=== PATIENT | female | born 1965 | race Caucasian/White ===

== ENCOUNTER 2024-08-16 13:36 | Emergency (ER) | payer OTHER, MEDICARE, SELFPAY ==
[2024-08-16 13:37] VITALS: BP 106/74; PULSE 87; RESP 20; TEMP 36.6; O2SAT 98
--- NOTE | 2024-08-16 13:55 | ED_ITS ---
HPI - Female Genitourinary General Chief complaint: Urogenital-Female Stated complaint: UTI Time Seen by Provider: 08/16/24 13:41 History of Present Illness HPI Narrative: 4 years old white female came from home by ambulance because of increased frequency of urination and not feeling well. She denies any fever, chills, nausea, vomiting, abdominal pain, chest pain or back pain. History of recurrent urinary tract infection, last 1 was 3 weeks ago. Related Data Home Medications Medication Instructions Recorded Confirmed Dexcom G7 Sensor 12/04/23 08/16/24 acetaminophen 500 mg tablet 500 mg PO Q4H PRN Mild Pain (Scale 12/04/23 08/16/24 Score 1-4) amlodipine 5 mg tablet 5 mg PO DAILY 12/04/23 12/04/23 apixaban 5 mg tablet 5 mg PO BID 12/04/23 08/16/24 aspirin 81 mg tablet,delayed 81 mg PO DAILY 12/04/23 08/16/24 release atorvastatin 20 mg tablet 20 mg PO DAILY 12/04/23 08/16/24 bisacodyl 10 mg rectal suppository 10 mg RECTAL DAILY PRN Constipation 12/04/23 08/16/24 calcium 500 mg (as 2 tablet PO BID 12/04/23 08/16/24 carbonate)-vitamin D3 5 mcg (200 unit) tablet (Calcium 500 + D) cyanocobalamin (vitamin B-12) 1,000 mcg IM MONTHLY 12/04/23 08/16/24 cyclobenzaprine 5 mg tablet 10 mg PO BID PRN Muscle Spasms 12/04/23 08/16/24 duloxetine 60 mg capsule,delayed 60 mg PO DAILY 12/04/23 08/16/24 release ergocalciferol (vitamin D2) 25,000 2 unit PO WEEKLY 12/04/23 08/16/24 unit capsule furosemide 20 mg tablet 20 mg PO DAILY 12/04/23 12/04/23 insulin glargine 100 unit/mL 30 unit subcut HS 12/04/23 08/16/24 subcutaneous solution insulin lispro 100 unit/mL 7 unit subcut TIDWMEAL 12/04/23 08/16/24 subcutaneous solution levothyroxine 125 mcg tablet 125 mcg PO DAILY 12/04/23 08/16/24 naloxone 4 mg/actuation nasal spray 1 spray intranasal Q3M PRN Opioid 12/04/23 08/16/24 Reversal omeprazole 20 mg capsule,delayed 20 mg PO DAILY 12/04/23 12/04/23 release potassium chloride 20 mEq 20 meq PO DAILY 12/04/23 08/16/24 tablet,extended release pregabalin 75 mg capsule 75 mg PO BID 12/04/23 08/16/24 rizatriptan 10 mg tablet 10 mg PO ONCE PRN Migraine Headache 12/04/23 08/16/24 ropinirole 0.25 mg tablet 0.25 mg PO DAILY 12/04/23 08/16/24 sacubitril 24 mg-valsartan 26 mg 1 tablet PO BID 12/04/23 08/16/24 tablet (Entresto) white petrolatum-mineral oil eye 1 applic EACH EYE HS 12/04/23 08/16/24 ointment Allergies Allergy/AdvReac Type Severity Reaction Status Date / Time acetaminophen Allergy Vomiting Verified 08/16/24 13:43 baclofen Allergy Nausea Verified 08/16/24 13:43 nitrofurantoin Allergy Nausea and Verified 08/16/24 13:43 Vomiting prochlorperazine Allergy Unknown Verified 08/16/24 13:43 propoxyphene Allergy Vomiting Verified 08/16/24 13:43 Sulfa (Sulfonamide Allergy Other Verified 08/16/24 13:43 Antibiotics) sulfanilamide Allergy Unknown Verified 08/16/24 13:43 sumatriptan Allergy Diarrhea Verified 08/16/24 13:43 tizanidine Allergy Hallucinati Verified 08/16/24 13:43 ng tramadol Allergy Unknown Verified 08/16/24 13:43 trazodone Allergy Other Verified 08/16/24 13:43 amitriptyline AdvReac Nightmare Verified 08/16/24 13:43 REPLACED BY [facility] Social History Social History Smoking status: Former smoker Tobacco type: cigarettes Second hand tobacco smoke exposure: No Alcohol intake: former Substance use type: prescription drug Do You Feel Safe in your Home?: Yes Lack of Transportation: No Lack of Food: Never True Current Housing: I Have Housing Concerned About Future Housing: No Difficulty Paying Gas/Electric Bills: No Difficulty Paying for Meds: No Currently Unemployed: No Education: High School Diploma/GED Difficulty w/ Childcare or Family Care: No Spiritual care concerns: No Course Vital Signs Vital signs: Vital Signs Temperature 36.6 C 08/16/24 13:37 Pulse Rate 87 08/16/24 13:37 Respiratory Rate 20 08/16/24 13:37 Blood Pressure 106/74 08/16/24 13:37 Pulse Oximetry 98 08/16/24 13:37 Oxygen Delivery Nasal Cannula 08/16/24 13:37 Oxygen Flow Rate 2 08/16/24 13:37 Temperature 36.6 C 08/16/24 13:37 Pulse Rate 87 08/16/24 13:37 Respiratory Rate 20 08/16/24 13:37 Blood Pressure 106/74 08/16/24 13:37 Pulse Oximetry 98 08/16/24 13:37 Oxygen Delivery Nasal Cannula 08/16/24 13:37 Oxygen Flow Rate 2 08/16/24 13:37 MDM - Female Genitourinary MDM Narrative Medical decision making narrative: patient presents with frequent urination, no nausea or vomiting or fever Vital signs on arrival are stable Physical examination is insignificant Differential diagnosis urinary tract infection Urinalysis came back positive for urinary tract infection, patient received Cipro 500 mg p.o. prior to discharge, discharged on Cipro 500 b.i.d. for 5 days. The pt was discharged to home.the pt,s condition upon discharge was fair,education was provided to the pt in reference to the final impression,discharge study results,treatment,prognosis and need for follow up . Differential Diagnosis Differential diagnosis: Likely other (As above) Medical Records Attestation: I reviewed the patient's medical records. Lab Data Attestation: I reviewed the patient's lab results. Labs: Lab Results 08/16/24 Range/Units 14:14 Urine Color Light yellow (Yellow) Urine Appearance Clear (Clear) Urine pH 6.0 (5.0-8.0) Ur Specific [place] <= 1.005 L (1.010-1.020) Urine Protein Negative (Negative) Urine Glucose (UA) 3+ H (Negative) Urine Ketones Negative (Negative) Ur Blood (Man) Negative (Negative) Urine Nitrate Positive H (Negative) Urine Bilirubin Negative (Negative) Urine Urobilinogen 0.2 (0.2-1.0) mg/dL Leukocyte Esterase Rfl Negative (Negative) ADELA/UL Urine RBC None seen (0-2) /hpf Urine WBC 4-6 H (0-3) /hpf Ur Squamous Epith Cells Few (Few) /hpf Urine Bacteria 3+ H (None) /hpf Critical Care Time Critical Care Time Critical Care Time: No Discharge Plan Discharge Clinical Impression: Urinary tract infection Patient Disposition: Home, Self-Care Condition: Stable Instructions: Antibiotic Form, Acute Urinary Retention in Women (ED) Additional Instructions: Return if symptoms are worsening , call your family physician for appointment, take Tylenol as as needed for aches and pain, continue home medications. Do not to remove your oxygen supplement during walking to the bathroom Prescriptions: New ciprofloxacin HCl [Cipro] 500 mg tablet 500 mg PO Q12H Qty: 10 0RF No Action atorvastatin 20 mg Tablet 20 mg PO DAILY insulin glargine 100 unit/mL Solution 30 unit SUBCUT HS white petrolatum-mineral oil Ointment 1 applic EACH EYE HS rizatriptan 10 mg Tablet 10 mg PO ONCE MDD 30mg PRN (Reason: Migraine Headache) Rx Instructions: as a single dose. May repeat in 2 hours if unresolved. amlodipine 5 mg Tablet 5 mg PO DAILY aspirin 81 mg Tablet,Delayed Release (Dr/Ec) 81 mg PO DAILY acetaminophen 500 mg Tablet 500 mg PO Q4H PRN (Reason: Mild Pain (Scale Score 1-4)) ropinirole 0.25 mg Tablet 0.25 mg PO DAILY bisacodyl 10 mg Suppository 10 mg RECTAL DAILY PRN (Reason: Constipation) levothyroxine 125 mcg Tablet 125 mcg PO DAILY omeprazole 20 mg Capsule,Delayed Release(Dr/Ec) 20 mg PO DAILY furosemide 20 mg Tablet 20 mg PO DAILY insulin lispro 100 unit/mL Solution 7 unit SUBCUT TIDWMEAL Rx Instructions: sliding scale ergocalciferol (vitamin D2) 25,000 unit Capsule 2 unit PO WEEKLY cyclobenzaprine 5 mg Tablet 10 mg PO BID PRN (Reason: Muscle Spasms) duloxetine 60 mg Capsule,Delayed Release(Dr/Ec) 60 mg PO DAILY calcium carbonate-vitamin D3 [Calcium 500 + D] 500 mg-5 mcg (200 unit) Tablet 2 tablet PO BID pregabalin 75 mg Capsule 75 mg PO BID apixaban 5 mg Tablet 5 mg PO BID potassium chloride 20 mEq Tablet Extended Release 20 meq PO DAILY Entresto 24-26 mg Tablet 1 tablet PO BID naloxone 4 mg/actuation [place],Non-Aerosol 1 spray INTRANASAL Q3M PRN (Reason: Opioid Reversal) Rx Instructions: spray 1 dose into ONE nostril; alternate nostrils w each dose until help arrives cyanocobalamin (vitamin B-12) 1,000 mcg IM MONTHLY (DME) Dexcom G7 Sensor Rx Instructions: Change every 10 days lidocaine [Lidocaine Pain Relief] 4 % Adhesive Patch,Medicated 1 patch transdermal DAILY Qty: 0 0RF docusate sodium 100 mg Capsule 100 mg PO Q12HR Qty: 0 0RF ondansetron 4 mg Tablet,Disintegrating 4 mg PO Q6H PRN (Reason: Nausea And Vomiting) Qty: 0 0RF fentanyl 75 mcg/hr Patch 72 Hour 1 patch TRANSDERMAL Q72H Qty: 5 0RF Rx Instructions: quantity: five (5) oxycodone 5 mg Tablet 15 mg PO Q6H PRN (Reason: Severe Pain (Scale Score 7-10)) Qty: 20 0RF Rx Instructions: quantity: twenty (20) Follow-up/Referrals: Lis,MD Juni [Primary Care Provider] -
[2024-08-16 14:23] LABS: Add Urine Microscopic? YES; Appearance Urine Clear (Clear); Bilirubin Urine Negative (Negative); Blood Urine Negative (Negative); Color Urine Light Yellow (Yellow); Glucose Urine UA 3+ (Negative); Ketones Urine Negative (Negative); Leukocyte Esterase Ur Negative LEU/UL (Negative); Nitrate Urine Positive (Negative); Protein Urine Negative (Negative); Specific Grav Ur <= 1.005 (1.010-1.020); Urobilinogen Urine 0.2 mg/dL (0.2-1.0)
[2024-08-16 14:27] LABS: RBC Urine None seen /hpf (0-2)
[2024-08-16 14:28] LABS: Bacteria Urine 3+ /hpf; Squamous Epithelial Cell Urine Few /hpf (Few)
[2024-08-16] MEDS: CIPROFLOXACIN 500 MG TAB PO (14:57)
[2024-08-16 14:58] VITALS: BP 105/83; PULSE 96; RESP 18; TEMP 36.7; O2SAT 98
--- NOTE | 2024-08-18 12:40 | PC.NURSE ---
preliminary urine culture result Isolate 1: Greater than 100,000 CFU/ml of Klebsiella aerogenes (Enterobacter) per Dr. Mortensen to await C&S
--- NOTE | 2024-08-19 13:08 | PC.NURSE ---
ucc reviewed. pt started on cipro , no changes needed per dr cobos
== END 2024-08-16 15:00 | disposition home or self-care (01) ==
PROVIDERS: Emergency Provider Emergency Medicine; PCP Internal Medicine
DX: N39.0 Urinary tract infection, site not specified (principal); Z87.891 Personal history of nicotine dependence
CPT/HCPCS: 81001; 87077; 87086; 87088; 87186; 99283; A9270

== ENCOUNTER 2024-08-22 12:10 | Emergency (ER) | payer OTHER, MEDICARE, SELFPAY ==
[2024-08-22] VITALS (50 sets, daily range): BP systolic 90–126; BP diastolic 65–109; PULSE 85–108; RESP 13–32; TEMP 36.4–36.6; O2SAT 97–100
--- NOTE | ~2024-08-22 | CT_ITS ---
Non-contrast Head CT History: Weakness COMPARISON: 10/31/2020 Technique: Axial non-contrast imaging of the brain was performed. Dose reduction technique was used on this scan by utilizing automated exposure control and iterative reconstruction technique. The dose -length product (DLP) was 605.33 mGy-cm. Findings: There is no evidence of intracranial hemorrhage, mass lesion, or acute infarct. Brain par enchyma appears normal. The ventricles and subarachnoid spaces are normal in size. The calvarium ap pears normal. The visualized paranasal sinuses and mastoid air cells are clear. Impression: No significant abnormality seen. Reviewed, dictated and finalized at location . [facility] Impression: No significant abnormality seen.
--- NOTE | ~2024-08-22 | XR_ITS ---
Portable chest x-ray Comparison: 10/04/2022 Clinical History: Cough, weakness Findings: Low lung volumes. No definite acute pulmonary abnormality. Cardiomediastinal silhouette i s stable, with pacemaker device. There is multilevel vertebroplasty throughout the thoracic spine. Th ere is thoracolumbar spinal fixation hardware. Impression: Clear lungs. Extensive thoracolumbar spinal fixation hardware, an apparent multilevel vertebroplasty throughout th e mid to lower thoracic spine. Reviewed, dictated and finalized at location M. OND SORTER Impression: Clear lungs. Extensive thoracolumbar spinal fixation hardware, an apparent multilevel verteb roplasty throughout the mid to lower thoracic spine.
--- NOTE | 2024-08-22 12:15 | ECG_ITS ---
Test Date: 2024-08-22 12:45:08 Measurements Intervals [place] Rate: 89 P: 21 PA: 130 QRS: -8 QRSD: 83 T: 56 QT: 347 QTc: 424 Interpretive Statements SINUS RHYTHM WITH OCCASIONAL SUPRAVENTRICULAR PREMATURE COMPLEXES VOLTAGE CRITERIA FOR LVH NONSPECIFIC T-WAVE ABNORMALITY- DIFFUSE LEADS BASELINE ARTIFACT- I, II, III, AVR, AVL, AVF BORDERLINE ECG No previous ECG available for comparison Electronically Signed On 08-22-2024 18:24:16 PATTERN CHART WRITER by Rafat Cruz D.O.
--- NOTE | 2024-08-22 12:15 | ED_ITS ---
HPI - General Adult General Chief complaint: Weakness Stated complaint: weak, sob Time Seen by Provider: 08/22/24 12:14 History of Present Illness HPI narrative: Daisy is a 58F with a PMH of DMII, osteoporosis, GERD, HypoT, HLD, HTN, Afib, CHF s/p ICD on chronic oxygen, compression fracture neuroendocrine tumor in the liver, recent right hip fracture, and a recent UTI that presented to the ED via EMS with weakness. She woke up with general fatigue, weakness and had some nausea. She just finished her antibiotics for her UTI. No CP or lightheadedness. She also started a new pain patch today as well. Related Data Home Medications Medication Instructions Recorded Confirmed Dexcom G7 Sensor 12/04/23 08/22/24 acetaminophen 500 mg tablet 500 mg PO Q4H PRN Mild Pain (Scale 12/04/23 08/22/24 Score 1-4) amlodipine 5 mg tablet 5 mg PO DAILY 12/04/23 08/22/24 apixaban 5 mg tablet 5 mg PO BID 12/04/23 08/22/24 aspirin 81 mg tablet,delayed 81 mg PO DAILY 12/04/23 08/22/24 release atorvastatin 20 mg tablet 20 mg PO DAILY 12/04/23 08/22/24 bisacodyl 10 mg rectal suppository 10 mg RECTAL DAILY PRN Constipation 12/04/23 08/22/24 calcium 500 mg (as 2 tablet PO BID 12/04/23 08/22/24 carbonate)-vitamin D3 5 mcg (200 unit) tablet (Calcium 500 + D) cyanocobalamin (vitamin B-12) 1,000 mcg IM MONTHLY 12/04/23 08/22/24 cyclobenzaprine 5 mg tablet 10 mg PO BID PRN Muscle Spasms 12/04/23 08/22/24 duloxetine 60 mg capsule,delayed 60 mg PO DAILY 12/04/23 08/22/24 release ergocalciferol (vitamin D2) 25,000 2 unit PO WEEKLY 12/04/23 08/22/24 unit capsule furosemide 20 mg tablet 20 mg PO DAILY 12/04/23 08/22/24 insulin glargine 100 unit/mL 30 unit subcut HS 12/04/23 08/22/24 subcutaneous solution insulin lispro 100 unit/mL 7 unit subcut TIDWMEAL 12/04/23 08/22/24 subcutaneous solution levothyroxine 125 mcg tablet 125 mcg PO DAILY 12/04/23 08/22/24 naloxone 4 mg/actuation nasal spray 1 spray intranasal Q3M PRN Opioid 12/04/23 08/22/24 Reversal omeprazole 20 mg capsule,delayed 20 mg PO DAILY 12/04/23 08/22/24 release potassium chloride 20 mEq 20 meq PO DAILY 12/04/23 08/22/24 tablet,extended release pregabalin 75 mg capsule 75 mg PO BID 12/04/23 08/22/24 rizatriptan 10 mg tablet 10 mg PO ONCE PRN Migraine Headache 12/04/23 08/22/24 ropinirole 0.25 mg tablet 0.25 mg PO DAILY 12/04/23 08/22/24 sacubitril 24 mg-valsartan 26 mg 1 tablet PO BID 12/04/23 08/22/24 tablet (Entresto) white petrolatum-mineral oil eye 1 applic EACH EYE HS 12/04/23 08/22/24 ointment Allergies Allergy/AdvReac Type Severity Reaction Status Date / Time acetaminophen Allergy Vomiting Verified 08/22/24 12:26 baclofen Allergy Nausea Verified 08/22/24 12:26 nitrofurantoin Allergy Nausea and Verified 08/22/24 12:26 Vomiting prochlorperazine Allergy Unknown Verified 08/22/24 12:26 propoxyphene Allergy Vomiting Verified 08/22/24 12:26 Sulfa (Sulfonamide Allergy Other Verified 08/22/24 12:26 Antibiotics) sulfanilamide Allergy Unknown Verified 08/22/24 12:26 sumatriptan Allergy Diarrhea Verified 08/22/24 12:26 tizanidine Allergy Hallucinati Verified 08/22/24 12:26 ng tramadol Allergy Unknown Verified 08/22/24 12:26 trazodone Allergy Other Verified 08/22/24 12:26 amitriptyline AdvReac Nightmare Verified 08/22/24 12:26 Review of Systems Review of Systems: All systems reviewed & are unremarkable except as noted in HPI and below [facility] Social History Social History Smoking status: Former smoker Tobacco type: cigarettes Second hand tobacco smoke exposure: No Alcohol intake: former Substance use type: prescription drug Do You Feel Safe in your Home?: Yes Lack of Transportation: No Lack of Food: Never True Current Housing: I Have Housing Concerned About Future Housing: No Difficulty Paying Gas/Electric Bills: No Difficulty Paying for Meds: No Currently Unemployed: No Education: High School Diploma/GED Difficulty w/ Childcare or Family Care: No Spiritual care concerns: No Exam Const: General: cooperative, healthy appearing, comfortable, no acute distress, well developed, alert, awake and Physically active Orientation/consciousness: oriented to person, oriented to place and oriented to time HENMT: Head: normal to inspection, normocephalic and atraumatic Ears: hearing grossly normal bilaterally and external ears normal Face/Nose/Sinus: Normal external nose present Eyes: General: appearance normal, both eyes and all related structures Periorbital: periorbital findings normal Sclera: sclerae normal Pupils: Equal, round and reactive pupils present Neck: Neck: normal visual inspection Chest: Chest palpation & inspection: normal inspection of the chest Resp: Effort & Inspection: normal respiratory effort, able to speak in complete sentences and no respiratory distress Auscultation: clear to auscultation bilaterally Cardio: Jugular venous distension: no JVD Rate: regular rate Rhythm: regular rhythm GI: Inspection: normal to inspection GI Palp: Yes Soft to palpation Auscultation: normal bowel sounds Skin: General skin exam: normal color and no rashes or lesions noted Neuro: General: oriented to person, oriented to place and oriented to time Cranial nerves: Yes Equal, round and reactive pupils present Extrem: General: normal to inspection Course Course Emergency Course: EKG showed NSR with a rate of 89, LAD, poor T wave progression and frequent PVC Portable chest x-ray Comparison: 10/04/2022 Clinical History: Cough, weakness Findings: Low lung volumes. No definite acute pulmonary abnormality. Cardiomediastinal silhouette is stable, with pacemaker device. There is mul tilevel vertebroplasty throughout the thoracic spine. There is thoracolumbar spinal fixation hardware. Impression: Clear lungs. Extensive thoracolumbar spinal fixation hardware, an apparent multilevel vertebroplasty throughout the mid to lower thoracic spine. Non-contrast Head CT History: Weakness COMPARISON: 10/31/2020 Technique: Axial non-contrast imaging of the brain was performed. Dose redu ction technique was used on this scan by utilizing automated exposure control and iterative reconstruction technique. The dose-length product (DLP) was 605.33 mGy-cm. Findings: There is no evidence of intracranial hemorrhage, mass lesion, or acute infarct. Brain parenchyma appears normal. The ventricles and subarachnoid spaces are normal in size. The calvarium appears normal. The visualized paranasal sinuses and mastoid air cells are clear. Impression: No significant abnormality seen. Discussed case with Dr. Lambert at 1520. He wants to contact cardiology for accepting as well as discuss fluids with lactic acidosis vs elevated BNP/troponin. They later called back and stated they accepted the patient. Patients glucose dropped to 80 and she started to experience signs of hypoglycemia so D5 was started. She was transferred to [facility] for Cardiology and a higher level of care. Vital Signs Vital signs: Vital Signs Temperature 97.6 F 08/22/24 12:22 Pulse Rate 88 08/22/24 12:22 Respiratory Rate 21 H 08/22/24 12:22 Blood Pressure 90/78 L 08/22/24 12:22 Pulse Oximetry 98 08/22/24 12:22 Oxygen Delivery Nasal Cannula 08/22/24 12:22 Oxygen Flow Rate 3 08/22/24 12:22 Temperature 97.8 F 08/22/24 19:15 Pulse Rate 108 H 08/22/24 22:00 Respiratory Rate 16 08/22/24 19:59 Blood Pressure 110/91 H 08/22/24 19:15 Pulse Oximetry 98 08/22/24 19:59 Oxygen Delivery Nasal Cannula 08/22/24 19:15 Oxygen Flow Rate 3 08/22/24 19:15 Medical Decision Making Vital Signs Vital Signs: Vital Signs Temperature 97.6 F 08/22/24 12:22 Pulse Rate 88 08/22/24 12:22 Respiratory Rate 21 H 08/22/24 12:22 Blood Pressure 90/78 L 08/22/24 12:22 Pulse Oximetry 98 08/22/24 12:22 Oxygen Delivery Nasal Cannula 08/22/24 12:22 Oxygen Flow Rate 3 08/22/24 12:22 Temperature 97.8 F 08/22/24 19:15 Pulse Rate 108 H 08/22/24 22:00 Respiratory Rate 16 08/22/24 19:59 Blood Pressure 110/91 H 08/22/24 19:15 Pulse Oximetry 98 08/22/24 19:59 Oxygen Delivery Nasal Cannula 08/22/24 19:15 Oxygen Flow Rate 3 08/22/24 19:15 Lab Data 08/22/24 12:51 08/22/24 12:51 Labs: Lab Results 08/22/24 08/22/24 08/22/24 Range/Units 12:51 17:03 18:16 WBC 10.6 (4.8-10.8) K/mm3 RBC 4.43 (4.20-5.40) M/mm3 Hgb 8.9 L (12.0-15.0) g/dL Hct 33.4 L (35.0-49.0) % MCV 75.4 L (78.0-102.0) fL MCH 20.1 L (27.0-31.0) pg MCHC 26.6 L (32-36) g/dL RDW 20.6 H (11.6-14.4) % Plt Count 578 H (150-420) K/mm3 MPV 9.4 (9.2-11.8) fl Immature Gran % (Auto) 2.1 H (0.0-0.0) % Neut % (Auto) 73.8 H (50.0-70.0) % Lymph % (Auto) 14.2 L (18.0-42.0) % Lewis % (Auto) 8.8 (2.0-11.0) % Eos % (Auto) 0.6 L (1.0-6.0) % Baso % (Auto) 0.5 (0.0-1.0) % Lymph # (Auto) 1.50 (1.10-4.50) K/mm3 Lewis # (Auto) 0.93 H (0.10-0.90) K/mm3 Eos # (Auto) 0.06 (0.02-0.50) K/mm3 Baso # (Auto) 0.05 (0.00-0.10) K/mm3 Abs Immat Gran (auto) 0.22 H (0.00-0.00) K/mm3 Absolute Neuts (auto) 7.84 H (1.70-7.20) K/mm3 Absolute Nucleated RBC 0.12 H (0.00-0.00) K/mm3 Nucleated RBC % 1.1 H (0-0.0) % % Immature Plt Fraction 2.8 (1.0-7.0) % Sodium 147 H (136-145) mmol/L Potassium 3.7 (3.5-5.1) mmol/L Chloride 105 (98-108) mmol/L Carbon Dioxide 33 H (21-32) mmol/L Anion Gap 9 (4-12) mmol/L BUN 18 (7-18) mg/dL Creatinine 0.71 (0.55-1.02) mg/dL Estim Creat Clear Calc 60 ml/min Estimated GFR > 60 (59 - ) Glucose 147 H (70-99) mg/dL POC Capillary Glucose 87 (65-105) mg/dl Calculated Osmolality 308 H (285-295) mOsm/kg Lactic Acid 3.0 H 2.0 (0.4-2.0) mmol/L Calcium 9.0 (8.5-10.1) mg/dL Magnesium 2.2 (1.8-2.4) mg/dL Total Bilirubin 0.4 (0.00-1.00) mg/dL AST 11 L (15-37) U/L ALT 32 (14-59) U/L Alkaline Phosphatase 108 (46-116) U/L Troponin I 126.8 H* (0.00-60.4) ng/L NT-Pro-B Natriuret Pep 1683 H (0-125) pg/mL Total Protein 6.7 (6.4-8.2) g/dL Albumin 3.7 (3.4-5.0) g/dL TSH 0.13 L (0.36-3.74) uIU/mL Urine Color Light yellow (Yellow) Urine Appearance Cloudy A (Clear) Urine pH 7.0 (5.0-8.0) Ur Specific [place] 1.010 (1.010-1.020) Urine Protein Negative (Negative) Urine Glucose (UA) 3+ H (Negative) Urine Ketones Negative (Negative) Ur Blood (Man) Negative (Negative) Urine Nitrate Negative (Negative) Urine Bilirubin Negative (Negative) Urine Urobilinogen 0.2 (0.2-1.0) mg/dL Leukocyte Esterase Rfl 1+ H (Negative) ADELA/UL Urine WBC 7-9 H (0-3) /hpf Urine WBC Clumps Present H (None) /hpf Ur Squamous Epith Cells Few (Few) /hpf Amorphous Sediment Moderate H (None) Urine Bacteria 1+ H (None) /hpf Influenza A (RT-PCR) Negative (Negative) Influenza B (RT-PCR) Negative (Negative) RSV (RT-PCR) Negative (Negative) SARS-CoV-2 RNA (RT-PCR) Negative (Negative) 08/22/24 Range/Units 21:59 WBC (4.8-10.8) K/mm3 RBC (4.20-5.40) M/mm3 Hgb (12.0-15.0) g/dL Hct (35.0-49.0) % MCV (78.0-102.0) fL MCH (27.0-31.0) pg MCHC (32-36) g/dL RDW (11.6-14.4) % Plt Count (150-420) K/mm3 MPV (9.2-11.8) fl Immature Gran % (Auto) (0.0-0.0) % Neut % (Auto) (50.0-70.0) % Lymph % (Auto) (18.0-42.0) % Lewis % (Auto) (2.0-11.0) % Eos % (Auto) (1.0-6.0) % Baso % (Auto) (0.0-1.0) % Lymph # (Auto) (1.10-4.50) K/mm3 Lewis # (Auto) (0.10-0.90) K/mm3 Eos # (Auto) (0.02-0.50) K/mm3 Baso # (Auto) (0.00-0.10) K/mm3 Abs Immat Gran (auto) (0.00-0.00) K/mm3 Absolute Neuts (auto) (1.70-7.20) K/mm3 Absolute Nucleated RBC (0.00-0.00) K/mm3 Nucleated RBC % (0-0.0) % % Immature Plt Fraction (1.0-7.0) % Sodium (136-145) mmol/L Potassium (3.5-5.1) mmol/L Chloride (98-108) mmol/L Carbon Dioxide (21-32) mmol/L Anion Gap (4-12) mmol/L BUN (7-18) mg/dL Creatinine (0.55-1.02) mg/dL Estim Creat Clear Calc ml/min Estimated GFR (59 - ) Glucose (70-99) mg/dL POC Capillary Glucose 105 (65-105) mg/dl Calculated Osmolality (285-295) mOsm/kg Lactic Acid (0.4-2.0) mmol/L Calcium (8.5-10.1) mg/dL Magnesium (1.8-2.4) mg/dL Total Bilirubin (0.00-1.00) mg/dL AST (15-37) U/L ALT (14-59) U/L Alkaline Phosphatase (46-116) U/L Troponin I (0.00-60.4) ng/L NT-Pro-B Natriuret Pep (0-125) pg/mL Total Protein (6.4-8.2) g/dL Albumin (3.4-5.0) g/dL TSH (0.36-3.74) uIU/mL Urine Color (Yellow) Urine Appearance (Clear) Urine pH (5.0-8.0) Ur Specific [place] (1.010-1.020) Urine Protein (Negative) Urine Glucose (UA) (Negative) Urine Ketones (Negative) Ur Blood (Man) (Negative) Urine Nitrate (Negative) Urine Bilirubin (Negative) Urine Urobilinogen (0.2-1.0) mg/dL Leukocyte Esterase Rfl (Negative) ADELA/UL Urine WBC (0-3) /hpf Urine WBC Clumps (None) /hpf Ur Squamous Epith Cells (Few) /hpf Amorphous Sediment (None) Urine Bacteria (None) /hpf Influenza A (RT-PCR) (Negative) Influenza B (RT-PCR) (Negative) RSV (RT-PCR) (Negative) SARS-CoV-2 RNA (RT-PCR) (Negative) Discharge Plan Discharge Clinical Impression: Non-ST elevation MN (NSTEMI) Patient Disposition: Acute Care Hospital Condition: Serious Prescriptions: No Action ciprofloxacin HCl [Cipro] 500 mg tablet 500 mg PO Q12H Qty: 10 0RF atorvastatin 20 mg Tablet 20 mg PO DAILY insulin glargine 100 unit/mL Solution 30 unit SUBCUT HS white petrolatum-mineral oil Ointment 1 applic EACH EYE HS rizatriptan 10 mg Tablet 10 mg PO ONCE MDD 30mg PRN (Reason: Migraine Headache) Rx Instructions: as a single dose. May repeat in 2 hours if unresolved. amlodipine 5 mg Tablet 5 mg PO DAILY aspirin 81 mg Tablet,Delayed Release (Dr/Ec) 81 mg PO DAILY acetaminophen 500 mg Tablet 500 mg PO Q4H PRN (Reason: Mild Pain (Scale Score 1-4)) ropinirole 0.25 mg Tablet 0.25 mg PO DAILY bisacodyl 10 mg Suppository 10 mg RECTAL DAILY PRN (Reason: Constipation) levothyroxine 125 mcg Tablet 125 mcg PO DAILY omeprazole 20 mg Capsule,Delayed Release(Dr/Ec) 20 mg PO DAILY furosemide 20 mg Tablet 20 mg PO DAILY insulin lispro 100 unit/mL Solution 7 unit SUBCUT TIDWMEAL Rx Instructions: sliding scale ergocalciferol (vitamin D2) 25,000 unit Capsule 2 unit PO WEEKLY cyclobenzaprine 5 mg Tablet 10 mg PO BID PRN (Reason: Muscle Spasms) duloxetine 60 mg Capsule,Delayed Release(Dr/Ec) 60 mg PO DAILY calcium carbonate-vitamin D3 [Calcium 500 + D] 500 mg-5 mcg (200 unit) Tablet 2 tablet PO BID pregabalin 75 mg Capsule 75 mg PO BID apixaban 5 mg Tablet 5 mg PO BID potassium chloride 20 mEq Tablet Extended Release 20 meq PO DAILY Entresto 24-26 mg Tablet 1 tablet PO BID naloxone 4 mg/actuation [place],Non-Aerosol 1 spray INTRANASAL Q3M PRN (Reason: Opioid Reversal) Rx Instructions: spray 1 dose into ONE nostril; alternate nostrils w each dose until help arrives cyanocobalamin (vitamin B-12) 1,000 mcg IM MONTHLY (DME) Dexcom G7 Sensor Rx Instructions: Change every 10 days lidocaine [Lidocaine Pain Relief] 4 % Adhesive Patch,Medicated 1 patch transdermal DAILY Qty: 0 0RF docusate sodium 100 mg Capsule 100 mg PO Q12HR Qty: 0 0RF ondansetron 4 mg Tablet,Disintegrating 4 mg PO Q6H PRN (Reason: Nausea And Vomiting) Qty: 0 0RF fentanyl 75 mcg/hr Patch 72 Hour 1 patch TRANSDERMAL Q72H Qty: 5 0RF Rx Instructions: quantity: five (5) oxycodone 5 mg Tablet 15 mg PO Q6H PRN (Reason: Severe Pain (Scale Score 7-10)) Qty: 20 0RF Rx Instructions: quantity: twenty (20) Follow-up/Referrals: Lis,MD Juni [Primary Care Provider] -
--- NOTE | 2024-08-22 12:20 | PC.NURSE ---
Patient has pain patch on left shoulder of buprenorphine 10mcg/hr, ERP made aware, asked for it to be removed. RN has removed patch and disposed of appropriately.
--- NOTE | 2024-08-22 12:27 | PC.NURSE ---
Patient being taken to CT.
[2024-08-22 13:03] LABS: Basophils Absolute Auto 0.05 K/mm3 (0.00-0.10); Basophils Percent Auto 0.5 % (0.0-1.0); Eosinophils Absolute Auto 0.06 K/mm3 (0.02-0.50); Eosinophils Percent Auto 0.6 % (1.0-6.0); Hematocrit 33.4 % (35.0-49.0); Hemoglobin 8.9 g/dL (12.0-15.0); Immature Granulocyte Absolute 0.22 K/mm3 (0.00-0.00); Immature Granulocyte Percent A 2.1 % (0.0-0.0); Immature Platelet Fraction Pct 2.8 % (1.0-7.0); Lymphocytes Percent Auto 14.2 % (18.0-42.0); Mean Corpuscular HGB Conc 26.6 g/dL (32-36); Mean Corpuscular Hemoglobin 20.1 pg (27.0-31.0); Mean Corpuscular Volume 75.4 fL (78.0-102.0); Mean Platelet Volume 9.4 fl (9.2-11.8); Monocytes Absolute Auto 0.93 K/mm3 (0.10-0.90); Monocytes Percent Auto 8.8 % (2.0-11.0); Neutrophils Absolute Auto 7.84 K/mm3 (1.70-7.20); Neutrophils Percent Auto 73.8 % (50.0-70.0); Nucleated Red Blood Cells Absolute Auto 0.12 K/mm3 (0.00-0.00); Nucleated Red Blood Cells Perc 1.1 % (0-0.0); Platelet Count Result 578 K/mm3 (150-420); Red Blood Count 4.43 M/mm3 (4.20-5.40); Red Cell Distribution Width 20.6 % (11.6-14.4); White Blood Count 10.6 K/mm3 (4.8-10.8)
--- NOTE | 2024-08-22 13:04 | PC.NURSE ---
lab did covid culture swab
[2024-08-22 13:15] LABS: Add Urine Microscopic? YES; Bilirubin Urine Negative (Negative); Blood Urine Negative (Negative); Color Urine Light Yellow (Yellow); Glucose Urine UA 3+ (Negative); Ketones Urine Negative (Negative); Leukocyte Esterase Ur 1+ LEU/UL (Negative); Nitrate Urine Negative (Negative); Protein Urine Negative (Negative); Urobilinogen Urine 0.2 mg/dL (0.2-1.0)
[2024-08-22 13:24] LABS: Appearance Urine Cloudy (Clear); Squamous Epithelial Cell Urine Few /hpf (Few); WBC Clumps Urine Present /hpf
[2024-08-22 13:25] LABS: Amorphous Sediment Urine Moderate; Bacteria Urine 1+ /hpf
[2024-08-22 13:33] LABS: Alanine Aminotransferase 32 U/L (14-59); Albumin Level 3.7 g/dL (3.4-5.0); Alkaline Phosphatase 108 U/L (46-116); Anion Gap 9 mmol/L (4-12); Aspartate Amino Transferase 11 U/L (15-37); Bilirubin,Total 0.4 mg/dL (0.00-1.00); Blood Urea Nitrogen 18 mg/dL (7-18); Carbon Dioxide 33 mmol/L (21-32); Chloride 105 mmol/L (98-108); Estimated CRCL calculation 60 ml/min; Estimated Glomerular Filt Rate > 60; Glucose 147 mg/dL (70-99); Magnesium 2.2 mg/dL (1.8-2.4); NT Pro B Type Natriuretic Pept 1683 pg/mL (0-125); Osmolality Calculated 308 mOsm/kg (285-295); Potassium 3.7 mmol/L (3.5-5.1); Sodium 147 mmol/L (136-145); Thyroid Stimulating Hormone 0.13 uIU/mL (0.36-3.74); Total Protein 6.7 g/dL (6.4-8.2)
[2024-08-22 13:35] LABS: Troponin I 126.8 ng/L (0.00-60.4)
[2024-08-22 13:38] LABS: SARS-CoV-2 RNA PCR Negative (Negative)
[2024-08-22 13:42] LABS: Influenza A QL RT-PCR Negative (Negative); Influenza B QL RT-PCR Negative (Negative); RSV RNA, RT-PCR Negative (Negative)
[2024-08-22] MEDS: MIDODRINE HCL 2.5 MG TABLET 10 MG PO (14:05)
[2024-08-22 15:57] LABS: Reflex Lactic Acid Yes or No Add Lactic
[2024-08-22] MEDS: DEXTROSE 5% 1,000 ML 1,000 ML 100 ML IV CONT (17:56)
[2024-08-22] MEDS: oxyCODONE HCL (*CRX) 5 MG TAB IR PO ×2 (18:10→21:18)
[2024-08-22 18:19] LABS: Glucose Point of Care 87 mg/dl (65-105)
--- NOTE | 2024-08-22 19:15 | PC.NURSE ---
This RN completed hand off assessment of patient. Patient states that she is comfortable at this time, still feels icky and not well, but denies chest pain at this time. at bedside. Both were updated on plan of care and on waiting on bed assignment from [facility].
--- NOTE | 2024-08-22 20:58 | PC.NURSE ---
Spoke to pt's daughter, Ana De León . Gave her pt update. Told her pt was being transfered to [facility].
[2024-08-22 22:01] LABS: Glucose Point of Care 105 mg/dl (65-105)
--- NOTE | 2024-08-25 12:57 | PC.NURSE ---
spoke with omari at [facility] [place] [place] , informed of urine culture final result. result faxed to [facility] [place] [place] per request [phone]
== END 2024-08-22 22:40 | disposition short-term general hospital (02) ==
PROVIDERS: Emergency Provider Family Medicine; PCP Internal Medicine
DX: I21.4 Non-ST elevation (NSTEMI) myocardial infarction (principal); E11.9 Type 2 diabetes mellitus without complications; I11.0 Hypertensive heart disease with heart failure; I50.9 Heart failure, unspecified; E78.5 Hyperlipidemia, unspecified; I48.91 Unspecified atrial fibrillation; Z99.81 Dependence on supplemental oxygen; Z79.899 Other long term (current) drug therapy; Z79.4 Long term (current) use of insulin; Z87.891 Personal history of nicotine dependence; Z20.822 Contact with and (suspected) exposure to COVID-19
CPT/HCPCS: 36415; 70450; 71045; 80053; 81001; 82948; 83605; 83735; 83880; 84443; 84484; 85025; 85055; 87086; 87637; 93005; 96365; 96366; 99285; A9270; J7070

== ENCOUNTER 2024-08-30 14:04 | Inpatient (IN) | payer OTHER, MEDICARE, SELFPAY ==
[2024-08-30] VITALS (7 sets, daily range): BP systolic 117–128; BP diastolic 75–89; PULSE 45–95; RESP 16–18; TEMP 36–36.3; O2SAT 97–99; BMI 23.3
--- NOTE | 2024-08-30 14:26 | PC.NURSE ---
Patient arrived to unit in /, accompanied by patient's . Patient sent here from [facility] in [place] for swing bed program. Patient admitted to room 204 and was able to transfer from / to bed with 1 assist gaitbelt and walker. Patient and her educated on use of call light, bed controls, visiting hours, initiation of rapid response and general hospital policies. Both voiced understanding.
[2024-08-30 16:30] LABS: Glucose Point of Care 280 mg/dl (65-105)
--- NOTE | 2024-08-30 16:55 | PC.NURSE ---
Patient called telegraphic typewriter installer to the room stating that she is having chest pain. Pulse was irregular between 84 and 91, with known history of Afib. BP was 107/65. Patient was in no apparent distress and rated pain at 3 of 10. Quality Assurance Intern reassured patient that nurse didn't see anything alarming in VS and patient stated that the pain was already getting better. Will continue to monitor.
[2024-08-30] MEDS: ACETAMINOPHEN 325 MG TABLET 650 MG PO ×2 (17:23→23:23)
[2024-08-30 17:55] LABS: INR 2.7; Prothrombin Time 26.8 Seconds (9.50-12.1)
[2024-08-30] MEDS: PREGABALIN (*CRX) 50 MG CAPSULE PO (18:11)
[2024-08-30] MEDS: PREGABALIN (*CRX) 25 MG CAPSULE PO (18:12)
[2024-08-30] MEDS: PANTOPRAZOLE 40 MG TABLET PO (18:12)
[2024-08-30] MEDS: oxyCODONE HCL (*CRX) 5 MG TAB IR 10 MG PO ×2 (18:12→23:24)
[2024-08-30] MEDS: WARFARIN (*PBKC) 2 MG TABLET PO (18:38)
[2024-08-30] MEDS: SACUBITRIL/VALSARTAN 24-26 MG TABLET 1 TAB PO (21:14)
[2024-08-30] MEDS: rOPINIRole HCL 0.25 MG TABLET PO (21:15)
[2024-08-30] MEDS: CYCLOBENZAPRINE HCL 10 MG TABLET PO (21:15)
[2024-08-30 21:19] LABS: Glucose Point of Care 246 mg/dl (65-105)
[2024-08-31] MEDS: oxyCODONE HCL (*CRX) 5 MG TAB IR 10 MG PO ×5 (03:28→21:20)
[2024-08-31 05:02] VITALS: O2SAT 98
[2024-08-31] MEDS: ACETAMINOPHEN 325 MG TABLET 650 MG PO ×3 (05:31→17:00)
[2024-08-31] MEDS: LEVOTHYROXINE SODIUM 25 MCG TABLET PO (05:32)
[2024-08-31] MEDS: LEVOTHYROXINE SODIUM 100 MCG TABLET PO (05:33)
[2024-08-31 05:35] LABS: Hematocrit 29.6 % (35.0-49.0); Hemoglobin 7.8 g/dL (12.0-15.0); Mean Corpuscular HGB Conc 26.4 g/dL (32-36); Mean Corpuscular Hemoglobin 19.5 pg (27.0-31.0); Mean Platelet Volume 9.1 fl (9.2-11.8); Platelet Count Result 462 K/mm3 (150-420); Red Cell Distribution Width 19.6 % (11.6-14.4); White Blood Count 11.2 K/mm3 (4.8-10.8)
[2024-08-31 05:48] LABS: INR 2.4; Partial Thromboplastin Time 32.2 Sec (23.9-30.70); Prothrombin Time 24.5 Seconds (9.50-12.1)
[2024-08-31 05:50] LABS: Alanine Aminotransferase 63 U/L (14-59); Albumin Level 3.7 g/dL (3.4-5.0); Alkaline Phosphatase 110 U/L (46-116); Anion Gap 7 mmol/L (4-12); Aspartate Amino Transferase 26 U/L (15-37); Bilirubin,Total 0.5 mg/dL (0.00-1.00); Blood Urea Nitrogen 16 mg/dL (7-18); Calcium 8.7 mg/dL (8.5-10.1); Carbon Dioxide 34 mmol/L (21-32); Chloride 104 mmol/L (98-108); Estimated CRCL calculation 65 ml/min; Estimated Glomerular Filt Rate > 60; Glucose 286 mg/dL (70-99); Magnesium 2.3 mg/dL (1.8-2.4); Osmolality Calculated 311 mOsm/kg (285-295); Potassium 3.6 mmol/L (3.5-5.1); Sodium 145 mmol/L (136-145)
[2024-08-31 07:34] LABS: Glucose Point of Care 229 mg/dl (65-105)
[2024-08-31 07:43] VITALS: BP 121/83; PULSE 51; RESP 16; TEMP 36.2; O2SAT 97
--- NOTE | 2024-08-31 07:43 | P.HP_ITS ---
H&P: HPI History of Present Illness Date/Time: 08/31/24 07:43 Chief Complaint: weakness Narrative: This is a 58-year-old female with a past medical history significant for CHF, dilated cardiomyopathy, status post ICD placement, atrial fibrillation on Coumadin, CAD, hypertension, hyperlipidemia, GERD, continue esophagitis, anxiety, diabetes, neuroendocrine tumor of the liver, hypertension, and hypothyroidism who presented to an emergency room on 08/21 with complaints of shortness a breath. She was found have elevated troponin, BNP, and lactate and was [place] [facility] [place]. During that hospitalization it was found that she was taking dual beta-blockers ( Lopressor and Coreg). She was also found to have a severely reduced ejection fraction of 15-20% ( decreased from 33%). Cardiology felt that this was most likely advanced or stage D CHF. She had an angiogram in with only 20% circumflex lesion and no current clinical signs of ischemia this admission so therefore an angiogram was deferred. They recommended medical management with Entresto, Jardiance, and Lasix. Echo also showed an apical thrombus that developed while taking Eliquis. Patient was transitioned to warfarin via Lovenox bridge. During her hospitalization she worked with PT and OT who recommended further therapy services for weakness, balance and gait training. Because of this she was transferred to [facility] for swing bed therapy for further PT and OT with the discharge plan of returning home. On exam today she is on her baseline oxygen with her baseline dyspnea. She denies headache, dizziness, chest pain, abdominal pain, nausea, vomiting, or constipation. No subjective complaints of fever, chills, or body aches. She has irritable bowel syndrome. She has lower extremity edema. She says she is due for a vitamin B12 shot now. She has an ever so slightly increase white blood cell count of 11.2 (WBC 10.6 on 08/22) which will be monitored. She also has a chronic anemia with a stable hemoglobin of 7.8 g/dl. [facility] Past Medical History Medical History Anxiety Arthritis Atrial fib/flutter, transient CAD (coronary artery disease) Cardiomyopathy Cervical vertebral fusion C5-6 CHF (congestive heart failure) Chronic pain Chronic respiratory failure on 3 l nc Depression Diabetes GERD (gastroesophageal reflux disease) Hyperlipidemia Hypertension Hypothyroidism IBS (irritable bowel syndrome) ICD (implantable cardioverter-defibrillator) battery depletion Liver cancer no treatment, follows at u Migraine BI (obstructive sleep apnea) Osteoporosis RLS (restless legs syndrome) Surgical History Surgical History H/O breast biopsy H/O kyphoplasty 05/2023, 07/2023, 11/2023 H/O partial thyroidectomy H/O: hysterectomy History of carpal tunnel release History of cholecystectomy History of hip surgery History of liver biopsy Previous back surgery Social History Social History Smoking packs per day: 2 Smoking cigarettes per day: 40.0 Years smoked: 5 Smoking pack-years: 10.00 Smoking status: Former smoker Tobacco type: cigarettes Second hand tobacco smoke exposure: No Smoking end date: 08/30/24 Alcohol intake: never Substance use: never Substance use type: does not use Do You Feel Safe in your Home?: Yes Lack of Transportation: No Lack of Food: Never True Current Housing: I Have Housing Concerned About Future Housing: No Difficulty Paying Gas/Electric Bills: No Difficulty Paying for Meds: No Currently Unemployed: No Education: High School Diploma/GED Difficulty w/ Childcare or Family Care: No Spiritual care concerns: No Meds Home Medications and Allergies Home Medications Medication Instructions Recorded Confirmed Type Dexcom G7 Sensor 12/04/23 08/30/24 History aspirin 81 mg tablet,delayed 81 mg PO DAILY 12/04/23 08/30/24 History release atorvastatin 20 mg tablet 20 mg PO DAILY 12/04/23 08/30/24 History bisacodyl 10 mg rectal suppository 10 mg RECTAL DAILY PRN Constipation 12/04/23 08/30/24 History cyanocobalamin (vitamin B-12) 1,000 mcg IM MONTHLY 12/04/23 08/30/24 History cyclobenzaprine 5 mg tablet 10 mg PO TID PRN Muscle Spasms 12/04/23 08/30/24 History duloxetine 60 mg capsule,delayed 60 mg PO DAILY 12/04/23 08/30/24 History release ergocalciferol (vitamin D2) 25,000 2 unit PO WEEKLY 12/04/23 08/30/24 History unit capsule insulin glargine 100 unit/mL 25 unit subcut QAM 12/04/23 08/30/24 History subcutaneous solution insulin lispro 100 unit/mL 5 unit subcut TIDWMEAL 12/04/23 08/30/24 History subcutaneous solution levothyroxine 125 mcg tablet 125 mcg PO DAILY 12/04/23 08/30/24 History naloxone 4 mg/actuation nasal spray 1 spray intranasal Q3M PRN Opioid 12/04/23 08/30/24 History Reversal potassium chloride 20 mEq 20 meq PO DAILY 12/04/23 08/30/24 History tablet,extended release pregabalin 75 mg capsule 75 mg PO BID 12/04/23 08/30/24 History rizatriptan 10 mg tablet 10 mg PO ONCE PRN Migraine Headache 12/04/23 08/30/24 History ropinirole 0.25 mg tablet 0.25 mg PO HS 12/04/23 08/30/24 History sacubitril 24 mg-valsartan 26 mg 1 tablet PO BID 12/04/23 08/30/24 History tablet (Entresto) ondansetron 4 mg disintegrating 4 mg PO Q6H PRN Nausea And 12/15/23 08/30/24 Rx tablet Vomiting #0 tabs Anusol-HC 25 mg RECTAL DAILY PRN Hemorrhoids 08/30/24 08/30/24 History acetaminophen 325 mg tablet 650 mg PO Q6H Fever Or Pain 08/30/24 08/30/24 History alendronate 70 mg tablet 70 mg PO WEEKLY 08/30/24 08/30/24 History artifi.tears(hypromellose)(PF) 0.3 2 drp EACH EYE TID PRN Dry Eye(S) 08/30/24 08/30/24 History % eye drops bisacodyl 5 mg tablet,delayed 10 mg PO DAILY PRN Constipation 08/30/24 08/30/24 History release buprenorphine 10 mcg/hour weekly 1 patch transdermal Q7D 08/30/24 08/30/24 History transdermal patch calcium carbonate 1,000 mg PO TID 08/30/24 08/30/24 History empagliflozin 10 mg tablet 10 mg PO DAILY 08/30/24 08/30/24 History furosemide 40 mg tablet 40 mg PO DAILY 08/30/24 08/30/24 History hydrocortisone 2.5 % topical cream 1 applic RECTAL QID PRN Hemorrhoids 08/30/24 08/30/24 History with perineal applicator metformin 1,000 mg tablet 1,000 mg PO DAILY 08/30/24 08/30/24 History metoprolol tartrate 25 mg tablet 12.5 mg PO BID 08/30/24 08/30/24 History midodrine 10 mg tablet 10 mg PO TID 08/30/24 08/30/24 History oxycodone 5 mg tablet 10 mg PO Q4H PRN Pain 08/30/24 08/30/24 History pantoprazole 40 mg tablet,delayed 40 mg PO BID 08/30/24 08/30/24 History release sodium chloride 0.65 % nasal spray 2 spray intranasal Q2H PRN Dry 08/30/24 08/30/24 History aerosol (Saline Nasal) Nasal Passages warfarin 1 mg tablet 1.5 mg PO WEEKLY 08/30/24 08/30/24 History warfarin 2 mg tablet 2 mg PO DAILY 08/30/24 08/30/24 History Allergies Allergy/AdvReac Type Severity Reaction Status Date / Time acetaminophen Allergy Vomiting Verified 08/22/24 12:26 baclofen Allergy Nausea Verified 08/22/24 12:26 nitrofurantoin Allergy Nausea and Verified 08/22/24 12:26 Vomiting prochlorperazine Allergy Unknown Verified 08/22/24 12:26 propoxyphene Allergy Vomiting Verified 08/22/24 12:26 Sulfa (Sulfonamide Allergy Other Verified 08/22/24 12:26 Antibiotics) sulfanilamide Allergy Unknown Verified 08/22/24 12:26 sumatriptan Allergy Diarrhea Verified 08/22/24 12:26 tizanidine Allergy Hallucinati Verified 08/22/24 12:26 ng tramadol Allergy Unknown Verified 08/22/24 12:26 trazodone Allergy Other Verified 08/22/24 12:26 amitriptyline AdvReac Nightmare Verified 08/22/24 12:26 Vital Signs Vital Signs - 24 hr 08/30/24 15:01 08/30/24 14:15 08/30/24 16:00 Temperature 96.9 F L 96.8 F L Pulse Rate 81 81 95 Respiratory Rate 16 16 16 Blood Pressure 117/87 128/89 Pulse Oximetry 99 99 97 Oxygen Delivery Nasal Cannula Nasal Cannula Nasal Cannula Oxygen Flow Rate 2 2 2 08/30/24 17:10 08/30/24 21:15 08/30/24 23:42 Temperature 97.4 F L Pulse Rate 95 45 L 78 Respiratory Rate 16 18 Blood Pressure 121/75 Pulse Oximetry 97 98 Oxygen Delivery Nasal Cannula Nasal Cannula Oxygen Flow Rate 2 2 08/30/24 14:15 08/30/24 15:43 Temperature 96.9 F L Pulse Rate 81 Respiratory Rate 16 Blood Pressure 117/87 Pulse Oximetry 99 99 Oxygen Delivery Nasal Cannula Oxygen Flow Rate 2 Exam Narrative: General: appears comfortable, in no acute distress on 3 L NC. Respiratory: breathing is unlabored with even chest rise/fall, lungs are clear without wheezing, rhonchi, and crackles Cardiovascular: Rate and rhythm regular, normal s1s2, no murmur Abdomen: Soft, round, non-tender, active bowel sounds Extremities: No cyanosis, +1-2 BLE edema left right worse than left, no clubbing. Pulses 2/2 Neuro: A&O x 4 Skin: Warm, dry, intact H&P: Results Labs Labs: Short CBC 08/31/24 Range/Units 05:29 WBC 11.2 H (4.8-10.8) K/mm3 Hgb 7.8 L (12.0-15.0) g/dL Hct 29.6 L (35.0-49.0) % Plt Count 462 H (150-420) K/mm3 BMP 08/31/24 05:29 Sodium 145 Potassium 3.6 Chloride 104 Carbon Dioxide 34 H BUN 16 Creatinine 0.65 Glucose 286 H Calcium 8.7 Liver Function 08/31/24 Range/Units 05:29 Total Bilirubin 0.5 (0.00-1.00) mg/dL AST 26 (15-37) U/L ALT 63 H (14-59) U/L Alkaline Phosphatase 110 (46-116) U/L Albumin 3.7 (3.4-5.0) g/dL Assessment and Plan Assessment and plan (1) Debilitated: Code(s): R53.81 - Other malaise Status: Acute Assessment and Plan: recent hospitalization with worsening congestive heart failure * Fall precautions * PT OT consulted (2) CHF (congestive heart failure): Code(s): I50.9 - Heart failure, unspecified Status: Acute Assessment and Plan: History of CHF with implantable ICD. Recent echocardiograms showed an EF of 1 5%. Patient is on Jardiance 10 mg daily, Entresto 24-26 mg BID, Lasix 40 mg daily, and Metoprolol tartrate 12.5 mg b.i.d. * continue with medication therapy. consider switching to metoprolol succinate * fluid restriction of 2 L a day * limit additional salt * daily weight, intake and output (3) Hypothyroidism: Code(s): E03.9 - Hypothyroidism, unspecified Status: Acute Assessment and Plan: continue levothyroxine (4) Chronic pain: Code(s): G89.29 - Other chronic pain Status: Acute Assessment and Plan: Patient has chronic pain. Continue buprenorphine patches. Her is bringing today as this is non formulary. * Continue buprenorphine patch * oxycodone 10 mg every 4 hours * Flexeril 10 mg t.i.d. * continue Lyrica (5) Chronic respiratory failure: Code(s): J96.10 - Chronic respiratory failure, unspecified whether with hypoxia or hypercapnia Status: Acute Assessment and Plan: history of chronic respiratory failure on 3 L nasal cannula (6) Diabetes: Code(s): E11.9 - Type 2 diabetes mellitus without complications Status: Acute Assessment and Plan: history of diabetes. She is on Lantus 25 units daily, lispro 5 units t.i.d. with meals, and a 1000 mg metformin daily. * Diabetic diet * a.c. HS Accu-Cheks * continue lispro 5 units t.i.d. with meals. low-dose SSI * continue Lantus 25 units * hypoglycemia protocol ordered (7) Atrial fibrillation: Code(s): I48.91 - Unspecified atrial fibrillation Status: Acute Assessment and Plan: history of atrial fibrillation rate controlled on amiodarone 200 mg daily and metoprolol tartrate 12.5 mg b.i.d.. patient previously failed Eliquis developing an atrial thrombus while on therapy. * Continue rate control medications * continue warfarin 2 mg 6 days a week ( Friday through Friday) and warfarin 1.5 mg 1 day a week ( Friday) * She was having some episodes of low heart rate today so her metoprolol was held. May consider stopping amiodarone and continuing with metoprolol. Quality VTE Prophylaxis VTE prophylaxis: pharmacologic ordered Hospitalist MIPS Advance Care Plan I have confirmed that the patient's Advanced Care Plan is present, code status is documented, or surrogate decision maker is listed in patient medical record.: Yes Medication Reconciliation I have utilized all available resources to obtain, update and review the patients current medications (includes all prescriptions, OTC, herbals, cannabis, and nutritional supplements).: Yes
[2024-08-31] MEDS: INSULIN GLARGINE (*BKC) 1,000 UNITS/10 ML VIAL 25 UNITS SUB-Q (08:17)
[2024-08-31] MEDS: INSULIN HUMAN LISPRO (*BKC) 1,000 UNITS/10 ML VIAL 5 UNITS SUB-Q ×3 (08:19→17:10)
[2024-08-31] MEDS: INSULIN HUMAN LISPRO (*BKC) 1,000 UNITS/10 ML VIAL SUB-Q ×2 (08:19→11:42)
[2024-08-31] MEDS: POTASSIUM CHLORIDE 20 MEQ ER TABLET PO (08:21)
[2024-08-31] MEDS: PREGABALIN (*CRX) 25 MG CAPSULE PO ×2 (08:22→16:59)
[2024-08-31] MEDS: PREGABALIN (*CRX) 50 MG CAPSULE PO ×2 (08:22→16:58)
[2024-08-31] MEDS: CALCIUM CARBONATE (TUMS) 500 MG (200 MG ELEMENTAL) 400 MG PO ×3 (08:22→16:57)
[2024-08-31] MEDS: DULoxetine HCL 30 MG CAPSULE.DR 60 MG PO (08:23)
[2024-08-31] MEDS: MIDODRINE HCL 2.5 MG TABLET 10 MG PO ×3 (08:24→16:58)
[2024-08-31] MEDS: ASPIRIN 81 MG ENTERIC TABLET PO (08:24)
[2024-08-31] MEDS: SACUBITRIL/VALSARTAN 24-26 MG TABLET 1 TAB PO ×2 (08:25→21:20)
[2024-08-31] MEDS: PANTOPRAZOLE 40 MG TABLET PO ×2 (08:26→16:57)
[2024-08-31] MEDS: FUROSEMIDE 40 MG TABLET PO (08:26)
[2024-08-31] MEDS: ATORVASTATIN 10 MG TABLET 20 MG PO (08:26)
[2024-08-31] MEDS: EMPAGLIFLOZIN 10 MG TABLET PO (08:27)
[2024-08-31 09:33] VITALS: PULSE 59
[2024-08-31] MEDS: AMIODARONE HCL 200 MG TABLET PO (09:33)
--- NOTE | 2024-08-31 11:23 | PHAR ---
VERIFIED PT.'S HOME MED: Buprenorphine 10mcg/hr patch weekly. Apply 1 patch topically to the skin 1 time a week.
[2024-08-31 11:44] LABS: Glucose Point of Care 294 mg/dl (65-105)
[2024-08-31] MEDS: CYANOCOBALAMIN INJ 1,000 MCG/ML VIAL 1000 MCG IM (12:45)
[2024-08-31 16:00] VITALS: BP 140/96; PULSE 89; RESP 16; TEMP 36; O2SAT 98
[2024-08-31] MEDS: WARFARIN (*PBKC) 2 MG TABLET PO (17:01)
[2024-08-31 21:19] VITALS: PULSE 104
[2024-08-31] MEDS: METOPROLOL TARTRATE 12.5 MG TABLET PO (21:19)
[2024-08-31] MEDS: rOPINIRole HCL 0.25 MG TABLET PO (21:20)
[2024-08-31 21:38] LABS: Glucose Point of Care 300 mg/dl (65-105)
[2024-09-01] VITALS (7 sets, daily range): BP systolic 120–143; BP diastolic 81–88; PULSE 54–98; RESP 14–18; TEMP 36–36.8; O2SAT 98–99
[2024-09-01 02:16] LABS: Glucose Point of Care 191 mg/dl (65-105)
[2024-09-01] MEDS: oxyCODONE HCL (*CRX) 5 MG TAB IR 10 MG PO ×4 (05:01→21:36)
[2024-09-01 05:29] LABS: INR 2.7; Prothrombin Time 26.7 Seconds (9.50-12.1)
[2024-09-01] MEDS: LEVOTHYROXINE SODIUM 100 MCG TABLET PO (06:23)
[2024-09-01] MEDS: ACETAMINOPHEN 325 MG TABLET 650 MG PO ×4 (06:23→17:06)
[2024-09-01] MEDS: LEVOTHYROXINE SODIUM 25 MCG TABLET PO (06:23)
[2024-09-01 07:53] LABS: Glucose Point of Care 163 mg/dl (65-105)
[2024-09-01] MEDS: INSULIN HUMAN LISPRO (*BKC) 1,000 UNITS/10 ML VIAL 5 UNITS SUB-Q ×3 (08:35→17:08)
[2024-09-01] MEDS: HYDROCORTISONE ACETATE 25 MG SUPPOSITORY RECTAL ×2 (08:42→09:02)
[2024-09-01] MEDS: PANTOPRAZOLE 40 MG TABLET PO ×2 (08:42→16:55)
[2024-09-01] MEDS: SACUBITRIL/VALSARTAN 24-26 MG TABLET 1 TAB PO ×2 (08:43→21:36)
[2024-09-01] MEDS: FUROSEMIDE 40 MG TABLET PO (08:43)
[2024-09-01] MEDS: CALCIUM CARBONATE (TUMS) 500 MG (200 MG ELEMENTAL) 400 MG PO ×3 (08:43→16:52)
[2024-09-01] MEDS: POTASSIUM CHLORIDE 20 MEQ ER TABLET PO (08:44)
[2024-09-01] MEDS: PREGABALIN (*CRX) 50 MG CAPSULE PO ×2 (08:44→16:55)
[2024-09-01] MEDS: ATORVASTATIN 10 MG TABLET 20 MG PO (08:44)
[2024-09-01] MEDS: AMIODARONE HCL 200 MG TABLET PO (08:44)
[2024-09-01] MEDS: PREGABALIN (*CRX) 25 MG CAPSULE PO ×2 (08:44→17:06)
[2024-09-01] MEDS: EMPAGLIFLOZIN 10 MG TABLET PO (08:45)
[2024-09-01] MEDS: METOPROLOL TARTRATE 12.5 MG TABLET PO ×2 (08:46→21:35)
[2024-09-01] MEDS: DULoxetine HCL 30 MG CAPSULE.DR 60 MG PO (08:46)
[2024-09-01] MEDS: ASPIRIN 81 MG ENTERIC TABLET PO (08:46)
[2024-09-01] MEDS: MIDODRINE HCL 2.5 MG TABLET 10 MG PO ×3 (08:46→16:54)
[2024-09-01] MEDS: [UNRECOGNIZED DRUG - OTHER] TOPICAL (09:00)
[2024-09-01] MEDS: BUPRENORPHINE TOPICAL (09:00)
[2024-09-01] MEDS: INSULIN GLARGINE (*BKC) 1,000 UNITS/10 ML VIAL 25 UNITS SUB-Q (09:05)
[2024-09-01 11:59] LABS: Glucose Point of Care 284 mg/dl (65-105)
[2024-09-01] MEDS: INSULIN HUMAN LISPRO (*BKC) 1,000 UNITS/10 ML VIAL SUB-Q (12:30)
--- NOTE | 2024-09-01 15:53 | PC.NURSE ---
Patient c/o pain 7:10 in lower back.PRN pain medication given per MD orders. No other c/o offered. O2 @ 2LPM/NC. No resp distrtess noted. Resting in bed. SR up x2. Call light and belongings within reach. Fluid restriction continues.
[2024-09-01 16:51] LABS: Glucose Point of Care 191 mg/dl (65-105)
[2024-09-01] MEDS: WARFARIN (*PBKC) 2 MG TABLET PO (17:06)
--- NOTE | 2024-09-01 17:30 | PC.NURSE ---
Paitent sitting on side of bed for supper. Bed alarm on to sound if patient leaves bed. Alert and talkative, Denies pain. No sliding scale insulin needed. Call light within reach.
[2024-09-01] MEDS: CYCLOBENZAPRINE HCL 10 MG TABLET PO (21:36)
[2024-09-01] MEDS: rOPINIRole HCL 0.25 MG TABLET PO (21:37)
[2024-09-01 21:38] LABS: Glucose Point of Care 197 mg/dl (65-105)
[2024-09-02] MEDS: ACETAMINOPHEN 325 MG TABLET 650 MG PO ×5 (00:40→23:50)
[2024-09-02 05:23] LABS: Prothrombin Time 29.9 Seconds (9.50-12.1)
[2024-09-02 05:30] VITALS: O2SAT 99
[2024-09-02] MEDS: oxyCODONE HCL (*CRX) 5 MG TAB IR 10 MG PO ×4 (06:24→21:50)
[2024-09-02] MEDS: ALENDRONATE SODIUM 70 MG TABLET PO (06:25)
[2024-09-02] MEDS: LEVOTHYROXINE SODIUM 25 MCG TABLET PO (06:25)
[2024-09-02] MEDS: LEVOTHYROXINE SODIUM 100 MCG TABLET PO (06:25)
[2024-09-02 08:00] VITALS: BP 138/86; PULSE 96; RESP 14; TEMP 36.6; O2SAT 98
[2024-09-02 08:10] VITALS: PULSE 92
[2024-09-02] MEDS: AMIODARONE HCL 200 MG TABLET PO (08:10)
[2024-09-02 08:21] LABS: Glucose Point of Care 148 mg/dl (65-105)
[2024-09-02] MEDS: INSULIN HUMAN LISPRO (*BKC) 1,000 UNITS/10 ML VIAL 5 UNITS SUB-Q ×3 (08:30→17:05)
[2024-09-02] MEDS: MIDODRINE HCL 2.5 MG TABLET 10 MG PO ×3 (09:09→17:06)
[2024-09-02] MEDS: CALCIUM CARBONATE (TUMS) 500 MG (200 MG ELEMENTAL) 400 MG PO ×3 (09:09→17:06)
[2024-09-02 09:10] VITALS: PULSE 92
[2024-09-02] MEDS: METOPROLOL TARTRATE 12.5 MG TABLET PO ×2 (09:10→21:45)
[2024-09-02] MEDS: EMPAGLIFLOZIN 10 MG TABLET PO (09:10)
[2024-09-02] MEDS: SACUBITRIL/VALSARTAN 24-26 MG TABLET 1 TAB PO ×2 (09:10→21:46)
[2024-09-02] MEDS: PANTOPRAZOLE 40 MG TABLET PO ×2 (09:10→17:06)
[2024-09-02] MEDS: FUROSEMIDE 40 MG TABLET PO (09:10)
[2024-09-02] MEDS: ATORVASTATIN 10 MG TABLET 20 MG PO (09:10)
[2024-09-02] MEDS: DULoxetine HCL 30 MG CAPSULE.DR 60 MG PO (09:10)
[2024-09-02] MEDS: PREGABALIN (*CRX) 50 MG CAPSULE PO ×2 (09:11→17:06)
[2024-09-02] MEDS: POTASSIUM CHLORIDE 20 MEQ ER TABLET PO (09:11)
[2024-09-02] MEDS: ASPIRIN 81 MG ENTERIC TABLET PO (09:11)
[2024-09-02] MEDS: PREGABALIN (*CRX) 25 MG CAPSULE PO ×2 (09:11→17:05)
[2024-09-02] MEDS: INSULIN GLARGINE (*BKC) 1,000 UNITS/10 ML VIAL 25 UNITS SUB-Q (11:19)
[2024-09-02 12:03] LABS: Glucose Point of Care 217 mg/dl (65-105)
[2024-09-02] MEDS: INSULIN HUMAN LISPRO (*BKC) 1,000 UNITS/10 ML VIAL SUB-Q (12:10)
[2024-09-02 16:00] VITALS: BP 131/97; PULSE 89; RESP 20; TEMP 35.8; O2SAT 100
[2024-09-02 16:44] LABS: Glucose Point of Care 158 mg/dl (65-105)
[2024-09-02] MEDS: WARFARIN (*PBKC) 2 MG TABLET PO (17:12)
[2024-09-02 21:33] LABS: Glucose Point of Care 115 mg/dl (65-105)
[2024-09-02 21:45] VITALS: PULSE 97
[2024-09-02] MEDS: rOPINIRole HCL 0.25 MG TABLET PO (21:46)
[2024-09-03] VITALS (7 sets, daily range): BP systolic 130–150; BP diastolic 54–86; PULSE 71–100; RESP 16–19; TEMP 36.1–36.6; O2SAT 98–100
[2024-09-03] MEDS: oxyCODONE HCL (*CRX) 5 MG TAB IR 10 MG PO ×4 (02:02→16:43)
[2024-09-03 05:45] LABS: Hematocrit 30.5 % (35.0-49.0); Mean Corpuscular HGB Conc 26.2 g/dL (32-36); Mean Corpuscular Hemoglobin 19.5 pg (27.0-31.0); Mean Corpuscular Volume 74.2 fL (78.0-102.0); Mean Platelet Volume 9.8 fl (9.2-11.8); Platelet Count Result 469 K/mm3 (150-420); Red Blood Count 4.11 M/mm3 (4.20-5.40); Red Cell Distribution Width 19.6 % (11.6-14.4); White Blood Count 9.3 K/mm3 (4.8-10.8)
[2024-09-03 05:58] LABS: INR 3.3; Prothrombin Time 32.7 Seconds (9.50-12.1)
[2024-09-03 06:00] LABS: Alanine Aminotransferase 44 U/L (14-59); Albumin Level 3.5 g/dL (3.4-5.0); Alkaline Phosphatase 92 U/L (46-116); Anion Gap 7 mmol/L (4-12); Aspartate Amino Transferase 14 U/L (15-37); Bilirubin,Total 0.5 mg/dL (0.00-1.00); Blood Urea Nitrogen 17 mg/dL (7-18); Calcium 8.6 mg/dL (8.5-10.1); Carbon Dioxide 34 mmol/L (21-32); Chloride 104 mmol/L (98-108); Estimated CRCL calculation 77 ml/min; Estimated Glomerular Filt Rate > 60; Glucose 186 mg/dL (70-99); Osmolality Calculated 306 mOsm/kg (285-295); Potassium 3.4 mmol/L (3.5-5.1); Sodium 145 mmol/L (136-145); Total Protein 5.8 g/dL (6.4-8.2)
[2024-09-03] MEDS: LEVOTHYROXINE SODIUM 100 MCG TABLET PO (06:36)
[2024-09-03] MEDS: ACETAMINOPHEN 325 MG TABLET 650 MG PO ×3 (06:36→18:24)
[2024-09-03] MEDS: CYCLOBENZAPRINE HCL 10 MG TABLET PO ×3 (06:36→18:24)
[2024-09-03] MEDS: LEVOTHYROXINE SODIUM 25 MCG TABLET PO (06:36)
[2024-09-03] MEDS: CALCIUM CARBONATE (TUMS) 500 MG (200 MG ELEMENTAL) 400 MG PO ×3 (07:57→16:43)
[2024-09-03] MEDS: INSULIN GLARGINE (*BKC) 1,000 UNITS/10 ML VIAL 25 UNITS SUB-Q (07:57)
[2024-09-03] MEDS: INSULIN HUMAN LISPRO (*BKC) 1,000 UNITS/10 ML VIAL 5 UNITS SUB-Q ×3 (07:58→16:42)
[2024-09-03] MEDS: METOPROLOL TARTRATE 12.5 MG TABLET PO ×2 (07:59→20:40)
[2024-09-03] MEDS: AMIODARONE HCL 200 MG TABLET PO (08:00)
[2024-09-03] MEDS: MIDODRINE HCL 2.5 MG TABLET 10 MG PO ×3 (08:00→16:42)
[2024-09-03] MEDS: ATORVASTATIN 10 MG TABLET 20 MG PO (08:00)
[2024-09-03] MEDS: PREGABALIN (*CRX) 25 MG CAPSULE PO ×2 (08:00→16:43)
[2024-09-03] MEDS: SACUBITRIL/VALSARTAN 24-26 MG TABLET 1 TAB PO ×2 (08:01→20:42)
[2024-09-03] MEDS: PANTOPRAZOLE 40 MG TABLET PO ×2 (08:01→16:43)
[2024-09-03] MEDS: ASPIRIN 81 MG ENTERIC TABLET PO (08:01)
[2024-09-03] MEDS: POTASSIUM CHLORIDE 20 MEQ ER TABLET PO (08:01)
[2024-09-03] MEDS: DULoxetine HCL 30 MG CAPSULE.DR 60 MG PO (08:01)
[2024-09-03] MEDS: EMPAGLIFLOZIN 10 MG TABLET PO (08:01)
[2024-09-03] MEDS: ERGOCALCIFEROL 50,000 UNITS CAPSULE 50000 UNITS PO (08:02)
[2024-09-03] MEDS: PREGABALIN (*CRX) 50 MG CAPSULE PO ×2 (08:02→16:43)
[2024-09-03] MEDS: FUROSEMIDE 40 MG TABLET PO (08:02)
[2024-09-03] MEDS: HYDROCORTISONE 2.5% CREAM 30 GM TUBE 1 APPLIC RECTAL (08:09)
[2024-09-03 12:04] LABS: Glucose Point of Care 379 mg/dl (65-105)
[2024-09-03] MEDS: INSULIN HUMAN LISPRO (*BKC) 1,000 UNITS/10 ML VIAL SUB-Q (12:19)
[2024-09-03] MEDS: WARFARIN (*PBKC) 2 MG TABLET PO (16:43)
[2024-09-03 16:47] LABS: Glucose Point of Care 176 mg/dl (65-105)
[2024-09-03] MEDS: MELATONIN 5 MG TABLET PO (20:40)
[2024-09-03 20:41] LABS: Glucose Point of Care 346 mg/dl (65-105)
[2024-09-03] MEDS: rOPINIRole HCL 0.25 MG TABLET PO (20:42)
[2024-09-04] VITALS (7 sets, daily range): BP systolic 112–131; BP diastolic 79–96; PULSE 51–92; RESP 16–18; TEMP 36.1–36.4; O2SAT 96–100
[2024-09-04] MEDS: oxyCODONE HCL (*CRX) 5 MG TAB IR 10 MG PO ×5 (02:04→22:01)
[2024-09-04] MEDS: CYCLOBENZAPRINE HCL 10 MG TABLET PO ×3 (02:04→20:30)
[2024-09-04 05:40] LABS: INR 3.7; Prothrombin Time 35.9 Seconds (9.50-12.1)
[2024-09-04] MEDS: ACETAMINOPHEN 325 MG TABLET 650 MG PO ×3 (06:10→17:05)
[2024-09-04] MEDS: LEVOTHYROXINE SODIUM 100 MCG TABLET PO (06:11)
[2024-09-04] MEDS: LEVOTHYROXINE SODIUM 25 MCG TABLET PO (06:11)
[2024-09-04 07:56] LABS: Glucose Point of Care 173 mg/dl (65-105)
[2024-09-04] MEDS: INSULIN HUMAN LISPRO (*BKC) 1,000 UNITS/10 ML VIAL 5 UNITS SUB-Q ×3 (08:06→17:01)
[2024-09-04] MEDS: INSULIN GLARGINE (*BKC) 1,000 UNITS/10 ML VIAL 25 UNITS SUB-Q (08:10)
[2024-09-04] MEDS: CALCIUM CARBONATE (TUMS) 500 MG (200 MG ELEMENTAL) 400 MG PO ×3 (08:10→17:02)
[2024-09-04] MEDS: MIDODRINE HCL 2.5 MG TABLET 10 MG PO ×3 (08:11→17:03)
[2024-09-04] MEDS: ATORVASTATIN 10 MG TABLET 20 MG PO (08:12)
[2024-09-04] MEDS: DULoxetine HCL 30 MG CAPSULE.DR 60 MG PO (08:12)
[2024-09-04] MEDS: AMIODARONE HCL 200 MG TABLET PO (08:13)
[2024-09-04] MEDS: ASPIRIN 81 MG ENTERIC TABLET PO (08:13)
[2024-09-04] MEDS: PANTOPRAZOLE 40 MG TABLET PO ×2 (08:14→17:05)
[2024-09-04] MEDS: POTASSIUM CHLORIDE 20 MEQ ER TABLET PO (08:14)
[2024-09-04] MEDS: PREGABALIN (*CRX) 25 MG CAPSULE PO ×2 (08:15→17:04)
[2024-09-04] MEDS: SACUBITRIL/VALSARTAN 24-26 MG TABLET 1 TAB PO ×2 (08:15→20:30)
[2024-09-04] MEDS: PREGABALIN (*CRX) 50 MG CAPSULE PO ×2 (08:15→17:04)
[2024-09-04] MEDS: FUROSEMIDE 40 MG TABLET PO (08:16)
[2024-09-04] MEDS: EMPAGLIFLOZIN 10 MG TABLET PO (08:20)
[2024-09-04] MEDS: INSULIN HUMAN LISPRO (*BKC) 1,000 UNITS/10 ML VIAL SUB-Q (11:43)
[2024-09-04 11:44] LABS: Glucose Point of Care 280 mg/dl (65-105)
[2024-09-04 16:37] LABS: Glucose Point of Care 191 mg/dl (65-105)
[2024-09-04] MEDS: SENNA/DOCUSATE SODIUM TABLET 1 TAB PO (20:30)
[2024-09-04] MEDS: rOPINIRole HCL 0.25 MG TABLET PO (20:30)
[2024-09-04] MEDS: MELATONIN 5 MG TABLET PO (20:30)
[2024-09-04 20:34] LABS: Glucose Point of Care 300 mg/dl (65-105)
[2024-09-05] VITALS (8 sets, daily range): BP systolic 88–134; BP diastolic 74–87; PULSE 50–104; RESP 16–17; TEMP 36.1–36.3; O2SAT 96–100
[2024-09-05] MEDS: ACETAMINOPHEN 325 MG TABLET 650 MG PO ×3 (00:47→11:49)
[2024-09-05] MEDS: CYCLOBENZAPRINE HCL 10 MG TABLET PO ×3 (05:24→20:18)
[2024-09-05] MEDS: LEVOTHYROXINE SODIUM 25 MCG TABLET PO (05:24)
[2024-09-05] MEDS: LEVOTHYROXINE SODIUM 100 MCG TABLET PO (05:24)
[2024-09-05 06:32] LABS: INR 3.3; Prothrombin Time 32.3 Seconds (9.50-12.1)
[2024-09-05 07:34] LABS: Glucose Point of Care 272 mg/dl (65-105)
[2024-09-05] MEDS: INSULIN GLARGINE (*BKC) 1,000 UNITS/10 ML VIAL 25 UNITS SUB-Q (08:20)
[2024-09-05] MEDS: METOPROLOL TARTRATE 12.5 MG TABLET PO (08:24)
[2024-09-05] MEDS: CALCIUM CARBONATE (TUMS) 500 MG (200 MG ELEMENTAL) 400 MG PO ×3 (08:24→16:56)
[2024-09-05] MEDS: SACUBITRIL/VALSARTAN 24-26 MG TABLET 1 TAB PO ×2 (08:25→20:18)
[2024-09-05] MEDS: POTASSIUM CHLORIDE 20 MEQ ER TABLET PO (08:25)
[2024-09-05] MEDS: DULoxetine HCL 30 MG CAPSULE.DR 60 MG PO (08:25)
[2024-09-05] MEDS: PREGABALIN (*CRX) 25 MG CAPSULE PO ×2 (08:26→16:56)
[2024-09-05] MEDS: ATORVASTATIN 10 MG TABLET 20 MG PO (08:26)
[2024-09-05] MEDS: PREGABALIN (*CRX) 50 MG CAPSULE PO ×2 (08:26→16:56)
[2024-09-05] MEDS: AMIODARONE HCL 200 MG TABLET PO (08:27)
[2024-09-05] MEDS: MIDODRINE HCL 2.5 MG TABLET 10 MG PO ×3 (08:27→16:57)
[2024-09-05] MEDS: PANTOPRAZOLE 40 MG TABLET PO ×2 (08:27→16:57)
[2024-09-05] MEDS: EMPAGLIFLOZIN 10 MG TABLET PO (08:28)
[2024-09-05] MEDS: oxyCODONE HCL (*CRX) 5 MG TAB IR 10 MG PO ×4 (08:28→22:06)
[2024-09-05] MEDS: ASPIRIN 81 MG ENTERIC TABLET PO (08:28)
[2024-09-05] MEDS: FUROSEMIDE 40 MG TABLET PO (08:29)
[2024-09-05] MEDS: INSULIN HUMAN LISPRO (*BKC) 1,000 UNITS/10 ML VIAL 5 UNITS SUB-Q ×3 (08:29→16:59)
[2024-09-05] MEDS: INSULIN HUMAN LISPRO (*BKC) 1,000 UNITS/10 ML VIAL SUB-Q ×2 (08:30→11:49)
[2024-09-05 11:47] LABS: Glucose Point of Care 248 mg/dl (65-105)
[2024-09-05 16:37] LABS: Glucose Point of Care 107 mg/dl (65-105)
--- NOTE | 2024-09-05 16:43 | PC.NURSE ---
Patient noted to have increased swelling in BLE. Patient in bed with feet elevated. Patient also noted to have BP of 88/74 and c/o weakness. Call out to OFFSET L[employer]OGRAPHIC PRESS SETTER awaiting return call.
--- NOTE | 2024-09-05 17:31 | PC.NURSE ---
CERTIFIED PEER SPECIALIST ordered IAN hose for pitting edema.
[2024-09-05] MEDS: WARFARIN (*PBKC) 1 MG TABLET 1.5 MG PO (17:55)
[2024-09-05] MEDS: MELATONIN 5 MG TABLET PO (20:18)
[2024-09-05] MEDS: SENNA/DOCUSATE SODIUM TABLET 1 TAB PO (20:18)
[2024-09-05] MEDS: rOPINIRole HCL 0.25 MG TABLET PO (20:18)
[2024-09-05 20:22] LABS: Glucose Point of Care 202 mg/dl (65-105)
--- NOTE | 2024-09-05 22:10 | PC.NURSE ---
Spoke with daughter Ana regarding patient status. BP and swelling have improved. HS Metoprolol held d/t pulse of 50.
[2024-09-06] VITALS (7 sets, daily range): BP systolic 119–136; BP diastolic 75–98; PULSE 50–76; RESP 16–17; TEMP 35.8–36.6; O2SAT 96–100
[2024-09-06] MEDS: ACETAMINOPHEN 325 MG TABLET 650 MG PO ×4 (00:01→17:50)
[2024-09-06] MEDS: oxyCODONE HCL (*CRX) 5 MG TAB IR 10 MG PO ×3 (02:02→20:29)
[2024-09-06] MEDS: LEVOTHYROXINE SODIUM 100 MCG TABLET PO (05:30)
[2024-09-06] MEDS: LEVOTHYROXINE SODIUM 25 MCG TABLET PO (05:30)
[2024-09-06] MEDS: CYCLOBENZAPRINE HCL 10 MG TABLET PO ×2 (05:30→20:29)
[2024-09-06 05:36] LABS: INR 2.3; Prothrombin Time 23.4 Seconds (9.50-12.1)
[2024-09-06 08:06] LABS: Glucose Point of Care 210 mg/dl (65-105)
[2024-09-06] MEDS: INSULIN HUMAN LISPRO (*BKC) 1,000 UNITS/10 ML VIAL SUB-Q ×2 (09:14→11:56)
[2024-09-06] MEDS: INSULIN HUMAN LISPRO (*BKC) 1,000 UNITS/10 ML VIAL 5 UNITS SUB-Q ×3 (09:14→17:51)
[2024-09-06] MEDS: ASPIRIN 81 MG ENTERIC TABLET PO (09:15)
[2024-09-06] MEDS: CALCIUM CARBONATE (TUMS) 500 MG (200 MG ELEMENTAL) 400 MG PO ×3 (09:15→16:26)
[2024-09-06] MEDS: METOPROLOL TARTRATE 12.5 MG TABLET PO (09:15)
[2024-09-06] MEDS: PREGABALIN (*CRX) 25 MG CAPSULE PO ×2 (09:15→16:26)
[2024-09-06] MEDS: SACUBITRIL/VALSARTAN 24-26 MG TABLET 1 TAB PO ×2 (09:15→20:28)
[2024-09-06] MEDS: POTASSIUM CHLORIDE 20 MEQ ER TABLET PO (09:15)
[2024-09-06] MEDS: PREGABALIN (*CRX) 50 MG CAPSULE PO ×2 (09:15→16:26)
[2024-09-06] MEDS: INSULIN GLARGINE (*BKC) 1,000 UNITS/10 ML VIAL 25 UNITS SUB-Q (09:15)
[2024-09-06] MEDS: EMPAGLIFLOZIN 10 MG TABLET PO (09:15)
[2024-09-06] MEDS: MIDODRINE HCL 2.5 MG TABLET 10 MG PO ×3 (09:16→16:26)
[2024-09-06] MEDS: ATORVASTATIN 10 MG TABLET 20 MG PO (09:16)
[2024-09-06] MEDS: FUROSEMIDE 40 MG TABLET PO (09:16)
[2024-09-06] MEDS: AMIODARONE HCL 200 MG TABLET PO (09:16)
[2024-09-06] MEDS: PANTOPRAZOLE 40 MG TABLET PO ×2 (09:16→16:26)
[2024-09-06] MEDS: DULoxetine HCL 30 MG CAPSULE.DR 60 MG PO (09:16)
[2024-09-06 11:48] LABS: Glucose Point of Care 248 mg/dl (65-105)
[2024-09-06] MEDS: ALPRAZolam (*CRX) 0.25 MG TABLET PO (16:26)
[2024-09-06] MEDS: WARFARIN (*PBKC) 2 MG TABLET PO (16:29)
[2024-09-06 16:37] LABS: Glucose Point of Care 123 mg/dl (65-105)
[2024-09-06] MEDS: rOPINIRole HCL 0.25 MG TABLET PO (20:28)
[2024-09-06] MEDS: MELATONIN 5 MG TABLET PO (20:28)
[2024-09-06] MEDS: SENNA/DOCUSATE SODIUM TABLET 1 TAB PO (20:28)
[2024-09-06 20:33] LABS: Glucose Point of Care 230 mg/dl (65-105)
[2024-09-07] VITALS: BP 111/78; PULSE 91; RESP 17; TEMP 36.2; O2SAT 99
[2024-09-07] MEDS: LEVOTHYROXINE SODIUM 25 MCG TABLET PO (05:13)
[2024-09-07] MEDS: LEVOTHYROXINE SODIUM 100 MCG TABLET PO (05:13)
[2024-09-07] MEDS: ACETAMINOPHEN 325 MG TABLET 650 MG PO ×3 (05:13→17:24)
[2024-09-07] MEDS: oxyCODONE HCL (*CRX) 5 MG TAB IR 10 MG PO ×4 (05:14→17:24)
[2024-09-07 05:30] VITALS: O2SAT 98
[2024-09-07 05:35] LABS: INR 2.2; Prothrombin Time 22.3 Seconds (9.50-12.1)
[2024-09-07 08:00] VITALS: BP 116/89; PULSE 116; RESP 14; TEMP 36; O2SAT 100
[2024-09-07 08:04] LABS: Glucose Point of Care 150 mg/dl (65-105)
[2024-09-07] MEDS: INSULIN GLARGINE (*BKC) 1,000 UNITS/10 ML VIAL 25 UNITS SUB-Q (08:20)
[2024-09-07 08:25] VITALS: PULSE 116
[2024-09-07] MEDS: AMIODARONE HCL 200 MG TABLET PO (08:25)
[2024-09-07] MEDS: PANTOPRAZOLE 40 MG TABLET PO ×2 (09:23→17:24)
[2024-09-07] MEDS: CALCIUM CARBONATE (TUMS) 500 MG (200 MG ELEMENTAL) 400 MG PO ×3 (09:23→17:24)
[2024-09-07] MEDS: EMPAGLIFLOZIN 10 MG TABLET PO (09:23)
[2024-09-07] MEDS: ATORVASTATIN 10 MG TABLET 20 MG PO (09:24)
[2024-09-07] MEDS: MIDODRINE HCL 2.5 MG TABLET 10 MG PO ×3 (09:24→17:24)
[2024-09-07] MEDS: POTASSIUM CHLORIDE 20 MEQ ER TABLET PO (09:24)
[2024-09-07] MEDS: DULoxetine HCL 30 MG CAPSULE.DR 60 MG PO (09:24)
[2024-09-07] MEDS: FUROSEMIDE 40 MG TABLET PO (09:24)
[2024-09-07] MEDS: ASPIRIN 81 MG ENTERIC TABLET PO (09:25)
[2024-09-07] MEDS: SACUBITRIL/VALSARTAN 24-26 MG TABLET 1 TAB PO ×2 (09:25→20:53)
[2024-09-07 09:26] VITALS: PULSE 116
[2024-09-07] MEDS: PREGABALIN (*CRX) 50 MG CAPSULE PO ×2 (09:26→17:24)
[2024-09-07] MEDS: PREGABALIN (*CRX) 25 MG CAPSULE PO ×2 (09:26→17:24)
[2024-09-07] MEDS: METOPROLOL SUCCINATE EXT REL 12.5 MG TABCR PO (09:26)
[2024-09-07] MEDS: INSULIN HUMAN LISPRO (*BKC) 1,000 UNITS/10 ML VIAL 5 UNITS SUB-Q ×3 (09:35→17:24)
--- NOTE | 2024-09-07 11:23 | P.PNIM_ITS ---
Progress Note: A&P Assessment and Plan (1) Debilitated: Code(s): R53.81 - Other malaise Status: Acute Assessment and Plan: recent hospitalization with worsening congestive heart failure * Fall precautions * PT OT consulted (2) CHF (congestive heart failure): Code(s): I50.9 - Heart failure, unspecified Status: Acute Assessment and Plan: History of CHF with implantable ICD. Recent echocardiograms showed an EF of 15%. Patient is on Jardiance 10 mg daily, Entresto 24-26 mg BID, Lasix 40 mg daily, and Metoprolol tartrate 12.5 mg b.i.d. * continue with medication therapy. consider switching to metoprolol succinate * fluid restriction of 2 L a day * limit additional salt * daily weight, intake and output (3) Hypothyroidism: Code(s): E03.9 - Hypothyroidism, unspecified Status: Acute Assessment and Plan: continue levothyroxine (4) Chronic pain: Code(s): G89.29 - Other chronic pain Status: Acute Assessment and Plan: Patient has chronic pain. Continue buprenorphine patches. Her is bringing today as this is non formulary. * Continue buprenorphine patch * oxycodone 10 mg every 4 hours * Flexeril 10 mg t.i.d. * continue Lyrica (5) Chronic respiratory failure: Code(s): J96.10 - Chronic respiratory failure, unspecified whether with hypoxia or hypercapnia Status: Acute Assessment and Plan: history of chronic respiratory failure on 3 L nasal cannula (6) Diabetes: Code(s): E11.9 - Type 2 diabetes mellitus without complications Status: Acute Assessment and Plan: history of diabetes. She is on Lantus 25 units daily, lispro 5 units t.i.d. with meals, and a 1000 mg metformin daily. * Diabetic diet * a.c. HS Accu-Cheks * continue lispro 5 units t.i.d. with meals. low-dose SSI * continue Lantus 25 units * hypoglycemia protocol ordered (7) Atrial fibrillation: Code(s): I48.91 - Unspecified atrial fibrillation Status: Acute Assessment and Plan: history of atrial fibrillation rate controlled on amiodarone 200 mg daily and metoprolol tartrate 12.5 mg b.i.d.. patient previously failed Eliquis developing an atrial thrombus while on therapy. * Continue rate control medications * continue warfarin 2 mg 6 days a week ( Friday through Friday) and warfarin 1.5 mg 1 day a week ( Friday) * She was having some episodes of low heart rate today so her metoprolol was held. May consider stopping amiodarone and continuing with metoprolol. Subjective Date/time seen: 09/07/24 11:23 Interval history: Patient on bed resting well working with therapy and she has no complaint of any acute pain. Patient will have home health she will be leaving on 09/11 Exam Narrative: General: appears comfortable, in no acute distress on 3 L NC. Respiratory: breathing is unlabored with even chest rise/fall, lungs are clear without wheezing, rhonchi, and crackles Cardiovascular: Rate and rhythm regular, normal s1s2, no murmur Abdomen: Soft, round, non-tender, active bowel sounds Extremities: No cyanosis, +1-2 BLE edema left right worse than left, no clubbing. Pulses 2/2 Neuro: A&O x 4 Skin: Warm, dry, intact Objective Data Vital Signs Vital Signs: Vital Signs - 24 hr 09/06/24 16:00 09/06/24 20:00 09/07/24 00:00 Temperature 96.5 F L 97.2 F L Pulse Rate 76 76 91 Respiratory Rate 16 16 17 Blood Pressure 121/77 111/78 Pulse Oximetry 100 100 99 Oxygen Delivery Nasal Cannula Nasal Cannula Nasal Cannula Oxygen Flow Rate 2 2 2 09/07/24 08:00 09/07/24 08:00 09/07/24 08:25 Temperature 96.8 F L Pulse Rate 116 H 116 H 116 H Respiratory Rate 14 14 Blood Pressure 116/89 Pulse Oximetry 100 100 Oxygen Delivery Nasal Cannula Nasal Cannula Oxygen Flow Rate 2 2 09/07/24 09:26 Temperature Pulse Rate 116 H Respiratory Rate Blood Pressure Pulse Oximetry Oxygen Delivery Oxygen Flow Rate Intake/Output Intake/Output: Intake & Output 09/04/24 09/05/24 09/06/24 09/07/24 23:59 23:59 23:59 23:59 Intake Total 1700 1750 2200 600 Output Total 3 Balance 1697 1750 2200 600 Meds/Results Medications: Active Medications Generic Name Dose Route Start Last Admin Trade Name Freq PRN Reason Stop Dose Admin Acetaminophen 650 mg 08/30/24 18:00 09/07/24 05:13 Acetaminophen 325 Mg Tablet PO 650 mg Q6H [facility] Administration Alendronate Sodium 70 mg 09/02/24 06:30 09/02/24 06:25 Alendronate Sodium 70 Mg Tablet PO 70 mg Th@0630 [facility] Administration Amiodarone HCl 200 mg 08/31/24 08:40 09/07/24 08:25 Amiodarone Hcl 200 Mg Tablet PO 200 mg DAILY@0800 [facility] Administration Artificial Tears 2 drop 08/30/24 17:01 Artificial Tears Ophth Soln 15 Ml Bottle EACH EYE TID PRN Dry Eye(S) Aspirin 81 mg 08/31/24 09:00 09/07/24 09:25 Aspirin 81 Mg Enteric Tablet PO 81 mg DAILY [facility] Administration Atorvastatin Calcium 20 mg 08/31/24 09:00 09/07/24 09:24 Atorvastatin 10 Mg Tablet PO 20 mg DAILY [facility] Administration Bisacodyl 10 mg 08/30/24 17:01 Bisacodyl 10 Mg Suppository RECTAL DAILY PRN Constipation Calcium Carbonate 400 mg 08/31/24 09:00 09/07/24 09:23 Calcium Carbonate (Tums) 500 Mg (200 Mg Elemental) PO 400 mg TID [facility] Administration Cyanocobalamin 1,000 mcg 08/31/24 13:00 08/31/24 12:45 Cyanocobalamin Inj 1,000 Mcg/Ml Vial IM 1,000 mcg MONTHLY [facility] Administration Cyclobenzaprine HCl 10 mg 08/30/24 17:01 09/06/24 20:29 Cyclobenzaprine Hcl 10 Mg Tablet PO 10 mg TID PRN Administration Muscle Spasms Dextrose 12.5 gm 08/30/24 17:06 Dextrose 50% 25 Gm/50 Ml Syringe IV PUSH PRN PRN Hypoglycemia Protocol Duloxetine HCl 60 mg 08/31/24 09:00 09/07/24 09:24 Duloxetine Hcl 30 Mg Capsule.Dr PO 60 mg DAILY [facility] Administration Empagliflozin 10 mg 08/31/24 09:00 09/07/24 09:23 Empagliflozin 10 Mg Tablet PO 10 mg DAILY [facility] Administration Ergocalciferol 50,000 units 09/03/24 09:00 09/03/24 08:02 Ergocalciferol 50,000 Units Capsule PO 50,000 units WEEKLY@0900 [facility] Administration Furosemide 40 mg 08/31/24 09:00 09/07/24 09:24 Furosemide 40 Mg Tablet PO 40 mg DAILY [facility] Administration Glucagon 1 mg 08/30/24 17:06 Glucagon For Inj 1 Mg Vial IM PRN PRN Hypoglycemia Protocol Glucose 15 gm 08/30/24 17:06 Glucose Oral Gel 15 Gm Of Glucse In 37.5 Gm Tube PO PRN PRN Hypoglycemia Protocol Hydrocortisone 1 applic 08/30/24 17:21 09/03/24 08:09 Hydrocortisone 2.5% Cream 30 Gm Tube RECTAL 1 applic QID PRN Administration Hemorrhoids Hydrocortisone Acetate 25 mg 08/30/24 17:19 09/01/24 09:02 Hydrocortisone Acetate 25 Mg Suppository RECTAL 25 mg DAILY PRN Administration Hemorrhoids Dextrose 1,000 mls @ 100 mls/hr 08/30/24 17:06 Dextrose 5% 1,000 Ml IVPB PRN PRN Hypoglycemia Protocol Insulin Glargine 25 units 08/31/24 09:00 09/07/24 08:20 Insulin Glargine (*Bkc) 1,000 Units/10 Ml Vial SUB-Q 25 units QAM [facility] Administration Insulin Human Lispro 5 units 08/31/24 08:00 09/07/24 09:35 Insulin Human Lispro (*Bkc) 1,000 Units/10 Ml Vial SUB-Q 5 units ACINSULIN [facility] Administration Insulin Human Lispro 2 - 5 units 08/31/24 08:00 09/07/24 09:16 Insulin Human Lispro (*Bkc) 1,000 Units/10 Ml Vial SUB-Q Not Given TIDWM [facility] Protocol Levothyroxine Sodium 100 mcg 08/31/24 06:30 09/07/24 05:13 Levothyroxine Sodium 100 Mcg Tablet PO 100 mcg DAILY@0630 [facility] Administration Levothyroxine Sodium 25 mcg 08/31/24 06:30 09/07/24 05:13 Levothyroxine Sodium 25 Mcg Tablet PO 25 mcg DAILY@0630 [facility] Administration Melatonin 5 mg 09/03/24 21:00 09/06/24 20:28 Melatonin 5 Mg Tablet PO 5 mg HS [facility] Administration Metoprolol Succinate 12.5 mg 09/07/24 09:00 09/07/24 09:26 Metoprolol Succinate Ext Rel 12.5 Mg Tabcr PO 12.5 mg QAM [facility] Administration Midodrine 10 mg 08/31/24 09:00 09/07/24 09:24 Midodrine Hcl 2.5 Mg Tablet PO 10 mg TID [facility] Administration Non-Formulary Medication 1 patch 09/01/24 09:00 09/01/24 09:00 Buprenorphine TOPICAL 10/01/24 08:59 1 patch WEEKLY@0900 [facility] Administration Ondansetron HCl 4 mg 08/30/24 17:01 Ondansetron Hcl Odt 4 Mg Tablet PO Q6H PRN Nausea And Vomiting Oxycodone HCl 10 mg 08/30/24 17:01 09/07/24 09:26 Oxycodone Hcl (*Crx) 5 Mg Tab Ir PO 10 mg Q4H PRN Administration PAIN RATED 7-10 Pantoprazole Sodium 40 mg 08/30/24 17:25 09/07/24 09:23 Pantoprazole 40 Mg Tablet PO 40 mg BID [facility] Administration Potassium Chloride 20 meq 08/31/24 09:00 09/07/24 09:24 Potassium Chloride 20 Meq Er Tablet PO 20 meq DAILY [facility] Administration Pregabalin 50 mg 08/30/24 17:35 09/07/24 09:26 Pregabalin (*Crx) 50 Mg Capsule PO 50 mg BID [facility] Administration Pregabalin 25 mg 08/30/24 17:35 09/07/24 09:26 Pregabalin (*Crx) 25 Mg Capsule PO 25 mg BID [facility] Administration Ropinirole HCl 0.25 mg 08/30/24 21:00 09/06/24 20:28 Ropinirole Hcl 0.25 Mg Tablet PO 0.25 mg HS [facility] Administration Sacubitril/Valsartan 1 tab 08/30/24 21:00 09/07/24 09:25 Sacubitril/Valsartan 24-26 Mg Tablet PO 1 tab Q12HR [facility] Administration Senna/Docusate Sodium 1 tab 09/04/24 21:00 09/06/24 20:28 Senna/Docusate Sodium Tablet PO 1 tab HS [facility] Administration Sodium Chloride 2 spray 08/30/24 17:01 Saline 0.65% Alexy Soln 44 Ml Btl NASAL Q2H PRN Dry Nasal Passages Warfarin Sodium 2 mg 08/30/24 18:35 09/06/24 16:29 Warfarin (*Pbkc) 2 Mg Tablet PO 2 mg [id number]@1700 [facility] Administration Warfarin Sodium 1 mg/ Warfarin 1.5 mg 09/12/24 17:00 Sodium 0.5 mg PO Metzger@1700 [facility] Labs Labs: Laboratory Results - last 24 hr 09/06/24 09/06/24 09/06/24 11:47 16:33 20:27 PT INR POC Capillary Glucose 248 H 123 H 230 H 09/07/24 09/07/24 05:18 07:59 PT 22.3 H INR 2.2 POC Capillary Glucose 150 H
[2024-09-07 11:56] LABS: Glucose Point of Care 209 mg/dl (65-105)
[2024-09-07] MEDS: INSULIN HUMAN LISPRO (*BKC) 1,000 UNITS/10 ML VIAL SUB-Q (12:10)
[2024-09-07 16:00] VITALS: BP 124/74; PULSE 88; RESP 16; TEMP 36.6; O2SAT 98
[2024-09-07 17:00] LABS: Glucose Point of Care 131 mg/dl (65-105)
[2024-09-07] MEDS: FLUCONAZOLE 150 MG TABLET PO (17:29)
[2024-09-07] MEDS: WARFARIN (*PBKC) 2 MG TABLET PO (17:31)
[2024-09-07] MEDS: MELATONIN 5 MG TABLET PO (20:53)
[2024-09-07] MEDS: SENNA/DOCUSATE SODIUM TABLET 1 TAB PO (20:54)
[2024-09-07] MEDS: rOPINIRole HCL 0.25 MG TABLET PO (20:54)
[2024-09-07] MEDS: CYCLOBENZAPRINE HCL 10 MG TABLET PO (20:54)
[2024-09-07 21:00] LABS: Glucose Point of Care 245 mg/dl (65-105)
[2024-09-08] VITALS: BP 123/85; PULSE 80; RESP 15; TEMP 36.4; O2SAT 98
[2024-09-08] MEDS: ACETAMINOPHEN 325 MG TABLET 650 MG PO ×4 (00:26→18:07)
[2024-09-08] MEDS: oxyCODONE HCL (*CRX) 5 MG TAB IR 10 MG PO ×5 (00:28→20:52)
[2024-09-08 05:30] VITALS: O2SAT 98
[2024-09-08] MEDS: LEVOTHYROXINE SODIUM 25 MCG TABLET PO (05:30)
[2024-09-08] MEDS: LEVOTHYROXINE SODIUM 100 MCG TABLET PO (05:30)
[2024-09-08 05:32] LABS: INR 2.3; Prothrombin Time 23.4 Seconds (9.50-12.1)
[2024-09-08 08:00] VITALS: BP 95/72; PULSE 98; RESP 14; TEMP 36.2; O2SAT 98
[2024-09-08 08:06] VITALS: PULSE 93
[2024-09-08] MEDS: AMIODARONE HCL 200 MG TABLET PO (08:06)
[2024-09-08 08:12] LABS: Glucose Point of Care 168 mg/dl (65-105)
[2024-09-08] MEDS: INSULIN HUMAN LISPRO (*BKC) 1,000 UNITS/10 ML VIAL 5 UNITS SUB-Q ×3 (08:20→16:47)
[2024-09-08] MEDS: [UNRECOGNIZED DRUG - OTHER] TOPICAL (09:00)
[2024-09-08] MEDS: BUPRENORPHINE TOPICAL (09:00)
[2024-09-08] MEDS: PANTOPRAZOLE 40 MG TABLET PO ×2 (09:05→16:44)
[2024-09-08] MEDS: POTASSIUM CHLORIDE 20 MEQ ER TABLET PO (09:05)
[2024-09-08] MEDS: ASPIRIN 81 MG ENTERIC TABLET PO (09:05)
[2024-09-08] MEDS: SACUBITRIL/VALSARTAN 24-26 MG TABLET 1 TAB PO ×2 (09:05→20:52)
[2024-09-08] MEDS: DULoxetine HCL 30 MG CAPSULE.DR 60 MG PO (09:05)
[2024-09-08 09:06] VITALS: PULSE 98
[2024-09-08] MEDS: ATORVASTATIN 10 MG TABLET 20 MG PO (09:06)
[2024-09-08] MEDS: PREGABALIN (*CRX) 50 MG CAPSULE PO ×2 (09:06→16:43)
[2024-09-08] MEDS: METOPROLOL SUCCINATE EXT REL 12.5 MG TABCR PO (09:06)
[2024-09-08] MEDS: PREGABALIN (*CRX) 25 MG CAPSULE PO ×2 (09:07→16:44)
[2024-09-08] MEDS: EMPAGLIFLOZIN 10 MG TABLET PO (09:07)
[2024-09-08] MEDS: FUROSEMIDE 40 MG TABLET PO (09:07)
[2024-09-08] MEDS: MIDODRINE HCL 2.5 MG TABLET 10 MG PO ×3 (09:07→16:42)
[2024-09-08] MEDS: CALCIUM CARBONATE (TUMS) 500 MG (200 MG ELEMENTAL) 400 MG PO ×3 (09:07→16:42)
[2024-09-08] MEDS: INSULIN GLARGINE (*BKC) 1,000 UNITS/10 ML VIAL 25 UNITS SUB-Q (09:24)
[2024-09-08] MEDS: INSULIN HUMAN LISPRO (*BKC) 1,000 UNITS/10 ML VIAL SUB-Q ×2 (12:00→16:47)
[2024-09-08 12:08] LABS: Glucose Point of Care 214 mg/dl (65-105)
[2024-09-08 16:00] VITALS: BP 97/82; PULSE 93; RESP 20; TEMP 36.2; O2SAT 97
[2024-09-08 16:44] LABS: Glucose Point of Care 207 mg/dl (65-105)
[2024-09-08] MEDS: WARFARIN (*PBKC) 2 MG TABLET PO (16:52)
[2024-09-08] MEDS: rOPINIRole HCL 0.25 MG TABLET PO (20:52)
[2024-09-08] MEDS: MELATONIN 5 MG TABLET PO (20:52)
[2024-09-08] MEDS: SENNA/DOCUSATE SODIUM TABLET 1 TAB PO (20:53)
[2024-09-08] MEDS: CYCLOBENZAPRINE HCL 10 MG TABLET PO (20:53)
[2024-09-08 21:16] LABS: Glucose Point of Care 244 mg/dl (65-105)
[2024-09-09] VITALS: BP 134/78; PULSE 85; RESP 16; TEMP 35.9; O2SAT 99
[2024-09-09] MEDS: ACETAMINOPHEN 325 MG TABLET 650 MG PO ×4 (00:21→17:34)
[2024-09-09] MEDS: oxyCODONE HCL (*CRX) 5 MG TAB IR 10 MG PO ×4 (01:33→21:00)
[2024-09-09 05:28] LABS: INR 2.9; Prothrombin Time 28.8 Seconds (9.50-12.1)
[2024-09-09 05:30] VITALS: O2SAT 98
[2024-09-09] MEDS: ALENDRONATE SODIUM 70 MG TABLET PO (06:55)
[2024-09-09] MEDS: LEVOTHYROXINE SODIUM 100 MCG TABLET PO (06:55)
[2024-09-09] MEDS: LEVOTHYROXINE SODIUM 25 MCG TABLET PO (06:55)
[2024-09-09 07:48] LABS: Glucose Point of Care 194 mg/dl (65-105)
[2024-09-09 08:00] VITALS: BP 128/89; PULSE 101; RESP 14; TEMP 36.6; O2SAT 97
[2024-09-09] MEDS: INSULIN HUMAN LISPRO (*BKC) 1,000 UNITS/10 ML VIAL 5 UNITS SUB-Q ×3 (08:10→17:36)
[2024-09-09 08:20] VITALS: PULSE 100
[2024-09-09] MEDS: AMIODARONE HCL 200 MG TABLET PO (08:20)
[2024-09-09] MEDS: POTASSIUM CHLORIDE 20 MEQ ER TABLET PO (09:40)
[2024-09-09] MEDS: CALCIUM CARBONATE (TUMS) 500 MG (200 MG ELEMENTAL) 400 MG PO ×3 (09:40→17:34)
[2024-09-09] MEDS: EMPAGLIFLOZIN 10 MG TABLET PO (09:40)
[2024-09-09] MEDS: PANTOPRAZOLE 40 MG TABLET PO ×2 (09:40→17:35)
[2024-09-09] MEDS: DULoxetine HCL 30 MG CAPSULE.DR 60 MG PO (09:40)
[2024-09-09] MEDS: ASPIRIN 81 MG ENTERIC TABLET PO (09:41)
[2024-09-09] MEDS: SACUBITRIL/VALSARTAN 24-26 MG TABLET 1 TAB PO ×2 (09:41→20:59)
[2024-09-09] MEDS: MIDODRINE HCL 2.5 MG TABLET 10 MG PO ×3 (09:41→17:34)
[2024-09-09 09:42] VITALS: PULSE 100
[2024-09-09] MEDS: PREGABALIN (*CRX) 50 MG CAPSULE PO ×2 (09:42→17:35)
[2024-09-09] MEDS: METOPROLOL SUCCINATE EXT REL 12.5 MG TABCR PO (09:42)
[2024-09-09] MEDS: FUROSEMIDE 40 MG TABLET PO (09:43)
[2024-09-09] MEDS: ATORVASTATIN 10 MG TABLET 20 MG PO (09:43)
[2024-09-09] MEDS: PREGABALIN (*CRX) 25 MG CAPSULE PO ×2 (09:43→17:35)
[2024-09-09 11:54] LABS: Glucose Point of Care 205 mg/dl (65-105)
[2024-09-09] MEDS: INSULIN HUMAN LISPRO (*BKC) 1,000 UNITS/10 ML VIAL SUB-Q ×2 (12:10→17:36)
[2024-09-09 16:00] VITALS: BP 110/86; PULSE 92; RESP 18; TEMP 36.1; O2SAT 100
[2024-09-09 16:29] LABS: Glucose Point of Care 213 mg/dl (65-105)
[2024-09-09] MEDS: WARFARIN (*PBKC) 2 MG TABLET PO (17:38)
[2024-09-09] MEDS: MELATONIN 5 MG TABLET PO (20:59)
[2024-09-09] MEDS: SENNA/DOCUSATE SODIUM TABLET 1 TAB PO (20:59)
[2024-09-09] MEDS: CYCLOBENZAPRINE HCL 10 MG TABLET PO (20:59)
[2024-09-09 21:00] LABS: Glucose Point of Care 273 mg/dl (65-105)
[2024-09-09] MEDS: rOPINIRole HCL 0.25 MG TABLET PO (21:00)
[2024-09-10] VITALS: BP 137/91; PULSE 91; RESP 18; TEMP 36.9; O2SAT 99
[2024-09-10] MEDS: ACETAMINOPHEN 325 MG TABLET 650 MG PO ×3 (00:30→12:03)
[2024-09-10] MEDS: oxyCODONE HCL (*CRX) 5 MG TAB IR 10 MG PO ×2 (04:22→08:41)
[2024-09-10 05:30] VITALS: O2SAT 99
[2024-09-10] MEDS: LEVOTHYROXINE SODIUM 100 MCG TABLET PO (05:52)
[2024-09-10] MEDS: LEVOTHYROXINE SODIUM 25 MCG TABLET PO (05:52)
[2024-09-10 07:57] LABS: Glucose Point of Care 158 mg/dl (65-105)
[2024-09-10 08:00] VITALS: BP 113/90; PULSE 102; RESP 16; RESP 161; TEMP 36.6; O2SAT 98
[2024-09-10] MEDS: INSULIN GLARGINE (*BKC) 1,000 UNITS/10 ML VIAL 25 UNITS SUB-Q (08:37)
[2024-09-10] MEDS: INSULIN HUMAN LISPRO (*BKC) 1,000 UNITS/10 ML VIAL 5 UNITS SUB-Q ×2 (08:38→12:02)
[2024-09-10] MEDS: CALCIUM CARBONATE (TUMS) 500 MG (200 MG ELEMENTAL) 400 MG PO ×2 (08:40→12:03)
[2024-09-10 08:42] VITALS: PULSE 102
[2024-09-10] MEDS: METOPROLOL SUCCINATE EXT REL 12.5 MG TABCR PO (08:42)
[2024-09-10] MEDS: ASPIRIN 81 MG ENTERIC TABLET PO (08:43)
[2024-09-10] MEDS: EMPAGLIFLOZIN 10 MG TABLET PO (08:43)
[2024-09-10] MEDS: rOPINIRole HCL 0.25 MG TABLET PO (08:43)
[2024-09-10] MEDS: CYCLOBENZAPRINE HCL 10 MG TABLET PO (08:44)
[2024-09-10] MEDS: FUROSEMIDE 40 MG TABLET PO (08:44)
[2024-09-10] MEDS: POTASSIUM CHLORIDE 20 MEQ ER TABLET PO (08:45)
[2024-09-10] MEDS: ATORVASTATIN 10 MG TABLET 20 MG PO (08:46)
[2024-09-10] MEDS: DULoxetine HCL 30 MG CAPSULE.DR 60 MG PO (08:46)
[2024-09-10] MEDS: SACUBITRIL/VALSARTAN 24-26 MG TABLET 1 TAB PO (08:47)
[2024-09-10] MEDS: PREGABALIN (*CRX) 50 MG CAPSULE PO (08:47)
[2024-09-10] MEDS: MIDODRINE HCL 2.5 MG TABLET 10 MG PO ×2 (08:47→12:03)
[2024-09-10] MEDS: PREGABALIN (*CRX) 25 MG CAPSULE PO (08:47)
[2024-09-10 08:48] VITALS: PULSE 102
[2024-09-10] MEDS: AMIODARONE HCL 200 MG TABLET PO (08:48)
[2024-09-10] MEDS: PANTOPRAZOLE 40 MG TABLET PO (08:48)
[2024-09-10] MEDS: ERGOCALCIFEROL 50,000 UNITS CAPSULE 50000 UNITS PO (09:14)
[2024-09-10 09:16] LABS: Basophils Absolute Auto 0.06 K/mm3 (0.00-0.10); Basophils Percent Auto 0.6 % (0.0-1.0); Eosinophils Percent Auto 1.1 % (1.0-6.0); Hematocrit 32.2 % (35.0-49.0); Hemoglobin 8.4 g/dL (12.0-15.0); Immature Granulocyte Absolute 0.13 K/mm3 (0.00-0.00); Immature Granulocyte Percent A 1.4 % (0.0-0.0); Lymphocytes Absolute Auto 1.81 K/mm3 (1.10-4.50); Lymphocytes Percent Auto 19.4 % (18.0-42.0); Mean Corpuscular HGB Conc 26.1 g/dL (32-36); Mean Corpuscular Hemoglobin 19.1 pg (27.0-31.0); Mean Corpuscular Volume 73.3 fL (78.0-102.0); Mean Platelet Volume 9.2 fl (9.2-11.8); Monocytes Absolute Auto 0.67 K/mm3 (0.10-0.90); Monocytes Percent Auto 7.2 % (2.0-11.0); Neutrophils Absolute Auto 6.57 K/mm3 (1.70-7.20); Neutrophils Percent Auto 70.3 % (50.0-70.0); Nucleated Red Blood Cells Absolute Auto 0.08 K/mm3 (0.00-0.00); Nucleated Red Blood Cells Perc 0.9 % (0-0.0); Platelet Count Result 394 K/mm3 (150-420); Red Blood Count 4.39 M/mm3 (4.20-5.40); Red Cell Distribution Width 20.3 % (11.6-14.4); White Blood Count 9.3 K/mm3 (4.8-10.8)
[2024-09-10 09:33] LABS: INR 2.8; Prothrombin Time 27.7 Seconds (9.50-12.1)
[2024-09-10 09:36] LABS: Alanine Aminotransferase 38 U/L (14-59); Albumin Level 3.9 g/dL (3.4-5.0); Alkaline Phosphatase 91 U/L (46-116); Anion Gap 9 mmol/L (4-12); Aspartate Amino Transferase < 10 U/L (15-37); Bilirubin,Total 0.5 mg/dL (0.00-1.00); Blood Urea Nitrogen 12 mg/dL (7-18); Calcium 8.9 mg/dL (8.5-10.1); Carbon Dioxide 32 mmol/L (21-32); Chloride 101 mmol/L (98-108); Estimated CRCL calculation 55 ml/min; Estimated Glomerular Filt Rate > 60; Glucose 360 mg/dL (70-99); Osmolality Calculated 308 mOsm/kg (285-295); Sodium 142 mmol/L (136-145); Total Protein 6.7 g/dL (6.4-8.2)
--- NOTE | 2024-09-10 09:41 | PC.NURSE ---
Assessed pain at 0941 post medication administration at 0841 . Patient rates pain at 5. At the time of administration pain was rated at 7.
--- NOTE | 2024-09-10 11:31 | P.DS_ITS ---
DS: Admitting Diagnosis Discharge Date 09/10/24 Admitting Diagnosis debilitated CHF hypothyroidism chronic pain chronic respiratory failure diabetes atrial fibrillation DS: Discharge Diagnosis Discharge Diagnosis (1) Debilitated: Code(s): R53.81 - Other malaise Status: Acute (2) CHF (congestive heart failure): Code(s): I50.9 - Heart failure, unspecified Status: Acute (3) Hypothyroidism: Code(s): E03.9 - Hypothyroidism, unspecified Status: Acute Assessment and Plan: continue levothyroxine (4) Chronic pain: Code(s): G89.29 - Other chronic pain Status: Acute (5) Chronic respiratory failure: Code(s): J96.10 - Chronic respiratory failure, unspecified whether with hypoxia or hypercapnia Status: Acute (6) Diabetes: Code(s): E11.9 - Type 2 diabetes mellitus without complications Status: Acute (7) Atrial fibrillation: Code(s): I48.91 - Unspecified atrial fibrillation Status: Acute DS: Summary Hospital Course Reason for hospitalization: debilitated CHF hypothyroidism chronic pain chronic respiratory failure diabetes atrial fibrillation Hospital Course: This is a 58-year-old female who transferred from [facility] for swing bed program on 08/31/2024. Patient was at [facility] for cardiology consult as she was found to be taking 2 different beta blockers Lopressor in Coreg and had a severely reduced ejection fraction of 15- 20%. She was started on Entresto, Jardiance, and Lasix. When she had her echocardiogram they found that she had an apical thrombus and was started on Eliquis initially and then transitioned to warfarin via Lovenox bridge. She was having weakness at that hospital and PT and OT recommended SNF placement. While at [facility] swing bed program she received therapy who optimized her with exercises and ambulation. She is still however unable to ambulate long distances due to her fatigue likely due to her reduced ejection fraction. She was able to ambulate 20 ft with standby assist today. She is stable for discharge at this time. She will be going home with [facility] for additional rehab needs. She will need to follow up with her Cardiology antibiotic 4 weeks. final diagnosis: generalized deconditioning Status at Discharge Cognitive/behavioral status at discharge: Alert and oriented x3 Functional status at discharge: uses cane/walker Overall status at discharge: patient is progressing back to baseline Time Spent with Patient Time attestation: Total time spent providing and/or coordinating discharge services: Time spent: Greater than 30 minutes Exam Narrative: General: In no acute distress, well nourished Head: atraumatic, no encephalopathy Eyes: PERRLA, sclera clear ENT: moist mucous membranes, nasal passages clear Neck: supple, no JVD, no adenopathy, trachea midline Cardiac: Normal S1 and S2. No murmur, gallops or friction rubs, peripheral pulses intact. Respiratory: Lungs clear to auscultation, no adventitious lung sounds, currently on baseline 2L NC Gastrointestinal: soft, non-distended, non-tender, normoactive bowel sounds. : voiding without difficulty. Extremities: moves all extremities well, no edema Skin: clean, dry, intact. No wounds or lesions. Neuro: Alert and oriented x4, cranial nerves intact, no neuro deficits. Psych: normal mood, normal affect, interactive DS: Data Data Completed and Pending Completed studies during hospitalization: None Pending studies at discharge: None Labs on day of discharge: Labs from last 24 hours 09/10/24 09/10/24 09/09/24 09:10 07:52 20:59 WBC 9.3 RBC 4.39 Hgb 8.4 L Hct 32.2 L MCV 73.3 L MCH 19.1 L MCHC 26.1 L RDW 20.3 H Plt Count 394 MPV 9.2 Immature Gran % (Auto) 1.4 H Neut % (Auto) 70.3 H Lymph % (Auto) 19.4 Barren % (Auto) 7.2 Eos % (Auto) 1.1 Baso % (Auto) 0.6 Lymph # (Auto) 1.81 Barren # (Auto) 0.67 Eos # (Auto) 0.10 Baso # (Auto) 0.06 Abs Immat Gran (auto) 0.13 H Absolute Neuts (auto) 6.57 Absolute Nucleated RBC 0.08 H Nucleated RBC % 0.9 H PT 27.7 H INR 2.8 Sodium 142 Potassium 4.0 Chloride 101 Carbon Dioxide 32 Anion Gap 9 BUN 12 Creatinine 0.78 Estim Creat Clear Calc 55 Estimated GFR > 60 Glucose 360 H POC Capillary Glucose 158 H 273 H Calculated Osmolality 308 H Calcium 8.9 Total Bilirubin 0.5 AST < 10 L ALT 38 Alkaline Phosphatase 91 Total Protein 6.7 Albumin 3.9 09/09/24 09/09/24 16:26 11:46 WBC RBC Hgb Hct MCV MCH MCHC RDW Plt Count MPV Immature Gran % (Auto) Neut % (Auto) Lymph % (Auto) Barren % (Auto) Eos % (Auto) Baso % (Auto) Lymph # (Auto) Barren # (Auto) Eos # (Auto) Baso # (Auto) Abs Immat Gran (auto) Absolute Neuts (auto) Absolute Nucleated RBC Nucleated RBC % PT INR Sodium Potassium Chloride Carbon Dioxide Anion Gap BUN Creatinine Estim Creat Clear Calc Estimated GFR Glucose POC Capillary Glucose 213 H 205 H Calculated Osmolality Calcium Total Bilirubin AST ALT Alkaline Phosphatase Total Protein Albumin Procedures/Treatments: none Discharge Plan Discharge Attending physician on discharge: Osvaldo Laguna Discharging Clinician: Debbie Youngblood Anticipated Discharge Date/Time: 09/10/24 11:10 Patient Disposition: Home, Self-Care Activity: as tolerated Diet: as tolerated and heart healthy Discharge Instructions: * continue rehab exercises with [facility] services * Check INR either at home with your meter or on Friday of next week with requisite * Follow up with primary care doctor Patient Instructions: Antibiotic Form, Furosemide (By mouth), Oxycodone, Rapid Release (By mouth), Fall Prevention for Older Adults (DC) Patient Language: Nigerian Stand Alone Forms: General Discharge Information Follow-up/Referrals: Lis,MD Juni [Primary Care Provider] - 1 week Discharge Medications: New insulin glargine [Lantus U-100 Insulin] 100 unit/mL Solution 35 unit subcut QAM Qty: 10 0RF metformin 500 mg tablet 500 mg PO BID Qty: 30 0RF Continued oxymetazoline [Nasal Decongestant (oxymetazl)] 0.05 % [place],Non-Aerosol 1 spray intranasal Q12HR PRN (Reason: nose bleed) Qty: 15 0RF Rx Instructions: use in case of nose bleeding and hold pressure for 20 minutes acetaminophen 325 mg Tablet 650 mg PO Q6H buprenorphine 10 mcg/hour Patch Weekly 1 patch TRANSDERMAL Q7D calcium carbonate 500 mg calcium (1,250 mg) Tablet,Chewable 1,000 mg PO TID empagliflozin 10 mg Tablet 10 mg PO DAILY furosemide 40 mg Tablet 40 mg PO DAILY hydrocortisone 2.5 % Cream With Perineal Applicator 1 applic RECTAL QID PRN (Reason: Hemorrhoids) metoprolol tartrate 25 mg Tablet 12.5 mg PO BID midodrine 10 mg Tablet 10 mg PO TID Rx Instructions: do not give last dose of day after 6PM or within 4 hrs of bedtime oxycodone 5 mg Tablet 10 mg PO Q4H PRN (Reason: Pain) pantoprazole 40 mg Tablet,Delayed Release (Dr/Ec) 40 mg PO BID alendronate 70 mg Tablet 70 mg PO WEEKLY Rx Instructions: Patient takes on artifi.tears(hypromellose)(PF) 0.3 % Drops 2 drp EACH EYE TID PRN (Reason: Dry Eye(S)) bisacodyl 5 mg Tablet,Delayed Release (Dr/Ec) 10 mg PO DAILY PRN (Reason: Constipation) Rx Instructions: give if tolerating P.O. meds Anusol-HC 25 mg 25 mg RECTAL DAILY PRN (Reason: Hemorrhoids) Rx Instructions: Give for internal hemorrhoids Saline Nasal 0.65 % Aerosol,[place] 2 spray INTRANASAL Q2H PRN (Reason: Dry Nasal Passages) warfarin 2 mg Tablet 2 mg PO DAILY Qty: 30 0RF Rx Instructions: Take at 1700 five days a week Friday thru Friday. warfarin 1 mg Tablet 1.5 mg PO WEEKLY Qty: 15 0RF Rx Instructions: Take on Sundays atorvastatin 20 mg Tablet 20 mg PO DAILY aspirin 81 mg Tablet,Delayed Release (Dr/Ec) 81 mg PO DAILY ropinirole 0.25 mg Tablet 0.25 mg PO HS bisacodyl 10 mg Suppository 10 mg RECTAL DAILY PRN (Reason: Constipation) Rx Instructions: give if unable to tolerate P.O. meds levothyroxine 125 mcg Tablet 125 mcg PO DAILY insulin lispro 100 unit/mL Solution 5 unit SUBCUT TIDWMEAL ergocalciferol (vitamin D2) 25,000 unit Capsule 2 unit PO WEEKLY Rx Instructions: Take on Fridays cyclobenzaprine 5 mg Tablet 10 mg PO TID PRN (Reason: Muscle Spasms) duloxetine 60 mg Capsule,Delayed Release(Dr/Ec) 60 mg PO DAILY pregabalin 75 mg Capsule 75 mg PO BID potassium chloride 20 mEq Tablet Extended Release 20 meq PO DAILY Entresto 24-26 mg Tablet 1 tablet PO BID naloxone 4 mg/actuation [place],Non-Aerosol 1 spray INTRANASAL Q3M PRN (Reason: Opioid Reversal) Rx Instructions: spray 1 dose into ONE nostril; alternate nostrils w each dose until help arrives (DME) Dexcom G7 Sensor Rx Instructions: Change every 10 days ondansetron 4 mg Tablet,Disintegrating 4 mg PO Q6H PRN (Reason: Nausea And Vomiting) Qty: 0 0RF Discontinued ergocalciferol (vitamin D2) 25,000 unit Capsule 50,000 unit PO WEEKLY naloxone 4 mg/actuation [place],Non-Aerosol 1 spray INTRANASAL PRN PRN (Reason: Opiate Reversal) Rx Instructions: spray 1 dose into ONE nostril, alternate nostrils with each dose until help arrives. ferrous sulfate 325 mg (65 mg iron) Tablet,Delayed Release (Dr/Ec) 325 mg PO BID Qty: 180 0RF metformin 1,000 mg Tablet 1,000 mg PO DAILY Rx Instructions: with Breakfast cyanocobalamin (vitamin B-12) 1,000 mcg/mL Solution 1,000 mcg IM MONTHLY buprenorphine 10 mcg/hour Patch Weekly 1 patch TRANSDERMAL WEEKLY calcium carbonate-vitamin D3 [Oyster Shell Calcium-Vit D3] 500 mg-5 mcg (200 unit) tablet 2 tablet PO DAILY acetaminophen 325 mg Tablet 650 mg BYMOUTH Q4H PRN (Reason: Fever) Qty: 0 0RF amiodarone 200 mg Tablet 200 mg PO DAILY Qty: 30 0RF Eliquis 5 mg Tablet 5 mg PO BID Qty: 30 0RF cyclobenzaprine 10 mg Tablet 10 mg PO Q6H PRN (Reason: Muscle Spasm) Qty: 60 0RF atorvastatin 20 mg Tablet 20 mg PO DAILY Qty: 30 0RF aspirin [Children's Aspirin] 81 mg Tablet,Chewable 81 mg PO DAILY@0800 Qty: 0 0RF bisacodyl [Laxative (bisacodyl)] 5 mg Tablet,Delayed Release (Dr/Ec) 10 mg PO DAILY PRN (Reason: Constipation) Qty: 0 0RF furosemide 20 mg Tablet 20 mg PO DAILY Qty: 30 0RF duloxetine 60 mg Capsule,Delayed Release(Dr/Ec) 60 mg PO DAILY Qty: 30 0RF polyethylene glycol 3350 [Miralax] 17 gram Powder In Packet 17 g PO QAM PRN (Reason: Constipation - 1st Line) Qty: 0 0RF midodrine 5 mg Tablet 10 mg BYMOUTH TIDWM Qty: 90 0RF pantoprazole 40 mg Tablet,Delayed Release (Dr/Ec) 40 mg PO BID Qty: 60 0RF metformin 1,000 mg Tablet 1,000 mg PO DAILY@0800 Qty: 30 0RF levothyroxine [Synthroid] 125 mcg Tablet 125 mcg PO DAILY@0630 Qty: 30 0RF oxycodone 5 mg Tablet 10 mg PO Q4H PRN (Reason: Pain) Qty: 12 0RF metoprolol tartrate 25 mg Tablet 12.5 mg PO BID Qty: 30 0RF potassium chloride [K-Tab] 20 mEq Tablet Extended Release 20 meq PO DAILY Qty: 30 0RF insulin glargine 100 unit/mL Solution 30 unit SUBCUT DAILY Qty: 100 0RF rizatriptan 10 mg Tablet 10 mg PO PRN PRN (Reason: Migraine Headache) Qty: 30 0RF Rx Instructions: once as needed, may repeat in 2 hours if unresolved, not to exceed 30mg in 24 hours. hydrocortisone 2.5 % Cream With Perineal Applicator 1 applic RECTAL Q4H PRN (Reason: Hemorrhoids) Qty: 10 0RF ropinirole 0.25 mg Tablet 0.25 mg PO DAILY Qty: 30 0RF insulin lispro 100 unit/mL Solution 7 unit SUBCUT TIDWMEAL Qty: 100 0RF Rx Instructions: plus blood glucose mg/dL 150-199: 2 units 200-249: 4 units 250-299: 6 units 300-349: 8 units 350 or greater: 10 units notify provider of blood glucose greater than 299 mg/dL Entresto 24-26 mg Tablet 1 tablet PO BID Qty: 60 0RF insulin glargine 100 unit/mL Solution 25 unit SUBCUT QAM rizatriptan 10 mg Tablet 10 mg PO ONCE MDD 30mg PRN (Reason: Migraine Headache) Rx Instructions: as a single dose. May repeat in 2 hours if unresolved. Patient's own medication. cyanocobalamin (vitamin B-12) 1,000 mcg IM MONTHLY Other Ambulatory Orders: Prothrombin Time INR (Routine) Timeframe: 3 Days Location: Determined by Patient Ordered By: Debbie Youngblood Date of admission: 08/30/24 14:04 Primary Care Provider: Lis,Juni Admitting Provider: Osvaldo Laguna Attending physician on admission: Debbie Youngblood Condition: Improved Quality VTE Prophylaxis VTE prophylaxis: pharmacologic ordered
[2024-09-10 11:41] LABS: Glucose Point of Care 251 mg/dl (65-105)
[2024-09-10] MEDS: INSULIN HUMAN LISPRO (*BKC) 1,000 UNITS/10 ML VIAL SUB-Q (12:02)
--- NOTE | 2024-09-10 14:59 | PC.NURSE ---
Medical Scientific Liaison discussed discharge instructions with patient and patient's daughter. Discharge instructions included a list of discontinued medications that are in fact active. Medical Scientific Liaison placed an x over each medication that is listed under discontinued, but is actually active. Medical Scientific Liaison made sure that patient's daughter, who sets up the medications understands which medications are active and which are not. Nurse also asked ACCOUNTANT to transmit order for warfarin to pharmacy, as this drug is new to patient and initially ordered by doctor at [facility] [place]. Patient's daughter voices understanding of discharge instructions. Personal items gathered by family and sent home with patient. No devices present at discharge.
--- NOTE | 2024-09-10 15:40 | PC.NURSE ---
Patient left unit in w/c, accompanied by nurse and patient's . Patient left hospital grounds in privately owned vehicle. Prescriptions transmitted to [facility] in [place].
--- NOTE | 2024-09-13 10:06 | PC.NURSE ---
doing well, states received dc instructions and re read them this am, no questions at this time
== END 2024-09-10 15:40 | disposition home or self-care (01) | DRG 948 ==
PROVIDERS: Nurse Practitioner Acute Care; Nurse Practitioner Family; Admitting Provider Internal Medicine; PCP Internal Medicine; Visit Provider Nurse Practitioner Acute Care
DX: R53.81 Other malaise (principal); C7A.8 Other malignant neuroendocrine tumors; I48.20 Chronic atrial fibrillation, unspecified; J96.10 Chronic respiratory failure, unspecified whether with hypoxia or hypercapnia; I42.0 Dilated cardiomyopathy; I50.22 Chronic systolic (congestive) heart failure; I11.0 Hypertensive heart disease with heart failure; I25.10 Atherosclerotic heart disease of native coronary artery without angina pectoris; D64.9 Anemia, unspecified; E78.5 Hyperlipidemia, unspecified; E11.9 Type 2 diabetes mellitus without complications; E03.9 Hypothyroidism, unspecified; K58.9 Irritable bowel syndrome, unspecified; K21.00 Gastro-esophageal reflux disease with esophagitis, without bleeding; M81.0 Age-related osteoporosis without current pathological fracture; G89.29 Other chronic pain; G25.81 Restless legs syndrome; G47.33 Obstructive sleep apnea (adult) (pediatric); F41.9 Anxiety disorder, unspecified; F32.A Depression, unspecified; Z79.01 Long term (current) use of anticoagulants; Z95.810 Presence of automatic (implantable) cardiac defibrillator; Z98.1 Arthrodesis status; Z87.891 Personal history of nicotine dependence; Z79.82 Long term (current) use of aspirin; Z79.4 Long term (current) use of insulin
CPT/HCPCS: 36415; 80053; 82948; 83735; 85025; 85027; 85610; 85730; 97110; 97112; 97161; 97165; 97530; 97535; A9270; J1815; J3420

== ENCOUNTER 2024-09-13 13:31 | Outpatient (NON) | payer OTHER, MEDICARE, SELFPAY ==
[2024-09-13 14:44] LABS: INR 2.3; Prothrombin Time 25.7 Seconds (11.1-14.7)
== END 2024-09-13 13:32 | disposition home or self-care (01) ==
LOC: ANHLAB 13:35
PROVIDERS: Nurse Practitioner Acute Care; PCP Internal Medicine; Visit Provider Internal Medicine
DX: I50.9 Heart failure, unspecified (principal); Z79.01 Long term (current) use of anticoagulants; G89.29 Other chronic pain; J96.10 Chronic respiratory failure, unspecified whether with hypoxia or hypercapnia; E03.9 Hypothyroidism, unspecified
CPT/HCPCS: 36415; 85610

== ENCOUNTER 2024-09-22 13:31 | Outpatient (NON) | payer MEDICARE, SELFPAY ==
[2024-09-22 14:00] LABS: INR 1.3; Prothrombin Time 14.4 Seconds (9.50-12.1)
[2024-09-22 15:11] LABS: Add Urine Microscopic? NO; Appearance Urine Clear (Clear); Bilirubin Urine Negative (Negative); Blood Urine Negative (Negative); Color Urine Light Yellow (Yellow); Glucose Urine UA 3+ (Negative); Ketones Urine Negative (Negative); Leukocyte Esterase Ur Negative LEU/UL (Negative); Nitrate Urine Negative (Negative); Protein Urine Negative (Negative); Specific Grav Ur 1.015 (1.010-1.020); Urobilinogen Urine 0.2 mg/dL (0.2-1.0); pH Urine 6.5 (5.0-8.0)
== END 2024-09-22 13:32 | disposition home or self-care (01) ==
PROVIDERS: Visit Provider Internal Medicine
DX: R30.0 Dysuria (principal); I11.0 Hypertensive heart disease with heart failure; I50.23 Acute on chronic systolic (congestive) heart failure; I25.10 Atherosclerotic heart disease of native coronary artery without angina pectoris; E11.65 Type 2 diabetes mellitus with hyperglycemia
CPT/HCPCS: 36415; 81003; 85610

== ENCOUNTER 2024-09-30 15:19 | Outpatient (NON) | payer MEDICARE, SELFPAY ==
[2024-09-30 16:20] LABS: INR 1.9; Prothrombin Time 19.3 Seconds (9.50-12.1)
== END 2024-09-30 15:20 | disposition home or self-care (01) ==
PROVIDERS: Visit Provider Internal Medicine
DX: I11.0 Hypertensive heart disease with heart failure (principal); I50.23 Acute on chronic systolic (congestive) heart failure; I25.10 Atherosclerotic heart disease of native coronary artery without angina pectoris; E11.65 Type 2 diabetes mellitus with hyperglycemia
CPT/HCPCS: 36415; 85610

== ENCOUNTER 2024-10-07 13:48 | Outpatient (NON) | payer MEDICARE, SELFPAY ==
[2024-10-07 14:22] LABS: INR 1.7; Prothrombin Time 17.5 Seconds (9.50-12.1)
--- OUTSIDE RECORDS SUMMARY | 2024-10-15 00:13 | XMS_ITS | Encounter Summary ---
Author Organization [facility] Healthcare Address [address] [place] [address] Care Team Providers Care Semiconductor Development Technician Name Role Phone Kingston Jain DO Unavailable [phone] Juni Hays MD Primary Care Provider [phone] Candido Lobato MD Unavailable Encounter Details Date Type Department Care Team (Latest Contact Info) Description 10/29/2023 1:21 AM ENVIRONMENTAL HEALTH SANITARIAN - 10/29/2023 11:59 PM ENVIRONMENTAL HEALTH SANITARIAN Hospital Encounter [facility] Emergency, Room R Discharge Disposition: Discharge to home or self care Social History Tobacco Use Types Packs/Day Years Used Date Smoking Tobacco: Former Cigarettes 1 5 1 983 - 1987 Smokeless Tobacco: Never Alcohol Use Standard Drinks/Week Comments No 0 (1 standard drink = 0.6 oz pur e alcohol) [facility] Utilities Answer Date Recorded In the past 12 months has [employer] electric, gas, oil, or water company threatened to shut off services in your home? No 10/30/2023 Social Connection and Isolat ion Panel [NHANES] Answer Date Recorded In a typical week, how many times do you talk on the phone with family, friends, or neighbors? More than three times a week 10/30/2023 How often do you get togethe r with friends or relatives? Twice a week 10/30/2023 How often do you attend chur ch or buddhism services? Never 10/30/2023 Do you belong to any clubs o r organizations such as methodist groups, unions, fraternal or athletic groups, or school groups? No 10/30/2023 How often do you attend meet ings of the clubs or organizations you belong to? Never 10/30/2023 Are you , , di vorced, , never , or living with a partner? 10/30/2023 AUDIT-C Answer Date Recorded Q1: How often do you have a drink containing alcohol? Never 10/29/2023 Q2: How many drinks containi ng alcohol do you have on a typical day when you are drinking? Patient does not drink Q3: How often do you have si x or more drinks on one occasion? Never 10/29/2023 Overall Financial Resource Strain (CARDIA) Answe r Date Recorded How hard is it for you to pa y for the very basics like food, housing, medical care, and heating? Not hard at all 10/30/2023 PHQ-2 Answer Date Recorded PHQ-2 Total Score (If total score is 3 or more points, staff should administer the PHQ-9) 1 09/26/2023 Hunger Vital Sign Answer Date Recorded Within the past 12 months, y ou worried that your food would run out before you got the money to buy more. Never true 10/30/19 24 Within the past 12 months, t he food you bought just didn't last and you didn't have money to get more. Never true 10/30/2023 PRAPARE - Transportation Answer Date Re corded In the past 12 months, has l ack of transportation kept you from medical appointments or from getting medications? No 10/13 In the past 12 months, has l ack of transportation kept you from meetings, work, or from getting things needed for daily living? No 10/30/2023 Housing Stability Vital Sign Answer [place] e Recorded In the last 12 months, was t here a time when you were not able to pay the mortgage or rent on time? No 10/30/2023 In the last 12 months, how many places have you lived? 1 10/30/2023 In the last 12 months, was t here a time when you did not have a steady place to sleep or slept in a fpc (including now)? No 10/30/2023 Personal Safety Answer Date Recorded Getting School Help Needed Denies 09/26 Education Answer Date Recorded What is the highest level of school you have completed or the highest degree you have received? Some college, no degree 03/25/2023 Comments No Sex and Gender Information Value Date Recorded Sex Assigned at Not on file Legal Sex Female 2:31 PM ENVIRONMENTAL HEALTH SANITARIAN Gender Identity Not on file Sexual Orientation Not on file Occupation Industry Job Start Date Job End Date On Disability Not on file Not on file Not on file documented as of this encounter Medications at Time of Discharge aspirin 81 mg enteric coated tablet Take 1 tablet (81 mg total) by mouth daily 30 tablet 11 05/31/[address] (CYMBALTA) 60 mg capsule Take 1 capsule (60 mg total) by mouth daily 90 capsule 3 07/03/2023 dexAMETHasone (DECADRON) 6 mg tablet Take 1 tablet (6 mg total) by mouth daily for 4 days 4 tablet 11/02/2023 4 acetaminophen 500 mg capsule Take 1 capsule (500 mg total) by mouth every 4 (four) hours as needed for mild pain (pain scale 1-4) 4 alendronate (FOSAMAX) 70 mg tablet TAKE ONE TABLET BY MOUTH EVERY 7 DAYS IN THE MORNING WITH A FULL GLASS OF WATER ON AN EMPTY STOMACH. DO NOT EAT OR LIE DOWN FOR 30 MINUTES 4 tablet 2 08/04/2023 4 apixaban (ELIQUIS) 5 mg tablet Take 1 tablet (5 mg total) by mouth 2 (two) times a day 60 tablet 11 07/31/2023 4 atorvastatin (LIPITOR) 20 mg tablet Take 1 tablet (20 mg total) by mouth daily 4 blood-glucose sensor ([employer] G7 Sensor) deviceIndications:U ncontrolled type 2 diabetes mellitus with hyperglycemia (HCC),Insulin long-term use (CMS/HCC) (HCC) Change every 10 days 9 each 3 08/08/2023 4 buprenorphine (BUTRANS) 10 mcg/hourIndications :Postlaminectomy syndrome,Other chronic pain APPLY 1 PATCH TOPICALLY TO THE SKIN EVERY 7 DAYS 4 patch 2 07/25/2023 4 calcium carbonate-vitamin D3 (Oyster Shell Calcium-Vit D3) 1,250mg (500mg elemental) - 5 mcg (200 units) per tablet Take 1 tablet by mouth daily 90 tablet 10/16/2023 4 carvediloL (COREG) 25 mg tabletIndications:C hronic systolic CHF (congestive heart failure) (CMS/HCC) ([facility]) TAKE 1 TABLET TWICE A DAY WITH MEALS 180 tablet 3 06/23/2023 4 cyanocobalamin (Vitamin B-12) 1,000 mcg/mL injection Inject 1 mL (1,000 mcg total) into the muscle as instructed every 30 (thirty) days 4 cyclobenzaprine (FLEXERIL) 5 mg tablet Take 1 tablet (5 mg total) by mouth 2 (two) times a day as needed for muscle spasms 180 tablet 1 09/08/2023 4 dapagliflozin (FARXIGA) 10 mg tablet Take 1 tablet (10 mg total) by mouth daily 4 Lumeta G6 Transmitter device 10/14/2023 4 Lumeta G7 Sensor deviceIndications:T ype 2 diabetes mellitus with hyperlipidemia ([facility]) Use as directed 1 each 08/08/2023 4 docusate sodium (COLACE) 100 mg capsuleIndications: constipation Take 1 capsule (100 mg total) by mouth 2 (two) times a day 4 dulaglutide (TRULICITY) 3 mg/0.5 mL pen injectorIndications :type 2 diabetes mellitus 3mg subQ weekly 2 mL 6 08/08/2023 4 Entresto 24-26 mg tabletIndications:c hronic heart failure Take 1 tablet by mouth 2 (two) times a day 180 tablet 3 08/25/2023 4 ergocalciferol (VITAMIN D) 50,000 unit capsule Take 1 capsule (50,000 Units total) by mouth once a week 12 capsule 10/09/2023 4 famotidine (PEPCID) 20 mg tablet Take 1 tablet (20 mg total) by mouth 2 (two) times a day 180 tablet 1 07/01/2023 4 furosemide (LASIX) 40 mg tablet Take 1 tablet (40 mg total) by mouth daily 90 tablet 3 06/20/2023 4 guaiFENesin (ROBITUSSIN) syrup 100 mg/5 mL Take 10 mL (200 mg total) by mouth 4 (four) times a day for 5 days 120 mL 11/01/2023 4 HYDROcodone-acetami nophen (NORCO) 7.5-325 mg per tabletIndications:P ain Take 1 tablet by mouth every 6 (six) hours as needed for pain 4 insulin lispro (HumaLOG) 100 unit/mL pen for injection Inject 10 Units under the skin 3 (three) times a day before meals 45 mL 3 09/30/2023 4 ketoconazole (NIZORAL) 2 % cream APPLY TOPICALLY TWICE A DAY 120 g 5 09/12/2023 4 LEVEMIR 100 unit/mL (3 mL) pen for injection INJECT 38 UNITS UNDER THE SKIN TWICE A DAY 45 mL 5 09/12/2023 4 levothyroxine (SYNTHROID) 125 mcg tablet Take 1 tablet (125 mcg total) by mouth licensed home inspector before breakfast 90 tablet 1 08/04/2023 4 meloxicam (MOBIC) 7.5 mg tablet TAKE 1 TABLET DAILY 30 tablet 11 09/12/2023 4 metFORMIN (GLUCOPHAGE) 1,000 mg tablet TAKE 1 TABLET TWICE A DAY WITH MEALS 60 tablet 11 09/12/2023 4 midodrine (PROAMATINE) 5 mg tablet Take 1 tablet (5 mg total) by mouth 3 (three) times a day 270 tablet 3 06/20/2023 4 omeprazole (PriLOSEC) 20 mg capsule Take 1 capsule (20 mg total) by mouth daily 06/20/2023 4 onabotulinumtoxin A (BOTOX) 200 unit recon soln Inject 200 Units into the skin every 3 (three) months 4 OneTouch Delica Plus Lancet 30 gauge [facility] USE LANCET TO TEST BLOOD SUGAR THREE TIMES A DAY 10 each 06/23/2023 4 OneTouch Ultra Test strip 06/20/2023 4 oxyCODONE (ROXICODONE) 5 mg immediate release tabletIndications:P ostlaminectomy syndrome,Other chronic pain,Lumbar radiculopathy Take 1 tablet (5 mg total) by mouth every 8 (eight) hours as needed for pain 90 tablet 10/01/[address] (PROTONIX) 40 mg EC tablet Take 1 tablet (40 mg total) by mouth daily 90 tablet 3 08/25/2023 4 pen needle, diabetic (BD Tereza 2nd Gen Pen Needle) 32 gauge x /32 needle Use 4 times a day 400 each 3 07/31/2023 4 potassium chloride ER (Klor-Con M20) 20 mEq CR tablet Take 1 tablet (20 mEq total) by mouth daily 90 tablet 3 06/20/2023 4 pregabalin (LYRICA) 75 mg capsule TAKE 1 CAPSULE TWICE A DAY 180 capsule 1 10/15/2023 4 rizatriptan (MAXALT) 10 mg tabletIndications:M igraine Take 1 tablet (10 mg total) by mouth once as needed for migraine May repeat in 2 hours if unresolved. Do not exceed 30 mg in 24 hours. 4 rOPINIRole (REQUIP) 0.25 mg tablet Take 1 tablet (0.25 mg total) by mouth daily 4 senna (SENOKOT) 8.6 mg tablet Take 1 tablet by mouth 2 (two) times a day 4 Trulicity 1.5 mg/0.5 mL pen injector Inject 1 mL (3 mg total) under the skin once a week On 09/13/2023 4 documented as of this encounter Discharge Disposition Disposition Code Departure Means Destination Discharge to home or self care documented in this encounter Plan of Treatment Not on file documented as of this encounter Goals Goal Patient Goal Type Associated Problems Recent Progress Patient-Stated? Author CARLO General Goal - Patient is knowledgeable about condition when worsening and how to respond ACO Care Management Matilda Dooley RN Note: Problem: Knowledge deficit related to signs and symptoms of worsening condition Interventions: - Assess patient's level of understanding related to their condition(s), specific medications and self-management of their chronic conditions. - Send educational materials to patient related to their chronic condition, including signs and symptoms, self-management actions, and serious symptoms that require urgent medical intervention. - Assist patient/provider in developing an action plan for symptom management. - Review with patient weekly: s/s worsening condition, self-management actions to take, when to call CM or provider. [facility] Chronic Pain Care Plan Chronic Care Management Yes Arelis Parkinson RN Note: Problem: Chronic Pain Goals: 1. Minimize further functional decline 2. Maximize quality of life 3. Control pain Strategies: - Activity/exercise program recommendation - Conservative stepwise pain medicine strategy with multi-disciplinary approach - Recommend healthy lifestyle strategies and compensatory methods as needed Reduce the likelihood of falling Lifestyle Yes Sofi Polanco, RAMYA Note: Below are four things you can do to prevent falls: Begin an exercise program to improve your leg strength & balance Ask your doctor or pharmacist to review your medicines Get annual eye check-ups & update your eyeglasses Make your home safer by: Removing clutter & tripping hazards Putting railings on all stairs & adding grab bars in the bathroom Having good lighting, especially on stairs Contact your local community or senior [place] for information on exercise, fall prevention programs, or options for improving home safety. documented as of this encounter Visit Diagnoses Not on filedocumented in this encounter Additional Health Concerns Infection Onset Date Last Indicated Resolved Time CRE Comment:Contact Precautions (gown and gloves) RAMYA Au 09/25/22 08/16/2022 08/16/2022 MDR gram neg/ESBL Comment:Contact Precautions (gown and gloves) RAMYA Au 09/25/22 08/16/2022 08/16/2022 COVID: Suspected 10/29/2023 10/29/2023 10/29/2023 1:03 PM ENVIRONMENTAL HEALTH SANITARIAN Influenza, adult 10/29/2023 10/29/2023 11/05/2023 3:07 AM ENVIRONMENTAL HEALTH SANITARIAN documented as of this encounter Care Teams Semiconductor Development Technician Relationship Specialty Start Date End Date Juni Hays MD [address] [facility] [address] [place] [address] PCP - General Internal Medicine 08/04/20 08/17/24 Kingston Jain DO [address] [facility] [address] [place] [id number] Consulting Physician Cardiovascular Disease 06/20/20 Candido Lobato MD [id number] [facility] [address] [place] [address] Medical Oncology 05/02/23 documented as of this encounter
== END 2024-10-07 13:49 | disposition home or self-care (01) ==
LOC: CHSHH 13:50
PROVIDERS: Visit Provider Internal Medicine
DX: I11.0 Hypertensive heart disease with heart failure (principal); I50.23 Acute on chronic systolic (congestive) heart failure; I25.10 Atherosclerotic heart disease of native coronary artery without angina pectoris; E11.65 Type 2 diabetes mellitus with hyperglycemia
CPT/HCPCS: 36415; 85610

== ENCOUNTER 2024-10-14 11:16 | Outpatient (NON) | payer MEDICARE, SELFPAY ==
[2024-10-14 11:45] LABS: INR 1.4; Prothrombin Time 14.9 Seconds (9.50-12.1)
[2024-10-14 11:55] LABS: Anion Gap 8 mmol/L (4-12); Blood Urea Nitrogen 14 mg/dL (7-18); Calcium 9.2 mg/dL (8.5-10.1); Carbon Dioxide 34 mmol/L (21-32); Chloride 100 mmol/L (98-108); Estimated Glomerular Filt Rate > 60; Glucose 371 mg/dL (70-99); NT Pro B Type Natriuretic Pept 5131 pg/mL (0-125); Osmolality Calculated 309 mOsm/kg (285-295); Potassium 4.7 mmol/L (3.5-5.1); Sodium 142 mmol/L (136-145)
== END 2024-10-14 11:17 | disposition home or self-care (01) ==
LOC: CHSHH 11:20
PROVIDERS: PCP Internal Medicine
DX: I11.0 Hypertensive heart disease with heart failure (principal); I50.23 Acute on chronic systolic (congestive) heart failure; I25.10 Atherosclerotic heart disease of native coronary artery without angina pectoris; E11.65 Type 2 diabetes mellitus with hyperglycemia
CPT/HCPCS: 36415; 80048; 83880; 85610

== ENCOUNTER 2024-10-20 12:41 | Emergency (ER) | payer OTHER, MEDICARE, SELFPAY ==
[2024-10-20] VITALS (49 sets, daily range): BP systolic 90–136; BP diastolic 60–95; PULSE 1–113; RESP 15–22; TEMP 36.6–36.9; O2SAT 93–100
--- NOTE | ~2024-10-20 | XR_ITS ---
Portable chest x-ray Comparison: 08/22/2024 Clinical History: Shortness of breath Findings: Lungs are clear, without focal consolidation or pleural effusion. Cardiomediastinal silho uette is stable, with pacemaker device. There is multilevel thoracic spinal vertebroplasty, with exte nsive thoracolumbar spinal fixation hardware.. Impression: Clear lungs. Chronic findings in the spine, as above. Reviewed, dictated and finalized at location M. ER GRINDER OPERATOR Impression: Clear lungs. Chronic findings in the spine, as above.
--- NOTE | 2024-10-20 12:46 | ED.SOB ---
HPI - SOB/Dyspnea General Chief Complaint: Shortness of Breath/Dyspnea Stated Complaint: sob Time Seen by Provider: 10/20/24 12:46 Source: patient Mode of arrival: ambulatory Limitations: no limitations History of Present Illness HPI Narrative: 58-year-old female with a history of diabetes mellitus, hypothyroidism, dyslipidemia, atrial fibrillation on warfarin, COPD on home oxygen, BI, CHF with an EF of 15% status post ICD, chronic pain presents to the ED with -- worsening shortness of breath for the past few days. patient has dyspnea on exertion and paroxysmal nocturnal dyspnea. Patient is compliant with her medications. -- chest pressure on deep breathing. No chest pain. -- Minimal leg swelling. No fever or chills. No cough. No purulent sputum production. MD elicited complaint: shortness of breath and pain with inspiration Pertinent past history: COPD and congestive heart failure Onset (ago): day(s) ( Two days) Timing: constant Severity: moderate Exacerbating factors: exertion Relieving factors: oxygen Known history of: COPD and congestive heart failure Associated symptoms: pain with inspiration and orthopnea Treatment prior to arrival: none Related Data Home oxygen amount: 3 liters Home Medications ?Medication ?Instructions ?Recorded ?Confirmed ?Last Taken ?Type Dexcom G7 Sensor 12/04/23 08/30/24 Unknown History aspirin 81 mg tablet,delayed 81 mg PO DAILY 12/04/23 08/30/24 08/30/24 08:55 History release atorvastatin 20 mg tablet 20 mg PO DAILY 12/04/23 08/30/24 08/30/24 08:55 History bisacodyl 10 mg rectal suppository 10 mg RECTAL DAILY PRN Constipation 12/04/23 08/30/24 Unknown History cyclobenzaprine 5 mg tablet 10 mg PO TID PRN Muscle Spasms 12/04/23 08/30/24 08/30/24 10:35 History duloxetine 60 mg capsule,delayed 60 mg PO DAILY 12/04/23 08/30/24 08/30/24 08:55 History release ergocalciferol (vitamin D2) 25,000 2 unit PO WEEKLY 12/04/23 08/30/24 Unknown History unit capsule insulin lispro 100 unit/mL 5 unit subcut TIDWMEAL 12/04/23 08/30/24 Unknown History subcutaneous solution levothyroxine 125 mcg tablet 125 mcg PO DAILY 12/04/23 08/30/24 08/30/24 05:30 History naloxone 4 mg/actuation nasal spray 1 spray intranasal Q3M PRN Opioid 12/04/23 08/30/24 Unknown History Reversal potassium chloride 20 mEq 20 meq PO DAILY 12/04/23 08/30/24 08/26/24 12:45 History tablet,extended release pregabalin 75 mg capsule 75 mg PO BID 12/04/23 08/30/24 08/30/24 08:55 History ropinirole 0.25 mg tablet 0.25 mg PO HS 12/04/23 08/30/24 08/29/24 21:10 History sacubitril 24 mg-valsartan 26 mg 1 tablet PO BID 12/04/23 08/30/24 08/30/24 08:55 History tablet (Entresto) Anusol-HC 25 mg RECTAL DAILY PRN Hemorrhoids 08/30/24 08/30/24 08/30/24 09:20 History acetaminophen 325 mg tablet 650 mg PO Q6H Fever Or Pain 08/30/24 08/30/24 08/30/24 09:30 History alendronate 70 mg tablet 70 mg PO WEEKLY 08/30/24 08/30/24 Unknown History artifi.tears(hypromellose)(PF) 0.3 2 drp EACH EYE TID PRN Dry Eye(S) 08/30/24 08/30/24 Unknown History % eye drops bisacodyl 5 mg tablet,delayed 10 mg PO DAILY PRN Constipation 08/30/24 08/30/24 Unknown History release buprenorphine 10 mcg/hour weekly 1 patch transdermal Q7D 08/30/24 08/30/24 08/25/24 09:20 History transdermal patch calcium carbonate 1,000 mg PO TID 08/30/24 08/30/24 08/29/24 08:45 History empagliflozin 10 mg tablet 10 mg PO DAILY 08/30/24 08/30/24 08/30/24 08:55 History furosemide 40 mg tablet 40 mg PO DAILY 08/30/24 08/30/24 08/30/24 08:55 History hydrocortisone 2.5 % topical cream 1 applic RECTAL QID PRN Hemorrhoids 08/30/24 08/30/24 Unknown History with perineal applicator metoprolol tartrate 25 mg tablet 12.5 mg PO BID 08/30/24 08/30/24 08/30/24 08:55 History midodrine 10 mg tablet 10 mg PO TID 08/30/24 08/30/24 08/30/24 07:50 History oxycodone 5 mg tablet 10 mg PO Q4H PRN Pain 08/30/24 08/30/24 08/30/24 07:15 History pantoprazole 40 mg tablet,delayed 40 mg PO BID 08/30/24 08/30/24 08/30/24 08:55 History release sodium chloride 0.65 % nasal spray 2 spray intranasal Q2H PRN Dry 08/30/24 08/30/24 08/28/24 10:45 History aerosol (Saline Nasal) Nasal Passages Allergies Allergy/AdvReac Type Severity Reaction Status Date / Time acetaminophen Allergy Vomiting Verified 09/01/24 08:56 baclofen Allergy Nausea Verified 09/01/24 08:56 nitrofurantoin Allergy Nausea and Verified 09/01/24 08:56 Vomiting prochlorperazine Allergy Unknown Verified 09/01/24 08:56 propoxyphene Allergy Vomiting Verified 09/01/24 08:56 Sulfa (Sulfonamide Allergy Other Verified 09/01/24 08:56 Antibiotics) sulfanilamide Allergy Unknown Verified 09/01/24 08:56 sumatriptan Allergy Diarrhea Verified 09/01/24 08:56 tizanidine Allergy Hallucinati Verified 09/01/24 08:56 ng tramadol Allergy Unknown Verified 09/01/24 08:56 trazodone Allergy Other Verified 09/01/24 08:56 amitriptyline AdvReac Nightmare Verified 09/01/24 08:56 Review of Systems Review of Systems: All systems reviewed & are unremarkable except as noted in HPI and below Constitutional: Constitutional: Reports as per HPI, Reports no additional constitutional complaints and Reports weakness Eyes: Eyes: Reports as per HPI ENT: Reports system reviewed and no additional complaints, except as documented Cardiovascular: Cardiovascular: Reports as per HPI and Reports no additional cardiovascular complaints Respiratory: Respiratory: Reports as per HPI, Reports no additional respiratory complaints, Reports chest congestion and Reports dyspnea Gastrointestinal: Gastrointestinal: Reports as per HPI and Reports no additional gastrointestinal complaints Genitourinary: Genitourinary: Reports no additional female genitourinary complaints and Reports as per HPI Musculoskeletal: Musculoskeletal: Reports no additional musculoskeletal complaints and Reports as per HPI Integumentary/Breasts: Skin/Breast: Reports system reviewed and no additional complaints, except as docu and Reports as per HPI Neurologic: Reports system reviewed and no additional complaints, except as documented and Reports as per HPI Psychiatric: Psychiatric: Reports no additional psychiatric complaints and Reports as per HPI Endocrine: Endocrine: Reports no additional endocrine complaints and Reports as per HPI Hematologic/Lymphatic: Hematologic/Lymphatic: Reports no additional hematologic/lymphatic complaints and Reports as per HPI Allergic/Immunologic: Allergic/Immunologic: Reports no additional allergic/immunologic complaints and Reports as per HPI [facility] Past Medical History Medical History Chronic hypoxemic respiratory failure Atrial fibrillation Diabetes type 2, uncontrolled Pneumonia Major depressive disorder, recurrent, moderate Muscle spasm Anxiety Depression Chronic back pain DDD (degenerative disc disease) Arthritis Peripheral neuropathy UTI (urinary tract infection) Ovarian cyst HTN (hypertension) Hyperlipidemia Fibromyalgia Migraine Thyroid ca Diabetes mellitus Bronchitis Type 2 diabetes mellitus without complications Cervical spondylosis with myelopathy and radiculopathy Chronic pain disorder Adult hypothyroidism Sleep apnea in adult Cervical vertebral fusion C5-6 Arthritis CAD (coronary artery disease) Migraine BI (obstructive sleep apnea) RLS (restless legs syndrome) IBS (irritable bowel syndrome) Depression Anxiety Osteoporosis Liver cancer no treatment, follows at slu Chronic pain Chronic respiratory failure on 3 l nc ICD (implantable cardioverter-defibrillator) battery depletion Atrial fib/flutter, transient Cardiomyopathy CHF (congestive heart failure) Diabetes GERD (gastroesophageal reflux disease) Hypothyroidism Hyperlipidemia Hypertension Surgical History Surgical History History of spinal fusion History of hysterectomy S/P cervical spinal fusion H/O thyroidectomy History of liver biopsy H/O partial thyroidectomy H/O kyphoplasty 05/2023, 07/2023, 11/2023 H/O: hysterectomy History of hip surgery History of cholecystectomy History of carpal tunnel release H/O breast biopsy Previous back surgery Family History Family History Grandparent Diabetes mellitus, Onset Age: 200 Family history of lupus erythematosus, Onset Age: 200 Mother Family history of malignant neoplasm of breast in first degree relative Hypertension Cerebrovascular accident Father Family history of coronary artery disease, Onset Age: 40 Hypertension Chronic obstructive pulmonary disease Other Family history of malignant neoplasm of male breast Social History Social History Social History: Smoking packs per day: 3 Smoking cigarettes per day: 60.0 Years smoked: 7 Smoking pack-years: 21.00 Smoking status: Former smoker Tobacco type: cigarettes Second hand tobacco smoke exposure: No Smoking end date: 10/13/86 Alcohol intake: never Substance use: never Substance use type: does not use Do You Feel Safe in your Home?: Yes Lack of Transportation: No Lack of Food: Never True Current Housing: I Have Housing Concerned About Future Housing: No Difficulty Paying Gas/Electric Bills: No Difficulty Paying for Meds: No Currently Unemployed: No Education: Never Attended/Kindergarten Only Difficulty w/ Childcare or Family Care: No Living arrangements: with family Occupation/Education: retired Additional occupation/education comments: Disability Gender identity (if verbalized by the patient): Female Sexual Orientation (if Verbalized by the Patient): Straight or Heterosexual Spiritual care concerns: No Exam Narrative: blood pressure is stable. Temperature of 36.6? oxygen saturation of 100% on 3 L of O2. Const: General: no acute distress Nutritional Appearance: obese Orientation/consciousness: patient oriented x3 Limitations: no limitations HENMT: Head: normal to inspection Ears: external ears normal Face/Nose/Sinus: Normal external nose present Face and sinus: normal facial exam Mouth: Yes Normal oral and palatal mucosa present Teeth and gingiva: dentition normal Throat: posterior oropharynx normal Eyes: Conjunctivae: conjunctivae normal Pupils: Equal, round and reactive pupils present EOM: EOMs intact bilaterally Direct Ophthalmoscopy: no photophobia Neck: Neck: normal visual inspection and no lymphadenopathy Chest: Chest palpation & inspection: normal inspection of the chest Resp: Effort & Inspection: normal respiratory effort Auscultation: rales Other: Bibasilar rales 150 way of the chest Cardio: Rate: regular rate Rhythm: regular rhythm GI: GI Palp: Yes Soft to palpation Auscultation: normal bowel sounds Other: no tenderness/ rigidity /rebound : General: Yes no CVA tenderness Back/Spine/Pelvis: Back: no CVA tenderness Skin: General skin exam: normal color Rashes: no rashes Wounds: no wounds Neuro: General: patient oriented x3, moves all extremities, no meningeal signs, no focal motor deficits and CN's II-XI intact bilaterally Cranial nerves: Yes Nystagmus not present Speech: normal speech Extrem: General: normal to inspection and edema Psych: Mental Status: mental status grossly normal Affect: normal affect Attitude: cooperative Course Course Emergency Course: Shortness of breath secondary to COPD/CHF exacerbation-- chest x-ray did not show any infiltrates evidence of CHF. ProBNP was noted to be 2470. troponin of 133. Will repeat. Microcytic hypochromic anemia with an H&H of 7.5. The patient had a negative colonoscopy. elevated lactate of 2.5. But the patient is not a candidate for fluid resuscitation in view of the CHF. Hyperthyroidism possibly iatrogenic with TSH of 0.05. While waiting in the ED the patient had some nose bleeds. INR is noted to be 3. the bleeding stops spontaneously. Will prescribe phenylephrine nasal spray Vital Signs Vital signs: Vital Signs Pulse Oximetry 97 10/20/24 12:45 Oxygen Delivery Nasal Cannula 10/20/24 12:45 Oxygen Flow Rate 3 10/20/24 12:45 Temperature 36.7 C 10/20/24 15:46 Pulse Rate 112 H 10/20/24 16:33 Respiratory Rate 18 10/20/24 16:33 Blood Pressure 109/61 10/20/24 16:33 Pulse Oximetry 96 10/20/24 16:33 Oxygen Delivery Nasal Cannula 10/20/24 14:51 Oxygen Flow Rate 3 10/20/24 14:51 MDM - SOB/Dyspnea MDM Narrative Medical decision making narrative: Shortness of breath it secondary to COPD/ CHF exacerbation microcytic hypochromic anemia Lab Data 10/20/24 13:19 10/20/24 13:19 Labs: Lab Results 10/20/24 10/20/24 10/20/24 Range/Units 13:19 13:33 16:52 WBC 12.1 H (4.8-10.8) K/mm3 RBC 4.34 (4.20-5.40) M/mm3 Hgb 7.5 L (12.0-15.0) g/dL Hct 31.1 L (35.0-49.0) % MCV 71.7 L (78.0-102.0) fL MCH 17.3 L (27.0-31.0) pg MCHC 24.1 L (32-36) g/dL RDW 20.9 H (11.6-14.4) % Plt Count 578 H (150-420) K/mm3 MPV 9.2 (9.2-11.8) fl Immature Gran % (Auto) 1.0 H (0.0-0.0) % Neut % (Auto) 71.3 H (50.0-70.0) % Lymph % (Auto) 18.6 (18.0-42.0) % Moore % (Auto) 8.4 (2.0-11.0) % Eos % (Auto) 0.5 L (1.0-6.0) % Baso % (Auto) 0.2 (0.0-1.0) % Lymph # (Auto) 2.25 (1.10-4.50) K/mm3 Moore # (Auto) 1.02 H (0.10-0.90) K/mm3 Eos # (Auto) 0.06 (0.02-0.50) K/mm3 Baso # (Auto) 0.03 (0.00-0.10) K/mm3 Abs Immat Gran (auto) 0.12 H (0.00-0.00) K/mm3 Absolute Neuts (auto) 8.62 H (1.70-7.20) K/mm3 Absolute Nucleated RBC 0.32 H (0.00-0.00) K/mm3 Nucleated RBC % 2.6 H (0-0.0) % % Immature Plt Fraction 2.3 (1.0-7.0) % PT 29.5 H D (9.50-12.1) Seconds INR 3.0 Sodium 144 (136-145) mmol/L Potassium 3.9 (3.5-5.1) mmol/L Chloride 101 (98-108) mmol/L Carbon Dioxide 33 H (21-32) mmol/L Anion Gap 10 (4-12) mmol/L BUN 22 H (7-18) mg/dL Creatinine 0.72 (0.55-1.02) mg/dL Estim Creat Clear Calc 59 ml/min Estimated GFR > 60 (59 - ) Glucose 148 H (70-99) mg/dL Calculated Osmolality 304 H (285-295) mOsm/kg Lactic Acid 2.5 H 2.4 H (0.4-2.0) mmol/L Calcium 8.8 (8.5-10.1) mg/dL Magnesium 2.1 (1.8-2.4) mg/dL Total Bilirubin 0.6 (0.00-1.00) mg/dL AST 10 L (15-37) U/L ALT 31 (14-59) U/L Alkaline Phosphatase 86 (46-116) U/L Troponin I 133.1 H* 129.1 H* (0.00-60.4) ng/L NT-Pro-B Natriuret Pep 2470 H (0-125) pg/mL Total Protein 6.7 (6.4-8.2) g/dL Albumin 4.0 (3.4-5.0) g/dL TSH 0.05 L (0.36-3.74) uIU/mL Urine Color Light yellow (Yellow) Urine Appearance Clear (Clear) Urine pH 6.0 (5.0-8.0) Ur Specific [place] 1.010 (1.010-1.020) Urine Protein Negative (Negative) Urine Glucose (UA) 3+ H (Negative) Urine Ketones Negative (Negative) Ur Blood (Man) Negative (Negative) Urine Nitrate Negative (Negative) Urine Bilirubin Negative (Negative) Urine Urobilinogen 0.2 (0.2-1.0) mg/dL Leukocyte Esterase Rfl Negative (Negative) ADELA/UL Influenza A (RT-PCR) Negative (Negative) Influenza B (RT-PCR) Negative (Negative) RSV (RT-PCR) Negative (Negative) SARS-CoV-2 RNA (RT-PCR) Negative (Negative) ECG Data EKG #1: ECG completion date: 10/20/24 ECG completion time: 12:44 Interpretation: normal sinus rhythm. Normal axis. LVH. No ST elevation. Discharge Plan Discharge Clinical Impression: Hypochromic microcytic anemia, Epistaxis CHF (congestive heart failure) Qualifiers: Heart failure type: systolic Heart failure chronicity: chronic Qualified Code(s): I50.22 - Chronic systolic (congestive) heart failure Chronic respiratory failure Qualifiers: Respiratory failure complication: hypoxia Qualified Code(s): J96.11 - Chronic respiratory failure with hypoxia Patient Disposition: Home, Self-Care Condition: Stable Instructions: Antibiotic Form, Heart Failure (ED), Anemia (ED) Additional Instructions: advised the patient to follow up with delivery consultant. Advised the patient to use phenylephrine nasal for epistaxis. Advised the patient to discuss with the primary care physician any regarding the dose of thyroxine and Coumadin. Patient Language: Egyptian Prescriptions: [place]-Synephrine (phenylephrine) 1 % spray,non-aerosol 1 spray intranasal Q6H PRN (Reason: nasal congestion) 3 Days Qty: 15 0RF No Action oxymetazoline [Nasal Decongestant (oxymetazl)] 0.05 % [place],Non-Aerosol 1 spray intranasal Q12HR PRN (Reason: nose bleed) Qty: 15 0RF Rx Instructions: use in case of nose bleeding and hold pressure for 20 minutes acetaminophen 325 mg Tablet 650 mg PO Q6H buprenorphine 10 mcg/hour Patch Weekly 1 patch TRANSDERMAL Q7D calcium carbonate 500 mg calcium (1,250 mg) Tablet,Chewable 1,000 mg PO TID empagliflozin 10 mg Tablet 10 mg PO DAILY furosemide 40 mg Tablet 40 mg PO DAILY hydrocortisone 2.5 % Cream With Perineal Applicator 1 applic RECTAL QID PRN (Reason: Hemorrhoids) metoprolol tartrate 25 mg Tablet 12.5 mg PO BID midodrine 10 mg Tablet 10 mg PO TID Rx Instructions: do not give last dose of day after 6PM or within 4 hrs of bedtime oxycodone 5 mg Tablet 10 mg PO Q4H PRN (Reason: Pain) pantoprazole 40 mg Tablet,Delayed Release (Dr/Ec) 40 mg PO BID alendronate 70 mg Tablet 70 mg PO WEEKLY Rx Instructions: Patient takes on artifi.tears(hypromellose)(PF) 0.3 % Drops 2 drp EACH EYE TID PRN (Reason: Dry Eye(S)) bisacodyl 5 mg Tablet,Delayed Release (Dr/Ec) 10 mg PO DAILY PRN (Reason: Constipation) Rx Instructions: give if tolerating P.O. meds Anusol-HC 25 mg 25 mg RECTAL DAILY PRN (Reason: Hemorrhoids) Rx Instructions: Give for internal hemorrhoids Saline Nasal 0.65 % Aerosol,[place] 2 spray INTRANASAL Q2H PRN (Reason: Dry Nasal Passages) insulin glargine [Lantus U-100 Insulin] 100 unit/mL Solution 35 unit subcut QAM Qty: 10 0RF metformin 500 mg tablet 500 mg PO BID Qty: 30 0RF warfarin 2 mg Tablet 2 mg PO DAILY Qty: 30 0RF Rx Instructions: Take at 1700 five days a week Friday thru Friday. warfarin 1 mg Tablet 1.5 mg PO WEEKLY Qty: 15 0RF Rx Instructions: Take on Sundays insulin glargine-yfgn [Semglee(insulin glargine-yfgn)] 100 unit/mL solution 35 unit subcut QAM Qty: 10 0RF atorvastatin 20 mg Tablet 20 mg PO DAILY aspirin 81 mg Tablet,Delayed Release (Dr/Ec) 81 mg PO DAILY ropinirole 0.25 mg Tablet 0.25 mg PO HS bisacodyl 10 mg Suppository 10 mg RECTAL DAILY PRN (Reason: Constipation) Rx Instructions: give if unable to tolerate P.O. meds levothyroxine 125 mcg Tablet 125 mcg PO DAILY insulin lispro 100 unit/mL Solution 5 unit SUBCUT TIDWMEAL ergocalciferol (vitamin D2) 25,000 unit Capsule 2 unit PO WEEKLY Rx Instructions: Take on Fridays cyclobenzaprine 5 mg Tablet 10 mg PO TID PRN (Reason: Muscle Spasms) duloxetine 60 mg Capsule,Delayed Release(Dr/Ec) 60 mg PO DAILY pregabalin 75 mg Capsule 75 mg PO BID potassium chloride 20 mEq Tablet Extended Release 20 meq PO DAILY Entresto 24-26 mg Tablet 1 tablet PO BID naloxone 4 mg/actuation [place],Non-Aerosol 1 spray INTRANASAL Q3M PRN (Reason: Opioid Reversal) Rx Instructions: spray 1 dose into ONE nostril; alternate nostrils w each dose until help arrives (DME) Dexcom G7 Sensor Rx Instructions: Change every 10 days ondansetron 4 mg Tablet,Disintegrating 4 mg PO Q6H PRN (Reason: Nausea And Vomiting) Qty: 0 0RF Follow-up/Referrals: Lis,MD Juni [Primary Care Provider] - Time of Disposition: 17:54
[2024-10-20 13:26] LABS: Basophils Absolute Auto 0.03 K/mm3 (0.00-0.10); Basophils Percent Auto 0.2 % (0.0-1.0); Eosinophils Absolute Auto 0.06 K/mm3 (0.02-0.50); Eosinophils Percent Auto 0.5 % (1.0-6.0); Hematocrit 31.1 % (35.0-49.0); Hemoglobin 7.5 g/dL (12.0-15.0); Immature Granulocyte Absolute 0.12 K/mm3 (0.00-0.00); Immature Platelet Fraction Pct 2.3 % (1.0-7.0); Lymphocytes Absolute Auto 2.25 K/mm3 (1.10-4.50); Lymphocytes Percent Auto 18.6 % (18.0-42.0); Mean Corpuscular HGB Conc 24.1 g/dL (32-36); Mean Corpuscular Hemoglobin 17.3 pg (27.0-31.0); Mean Corpuscular Volume 71.7 fL (78.0-102.0); Mean Platelet Volume 9.2 fl (9.2-11.8); Monocytes Absolute Auto 1.02 K/mm3 (0.10-0.90); Monocytes Percent Auto 8.4 % (2.0-11.0); Neutrophils Absolute Auto 8.62 K/mm3 (1.70-7.20); Neutrophils Percent Auto 71.3 % (50.0-70.0); Nucleated Red Blood Cells Absolute Auto 0.32 K/mm3 (0.00-0.00); Nucleated Red Blood Cells Perc 2.6 % (0-0.0); Platelet Count Result 578 K/mm3 (150-420); Red Blood Count 4.34 M/mm3 (4.20-5.40); Red Cell Distribution Width 20.9 % (11.6-14.4); White Blood Count 12.1 K/mm3 (4.8-10.8)
[2024-10-20 13:37] LABS: Prothrombin Time 29.5 Seconds (9.50-12.1)
--- NOTE | 2024-10-20 13:40 | ECG_ITS ---
Test Date: 2024-10-20 12:44:21 Measurements Intervals Williams Rate: 93 P: 47 MO: 125 QRS: 9 QRSD: 85 T: 69 QT: 391 QTc: 487 Interpretive Statements SINUS RHYTHM WITH FREQUENT SUPRAVENTRICULAR PREMATURE COMPLEXES MODERATE VOLTAGE CRITERIA FOR LVH, CONSIDER NORMAL VARIANT [MEETS CRITERIA IN ONE OF: R(aVL), S(V1), R(V5), R(V5/V6)+S(V1)] Compared to ECG 08/22/2024 12:45:08 NO SIGNIFICANT CHANGES Electronically Signed On 10-20-2024 15:48:25 SEAPORT PLANNING MANAGER by Uvaldo Saucedo M.D.
[2024-10-20 13:44] LABS: Add Urine Microscopic? NO; Appearance Urine Clear (Clear); Bilirubin Urine Negative (Negative); Blood Urine Negative (Negative); Color Urine Light Yellow (Yellow); Glucose Urine UA 3+ (Negative); Ketones Urine Negative (Negative); Leukocyte Esterase Ur Negative LEU/UL (Negative); Nitrate Urine Negative (Negative); Protein Urine Negative (Negative); Urobilinogen Urine 0.2 mg/dL (0.2-1.0)
[2024-10-20 13:47] LABS: Lactic Acid Reflex 2.5 mmol/L (0.4-2.0)
[2024-10-20 13:51] LABS: Alanine Aminotransferase 31 U/L (14-59); Alkaline Phosphatase 86 U/L (46-116); Anion Gap 10 mmol/L (4-12); Aspartate Amino Transferase 10 U/L (15-37); Bilirubin,Total 0.6 mg/dL (0.00-1.00); Blood Urea Nitrogen 22 mg/dL (7-18); Calcium 8.8 mg/dL (8.5-10.1); Carbon Dioxide 33 mmol/L (21-32); Chloride 101 mmol/L (98-108); Estimated CRCL calculation 59 ml/min; Estimated Glomerular Filt Rate > 60; Glucose 148 mg/dL (70-99); Magnesium 2.1 mg/dL (1.8-2.4); NT Pro B Type Natriuretic Pept 2470 pg/mL (0-125); Osmolality Calculated 304 mOsm/kg (285-295); Potassium 3.9 mmol/L (3.5-5.1); Sodium 144 mmol/L (136-145); Total Protein 6.7 g/dL (6.4-8.2)
[2024-10-20 13:57] LABS: Thyroid Stimulating Hormone 0.05 uIU/mL (0.36-3.74); Troponin I 133.1 ng/L (0.00-60.4)
[2024-10-20 14:01] LABS: SARS-CoV-2 RNA PCR Negative (Negative)
[2024-10-20 14:02] LABS: Influenza A QL RT-PCR Negative (Negative); Influenza B QL RT-PCR Negative (Negative); RSV RNA, RT-PCR Negative (Negative)
[2024-10-20 16:22] LABS: Reflex Lactic Acid Yes or No Add Lactic
[2024-10-20] MEDS: CYCLOBENZAPRINE HCL 10 MG TABLET PO (16:28)
[2024-10-20] MEDS: oxyCODONE HCL (*CRX) 5 MG TAB IR 10 MG PO (16:28)
[2024-10-20 17:25] LABS: Lactic Acid 2.4 mmol/L (0.4-2.0); Troponin I 129.1 ng/L (0.00-60.4)
== END 2024-10-20 18:10 | disposition home or self-care (01) ==
PROVIDERS: Emergency Provider Internal Medicine Critical Care Medicine; PCP Internal Medicine
DX: I11.0 Hypertensive heart disease with heart failure (principal); I50.22 Chronic systolic (congestive) heart failure; J96.11 Chronic respiratory failure with hypoxia; D50.9 Iron deficiency anemia, unspecified; R04.0 Epistaxis; E11.9 Type 2 diabetes mellitus without complications; E03.9 Hypothyroidism, unspecified; E78.5 Hyperlipidemia, unspecified; I48.91 Unspecified atrial fibrillation; J44.9 Chronic obstructive pulmonary disease, unspecified; G47.33 Obstructive sleep apnea (adult) (pediatric); Z20.822 Contact with and (suspected) exposure to COVID-19; Z99.81 Dependence on supplemental oxygen; Z79.01 Long term (current) use of anticoagulants; Z95.810 Presence of automatic (implantable) cardiac defibrillator; Z79.82 Long term (current) use of aspirin; Z79.4 Long term (current) use of insulin; Z79.84 Long term (current) use of oral hypoglycemic drugs; Z87.891 Personal history of nicotine dependence; Z79.891 Long term (current) use of opiate analgesic
CPT/HCPCS: 36415; 71045; 80053; 81003; 83605; 83735; 83880; 84443; 84484; 85025; 85055; 85610; 87637; 93005; 99284; A9270

== ENCOUNTER 2024-10-22 10:17 | Outpatient (NON) | payer OTHER, MEDICARE, SELFPAY ==
[2024-10-22 11:28] LABS: Anion Gap 8 mmol/L (4-12); Blood Urea Nitrogen 18 mg/dL (7-18); Carbon Dioxide 32 mmol/L (21-32); Chloride 101 mmol/L (98-108); Estimated Glomerular Filt Rate > 60; Glucose 272 mg/dL (70-99); NT Pro B Type Natriuretic Pept 1666 pg/mL (0-125); Osmolality Calculated 303 mOsm/kg (285-295); Potassium 4.9 mmol/L (3.5-5.1); Sodium 141 mmol/L (136-145)
== END 2024-10-22 10:18 | disposition home or self-care (01) ==
PROVIDERS: PCP Internal Medicine; Visit Provider Internal Medicine
DX: I11.0 Hypertensive heart disease with heart failure (principal); I50.23 Acute on chronic systolic (congestive) heart failure; I25.10 Atherosclerotic heart disease of native coronary artery without angina pectoris; E11.65 Type 2 diabetes mellitus with hyperglycemia
CPT/HCPCS: 36415; 80048; 83880

== ENCOUNTER 2024-10-27 16:02 | Outpatient (NON) | payer OTHER, MEDICARE, SELFPAY ==
[2024-10-27 16:28] LABS: INR 3.1; Prothrombin Time 30.9 Seconds (9.50-12.1)
== END 2024-10-27 16:03 | disposition home or self-care (01) ==
LOC: CHSHH 16:06
PROVIDERS: PCP Internal Medicine; Visit Provider Internal Medicine
DX: I11.0 Hypertensive heart disease with heart failure (principal); I50.23 Acute on chronic systolic (congestive) heart failure; I25.10 Atherosclerotic heart disease of native coronary artery without angina pectoris; E11.65 Type 2 diabetes mellitus with hyperglycemia
CPT/HCPCS: 36415; 85610

== ENCOUNTER 2024-11-04 10:23 | Outpatient (NON) | payer OTHER, MEDICARE, SELFPAY ==
[2024-11-04 11:00] LABS: INR 1.5; Prothrombin Time 15.9 Seconds (9.50-12.1)
== END 2024-11-04 10:24 | disposition home or self-care (01) ==
LOC: CHSHH 10:27
PROVIDERS: PCP Internal Medicine; Visit Provider Internal Medicine
DX: I11.0 Hypertensive heart disease with heart failure (principal); I50.23 Acute on chronic systolic (congestive) heart failure; I25.10 Atherosclerotic heart disease of native coronary artery without angina pectoris; E11.65 Type 2 diabetes mellitus with hyperglycemia
CPT/HCPCS: 36415; 85610

== ENCOUNTER 2024-11-30 18:08 | Inpatient (IN) | payer OTHER, MEDICARE, SELFPAY ==
--- NOTE | ~2024-11-30 | CT_ITS ---
EXAMINATION: CTA chest PE protocol DATE: 12/04/2024 12:22 INDICATION: Midsternal chest pain. TECHNIQUE: Computed tomography (CT) pulmonary angiogram of the chest was performed with 100 mL Omnipa que-350 intravenous contrast. Additional 3D reconstructions utilizing coronal maximum intensity proje ction (MIP) were performed. Automated exposure control and iterative reconstruction technique were em ployed. The dose-length product was 536.87 mGy-cm. COMPARISON: 09/26/2022 FINDINGS: Decreased lung volumes are prominent on the right with elevation the right hemidiaphragm. There are l inear bands of discoid atelectasis/scarring at the lingula and bilateral lower lobes. Additional depe ndent atelectasis right upper lobe along the major fissure. Additional dependent predominant groundgl ass opacities throughout both lungs without significant septal line thickening and would favor additi onal atelectasis over pulmonary edema or pneumonia. No pleural effusion. Cardiomegaly. No pericardial effusion. Single lead cardiac pacemaker/AICD with lead tip at the apex of the right ventricle. Thora cic aorta is normal in caliber with no dissection. No pathologically enlarged thoracic lymphadenopath y. There is a right pectoral power supply with lead extending cephalad along the right neck likely fo r carotid body stimulation. Multiple irregular deposits of high attenuation material within the posterior aspect of segment 7 of the liver with focal bulging of the overlying liver capsule which would be consistent with chemoembol ization for reported liver cancer.Partially visualized thoracolumbar posterior spinal fusion with dwayne ateral vertical osorio and pedicle screw fixation beginning at T10 and extending through at least L1 and beyond the inferior margin of the field of imaging. There are multiple compression fractures through out the mid thoracic to upper lumbar spine with change of prior vertebroplasty at T3-T9. These along with a compression fracture at T3 without vertebroplasty are all new since the prior study. C5-C7 ant erior spinal fusion with anterior plate and screw fixation and interbody fusion devices at both level s. IMPRESSION: 1. No pulmonary embolism. 2. Small lung volumes particularly on the right where there is elevation right hemidiaphragm with sca ttered atelectasis with dependent and lower lung predominance. 2. Moderate cardiomegaly. 4. Multiple irregular deposits of high attenuation material within a region of masslike bulging of th e capsule posteriorly in segment 7 of the liver consistent with chemoembolization for reported bladde r cancer. Reviewed, dictated and finalized at location A. ONAL SERVICE OFFICER IMPRESSION: 1. No pulmonary embolism. 2. Small lung volumes particularly on the right where there is elevation right hemidiaphragm with scattered atelectasis with dependent and lower lung predomin ance. 2. Moderate cardiomegaly. 4. Multiple irregular deposits of high attenuation material within a region of masslike bulging of the capsule posteriorly in segment 7 of the liver consisten t with chemoembolization for reported bladder cancer.
--- NOTE | ~2024-11-30 | XR_ITS ---
EXAMINATION: XR chest 1V portable DATE: 12/04/2024 08:55 INDICATION: Mid chest pain TECHNIQUE: frontal view of the chest was obtained. COMPARISON: Chest radiograph dated 11/07/2024 FINDINGS: Decreased lung volumes. Relatively linear and bandlike opacities at the bilateral lung bases with jessica earance favoring atelectasis over pneumonia. No pulmonary edema, pleural effusion or pneumothorax. Ca rdiomegaly. Single lead cardiac pacemaker/AICD with lead tip projecting near the apex of the right ventricle. Mul tiple vertebral plasties in the mid thoracic spine. Bilateral vertical osorio and pedicle screw fixation from multilevel posterior spinal fusion of the lower thoracic spine which extends into the cephalad lumbar spine and beyond the inferior margin of the jvzma-fo-cesu. There is also and instrumented lowe r cervical anterior spinal fusion with interbody fusion device and anterior plate-screw fixation. Lat eral plate and screw fixation at the proximal left humerus. There is been interval placement of a lik maria m right carotid body stimulator with lead tip coiled over the right neck and with partial split pro ject over the right costophrenic angle. IMPRESSION: 1. Small lung volumes with bibasilar opacities with appearance favoring atelectasis over pneumonia. 2. Cardiomegaly. Reviewed, dictated and finalized at location A. INFRASTRUCTURE ARCHITECT IMPRESSION: 1. Small lung volumes with bibasilar opacities with appearance favoring atelect asis over pneumonia. 2. Cardiomegaly.
--- OUTSIDE RECORDS SUMMARY | 2024-11-30 18:12 | XMS_ITS | Encounter Summary ---
Author Organization [facility] Address [address] [place] [address] Phone Care Team Providers Care Packing Machine Can Feeder Name Role Phone Juni Hays MD Primary Care Provider [phone] Shivam Benedict MD Unavailable Radha Crews APRN, ROLLER OPERATOR Unavailable + [phone] Sacha Penn MD Unavailable [phone] Reason for Visit * Reason Comments Medication Refill Encounter Details Date Type Department Care Team (Late st Contact Info) Description 12/22/2022 Refill [facility] - Neurology [facility] [address] [place] [address] Sacha Penn MD [address] [place] [address] Medication Refill Social History Tobacco Use Types Packs/Day Years Used Date Smoking Tobacco: Former Cigarettes Q uit: 10/13/1987 Smokeless Tobacco: Never Alcohol Use Standard Drinks/Week Comments No 0 (1 standard drink = 0.6 oz pur e alcohol) Sexually Active Control Partners Comments Yes Comments No Sex and Gender Information Value Date Recorded Sex Assigned at Not on file Legal Sex Female 11:41 PM CDT Gender Identity Not on file Sexual Orientation Not on file COVID-19 Exposure Response Date Recorded In the last 10 days, have yo u been in contact with someone who was confirmed or suspected to have Coronavirus/COVID-19? No / Unsure 11/22/2022 3:36 PM INDEPENDENT CONTRACTOR documented as of this encounter Miscellaneous Notes * Telephone Encounter - India Costa RN - 12/23/2022 8:15 AM CDT Medication failed the protocol, provider to review and approve the medication order if appropriate. Requested Prescriptions Pending Prescriptions Disp Refills Botox 200 units Recon Soln [Pharmacy Med Name: BOTOX 200 UNIT SDV PWD] 1 Each Sig: INJECT 155 UNITS INTO THE MUSCLES OF HEAD AND FACE EVERY 90 DAYS FOR MIGRAINE PROPHYLAXIS (DISCARD UNUSED PORTION) Not Delegated - Off Protocol Failed - 12/22/2022 6:30 AM Failed - This refill cannot be delegated Failed - Active on medication list Passed - Visit with relevant provider in past 12 months or upcoming 90 days Recent Visits Date Type Provider Dept 11/22/22 Procedure Visit Sacha Penn MD [facility] Neurology [facility] [address] 08/07/22 Procedure Visit Sacha Penn MD [facility] Neurology [facility] [address] 05/01/22 Procedure Visit Sacha Penn MD [facility] Neurology [facility] [address] 03/14/22 Office Visit Radha Crews APRN, CNS [facility] Neurology [facility] [address] 02/08/22 Procedure Visit Sacha Penn MD [facility] Neurology [facility] [address] 01/04/22 Office Visit Radha Crews APRN, CNS [facility] Neurology [facility] Showing recent visits within past 365 days and meeting all other requirements Future Appointments Date Type Provider Dept 02/14/23 Appointment Sacha Penn MD [facility] Neurology [facility] [address] Showing future appointments within next 90 days and meeting all other requirements documented in this encounter Plan of Treatment Not on file documented as of this encounter Visit Diagnoses Not on filedocumented in this encounter Care Teams Packing Machine Can Feeder Relationship Specialty Start Date End Date Jnui Hays MD PCP - General Internal Medicine 10/17/20 Shivam Benedict MD [address] [place] [address] Consulting Physician Pulmonary Disease 12/27/21 Radha Crews, REGISTERED ACCOUNT ADMINISTRATOR, ROLLER OPERATOR [address] [place] [address] Nurse Practitioner Advanced Practice Nurse 01/04/22 Sacha Penn MD [address] [place] [address] Consulting Physician Neurology 07/25/23 documented as of this encounter
--- OUTSIDE RECORDS SUMMARY | 2024-11-30 18:12 | XMS_ITS | Encounter Summary ---
Author Organization [facility] Address [address] [place] [address] Phone Care Team Providers Care Truck Safety Inspector Name Role Phone Juni Hays MD Primary Care Provider [phone] Shivam Benedict MD Unavailable Radha Crews APRN, [facility] Unavailable +- [phone] Sacha Penn MD Unavailable [phone] Encounter Details Date Type Department Care Team (Late st Contact Info) Description 12/25/2022 Nursing Facility [facility] [address] [place] [address] Varghese Gleason, [facility] [address] [place], [place] [id number] Social History Tobacco Use Types Packs/Day Years [...] on file Sexual Orientation Not on file documented as of this encounter Progress Notes * Varghese Gleason, PAC - 12/25/2022 1:53 PM CDT [facility] PROGRESS NOTE Blossom De León is a 57 y.o. female at [facility] for rehabilitation. Patient was hospitalized at [facility] from 08/16/2022 through 09/02/2022 for unstable burst fracture of the 4th lumbar vertebrae along with lumbar stenosis and neurogenic claudication which was treated with extensive lumbar surgery. Apparently after leaving the hospital she developed COVID-19 which made her weakness worse, did spend some time at [facility] prior to transferring to this facility on 11/05/2022. Subjective: Interval History: I am seeing patient acutely today for routine monthly jail visit. Feels like things are going well overall. Has had diarrhea for last 2 days. This does happen to her occasionally but also says that her roommate had some diarrhea so she thinks she might have a virus. She is not having any abdominal pain, nausea, vomiting or any systemic symptoms otherwise. Using some Imodium which is helping. Clinically she looks well. Was seen by her pain management doctor who added on the Butrans patch recently and she feels like this is helping with her chronic pain. Feels like therapy is going well as of late. She is hopeful that maybe in a few weeks show be able to be discharged. Past Medical History Positives Diagnosis Date ??? Anxiety disorder ??? Arthritis ??? Cervicalgia HAS TITANIUM PLATE IN NECK AT C-6 C-7 ??? Chronic pain syndrome ??? Congestive heart failure (CHF) (HCC) ??? Coronary atherosclerosis ??? Depression ??? Diabetes mellitus (HCC) ??? Fibromyalgia ??? Fibromyalgia ??? Hypertension ??? Lumbago TITATNIUM CAGE AT L-4, L-5, S-1 ??? Migraine headache ??? Thyroid cancer (HCC) ??? Thyroid disorder Family History Problem Relation Age of Onset ??? Breast Cancer Mother ??? Heart Disease Mother ??? Chronic Obstructive Pulmonary Disease Father ??? Heart Disease Father ??? Cancer Father 76 SALIVORY, CAROTID, CLAVICLE ??? Heart Attack Father Social History Socioeconomic History ??? Marital status: Spouse name: Not on file ??? Number of children: Not on file ??? Years of education: Not on file ??? Highest education level: Not on file Occupational History ??? Not on file Tobacco Use ??? Smoking status: Former Types: Cigarettes Quit date: 10/13/1987 Years since quittin.2 ??? Smokeless tobacco: Never Vaping Use ??? Vaping Use: Never used Substance and Sexual Activity ??? Alcohol use: No ??? Drug use: No ??? Sexual activity: Yes Other Topics Concern ??? Not on file Social History Narrative ??? Not on file Past Surgical History: Procedure Laterality Date ??? CHOLECYSTECTOMY, LAPAROSCOPIC 08/08/14 ??? HYSTERECTOMY, TOTAL ABDOMINAL 11/10/07 [place]io ??? CARPAL TUNNEL RELEASE Bilateral ??? CERVICAL FUSION HAS PLATE C6/C7 ??? HUMERUS FRACTURE SURGERY Left 02/28/2020 Procedure: OPEN REDUCTION INTERNAL FIXATION OF LEFT PROXIMAL HUMERUS; Surgeon: Prosper Tolbert MD; Location: [facility]; Service: Orthopaedic ??? LUMBAR FUSION HAS CAGE IN PLACE ??? THYROID SURGERY 10/1986 [place] [employer] Review of Systems: A 14 point comprehensive review of systems was negative except what is documented in interval history above. Objective: Exam: Vital Signs: B/P: 118/78 Pulse: 96 Respirations: 16 Temperature: 97.2 General: Well developed, well nourished, in no distress Skin: Normal appearance, normal turgor, no rashes - well-healing surgical incision site over lower thoracic and all of lumbar spinous processes HEENT: Normocephalic, atraumatic, no flaring Eyes: nonicteric, intact extra occular movement, PERRL Neck: normal, supple, no lymphadenopathy Heart: regular rate and rhythm, S1, S2 normal, no murmur, click, rub or gallop Lungs: clear to ausculation, normal respirations, normal precautions Abdominal: soft, non-tender; bowel sounds normal; no masses, no organomegaly Extremities: no deformities, joint mobility appears intact, no clubbing Neuro: Non-focal, CN intact, sensory and motor intact Psychological: alert and oriented X3, appropriate mood and affect, Intact judgement and memory Lab Results: 11/13/2022: CMP with glucose 194, sodium 146, potassium 3.2 otherwise unremarkable. CBC with hemoglobin 11.9 otherwise unremarkable. 11/26/2022: BMP with glucose 154, sodium 146, calcium 8.2 otherwise within normal limits. Magnesiumwas 1.8. Imaging: None Assessment/Plan: Closed fracture of left inferior pubic ramus Suffered from fall on 12/02/22 - No other imaging or workup done during were urgency room visit which appears to be appropriate as I do not appreciate any other significant injuries on my exam and the fall was felt to be mechanical. She is already on 10 mg oxycodone p.r.n. 12/03: Tylenol added on to regimen which is already an aggressive regimen. Mobic should help as well. 12/25: Butrans added on to regimen by pain management doctor which is helping. Neuropathy 11/12: Should be noted patient is on gabapentin as well as Lyrica. Will need to discuss this with the patient. 12/25: Stable. Gabapentin has been tapered off and discontinued. Neuroendocrine tumor of liver Followed By Oncology Currently observing with periodic imaging Right hand edema and ecchymosis at the MCP joints of pointer middle and ring fingers 11/26: Clinically most consistent with inflammatory arthritis, so started on a short course of ibuprofen and prednisone, only 20 mg prednisone considering her diabetes status. There is no fiery red type cellulitic changes and she is ranging her joint well which is reassuring, and although there is no obvious signs of infection considering her diabetes status I am going to have a low threshold and give her some Keflex as well. Explained to patient that if she develops signs or symptoms of infection that she may need to be transferred to emergency room. Since it is possible that she may be going home later this week I thoroughly explained that if she loses range of motion in her fingers or she has any fevers or if there is any worsening rash or purulence that she should seek immediate care. 12/03/2022: Essentially resolved Chronic systolic congestive heart failure EF of 35% Continue Coreg, furosemide, Entresto and spironolactone Followed by Cardiology Dr. Huffman 12/03: Stable Lumbar fracture with lumbar stenosis and neurogenic claudication Status post surgical repair Followed by neurosurgery Dr. Richardson at [facility] pain medicines Wearing brace at all times Receiving [facility] and physical therapy rehabilitation 11/19: Patient saying pain is not been well controlled as of late. She is on an aggressive pain regimen already 10 mg of oxycodone Q 4 p.r.n.. She says she has been on opioids for a long time due to chronic back pain which is managed by her PCP who she plans on calling. I will be adding on a trial ofCelebrex to see if that helps, discussed with patient and she is agreeable. 11/22: Better GERD Continue Pepcid and Prilosec Well controlled Diabetes mellitus type 2 Current regimen includes Farxiga, Trulicity, Lantus and sliding scale Humalog and metformin Monitor Accu-Cheks and adjust regimen as necessary 11/15/2022: Uncontrolled as of late. Will increase Lantus dose. 11/19: Improved. Continue current regimen. 11/22: Stable 12/03: Well controlled Hypertension Continue antihypertensive regimen Monitor blood pressures 12/25: Well controlled Other chronic medical conditions include restless leg syndrome, migraines, hyperlipidemia, osteoporosis, depression, B12 deficiency, hypothyroidism Stable Continue home regimen Disposition: 11/26 - patient informed me that she had insurance cut. She is discussing with her daughter about appealing or finding placement versus going home. She does live with her daughter but meena does work full-time. If she ends up discharging before I see her next she understands thatshe needs to call her primary care doctor and follow-up in about 1 week from discharge. 12/03: Patient is hopeful to have more therapy and stay in the facility longer now that she has a new injury. VTE Prophylaxis: Activity I discussed advanced care planning with this patient. This note was dictated using M*Modal fluency dictation system and there may be errors in trial lawyer. Despite proof reading the note, there may be mistakes and I apologize for those. By: RUDY Miller, 12/25/2022 1:53 PM CDT documented in this encounter Plan of Treatment Not on file documented as of this encounter Visit Diagnoses Not on filedocumented in this encounter Care Teams Truck Safety Inspector Relationship Specialty Start Date End Date Juni Hays MD PCP - General Internal Medicine 10/17/20 Shivam Benedict MD [address] [place] [address] Consulting Physician Pulmonary Disease 12/27/21 Radha Crews, PHYSICAL THERAPY DIRECTOR, POLICE CHIEF DEPUTY [address] [place] [address] Nurse Practitioner Advanced Practice Nurse 01/04/22 Sacha Penn MD [address] [place] [address] Consulting Physician Neurology 07/25/23 documented as of this encounter
--- OUTSIDE RECORDS SUMMARY | 2024-11-30 18:12 | XMS_ITS | Encounter Summary ---
Author Organization [facility] Address [address] [place] [address] Phone Care Team Providers Care Newspaper Photographer Name Role Phone Juni Hays MD Primary Care Provider [phone] Shivam Benedict MD Unavailable Radha Crews APRN, [facility] Unavailable + [phone] Sacha Penn MD Unavailable [phone] Reason for Visit * Reason Onset Date Comments Medication Refill 12/17/2022 Encounter Details Date Type Department Care Team (Late st Contact Info) Description 12/17/2022 Refill [facility] [address] [place] [address] Varghese Gleason, PAC [address] [place], [place] [address] Medication Refill Social History Tobacco Use Types [...] Coronavirus/COVID-19? No / Unsure 11/22/2022 3:36 PM SYSTEM SUPPORT ADMINISTRATOR documented as of this encounter Plan of Treatment Not on file documented as of this encounter Visit Diagnoses Diagnosis Other chronic pain- Primary Cervicalgia documented in this encounter Care Teams Newspaper Photographer Relationship Specialty Start Date End Date Juni Hays MD PCP - General Internal Medicine 10/17/20 Shivam Benedict MD [address] [place] [address] Consulting Physician Pulmonary Disease 12/27/21 Radha Crews, STATISTICIAN MATHEMATICAL, SOCIAL MEDIA COMMUNITY MANAGER [address] [place] [address] Nurse Practitioner Advanced Practice Nurse 01/04/22 Sacha Penn MD [address] [place] [address] Consulting Physician Neurology 07/25/23 documented as of this encounter
--- OUTSIDE RECORDS SUMMARY | 2024-11-30 18:12 | XMS_ITS | Encounter Summary ---
Author Organization [facility] Address [address] [place] [address] Phone Care Team Providers Care Crate Icer Name Role Phone Juni Hays MD Primary Care Provider [phone] Shivam Benedict MD Unavailable Radha Crews APRN, [facility] Unavailable +- [phone] Sacha Penn MD Unavailable [phone] Encounter Details Date Type Department Care Team (Late st Contact Info) Description 01/31/2023 Nursing Facility [facility] [address] [place] [address] Varghese Gleason, [facility] [address] [place], [place] [id number] Social History Tobacco Use Types Packs/Day Years [...] this encounter Progress Notes * Varghese Gleason, RUDY - 01/31/2023 9:19 AM CDT [facility] ASSISTED DISCHARGE SUMMARY Name: Blossom De León Age: 57 y.o. : 1965 Attending Physician: No att. providers found Admission Date/Time: 11/05/2022 Expected Discharge Date: 01/31/2023 Primary Care Physician: JUNI HAYS MD Discharging Provider: RUDY Miller INSTRUCTIONS FOR PHYSICIANS ON FOLLOW UP AFTER DISCHARGE: Follow-up with PCP in 1-2 weeks. Discharge Instructions: Discharge Condition: improved Disposition: Home Diet: Cardiac Diet and Diabetic Diet Activity: activity as tolerated Discharge Diagnoses: Lumbar fracture with lumbar stenosis and neurogenic claudication, closed fracture of left inferior pubic ramus, neuropathy, neuroendocrine tumor of liver, chronic systolic congestive heart failure, hypertension, GERD, diabetes mellitus type 2, restless leg syndrome, migraines, hyperlipidemia, osteoporosis, depression, B12 deficiency, hypothyroidism Admitting Diagnoses: Lumbar fracture with lumbar stenosis and neurogenic claudication, closed fracture of left inferior pubic ramus, neuropathy, neuroendocrine tumor of liver, chronic systolic congestive heart failure, hypertension, GERD, diabetes mellitus type 2, restless leg syndrome, migraines, hyperlipidemia, osteoporosis, depression, B12 deficiency, hypothyroidism SKILLED CARE COURSE: Blossom De León was admitted to [facility] for acute care rehabilitation. Patient was hospitalized at [facility] from 08/16/2022 through 09/02/2022 for unstable burst fracture of the 4th lumbar vertebrae along with lumbar stenosis and neurogenic claudication which was treated with extensive lumbar surgery. Apparently after leaving the hospital she developed COVID-19 which made her weakness worse, did spend some time at [facility] prior to transferring to this facility on 11/05/2022. While at the rehabilitation facility, the patient received [facility] care and physical therapy rehabilitation. She did well with her initial therapy and after about a month she was actually in the process of discharge planning when she suffered a fall outside of the facility on 12/02/2022 that resulted in a closed fracture of left inferior pubic ramus. This new injury unfortunately caused a setback in her recovery and she stayed in the facility for more therapy. She was having issues with pain control, and she followed up with her pain management doctor who advanced her regimen and she has been doing well since then. The patient has done well with her rehabilitation since then and has regained enough strength and ambulation that it is felt that she can safely be discharged. Today she is sitting comfortably in her chair. Says she feels ???okay?? . She is comfortable with plan for discharge. She will be going home where she lives with her . She does not need any new DME. Home health will be ordered. She is comfortable with this plan and has no acute symptoms or concerns otherwise. Exam Day of Discharge: Vital Signs: B/P: 138/90 Pulse: 54 Respirations: 18 Temperature: 97 General: Well developed, well nourished, in no [...] and affect, Intact judgement and memory Lab / Imaging Review: Lab Results: 11/13/2022: CMP with glucose 194, sodium 146, potassium 3.2 otherwise unremarkable. CBC with hemoglobin 11.9 otherwise unremarkable. 11/26/2022: BMP with glucose 154, sodium 146, calcium 8.2 otherwise within normal limits. Magnesiumwas 1.8. Imaging: None DISCHARGE PLAN: She will be going home later today where she lives with her . Home health for PT/OT ordered.No new DME needs. Understands to continue all current medications as directed and follow up with PCP in 1-2 weeks. I have spent time coordinating care for this [facility]p facility discharge: Greater than 30 minutes spent in coordinating care This note was dictated using M*PlanetTran fluency dictation system and there may be errors in needle bar molder. Despite proof reading the note, there may be mistakes and I apologize for those. Signed: Varghese Gleason, PAC, 01/31/2023, 9:20 AM CDT documented in this encounter Plan of Treatment Not on file documented as of this encounter Visit Diagnoses Not on filedocumented in this encounter Care Teams Crate Icer Relationship Specialty Start Date End Date Juni Hays MD PCP - General Internal Medicine 10/17/20 Shivam Benedict MD [address] [place] [address] Consulting Physician Pulmonary Disease 12/27/21 Radha Crews APRN, TIRE FABRICATOR [address] [place] [address] Nurse Practitioner Advanced Practice Nurse 01/04/22 Sacha Penn MD [address] [place] [address] Consulting Physician Neurology 07/25/23 documented as of this encounter
--- OUTSIDE RECORDS SUMMARY | 2024-11-30 18:12 | XMS_ITS | Encounter Summary ---
Author Organization [facility] Address [address] [place] [address] Phone Care Team Providers Care Long Term Care Social Worker Name Role Phone Juni Hays MD Primary Care Provider [phone] Shivam Benedict MD Unavailable Radha Crews APRN, [facility] Unavailable +- [phone] Sacha Penn MD Unavailable [phone] Encounter Details Date Type Department Care Team (Late st Contact Info) Description 01/06/2023 Nursing Facility [facility] [address] [place] [address] Varghese Gleason, [facility] [address] [place], [place] [id number] Social History Tobacco Use Types Packs/Day Years [...] Progress Notes * Varghese Gleason, PAC - 01/06/2023 4:06 PM CDT [facility] PROGRESS NOTE Blossom De León is a 57 y.o. female at [facility] for rehabilitation. Patient was hospitalized at [facility] from 08/16/2022 through 09/02/2022 for unstable burst fracture of the 4th lumbar vertebrae along with lumbar stenosis and neurogenic claudication which was treated with extensive lumbar surgery. Apparently after leaving the hospital she developed COVID-19 which made her weakness worse, did spend some time at [facility] prior to transferring to this facility on 11/05/2022. Subjective: Interval History: I am seeing patient acutely today with concerns for vaginal discharge. She is currently sitting comfortably in her chair and clinically she look well. Patient reports that she has been having vaginal discharge for the last few days. There was not much of an order so should with that. She does admit to vaginal itching. She denies any urinary symptoms. She denies any abdominal pain or GI symptoms. Admits to previous history of similar symptoms a few times before due to yeast infection. Past Medical History Positives Diagnosis Date ??? [...] PROXIMAL HUMERUS; Surgeon: Prosper Tolbert MD; Location: [facility]; Service: Orthopaedic ??? LUMBAR FUSION HAS CAGE IN PLACE ??? THYROID SURGERY 10/1986 [place] [employer] Review of Systems: A 14 point comprehensive review of systems was negative except what is documented in interval history above. Objective: Exam: Vital Signs: B/P: 120/78 Pulse: 80 Respirations: 18 Temperature: 97.3 General: Well developed, well nourished, in no [...] normal limits. Magnesiumwas 1.8. Imaging: None Assessment/Plan: Marlin vaginitis 01/06/23: 1 time dose of Diflucan and also a 1 week course of 1% clotrimazole vaginal cream ordered. Closed fracture of left inferior pubic ramus [...] repair Followed by neurosurgery Dr. Richardson at [facility] pain medicines Wearing brace at all times Receiving long-term and physical therapy rehabilitation 11/19: Patient saying [...] She does live with her daughter but her daughter does work full-time. If she ends up discharging before I see her next she understands that she needs to call her primary care doctor and follow-up in about 1 week from discharge. 12/03: Patient is hopeful to have more therapy and stay in the facility longer now that she has a new injury. VTE Prophylaxis: Activity I discussed advanced care planning with this patient. This note was dictated using M*Modal fluency dictation system and there may be errors in mental health clinician. Despite proof reading the note, there may be mistakes and I apologize for those. By: RUDY Miller, 01/06/2023 4:06 PM CDT documented in this encounter Plan of Treatment Not on file documented as of this encounter Visit Diagnoses Not on filedocumented in this encounter Care Teams Long Term Care Social Worker Relationship Specialty Start Date End Date Juni Hays MD PCP - General Internal Medicine 10/17/20 Shivam Benedict MD [address] [place] [address] Consulting Physician Pulmonary Disease 12/27/21 Radha Crews, COFFEE SHOP ATTENDANT, POLE SANDER OPERATOR [address] [place] [address] Nurse Practitioner Advanced Practice Nurse 01/04/22 Sacha Penn MD [address] [place] [address] Consulting Physician Neurology 07/25/23 documented as of this encounter
--- OUTSIDE RECORDS SUMMARY | 2024-11-30 18:12 | XMS_ITS | Encounter Summary ---
Author Organization [facility] Address [address] [place] [address] Phone Care Team Providers Care Inbound Sales Consultant Name Role Phone Juni Hays MD Primary Care Provider [phone] Shivam Benedict MD Unavailable Radha Crews APRN, [facility] Unavailable +- [phone] Sacha Penn MD Unavailable [phone] Encounter Details Date Type Department Care Team (Late st Contact Info) Description 12/03/2022 Nursing Facility [facility] [address] [place] [address] Varghese Gleason, [facility] [address] [place], [place] [id number] Social History Tobacco Use Types Packs/Day Years [...] Coronavirus/COVID-19? No / Unsure 11/22/2022 3:36 PM VIROLOGY TEACHER documented as of this encounter Progress Notes * Varghese Gleason, PAC - 12/03/2022 12:47 PM CST [facility] PROGRESS NOTE Blossom De León is a 57 y.o. female at [facility] for rehabilitation. Patient was hospitalized at [facility] from 08/16/2022 through 09/02/2022 for unstable burst fracture of the 4th lumbar vertebrae along with lumbar stenosis and neurogenic claudication which was treated with extensive lumbar surgery. Apparently after leaving the hospital she developed COVID-19 which made her weakness worse, did spend some time at [facility] prior to transferring to this facility on 11/05/2022. Subjective: Interval History: I am seeing patient acutely today for emergency room follow-up. Patient reports that she suffered a fall yesterday. She had an oncology appointment for follow-up of her neuroendocrine tumor of liver her oncology appointment went well and no need for treatment at this time and current plan is to observe with periodic imaging. After leaving the office in the parking lot she slipped on loose gravel and fell backwards, landingprimarily on her left buttock. Did hit her head but did not lose consciousness. Was sent to the emergency room where she was found to have a pelvic fracture. She is currently laying comfortably in bed. Says she is having trouble bearing weight on her left lower extremity because it makes her pelvis pain worse. She is interested in advancing her pain regimen but she is already on an aggressive pain regimen. Says she has been having some discomfort in her left upper back and in both rib cages but she is not having shortness of breath, she is taking deep breaths with minimal discomfort. Has no headaches or nausea vomiting. Past Medical History Positives Diagnosis Date ??? [...] Types: Cigarettes Quit date: 10/13/1987 Years since quittin.1 ??? Smokeless tobacco: Never Vaping Use ??? [...] PROXIMAL HUMERUS; Surgeon: Prosper Tolbert MD; [facility]: [facility]; Service: Orthopaedic ??? LUMBAR FUSION HAS CAGE IN PLACE ??? THYROID SURGERY 10/1986 [place] Review of Systems: A 14 point comprehensive review of systems was negative except what is documented in interval history above. Objective: Exam: Vital Signs: B/P: 110/76 Pulse: 88 Respirations: 16 Temperature: 96 General: Well developed, well nourished, in no [...] She is already on 10 mg oxycodone q.4 hours p.r.n. 12/03: Tylenol added on to regimen which is already an aggressive regimen. Pritesh should help as well. Neuroendocrine tumor of liver Followed By Oncology [...] repair Followed by neurosurgery Dr. Richardson at [facility] pain medicines Wearing brace at all [...] 11/22: Better GERD Continue Pepcid and Prilosec 11/19: Not well controlled. Will increase Pepcid dosing to b.i.d.. 11/22: Better hypokalemia 11/12: Labs ordered to be drawn tomorrow 11/15: Potassium of 3.2. Likely secondary to furosemide use. Started on potassium supplementation. Recheck in 1-2 weeks. Diabetes mellitus type 2 Current regimen includes Farxiga, Trulicity, Lantus and sliding scale Humalog and metformin Monitor Accu-Cheks and adjust regimen as necessary 11/15/2022: Uncontrolled as of late. Will increase Lantus dose. 11/19: Improved. Continue current regimen. 11/22: Stable 12/03: Well controlled Hypertension Continue antihypertensive regimen Monitor blood pressures Stable Neuropathy 11/12: Should be noted patient is on gabapentin as well as Lyrica. Will need to discuss this with the patient. Other chronic medical conditions include restless leg syndrome, migraines, hyperlipidemia, osteoporosis, depression, B12 deficiency, hypothyroidism Stable Continue home regimen Disposition: 11/26 - patient informed me that she had insurance cut. She is discussing with her daughter about appealing or finding placement versus going home. She does live with her daughter but [facility] does work full-time. If she ends up [...] system and there may be errors in home appliance tech. Despite proof reading the note, there may be mistakes and I apologize for those. By: RUDY Miller, 12/03/2022 12:47 PM VIROLOGY TEACHER LOGY TEACHER documented in this encounter Plan of Treatment Not on file documented as of this encounter Visit Diagnoses Not on filedocumented in this encounter Care Teams Inbound Sales Consultant Relationship Specialty Start Date End Date Juni Hays MD PCP - General Internal Medicine 10/17/20 Shivam Benedict MD [address] [place] [address] Consulting Physician Pulmonary Disease 12/27/21 Radha Crews APRN, TANDEM OPERATOR [address] [place] [address] Nurse Practitioner Advanced Practice Nurse 01/04/22 Sacha Penn MD [address] [place] [address] Consulting Physician Neurology 07/25/23 documented as of this encounter
--- OUTSIDE RECORDS SUMMARY | 2024-11-30 18:12 | XMS_ITS | Encounter Summary ---
Author Organization [facility] Address [address] [place] [address] Phone Care Team Providers Care Sprinkler Installer Name Role Phone Juni Hays MD Primary Care Provider [phone] Shivam Benedict MD Unavailable Radha Crews APRN, [facility] Unavailable +- [phone] Sacha Penn MD Unavailable [phone] Encounter Details Date Type Department Care Team (Late st Contact Info) Description 11/22/2022 Nursing Facility [facility] [address] [place] [address] Varghese Gleason, [facility] [address] [place], [place] [id number] Social History Tobacco Use Types Packs/Day Years [...] Coronavirus/COVID-19? No / Unsure 11/22/2022 3:36 PM MANAGER CONVENTION documented as of this encounter Progress Notes * Varghese Gleason, PAC - 11/22/2022 3:38 PM CST [facility] PROGRESS NOTE Blossom De León is a 57 y.o. female at [facility] for rehabilitation. Patient was hospitalized at [facility] from 08/16/2022 through 09/02/2022 for unstable burst fracture of the 4th lumbar vertebrae along with lumbar stenosis and neurogenic claudication which was treated with extensive lumbar surgery. Apparently after leaving the hospital she developed COVID-19 which made her weakness worse, did spend some time at [facility] prior to transferring to this facility on 11/05/2022. Subjective: Interval History: Patient is lying comfortably in bed. Says she feels ???okay?? . Has the TLSO brace off which she says feels well. Has appointment with Neurology later today for Botox injections. Says that earlier today she was trying to get to the toilet and she technically fell on the toilet with her buttocks landing on the seat. Fall have because of her legs being weak. However she does not believe that she injured herself as she is not having any worsening pain and she is moving her lower extremities normally. She otherwise has no symptoms or concerns and feels like therapy is going well. Nursing staff has no concerns about the patient. Past Medical History Positives Diagnosis Date ??? [...] PROXIMAL HUMERUS; Surgeon: Prosper Tolbert MD; Location: [facility]; Service: Orthopaedic ??? LUMBAR FUSION HAS CAGE IN PLACE ??? THYROID SURGERY 10/1986 [place] [employer] Review of Systems: A 14 point comprehensive review of systems was negative except what is documented in interval history above. Objective: Exam: Vital Signs: B/P: 118/92 Pulse: 94 Respirations: 16 Temperature: 96.9 General: Well developed, well nourished, in no distress Skin: Normal appearance, normal turgor, no rashes HEENT: Normocephalic, atraumatic, no flaring Eyes: nonicteric, [...] unremarkable. CBC with hemoglobin 11.9 otherwise unremarkable. Imaging: None Assessment/Plan: Lumbar fracture with lumbar stenosis and neurogenic claudication Status post surgical repair Followed by neurosurgery Dr. Richardson at [facility] pain medicines Wearing brace at all times Receiving [facility] and physical therapy rehabilitation 11/19: Patient saying [...] 11/19: Improved. Continue current regimen. 11/22: Stable Chronic systolic congestive heart failure EF id of 35% Continue Coreg, furosemide, Entresto and spironolactone Followed by Cardiology Dr. Huffman 11/19: Stable Hypertension Continue antihypertensive regimen Monitor blood pressures Stable Neuropathy 11/12: Should be noted patient is on gabapentin as well as Lyrica. Will need to discuss this with the patient. Other chronic medical conditions include restless leg syndrome, migraines, hyperlipidemia, osteoporosis, depression, B12 deficiency, hypothyroidism Stable Continue home regimen VTE Prophylaxis: Activity I discussed advanced care planning with this patient. This note was dictated using M*Modal fluency dictation system and there may be errors in paper roll machine operator. Despite proof reading the note, there may be mistakes and I apologize for those. By: Varghese Gleason, PAC, 11/22/2022 3:38 PM MANAGER CONVENTION GER CONVENTION documented in this encounter Plan of Treatment Not on file documented as of this encounter Visit Diagnoses Not on filedocumented in this encounter Care Teams Sprinkler Installer Relationship Specialty Start Date End Date Juni Hays MD PCP - General Internal Medicine 10/17/20 Shivam Benedict MD [address] [place] [address] Consulting Physician Pulmonary Disease 12/27/21 Radha Crews, BUILDING CONSTRUCTION ESTIMATOR, SLAT GRADER [address] [place] [address] Nurse Practitioner Advanced Practice Nurse 01/04/22 Sacha Penn MD [address] [place] [address] Consulting Physician Neurology 07/25/23 documented as of this encounter
--- OUTSIDE RECORDS SUMMARY | 2024-11-30 18:12 | XMS_ITS | Encounter Summary ---
Author Organization [facility] Address [address] [place] [address] Phone Care Team Providers Care Sheet Hanger Name Role Phone Juni Hays MD Primary Care Provider [phone] Shivam Benedict MD Unavailable Radha Crews APRN, [facility] Unavailable + [phone] Sacha Penn MD Unavailable [phone] Reason for Visit * Reason Onset Date Comments Medication Refill 01/15/2023 Encounter Details Date Type Department Care Team (Late st Contact Info) Description 01/15/2023 Refill [facility] [address] [place] [address] Varghese Gleason, PAC [address] [place], [place] [id number] Medication Refill Social History Tobacco Use Types [...] on file documented as of this encounter Plan of Treatment Not on file documented as of this encounter Visit Diagnoses Diagnosis Other chronic pain Cervicalgia documented in this encounter Care Teams Sheet Hanger Relationship Specialty Start Date End Date Juni Hays MD PCP - General Internal Medicine 10/17/20 Shivam Benedict MD [address] [place] [address] Consulting Physician Pulmonary Disease 12/27/21 Radha Crews, AUTOMATION TECH, TRIMMER AND BORER MACHINE OPERATOR [address] [place] [address] Nurse Practitioner Advanced Practice Nurse 01/04/22 Sacha Penn MD [address] [place] [address] Consulting Physician Neurology 07/25/23 documented as of this encounter
--- OUTSIDE RECORDS SUMMARY | 2024-11-30 18:12 | XMS_ITS | Encounter Summary ---
Author Organization [facility] Address [address] [place] [address] Phone Care Team Providers Care Charge Preparation Technician Name Role Phone Juni Hays MD Primary Care Provider [phone] Shivam Benedict MD Unavailable Radha Crews APRN, [facility] Unavailable +- [phone] Sacha Penn MD Unavailable [phone] Encounter Details Date Type Department Care Team (Late st Contact Info) Description 11/26/2022 Nursing Facility [facility] [address] [place] [address] Varghese Gleason, [facility] [address] [place], [place] [id number] Social History Tobacco Use Types Packs/Day Years [...] Coronavirus/COVID-19? No / Unsure 11/22/2022 3:36 PM HISTORY PROFESSOR documented as of this encounter Progress Notes * Varghese Gleason, PAC - 11/26/2022 1:59 PM CST [facility] PROGRESS NOTE Blossom De León is a 57 y.o. female at [facility] for rehabilitation. Patient was hospitalized at [facility] from 08/16/2022 through 09/02/2022 for unstable burst fracture of the 4th lumbar vertebrae along with lumbar stenosis and neurogenic claudication which was treated with extensive lumbar surgery. Apparently after leaving the hospital she developed COVID-19 which made her weakness worse, did spend some time at [facility] prior to transferring to this facility on 11/05/2022. Subjective: Interval History: Patient has developed a rash in her right hand. Reports that for the last 3 days she has noticed an erythematous area in her right hand along the base of pointer middle and ring fingers. Believes it has not changed much in size or appearance. Not particularly painful. Is moving her hand normally. There is no drainage from this area. She is not having any systemic symptoms. She is feeling well medically otherwise. She denies previous history ofsimilar symptoms. Has also been having diarrhea the last couple days. No abdominal pain. No nausea or vomiting. Chartreview shows that she was on scheduled laxative and stool softener. She is a little upset because she was informed that her insurance has cut her skilled therapy and she is not for sure what she is going to do. She is talking with her daughter about appealing verses placement versus going back home. Past Medical History Positives Diagnosis Date ??? [...] PROXIMAL HUMERUS; Surgeon: Prosper Tolbert MD; Location: [facility]; Service: Orthopaedic ??? LUMBAR FUSION HAS CAGE IN PLACE ??? THYROID SURGERY 10/1986 [place] [employer]oration[employer] Review of Systems: A 14 point comprehensive review of systems was negative except what is documented in interval history above. Objective: Exam: Vital Signs: B/P: 118/92 Pulse: 82 Respirations: 17 Temperature: 97.6 General: Well developed, well nourished, in no distress Skin: Normal appearance, normal turgor, no rashes 11/26: On the right hand there is faint blanchableerythema that is normal temperature to touch primarily at MCP joint of middle finger but also involving MCP joints of ring and pointer finger, there is no induration or fluctuance HEENT: Normocephalic, atraumatic, no flaring Eyes: nonicteric, intact extra occular movement, PERRL Neck: normal, supple, no lymphadenopathy Heart: regular rate and rhythm, S1, S2 normal, no murmur, click, rub or gallop Lungs: clear to ausculation, normal respirations, normal precautions Abdominal: soft, non-tender; bowel sounds normal; no masses, no organomegaly Extremities: no deformities, joint mobility appears intact, no clubbing 11/26: Has full range of motion in right hand and all fingers in all planes Neuro: Non-focal, CN intact, sensory and motor intact Psychological: alert and oriented X3, appropriate mood and affect, Intact judgement and memory Lab Results: 11/13/2022: CMP with glucose 194, sodium 146, potassium 3.2 otherwise unremarkable. CBC with hemoglobin 11.9 otherwise unremarkable. Imaging: None Assessment/Plan: Right hand edema and ecchymosis at the [...] purulence that she should seek immediate care. Diarrhea 11/26: This appears to be due to her laxatives and stool softeners which have been discontinued thistime and will check BMP and magnesium level to make sure she is not dehydrated or having any electrolyte abnormalities. Chronic systolic congestive heart failure EF of 35% Continue Coreg, furosemide, Entresto and spironolactone Followed by Cardiology Dr. Huffman 11/26: Stable Lumbar fracture with lumbar stenosis and neurogenic claudication Status post surgical repair Followed by neurosurgery Dr. Richardson at [facility] pain medicines Wearing brace at all [...] 11/19: Improved. Continue current regimen. 11/22: Stable Hypertension Continue antihypertensive regimen Monitor blood [...] follow-up in about 1 week from discharge. VTE Prophylaxis: Activity I discussed advanced care planning with this patient. This note was dictated using M*Modal fluency dictation system and there may be errors in hoop riveting machine operator helper. Despite proof reading the note, there may be mistakes and I apologize for those. By: RUDY Miller, 11/26/2022 2:01 PM HISTORY PROFESSOR ORY PROFESSOR documented in this encounter Plan of Treatment Not on file documented as of this encounter Visit Diagnoses Not on filedocumented in this encounter Care Teams Charge Preparation Technician Relationship Specialty Start Date End Date Juni Hays MD PCP - General Internal Medicine 10/17/20 Shivam Benedict MD [address] [place] [address] Consulting Physician Pulmonary Disease 12/27/21 Radha Crews APRN, CABLE CUTTER AND SWAGER [address] [place] [address] Nurse Practitioner Advanced Practice Nurse 01/04/22 Sacha Penn MD [address] [place] [address] Consulting Physician Neurology 07/25/23 documented as of this encounter
--- OUTSIDE RECORDS SUMMARY | 2024-11-30 18:13 | XMS_ITS | Encounter Summary ---
Author Organization [facility] Address [address] [place] [address] Phone Care Team Providers Care Footwear Production Machine Operator Name Role Phone Juni Hays MD Primary Care Provider [phone] Shivam Benedict MD Unavailable Radha Crews APRN, [facility] Unavailable +- [phone] Sacha Penn MD Unavailable [phone] Encounter Details Date Type Department Care Team (Late st Contact Info) Description 11/19/2022 Nursing Facility [facility] [address] [place] [address] Varghese Gleason, [facility] [address] [place], [place] [id number] Social History Tobacco Use Types Packs/Day Years [...] Coronavirus/COVID-19? No / Unsure 11/22/2022 3:36 PM SUMATRA OPENER documented as of this encounter Progress Notes * Varghese Gleason, PAC - 11/19/2022 1:52 PM CST [facility] PROGRESS NOTE Blossom De León is a 56 y.o. female at [facility] for rehabilitation. Patient was hospitalized at [facility] from 08/16/2022 through 09/02/2022 for unstable burst fracture of the 4th lumbar vertebrae along with lumbar stenosis and neurogenic claudication which was treated with extensive lumbar surgery. Apparently after leaving the hospital she developed COVID-19 which made her weakness worse, did spend some time at [facility] prior to transferring to this facility on 11/05/2022. Subjective: Interval History: Patient is lying comfortably in bed. Says she feels ???a little crappy?? . Feels like her back pain is not well controlled. Makes note that she has chronic back pain, has been on opioids for a long time, managed by her PCP Dr. Hays who she is planning on calling. She does not believe that she has been on Celebrex or Mobic before and is agreeable to try. Also feels like her GERD/indigestion has been uncontrolled as of late. Denies any constipation. No nausea or vomiting. Nursing staff has no concerns about the [...] PROXIMAL HUMERUS; Surgeon: Prosper Tolbert MD; Location: [facility]; Service: Orthopaedic ??? LUMBAR FUSION HAS CAGE IN PLACE ??? THYROID SURGERY 10/1986 [place] Confucianist Review of Systems: A 14 point comprehensive review of systems was negative except what is documented in interval history above. Objective: Exam: Vital Signs: B/P: 126/74 Pulse: 84 Respirations: 17 Temperature: 97.6 General: Well developed, well nourished, in no distress - pleasant, wearing the TLSO brace Skin: Normal appearance, normal turgor, no rashes [...] repair Followed by neurosurgery Dr. Richardson at [facility] pain medicines Wearing brace at all times Receiving assisted and physical therapy rehabilitation 11/19: Patient saying [...] discussed with patient and she is agreeable. GERD Continue Pepcid and Prilosec 11/19: Not well controlled. Will increase Pepcid dosing to b.i.d.. hypokalemia 11/12: Labs ordered to be drawn tomorrow 11/15: Potassium of 3.2. Likely secondary to furosemide use. Started on potassium supplementation. Recheck in 1-2 weeks. Diabetes mellitus type 2 Current regimen includes Farxiga, Trulicity, Lantus and sliding scale Humalog and metformin Monitor Accu-Cheks and adjust regimen as necessary 11/15/2022: Uncontrolled as of late. Will increase Lantus dose. 11/19: Improved. Continue current regimen. Chronic systolic congestive heart failure EF id [...] system and there may be errors in planer off bearer. Despite proof reading the note, there may be mistakes and I apologize for those. By: Varghese Gleason, PAC, 11/19/2022 1:53 PM SUMATRA OPENER TRA OPENER documented in this encounter Plan of Treatment Not on file documented as of this encounter Visit Diagnoses Not on filedocumented in this encounter Care Teams Footwear Production Machine Operator Relationship Specialty Start Date End Date Juni Hays MD PCP - General Internal Medicine 10/17/20 Shivam Benedict MD [address] [place] [address] Consulting Physician Pulmonary Disease 12/27/21 Radha Crews, ART INSTALLER, DAY CARE HOME PROVIDER [address] [place] [address] Nurse Practitioner Advanced Practice Nurse 01/04/22 Sacha Penn MD [address] [place] [address] Consulting Physician Neurology 07/25/23 documented as of this encounter
--- OUTSIDE RECORDS SUMMARY | 2024-11-30 18:13 | XMS_ITS | Encounter Summary ---
Author Organization [facility] Address [address] [place] [address] Phone Care Team Providers Care Picker/Puller Name Role Phone Armida Hays MD Primary Care Provider [phone] Shivam Benedict MD Unavailable Radha Crews APRN, [facility] Unavailable + [phone] Sacha Penn MD Unavailable [phone] Encounter Details Date Type Department Care Team (Late st Contact Info) Description 11/10/2022 Nursing Facility [facility] [address] [place] [address] Nena Peña MD [address] [place] [address] Social History Tobacco Use Types Packs/Day Years [...] on file documented as of this encounter H&P Notes * Nena Peña MD - 11/10/2022 11:59 PM CST [facility] History and Physical Chief Complaint: S/p posterior lumbar fusion HPI: Blossom De León is a 56 y.o. female who has transferred to [facility] for post-acute care and rehabilitation. The patient was hospitalized at [facility] from 08/16/2022 through 09/02/2022 for unstable burst fracture of the 4th lumbar vertebrae along with lumbar stenosisand neurogenic claudication which was treated with extensive lumbar surgery. After leaving the hospital she developed COVID-19 which made her weakness worse and she fell at home. She went to [facility] prior to transferring to this facility on 11/05/2022. At the time of this assessment the patient did not have any complaints and was wearing her back brace. She reported normal bowel movements and stated that her pain was well-controlled. History obtained from: patient, medical records Review of Prior External Notes: [facility] records, [facility] records Allergies: is allergic to amitriptyline hcl, imitrex [sumatriptan], macrobid [nitrofurantoin monohyd macro], other, sulfa antibiotics, tizanidine hcl, and tramadol. Past Medical History: She has a past medical history of Anxiety disorder, Arthritis, Cervicalgia, Chronic pain syndrome, Congestive heart failure (CHF) ([facility]), Coronary atherosclerosis, Depression, Diabetes mellitus ([facility]), Fibromyalgia, Fibromyalgia, Hypertension, Lumbago, Migraine headache, Thyroid cancer ([facility]), and Thyroid disorder. Surgical History: has a past surgical history that includes Hysterectomy, Total Abdominal (11/10/07); Cholecystectomy, Laparoscopic (08/08/14); Thyroid Surgery (10/1986); Carpal Tunnel Release (Bilateral); Cervical Fusion; Lumbar Fusion; and Humerus Fracture Surgery (Left, 02/28/2020). Social History: reports that she quit smoking about 35 years ago. She has never used smokeless tobacco. She reports that she does not drink alcohol and does not use drugs. Physical Exam: Vital Signs: All vitals were reviewed in the facility EMR and are stable. Exam: General: Well developed, well nourished, in no distress, full body back brace in place Skin: Normal appearance, normal turgor, no rashes HEENT: Normocephalic, atraumatic, no flaring, no upper teeth, partial dentures Eyes: nonicteric, intact extra occular movement, PERRL Neck: normal, supple, no lymphadenopathy Heart: irregular rate and rhythm, S1, S2 normal, no murmur, click, rub or gallop Lungs: clear to ausculation, normal respirations, normal precautions Abdominal: soft, non-tender; bowel sounds normal; no masses, no organomegaly : external genitalia normal in appearance Extremities: no deformities, joint mobility appears intact, no clubbing, discoloration BUE Neuro: Non-focal, CN intact, sensory and motor intact Psychological: alert and oriented X3, appropriate mood and affect, Intact judgement and memory Data Review: Lab Results: Lab Results Component Value Date HEMOGLOBIN 13.5 02/25/2020 HEMATOCRIT 45.9 02/25/2020 Lab Results Component Value Date SODIUM 132 (L) 12/08/2021 POTASSIUM 4.3 12/08/2021 CHLORIDE 92 (L) 12/08/2021 CO2VEN 23 12/08/2021 GLUCOSE 536 (HH) 12/08/2021 ANIONGAP 21.3 (H) 12/08/2021 BUN 21 (H) 12/08/2021 CREATININE 0.77 12/08/2021 CALCIUM 9.3 12/08/2021 No results found for: INR, PTP Imaging: Recent imaging reviewed and there were no new findings. Labs Ordered: The patient needs an EKG for irregular heart rhythm. 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 Huffman this week so we will wait for the results from that visit. Medication Changes: None Assessment/Plan: 1. Generalized weakness and decreased mobilization due to lumbar fusion and recent infection. The patient is to receive PT and OT at the SNF to improve strength, balance, and mobility back to baseline. 2. Lumbar fracture with lumbar stenosis and neurogenic claudication s/p lumbar fusion. Followed by neurosurgery Dr. Richardson at [place]. Pain is currently well- controlled and the patient is wearing a back brace at all times. Continue PT/OT at the SNF. 3. Diabetes mellitus type 2. Current regimen includes Farxiga, Trulicity, Lantus and sliding scale Humalog and metformin. Monitor Accu-Cheks and adjust regimen as necessary. 4. Chronic systolic congestive heart failure. Stable. EF of 35%. Continue Coreg, furosemide, Entresto and spironolactone. Irregular rhythm noted on physical exam. Has appointment with Cardiology Dr. Huffman this week. 5. Hypertension. BP stable. Continue management with Coreg. Monitor vital signs while at the SNF. 6. PNP. Well-controlled. Continue gabapentin and Lyrica. 7. GERD. No acute symptoms. Continue PPI therapy with omeprazole and H2 salbador therapy with famotidine. 8. Hyperlipidemia. Stable. Continue statin therapy with Lipitor. Check lipid panel periodically. 9. Depression. The patient's mood currently appears stable and they do not report any psychologicaldistress at this time. Continue SSRI therapy with Cymbalta. 10. Hypothyroidism. Well-controlled. Continue levothyroxine. Check TSH levels periodically. 11. Migraines. Well-controlled. Continue PRN rizatriptan. 12. Restless leg syndrome. Continue ropinirole. ?? VTE Prophylaxis: Mobilization Disposition and escalation or reduction of care: The patient is receive post- acute care and complete PT and OT at the SNF to improve their strength, balance, and mobility back to baseline with the goal of discharging to home. Barriers to Rehabilitation: decreased mobilization due to spinal fusion Advance Care Planning: Aggregate [id number] time, greater than 16 minutes was spent discussing end-of-life care planning with patient/family and/or Power of Restaurant Recruiter. Discussed CPR, Intubation, treatment goals, and Quality of life/Intensity of care. Patient desires CPR-Full Treatment IAmy, acting as a scribe, am personally taking down the notes in the presence of Dr. Nena Peña M.D. Take no action on this note until reviewed and authenticated by the physician. By: AMY HOWARD, 11/10/2022, 2:57 PM COMMERCIAL HVAC SERVICE TECHNICIAN Primary Care Physician: ARMIDA HAYS MD . I evaluated and examined the patient in the presence of aleksander Howard and discussed the physical findings and clinical assessment with her and reviewed the medical records and notes above and agree with the content and details of the note. ERCIAL HVAC SERVICE TECHNICIAN ERCIAL HVAC SERVICE TECHNICIAN ERCIAL HVAC SERVICE TECHNICIAN documented in this encounter Plan of Treatment Not on file documented as of this encounter Visit Diagnoses Not on filedocumented in this encounter Care Teams Picker/Puller Relationship Specialty Start Date End Date Armida Hays MD PCP - General Internal Medicine 10/17/20 Shivam Benedict MD [address] [place] [address] Consulting Physician Pulmonary Disease 12/27/21 Radha Crews, LOCKMAKER, TEXT TRANSCRIBER [address] [place] [address] Nurse Practitioner Advanced Practice Nurse 01/04/22 Sacha Penn MD [address] [place] [address] Consulting Physician Neurology 07/25/23 documented as of this encounter
--- OUTSIDE RECORDS SUMMARY | 2024-11-30 18:13 | XMS_ITS | Encounter Summary ---
Author Organization [facility] Address [address] [place] [address] Phone Care Team Providers Care Coordinator Of Online Programs Name Role Phone Juni Hays MD Primary Care Provider [phone] Shivam Benedict MD Unavailable Radha Crews APRN, [employer] SPECIAL[employer] Unavailable + [phone] Sacha Penn MD Unavailable [phone] Reason for Visit * Reason Comments Medication Refill Encounter Details Date Type Department Care Team (Late st Contact Info) Description 02/21/2022 Refill [facility] - Neurology [facility] [address] [place] [address] Sacha Penn MD [address] [place] [address] Medication Refill Social History Tobacco [...] suspected to have Coronavirus/COVID-19? No / Unsure 02/08/2022 9:03 AM CDT documented as of this encounter Plan of Treatment Not on file documented as of this encounter Visit Diagnoses Not on filedocumented in this encounter Care Teams Coordinator Of Online Programs Relationship Specialty Start Date End Date Juni Hays MD PCP - General Internal Medicine 10/17/20 Shivam Benedict MD [address] [place] [address] Consulting Physician Pulmonary Disease 12/27/21 Radha Crews, ADVERTISING WRITER, INTRANET SPECIALIST [address] [place] [address] Nurse Practitioner Advanced Practice Nurse 01/04/22 Sacha Penn MD [address] [place] [address] Consulting Physician Neurology 07/25/23 documented as of this encounter
--- OUTSIDE RECORDS SUMMARY | 2024-11-30 18:13 | XMS_ITS | Clinical Summary ---
Author Organization [facility] [place] [address] Address [address] [place] [address] Care Team Providers Care Control Room Helper Name Role Phone Kingston Jain DO Unavailable [phone] Candido Lobato MD Unavailable [phone] Kelli Bassett Unavailable [phone] Juni Hays MD Primary Care Provider [phone] Allergies Active Allergy Reactions Criticality Noted Date Comments Amitriptyline Other (See comments) High 07/13/2019 Caused severe waking nightmares Caused severe waking nightmares Caused severe waking nightmares Baclofen Stomach upset,Nausea only Low 11/28/2020 Nitrofurantoin Nausea only,Vomiting,Diarrhe a,Nausea And Vomiting Low 07/13/2019 Reaction: NAUSEA, VOMITING, , , , , Nitrofurantoin Monohyd/M-Cryst Diarrhea,Nausea only,Vomiting Low 02/21/2020 Prochlorperazine Unknown 02/21/2020 Propoxyphene Vomiting Low 01/07/2012 VOMITING Sulfa (Sulfonamide Antibiotics) Other (See comments),Hives High 07/13/2019 Non life threatening hepatitis Non life threatening hepatitis Non life threatening hepatitis Sulfanilamide Sumatriptan Diarrhea,Nausea only,Vomiting Low Tizanidine Hallucinations Medium 07/13/2019 Trazodone Nausea And Vomiting,Nausea only,Vomiting Low 07/13/2019 Reaction: NAUSEA, VOMITING, suicidal thoughts Medications DULoxetine DR (CYMBALTA) 60 mg capsule Take 1 capsule (60 mg total) by mouth daily 90 capsule 3 Active cyanocobalamin (Vitamin B-12) 1,000 mcg/mL injection Inject 1 mL (1,000 mcg total) into the muscle as instructed every 30 (thirty) days 1 mL Active pen needle, diabetic (BD Tereza 2nd Gen Pen Needle) 32 gauge x needleIndications :Uncontrolled type 2 diabetes mellitus with hyperglycemia (HCC) Use 4 times a day 400 each Active OneTouch Delica Plus Lancet 30 gauge misc USE 1 LANCET TO TEST BLOOD SUGAR THREE TIMES A DAY 50 each Active pregabalin (LYRICA) 75 mg capsule Take 1 capsule (75 mg total) by mouth 2 (two) times a day 180 capsule 2024 Active rizatriptan (MAXALT) 10 mg tablet Take 1 tablet (10 mg total) by mouth once as needed for migraine May repeat in 2 hours if unresolved. Do not exceed 30 mg in 24 hours. 9 tablet 11 Active metoprolol tartrate (LOPRESSOR) 25 mg immediate release tablet Take 0.5 tablets (12.5 mg total) by mouth 2 (two) times a day 90 tablet 3 2024 Active bisacodyL (DULCOLAX) 10 mg suppository Insert 1 suppository (10 mg total) into the rectum daily as needed for constipation (If no results 24 hours after milk of magnesia (may give bisacodyl tablet if tolerating PO)) Active bisacodyl EC (DULCOLAX EC) 5 mg EC tablet Take 2 tablets (10 mg total) by mouth daily as needed for constipation (If no results 24 hours after milk of magnesia (may give bisacodyl supp if not tolerating PO)) 30 tablet Active potassium chloride ER 20 mEq CR tablet TAKE 1 TABLET(20 MEQ) BY MOUTH DAILY 30 tablet 11 Active rOPINIRole (REQUIP) 0.25 mg tablet Take 1 tablet (0.25 mg total) by mouth nightly Active atorvastatin (LIPITOR) 20 mg tablet Take 1 tablet (20 mg total) by mouth every evening Active calcium carbonate (TUMS) 500 mg (200 mg elemental calcium) chewable tablet Take 2 tablet/chew tab (1,000 mg total) by mouth 3 (three) times a day as needed for heartburn or indigestion 2024 Active sodium chloride (OCEAN) 0.65 % nasal spray Administer 1 spray into each nostril every 2 (two) hours as needed for congestion [address] (PROTONIX) 40 mg EC tablet TAKE 1 TABLET(40 MG) BY MOUTH DAILY 30 tablet 3 Active buprenorphine (BUTRANS) 10 mcg/hourIndicatio ns:severe chronic pain with opioid tolerance Place 1 patch on the skin once a week 4 patch 2 Active spironolactone (ALDACTONE) 25 mg tablet Take 1 tablet (25 mg total) by mouth daily 30 tablet 11 2024 Active midodrine (PROAMATINE) 10 mg tablet Take 1 tablet (10 mg total) by mouth 3 (three) times a day before meals 90 tablet 5 2024 Active ergocalciferol (VITAMIN D) 50,000 unit capsule Take 1 capsule (50,000 Units total) by mouth once a week Fridays 13 capsule 3 Active levothyroxine (SYNTHROID) 125 mcg tablet Take 1 tablet (125 mcg total) by mouth daily 90 tablet 3 Active ondansetron (ZOFRAN) 4 mg tablet Take 1 tablet (4 mg total) by mouth every 8 (eight) hours as needed for nausea or vomiting 20 tablet 5 Active artifi.tears,hypr omellose,,PF, 0.3 % drops Administer 2 drops into affected eye(s) 3 (three) times a day as needed (dry eye) 14 mL 11 Active acetaminophen (TYLENOL) 325 mg tablet Take 2 tablets (650 mg total) by mouth every 6 (six) hours 30 tablet 11 Active cyclobenzaprine (FLEXERIL) 10 mg tablet Take 1 tablet (10 mg total) by mouth 3 (three) times a day as needed for muscle spasms 60 tablet 3 Active amiodarone (PACERONE) 200 mg tablet Take 1 tablet (200 mg total) by mouth daily 90 tablet 1 024 2024 Active Calcium 500 + D 500 mg-5 mcg (200 unit) per tablet TAKE 1 TABLET BY MOUTH DAILY 90 tablet Active teriparatide (FORTEO) 20 mcg/dose (600mcg/2.4mL) injectionIndicati ons:postmenopausa l osteoporosis and high fracture risk Inject 0.08 mL (20 mcg total) under the skin daily on abdomen or thigh. Lie down 10 minutes after injection. 2.4 mL 11 025 2025 Active hydrocortisone (ANUSOL-HC) 2.5 % rectal cream INSERT RECTALLY TO THE AFFECTED AREA FOUR TIMES DAILY NEEDED FOR HEMORRHOIDS 30 g 2 Active aspirin 81 mg enteric coated tablet Take 1 tablet (81 mg total) by mouth daily Active hydrocortisone (ANUSOL-HC) 25 mg suppository Insert 1 suppository (25 mg total) into the rectum 2 (two) times a day Active Entresto 24-26 mg tablet Take 0.5 tablets by mouth 2 (two) times a day 90 tablet 3 025 2025 Active furosemide (LASIX) 40 mg tablet Take 1 tablet (40 mg total) by mouth 2 (two) times a day Active mirtazapine (REMERON RAOUL-TAB) 15 mg disintegrating tablet Take 1 tablet (15 mg total) by mouth nightly 025 2024 Active oxyCODONE (ROXICODONE) 10 mg tablet Take 1 tablet (10 mg total) by mouth every 6 (six) hours as needed for pain 5 tablet Active blood-glucose sensor (Dexcom G7 Sensor) deviceIndications :Uncontrolled type 2 diabetes mellitus with hyperglycemia (HCC),Insulin long-term use (CMS/HCC) (HCC) USE DIRECTED, CHANGE SENSOR EVERY 10 DAYS 9 each 3 Active senna-docusate (PERICOLACE) 8.6-50 mg Take 1 tablet by mouth 2 (two) times a day Active polyethylene glycol (MIRALAX) 17 gram/dose bulk powderIndications :constipation Take 17 g by mouth daily Active polyvinyl alcohol-povidone (REFRESH CLASSIC) 1.4-0.6 % dropperette Administer 2 drops into both eyes 4 (four) times a day as needed for dry eyes Active warfarin (COUMADIN) 3 mg tabletIndications :LV thrombus Take 1 tablet (3 mg total) by mouth daily Active insulin glargine 100 unit/mL (3 mL) pen for injection Inject 27 Units under the skin daily before breakfast Active insulin lispro (HumaLOG, ADMELOG) 100 unit/mL pen for injection Inject 15 Units under the skin 3 (three) times a day with meals Lispro 15 units three times daily with meals + correction 2 units for every 50 points greater than 150 mg/dl Active insulin lispro (HumaLOG, ADMELOG) 100 unit/mL pen for injection Inject 7 Units under the skin 4 (four) times a day as needed (w/ snacks) Lispro 7 units Q4 hours as needed for snacks with greater than 20 grams of carbohydrate. Active metFORMIN XR (GLUCOPHAGE XR) 500 mg 24 hr tabletIndications :Uncontrolled type 2 diabetes mellitus with hyperglycemia (HCC) Take 1 tablet (500 mg total) by mouth 2 (two) times a day 2 tabs po daily (hold if nause/vomit or not feeling well). Active insulin lispro (HumaLOG, ADMELOG) 100 unit/mL pen for injection Inject 1-10 Units under the skin nightly Lispro bedtime correction 1 unit for every 50 points greater than 150 mg/dl Active naloxone (NARCAN) 4 mg/actuation spray,non-aerosol Administer 1 spray into affected nostril(s) as needed for opioid reversal for up to 2 doses Call 911. Administer a single spray in one nostril. Repeat every 3 minutes as needed if no or minimal response. 2 each 024 2024 Discontinued(S top Taking at Discharge) blood-glucose sensor (Dexcom G7 Sensor) deviceIndications :Uncontrolled type 2 diabetes mellitus with hyperglycemia (HCC),Insulin long-term use (CMS/HCC) (HCC) Change every 10 days 9 each 3 024 2024 Discontinued hydrocortisone (ANUSOL-HC) 2.5 % rectal cream Insert into the rectum 4 (four) times a day as needed for hemorrhoids (rectal discomfort) Apply to affected areas 30 g 2 024 2024 Discontinued metFORMIN (GLUCOPHAGE) 1,000 mg tablet Take 1 tablet (1,000 mg total) by mouth daily with breakfast 90 tablet 3 024 2024 Discontinued(D uplicate order) furosemide (LASIX) 40 mg tablet TAKE 1 TABLET(40 MG) BY MOUTH DAILY 30 tablet 11 2024 Discontinued insulin lispro (HumaLOG, ADMELOG) 100 unit/mL vial for injection Inject 2-10 units under the skin 3 (three) times a day with meals. Blood glucose mg/dL 150-199: 2 units, 200-249: 4 units, 250-299: 6 units, 300-349: 8 units, 350 or greater: 10 units. Notify provider for blood glucose greater than 299 mg/dL. Refer to After Visit Summary for Sliding Scale Insulin Instructions. 024 2024 Discontinued(D uplicate order) insulin lispro (HumaLOG, ADMELOG) 100 unit/mL vial for injection Inject 2-10 units under the skin 3 (three) times a day with meals. Blood glucose mg/dL 150-199: 2 units, 200-249: 4 units, 250-299: 6 units, 300-349: 8 units, 350 or greater: 10 units. Notify provider for blood glucose greater than 299 mg/dL. Refer to After Visit Summary for Sliding Scale Insulin Instructions. 2024 Discontinued insulin lispro (HumaLOG, ADMELOG) 100 unit/mL vial for injection Inject 5 Units under the skin 3 (three) times a day with meals 11/18/2 024 01/24/ 2025 Discontinued(D uplicate order) dextrose (GLUTOSE) 40 % gelIndications:hy poglycemic disorder Take 15 g by mouth every 15 (fifteen) minutes as needed for low blood sugar (blood glucose less than 70 mg/dL) 2024 Discontinued(S top Taking at Discharge) insulin glargine (LANTUS, SEMGLEE) 100 unit/mL vial for injectionIndicati ons:Diabetes Mellitus Inject 25 Units under the skin every morning 024 2024 Discontinued alendronate (FOSAMAX) 70 mg tablet Take 1 tablet (70 mg total) by mouth every 7 days Take in the morning with a full glass of water, on an empty stomach, and do not take anything else by mouth or lie down for the next 30 min. 12 tablet 1 024 2024 Discontinued(D uplicate order) warfarin (COUMADIN) 2 mg tabletIndications :atrial fibrillation,Apic al thrombus Take 1 tablet (2 mg total) by mouth daily Patient should take of warfarin 2 mg daily at 5:00 p.m. for 6 days a week and 1.5 mg 1 day 30 tablet 5 2024 Discontinued(S top Taking at Discharge) Entresto 24-26 mg tablet Take 1 tablet by mouth 2 (two) times a day 180 tablet 3 024 2024 Discontinued LORazepam (ATIVAN) 0.5 mg tabletIndications :MRI scan anxiety Take 1 Tablet (0.5 mg) one hour prior to MRI and 1 Tablet (0.5 mg) if needed at time of scan, for MRI scan anxiety. 2 tablet 024 2024 Discontinued(T herapy completed) oxyCODONE (ROXICODONE) 10 mg tablet Take 1 tablet (10 mg total) by mouth every 6 (six) hours as needed for pain 120 tablet 2024 Discontinued empagliflozin (JARDIANCE) 10 mg tabletIndications :heart failure associated with type 2 diabetes mellitus Take 1 tablet (10 mg total) by mouth daily 30 tablet 025 2024 Discontinued(O ther) enoxaparin (LOVENOX) 60 mg/0.6 mL syringe Inject 0.6 mL (60 mg total) under the skin every 12 (twelve) hours 6 mL 025 2024 Discontinued(S top Taking at Discharge) insulin lispro (HumaLOG, ADMELOG) 100 unit/mL vial for injectionIndicati ons:Uncontrolled type 2 diabetes mellitus with hyperglycemia (HCC) Inject 2-10 units under the skin 3 (three) times a day with meals. Blood glucose mg/dL 150-199: 1 units, 200-249: 2 units, 250-299: 3 units, 300-349: 4 units, 350 or greater: 5 units. Notify provider for blood glucose greater than 299 mg/dL. Refer to After Visit Summary for Sliding Scale Insulin Instructions. 30 mL 3 025 2024 Discontinued(T herapy completed) teriparatide (FORTEO) 20 mcg/dose (600mcg/2.4mL) injectionIndicati ons:Osteoporosis with current pathological fracture, unspecified osteoporosis type, sequela,Postmenop ausal osteoporosis,At high risk for fracture Inject 0.08 mL (20 mcg total) under the skin daily on abdomen or thigh. Lie down 10 minutes after injection. 2.4 mL 11 025 2024 Discontinued metFORMIN XR (GLUCOPHAGE XR) 500 mg 24 hr tabletIndications :Uncontrolled type 2 diabetes mellitus with hyperglycemia (HCC) 2 tabs po daily (hold if nause/vomit or not feeling well). 60 tablet 11 025 2024 Discontinued alendronate (FOSAMAX) 70 mg tablet Take 1 tablet (70 mg total) by mouth every 7 days Take in the morning with a full glass of water, on an empty stomach, and do not take anything else by mouth or lie down for the next 30 min. 2024 Discontinued(T herapy completed) empagliflozin (JARDIANCE) 10 mg tablet Take 1 tablet (10 mg total) by mouth daily 2024 Discontinued(T herapy completed) furosemide (LASIX) 40 mg tablet Take 1 tablet (40 mg total) by mouth daily 025 2024 Discontinued insulin lispro (HumaLOG, ADMELOG) 100 unit/mL pen for injection Inject 5 Units under the skin 3 (three) times a day with meals (plus blood glucose mg/dL 150-199: 2 units, 200-249: 4 units, 250-299: 6 units, 300-349: 8 units, 350 or greater: 10 units. Notify provider for blood glucose greater than 299 mg/dL. Refer to After Visit Summary for Sliding Scale Insulin Instructions. 2024 Discontinued warfarin (COUMADIN) 2 mg tabletIndications :LV thrombus Take 1 tablet (2 mg total) by mouth daily 2024 Discontinued(S top Taking at Discharge) insulin glargine (LANTUS, SEMGLEE) 100 unit/mL vial for injectionIndicati ons:Diabetes Mellitus Inject 30 Units under the skin every morning 2024 Discontinued(S top Taking at Discharge) insulin glargine 100 unit/mL (3 mL) pen for injection Inject 27 Units under the skin nightly 2024 Discontinued insulin lispro (HumaLOG, ADMELOG) 100 unit/mL pen for injection Inject 7 Units under the skin 3 (three) times a day with meals (plus blood glucose mg/dL 150-199: 2 units, 200-249: 4 units, 250-299: 6 units, 300-349: 8 units, 350 or greater: 10 units. Notify provider for blood glucose greater than 299 mg/dL. Max daily dose ) Refer to After Visit Summary for Sliding Scale Insulin Instructions. 2024 Discontinued(S top Taking at Discharge) insulin lispro (HumaLOG, ADMELOG) 100 unit/mL pen for injection Inject 20 Units under the skin 3 (three) times a day with meals Lispro 20 units three times daily with meals + correction 2 units for every 50 points greater than 150 mg/dl 025 2024 Discontinued insulin lispro (HumaLOG, ADMELOG) 100 unit/mL pen for injection Inject 9 Units under the skin 4 (four) times a day as needed (with snacks >20g carbs) 025 2024 Discontinued Active Problems Problem Noted Date Diagnosed Date Discharge planning issues 11/30/2024 Assessment & Plan (11/30/2024 7:29 AM ESTHETICIAN MAKEUP ARTIST): Remains medically stable for over a week. Waiting on insurance auth for SNF. Denied. P2P completed on 11/30 and decision overturned. -patient is a good SNF candidate requiring care from PT/OT and nursing staff. She requires adjustments to her insulin regimen and close monitoring of her respiratory status given severe CHF Heart failure 11/18/2024 Chest pain 11/08/2024 NSTEMI (non-ST elevated myocardial infarction) ( [facility]) 11/08/2024 Chronic combined systolic an d diastolic heart failure ([facility]) 10/25/2024 Atrial thrombus 08/26/2024 Assessment & Plan (11/29/2024 6:45 AM ESTHETICIAN MAKEUP ARTIST): On warfarin at home, has been held pre operatively -11/20 bridge to therapeutic warfarin, restarted on home dose of warfarin 2mg -11/22: load with warfarin 5mg and switch back to home 2mg after that. -INR >3 so lovenox stopped. -cont warfarin 2mg. - INR daily Assessment & Plan (09/16/2024 6:15 PM ESTHETICIAN MAKEUP ARTIST): Eliquis discontinued in favor of warfarin. Weakness generalized 08/23/2024 Assessment & Plan (09/16/2024 6:14 PM ESTHETICIAN MAKEUP ARTIST): Probably combination of multiple beta-salbador usage and worsening ejection fraction. Currently improved. Call back if she has a change in condition. Elevated brain natriuretic peptide (BNP) level 1 10/23/2023 Stress fracture of femoral neck 08/09/2024 Hip fracture requiring opera tive repair, left, closed, with routine healing, subsequent encounter 06/11/2024 Assessment & Plan (08/09/2024 11:17 AM CDT): The patient has femoral neck fracture has impacted. She does have some protrusion of the screw heads but fortunately not through the femoral head. The patient should remain on restricted weight-bearing. She admitted to being noncompliant with the 50% weight-bearing. She has returned to office for follow-up films in 3-4 weeks. Assessment & Plan (07/30/2024 11:41 AM CDT): Continue 50% weight-bearing and follow up with her orthopedist as they direct. Acute on chronic anemia 06/04/2024 GI bleed 06/04/2024 Assessment & Plan (08/20/2024 7:53 AM ESTHETICIAN MAKEUP ARTIST): Recent hospitalization for melena 2 months ago. So far seems cleared resolved. Upper endoscopy noted with gastritis and esophagitis in the setting of coagulopathy of Eliquis and aspirin. I do not see a need for endoscopic evaluation at this time. Will repeat blood counts and iron levels and replace as needed. She may continue aspirin and Eliquis. Discussed with the patient to call the office she noticed black stool again for re-evaluation. Fall, initial encounter 06/03/2024 Debility 12/01/2023 Assessment & Plan (11/29/2024 6:46 AM ESTHETICIAN MAKEUP ARTIST): Chronic. 2/2 recent hospitalization and now post surgery. But chronically debilitated 2/2 severe CHF -PT/OT---evaluated during OSH admission and recommended SNF. Re-eval still rec SNF. Working on placement. -OOB, PT/OT. Assessment & Plan (12/01/2023 10:53 AM ESTHETICIAN MAKEUP ARTIST): She has unfortunately been in and out of ours and other hospitals for the last several weeks due to multiple issues all contributing to her debility and declining functional status. Time course as follows: 10/29 - 11/02: admitted to [facility] for respiratory failure thought due to influenza and volume overload. Unfortunately , she had worsening back and neck pain during this admission that continued on discharge. She was not only limited by her deconditioning and dyspnea from her respiratory failure but also by this back pain 11/07 - presented to PCP and then ED with the same worsening back and neck pain for 10-12 days causing her to be fairly immobile at home. Found to have T5 compression deformity. Attempted dc with conservative pain management but was unable to stay there due to worsening pain 11/08-11/20 - hospitalized at [facility] for compression fracture and intractable neck/back pain related to this. No surgery service available there, so she was listed for transfer and could not be transferred due to bed availability for several days. Patient quite immobile at the time given that she had not had intervention at this time Now admitted here since 11/21 (see compression fracture). Continues to have reduced stamina from prior to these recurrent admissions Blepharitis of both eyes with rosacea 11/23/2023 ICD (implantable cardioverter-defibrillator) in place 2023 Assessment & Plan (11/22/2023 2:26 PM ESTHETICIAN MAKEUP ARTIST): - S/p prophylactic single chamber ICD (Biotronik) 07/15/23 for persistent LV dysfunction/non-ischemic cardiomyopathy Eye pain, left 2023 Assessment & Plan (11/24/2023 4:20 PM ESTHETICIAN MAKEUP ARTIST): No evidence of corneal abrasion on exam per Ophtho. Exam consistent with ocular rosacea. - Ophthalmology consult: start doxycycline 100mg BID x7 days, refresh PM qhs, and artificial tears QID Compression fracture of thoracic vertebra, seque la 11/20/2023 Assessment & Plan (01/02/2024 6:28 PM CDT): Home Health for PT and OT for continued weakness related to her prolonged hospitalizations and vertebral compression fracture and kyphoplasty. Assessment & Plan (12/03/2023 9:07 AM ESTHETICIAN MAKEUP ARTIST): 3 week Hx of acute on chronic upper and mid thoracic back pain. +midline tenderness at sites without evidence of saddle symptoms/neurologic compromise. Hx of thoracolumbar to sacral fusion with Dr. Richardson (NS) 08/29/2022 followed by kyphoplasty above her fusion due to progressive thoracic kyphosis and compressions deformities. - NSGY consult, recommend brace, upright scoliosis scans (ordered), no surgical intervention, agree with [facility]-IR consult - [facility] IR consult, s/p NM SPECT/CT of T spine with acute T5 fracture, s/p T4-T6 kyphoplasty 11/24 - pain regimen: cymbalta, fentanyl patch, lyrica + PRN apap and oxycodone 15mg q4h - opioid induced constipation was controlled s/p enema at OSH and on scheduled [place]. However, not tolerating increased dose so reduced back to prior , now with improved symptoms - pt rec'd for IPR, awaiting peer to peer planned 12/01--> denied. Family applied for appeal. Waiting for response. Drug-induced hypotension 11/11/2023 Chronic respiratory failure with hypoxia (CMS/HC C) 11/11/2023 Assessment & Plan (11/29/2024 6:46 AM ESTHETICIAN MAKEUP ARTIST): On 3L O2 via NC at all times. - Continue supplemental O2 - SpO2 w/ tele. Closed wedge compression fracture of T5 vertebra 11/11/2023 Compression fracture of body of thoracic vertebr a (CMS/HCC) 11/10/2023 Intractable back pain 11/07/2023 Assessment & Plan (11/07/2023 8:36 AM ESTHETICIAN MAKEUP ARTIST): Acute on chronic-worsening for the last 10 days after coughing Ordered x-rays Follow up with pain management as scheduled Continue current regimen as directed by pain management Continue to monitor On supplemental oxygen by nasal cannula 11/07/19 Overview (02/27/2024): Developed oxygen requirement after hospitalization for influenza. Assessment & Plan (02/27/2024 2:56 PM CDT): Continue oxygen supplementation to keep O2 sats above 90%. Continue efforts at weaning once weekly. Assessment & Plan (01/02/2024 6:29 PM CDT): Continue oxygen supplementation but suggested trials of weaning at home to see if requires oxygen and start with holding oxygen therapy at rest and replacing if O2 sats drop below 90%. Assessment & Plan (11/07/2023 8:40 AM ESTHETICIAN MAKEUP ARTIST): Acute problem-stable Continue with oxygen supplement 2 to 3 L via nc as directed Continue to monitor Hypoxemia 10/29/2023 Assessment & Plan (05/31/2024 5:45 PM CDT): Continue oxygen supplementation at 2 liters/minute continuously. Continue efforts at weaning and discontinuation. Recommended incentive spirometry throughout the day. Nasal septum perforation 10/08/2023 Assessment & Plan (10/08/2023 2:38 PM ESTHETICIAN MAKEUP ARTIST): Septal perforation Nasal saline spray (Simply saline, [employer], [place], [place]) 2 second sprays or 2 squeezes into each nostril while looking down over the sink, do not need to sniff in 3-4 times per day Max out humidifier on CPAP Sniff in and spit out when using saline Chronic rhinitis 10/08/2023 Assessment & Plan (10/08/2023 2:38 PM ESTHETICIAN MAKEUP ARTIST): Septal perforation Nasal saline spray (Simply saline, [employer], [place], [place]) 2 second sprays or 2 squeezes into each nostril while looking down over the sink, do not need to sniff in 3-4 times per day Max out humidifier on CPAP Sniff in and spit out when using saline Epistaxis 10/08/2023 Assessment & Plan (10/08/2023 2:38 PM ESTHETICIAN MAKEUP ARTIST): Septal perforation Nasal saline spray (Simply saline, [employer], [place], [place]) 2 second sprays or 2 squeezes into each nostril while looking down over the sink, do not need to sniff in 3-4 times per day Max out humidifier on CPAP Sniff in and spit out when using saline Atrial fibrillation (CMS/HCC) 09/26/2023 Assessment & Plan (11/29/2024 6:44 AM ESTHETICIAN MAKEUP ARTIST): - Continue home amiodarone, metoprolol. -AC as elsewhere. -tele Assessment & Plan (09/16/2024 6:12 PM ESTHETICIAN MAKEUP ARTIST): Rate controlled on metoprolol and will continue warfarin. She is aware to take this medication in the evening. She knows to keep her leafy green vegetable intake consistent. She is also aware to call the office if she does not hear from us regarding her INR and warfarin instructions by the afternoon of testing.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 Patient remains asymptomatic with a nonocclusive coronary artery disease. She will continue with aggressive secondary risk factor modification. Assessment & Plan (07/05/2020 10:38 AM CDT): Patient has had chest discomfort and known mild coronary disease. In light of her recent development of systolic CHF she will obtain Lexiscan stress testing looking for an ischemic etiology. She will continue with aggressive secondary risk factor modification. Hypokalemia 06/19/2020 Assessment & Plan (11/29/2024 6:46 AM ESTHETICIAN MAKEUP ARTIST): K 3.0 overnight - Replete K to goal > 4. - Daily BMP Assessment & Plan (10/11/2022 6:51 PM ESTHETICIAN MAKEUP ARTIST): Increase potassium supplement to 40 mEq in the morning and 20 in the afternoon. Check metabolic panel 1 week and call back for results Chronic combined systolic an d diastolic congestive heart failure (CMS/HCC) 06/19/2020 Overview (02/06/2023): Images from the original note were not included. Assessment & Plan (11/29/2024 6:45 AM ESTHETICIAN MAKEUP ARTIST): EF 15-20%. Has ICD. Patient recently admitted to [facility] from 11/08-11/17 for chest pain and noted to be in CHF exacerbation. ACS was ruled out and she was treated with her home CHF medications, lasix ended up being increased to 40mg BID with improvement in her SOB and dyspnea. - OR 11/18/24 for R carotid barostim placement - normotensive BP goals -PT/OT -pain control -cont lasix daily and spironolactone -cont metop, entresto -monitor on tele -reports dyspnea on exertion at times. From OSH notes, patient increased to lasix BID so given ongoing dyspnea. Will increase lasix to BID here as well Assessment & Plan (09/16/2024 6:11 PM ESTHETICIAN MAKEUP ARTIST): Appears to be well compensated today and should continue current medication regimen follow up with the store team leader as they direct. Assessment & Plan (07/30/2024 11:44 AM CDT): Fairly well compensated today but is having slight pedal edema. Patient will take an extra tablet of furosemide today and keep her legs elevated. She will monitor sodium in her diet as well. Continue her Entresto, metoprolol and Jardiance. Assessment & Plan (05/31/2024 5:41 PM CDT): Remains well compensated on current medical regimen should follow up with the store team leader as they direct. Assessment & Plan (02/27/2024 2:54 PM CDT): Remains well compensated on current medical regimen should follow up with the store team leader as they direct. Assessment & Plan (12/01/2023 7:18 PM ESTHETICIAN MAKEUP ARTIST): Well compensated on current medical regimen and status post ICD. Follow-up with her store team leader as they direct Assessment & Plan (11/25/2023 5:15 PM ESTHETICIAN MAKEUP ARTIST): - Continue entresto, statin, and lasix - Holding coreg given bradycardia (HR 40s) - starting amlodipine for ongoing hypertension Assessment & Plan (07/03/2023 11:55 AM CDT): Well compensated on her carvedilol, Farxiga, Entresto and should follow-up with store team leader as they direct Assessment & Plan (05/04/2023 12:07 PM CDT): Continue carvedilol but reduce furosemide to every other day. Restart Entresto. Monitor results and restart spironolactone down the road if able. Call back if blood pressures go too low Assessment & Plan (02/06/2023 5:11 PM CDT): Well compensated on her spironolactone, Entresto, furosemide and should follow up with store team leader as they direct. Assessment & Plan (10/11/2022 6:47 PM ESTHETICIAN MAKEUP ARTIST): Continue current medication regimen follow up with store team leader as they direct Assessment & Plan (06/12/2022 12:51 PM CDT): Continue current medication regimen including her torsemide 40 mg twice daily but reduced to once daily if develops hypotension again or swelling improved. Reduce salt in her diet. Assessment & Plan (04/23/2022 10:36 AM CDT): BNP elevated. She responded to diuresis. Continue Lasix 20 mg daily. Check metabolic panel before next visit. Increase potassium rich foods. She has discussed her ER visit and symptoms with her store team leader. Likely needs repeat echo and also stress testing for her i ndigestion Assessment & Plan (02/08/2022 12:00 PM CDT): Currently well compensated on her medical regimen. Follow up with store team leader as they direct. Assessment & Plan (09/25/2021 11:22 AM ESTHETICIAN MAKEUP ARTIST): Well compensated on her current medication regimen. She can discuss with her store team leader whether she may benefit from slight reduction in these medications for possible symptoms of orthostasis/hypotension Assessment & Plan (05/23/2021 9:02 AM CDT): Last echocardiogram showed normal ejection fraction. Continue current medication regimen follow up with store team leader as they direct. Assessment & Plan (09/26/2020 11:44 AM ESTHETICIAN MAKEUP ARTIST): Patient's heart failure symptoms remain limited, estimating her [place] heart Association functional class 1-2. Assessment & Plan (09/03/2020 3:35 PM ESTHETICIAN MAKEUP ARTIST): Appears well compensated on current medical regimen and ejection fraction is improving. Follow-up with store team leader as they direct. Assessment & Plan (07/26/2020 1:12 PM CDT): The patient's proBNP has normalized in LV performance has improved with nuclear gated imaging. We will obtain limited echo for reassessment of LV systolic performance. If this number is now greater than 35% she will be able to discontinue her LifeVest. In the interim we will continue to advance her Entresto and carvedilol dose. Assessment & Plan (07/05/2020 10:36 AM CDT): A plan to advance the patient's Entresto and enroll her in cardiac rehab for her systolic heart failure. We will obtain metabolic panel and proBNP. I will plan to review her care in 2-3 weeks. Type 2 diabetes mellitus with hyperlipidemia 12/2019 Assessment & Plan (11/29/2024 6:48 AM ESTHETICIAN MAKEUP ARTIST): On Metformin, Forteo, and Lantus at home. Patient reports very labile BG at home. Most recent A1c was 7.5. BG difficult to control at OSH and patient non- compliant with CC diet - Hold metformin while inpatient - Triturating basal/ bolus insulin - Carb consistent diet when eating - Endocrine DM consulted for better blood glucose control. Assessment & Plan (05/31/2024 5:41 PM CDT): Denies episodes of hypoglycemia. Continue current medication regimen follow up with her circuit recorder as they direct. Assessment & Plan (02/27/2024 2:54 PM CDT): Denies episodes of hypoglycemia. Continue current medication regimen follow up with her circuit recorder as they direct. Assessment & Plan (01/02/2024 6:27 PM CDT): Reduce Lantus to 30 units and call back if continues to have episodes of hypoglycemia. Continue Humalog 10 units t.i.d. a.c. for now. Follow up with endocrinology as they direct. Assessment & Plan (12/01/2023 7:19 PM ESTHETICIAN MAKEUP ARTIST): Continue current medication regimen follow up with her circuit recorder as they direct Assessment & Plan (11/30/2023 3:05 PM ESTHETICIAN MAKEUP ARTIST): Patient reports taking Lantus 30u and Lispro 10u tid with meals at home. - basal/bolus, titrate as needed > increased lispro to 12 Assessment & Plan (07/03/2023 11:56 AM CDT): Importance of adhering to a diabetic diet and trying to increase exercise discussed. Continue current medication regimen follow up with her circuit recorder as they direct Assessment & Plan (05/04/2023 12:04 PM CDT): Continue current medication regimen follow up with her circuit recorder as they direct. Assessment & Plan (02/06/2023 5:09 PM CDT): Reduce Lantus to 28 units nightly. Continue sliding scale for now. Follow-up with endocrinology as they direct Assessment & Plan (01/20/2023 6:15 AM CDT): Continue her medication regimen follow-up with her circuit recorder as they direct Assessment & Plan (10/11/2022 6:45 PM ESTHETICIAN MAKEUP ARTIST): Restart Humalog 10 units t.i.d. a.c. and continue Levemir 30 units daily. Continue Farxiga and metformin and Trulicity. Check A1c before next visit. Assessment & Plan (06/12/2022 12:50 PM CDT): Agree with restarting Farxiga. Continue metformin and Levemir for now. Fasting blood sugars in the 120s currently. Work on diet exercise weight loss. Add Ozempic next visit if needed. Assessment & Plan (04/23/2022 10:36 AM CDT): Farxiga recently stopped by Cardiology. Repeat A1c before next visit. Consider restarting if needed. Assessment & Plan (02/08/2022 11:59 AM CDT): A1c above goal. Change metformin to 500 mg and take 1500 total in a day. Hopefully increase to 2000 thereafter. She was taking 1000 alternating 2000 but was having problems with diarrhea. Add Ozempic next visit if needed. Would like for her to stay on Farxiga given diabetes and congestive heart failure but if urinary tract infection continued to be a problem may need to discontinue. Assessment & Plan (09/25/2021 11:22 AM ESTHETICIAN MAKEUP ARTIST): Patient admits to eating sugary foods. She must reduce sugars and carbs and increase exercise. Continue efforts at weight loss. Continue her Farxiga, Levemir, metformin. There does not seem to be room for titration of these further. Would recommend Ozempic next visit if needed. She is aware of her rising micro and creatinine ratio and the implications of this. Assessment & Plan (05/23/2021 9:02 AM CDT): A1c above goal but improving. Continue current medication regimen and consider Ozempic next visit if no improvement. Check A1c before next visit. Assessment & Plan (02/09/2021 9:12 AM CDT): Increase Farxiga 10 mg daily. Continue her metformin and insulin. She needs much better diet and exercise and weight loss. Add G LP 1 next visit if no improvement. Assessment & Plan (12/07/2020 3:48 PM ESTHETICIAN MAKEUP ARTIST): Her metformin ER should be 1000 mg take 2 tablets daily not twice daily. Since she is having diarrhea, will reduce to 1000 mg with dinner for 1 or 2 weeks and when symptoms resolve, then increase back to 2 tablets with dinner thereafter. Call back if symptoms not improved. Assessment & Plan (09/26/2020 9:25 AM ESTHETICIAN MAKEUP ARTIST): Stop Januvia in favor of farxiga given her elevated A1c and history of congestive heart failure. Potential side effects of Farxiga discussed and call back if any develop. Drink an extra glass of water daily. Continue metformin 2000 mg extended release daily. Check A1c before next visit. Diet exercise weight loss discussed. Assessment & Plan (09/03/2020 3:35 PM ESTHETICIAN MAKEUP ARTIST): Increase Levemir to 38 units twice daily. Continue Janumet for now. Consider adding either Jardiance or GLP1 next visit. Call back for any signs of hypoglycemia. Intractable chronic migraine without aura and without status migrainosus 02/09/2019 Assessment & Plan (02/09/2019 2:47 PM CDT): 53 year old woman with chronic headaches and neck pain who presented for evaluation. She had scheduled this visit when having frequent headaches, but prior neurologist started Aimovig and has not had headaches in weeks. She is happy with current headache management and wants to know what is causing all this I explained chronic migraines and association with chronic neck pain, particularly given her known degenerative disease and prior cervical fusion, and her fibromyalgia and how this likely all interplays to contribute to her symptoms. Patient reports the following headache risk factors: Analgesic overuse, caffeine overuse, inadequate sleep, poor hydration, lack of cardiovascular exercise, stress/anxiety, family history, although has improved caffeine use and decreased analgesicu use. She continues to get less sleep than idea, not feel well rested and snore 'like an animal.' I reviewed all these factors at length with the patient and suggested treatment plan should include focused effort to reduce these lifestyle contributions to headache risk. I had been under impression she was scheduling to discuss botox vs CGRP but she presents on CGRP inhibitor with benefit and reports she would not be interested in botox injections. Since I do not have anything further to add, I suggested follow-up with current neurologist who is closer to home and encouraged continued efforts to improve lifestyle. I did encourage her to consider counseling for her anxiety/chronic pain given that she acknowledges this contributes to her pain and she has been reluctant to address in past. Call if needed in future. Myopathy 02/26/2014 Overview (01/17/2017): MYALGIA AND MYOSITIS NOS Falls frequently Resolved Problems Problem Noted Date Diagnosed Date Resolved Date Acute on chronic systolic co ngestive heart failure [place] 11/19/2024 11/19/2024 Palliative care by specialist 08/26/2024 09/16/2024 Dyspnea due to congestive he art failure ([facility] 08/26/2024 09/16/2024 Acute on chronic systolic heart failure 08/26/2024 09/16/2024 Chronic systolic heart failure ([facility] 08/23/2024 09/16/2024 Elevated troponin 08/23/2024 09/16/2024 Urinary tract infection with out hematuria, site unspecified 01/05/2024 05/31/2024 Influenza A 10/29/2023 02/27/2024 Respiratory distress 10/29/2023 024 Chest pain 07/15/2023 05/31/2024 Non-ischemic cardiomyopathy ([facility]) 06/13/2023 05/31/2024 Abdominal pain 03/25/2023 05/31/2024 Pneumonia of right lower lob e due to infectious organism 03/24/2023 03/25/2023 Essential (primary) hypertension 11/05/2022 02/07/20 23 02/06/2023 Gastro-esophageal reflux dis ease without esophagitis 11/05/2022 02/06/2023 02/06/2023 Hyperlipidemia, unspecified 11/05/2022 02/06/2023 02/06/2023 Hypothyroidism, unspecified 11/05/2022 02/06/2023 02/06/2023 Obstructive sleep apnea (adult) (pediatric) 11/05/2022 02/06/2023 02/06/2023 Type 2 diabetes mellitus wit h unspecified complications 11/05/2022 02/06/2023 02/06/2023 Mild malnutrition 10/18/2022 03/25/2023 Assessment & Plan (01/20/2023 6:16 AM CDT): Nutrition discussed and offered order packer consultation if needed. Chest pain 06/26/2022 02/06/2023 Overview (06/26/2022): Added automatically from request for surgery [id number] Family history of colon cancer 12/14/2021 02/06/2023 Low serum vitamin B12 12/14/20212021 BRBPR (bright red blood per rectum) 12/14/2021 02/06/2023 Atherosclerotic heart diseas e of north fork coronary artery without angina pectoris 09/03/2020 02/06/2023 Assessment & Plan (01/20/2023 6:16 AM CDT): Continue current medication regimen follow up with store team leader as they direct. Assessment & Plan (09/25/2021 11:23 AM ESTHETICIAN MAKEUP ARTIST): Continue current medication regimen follow up with her store team leader as they direct Assessment & Plan (02/09/2021 9:13 AM CDT): Continue current medication regimen and follow up with store team leader as they direct. Assessment & Plan (09/26/2020 9:26 AM ESTHETICIAN MAKEUP ARTIST): Continue aspirin, atorvastatin, carvedilol, Entresto and follow up with store team leader as they direct. Assessment & Plan (09/03/2020 3:26 PM ESTHETICIAN MAKEUP ARTIST): Continue current medication regimen and follow up with her store team leader as they direct. At low risk for fall 09/03/2020 022 Assessment & Plan (09/03/2020 3:36 PM ESTHETICIAN MAKEUP ARTIST): Timed get up and go test normal. Abnormal TSH 08/31/2020 02/09/2021 Acute respiratory failure wi th hypoxia (CMS/HCC) 06/15/2020 02/09/2021 Pneumonia 06/15/2020 02/09/2021 Hemoglobin A1C greater than 9%, indicating poor diabetic control 02/21/2020 02/09/2021 Type 2 diabetes mellitus wit hout complication, without long-term current use of insulin (CMS/HCC) 12/28/2019 08/31/2020 Encounters Date Type Department Care Team Description 11/25/2024 Telephone [facility] Medical Group Primary Care at [place] [id number] [facility] [address] [place] [address] Juni Hays MD 11/24/2024 Anticoagulation Telephone Call [facility] Medical [facility] Primary Care at [place] [id number] [facility] [address] [place] [address] Sugar Carlisle NP 11/18/2024 7:38 AM ESTHETICIAN MAKEUP ARTIST Anesthesia Event [facility] Operating Room 1 [place] [address] Elba Medina MD PhD 11/18/2024 7:30 AM ESTHETICIAN MAKEUP ARTIST - 11/18/2024 10:10 AM ESTHETICIAN MAKEUP ARTIST Surgery [facility] Operating Room 1 [place] [address] Hesham Madsen MD RIGHT BAROSTIM PLACEMENT 11/18/2024 5:40 AM ESTHETICIAN MAKEUP ARTIST - 11/30/2024 5:05 PM ESTHETICIAN MAKEUP ARTIST Hospital Encounter [address] [address] Hesham Madsen MD Acute on chronic systolic congestive heart failure (CMS/HCC) (HCC) (Primary Dx); Atrial thrombus; Uncontrolled type 2 diabetes mellitus with hyperglycemia (HCC) Discharge Disposition: Discharge to SNF 11/17/2024 Telephone [facility] Endocrinology Metabolism and Lipid [address] [facility] Advanced Medicine 5th [place] [address] [place] [address] Tabatha Berger RN 11/16/2024 Telephone [facility] Surgery [address] [facility] Medical Office Building 1 [address] [place] [address] Mell Jalloh RMA Surgery Confirmation 11/16/2024 Anticoagulation Telephone Call [facility] Medical [facility] Primary Care at [address] [phone] Sugar Carlisle NP 11/12/2024 Orders Only [facility] Oncology [address] [facility] Floor 5 [place] [phone] Candido Lobato MD Neuroendocrine cancer (HCC) (Primary Dx); Secondary neuroendocrine tumors (HCC) 11/11/2024 Telephone [facility] Surgery [address] [facility] Medical Office Building 1 [address] [place] [phone] Mell Jalloh PRAVIN Surgery Confirmation 11/08/2024 1:44 AM ESTHETICIAN MAKEUP ARTIST - 11/17/2024 4:19 PM ESTHETICIAN MAKEUP ARTIST Hospital Encounter [facility] [address] [place] [address] Sanjeev Gonzales MD Singh, Supriya, MD Sargsyan, Narine, MD Chest pain, unspecified type (Primary Dx); NSTEMI (non-ST elevated myocardial infarction) (CMS/HCC) (HCC) Discharge Disposition: Discharge to SNF 11/07/2024 Orders Only [facility] Health Information Management [address] [place] [address] Scanning, Provider 11/05/2024 10:40 AM ESTHETICIAN MAKEUP ARTIST Office Visit [facility] Endocrinology Metabolism and Lipid [address] [place] [address] [address] [place] [address] Coy Patel MD Uncontrolled type 2 diabetes mellitus with hyperglycemia (HCC) (Primary Dx); Osteoporosis with current pathological fracture, unspecified osteoporosis type, sequela; Postmenopausal osteoporosis; At high risk for fracture; Hypothyroidism, unspecified type; Insulin long-term use (CMS/HCC) (HCC) [Z79.4] 11/05/2024 Anticoagulation Telephone Call [facility] Medical Group Primary Care at [facility] [address] [facility] [address] [address] Sugar Carlisle NP 11/04/2024 Orders Only [facility] Health Information Management [address] [place] [address] Scanning, Provider 11/04/2024 Telephone [facility] Medical Group Primary Care at [facility] [address] [facility] [address] [address] Juni Hays MD Test Results 11/01/2024 Telephone [facility] at [address] [place] [phone] Lis Trenton, MA 10/29/2024 Documentation [facility] Medical Group Primary Care at [address] [address] [place] 10/29/2024 Telephone [facility] Medical [facility] Primary Care at [address] [address] Juni Hays MD Medical Question/Miscellaneo us 10/28/2024 Anticoagulation Telephone Call [facility] Medical [facility] Primary Care at [address] [address] Sugar Carlisle, ABDON 10/27/2024 8:10 AM ESTHETICIAN MAKEUP ARTIST - 10/27/2024 11:59 PM ESTHETICIAN MAKEUP ARTIST Hospital Encounter [facility] Radiology 1 [place] [address] Encounter for imaging to screen for metal prior to magnetic resonance imaging (MRI) Discharge Disposition: Discharge to home or self care 10/27/2024 8:10 AM ESTHETICIAN MAKEUP ARTIST - 10/27/2024 11:59 PM ESTHETICIAN MAKEUP ARTIST Hospital Encounter [facility] Radiology 1 [place] [address] Candido Lobato MD Neuroendocrine cancer (HCC); Secondary neuroendocrine tumors (HCC) Discharge Disposition: Discharge to home or self care 10/27/2024 Documentation Cardiology Sue Quinn NP 10/25/2024 3:00 PM ESTHETICIAN MAKEUP ARTIST Office Visit [facility] Surgery [address] [place] [address] Medical Office Building 1 [address], [place] [address] Hesham Madsen MD Nonocclusive coronary atherosclerosis of north fork coronary artery; Dilated cardiomyopathy (CMS/HCC) (HCC); Paroxysmal atrial fibrillation (CMS/HCC) (HCC); Elevated brain natriuretic peptide (BNP) level 10/25/2024 2:00 PM ESTHETICIAN MAKEUP ARTIST - 10/25/2024 11:59 PM ESTHETICIAN MAKEUP ARTIST Hospital Encounter [facility] Vascular Lab [address] [place] [address] Encounter for other preprocedural examination Discharge Disposition: Discharge to home or self care 10/25/2024 Anticoagulation Telephone Call [facility] Medical Group Primary Care at [address] [place] [phone] Sugar Carlisle, ABDON 10/25/2024 Telephone [facility] Medical [facility] Primary Care at [address] [phone] Sugar Carlisle, STOVE TENDER 10/22/2024 Orders Only [facility] Health Information Management [address] [place] [address] Scanning, Provider 10/21/2024 Orders Only [facility] Medical [facility] Primary Care at [address] [phone] Juni Hays MD Anemia, unspecified type (Primary Dx) 10/20/2024 3:00 PM ESTHETICIAN MAKEUP ARTIST Ancillary Procedure [facility] [address] [facility] [address] [place] [address] ICD (implantable cardioverter-defibri llator) in place; Dilated cardiomyopathy (CMS/HCC) (HCC); Paroxysmal A-fib (CMS/HCC) (HCC) 10/19/2024 Telephone [facility] at [address] [place] [phone] Lis Lizett [place] 10/19/2024 Telephone [facility] Medical Group Primary Care at [address] [place] [phone] Juni Hays MD Medical Question/Miscellaneo us 10/15/2024 Telephone [facility] Medical Group Primary Care at [facility] [address] [facility] [address], [place] [phone] Juni Hays MD Medical Question/Miscellaneo us 10/15/2024 Anticoagulation Telephone Call [facility] Medical Group Primary Care at [facility] [address] [place] [address] [address] [phone] Sugar Carlisle, ABDON 10/08/2024 Orders Only [facility] Surgery [address] [facility] Medical Office Building 1 [address], [place] [address] Hesham Madsen MD Encounter for other preprocedural examination (Primary Dx) 10/08/2024 Telephone [facility] Medical Group Primary Care at [address] [phone] Juni Hays MD Test Results 10/08/2024 Anticoagulation Telephone Call [facility] Medical Group Primary Care at [address], [place] [phone] Sugar Carlisle, ABDON 10/07/2024 [facility] [facility] at [address] [phone] Juni Hays MD 10/04/2024 Telephone [facility] at [address] [phone] Rajan Begum MD 10/01/2024 Telephone [facility] Medical [facility] Primary Care at [address], [place] [phone] Juni Hays MD Medical Question/Miscellaneo us 10/01/2024 Anticoagulation Telephone Call [facility] Medical [facility] Primary Care at [address] [phone] Raisa Farnsworth PA 10/01/2024 Anticoagulation Telephone Call [facility] Primary Care at [facility] [address] [facility] [address] [place] [phone] Sugar Carlisle NP 10/01/2024 Telephone [facility] Primary [facility] at [facility] [address] [facility] [address] [phone] Juni Hays MD 09/30/2024 10:30 AM ESTHETICIAN MAKEUP ARTIST Office Visit [facility] at [address] [place] [phone] Rajan Begum MD Dilated cardiomyopathy (CMS/HCC) (HCC) (Primary Dx); Paroxysmal atrial fibrillation (CMS/HCC) (HCC) 09/30/2024 Orders Only [facility] at [address] [phone] Rajan Begum MD Nonocclusive coronary atherosclerosis of north fork coronary artery (Primary Dx); Dilated cardiomyopathy (CMS/HCC) (HCC); Paroxysmal atrial fibrillation (CMS/HCC) (HCC); Drug-induced hypotension; Elevated brain natriuretic peptide (BNP) level 09/30/2024 Telephone [facility] [address] [facility] [address], [address] [place] [phone] Regino Hansen MD 09/23/2024 Anticoagulation Telephone Call [facility] Primary [facility] at [facility] [address] [facility] [address] [phone] Sugar Carlisle NP 09/23/2024 Telephone [facility] Primary Care at [facility] [address] [facility] [address] [phone] Juni Hays MD Test Results 09/22/2024 Orders Only [facility] Primary [facility] at [facility] [address] [facility] [address] [phone] Juni Hays MD Dysuria (Primary Dx) 09/22/2024 Telephone [facility] Primary [facility] at [facility] [address] [facility] [address] [phone] Juni Hays MD Additional Services Or Orders 09/17/2024 Orders Only [facility] [address] [place] [address] Floor 5 [place] [phone] Candido Lobato MD Neuroendocrine cancer (HCC) (Primary Dx) 09/16/2024 3:00 PM ESTHETICIAN MAKEUP ARTIST Telemedicine [facility] Primary [facility] at [facility] [address] [facility] [address] [phone] Juni Hays MD Chronic combined systolic and diastolic congestive heart failure (CMS/HCC) (HCC) (Primary Dx); Essential hypertension; Paroxysmal atrial fibrillation (CMS/HCC) (HCC); Weakness generalized; Atrial thrombus 09/16/2024 Telephone [facility] [address] [place] [address] 5 [place] [phone] Candido Lobato MD 09/16/2024 Telephone [facility] Medical [facility] Primary Care at [facility] [address] [facility] [address], [place] [phone] Juni Hays MD Medical Question/Miscellaneo us 09/08/2024 Telephone [facility] [address] [place] [address] Floor 5 [place] [address] Candido Lobato MD 09/08/2024 Orders Only [facility] [address] [place] [address] Floor 5 [place] [address] Candido Lobato MD 09/06/2024 Telephone [facility] [address] [facility] [address], [address] [place] [address] Regino Hansen MD Rescheduling appt. 08/30/2024 Orders Only [facility] [address] [place] [address] Candido Lobato MD Neuroendocrine cancer (HCC) (Primary Dx) 08/30/2024 Orders Only [facility] [address] [place] [address] Candido Lobato MD Neuroendocrine cancer (HCC) (Primary Dx) 08/23/2024 12:17 AM ESTHETICIAN MAKEUP ARTIST - 08/30/2024 1:05 PM ESTHETICIAN MAKEUP ARTIST [place] [address] Cipriano Lambert MD [place], MD Daryl Womack Cesar, MD Lopez, Yves Akhtar MD Dilated cardiomyopathy (CMS/HCC) (HCC) [I42.0] (Primary Dx); Generalized weakness [R53.1]; Anemia, unspecified type [D64.9]; Paroxysmal atrial fibrillation (CMS/HCC) (HCC) [I48.0]; Chronic pain syndrome [G89.4]; Chronic respiratory failure with hypoxia (CMS/HCC) (HCC) [J96.11]; Palliative care by specialist [Z51.5]; Acute on chronic systolic heart failure (HCC) [I50.23]; Dyspnea due to congestive heart failure (CMS/HCC) (HCC) [I50.9]; Atrial thrombus [I51.3]; Neuroendocrine cancer (HCC) [C7A.8]; Postlaminectomy syndrome; Other chronic pain Discharge Disposition: Discharge to SNF from Last 3 Months Immunizations Immunization Administration Dates Next Due Flucelvax Influenza Quad MDI 08/27/2013 Influenza, Quadrivalent, Tamiko l Culture-based MDCK, Preservative Free, Antibiotic Free, Intramuscular 07/10/2020 Influenza, Quadrivalent, Spl it, Preservative Free, Intramuscular 10/08/2022,08/02/2019,06/20/2018,06/19,07/06/2017,07/20/2015 Influenza, Trivalent, IM (MDV) 09/27/2021,2011 Influenza, Unspecified 09/16/2024(Deferr ed: Patient Refused),11/07/2023(Deferred: Patient Refused),10/11/2022(Deferred: Patient Refused),07/13/2022,05/23/2021(Deferre d: Patient Refused) Pfizer SARS-CoV-2 Monovalent Vaccination (12+ Yrs) PURPLE 09/27/2021,01/15/2021,12/18/2020 Pneumococcal Conjugate Pcv20 05/31/2024(Deferred : Patient Refused) Pneumococcal Polysaccharide PPV23 07/10/2020 Sars-CoV-2, Unspecified 09/27/2021,09/27,01/15/2021,01/15,12/18/2020,12/18/2020 Tdap 09/02/2018 ZOSTER Recombinant 03/23/2019,01/20/2019 Surgical History Surgery Date Site/Laterality Comments DISCECTOMY 10/13/2021 - 10/12/2022 discectomy OTHER SURGICAL HISTORY 10/13/2021 - 10/12/2022 cervical fusion at c56 HYSTERECTOMY 10/13/2006 - 10/12/2007 Hysterectomy THYROIDECTOMY 10/13/1986 - 10/12/1987 Thyroidectomy BACK SURGERY 10/13/2006 - 10/12/2007 Back surgery COLONOSCOPY 06/13/2012 - 07/12/2012 CHOLECYSTECTOMY CARPAL TUNNEL RELEASE Bilateral US GUIDED BIOPSY LIVER 07/25/2022 N/A BREAST BIOPSY benign surgical bx, no scar, unsure which breast, unsure year? KYPHOPLASTY THORACIC 06/09/2023 N/A KYPHOPLASTY THORACIC 08/12/2023 N/A KYPHOPLASTY THORACIC 11/24/2023 N/A HIP SURGERY 06/09/2024 Right ESOPHAGOGASTRODUODENOSCOPY 06/07/2024 with Bx CARDIAC CATHETERIZATION 10/13/2021 - 10/12/2022 Left CARDIAC DEFIBRILLATOR PLACEMENT 10/13/2022 - 10/12/2023 Medical History Medical History Date Comments Malignant neoplasm of thyroid gland (HCC) 1986 Cancer, thyroid Hx Other Medical hepatitis due t o sulfa Hypertension Hypertension Depression Depression Migraine Diabetes (HCC) Hypothyroidism BI (obstructive sleep apnea) us es CPAP at home CHF (congestive heart failure) (CMS/HCC) (HCC) Coronary artery disease Systolic heart failure (CMS/HCC) (HCC) Hyperlipidemia Type 2 diabetes mellitus (HCC) Restless leg syndrome GERD (gastroesophageal reflux disease) Chronic constipation Chronic diarrhea Arthritis Leg pain, bilateral Anemia Anxiety Gastric reflux Motion sickness Irritable bowel syndrome Liver cancer (HCC) Family History Medical History Relation Name Comments COPD Father Delvis Kenyon Cancer Father Delvis Kenyon Emphysema Father Delvis Kenyon Heart disease Father Delvis Kenyon Hyperlipidemia Father Delvis Kenyon Hypertension Father Delvis Kenyon Diabetes Maternal Grandmother Negrita Jha Heart disease Maternal Grandmother Negrita Jha Breast cancer Mother Patricia Kenyon Cancer Mother Patricia Kenyon Hypertension Mother Patricia Kenyon Macular degeneration Mother Patricia Kenyon Stroke Mother Patricia Kenyon Breast cancer Mother's Sister 1 Eleanor Kerman Cancer Mother's Sister 1 Eleanor Kerman Colon cancer Mother's Sister 1 Eleanor Kerman Cancer Mother's Sister 2 Breana Jha Ovarian cancer Mother's Sister 2 Breana Jha Cancer Other 1 Family history of Cancer -; Depression Other 2 Family history of Depression; Hypertension Other 3 Family history of Hypertension; Cancer Paternal Grandmother Isabelle Kenyon Diabetes Paternal Grandmother Isabelle Kenyon Thyroid cancer Neg Hx Relation Name Status Comments Father Delvis Kenyon Alive Maternal Grandmother Negrita Jha Mother Patricia Kenyon Alive Mother's Sister 1 Eleanor Kerman Mother's Sister 2 Breana Jha Other 1 Other 2 Other 3 Paternal Grandmother Isabelle Kenyon Social History Tobacco Use Types Packs/Day Years Used Date Smoking Tobacco: Former Cigarettes 1 5 1 983 - 1987 Smokeless Tobacco: Never Tobacco Cessation:Counseling Given: Not Answered Alcohol Use Standard Drinks/Week Comments No 0 (1 standard drink = 0.6 oz pur e alcohol) [facility] Utilities Answer Date Recorded In the past 12 months has [place], [employer], oil, or water [employer] threatened to shut off services in your home? No 11/22/2024 Social Connection and Isolat ion Panel [NHANES] Answer Date Recorded In a typical week, how many times do you talk on the phone with family, friends, or neighbors? More than three times a week 11/22/2024 How often do you get togethe r with friends or relatives? More than three times a week 11/22/2024 How often do you attend [facility] or congregational services? More than 4 times per year 11/22/2024 Do you belong to any clubs o r organizations such as nondenominational groups, unions, fraternal or athletic groups, or school groups? No 11/22/2024 How often do you attend meet ings of the clubs or organizations you belong to? Never 11/22/2024 Are you , , di vorced, , never , or living with a partner? 11/22/2024 AUDIT-C Answer Date Recorded Q1: How often do you have a drink containing alcohol? Never 08/23/2024 Q2: How many drinks containi ng alcohol do you have on a typical day when you are drinking? Patient does not drink Q3: How often do you have si x or more drinks on one occasion? Never 08/23/2024 Overall Financial Resource Strain (CARDIA) Answe r Date Recorded How hard is it for you to pa y for the very basics like food, housing, medical care, and heating? Not hard at all 11/22/2024 PHQ-2 Answer Date Recorded PHQ-2 Total Score (If total score is 3 or more points, staff should administer the PHQ-9) 1 11/22/2024 Hunger Vital Sign Answer Date Recorded Within the past 12 months, y ou worried that your food would run out before you got the money to buy more. Never true 11/22/19 25 Within the past 12 months, t he food you bought just didn't last and you didn't have money to get more. Never true 11/22/2024 PRAPARE - Transportation Answer Date Re corded In the past 12 months, has l ack of transportation kept you from medical appointments or from getting medications? No 11/13 In the past 12 months, has l ack of transportation kept you from meetings, work, or from getting things needed for daily living? No 11/22/2024 Housing Stability Vital Sign Answer Israel e Recorded In the last 12 months, was t here a time when you were not able to pay the mortgage or rent on time? No 01/06/2024 In the last 12 months, how many places have you lived? 1 01/06/2024 In the last 12 months, was t here a time when you did not have a steady place to sleep or slept in a usp (including now)? No 01/06/2024 Housing Stability Vital Sign Answer Israel e Recorded In the last 12 months, was t here a time when you were not able to pay the mortgage or rent on time? No 11/22/2024 In the past 12 months, how m any times have you moved where you were living? 0 11/22/2024 At any time in the past 12 m [facility], were you homeless or living in a usp (including now)? No 11/22/2024 Personal Safety Answer Date Recorded Have you ever been in or are you currently in a harmful physical or emotional relationship or is someone making you feel afraid or unsafe? Denies 11/18/2024 Education Answer Date Recorded What is the highest level of school you have completed or the highest degree you have received? Some college, no degree 03/25/2023 Comments No Sex and Gender Information Value Date Recorded Sex Assigned at Not on file Legal Sex Female 2:31 PM ESTHETICIAN MAKEUP ARTIST Gender Identity Not on file Sexual Orientation Not on file Occupation Industry Job Start Date Job End Date On Disability Not on file Not on file Not on file Obstetrics History Para Term AB IAB SAB Ectopic Multiple Livin g Live Births 2 2 2 Date Outcome GA Total Labor Labor/2nd/3rd Weight Sex Type Anes PTL Erendira A1 A5 Name Clin Term Term Last Filed Vital Signs Vital Sign Reading Time Taken Comments Blood Pressure 101/75 11/30/2024 12:37 PM ESTHETICIAN MAKEUP ARTIST Pulse 64 11/30/2024 12:37 PM ESTHETICIAN MAKEUP ARTIST Temperature 36.8 C (98.2 F) 11/30/2024 11:25 AM ESTHETICIAN MAKEUP ARTIST Respiratory Rate 16 11/30/2024 12:3 7 PM ESTHETICIAN MAKEUP ARTIST Oxygen Saturation 100% 11/30/2024 12: 37 PM ESTHETICIAN MAKEUP ARTIST Inhaled Oxygen Concentration - - Weight 62.1 kg (136 lb 14.5 oz) 11/19/2024 7:20 PM ESTHETICIAN MAKEUP ARTIST Height 160 cm (5' 2.99 ) 11/19/2024 7:20 PM ESTHETICIAN MAKEUP ARTIST Body Mass Index 24.26 11/19/2024 7:20 PM ESTHETICIAN MAKEUP ARTIST Plan of Treatment Health Maintenance Due Date Last Done Comments Pneumococcal vaccine <65 (2 of 2 - PCV) 07/10/2021 07/10/2020 Foot Exam 02/08/2023 02/08/2022, 09/12, 05/23/2021, Additional history exists Albumin Creatinine Ratio, Urine 10/11/2023 10/11/2022, 06/05/2022, 01/12/2022, Additional history exists Breast Cancer Screening-Mammogram 04/01/2024 04/01/2023, 04/01/2023, 02/14/2022, Additional history exists Covid-19 Vaccine ( season) 2024 09/27/2021, 09/27/2021, 09/27/2021, Additional history exists Dilated Eye Exam 01/25/2025 01/26/2024, 06/2024, 06/05/2021, Additional history exists Influenza Vaccine (#1) 2025 , 07/13/2022, 09/27/2021, Additional history exists Postponed from 06/13/2024 (Patient declined, but will receive in the future) Hemoglobin A1C 05/19/2025 11/19/2024, 08/13, 06/07/2024, Additional history exists Regular Well Visit/Exam 18-64 05/31/2025 05/31/2024, 10/11/2022, 09/25/2021, Additional history exists Depression Screening 10/25/2025 10/25/2024, 08/22/2024, 08/22/2024, Additional history exists Lipid Panel 11/08/2025 11/08/2024, 05/14, 10/11/2022, Additional history exists eGFR 11/30/2025 11/30/2024, 11/13, 11/28/2024, Additional history exists Colon Cancer Screening-Colonoscopy 02/05/2027 02/05/2022, 07/08/2012 DTaP/Tdap/Td Vaccine (2 - Td or Tdap) 09/02/2028 09/02/2018 Zoster Vaccine Completed 03/23/2019, 01/20/2019 Colon Cancer Screening-CT Colonography Discontinued 02/05/2022, 07/08/2012 Colon Cancer Screening-DNA Stool Discontinued 02/05/2022, 07/08/2012 Colon Cancer Screening-FIT Discontinued 02/05/2022, Colon Cancer Screening-Sigmoidoscopy Discontinued 02/05/2022, 07/08/2012 Hepatitis B Screening Completed 06/07/2024 Hepatitis C Screening Completed 06/07/2024 Goals Goal Patient Goal Type Associated Problems [...] take, when to call CM or provider. CCM Chronic Pain Care Plan Chronic Care Management Yes Arelis Parkinson RN Note: Problem: Chronic Pain Goals: 1. Minimize further functional decline 2. Maximize quality of life 3. Control pain Strategies: - Activity/exercise program recommendation - Conservative stepwise pain medicine strategy with multi-disciplinary approach - Recommend healthy lifestyle strategies and compensatory methods as needed Reduce the likelihood of falling Lifestyle Yes Sofi Polanco, RN Note: Below are four things you can [...] stairs Contact your local community or senior center for information on exercise, fall prevention programs, or options for improving home safety. Medical Devices Implanted Type Area Audio/Video Engineer Device Identifier Shelf Expiration Date Model / Serial / Lot Cvrx Inc Barostim [place] 40cm 1036 [id number] - [id number] - [id number] Implanted:Qty: 1 on 11/18/2024 by Hesham Madsen MD at [facility] Lead Right: Chest Cvrx Inc 1036 01/20/2025 [id number] / [id number] / [id number] Description:Part of a bundle d Kit. Marked NON chargeable. This is a kit the goes with item [id number] that is documented on the case [employer] Absiai Angio-Seal Evolution 6fr Vascular Closure [id number] - [id number] Implanted:Qty: 1 on 07/02/2022 [facility] 09/11/2022 [id number] / / [id number] Depuy Synthes Spine Expedium 6mm 45mm 1 Innie Polyaxial Spine Screw Bone Titanium [id number] - [id number] Implanted:Qty: 2 on 08/26/2022 by Gunnar Richardson MD at [facility] N/A: Spine Lumbar Depuy Synthes Spine [id number] / / Depuy Synthes Spine Expedium 6.5mm 45mm Polyaxial Spine Screw Bone Titanium 5.5mm Zechariah [id number] - [id number] Implanted:Qty: 3 on 08/26/2022 by Gunnar Richardson MD at [facility] N/A: Spine Lumbar Depuy Synthes Spine [id number] / / Depuy Synthes Spine Expedium 6.5mm 40mm Polyaxial Spine Screw Bone Titanium 5.5mm Zechariah [id number] - [id number] Implanted:Qty: 1 on 08/26/2022 by Gunnar Richardson MD at [facility] N/A: Spine Lumbar Depuy Synthes Spine [id number] / / Depuy Synthes Spine Expedium 7mm 35mm 1 Innie Polyaxial Spine Screw Bone Titanium [id number] - [id number] Implanted:Qty: 1 on 08/26/2022 by Gunnar Richardson MD at [facility] N/A: Spine Lumbar Depuy Synthes Spine [id number] / / Depuy Synthes Spine Expedium 7mm 35mm 1 Innie Polyaxial Spine Screw Bone Titanium [id number] - [id number] Implanted:Qty: 1 on 08/26/2022 by Gunnar Richardson MD at [facility] N/A: Spine Lumbar Depuy Synthes Spine [id number] / / Depuy Synthes Spine Screw Bone Viper Titanium L35 Mm Od7 Mm Spine Pedicle Cortical Fix Angle Polyaxial Cannulated Fenestrate Nonsterile Mis 5.5 Mm Zechariah [id number] - [id number] Implanted:Qty: 1 on 08/26/2022 by Gnunar Richardson MD at [facility] N/A: Spine Lumbar Depuy Synthes Spine [id number] / / Depuy Synthes Spine Screw Spinal Pedicle Polyaxial Full Thread Solid Expedium Viper Plus T27 [id number] Titanium [id number] - [id number] Implanted:Qty: 1 on 08/26/2022 by Gunnar Richardson MD at [facility] N/A: Spine Lumbar Depuy Synthes Spine [id number] / / Depuy Synthes Spine Expedium 1 Inner Monoaxial Spine Screw Set Titanium [id number] - [id number] Implanted:Qty: 18 on 08/26/2022 by Gunnar Richardson MD at [facility] N/A: Spine Lumbar Depuy Synthes Spine [id number] / / Depuy Synthes Spine [place] 5.5mm 40mm Transverse Body Spine Connector Zechariah Titanium [id number] - [id number] Implanted:Qty: 1 on 08/26/2022 by Gunnar Richardson MD at [facility] N/A: Spine Lumbar Depuy Synthes Spine [id number] / / Depuy Synthes Spine Expedium 5.5mm 480mm Zechariah Spinal Titanium Nonsterile [id number] - [id number] Implanted:Qty: 2 on 08/26/2022 by Gunnar Richardson MD at [facility] N/A: Spine Lumbar Depuy Synthes Spine [id number] / / Si-Bone Kit Spinal Sacroiliac Fusion Ifuse [place]rock [place] 10.5x80mm [id number] - [id number] Implanted:Qty: 1 on 08/26/2022 by Gunnar Richardson MD at [facility] N/A: Spine Lumbar Si-Bone [id number] 06/26/2027 [id number] / / [id number] Depuy Synthes Spine Expedium 6.5mm 30mm Polyaxial Spine Screw Bone Titanium 5.5mm Zecharaih [id number] - [id number] Implanted:Qty: 1 on 08/26/2022 by Gunnar Richardson MD at [facility] N/A: Spine Lumbar Depuy Synthes Spine [id number] / / Medtronic Inc Infuse 18mm Sponge [id number] - [id number] Implanted:Qty: 1 on 08/26/2022 by Gunnar Richardson MD at [facility] N/A: Spine Lumbar Medtronic Inc [id number] 09/11/2023 [id number] / / [id number] Medtronic Inc Infuse 18mm Sponge [id number] - [id number] Implanted:Qty: 1 on 08/26/2022 by Gunnar Richardson MD at [facility] N/A: Spine Lumbar Medtronic Inc [id number] 09/11/2023 [id number] / / [id number] Allosource Crushed Chip Frozen Graft 90ml Bone Cancellous [id number] - [id number] Implanted:Qty: 1 on 08/26/2022 by Gunnar Richardson MD at [facility] N/A: Spine Lumbar Allosource 04/16/2027 [id number] / / [id number] Allosource Crushed Chip Frozen Graft 30ml Bone Cancellous [id number] - [id number] Implanted:Qty: 1 on 08/26/2022 by Gunnar Richardson MD at [facility] N/A: Spine Lumbar Allosource 06/15/2027 [id number] / / [id number] [employer] Putty Bone 1-2mm Granules 10cc Magnetos 703-038-Us - [id number] Implanted:Qty: 1 on 08/26/2022 by Gunnar Richardson MD at [facility] N/A: Spine Lumbar New Age [facility] [id number] 10/13/2024 [id number] / / [id number] Depuy Synthes Spine [place] Expedium 2 Spine Wire Fixation Cocr Titanium [id number] - [id number] Implanted:Qty: 2 on 08/26/2022 by Gunnar Richardson MD at [facility] N/A: Spine Lumbar Depuy Synthes Spine [id number] / / Depuy Synthes Spine Expedium 6mm 40mm 1 Innie Polyaxial Spine Screw Bone Titanium [id number] - [id number] Implanted:Qty: 6 on 08/26/2022 by Gunnar Richardson MD at [facility] N/A: Spine Lumbar Depuy Synthes Spine [id number] / / Biotronik Inc Lead Defibrillator Plexa Promri L65cm L15cm Cardiac Df4 Sterile Latex Free Disposable S Dx 621023 - [id number] - [id number] Implanted:Qty: 1 on 07/15/2023 by Rajan Begum MD at [facility] Left: Chest Biotronik Inc 05/12/2025 [id number] / [id number] / Biotronik Inc Defibrillator Cardiac Acticor 7 Vr-T Dx 879702 - [id number] - [id number] Implanted:Qty: 1 on 07/15/2023 by Rajan Begum MD at [facility] Left: Chest Biotronik Inc 04/11/2025 [id number] / [id number] / Medtronic Inc Tyrx 3.35x3in Large Envelope Absorbable Polyarylate Minocycline [id number] - [id number] Implanted:Qty: 1 on 07/15/2023 by Rajan Begum MD at [facility] Left: Chest Medtronic Inc 02/13/2024 [id number] / / [id number] Monte & Nephew/Richco/Orth o Screw Bone Cannulated St Partial Thread 6.5x75mm Ss [id number] - [id number] Implanted:Qty: 1 on 06/09/2024 by Jaspreet Greer MD at [facility] Right: Hip Monte & Nephew/Richco/ Ortho [id number] / / Monte & Nephew/Richco/Orth o 8mm 90mm 24mm Cannulated Long Bone Small Bone Screw Bone [id number] - [id number] Implanted:Qty: 1 on 06/09/2024 by Jaspreet Greer MD at [facility] Right: Hip Monte [employer] Nephew/Richco/ Ortho [id number] / / Monte & Nephew/Richco/Orth o 8mm 85mm 22mm Cannulated Long Bone Small Bone Screw Bone [id number] - [id number] Implanted:Qty: 1 on 06/09/2024 by Jaspreet Greer MD at [facility] Right: Hip Monte & Nephew/Richco/ Ortho [id number] / / Cvrx Inc System Generator Neurostimulator Deep Brain Stim Permanent Lead Barostim 627984-667 - [id number] - [id number] Implanted:Qty: 1 on 11/18/2024 by Hesham Madsen MD at [facility] Right: Chest Cvrx Inc 12/09/2024 [id number] / [id number] / Description:Barostim generat or with leads. P/h-[id number] sn [id number] model 2104 Cvrx Inc Generator Neurostimulator Deep Brain Stim Permanent Lead No Hardware Barostim 421730-350 - [id number] - [id number] Implanted:Qty: 1 on 11/18/2024 by Hesham Madsen MD at [facility] Right: Chest Cvrx Inc 12/09/2024 582694-574 / [id number] / Description:Marked NON charg eable. This is a kit the goes with item [id number] that is documented on the case Procedures Procedure Name Priority Date/Time Associated Diagnosis Comments POCT GLUCOSE DEVICE Routine 11/30/2024 11:42 AM ESTHETICIAN MAKEUP ARTIST POCT GLUCOSE DEVICE Routine 11/30/2024 7 :37 AM ESTHETICIAN MAKEUP ARTIST POCT GLUCOSE DEVICE Routine 11/30/2024 2 :12 AM ESTHETICIAN MAKEUP ARTIST EGFR STAT 11/30/2024 12:02 AM ESTHETICIAN MAKEUP ARTIST BASIC METABOLIC PANEL STAT 11/30/2024 12:02 AM ESTHETICIAN MAKEUP ARTIST POCT GLUCOSE DEVICE Routine 11/29/2024 9 :58 PM ESTHETICIAN MAKEUP ARTIST EGFR Routine 11/29/2024 8:56 PM ESTHETICIAN MAKEUP ARTIST CRITICAL RESULT CALLBACK CHEMISTRY Routine 11/29/2024 8:56 PM ESTHETICIAN MAKEUP ARTIST DIFFERENTIAL AUTO Routine 11/29/2024 8:5 6 PM ESTHETICIAN MAKEUP ARTIST PROTIME-INR Routine 11/29/2024 8:56 PM ESTHETICIAN MAKEUP ARTIST CBC WITH AUTO DIFFERENTIAL Routine 11/29/2024 8:56 PM ESTHETICIAN MAKEUP ARTIST BASIC METABOLIC PANEL Routine 11/29/2024 8:56 PM ESTHETICIAN MAKEUP ARTIST POCT GLUCOSE DEVICE Routine 11/29/2024 7 :29 PM ESTHETICIAN MAKEUP ARTIST POCT GLUCOSE DEVICE Routine 11/29/2024 5 :12 PM ESTHETICIAN MAKEUP ARTIST POCT GLUCOSE DEVICE Routine 11/29/2024 11:17 AM ESTHETICIAN MAKEUP ARTIST POCT GLUCOSE DEVICE Routine 11/29/2024 7 :42 AM ESTHETICIAN MAKEUP ARTIST POCT GLUCOSE DEVICE Routine 11/29/2024 2 :07 AM ESTHETICIAN MAKEUP ARTIST POCT GLUCOSE DEVICE Routine 11/29/2024 12:02 AM ESTHETICIAN MAKEUP ARTIST EGFR Routine 11/28/2024 9:54 PM ESTHETICIAN MAKEUP ARTIST DIFFERENTIAL AUTO Routine 11/28/2024 9:5 4 PM ESTHETICIAN MAKEUP ARTIST PROTIME-INR Routine 11/28/2024 9:54 PM ESTHETICIAN MAKEUP ARTIST CBC WITH AUTO DIFFERENTIAL Routine 11/28/2024 9:54 PM ESTHETICIAN MAKEUP ARTIST BASIC METABOLIC PANEL Routine 11/28/2024 9:54 PM ESTHETICIAN MAKEUP ARTIST POCT GLUCOSE DEVICE Routine 11/28/2024 7 :26 PM ESTHETICIAN MAKEUP ARTIST POCT GLUCOSE DEVICE Routine 11/28/2024 6 :16 PM ESTHETICIAN MAKEUP ARTIST POCT GLUCOSE DEVICE Routine 11/28/2024 5 :01 PM ESTHETICIAN MAKEUP ARTIST POCT GLUCOSE DEVICE Routine 11/28/2024 11:19 AM ESTHETICIAN MAKEUP ARTIST POCT GLUCOSE DEVICE Routine 11/28/2024 7 :20 AM ESTHETICIAN MAKEUP ARTIST POCT GLUCOSE DEVICE Routine 11/28/2024 2 :02 AM ESTHETICIAN MAKEUP ARTIST POCT GLUCOSE DEVICE Routine 11/27/2024 10:58 PM ESTHETICIAN MAKEUP ARTIST EGFR Routine 11/27/2024 9:47 PM ESTHETICIAN MAKEUP ARTIST DIFFERENTIAL AUTO Routine 11/27/2024 9:4 7 PM ESTHETICIAN MAKEUP ARTIST PROTIME-INR Routine 11/27/2024 9:47 PM ESTHETICIAN MAKEUP ARTIST CBC WITH AUTO DIFFERENTIAL Routine 11/27/2024 9:47 PM ESTHETICIAN MAKEUP ARTIST BASIC METABOLIC PANEL Routine 11/27/2024 9:47 PM ESTHETICIAN MAKEUP ARTIST POCT GLUCOSE DEVICE Routine 11/27/2024 8 :31 PM ESTHETICIAN MAKEUP ARTIST POCT GLUCOSE DEVICE Routine 11/27/2024 4 :59 PM ESTHETICIAN MAKEUP ARTIST POCT GLUCOSE DEVICE Routine 11/27/2024 11:42 AM ESTHETICIAN MAKEUP ARTIST POCT GLUCOSE DEVICE Routine 11/27/2024 7 :21 AM ESTHETICIAN MAKEUP ARTIST POCT GLUCOSE DEVICE Routine 11/27/2024 4 :10 AM ESTHETICIAN MAKEUP ARTIST POCT GLUCOSE DEVICE Routine 11/26/2024 11:38 PM ESTHETICIAN MAKEUP ARTIST EGFR Routine 11/26/2024 9:00 PM ESTHETICIAN MAKEUP ARTIST DIFFERENTIAL AUTO Routine 11/26/2024 9:0 0 PM ESTHETICIAN MAKEUP ARTIST PROTIME-INR Routine 11/26/2024 9:00 PM ESTHETICIAN MAKEUP ARTIST CBC WITH AUTO DIFFERENTIAL Routine 11/26/2024 9:00 PM ESTHETICIAN MAKEUP ARTIST BASIC METABOLIC PANEL Routine 11/26/2024 9:00 PM ESTHETICIAN MAKEUP ARTIST POCT GLUCOSE DEVICE Routine 11/26/2024 8 :11 PM ESTHETICIAN MAKEUP ARTIST POCT GLUCOSE DEVICE Routine 11/26/2024 4 :58 PM ESTHETICIAN MAKEUP ARTIST POCT GLUCOSE DEVICE Routine 11/26/2024 11:50 AM ESTHETICIAN MAKEUP ARTIST POCT GLUCOSE DEVICE Routine 11/26/2024 9 :56 AM ESTHETICIAN MAKEUP ARTIST POCT GLUCOSE DEVICE Routine 11/26/2024 8 :08 AM ESTHETICIAN MAKEUP ARTIST POCT GLUCOSE DEVICE Routine 11/26/2024 4 :08 AM ESTHETICIAN MAKEUP ARTIST POCT GLUCOSE DEVICE Routine 11/26/2024 12:28 AM ESTHETICIAN MAKEUP ARTIST URINALYSIS, MICROSCOPIC ONLY Routine 11/26/2024 12:16 AM ESTHETICIAN MAKEUP ARTIST URINALYSIS AND REFLEX TO MICROSCOPIC AND CULTURE Routine 11/26/2024 12:16 AM ESTHETICIAN MAKEUP ARTIST EGFR Routine 11/26/2024 12:10 AM ESTHETICIAN MAKEUP ARTIST DIFFERENTIAL AUTO Routine 11/26/2024 12:10 AM ESTHETICIAN MAKEUP ARTIST PROTIME-INR Routine 11/26/2024 12:10 AM ESTHETICIAN MAKEUP ARTIST CBC WITH AUTO DIFFERENTIAL Routine 11/26/2024 12:10 AM ESTHETICIAN MAKEUP ARTIST BASIC METABOLIC PANEL Routine 11/26/2024 12:10 AM ESTHETICIAN MAKEUP ARTIST POCT GLUCOSE DEVICE Routine 11/25/2024 10:40 PM ESTHETICIAN MAKEUP ARTIST POCT GLUCOSE DEVICE Routine 11/25/2024 9 :37 PM ESTHETICIAN MAKEUP ARTIST POCT GLUCOSE DEVICE Routine 11/25/2024 8 :11 PM ESTHETICIAN MAKEUP ARTIST POCT GLUCOSE DEVICE Routine 11/25/2024 5 :09 PM ESTHETICIAN MAKEUP ARTIST POCT GLUCOSE DEVICE Routine 11/25/2024 2 :32 PM ESTHETICIAN MAKEUP ARTIST POCT GLUCOSE DEVICE Routine 11/25/2024 11:40 AM ESTHETICIAN MAKEUP ARTIST XR CHEST 1 VIEW ED Urgent/IP Urgent 11/25/2024 9:35 AM ESTHETICIAN MAKEUP ARTIST POCT GLUCOSE DEVICE Routine 11/25/2024 7 :51 AM ESTHETICIAN MAKEUP ARTIST EGFR Routine 11/24/2024 10:08 PM ESTHETICIAN MAKEUP ARTIST DIFFERENTIAL AUTO Routine 11/24/2024 10:08 PM ESTHETICIAN MAKEUP ARTIST PROTIME-INR Routine 11/24/2024 10:08 PM ESTHETICIAN MAKEUP ARTIST CBC WITH AUTO DIFFERENTIAL Routine 11/24/2024 10:08 PM ESTHETICIAN MAKEUP ARTIST BASIC METABOLIC PANEL Routine 11/24/2024 10:08 PM ESTHETICIAN MAKEUP ARTIST POCT GLUCOSE DEVICE Routine 11/24/2024 7 :52 PM ESTHETICIAN MAKEUP ARTIST POCT GLUCOSE DEVICE Routine 11/24/2024 5 :06 PM ESTHETICIAN MAKEUP ARTIST POCT GLUCOSE DEVICE Routine 11/24/2024 4 :01 PM ESTHETICIAN MAKEUP ARTIST POCT GLUCOSE DEVICE Routine 11/24/2024 3 :01 PM ESTHETICIAN MAKEUP ARTIST POCT GLUCOSE DEVICE Routine 11/24/2024 1 :57 PM ESTHETICIAN MAKEUP ARTIST POCT GLUCOSE DEVICE Routine 11/24/2024 12:16 PM ESTHETICIAN MAKEUP ARTIST POCT GLUCOSE DEVICE Routine 11/24/2024 7 :25 AM ESTHETICIAN MAKEUP ARTIST EGFR Routine 11/23/2024 10:31 PM ESTHETICIAN MAKEUP ARTIST DIFFERENTIAL AUTO Routine 11/23/2024 10:31 PM ESTHETICIAN MAKEUP ARTIST PROTIME-INR Routine 11/23/2024 10:31 PM ESTHETICIAN MAKEUP ARTIST CBC WITH AUTO DIFFERENTIAL Routine 11/23/2024 10:31 PM ESTHETICIAN MAKEUP ARTIST BASIC METABOLIC PANEL Routine 11/23/2024 10:31 PM ESTHETICIAN MAKEUP ARTIST POCT GLUCOSE DEVICE Routine 11/23/2024 10:13 PM ESTHETICIAN MAKEUP ARTIST POCT GLUCOSE DEVICE Routine 11/23/2024 8 :11 PM ESTHETICIAN MAKEUP ARTIST POCT GLUCOSE DEVICE Routine 11/23/2024 6 :23 PM ESTHETICIAN MAKEUP ARTIST POCT GLUCOSE DEVICE Routine 11/23/2024 4 :35 PM ESTHETICIAN MAKEUP ARTIST POCT GLUCOSE DEVICE Routine 11/23/2024 4 :34 PM ESTHETICIAN MAKEUP ARTIST POCT GLUCOSE DEVICE Routine 11/23/2024 12:28 PM ESTHETICIAN MAKEUP ARTIST POCT GLUCOSE DEVICE Routine 11/23/2024 8 :07 AM ESTHETICIAN MAKEUP ARTIST POCT GLUCOSE DEVICE Routine 11/22/2024 8 :03 PM ESTHETICIAN MAKEUP ARTIST DIFFERENTIAL AUTO Routine 11/22/2024 7:0 5 PM ESTHETICIAN MAKEUP ARTIST CBC WITH AUTO DIFFERENTIAL Routine 11/22/2024 7:05 PM ESTHETICIAN MAKEUP ARTIST BASIC METABOLIC PANEL Timed 11/22/2024 7:04 PM ESTHETICIAN MAKEUP ARTIST EGFR Timed 11/22/2024 7:04 PM ESTHETICIAN MAKEUP ARTIST APTT Routine 11/22/2024 7:04 PM ESTHETICIAN MAKEUP ARTIST TROPONIN I HIGH-SENSITIVITY Timed 11/22/2024 7:04 PM ESTHETICIAN MAKEUP ARTIST PHOSPHORUS Timed 11/22/2024 7:04 PM ESTHETICIAN MAKEUP ARTIST MAGNESIUM Timed 11/22/2024 7:04 PM ESTHETICIAN MAKEUP ARTIST PROTIME-INR Routine 11/22/2024 7:04 PM ESTHETICIAN MAKEUP ARTIST POCT GLUCOSE DEVICE Routine 11/22/2024 6 :56 PM ESTHETICIAN MAKEUP ARTIST POCT GLUCOSE DEVICE Routine 11/22/2024 5 :27 PM ESTHETICIAN MAKEUP ARTIST XR CHEST 1 VIEW ED Urgent/IP Urgent 11/22/2024 3:32 PM ESTHETICIAN MAKEUP ARTIST POCT GLUCOSE DEVICE Routine 11/22/2024 2 :42 PM ESTHETICIAN MAKEUP ARTIST POCT GLUCOSE DEVICE Routine 11/22/2024 11:57 AM ESTHETICIAN MAKEUP ARTIST POCT GLUCOSE DEVICE Routine 11/22/2024 8 :10 AM ESTHETICIAN MAKEUP ARTIST APTT STAT 11/22/2024 12:22 AM ESTHETICIAN MAKEUP ARTIST CRITICAL RESULT CALLBACK HEMATOLOGY STAT 2024 10:06 PM ESTHETICIAN MAKEUP ARTIST EGFR Routine 2024 10:06 PM ESTHETICIAN MAKEUP ARTIST DIFFERENTIAL AUTO Routine 2024 10:06 PM ESTHETICIAN MAKEUP ARTIST APTT STAT 2024 10:06 PM ESTHETICIAN MAKEUP ARTIST PROTIME-INR Routine 2024 10:06 PM ESTHETICIAN MAKEUP ARTIST CBC WITH AUTO DIFFERENTIAL Routine 2024 10:06 PM ESTHETICIAN MAKEUP ARTIST BASIC METABOLIC PANEL Routine 2024 10:06 PM ESTHETICIAN MAKEUP ARTIST POCT GLUCOSE DEVICE Routine 2024 7 :21 PM ESTHETICIAN MAKEUP ARTIST POCT GLUCOSE DEVICE Routine 2024 4 :43 PM ESTHETICIAN MAKEUP ARTIST POCT GLUCOSE DEVICE Routine 2024 12:22 PM ESTHETICIAN MAKEUP ARTIST POCT GLUCOSE DEVICE Routine 2024 8 :06 AM ESTHETICIAN MAKEUP ARTIST POCT GLUCOSE DEVICE Routine 2024 3 :35 AM ESTHETICIAN MAKEUP ARTIST POCT GLUCOSE DEVICE Routine 2024 12:12 AM ESTHETICIAN MAKEUP ARTIST EGFR Routine 11/20/2024 10:13 PM ESTHETICIAN MAKEUP ARTIST DIFFERENTIAL AUTO Routine 11/20/2024 10:13 PM ESTHETICIAN MAKEUP ARTIST APTT STAT 11/20/2024 10:13 PM ESTHETICIAN MAKEUP ARTIST PROTIME-INR Routine 11/20/2024 10:13 PM ESTHETICIAN MAKEUP ARTIST CBC WITH AUTO DIFFERENTIAL Routine 11/20/2024 10:13 PM ESTHETICIAN MAKEUP ARTIST BASIC METABOLIC PANEL Routine 11/20/2024 10:13 PM ESTHETICIAN MAKEUP ARTIST TROPONIN I HIGH-SENSITIVITY 6-HOUR Timed 11/20/2024 10:13 PM ESTHETICIAN MAKEUP ARTIST POCT GLUCOSE DEVICE Routine 11/20/2024 8 :01 PM ESTHETICIAN MAKEUP ARTIST POCT GLUCOSE DEVICE Routine 11/20/2024 4 :36 PM ESTHETICIAN MAKEUP ARTIST APTT STAT 11/20/2024 2:58 PM ESTHETICIAN MAKEUP ARTIST POCT GLUCOSE DEVICE Routine 11/20/2024 11:17 AM ESTHETICIAN MAKEUP ARTIST PROTIME-INR STAT 11/20/2024 8:28 AM ESTHETICIAN MAKEUP ARTIST APTT STAT 11/20/2024 8:28 AM ESTHETICIAN MAKEUP ARTIST POCT GLUCOSE DEVICE Routine 11/20/2024 7 :44 AM ESTHETICIAN MAKEUP ARTIST CBC WITHOUT DIFFERENTIAL Timed 11/20/2024 2:16 AM ESTHETICIAN MAKEUP ARTIST TROPONIN I HIGH-SENSITIVITY 4-HOUR Timed 11/20/2024 2:16 AM ESTHETICIAN MAKEUP ARTIST CRITICAL RESULT CALLBACK CARDIO CHEM Timed 11/20/2024 12:24 AM ESTHETICIAN MAKEUP ARTIST EGFR Routine 11/20/2024 12:24 AM ESTHETICIAN MAKEUP ARTIST TROPONIN I HIGH-SENSITIVITY 2-HOUR Timed 11/20/2024 12:24 AM ESTHETICIAN MAKEUP ARTIST APTT STAT 11/20/2024 12:24 AM ESTHETICIAN MAKEUP ARTIST BASIC METABOLIC PANEL Routine 11/20/2024 12:24 AM ESTHETICIAN MAKEUP ARTIST POCT GLUCOSE DEVICE Routine 11/19/2024 11:01 PM ESTHETICIAN MAKEUP ARTIST TROPONIN I HIGH-SENSITIVITY SERIES (BASELINE, 2HR, 4HR, 6HR) Timed 11/19/2024 10:15 PM ESTHETICIAN MAKEUP ARTIST ECG 12-LEAD Routine 11/19/2024 10:11 PM ESTHETICIAN MAKEUP ARTIST POCT GLUCOSE DEVICE Routine 11/19/2024 7 :20 PM ESTHETICIAN MAKEUP ARTIST POCT GLUCOSE DEVICE Routine 11/19/2024 4 :39 PM ESTHETICIAN MAKEUP ARTIST APTT STAT 11/19/2024 3:39 PM ESTHETICIAN MAKEUP ARTIST POCT GLUCOSE DEVICE Routine 11/19/2024 12:05 PM ESTHETICIAN MAKEUP ARTIST POCT GLUCOSE DEVICE Routine 11/19/2024 12:03 PM ESTHETICIAN MAKEUP ARTIST HEMOGLOBIN A1C Routine 11/19/2024 8:52 AM ESTHETICIAN MAKEUP ARTIST EGFR Routine 11/19/2024 8:52 AM ESTHETICIAN MAKEUP ARTIST DIFFERENTIAL AUTO Routine 11/19/2024 8:5 2 AM ESTHETICIAN MAKEUP ARTIST APTT STAT 11/19/2024 8:52 AM ESTHETICIAN MAKEUP ARTIST PROTIME-INR STAT 11/19/2024 8:52 AM ESTHETICIAN MAKEUP ARTIST CBC WITH AUTO DIFFERENTIAL Routine 11/19/2024 8:52 AM ESTHETICIAN MAKEUP ARTIST BASIC METABOLIC PANEL Routine 11/19/2024 8:52 AM ESTHETICIAN MAKEUP ARTIST POCT GLUCOSE DEVICE Routine 11/19/2024 7 :46 AM ESTHETICIAN MAKEUP ARTIST EGFR Routine 11/19/2024 4:37 AM ESTHETICIAN MAKEUP ARTIST CBC WITHOUT DIFFERENTIAL Timed 11/19/2024 4:37 AM ESTHETICIAN MAKEUP ARTIST BASIC METABOLIC PANEL Routine 11/19/2024 4:37 AM ESTHETICIAN MAKEUP ARTIST POCT GLUCOSE DEVICE Routine 11/19/2024 2 :58 AM ESTHETICIAN MAKEUP ARTIST POCT GLUCOSE DEVICE Routine 11/18/2024 10:55 PM ESTHETICIAN MAKEUP ARTIST POCT GLUCOSE DEVICE Routine 11/18/2024 7 :25 PM ESTHETICIAN MAKEUP ARTIST DIFFERENTIAL AUTO Routine 11/18/2024 5:5 3 PM ESTHETICIAN MAKEUP ARTIST CBC WITH AUTO DIFFERENTIAL Routine 11/18/2024 5:53 PM ESTHETICIAN MAKEUP ARTIST POCT GLUCOSE DEVICE Routine 11/18/2024 4 :41 PM ESTHETICIAN MAKEUP ARTIST POCT GLUCOSE DEVICE Routine 11/18/2024 2 :03 PM ESTHETICIAN MAKEUP ARTIST POCT GLUCOSE DEVICE Routine 11/18/2024 1 :15 PM ESTHETICIAN MAKEUP ARTIST TRANSFUSE RED BLOOD CELLS Timed 11/18/2024 12:39 PM ESTHETICIAN MAKEUP ARTIST POCT GLUCOSE DEVICE Routine 11/18/2024 12:02 PM ESTHETICIAN MAKEUP ARTIST POCT GLUCOSE DEVICE Routine 11/18/2024 11:13 AM ESTHETICIAN MAKEUP ARTIST TYPE AND SCREEN Timed 11/18/2024 10:26 AM ESTHETICIAN MAKEUP ARTIST POCT GLUCOSE DEVICE Routine 11/18/2024 10:13 AM ESTHETICIAN MAKEUP ARTIST PREPARE RBC Timed 11/18/2024 9:58 AM ESTHETICIAN MAKEUP ARTIST POC BLOOD GAS AND CHEMISTRIES, ARTERIAL Routine 11/18/2024 9:39 AM ESTHETICIAN MAKEUP ARTIST MT AN PROCEDURE PLACEHOLDER Routine 11/18/2024 9:01 AM ESTHETICIAN MAKEUP ARTIST MT AN PROCEDURE PLACEHOLDER Routine 11/18/2024 9:01 AM ESTHETICIAN MAKEUP ARTIST MT AN PROCEDURE PLACEHOLDER Routine 11/18/2024 9:00 AM ESTHETICIAN MAKEUP ARTIST MT AN ELECTIVE ENDOTRACHEAL AIRWAY Routine 11/18/2024 9:00 AM ESTHETICIAN MAKEUP ARTIST POCT GLUCOSE DEVICE Routine 11/18/2024 8 :48 AM ESTHETICIAN MAKEUP ARTIST EXPLORATION - CAROTID 11/18/2024 7:40 AM ESTHETICIAN MAKEUP ARTIST 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) POCT GLUCOSE DEVICE Routine 11/18/2024 6 :37 AM ESTHETICIAN MAKEUP ARTIST POCT GLUCOSE DEVICE Routine 11/17/2024 11:48 AM ESTHETICIAN MAKEUP ARTIST POCT GLUCOSE DEVICE Routine 11/17/2024 7 :55 AM ESTHETICIAN MAKEUP ARTIST EGFR Routine 11/17/2024 2:31 AM ESTHETICIAN MAKEUP ARTIST BASIC METABOLIC PANEL Routine 11/17/2024 2:31 AM ESTHETICIAN MAKEUP ARTIST POCT GLUCOSE DEVICE Routine 11/17/2024 1 :38 AM ESTHETICIAN MAKEUP ARTIST POCT GLUCOSE DEVICE Routine 11/16/2024 8 :33 PM ESTHETICIAN MAKEUP ARTIST POCT GLUCOSE DEVICE Routine 11/16/2024 4 :29 PM ESTHETICIAN MAKEUP ARTIST COVID-19 CORONAVIRUS RNA Routine 11/16/2024 12:37 PM ESTHETICIAN MAKEUP ARTIST POCT GLUCOSE DEVICE Routine 11/16/2024 11:37 AM ESTHETICIAN MAKEUP ARTIST POCT GLUCOSE DEVICE Routine 11/16/2024 8 :06 AM ESTHETICIAN MAKEUP ARTIST POCT GLUCOSE DEVICE Routine 11/16/2024 1 :44 AM ESTHETICIAN MAKEUP ARTIST POCT GLUCOSE DEVICE Routine 11/15/2024 8 :17 PM ESTHETICIAN MAKEUP ARTIST POCT GLUCOSE DEVICE Routine 11/15/2024 5 :06 PM ESTHETICIAN MAKEUP ARTIST POCT GLUCOSE DEVICE Routine 11/15/2024 11:45 AM ESTHETICIAN MAKEUP ARTIST POCT GLUCOSE DEVICE Routine 11/15/2024 8 :08 AM ESTHETICIAN MAKEUP ARTIST POTASSIUM LEVEL Timed 11/15/2024 5:04 AM ESTHETICIAN MAKEUP ARTIST MAGNESIUM Timed 11/15/2024 5:04 AM ESTHETICIAN MAKEUP ARTIST POCT GLUCOSE DEVICE Routine 11/15/2024 4 :01 AM ESTHETICIAN MAKEUP ARTIST POCT GLUCOSE DEVICE Routine 11/15/2024 1 :51 AM ESTHETICIAN MAKEUP ARTIST POCT GLUCOSE DEVICE Routine 11/14/2024 8 :08 PM ESTHETICIAN MAKEUP ARTIST POCT GLUCOSE DEVICE Routine 11/14/2024 4 :53 PM ESTHETICIAN MAKEUP ARTIST POCT GLUCOSE DEVICE Routine 11/14/2024 12:17 PM ESTHETICIAN MAKEUP ARTIST POCT GLUCOSE DEVICE Routine 11/14/2024 7 :56 AM ESTHETICIAN MAKEUP ARTIST POCT GLUCOSE DEVICE Routine 11/14/2024 2 :49 AM ESTHETICIAN MAKEUP ARTIST POCT GLUCOSE DEVICE Routine 11/13/2024 8 :19 PM ESTHETICIAN MAKEUP ARTIST POCT GLUCOSE DEVICE Routine 11/13/2024 4 :52 PM ESTHETICIAN MAKEUP ARTIST POCT GLUCOSE DEVICE Routine 11/13/2024 11:52 AM ESTHETICIAN MAKEUP ARTIST POCT GLUCOSE DEVICE Routine 11/13/2024 7 :55 AM ESTHETICIAN MAKEUP ARTIST POCT GLUCOSE DEVICE Routine 11/13/2024 1 :40 AM ESTHETICIAN MAKEUP ARTIST POCT GLUCOSE DEVICE Routine 11/12/2024 8 :24 PM ESTHETICIAN MAKEUP ARTIST POCT GLUCOSE DEVICE Routine 11/12/2024 5 :12 PM ESTHETICIAN MAKEUP ARTIST POCT GLUCOSE DEVICE Routine 11/12/2024 11:59 AM ESTHETICIAN MAKEUP ARTIST POCT GLUCOSE DEVICE Routine 11/12/2024 8 :30 AM ESTHETICIAN MAKEUP ARTIST EGFR Routine 11/12/2024 3:07 AM ESTHETICIAN MAKEUP ARTIST DIFFERENTIAL AUTO Routine 11/12/2024 3:0 7 AM ESTHETICIAN MAKEUP ARTIST MAGNESIUM Routine 11/12/2024 3:07 AM ESTHETICIAN MAKEUP ARTIST COMPREHENSIVE METABOLIC PANEL Routine 11/12/2024 3:07 AM ESTHETICIAN MAKEUP ARTIST CBC WITH AUTO DIFFERENTIAL Routine 11/12/2024 3:07 AM ESTHETICIAN MAKEUP ARTIST POCT GLUCOSE DEVICE Routine 11/12/2024 2 :49 AM ESTHETICIAN MAKEUP ARTIST POCT GLUCOSE DEVICE Routine 11/11/2024 8 :20 PM ESTHETICIAN MAKEUP ARTIST POCT GLUCOSE DEVICE Routine 11/11/2024 5 :18 PM ESTHETICIAN MAKEUP ARTIST POCT GLUCOSE DEVICE Routine 11/11/2024 2 :40 PM ESTHETICIAN MAKEUP ARTIST POCT GLUCOSE DEVICE Routine 11/11/2024 11:44 AM ESTHETICIAN MAKEUP ARTIST POCT GLUCOSE DEVICE Routine 11/11/2024 8 :18 AM ESTHETICIAN MAKEUP ARTIST POCT GLUCOSE DEVICE Routine 11/11/2024 3 :46 AM ESTHETICIAN MAKEUP ARTIST EGFR Routine 11/11/2024 2:16 AM ESTHETICIAN MAKEUP ARTIST DIFFERENTIAL AUTO Routine 11/11/2024 2:1 6 AM ESTHETICIAN MAKEUP ARTIST MAGNESIUM Routine 11/11/2024 2:16 AM ESTHETICIAN MAKEUP ARTIST COMPREHENSIVE METABOLIC PANEL Routine 11/11/2024 2:16 AM ESTHETICIAN MAKEUP ARTIST CBC WITH AUTO DIFFERENTIAL Routine 11/11/2024 2:16 AM ESTHETICIAN MAKEUP ARTIST POCT GLUCOSE DEVICE Routine 11/11/2024 1 :41 AM ESTHETICIAN MAKEUP ARTIST POCT GLUCOSE DEVICE Routine 11/10/2024 8 :50 PM ESTHETICIAN MAKEUP ARTIST POCT GLUCOSE DEVICE Routine 11/10/2024 4 :52 PM ESTHETICIAN MAKEUP ARTIST POCT GLUCOSE DEVICE Routine 11/10/2024 11:57 AM ESTHETICIAN MAKEUP ARTIST TRANSTHORACIC ECHO (TTE) LIMITED/FOLLOW UP WO DOPPLER/CF W CONTRAST STAT 11/10/2024 9:50 AM ESTHETICIAN MAKEUP ARTIST POCT GLUCOSE DEVICE Routine 11/10/2024 8 :00 AM ESTHETICIAN MAKEUP ARTIST EGFR Routine 11/10/2024 2:27 AM ESTHETICIAN MAKEUP ARTIST DIFFERENTIAL AUTO Routine 11/10/2024 2:2 7 AM ESTHETICIAN MAKEUP ARTIST PRO B-TYPE NATRIURETIC PEPTIDE Routine 11/10/2024 2:27 AM ESTHETICIAN MAKEUP ARTIST MAGNESIUM Routine 11/10/2024 2:27 AM ESTHETICIAN MAKEUP ARTIST COMPREHENSIVE METABOLIC PANEL Routine 11/10/2024 2:27 AM ESTHETICIAN MAKEUP ARTIST CBC WITH AUTO DIFFERENTIAL Routine 11/10/2024 2:27 AM ESTHETICIAN MAKEUP ARTIST POCT GLUCOSE DEVICE Routine 11/10/2024 1 :48 AM ESTHETICIAN MAKEUP ARTIST POCT GLUCOSE DEVICE Routine 11/09/2024 8 :39 PM ESTHETICIAN MAKEUP ARTIST POCT GLUCOSE DEVICE Routine 11/09/2024 5 :23 PM ESTHETICIAN MAKEUP ARTIST POCT GLUCOSE DEVICE Routine 11/09/2024 11:06 AM ESTHETICIAN MAKEUP ARTIST XR CHEST 1 VIEW ED Urgent/IP Urgent 11/09/2024 10:32 AM ESTHETICIAN MAKEUP ARTIST POCT GLUCOSE DEVICE Routine 11/09/2024 7 :16 AM ESTHETICIAN MAKEUP ARTIST POCT GLUCOSE DEVICE Routine 11/09/2024 2 :08 AM ESTHETICIAN MAKEUP ARTIST EGFR Routine 11/09/2024 2:08 AM ESTHETICIAN MAKEUP ARTIST DIFFERENTIAL AUTO Routine 11/09/2024 2:0 8 AM ESTHETICIAN MAKEUP ARTIST MAGNESIUM Routine 11/09/2024 2:08 AM ESTHETICIAN MAKEUP ARTIST COMPREHENSIVE METABOLIC PANEL Routine 11/09/2024 2:08 AM ESTHETICIAN MAKEUP ARTIST CBC WITH AUTO DIFFERENTIAL Routine 11/09/2024 2:08 AM ESTHETICIAN MAKEUP ARTIST POCT GLUCOSE DEVICE Routine 11/08/2024 8 :36 PM ESTHETICIAN MAKEUP ARTIST POCT GLUCOSE DEVICE Routine 11/08/2024 4 :57 PM ESTHETICIAN MAKEUP ARTIST TROPONIN T HIGH-SENSITIVITY Timed 11/08/2024 2:31 PM ESTHETICIAN MAKEUP ARTIST POCT GLUCOSE DEVICE Routine 11/08/2024 12:04 PM ESTHETICIAN MAKEUP ARTIST POCT GLUCOSE DEVICE Routine 11/08/2024 8 :00 AM ESTHETICIAN MAKEUP ARTIST TROPONIN T HIGH-SENSITIVITY Timed 11/08/2024 7:44 AM ESTHETICIAN MAKEUP ARTIST EGFR Routine 11/08/2024 2:30 AM ESTHETICIAN MAKEUP ARTIST DIFFERENTIAL AUTO Routine 11/08/2024 2:3 0 AM ESTHETICIAN MAKEUP ARTIST APTT STAT 11/08/2024 2:30 AM ESTHETICIAN MAKEUP ARTIST CBC WITHOUT DIFFERENTIAL STAT 11/08/2024 2:30 AM ESTHETICIAN MAKEUP ARTIST PROTIME-INR STAT 11/08/2024 2:30 AM ESTHETICIAN MAKEUP ARTIST LIPID PANEL Routine 11/08/2024 2:30 AM ESTHETICIAN MAKEUP ARTIST MAGNESIUM Routine 11/08/2024 2:30 AM ESTHETICIAN MAKEUP ARTIST COMPREHENSIVE METABOLIC PANEL Routine 11/08/2024 2:30 AM ESTHETICIAN MAKEUP ARTIST CBC WITH AUTO DIFFERENTIAL Routine 11/08/2024 2:30 AM ESTHETICIAN MAKEUP ARTIST PRO B-TYPE NATRIURETIC PEPTIDE Routine 11/08/2024 2:30 AM ESTHETICIAN MAKEUP ARTIST TROPONIN T HIGH-SENSITIVITY Timed 11/08/2024 2:30 AM ESTHETICIAN MAKEUP ARTIST PROTIME-INR Routine 11/08/2024 2:24 AM ESTHETICIAN MAKEUP ARTIST POCT GLUCOSE DEVICE Routine 11/08/2024 1 :48 AM ESTHETICIAN MAKEUP ARTIST SCAN - LABS 11/07/2024 SCAN - RADIOLOGY/IMAGING 11/07/2024 SCAN - LABS 11/04/2024 PROTIME-INR Routine 11/04/2024 MRI ABDOMEN LIVER W WO CONTRAST Schedule Routine, Read Routine (OP Routine) 10/27/2024 12:54 PM ESTHETICIAN MAKEUP ARTIST Neuroendocrine cancer (HCC) Secondary neuroendocrine tumors (HCC) XR CHEST PA LATERAL 2 VIEWS Schedule Routine, Read Routine (OP Routine) 10/27/2024 9:14 AM ESTHETICIAN MAKEUP ARTIST Encounter for imaging to screen for metal prior to magnetic resonance imaging (MRI) PROTIME-INR Routine 10/27/2024 US CAROTIDS DUPLEX BILATERAL Schedule Routine, Read Routine (OP Routine) 10/25/2024 2:57 PM ESTHETICIAN MAKEUP ARTIST Encounter for other preprocedural examination SCAN - LABS 10/22/2024 DEVICE CHECK - REMOTE Routine 10/19/2024 10:10 AM ESTHETICIAN MAKEUP ARTIST ICD (implantable cardioverter-defibri llator) in place Dilated cardiomyopathy (CMS/HCC) (HCC) Paroxysmal A-fib (CMS/HCC) (HCC) PROTIME-INR Routine 10/14/2024 PROTIME-INR Routine 10/07/2024 PROTIME-INR Routine 10/01/2024 PROTIME-INR Routine 10/01/2024 PROTIME-INR Routine 09/23/2024 SCAN - LABS 09/13/2024 POCT GLUCOSE DEVICE Routine 08/30/2024 12:36 PM ESTHETICIAN MAKEUP ARTIST URINALYSIS, MICROSCOPIC ONLY Routine 08/30/2024 9:28 AM ESTHETICIAN MAKEUP ARTIST URINALYSIS AND REFLEX TO MICROSCOPIC AND CULTURE Routine 08/30/2024 9:28 AM ESTHETICIAN MAKEUP ARTIST POCT GLUCOSE DEVICE Routine 08/30/2024 7 :49 AM ESTHETICIAN MAKEUP ARTIST MAGNESIUM Routine 08/30/2024 2:25 AM ESTHETICIAN MAKEUP ARTIST ADD ON LAB TEST Add-On 08/30/2024 2:25 AM ESTHETICIAN MAKEUP ARTIST EGFR Routine 08/30/2024 2:25 AM ESTHETICIAN MAKEUP ARTIST DIFFERENTIAL AUTO Routine 08/30/2024 2:2 5 AM ESTHETICIAN MAKEUP ARTIST BASIC METABOLIC PANEL Routine 08/30/2024 2:25 AM ESTHETICIAN MAKEUP ARTIST PROTIME-INR Routine 08/30/2024 2:25 AM ESTHETICIAN MAKEUP ARTIST CBC WITH AUTO DIFFERENTIAL Routine 08/30/2024 2:25 AM ESTHETICIAN MAKEUP ARTIST HEPATITIS PANEL, ACUTE Routine 06/07/2024 4:33 AM CDT DIABETIC EYE EXAM Routine 01/26/2024 2:2 7 PM CDT SCREENING MAMMOGRAM BILATERAL [facility] Schedule Routine, Read Routine (OP Routine) 04/01/2023 8:51 AM CDT Screening mammogram, encounter for ALBUMIN CREATININE RATIO, URINE Routine 10/11/2022 10:25 AM ESTHETICIAN MAKEUP ARTIST Type 2 diabetes mellitus with hyperlipidemia (HCC) Essential hypertension COLONOSCOPY 02/05/2022 1:10 PM CDT from Last 3 Months or Most Recently Relevant to Health Maintenance Results * POCT glucose (11/30/2024 11:42 AM ESTHETICIAN MAKEUP ARTIST) Glucose, POC 121 70 - 199 mg/dL Blood 11/30/2024 11:4 2 AM ESTHETICIAN MAKEUP ARTIST 11/30/2024 11:42 AM ESTHETICIAN MAKEUP ARTIST Hesham Madsen MD LAB POCT ORDERABLES - DEVICE Final Result [facility] [place] [address] * (ABNORMAL) POCT glucose (11/30/2024 7:37 AM ESTHETICIAN MAKEUP ARTIST) Glucose, POC 220(H) 70 - 199 mg/dL Blood 11/30/2024 7:37 AM ESTHETICIAN MAKEUP ARTIST 11/30/2024 7:37 AM ESTHETICIAN MAKEUP ARTIST Hesham Madsen MD LAB POCT ORDERABLES - DEVICE Final Result Performing Organization Address City/State/[facility] Co de Phone Number [facility] [place] [address] * (ABNORMAL) POCT glucose (11/30/2024 2:12 AM ESTHETICIAN MAKEUP ARTIST) Glucose, POC 227(H) 70 - 199 mg/dL Blood 11/30/2024 2:12 AM ESTHETICIAN MAKEUP ARTIST 11/30/2024 2:12 AM ESTHETICIAN MAKEUP ARTIST Hesham Madsen MD LAB POCT ORDERABLES - DEVICE Final Result Performing Organization Address City/[facility] Co de Phone Number [facility] [place] [address] * eGFR (11/30/2024 12:02 AM ESTHETICIAN MAKEUP ARTIST) eGFR >90 >=60 mL/min/1. 73 m2 Comment: Interpretive Data Reference Interval Normal >/= 90 mL/min/1.73m2 Mildly decreased* 60 - 89 mL/min/1.73m2 Mildly to moderately decreased 45 - 59 mL/min/1.73m2 Moderately to severely decreased 30 - 44 mL/min/1.73m2 Severely decreased 15 - 29 mL/min/1.73m2 Kidney Failure < 15 mL/min/1.73m2 *Relative to young adult level Estimated glomerular filtration rate is determined by the 2020 CKD-EPI equation recommended by the National Kidney Foundation (A Unifying Approach to GFR Estimation: Recommendations of the NKF-ASK Task Force on Reassessing the Inclusion of Race in Diagnosing Kidney Disease, JASN 2020). The CKD-EPI equation should not be used for patients with unstable renal function and has not been validated in children and those over 70. Current interpretive data was last reviewed 2021. Blood 11/30/2024 12:0 2 AM ESTHETICIAN MAKEUP ARTIST 11/30/2024 12:30 AM ESTHETICIAN MAKEUP ARTIST Hesham Madsen MD LAB BLOOD ORDERABLES Final R esult [facility] Department [place] [address] * (ABNORMAL) Basic metabolic panel (11/30/2024 12:02 AM ESTHETICIAN MAKEUP ARTIST) Sodium 143 135 - 145 mmol/L Potassium, pl 4.4 3.3 - 4.9 mmol/L [facility] Comment:Repeated and Verifie d Chloride 101 97 - 110 mmol/L [facility] CO2 36(H) 22 - 32 mmol/L [facility] Anion gap 6 2 - 15 mmol/L [facility] BUN 23 6 - 25 mg/dL [facility] Creatinine 0.47(L) 0.60 - 1.10 mg/dL [facility] Glucose 171 70 - 199 mg/dL [facility] Comment: Interpretive Data Fasting glucose >/= 126 mg/dl is diagnostic for diabetes. Fasting is defined as no caloric intake for at least 8 hours. Fasting glucose between 100 mg/dl to 125 mg/dl is diagnostic of prediabetes. In a patient with classic symptoms of hyperglycemia or hyperglycemic crisis, a random glucose >/= 200 mg/dl is diagnostic for diabetes. In the absence of unequivocal hyperglycemia, results should be confirmed by repeat testing. The classification and Diagnosis of Diabetes Diabetes Care 202; 46: S19-S40. Current interpretive data was last revised 2022. Calcium 9.1 8.5 - 10.3 mg/dL [facility] Comment:Reviewed Blood 11/30/2024 12:0 2 AM ESTHETICIAN MAKEUP ARTIST 11/30/2024 12:30 AM ESTHETICIAN MAKEUP ARTIST Result [facility] Hesham Madsen MD LAB BLOOD ORDERABLES Final [facility] [place] [address] * (ABNORMAL) POCT glucose (11/29/2024 9:58 PM ESTHETICIAN MAKEUP ARTIST) Glucose, POC 207(H) 70 - 199 mg/dL Blood 11/29/2024 9:58 PM ESTHETICIAN MAKEUP ARTIST 11/29/2024 9:58 PM ESTHETICIAN MAKEUP ARTIST Result [facility] Hesham Madsen MD LAB POCT ORDERABLES - DEVICE Final Result Performing Organization Address [facility] Co de Phone Number [facility] [place] [address] * eGFR (11/29/2024 8:56 PM ESTHETICIAN MAKEUP ARTIST) Pathologist [facility] eGFR See Comment >=60 Comment: Interpretive Data Reference Interval Normal >/= 90 mL/min/1.73m2 Mildly decreased* 60 - 89 mL/min/1.73m2 Mildly to moderately decreased 45 - 59 mL/min/1.73m2 Moderately to severely decreased 30 - 44 mL/min/1.73m2 Severely decreased 15 - 29 mL/min/1.73m2 Kidney Failure < 15 mL/min/1.73m2 *Relative to young adult level Estimated glomerular filtration rate is determined by the 2020 CKD-EPI equation recommended by the National Kidney Foundation (A Unifying Approach to GFR Estimation: Recommendations of the NKF-ASK Task Force on Reassessing the Inclusion of Race in Diagnosing Kidney Disease, JASN 202). The CKD-EPI equation should not be used for patients with unstable renal function and has not been validated in children and those over 70. Current interpretive data was last reviewed 2021. Blood 11/29/2024 8:56 PM ESTHETICIAN MAKEUP ARTIST 11/29/2024 9:58 PM ESTHETICIAN MAKEUP ARTIST Manisha Sheffield Teri COPPOLA LAB BLOOD ORDERABLES Edited Result - Final [facility] Department [place] [address] * (ABNORMAL) Differential, auto (11/29/2024 8:56 PM ESTHETICIAN MAKEUP ARTIST) Neutrophil abs 7.2(H) 1.5 - 6.5 K/cumm Imm gran abs 0.2(H) 0.0 - 0.1 K/cumm [facility] Lymphocyte abs 2.1 0.8 - 3.3 K/cumm [facility] Monocyte abs 0.7 0.2 - 0.8 K/cumm [facility] Eosinophil abs 0.0 0.0 - 0.5 K/cumm [facility] Basophil abs 0.0 0.0 - 0.1 K/cumm [facility] Neutrophil pct 70.6 % [facility] Comment: Interpretive Data Percent cell count reference ranges are not reported, since discordance with absolute values may lead to misinterpretation of CBC data. Current Interpretive Data was last revised on 2018. Imm gran pct 1.8 % [facility] Comment: Interpretive Data Percent cell count reference ranges are not reported, since discordance with absolute values may lead to misinterpretation of CBC data. Current Interpretive Data was last revised on 2018. Lymphocyte pct 20.4 % [facility] Comment: Interpretive Data Percent cell count reference ranges are not reported, since discordance with absolute values may lead to misinterpretation of CBC data. Current Interpretive Data was last revised on 2018. Monocyte pct 6.7 % [facility] Comment: Interpretive Data Percent cell count reference ranges are not reported, since discordance with absolute values may lead to misinterpretation of CBC data. Current Interpretive Data was last revised on 2018. Eosinophil pct 0.4 % [facility] Comment: Interpretive Data Percent cell count reference ranges are not reported, since discordance with absolute values may lead to misinterpretation of CBC data. Current Interpretive Data was last revised on 2018. Basophil pct 0.1 % [facility] Comment: Interpretive Data Percent cell count reference ranges are not reported, since discordance with absolute values may lead to misinterpretation of CBC data. Current Interpretive Data was last revised on 2018. Blood 11/29/2024 8:56 PM ESTHETICIAN MAKEUP ARTIST 11/29/2024 9:45 PM ESTHETICIAN MAKEUP ARTIST Manisha Williamson NP LAB BLOOD ORDERABLES Final Result Performing Organization Address City/[facility]/ZIP Co de Phone Number [facility] [place] [address] * Critical Result Callback Chemistry (11/29/2024 8:56 PM ESTHETICIAN MAKEUP ARTIST) Pathologist [facility] Date Notified [id number] Time Notified [address] [facility] TestName Potassium, Calcium [facility] Called/Read Back [place] [facility] Credentials RN [facility] Called By [facility] Blood 11/29/2024 8:56 PM ESTHETICIAN MAKEUP ARTIST 11/29/2024 9:58 PM ESTHETICIAN MAKEUP ARTIST Manisha Williamson NP LAB BLOOD ORDERABLES Final Result Performing Organization Address [facility] [place] [address] * (ABNORMAL) CBC with auto differential (11/29/2024 8:56 PM ESTHETICIAN MAKEUP ARTIST) [facility] WBC 10.2(H) 3.8 - 9.9 K/cumm Hgb 9.2(L) 11.9 - 15.5 g/dL [facility] Hct 33.3(L) 35.6 - 45.5 % [facility] Plt 370 150 - 400 K/cumm [facility] MPV 10.7 9.1 - 12.3 fL [facility] RBC 4.03 3.90 - 5.20 M/cumm [facility] MCV 82.6 81.3 - 96.4 fL [facility] MCH 22.8(L) 27.1 - 33.3 pg [facility] MCHC 27.6(L) 32.3 - 35.7 g/dL [facility] RDW CV 22.9(H) 11.1 - 14.9 % [facility] RDW SD 67.7(H) 35.7 - 48.1 fL [facility] NRBC abs 0.04(H) 0.00 - 0.01 K/cumm [facility] Blood 11/29/2024 8:56 PM ESTHETICIAN MAKEUP ARTIST 11/29/2024 9:45 PM ESTHETICIAN MAKEUP ARTIST us Manisha Williamson NP LAB BLOOD ORDERABLES Final Result Performing Organization Address City/[facility]/ZIP Co de Phone Number [facility] [employer] [place], [place] [id number] * (ABNORMAL) Protime-INR (11/29/2024 8:56 PM ESTHETICIAN MAKEUP ARTIST) PT 28.0(H) 9.7 - 13.0 sec INR 2.54(H) 0.90 - 1.20 [facility] Comment: Interpretive data Oral anticoagulant therapeutic ranges: Venous thromboembolism prophylaxis or treatment: 2.0-3.0 CARDIOLOGY Standard range: 2.0-3.0 High-intensity range: 2.5-3.5 Refer to indication-specific guidelines for appropriate target ranges for prosthetic heart valve replacement. Current interpretive data was last revised on 2019. Blood 11/29/2024 8:56 PM ESTHETICIAN MAKEUP ARTIST 11/29/2024 9:45 PM ESTHETICIAN MAKEUP ARTIST us Hesham Madsen MD LAB BLOOD ORDERABLES Final R esult [facility] [place] [address] * Basic metabolic panel (11/29/2024 8:56 PM ESTHETICIAN MAKEUP ARTIST) Sodium See Comment 135 - 145 mmol/L Comment:Credited: Sample inv estigated and is suggestive of an improper collection (e.g., IV fluid contamination, improper tube type). Deleted at the Request of [place] RN on 11/29/2024 23:33:56 ESTHETICIAN MAKEUP ARTIST by RV . Potassium, pl See Comment 3.3 - 4.9 mmol/L [facility] Comment: Hemolyzed; Potassium value may be falsely elevated by as much as 0.3-0.5 mmol/L. Suggest redraw and reanalysis. Credited: Sample investigated and is suggestive of an improper collection (e.g., IV fluid contamination, improper tube type). Deleted at the Request of [place] [facility] RN on 11/29/2024 23:33:56 ESTHETICIAN MAKEUP ARTIST by RV . Chloride See Comment 97 - 110 mmol/L [facility] Comment:Credited: Sample inv estigated and is suggestive of an improper collection (e.g., IV fluid contamination, improper tube type). Deleted at the Request of [place] [facility] RN on 11/29/2024 23:33:56 ESTHETICIAN MAKEUP ARTIST by RV . CO2 See Comment 22 - 32 mmol/L [facility] Comment:Credited: Sample inv estigated and is suggestive of an improper collection (e.g., IV fluid contamination, improper tube type). Deleted at the Request of [place] [facility] RN on 11/29/2024 23:33:56 ESTHETICIAN MAKEUP ARTIST by RV . Anion gap See Comment 2 - 15 mmol/L [facility] Comment:Credited: Sample inv estigated and is suggestive of an improper collection (e.g., IV fluid contamination, improper tube type). Deleted at the Request of [place] [facility] RN on 11/29/2024 23:33:56 ESTHETICIAN MAKEUP ARTIST by RV . BUN See Comment 6 - 25 mg/dL [facility] Comment:Credited: Sample inv estigated and is suggestive of an improper collection (e.g., IV fluid contamination, improper tube type). Deleted at the Request of [place] [facility] RN on 11/29/2024 23:33:56 ESTHETICIAN MAKEUP ARTIST by RV . Creatinine See Comment 0.60 - 1.10 mg/dL [facility] Comment:Credited: Sample inv estigated and is suggestive of an improper collection (e.g., IV fluid contamination, improper tube type). Deleted at the Request of [place] [facility] RN on 11/29/2024 23:33:56 ESTHETICIAN MAKEUP ARTIST by RV . Glucose See Comment 70 - 199 mg/dL [facility] Comment: Credited: Sample investigated and is suggestive of an improper collection (e.g., IV fluid contamination, improper tube type). Deleted at the Request of [place] [facility] RN on 11/29/2024 23:33:56 ESTHETICIAN MAKEUP ARTIST by RV . Interpretive Data Fasting glucose >/= 126 mg/dl is diagnostic for diabetes. Fasting is defined as no caloric intake for at least 8 hours. Fasting glucose between 100 mg/dl to 125 mg/dl is diagnostic of prediabetes. In a patient with classic symptoms of hyperglycemia or hyperglycemic crisis, a random glucose >/= 200 mg/dl is diagnostic for diabetes. In the absence of unequivocal hyperglycemia, results should be confirmed by repeat testing. The classification and Diagnosis of Diabetes Diabetes Care 2021; 46: S19-S40. Current interpretive data was last revised 2022. Calcium See Comment 8.5 - 10.3 mg/dL [facility] Comment:Credited: Sample inv estigated and is suggestive of an improper collection (e.g., IV fluid contamination, improper tube type). Deleted at the Request of [place] [facility] RN on 11/29/2024 23:33:56 ESTHETICIAN MAKEUP ARTIST by RV . Blood 11/29/2024 8:56 PM ESTHETICIAN MAKEUP ARTIST 11/29/2024 9:45 PM ESTHETICIAN MAKEUP ARTIST us Manisha Williamson NP LAB BLOOD ORDERABLES Edited Result - Final Performing Organization Address [facility] Co de Phone Number [facility] Department [place] [address] * POCT glucose (11/29/2024 7:29 PM ESTHETICIAN MAKEUP ARTIST) [facility] Signature Glucose, POC 182 70 - 199 mg/dL Blood 11/29/2024 7:29 PM ESTHETICIAN MAKEUP ARTIST 11/29/2024 7:29 PM ESTHETICIAN MAKEUP ARTIST us Hesham Madsen MD LAB POCT ORDERABLES - DEVICE Final Result Performing Organization Address City/[facility]/[place] [address] * POCT glucose (11/29/2024 5:12 PM ESTHETICIAN MAKEUP ARTIST) Glucose, POC 128 70 - 199 mg/dL Blood 11/29/2024 5:12 PM ESTHETICIAN MAKEUP ARTIST 11/29/2024 5:12 PM ESTHETICIAN MAKEUP ARTIST Hesham Madsen MD LAB POCT ORDERABLES - DEVICE Final Result Performing Organization Address [facility] [place] [address] * POCT glucose (11/29/2024 11:17 AM ESTHETICIAN MAKEUP ARTIST) Glucose, POC 189 70 - 199 mg/dL Blood 11/29/2024 11:1 7 AM ESTHETICIAN MAKEUP ARTIST 11/29/2024 11:17 AM ESTHETICIAN MAKEUP ARTIST Hesham Madsen MD LAB POCT ORDERABLES - DEVICE Final Result Performing Organization Address [facility] [place] [address] * POCT glucose (11/29/2024 7:42 AM ESTHETICIAN MAKEUP ARTIST) Glucose, POC 149 70 - 199 mg/dL Blood 11/29/2024 7:42 AM ESTHETICIAN MAKEUP ARTIST 11/29/2024 7:42 AM ESTHETICIAN MAKEUP ARTIST Hesham Madsen MD LAB POCT ORDERABLES - DEVICE Final Result Performing Organization Address [facility] [place] [address] * POCT glucose (11/29/2024 2:07 AM ESTHETICIAN MAKEUP ARTIST) Glucose, POC 163 70 - 199 mg/dL Blood 11/29/2024 2:07 AM ESTHETICIAN MAKEUP ARTIST 11/29/2024 2:07 AM ESTHETICIAN MAKEUP ARTIST us Hesham Madsen MD LAB POCT ORDERABLES - DEVICE Final Result Performing Organization Address City/[facility] de Phone Number [facility] [place] [address] * (ABNORMAL) POCT glucose (11/29/2024 12:02 AM ESTHETICIAN MAKEUP ARTIST) Glucose, POC 202(H) 70 - 199 mg/dL Blood 11/29/2024 12:0 2 AM ESTHETICIAN MAKEUP ARTIST 11/29/2024 12:02 AM ESTHETICIAN MAKEUP ARTIST Hesham Madsen MD LAB POCT ORDERABLES - DEVICE Final Result Performing Organization Address [facility] de Phone Number [facility] [place] [address] * eGFR (11/28/2024 9:54 PM ESTHETICIAN MAKEUP ARTIST) Pathologist [facility] eGFR >90 >=60 mL/min/1. 73 m2 Comment: Interpretive Data Reference Interval Normal >/= 90 mL/min/1.73m2 Mildly decreased* 60 - 89 mL/min/1.73m2 Mildly to moderately decreased 45 - 59 mL/min/1.73m2 Moderately to severely decreased 30 - 44 mL/min/1.73m2 Severely decreased 15 - 29 mL/min/1.73m2 Kidney Failure < 15 mL/min/1.73m2 *Relative to young adult level Estimated glomerular filtration rate is determined by the 2020 CKD-EPI equation recommended by the National Kidney Foundation (A Unifying Approach to GFR Estimation: Recommendations of the NKF-ASK Task Force on Reassessing the Inclusion of Race in Diagnosing Kidney Disease, JASN 2020). The CKD-EPI equation should not be used for patients with unstable renal function and has not been validated in children and those over 70. Current interpretive data was last reviewed 2021. Blood 11/28/2024 9:54 PM ESTHETICIAN MAKEUP ARTIST 11/28/2024 10:52 PM ESTHETICIAN MAKEUP ARTIST Manisha Williamson NP LAB BLOOD ORDERABLES Final Result [facility] Department [place] [address] * (ABNORMAL) Differential, auto (11/28/2024 9:54 PM ESTHETICIAN MAKEUP ARTIST) Neutrophil abs 6.3 1.5 - 6.5 K/cumm Imm gran abs 0.2(H) 0.0 - 0.1 K/cumm [facility] Lymphocyte abs 1.1 0.8 - 3.3 K/cumm [facility] Monocyte abs 0.5 0.2 - 0.8 K/cumm [facility] Eosinophil abs 0.0 0.0 - 0.5 K/cumm [facility] Basophil abs 0.0 0.0 - 0.1 K/cumm [facility] Neutrophil pct 78.3 % [facility] Comment: Interpretive Data Percent cell count reference ranges are not reported, since discordance with absolute values may lead to misinterpretation of CBC data. Current Interpretive Data was last revised on 2018. Imm gran pct 2.0 % [facility] Comment: Interpretive Data Percent cell count reference ranges are not reported, since discordance with absolute values may lead to misinterpretation of CBC data. Current Interpretive Data was last revised on 2018. Lymphocyte pct 13.6 % [facility] Comment: Interpretive Data Percent cell count reference ranges are not reported, since discordance with absolute values may lead to misinterpretation of CBC data. Current Interpretive Data was last revised on 2018. Monocyte pct 5.8 % [facility] Comment: Interpretive Data Percent cell count reference ranges are not reported, since discordance with absolute values may lead to misinterpretation of CBC data. Current Interpretive Data was last revised on 2018. Eosinophil pct 0.2 % [facility] Comment: Interpretive Data Percent cell count reference ranges are not reported, since discordance with absolute values may lead to misinterpretation of CBC data. Current Interpretive Data was last revised on 2018. Basophil pct 0.1 % [facility] Comment: Interpretive Data Percent cell count reference ranges are not reported, since discordance with absolute values may lead to misinterpretation of CBC data. Current Interpretive Data was last revised on 2018. Blood 11/28/2024 9:54 PM ESTHETICIAN MAKEUP ARTIST 11/28/2024 10:53 PM ESTHETICIAN MAKEUP ARTIST Manisha Williamson NP LAB BLOOD ORDERABLES Final Result [facility] Department [place] [address] * (ABNORMAL) CBC with auto differential (11/28/2024 9:54 PM ESTHETICIAN MAKEUP ARTIST) WBC 8.1 3.8 - 9.9 K/cumm Hgb 8.7(L) 11.9 - 15.5 g/dL [facility] Hct 31.5(L) 35.6 - 45.5 % [facility] Plt 360 150 - 400 K/cumm [facility] MPV 10.9 9.1 - 12.3 fL [facility] RBC 3.84(L) 3.90 - 5.20 M/cumm [facility] MCV 82.0 81.3 - 96.4 fL [facility] MCH 22.7(L) 27.1 - 33.3 pg [facility] MCHC 27.6(L) 32.3 - 35.7 g/dL [facility] RDW CV 22.9(H) 11.1 - 14.9 % [facility] RDW SD 67.8(H) 35.7 - 48.1 fL [facility] NRBC abs 0.04(H) 0.00 - 0.01 K/cumm [facility] Blood 11/28/2024 9:54 PM ESTHETICIAN MAKEUP ARTIST 11/28/2024 10:53 PM ESTHETICIAN MAKEUP ARTIST Manisha Williamson NP LAB BLOOD ORDERABLES Final Result Performing Organization Address [facility] de Phone Number [facility] Department [place] [address] * (ABNORMAL) Protime-INR (11/28/2024 9:54 PM ESTHETICIAN MAKEUP ARTIST) PT 33.7(H) 9.7 - 13.0 sec INR 3.05(H) 0.90 - 1.20 [facility] Comment: Interpretive data Oral anticoagulant therapeutic ranges: Venous thromboembolism prophylaxis or treatment: 2.0-3.0 CARDIOLOGY Standard range: 2.0-3.0 High-intensity range: 2.5-3.5 Refer to indication-specific guidelines for appropriate target ranges for prosthetic heart valve replacement. Current interpretive data was last revised on 2019. Blood 11/28/2024 9:54 PM ESTHETICIAN MAKEUP ARTIST 11/28/2024 11:04 PM ESTHETICIAN MAKEUP ARTIST Hesham Madsen MD LAB BLOOD ORDERABLES Final R esult Performing Organization Address [facility] Co de Phone Number [facility] Department [place] [address] * (ABNORMAL) Basic metabolic panel (11/28/2024 9:54 PM ESTHETICIAN MAKEUP ARTIST) Sodium 141 135 - 145 mmol/L Potassium, pl 3.4 3.3 - 4.9 mmol/L [facility] Chloride 99 97 - 110 mmol/L [facility] CO2 33(H) 22 - 32 mmol/L [facility] Anion gap 9 2 - 15 mmol/L [facility] BUN 20 6 - 25 mg/dL [facility] Creatinine 0.45(L) 0.60 - 1.10 mg/dL [facility] Glucose 282(H) 70 - 199 mg/dL [facility] Comment: Interpretive Data Fasting glucose >/= 126 mg/dl is diagnostic for diabetes. Fasting is defined as no caloric intake for at least 8 hours. Fasting glucose between 100 mg/dl to 125 mg/dl is diagnostic of prediabetes. In a patient with classic symptoms of hyperglycemia or hyperglycemic crisis, a random glucose >/= 200 mg/dl is diagnostic for diabetes. In the absence of unequivocal hyperglycemia, results should be confirmed by repeat testing. The classification and Diagnosis of Diabetes Diabetes Care 2021; 46: S19-S40. Current interpretive data was last revised 2022. Calcium 8.4(L) 8.5 - 10.3 mg/dL [facility] Blood 11/28/2024 9:54 PM ESTHETICIAN MAKEUP ARTIST 11/28/2024 10:52 PM ESTHETICIAN MAKEUP ARTIST Manisha Williamson NP LAB BLOOD ORDERABLES Final Result Performing Organization Address City/[facility] Co de Phone Number [facility] Department [place] [place] [address] * (ABNORMAL) POCT glucose (11/28/2024 7:26 PM ESTHETICIAN MAKEUP ARTIST) Glucose, POC 319(H) 70 - 199 mg/dL Blood 11/28/2024 7:26 PM ESTHETICIAN MAKEUP ARTIST 11/28/2024 7:26 PM ESTHETICIAN MAKEUP ARTIST Hesham Madsen MD LAB POCT ORDERABLES - DEVICE Final Result Performing Organization Address [facility] Co de Phone Number [facility] Department [place] [address] * POCT glucose (11/28/2024 6:16 PM ESTHETICIAN MAKEUP ARTIST) Glucose, POC 115 70 - 199 mg/dL Blood 11/28/2024 6:16 PM ESTHETICIAN MAKEUP ARTIST 11/28/2024 6:16 PM ESTHETICIAN MAKEUP ARTIST Hesham Madsen MD LAB POCT ORDERABLES - DEVICE Final Result Performing Organization Address [facility] Co de Phone Number [facility] [place] [address] * POCT glucose (11/28/2024 5:01 PM ESTHETICIAN MAKEUP ARTIST) Glucose, POC 70 70 - 199 mg/dL Blood 11/28/2024 5:01 PM ESTHETICIAN MAKEUP ARTIST 11/28/2024 5:01 PM ESTHETICIAN MAKEUP ARTIST Hesham Madsen MD LAB POCT ORDERABLES - DEVICE Final Result Performing Organization Address [facility] Co de Phone Number [facility] [place] [address] * (ABNORMAL) POCT glucose (11/28/2024 11:19 AM ESTHETICIAN MAKEUP ARTIST) Glucose, POC 280(H) 70 - 199 mg/dL Comment:Glu2: RN/ Notified Glucose comment 1 Glu2: RN/ Notified [facility] Blood 11/28/2024 11:1 9 AM ESTHETICIAN MAKEUP ARTIST 11/28/2024 11:19 AM ESTHETICIAN MAKEUP ARTIST Result [facility] Hesham Madsen MD LAB POCT ORDERABLES - DEVICE Final Result Performing Organization Address [facility] de Phone Number [facility] Department [place] [place] [address] * (ABNORMAL) POCT glucose (11/28/2024 7:20 AM ESTHETICIAN MAKEUP ARTIST) Glucose, POC 247(H) 70 - 199 mg/dL Comment:Glu2: RN/ Notified Glucose comment 1 Glu2: RN/MD Notified [facility] Blood 11/28/2024 7:20 AM ESTHETICIAN MAKEUP ARTIST 11/28/2024 7:20 AM ESTHETICIAN MAKEUP ARTIST Hesham Madsen MD LAB POCT ORDERABLES - DEVICE Final Result Performing Organization Address [facility] Co de Phone Number [facility] [place] [address] * (ABNORMAL) POCT glucose (11/28/2024 2:02 AM ESTHETICIAN MAKEUP ARTIST) Glucose, POC 303(H) 70 - 199 mg/dL Blood 11/28/2024 2:02 AM ESTHETICIAN MAKEUP ARTIST 11/28/2024 2:02 AM ESTHETICIAN MAKEUP ARTIST Hesham Madsen MD LAB POCT ORDERABLES - DEVICE Final Result Performing Organization Address City/[facility] Co de Phone Number [facility] Department [place] [address] * POCT glucose (11/27/2024 10:58 PM ESTHETICIAN MAKEUP ARTIST) Glucose, POC 150 70 - 199 mg/dL Blood 11/27/2024 10:5 8 PM ESTHETICIAN MAKEUP ARTIST 11/27/2024 10:58 PM ESTHETICIAN MAKEUP ARTIST Hesham Madsen MD LAB POCT ORDERABLES - DEVICE Final Result Performing Organization Address [facility] de Phone Number [facility] Department [place] [address] * eGFR (11/27/2024 9:47 PM ESTHETICIAN MAKEUP ARTIST) eGFR >90 >=60 mL/min/1. 73 m2 Comment: Interpretive Data Reference Interval Normal >/= 90 mL/min/1.73m2 Mildly decreased* 60 - 89 mL/min/1.73m2 Mildly to moderately decreased 45 - 59 mL/min/1.73m2 Moderately to severely decreased 30 - 44 mL/min/1.73m2 Severely decreased 15 - 29 mL/min/1.73m2 Kidney Failure < 15 mL/min/1.73m2 *Relative to young adult level Estimated glomerular filtration rate is determined by the 2020 CKD-EPI equation recommended by the National Kidney Foundation (A Unifying Approach to GFR Estimation: Recommendations of the NKF-ASK Task Force on Reassessing the Inclusion of Race in Diagnosing Kidney Disease, JASN 2020). The CKD-EPI equation should not be used for patients with unstable renal function and has not been validated in children and those over 70. Current interpretive data was last reviewed 2021. Blood 11/27/2024 9:47 PM ESTHETICIAN MAKEUP ARTIST 11/27/2024 10:39 PM ESTHETICIAN MAKEUP ARTIST Manisha Sheffield Teri STOVE TENDER LAB BLOOD ORDERABLES Final Result [facility] Department [place] [address] * Differential, auto (11/27/2024 9:47 PM ESTHETICIAN MAKEUP ARTIST) Neutrophil abs 5.9 1.5 - 6.5 K/cumm Imm gran abs 0.1 0.0 - 0.1 K/cumm [facility] Lymphocyte abs 1.3 0.8 - 3.3 K/cumm [facility] Monocyte abs 0.7 0.2 - 0.8 K/cumm [facility] Eosinophil abs 0.0 0.0 - 0.5 K/cumm [facility] Basophil abs 0.0 0.0 - 0.1 K/cumm [facility] Neutrophil pct 73.6 % [facility] Comment: Interpretive Data Percent cell count reference ranges are not reported, since discordance with absolute values may lead to misinterpretation of CBC data. Current Interpretive Data was last revised on 2018. Imm gran pct 1.5 % [facility] Comment: Interpretive Data Percent cell count reference ranges are not reported, since discordance with absolute values may lead to misinterpretation of CBC data. Current Interpretive Data was last revised on 2018. Lymphocyte pct 16.2 % [facility] Comment: Interpretive Data Percent cell count reference ranges are not reported, since discordance with absolute values may lead to misinterpretation of CBC data. Current Interpretive Data was last revised on 2018. Monocyte pct 8.2 % [facility] Comment: Interpretive Data Percent cell count reference ranges are not reported, since discordance with absolute values may lead to misinterpretation of CBC data. Current Interpretive Data was last revised on 2018. Eosinophil pct 0.4 % [facility] Comment: Interpretive Data Percent cell count reference ranges are not reported, since discordance with absolute values may lead to misinterpretation of CBC data. Current Interpretive Data was last revised on 2018. Basophil pct 0.1 % [facility] Comment: Interpretive Data Percent cell count reference ranges are not reported, since discordance with absolute values may lead to misinterpretation of CBC data. Current Interpretive Data was last revised on 2018. Blood 11/27/2024 9:47 PM ESTHETICIAN MAKEUP ARTIST 11/27/2024 10:05 PM ESTHETICIAN MAKEUP ARTIST Manisha Williamson NP LAB BLOOD ORDERABLES Final Result [facility] Department [place] [address] * (ABNORMAL) CBC with auto differential (11/27/2024 9:47 PM ESTHETICIAN MAKEUP ARTIST) WBC 8.1 3.8 - 9.9 K/cumm Hgb 8.4(L) 11.9 - 15.5 g/dL [facility] Hct 31.0(L) 35.6 - 45.5 % [facility] Plt 343 150 - 400 K/cumm [facility] MPV 10.4 9.1 - 12.3 fL [facility] RBC 3.73(L) 3.90 - 5.20 M/cumm [facility] MCV 83.1 81.3 - 96.4 fL [facility] MCH 22.5(L) 27.1 - 33.3 pg [facility] MCHC 27.1(L) 32.3 - 35.7 g/dL [facility] RDW CV 23.2(H) 11.1 - 14.9 % [facility] RDW SD 69.7(H) 35.7 - 48.1 fL [facility] NRBC abs 0.03(H) 0.00 - 0.01 K/cumm [facility] Blood 11/27/2024 9:47 PM ESTHETICIAN MAKEUP ARTIST 11/27/2024 10:05 PM ESTHETICIAN MAKEUP ARTIST Manisha Williamson NP LAB BLOOD ORDERABLES Final Result Performing Organization Address [facility] Co de Phone Number [facility] Department [place] [address] * (ABNORMAL) Protime-INR (11/27/2024 9:47 PM ESTHETICIAN MAKEUP ARTIST) Pathologist [facility] PT 34.7(H) 9.7 - 13.0 sec INR 3.14(H) 0.90 - 1.20 [facility] Comment: Interpretive data Oral anticoagulant therapeutic ranges: Venous thromboembolism prophylaxis or treatment: 2.0-3.0 CARDIOLOGY Standard range: 2.0-3.0 High-intensity range: 2.5-3.5 Refer to indication-specific guidelines for appropriate target ranges for prosthetic heart valve replacement. Current interpretive data was last revised on 2019. Blood 11/27/2024 9:47 PM ESTHETICIAN MAKEUP ARTIST 11/27/2024 10:15 PM ESTHETICIAN MAKEUP ARTIST Hesham Madsen MD LAB BLOOD ORDERABLES Final R esult Performing Organization Address City/[facility] Co de Phone Number [facility] Department [place] [address] * (ABNORMAL) Basic metabolic panel (11/27/2024 9:47 PM ESTHETICIAN MAKEUP ARTIST) Pathologist [facility] Sodium 144 135 - 145 mmol/L Potassium, pl 4.4 3.3 - 4.9 mmol/L [facility] Comment:Hemolyzed; Potassium value may be falsely elevated by as much as 0.6-1.0 mmol/L. Suggest redraw and reanalysis. Chloride 101 97 - 110 mmol/L [facility] CO2 35(H) 22 - 32 mmol/L [facility] Anion gap 8 2 - 15 mmol/L [facility] BUN 22 6 - 25 mg/dL [facility] Creatinine 0.44(L) 0.60 - 1.10 mg/dL [facility] Glucose 156 70 - 199 mg/dL [facility] Comment: Interpretive Data Fasting glucose >/= 126 mg/dl is diagnostic for diabetes. Fasting is defined as no caloric intake for at least 8 hours. Fasting glucose between 100 mg/dl to 125 mg/dl is diagnostic of prediabetes. In a patient with classic symptoms of hyperglycemia or hyperglycemic crisis, a random glucose >/= 200 mg/dl is diagnostic for diabetes. In the absence of unequivocal hyperglycemia, results should be confirmed by repeat testing. The classification and Diagnosis of Diabetes Diabetes Care 2021; 46: S19-S40. Current interpretive data was last revised 2022. Calcium 9.0 8.5 - 10.3 mg/dL [facility] Blood 11/27/2024 9:47 PM ESTHETICIAN MAKEUP ARTIST 11/27/2024 10:39 PM ESTHETICIAN MAKEUP ARTIST Manisha Williamson NP LAB BLOOD ORDERABLES Final Result Performing Organization Address City/[facility]/ZIP Co de Phone Number [facility] Department [place] [address] * (ABNORMAL) POCT glucose (11/27/2024 8:31 PM ESTHETICIAN MAKEUP ARTIST) Glucose, POC 219(H) 70 - 199 mg/dL Blood 11/27/2024 8:31 PM ESTHETICIAN MAKEUP ARTIST 11/27/2024 8:31 PM ESTHETICIAN MAKEUP ARTIST Result [facility] Hesham Madsen MD LAB POCT ORDERABLES - DEVICE Final Result [facility] Department [place] [address] * POCT glucose (11/27/2024 4:59 PM ESTHETICIAN MAKEUP ARTIST) Glucose, POC 96 70 - 199 mg/dL Blood 11/27/2024 4:59 PM ESTHETICIAN MAKEUP ARTIST 11/27/2024 4:59 PM ESTHETICIAN MAKEUP ARTIST Hesham Madsen MD LAB POCT ORDERABLES - DEVICE Final Result Performing Organization Address [facility] de Phone Number [facility] [place] [address] * (ABNORMAL) POCT glucose (11/27/2024 11:42 AM ESTHETICIAN MAKEUP ARTIST) Glucose, POC 246(H) 70 - 199 mg/dL Comment:Glu2: RN/ Notified Glucose comment 1 Glu2: RN/ Notified [facility] Blood 11/27/2024 11:4 2 AM ESTHETICIAN MAKEUP ARTIST 11/27/2024 11:42 AM ESTHETICIAN MAKEUP ARTIST Hesham Madsen MD LAB POCT ORDERABLES - DEVICE Final Result Performing Organization Address [facility] [place] [address] * (ABNORMAL) POCT glucose (11/27/2024 7:21 AM ESTHETICIAN MAKEUP ARTIST) Glucose, POC 238(H) 70 - 199 mg/dL Comment:Glu2: RN/ Notified Glucose comment 1 Glu2: RAMYA/ Notified [facility] Blood 11/27/2024 7:21 AM ESTHETICIAN MAKEUP ARTIST 11/27/2024 7:21 AM ESTHETICIAN MAKEUP ARTIST us Hesham Madsen MD LAB POCT ORDERABLES - DEVICE Final Result Performing Organization Address [facility] de Phone Number [facility] [place] [address] * (ABNORMAL) POCT glucose (11/27/2024 4:10 AM ESTHETICIAN MAKEUP ARTIST) Glucose, POC 263(H) 70 - 199 mg/dL Blood 11/27/2024 4:10 AM ESTHETICIAN MAKEUP ARTIST 11/27/2024 4:10 AM ESTHETICIAN MAKEUP ARTIST us Hesham Madsen MD LAB POCT ORDERABLES - DEVICE Final Result Performing Organization Address City/[facility] Co de Phone Number [facility] [place] [address] * POCT glucose (11/26/2024 11:38 PM ESTHETICIAN MAKEUP ARTIST) Glucose, POC 84 70 - 199 mg/dL Blood 11/26/2024 11:3 8 PM ESTHETICIAN MAKEUP ARTIST 11/26/2024 11:38 PM ESTHETICIAN MAKEUP ARTIST us Hesham Madsen MD LAB POCT ORDERABLES - DEVICE Final Result Performing Organization Address [facility] de Phone Number [facility] Department [place] [address] * eGFR (11/26/2024 9:00 PM ESTHETICIAN MAKEUP ARTIST) eGFR >90 >=60 mL/min/1. 73 m2 Comment: Interpretive Data Reference Interval Normal >/= 90 mL/min/1.73m2 Mildly decreased* 60 - 89 mL/min/1.73m2 Mildly to moderately decreased 45 - 59 mL/min/1.73m2 Moderately to severely decreased 30 - 44 mL/min/1.73m2 Severely decreased 15 - 29 mL/min/1.73m2 Kidney Failure < 15 mL/min/1.73m2 *Relative to young adult level Estimated glomerular filtration rate is determined by the 2020 CKD-EPI equation recommended by the National Kidney Foundation (A Unifying Approach to GFR Estimation: Recommendations of the NKF-ASK Task Force on Reassessing the Inclusion of Race in Diagnosing Kidney Disease, JASN 202). The CKD-EPI equation should not be used for patients with unstable renal function and has not been validated in children and those over 70. Current interpretive data was last reviewed 2021. Blood 11/26/2024 9:00 PM ESTHETICIAN MAKEUP ARTIST 11/26/2024 9:50 PM ESTHETICIAN MAKEUP ARTIST us Manisha Williamson NP LAB BLOOD ORDERABLES Final Result [facility] Department [place] [address] * (ABNORMAL) Differential, auto (11/26/2024 9:00 PM ESTHETICIAN MAKEUP ARTIST) Neutrophil abs 7.8(H) 1.5 - 6.5 K/cumm Imm gran abs 0.1 0.0 - 0.1 K/cumm [facility] Lymphocyte abs 1.0 0.8 - 3.3 K/cumm [facility] Monocyte abs 0.7 0.2 - 0.8 K/cumm [facility] Eosinophil abs 0.0 0.0 - 0.5 K/cumm [facility] Basophil abs 0.0 0.0 - 0.1 K/cumm [facility] Neutrophil pct 81.0 % [facility] Comment: Interpretive Data Percent cell count reference ranges are not reported, since discordance with absolute values may lead to misinterpretation of CBC data. Current Interpretive Data was last revised on 2018. Imm gran pct 1.1 % [facility] Comment: Interpretive Data Percent cell count reference ranges are not reported, since discordance with absolute values may lead to misinterpretation of CBC data. Current Interpretive Data was last revised on 2018. Lymphocyte pct 10.8 % [facility] Comment: Interpretive Data Percent cell count reference ranges are not reported, since discordance with absolute values may lead to misinterpretation of CBC data. Current Interpretive Data was last revised on 2018. Monocyte pct 7.0 % [facility] Comment: Interpretive Data Percent cell count reference ranges are not reported, since discordance with absolute values may lead to misinterpretation of CBC data. Current Interpretive Data was last revised on 2018. Eosinophil pct 0.1 % [facility] Comment: Interpretive Data Percent cell count reference ranges are not reported, since discordance with absolute values may lead to misinterpretation of CBC data. Current Interpretive Data was last revised on 2018. Basophil pct 0.0 % [facility] Comment: Interpretive Data Percent cell count reference ranges are not reported, since discordance with absolute values may lead to misinterpretation of CBC data. Current Interpretive Data was last revised on 2018. Blood 11/26/2024 9:00 PM ESTHETICIAN MAKEUP ARTIST 11/26/2024 9:46 PM ESTHETICIAN MAKEUP ARTIST Manisha Williamson NP LAB BLOOD ORDERABLES Final Result Performing Organization Address [facility] Co de Phone Number [facility] [place] [address] * (ABNORMAL) CBC with auto differential (11/26/2024 9:00 PM ESTHETICIAN MAKEUP ARTIST) WBC 9.6 3.8 - 9.9 K/cumm Hgb 9.6(L) 11.9 - 15.5 g/dL [facility] Hct 36.4 35.6 - 45.5 % [facility] Plt 450(H) 150 - 400 K/cumm [facility] MPV 10.8 9.1 - 12.3 fL [facility] RBC 4.31 3.90 - 5.20 M/cumm [facility] MCV 84.5 81.3 - 96.4 fL [facility] MCH 22.3(L) 27.1 - 33.3 pg [facility] MCHC 26.4(L) 32.3 - 35.7 g/dL [facility] RDW CV 23.5(H) 11.1 - 14.9 % [facility] RDW SD 71.5(H) 35.7 - 48.1 fL [facility] NRBC abs 0.02(H) 0.00 - 0.01 K/cumm [facility] Blood 11/26/2024 9:00 PM ESTHETICIAN MAKEUP ARTIST 11/26/2024 9:46 PM ESTHETICIAN MAKEUP ARTIST Manisha Williamson NP LAB BLOOD ORDERABLES Final Result Performing Organization Address [facility] Co de Phone Number [facility] [place] [address] * (ABNORMAL) Protime-INR (11/26/2024 9:00 PM ESTHETICIAN MAKEUP ARTIST) PT 30.8(H) 9.7 - 13.0 sec INR 2.79(H) 0.90 - 1.20 [facility] Comment: Interpretive data Oral anticoagulant therapeutic ranges: Venous thromboembolism prophylaxis or treatment: 2.0-3.0 CARDIOLOGY Standard range: 2.0-3.0 High-intensity range: 2.5-3.5 Refer to indication-specific guidelines for appropriate target ranges for prosthetic heart valve replacement. Current interpretive data was last revised on 2019. Blood 11/26/2024 9:00 PM ESTHETICIAN MAKEUP ARTIST 11/26/2024 9:50 PM ESTHETICIAN MAKEUP ARTIST Hesham Madsen MD LAB BLOOD ORDERABLES Final R esult [facility] Department [place] [address] * (ABNORMAL) Basic metabolic panel (11/26/2024 9:00 PM ESTHETICIAN MAKEUP ARTIST) Sodium 146(H) 135 - 145 mmol/L Potassium, pl 4.7 3.3 - 4.9 mmol/L [facility] Chloride 101 97 - 110 mmol/L [facility] CO2 37(H) 22 - 32 mmol/L [facility] Anion gap 8 2 - 15 mmol/L [facility] BUN 24 6 - 25 mg/dL [facility] Creatinine 0.55(L) 0.60 - 1.10 mg/dL [facility] Glucose 156 70 - 199 mg/dL [facility] Comment: Interpretive Data Fasting glucose >/= 126 mg/dl is diagnostic for diabetes. Fasting is defined as no caloric intake for at least 8 hours. Fasting glucose between 100 mg/dl to 125 mg/dl is diagnostic of prediabetes. In a patient with classic symptoms of hyperglycemia or hyperglycemic crisis, a random glucose >/= 200 mg/dl is diagnostic for diabetes. In the absence of unequivocal hyperglycemia, results should be confirmed by repeat testing. The classification and Diagnosis of Diabetes Diabetes Care 202; 46: S19-S40. Current interpretive data was last revised 2022. Calcium 8.8 8.5 - 10.3 mg/dL [facility] Blood 11/26/2024 9:00 PM ESTHETICIAN MAKEUP ARTIST 11/26/2024 9:50 PM ESTHETICIAN MAKEUP ARTIST Manisha Williamson NP LAB BLOOD ORDERABLES Final Result Performing Organization Address [facility] Co de Phone Number [facility] [place] [address] * (ABNORMAL) POCT glucose (11/26/2024 8:11 PM ESTHETICIAN MAKEUP ARTIST) Glucose, POC 232(H) 70 - 199 mg/dL Blood 11/26/2024 8:11 PM ESTHETICIAN MAKEUP ARTIST 11/26/2024 8:11 PM ESTHETICIAN MAKEUP ARTIST Result [facility] Hesham Madsen MD LAB POCT ORDERABLES - DEVICE Final Result Performing Organization Address [facility] Co de Phone Number [facility] Department [place] [address] * POCT glucose (11/26/2024 4:58 PM ESTHETICIAN MAKEUP ARTIST) Glucose, POC 144 70 - 199 mg/dL Blood 11/26/2024 4:58 PM ESTHETICIAN MAKEUP ARTIST 11/26/2024 4:58 PM ESTHETICIAN MAKEUP ARTIST Hesham Madsen MD LAB POCT ORDERABLES - DEVICE Final Result Performing Organization Address City/[facility] Co de Phone Number [facility] [place] [address] * (ABNORMAL) POCT glucose (11/26/2024 11:50 AM ESTHETICIAN MAKEUP ARTIST) Glucose, POC 273(H) 70 - 199 mg/dL Blood 11/26/2024 11:5 0 AM ESTHETICIAN MAKEUP ARTIST 11/26/2024 11:50 AM ESTHETICIAN MAKEUP ARTIST us Hesham Madsen MD LAB POCT ORDERABLES - DEVICE Final Result Performing Organization Address [facility] Co de Phone Number [facility] [place] [address] * (ABNORMAL) POCT glucose (11/26/2024 9:56 AM ESTHETICIAN MAKEUP ARTIST) Glucose, POC 305(H) 70 - 199 mg/dL Blood 11/26/2024 9:56 AM ESTHETICIAN MAKEUP ARTIST 11/26/2024 9:56 AM ESTHETICIAN MAKEUP ARTIST Hesham Madsen MD LAB POCT ORDERABLES - DEVICE Final Result Performing Organization Address [facility] de Phone Number [facility] [place] [address] * (ABNORMAL) POCT glucose (11/26/2024 8:08 AM ESTHETICIAN MAKEUP ARTIST) Glucose, POC 381(H) 70 - 199 mg/dL Blood 11/26/2024 8:08 AM ESTHETICIAN MAKEUP ARTIST 11/26/2024 8:08 AM ESTHETICIAN MAKEUP ARTIST us Hesham Madsen MD LAB POCT ORDERABLES - DEVICE Final Result Performing Organization Address [facility] Co de Phone Number [facility] Department [place] [address] * POCT glucose (11/26/2024 4:08 AM ESTHETICIAN MAKEUP ARTIST) Glucose, POC 164 70 - 199 mg/dL Blood 11/26/2024 4:08 AM ESTHETICIAN MAKEUP ARTIST 11/26/2024 4:08 AM ESTHETICIAN MAKEUP ARTIST us Hesham Madsen MD LAB POCT ORDERABLES - DEVICE Final Result Performing Organization Address [facility] Co de Phone Number [facility] [place] [address] * (ABNORMAL) POCT glucose (11/26/2024 12:28 AM ESTHETICIAN MAKEUP ARTIST) Glucose, POC 223(H) 70 - 199 mg/dL Blood 11/26/2024 12:2 8 AM ESTHETICIAN MAKEUP ARTIST 11/26/2024 12:28 AM ESTHETICIAN MAKEUP ARTIST Hesham Madsen MD LAB POCT ORDERABLES - DEVICE Final Result [facility] [place] [address] * (ABNORMAL) Urinalysis reflex to microscopic and culture Urine (11/26/2024 12:16 AM ESTHETICIAN MAKEUP ARTIST) Color, ur Yellow Yellow Clarity, ur Clear Clear [facility] Specific gravity, ur 1.030 1.003 - 1.030 [facility] pH, urine 6.5 [facility] Comment: Interpretive Data U rine pH is affected by diet, medications, systemic acid-base disturbances, and renal tubular function. pH may affect urinary stone formation. For example, urine pH below 6.0 may help reduce the tendency for calcium phosphate stones and pH greater than 6.0 may reduce the tendency for uric acid stone formation. Source: [facility] Current Interpretive Data was last revised on 2017 Protein, ur ql 1+(A) Negative [facility] Glucose, ur ql 4+(A) Negative [facility] Ketones, ur Trace Negative [facility] [facility] Bilirubin, ur Negative Negative [facility] Blood, ur Negative Negative [facility] Urobilinogen, ur <2.0 <2.0 mg/dL [facility] Nitrite, ur Negative Negative [facility] Leukocyte esterase, ur 1+(A) Negative [facility] UA reflex comment Reflex to microscopic UA will be performed. [facility] Urine 11/26/2024 12:1 6 AM ESTHETICIAN MAKEUP ARTIST 11/26/2024 1:20 AM ESTHETICIAN MAKEUP ARTIST Hesham Madsen MD LAB MICROBIOLOGY - GENERAL O RDERABLES Final Result [facility] Department [place] [address] * (ABNORMAL) Urinalysis, microscopic only (11/26/2024 12:16 AM ESTHETICIAN MAKEUP ARTIST) WBC, ur 0-5 0 - 5 /HPF RBC, ur 3-5(A) 0 - 2 /HPF [facility] Epithelial cells, squamous, ur 1-5 0 - 5 /HPF [facility] Bacteria, ur Trace(A) [facility] Mucous, ur Present(A) [facility] Calcium oxalate crystals, ur 2+(A) [facility] Hyaline casts, ur 1-5 0 - 10 /LPF [facility] Culture Reflex Comment Reflex conditions for urine culture (WBC >10) not met. [facility] Urine 11/26/2024 12:1 6 AM ESTHETICIAN MAKEUP ARTIST 11/26/2024 1:20 AM ESTHETICIAN MAKEUP ARTIST Hesham Madsen MD LAB URINE ORDERABLES Final R esult Performing Organization Address [facility] Co de Phone Number [facility] Department [place] [address] * eGFR (11/26/2024 12:10 AM ESTHETICIAN MAKEUP ARTIST) eGFR >90 >=60 mL/min/1. 73 m2 Comment: Interpretive Data Reference Interval Normal >/= 90 mL/min/1.73m2 Mildly decreased* 60 - 89 mL/min/1.73m2 Mildly to moderately decreased 45 - 59 mL/min/1.73m2 Moderately to severely decreased 30 - 44 mL/min/1.73m2 Severely decreased 15 - 29 mL/min/1.73m2 Kidney Failure < 15 mL/min/1.73m2 *Relative to young adult level Estimated glomerular filtration rate is determined by the 2020 CKD-EPI equation recommended by the National Kidney Foundation (A Unifying Approach to GFR Estimation: Recommendations of the NKF-ASK Task Force on Reassessing the Inclusion of Race in Diagnosing Kidney Disease, JASN 2020). The CKD-EPI equation should not be used for patients with unstable renal function and has not been validated in children and those over 70. Current interpretive data was last reviewed 2021. Blood 11/26/2024 12:1 0 AM ESTHETICIAN MAKEUP ARTIST 11/26/2024 1:23 AM ESTHETICIAN MAKEUP ARTIST Manisha Williamson STOVE TENDER LAB BLOOD ORDERABLES Final Result [facility] Department [place] [address] * Differential, auto (11/26/2024 12:10 AM ESTHETICIAN MAKEUP ARTIST) Neutrophil abs 6.0 1.5 - 6.5 K/cumm Imm gran abs 0.1 0.0 - 0.1 K/cumm [facility] Lymphocyte abs 1.3 0.8 - 3.3 K/cumm [facility] Monocyte abs 0.7 0.2 - 0.8 K/cumm [facility] Eosinophil abs 0.0 0.0 - 0.5 K/cumm [facility] Basophil abs 0.0 0.0 - 0.1 K/cumm [facility] Neutrophil pct 73.8 % [facility] Comment: Interpretive Data Percent cell count reference ranges are not reported, since discordance with absolute values may lead to misinterpretation of CBC data. Current Interpretive Data was last revised on 2018. Imm gran pct 1.2 % [facility] Comment: Interpretive Data Percent cell count reference ranges are not reported, since discordance with absolute values may lead to misinterpretation of CBC data. Current Interpretive Data was last revised on 2018. Lymphocyte pct 15.7 % [facility] Comment: Interpretive Data Percent cell count reference ranges are not reported, since discordance with absolute values may lead to misinterpretation of CBC data. Current Interpretive Data was last revised on 2018. Monocyte pct 9.1 % [facility] Comment: Interpretive Data Percent cell count reference ranges are not reported, since discordance with absolute values may lead to misinterpretation of CBC data. Current Interpretive Data was last revised on 2018. Eosinophil pct 0.1 % [facility] Comment: Interpretive Data Percent cell count reference ranges are not reported, since discordance with absolute values may lead to misinterpretation of CBC data. Current Interpretive Data was last revised on 2018. Basophil pct 0.1 % [facility] Comment: Interpretive Data Percent cell count reference ranges are not reported, since discordance with absolute values may lead to misinterpretation of CBC data. Current Interpretive Data was last revised on 2018. Blood 11/26/2024 12:1 0 AM ESTHETICIAN MAKEUP ARTIST 11/26/2024 1:23 AM ESTHETICIAN MAKEUP ARTIST Manisha Williamson NP LAB BLOOD ORDERABLES Final Result [facility] Department [place] [address] * (ABNORMAL) CBC with auto differential (11/26/2024 12:10 AM ESTHETICIAN MAKEUP ARTIST) WBC 8.1 3.8 - 9.9 K/cumm Hgb 9.2(L) 11.9 - 15.5 g/dL [facility] Hct 34.0(L) 35.6 - 45.5 % [facility] Plt 375 150 - 400 K/cumm [facility] MPV 10.2 9.1 - 12.3 fL [facility] RBC 4.10 3.90 - 5.20 M/cumm [facility] MCV 82.9 81.3 - 96.4 fL [facility] MCH 22.4(L) 27.1 - 33.3 pg [facility] MCHC 27.1(L) 32.3 - 35.7 g/dL [facility] RDW CV 24.0(H) 11.1 - 14.9 % [facility] RDW SD 71.1(H) 35.7 - 48.1 fL [facility] NRBC abs 0.00 0.00 - 0.01 K/cumm [facility] Blood 11/26/2024 12:1 0 AM ESTHETICIAN MAKEUP ARTIST 11/26/2024 1:23 AM ESTHETICIAN MAKEUP ARTIST Manisha Williamson NP LAB BLOOD ORDERABLES Final Result Performing Organization Address [facility] Co de Phone Number [facility] Department [place] [address] * (ABNORMAL) Protime-INR (11/26/2024 12:10 AM ESTHETICIAN MAKEUP ARTIST) PT 26.5(H) 9.7 - 13.0 sec INR 2.41(H) 0.90 - 1.20 [facility] Comment: Interpretive data Oral anticoagulant therapeutic ranges: Venous thromboembolism prophylaxis or treatment: 2.0-3.0 CARDIOLOGY Standard range: 2.0-3.0 High-intensity range: 2.5-3.5 Refer to indication-specific guidelines for appropriate target ranges for prosthetic heart valve replacement. Current interpretive data was last revised on 2019. Blood 11/26/2024 12:1 0 AM ESTHETICIAN MAKEUP ARTIST 11/26/2024 1:47 AM ESTHETICIAN MAKEUP ARTIST Hesham Madsen MD LAB BLOOD ORDERABLES Final R esult Performing Organization Address [facility] Co de Phone Number [facility] Department [place] [address] * (ABNORMAL) Basic metabolic panel (11/26/2024 12:10 AM ESTHETICIAN MAKEUP ARTIST) Sodium 146(H) 135 - 145 mmol/L Potassium, pl 3.0(L) 3.3 - 4.9 mmol/L [facility] Chloride 102 97 - 110 mmol/L [facility] CO2 37(H) 22 - 32 mmol/L [facility] Anion gap 7 2 - 15 mmol/L [facility] BUN 22 6 - 25 mg/dL [facility] Creatinine 0.65 0.60 - 1.10 mg/dL [facility] Glucose 201(H) 70 - 199 mg/dL [facility] Comment: Interpretive Data Fasting glucose >/= 126 mg/dl is diagnostic for diabetes. Fasting is defined as no caloric intake for at least 8 hours. Fasting glucose between 100 mg/dl to 125 mg/dl is diagnostic of prediabetes. In a patient with classic symptoms of hyperglycemia or hyperglycemic crisis, a random glucose >/= 200 mg/dl is diagnostic for diabetes. In the absence of unequivocal hyperglycemia, results should be confirmed by repeat testing. The classification and Diagnosis of Diabetes Diabetes Care 2021; 46: S19-S40. Current interpretive data was last revised 2022. Calcium 8.8 8.5 - 10.3 mg/dL [facility] Blood 11/26/2024 12:1 0 AM ESTHETICIAN MAKEUP ARTIST 11/26/2024 1:23 AM ESTHETICIAN MAKEUP ARTIST Manisha Williamson NP LAB BLOOD ORDERABLES Final Result Performing Organization Address [facility] Co de Phone Number [facility] Department [place] [address] * (ABNORMAL) POCT glucose (11/25/2024 10:40 PM ESTHETICIAN MAKEUP ARTIST) Glucose, POC 234(H) 70 - 199 mg/dL Blood 11/25/2024 10:4 0 PM ESTHETICIAN MAKEUP ARTIST 11/25/2024 10:40 PM ESTHETICIAN MAKEUP ARTIST Hesham Madsen MD LAB POCT ORDERABLES - DEVICE Final Result [facility] Department [place] [address] * (ABNORMAL) POCT glucose (11/25/2024 9:37 PM ESTHETICIAN MAKEUP ARTIST) Glucose, POC 287(H) 70 - 199 mg/dL Comment:Glu2: RN/MD Notified Glucose comment 1 Glu2: RN/MD Notified [facility] Blood 11/25/2024 9:37 PM ESTHETICIAN MAKEUP ARTIST 11/25/2024 9:37 PM ESTHETICIAN MAKEUP ARTIST us Hesham Madsen MD LAB POCT ORDERABLES - DEVICE Final Result Performing Organization Address [facility] de Phone Number [facility] [place] [address] * (ABNORMAL) POCT glucose (11/25/2024 8:11 PM ESTHETICIAN MAKEUP ARTIST) Glucose, POC 351(H) 70 - 199 mg/dL Blood 11/25/2024 8:11 PM ESTHETICIAN MAKEUP ARTIST 11/25/2024 8:11 PM ESTHETICIAN MAKEUP ARTIST us Hesham Madsen MD LAB POCT ORDERABLES - DEVICE Final Result Performing Organization Address [facility] Phone Number [facility] [place] [address] * (ABNORMAL) POCT glucose (11/25/2024 5:09 PM ESTHETICIAN MAKEUP ARTIST) Glucose, POC 223(H) 70 - 199 mg/dL Blood 11/25/2024 5:09 PM ESTHETICIAN MAKEUP ARTIST 11/25/2024 5:09 PM ESTHETICIAN MAKEUP ARTIST Result [facility] us Hesham Madsen MD LAB POCT ORDERABLES - DEVICE Final Result Performing Organization Address [facility] [place] [address] * (ABNORMAL) POCT glucose (11/25/2024 2:32 PM ESTHETICIAN MAKEUP ARTIST) Glucose, POC 270(H) 70 - 199 mg/dL Blood 11/25/2024 2:32 PM ESTHETICIAN MAKEUP ARTIST 11/25/2024 2:32 PM ESTHETICIAN MAKEUP ARTIST us Hesham Madsen MD LAB POCT ORDERABLES - DEVICE Final Result Performing Organization Address [facility]/State/ZIP Co de Phone Number ALLY WOODARD [facility] Department [place] [address] * (ABNORMAL) POCT glucose (11/25/2024 11:40 AM ESTHETICIAN MAKEUP ARTIST) Glucose, POC 324(H) 70 - 199 mg/dL Blood 11/25/2024 11:4 0 AM ESTHETICIAN MAKEUP ARTIST 11/25/2024 11:40 AM ESTHETICIAN MAKEUP ARTIST Hesham Madsen MD LAB POCT ORDERABLES - DEVICE Final Result [facility] [place] [address] * XR Chest 1 View (11/25/2024 9:35 AM ESTHETICIAN MAKEUP ARTIST) Anatomical Region Laterality Modality Body, Chest N/A Computed Radiogr aphy 11/25/2024 11:5 8 AM ESTHETICIAN MAKEUP ARTIST Impressions 11/25/2024 11:59 AM ESTHETICIAN MAKEUP ARTIST Comparison is made to radiograph dated 11/22/2024. Single lead cardiac pacer with lead overlying the right ventricle. Hypoglossal nerve stimulator with generator overlying the right chest and leads overlying the right neck. Cervical fusion instrumentation in place. Partially imaged thoracolumbar spinal fusion instrumentation. Multilevel vertebroplasty changes. Partially imaged left humeral head screws. Small lung volumes and mild bibasilar atelectasis. No pneumothorax or pleural effusion. Stable cardiac mediastinal silhouette. Dictated by: Mike Brown MD The radiology attending physician has personally reviewed this study, and had reviewed and/or edited this written report and agrees with it. Electronically signed by: Nereyda Medeiros M.D. Narrative 11/25/2024 11:59 AM ESTHETICIAN MAKEUP ARTIST EXAMINATION: 1 view chest radiograph Procedure Note Nereyda Medeiros MD - 11/25/2024 EXAMINATION: 1 view chest radiograph IMPRESSION: Comparison is made to radiograph dated 11/22/2024. Single lead cardiac pacer with lead overlying the right ventricle. Hypoglossal nerve stimulator with generator overlying the right chest and leads overlying the right neck. Cervical fusion instrumentation in place. Partially imaged thoracolumbar spinal fusion instrumentation. Multilevel vertebroplasty changes. Partially imaged left humeral head screws. Small lung volumes and mild bibasilar atelectasis. No pneumothorax or pleural effusion. Stable cardiac mediastinal silhouette. Dictated by: Mike Brown MD The radiology attending physician has personally reviewed this study, and had reviewed and/or edited this written report and agrees with it. Electronically signed by: Nereyda Medeiros M.D. Ines Purdy STOVE TENDER IMG XR PROCEDURES Fin al Result * (ABNORMAL) POCT glucose (11/25/2024 7:51 AM ESTHETICIAN MAKEUP ARTIST) Pathologist [facility] Glucose, POC 221(H) 70 - 199 mg/dL Blood 11/25/2024 7:51 AM ESTHETICIAN MAKEUP ARTIST 11/25/2024 7:51 AM ESTHETICIAN MAKEUP ARTIST Hesham Madsen MD LAB POCT ORDERABLES - DEVICE Final Result [facility] Department [place] [address] * eGFR (11/24/2024 10:08 PM ESTHETICIAN MAKEUP ARTIST) eGFR 86 >=60 mL/min/1. 73 m2 Comment: Interpretive Data Reference Interval Normal >/= 90 mL/min/1.73m2 Mildly decreased* 60 - 89 mL/min/1.73m2 Mildly to moderately decreased 45 - 59 mL/min/1.73m2 Moderately to severely decreased 30 - 44 mL/min/1.73m2 Severely decreased 15 - 29 mL/min/1.73m2 Kidney Failure < 15 mL/min/1.73m2 *Relative to young adult level Estimated glomerular filtration rate is determined by the 2020 CKD-EPI equation recommended by the National Kidney Foundation (A Unifying Approach to GFR Estimation: Recommendations of the NKF-ASK Task Force on Reassessing the Inclusion of Race in Diagnosing Kidney Disease, JASN 2020). The CKD-EPI equation should not be used for patients with unstable renal function and has not been validated in children and those over 70. Current interpretive data was last reviewed 2021. Blood 11/24/2024 10:0 8 PM ESTHETICIAN MAKEUP ARTIST 11/24/2024 10:46 PM ESTHETICIAN MAKEUP ARTIST Manisha Williamson NP LAB BLOOD ORDERABLES Final Result [facility] Department [place] [address] * (ABNORMAL) Differential, auto (11/24/2024 10:08 PM ESTHETICIAN MAKEUP ARTIST) Neutrophil abs 6.8(H) 1.5 - 6.5 K/cumm Imm gran abs 0.1 0.0 - 0.1 K/cumm [facility] Lymphocyte abs 1.2 0.8 - 3.3 K/cumm [facility] Monocyte abs 0.7 0.2 - 0.8 K/cumm [facility] Eosinophil abs 0.0 0.0 - 0.5 K/cumm [facility] Basophil abs 0.0 0.0 - 0.1 K/cumm [facility] Neutrophil pct 77.4 % [facility] Comment: Interpretive Data Percent cell count reference ranges are not reported, since discordance with absolute values may lead to misinterpretation of CBC data. Current Interpretive Data was last revised on 2018. Imm gran pct 1.2 % [facility] Comment: Interpretive Data Percent cell count reference ranges are not reported, since discordance with absolute values may lead to misinterpretation of CBC data. Current Interpretive Data was last revised on 2018. Lymphocyte pct 13.6 % [facility] Comment: Interpretive Data Percent cell count reference ranges are not reported, since discordance with absolute values may lead to misinterpretation of CBC data. Current Interpretive Data was last revised on 2018. Monocyte pct 7.6 % [facility] Comment: Interpretive Data Percent cell count reference ranges are not reported, since discordance with absolute values may lead to misinterpretation of CBC data. Current Interpretive Data was last revised on 2018. Eosinophil pct 0.1 % [facility] Comment: Interpretive Data Percent cell count reference ranges are not reported, since discordance with absolute values may lead to misinterpretation of CBC data. Current Interpretive Data was last revised on 2018. Basophil pct 0.1 % [facility] Comment: Interpretive Data Percent cell count reference ranges are not reported, since discordance with absolute values may lead to misinterpretation of CBC data. Current Interpretive Data was last revised on 2018. Blood 11/24/2024 10:0 8 PM ESTHETICIAN MAKEUP ARTIST 11/24/2024 10:46 PM ESTHETICIAN MAKEUP ARTIST Manisha Williamson NP LAB BLOOD ORDERABLES Final Result [facility] Department [place] [address] * (ABNORMAL) CBC with auto differential (11/24/2024 10:08 PM ESTHETICIAN MAKEUP ARTIST) WBC 8.8 3.8 - 9.9 K/cumm Hgb 10.3(L) 11.9 - 15.5 g/dL [facility] Hct 38.0 35.6 - 45.5 % [facility] Plt 459(H) 150 - 400 K/cumm [facility] MPV 10.3 9.1 - 12.3 fL [facility] RBC 4.53 3.90 - 5.20 M/cumm [facility] MCV 83.9 81.3 - 96.4 fL [facility] MCH 22.7(L) 27.1 - 33.3 pg [facility] MCHC 27.1(L) 32.3 - 35.7 g/dL [facility] RDW CV 24.4(H) 11.1 - 14.9 % [facility] RDW SD 72.6(H) 35.7 - 48.1 fL [facility] NRBC abs 0.03(H) 0.00 - 0.01 K/cumm [facility] Blood 11/24/2024 10:0 8 PM ESTHETICIAN MAKEUP ARTIST 11/24/2024 10:46 PM ESTHETICIAN MAKEUP ARTIST Manisha Williamson NP LAB BLOOD ORDERABLES Final Result Performing Organization Address [facility] Co de Phone Number [facility] Department [place] [address] * (ABNORMAL) Protime-INR (11/24/2024 10:08 PM ESTHETICIAN MAKEUP ARTIST) [facility] PT 22.3(H) 9.7 - 13.0 sec INR 2.04(H) 0.90 - 1.20 [facility] Comment: Interpretive data Oral anticoagulant therapeutic ranges: Venous thromboembolism prophylaxis or treatment: 2.0-3.0 CARDIOLOGY Standard range: 2.0-3.0 High-intensity range: 2.5-3.5 Refer to indication-specific guidelines for appropriate target ranges for prosthetic heart valve replacement. Current interpretive data was last revised on 2019. Blood 11/24/2024 10:0 8 PM ESTHETICIAN MAKEUP ARTIST 11/24/2024 10:42 PM ESTHETICIAN MAKEUP ARTIST Hesham Madsen MD LAB BLOOD ORDERABLES Final R esult Performing Organization Address [facility] Co de Phone Number [facility] Department [place] [address] * (ABNORMAL) Basic metabolic panel (11/24/2024 10:08 PM ESTHETICIAN MAKEUP ARTIST) [facility] Sodium 145 135 - 145 mmol/L Potassium, pl 3.8 3.3 - 4.9 mmol/L [facility] Chloride 97 97 - 110 mmol/L [facility] CO2 36(H) 22 - 32 mmol/L [facility] Anion gap 12 2 - 15 mmol/L [facility] BUN 28(H) 6 - 25 mg/dL [facility] Creatinine 0.78 0.60 - 1.10 mg/dL [facility] Glucose 243(H) 70 - 199 mg/dL [facility] Comment: Interpretive Data Fasting glucose >/= 126 mg/dl is diagnostic for diabetes. Fasting is defined as no caloric intake for at least 8 hours. Fasting glucose between 100 mg/dl to 125 mg/dl is diagnostic of prediabetes. In a patient with classic symptoms of hyperglycemia or hyperglycemic crisis, a random glucose >/= 200 mg/dl is diagnostic for diabetes. In the absence of unequivocal hyperglycemia, results should be confirmed by repeat testing. The classification and Diagnosis of Diabetes Diabetes Care 2021; 46: S19-S40. Current interpretive data was last revised 2022. Calcium 9.0 8.5 - 10.3 mg/dL [facility] Blood 11/24/2024 10:0 8 PM ESTHETICIAN MAKEUP ARTIST 11/24/2024 10:46 PM ESTHETICIAN MAKEUP ARTIST Manisha Williamson NP LAB BLOOD ORDERABLES Final Result Performing Organization Address [facility] Co de Phone Number [facility] Department [place] [address] * (ABNORMAL) POCT glucose (11/24/2024 7:52 PM ESTHETICIAN MAKEUP ARTIST) Glucose, POC 317(H) 70 - 199 mg/dL Comment:Glu2: RN/MD Notified Glucose comment 1 Glu2: RN/MD Notified [facility] Blood 11/24/2024 7:52 PM ESTHETICIAN MAKEUP ARTIST 11/24/2024 7:52 PM ESTHETICIAN MAKEUP ARTIST Result [facility] Hesham Madsen MD LAB POCT ORDERABLES - DEVICE Final Result Performing Organization Address [facility] Co de Phone Number [facility] Department [place] [place] [address] * POCT glucose (11/24/2024 5:06 PM ESTHETICIAN MAKEUP ARTIST) Glucose, POC 136 70 - 199 mg/dL Blood 11/24/2024 5:06 PM ESTHETICIAN MAKEUP ARTIST 11/24/2024 5:06 PM ESTHETICIAN MAKEUP ARTIST Hesham Madsen MD LAB POCT ORDERABLES - DEVICE Final Result Performing Organization Address [facility] [place] [address] * POCT glucose (11/24/2024 4:01 PM ESTHETICIAN MAKEUP ARTIST) Glucose, POC 151 70 - 199 mg/dL Blood 11/24/2024 4:01 PM ESTHETICIAN MAKEUP ARTIST 11/24/2024 4:01 PM ESTHETICIAN MAKEUP ARTIST Result [facility] Hesham Masden MD LAB POCT ORDERABLES - DEVICE Final Result Performing Organization Address [facility] [place] [address] * (ABNORMAL) POCT glucose (11/24/2024 3:01 PM ESTHETICIAN MAKEUP ARTIST) Glucose, POC 242(H) 70 - 199 mg/dL Blood 11/24/2024 3:01 PM ESTHETICIAN MAKEUP ARTIST 11/24/2024 3:01 PM ESTHETICIAN MAKEUP ARTIST Result [facility] Hesham Madsen MD LAB POCT ORDERABLES - DEVICE Final Result Performing Organization Address [facility] de Phone Number [facility] [place] [address] * (ABNORMAL) POCT glucose (11/24/2024 1:57 PM ESTHETICIAN MAKEUP ARTIST) Glucose, POC 384(H) 70 - 199 mg/dL Blood 11/24/2024 1:57 PM ESTHETICIAN MAKEUP ARTIST 11/24/2024 1:57 PM ESTHETICIAN MAKEUP ARTIST Result [facility] Hesham Madsen MD LAB POCT ORDERABLES - DEVICE Final Result Performing Organization Address [facility] Co de Phone Number [facility] [place] [address] * (ABNORMAL) POCT glucose (11/24/2024 12:16 PM ESTHETICIAN MAKEUP ARTIST) Glucose, POC 305(H) 70 - 199 mg/dL Comment:Glu2: RN/MD Notified Glucose comment 1 Glu2: RN/MD Notified [facility] Blood 11/24/2024 12:1 6 PM ESTHETICIAN MAKEUP ARTIST 11/24/2024 12:16 PM ESTHETICIAN MAKEUP ARTIST Hesham Madsen MD LAB POCT ORDERABLES - DEVICE Final Result [facility] Department [place] [address] * (ABNORMAL) POCT glucose (11/24/2024 7:25 AM ESTHETICIAN MAKEUP ARTIST) Glucose, POC 231(H) 70 - 199 mg/dL Blood 11/24/2024 7:25 AM ESTHETICIAN MAKEUP ARTIST 11/24/2024 7:25 AM ESTHETICIAN MAKEUP ARTIST Hesham Madsen MD LAB POCT ORDERABLES - DEVICE Final Result Performing Organization Address City/[facility]/ZIP Co de Phone Number [facility] Department [place] [address] * eGFR (11/23/2024 10:31 PM ESTHETICIAN MAKEUP ARTIST) eGFR >90 >=60 mL/min/1. 73 m2 Comment: Interpretive Data Reference Interval Normal >/= 90 mL/min/1.73m2 Mildly decreased* 60 - 89 mL/min/1.73m2 Mildly to moderately decreased 45 - 59 mL/min/1.73m2 Moderately to severely decreased 30 - 44 mL/min/1.73m2 Severely decreased 15 - 29 mL/min/1.73m2 Kidney Failure < 15 mL/min/1.73m2 *Relative to young adult level Estimated glomerular filtration rate is determined by the 2020 CKD-EPI equation recommended by the National Kidney Foundation (A Unifying Approach to GFR Estimation: Recommendations of the NKF-ASK Task Force on Reassessing the Inclusion of Race in Diagnosing Kidney Disease, CORNELSKeaton 2020). The CKD-EPI equation should not be used for patients with unstable renal function and has not been validated in children and those over 70. Current interpretive data was last reviewed 2021. Blood 11/23/2024 10:3 1 PM ESTHETICIAN MAKEUP ARTIST 11/23/2024 11:38 PM ESTHETICIAN MAKEUP ARTIST Manisha Williamson STOVE TENDER LAB BLOOD ORDERABLES Final Result [facility] Department [place] [address] * Differential, auto (11/23/2024 10:31 PM ESTHETICIAN MAKEUP ARTIST) Neutrophil abs 5.7 1.5 - 6.5 K/cumm Imm gran abs 0.1 0.0 - 0.1 K/cumm [facility] Lymphocyte abs 1.3 0.8 - 3.3 K/cumm [facility] Monocyte abs 0.8 0.2 - 0.8 K/cumm [facility] Eosinophil abs 0.0 0.0 - 0.5 K/cumm [facility] Basophil abs 0.0 0.0 - 0.1 K/cumm [facility] Neutrophil pct 71.7 % [facility] Comment: Interpretive Data Percent cell count reference ranges are not reported, since discordance with absolute values may lead to misinterpretation of CBC data. Current Interpretive Data was last revised on 2018. Imm gran pct 1.4 % [facility] Comment: Interpretive Data Percent cell count reference ranges are not reported, since discordance with absolute values may lead to misinterpretation of CBC data. Current Interpretive Data was last revised on 2018. Lymphocyte pct 16.7 % [facility] Comment: Interpretive Data Percent cell count reference ranges are not reported, since discordance with absolute values may lead to misinterpretation of CBC data. Current Interpretive Data was last revised on 2018. Monocyte pct 10.1 % [facility] Comment: Interpretive Data Percent cell count reference ranges are not reported, since discordance with absolute values may lead to misinterpretation of CBC data. Current Interpretive Data was last revised on 2018. Eosinophil pct 0.1 % [facility] Comment: Interpretive Data Percent cell count reference ranges are not reported, since discordance with absolute values may lead to misinterpretation of CBC data. Current Interpretive Data was last revised on 2018. Basophil pct 0.0 % [facility] Comment: Interpretive Data Percent cell count reference ranges are not reported, since discordance with absolute values may lead to misinterpretation of CBC data. Current Interpretive Data was last revised on 2018. Blood 11/23/2024 10:3 1 PM ESTHETICIAN MAKEUP ARTIST 11/23/2024 11:39 PM ESTHETICIAN MAKEUP ARTIST Manisha Williamson NP LAB BLOOD ORDERABLES Final Result [facility] Department [place] [address] * (ABNORMAL) CBC with auto differential (11/23/2024 10:31 PM ESTHETICIAN MAKEUP ARTIST) WBC 7.9 3.8 - 9.9 K/cumm Hgb 9.3(L) 11.9 - 15.5 g/dL [facility] Hct 35.0(L) 35.6 - 45.5 % [facility] Plt 419(H) 150 - 400 K/cumm [facility] MPV 10.4 9.1 - 12.3 fL [facility] RBC 4.22 3.90 - 5.20 M/cumm [facility] MCV 82.9 81.3 - 96.4 fL [facility] MCH 22.0(L) 27.1 - 33.3 pg [facility] MCHC 26.6(L) 32.3 - 35.7 g/dL [facility] RDW CV 24.4(H) 11.1 - 14.9 % [facility] RDW SD 72.2(H) 35.7 - 48.1 fL [facility] NRBC abs 0.02(H) 0.00 - 0.01 K/cumm [facility] Blood 11/23/2024 10:3 1 PM ESTHETICIAN MAKEUP ARTIST 11/23/2024 11:39 PM ESTHETICIAN MAKEUP ARTIST Manisha Williamson NP LAB BLOOD ORDERABLES Final Result Performing Organization Address [facility] de Phone Number [facility] Department [place] [address] * (ABNORMAL) Protime-INR (11/23/2024 10:31 PM ESTHETICIAN MAKEUP ARTIST) PT 18.4(H) 9.7 - 13.0 sec INR 1.69(H) 0.90 - 1.20 [facility] Comment: Interpretive data Oral anticoagulant therapeutic ranges: Venous thromboembolism prophylaxis or treatment: 2.0-3.0 CARDIOLOGY Standard range: 2.0-3.0 High-intensity range: 2.5-3.5 Refer to indication-specific guidelines for appropriate target ranges for prosthetic heart valve replacement. Current interpretive data was last revised on 2019. Blood 11/23/2024 10:3 1 PM ESTHETICIAN MAKEUP ARTIST 11/23/2024 11:47 PM ESTHETICIAN MAKEUP ARTIST Result [facility] Hesham Madsen MD LAB BLOOD ORDERABLES Final R esult Performing Organization Address [facility] de Phone Number [facility] Department [place] [address] * (ABNORMAL) Basic metabolic panel (11/23/2024 10:31 PM ESTHETICIAN MAKEUP ARTIST) Sodium 148(H) 135 - 145 mmol/L Potassium, pl 3.7 3.3 - 4.9 mmol/L [facility] Chloride 103 97 - 110 mmol/L [facility] CO2 35(H) 22 - 32 mmol/L [facility] Anion gap 10 2 - 15 mmol/L [facility] BUN 22 6 - 25 mg/dL [facility] Creatinine 0.51(L) 0.60 - 1.10 mg/dL [facility] Glucose 185 70 - 199 mg/dL [facility] Comment: Interpretive Data Fasting glucose >/= 126 mg/dl is diagnostic for diabetes. Fasting is defined as no caloric intake for at least 8 hours. Fasting glucose between 100 mg/dl to 125 mg/dl is diagnostic of prediabetes. In a patient with classic symptoms of hyperglycemia or hyperglycemic crisis, a random glucose >/= 200 mg/dl is diagnostic for diabetes. In the absence of unequivocal hyperglycemia, results should be confirmed by repeat testing. The classification and Diagnosis of Diabetes Diabetes Care 2021; 46: S19-S40. Current interpretive data was last revised 2022. Calcium 8.5 8.5 - 10.3 mg/dL [facility] Blood 11/23/2024 10:3 1 PM ESTHETICIAN MAKEUP ARTIST 11/23/2024 11:38 PM ESTHETICIAN MAKEUP ARTIST Manisha Williamson NP LAB BLOOD ORDERABLES Final Result Performing Organization Address [facility] Co de Phone Number [facility] Department [place] [address] * POCT glucose (11/23/2024 10:13 PM ESTHETICIAN MAKEUP ARTIST) Glucose, POC 175 70 - 199 mg/dL Blood 11/23/2024 10:1 3 PM ESTHETICIAN MAKEUP ARTIST 11/23/2024 10:13 PM ESTHETICIAN MAKEUP ARTIST Result [facility] Hesham Madsen MD LAB POCT ORDERABLES - DEVICE Final Result [facility] Department [place] [address] * (ABNORMAL) POCT glucose (11/23/2024 8:11 PM ESTHETICIAN MAKEUP ARTIST) Glucose, POC 205(H) 70 - 199 mg/dL Blood 11/23/2024 8:11 PM ESTHETICIAN MAKEUP ARTIST 11/23/2024 8:11 PM ESTHETICIAN MAKEUP ARTIST Hesham Madsen MD LAB POCT ORDERABLES - DEVICE Final Result Performing Organization Address [facility] Co de Phone Number [facility] [place] [place] [address] * (ABNORMAL) POCT glucose (11/23/2024 6:23 PM ESTHETICIAN MAKEUP ARTIST) Glucose, POC 363(H) 70 - 199 mg/dL Blood 11/23/2024 6:23 PM ESTHETICIAN MAKEUP ARTIST 11/23/2024 6:23 PM ESTHETICIAN MAKEUP ARTIST Hesham Madsen MD LAB POCT ORDERABLES - DEVICE Final Result Performing Organization Address [facility] de Phone Number [facility] [place] [address] * (ABNORMAL) POCT glucose (11/23/2024 4:35 PM ESTHETICIAN MAKEUP ARTIST) Glucose, POC 340(H) 70 - 199 mg/dL Blood 11/23/2024 4:35 PM ESTHETICIAN MAKEUP ARTIST 11/23/2024 4:35 PM ESTHETICIAN MAKEUP ARTIST Result [facility] Hesham Madsen MD LAB POCT ORDERABLES - DEVICE Final Result Performing Organization Address [facility] Co de Phone Number [facility] [place] [address] * (ABNORMAL) POCT glucose (11/23/2024 4:34 PM ESTHETICIAN MAKEUP ARTIST) Glucose, POC 365(H) 70 - 199 mg/dL Blood 11/23/2024 4:34 PM ESTHETICIAN MAKEUP ARTIST 11/23/2024 4:34 PM ESTHETICIAN MAKEUP ARTIST Result [facility] us Hesham Madsen MD LAB POCT ORDERABLES - DEVICE Final Result Performing Organization Address City/[facility] Co de Phone Number [facility] [place] [address] * (ABNORMAL) POCT glucose (11/23/2024 12:28 PM ESTHETICIAN MAKEUP ARTIST) Glucose, POC 209(H) 70 - 199 mg/dL Blood 11/23/2024 12:2 8 PM ESTHETICIAN MAKEUP ARTIST 11/23/2024 12:28 PM ESTHETICIAN MAKEUP ARTIST Hesham Madsen MD LAB POCT ORDERABLES - DEVICE Final Result [facility] Department [place] [address] * (ABNORMAL) POCT glucose (11/23/2024 8:07 AM ESTHETICIAN MAKEUP ARTIST) [facility] Glucose, POC 227(H) 70 - 199 mg/dL Blood 11/23/2024 8:07 AM ESTHETICIAN MAKEUP ARTIST 11/23/2024 8:07 AM ESTHETICIAN MAKEUP ARTIST Hesham Madsen MD LAB POCT ORDERABLES - DEVICE Final Result Performing Organization Address City/[facility]/ZIP Co de Phone Number [facility] Department [place] [address] * (ABNORMAL) POCT glucose (11/22/2024 8:03 PM ESTHETICIAN MAKEUP ARTIST) [facility] Signature Glucose, POC 324(H) 70 - 199 mg/dL Blood 11/22/2024 8:03 PM ESTHETICIAN MAKEUP ARTIST 11/22/2024 8:03 PM ESTHETICIAN MAKEUP ARTIST Hesham Madsen MD LAB POCT ORDERABLES - DEVICE Final Result Performing Organization Address City/[facility] Co de Phone Number [facility] [place] [address] * Differential, auto (11/22/2024 7:05 PM ESTHETICIAN MAKEUP ARTIST) [facility] Signature Neutrophil abs 6.0 1.5 - 6.5 K/cumm Imm gran abs 0.1 0.0 - 0.1 K/cumm [facility] Lymphocyte abs 0.9 0.8 - 3.3 K/cumm [facility] Monocyte abs 0.7 0.2 - 0.8 K/cumm [facility] Eosinophil abs 0.0 0.0 - 0.5 K/cumm [facility] Basophil abs 0.0 0.0 - 0.1 K/cumm [facility] Neutrophil pct 77.6 % [facility] Comment: Interpretive Data Percent cell count reference ranges are not reported, since discordance with absolute values may lead to misinterpretation of CBC data. Current Interpretive Data was last revised on 2018. Imm gran pct 1.2 % [facility] Comment: Interpretive Data Percent cell count reference ranges are not reported, since discordance with absolute values may lead to misinterpretation of CBC data. Current Interpretive Data was last revised on 2018. Lymphocyte pct 12.2 % [facility] Comment: Interpretive Data Percent cell count reference ranges are not reported, since discordance with absolute values may lead to misinterpretation of CBC data. Current Interpretive Data was last revised on 2018. Monocyte pct 8.8 % [facility] Comment: Interpretive Data Percent cell count reference ranges are not reported, since discordance with absolute values may lead to misinterpretation of CBC data. Current Interpretive Data was last revised on 2018. Eosinophil pct 0.1 % [facility] Comment: Interpretive Data Percent cell count reference ranges are not reported, since discordance with absolute values may lead to misinterpretation of CBC data. Current Interpretive Data was last revised on 2018. Basophil pct 0.1 % [facility] Comment: Interpretive Data Percent cell count reference ranges are not reported, since discordance with absolute values may lead to misinterpretation of CBC data. Current Interpretive Data was last revised on 2018. Blood 11/22/2024 7:05 PM ESTHETICIAN MAKEUP ARTIST 11/22/2024 8:14 PM ESTHETICIAN MAKEUP ARTIST Manisha Williamson NP LAB BLOOD ORDERABLES Final Result [facility] Department [place] [address] * (ABNORMAL) CBC with auto differential (11/22/2024 7:05 PM ESTHETICIAN MAKEUP ARTIST) [facility] WBC 7.7 3.8 - 9.9 K/cumm Hgb 9.6(L) 11.9 - 15.5 g/dL [facility] Hct 35.5(L) 35.6 - 45.5 % [facility] Plt 436(H) 150 - 400 K/cumm [facility] MPV 10.6 9.1 - 12.3 fL [facility] RBC 4.26 3.90 - 5.20 M/cumm [facility] MCV 83.3 81.3 - 96.4 fL [facility] MCH 22.5(L) 27.1 - 33.3 pg [facility] MCHC 27.0(L) 32.3 - 35.7 g/dL [facility] RDW CV 24.5(H) 11.1 - 14.9 % [facility] RDW SD 72.1(H) 35.7 - 48.1 fL [facility] NRBC abs 0.02(H) 0.00 - 0.01 K/cumm [facility] Blood 11/22/2024 7:05 PM ESTHETICIAN MAKEUP ARTIST 11/22/2024 8:14 PM ESTHETICIAN MAKEUP ARTIST Manisha Williamson NP LAB BLOOD ORDERABLES Final Result Performing Organization Address [facility]/State/ZIP Co de Phone Number [facility] Department [place] [address] * (ABNORMAL) Troponin I high-sensitivity (11/22/2024 7:04 PM ESTHETICIAN MAKEUP ARTIST) [facility] Trop I hs 61(H) <=17 ng/L Comment: Interpretive Data For further hscTnI resources including the diagnostic algorithm and an aid in interpretation, copy and paste this link: [email or web address] Current Interpretive Data last revised 2020. Blood 11/22/2024 7:04 PM ESTHETICIAN MAKEUP ARTIST 11/22/2024 8:13 PM ESTHETICIAN MAKEUP ARTIST Lizett Contreras MD LAB BLOOD ORDERABLES Fin al Result Performing Organization Address [facility] Co de Phone Number [facility] [place] [address] * eGFR (11/22/2024 7:04 PM ESTHETICIAN MAKEUP ARTIST) eGFR >90 >=60 mL/min/1. 73 m2 Comment: Interpretive Data Reference Interval Normal >/= 90 mL/min/1.73m2 Mildly decreased* 60 - 89 mL/min/1.73m2 Mildly to moderately decreased 45 - 59 mL/min/1.73m2 Moderately to severely decreased 30 - 44 mL/min/1.73m2 Severely decreased 15 - 29 mL/min/1.73m2 Kidney Failure < 15 mL/min/1.73m2 *Relative to young adult level Estimated glomerular filtration rate is determined by the 2020 CKD-EPI equation recommended by the National Kidney Foundation (A Unifying Approach to GFR Estimation: Recommendations of the NKF-ASK Task Force on Reassessing the Inclusion of Race in Diagnosing Kidney Disease, JASN 2020). The CKD-EPI equation should not be used for patients with unstable renal function and has not been validated in children and those over 70. Current interpretive data was last reviewed 2021. Blood 11/22/2024 7:04 PM ESTHETICIAN MAKEUP ARTIST 11/22/2024 7:27 PM ESTHETICIAN MAKEUP ARTIST us Hesham Madsen MD LAB BLOOD ORDERABLES Final R esult Performing Organization Address [facility] Co de Phone Number [facility] Department [place] [address] * aPTT (11/22/2024 7:04 PM ESTHETICIAN MAKEUP ARTIST) aPTT 31 28 - 38 sec Comment: Interpretive Data Heparin therapeutic range: 66.0 - 100.0 seconds. Range based on correlation with therapeutic heparin activity range of 0.3 - 0.7 Units/mL. Current interpretive data was last revised on 2023. Blood 11/22/2024 7:04 PM ESTHETICIAN MAKEUP ARTIST 11/22/2024 7:15 PM ESTHETICIAN MAKEUP ARTIST Hesham Madsen MD LAB BLOOD ORDERABLES Final R esult Performing Organization Address [facility] de Phone Number [facility] [place] [address] * Protime-INR (11/22/2024 7:04 PM ESTHETICIAN MAKEUP ARTIST) PT 11.8 9.7 - 13.0 sec INR 1.09 0.90 - 1.20 [facility] Comment: Interpretive data Oral anticoagulant therapeutic ranges: Venous thromboembolism prophylaxis or treatment: 2.0-3.0 CARDIOLOGY Standard range: 2.0-3.0 High-intensity range: 2.5-3.5 Refer to indication-specific guidelines for appropriate target ranges for prosthetic heart valve replacement. Current interpretive data was last revised on 2019. Blood 11/22/2024 7:04 PM ESTHETICIAN MAKEUP ARTIST 11/22/2024 7:15 PM ESTHETICIAN MAKEUP ARTIST Result [facility] Hesham Madsen MD LAB BLOOD ORDERABLES Final R esult Performing Organization Address [facility] de Phone Number [facility] [place] [address] * Phosphorus (11/22/2024 7:04 PM ESTHETICIAN MAKEUP ARTIST) Phosphorus, pl 2.5 2.3 - 4.5 mg/dL Blood 11/22/2024 7:04 PM ESTHETICIAN MAKEUP ARTIST 11/22/2024 7:15 PM ESTHETICIAN MAKEUP ARTIST Lizett Contreras MD LAB BLOOD ORDERABLES Fin al Result Performing Organization Address [facility]/ZIP Co de Phone Number [facility] Department [place] [address] * Magnesium (11/22/2024 7:04 PM ESTHETICIAN MAKEUP ARTIST) [facility] Magnesium 2.0 1.4 - 2.5 mg/dL Blood 11/22/2024 7:04 PM ESTHETICIAN MAKEUP ARTIST 11/22/2024 7:15 PM ESTHETICIAN MAKEUP ARTIST Lizett Contreras MD LAB BLOOD ORDERABLES Fin al Result [facility] Department [place] [address] * (ABNORMAL) Basic metabolic panel (11/22/2024 7:04 PM ESTHETICIAN MAKEUP ARTIST) [facility] Sodium 145 135 - 145 mmol/L Potassium, pl 3.7 3.3 - 4.9 mmol/L [facility] Chloride 101 97 - 110 mmol/L [facility] CO2 32 22 - 32 mmol/L [facility] Anion gap 12 2 - 15 mmol/L [facility] BUN 22 6 - 25 mg/dL [facility] Creatinine 0.49(L) 0.60 - 1.10 mg/dL [facility] Glucose 314(H) 70 - 199 mg/dL [facility] Comment: Interpretive Data Fasting glucose >/= 126 mg/dl is diagnostic for diabetes. Fasting is defined as no caloric intake for at least 8 hours. Fasting glucose between 100 mg/dl to 125 mg/dl is diagnostic of prediabetes. In a patient with classic symptoms of hyperglycemia or hyperglycemic crisis, a random glucose >/= 200 mg/dl is diagnostic for diabetes. In the absence of unequivocal hyperglycemia, results should be confirmed by repeat testing. The classification and Diagnosis of Diabetes Diabetes Care 202; 46: S19-S40. Current interpretive data was last revised 2022. Calcium 8.3(L) 8.5 - 10.3 mg/dL [facility] Blood 11/22/2024 7:04 PM ESTHETICIAN MAKEUP ARTIST 11/22/2024 7:15 PM ESTHETICIAN MAKEUP ARTIST Hesham Madsen MD LAB BLOOD ORDERABLES Final R esult Performing Organization Address [facility] Co de Phone Number [facility] [place] [address] * (ABNORMAL) POCT glucose (11/22/2024 6:56 PM ESTHETICIAN MAKEUP ARTIST) Glucose, POC 316(H) 70 - 199 mg/dL Blood 11/22/2024 6:56 PM ESTHETICIAN MAKEUP ARTIST 11/22/2024 6:56 PM ESTHETICIAN MAKEUP ARTIST Hesham Madsen MD LAB POCT ORDERABLES - DEVICE Final Result Performing Organization Address [facility] de Phone Number [facility] [place] [address] * (ABNORMAL) POCT glucose (11/22/2024 5:27 PM ESTHETICIAN MAKEUP ARTIST) Glucose, POC 225(H) 70 - 199 mg/dL Blood 11/22/2024 5:27 PM ESTHETICIAN MAKEUP ARTIST 11/22/2024 5:27 PM ESTHETICIAN MAKEUP ARTIST Hesham Madsen MD LAB POCT ORDERABLES - DEVICE Final Result Performing Organization Address [facility] de Phone Number [facility] [place] [address] * XR Chest 1 View (11/22/2024 3:32 PM ESTHETICIAN MAKEUP ARTIST) Anatomical Region Laterality Modality Body, Chest N/A Digital Radiogra phy 11/22/2024 4:33 PM ESTHETICIAN MAKEUP ARTIST Impressions 11/22/2024 5:43 PM ESTHETICIAN MAKEUP ARTIST Comparison is made to radiograph dated 11/09/2024. Left subclavian approach single lead cardiac pacer defibrillator with lead overlying the right ventricle. Interval placement of generator overlying the right chest with lead overlying the right neck. Cervical fusion instrumentation in place. Partially imaged thoracolumbar spinal fusion. Multilevel vertebroplasty changes. Cholecystectomy clips. Small lung volumes. Bibasilar atelectasis. No pneumothorax. No definite pleural effusion. Stable cardiomediastinal silhouette. Dictated by: Mike Brown MD The radiology attending physician has personally reviewed this study, and had reviewed and/or edited this written report and agrees with it. Electronically signed by: Cesar Bryan M.D. Narrative 11/22/2024 5:43 PM ESTHETICIAN MAKEUP ARTIST EXAMINATION: 1 view chest radiograph Procedure Note Cesar Bryan MD - 11/22/2024 EXAMINATION: 1 view chest radiograph IMPRESSION: Comparison is made to radiograph dated 11/09/2024. Left subclavian approach single lead cardiac pacer defibrillator with lead overlying the right ventricle. Interval placement of generator overlying the right chest with lead overlying the right neck. Cervical fusion instrumentation in place. Partially imaged thoracolumbar spinal fusion. Multilevel vertebroplasty changes. Cholecystectomy clips. Small lung volumes. Bibasilar atelectasis. No pneumothorax. No definite pleural effusion. Stable cardiomediastinal silhouette. Dictated by: Mike Brown MD The radiology attending physician has personally reviewed this study, and had reviewed and/or edited this written report and agrees with it. Electronically signed by: Cesar Bryan M.D. Manisha Williamson NP IMG XR PROCEDURES Fi nal Result * (ABNORMAL) POCT glucose (11/22/2024 2:42 PM ESTHETICIAN MAKEUP ARTIST) [facility] Signature Glucose, POC 216(H) 70 - 199 mg/dL Blood 11/22/2024 2:42 PM ESTHETICIAN MAKEUP ARTIST 11/22/2024 2:42 PM ESTHETICIAN MAKEUP ARTIST Hesham Madsen MD LAB POCT ORDERABLES - DEVICE Final Result [facility] Department [place] [address] * (ABNORMAL) POCT glucose (11/22/2024 11:57 AM ESTHETICIAN MAKEUP ARTIST) Glucose, POC 279(H) 70 - 199 mg/dL Blood 11/22/2024 11:5 7 AM ESTHETICIAN MAKEUP ARTIST 11/22/2024 11:57 AM ESTHETICIAN MAKEUP ARTIST Hesham Madsen MD LAB POCT ORDERABLES - DEVICE Final Result Performing Organization Address [facility] Co de Phone Number [facility] [place] [address] * POCT glucose (11/22/2024 8:10 AM ESTHETICIAN MAKEUP ARTIST) Glucose, POC 194 70 - 199 mg/dL Blood 11/22/2024 8:10 AM ESTHETICIAN MAKEUP ARTIST 11/22/2024 8:10 AM ESTHETICIAN MAKEUP ARTIST Result [facility] Hesham Madsen MD LAB POCT ORDERABLES - DEVICE Final Result Performing Organization Address [facility] de Phone Number [facility] [place] [address] * (ABNORMAL) aPTT (11/22/2024 12:22 AM ESTHETICIAN MAKEUP ARTIST) aPTT 96(H) 28 - 38 sec Comment: Interpretive Data Heparin therapeutic range: 66.0 - 100.0 seconds. Range based on correlation with therapeutic heparin activity range of 0.3 - 0.7 Units/mL. Current interpretive data was last revised on 2023. Blood 11/22/2024 12:2 2 AM ESTHETICIAN MAKEUP ARTIST 11/22/2024 1:07 AM ESTHETICIAN MAKEUP ARTIST Narrative [facility] - 11/22/2024 1:18 AM ESTHETICIAN MAKEUP ARTIST STAT PTT timing: - Draw 6 hours after heparin infusion initiation - Draw 6 hours after every dose change until 2 consecutive PTTs are therapeutic - Once 2 consecutive PTTs are therapeutic, obtain with daily labs until infusion is discontinued - - Restart every 6 hour lab draws and follow instructions accordingly if PTT is outside of therapeutic range Do not draw lab from IV line that is actively infusing heparin. Use the opposite arm. If arm with actively infusing heparin must be used, pause the infusion for at least 2 minutes, and draw specimen below the IV site. For patients with a central venous catheter (CVC), lab must be drawn peripherally (not from CVC). Manisha Williamson NP LAB BLOOD ORDERABLES Final Result Performing Organization Address City/[facility] Co de Phone Number [facility] Department [place] [place] [address] * eGFR (2024 10:06 PM ESTHETICIAN MAKEUP ARTIST) eGFR >90 >=60 mL/min/1. 73 m2 Comment: Interpretive Data Reference Interval Normal >/= 90 mL/min/1.73m2 Mildly decreased* 60 - 89 mL/min/1.73m2 Mildly to moderately decreased 45 - 59 mL/min/1.73m2 Moderately to severely decreased 30 - 44 mL/min/1.73m2 Severely decreased 15 - 29 mL/min/1.73m2 Kidney Failure < 15 mL/min/1.73m2 *Relative to young adult level Estimated glomerular filtration rate is determined by the 2020 CKD-EPI equation recommended by the National Kidney Foundation (A Unifying Approach to GFR Estimation: Recommendations of the NKF-ASK Task Force on Reassessing the Inclusion of Race in Diagnosing Kidney Disease, JASN 202). The CKD-EPI equation should not be used for patients with unstable renal function and has not been validated in children and those over 70. Current interpretive data was last reviewed 2021. Blood 2024 10:0 6 PM ESTHETICIAN MAKEUP ARTIST 2024 11:26 PM ESTHETICIAN MAKEUP ARTIST Manisha Williamson STOVE TENDER LAB BLOOD ORDERABLES Final Result Performing Organization Address [facility] Co de Phone Number [facility] [place] [place] [address] * Differential, auto (2024 10:06 PM ESTHETICIAN MAKEUP ARTIST) Neutrophil abs 5.6 1.5 - 6.5 K/cumm Imm gran abs 0.1 0.0 - 0.1 K/cumm [facility] Lymphocyte abs 1.4 0.8 - 3.3 K/cumm [facility] Monocyte abs 0.8 0.2 - 0.8 K/cumm [facility] Eosinophil abs 0.0 0.0 - 0.5 K/cumm [facility] Basophil abs 0.0 0.0 - 0.1 K/cumm [facility] Neutrophil pct 70.1 % [facility] Comment: Interpretive Data Percent cell count reference ranges are not reported, since discordance with absolute values may lead to misinterpretation of CBC data. Current Interpretive Data was last revised on 2018. Imm gran pct 1.0 % [facility] Comment: Interpretive Data Percent cell count reference ranges are not reported, since discordance with absolute values may lead to misinterpretation of CBC data. Current Interpretive Data was last revised on 2018. Lymphocyte pct 17.9 % [facility] Comment: Interpretive Data Percent cell count reference ranges are not reported, since discordance with absolute values may lead to misinterpretation of CBC data. Current Interpretive Data was last revised on 2018. Monocyte pct 10.6 % [facility] Comment: Interpretive Data Percent cell count reference ranges are not reported, since discordance with absolute values may lead to misinterpretation of CBC data. Current Interpretive Data was last revised on 2018. Eosinophil pct 0.3 % [facility] Comment: Interpretive Data Percent cell count reference ranges are not reported, since discordance with absolute values may lead to misinterpretation of CBC data. Current Interpretive Data was last revised on 2018. Basophil pct 0.1 % [facility] Comment: Interpretive Data Percent cell count reference ranges are not reported, since discordance with absolute values may lead to misinterpretation of CBC data. Current Interpretive Data was last revised on 2018. Blood 2024 10:0 6 PM ESTHETICIAN MAKEUP ARTIST 2024 11:29 PM ESTHETICIAN MAKEUP ARTIST Manisha Williamson STOVE TENDER LAB BLOOD ORDERABLES Final Result Performing Organization Address City/[facility]/ZIP Co de Phone Number [facility] [place] [address] * Critical Result Callback Hematology (2024 10:06 PM ESTHETICIAN MAKEUP ARTIST) Pathologist [facility] Date Notified [id number] Time Notified 5 [facility] TestName aPTT [facility] Called/Read Back Bobbi Sherine [facility] Credentials RN [facility] Called By [facility] Blood 2024 10:0 6 PM ESTHETICIAN MAKEUP ARTIST 2024 11:37 PM ESTHETICIAN MAKEUP ARTIST Manisha Williamson LAB BLOOD ORDERABLES Final Result Performing Organization Address [facility] Co de Phone Number [facility] [place] [address] * (ABNORMAL) CBC with auto differential (2024 10:06 PM ESTHETICIAN MAKEUP ARTIST) [facility] WBC 8.0 3.8 - 9.9 K/cumm Hgb 9.2(L) 11.9 - 15.5 g/dL [facility] Hct 34.7(L) 35.6 - 45.5 % [facility] Plt 440(H) 150 - 400 K/cumm [facility] MPV 10.6 9.1 - 12.3 fL [facility] RBC 4.18 3.90 - 5.20 M/cumm [facility] MCV 83.0 81.3 - 96.4 fL [facility] MCH 22.0(L) 27.1 - 33.3 pg [facility] MCHC 26.5(L) 32.3 - 35.7 g/dL [facility] RDW CV 24.4(H) 11.1 - 14.9 % [facility] RDW SD 72.4(H) 35.7 - 48.1 fL [facility] NRBC abs 0.00 0.00 - 0.01 K/cumm [facility] Blood 2024 10:0 6 PM ESTHETICIAN MAKEUP ARTIST 2024 11:29 PM ESTHETICIAN MAKEUP ARTIST Manisha Williamson NP LAB BLOOD ORDERABLES Final Result Performing Organization Address [facility] de Phone Number [facility] [place] [address] * (ABNORMAL) aPTT (2024 10:06 PM ESTHETICIAN MAKEUP ARTIST) [facility] aPTT >150(C) 28 - 38 sec Comment: No clot detected in sample.Repeated and verified. Interpretive Data Heparin therapeutic range: 66.0 - 100.0 seconds. Range based on correlation with therapeutic heparin activity range of 0.3 - 0.7 Units/mL. Current interpretive data was last revised on 2023. Blood 2024 10:0 6 PM ESTHETICIAN MAKEUP ARTIST 2024 11:29 PM ESTHETICIAN MAKEUP ARTIST Narrative [facility] - 11/22/2024 12:02 AM ESTHETICIAN MAKEUP ARTIST STAT PTT timing: - Draw 6 hours after heparin infusion initiation - Draw 6 hours after every dose change until 2 consecutive PTTs are therapeutic - Once 2 consecutive PTTs are therapeutic, obtain with daily labs until infusion is discontinued - - Restart every 6 hour lab draws and follow instructions accordingly if PTT is outside of therapeutic range Do not draw lab from IV line that is actively infusing heparin. Use the opposite arm. If arm with actively infusing heparin must be used, pause the infusion for at least 2 minutes, and draw specimen below the IV site. For patients with a central venous catheter (CVC), lab must be drawn peripherally (not from CVC). Manisha Williamson NP LAB BLOOD ORDERABLES Final Result Performing Organization Address [facility] Co de Phone Number [facility] Department [place] [address] * Protime-INR (2024 10:06 PM ESTHETICIAN MAKEUP ARTIST) Pathologist [facility] PT 11.8 9.7 - 13.0 sec INR 1.09 0.90 - 1.20 [facility] Comment: Interpretive data Oral anticoagulant therapeutic ranges: Venous thromboembolism prophylaxis or treatment: 2.0-3.0 CARDIOLOGY Standard range: 2.0-3.0 High-intensity range: 2.5-3.5 Refer to indication-specific guidelines for appropriate target ranges for prosthetic heart valve replacement. Current interpretive data was last revised on 2019. Blood 2024 10:0 6 PM ESTHETICIAN MAKEUP ARTIST 2024 11:29 PM ESTHETICIAN MAKEUP ARTIST Hesham Madsen MD LAB BLOOD ORDERABLES Final R esult [facility] Department [place] [address] * (ABNORMAL) Basic metabolic panel (2024 10:06 PM ESTHETICIAN MAKEUP ARTIST) Pathologist [facility] Sodium 146(H) 135 - 145 mmol/L Potassium, pl 3.8 3.3 - 4.9 mmol/L [facility] Chloride 105 97 - 110 mmol/L [facility] CO2 35(H) 22 - 32 mmol/L [facility] Anion gap 6 2 - 15 mmol/L [facility] BUN 19 6 - 25 mg/dL [facility] Creatinine 0.44(L) 0.60 - 1.10 mg/dL [facility] Glucose 182 70 - 199 mg/dL [facility] Comment: Interpretive Data Fasting glucose >/= 126 mg/dl is diagnostic for diabetes. Fasting is defined as no caloric intake for at least 8 hours. Fasting glucose between 100 mg/dl to 125 mg/dl is diagnostic of prediabetes. In a patient with classic symptoms of hyperglycemia or hyperglycemic crisis, a random glucose >/= 200 mg/dl is diagnostic for diabetes. In the absence of unequivocal hyperglycemia, results should be confirmed by repeat testing. The classification and Diagnosis of Diabetes Diabetes Care 2021; 46: S19-S40. Current interpretive data was last revised 2022. Calcium 8.5 8.5 - 10.3 mg/dL [facility] Blood 2024 10:0 6 PM ESTHETICIAN MAKEUP ARTIST 2024 11:26 PM ESTHETICIAN MAKEUP ARTIST Manisha Williamson NP LAB BLOOD ORDERABLES Final Result Performing Organization Address City/[facility] Co de Phone Number [facility] [place] [address] * (ABNORMAL) POCT glucose (2024 7:21 PM ESTHETICIAN MAKEUP ARTIST) Glucose, POC 352(H) 70 - 199 mg/dL Comment:Glu2: RN/MD Notified Glucose comment 1 Glu2: RN/MD Notified [facility] Blood 2024 7:21 PM ESTHETICIAN MAKEUP ARTIST 2024 7:21 PM ESTHETICIAN MAKEUP ARTIST Hesham Madsen MD LAB POCT ORDERABLES - DEVICE Final Result Performing Organization Address [facility] Co de Phone Number [facility] [place] [address] * (ABNORMAL) POCT glucose (2024 4:43 PM ESTHETICIAN MAKEUP ARTIST) Glucose, POC 281(H) 70 - 199 mg/dL Blood 2024 4:43 PM ESTHETICIAN MAKEUP ARTIST 2024 4:43 PM ESTHETICIAN MAKEUP ARTIST Hesham Madsen MD LAB POCT ORDERABLES - DEVICE Final Result Performing Organization Address City/[facility] [place] [address] * (ABNORMAL) POCT glucose (2024 12:22 PM ESTHETICIAN MAKEUP ARTIST) Glucose, POC 211(H) 70 - 199 mg/dL Blood 2024 12:2 2 PM ESTHETICIAN MAKEUP ARTIST 2024 12:22 PM ESTHETICIAN MAKEUP ARTIST us Hesham Madsen MD LAB POCT ORDERABLES - DEVICE Final Result Performing Organization Address [facility] de Phone Number [facility] [place] [address] * (ABNORMAL) POCT glucose (2024 8:06 AM ESTHETICIAN MAKEUP ARTIST) Glucose, POC 204(H) 70 - 199 mg/dL Blood 2024 8:06 AM ESTHETICIAN MAKEUP ARTIST 2024 8:06 AM ESTHETICIAN MAKEUP ARTIST us Hesham Madsen MD LAB POCT ORDERABLES - DEVICE Final Result Performing Organization Address [facility] [place] [address] * (ABNORMAL) POCT glucose (2024 3:35 AM ESTHETICIAN MAKEUP ARTIST) Glucose, POC 250(H) 70 - 199 mg/dL Comment:Glu2: RN/MD Notified Glucose comment 1 Glu2: RN/MD Notified [facility] Blood 2024 3:35 AM ESTHETICIAN MAKEUP ARTIST 2024 3:35 AM ESTHETICIAN MAKEUP ARTIST Result [facility] us Hesham Madsen MD LAB POCT ORDERABLES - DEVICE Final Result Performing Organization Address [facility] [place] [address] * (ABNORMAL) POCT glucose (2024 12:12 AM ESTHETICIAN MAKEUP ARTIST) Glucose, POC 210(H) 70 - 199 mg/dL Blood 2024 12:1 2 AM ESTHETICIAN MAKEUP ARTIST 2024 12:12 AM ESTHETICIAN MAKEUP ARTIST Hesham Madsen MD LAB POCT ORDERABLES - DEVICE Final Result Performing Organization Address [facility] Co de Phone Number ALLY WOODARD Derrick [facility] Department [place] [address] * (ABNORMAL) Troponin I high-sensitivity 6-hour (11/20/2024 10:13 PM ESTHETICIAN MAKEUP ARTIST) Trop I hs 66(H) <=17 ng/L Comment: Interpretive Data For further hscTnI resources including the diagnostic algorithm and an aid in interpretation, copy and paste this link: [email or web address] Current Interpretive Data last revised 2020. Trop I hs delta See Comment ng/L [facility] Comment:Inappropriate collec tion time to report a delta. Trop I hs pct delta See Comment % [facility] Comment:Inappropriate collec tion time to report a delta. Trop I hs interp See Comment [facility] Comment:Inappropriate collec tion time to report a delta. Blood 11/20/2024 10:1 3 PM ESTHETICIAN MAKEUP ARTIST 11/20/2024 10:49 PM ESTHETICIAN MAKEUP ARTIST Hesham Madsen MD LAB BLOOD ORDERABLES Final R esult Performing Organization Address [facility] Co de Phone Number ALLY WOODARD [facility] Department [place] [address] * eGFR (11/20/2024 10:13 PM ESTHETICIAN MAKEUP ARTIST) eGFR >90 >=60 mL/min/1. 73 m2 Comment: Interpretive Data Reference Interval Normal >/= 90 mL/min/1.73m2 Mildly decreased* 60 - 89 mL/min/1.73m2 Mildly to moderately decreased 45 - 59 mL/min/1.73m2 Moderately to severely decreased 30 - 44 mL/min/1.73m2 Severely decreased 15 - 29 mL/min/1.73m2 Kidney Failure < 15 mL/min/1.73m2 *Relative to young adult level Estimated glomerular filtration rate is determined by the 2020 CKD-EPI equation recommended by the National Kidney Foundation (A Unifying Approach to GFR Estimation: Recommendations of the NKF-ASK Task Force on Reassessing the Inclusion of Race in Diagnosing Kidney Disease, JASN 2020). The CKD-EPI equation should not be used for patients with unstable renal function and has not been validated in children and those over 70. Current interpretive data was last reviewed 2021. Blood 11/20/2024 10:1 3 PM ESTHETICIAN MAKEUP ARTIST 11/20/2024 10:50 PM ESTHETICIAN MAKEUP ARTIST us Manisha Williamson NP LAB BLOOD ORDERABLES Final Result [facility] Department [place] [address] * Differential, auto (11/20/2024 10:13 PM ESTHETICIAN MAKEUP ARTIST) Neutrophil abs 5.6 1.5 - 6.5 K/cumm Imm gran abs 0.1 0.0 - 0.1 K/cumm [facility] Lymphocyte abs 0.9 0.8 - 3.3 K/cumm [facility] Monocyte abs 0.6 0.2 - 0.8 K/cumm [facility] Eosinophil abs 0.0 0.0 - 0.5 K/cumm [facility] Basophil abs 0.0 0.0 - 0.1 K/cumm [facility] Neutrophil pct 77.4 % [facility] Comment: Interpretive Data Percent cell count reference ranges are not reported, since discordance with absolute values may lead to misinterpretation of CBC data. Current Interpretive Data was last revised on 2018. Imm gran pct 1.7 % [facility] Comment: Interpretive Data Percent cell count reference ranges are not reported, since discordance with absolute values may lead to misinterpretation of CBC data. Current Interpretive Data was last revised on 2018. Lymphocyte pct 12.3 % [facility] Comment: Interpretive Data Percent cell count reference ranges are not reported, since discordance with absolute values may lead to misinterpretation of CBC data. Current Interpretive Data was last revised on 2018. Monocyte pct 8.4 % [facility] Comment: Interpretive Data Percent cell count reference ranges are not reported, since discordance with absolute values may lead to misinterpretation of CBC data. Current Interpretive Data was last revised on 2018. Eosinophil pct 0.1 % [facility] Comment: Interpretive Data Percent cell count reference ranges are not reported, since discordance with absolute values may lead to misinterpretation of CBC data. Current Interpretive Data was last revised on 2018. Basophil pct 0.1 % [facility] Comment: Interpretive Data Percent cell count reference ranges are not reported, since discordance with absolute values may lead to misinterpretation of CBC data. Current Interpretive Data was last revised on 2018. Blood 11/20/2024 10:1 3 PM ESTHETICIAN MAKEUP ARTIST 11/20/2024 10:49 PM ESTHETICIAN MAKEUP ARTIST Manisha Williamson STOVE TENDER LAB BLOOD ORDERABLES Final Result [facility] Department [place] [address] * (ABNORMAL) CBC with auto differential (11/20/2024 10:13 PM ESTHETICIAN MAKEUP ARTIST) WBC 7.3 3.8 - 9.9 K/cumm Hgb 9.2(L) 11.9 - 15.5 g/dL [facility] Hct 34.6(L) 35.6 - 45.5 % [facility] Plt 372 150 - 400 K/cumm [facility] MPV 10.2 9.1 - 12.3 fL [facility] RBC 4.19 3.90 - 5.20 M/cumm [facility] MCV 82.6 81.3 - 96.4 fL [facility] MCH 22.0(L) 27.1 - 33.3 pg [facility] MCHC 26.6(L) 32.3 - 35.7 g/dL [facility] RDW CV 24.4(H) 11.1 - 14.9 % [facility] RDW SD 71.1(H) 35.7 - 48.1 fL [facility] NRBC abs 0.00 0.00 - 0.01 K/cumm [facility] Blood 11/20/2024 10:1 3 PM ESTHETICIAN MAKEUP ARTIST 11/20/2024 10:49 PM ESTHETICIAN MAKEUP ARTIST Manisha Williamson NP LAB BLOOD ORDERABLES Final Result Performing Organization Address City/[facility] Co de Phone Number [facility] Department [place] [address] * (ABNORMAL) aPTT (11/20/2024 10:13 PM ESTHETICIAN MAKEUP ARTIST) [facility] Signature aPTT 79(H) 28 - 38 sec Comment: Interpretive Data Heparin therapeutic range: 66.0 - 100.0 seconds. Range based on correlation with therapeutic heparin activity range of 0.3 - 0.7 Units/mL. Current interpretive data was last revised on 2023. Blood 11/20/2024 10:1 3 PM ESTHETICIAN MAKEUP ARTIST 11/20/2024 10:53 PM ESTHETICIAN MAKEUP ARTIST Narrative [facility] - 11/20/2024 11:02 PM ESTHETICIAN MAKEUP ARTIST STAT PTT timing: - Draw 6 hours after heparin infusion initiation - Draw 6 hours after every dose change until 2 consecutive PTTs are therapeutic - Once 2 consecutive PTTs are therapeutic, obtain with daily labs until infusion is discontinued - - Restart every 6 hour lab draws and follow instructions accordingly if PTT is outside of therapeutic range Do not draw lab from IV line that is actively infusing heparin. Use the opposite arm. If arm with actively infusing heparin must be used, pause the infusion for at least 2 minutes, and draw specimen below the IV site. For patients with a central venous catheter (CVC), lab must be drawn peripherally (not from CVC). Manisha Williamson NP LAB BLOOD ORDERABLES Final Result Performing Organization Address City/[facility]/ZIP Co de Phone Number [facility] Department [place] [address] * Protime-INR (11/20/2024 10:13 PM ESTHETICIAN MAKEUP ARTIST) PT 10.8 9.7 - 13.0 sec INR 1.00 0.90 - 1.20 [facility] Comment: Interpretive data Oral anticoagulant therapeutic ranges: Venous thromboembolism prophylaxis or treatment: 2.0-3.0 CARDIOLOGY Standard range: 2.0-3.0 High-intensity range: 2.5-3.5 Refer to indication-specific guidelines for appropriate target ranges for prosthetic heart valve replacement. Current interpretive data was last revised on 2019. Blood 11/20/2024 10:1 3 PM ESTHETICIAN MAKEUP ARTIST 11/20/2024 10:52 PM ESTHETICIAN MAKEUP ARTIST Hesham Madsen MD LAB BLOOD ORDERABLES Final R esult [facility] Department [place] [address] * (ABNORMAL) Basic metabolic panel (11/20/2024 10:13 PM ESTHETICIAN MAKEUP ARTIST) Pathologist [facility] Sodium 145 135 - 145 mmol/L Potassium, pl 3.2(L) 3.3 - 4.9 mmol/L [facility] Chloride 103 97 - 110 mmol/L [facility] CO2 34(H) 22 - 32 mmol/L [facility] Anion gap 8 2 - 15 mmol/L [facility] BUN 20 6 - 25 mg/dL [facility] Creatinine 0.49(L) 0.60 - 1.10 mg/dL [facility] Glucose 242(H) 70 - 199 mg/dL [facility] Comment: Interpretive Data Fasting glucose >/= 126 mg/dl is diagnostic for diabetes. Fasting is defined as no caloric intake for at least 8 hours. Fasting glucose between 100 mg/dl to 125 mg/dl is diagnostic of prediabetes. In a patient with classic symptoms of hyperglycemia or hyperglycemic crisis, a random glucose >/= 200 mg/dl is diagnostic for diabetes. In the absence of unequivocal hyperglycemia, results should be confirmed by repeat testing. The classification and Diagnosis of Diabetes Diabetes Care 2022; 46: S19-S40. Current interpretive data was last revised 2022. Calcium 8.5 8.5 - 10.3 mg/dL [facility] Blood 11/20/2024 10:1 3 PM ESTHETICIAN MAKEUP ARTIST 11/20/2024 10:50 PM ESTHETICIAN MAKEUP ARTIST Manisha Williamson NP LAB BLOOD ORDERABLES Final Result Performing Organization Address City/[facility] Co de Phone Number [facility] [place] [place] [address] * POCT glucose (11/20/2024 8:01 PM ESTHETICIAN MAKEUP ARTIST) Glucose, POC 191 70 - 199 mg/dL Blood 11/20/2024 8:01 PM ESTHETICIAN MAKEUP ARTIST 11/20/2024 8:01 PM ESTHETICIAN MAKEUP ARTIST Result [facility] Hesham Madsen MD LAB POCT ORDERABLES - DEVICE Final Result Performing Organization Address [facility] de Phone Number [facility] [place] [address] * POCT glucose (11/20/2024 4:36 PM ESTHETICIAN MAKEUP ARTIST) Glucose, POC 197 70 - 199 mg/dL Blood 11/20/2024 4:36 PM ESTHETICIAN MAKEUP ARTIST 11/20/2024 4:36 PM ESTHETICIAN MAKEUP ARTIST Result [facility] Hesham Madsen MD LAB POCT ORDERABLES - DEVICE Final Result Performing Organization Address [facility] de Phone Number [facility] [place] [address] * (ABNORMAL) aPTT (11/20/2024 2:58 PM ESTHETICIAN MAKEUP ARTIST) aPTT 68(H) 28 - 38 sec Comment: Interpretive Data Heparin therapeutic range: 66.0 - 100.0 seconds. Range based on correlation with therapeutic heparin activity range of 0.3 - 0.7 Units/mL. Current interpretive data was last revised on 2023. Blood 11/20/2024 2:58 PM ESTHETICIAN MAKEUP ARTIST 11/20/2024 3:24 PM ESTHETICIAN MAKEUP ARTIST Narrative ALLY WOODARD - 11/20/2024 3:46 PM ESTHETICIAN MAKEUP ARTIST STAT PTT timing: - Draw 6 hours after heparin infusion initiation - Draw 6 hours after every dose change until 2 consecutive PTTs are therapeutic - Once 2 consecutive PTTs are therapeutic, obtain with daily labs until infusion is discontinued - - Restart every 6 hour lab draws and follow instructions accordingly if PTT is outside of therapeutic range Do not draw lab from IV line that is actively infusing heparin. Use the opposite arm. If arm with actively infusing heparin must be used, pause the infusion for at least 2 minutes, and draw specimen below the IV site. For patients with a central venous catheter (CVC), lab must be drawn peripherally (not from CVC). Manisha Williamson NP LAB BLOOD ORDERABLES Final Result [facility] Department [place] [address] * (ABNORMAL) POCT glucose (11/20/2024 11:17 AM ESTHETICIAN MAKEUP ARTIST) Glucose, POC 276(H) 70 - 199 mg/dL Blood 11/20/2024 11:1 7 AM ESTHETICIAN MAKEUP ARTIST 11/20/2024 11:17 AM ESTHETICIAN MAKEUP ARTIST Hesham Madsen MD LAB POCT ORDERABLES - DEVICE Final Result [facility] Department [place] [place] [address] * (ABNORMAL) aPTT (11/20/2024 8:28 AM ESTHETICIAN MAKEUP ARTIST) aPTT 70(H) 28 - 38 sec Comment: Interpretive Data Heparin therapeutic range: 66.0 - 100.0 seconds. Range based on correlation with therapeutic heparin activity range of 0.3 - 0.7 Units/mL. Current interpretive data was last revised on 2023. Blood 11/20/2024 8:28 AM ESTHETICIAN MAKEUP ARTIST 11/20/2024 9:24 AM ESTHETICIAN MAKEUP ARTIST Narrative [facility]Y [facility] - 11/20/2024 9:46 AM ESTHETICIAN MAKEUP ARTIST STAT PTT timing: - Draw 6 hours after heparin infusion initiation - Draw 6 hours after every dose change until 2 consecutive PTTs are therapeutic - Once 2 consecutive PTTs are therapeutic, obtain with daily labs until infusion is discontinued - - Restart every 6 hour lab draws and follow instructions accordingly if PTT is outside of therapeutic range Do not draw lab from IV line that is actively infusing heparin. Use the opposite arm. If arm with actively infusing heparin must be used, pause the infusion for at least 2 minutes, and draw specimen below the IV site. For patients with a central venous catheter (CVC), lab must be drawn peripherally (not from CVC). Manisha Williamson NP LAB BLOOD ORDERABLES Final Result Performing Organization Address [facility] Co de Phone Number [facility] Department [place] [address] * Protime-INR (11/20/2024 8:28 AM ESTHETICIAN MAKEUP ARTIST) PT 10.7 9.7 - 13.0 sec INR 0.99 0.90 - 1.20 [facility] Comment: Interpretive data Oral anticoagulant therapeutic ranges: Venous thromboembolism prophylaxis or treatment: 2.0-3.0 CARDIOLOGY Standard range: 2.0-3.0 High-intensity range: 2.5-3.5 Refer to indication-specific guidelines for appropriate target ranges for prosthetic heart valve replacement. Current interpretive data was last revised on 2019. Blood 11/20/2024 8:28 AM ESTHETICIAN MAKEUP ARTIST 11/20/2024 9:24 AM ESTHETICIAN MAKEUP ARTIST Hesham Madsen MD LAB BLOOD ORDERABLES Final R esult Performing Organization Address City/[facility]/ZIP Co de Phone Number [facility] Department [place] [address] * POCT glucose (11/20/2024 7:44 AM ESTHETICIAN MAKEUP ARTIST) [facility] Glucose, POC 180 70 - 199 mg/dL Blood 11/20/2024 7:44 AM ESTHETICIAN MAKEUP ARTIST 11/20/2024 7:44 AM ESTHETICIAN MAKEUP ARTIST Result [facility] Hesham Madsen MD LAB POCT ORDERABLES - DEVICE Final Result Performing Organization Address [facility] Co de Phone Number [facility] [place] [address] * (ABNORMAL) Troponin I high-sensitivity 4-hour (11/20/2024 2:16 AM ESTHETICIAN MAKEUP ARTIST) [facility] Trop I hs 76(H) <=17 ng/L Comment: Interpretive Data For further hscTnI resources including the diagnostic algorithm and an aid in interpretation, copy and paste this link: https://bjhlab.testcatalog.org/show/[email or web address] Current Interpretive Data last revised 2020. Trop I hs delta 7 ng/L [facility] Trop I hs interp Equivocal [facility] Blood 11/20/2024 2:16 AM ESTHETICIAN MAKEUP ARTIST 11/20/2024 2:59 AM ESTHETICIAN MAKEUP ARTIST Result [facility] Hesham Madsen MD LAB BLOOD ORDERABLES Final R esult Performing Organization Address City/[facility]/ZIP Co de Phone Number [facility] Department [place] [address] * (ABNORMAL) CBC without differential (11/20/2024 2:16 AM ESTHETICIAN MAKEUP ARTIST) [facility] WBC 9.7 3.8 - 9.9 K/cumm Hgb 10.3(L) 11.9 - 15.5 g/dL [facility] Hct 37.5 35.6 - 45.5 % [facility] Plt 424(H) 150 - 400 K/cumm [facility] MPV 10.4 9.1 - 12.3 fL [facility] RBC 4.61 3.90 - 5.20 M/cumm [facility] MCV 81.3 81.3 - 96.4 fL [facility] MCH 22.3(L) 27.1 - 33.3 pg [facility] MCHC 27.5(L) 32.3 - 35.7 g/dL [facility] RDW CV 24.8(H) 11.1 - 14.9 % [facility] RDW SD 71.2(H) 35.7 - 48.1 fL [facility] NRBC abs 0.03(H) 0.00 - 0.01 K/cumm [facility] Blood 11/20/2024 2:16 AM ESTHETICIAN MAKEUP ARTIST 11/20/2024 2:59 AM ESTHETICIAN MAKEUP ARTIST Hesham Madsen MD LAB BLOOD ORDERABLES Final R esult Performing Organization Address [facility] de Phone Number [facility] Department [place] [address] * (ABNORMAL) Troponin I high-sensitivity 2-hour (11/20/2024 12:24 AM ESTHETICIAN MAKEUP ARTIST) Trop I hs 55(H) <=17 ng/L Comment: Reviewed Interpretive Data For further hscTnI resources including the diagnostic algorithm and an aid in interpretation, copy and paste this link: https://bjhlab.testcatalog.org/show/[email or web address] Current Interpretive Data last revised 2020. Trop I hs delta -14(C) ng/L [facility] Comment:Reviewed Trop I hs interp Significa nt(C) [facility] Comment:Reviewed Blood 11/20/2024 12:2 4 AM ESTHETICIAN MAKEUP ARTIST 11/20/2024 12:52 AM ESTHETICIAN MAKEUP ARTIST Hesham Madsen MD LAB BLOOD ORDERABLES Final R esult Performing Organization Address [facility] Co de Phone Number [facility] Department [place] [address] * Critical result callback Cardio chemistry (11/20/2024 12:24 AM ESTHETICIAN MAKEUP ARTIST) Date Notified [id number] Time Notified 156 ALLY WOODRAD Test name Trop I hs 2hr d ALLY WOODARD Called/Read Back Carina Sherine ALLY WOODARD Credentials RN ALLY WOODARD Called By RKM ALLY WOODARD Blood 11/20/2024 12:2 4 AM ESTHETICIAN MAKEUP ARTIST 11/20/2024 12:52 AM ESTHETICIAN MAKEUP ARTIST us Hesham Madsen MD LAB BLOOD ORDERABLES [facility] [place] [address] * eGFR (11/20/2024 12:24 AM ESTHETICIAN MAKEUP ARTIST) eGFR >90 >=60 mL/min/1. 73 m2 Comment: Interpretive Data Reference Interval Normal >/= 90 mL/min/1.73m2 Mildly decreased* 60 - 89 mL/min/1.73m2 Mildly to moderately decreased 45 - 59 mL/min/1.73m2 Moderately to severely decreased 30 - 44 mL/min/1.73m2 Severely decreased 15 - 29 mL/min/1.73m2 Kidney Failure < 15 mL/min/1.73m2 *Relative to young adult level Estimated glomerular filtration rate is determined by the 2020 CKD-EPI equation recommended by the National Kidney Foundation (A Unifying Approach to GFR Estimation: Recommendations of the NKF-ASK Task Force on Reassessing the Inclusion of Race in Diagnosing Kidney Disease, JASN 2020). The CKD-EPI equation should not be used for patients with unstable renal function and has not been validated in children and those over 70. Current interpretive data was last reviewed 2021. Blood 11/20/2024 12:2 4 AM ESTHETICIAN MAKEUP ARTIST 11/20/2024 12:51 AM ESTHETICIAN MAKEUP ARTIST us Manisha Williamson NP LAB BLOOD ORDERABLES Final Result ALLY WOODARD [facility] Department [place] [address] * (ABNORMAL) aPTT (11/20/2024 12:24 AM ESTHETICIAN MAKEUP ARTIST) Pathologist [facility] aPTT 45(H) 28 - 38 sec Comment: Interpretive Data Heparin therapeutic range: 66.0 - 100.0 seconds. Range based on correlation with therapeutic heparin activity range of 0.3 - 0.7 Units/mL. Current interpretive data was last revised on 2023. Blood 11/20/2024 12:2 4 AM ESTHETICIAN MAKEUP ARTIST 11/20/2024 12:58 AM ESTHETICIAN MAKEUP ARTIST Narrative [facility] - 11/20/2024 1:07 AM ESTHETICIAN MAKEUP ARTIST STAT PTT timing: - Draw 6 hours after heparin infusion initiation - Draw 6 hours after every dose change until 2 consecutive PTTs are therapeutic - Once 2 consecutive PTTs are therapeutic, obtain with daily labs until infusion is discontinued - - Restart every 6 hour lab draws and follow instructions accordingly if PTT is outside of therapeutic range Do not draw lab from IV line that is actively infusing heparin. Use the opposite arm. If arm with actively infusing heparin must be used, pause the infusion for at least 2 minutes, and draw specimen below the IV site. For patients with a central venous catheter (CVC), lab must be drawn peripherally (not from CVC). Manisha Williamson NP LAB BLOOD ORDERABLES Final Result ALLY WOODARD [facility] Department [place] [address] * (ABNORMAL) Basic metabolic panel (11/20/2024 12:24 AM ESTHETICIAN MAKEUP ARTIST) [facility] Sodium 144 135 - 145 mmol/L Potassium, pl 3.8 3.3 - 4.9 mmol/L [facility] Chloride 105 97 - 110 mmol/L [facility] CO2 29 22 - 32 mmol/L [facility] Anion gap 10 2 - 15 mmol/L [facility] BUN 20 6 - 25 mg/dL [facility] Creatinine 0.60 0.60 - 1.10 mg/dL [facility] Glucose 277(H) 70 - 199 mg/dL [facility] Comment: Interpretive Data Fasting glucose >/= 126 mg/dl is diagnostic for diabetes. Fasting is defined as no caloric intake for at least 8 hours. Fasting glucose between 100 mg/dl to 125 mg/dl is diagnostic of prediabetes. In a patient with classic symptoms of hyperglycemia or hyperglycemic crisis, a random glucose >/= 200 mg/dl is diagnostic for diabetes. In the absence of unequivocal hyperglycemia, results should be confirmed by repeat testing. The classification and Diagnosis of Diabetes Diabetes Care 202; 46: S19-S40. Current interpretive data was last revised 2022. Calcium 8.7 8.5 - 10.3 mg/dL [facility] Blood 11/20/2024 12:2 4 AM ESTHETICIAN MAKEUP ARTIST 11/20/2024 12:51 AM ESTHETICIAN MAKEUP ARTIST us Manisha Williamson NP LAB BLOOD ORDERABLES Final Result [facility] Department [place] [address] * (ABNORMAL) POCT glucose (11/19/2024 11:01 PM ESTHETICIAN MAKEUP ARTIST) [facility] Glucose, POC 228(H) 70 - 199 mg/dL Blood 11/19/2024 11:0 1 PM ESTHETICIAN MAKEUP ARTIST 11/19/2024 11:01 PM ESTHETICIAN MAKEUP ARTIST Hesham Madsen MD LAB POCT ORDERABLES - DEVICE Final Result [facility] Department [place] [address] * (ABNORMAL) Troponin I high-sensitivity series (baseline, 2hr, 4hr, 6hr) (11/19/2024 10:15 PM ESTHETICIAN MAKEUP ARTIST) Trop I hs 69(H) <=17 ng/L Comment: Interpretive Data For further hscTnI resources including the diagnostic algorithm and an aid in interpretation, copy and paste this link: https://bjhlab.testcatalog.org/show/hsTrop-[email or web address] Current Interpretive Data last revised 2020. Blood 11/19/2024 10:1 5 PM ESTHETICIAN MAKEUP ARTIST 11/19/2024 10:57 PM ESTHETICIAN MAKEUP ARTIST Hesham Madsen MD LAB BLOOD ORDERABLES Final R esult ALLY [facility] Department [place] [address] * ECG 12 lead (11/19/2024 10:11 PM ESTHETICIAN MAKEUP ARTIST) Pathologist [facility] Ventricular Rate EKG/Min 96 BPM [facility] Atrial Rate 96 BPM [facility] MT-Interval (MSEC) 128 ms [facility] QRS-Interval (MSEC) 88 ms [facility] QT-Interval (MSEC) 406 ms [facility] QTc 512 ms [facility] P [place] 101 degrees [facility] R [place] -18 degrees [facility] T [place] 48 degrees [facility] Diagnosis Sinus rhythm with Premature atrial complexes Minimal voltage criteria for LVH, may be normal variant ( R in aVL ) Borderline ECG When compared with ECG of 23-AUG-2024 04:13, No significant change was found Confirmed by JANEEN RICHARDS M.D ([id number]) on 11/22/2024 6:07:10 PM [facility] 11/19/2024 10:1 1 PM ESTHETICIAN MAKEUP ARTIST 11/22/2024 6:07 PM ESTHETICIAN MAKEUP ARTIST Hesham Madsen MD ECG ORDERABLES Final Result [facility] * (ABNORMAL) POCT glucose (11/19/2024 7:20 PM ESTHETICIAN MAKEUP ARTIST) Pathologist [facility] Glucose, POC 218(H) 70 - 199 mg/dL Blood 11/19/2024 7:20 PM ESTHETICIAN MAKEUP ARTIST 11/19/2024 7:20 PM ESTHETICIAN MAKEUP ARTIST Hesham Madsen MD LAB POCT ORDERABLES - DEVICE Final Result Performing Organization Address City/[facility] Co de Phone Number [facility] [place] [address] * (ABNORMAL) POCT glucose (11/19/2024 4:39 PM ESTHETICIAN MAKEUP ARTIST) Glucose, POC 253(H) 70 - 199 mg/dL Blood 11/19/2024 4:39 PM ESTHETICIAN MAKEUP ARTIST 11/19/2024 4:39 PM ESTHETICIAN MAKEUP ARTIST Hesham Madsen MD LAB POCT ORDERABLES - DEVICE Final Result Performing Organization Address [facility] de Phone Number [facility] Department [place] [address] * aPTT (11/19/2024 3:39 PM ESTHETICIAN MAKEUP ARTIST) Pathologist [facility] aPTT 32 28 - 38 sec Comment: Interpretive Data Heparin therapeutic range: 66.0 - 100.0 seconds. Range based on correlation with therapeutic heparin activity range of 0.3 - 0.7 Units/mL. Current interpretive data was last revised on 2023. Blood 11/19/2024 3:39 PM ESTHETICIAN MAKEUP ARTIST 11/19/2024 4:31 PM ESTHETICIAN MAKEUP ARTIST Narrative [facility] - 11/19/2024 4:40 PM ESTHETICIAN MAKEUP ARTIST STAT PTT timing: - Draw 6 hours after heparin infusion initiation - Draw 6 hours after every dose change until 2 consecutive PTTs are therapeutic - Once 2 consecutive PTTs are therapeutic, obtain with daily labs until infusion is discontinued - - Restart every 6 hour lab draws and follow instructions accordingly if PTT is outside of therapeutic range Do not draw lab from IV line that is actively infusing heparin. Use the opposite arm. If arm with actively infusing heparin must be used, pause the infusion for at least 2 minutes, and draw specimen below the IV site. For patients with a central venous catheter (CVC), lab must be drawn peripherally (not from CVC). Manisha Williamson NP LAB BLOOD ORDERABLES Final Result Performing Organization Address [facility] Co de Phone Number [facility] [place] [address] * (ABNORMAL) POCT glucose (11/19/2024 12:05 PM ESTHETICIAN MAKEUP ARTIST) [facility] Glucose, POC 289(H) 70 - 199 mg/dL Blood 11/19/2024 12:0 5 PM ESTHETICIAN MAKEUP ARTIST 11/19/2024 12:05 PM ESTHETICIAN MAKEUP ARTIST Result [facility] Hesham Madsen MD LAB POCT ORDERABLES - DEVICE Final Result Performing Organization Address [facility] de Phone Number [facility] [place] [address] * (ABNORMAL) POCT glucose (11/19/2024 12:03 PM ESTHETICIAN MAKEUP ARTIST) [facility] Glucose, POC 335(H) 70 - 199 mg/dL Blood 11/19/2024 12:0 3 PM ESTHETICIAN MAKEUP ARTIST 11/19/2024 12:03 PM ESTHETICIAN MAKEUP ARTIST Result [facility] Hesham Madsen MD LAB POCT ORDERABLES - DEVICE Final Result Performing Organization Address [facility] de Phone Number [facility] [place] [address] * eGFR (11/19/2024 8:52 AM ESTHETICIAN MAKEUP ARTIST) [facility] eGFR >90 >=60 mL/min/1. 73 m2 Comment: Interpretive Data Reference Interval Normal >/= 90 mL/min/1.73m2 Mildly decreased* 60 - 89 mL/min/1.73m2 Mildly to moderately decreased 45 - 59 mL/min/1.73m2 Moderately to severely decreased 30 - 44 mL/min/1.73m2 Severely decreased 15 - 29 mL/min/1.73m2 Kidney Failure < 15 mL/min/1.73m2 *Relative to young adult level Estimated glomerular filtration rate is determined by the 2020 CKD-EPI equation recommended by the National Kidney Foundation (A Unifying Approach to GFR Estimation: Recommendations of the NKF-ASK Task Force on Reassessing the Inclusion of Race in Diagnosing Kidney Disease, JASN 2020). The CKD-EPI equation should not be used for patients with unstable renal function and has not been validated in children and those over 70. Current interpretive data was last reviewed 2021. Blood 11/19/2024 8:52 AM ESTHETICIAN MAKEUP ARTIST 11/19/2024 9:45 AM ESTHETICIAN MAKEUP ARTIST Manisha Williamson NP LAB BLOOD ORDERABLES Final Result [facility] Department [place] [address] * (ABNORMAL) Differential, auto (11/19/2024 8:52 AM ESTHETICIAN MAKEUP ARTIST) Neutrophil abs 8.8(H) 1.5 - 6.5 K/cumm Imm gran abs 0.2(H) 0.0 - 0.1 K/cumm [facility] Lymphocyte abs 1.3 0.8 - 3.3 K/cumm [facility] Monocyte abs 0.9(H) 0.2 - 0.8 K/cumm [facility] Eosinophil abs 0.0 0.0 - 0.5 K/cumm [facility] Basophil abs 0.0 0.0 - 0.1 K/cumm [facility] Neutrophil pct 79.2 % [facility] Comment: Interpretive Data Percent cell count reference ranges are not reported, since discordance with absolute values may lead to misinterpretation of CBC data. Current Interpretive Data was last revised on 2018. Imm gran pct 1.3 % [facility] Comment: Interpretive Data Percent cell count reference ranges are not reported, since discordance with absolute values may lead to misinterpretation of CBC data. Current Interpretive Data was last revised on 2018. Lymphocyte pct 11.7 % [facility] Comment: Interpretive Data Percent cell count reference ranges are not reported, since discordance with absolute values may lead to misinterpretation of CBC data. Current Interpretive Data was last revised on 2018. Monocyte pct 7.6 % [facility] Comment: Interpretive Data Percent cell count reference ranges are not reported, since discordance with absolute values may lead to misinterpretation of CBC data. Current Interpretive Data was last revised on 2018. Eosinophil pct 0.0 % [facility] Comment: Interpretive Data Percent cell count reference ranges are not reported, since discordance with absolute values may lead to misinterpretation of CBC data. Current Interpretive Data was last revised on 2018. Basophil pct 0.2 % [facility] Comment: Interpretive Data Percent cell count reference ranges are not reported, since discordance with absolute values may lead to misinterpretation of CBC data. Current Interpretive Data was last revised on 2018. Blood 11/19/2024 8:52 AM ESTHETICIAN MAKEUP ARTIST 11/19/2024 9:45 AM ESTHETICIAN MAKEUP ARTIST Manisha Williamson NP LAB BLOOD ORDERABLES Final Result [facility] Department [place] [address] * (ABNORMAL) CBC with auto differential (11/19/2024 8:52 AM ESTHETICIAN MAKEUP ARTIST) WBC 11.2(H) 3.8 - 9.9 K/cumm Hgb 9.8(L) 11.9 - 15.5 g/dL [facility] Hct 36.0 35.6 - 45.5 % [facility] Plt 418(H) 150 - 400 K/cumm [facility] MPV 10.4 9.1 - 12.3 fL [facility] RBC 4.52 3.90 - 5.20 M/cumm [facility] MCV 79.6(L) 81.3 - 96.4 fL [facility] MCH 21.7(L) 27.1 - 33.3 pg [facility] MCHC 27.2(L) 32.3 - 35.7 g/dL [facility] RDW CV 24.7(H) 11.1 - 14.9 % [facility] RDW SD 70.4(H) 35.7 - 48.1 fL [facility] NRBC abs 0.04(H) 0.00 - 0.01 K/cumm [facility] Blood 11/19/2024 8:52 AM ESTHETICIAN MAKEUP ARTIST 11/19/2024 9:45 AM ESTHETICIAN MAKEUP ARTIST Manisha Williamson NP LAB BLOOD ORDERABLES Final Result Performing Organization Address City/[facility] Co de Phone Number [facility] [place] [address] * (ABNORMAL) aPTT (11/19/2024 8:52 AM ESTHETICIAN MAKEUP ARTIST) aPTT 27(L) 28 - 38 sec Comment: Interpretive Data Heparin therapeutic range: 66.0 - 100.0 seconds. Range based on correlation with therapeutic heparin activity range of 0.3 - 0.7 Units/mL. Current interpretive data was last revised on 2023. Blood 11/19/2024 8:52 AM ESTHETICIAN MAKEUP ARTIST 11/19/2024 9:50 AM ESTHETICIAN MAKEUP ARTIST Narrative [facility] - 11/19/2024 10:00 AM ESTHETICIAN MAKEUP ARTIST Baseline prior to heparin initiation Manisha Williamson STOVE TENDER LAB BLOOD ORDERABLES Final Result [facility] [place] [address] * Protime-INR (11/19/2024 8:52 AM ESTHETICIAN MAKEUP ARTIST) PT 10.2 9.7 - 13.0 sec INR 0.95 0.90 - 1.20 [facility] Comment: Interpretive data Oral anticoagulant therapeutic ranges: Venous thromboembolism prophylaxis or treatment: 2.0-3.0 CARDIOLOGY Standard range: 2.0-3.0 High-intensity range: 2.5-3.5 Refer to indication-specific guidelines for appropriate target ranges for prosthetic heart valve replacement. Current interpretive data was last revised on 2019. Blood 11/19/2024 8:52 AM ESTHETICIAN MAKEUP ARTIST 11/19/2024 9:50 AM ESTHETICIAN MAKEUP ARTIST Narrative [facility] - 11/19/2024 10:00 AM ESTHETICIAN MAKEUP ARTIST Baseline prior to heparin initiation Manisha Williamson NP LAB BLOOD ORDERABLES Final Result Performing Organization Address City/[facility]/ZIP Co de Phone Number [facility] [place] [address] * (ABNORMAL) Hemoglobin A1c (11/19/2024 8:52 AM ESTHETICIAN MAKEUP ARTIST) Hgb A1C 6.0(H) 4.0 - 5.6 % Estimated Average Glucose 126 mg/dL [facility] Comment: The ADA recommends reporting an estimated Average Glucose (eAG) with all Hemoglobin A1c results using the equation derived from a study of 507 normal and diabetic adults. Minority populations were underrepresented and children were not included. (Diabetes Care 2020; 43(S1): S66-S76). The eAG is not equivalent to a fasting glucose. Blood 11/19/2024 8:52 AM ESTHETICIAN MAKEUP ARTIST 11/19/2024 9:49 AM ESTHETICIAN MAKEUP ARTIST Narrative [facility] - 11/19/2024 4:17 PM ESTHETICIAN MAKEUP ARTIST reflex Hesham Madsen MD LAB BLOOD ORDERABLES Final R esult [facility] [place] [address] * (ABNORMAL) Basic metabolic panel (11/19/2024 8:52 AM ESTHETICIAN MAKEUP ARTIST) Sodium 145 135 - 145 mmol/L Potassium, pl 4.0 3.3 - 4.9 mmol/L [facility] Chloride 104 97 - 110 mmol/L [facility] CO2 30 22 - 32 mmol/L [facility] Anion gap 11 2 - 15 mmol/L [facility] BUN 18 6 - 25 mg/dL [facility] Creatinine 0.52(L) 0.60 - 1.10 mg/dL [facility] Glucose 241(H) 70 - 199 mg/dL [facility] Comment: Interpretive Data Fasting glucose >/= 126 mg/dl is diagnostic for diabetes. Fasting is defined as no caloric intake for at least 8 hours. Fasting glucose between 100 mg/dl to 125 mg/dl is diagnostic of prediabetes. In a patient with classic symptoms of hyperglycemia or hyperglycemic crisis, a random glucose >/= 200 mg/dl is diagnostic for diabetes. In the absence of unequivocal hyperglycemia, results should be confirmed by repeat testing. The classification and Diagnosis of Diabetes Diabetes Care 202; 46: S19-S40. Current interpretive data was last revised 2022. Calcium 9.4 8.5 - 10.3 mg/dL [facility] Blood 11/19/2024 8:52 AM ESTHETICIAN MAKEUP ARTIST 11/19/2024 9:45 AM ESTHETICIAN MAKEUP ARTIST us Manisha Williamson NP LAB BLOOD ORDERABLES Final Result [facility] Department [place] [address] * POCT glucose (11/19/2024 7:46 AM ESTHETICIAN MAKEUP ARTIST) Pathologist [facility] Glucose, POC 147 70 - 199 mg/dL Blood 11/19/2024 7:46 AM ESTHETICIAN MAKEUP ARTIST 11/19/2024 7:46 AM ESTHETICIAN MAKEUP ARTIST Hesham Madsen MD LAB POCT ORDERABLES - DEVICE Final Result [facility] Department [place] [address] * eGFR (11/19/2024 4:37 AM ESTHETICIAN MAKEUP ARTIST) [facility] eGFR >90 >=60 mL/min/1. 73 m2 Comment: Interpretive Data Reference Interval Normal >/= 90 mL/min/1.73m2 Mildly decreased* 60 - 89 mL/min/1.73m2 Mildly to moderately decreased 45 - 59 mL/min/1.73m2 Moderately to severely decreased 30 - 44 mL/min/1.73m2 Severely decreased 15 - 29 mL/min/1.73m2 Kidney Failure < 15 mL/min/1.73m2 *Relative to young adult level Estimated glomerular filtration rate is determined by the 2020 CKD-EPI equation recommended by the National Kidney Foundation (A Unifying Approach to GFR Estimation: Recommendations of the NKF-ASK Task Force on Reassessing the Inclusion of Race in Diagnosing Kidney Disease, JASN 2020). The CKD-EPI equation should not be used for patients with unstable renal function and has not been validated in children and those over 70. Current interpretive data was last reviewed 2021. Blood 11/19/2024 4:37 AM ESTHETICIAN MAKEUP ARTIST 11/19/2024 5:29 AM ESTHETICIAN MAKEUP ARTIST us Hesham Madsen MD LAB BLOOD ORDERABLES Final R esult [facility] Department [place] [address] * (ABNORMAL) CBC without differential (11/19/2024 4:37 AM ESTHETICIAN MAKEUP ARTIST) [facility] WBC 9.2 3.8 - 9.9 K/cumm Hgb 9.0(L) 11.9 - 15.5 g/dL [facility] Hct 32.2(L) 35.6 - 45.5 % [facility] Plt 335 150 - 400 K/cumm [facility] MPV 10.1 9.1 - 12.3 fL [facility] RBC 4.07 3.90 - 5.20 M/cumm [facility] MCV 79.1(L) 81.3 - 96.4 fL [facility] MCH 22.1(L) 27.1 - 33.3 pg [facility] MCHC 28.0(L) 32.3 - 35.7 g/dL [facility] RDW CV 24.2(H) 11.1 - 14.9 % [facility] RDW SD 68.3(H) 35.7 - 48.1 fL [facility] NRBC abs 0.04(H) 0.00 - 0.01 K/cumm [facility] Blood 11/19/2024 4:37 AM ESTHETICIAN MAKEUP ARTIST 11/19/2024 5:29 AM ESTHETICIAN MAKEUP ARTIST us Hesham Madsen MD LAB BLOOD ORDERABLES Final R esult [facility] Department [place] [address] * (ABNORMAL) Basic metabolic panel (11/19/2024 4:37 AM ESTHETICIAN MAKEUP ARTIST) Sodium 146(H) 135 - 145 mmol/L Potassium, pl 3.6 3.3 - 4.9 mmol/L [facility] Chloride 105 97 - 110 mmol/L [facility] CO2 32 22 - 32 mmol/L [facility] Anion gap 9 2 - 15 mmol/L [facility] BUN 19 6 - 25 mg/dL [facility] Creatinine 0.51(L) 0.60 - 1.10 mg/dL [facility] Glucose 175 70 - 199 mg/dL [facility] Comment: Interpretive Data Fasting glucose >/= 126 mg/dl is diagnostic for diabetes. Fasting is defined as no caloric intake for at least 8 hours. Fasting glucose between 100 mg/dl to 125 mg/dl is diagnostic of prediabetes. In a patient with classic symptoms of hyperglycemia or hyperglycemic crisis, a random glucose >/= 200 mg/dl is diagnostic for diabetes. In the absence of unequivocal hyperglycemia, results should be confirmed by repeat testing. The classification and Diagnosis of Diabetes Diabetes Care 202; 46: S19-S40. Current interpretive data was last revised 2022. Calcium 8.8 8.5 - 10.3 mg/dL [facility] Blood 11/19/2024 4:37 AM ESTHETICIAN MAKEUP ARTIST 11/19/2024 5:29 AM ESTHETICIAN MAKEUP ARTIST us Hesham Madsen MD LAB BLOOD ORDERABLES Final R esult Performing Organization Address [facility] de Phone Number [facility] [place] [address] * POCT glucose (11/19/2024 2:58 AM ESTHETICIAN MAKEUP ARTIST) Glucose, POC 179 70 - 199 mg/dL Blood 11/19/2024 2:58 AM ESTHETICIAN MAKEUP ARTIST 11/19/2024 2:58 AM ESTHETICIAN MAKEUP ARTIST us Hesham Madsen MD LAB POCT ORDERABLES - DEVICE Final Result Performing Organization Address [facility] [place] [address] * (ABNORMAL) POCT glucose (11/18/2024 10:55 PM ESTHETICIAN MAKEUP ARTIST) Glucose, POC 234(H) 70 - 199 mg/dL Comment:Glu2: RN/MD Notified Glucose comment 1 Glu2: RN/MD Notified [facility] Blood 11/18/2024 10:5 5 PM ESTHETICIAN MAKEUP ARTIST 11/18/2024 10:55 PM ESTHETICIAN MAKEUP ARTIST us Hesham Madsen MD LAB POCT ORDERABLES - DEVICE Final Result Performing Organization Address [facility] de Phone Number [facility] [place] [address] * POCT glucose (11/18/2024 7:25 PM ESTHETICIAN MAKEUP ARTIST) Glucose, POC 160 70 - 199 mg/dL Blood 11/18/2024 7:25 PM ESTHETICIAN MAKEUP ARTIST 11/18/2024 7:25 PM ESTHETICIAN MAKEUP ARTIST us Hesham Madsen MD LAB POCT ORDERABLES - DEVICE Final Result [facility] Department [place] [address] * (ABNORMAL) Differential, auto (11/18/2024 5:53 PM ESTHETICIAN MAKEUP ARTIST) Neutrophil abs 8.6(H) 1.5 - 6.5 K/cumm Imm gran abs 0.1 0.0 - 0.1 K/cumm [facility] Lymphocyte abs 1.1 0.8 - 3.3 K/cumm [facility] Monocyte abs 0.8 0.2 - 0.8 K/cumm [facility] Eosinophil abs 0.0 0.0 - 0.5 K/cumm [facility] Basophil abs 0.0 0.0 - 0.1 K/cumm [facility] Neutrophil pct 81.0 % [facility] Comment: Interpretive Data Percent cell count reference ranges are not reported, since discordance with absolute values may lead to misinterpretation of CBC data. Current Interpretive Data was last revised on 2018. Imm gran pct 1.2 % [facility] Comment: Interpretive Data Percent cell count reference ranges are not reported, since discordance with absolute values may lead to misinterpretation of CBC data. Current Interpretive Data was last revised on 2018. Lymphocyte pct 10.2 % [facility] Comment: Interpretive Data Percent cell count reference ranges are not reported, since discordance with absolute values may lead to misinterpretation of CBC data. Current Interpretive Data was last revised on 2018. Monocyte pct 7.4 % [facility] Comment: Interpretive Data Percent cell count reference ranges are not reported, since discordance with absolute values may lead to misinterpretation of CBC data. Current Interpretive Data was last revised on 2018. Eosinophil pct 0.0 % [facility] Comment: Interpretive Data Percent cell count reference ranges are not reported, since discordance with absolute values may lead to misinterpretation of CBC data. Current Interpretive Data was last revised on 2018. Basophil pct 0.2 % [facility] Comment: Interpretive Data Percent cell count reference ranges are not reported, since discordance with absolute values may lead to misinterpretation of CBC data. Current Interpretive Data was last revised on 2018. Blood 11/18/2024 5:53 PM ESTHETICIAN MAKEUP ARTIST 11/18/2024 6:08 PM ESTHETICIAN MAKEUP ARTIST Hesham Madsen MD LAB BLOOD ORDERABLES Final R esult Performing Organization Address City/[facility]/ZIP Co de Phone Number [facility] [place] [address] * (ABNORMAL) CBC with auto differential (11/18/2024 5:53 PM ESTHETICIAN MAKEUP ARTIST) WBC 10.6(H) 3.8 - 9.9 K/cumm Hgb 8.9(L) 11.9 - 15.5 g/dL [facility] Hct 33.2(L) 35.6 - 45.5 % [facility] Plt 341 150 - 400 K/cumm [facility] MPV 9.9 9.1 - 12.3 fL [facility] RBC 4.05 3.90 - 5.20 M/cumm [facility] MCV 82.0 81.3 - 96.4 fL [facility] MCH 22.0(L) 27.1 - 33.3 pg [facility] MCHC 26.8(L) 32.3 - 35.7 g/dL [facility] RDW CV 23.8(H) 11.1 - 14.9 % [facility] RDW SD 71.2(H) 35.7 - 48.1 fL [facility] NRBC abs 0.04(H) 0.00 - 0.01 K/cumm [facility] Blood 11/18/2024 5:53 PM ESTHETICIAN MAKEUP ARTIST 11/18/2024 6:08 PM ESTHETICIAN MAKEUP ARTIST Hesham Madsen MD LAB BLOOD ORDERABLES Final R esult [facility] [place] [address] * POCT glucose (11/18/2024 4:41 PM ESTHETICIAN MAKEUP ARTIST) Glucose, POC 195 70 - 199 mg/dL Blood 11/18/2024 4:41 PM ESTHETICIAN MAKEUP ARTIST 11/18/2024 4:41 PM ESTHETICIAN MAKEUP ARTIST Result Stacie Madsen MD LAB POCT ORDERABLES - DEVICE Final Result Performing Organization Address [facility] Phone Number [facility] Department [place] [address] * Transfuse RBC (11/18/2024 3:42 PM ESTHETICIAN MAKEUP ARTIST) Blood Result Stacie Madsen MD BLOOD TRANSFUSION ORDERABLES Final Result Performing Organization Address [facility] Phone Number [facility] Department [place] [address] * POCT glucose (11/18/2024 2:03 PM ESTHETICIAN MAKEUP ARTIST) Glucose, POC 101 70 - 199 mg/dL Blood 11/18/2024 2:03 PM ESTHETICIAN MAKEUP ARTIST 11/18/2024 2:03 PM ESTHETICIAN MAKEUP ARTIST Result Stacie Madsen MD LAB POCT ORDERABLES - DEVICE Final Result Performing Organization Address [facility] de Phone Number [facility] Department [place] [address] * POCT glucose (11/18/2024 1:15 PM ESTHETICIAN MAKEUP ARTIST) Glucose, POC 96 70 - 199 mg/dL Blood 11/18/2024 1:15 PM ESTHETICIAN MAKEUP ARTIST 11/18/2024 1:15 PM ESTHETICIAN MAKEUP ARTIST Result Stacie Madsen MD LAB POCT ORDERABLES - DEVICE Final Result Performing Organization Address [facility] [place] [address] * POCT glucose (11/18/2024 12:02 PM ESTHETICIAN MAKEUP ARTIST) Glucose, POC 138 70 - 199 mg/dL Blood 11/18/2024 12:0 2 PM ESTHETICIAN MAKEUP ARTIST 11/18/2024 12:02 PM ESTHETICIAN MAKEUP ARTIST Hesham Madsen MD LAB POCT ORDERABLES - DEVICE Final Result Performing Organization Address [facility] [place] [address] * POCT glucose (11/18/2024 11:13 AM ESTHETICIAN MAKEUP ARTIST) Glucose, POC 164 70 - 199 mg/dL Blood 11/18/2024 11:1 3 AM ESTHETICIAN MAKEUP ARTIST 11/18/2024 11:13 AM ESTHETICIAN MAKEUP ARTIST Hesham Madsen MD LAB POCT ORDERABLES - DEVICE Final Result Performing Organization Address [facility] [place] [address] * Type and screen (11/18/2024 10:26 AM ESTHETICIAN MAKEUP ARTIST) Heath, indirect Negative ABO Rh A Positive [facility] Blood 11/18/2024 10:2 6 AM ESTHETICIAN MAKEUP ARTIST 11/18/2024 10:49 AM ESTHETICIAN MAKEUP ARTIST Narrative [facility] - 11/18/2024 11:56 AM ESTHETICIAN MAKEUP ARTIST Has the patient had Daratumumab or Isatuximab in the past 6 months?->Unknown us Hesham Madsen MD LAB BLOOD BANK TEST ORDERABL ES Final Result Performing Organization Address [facility] [place] [address] * (ABNORMAL) POCT glucose (11/18/2024 10:13 AM ESTHETICIAN MAKEUP ARTIST) [facility] Glucose, POC 207(H) 70 - 199 mg/dL Blood 11/18/2024 10:1 3 AM ESTHETICIAN MAKEUP ARTIST 11/18/2024 10:13 AM ESTHETICIAN MAKEUP ARTIST Hesham Madsen MD LAB POCT ORDERABLES - DEVICE Final Result Performing Organization Address [facility] de Phone Number [facility] Department [place] [address] * Prepare RBC: 1 Units (11/18/2024 9:58 AM ESTHETICIAN MAKEUP ARTIST) [facility] Product code [id number] Unit Number [id number] [facility] Product Blood Type APOS [facility] Dispense Status PRESUMED TRANSFUSED [facility] Blood 11/18/2024 9:58 AM ESTHETICIAN MAKEUP ARTIST 11/18/2024 9:58 AM ESTHETICIAN MAKEUP ARTIST Narrative [facility] - 11/19/2024 12:56 AM ESTHETICIAN MAKEUP ARTIST Are special requirements needed? (All products are leukoreduced and CMV- safe)- >No Date required:-[id number] LRRBC # of [id number] Reasons:-Cardiovascular disease, Hgb <8 g/dL} Hesham Madsen MD BLOOD BANK PRODUCT ORDERABLE S Final Result Performing Organization Address [facility] de Phone Number [facility] Department [place] [address] * (ABNORMAL) POC Blood Gas and Chemistries, Arterial - (11/18/2024 9:39 AM ESTHETICIAN MAKEUP ARTIST) [facility] pH, Art POC 7.51(H) 7.35 - 7.45 pCO2, Art POC 36 35 - 45 mmHg [facility] pO2, Art POC 122(H) 83 - 108 mmHg [facility] Na, POC 140 135 - 145 mmol/L [facility] K POC 4.3 3.3 - 4.9 mmol/L [facility] Comment: Interpretive Data Not all point of care methods assess for hemolysis. Confirm with instrument and retest K+ if not consistent with clinical signs and symptoms. Current Interpretive Data was last revised on 2024. Cl, POC 108 97 - 110 mmol/L [facility] Ionized Ca, POC 4.82 4.50 - 5.10 mg/dL [facility] Glucose, POC 197 70 - 199 mg/dL [facility] Lactate, POC 2.1(H) 0.7 - 2.0 mmol/L [facility] SO2 (jesus alberto) arterial 99(H) 90 - 95 % [facility] Base excess, POC 5.3 mmol/L [facility] HCO3, Art POC 29 20 - 30 mmol/L [facility] Hct, POC 23.0(L) 36.3 - 45.3 % [facility] Total Hb, POC 7.6(L) 11.9 - 15.5 g/dL [facility] Blood 11/18/2024 9:39 AM ESTHETICIAN MAKEUP ARTIST 11/18/2024 9:39 AM ESTHETICIAN MAKEUP ARTIST us Hesham Madsen MD LAB POCT ORDERABLES - DEVICE Final Result [facility] Department [place] [address] * MT AN PROCEDURE PLACEHOLDER (11/18/2024 9:01 AM ESTHETICIAN MAKEUP ARTIST) Narrative Dwight Quintero CRNA - 11/18/2024 9:01 AM ESTHETICIAN MAKEUP ARTIST Dwight Quintero CRNA 11/18/2024 9:01 AM Peripheral IV Catheter Patient location: pre-op holding Staff: Placed by: LEATHER PRODUCTION WORKER: Dwight Quintero CRNA Preprocedure prep: Prep solution: chlorhexadine PPE: gloves and provider hat/mask PIV line: Laterality: right Site: forearm Catheter size: 22 g Technique: anatomical landmarks and direct visualization Procedure details: good blood return and occlusive dressing applied Number of attempts: 1 Assessment: Events: patient tolerated procedure well with no complications us Elba Medina MD PhD ANESTHESIA ORDERABLES Final R esult * MT AN PROCEDURE PLACEHOLDER (11/18/2024 9:01 AM ESTHETICIAN MAKEUP ARTIST) Dwight Staton CRNA - 11/18/2024 9:01 AM ESTHETICIAN MAKEUP ARTIST Dwight Quintero CRNA 11/18/2024 9:01 AM Peripheral IV Catheter Patient location: OR Staff: Placed by: Anesthesiologist: Elba Medina MD PhD Preprocedure prep: Prep solution: chlorhexadine PPE: gloves and provider hat/mask PIV line: Laterality: right Site: forearm Catheter size: 18 g Technique: anatomical landmarks and direct visualization Procedure details: good blood return and occlusive dressing applied Number of attempts: 1 Assessment: Events: patient tolerated procedure well with no complications us Elba Medina MD PhD ANESTHESIA ORDERABLES Final R esult * MT AN ELECTIVE ENDOTRACHEAL AIRWAY, MT AN PROCEDURE PLACEHOLDER (11/18/2024 9:00 AM ESTHETICIAN MAKEUP ARTIST) Dwight Staton CRNA - 11/18/2024 9:00 AM ESTHETICIAN MAKEUP ARTIST Dwight Quintero CRNA 11/18/2024 9:01 AM Airway Patient location: OR Urgency: elective Indications for airway management: anesthesia and airway protection Difficult airway: no Staff: Supervising provider: Elba Medina MD PhD Placed by: LEATHER PRODUCTION WORKER: Dwight Quintero CRNA Emergent airway documentation: Risks and benefits discussed: yes Consent obtained: yes Consent given by: patient Airway prep: Preoxygenated: yes Patient position: sniffing Mask difficulty assessment: 1 - vent by mask Spontaneous ventilation during airway: absent Sedation level during airway: GA Final airway details: Final airway type: endotracheal airway Tube type: ETT ETT size: 7.0 mm Cuffed: yes Technique used for successful ETT placement: video laryngoscopy Devices/Methods used in placement: intubating stylet Insertion site: oral Blade type: Marissa Video blade type: Olson Blade size: 3 Cormack-Lehane (direct): grade IIa - partial view of glottis Cormack-Lehane (video): grade I - full view of glottis Cuff volume: 7 mL Cuff inflated with: air ETT to lips: 23 cm Placement verified by: auscultation and CO2 detection Airway secured with: silk tape Number of attempts: 1 us Elba Medina MD PhD ANESTHESIA ORDERABLES Final R esult * (ABNORMAL) POCT glucose (11/18/2024 8:48 AM ESTHETICIAN MAKEUP ARTIST) Glucose, POC 239(H) 70 - 199 mg/dL Blood 11/18/2024 8:48 AM ESTHETICIAN MAKEUP ARTIST 11/18/2024 8:48 AM ESTHETICIAN MAKEUP ARTIST us Hesham Madsen MD LAB POCT ORDERABLES - DEVICE Final Result Performing Organization Address [facility] de Phone Number [facility] [place] [address] * POCT glucose (11/18/2024 6:37 AM ESTHETICIAN MAKEUP ARTIST) Glucose, POC 183 70 - 199 mg/dL Blood 11/18/2024 6:37 AM ESTHETICIAN MAKEUP ARTIST 11/18/2024 6:37 AM ESTHETICIAN MAKEUP ARTIST Hesham Madsen MD LAB POCT ORDERABLES - DEVICE Final Result Performing Organization Address [facility] de Phone Number [facility] Department [place] [place] [address] * (ABNORMAL) POCT glucose (11/17/2024 11:48 AM ESTHETICIAN MAKEUP ARTIST) Glucose, POC 320(H) 70 - 199 mg/dL Blood 11/17/2024 11:4 8 AM ESTHETICIAN MAKEUP ARTIST 11/17/2024 11:48 AM ESTHETICIAN MAKEUP ARTIST Jaylene Huang MD LAB POCT ORDERABLES - DEVICE Final Result Performing Organization Address City/[facility] Co de Phone Number [facility] Department [place] [address] * POCT glucose (11/17/2024 7:55 AM ESTHETICIAN MAKEUP ARTIST) Glucose, POC 189 70 - 199 mg/dL Blood 11/17/2024 7:55 AM ESTHETICIAN MAKEUP ARTIST 11/17/2024 7:55 AM ESTHETICIAN MAKEUP ARTIST Jaylene Huang MD LAB POCT ORDERABLES - DEVICE Final Result Performing Organization Address [facility]/ZIP Co de Phone Number [facility] [place] [place] [address] * eGFR (11/17/2024 2:31 AM ESTHETICIAN MAKEUP ARTIST) Pathologist [facility] eGFR >90 >=60 mL/min/1. 73 m2 Comment: Interpretive Data Reference Interval Normal >/= 90 mL/min/1.73m2 Mildly decreased* 60 - 89 mL/min/1.73m2 Mildly to moderately decreased 45 - 59 mL/min/1.73m2 Moderately to severely decreased 30 - 44 mL/min/1.73m2 Severely decreased 15 - 29 mL/min/1.73m2 Kidney Failure < 15 mL/min/1.73m2 *Relative to young adult level Estimated glomerular filtration rate is determined by the 2020 CKD-EPI equation recommended by the National Kidney Foundation (A Unifying Approach to GFR Estimation: Recommendations of the NKF-ASK Task Force on Reassessing the Inclusion of Race in Diagnosing Kidney Disease, JASN 2020). The CKD-EPI equation should not be used for patients with unstable renal function and has not been validated in children and those over 70. Current interpretive data was last reviewed 2021. Blood 11/17/2024 2:31 AM ESTHETICIAN MAKEUP ARTIST 11/17/2024 2:50 AM ESTHETICIAN MAKEUP ARTIST Jaylene Huang MD LAB BLOOD ORDERABLES Final Re sult [facility] ([place]) 1 [facility] [place] [address] * (ABNORMAL) Basic metabolic panel (11/17/2024 2:31 AM ESTHETICIAN MAKEUP ARTIST) Sodium 143 135 - 145 mmol/L Potassium, pl 4.4 3.3 - 4.9 mmol/L [facility] ([place]) Chloride 99 97 - 110 mmol/L [facility] ([place]) CO2 33(H) 22 - 32 mmol/L [facility] ([place]) Anion gap 12 2 - 15 mmol/L [facility] ([place]) BUN 20 6 - 25 mg/dL [facility] ([place]) Creatinine 0.51(L) 0.60 - 1.10 mg/dL [facility] ([place]) Glucose 177 70 - 199 mg/dL [facility] ([place]) Comment: Interpretive Data Fasting glucose >/= 126 mg/dl is diagnostic for diabetes. Fasting is defined as no caloric intake for at least 8 hours. Fasting glucose between 100 mg/dl to 125 mg/dl is diagnostic of prediabetes. In a patient with classic symptoms of hyperglycemia or hyperglycemic crisis, a random glucose >/= 200 mg/dl is diagnostic for diabetes. In the absence of unequivocal hyperglycemia, results should be confirmed by repeat testing. The classification and Diagnosis of Diabetes Diabetes Care 2021; 46: S19-S40. Current interpretive data was last revised 2022. Calcium 9.5 8.5 - 10.3 mg/dL [facility] ([place]) Blood 11/17/2024 2:31 AM ESTHETICIAN MAKEUP ARTIST 11/17/2024 2:50 AM ESTHETICIAN MAKEUP ARTIST Jaylene Huang MD LAB BLOOD ORDERABLES Final Re sult Performing Organization Address City/[facility]/ZIP Co de Phone Number [facility] ([place]) 1 [facility] [place] [address] * POCT glucose (11/17/2024 1:38 AM ESTHETICIAN MAKEUP ARTIST) Glucose, POC 175 70 - 199 mg/dL Blood 11/17/2024 1:38 AM ESTHETICIAN MAKEUP ARTIST 11/17/2024 1:38 AM ESTHETICIAN MAKEUP ARTIST Jaylene Huang MD LAB POCT ORDERABLES - DEVICE Final Result Performing Organization Address City/[facility]/ZIP Co de Phone Number [facility] ([place]) 1 [facility] [employer] [place] [address] * (ABNORMAL) POCT glucose (11/16/2024 8:33 PM ESTHETICIAN MAKEUP ARTIST) Glucose, POC 217(H) 70 - 199 mg/dL Blood 11/16/2024 8:33 PM ESTHETICIAN MAKEUP ARTIST 11/16/2024 8:33 PM ESTHETICIAN MAKEUP ARTIST Jaylene Huang MD LAB POCT ORDERABLES - DEVICE Final Result [facility] ([place]) [address] [place] [address] [place] [address] * POCT glucose (11/16/2024 4:29 PM ESTHETICIAN MAKEUP ARTIST) Glucose, POC 198 70 - 199 mg/dL Blood 11/16/2024 4:29 PM ESTHETICIAN MAKEUP ARTIST 11/16/2024 4:29 PM ESTHETICIAN MAKEUP ARTIST Jaylene Huang MD LAB POCT ORDERABLES - DEVICE Final Result Performing Organization Address [facility] de Phone Number [facility] ([place]) [address] [place] [id number] * COVID-19 Coronavirus RNA Nasopharyngeal (11/16/2024 12:37 PM ESTHETICIAN MAKEUP ARTIST) COVID-19 RNA Negative Negative Nasopharyngeal 11/16/2024 12 :37 PM ESTHETICIAN MAKEUP ARTIST 11/16/2024 12:46 PM ESTHETICIAN MAKEUP ARTIST Narrative [facility] ([place]) - 11/16/2024 1:27 PM ESTHETICIAN MAKEUP ARTIST Is the patient experiencing any symptoms consistent with COVID (eg. Fever, cough, shortness of breath)?->No What is the reason for testing?->Screening for post-acute care placement Interpretive data: Testing performed by [facility]. This test is performed using the [employer] Xpert Xpress CoV-2 plus assay. This is a real-time RT-PCR test intended for the qualitative detection of nucleic acid from the SARS-CoV-2. This assay has been cleared by the [place] Food and Drug administration. The performance characteristics have been verified by [facility]. Results must be considered in the clinical context, and a negative result does not rule out infection. Interpretive data last revised 2024. Interpretive data: Testing performed by [facility]. This test is performed using the [employer] Xpert Xpress CoV-2 plus assay. This is a real-time RT-PCR test intended for the qualitative detection of nucleic acid from the SARS-CoV-2. This assay has been cleared by the [facility] Food and Drug administration. The performance characteristics have been verified by [facility]. Results must be considered in the clinical context, and a negative result does not rule out infection. Interpretive data last revised 2024. Jaylene Huang MD LAB MICROBIOLOGY - GENERAL OR DERABLES Final Result Performing Organization Address City/[facility]/ZIP Co de Phone Number [facility] ([place]) 1 [facility] [place] [address] * (ABNORMAL) POCT glucose (11/16/2024 11:37 AM ESTHETICIAN MAKEUP ARTIST) Glucose, POC 221(H) 70 - 199 mg/dL Blood 11/16/2024 11:3 7 AM ESTHETICIAN MAKEUP ARTIST 11/16/2024 11:37 AM ESTHETICIAN MAKEUP ARTIST Jaylene Huang MD LAB POCT ORDERABLES - DEVICE Final Result Performing Organization Address [facility] Co de Phone Number [facility] ([place]) 1 [facility] [place] [address] * POCT glucose (11/16/2024 8:06 AM ESTHETICIAN MAKEUP ARTIST) Glucose, POC 181 70 - 199 mg/dL Blood 11/16/2024 8:06 AM ESTHETICIAN MAKEUP ARTIST 11/16/2024 8:06 AM ESTHETICIAN MAKEUP ARTIST Jaylene Huang MD LAB POCT ORDERABLES - DEVICE Final Result Performing Organization Address City/[facility]/ZIP Co de Phone Number [facility] ([place]) 1 [facility] [place] [address] * (ABNORMAL) POCT glucose (11/16/2024 1:44 AM ESTHETICIAN MAKEUP ARTIST) Glucose, POC 261(H) 70 - 199 mg/dL Blood 11/16/2024 1:44 AM ESTHETICIAN MAKEUP ARTIST 11/16/2024 1:44 AM ESTHETICIAN MAKEUP ARTIST Jaylene Huang MD LAB POCT ORDERABLES - DEVICE Final Result [facility] ([place]) 1 [place] [address] * POCT glucose (11/15/2024 8:17 PM ESTHETICIAN MAKEUP ARTIST) Glucose, POC 94 70 - 199 mg/dL Blood 11/15/2024 8:17 PM ESTHETICIAN MAKEUP ARTIST 11/15/2024 8:17 PM ESTHETICIAN MAKEUP ARTIST Jaylene Huang MD LAB POCT ORDERABLES - DEVICE Final Result Performing Organization Address City/[facility]/ZIP Co de Phone Number [facility] ([place]) 1 [place] [address] * (ABNORMAL) POCT glucose (11/15/2024 5:06 PM ESTHETICIAN MAKEUP ARTIST) Glucose, POC 221(H) 70 - 199 mg/dL Blood 11/15/2024 5:06 PM ESTHETICIAN MAKEUP ARTIST 11/15/2024 5:06 PM ESTHETICIAN MAKEUP ARTIST Jaylene Huang MD LAB POCT ORDERABLES - DEVICE Final Result Performing Organization Address City/[facility]/ZIP Co de Phone Number [facility] ([place]) 1 [facility] [place] [address] * (ABNORMAL) POCT glucose (11/15/2024 11:45 AM ESTHETICIAN MAKEUP ARTIST) Glucose, POC 324(H) 70 - 199 mg/dL Blood 11/15/2024 11:4 5 AM ESTHETICIAN MAKEUP ARTIST 11/15/2024 11:45 AM ESTHETICIAN MAKEUP ARTIST us Jaylene Huang MD LAB POCT ORDERABLES - DEVICE Final Result Performing Organization Address [facility] Co de Phone Number [facility] ([place]) 1 [facility] [place] [address] * (ABNORMAL) POCT glucose (11/15/2024 8:08 AM ESTHETICIAN MAKEUP ARTIST) Glucose, POC 340(H) 70 - 199 mg/dL Blood 11/15/2024 8:08 AM ESTHETICIAN MAKEUP ARTIST 11/15/2024 8:08 AM ESTHETICIAN MAKEUP ARTIST us Jaylene Huang MD LAB POCT ORDERABLES - DEVICE Final Result Performing Organization Address [facility] de Phone Number ALLY [facility] ([place]) 1 [facility] [place] [address] * (ABNORMAL) Potassium (11/15/2024 5:04 AM ESTHETICIAN MAKEUP ARTIST) Potassium, pl 3.2(L) 3.3 - 4.9 mmol/L Blood 11/15/2024 5:04 AM ESTHETICIAN MAKEUP ARTIST 11/15/2024 5:55 AM ESTHETICIAN MAKEUP ARTIST us Jaylene Huang MD LAB BLOOD ORDERABLES Final Re sult Performing Organization Address [facility] Co de Phone Number [facility] ([place]) 1 [facility] [place] [address] * Magnesium (11/15/2024 5:04 AM ESTHETICIAN MAKEUP ARTIST) Magnesium 2.0 1.4 - 2.5 mg/dL Blood 11/15/2024 5:04 AM ESTHETICIAN MAKEUP ARTIST 11/15/2024 5:55 AM ESTHETICIAN MAKEUP ARTIST us Jaylene Huang MD LAB BLOOD ORDERABLES Final Re sult Performing Organization Address [facility] Co de Phone Number [facility]Y [facility] ([place]) 1 [facility] [place] [address] * POCT glucose (11/15/2024 4:01 AM ESTHETICIAN MAKEUP ARTIST) Glucose, POC 135 70 - 199 mg/dL Blood 11/15/2024 4:01 AM ESTHETICIAN MAKEUP ARTIST 11/15/2024 4:01 AM ESTHETICIAN MAKEUP ARTIST us Jaylene Huang MD LAB POCT ORDERABLES - DEVICE Final Result Performing Organization Address City/[facility]/ZIP Co de Phone Number [facility] ([place]) 1 [facility] [place] [address] * POCT glucose (11/15/2024 1:51 AM ESTHETICIAN MAKEUP ARTIST) Glucose, POC 170 70 - 199 mg/dL Blood 11/15/2024 1:51 AM ESTHETICIAN MAKEUP ARTIST 11/15/2024 1:51 AM ESTHETICIAN MAKEUP ARTIST us Jaylene Huang MD LAB POCT ORDERABLES - DEVICE Final Result Performing Organization Address City/[facility]/ZIP Co de Phone Number [facility] ([place]) 1 [facility] [place] [address] * POCT glucose (11/14/2024 8:08 PM ESTHETICIAN MAKEUP ARTIST) Glucose, POC 122 70 - 199 mg/dL Blood 11/14/2024 8:08 PM ESTHETICIAN MAKEUP ARTIST 11/14/2024 8:08 PM ESTHETICIAN MAKEUP ARTIST us Jaylene Huang MD LAB POCT ORDERABLES - DEVICE Final Result Performing Organization Address City/[facility]/ZIP Co de Phone Number [facility] ([place]) 1 [facility] [place] [address] * (ABNORMAL) POCT glucose (11/14/2024 4:53 PM ESTHETICIAN MAKEUP ARTIST) Glucose, POC 334(H) 70 - 199 mg/dL Blood 11/14/2024 4:53 PM ESTHETICIAN MAKEUP ARTIST 11/14/2024 4:53 PM ESTHETICIAN MAKEUP ARTIST us Jaylene Huang MD LAB POCT ORDERABLES - DEVICE Final Result Performing Organization Address [facility]/ZIP Co de Phone Number [facility] ([place]) 1 [facility] [place] [address] * (ABNORMAL) POCT glucose (11/14/2024 12:17 PM ESTHETICIAN MAKEUP ARTIST) Glucose, POC 256(H) 70 - 199 mg/dL Blood 11/14/2024 12:1 7 PM ESTHETICIAN MAKEUP ARTIST 11/14/2024 12:17 PM ESTHETICIAN MAKEUP ARTIST us Jaylene Huang MD LAB POCT ORDERABLES - DEVICE Final Result Performing Organization Address [facility] Co de Phone Number ALLY [facility] ([place]) 1 [facility] [place] [address] * POCT glucose (11/14/2024 7:56 AM ESTHETICIAN MAKEUP ARTIST) Glucose, POC 191 70 - 199 mg/dL Blood 11/14/2024 7:56 AM ESTHETICIAN MAKEUP ARTIST 11/14/2024 7:56 AM ESTHETICIAN MAKEUP ARTIST us Jaylene Huang MD LAB POCT ORDERABLES - DEVICE Final Result Performing Organization Address [facility] Co de Phone Number [facility] ([place]) 1 [facility] [place] [address] * (ABNORMAL) POCT glucose (11/14/2024 2:49 AM ESTHETICIAN MAKEUP ARTIST) Glucose, POC 276(H) 70 - 199 mg/dL Blood 11/14/2024 2:49 AM ESTHETICIAN MAKEUP ARTIST 11/14/2024 2:49 AM ESTHETICIAN MAKEUP ARTIST Jaylene Huang MD LAB POCT ORDERABLES - DEVICE Final Result [facility] ([place]) 1 [facility] [place] [address] * (ABNORMAL) POCT glucose (11/13/2024 8:19 PM ESTHETICIAN MAKEUP ARTIST) Glucose, POC 204(H) 70 - 199 mg/dL Blood 11/13/2024 8:19 PM ESTHETICIAN MAKEUP ARTIST 11/13/2024 8:19 PM ESTHETICIAN MAKEUP ARTIST us Jaylene Huang MD LAB POCT ORDERABLES - DEVICE Final Result [facility] ([place]) 1 [facility] [place] [address] * POCT glucose (11/13/2024 4:52 PM ESTHETICIAN MAKEUP ARTIST) Glucose, POC 192 70 - 199 mg/dL Blood 11/13/2024 4:52 PM ESTHETICIAN MAKEUP ARTIST 11/13/2024 4:52 PM ESTHETICIAN MAKEUP ARTIST us Jaylene Huang MD LAB POCT ORDERABLES - DEVICE Final Result Performing Organization Address City/[facility]/ZIP Co de Phone Number [facility] ([place]) 1 [facility] [place] [address] * (ABNORMAL) POCT glucose (11/13/2024 11:52 AM ESTHETICIAN MAKEUP ARTIST) Glucose, POC 227(H) 70 - 199 mg/dL Blood 11/13/2024 11:5 2 AM ESTHETICIAN MAKEUP ARTIST 11/13/2024 11:52 AM ESTHETICIAN MAKEUP ARTIST us Jaylene Huang MD LAB POCT ORDERABLES - DEVICE Final Result [facility] ([place]) 1 [facility] [place] [address] * (ABNORMAL) POCT glucose (11/13/2024 7:55 AM ESTHETICIAN MAKEUP ARTIST) Glucose, POC 282(H) 70 - 199 mg/dL Blood 11/13/2024 7:55 AM ESTHETICIAN MAKEUP ARTIST 11/13/2024 7:55 AM ESTHETICIAN MAKEUP ARTIST Jaylene Huang MD LAB POCT ORDERABLES - DEVICE Final Result Performing Organization Address [facility] Co de Phone Number [facility] ([place]) 1 [facility] [place] [address] * (ABNORMAL) POCT glucose (11/13/2024 1:40 AM ESTHETICIAN MAKEUP ARTIST) Glucose, POC 308(H) 70 - 199 mg/dL Blood 11/13/2024 1:40 AM ESTHETICIAN MAKEUP ARTIST 11/13/2024 1:40 AM ESTHETICIAN MAKEUP ARTIST Jaylene Huang MD LAB POCT ORDERABLES - DEVICE Final Result Performing Organization Address [facility] Co de Phone Number ALLY [facility] ([place]) 1 [facility] [place] [address] * (ABNORMAL) POCT glucose (11/12/2024 8:24 PM ESTHETICIAN MAKEUP ARTIST) Glucose, POC 293(H) 70 - 199 mg/dL Blood 11/12/2024 8:24 PM ESTHETICIAN MAKEUP ARTIST 11/12/2024 8:24 PM ESTHETICIAN MAKEUP ARTIST Jaylene Huang MD LAB POCT ORDERABLES - DEVICE Final Result Performing Organization Address [facility] Co de Phone Number [facility] ([place]) 1 [facility] [place] [address] * (ABNORMAL) POCT glucose (11/12/2024 5:12 PM ESTHETICIAN MAKEUP ARTIST) Glucose, POC 331(H) 70 - 199 mg/dL Blood 11/12/2024 5:12 PM ESTHETICIAN MAKEUP ARTIST 11/12/2024 5:12 PM ESTHETICIAN MAKEUP ARTIST Jaylene Huang MD LAB POCT ORDERABLES - DEVICE Final Result [facility] ([place]) 1 [facility] [place] [address] * (ABNORMAL) POCT glucose (11/12/2024 11:59 AM ESTHETICIAN MAKEUP ARTIST) Glucose, POC 299(H) 70 - 199 mg/dL Blood 11/12/2024 11:5 9 AM ESTHETICIAN MAKEUP ARTIST 11/12/2024 11:59 AM ESTHETICIAN MAKEUP ARTIST Jaylene Huang MD LAB POCT ORDERABLES - DEVICE Final Result Performing Organization Address City/[facility] Co de Phone Number ALLY [facility] ([place]) 1 [facility] [place] [address] * (ABNORMAL) POCT glucose (11/12/2024 8:30 AM ESTHETICIAN MAKEUP ARTIST) Glucose, POC 246(H) 70 - 199 mg/dL Blood 11/12/2024 8:30 AM ESTHETICIAN MAKEUP ARTIST 11/12/2024 8:30 AM ESTHETICIAN MAKEUP ARTIST Jaylene Huang MD LAB POCT ORDERABLES - DEVICE Final Result Performing Organization Address City/[facility] Co de Phone Number ALLY C[facility] ([place]) 1 [facility] [place] [address] * eGFR (11/12/2024 3:07 AM ESTHETICIAN MAKEUP ARTIST) eGFR >90 >=60 mL/min/1. 73 m2 Comment: Interpretive Data Reference Interval Normal >/= 90 mL/min/1.73m2 Mildly decreased* 60 - 89 mL/min/1.73m2 Mildly to moderately decreased 45 - 59 mL/min/1.73m2 Moderately to severely decreased 30 - 44 mL/min/1.73m2 Severely decreased 15 - 29 mL/min/1.73m2 Kidney Failure < 15 mL/min/1.73m2 *Relative to young adult level Estimated glomerular filtration rate is determined by the 2020 CKD-EPI equation recommended by the National [employer] (A Unifying Approach to GFR Estimation: Recommendations of the NKF-ASK Task Force on Reassessing the Inclusion of Race in Diagnosing Kidney Disease, JASN 2020). The CKD-EPI equation should not be used for patients with unstable renal function and has not been validated in children and those over 70. Current interpretive data was last reviewed 2021. Blood 11/12/2024 3:07 AM ESTHETICIAN MAKEUP ARTIST 11/12/2024 3:48 AM ESTHETICIAN MAKEUP ARTIST us Sanjeev Gonzales MD LAB BLOOD ORDERABLES Final Resu lt [facility] ([place]) 1 [facility] Department [place] [address] * Differential, auto (11/12/2024 3:07 AM ESTHETICIAN MAKEUP ARTIST) Neutrophil abs 6.3 1.5 - 6.5 K/cumm Imm gran abs 0.1 0.0 - 0.1 K/cumm [facility] ([place]) Lymphocyte abs 1.6 0.8 - 3.3 K/cumm [facility] ([place]) Monocyte abs 0.6 0.2 - 0.8 K/cumm [facility] ([place]) Eosinophil abs 0.0 0.0 - 0.5 K/cumm [facility] ([place]) Basophil abs 0.0 0.0 - 0.1 K/cumm [facility] ([place]) Neutrophil pct 72.6 % [facility] ([place]) Comment: Interpretive Data Percent cell count reference ranges are not reported, since discordance with absolute values may lead to misinterpretation of CBC data. Current Interpretive Data was last revised on 2018. Imm gran pct 0.8 % [facility] ([place]) Comment: Interpretive Data Percent cell count reference ranges are not reported, since discordance with absolute values may lead to misinterpretation of CBC data. Current Interpretive Data was last revised on 2018. Lymphocyte pct 18.6 % [facility] ([place]) Comment: Interpretive Data Percent cell count reference ranges are not reported, since discordance with absolute values may lead to misinterpretation of CBC data. Current Interpretive Data was last revised on 2018. Monocyte pct 7.3 % [facility] ([place]) Comment: Interpretive Data Percent cell count reference ranges are not reported, since discordance with absolute values may lead to misinterpretation of CBC data. Current Interpretive Data was last revised on 2018. Eosinophil pct 0.5 % [facility] ([place]) Comment: Interpretive Data Percent cell count reference ranges are not reported, since discordance with absolute values may lead to misinterpretation of CBC data. Current Interpretive Data was last revised on 2018. Basophil pct 0.2 % [facility] ([place]) Comment: Interpretive Data Percent cell count reference ranges are not reported, since discordance with absolute values may lead to misinterpretation of CBC data. Current Interpretive Data was last revised on 2018. Blood 11/12/2024 3:07 AM ESTHETICIAN MAKEUP ARTIST 11/12/2024 3:46 AM ESTHETICIAN MAKEUP ARTIST us Sanjeev Gonzales MD LAB BLOOD ORDERABLES Final Resu lt [facility] ([place]) 1 [facility] Department [place] [address] * (ABNORMAL) CBC with auto differential (11/12/2024 3:07 AM ESTHETICIAN MAKEUP ARTIST) WBC 8.7 3.8 - 9.9 K/cumm Hgb 8.8(L) 11.9 - 15.5 g/dL [facility] ([place]) Hct 34.2(L) 35.6 - 45.5 % [facility] ([place]) Plt 342 150 - 400 K/cumm [facility] ([place]) MPV 10.5 9.1 - 12.3 fL [facility] ([place]) RBC 4.22 3.90 - 5.20 M/cumm [facility] ([place]) MCV 81.0(L) 81.3 - 96.4 fL [facility] ([place]) MCH 20.9(L) 27.1 - 33.3 pg [facility] ([place]) MCHC 25.7(L) 32.3 - 35.7 g/dL [facility] ([place]) RDW CV 28.4(H) 11.1 - 14.9 % [facility] ([place]) RDW SD 79.5(H) 35.7 - 48.1 fL [facility] ([place]) NRBC abs 0.02(H) 0.00 - 0.01 K/cumm [facility] ([place]) Blood 11/12/2024 3:07 AM ESTHETICIAN MAKEUP ARTIST 11/12/2024 3:46 AM ESTHETICIAN MAKEUP ARTIST Sanjeev Gonzales MD LAB BLOOD ORDERABLES Final Resu lt [facility] ([place]) 1 [facility] [place] [address] * Magnesium (11/12/2024 3:07 AM ESTHETICIAN MAKEUP ARTIST) [facility] Magnesium 2.3 1.4 - 2.5 mg/dL Blood 11/12/2024 3:07 AM ESTHETICIAN MAKEUP ARTIST 11/12/2024 3:48 AM ESTHETICIAN MAKEUP ARTIST Sanjeev Gonzales MD LAB BLOOD ORDERABLES Final Resu lt [facility] ([place]) 1 [facility] [place] [address] * (ABNORMAL) Comprehensive metabolic panel (11/12/2024 3:07 AM ESTHETICIAN MAKEUP ARTIST) Pathologist [facility] Sodium 137 135 - 145 mmol/L Potassium, pl 3.8 3.3 - 4.9 mmol/L [facility]) Chloride 97 97 - 110 mmol/L [facility]) CO2 26 22 - 32 mmol/L [facility]) Anion gap 14 2 - 15 mmol/L [facility] ([place] BUN 28(H) 6 - 25 mg/dL [facility] ([place] Creatinine 0.47(L) 0.60 - 1.10 mg/dL [facility] ([place] Glucose 363(H) 70 - 199 mg/dL [facility] ([place]) Comment: Interpretive Data Fasting glucose >/= 126 mg/dl is diagnostic for diabetes. Fasting is defined as no caloric intake for at least 8 hours. Fasting glucose between 100 mg/dl to 125 mg/dl is diagnostic of prediabetes. In a patient with classic symptoms of hyperglycemia or hyperglycemic crisis, a random glucose >/= 200 mg/dl is diagnostic for diabetes. In the absence of unequivocal hyperglycemia, results should be confirmed by repeat testing. The classification and Diagnosis of Diabetes Diabetes Care 2021; 46: S19-S40. Current interpretive data was last revised 2022. Calcium 8.9 8.5 - 10.3 mg/dL [facility] ([place]) Bilirubin, total 0.5 0.1 - 1.2 mg/dL [facility] ([place]) Protein, pl 6.3(L) 6.5 - 8.5 g/dL [facility] ([place]) Albumin 4.5 3.5 - 5.0 g/dL [facility] ([place]) Alk phos 63 40 - 130 Units/L [facility] ([place]) ALT 29 7 - 45 Units/L [facility] ([place]) AST 19 10 - 45 Units/L [facility] ([place]) Blood 11/12/2024 3:07 AM ESTHETICIAN MAKEUP ARTIST 11/12/2024 3:48 AM ESTHETICIAN MAKEUP ARTIST us Sanjeev Gonzales MD LAB BLOOD ORDERABLES Final Resu lt Performing Organization Address City/[facility] Co de Phone Number [facility] ([place]) 1 [facility] Department [place] [address] * (ABNORMAL) POCT glucose (11/12/2024 2:49 AM ESTHETICIAN MAKEUP ARTIST) [facility] Signature Glucose, POC 371(H) 70 - 199 mg/dL Comment:Glu2: RN/ Notified Blood 11/12/2024 2:49 AM ESTHETICIAN MAKEUP ARTIST 11/12/2024 2:49 AM ESTHETICIAN MAKEUP ARTIST us Jaylene Huang MD LAB POCT ORDERABLES - DEVICE Final Result [facility] ([place]) 1 [facility] [place] [address] * (ABNORMAL) POCT glucose (11/11/2024 8:20 PM ESTHETICIAN MAKEUP ARTIST) Glucose, POC 277(H) 70 - 199 mg/dL Comment:Glu2: RN/MD Notified Blood 11/11/2024 8:20 PM ESTHETICIAN MAKEUP ARTIST 11/11/2024 8:20 PM ESTHETICIAN MAKEUP ARTIST Jaylene Huang MD LAB POCT ORDERABLES - DEVICE Final Result Performing Organization Address [place] [facility] Co de Phone Number ALLY CUMMINGS ([place]) 1 [facility] [place] [address] * POCT glucose (11/11/2024 5:18 PM ESTHETICIAN MAKEUP ARTIST) Glucose, POC 188 70 - 199 mg/dL Blood 11/11/2024 5:18 PM ESTHETICIAN MAKEUP ARTIST 11/11/2024 5:18 PM ESTHETICIAN MAKEUP ARTIST Jaylene Huang MD LAB POCT ORDERABLES - DEVICE Final Result Performing Organization Address [facility] Co de Phone Number ALLY CUMMINGS ([place]) 1 [facility] [place] [address] * (ABNORMAL) POCT glucose (11/11/2024 2:40 PM ESTHETICIAN MAKEUP ARTIST) Glucose, POC 296(H) 70 - 199 mg/dL Blood 11/11/2024 2:40 PM ESTHETICIAN MAKEUP ARTIST 11/11/2024 2:40 PM ESTHETICIAN MAKEUP ARTIST Jaylene Huang MD LAB POCT ORDERABLES - DEVICE Final Result Performing Organization Address City/[facility]/ZIP Co de Phone Number ALLY CUMMINGS ([place]) 1 [facility] [place] [address] * (ABNORMAL) POCT glucose (11/11/2024 11:44 AM ESTHETICIAN MAKEUP ARTIST) Glucose, POC 388(H) 70 - 199 mg/dL Blood 11/11/2024 11:4 4 AM ESTHETICIAN MAKEUP ARTIST 11/11/2024 11:44 AM ESTHETICIAN MAKEUP ARTIST Jaylene Huang MD LAB POCT ORDERABLES - DEVICE Final Result Performing Organization Address City/[facility]/ZIP Co de Phone Number ALLY CUMMINGS ([place]) 1 [facility] [place] [address] * (ABNORMAL) POCT glucose (11/11/2024 8:18 AM ESTHETICIAN MAKEUP ARTIST) Pathologist [facility] Glucose, POC 245(H) 70 - 199 mg/dL Blood 11/11/2024 8:18 AM ESTHETICIAN MAKEUP ARTIST 11/11/2024 8:18 AM ESTHETICIAN MAKEUP ARTIST Jaylene Huang MD LAB POCT ORDERABLES - DEVICE Final Result Performing Organization Address [facility] de Phone Number [facility] ([place]) 1 [facility] [place] [address] * (ABNORMAL) POCT glucose (11/11/2024 3:46 AM ESTHETICIAN MAKEUP ARTIST) [facility] Glucose, POC 296(H) 70 - 199 mg/dL Blood 11/11/2024 3:46 AM ESTHETICIAN MAKEUP ARTIST 11/11/2024 3:46 AM ESTHETICIAN MAKEUP ARTIST Jaylene Huang MD LAB POCT ORDERABLES - DEVICE Final Result Performing Organization Address City/[facility] Co de Phone Number [facility] ([place]) 1 [facility] [place] [address] * eGFR (11/11/2024 2:16 AM ESTHETICIAN MAKEUP ARTIST) [facility] eGFR >90 >=60 mL/min/1. 73 m2 Comment: Interpretive Data Reference Interval Normal >/= 90 mL/min/1.73m2 Mildly decreased* 60 - 89 mL/min/1.73m2 Mildly to moderately decreased 45 - 59 mL/min/1.73m2 Moderately to severely decreased 30 - 44 mL/min/1.73m2 Severely decreased 15 - 29 mL/min/1.73m2 Kidney Failure < 15 mL/min/1.73m2 *Relative to young adult level Estimated glomerular filtration rate is determined by the 2020 CKD-EPI equation recommended by the National Kidney Foundation (A Unifying Approach to GFR Estimation: Recommendations of the NKF-ASK Task Force on Reassessing the Inclusion of Race in Diagnosing Kidney Disease, JASN 2020). The CKD-EPI equation should not be used for patients with unstable renal function and has not been validated in children and those over 70. Current interpretive data was last reviewed 2021. Blood 11/11/2024 2:16 AM ESTHETICIAN MAKEUP ARTIST 11/11/2024 2:42 AM ESTHETICIAN MAKEUP ARTIST us Sanjeev Gonzales MD LAB BLOOD ORDERABLES Final Resu lt [facility] ([place]) 1 [facility] [place] [address] * Differential, auto (11/11/2024 2:16 AM ESTHETICIAN MAKEUP ARTIST) Neutrophil abs 5.4 1.5 - 6.5 K/cumm Imm gran abs 0.1 0.0 - 0.1 K/cumm [facility] ([place]) Lymphocyte abs 1.7 0.8 - 3.3 K/cumm [facility] ([place]) Monocyte abs 0.5 0.2 - 0.8 K/cumm [facility] ([place]) Eosinophil abs 0.0 0.0 - 0.5 K/cumm [facility] ([place]) Basophil abs 0.0 0.0 - 0.1 K/cumm [facility] ([place]) Neutrophil pct 70.0 % [facility] ([place]) Comment: Interpretive Data Percent cell count reference ranges are not reported, since discordance with absolute values may lead to misinterpretation of CBC data. Current Interpretive Data was last revised on 2018. Imm gran pct 1.2 % [facility] ([place]) Comment: Interpretive Data Percent cell count reference ranges are not reported, since discordance with absolute values may lead to misinterpretation of CBC data. Current Interpretive Data was last revised on 2018. Lymphocyte pct 22.0 % [facility] ([place]) Comment: Interpretive Data Percent cell count reference ranges are not reported, since discordance with absolute values may lead to misinterpretation of CBC data. Current Interpretive Data was last revised on 2018. Monocyte pct 6.0 % [facility] ([place]) Comment: Interpretive Data Percent cell count reference ranges are not reported, since discordance with absolute values may lead to misinterpretation of CBC data. Current Interpretive Data was last revised on 2018. Eosinophil pct 0.4 % [facility] ([place]) Comment: Interpretive Data Percent cell count reference ranges are not reported, since discordance with absolute values may lead to misinterpretation of CBC data. Current Interpretive Data was last revised on 2018. Basophil pct 0.4 % [facility] ([place]) Comment: Interpretive Data Percent cell count reference ranges are not reported, since discordance with absolute values may lead to misinterpretation of CBC data. Current Interpretive Data was last revised on 2018. Blood 11/11/2024 2:16 AM ESTHETICIAN MAKEUP ARTIST 11/11/2024 2:41 AM ESTHETICIAN MAKEUP ARTIST us Sanjeev Gonzales MD LAB BLOOD ORDERABLES Final Resu lt ALLY CUMMINGS ([place]) 1 [facility] Department [place] [address] * (ABNORMAL) CBC with auto differential (11/11/2024 2:16 AM ESTHETICIAN MAKEUP ARTIST) WBC 7.7 3.8 - 9.9 K/cumm Hgb 8.6(L) 11.9 - 15.5 g/dL [facility] ([place]) Hct 33.8(L) 35.6 - 45.5 % [facility] ([place]) Plt 344 150 - 400 K/cumm [facility] ([place]) MPV 9.8 9.1 - 12.3 fL [facility] ([place]) RBC 4.21 3.90 - 5.20 M/cumm [facility] ([place]) MCV 80.3(L) 81.3 - 96.4 fL [facility] ([place]) MCH 20.4(L) 27.1 - 33.3 pg [facility] ([place]) MCHC 25.4(L) 32.3 - 35.7 g/dL [facility] ([place]) RDW CV 28.7(H) 11.1 - 14.9 % [facility] ([place]) RDW SD 79.5(H) 35.7 - 48.1 fL [facility] ([place]) NRBC abs 0.06(H) 0.00 - 0.01 K/cumm [facility] ([place]) Blood 11/11/2024 2:16 AM ESTHETICIAN MAKEUP ARTIST 11/11/2024 2:41 AM ESTHETICIAN MAKEUP ARTIST Sanjeev Gonzales MD LAB BLOOD ORDERABLES Final Resu lt Performing Organization Address City/[facility]/ZIP Co de Phone Number [facility] ([place]) 1 [facility] [place] [address] * Magnesium (11/11/2024 2:16 AM ESTHETICIAN MAKEUP ARTIST) [facility] Magnesium 2.4 1.4 - 2.5 mg/dL Blood 11/11/2024 2:16 AM ESTHETICIAN MAKEUP ARTIST 11/11/2024 2:42 AM ESTHETICIAN MAKEUP ARTIST Sanjeev Gonzales MD LAB BLOOD ORDERABLES Final Resu lt ALLY CUMMINGS ([place]) 1 [facility] [place] [address] * (ABNORMAL) Comprehensive metabolic panel (11/11/2024 2:16 AM ESTHETICIAN MAKEUP ARTIST) Sodium 139 135 - 145 mmol/L Potassium, pl 4.2 3.3 - 4.9 mmol/L [facility] ([place] Chloride 100 97 - 110 mmol/L [facility]) CO2 27 22 - 32 mmol/L [facility] ([place]) Anion gap 13 2 - 15 mmol/L [facility] ([place]) BUN 19 6 - 25 mg/dL [facility] ([place]) Creatinine 0.48(L) 0.60 - 1.10 mg/dL [facility] ([place]) Glucose 293(H) 70 - 199 mg/dL [facility] ([place]) Comment: Interpretive Data Fasting glucose >/= 126 mg/dl is diagnostic for diabetes. Fasting is defined as no caloric intake for at least 8 hours. Fasting glucose between 100 mg/dl to 125 mg/dl is diagnostic of prediabetes. In a patient with classic symptoms of hyperglycemia or hyperglycemic crisis, a random glucose >/= 200 mg/dl is diagnostic for diabetes. In the absence of unequivocal hyperglycemia, results should be confirmed by repeat testing. The classification and Diagnosis of Diabetes Diabetes Care 202; 46: S19-S40. Current interpretive data was last revised 2022. Calcium 9.0 8.5 - 10.3 mg/dL [facility] ([place]) Bilirubin, total 0.6 0.1 - 1.2 mg/dL [facility] ([place]) Protein, pl 6.4(L) 6.5 - 8.5 g/dL [facility] ([place]) Albumin 4.6 3.5 - 5.0 g/dL [facility] ([place]) Alk phos 66 40 - 130 Units/L [facility] ([place]) ALT 24 7 - 45 Units/L [facility] ([place]) AST 16 10 - 45 Units/L [facility] ([place]) Blood 11/11/2024 2:16 AM ESTHETICIAN MAKEUP ARTIST 11/11/2024 2:42 AM ESTHETICIAN MAKEUP ARTIST us Sanjeev Gonzales MD LAB BLOOD ORDERABLES Final Resu lt [facility] ([place]) 1 [facility] Department [place] [address] * (ABNORMAL) POCT glucose (11/11/2024 1:41 AM ESTHETICIAN MAKEUP ARTIST) Glucose, POC 330(H) 70 - 199 mg/dL Blood 11/11/2024 1:41 AM ESTHETICIAN MAKEUP ARTIST 11/11/2024 1:41 AM ESTHETICIAN MAKEUP ARTIST us Jaylene Huang MD LAB POCT ORDERABLES - DEVICE Final Result Performing Organization Address [facility] Co de Phone Number ALLY CUMMINGS ([place]) 1 [facility] [place] [address] * (ABNORMAL) POCT glucose (11/10/2024 8:50 PM ESTHETICIAN MAKEUP ARTIST) Glucose, POC 286(H) 70 - 199 mg/dL Blood 11/10/2024 8:50 PM ESTHETICIAN MAKEUP ARTIST 11/10/2024 8:50 PM ESTHETICIAN MAKEUP ARTIST us Jaylene Huang MD LAB POCT ORDERABLES - DEVICE Final Result Performing Organization Address [facility] de Phone Number ALLY CUMMINGS ([place]) 1 [facility] [place] [address] * (ABNORMAL) POCT glucose (11/10/2024 4:52 PM ESTHETICIAN MAKEUP ARTIST) Glucose, POC 219(H) 70 - 199 mg/dL Blood 11/10/2024 4:52 PM ESTHETICIAN MAKEUP ARTIST 11/10/2024 4:52 PM ESTHETICIAN MAKEUP ARTIST Jaylene Huang MD LAB POCT ORDERABLES - DEVICE Final Result Performing Organization Address [facility] de Phone Number ALLY CUMMINGS ([place]) 1 [facility] [place] [address] * (ABNORMAL) POCT glucose (11/10/2024 11:57 AM ESTHETICIAN MAKEUP ARTIST) Glucose, POC 303(H) 70 - 199 mg/dL Blood 11/10/2024 11:5 7 AM ESTHETICIAN MAKEUP ARTIST 11/10/2024 11:57 AM ESTHETICIAN MAKEUP ARTIST Jaylene Huang MD LAB POCT ORDERABLES - DEVICE Final Result Performing Organization Address [facility] de Phone Number ALLY CUMMINGS ([place]) 1 [facility] Department of Laboratories [place], [place] [id number] * TRANSTHORACIC ECHO (TTE) LIMITED/FOLLOW UP WO DOPPLER/CF W CONTRAST (11/10/2024 9:50 AM ESTHETICIAN MAKEUP ARTIST) LV EF 15 % CONS SCIMAGE Anatomical Region Laterality Modality Ultrasound 11/10/2024 9:09 AM ESTHETICIAN MAKEUP ARTIST Narrative 11/10/2024 11:03 AM ESTHETICIAN MAKEUP ARTIST [address] [address] Limited Echocardiogram Report Patient Name: AGUSTIN GOMEZ D : 1965 Study Date: 11/10/2024 9:09:45 AM Gender: F Tech: AA Location: [id number] Ref Provider: RACHEAL SAUL Height(Cm): BSA: Weight(Kg): Quality: Good PROCEDURES: Echocardiographic Report: Limited transthoracic echocardiogram with 2D and contrast. INDICATIONS: hx apical clot. MEASUREMENTS: 2D/MM Value Range Doppler Value Range Estimated EF 15 to 20 % TR Peak Frank 2.52 m/s [ 1.00 - 2.80 ] TR Peak PG 25 mmHg RVSP 30.00 mmHg [ 10.00 - 36.00 ] PA Pressure 5.00 mmHg [ 10.00 - 36.00 ] 2D/MM Value Range Doppler Value Range - FINDINGS: Aorta: Normal aortic root. Left Ventricle: Mild concentric left ventricular hypertrophy. Severe enlargement of left ventricle cavity. Severe global left ventricular systolic dysfunction. Possible thrombus seen--sessile on the lateral wall in the four-chamber view. Ejection Fraction is estimated to be 15 to 20 %. Left Atrium: The left atrium is normal in size. Right Ventricle: Normal right ventricular size. Normal right ventricular systolic function. Linear artifact in right ventricle suggestive of catheter(s), pacemaker lead(s), or ICD lead(s). Right Atrium: The right atrium is normal in size. Aortic Valve: Normal structure of the aortic valve. Mitral Valve: Normal structure of the mitral valve. Pulmonic Valve: Pulmonic valve not well visualized. Tricuspid Valve: Trivial regurgitation in the tricuspid valve. Pericardium: There is an anterior echo free space consistent with epicardial fat pad. CONCLUSIONS: Mild concentric left ventricular hypertrophy. Severe enlargement of left ventricle cavity. Severe global left ventricular systolic dysfunction. Possible thrombus seen--sessile on the lateral wall in the four-chamber view. Ejection Fraction is estimated to be 15 to 20 %. Normal right ventricular size. Normal right ventricular systolic function. Linear artifact in right ventricle suggestive of catheter(s), pacemaker lead(s), or ICD lead(s). Normal structure of the mitral valve. Normal structure of the aortic valve. Trivial regurgitation in the tricuspid valve. Electronically Signed By: Dr Racheal Saul 11/10/2024 11:02:13 AM ESTHETICIAN MAKEUP ARTIST Procedure Note Racheal Saul MD - 11/10/[address] [address] Limited Echocardiogram Report Patient Name: AGUSTIN GOMEZ D : 1965 Study Date: 11/10/2024 9:09:45 AM Gender: F Tech: Location: [id number] Ref Provider: RACHEAL SAUL Height(Cm): BSA: Weight(Kg): Quality: Good PROCEDURES: Echocardiographic Report: Limited transthoracic echocardiogram with 2D and contrast. INDICATIONS: hx apical clot. MEASUREMENTS: 2D/MM Value Range Doppler ValueRange Estimated EF 15 to 20 % TR Peak Frank 2.52 m/s [ 1.00- 2.80 ] TR Peak PG 25 mmHg RVSP 30.00 mmHg [ 10.00 - 36.00 ] PA Pressure 5.00 mmHg [ 10.00 - 36.00 ] 2D/MM Value Range Doppler ValueRange - FINDINGS: Aorta: Normal aortic root. Left Ventricle: Mild concentric left ventricular hypertrophy. Severe enlargement of leftventricle cavity. Severe global left ventricular systolic dysfunction. Possiblethrombus seen--sessile on the lateral wall in the four-chamber view. EjectionFraction is estimated to be 15 to 20 %. Left Atrium: The left atrium is normal in size. Right Ventricle: Normal right ventricular size. Normal right ventricular systolic function.Linear artifact in right ventricle suggestive of catheter(s), pacemaker lead(s),or ICD lead(s). Right Atrium: The right atrium is normal in size. Aortic Valve: Normal structure of the aortic valve. Mitral Valve: Normal structure of the mitral valve. Pulmonic Valve: Pulmonic valve not well visualized. Tricuspid Valve: Trivial regurgitation in the tricuspid valve. Pericardium: There is an anterior echo free space consistent with epicardial fat pad. CONCLUSIONS: Mild concentric left ventricular hypertrophy. Severe enlargement of leftventricle cavity. Severe global left ventricular systolic dysfunction. Possiblethrombus seen--sessile on the lateral wall in the four-chamber view. EjectionFraction is estimated to be 15 to 20 %. Normal right ventricular size. Normal right ventricular systolic function.Linear artifact in right ventricle suggestive of catheter(s), pacemaker lead(s),or ICD lead(s). Normal structure of the mitral valve. Normal structure of the aortic valve. Trivial regurgitation in the tricuspid valve. Electronically Signed By: Dr Racheal Saul 11/10/2024 11:02:13 AM ESTHETICIAN MAKEUP ARTIST us Racheal Saul MD CV ECHO PROCEDURES Final Resu lt * (ABNORMAL) POCT glucose (11/10/2024 8:00 AM ESTHETICIAN MAKEUP ARTIST) [facility] Glucose, POC 247(H) 70 - 199 mg/dL Blood 11/10/2024 8:00 AM ESTHETICIAN MAKEUP ARTIST 11/10/2024 8:00 AM ESTHETICIAN MAKEUP ARTIST us Jaylene Huang MD LAB POCT ORDERABLES - DEVICE Final Result Performing Organization Address [facility] Co de Phone Number ALLY CUMMINGS ([place]) 1 [facility] [place] [address] * eGFR (11/10/2024 2:27 AM ESTHETICIAN MAKEUP ARTIST) [facility] eGFR >90 >=60 mL/min/1. 73 m2 Comment: Interpretive Data Reference Interval Normal >/= 90 mL/min/1.73m2 Mildly decreased* 60 - 89 mL/min/1.73m2 Mildly to moderately decreased 45 - 59 mL/min/1.73m2 Moderately to severely decreased 30 - 44 mL/min/1.73m2 Severely decreased 15 - 29 mL/min/1.73m2 Kidney Failure < 15 mL/min/1.73m2 *Relative to young adult level Estimated glomerular filtration rate is determined by the 2020 CKD-EPI equation recommended by the National Kidney Foundation (A Unifying Approach to GFR Estimation: Recommendations of the NKF-ASK Task Force on Reassessing the Inclusion of Race in Diagnosing Kidney Disease, JASN 2020). The CKD-EPI equation should not be used for patients with unstable renal function and has not been validated in children and those over 70. Current interpretive data was last reviewed 2021. Blood 11/10/2024 2:27 AM ESTHETICIAN MAKEUP ARTIST 11/10/2024 2:58 AM ESTHETICIAN MAKEUP ARTIST us Sanjeev Gonzales MD LAB BLOOD ORDERABLES Final Resu lt Performing Organization Address City/[facility]/ZIP Co de Phone Number ALLY CUMMINGS ([place]) 1 [facility] [place] [address] * Differential, auto (11/10/2024 2:27 AM ESTHETICIAN MAKEUP ARTIST) Pathologist [facility] Neutrophil abs 4.5 1.5 - 6.5 K/cumm Imm gran abs 0.1 0.0 - 0.1 K/cumm [facility] ([place]) Lymphocyte abs 1.4 0.8 - 3.3 K/cumm [facility] ([place]) Monocyte abs 0.6 0.2 - 0.8 K/cumm [facility] ([place]) Eosinophil abs 0.1 0.0 - 0.5 K/cumm [facility] ([place]) Basophil abs 0.0 0.0 - 0.1 K/cumm [facility] ([place]) Neutrophil pct 67.4 % [facility] ([place]) Comment: Interpretive Data Percent cell count reference ranges are not reported, since discordance with absolute values may lead to misinterpretation of CBC data. Current Interpretive Data was last revised on 2018. Imm gran pct 0.7 % [facility] ([place]) Comment: Interpretive Data Percent cell count reference ranges are not reported, since discordance with absolute values may lead to misinterpretation of CBC data. Current Interpretive Data was last revised on 2018. Lymphocyte pct 21.4 % [facility] ([place]) Comment: Interpretive Data Percent cell count reference ranges are not reported, since discordance with absolute values may lead to misinterpretation of CBC data. Current Interpretive Data was last revised on 2018. Monocyte pct 8.7 % [facility] ([place]) Comment: Interpretive Data Percent cell count reference ranges are not reported, since discordance with absolute values may lead to misinterpretation of CBC data. Current Interpretive Data was last revised on 2018. Eosinophil pct 1.2 % [facility] ([place]) Comment: Interpretive Data Percent cell count reference ranges are not reported, since discordance with absolute values may lead to misinterpretation of CBC data. Current Interpretive Data was last revised on 2018. Basophil pct 0.6 % [facility] ([place]) Comment: Interpretive Data Percent cell count reference ranges are not reported, since discordance with absolute values may lead to misinterpretation of CBC data. Current Interpretive Data was last revised on 2018. Blood 11/10/2024 2:27 AM ESTHETICIAN MAKEUP ARTIST 11/10/2024 2:59 AM ESTHETICIAN MAKEUP ARTIST us Sanjeev T. Gonzales MD LAB BLOOD ORDERABLES Final Resu lt Performing Organization Address City/State/[facility] Co de Phone Number [facility] ([place]) 7 [facility] Department [place] [address] * (ABNORMAL) Pro B-type natriuretic peptide (11/10/2024 2:27 AM ESTHETICIAN MAKEUP ARTIST) NT-proBNP 3,012(H) <=300 pg/mL Comment: Interpretive Comments: A. Dyspnea in Acute Care Setting All Ages: < 300 pg/ml, acute heart failure unlikely. < 50 yrs: 300 - 450 pg/ml, further investigation warranted. > 450 pg/ml, acute heart failure likely. 50 - 74 yrs: 300 - 900 pg/ml, further investigation warranted. > 900 pg/ml, acute heart failure likely . > or = 75 yrs: 450 - 1800 pg/ml, further investigation warranted. > 1800 pg/ml, acute heart failure likely. B. Non-acute Setting < 75 yrs < 125 pg/ml, rules out heart failure. > or = 125 pg/ml, further investigation warranted. > or = 75 yrs < 450 pg/ml, rules out heart failure. > or = 450 pg/ml, further investigation warranted. - Knowledge of each individual patient's NT-proBNP range may be more useful than using similar cut-points for every patient. Please note that marked elevations in NT-proBNP levels may be observed in state other than Left Ventricular Congestive Failure, including: acute coronary syndromes, right heart strain/failure (including pulmonary embolism and cor pulmonale), critical illness, renal failure, as well as advanced age. - References: 1. Miguel MARIE et.al. Eur Heart J. 2006:27:330-337. 2. Tyrese RW, Isela AM. J. AM Shannan Cardiol: Cardiovasc Imag. 2009;2: 216- 225. Interpretive Data Last Revised Date: 2018. Blood 11/10/2024 2:27 AM ESTHETICIAN MAKEUP ARTIST 11/10/2024 2:58 AM ESTHETICIAN MAKEUP ARTIST us Jaylene Huang MD LAB BLOOD ORDERABLES Final Re sult [facility] ([place]) 1 [facility] Department [place] [address] * (ABNORMAL) CBC with auto differential (11/10/2024 2:27 AM ESTHETICIAN MAKEUP ARTIST) WBC 6.7 3.8 - 9.9 K/cumm Hgb 7.9(L) 11.9 - 15.5 g/dL [facility] ([place]) Hct 31.4(L) 35.6 - 45.5 % [facility] ([place]) Plt 309 150 - 400 K/cumm [facility] ([place]) MPV 9.7 9.1 - 12.3 fL [facility] ([place]) RBC 3.89(L) 3.90 - 5.20 M/cumm [facility] ([place]) MCV 80.7(L) 81.3 - 96.4 fL [facility] ([place]) MCH 20.3(L) 27.1 - 33.3 pg [facility] ([place]) MCHC 25.2(L) 32.3 - 35.7 g/dL [facility] ([place]) RDW CV 28.6(H) 11.1 - 14.9 % [facility] ([place]) RDW SD 79.7(H) 35.7 - 48.1 fL [facility] ([place]) NRBC abs 0.04(H) 0.00 - 0.01 K/cumm [facility] ([place]) Blood 11/10/2024 2:27 AM ESTHETICIAN MAKEUP ARTIST 11/10/2024 2:59 AM ESTHETICIAN MAKEUP ARTIST us Sanjeev Gonzales MD LAB BLOOD ORDERABLES Final Resu lt [facility] ([place]) 1 [facility] Department [place] [address] * Magnesium (11/10/2024 2:27 AM ESTHETICIAN MAKEUP ARTIST) Pathologist [facility] Magnesium 2.3 1.4 - 2.5 mg/dL Blood 11/10/2024 2:27 AM ESTHETICIAN MAKEUP ARTIST 11/10/2024 2:58 AM ESTHETICIAN MAKEUP ARTIST us Sanjeev Gonzales MD LAB BLOOD ORDERABLES Final Resu lt [facility] ([place]) 1 [facility] Department [place] [address] * (ABNORMAL) Comprehensive metabolic panel (11/10/2024 2:27 AM ESTHETICIAN MAKEUP ARTIST) Sodium 140 135 - 145 mmol/L Potassium, pl 4.1 3.3 - 4.9 mmol/L [facility] ([place]) Chloride 100 97 - 110 mmol/L [facility] ([place]) CO2 27 22 - 32 mmol/L [facility] ([place]) Anion gap 14 2 - 15 mmol/L [facility] ([place]) BUN 18 6 - 25 mg/dL [facility] ([place]) Creatinine 0.49(L) 0.60 - 1.10 mg/dL [facility] ([place]) Glucose 277(H) 70 - 199 mg/dL [facility] ([place]) Comment: Interpretive Data Fasting glucose >/= 126 mg/dl is diagnostic for diabetes. Fasting is defined as no caloric intake for at least 8 hours. Fasting glucose between 100 mg/dl to 125 mg/dl is diagnostic of prediabetes. In a patient with classic symptoms of hyperglycemia or hyperglycemic crisis, a random glucose >/= 200 mg/dl is diagnostic for diabetes. In the absence of unequivocal hyperglycemia, results should be confirmed by repeat testing. The classification and Diagnosis of Diabetes Diabetes Care 2021; 46: S19-S40. Current interpretive data was last revised 2022. Calcium 8.5 8.5 - 10.3 mg/dL [facility] ([place]) Bilirubin, total 0.5 0.1 - 1.2 mg/dL [facility] ([place]) Protein, pl 5.8(L) 6.5 - 8.5 g/dL [facility] ([place]) Albumin 4.3 3.5 - 5.0 g/dL [facility] ([place]) Alk phos 62 40 - 130 Units/L [facility]) ALT 23 7 - 45 Units/L [facility] ([place]) AST 13 10 - 45 Units/L [facility] ([place]) Blood 11/10/2024 2:27 AM ESTHETICIAN MAKEUP ARTIST 11/10/2024 2:58 AM ESTHETICIAN MAKEUP ARTIST us Sanjeev oGnzales MD LAB BLOOD ORDERABLES Final Resu lt Performing Organization Address City/[facility]/ZIP Co de Phone Number [facility] ([place]) 1 [facility] [place] [address] * (ABNORMAL) POCT glucose (11/10/2024 1:48 AM ESTHETICIAN MAKEUP ARTIST) Glucose, POC 295(H) 70 - 199 mg/dL Blood 11/10/2024 1:48 AM ESTHETICIAN MAKEUP ARTIST 11/10/2024 1:48 AM ESTHETICIAN MAKEUP ARTIST Jaylene Huang MD LAB POCT ORDERABLES - DEVICE Final Result Performing Organization Address [facility] Co de Phone Number [facility] ([place]) 1 [facility] [place] [address] * (ABNORMAL) POCT glucose (11/09/2024 8:39 PM ESTHETICIAN MAKEUP ARTIST) Glucose, POC 233(H) 70 - 199 mg/dL Blood 11/09/2024 8:39 PM ESTHETICIAN MAKEUP ARTIST 11/09/2024 8:39 PM ESTHETICIAN MAKEUP ARTIST Jalyene Huang MD LAB POCT ORDERABLES - DEVICE Final Result Performing Organization Address City/[facility] Co de Phone Number [facility] ([place]) 1 [facility] [place] [address] * (ABNORMAL) POCT glucose (11/09/2024 5:23 PM ESTHETICIAN MAKEUP ARTIST) Glucose, POC 343(H) 70 - 199 mg/dL Blood 11/09/2024 5:23 PM ESTHETICIAN MAKEUP ARTIST 11/09/2024 5:23 PM ESTHETICIAN MAKEUP ARTIST us Jaylene Huang MD LAB POCT ORDERABLES - DEVICE Final Result [facility] ([place]) 1 [facility] [place] [address] * (ABNORMAL) POCT glucose (11/09/2024 11:06 AM ESTHETICIAN MAKEUP ARTIST) Glucose, POC 292(H) 70 - 199 mg/dL Blood 11/09/2024 11:0 6 AM ESTHETICIAN MAKEUP ARTIST 11/09/2024 11:06 AM ESTHETICIAN MAKEUP ARTIST Jaylene Huang MD LAB POCT ORDERABLES - DEVICE Final Result Performing Organization Address [facility] Co de Phone Number [facility] ([place]) 1 [facility] [place] [address] * XR Chest 1 View (11/09/2024 10:32 AM ESTHETICIAN MAKEUP ARTIST) Anatomical Region Laterality Modality Body, Chest N/A Computed Radiogr aphy 11/09/2024 10:5 9 AM ESTHETICIAN MAKEUP ARTIST Narrative 11/09/2024 11:02 AM ESTHETICIAN MAKEUP ARTIST EXAM DESCRIPTION: XR CHEST 1 VIEW REASON FOR STUDY: sob SOB TECHNIQUE: 1 radiographic view(s) of the chest. COMPARISON: 10/27/2024 FINDINGS: LUNGS: Small lung volumes. There is elevation the right hemidiaphragm. Mild atelectasis at the right lung base. There is a mild opacity in the lingula probably atelectasis. HEART/MEDIASTINUM: Moderate cardiomegaly LINES/TUBES: Cervical and thoracolumbar fusion are noted. There is a pacemaker with a lead projecting over the right ventricle. Multiple thoracic vertebroplasties are seen. BONES: No acute osseous abnormality. IMPRESSION: Mild opacity in the lingula probably atelectasis. THIS IS AN ELECTRONICALLY VERIFIED FINAL REPORT 11/09/2024 11:02 AM - Electronically signed by Javan Mcgill M.D. KN: ANNA Report ID: [id number] Reading Location: [id number] Procedure Note Javan Mcgill MD - 11/09/2024 EXAM DESCRIPTION: XR CHEST 1 VIEW REASON FOR STUDY: sob SOB TECHNIQUE: 1 radiographic view(s) of the chest. COMPARISON: 10/27/2024 FINDINGS: LUNGS: Small lung volumes. There is elevation the right hemidiaphragm.Mild atelectasis at the right lung base. There is a mild opacity in thelingula probably atelectasis. HEART/MEDIASTINUM: Moderate cardiomegaly LINES/TUBES: Cervical and thoracolumbar fusion are noted. There is a pacemaker with a lead projecting over the right ventricle. Multiplethoracic vertebroplasties are seen. BONES: No acute osseous abnormality. IMPRESSION: Mild opacity in the lingula probably atelectasis. THIS IS AN ELECTRONICALLY VERIFIED FINAL REPORT 11/09/2024 11:02 AM - Electronically signed by Javan Mcgill M.D. KN: ANNA Report ID: [id number] Reading Location: [id number] Jaylene Huang MD IMG XR PROCEDURES Final Resul t * POCT glucose (11/09/2024 7:16 AM ESTHETICIAN MAKEUP ARTIST) Pathologist [facility] Glucose, POC 174 70 - 199 mg/dL Blood 11/09/2024 7:16 AM ESTHETICIAN MAKEUP ARTIST 11/09/2024 7:16 AM ESTHETICIAN MAKEUP ARTIST Jaylene Huang MD LAB POCT ORDERABLES - DEVICE Final Result [facility] [place]) 1 [facility] Department [place] [address] * eGFR (11/09/2024 2:08 AM ESTHETICIAN MAKEUP ARTIST) Pathologist [facility] eGFR >90 >=60 mL/min/1. 73 m2 Comment: Interpretive Data Reference Interval Normal >/= 90 mL/min/1.73m2 Mildly decreased* 60 - 89 mL/min/1.73m2 Mildly to moderately decreased 45 - 59 mL/min/1.73m2 Moderately to severely decreased 30 - 44 mL/min/1.73m2 Severely decreased 15 - 29 mL/min/1.73m2 Kidney Failure < 15 mL/min/1.73m2 *Relative to young adult level Estimated glomerular filtration rate is determined by the 2020 CKD-EPI equation recommended by the National Kidney Foundation (A Unifying Approach to GFR Estimation: Recommendations of the NKF-ASK Task Force on Reassessing the Inclusion of Race in Diagnosing Kidney Disease, JASN 2020). The CKD-EPI equation should not be used for patients with unstable renal function and has not been validated in children and those over 70. Current interpretive data was last reviewed 2021. Blood 11/09/2024 2:08 AM ESTHETICIAN MAKEUP ARTIST 11/09/2024 3:53 AM ESTHETICIAN MAKEUP ARTIST us Sanjeev Gonzales MD LAB BLOOD ORDERABLES Final Resu lt [facility] ([place]) 1 [facility] Department [place] [address] * Differential, auto (11/09/2024 2:08 AM ESTHETICIAN MAKEUP ARTIST) Neutrophil abs 4.0 1.5 - 6.5 K/cumm Imm gran abs 0.1 0.0 - 0.1 K/cumm [facility] ([place]) Lymphocyte abs 1.8 0.8 - 3.3 K/cumm [facility] ([place]) Monocyte abs 0.6 0.2 - 0.8 K/cumm [facility] ([place]) Eosinophil abs 0.1 0.0 - 0.5 K/cumm [facility] ([place]) Basophil abs 0.0 0.0 - 0.1 K/cumm [facility] ([place]) Neutrophil pct 60.7 % [facility] ([place]) Comment: Interpretive Data Percent cell count reference ranges are not reported, since discordance with absolute values may lead to misinterpretation of CBC data. Current Interpretive Data was last revised on 2018. Imm gran pct 0.8 % [facility] ([place]) Comment: Interpretive Data Percent cell count reference ranges are not reported, since discordance with absolute values may lead to misinterpretation of CBC data. Current Interpretive Data was last revised on 2018. Lymphocyte pct 27.2 % [facility] ([place]) Comment: Interpretive Data Percent cell count reference ranges are not reported, since discordance with absolute values may lead to misinterpretation of CBC data. Current Interpretive Data was last revised on 2018. Monocyte pct 9.2 % [facility] ([place]) Comment: Interpretive Data Percent cell count reference ranges are not reported, since discordance with absolute values may lead to misinterpretation of CBC data. Current Interpretive Data was last revised on 2018. Eosinophil pct 1.5 % [facility] ([place]) Comment: Interpretive Data Percent cell count reference ranges are not reported, since discordance with absolute values may lead to misinterpretation of CBC data. Current Interpretive Data was last revised on 2018. Basophil pct 0.6 % [facility] ([place]) Comment: Interpretive Data Percent cell count reference ranges are not reported, since discordance with absolute values may lead to misinterpretation of CBC data. Current Interpretive Data was last revised on 2018. Blood 11/09/2024 2:08 AM ESTHETICIAN MAKEUP ARTIST 11/09/2024 3:56 AM ESTHETICIAN MAKEUP ARTIST us Sanjeev Gonzales MD LAB BLOOD ORDERABLES Final Resu lt [facility] ([place]) 1 [facility] Department [place] [address] * (ABNORMAL) POCT glucose (11/09/2024 2:08 AM ESTHETICIAN MAKEUP ARTIST) Glucose, POC 207(H) 70 - 199 mg/dL Blood 11/09/2024 2:08 AM ESTHETICIAN MAKEUP ARTIST 11/09/2024 2:08 AM ESTHETICIAN MAKEUP ARTIST us Kerline Lambert MD LAB POCT ORDERABLES - DEVICE Fi nal Result [facility] ([place]) 1 [facility] Department [place] [address] * (ABNORMAL) CBC with auto differential (11/09/2024 2:08 AM ESTHETICIAN MAKEUP ARTIST) Pathologist [facility] WBC 6.5 3.8 - 9.9 K/cumm Hgb 7.5(L) 11.9 - 15.5 g/dL [facility] ([place]) Hct 30.2(L) 35.6 - 45.5 % [facility] ([place]) Plt 321 150 - 400 K/cumm [facility] ([place]) MPV 10.0 9.1 - 12.3 fL [facility] ([place]) RBC 3.76(L) 3.90 - 5.20 M/cumm [facility] ([place]) MCV 80.3(L) 81.3 - 96.4 fL [facility] ([place]) MCH 19.9(L) 27.1 - 33.3 pg [facility] ([place]) MCHC 24.8(L) 32.3 - 35.7 g/dL [facility] ([place]) RDW CV 28.4(H) 11.1 - 14.9 % [facility] ([place]) RDW SD 77.5(H) 35.7 - 48.1 fL [facility] ([place]) NRBC abs 0.03(H) 0.00 - 0.01 K/cumm [facility] ([place]) Blood 11/09/2024 2:08 AM ESTHETICIAN MAKEUP ARTIST 11/09/2024 3:56 AM ESTHETICIAN MAKEUP ARTIST us Sanjeev Gonzales MD LAB BLOOD ORDERABLES Final Resu lt [facility] ([place]) 1 [facility] Department [place] [address] * Magnesium (11/09/2024 2:08 AM ESTHETICIAN MAKEUP ARTIST) [facility] Magnesium 2.3 1.4 - 2.5 mg/dL Blood 11/09/2024 2:08 AM ESTHETICIAN MAKEUP ARTIST 11/09/2024 3:53 AM ESTHETICIAN MAKEUP ARTIST us Sanjeev Gonzales MD LAB BLOOD ORDERABLES Final Resu lt [facility] ([place]) 1 [facility] Department [place] [address] * (ABNORMAL) Comprehensive metabolic panel (11/09/2024 2:08 AM ESTHETICIAN MAKEUP ARTIST) Sodium 139 135 - 145 mmol/L Potassium, pl 4.2 3.3 - 4.9 mmol/L [facility] ([place]) Chloride 100 97 - 110 mmol/L [facility] ([place]) CO2 28 22 - 32 mmol/L [facility] ([place]) Anion gap 11 2 - 15 mmol/L [facility] ([place]) BUN 17 6 - 25 mg/dL [facility] ([place]) Creatinine 0.50(L) 0.60 - 1.10 mg/dL [facility] ([place]) Glucose 186 70 - 199 mg/dL [facility] ([place]) Comment: Interpretive Data Fasting glucose >/= 126 mg/dl is diagnostic for diabetes. Fasting is defined as no caloric intake for at least 8 hours. Fasting glucose between 100 mg/dl to 125 mg/dl is diagnostic of prediabetes. In a patient with classic symptoms of hyperglycemia or hyperglycemic crisis, a random glucose >/= 200 mg/dl is diagnostic for diabetes. In the absence of unequivocal hyperglycemia, results should be confirmed by repeat testing. The classification and Diagnosis of Diabetes Diabetes Care 2021; 46: S19-S40. Current interpretive data was last revised 2022. Calcium 9.1 8.5 - 10.3 mg/dL [facility] ([place]) Bilirubin, total 0.5 0.1 - 1.2 mg/dL [facility] ([place]) Protein, pl 5.5(L) 6.5 - 8.5 g/dL [facility] ([place]) Albumin 4.1 3.5 - 5.0 g/dL [facility] ([place]) Alk phos 61 40 - 130 Units/L [facility] ([place]) ALT 20 7 - 45 Units/L [facility] ([place]) AST 13 10 - 45 Units/L [facility] ([place]) Blood 11/09/2024 2:08 AM ESTHETICIAN MAKEUP ARTIST 11/09/2024 3:53 AM ESTHETICIAN MAKEUP ARTIST us Sanjeev Gonzales MD LAB BLOOD ORDERABLES Final Resu lt Performing Organization Address [facility] Co de Phone Number [facility] ([place]) 1 [facility] [place] [address] * (ABNORMAL) POCT glucose (11/08/2024 8:36 PM ESTHETICIAN MAKEUP ARTIST) Glucose, POC 264(H) 70 - 199 mg/dL Blood 11/08/2024 8:36 PM ESTHETICIAN MAKEUP ARTIST 11/08/2024 8:36 PM ESTHETICIAN MAKEUP ARTIST us Kerline Lambert MD LAB POCT ORDERABLES - DEVICE Fi nal Result Performing Organization Address [facility] Co de Phone Number [facility] ([place]) 1 [facility] [place] [address] * (ABNORMAL) POCT glucose (11/08/2024 4:57 PM ESTHETICIAN MAKEUP ARTIST) Glucose, POC 291(H) 70 - 199 mg/dL Blood 11/08/2024 4:57 PM ESTHETICIAN MAKEUP ARTIST 11/08/2024 4:57 PM ESTHETICIAN MAKEUP ARTIST us Kerline Lambert MD LAB POCT ORDERABLES - DEVICE Fi nal Result Performing Organization Address [facility] de Phone Number [facility] ([place]) 1 [facility] [place] [address] * (ABNORMAL) Troponin T high-sensitivity (11/08/2024 2:31 PM ESTHETICIAN MAKEUP ARTIST) Trop T hs 30(H) <=14 ng/L Comment: Interpretive Data For further hscTnT resources including the diagnostic algorithm and an aid in interpretation, copy and paste this link: https://nrl.testcatalog.org/show/hsTrop Current Interpretive Data last revised 2020. Blood 11/08/2024 2:3 1 PM ESTHETICIAN MAKEUP ARTIST 11/08/2024 2:41 PM ESTHETICIAN MAKEUP ARTIST us Kerline Lambert MD LAB BLOOD ORDERABLES Final Resu lt Performing Organization Address [facility] Co de Phone Number [facility] ([place]) 1 [facility] [place] [address] * POCT glucose (11/08/2024 12:04 PM ESTHETICIAN MAKEUP ARTIST) Glucose, POC 173 70 - 199 mg/dL Blood 11/08/2024 12:0 4 PM ESTHETICIAN MAKEUP ARTIST 11/08/2024 12:04 PM ESTHETICIAN MAKEUP ARTIST us Kerline Lambert MD LAB POCT ORDERABLES - DEVICE Fi nal Result Performing Organization Address [facility] de Phone Number [facility] ([place]) 1 [facility] [place] [address] * POCT glucose (11/08/2024 8:00 AM ESTHETICIAN MAKEUP ARTIST) Glucose, POC 119 70 - 199 mg/dL Blood 11/08/2024 8:00 AM ESTHETICIAN MAKEUP ARTIST 11/08/2024 8:00 AM ESTHETICIAN MAKEUP ARTIST us Kerline Lambert MD LAB POCT ORDERABLES - DEVICE Fi nal Result Performing Organization Address [facility] de Phone Number ALLY CUM[facility] ([place]) 1 [facility] [place] [address] * (ABNORMAL) Troponin T high-sensitivity (11/08/2024 7:44 AM ESTHETICIAN MAKEUP ARTIST) Trop T hs 30(H) <=14 ng/L Comment: Interpretive Data For further hscTnT resources including the diagnostic algorithm and an aid in interpretation, copy and paste this link: https://nrl.testcatalog.org/show/hsTrop Current Interpretive Data last revised 2020. Blood 11/08/2024 7:44 AM ESTHETICIAN MAKEUP ARTIST 11/08/2024 8:42 AM ESTHETICIAN MAKEUP ARTIST Sanjeev Gonzales MD LAB BLOOD ORDERABLES Final Resu lt Performing Organization Address [facility]/ZIP Co de Phone Number [facility] [place]) 1 [facility] [place] [address] * (ABNORMAL) Troponin T high-sensitivity (11/08/2024 2:30 AM ESTHETICIAN MAKEUP ARTIST) Trop T hs 36(H) <=14 ng/L Comment: Interpretive Data For further hscTnT resources including the diagnostic algorithm and an aid in interpretation, copy and paste this link: https://nrl.testcatalog.org/show/hsTrop Current Interpretive Data last revised 2020. Blood 11/08/2024 2:30 AM ESTHETICIAN MAKEUP ARTIST 11/08/2024 2:34 AM ESTHETICIAN MAKEUP ARTIST Sanjeev Gonzales MD LAB BLOOD ORDERABLES Final Resu lt Performing Organization Address [facility] Co de Phone Number ALL[facility] ([place]) 1 [facility] [place] [address] * eGFR (11/08/2024 2:30 AM ESTHETICIAN MAKEUP ARTIST) eGFR >90 >=60 mL/min/1. 73 m2 Comment: Interpretive Data Reference Interval Normal >/= 90 mL/min/1.73m2 Mildly decreased* 60 - 89 mL/min/1.73m2 Mildly to moderately decreased 45 - 59 mL/min/1.73m2 Moderately to severely decreased 30 - 44 mL/min/1.73m2 Severely decreased 15 - 29 mL/min/1.73m2 Kidney Failure < 15 mL/min/1.73m2 *Relative to young adult level Estimated glomerular filtration rate is determined by the 2020 CKD-EPI equation recommended by the National Kidney Foundation (A Unifying Approach to GFR Estimation: Recommendations of the NKF-ASK Task Force on Reassessing the Inclusion of Race in Diagnosing Kidney Disease, JASN 2020). The CKD-EPI equation should not be used for patients with unstable renal function and has not been validated in children and those over 70. Current interpretive data was last reviewed 2021. Blood 11/08/2024 2:30 AM ESTHETICIAN MAKEUP ARTIST 11/08/2024 2:34 AM ESTHETICIAN MAKEUP ARTIST us Sanjeev Gonzales MD LAB BLOOD ORDERABLES Final Resu lt [facility] ([place]) 1 [facility] Department [place] [address] * Differential, auto (11/08/2024 2:30 AM ESTHETICIAN MAKEUP ARTIST) Neutrophil abs 6.1 1.5 - 6.5 K/cumm Imm gran abs 0.1 0.0 - 0.1 K/cumm [facility] ([place]) Lymphocyte abs 1.7 0.8 - 3.3 K/cumm [facility] ([place]) Monocyte abs 0.6 0.2 - 0.8 K/cumm [facility] ([place]) Eosinophil abs 0.1 0.0 - 0.5 K/cumm [facility] ([place]) Basophil abs 0.0 0.0 - 0.1 K/cumm [facility] ([place]) Neutrophil pct 71.2 % [facility] ([place]) Comment: Interpretive Data Percent cell count reference ranges are not reported, since discordance with absolute values may lead to misinterpretation of CBC data. Current Interpretive Data was last revised on 2018. Imm gran pct 0.9 % [facility] ([place]) Comment: Interpretive Data Percent cell count reference ranges are not reported, since discordance with absolute values may lead to misinterpretation of CBC data. Current Interpretive Data was last revised on 2018. Lymphocyte pct 20.3 % [facility] ([place]) Comment: Interpretive Data Percent cell count reference ranges are not reported, since discordance with absolute values may lead to misinterpretation of CBC data. Current Interpretive Data was last revised on 2018. Monocyte pct 6.8 % [facility] ([place]) Comment: Interpretive Data Percent cell count reference ranges are not reported, since discordance with absolute values may lead to misinterpretation of CBC data. Current Interpretive Data was last revised on 2018. Eosinophil pct 0.6 % [facility] ([place]) Comment: Interpretive Data Percent cell count reference ranges are not reported, since discordance with absolute values may lead to misinterpretation of CBC data. Current Interpretive Data was last revised on 2018. Basophil pct 0.2 % [facility] ([place]) Comment: Interpretive Data Percent cell count reference ranges are not reported, since discordance with absolute values may lead to misinterpretation of CBC data. Current Interpretive Data was last revised on 2018. Blood 11/08/2024 2:30 AM ESTHETICIAN MAKEUP ARTIST 11/08/2024 2:34 AM ESTHETICIAN MAKEUP ARTIST us Sanjeev Gonzales MD LAB BLOOD ORDERABLES Final Resu lt [facility] ([place]) 1 [facility] Department [place] [address] * (ABNORMAL) Pro B-type natriuretic peptide (11/08/2024 2:30 AM ESTHETICIAN MAKEUP ARTIST) NT-proBNP 938(H) <=300 pg/mL Comment: Interpretive Comments: A. Dyspnea in Acute Care Setting All Ages: < 300 pg/ml, acute heart failure unlikely. < 50 yrs: 300 - 450 pg/ml, further investigation warranted. > 450 pg/ml, acute heart failure likely. 50 - 74 yrs: 300 - 900 pg/ml, further investigation warranted. > 900 pg/ml, acute heart failure likely . > or = 75 yrs: 450 - 1800 pg/ml, further investigation warranted. > 1800 pg/ml, acute heart failure likely. B. Non-acute Setting < 75 yrs < 125 pg/ml, rules out heart failure. > or = 125 pg/ml, further investigation warranted. > or = 75 yrs < 450 pg/ml, rules out heart failure. > or = 450 pg/ml, further investigation warranted. - Knowledge of each individual patient's NT-proBNP range may be more useful than using similar cut-points for every patient. Please note that marked elevations in NT-proBNP levels may be observed in state other than Left Ventricular Congestive Failure, including: acute coronary syndromes, right heart strain/failure (including pulmonary embolism and cor pulmonale), critical illness, renal failure, as well as advanced age. - References: 1. Miguel MARIE et.al. Eur Heart J. 2006:27:330-337. 2. Tyrese RESENDIZ, Isela FRANCOIS. J. AM Shannan Cardiol: Cardiovasc Imag. 2009;2: 216- 225. Interpretive Data Last Revised Date: 2018. Blood 11/08/2024 2:30 AM ESTHETICIAN MAKEUP ARTIST 11/08/2024 2:34 AM ESTHETICIAN MAKEUP ARTIST us Sanjeev Gonzales MD LAB BLOOD ORDERABLES Final Resu lt [facility] ([place]) 1 [facility] Department [place] [address] * (ABNORMAL) CBC with auto differential (11/08/2024 2:30 AM ESTHETICIAN MAKEUP ARTIST) WBC 8.6 3.8 - 9.9 K/cumm Hgb 8.9(L) 11.9 - 15.5 g/dL [facility] ([place]) Hct 36.0 35.6 - 45.5 % [facility] ([place]) Plt 375 150 - 400 K/cumm [facility] ([place]) MPV 9.6 9.1 - 12.3 fL [facility] ([place]) RBC 4.52 3.90 - 5.20 M/cumm [facility] ([place]) MCV 79.6(L) 81.3 - 96.4 fL [facility] ([place]) MCH 19.7(L) 27.1 - 33.3 pg [facility] ([place]) MCHC 24.7(L) 32.3 - 35.7 g/dL [facility] ([place]) RDW CV 28.3(H) 11.1 - 14.9 % [facility] ([place]) RDW SD 76.9(H) 35.7 - 48.1 fL [facility] ([place]) NRBC abs 0.02(H) 0.00 - 0.01 K/cumm [facility] ([place]) Blood 11/08/2024 2:30 AM ESTHETICIAN MAKEUP ARTIST 11/08/2024 2:34 AM ESTHETICIAN MAKEUP ARTIST Sanjeev Gonzales MD LAB BLOOD ORDERABLES Final Resu lt Performing Organization Address [facility] Co de Phone Number [facility] ([place]) 1 [facility] [place] [address] * aPTT (11/08/2024 2:30 AM ESTHETICIAN MAKEUP ARTIST) aPTT 32 28 - 38 sec [facility] ([place]) Comment: Interpretive Data Heparin therapeutic range: 66.0 - 100.0 seconds. Range based on correlation with therapeutic heparin activity range of 0.3 - 0.7 Units/mL. Current interpretive data was last revised on 2023. Blood 11/08/2024 2:30 AM ESTHETICIAN MAKEUP ARTIST 11/08/2024 2:34 AM ESTHETICIAN MAKEUP ARTIST Narrative [facility] ([place]) - 11/08/2024 4:15 AM ESTHETICIAN MAKEUP ARTIST Baseline prior to enoxaparin initiation. Sanjeev Gonzales MD LAB BLOOD ORDERABLES Final Resu lt Performing Organization Address [facility] Co de Phone Number [facility] ([place]) 1 [facility] [place] [address] * (ABNORMAL) Protime-INR (11/08/2024 2:30 AM ESTHETICIAN MAKEUP ARTIST) PT 13.6(H) 9.7 - 13.0 sec [facility] ([place]) INR 1.25(H) 0.90 - 1.20 [facility] ([place]) Comment: Interpretive data Oral anticoagulant therapeutic ranges: Venous thromboembolism prophylaxis or treatment: 2.0-3.0 CARDIOLOGY Standard range: 2.0-3.0 High-intensity range: 2.5-3.5 Refer to indication-specific guidelines for appropriate target ranges for prosthetic heart valve replacement. Current interpretive data was last revised on 2019. Blood 11/08/2024 2:30 AM ESTHETICIAN MAKEUP ARTIST 11/08/2024 2:34 AM ESTHETICIAN MAKEUP ARTIST Narrative [facility] ([place]) - 11/08/2024 4:15 AM ESTHETICIAN MAKEUP ARTIST Baseline prior to enoxaparin initiation. Sanjeev Gonzales MD LAB BLOOD ORDERABLES Final Resu lt [facility] ([place]) 1 [facility] Department [place] [address] * (ABNORMAL) CBC without differential (11/08/2024 2:30 AM ESTHETICIAN MAKEUP ARTIST) WBC 8.6 3.8 - 9.9 K/cumm Hgb 8.9(L) 11.9 - 15.5 g/dL [facility] ([place]) Hct 35.5(L) 35.6 - 45.5 % [facility] ([place]) Plt 374 150 - 400 K/cumm [facility] ([place]) MPV 9.6 9.1 - 12.3 fL [facility] ([place]) RBC 4.47 3.90 - 5.20 M/cumm [facility] ([place]) MCV 79.4(L) 81.3 - 96.4 fL [facility] ([place]) MCH 19.9(L) 27.1 - 33.3 pg [facility] ([place]) MCHC 25.1(L) 32.3 - 35.7 g/dL [facility] ([place]) RDW CV 28.5(H) 11.1 - 14.9 % [facility] ([place]) RDW SD 76.8(H) 35.7 - 48.1 fL [facility] ([place]) NRBC abs 0.02(H) 0.00 - 0.01 K/cumm [facility] ([place]) Blood 11/08/2024 2:30 AM ESTHETICIAN MAKEUP ARTIST 11/08/2024 2:34 AM ESTHETICIAN MAKEUP ARTIST Narrative [facility] ([place]) - 11/08/2024 2:45 AM ESTHETICIAN MAKEUP ARTIST Baseline prior to enoxaparin initiation. Sanjeev Gonzales MD LAB BLOOD ORDERABLES Final Resu lt [facility] ([place]) 1 [facility] [place] [address] * Magnesium (11/08/2024 2:30 AM ESTHETICIAN MAKEUP ARTIST) Magnesium 2.4 1.4 - 2.5 mg/dL Blood 11/08/2024 2:30 AM ESTHETICIAN MAKEUP ARTIST 11/08/2024 2:34 AM ESTHETICIAN MAKEUP ARTIST us Sanjeev Gonzales MD LAB BLOOD ORDERABLES Final Resu lt Performing Organization Address City/[facility]/ZIP Co de Phone Number [facility] ([place]) 1 [facility] [place] [address] * (ABNORMAL) Lipid panel (11/08/2024 2:30 AM ESTHETICIAN MAKEUP ARTIST) Cholesterol 101 30 - 199 mg/dL Comment: Interpretive Data Ages < or = 19 years Acceptable: <170 mg/dL Borderline high: 170-199 mg/dL High: >or= 200 mg/dL Ages > or = 20 years Desirable: <200 mg/dL Borderline high: 200-239 mg/dL High: >or= 240 mg/dL Literature References: 1. Expert Panel on Integrated Guidelines for Cardiovascular Health and Risk Reduction in Children and Adolescents. Pediatrics 2011;128:S213 2. NCEP Expert Panel. Circulation 2004;110:227 Current Interpretive Data was last revised on 2018. Triglycerides 152(H) <=149 mg/dL [facility] ([place]) Comment: Interpretive Data Ages < or = 9 years Acceptable: <75 mg/dL Borderline high: 75-99 mg/dL High: >or= 100 mg/dL Ages 10 to 20 years Acceptable: <90 mg/dL Borderline high: 90-129 mg/dL High: >or= 130 mg/dL Ages > or = 20 years Desirable: <150 mg/dL Borderline high: 150-199 mg/dL High: 200-499 mg/dL Very high: >or= 499 mg/dL Literature References: 1. Expert Panel on Integrated Guidelines for Cardiovascular Health and Risk Reduction in Children and Adolescents. Pediatrics 2011;128:S213 2. NCEP Expert Panel. Circulation 2004;110:227 Current Interpretive Data was last revised on 2018. HDL 29(L) >=40 mg/dL [facility] ([place]) Comment: Interpretive Data Ages < or = 19 years Acceptable: >45 mg/dL Borderline low: 40-45 mg/dL Low: <40 mg/dL Ages > or = 20 years Desirable: >or= 60 mg/dL Low: <40 mg/dL Literature References: 1. Expert Panel on Integrated Guidelines for Cardiovascular Health and Risk Reduction in Children and Adolescents. Pediatrics 2011;128:S213 2. NCEP Expert Panel. Circulation 2004;110:227 Current Interpretive Data was last revised on 2018. LDL, calculated 46 <=129 mg/dL [facility] ([place]) Comment: Interpretive Data Ages < or = 19 years Acceptable: <110 mg/dL Borderline high: 110-129 mg/dL High: >or= 130 mg/dL Ages > or = 20 years Optimal: <100 mg/dL Near optimal: 100-129 mg/dL Borderline high: 130-159 mg/dL High: >160 mg/dL Calculated using the Darrell LDL-C estimating equation. This equation was implemented on 2024. Prior to this date LDL-C was estimated using the Friedewald equation. Literature References: 1. Expert Panel on Integrated Guidelines for Cardiovascular Health and Risk Reduction in Children and Adolescents. Pediatrics 2011;128:S213 2. NCEP Expert Panel. Circulation 2004;110:227 3. Darrell Rodriguez et al. ANGELA Cardiol. 2019February 10;5(5):540-548. doi: 10.1001/[email or web address] Current Interpretive Data was last revised on 2024. Non-HDL Cholesterol 72 mg/dL [facility] ([place]) Comment: Interpretive Data Ages < or = 19 years Acceptable: <120 mg/dL Borderline high: 120-144 mg/dL High: >145 mg/dL Ages > or = 20 years When triglycerides are >200 mg/dL, Non-HDL cholesterol is a secondary target of therapy with treatment goals that are 30 mg/dL greater than the LDL cholesterol target. Literature References: 1. Expert Panel on Integrated Guidelines for Cardiovascular Health and Risk Reduction in Children and Adolescents. Pediatrics 2011;128:S213 2. NCEP Expert Panel. Circulation 2004;110:227 Current Interpretive Data was last revised on 2018. Chol/HDL ratio 3 [facility] ([place]) Blood 11/08/2024 2:30 AM ESTHETICIAN MAKEUP ARTIST 11/08/2024 2:34 AM ESTHETICIAN MAKEUP ARTIST us Sanjeev Gonzales MD LAB BLOOD ORDERABLES Final Resu lt [facility] ([place]) 1 [facility] [place] [address] * (ABNORMAL) Comprehensive metabolic panel (11/08/2024 2:30 AM ESTHETICIAN MAKEUP ARTIST) Sodium 143 135 - 145 mmol/L Potassium, pl 4.1 3.3 - 4.9 mmol/L [facility] ([place]) Chloride 100 97 - 110 mmol/L [facility] ([place]) CO2 27 22 - 32 mmol/L [facility] ([place]) Anion gap 16(H) 2 - 15 mmol/L [facility] ([place]) BUN 22 6 - 25 mg/dL [facility] ([place]) Creatinine 0.43(L) 0.60 - 1.10 mg/dL [facility] ([place]) Glucose 117 70 - 199 mg/dL [facility] ([place]) Comment: Interpretive Data Fasting glucose >/= 126 mg/dl is diagnostic for diabetes. Fasting is defined as no caloric intake for at least 8 hours. Fasting glucose between 100 mg/dl to 125 mg/dl is diagnostic of prediabetes. In a patient with classic symptoms of hyperglycemia or hyperglycemic crisis, a random glucose >/= 200 mg/dl is diagnostic for diabetes. In the absence of unequivocal hyperglycemia, results should be confirmed by repeat testing. The classification and Diagnosis of Diabetes Diabetes Care 2021; 46: S19-S40. Current interpretive data was last revised 2022. Calcium 9.5 8.5 - 10.3 mg/dL [facility] ([place]) Bilirubin, total 0.6 0.1 - 1.2 mg/dL [facility] ([place]) Protein, pl 6.6 6.5 - 8.5 g/dL [facility] ([place]) Albumin 4.7 3.5 - 5.0 g/dL [facility] ([place]) Alk phos 77 40 - 130 Units/L [facility] ([place]) ALT 26 7 - 45 Units/L [facility] ([place]) AST 17 10 - 45 Units/L [facility] ([place]) Blood 11/08/2024 2:30 AM ESTHETICIAN MAKEUP ARTIST 11/08/2024 2:34 AM ESTHETICIAN MAKEUP ARTIST Sanjeev Gonzales MD LAB BLOOD ORDERABLES Final Resu lt [facility] ([place]) 1 [facility] [place] [address] * (ABNORMAL) Protime-INR (11/08/2024 2:24 AM ESTHETICIAN MAKEUP ARTIST) PT 13.8(H) 9.7 - 13.0 sec [facility] ([place]) INR 1.27(H) 0.90 - 1.20 [facility] ([place]) Comment: Interpretive data Oral anticoagulant therapeutic ranges: Venous thromboembolism prophylaxis or treatment: 2.0-3.0 CARDIOLOGY Standard range: 2.0-3.0 High-intensity range: 2.5-3.5 Refer to indication-specific guidelines for appropriate target ranges for prosthetic heart valve replacement. Current interpretive data was last revised on 2019. Blood 11/08/2024 2:24 AM ESTHETICIAN MAKEUP ARTIST 11/08/2024 2:34 AM ESTHETICIAN MAKEUP ARTIST Sanjeev Gonzales MD LAB BLOOD ORDERABLES Final Resu lt [facility] ([place]) 1 [facility] [employer] [place] [address] * POCT glucose (11/08/2024 1:48 AM ESTHETICIAN MAKEUP ARTIST) Glucose, POC 89 70 - 199 mg/dL Blood 11/08/2024 1:48 AM ESTHETICIAN MAKEUP ARTIST 11/08/2024 1:48 AM ESTHETICIAN MAKEUP ARTIST us Sanjeev Gonzales MD LAB POCT ORDERABLES - DEVICE Fi nal Result Performing Organization Address City/[facility]/ZIP Co de Phone Number [facility] ([place]) 1 [facility] Department [place] [address] * SCAN - RADIOLOGY/IMAGING (11/07/2024) Anatomical Region Laterality Modality Other us Provider Scanning Edited Result - Final * SCAN - LABS (11/07/2024) us Provider Scanning Edited Result - Final * SCAN - LABS (11/04/2024) us Provider Scanning Final Result * (ABNORMAL) Protime-INR (11/04/2024) INR 1.50(A) 0.90 - 1.10 EXTERNAL LAB Blood us Historical Provider LAB BLOOD ORDERABLES Jaz l Result Performing Organization Address [facility]/ZIP Co de Phone Number EXTERNAL LAB * MRI Abdomen Liver W WO Contrast (10/27/2024 12:54 PM ESTHETICIAN MAKEUP ARTIST) Anatomical Region Laterality Modality Body N/A Magnetic Resonan ce 10/27/2024 2:00 PM ESTHETICIAN MAKEUP ARTIST Impressions 10/27/2024 3:34 PM ESTHETICIAN MAKEUP ARTIST Unchanged hepatic metastatic disease. No evidence of disease progression. Dictated by: Dillon Yañez MD The radiology attending physician has personally reviewed this study, and had reviewed and/or edited this written report and agrees with it. Electronically signed by: Horace Cornell M.D. Narrative 10/27/2024 3:34 PM ESTHETICIAN MAKEUP ARTIST EXAMINATION: MAGNETIC RESONANCE IMAGING OF THE ABDOMEN WITH AND WITHOUT CONTRAST HISTORY: Metastatic well-differentiated neuroendocrine tumor TECHNIQUE: Magnetic resonance imaging of the abdomen was performed prior to and following the uneventful administration of intravenous Gadolinium contrast. Protocol: Liver Contrast: Eovist 10 mL COMPARISON: CT 06/03/2024, MRI 05/08/2023 FINDINGS: Liver: No fat or iron deposition. No surface nodularity. - Bile ducts: Normal - Focal liver lesions: There are multiple arterial enhancing lesions with hepatobiliary washout and diffusion restriction representing metastatic disease. Overall, these are not significantly changed in size. For reference, the dominant lesion conglomerate best seen on coronal images within segment 6 and 7 measures 6.7 cm (series 20 image 40). An additional lesion along the hepatic dome and segment 7 is not seemingly changed and measures 1 cm (series 29 image 16). Additional smaller lesions within the left hemiliver also similar in size compared to 05/08/2023. - Vasculature: Portal and splenic veins are patent. Gallbladder: Cholecystectomy Pancreas: Normal Spleen: Normal Adrenals: Normal Kidneys: Normal Other Findings: Cardiomegaly with left chest pacemaker. No abdominal lymphadenopathy. Extensive posterior spinal fusion with limits evaluation of osseous disease. Procedure Note Horace Cornell MD - 10/27/2024 EXAMINATION: MAGNETIC RESONANCE IMAGING OF THE ABDOMEN WITH AND WITHOUT CONTRAST HISTORY: Metastatic well-differentiated neuroendocrine tumor TECHNIQUE: Magnetic resonance imaging of the abdomen was performed prior to and following the uneventful administration of intravenous Gadolinium contrast. Protocol: Liver Contrast: Eovist 10 mL COMPARISON: CT 06/03/2024, MRI 05/08/2023 FINDINGS: Liver: No fat or iron deposition. No surface nodularity. - Bile ducts: Normal - Focal liver lesions: There are multiple arterial enhancing lesions with hepatobiliary washout and diffusion restriction representing metastatic disease. Overall, these are not significantly changed in size. For reference, the dominant lesion conglomerate best seen on coronal images within segment 6 and 7 measures 6.7 cm (series 20 image 40). An additional lesion along the hepatic dome and segment 7 is not seemingly changed and measures 1 cm (series 29 image 16). Additional smaller lesions within the left hemiliver also similar in size compared to 05/08/2023. - Vasculature: Portal and splenic veins are patent. Gallbladder: Cholecystectomy Pancreas: Normal Spleen: Normal Adrenals: Normal Kidneys: Normal Other Findings: Cardiomegaly with left chest pacemaker. No abdominal lymphadenopathy. Extensive posterior spinal fusion with limits evaluation of osseous disease. IMPRESSION: Unchanged hepatic metastatic disease. No evidence of disease progression. Dictated by: Dillon Yañez MD The radiology attending physician has personally reviewed this study, and had reviewed and/or edited this written report and agrees with it. Electronically signed by: Horace Cornell M.D. Candido Lobato MD IMG MRI PROCEDURES Final Result * XR Chest PA Lateral 2 Views (10/27/2024 9:14 AM ESTHETICIAN MAKEUP ARTIST) Anatomical Region Laterality Modality Body, Chest N/A Computed Radiogr aphy 10/27/2024 9:27 AM ESTHETICIAN MAKEUP ARTIST Impressions 10/27/2024 9:50 AM ESTHETICIAN MAKEUP ARTIST FINDINGS/IMPRESSION: Changes of cervical spinal fusion. Partially evaluated left humeral fixation. Extensive cement augmentation of the thoracic spine. Posterior spinal fusion partially evaluated. Left subclavian approach pacemaker defibrillator with lead overlying the right ventricle. No retained or abandoned leads. No discontinuity of the lead. Small lung volumes. Mild basilar atelectasis. No pleural effusion. No pneumothorax. Cardiomediastinal silhouette is stable from prior. Dictated by: Ivan Sommer MD The radiology attending physician has personally reviewed this study, and had reviewed and/or edited this written report and agrees with it. Electronically signed by: Wyatt Ochoa M.D. Narrative 10/27/2024 9:50 AM ESTHETICIAN MAKEUP ARTIST EXAMINATION: XR CHEST PA LATERAL 2 VIEWS HISTORY: magnetic resonance imaging MRI PM Clearance COMPARISON: Radiograph 08/23/2024 Procedure Note Wyatt Ochoa MD PhD - 10/27/2024 EXAMINATION: XR CHEST PA LATERAL 2 VIEWS HISTORY: magnetic resonance imaging MRI PM Clearance COMPARISON: Radiograph 08/23/2024 IMPRESSION: FINDINGS/IMPRESSION: Changes of cervical spinal fusion. Partially evaluated left humeral fixation. Extensive cement augmentation of the thoracic spine. Posterior spinal fusion partially evaluated. Left subclavian approach pacemaker defibrillator with lead overlying the right ventricle. No retained or abandoned leads. No discontinuity of the lead. Small lung volumes. Mild basilar atelectasis. No pleural effusion. No pneumothorax. Cardiomediastinal silhouette is stable from prior. Dictated by: Ivan Sommer MD The radiology attending physician has personally reviewed this study, and had reviewed and/or edited this written report and agrees with it. Electronically signed by: Wyatt Ochoa M.D. Dwight Crespo MD IMG XR PROCEDURES Final R esult * (ABNORMAL) Protime-INR (10/27/2024) INR 3.10(A) 0.90 - 1.10 EXTERNAL LAB Blood us Historical Provider LAB BLOOD ORDERABLES Jaz l Result EXTERNAL LAB * US Carotids Duplex Bilateral (10/25/2024 2:57 PM ESTHETICIAN MAKEUP ARTIST) Anatomical Region Laterality Modality Vascular Bilateral Ultrasound 10/25/2024 3:07 PM ESTHETICIAN MAKEUP ARTIST Impressions 10/25/2024 3:07 PM ESTHETICIAN MAKEUP ARTIST 1. Bilateral internal carotid artery stenosis estimated at less than 50%. 2. There is antegrade flow in both vertebral arteries. Electronically signed by: Paul Traylor II, D.O. Narrative 10/25/2024 3:07 PM ESTHETICIAN MAKEUP ARTIST EXAMINATION: BILATERAL CAROTID DUPLEX EXAM DATE: 10/25/2024 2:00 PM HISTORY: Encounter. TECHNIQUE: A bilateral carotid duplex imaging evaluation was performed using grayscale, color and spectral images. NASCET-based methodology was used. FINDINGS: On the right, the common carotid artery peak systolic velocity is 63 cm/s. The right internal carotid artery peak systolic velocities are 51 cm/s proximally, 55 cm/s within the midportion, and 53 cm/s distally. The right internal carotid artery to common carotid artery ratio is 0.9. The estimated percent stenosis of the right internal carotid artery is less than 50%. [] On the left, the common carotid artery peak systolic velocity is 65 cm/s. The left internal carotid artery peak systolic velocities are 58 cm/s proximally, 61 cm/s within the midportion, and 63 cm/s distally. The left internal carotid artery to common carotid artery ratio is 0.9. The estimated percent stenosis of the left internal carotid artery is less than 50%. [] Antegrade flow is seen within both vertebral arteries. Procedure Note Paul Traylor II, - 10/25/2024 EXAMINATION: BILATERAL CAROTID DUPLEX EXAM DATE: 10/25/2024 2:00 PM HISTORY: Encounter. TECHNIQUE: A bilateral carotid duplex imaging evaluation was performed using grayscale, color and spectral images. NASCET-based methodology was used. FINDINGS: On the right, the common carotid artery peak systolic velocity is 63 cm/s. The right internal carotid artery peak systolic velocities are 51 cm/s proximally, 55 cm/s within the midportion, and 53 cm/s distally. The right internal carotid artery to common carotid artery ratio is 0.9. The estimated percent stenosis of the right internal carotid artery is less than 50%. [] On the left, the common carotid artery peak systolic velocity is 65 cm/s. The left internal carotid artery peak systolic velocities are 58 cm/s proximally, 61 cm/s within the midportion, and 63 cm/s distally. The left internal carotid artery to common carotid artery ratio is 0.9. The estimated percent stenosis of the left internal carotid artery is less than 50%. [] Antegrade flow is seen within both vertebral arteries. IMPRESSION: 1. Bilateral internal carotid artery stenosis estimated at less than 50%. 2. There is antegrade flow in both vertebral arteries. Electronically signed by: Paul Tarylor II, D.O. Hesham Madsen MD [facility] US PROCEDURES Final Resu lt * SCAN - LABS (10/22/2024) Provider Scanning Final Result * DEVICE CHECK - REMOTE (10/19/2024 10:10 AM ESTHETICIAN MAKEUP ARTIST) Anatomical Region Laterality Modality Other Narrative 10/27/2024 1:18 PM ESTHETICIAN MAKEUP ARTIST Images from the original result were not included. 10/20/2024 [employer] quarterly remote device check NOTE The following shows snippets from the complete quarterly report. The complete report in its entirety is attached to this Result Text in [employer] Slow nsT Detection Oct 13, 2024, Slow nsT Detection Oct 13, 2024 @ 12:39AM Episode List- Full Episode IEGMs are in MED[employer] Single Chamber ICD implanted July 2023 Battery Status: MARQUEZ RVp: 0% Next Appointment: 04/14/2025 Pt seen recently in office. Device was not checked at that visit however; Currently being worked up for [facility]ost[facility] Reviewed By Marissa Heranndez DELINQUENT ACCOUNT CLERK ATTESTATION I have reviewed the device interrogation report associated with this encounter in detail. I agree with the documentation recorded/scanned into the electronic medical record. Recommendations: Continue current device follow-up. Rajan Begum MD Result [facility] Rajan Begum MD CV CARDIAC SERVICES MT OCEDURES Final Result * (ABNORMAL) Protime-INR (10/14/2024) INR 1.40(A) 0.90 - 1.10 EXTERNAL LAB Blood Result [facility] Historical Provider MD LAB BLOOD ORDERABLES Jaz l Result EXTERNAL LAB * (ABNORMAL) Protime-INR (10/07/2024) INR 1.70(A) 0.90 - 1.10 EXTERNAL LAB Blood Result [facility] Provider MD LAB BLOOD ORDERABLES Jaz l Result EXTERNAL LAB * (ABNORMAL) Protime-INR (10/01/2024) INR 1.90(A) 0.90 - 1.10 [facility] ([place]) Blood 10/01/2024 Result [facility] Historical Provider MD LAB BLOOD ORDERABLES Jaz l Result [facility] ([place]) 1 [facility] Department [place] [address] * (ABNORMAL) Protime-INR (10/01/2024) INR 1.90(A) 0.90 - 1.10 EXTERNAL LAB Blood Result [facility] Historical Provider MD LAB BLOOD ORDERABLES Jaz l Result EXTERNAL LAB * (ABNORMAL) Protime-INR (09/23/2024) INR 1.30(A) 0.90 - 1.10 EXTERNAL LAB Blood Result [facility] Historical Provider MD LAB BLOOD ORDERABLES Jaz l Result Performing Organization Address City/[facility]/ZIP Co de Phone Number EXTERNAL LAB * SCAN - LABS (09/13/2024) Result [facility] Provider Scanning Final Result * (ABNORMAL) POCT glucose (08/30/2024 12:36 PM ESTHETICIAN MAKEUP ARTIST) Pathologist [facility] Glucose, POC 290(H) 70 - 199 mg/dL Glucose comment 1 RN/MD Notified [facility] Glucose comment 2 Use This Result [facility] Blood 08/30/2024 12:3 6 PM ESTHETICIAN MAKEUP ARTIST 08/30/2024 12:36 PM ESTHETICIAN MAKEUP ARTIST Result [facility] Yves Braun MD LAB POCT ORDERABLES - DEV ICE Final Result Performing Organization Address City/[facility] Co de Phone Number [facility] [address] [facility] Department [place] [address] * (ABNORMAL) Urinalysis reflex to microscopic and culture Urine, clean voided (08/30/2024 9:28 AM ESTHETICIAN MAKEUP ARTIST) Color, ur Yellow Yellow Clarity, ur Clear Clear [facility] Specific gravity, ur 1.046(H) 1.003 - 1.030 [facility] pH, urine 6.5 [facility] Comment: Interpretive Data U rine pH is affected by diet, medications, systemic acid-base disturbances, and renal tubular function. pH may affect urinary stone formation. For example, urine pH below 6.0 may help reduce the tendency for calcium phosphate stones and pH greater than 6.0 may reduce the tendency for uric acid stone formation. Source: [facility] Current Interpretive Data was last revised on 2017 Protein, ur ql Negative Negative [facility] Glucose, ur ql 4+(A) Negative [facility] Ketones, ur 1+(A) Negative [facility] Bilirubin, ur Negative Negative [facility] Blood, ur Negative Negative [facility] Urobilinogen, ur <2.0 <2.0 mg/dL [facility] Nitrite, ur Negative Negative [facility] Leukocyte esterase, ur 2+(A) Negative [facility] UA reflex comment Reflex to microscopic UA will be performed. [facility] Urine, clean voided 08/30/2024 9:28 AM ESTHETICIAN MAKEUP ARTIST 08/30/2024 9:40 AM ESTHETICIAN MAKEUP ARTIST us Yves Braun MD LAB MICROBIOLOGY - GENERA L ORDERABLES Final Result Performing Organization Address [facility] Co de Phone Number [address] [place] [address] * (ABNORMAL) Urinalysis, microscopic only (08/30/2024 9:28 AM ESTHETICIAN MAKEUP ARTIST) WBC, ur 6-10(A) 0 - 5 /HPF RBC, ur 11-20(A) 0 - 2 /HPF [facility] Epithelial cells, squamous, ur 1-5 0 - 5 /HPF [facility] Mucous, ur Present(A) [facility] Culture Reflex Comment Reflex conditions for urine culture (WBC >10) not met. [facility] Urine, clean voided 08/30/2024 9:28 AM ESTHETICIAN MAKEUP ARTIST 08/30/2024 9:40 AM ESTHETICIAN MAKEUP ARTIST us Yves Braun MD LAB URINE ORDERABLES Jaz l Result Performing Organization Address [facility] Co de Phone Number [address] [employer] [place], [place] [id number] * POCT glucose (08/30/2024 7:49 AM ESTHETICIAN MAKEUP ARTIST) Glucose, POC 198 70 - 199 mg/dL Glucose comment 1 Use This Result [facility] Blood 08/30/2024 7:49 AM ESTHETICIAN MAKEUP ARTIST 08/30/2024 7:49 AM ESTHETICIAN MAKEUP ARTIST Yves Braun MD LAB POCT ORDERABLES - DEV ICE Final Result Performing Organization Address [facility] Co de Phone Number [address] [address] * Magnesium - Add on lab test (08/30/2024 2:25 AM ESTHETICIAN MAKEUP ARTIST) Acceptable Yes Blood 08/30/2024 2:25 AM ESTHETICIAN MAKEUP ARTIST 08/30/2024 8:40 AM ESTHETICIAN MAKEUP ARTIST Narrative [facility] - 08/30/2024 8:40 AM ESTHETICIAN MAKEUP ARTIST Name of Test->Magnesium Yves Braun MD LAB BLOOD ORDERABLES Jaz l Result Performing Organization Address [facility] Co de Phone Number [address] [address] * eGFR (08/30/2024 2:25 AM ESTHETICIAN MAKEUP ARTIST) eGFR >90 >=60 mL/min/1. 73 m2 Comment: Interpretive Data Reference Interval Normal >/= 90 mL/min/1.73m2 Mildly decreased* 60 - 89 mL/min/1.73m2 Mildly to moderately decreased 45 - 59 mL/min/1.73m2 Moderately to severely decreased 30 - 44 mL/min/1.73m2 Severely decreased 15 - 29 mL/min/1.73m2 Kidney Failure < 15 mL/min/1.73m2 *Relative to young adult level Estimated glomerular filtration rate is determined by the 2020 CKD-EPI equation recommended by the National Kidney Foundation (A Unifying Approach to GFR Estimation: Recommendations of the NKF-ASK Task Force on Reassessing the Inclusion of Race in Diagnosing Kidney Disease, JASN 2020). The CKD-EPI equation should not be used for patients with unstable renal function and has not been validated in children and those over 70. Current interpretive data was last reviewed 2021. Blood 08/30/2024 2:25 AM ESTHETICIAN MAKEUP ARTIST 08/30/2024 3:06 AM ESTHETICIAN MAKEUP ARTIST us Yves Braun MD LAB BLOOD ORDERABLES Jaz iris Result ALLY [address] [facility] Department [place] [address] * (ABNORMAL) Differential, auto (08/30/2024 2:25 AM ESTHETICIAN MAKEUP ARTIST) Neutrophil abs 6.9(H) 1.5 - 6.5 K/cumm Imm gran abs 0.1 0.0 - 0.1 K/cumm [facility] Lymphocyte abs 1.4 0.8 - 3.3 K/cumm [facility] Monocyte abs 0.7 0.2 - 0.8 K/cumm [facility] Eosinophil abs 0.0 0.0 - 0.5 K/cumm [facility] Basophil abs 0.0 0.0 - 0.1 K/cumm [facility] Neutrophil pct 75.7 % [facility] Comment: Interpretive Data Percent cell count reference ranges are not reported, since discordance with absolute values may lead to misinterpretation of CBC data. Current Interpretive Data was last revised on 2018. Imm gran pct 0.9 % [facility] Comment: Interpretive Data Percent cell count reference ranges are not reported, since discordance with absolute values may lead to misinterpretation of CBC data. Current Interpretive Data was last revised on 2018. Lymphocyte pct 15.1 % [facility] Comment: Interpretive Data Percent cell count reference ranges are not reported, since discordance with absolute values may lead to misinterpretation of CBC data. Current Interpretive Data was last revised on 2018. Monocyte pct 8.1 % [facility] Comment: Interpretive Data Percent cell count reference ranges are not reported, since discordance with absolute values may lead to misinterpretation of CBC data. Current Interpretive Data was last revised on 2018. Eosinophil pct 0.1 % [facility] Comment: Interpretive Data Percent cell count reference ranges are not reported, since discordance with absolute values may lead to misinterpretation of CBC data. Current Interpretive Data was last revised on 2018. Basophil pct 0.1 % [facility] Comment: Interpretive Data Percent cell count reference ranges are not reported, since discordance with absolute values may lead to misinterpretation of CBC data. Current Interpretive Data was last revised on 2018. Blood 08/30/2024 2:25 AM ESTHETICIAN MAKEUP ARTIST 08/30/2024 3:06 AM ESTHETICIAN MAKEUP ARTIST Yves Braun MD LAB BLOOD ORDERABLES Jaz l Result Performing Organization Address [facility] Co de Phone Number [address] [place] [address] * (ABNORMAL) CBC with auto differential (08/30/2024 2:25 AM ESTHETICIAN MAKEUP ARTIST) WBC 9.2 3.8 - 9.9 K/cumm Hgb 8.5(L) 11.9 - 15.5 g/dL [facility] Hct 32.6(L) 35.6 - 45.5 % [facility] Plt 545(H) 150 - 400 K/cumm [facility] MPV 9.9 9.1 - 12.3 fL [facility] RBC 4.32 3.90 - 5.20 M/cumm [facility] MCV 75.5(L) 81.3 - 96.4 fL [facility] MCH 19.7(L) 27.1 - 33.3 pg [facility] MCHC 26.1(L) 32.3 - 35.7 g/dL [facility] RDW CV 19.8(H) 11.1 - 14.9 % [facility] RDW SD 53.4(H) 35.7 - 48.1 fL [facility] NRBC abs 0.03(H) 0.00 - 0.01 K/cumm [facility] Blood 08/30/2024 2:25 AM ESTHETICIAN MAKEUP ARTIST 08/30/2024 3:06 AM ESTHETICIAN MAKEUP ARTIST Yves Braun MD LAB BLOOD ORDERABLES Jaz l Result Performing Organization Address City/[facility]/ZIP Co de Phone Number [address] [place] [address] * (ABNORMAL) Protime-INR (08/30/2024 2:25 AM ESTHETICIAN MAKEUP ARTIST) [facility] PT 28.4(H) 12.0 - 14.6 sec Comment:Ref Range High INR 2.8(H) 0.9 - 1.2 [facility] Comment: Ref Range High Interpretive data Oral anticoagulant therapeutic ranges: Venous thromboembolism prophylaxis or treatment: 2.0-3.0 CARDIOLOGY Standard range: 2.0-3.0 High-intensity range: 2.5-3.5 Refer to indication-specific guidelines for appropriate target ranges for prosthetic heart valve replacement. Current interpretive data was last revised on 2019. Blood 08/30/2024 2:25 AM ESTHETICIAN MAKEUP ARTIST 08/30/2024 3:06 AM ESTHETICIAN MAKEUP ARTIST Yves Braun MD LAB BLOOD ORDERABLES Jaz l Result Performing Organization Address [facility] Co de Phone Number [address] [address] * Magnesium (08/30/2024 2:25 AM ESTHETICIAN MAKEUP ARTIST) [facility] Magnesium 2.2 1.4 - 2.5 mg/dL Blood 08/30/2024 2:25 AM ESTHETICIAN MAKEUP ARTIST 08/30/2024 3:06 AM ESTHETICIAN MAKEUP ARTIST Yves Braun MD LAB BLOOD ORDERABLES Jaz l Result Performing Organization Address [facility] Co de Phone Number [address] [address] * (ABNORMAL) Basic metabolic panel (08/30/2024 2:25 AM ESTHETICIAN MAKEUP ARTIST) [facility] Sodium 145 135 - 145 mmol/L Potassium, pl 3.1(L) 3.3 - 4.9 mmol/L [facility] Chloride 101 97 - 110 mmol/L [facility] CO2 35(H) 22 - 32 mmol/L [facility] Anion gap 9 2 - 15 mmol/L [facility] BUN 16 6 - 25 mg/dL [facility] Creatinine 0.43(L) 0.60 - 1.10 mg/dL [facility] Glucose 179 70 - 199 mg/dL [facility] Comment: Interpretive Data Fasting glucose >/= 126 mg/dl is diagnostic for diabetes. Fasting is defined as no caloric intake for at least 8 hours. Fasting glucose between 100 mg/dl to 125 mg/dl is diagnostic of prediabetes. In a patient with classic symptoms of hyperglycemia or hyperglycemic crisis, a random glucose >/= 200 mg/dl is diagnostic for diabetes. In the absence of unequivocal hyperglycemia, results should be confirmed by repeat testing. The classification and Diagnosis of Diabetes Diabetes Care 202; 46: S19-S40. Current interpretive data was last revised 2022. Calcium 9.4 8.5 - 10.3 mg/dL [facility] Blood 08/30/2024 2:25 AM ESTHETICIAN MAKEUP ARTIST 08/30/2024 3:06 AM ESTHETICIAN MAKEUP ARTIST Yves Braun MD LAB BLOOD ORDERABLES Jaz l Result [facility] [address] [facility] Department [place] [address] * Hepatitis panel, acute Blood (06/07/2024 4:33 AM CDT) Hep A IgM Nonreactive Nonreactive Comment: Interpretive Data: If Hep A IgM Ab is reported as Equivocal, a new sample should be drawn in two weeks for testing. Current interpretive data was last revised on 19. Hep B core IgM Nonreactive Nonreactive [facility] Comment: Interpretive Data If HepB Core IgM Ab is reported as Equivocal, a new sample should be drawn in two weeks for testing. Current interpretive data was last revised on 19. Hep C Ab Nonreactive Nonreactive [facility] Comment: Interpretive Data Nonreactive: Antibodies to HCV not detected. Does NOT exclude the possibility of recent exposure to HCV. Equivocal: Equivocal for HCV antibodies. Supplemental molecular testing will be automatically performed to determine infection status in accordance with current CDC screening recommendations. Reactive: Positive for HCV antibodies. This may represent current or past HCV infection. Supplemental molecular testing will be automatically performed to determine current infection status in accordance with current CDC screening recommendations. Interpretive data was last revised on 2019. HepBsAg Nonreactive Nonreactive [facility] Blood 06/07/2024 4:33 AM CDT 06/07/2024 5:20 AM CDT Zaria Alvares MD LAB MICROBIOLOGY - GENERAL ORDERABLES Final Result [facility] [address] Department [place] [address] * Diabetic Eye Exam (01/26/2024 2:27 PM CDT) Historical Provider HEALTH MAINTENANCE Final Result * Screening Mammogram Bilateral W Mason (04/01/2023 8:51 AM CDT) Anatomical Region Laterality Modality Breast Bilateral Mammography 04/01/2023 9:08 AM CDT Impressions 04/01/2023 9:08 AM CDT There is no mammographic evidence of malignancy. A 1 year screening mammogram is recommended. BI-RADS: 2 - Benign. The patient has been or will be contacted. The patient will be entered into a reminder system with a target due date of 1 year for her next mammogram. Electronically signed by: Stevie Pritchett M.D. Narrative 04/01/2023 9:08 AM CDT EXAMINATION: SCREENING MAMMOGRAM BILATERAL W MASON ORDERING HEALTHCARE PROVIDER: SELF SCREENING MAMMOGRAM HISTORY: Routine screening mammography. COMPARISON: 02/14/2022, 02/12/2021, 12/02/2019, 04/30/2019, 11/29/2008 TECHNIQUE: CC and MLO views of the bilateral breasts were obtained with digital technique using breast tomosynthesis with C view. Computer aided detection was utilized. FINDINGS: DENSITY: The tissue of the bilateral breasts is heterogeneously dense, which may obscure small masses. BREASTS: There are benign bilateral breast scattered calcifications. There are no suspicious masses, suspicious calcifications, or other suspicious findings in either breast. There has been no suspicious interval change. us Self Screening Mammogram IMG MAMMO PROCEDURES Fi nal Result * (ABNORMAL) Albumin Creatinine Ratio, Urine (10/11/2022 10:25 AM ESTHETICIAN MAKEUP ARTIST) Albumin Ur 67.6 mg/L [facility] ([facility]) Comment: Interpretive Data No reference range established. Current interpretive data was last revised 2019. Testing performed by: [facility], [address] [place] [address]., [id number] Creatinine Ur 101.1 mg/dL [facility] ([place]) Comment: Interpretive Data No reference range established. Current interpretive data was last revised 2019. Testing performed by: [facility], [address] [place] [address]., [id number] Albumin Creatinine Ratio, Ur 67(H) 1 - 29 mg/g [facility] ([place]) Comment:Testing performed by : [facility], [address] [place] [address]., [address] Urine 10/11/2022 10:2 5 AM ESTHETICIAN MAKEUP ARTIST 10/11/2022 1:42 PM ESTHETICIAN MAKEUP ARTIST us Juni Hays MD LAB URINE ORDERABLES Final R esult [facility] ([place]) [address] [facility] Department [place] [address] * COLONOSCOPY (02/05/2022 1:10 PM CDT) Anatomical Region Laterality Modality Other Narrative Procedure Note Dontae Stevens MD - 02/05/2022 1:10 PM CDT [facility] Patient Name: Agustin Ruizhrgarfield Procedure Date: 02/05/2022 1:10 PM Date of : 1965 Admit Type: Outpatient Age: 56 Gender: Female Attending MD: Dontae Stevens M.D. Room: [facility] ENDOSCOPY ROOM 1 Note Status: Finalized Patient Profile: This is a 56 year old female. Procedure: Colonoscopy Indications: Screening for colorectal malignant neoplasm, Last colonoscopy: June 2012 Referring MD: Juni Hays M.D. Providers: Dontae Stevens M.D. Impression: - The entire examined colon is normal overall.Random biopsy performed. - One 6 mm polyp in the sigmoid colon, removed witha cold biopsy forceps. Resected and retrieved. - Internal hemorrhoids. Recommendation: - Await pathology results. - Repeat colonoscopy in 5 years for screeningpurposes. - Continue present medications. Medicines: Monitored Anesthesia Care Complications: No immediate complications. Estimated Blood Loss: Estimated blood loss: none. Procedure: Pre-Anesthesia Assessment: - Prior to the procedure, a History and Physicalwas performed, and patient medications and allergieswere reviewed. The patient's tolerance of previous anesthesia was also reviewed. The risks andbenefits of the procedure and the sedation options and risks were discussed with the patient. All questions were answered, and informed consent was obtained. Prior Anticoagulants: The patient has taken noanticoagulant or antiplatelet agents. ASA Grade Assessment: III -A patient with severe systemic disease. Afterreviewing the risks and benefits, the patient was deemed in satisfactory condition to undergo the procedure. - Prior to the procedure, a History and Physicalwas performed, and patient medications and allergieswere reviewed. The patient's tolerance of previous anesthesia was also reviewed. The risks andbenefits of the procedure and the sedation options and risks were discussed with the patient. All questions were answered, and informed consent was obtained. Prior Anticoagulants: The patient has taken noanticoagulant or antiplatelet agents. ASA Grade Assessment: III -A patient with severe systemic disease. Afterreviewing the risks and benefits, the patient was deemed in satisfactory condition to undergo the procedure. The benefits, risks and alternatives of theprocedure and sedation were discussed and informed consentwas obtained. All questions were answered. Please referto the signed informed consent document in the medical record. The bowel preparation used was Miralax via split dose instruction. The bowel preparation usedwas bisacodyl tablets via split dose instruction. The scope was passed under direct vision. The Pediatric Colonoscope PCF-H190L [id number] was introducedthrough the anus and advanced to the the cecum, identifiedby appendiceal orifice and ileocecal valve. Thequality of the bowel preparation was good. Bowel prep was administered using a split dose. Findings: The perianal and digital rectal examinations were normal. The cecum appeared normal. The colon (entire examined portion) appeared normal overall. No inflammatory changes noted. Biopsies for histology were taken with a cold forceps from the entire colon for evaluation of microscopiccolitis. A 6 mm polyp was found in the sigmoid colon. The polyp was sessile.The polyp was removed with a cold biopsy forceps. Resection and retrieval were complete. One clip was applied. Internal hemorrhoids were found during retroflexion. The hemorrhoids were small. Electronically signed by Dontae Stevens M.D. Dontae Stevens M.D. 02/05/2022 2:35:47 PM Number of Addenda: 0 Note Initiated On: 02/05/2022 1:10 PM Procedure Code(s): --- Professional --- 04643, Colonoscopy, flexible; with biopsy, single or multiple Diagnosis Code(s): --- Professional --- Z12.11, Encounter for screening for malignant neoplasm of colon K64.8, Other hemorrhoids D12.5, Benign neoplasm of sigmoid colon CPT copyright 202 [employer]. All rights reserved. The codes documented in this report are preliminary and upon plc controls engineer reviewmay be revised to meet current compliance requirements. Recognized by the [employer] for promoting quality in endoscopy Dontae Stevens MD ENDOSCOPY PROCEDURES Final Result from Last 3 Months or Most Recently Relevant to Health Maintenance Additional Health Concerns Infection Onset Date Last Indicated CRE Comment:Contact Precautions (gown and gloves) RAMYA Au 09/25/22 08/16/2022 08/16/2022 MDR gram neg/ESBL Comment:Contact Precautions (gown and gloves) RAMYA Au 09/25/22 08/16/2022 08/16/2022 Insurance [facility] CHO[facility] HMO/PPO Address: [address] [address] [place] [address] MEDICARE [address] [address] [facility] H[facility]/PPO Address: [facility] [address] [place] [address] [place] [address] [facility] CHO[facility] HMO/PPO Address: [address] [address] [place] [address] MEDICARE Advance Directives For more information, please contact: [phone] Documents on File Type Date Recorded Patient Dye Weigher Expl anation ADVANCE DIRECTIVE 08/26/2024 1:59 PM POLS T - Phys Order for PT Preferences ADVANCE DIRECTIVE 08/23/2022 4:18 PM ELLIS R OF PEST LOCATOR-MEDICAL * LIMITED - No CPR (Latest Code Status on File) Date Activated Date Inactivated Comments 11/18/2024 8:35 PM Question Answer Comments Provide aggressive medical m anagement before a full cardiopulmonary arrest occurs. Use antibiotics, IV Fluids, and medical treatment unless specifically selected below: No intubation * Full Code Date Activated Date Inactivated Comments 11/18/2024 5:03 PM 11/18/2024 8:35 PM * LIMITED - No CPR Date Activated Date Inactivated Comments 11/08/2024 4:29 AM 11/17/2024 8:20 PM Question Answer Comments Provide aggressive medical m anagement before a full cardiopulmonary arrest occurs. Use antibiotics, IV Fluids, and medical treatment unless specifically selected below: No intubation * Full Code Date Activated Date Inactivated Comments 11/08/2024 2:05 AM 11/08/2024 4:29 AM * LIMITED - No CPR Date Activated Date Inactivated Comments 08/26/2024 3:11 PM 08/30/2024 5:11 PM Question Answer Comments Provide aggressive medical m anagement before a full cardiopulmonary arrest occurs. Use antibiotics, IV Fluids, and medical treatment unless specifically selected below: No intubationNo cardioversionNo internal / external pacemaker Care Teams Control Room Helper Relationship Specialty Start Date End Date Juni Hays MD [address] [facility] [address] [place] [address] PCP - General Internal Medicine 08/18/24 Kingston Jain DO [address] [place] [address] Consulting Physician Cardiovascular Disease 06/20/20 Candido Lobato MD [address] [facility], [facility] [address] [place] [address] Medical Oncology 05/02/23 [place] [address] [facility] [address] [place] [address] Physician Director Cardiac Orthopedic Surgery 06/16/24
--- OUTSIDE RECORDS SUMMARY | 2024-11-30 18:13 | XMS_ITS | Encounter Summary ---
Author Organization [facility] Address [address] [place] [address] Phone Care Team Providers Care Stage Set Up Worker Name Role Phone Juni Hays MD Primary Care Provider [phone] Shivam Benedict MD Unavailable Radha Crews APRN, [facility] Unavailable + [phone] Sacha Penn MD Unavailable [phone] Reason for Visit * Reason Onset Date Comments Medication Refill 11/05/2022 Encounter Details Date Type Department Care Team (Late st Contact Info) Description 11/05/2022 Refill [facility] [address] [place] [address] Varghese Gleason, PAC [address] [place], [place] [address] Medication Refill Social History Tobacco Use Types [...] Cervicalgia documented in this encounter Care Teams Stage Set Up Worker Relationship Specialty Start Date End Date Juni Hays MD PCP - General Internal Medicine 10/17/20 Shivam Benedict MD [address] [place] [address] Consulting Physician Pulmonary Disease 12/27/21 Radha Crews, FISCAL ECONOMIST, FINANCIAL CONSULTANT [address] [place] [address] Nurse Practitioner Advanced Practice Nurse 01/04/22 Sacha Penn MD [address] [place] [address] Consulting Physician Neurology 07/25/23 documented as of this encounter
--- OUTSIDE RECORDS SUMMARY | 2024-11-30 18:13 | XMS_ITS | Encounter Summary ---
Author Organization [facility] Address [address] [place] [address] Phone Care Team Providers Care Flue Tile Press Operator Name Role Phone Juni Hays MD Primary Care Provider [phone] Shivam Benedict MD Unavailable Radha Crews APRN, [facility] Unavailable +- [phone] Sacha Penn MD Unavailable [phone] Encounter Details Date Type Department Care Team (Late st Contact Info) Description 11/15/2022 Nursing Facility [facility] [address] [place] [address] Varghese Gleason, [facility] [address] [place], [place] [id number] Social History Tobacco Use Types Packs/Day Years [...] Progress Notes * Varghese Gleason, PAC - 11/15/2022 12:39 PM CST [facility] PROGRESS NOTE Blossom De León is a 56 y.o. female at [facility] for rehabilitation. Patient was hospitalized at [facility] from 08/16/2022 through 09/02/2022 for unstable burst fracture of the 4th lumbar vertebrae along with lumbar stenosis and neurogenic claudication which was treated with extensive lumbar surgery. Apparently after leaving the hospital she developed COVID-19 which made her weakness worse, did spend some time at [facility] prior to transferring to this facility on 11/05/2022. Subjective: Interval History: Patient is lying comfortably in bed. Says she feels ???good?? . Feels like therapy is going well and feels like she is getting stronger. Nursing staff has no concerns about the [...] PROXIMAL HUMERUS; Surgeon: [place] Tolbert MD; Location: [facility]; Service: Orthopaedic ??? LUMBAR FUSION HAS CAGE IN PLACE ??? THYROID SURGERY 10/1986 [place] [facility] Review of Systems: A 14 point comprehensive review of systems was negative except what is documented in interval history above. Objective: Exam: Vital Signs: B/P: 126/74 Pulse: 78 Respirations: 18 Temperature: 97.6 General: Well developed, well nourished, [...] repair Followed by neurosurgery Dr. Richardson at [facility] pain medicines Pain well controlled Wearing brace at all times Receiving [facility] rehabilitation hypokalemia 11/12: Labs ordered to be drawn tomorrow 11/15: Potassium of 3.2. Likely secondary to furosemide use. Started on potassium supplementation. Recheck in 1-2 weeks. Diabetes mellitus type 2 Current regimen includes Farxiga, Trulicity, Lantus and sliding scale Humalog and metformin Monitor Accu-Cheks and adjust regimen as necessary 11/15/2022: Uncontrolled as of late. Will increase Lantus dose. Chronic systolic congestive heart failure EF of 35% Continue Coreg, furosemide, Entresto and spironolactone 11/12: Stable has appointment with Cardiology this afternoon Dr. Huffman Hypertension Continue antihypertensive regimen Monitor blood pressures Stable Neuropathy 11/12: Should be noted patient is on gabapentin as well as Lyrica. Will need to discuss this with the patient. Other chronic medical conditions include restless leg syndrome, GERD, migraines, hyperlipidemia, osteoporosis, depression, B12 deficiency, hypothyroidism Stable Continue home regimen VTE Prophylaxis: Activity I discussed advanced care planning with this patient. This note was dictated using [employer] fluency dictation system and there may be errors in climatology professor. Despite proof reading the note, there may be mistakes and I apologize for those. By: RUDY Miller, 11/15/2022 12:39 PM SALON COORDINATOR N COORDINATOR documented in this encounter Plan of Treatment Not on file documented as of this encounter Visit Diagnoses Not on filedocumented in this encounter Care Teams Flue Tile Press Operator Relationship Specialty Start Date End Date Juni Hays MD PCP - General Internal Medicine 10/17/20 Shivam Benedict MD [address] [place] [address] Consulting Physician Pulmonary Disease 12/27/21 Radha Crews APRN, MD PHYSICIAN DERMATOLOGIST [address] [place] [address] Nurse Practitioner Advanced Practice Nurse 01/04/22 Sacha Penn MD [address] [place] [address] Consulting Physician Neurology 07/25/23 documented as of this encounter
--- OUTSIDE RECORDS SUMMARY | 2024-11-30 18:13 | XMS_ITS | Encounter Summary ---
Author Organization [facility] Address [address] [place] [address] Phone Care Team Providers Care Massage Therapy Instructor Name Role Phone Juni Hasy MD Primary Care Provider [phone] Shivam Benedict MD Unavailable Radha Crews APRN, CATERING ADMINISTRATIVE ASSISTANT Unavailable + [phone] Sacha Penn MD Unavailable [phone] Reason for Visit * Reason Comments Medication Refill Encounter Details Date Type Department Care Team (Late st Contact Info) Description 07/17/2021 Refill [facility] - [facility] [address] [place] [id number] Radha Crews APRN, CATERING ADMINISTRATIVE ASSISTANT [address] [place] [address] Medication Refill Social History Tobacco Use Types [...] as of this encounter Visit Diagnoses Diagnosis Chronic migraine without aura without status migrainosus, not intractable Chronic migraine without aura, without mention of intractable migraine without mention of status migrainosus documented in this encounter Care Teams Massage Therapy Instructor Relationship Specialty Start Date End Date Juni Hays MD PCP - General Internal Medicine 10/17/20 Shivam Benedict MD [address] [place] [address] Consulting Physician Pulmonary Disease 12/27/21 Radha Crews APRN, CATERING ADMINISTRATIVE ASSISTANT [address] [place] [address] Nurse Practitioner Advanced Practice Nurse 01/04/22 Sacha Penn MD [address] [place] [address] Consulting Physician Neurology 07/25/23 documented as of this encounter
--- OUTSIDE RECORDS SUMMARY | 2024-11-30 18:13 | XMS_ITS | Encounter Summary ---
Author Organization [facility] Address [address] [place] [address] Phone Care Team Providers Care Restrictive Preparation Operator Name Role Phone Juni Hays MD Primary Care Provider [phone] Shivam Benedict MD Unavailable Radha Crews APRN, [facility] Unavailable [phone]- [phone] Sacha Penn MD Unavailable [phone] Encounter Details Date Type Department Care Team (Late st Contact Info) Description 11/12/2022 Nursing Facility [facility] [address] [place] [address] Varghese Gleason, [facility] [address] [place], [place] [id number] Social History Tobacco Use Types Packs/Day Years [...] Progress Notes * Varghese Gleason, PAC - 11/12/2022 1:42 PM CST [facility] PROGRESS NOTE Blossom De León is a 56 y.o. female at [facility] for rehabilitation. Patient was hospitalized at [facility] from 08/16/2022 through 09/02/2022 for unstable burst fracture of the 4th lumbar vertebrae along with lumbar stenosis and neurogenic claudication which was treated with extensive lumbar surgery. Apparently after leaving the hospital she developed COVID-19 which made her weakness worse, did spend some time at [facility] prior to transferring to this facility on 11/05/2022. Subjective: Interval History: Patient is sitting up comfortably in bed. Says she feels ???pretty good?? . Pain is well controlled. Feels like therapy is going well. She is wearing the brace at all times. No acute symptoms or concerns. She has an appointment with her desktop operator this afternoon to review Holter monitor results as there is concerned patient may have paroxysmal atrial fibrillation. Nursing staff has no concerns about the [...] PROXIMAL HUMERUS; Surgeon: Prosper Tolbert MD; Location: [facility]; Service: Orthopaedic ??? LUMBAR FUSION HAS CAGE IN PLACE ??? THYROID SURGERY 10/1986 [place] Review of Systems: A 14 point comprehensive review of systems was negative except what is documented in interval history above. Objective: Exam: Vital Signs: B/P: 126/74 Pulse: 74 Respirations: 20 Temperature: 97.6 General: Well developed, well nourished, [...] affect, Intact judgement and memory Lab Results: None Imaging: None Assessment/Plan: Lumbar fracture with lumbar stenosis and neurogenic claudication Status post surgical repair Followed by neurosurgery Dr. Richardson at [facility] pain medicines Pain well controlled Wearing brace at all times Receiving long-term and physical therapy rehabilitation Diabetes mellitus type 2 Current regimen includes Farxiga, Trulicity, Lantus and sliding scale Humalog and metformin Monitor Accu-Cheks and adjust regimen as necessary Chronic systolic congestive heart failure EF of 35% Continue Coreg, furosemide, Entresto and spironolactone 11/12: Stable has appointment with Cardiology this afternoon Dr. Huffman Hypertension Continue antihypertensive regimen Monitor blood pressures Stable History of hypokalemia 11/12: Labs ordered to be drawn tomorrow Neuropathy 11/12: Should be noted patient is on gabapentin as well as Lyrica. Will need to discuss this with the patient. Other chronic medical conditions include restless leg syndrome, GERD, migraines, hyperlipidemia, osteoporosis, depression, B12 deficiency, hypothyroidism Stable Continue home regimen VTE Prophylaxis: Activity I discussed advanced care planning with this patient. This note was dictated using [employer] fluency dictation system and there may be errors in mother's helper. Despite proof reading the note, there may be mistakes and I apologize for those. By: Varghese Gleason, PAC, 11/12/2022 1:43 PM FLOOR SERVICE WORKER SPRING R SERVICE WORKER SPRING documented in this encounter Plan of Treatment Not on file documented as of this encounter Visit Diagnoses Not on filedocumented in this encounter Care Teams Restrictive Preparation Operator Relationship Specialty Start Date End Date Juni Hays MD PCP - General Internal Medicine 10/17/20 Shivam Benedict MD [address] [place] [address] Consulting Physician Pulmonary Disease 12/27/21 Radha Crews APRN, SPRAYER MACHINE [address] [place] [address] Nurse Practitioner Advanced Practice Nurse 01/04/22 Sacha Penn MD [address] [place] [address] Consulting Physician Neurology 07/25/23 documented as of this encounter
--- OUTSIDE RECORDS SUMMARY | 2024-11-30 18:13 | XMS_ITS | Encounter Summary ---
Author Organization [facility] Address [address] [place] [address] Care Team Providers Care Programming Specialist Name Role Phone Kingston Jain DO Unavailable [phone] Candido Lobato MD Unavailable [phone] Kelli Bassett Unavailable [phone] Juni Hays MD Primary Care Provider [phone] Reason for Visit * Reason Onset Date Comments Medical Question/Miscellaneous 10/29/2024 Encounter Details Date Type Department Care Team (Late st Contact Info) Description 10/29/2024 Telephone [facility] Primary Care at [facility] [address] [facility] [address] [place] [phone] Juni Hays MD [address] [address] Medical Question/Miscellaneous Social History Tobacco Use Types Packs/Day Years Used Date Smoking Tobacco: Former Cigarettes 1 5 3 - 1987 Smokeless Tobacco: Never Alcohol Use Standard Drinks/Week Comments No 0 (1 standard drink = 0.6 oz pur e alcohol) [facility] Utilities Answer Date Recorded In the past 12 months has [employer], gas, oil, or water company threatened to [...] week 11/22/2024 How often do you attend chur ch or confucianism services? More than 4 times per year 11/22/2024 Do you belong to any clubs o r organizations such as sikh groups, unions, fraternal or athletic groups, or [...] place to sleep or slept in a halfway (including now)? No 01/06/2024 Housing Stability Vital Sign Answer [place] e Recorded In the last 12 months, was t here a time when you were not able to pay the mortgage or rent on time? No 11/22/2024 In the past 12 months, how m any times have you moved where you were living? 0 11/22/2024 At any time in the past 12 m [facility], were you homeless or living in a halfway (including now)? No 11/22/2024 Personal Safety Answer [...] on file Legal Sex Female 2:31 PM WOODEN BOX MAKER Gender Identity Not on file Sexual Orientation Not on file Occupation Industry Job Start Date Job End Date On Disability Not on file Not on file Not on file documented as of this encounter Miscellaneous Notes * Telephone Encounter - Maura Grissom - 10/29/2024 11:24 AM CST Lab orders for CBC with auto differential and Iron Profile w IBC have been sent to [facility] through [employer]. EN BOX MAKER * Telephone Encounter - Segun Mas - 10/29/2024 8:55 AM CST Medical Question/Miscellaneous Caller???s Concern: Patient's daughter Ana (ON HIPAA) calls about blood test orders: CBC with auto differential Iron Profile w IBC ordered for [facility] (ant); Patient lives with daughter(caller) and daughter says has been to [facility] twice and mom is fatigued from travel. Asks if the blood test order can be sent instead to [facility] ([facility]). Caller says only the CBC was mentioned by Dr. Hays's office; Caller requests a telephone callback to notify if/when the orders are resent to the [facility]; ideally theywould like to get the orders completed today. Does message need to be routed? Yes-Action Needed EN BOX MAKER documented in this encounter Plan of Treatment [...] take, when to call CM or provider. [facility] Chronic Pain Care Plan Chronic Care Management [...] on stairs Contact your local community or [facility] for information on exercise, fall prevention programs, or options for improving home safety. documented as of this encounter Visit Diagnoses Not on filedocumented in this encounter Additional Health Concerns Infection Onset Date Last Indicated Resolved Time CRE Comment:Contact Precautions (gown and gloves) RAMYA Au 09/25/22 08/16/2022 08/16/2022 MDR gram neg/ESBL Comment:Contact Precautions (gown and gloves) RAMYA Au 09/25/22 08/16/2022 08/16/2022 documented as of this encounter Care Teams Programming Specialist Relationship Specialty Start Date End Date Juni Hays MD [address] [facility] [address] [place] [address] PCP - General Internal Medicine 08/18/24 Kingston Jain DO 2 [facility] [address] [address] Consulting Physician Cardiovascular Disease 06/20/20 Candido Lobato MD [address] [facility] MEDICAL ONCOLOGY, [facility] [address] [place] [address] Medical Oncology 05/02/23 [place] [address] [place] [address] Physician Receiving Lead Orthopedic Surgery 06/16/24 documented as of this encounter
--- OUTSIDE RECORDS SUMMARY | 2024-11-30 18:14 | XMS_ITS | Referral Summary ---
Author Organization [facility] [address] Address [address] [place] [address] Care Team Providers Care Qa Automation Engineer Name Role Phone Kingston Jain DO Unavailable [phone] Candido Lobato MD Unavailable [phone] Kelli Bassett Unavailable [phone] Juni Hays MD Primary Care Provider [phone] Encounters Date Type Department Care Team Description 11/18/2024 5:40 AM ENGINE DESIGNER - 11/30/2024 5:05 PM ENGINE DESIGNER Hospital Encounter [facility] 1 [place] [phone] Hesham Madsen MD Acute on chronic systolic congestive heart failure (CMS/HCC) (HCC) (Primary Dx); Atrial thrombus; Uncontrolled type 2 diabetes mellitus with hyperglycemia (HCC) Discharge Disposition: Discharge to SNF 11/25/2024 Telephone [facility] Medical Group Primary Care at [place] [address] [facility] [address], [place] [address] Juni Hays MD 11/24/2024 Anticoagulation Telephone Call [facility] Medical [facility] Primary Care at [place] [address] [facility] [address], [place] [address] Sugar Carlisle NP 11/18/2024 7:38 AM ENGINE DESIGNER Anesthesia Event [facility] Operating Room 1 [place] [address] Elba Medina MD PhD 11/18/2024 7:30 AM ENGINE DESIGNER - 11/18/2024 10:10 AM ENGINE DESIGNER Surgery [facility] Operating Room 1 [place] [address] Hesham Madsen MD RIGHT BAROSTIM PLACEMENT 11/17/2024 Telephone [facility] Endocrinology Metabolism and Lipid [address] [facility] Advanced Medicine 5th [place] [address] [place] [phone] Tabatha Berger RN 11/08/2024 1:44 AM ENGINE DESIGNER - 11/17/2024 4:19 PM ENGINE DESIGNER Hospital Encounter [facility]U 1 [place] [address] Sanjeev Gonzales MD Singh, Supriya, MD Sargsyan, Narine, MD Chest pain, unspecified type (Primary Dx); NSTEMI (non-ST elevated myocardial infarction) (CMS/HCC) (HCC) Discharge Disposition: Discharge to SNF 11/16/2024 Telephone [facility] Surgery [address] [place] [address] Medical Office Building 1 [address], [place] [address] Mell Jalloh RMA Surgery Confirmation 11/16/2024 Anticoagulation Telephone Call [facility] Medical Group Primary Care at [facility] [address] [facility] [address], [place] [address] Sugar Carlisle NP 11/12/2024 Orders Only [facility] Oncology [address] [facility] Floor 5 [place] [phone] Candido Lobato MD Neuroendocrine cancer (HCC) (Primary Dx); Secondary neuroendocrine tumors (HCC) 11/11/2024 Telephone [facility] Surgery [address] [place] [address] Medical Office Building 1 [address], [place] [address] Mell Jalloh, PRAVIN Surgery Confirmation 11/07/2024 Orders Only [facility] Health Information Management [address] [place] [address] Scanning, Provider 11/05/2024 Anticoagulation Telephone Call [facility] Medical Group Primary Care at [address] [phone] Sugar Carlisle NP 11/05/2024 10:40 AM ENGINE DESIGNER Office Visit [facility] Endocrinology Metabolism and Lipid [address] [place] [address] [place] [phone] Coy Patel MD Uncontrolled type 2 diabetes mellitus with hyperglycemia (HCC) (Primary Dx); Osteoporosis with current pathological fracture, unspecified osteoporosis type, sequela; Postmenopausal osteoporosis; At high risk for fracture; Hypothyroidism, unspecified type; Insulin long-term use (CMS/HCC) (HCC) [Z79.4] 11/04/2024 Orders Only [facility] Health Information Management [address] [place] [address] Scanning, Provider 11/04/2024 Telephone [facility] Medical [facility] Primary Care at [address] [phone] Juni Hays MD Test Results 11/01/2024 Telephone [facility] at [address] [phone] Lizett Hays MA 10/29/2024 Documentation [facility] Medical Group Primary Care at [address] [place] [phone] Maura Grissom 10/29/2024 Telephone [facility] Medical Group Primary Care at [address] [place] [phone] Juni Hays MD Medical Question/Miscellaneo us 10/28/2024 Anticoagulation Telephone Call [facility] Medical Group Primary Care at [address] [place] [phone] Sugar Carlisle NP 10/27/2024 Documentation Cardiology Sue Quinn NP 10/27/2024 8:10 AM ENGINE DESIGNER - 10/27/2024 11:59 PM ENGINE DESIGNER Hospital Encounter [facility] Radiology 1 [place] [address] Encounter for imaging to screen for metal prior to magnetic resonance imaging (MRI) Discharge Disposition: Discharge to home or self care 10/27/2024 8:10 AM ENGINE DESIGNER - 10/27/2024 11:59 PM ENGINE DESIGNER Hospital Encounter [facility] Radiology 1 [place] [address] Candido Lobato MD Neuroendocrine cancer (HCC); Secondary neuroendocrine tumors (HCC) Discharge Disposition: Discharge to home or self care 10/25/2024 Anticoagulation Telephone Call [facility] Medical Group Primary Care at [address] [place] [phone] Sugar Carlisle NP 10/25/2024 Telephone [facility] Medical [facility] Primary Care at [address] [place] [phone] Sugar Carlisle, ABDON 10/25/2024 2:00 PM ENGINE DESIGNER - 10/25/2024 11:59 PM ENGINE DESIGNER Hospital Encounter [facility] Vascular Lab [address] [place] [address] Encounter for other preprocedural examination Discharge Disposition: Discharge to home or self care 10/25/2024 3:00 PM ENGINE DESIGNER Office Visit [facility] Surgery [address] [facility] Medical Office Building 1 [address], [place] [phone] Hesham Madsen MD Nonocclusive coronary atherosclerosis of [place] coronary artery; Dilated cardiomyopathy (CMS/HCC) (HCC); Paroxysmal atrial fibrillation (CMS/HCC) (HCC); Elevated brain natriuretic peptide (BNP) level 10/22/2024 Orders Only [facility] Health Information Management [address] [place] [address] Scanning, Provider 10/21/2024 Orders Only [facility] Medical Group Primary Care at [address] [place] [phone] Juni Hays MD Anemia, unspecified type (Primary Dx) 10/20/2024 3:00 PM ENGINE DESIGNER Ancillary Procedure [facility] [address] [facility] [address] [place] [address] ICD (implantable cardioverter-defibri llator) in place; Dilated cardiomyopathy (CMS/HCC) ([facility]); Paroxysmal A-fib (CMS/HCC) ([facility]) 10/19/2024 Telephone [facility] at [address] [place] [phone] LisRussell, MA 10/19/2024 Telephone [facility] Medical Group Primary Care at [address] [place] [phone] Juni Hays MD Medical Question/Miscellaneo us 10/15/2024 Telephone [facility] Medical Group Primary Care at [address] [place] [phone] Juni Hays MD Medical Question/Miscellaneo us 10/15/2024 Anticoagulation Telephone Call [facility] Medical Group Primary Care at [address] [place] [phone] Sugar Carlisle NP 10/08/2024 Orders Only [facility] Surgery [address] [facility] Medical Office Building 1 [address] [place] [phone] Hesham Madsen MD Encounter for other preprocedural examination (Primary Dx) 10/08/2024 Telephone [facility] Medical Group Primary Care at [address] [place] [phone] Juni Hays MD Test Results 10/08/2024 Anticoagulation Telephone Call [facility] Medical Group Primary Care at [address], [place] [phone] Sugar Carlisle, ABDON 10/07/2024 Telephone [facility] Medical Group Primary Care at [address] [place] [phone] Juni Hays MD 10/04/2024 Telephone [facility] at [address] [address] Rajan Begum MD 10/01/2024 Telephone [facility] Medical [facility] Primary Care at [address], [place] [phone] Juni Hays MD Medical Question/Miscellaneo us 10/01/2024 Anticoagulation Telephone Call [facility] Medical [facility] Primary Care at [address], [place] [phone] Raisa Farnsworth PA 10/01/2024 Anticoagulation Telephone Call [facility] Medical [facility] Primary Care at [address] [place] [phone] Sugar Carlisle, ABDON 10/01/2024 Telephone [facility] Medical [facility] Primary Care at [address] [place] [phone] Juni Hays MD 09/30/2024 Orders Only [facility] at [address] [phone] Rajan Begum MD Nonocclusive coronary atherosclerosis of [place] coronary artery (Primary Dx); Dilated cardiomyopathy (CMS/HCC) (HCC); Paroxysmal atrial fibrillation (CMS/HCC) (HCC); Drug-induced hypotension; Elevated brain natriuretic peptide (BNP) level 09/30/2024 Telephone [facility] [address] [facility] [address], [address] [place] [phone] Regino Hansen MD 09/30/2024 10:30 AM ENGINE DESIGNER Office Visit [facility] at [address] [place] [phone] Rajan Begum MD Dilated cardiomyopathy (CMS/HCC) (HCC) (Primary Dx); Paroxysmal atrial fibrillation (CMS/HCC) (HCC) 09/23/2024 Anticoagulation Telephone Call [facility] Medical Group Primary Care at [facility] [address] [facility] [address], [place] [address] Sugar Carlisle NP 09/23/2024 Telephone [facility] Medical [facility] Primary Care at [facility] [address] [facility] [address], [place] [address] Juni Hays MD Test Results 09/22/2024 Orders Only [facility] Medical [facility] Primary Care at [facility] [address] [facility] [address], [place] [phone] Juni Hays MD Dysuria (Primary Dx) 09/22/2024 Telephone [facility] Primary Care at [facility] [address] [facility] [address], [place] [phone] Juni Hays MD Additional Services Or Orders 09/17/2024 Orders Only [facility] Oncology [address] [place] [address] Floor 5 [place] [phone] Candido Lobato MD Neuroendocrine cancer (HCC) (Primary Dx) 09/16/2024 Telephone [facility] [address] [place] [address] Floor 5 [place] [address] Candido Lobato MD 09/16/2024 3:00 PM ENGINE DESIGNER Telemedicine [facility] Medical Group Primary Care at [facility] [address] [facility] [address], [place] [phone] Juni Hays MD Chronic combined systolic and diastolic congestive heart failure (CMS/HCC) (HCC) (Primary Dx); Essential hypertension; Paroxysmal atrial fibrillation (CMS/HCC) (HCC); Weakness generalized; Atrial thrombus 09/16/2024 Telephone [facility] Primary Care at [facility] [address] [facility] [address], [place] [phone] Juni Hays MD Medical Question/Miscellaneo us 09/08/2024 Telephone [facility] [address] [place] [address] Floor 5 [place] [address] Candido Lobato MD 09/08/2024 Orders Only [facility] [address] [place] [address] 5 [place] [phone] Candido Lobato MD 09/06/2024 Telephone [facility] [address] [place] [address], [address] [place] [phone] Regino Hansen MD Rescheduling appt. 08/30/2024 Orders Only [facility] On[facility] [place] [address] Candido Lobato MD Neuroendocrine cancer (HCC) (Primary Dx) 08/30/2024 Orders Only [facility] [place] [address] Candido Lobato MD Neuroendocrine cancer (HCC) (Primary Dx) 08/23/2024 12:17 AM ENGINE DESIGNER - 08/30/2024 1:05 PM ENGINE DESIGNER Hospital Encounter [address] [address] Cipriano Lambert MD Volker[place], MD Daryl Womack Cesar, MD Lopez, Yves Akhtar MD Dilated cardiomyopathy (CMS/HCC) (HCC) [I42.0] (Primary Dx); Generalized weakness [R53.1]; Anemia, unspecified type [D64.9]; Paroxysmal atrial fibrillation (CMS/HCC) ([facility]) [I48.0]; Chronic pain syndrome [G89.4]; Chronic respiratory failure with hypoxia (CMS/HCC) ([facility]) [J96.11]; Palliative care by specialist [Z51.5]; Acute on chronic systolic heart failure (HCC) [I50.23]; Dyspnea due to congestive heart failure (CMS/HCC) ([facility]) [I50.9]; Atrial thrombus [I51.3]; Neuroendocrine cancer ([facility]) [C7A.8]; Postlaminectomy syndrome; Other chronic pain Discharge Disposition: Discharge to SNF from Last 3 Months Allergies Active Allergy Reactions Criticality Noted Date [...] total) by mouth daily 90 capsule 3 023 Active cyanocobalamin (Vitamin B-12) 1,000 mcg/mL injection Inject 1 mL (1,000 mcg total) into the muscle as instructed every 30 (thirty) days 1 mL 11 024 Active pen needle, diabetic (BD Tereza 2nd Gen Pen Needle) 32 gauge x 5/32 needleIndications :Uncontrolled type 2 diabetes mellitus with hyperglycemia (HCC) Use 4 times a day 400 each 3 Active OneTouch Delica Plus Lancet 30 gauge [...] TABLET(20 MEQ) BY MOUTH DAILY 30 tablet Active rOPINIRole (REQUIP) 0.25 mg tablet Take [...] total) by mouth daily 90 tablet 1 2024 Active Calcium 500 + D 500 [...] mellitus with hyperglycemia (HCC),Insulin long-term use (CMS/HCC) ([facility]) USE DIRECTED, CHANGE SENSOR EVERY 10 DAYS [...] 50 points greater than 150 mg/dl 025 Active insulin lispro (HumaLOG, ADMELOG) 100 unit/mL pen for injection Inject 7 Units under the skin 4 (four) times a day as needed (w/ snacks) Lispro 7 units Q4 hours as needed for snacks with greater than 20 grams of carbohydrate. 025 Active metFORMIN XR (GLUCOPHAGE XR) 500 mg 24 hr tabletIndications :Uncontrolled type 2 diabetes mellitus with hyperglycemia (HCC) Take 1 tablet (500 mg total) by mouth 2 (two) times a day 2 tabs po daily (hold if nause/vomit or not feeling well). 025 Active insulin lispro (HumaLOG, ADMELOG) 100 unit/mL pen for injection Inject 1-10 Units under the skin nightly Lispro bedtime correction 1 unit for every 50 points greater than 150 mg/dl 025 Active naloxone (NARCAN) 4 mg/actuation spray,non-aerosol Administer 1 spray into affected nostril(s) as needed for opioid reversal for up to 2 doses Call 911. Administer a single spray in one nostril. Repeat every 3 minutes as needed if no or minimal response. 2 each 024 2024 Discontinued(S top Taking at Discharge) blood-glucose sensor ([employer] G7 Sensor) deviceIndications :Uncontrolled type 2 diabetes [...] mouth daily with breakfast 90 tablet 3 2024 Discontinued(D uplicate order) furosemide (LASIX) 40 [...] Summary for Sliding Scale Insulin Instructions. 2024 Discontinued(D uplicate order) insulin lispro (HumaLOG, [...] 3 (three) times a day with meals 2024 Discontinued(D uplicate order) dextrose (GLUTOSE) 40 % gelIndications:hy poglycemic disorder Take 15 g by mouth every 15 (fifteen) minutes as needed for low blood sugar (blood glucose less than 70 mg/dL) 2024 Discontinued(S top Taking at Discharge) insulin glargine (LANTUS, SEMGLEE) 100 unit/mL vial for injectionIndicati ons:Diabetes Mellitus Inject 25 Units under the skin every morning 2024 Discontinued alendronate (FOSAMAX) 70 mg tablet [...] (two) times a day 180 tablet 3 2024 Discontinued LORazepam (ATIVAN) 0.5 mg tabletIndications :MRI scan anxiety Take 1 Tablet (0.5 mg) one hour prior to MRI and 1 Tablet (0.5 mg) if needed at time of scan, for MRI scan anxiety. 2 tablet 2024 Discontinued(T herapy completed) oxyCODONE (ROXICODONE) 10 [...] or not feeling well). 60 tablet 11 2024 Discontinued alendronate (FOSAMAX) 70 mg tablet [...] tablet (40 mg total) by mouth daily 2024 Discontinued insulin lispro (HumaLOG, ADMELOG) 100 [...] Visit Summary for Sliding Scale Insulin Instructions. 025 2024 Discontinued warfarin (COUMADIN) 2 mg tabletIndications :LV thrombus Take 1 tablet (2 mg total) by mouth daily 025 2024 Discontinued(S top Taking at Discharge) insulin glargine (LANTUS, SEMGLEE) 100 unit/mL vial for injectionIndicati ons:Diabetes Mellitus Inject 30 Units under the skin every morning 025 2024 Discontinued(S top Taking at Discharge) insulin glargine 100 unit/mL (3 mL) pen for injection Inject 27 Units under the skin nightly 025 2024 Discontinued insulin lispro (HumaLOG, ADMELOG) [...] Visit Summary for Sliding Scale Insulin Instructions. 025 2024 Discontinued(S top Taking at Discharge) [...] 11/30/2024 Assessment & Plan (11/30/2024 7:29 AM ENGINE DESIGNER): Remains medically stable for over a week. Waiting on insurance auth for SNF. Denied. P2P completed on 11/30 and decision overturned. -patient is a good SNF candidate requiring care from PT/OT and nursing staff. She requires adjustments to her insulin regimen and close monitoring of her respiratory status given severe CHF Heart failure 11/18/2024 Chest pain 11/08/2024 NSTEMI (non-ST elevated myocardial infarction) ( [facility]) 11/08/2024 Chronic combined systolic an d diastolic heart failure ([facility]) 10/25/2024 Atrial thrombus 08/26/2024 Assessment & Plan (11/29/2024 6:45 AM ENGINE DESIGNER): On warfarin at home, has been held pre operatively -11/20 bridge to therapeutic warfarin, restarted on home dose of warfarin 2mg -11/22: load with warfarin 5mg and switch back to home 2mg after that. -INR >3 so lovenox stopped. -cont warfarin 2mg. - INR daily Assessment & Plan (09/16/2024 6:15 PM ENGINE DESIGNER): Eliquis discontinued in favor of warfarin. Weakness generalized 08/23/2024 Assessment & Plan (09/16/2024 6:14 PM ENGINE DESIGNER): Probably combination of multiple beta-salbador usage and [...] 06/04/2024 Assessment & Plan (08/20/2024 7:53 AM ENGINE DESIGNER): Recent hospitalization for melena 2 months ago. [...] 12/01/2023 Assessment & Plan (11/29/2024 6:46 AM ENGINE DESIGNER): Chronic. 2/2 recent hospitalization and now post surgery. But chronically debilitated 2/2 severe CHF -PT/OT---evaluated during OSH admission and recommended SNF. Re-eval still rec SNF. Working on placement. -OOB, PT/OT. Assessment & Plan (12/01/2023 10:53 AM ENGINE DESIGNER): She has unfortunately been in and out of ours and other hospitals for the last several weeks due to multiple issues all contributing to her debility and declining functional status. Time course as follows: 10/29 - 11/02: admitted to [facility] for respiratory failure thought due to influenza [...] to worsening pain 11/08-11/20 - hospitalized at [facility] for compression fracture and intractable neck/back pain [...] 2023 Assessment & Plan (11/22/2023 2:26 PM ENGINE DESIGNER): - S/p prophylactic single chamber ICD (Biotronik) 07/15/23 for persistent LV dysfunction/non-ischemic cardiomyopathy Eye pain, left 2023 Assessment & Plan (11/24/2023 4:20 PM ENGINE DESIGNER): No evidence of corneal abrasion on exam [...] kyphoplasty. Assessment & Plan (12/03/2023 9:07 AM ENGINE DESIGNER): 3 week Hx of acute on chronic upper and mid thoracic back pain. +midline tenderness at sites without evidence of saddle symptoms/neurologic compromise. Hx of thoracolumbar to sacral fusion with Dr. Richardson ([facility]) 08/29/2022 followed by kyphoplasty above her fusion [...] 11/11/2023 Assessment & Plan (11/29/2024 6:46 AM ENGINE DESIGNER): On 3L O2 via NC at all times. - Continue supplemental O2 - SpO2 w/ tele. Closed wedge compression fracture of T5 vertebra 11/11/2023 Compression fracture of body of thoracic vertebr a (CMS/HCC) 11/10/2023 Intractable back pain 11/07/2023 Assessment & Plan (11/07/2023 8:36 AM ENGINE DESIGNER): Acute on chronic-worsening for the last 10 [...] 90%. Assessment & Plan (11/07/2023 8:40 AM ENGINE DESIGNER): Acute problem-stable Continue with oxygen supplement 2 to 3 L via nc as directed Continue to monitor Hypoxemia 10/29/2023 Assessment & Plan (05/31/2024 5:45 PM CDT): Continue oxygen supplementation at 2 liters/minute continuously. Continue efforts at weaning and discontinuation. Recommended incentive spirometry throughout the day. Nasal septum perforation 10/08/2023 Assessment & Plan (10/08/2023 2:38 PM ENGINE DESIGNER): Septal perforation Nasal saline spray (Simply saline, [employer] Remedies, [place], [place]) 2 second sprays or 2 squeezes into each nostril while looking down over the sink, do not need to sniff in 3-4 times per day Max out humidifier on CPAP Sniff in and spit out when using saline Chronic rhinitis 10/08/2023 Assessment & Plan (10/08/2023 2:38 PM ENGINE DESIGNER): Septal perforation Nasal saline spray (Simply saline, Little Remedies, [place], [place]) 2 second sprays or 2 squeezes into each nostril while looking down over the sink, do not need to sniff in 3-4 times per day Max out humidifier on CPAP Sniff in and spit out when using saline Epistaxis 10/08/2023 Assessment & Plan (10/08/2023 2:38 PM ENGINE DESIGNER): Septal perforation Nasal saline spray (Simply saline, [employer] Remedies, [place], [place]) 2 second sprays or 2 squeezes into each nostril while looking down over the sink, do not need to sniff in 3-4 times per day Max out humidifier on CPAP Sniff in and spit out when using saline Atrial fibrillation (CMS/HCC) 09/26/2023 Assessment & Plan (11/29/2024 6:44 AM ENGINE DESIGNER): - Continue home amiodarone, metoprolol. -AC as elsewhere. -tele Assessment & Plan (09/16/2024 6:12 PM ENGINE DESIGNER): Rate controlled on metoprolol and will continue warfarin. She is aware to take this medication in the evening. She knows to keep her leafy green vegetable intake consistent. She is also aware to call the office if she does not hear from us regarding her INR and warfarin instructions by the afternoon of testing. [facility] contacted today for INR results and we were told it would be faxed to us and have not yet received it. She is aware to go to the hospital for any signs of excessive bruising or bleeding. Assessment & Plan (05/31/2024 5:45 PM CDT): Eliquis for anticoagulation. Rate currently controlled on metoprolol. Cardiology recently added amiodarone. Assessment & Plan (12/01/2023 7:17 PM ENGINE DESIGNER): Eliquis for anticoagulation. Rate currently controlled Assessment & Plan (11/27/2023 3:57 PM ENGINE DESIGNER): Held Eliquis initially for procedure, now resumed. [...] devices 11/05/2022 02/06/2023 Restless legs syndrome 11/05/2022 3 Compression fx, thoracic spine, closed, initial encounter 10/17/2022 Neuroendocrine cancer 10/11/2022 Assessment & Plan (05/31/2024 5:44 PM CDT): Follow-up with oncology as they direct Assessment & Plan (12/01/2023 7:19 PM ENGINE DESIGNER): Follow-up with oncology as they direct Assessment & Plan (11/22/2023 2:24 PM ENGINE DESIGNER): Neuroendocrine tumor of liver. Follows with Dr. [...] direct Assessment & Plan (10/11/2022 6:46 PM ENGINE DESIGNER): Follow-up with oncology as they direct. Osteoporosis 10/11/2022 Assessment & Plan (07/30/2024 11:40 AM CDT): Continue management as directed by her ice resurfacing machine operators. Assessment & Plan (05/31/2024 5:45 PM CDT): Follow-up with her ice resurfacing machine operators for management as they direct. Assessment & Plan (01/02/2024 6:29 PM CDT): Follow-up with her ice resurfacing machine operators for management as they direct. Assessment & Plan (12/01/2023 7:19 PM ENGINE DESIGNER): Continue calcium, vitamin-D, weight-bearing exercise, alendronate and follow up with her bone density specialist and paint striping machine operator as they direct. Assessment & Plan (07/03/2023 11:56 AM CDT): Continue calcium, vitamin-D, weight-bearing exercise, alendronate follow-up bone density specialist and paint striping machine operator as they direct. Assessment & Plan (02/06/2023 5:09 PM CDT): Continue alendronate, calcium, vitamin-D and follow-up with her bone density specialist as they direct Assessment & Plan (01/20/2023 6:17 AM CDT): Calcium, vitamin-D, alendronate and follow-up with her bone density specialist as they direct. Assessment & Plan (10/11/2022 6:48 PM ENGINE DESIGNER): Continue calcium and vitamin-D and and alendronate and follow-up with her bone specialist as they direct. Follow-up with her spinal surgeon as they direct. Patient requires 24 hour care and [facility]. Generalized weakness 10/11/2022 Assessment & Plan (04/05/2023 7:51 AM CDT): Chronic- no improvement Continue with physical therapy for conditioning, weakness, muscle strengthening, gait stability as directed Assessment & Plan (10/11/2022 6:49 PM ENGINE DESIGNER): Due to combination of deconditioning from recent lumbar spinal fracture and surgery and hospitalization and COVID pneumonia and other multiple comorbidities. Family members can not meet her needs at home and therefore recommend [facility] bed [facility] for nursing, physical therapy care. Closed unstable burst fractu re of fourth lumbar vertebra, initial encounter 08/16/2022 Lumbar stenosis with neurogenic claudication 04/2022 Lumbar radiculopathy 07/05/2022 Overview (07/05/2022): Added automatically from request for surgery [id number] Hematuria 05/10/2022 Assessment & Plan (04/05/2023 8:06 [...] Will send urine for ua reflex to - pending results a referral for urology may [...] 05/10/2022 Assessment & Plan (08/20/2024 8:53 AM ENGINE DESIGNER): Patient has intermittent rectal bleeding with bright [...] AM CDT): Anusol cream p.r.n. 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 EGD/Colon without bleeding sources. Assessment & Plan (07/30/2024 11:42 AM CDT): Patient advised to have her CBC and iron panel done at [facility] as ordered by her manager credit. Follow up with Dr. Stevens for further [...] supplements. Assessment & Plan (09/25/2021 11:23 AM ENGINE DESIGNER): Check iron levels, B12, folate today. Call [...] improve Assessment & Plan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 Implanted:Qty: 6 on 08/26/2022 by Gunnar Richardson MD at [facility] N/A: Spine Lumbar Depuy Synthes Spine [id number] / / Biotronik Inc Lead Defibrillator Plexa Promri L65cm L15cm Cardiac Df4 Sterile Latex Free Disposable S Dx [id number] - [id number] - [id number] Implanted:Qty: 1 on 07/15/2023 by Rajan Begum MD at [facility] Left: Chest Biotronik Inc 05/12/2025 [id number] / [id number] / Biotronik Inc Defibrillator Cardiac Acticor 7 Vr-T Dx 975419 - [id number] - [id number] Implanted:Qty: 1 on 07/15/2023 by Rajan Begum MD at [facility] Left: Chest Biotronik Inc 04/11/2025 [id number] / [id number] / Medtronic Inc Tyrx 3.35x3in Large Envelope Absorbable Polyarylate Minocycline [id number] - [id number] Implanted:Qty: 1 on 07/15/2023 by Rajan Begum MD at [facility] Left: Chest Medtronic Inc 02/13/2024 [id number] / / [id number] Monte & Nephew/Richco/Orth o Screw Bone Cannulated St Partial Thread 6.5x75mm Ss [id number] - [id number] Implanted:Qty: 1 on 06/09/2024 by Jaspreet Greer MD at [facility] Right: Hip [employer]hew/Rich[employer]/ Ortho [id number] / / Monte & Nephew/Richco/Orth o 8mm 90mm 24mm Cannulated Long Bone Small Bone Screw Bone [id number] - [id number] Implanted:Qty: 1 on 06/09/2024 by Jaspreet Greer MD at [facility] Right: Hip [employer] Nephew/Richco/ Ortho [id number] / / Monte & Nephew/Richco/Orth o 8mm 85mm 22mm Cannulated Long Bone Small Bone Screw Bone [id number] - [id number] Implanted:Qty: 1 on 06/09/2024 by Jaspreet Greer MD at [facility] Right: Hip [employer]hew/Richco/ Ortho [id number] / / Cvrx Inc System Generator Neurostimulator Deep Brain Stim Permanent Lead Barostim 299537-749 - [id number] - [id number] Implanted:Qty: 1 on 11/18/2024 by Hesham Madsen MD at [facility] Right: Chest Cvrx Inc 12/09/2024 206403-693 / [id number] / Description:Barostim generat or with leads. P/[id number] sn [id number] model 2104 Cvrx Inc Generator Neurostimulator Deep Brain Stim Permanent Lead No Hardware Barostim 183737-400 - [id number] - [id number] Implanted:Qty: 1 on 11/18/2024 by Hesham Madsen MD at [facility] Right: Chest Cvrx Inc 12/09/2024 615771-815 / [id number] / Description:Marked NON chareduar fulton. This is a kit the goes with item [id number] that is documented on the case Procedures Procedure Name Priority Date/Time Associated Diagnosis Comments POCT GLUCOSE DEVICE Routine 11/30/2024 11:42 AM ENGINE DESIGNER POCT GLUCOSE DEVICE Routine 11/30/2024 7 :37 AM ENGINE DESIGNER POCT GLUCOSE DEVICE Routine 11/30/2024 2 :12 AM ENGINE DESIGNER EGFR STAT 11/30/2024 12:02 AM ENGINE DESIGNER BASIC METABOLIC PANEL STAT 11/30/2024 12:02 AM ENGINE DESIGNER POCT GLUCOSE DEVICE Routine 11/29/2024 9 :58 PM ENGINE DESIGNER EGFR Routine 11/29/2024 8:56 PM ENGINE DESIGNER CRITICAL RESULT CALLBACK CHEMISTRY Routine 11/29/2024 8:56 PM ENGINE DESIGNER DIFFERENTIAL AUTO Routine 11/29/2024 8:5 6 PM ENGINE DESIGNER PROTIME-INR Routine 11/29/2024 8:56 PM ENGINE DESIGNER CBC WITH AUTO DIFFERENTIAL Routine 11/29/2024 8:56 PM ENGINE DESIGNER BASIC METABOLIC PANEL Routine 11/29/2024 8:56 PM ENGINE DESIGNER POCT GLUCOSE DEVICE Routine 11/29/2024 7 :29 PM ENGINE DESIGNER POCT GLUCOSE DEVICE Routine 11/29/2024 5 :12 PM ENGINE DESIGNER POCT GLUCOSE DEVICE Routine 11/29/2024 11:17 AM ENGINE DESIGNER POCT GLUCOSE DEVICE Routine 11/29/2024 7 :42 AM ENGINE DESIGNER POCT GLUCOSE DEVICE Routine 11/29/2024 2 :07 AM ENGINE DESIGNER POCT GLUCOSE DEVICE Routine 11/29/2024 12:02 AM ENGINE DESIGNER EGFR Routine 11/28/2024 9:54 PM ENGINE DESIGNER DIFFERENTIAL AUTO Routine 11/28/2024 9:5 4 PM ENGINE DESIGNER PROTIME-INR Routine 11/28/2024 9:54 PM ENGINE DESIGNER CBC WITH AUTO DIFFERENTIAL Routine 11/28/2024 9:54 PM ENGINE DESIGNER BASIC METABOLIC PANEL Routine 11/28/2024 9:54 PM ENGINE DESIGNER POCT GLUCOSE DEVICE Routine 11/28/2024 7 :26 PM ENGINE DESIGNER POCT GLUCOSE DEVICE Routine 11/28/2024 6 :16 PM ENGINE DESIGNER POCT GLUCOSE DEVICE Routine 11/28/2024 5 :01 PM ENGINE DESIGNER POCT GLUCOSE DEVICE Routine 11/28/2024 11:19 AM ENGINE DESIGNER POCT GLUCOSE DEVICE Routine 11/28/2024 7 :20 AM ENGINE DESIGNER POCT GLUCOSE DEVICE Routine 11/28/2024 2 :02 AM ENGINE DESIGNER POCT GLUCOSE DEVICE Routine 11/27/2024 10:58 PM ENGINE DESIGNER EGFR Routine 11/27/2024 9:47 PM ENGINE DESIGNER DIFFERENTIAL AUTO Routine 11/27/2024 9:4 7 PM ENGINE DESIGNER PROTIME-INR Routine 11/27/2024 9:47 PM ENGINE DESIGNER CBC WITH AUTO DIFFERENTIAL Routine 11/27/2024 9:47 PM ENGINE DESIGNER BASIC METABOLIC PANEL Routine 11/27/2024 9:47 PM ENGINE DESIGNER POCT GLUCOSE DEVICE Routine 11/27/2024 8 :31 PM ENGINE DESIGNER POCT GLUCOSE DEVICE Routine 11/27/2024 4 :59 PM ENGINE DESIGNER POCT GLUCOSE DEVICE Routine 11/27/2024 11:42 AM ENGINE DESIGNER POCT GLUCOSE DEVICE Routine 11/27/2024 7 :21 AM ENGINE DESIGNER POCT GLUCOSE DEVICE Routine 11/27/2024 4 :10 AM ENGINE DESIGNER POCT GLUCOSE DEVICE Routine 11/26/2024 11:38 PM ENGINE DESIGNER EGFR Routine 11/26/2024 9:00 PM ENGINE DESIGNER DIFFERENTIAL AUTO Routine 11/26/2024 9:0 0 PM ENGINE DESIGNER PROTIME-INR Routine 11/26/2024 9:00 PM ENGINE DESIGNER CBC WITH AUTO DIFFERENTIAL Routine 11/26/2024 9:00 PM ENGINE DESIGNER BASIC METABOLIC PANEL Routine 11/26/2024 9:00 PM ENGINE DESIGNER POCT GLUCOSE DEVICE Routine 11/26/2024 8 :11 PM ENGINE DESIGNER POCT GLUCOSE DEVICE Routine 11/26/2024 4 :58 PM ENGINE DESIGNER POCT GLUCOSE DEVICE Routine 11/26/2024 11:50 AM ENGINE DESIGNER POCT GLUCOSE DEVICE Routine 11/26/2024 9 :56 AM ENGINE DESIGNER POCT GLUCOSE DEVICE Routine 11/26/2024 8 :08 AM ENGINE DESIGNER POCT GLUCOSE DEVICE Routine 11/26/2024 4 :08 AM ENGINE DESIGNER POCT GLUCOSE DEVICE Routine 11/26/2024 12:28 AM ENGINE DESIGNER URINALYSIS, MICROSCOPIC ONLY Routine 11/26/2024 12:16 AM ENGINE DESIGNER URINALYSIS AND REFLEX TO MICROSCOPIC AND CULTURE Routine 11/26/2024 12:16 AM ENGINE DESIGNER EGFR Routine 11/26/2024 12:10 AM ENGINE DESIGNER DIFFERENTIAL AUTO Routine 11/26/2024 12:10 AM ENGINE DESIGNER PROTIME-INR Routine 11/26/2024 12:10 AM ENGINE DESIGNER CBC WITH AUTO DIFFERENTIAL Routine 11/26/2024 12:10 AM ENGINE DESIGNER BASIC METABOLIC PANEL Routine 11/26/2024 12:10 AM ENGINE DESIGNER POCT GLUCOSE DEVICE Routine 11/25/2024 10:40 PM ENGINE DESIGNER POCT GLUCOSE DEVICE Routine 11/25/2024 9 :37 PM ENGINE DESIGNER POCT GLUCOSE DEVICE Routine 11/25/2024 8 :11 PM ENGINE DESIGNER POCT GLUCOSE DEVICE Routine 11/25/2024 5 :09 PM ENGINE DESIGNER POCT GLUCOSE DEVICE Routine 11/25/2024 2 :32 PM ENGINE DESIGNER POCT GLUCOSE DEVICE Routine 11/25/2024 11:40 AM ENGINE DESIGNER XR CHEST 1 VIEW ED Urgent/IP Urgent 11/25/2024 9:35 AM ENGINE DESIGNER POCT GLUCOSE DEVICE Routine 11/25/2024 7 :51 AM ENGINE DESIGNER EGFR Routine 11/24/2024 10:08 PM ENGINE DESIGNER DIFFERENTIAL AUTO Routine 11/24/2024 10:08 PM ENGINE DESIGNER PROTIME-INR Routine 11/24/2024 10:08 PM ENGINE DESIGNER CBC WITH AUTO DIFFERENTIAL Routine 11/24/2024 10:08 PM ENGINE DESIGNER BASIC METABOLIC PANEL Routine 11/24/2024 10:08 PM ENGINE DESIGNER POCT GLUCOSE DEVICE Routine 11/24/2024 7 :52 PM ENGINE DESIGNER POCT GLUCOSE DEVICE Routine 11/24/2024 5 :06 PM ENGINE DESIGNER POCT GLUCOSE DEVICE Routine 11/24/2024 4 :01 PM ENGINE DESIGNER POCT GLUCOSE DEVICE Routine 11/24/2024 3 :01 PM ENGINE DESIGNER POCT GLUCOSE DEVICE Routine 11/24/2024 1 :57 PM ENGINE DESIGNER POCT GLUCOSE DEVICE Routine 11/24/2024 12:16 PM ENGINE DESIGNER POCT GLUCOSE DEVICE Routine 11/24/2024 7 :25 AM ENGINE DESIGNER EGFR Routine 11/23/2024 10:31 PM ENGINE DESIGNER DIFFERENTIAL AUTO Routine 11/23/2024 10:31 PM ENGINE DESIGNER PROTIME-INR Routine 11/23/2024 10:31 PM ENGINE DESIGNER CBC WITH AUTO DIFFERENTIAL Routine 11/23/2024 10:31 PM ENGINE DESIGNER BASIC METABOLIC PANEL Routine 11/23/2024 10:31 PM ENGINE DESIGNER POCT GLUCOSE DEVICE Routine 11/23/2024 10:13 PM ENGINE DESIGNER POCT GLUCOSE DEVICE Routine 11/23/2024 8 :11 PM ENGINE DESIGNER POCT GLUCOSE DEVICE Routine 11/23/2024 6 :23 PM ENGINE DESIGNER POCT GLUCOSE DEVICE Routine 11/23/2024 4 :35 PM ENGINE DESIGNER POCT GLUCOSE DEVICE Routine 11/23/2024 4 :34 PM ENGINE DESIGNER POCT GLUCOSE DEVICE Routine 11/23/2024 12:28 PM ENGINE DESIGNER POCT GLUCOSE DEVICE Routine 11/23/2024 8 :07 AM ENGINE DESIGNER POCT GLUCOSE DEVICE Routine 11/22/2024 8 :03 PM ENGINE DESIGNER DIFFERENTIAL AUTO Routine 11/22/2024 7:0 5 PM ENGINE DESIGNER CBC WITH AUTO DIFFERENTIAL Routine 11/22/2024 7:05 PM ENGINE DESIGNER BASIC METABOLIC PANEL Timed 11/22/2024 7:04 PM ENGINE DESIGNER EGFR Timed 11/22/2024 7:04 PM ENGINE DESIGNER APTT Routine 11/22/2024 7:04 PM ENGINE DESIGNER TROPONIN I HIGH-SENSITIVITY Timed 11/22/2024 7:04 PM ENGINE DESIGNER PHOSPHORUS Timed 11/22/2024 7:04 PM ENGINE DESIGNER MAGNESIUM Timed 11/22/2024 7:04 PM ENGINE DESIGNER PROTIME-INR Routine 11/22/2024 7:04 PM ENGINE DESIGNER POCT GLUCOSE DEVICE Routine 11/22/2024 6 :56 PM ENGINE DESIGNER POCT GLUCOSE DEVICE Routine 11/22/2024 5 :27 PM ENGINE DESIGNER XR CHEST 1 VIEW ED Urgent/IP Urgent 11/22/2024 3:32 PM ENGINE DESIGNER POCT GLUCOSE DEVICE Routine 11/22/2024 2 :42 PM ENGINE DESIGNER POCT GLUCOSE DEVICE Routine 11/22/2024 11:57 AM ENGINE DESIGNER POCT GLUCOSE DEVICE Routine 11/22/2024 8 :10 AM ENGINE DESIGNER APTT STAT 11/22/2024 12:22 AM ENGINE DESIGNER CRITICAL RESULT CALLBACK HEMATOLOGY STAT 2024 10:06 PM ENGINE DESIGNER EGFR Routine 2024 10:06 PM ENGINE DESIGNER DIFFERENTIAL AUTO Routine 2024 10:06 PM ENGINE DESIGNER APTT STAT 2024 10:06 PM ENGINE DESIGNER PROTIME-INR Routine 2024 10:06 PM ENGINE DESIGNER CBC WITH AUTO DIFFERENTIAL Routine 2024 10:06 PM ENGINE DESIGNER BASIC METABOLIC PANEL Routine 2024 10:06 PM ENGINE DESIGNER POCT GLUCOSE DEVICE Routine 2024 7 :21 PM ENGINE DESIGNER POCT GLUCOSE DEVICE Routine 2024 4 :43 PM ENGINE DESIGNER POCT GLUCOSE DEVICE Routine 2024 12:22 PM ENGINE DESIGNER POCT GLUCOSE DEVICE Routine 2024 8 :06 AM ENGINE DESIGNER POCT GLUCOSE DEVICE Routine 2024 3 :35 AM ENGINE DESIGNER POCT GLUCOSE DEVICE Routine 2024 12:12 AM ENGINE DESIGNER EGFR Routine 11/20/2024 10:13 PM ENGINE DESIGNER DIFFERENTIAL AUTO Routine 11/20/2024 10:13 PM ENGINE DESIGNER APTT STAT 11/20/2024 10:13 PM ENGINE DESIGNER PROTIME-INR Routine 11/20/2024 10:13 PM ENGINE DESIGNER CBC WITH AUTO DIFFERENTIAL Routine 11/20/2024 10:13 PM ENGINE DESIGNER BASIC METABOLIC PANEL Routine 11/20/2024 10:13 PM ENGINE DESIGNER TROPONIN I HIGH-SENSITIVITY 6-HOUR Timed 11/20/2024 10:13 PM ENGINE DESIGNER POCT GLUCOSE DEVICE Routine 11/20/2024 8 :01 PM ENGINE DESIGNER POCT GLUCOSE DEVICE Routine 11/20/2024 4 :36 PM ENGINE DESIGNER APTT STAT 11/20/2024 2:58 PM ENGINE DESIGNER POCT GLUCOSE DEVICE Routine 11/20/2024 11:17 AM ENGINE DESIGNER PROTIME-INR STAT 11/20/2024 8:28 AM ENGINE DESIGNER APTT STAT 11/20/2024 8:28 AM ENGINE DESIGNER POCT GLUCOSE DEVICE Routine 11/20/2024 7 :44 AM ENGINE DESIGNER CBC WITHOUT DIFFERENTIAL Timed 11/20/2024 2:16 AM ENGINE DESIGNER TROPONIN I HIGH-SENSITIVITY 4-HOUR Timed 11/20/2024 2:16 AM ENGINE DESIGNER CRITICAL RESULT CALLBACK CARDIO CHEM Timed 11/20/2024 12:24 AM ENGINE DESIGNER EGFR Routine 11/20/2024 12:24 AM ENGINE DESIGNER TROPONIN I HIGH-SENSITIVITY 2-HOUR Timed 11/20/2024 12:24 AM ENGINE DESIGNER APTT STAT 11/20/2024 12:24 AM ENGINE DESIGNER BASIC METABOLIC PANEL Routine 11/20/2024 12:24 AM ENGINE DESIGNER POCT GLUCOSE DEVICE Routine 11/19/2024 11:01 PM ENGINE DESIGNER TROPONIN I HIGH-SENSITIVITY SERIES (BASELINE, 2HR, 4HR, 6HR) Timed 11/19/2024 10:15 PM ENGINE DESIGNER ECG 12-LEAD Routine 11/19/2024 10:11 PM ENGINE DESIGNER POCT GLUCOSE DEVICE Routine 11/19/2024 7 :20 PM ENGINE DESIGNER POCT GLUCOSE DEVICE Routine 11/19/2024 4 :39 PM ENGINE DESIGNER APTT STAT 11/19/2024 3:39 PM ENGINE DESIGNER POCT GLUCOSE DEVICE Routine 11/19/2024 12:05 PM ENGINE DESIGNER POCT GLUCOSE DEVICE Routine 11/19/2024 12:03 PM ENGINE DESIGNER HEMOGLOBIN A1C Routine 11/19/2024 8:52 AM ENGINE DESIGNER EGFR Routine 11/19/2024 8:52 AM ENGINE DESIGNER DIFFERENTIAL AUTO Routine 11/19/2024 8:5 2 AM ENGINE DESIGNER APTT STAT 11/19/2024 8:52 AM ENGINE DESIGNER PROTIME-INR STAT 11/19/2024 8:52 AM ENGINE DESIGNER CBC WITH AUTO DIFFERENTIAL Routine 11/19/2024 8:52 AM ENGINE DESIGNER BASIC METABOLIC PANEL Routine 11/19/2024 8:52 AM ENGINE DESIGNER POCT GLUCOSE DEVICE Routine 11/19/2024 7 :46 AM ENGINE DESIGNER EGFR Routine 11/19/2024 4:37 AM ENGINE DESIGNER CBC WITHOUT DIFFERENTIAL Timed 11/19/2024 4:37 AM ENGINE DESIGNER BASIC METABOLIC PANEL Routine 11/19/2024 4:37 AM ENGINE DESIGNER POCT GLUCOSE DEVICE Routine 11/19/2024 2 :58 AM ENGINE DESIGNER POCT GLUCOSE DEVICE Routine 11/18/2024 10:55 PM ENGINE DESIGNER POCT GLUCOSE DEVICE Routine 11/18/2024 7 :25 PM ENGINE DESIGNER DIFFERENTIAL AUTO Routine 11/18/2024 5:5 3 PM ENGINE DESIGNER CBC WITH AUTO DIFFERENTIAL Routine 11/18/2024 5:53 PM ENGINE DESIGNER POCT GLUCOSE DEVICE Routine 11/18/2024 4 :41 PM ENGINE DESIGNER POCT GLUCOSE DEVICE Routine 11/18/2024 2 :03 PM ENGINE DESIGNER POCT GLUCOSE DEVICE Routine 11/18/2024 1 :15 PM ENGINE DESIGNER TRANSFUSE RED BLOOD CELLS Timed 11/18/2024 12:39 PM ENGINE DESIGNER POCT GLUCOSE DEVICE Routine 11/18/2024 12:02 PM ENGINE DESIGNER POCT GLUCOSE DEVICE Routine 11/18/2024 11:13 AM ENGINE DESIGNER TYPE AND SCREEN Timed 11/18/2024 10:26 AM ENGINE DESIGNER POCT GLUCOSE DEVICE Routine 11/18/2024 10:13 AM ENGINE DESIGNER PREPARE RBC Timed 11/18/2024 9:58 AM ENGINE DESIGNER POC BLOOD GAS AND CHEMISTRIES, ARTERIAL Routine 11/18/2024 9:39 AM ENGINE DESIGNER MA AN PROCEDURE PLACEHOLDER Routine 11/18/2024 9:01 AM ENGINE DESIGNER MA AN PROCEDURE PLACEHOLDER Routine 11/18/2024 9:01 AM ENGINE DESIGNER MA AN PROCEDURE PLACEHOLDER Routine 11/18/2024 9:00 AM ENGINE DESIGNER MA AN ELECTIVE ENDOTRACHEAL AIRWAY Routine 11/18/2024 9:00 AM ENGINE DESIGNER POCT GLUCOSE DEVICE Routine 11/18/2024 8 :48 AM ENGINE DESIGNER EXPLORATION - CAROTID 11/18/2024 7:40 AM ENGINE DESIGNER 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) POCT GLUCOSE DEVICE Routine 11/18/2024 6 :37 AM ENGINE DESIGNER POCT GLUCOSE DEVICE Routine 11/17/2024 11:48 AM ENGINE DESIGNER POCT GLUCOSE DEVICE Routine 11/17/2024 7 :55 AM ENGINE DESIGNER EGFR Routine 11/17/2024 2:31 AM ENGINE DESIGNER BASIC METABOLIC PANEL Routine 11/17/2024 2:31 AM ENGINE DESIGNER POCT GLUCOSE DEVICE Routine 11/17/2024 1 :38 AM ENGINE DESIGNER POCT GLUCOSE DEVICE Routine 11/16/2024 8 :33 PM ENGINE DESIGNER POCT GLUCOSE DEVICE Routine 11/16/2024 4 :29 PM ENGINE DESIGNER COVID-19 CORONAVIRUS RNA Routine 11/16/2024 12:37 PM ENGINE DESIGNER POCT GLUCOSE DEVICE Routine 11/16/2024 11:37 AM ENGINE DESIGNER POCT GLUCOSE DEVICE Routine 11/16/2024 8 :06 AM ENGINE DESIGNER POCT GLUCOSE DEVICE Routine 11/16/2024 1 :44 AM ENGINE DESIGNER POCT GLUCOSE DEVICE Routine 11/15/2024 8 :17 PM ENGINE DESIGNER POCT GLUCOSE DEVICE Routine 11/15/2024 5 :06 PM ENGINE DESIGNER POCT GLUCOSE DEVICE Routine 11/15/2024 11:45 AM ENGINE DESIGNER POCT GLUCOSE DEVICE Routine 11/15/2024 8 :08 AM ENGINE DESIGNER POTASSIUM LEVEL Timed 11/15/2024 5:04 AM ENGINE DESIGNER MAGNESIUM Timed 11/15/2024 5:04 AM ENGINE DESIGNER POCT GLUCOSE DEVICE Routine 11/15/2024 4 :01 AM ENGINE DESIGNER POCT GLUCOSE DEVICE Routine 11/15/2024 1 :51 AM ENGINE DESIGNER POCT GLUCOSE DEVICE Routine 11/14/2024 8 :08 PM ENGINE DESIGNER POCT GLUCOSE DEVICE Routine 11/14/2024 4 :53 PM ENGINE DESIGNER POCT GLUCOSE DEVICE Routine 11/14/2024 12:17 PM ENGINE DESIGNER POCT GLUCOSE DEVICE Routine 11/14/2024 7 :56 AM ENGINE DESIGNER POCT GLUCOSE DEVICE Routine 11/14/2024 2 :49 AM ENGINE DESIGNER POCT GLUCOSE DEVICE Routine 11/13/2024 8 :19 PM ENGINE DESIGNER POCT GLUCOSE DEVICE Routine 11/13/2024 4 :52 PM ENGINE DESIGNER POCT GLUCOSE DEVICE Routine 11/13/2024 11:52 AM ENGINE DESIGNER POCT GLUCOSE DEVICE Routine 11/13/2024 7 :55 AM ENGINE DESIGNER POCT GLUCOSE DEVICE Routine 11/13/2024 1 :40 AM ENGINE DESIGNER POCT GLUCOSE DEVICE Routine 11/12/2024 8 :24 PM ENGINE DESIGNER POCT GLUCOSE DEVICE Routine 11/12/2024 5 :12 PM ENGINE DESIGNER POCT GLUCOSE DEVICE Routine 11/12/2024 11:59 AM ENGINE DESIGNER POCT GLUCOSE DEVICE Routine 11/12/2024 8 :30 AM ENGINE DESIGNER EGFR Routine 11/12/2024 3:07 AM ENGINE DESIGNER DIFFERENTIAL AUTO Routine 11/12/2024 3:0 7 AM ENGINE DESIGNER MAGNESIUM Routine 11/12/2024 3:07 AM ENGINE DESIGNER COMPREHENSIVE METABOLIC PANEL Routine 11/12/2024 3:07 AM ENGINE DESIGNER CBC WITH AUTO DIFFERENTIAL Routine 11/12/2024 3:07 AM ENGINE DESIGNER POCT GLUCOSE DEVICE Routine 11/12/2024 2 :49 AM ENGINE DESIGNER POCT GLUCOSE DEVICE Routine 11/11/2024 8 :20 PM ENGINE DESIGNER POCT GLUCOSE DEVICE Routine 11/11/2024 5 :18 PM ENGINE DESIGNER POCT GLUCOSE DEVICE Routine 11/11/2024 2 :40 PM ENGINE DESIGNER POCT GLUCOSE DEVICE Routine 11/11/2024 11:44 AM ENGINE DESIGNER POCT GLUCOSE DEVICE Routine 11/11/2024 8 :18 AM ENGINE DESIGNER POCT GLUCOSE DEVICE Routine 11/11/2024 3 :46 AM ENGINE DESIGNER EGFR Routine 11/11/2024 2:16 AM ENGINE DESIGNER DIFFERENTIAL AUTO Routine 11/11/2024 2:1 6 AM ENGINE DESIGNER MAGNESIUM Routine 11/11/2024 2:16 AM ENGINE DESIGNER COMPREHENSIVE METABOLIC PANEL Routine 11/11/2024 2:16 AM ENGINE DESIGNER CBC WITH AUTO DIFFERENTIAL Routine 11/11/2024 2:16 AM ENGINE DESIGNER POCT GLUCOSE DEVICE Routine 11/11/2024 1 :41 AM ENGINE DESIGNER POCT GLUCOSE DEVICE Routine 11/10/2024 8 :50 PM ENGINE DESIGNER POCT GLUCOSE DEVICE Routine 11/10/2024 4 :52 PM ENGINE DESIGNER POCT GLUCOSE DEVICE Routine 11/10/2024 11:57 AM ENGINE DESIGNER TRANSTHORACIC ECHO (TTE) LIMITED/FOLLOW UP WO DOPPLER/CF W CONTRAST STAT 11/10/2024 9:50 AM ENGINE DESIGNER POCT GLUCOSE DEVICE Routine 11/10/2024 8 :00 AM ENGINE DESIGNER EGFR Routine 11/10/2024 2:27 AM ENGINE DESIGNER DIFFERENTIAL AUTO Routine 11/10/2024 2:2 7 AM ENGINE DESIGNER PRO B-TYPE NATRIURETIC PEPTIDE Routine 11/10/2024 2:27 AM ENGINE DESIGNER MAGNESIUM Routine 11/10/2024 2:27 AM ENGINE DESIGNER COMPREHENSIVE METABOLIC PANEL Routine 11/10/2024 2:27 AM ENGINE DESIGNER CBC WITH AUTO DIFFERENTIAL Routine 11/10/2024 2:27 AM ENGINE DESIGNER POCT GLUCOSE DEVICE Routine 11/10/2024 1 :48 AM ENGINE DESIGNER POCT GLUCOSE DEVICE Routine 11/09/2024 8 :39 PM ENGINE DESIGNER POCT GLUCOSE DEVICE Routine 11/09/2024 5 :23 PM ENGINE DESIGNER POCT GLUCOSE DEVICE Routine 11/09/2024 11:06 AM ENGINE DESIGNER XR CHEST 1 VIEW ED Urgent/IP Urgent 11/09/2024 10:32 AM ENGINE DESIGNER POCT GLUCOSE DEVICE Routine 11/09/2024 7 :16 AM ENGINE DESIGNER POCT GLUCOSE DEVICE Routine 11/09/2024 2 :08 AM ENGINE DESIGNER EGFR Routine 11/09/2024 2:08 AM ENGINE DESIGNER DIFFERENTIAL AUTO Routine 11/09/2024 2:0 8 AM ENGINE DESIGNER MAGNESIUM Routine 11/09/2024 2:08 AM ENGINE DESIGNER COMPREHENSIVE METABOLIC PANEL Routine 11/09/2024 2:08 AM ENGINE DESIGNER CBC WITH AUTO DIFFERENTIAL Routine 11/09/2024 2:08 AM ENGINE DESIGNER POCT GLUCOSE DEVICE Routine 11/08/2024 8 :36 PM ENGINE DESIGNER POCT GLUCOSE DEVICE Routine 11/08/2024 4 :57 PM ENGINE DESIGNER TROPONIN T HIGH-SENSITIVITY Timed 11/08/2024 2:31 PM ENGINE DESIGNER POCT GLUCOSE DEVICE Routine 11/08/2024 12:04 PM ENGINE DESIGNER POCT GLUCOSE DEVICE Routine 11/08/2024 8 :00 AM ENGINE DESIGNER TROPONIN T HIGH-SENSITIVITY Timed 11/08/2024 7:44 AM ENGINE DESIGNER EGFR Routine 11/08/2024 2:30 AM ENGINE DESIGNER DIFFERENTIAL AUTO Routine 11/08/2024 2:3 0 AM ENGINE DESIGNER APTT STAT 11/08/2024 2:30 AM ENGINE DESIGNER CBC WITHOUT DIFFERENTIAL STAT 11/08/2024 2:30 AM ENGINE DESIGNER PROTIME-INR STAT 11/08/2024 2:30 AM ENGINE DESIGNER LIPID PANEL Routine 11/08/2024 2:30 AM ENGINE DESIGNER MAGNESIUM Routine 11/08/2024 2:30 AM ENGINE DESIGNER COMPREHENSIVE METABOLIC PANEL Routine 11/08/2024 2:30 AM ENGINE DESIGNER CBC WITH AUTO DIFFERENTIAL Routine 11/08/2024 2:30 AM ENGINE DESIGNER PRO B-TYPE NATRIURETIC PEPTIDE Routine 11/08/2024 2:30 AM ENGINE DESIGNER TROPONIN T HIGH-SENSITIVITY Timed 11/08/2024 2:30 AM ENGINE DESIGNER PROTIME-INR Routine 11/08/2024 2:24 AM ENGINE DESIGNER POCT GLUCOSE DEVICE Routine 11/08/2024 1 :48 AM ENGINE DESIGNER SCAN - LABS 11/07/2024 SCAN - RADIOLOGY/IMAGING 11/07/2024 SCAN - LABS 11/04/2024 PROTIME-INR Routine 11/04/2024 MRI ABDOMEN LIVER W WO CONTRAST Schedule Routine, Read Routine (OP Routine) 10/27/2024 12:54 PM ENGINE DESIGNER Neuroendocrine cancer (HCC) Secondary neuroendocrine tumors (HCC) XR CHEST PA LATERAL 2 VIEWS Schedule Routine, Read Routine (OP Routine) 10/27/2024 9:14 AM ENGINE DESIGNER Encounter for imaging to screen for metal prior to magnetic resonance imaging (MRI) PROTIME-INR Routine 10/27/2024 US CAROTIDS DUPLEX BILATERAL Schedule Routine, Read Routine (OP Routine) 10/25/2024 2:57 PM ENGINE DESIGNER Encounter for other preprocedural examination SCAN - LABS 10/22/2024 DEVICE CHECK - REMOTE Routine 10/19/2024 10:10 AM ENGINE DESIGNER ICD (implantable cardioverter-defibri llator) in place Dilated cardiomyopathy (CMS/HCC) (HCC) Paroxysmal A-fib (CMS/HCC) (HCC) PROTIME-INR Routine 10/14/2024 PROTIME-INR Routine 10/07/2024 PROTIME-INR Routine 10/01/2024 PROTIME-INR Routine 10/01/2024 PROTIME-INR Routine 09/23/2024 SCAN - LABS 09/13/2024 POCT GLUCOSE DEVICE Routine 08/30/2024 12:36 PM ENGINE DESIGNER URINALYSIS, MICROSCOPIC ONLY Routine 08/30/2024 9:28 AM ENGINE DESIGNER URINALYSIS AND REFLEX TO MICROSCOPIC AND CULTURE Routine 08/30/2024 9:28 AM ENGINE DESIGNER POCT GLUCOSE DEVICE Routine 08/30/2024 7 :49 AM ENGINE DESIGNER MAGNESIUM Routine 08/30/2024 2:25 AM ENGINE DESIGNER ADD ON LAB TEST Add-On 08/30/2024 2:25 AM ENGINE DESIGNER EGFR Routine 08/30/2024 2:25 AM ENGINE DESIGNER DIFFERENTIAL AUTO Routine 08/30/2024 2:2 5 AM ENGINE DESIGNER BASIC METABOLIC PANEL Routine 08/30/2024 2:25 AM ENGINE DESIGNER PROTIME-INR Routine 08/30/2024 2:25 AM ENGINE DESIGNER CBC WITH AUTO DIFFERENTIAL Routine 08/30/2024 2:25 AM ENGINE DESIGNER HEPATITIS PANEL, ACUTE Routine 06/07/2024 4:33 AM CDT DIABETIC EYE EXAM Routine 01/26/2024 2:2 7 PM CDT SCREENING MAMMOGRAM BILATERAL W [place] Schedule Routine, Read Routine (OP Routine) 04/01/2023 8:51 AM CDT Screening mammogram, encounter for ALBUMIN CREATININE RATIO, URINE Routine 10/11/2022 10:25 AM ENGINE DESIGNER Type 2 diabetes mellitus with hyperlipidemia (HCC) Essential hypertension COLONOSCOPY 02/05/2022 1:10 PM CDT from Last 3 Months or Most Recently Relevant to Health Maintenance Results * POCT glucose (11/30/2024 11:42 AM ENGINE DESIGNER) Glucose, POC 121 70 - 199 mg/dL Blood 11/30/2024 11:4 2 AM ENGINE DESIGNER 11/30/2024 11:42 AM ENGINE DESIGNER Hesham Madsen MD LAB POCT ORDERABLES - DEVICE Final Result Performing Organization Address City/[facility]/ZIP Co de Phone Number [facility] [place] [address] * (ABNORMAL) POCT glucose (11/30/2024 7:37 AM ENGINE DESIGNER) Glucose, POC 220(H) 70 - 199 mg/dL Blood 11/30/2024 7:37 AM ENGINE DESIGNER 11/30/2024 7:37 AM ENGINE DESIGNER Hesham Madsen MD LAB POCT ORDERABLES - DEVICE Final Result Performing Organization Address City/[facility]/ZIP Co de Phone Number [facility] [place] [address] * (ABNORMAL) POCT glucose (11/30/2024 2:12 AM ENGINE DESIGNER) Glucose, POC 227(H) 70 - 199 mg/dL Blood 11/30/2024 2:12 AM ENGINE DESIGNER 11/30/2024 2:12 AM ENGINE DESIGNER Hesham Madsne MD LAB POCT ORDERABLES - DEVICE Final Result Performing Organization Address [facility] Co de Phone Number ALLY [facility] Department [place] [address] * eGFR (11/30/2024 12:02 AM ENGINE DESIGNER) eGFR >90 >=60 mL/min/1. 73 m2 Comment: [...] reviewed 2021. Blood 11/30/2024 12:0 2 AM ENGINE DESIGNER 11/30/2024 12:30 AM ENGINE DESIGNER Hesham Madsen MD LAB BLOOD ORDERABLES Final R esult Performing Organization Address City/[facility]/ZIP Co de Phone Number ALLY [facility] [place] [address] * (ABNORMAL) Basic metabolic panel (11/30/2024 12:02 AM ENGINE DESIGNER) Sodium 143 135 - 145 mmol/L Potassium, pl 4.4 3.3 - 4.9 mmol/L [facility] Comment:Repeated and Verifie d Chloride 101 97 - 110 mmol/L [facility] CO2 36(H) 22 - 32 mmol/L [facility] Anion gap 6 2 - 15 mmol/L [facility] BUN 23 6 - 25 mg/dL [facility] Creatinine 0.47(L) 0.60 - 1.10 mg/dL [facility] Glucose 171 70 - 199 mg/dL [facility] Comment: Interpretive Data Fasting glucose >/= 126 [...] 2022. Calcium 9.1 8.5 - 10.3 mg/dL [facility] Comment:Reviewed Blood 11/30/2024 12:0 2 AM ENGINE DESIGNER 11/30/2024 12:30 AM ENGINE DESIGNER Hesham Madsen MD LAB BLOOD ORDERABLES Final R esult Performing Organization Address City/[facility] Co de Phone Number [facility] [place] [address] * (ABNORMAL) POCT glucose (11/29/2024 9:58 PM ENGINE DESIGNER) [facility] Signature Glucose, POC 207(H) 70 - 199 mg/dL Blood 11/29/2024 9:58 PM ENGINE DESIGNER 11/29/2024 9:58 PM ENGINE DESIGNER us Hesham Madsen MD LAB POCT ORDERABLES - DEVICE Final Result Performing Organization Address [facility] Co de Phone Number [facility] Department [place] [address] * eGFR (11/29/2024 8:56 PM ENGINE DESIGNER) [facility] eGFR See Comment >=60 Comment: Interpretive Data [...] last reviewed 2021. Blood 11/29/2024 8:56 PM ENGINE DESIGNER 11/29/2024 9:58 PM ENGINE DESIGNER Manisha Williamson NP LAB BLOOD ORDERABLES Edited Result - Final [facility] Department [place] [address] * (ABNORMAL) Differential, auto (11/29/2024 8:56 PM ENGINE DESIGNER) [facility] Neutrophil abs 7.2(H) 1.5 - 6.5 K/cumm Imm gran abs 0.2(H) 0.0 - 0.1 K/cumm [facility] Lymphocyte abs 2.1 0.8 - 3.3 K/cumm [facility] Monocyte abs 0.7 0.2 - 0.8 K/cumm [facility] Eosinophil abs 0.0 0.0 - 0.5 K/cumm [facility] Basophil abs 0.0 0.0 - 0.1 K/cumm [facility] Neutrophil pct 70.6 % [facility] Comment: Interpretive Data Percent cell count reference ranges are not reported, since discordance with absolute values may lead to misinterpretation of CBC data. Current Interpretive Data was last revised on 2018. Imm gran pct 1.8 % [facility] Comment: Interpretive Data Percent cell count reference ranges are not reported, since discordance with absolute values may lead to misinterpretation of CBC data. Current Interpretive Data was last revised on 2018. Lymphocyte pct 20.4 % [facility] Comment: Interpretive Data Percent cell count reference ranges are not reported, since discordance with absolute values may lead to misinterpretation of CBC data. Current Interpretive Data was last revised on 2018. Monocyte pct 6.7 % [facility] Comment: Interpretive Data Percent cell count reference ranges are not reported, since discordance with absolute values may lead to misinterpretation of CBC data. Current Interpretive Data was last revised on 2018. Eosinophil pct 0.4 % [facility] Comment: Interpretive Data Percent cell count reference ranges are not reported, since discordance with absolute values may lead to misinterpretation of CBC data. Current Interpretive Data was last revised on 2018. Basophil pct 0.1 % [facility] Comment: Interpretive Data Percent cell count reference ranges are not reported, since discordance with absolute values may lead to misinterpretation of CBC data. Current Interpretive Data was last revised on 2018. Blood 11/29/2024 8:56 PM ENGINE DESIGNER 11/29/2024 9:45 PM ENGINE DESIGNER Manisha Williamson NP LAB BLOOD ORDERABLES Final Result ALLY WOODARD [facility] Department [place] [address] * Critical Result Callback Chemistry (11/29/2024 8:56 PM ENGINE DESIGNER) Date Notified [id number] Time Notified 2333 ALLY WOODARD TestName Potassium, Calcium ALLY STEWART Called/Read Back Kingston WOODARD Credentials RN ALLY STEWART Called By CHASITY WOODARD Blood 11/29/2024 8:56 PM ENGINE DESIGNER 11/29/2024 9:58 PM ENGINE DESIGNER Manisha Williamson NP LAB BLOOD ORDERABLES Final Result Performing Organization Address [facility] Co de Phone Number [facility] Department [place] [address] * (ABNORMAL) CBC with auto differential (11/29/2024 8:56 PM ENGINE DESIGNER) [facility] WBC 10.2(H) 3.8 - 9.9 K/cumm Hgb 9.2(L) 11.9 - 15.5 g/dL [facility] Hct 33.3(L) 35.6 - 45.5 % [facility] Plt 370 150 - 400 K/cumm [facility] MPV 10.7 9.1 - 12.3 fL [facility] RBC 4.03 3.90 - 5.20 M/cumm [facility] MCV 82.6 81.3 - 96.4 fL [facility] MCH 22.8(L) 27.1 - 33.3 pg [facility] MCHC 27.6(L) 32.3 - 35.7 g/dL [facility] RDW CV 22.9(H) 11.1 - 14.9 % [facility] RDW SD 67.7(H) 35.7 - 48.1 fL [facility] NRBC abs 0.04(H) 0.00 - 0.01 K/cumm [facility] Blood 11/29/2024 8:56 PM ENGINE DESIGNER 11/29/2024 9:45 PM ENGINE DESIGNER Manisha Williamson NP LAB BLOOD ORDERABLES Final Result [facility] [place] [address] * (ABNORMAL) Protime-INR (11/29/2024 8:56 PM ENGINE DESIGNER) PT 28.0(H) 9.7 - 13.0 sec INR 2.54(H) 0.90 - 1.20 [facility] Comment: Interpretive data Oral anticoagulant therapeutic ranges: Venous thromboembolism prophylaxis or treatment: 2.0-3.0 CARDIOLOGY Standard range: 2.0-3.0 High-intensity range: 2.5-3.5 Refer to indication-specific guidelines for appropriate target ranges for prosthetic heart valve replacement. Current interpretive data was last revised on 2019. Blood 11/29/2024 8:56 PM ENGINE DESIGNER 11/29/2024 9:45 PM ENGINE DESIGNER us Hesham Madsen MD LAB BLOOD ORDERABLES Final R esult [facility] Department [place] [address] * Basic metabolic panel (11/29/2024 8:56 PM ENGINE DESIGNER) Pathologist [facility] Sodium See Comment 135 - 145 mmol/L Comment:Credited: Sample inv estigated and is suggestive of an improper collection (e.g., IV fluid contamination, improper tube type). Deleted at the Request of Kingston Fulton RN on 11/29/2024 23:33:56 ENGINE DESIGNER by . Potassium, pl See Comment 3.3 - 4.9 mmol/L [facility] Comment: Hemolyzed; Potassium value may be falsely elevated by as much as 0.3-0.5 mmol/L. Suggest redraw and reanalysis. Credited: Sample investigated and is suggestive of an improper collection (e.g., IV fluid contamination, improper tube type). Deleted at the Request of Kingston Fulton RN on 11/29/2024 23:33:56 ENGINE DESIGNER by RV . Chloride See Comment 97 - 110 mmol/L [facility] Comment:Credited: Sample inv estigated and is suggestive of an improper collection (e.g., IV fluid contamination, improper tube type). Deleted at the Request of Kingston Fulton RN on 11/29/2024 23:33:56 ENGINE DESIGNER by RV . CO2 See Comment 22 - 32 mmol/L [facility] Comment:Credited: Sample inv estigated and is suggestive of an improper collection (e.g., IV fluid contamination, improper tube type). Deleted at the Request of Kingston Fulton RN on 11/29/2024 23:33:56 ENGINE DESIGNER by RV . Anion gap See Comment 2 - 15 mmol/L [facility] Comment:Credited: Sample inv estigated and is suggestive of an improper collection (e.g., IV fluid contamination, improper tube type). Deleted at the Request of Kingston Fulton RN on 11/29/2024 23:33:56 ENGINE DESIGNER by RV . BUN See Comment 6 - 25 mg/dL [facility] Comment:Credited: Sample inv estigated and is suggestive of an improper collection (e.g., IV fluid contamination, improper tube type). Deleted at the Request of Kingston Fulton RN on 11/29/2024 23:33:56 ENGINE DESIGNER by RV . Creatinine See Comment 0.60 - 1.10 mg/dL [facility] Comment:Credited: Sample inv estigated and is suggestive of an improper collection (e.g., IV fluid contamination, improper tube type). Deleted at the Request of Kingston Fulton RN on 11/29/2024 23:33:56 ENGINE DESIGNER by RV . Glucose See Comment 70 - 199 mg/dL [facility] Comment: Credited: Sample investigated and is suggestive of an improper collection (e.g., IV fluid contamination, improper tube type). Deleted at the Request of Kingston Fulton RN on 11/29/2024 23:33:56 ENGINE DESIGNER by RV . Interpretive Data Fasting glucose [...] See Comment 8.5 - 10.3 mg/dL [facility] Comment:Credited: Sample inv estigated and is suggestive of an improper collection (e.g., IV fluid contamination, improper tube type). Deleted at the Request of Kingston Fulton RN on 11/29/2024 23:33:56 ENGINE DESIGNER by RV . Blood 11/29/2024 8:56 PM ENGINE DESIGNER 11/29/2024 9:45 PM ENGINE DESIGNER Manisha Williamson NP LAB BLOOD ORDERABLES Edited Result - Final Performing Organization Address [facility] Co de Phone Number [facility] [place] [address] * POCT glucose (11/29/2024 7:29 PM ENGINE DESIGNER) Glucose, POC 182 70 - 199 mg/dL Blood 11/29/2024 7:29 PM ENGINE DESIGNER 11/29/2024 7:29 PM ENGINE DESIGNER Hesham Madsen MD LAB POCT ORDERABLES - DEVICE Final Result Performing Organization Address [facility] Co de Phone Number [facility] [place] [address] * POCT glucose (11/29/2024 5:12 PM ENGINE DESIGNER) Glucose, POC 128 70 - 199 mg/dL Blood 11/29/2024 5:12 PM ENGINE DESIGNER 11/29/2024 5:12 PM ENGINE DESIGNER Hesham Madsen MD LAB POCT ORDERABLES - DEVICE Final Result Performing Organization Address [facility] Co de Phone Number [facility] [place] [address] * POCT glucose (11/29/2024 11:17 AM ENGINE DESIGNER) Glucose, POC 189 70 - 199 mg/dL Blood 11/29/2024 11:1 7 AM ENGINE DESIGNER 11/29/2024 11:17 AM ENGINE DESIGNER us Hesham Madsen MD LAB POCT ORDERABLES - DEVICE Final Result Performing Organization Address [facility] de Phone Number [facility] [place] [address] * POCT glucose (11/29/2024 7:42 AM ENGINE DESIGNER) Glucose, POC 149 70 - 199 mg/dL Blood 11/29/2024 7:42 AM ENGINE DESIGNER 11/29/2024 7:42 AM ENGINE DESIGNER Result [facility] us Hesham Madsen MD LAB POCT ORDERABLES - DEVICE Final Result Performing Organization Address [facility] de Phone Number [facility] [place] [address] * POCT glucose (11/29/2024 2:07 AM ENGINE DESIGNER) Glucose, POC 163 70 - 199 mg/dL Blood 11/29/2024 2:07 AM ENGINE DESIGNER 11/29/2024 2:07 AM ENGINE DESIGNER Result [facility] us Hesham Madsen MD LAB POCT ORDERABLES - DEVICE Final Result Performing Organization Address [facility] [place] [address] * (ABNORMAL) POCT glucose (11/29/2024 12:02 AM ENGINE DESIGNER) Glucose, POC 202(H) 70 - 199 mg/dL Blood 11/29/2024 12:0 2 AM ENGINE DESIGNER 11/29/2024 12:02 AM ENGINE DESIGNER Result [facility] us Hesham Madsen MD LAB POCT ORDERABLES - DEVICE Final Result Performing Organization Address [facility] Co de Phone Number [facility] [place] [address] * eGFR (11/28/2024 9:54 PM ENGINE DESIGNER) eGFR >90 >=60 mL/min/1. 73 m2 Comment: [...] last reviewed 2021. Blood 11/28/2024 9:54 PM ENGINE DESIGNER 11/28/2024 10:52 PM ENGINE DESIGNER Manisha Williamson NP LAB BLOOD ORDERABLES Final Result Performing Organization Address [facility] Co de Phone Number [facility] [place] [address] * (ABNORMAL) Differential, auto (11/28/2024 9:54 PM ENGINE DESIGNER) Neutrophil abs 6.3 1.5 - 6.5 K/cumm Imm gran abs 0.2(H) 0.0 - 0.1 K/cumm [facility] Lymphocyte abs 1.1 0.8 - 3.3 K/cumm [facility] Monocyte abs 0.5 0.2 - 0.8 K/cumm [facility] Eosinophil abs 0.0 0.0 - 0.5 K/cumm [facility] Basophil abs 0.0 0.0 - 0.1 K/cumm [facility] Neutrophil pct 78.3 % [facility] Comment: Interpretive Data Percent cell count reference ranges are not reported, since discordance with absolute values may lead to misinterpretation of CBC data. Current Interpretive Data was last revised on 2018. Imm gran pct 2.0 % [facility] Comment: Interpretive Data Percent cell count reference ranges are not reported, since discordance with absolute values may lead to misinterpretation of CBC data. Current Interpretive Data was last revised on 2018. Lymphocyte pct 13.6 % [facility] Comment: Interpretive Data Percent cell count reference ranges are not reported, since discordance with absolute values may lead to misinterpretation of CBC data. Current Interpretive Data was last revised on 2018. Monocyte pct 5.8 % [facility] Comment: Interpretive Data Percent cell count reference ranges are not reported, since discordance with absolute values may lead to misinterpretation of CBC data. Current Interpretive Data was last revised on 2018. Eosinophil pct 0.2 % [facility] Comment: Interpretive Data Percent cell count reference ranges are not reported, since discordance with absolute values may lead to misinterpretation of CBC data. Current Interpretive Data was last revised on 2018. Basophil pct 0.1 % [facility] Comment: Interpretive Data Percent cell count reference ranges are not reported, since discordance with absolute values may lead to misinterpretation of CBC data. Current Interpretive Data was last revised on 2018. Blood 11/28/2024 9:54 PM ENGINE DESIGNER 11/28/2024 10:53 PM ENGINE DESIGNER Manisha Williamson NP LAB BLOOD ORDERABLES Final Result ALLY YAMILET [facility] Department [place] [address] * (ABNORMAL) CBC with auto differential (11/28/2024 9:54 PM ENGINE DESIGNER) WBC 8.1 3.8 - 9.9 K/cumm Hgb 8.7(L) 11.9 - 15.5 g/dL [facility] Hct 31.5(L) 35.6 - 45.5 % [facility] Plt 360 150 - 400 K/cumm [facility] MPV 10.9 9.1 - 12.3 fL [facility] RBC 3.84(L) 3.90 - 5.20 M/cumm [facility] MCV 82.0 81.3 - 96.4 fL [facility] MCH 22.7(L) 27.1 - 33.3 pg [facility] MCHC 27.6(L) 32.3 - 35.7 g/dL [facility] RDW CV 22.9(H) 11.1 - 14.9 % [facility] RDW SD 67.8(H) 35.7 - 48.1 fL [facility] NRBC abs 0.04(H) 0.00 - 0.01 K/cumm [facility] Blood 11/28/2024 9:54 PM ENGINE DESIGNER 11/28/2024 10:53 PM ENGINE DESIGNER Manisha Williamson NP LAB BLOOD ORDERABLES Final Result [facility] Department [place] [address] * (ABNORMAL) Protime-INR (11/28/2024 9:54 PM ENGINE DESIGNER) PT 33.7(H) 9.7 - 13.0 sec INR 3.05(H) 0.90 - 1.20 [facility] Comment: Interpretive data Oral anticoagulant therapeutic ranges: Venous thromboembolism prophylaxis or treatment: 2.0-3.0 CARDIOLOGY Standard range: 2.0-3.0 High-intensity range: 2.5-3.5 Refer to indication-specific guidelines for appropriate target ranges for prosthetic heart valve replacement. Current interpretive data was last revised on 2019. Blood 11/28/2024 9:54 PM ENGINE DESIGNER 11/28/2024 11:04 PM ENGINE DESIGNER Hesham Madsen MD LAB BLOOD ORDERABLES Final R esult [facility] Department [place] [address] * (ABNORMAL) Basic metabolic panel (11/28/2024 9:54 PM ENGINE DESIGNER) [facility] Sodium 141 135 - 145 mmol/L Potassium, pl 3.4 3.3 - 4.9 mmol/L [facility] Chloride 99 97 - 110 mmol/L [facility] CO2 33(H) 22 - 32 mmol/L [facility] Anion gap 9 2 - 15 mmol/L [facility] BUN 20 6 - 25 mg/dL [facility] Creatinine 0.45(L) 0.60 - 1.10 mg/dL [facility] Glucose 282(H) 70 - 199 mg/dL [facility] Comment: Interpretive Data Fasting glucose >/= 126 [...] 2022. Calcium 8.4(L) 8.5 - 10.3 mg/dL [facility] Blood 11/28/2024 9:54 PM ENGINE DESIGNER 11/28/2024 10:52 PM ENGINE DESIGNER Manisha Williamson NP LAB BLOOD ORDERABLES Final Result [facility] [place] [address] * (ABNORMAL) POCT glucose (11/28/2024 7:26 PM ENGINE DESIGNER) Glucose, POC 319(H) 70 - 199 mg/dL Blood 11/28/2024 7:26 PM ENGINE DESIGNER 11/28/2024 7:26 PM ENGINE DESIGNER Hesham Madsen MD LAB POCT ORDERABLES - DEVICE Final Result Performing Organization Address [facility] Co de Phone Number [facility] [place] [address] * POCT glucose (11/28/2024 6:16 PM ENGINE DESIGNER) Glucose, POC 115 70 - 199 mg/dL Blood 11/28/2024 6:16 PM ENGINE DESIGNER 11/28/2024 6:16 PM ENGINE DESIGNER Result [facility] Hesham Madsen MD LAB POCT ORDERABLES - DEVICE Final Result Performing Organization Address [facility] Co de Phone Number [facility] [place] [address] * POCT glucose (11/28/2024 5:01 PM ENGINE DESIGNER) Glucose, POC 70 70 - 199 mg/dL Blood 11/28/2024 5:01 PM ENGINE DESIGNER 11/28/2024 5:01 PM ENGINE DESIGNER Result [facility] Hesham Madsen MD LAB POCT ORDERABLES - DEVICE Final Result Performing Organization Address City/[facility] de Phone Number [facility] [place] [address] * (ABNORMAL) POCT glucose (11/28/2024 11:19 AM ENGINE DESIGNER) Glucose, POC 280(H) 70 - 199 mg/dL Comment:Glu2: RN/ Notified Glucose comment 1 Glu2: RN/MD Notified [facility] Blood 11/28/2024 11:1 9 AM ENGINE DESIGNER 11/28/2024 11:19 AM ENGINE DESIGNER Hesham Madsen MD LAB POCT ORDERABLES - DEVICE Final Result Performing Organization Address [facility] de Phone Number [facility] [place] [address] * (ABNORMAL) POCT glucose (11/28/2024 7:20 AM ENGINE DESIGNER) Glucose, POC 247(H) 70 - 199 mg/dL Comment:Glu2: RN/MD Notified Glucose comment 1 Glu2: RN/MD Notified [facility] Blood 11/28/2024 7:20 AM ENGINE DESIGNER 11/28/2024 7:20 AM ENGINE DESIGNER us Hesham Madsen MD LAB POCT ORDERABLES - DEVICE Final Result Performing Organization Address [facility] de Phone Number [facility] [place] [address] * (ABNORMAL) POCT glucose (11/28/2024 2:02 AM ENGINE DESIGNER) Glucose, POC 303(H) 70 - 199 mg/dL Blood 11/28/2024 2:02 AM ENGINE DESIGNER 11/28/2024 2:02 AM ENGINE DESIGNER Hesham Madsen MD LAB POCT ORDERABLES - DEVICE Final Result Performing Organization Address [facility] de Phone Number [facility] [place] [address] * POCT glucose (11/27/2024 10:58 PM ENGINE DESIGNER) Glucose, POC 150 70 - 199 mg/dL Blood 11/27/2024 10:5 8 PM ENGINE DESIGNER 11/27/2024 10:58 PM ENGINE DESIGNER Hesham Madsen MD LAB POCT ORDERABLES - DEVICE Final Result Performing Organization Address [facility] Co de Phone Number [facility] [place] [address] * eGFR (11/27/2024 9:47 PM ENGINE DESIGNER) [facility] eGFR >90 >=60 mL/min/1. 73 m2 Comment: [...] last reviewed 2021. Blood 11/27/2024 9:47 PM ENGINE DESIGNER 11/27/2024 10:39 PM ENGINE DESIGNER Manisha Williamson NP LAB BLOOD ORDERABLES Final Result Performing Organization Address City/[facility] Co de Phone Number [facility] Department [place] [address] * Differential, auto (11/27/2024 9:47 PM ENGINE DESIGNER) Pathologist [facility] Neutrophil abs 5.9 1.5 - 6.5 K/cumm Imm gran abs 0.1 0.0 - 0.1 K/cumm [facility] Lymphocyte abs 1.3 0.8 - 3.3 K/cumm [facility] Monocyte abs 0.7 0.2 - 0.8 K/cumm [facility] Eosinophil abs 0.0 0.0 - 0.5 K/cumm [facility] Basophil abs 0.0 0.0 - 0.1 K/cumm [facility] Neutrophil pct 73.6 % [facility] Comment: Interpretive Data Percent cell count reference ranges are not reported, since discordance with absolute values may lead to misinterpretation of CBC data. Current Interpretive Data was last revised on 2018. Imm gran pct 1.5 % [facility] Comment: Interpretive Data Percent cell count reference ranges are not reported, since discordance with absolute values may lead to misinterpretation of CBC data. Current Interpretive Data was last revised on 2018. Lymphocyte pct 16.2 % [facility] Comment: Interpretive Data Percent cell count reference ranges are not reported, since discordance with absolute values may lead to misinterpretation of CBC data. Current Interpretive Data was last revised on 2018. Monocyte pct 8.2 % [facility] Comment: Interpretive Data Percent cell count reference ranges are not reported, since discordance with absolute values may lead to misinterpretation of CBC data. Current Interpretive Data was last revised on 2018. Eosinophil pct 0.4 % [facility] Comment: Interpretive Data Percent cell count reference ranges are not reported, since discordance with absolute values may lead to misinterpretation of CBC data. Current Interpretive Data was last revised on 2018. Basophil pct 0.1 % [facility] Comment: Interpretive Data Percent cell count reference ranges are not reported, since discordance with absolute values may lead to misinterpretation of CBC data. Current Interpretive Data was last revised on 2018. Blood 11/27/2024 9:47 PM ENGINE DESIGNER 11/27/2024 10:05 PM ENGINE DESIGNER Manisha Williamson NP LAB BLOOD ORDERABLES Final Result [facility] Department [place] [address] * (ABNORMAL) CBC with auto differential (11/27/2024 9:47 PM ENGINE DESIGNER) Pathologist [facility] WBC 8.1 3.8 - 9.9 K/cumm Hgb 8.4(L) 11.9 - 15.5 g/dL [facility] Hct 31.0(L) 35.6 - 45.5 % [facility] Plt 343 150 - 400 K/cumm [facility] MPV 10.4 9.1 - 12.3 fL [facility] RBC 3.73(L) 3.90 - 5.20 M/cumm [facility] MCV 83.1 81.3 - 96.4 fL [facility] MCH 22.5(L) 27.1 - 33.3 pg [facility] MCHC 27.1(L) 32.3 - 35.7 g/dL [facility] RDW CV 23.2(H) 11.1 - 14.9 % [facility] RDW SD 69.7(H) 35.7 - 48.1 fL [facility] NRBC abs 0.03(H) 0.00 - 0.01 K/cumm [facility] Blood 11/27/2024 9:47 PM ENGINE DESIGNER 11/27/2024 10:05 PM ENGINE DESIGNER Manisha Williamson NP LAB BLOOD ORDERABLES Final Result [facility] Department [place] [address] * (ABNORMAL) Protime-INR (11/27/2024 9:47 PM ENGINE DESIGNER) Pathologist [facility] PT 34.7(H) 9.7 - 13.0 sec INR 3.14(H) 0.90 - 1.20 [facility] Comment: Interpretive data Oral anticoagulant therapeutic ranges: Venous thromboembolism prophylaxis or treatment: 2.0-3.0 CARDIOLOGY Standard range: 2.0-3.0 High-intensity range: 2.5-3.5 Refer to indication-specific guidelines for appropriate target ranges for prosthetic heart valve replacement. Current interpretive data was last revised on 2019. Blood 11/27/2024 9:47 PM ENGINE DESIGNER 11/27/2024 10:15 PM ENGINE DESIGNER us Hesham Madsen MD LAB BLOOD ORDERABLES Final R esult [facility] Department [place] [address] * (ABNORMAL) Basic metabolic panel (11/27/2024 9:47 PM ENGINE DESIGNER) Sodium 144 135 - 145 mmol/L Potassium, pl 4.4 3.3 - 4.9 mmol/L [facility] Comment:Hemolyzed; Potassium value may be falsely elevated by as much as 0.6-1.0 mmol/L. Suggest redraw and reanalysis. Chloride 101 97 - 110 mmol/L [facility] CO2 35(H) 22 - 32 mmol/L [facility] Anion gap 8 2 - 15 mmol/L [facility] BUN 22 6 - 25 mg/dL [facility] Creatinine 0.44(L) 0.60 - 1.10 mg/dL [facility] Glucose 156 70 - 199 mg/dL [facility] Comment: Interpretive Data Fasting glucose >/= 126 [...] 2022. Calcium 9.0 8.5 - 10.3 mg/dL [facility] Blood 11/27/2024 9:47 PM ENGINE DESIGNER 11/27/2024 10:39 PM ENGINE DESIGNER us Manisha Williamson NP LAB BLO[place] [address] * (ABNORMAL) POCT glucose (11/27/2024 8:31 PM ENGINE DESIGNER) Glucose, POC 219(H) 70 - 199 mg/dL Blood 11/27/2024 8:31 PM ENGINE DESIGNER 11/27/2024 8:31 PM ENGINE DESIGNER Hesham Madsen MD LAB POCT ORDERABLES - DEVICE Final Result Performing Organization Address City/[facility]/[place] [address] * POCT glucose (11/27/2024 4:59 PM ENGINE DESIGNER) Glucose, POC 96 70 - 199 mg/dL Blood 11/27/2024 4:59 PM ENGINE DESIGNER 11/27/2024 4:59 PM ENGINE DESIGNER Hesham Madsen MD LAB POCT ORDERABLES - DEVICE Final Result Performing Organization Address [facility] [place] [address] * (ABNORMAL) POCT glucose (11/27/2024 11:42 AM ENGINE DESIGNER) Glucose, POC 246(H) 70 - 199 mg/dL Comment:Glu2: RN/MD Notified Glucose comment 1 Glu2: RN/MD Notified [facility] Blood 11/27/2024 11:4 2 AM ENGINE DESIGNER 11/27/2024 11:42 AM ENGINE DESIGNER Hesham Madsen MD LAB POCT ORDERABLES - DEVICE Final Result Performing Organization Address City/[facility]/[place] [address] * (ABNORMAL) POCT glucose (11/27/2024 7:21 AM ENGINE DESIGNER) Glucose, POC 238(H) 70 - 199 mg/dL Comment:Glu2: RN/MD Notified Glucose comment 1 Glu2: RN/MD Notified [facility] Blood 11/27/2024 7:21 AM ENGINE DESIGNER 11/27/2024 7:21 AM ENGINE DESIGNER Hesham Madsen MD LAB POCT ORDERABLES - DEVICE Final Result Performing Organization Address City/[facility] Co de Phone Number [facility] [place] [address] * (ABNORMAL) POCT glucose (11/27/2024 4:10 AM ENGINE DESIGNER) Glucose, POC 263(H) 70 - 199 mg/dL Blood 11/27/2024 4:10 AM ENGINE DESIGNER 11/27/2024 4:10 AM ENGINE DESIGNER Hesham Madsen MD LAB POCT ORDERABLES - DEVICE Final Result Performing Organization Address City/[facility] Co de Phone Number [facility] [place] [address] * POCT glucose (11/26/2024 11:38 PM ENGINE DESIGNER) Glucose, POC 84 70 - 199 mg/dL Blood 11/26/2024 11:3 8 PM ENGINE DESIGNER 11/26/2024 11:38 PM ENGINE DESIGNER Hesham Madsen MD LAB POCT ORDERABLES - DEVICE Final Result Performing Organization Address City/[facility] Co de Phone Number [facility] [place] [address] * eGFR (11/26/2024 9:00 PM ENGINE DESIGNER) eGFR >90 >=60 mL/min/1. 73 m2 Comment: [...] last reviewed 2021. Blood 11/26/2024 9:00 PM ENGINE DESIGNER 11/26/2024 9:50 PM ENGINE DESIGNER Manisha Williamson NP LAB BLOOD ORDERABLES Final Result [facility] [place] [address] * (ABNORMAL) Differential, auto (11/26/2024 9:00 PM ENGINE DESIGNER) Pathologist [facility] Neutrophil abs 7.8(H) 1.5 - 6.5 K/cumm Imm gran abs 0.1 0.0 - 0.1 K/cumm [facility] Lymphocyte abs 1.0 0.8 - 3.3 K/cumm [facility] Monocyte abs 0.7 0.2 - 0.8 K/cumm [facility] Eosinophil abs 0.0 0.0 - 0.5 K/cumm [facility] Basophil abs 0.0 0.0 - 0.1 K/cumm [facility] Neutrophil pct 81.0 % [facility] Comment: Interpretive Data Percent cell count reference ranges are not reported, since discordance with absolute values may lead to misinterpretation of CBC data. Current Interpretive Data was last revised on 2018. Imm gran pct 1.1 % [facility] Comment: Interpretive Data Percent cell count reference ranges are not reported, since discordance with absolute values may lead to misinterpretation of CBC data. Current Interpretive Data was last revised on 2018. Lymphocyte pct 10.8 % [facility] Comment: Interpretive Data Percent cell count reference ranges are not reported, since discordance with absolute values may lead to misinterpretation of CBC data. Current Interpretive Data was last revised on 2018. Monocyte pct 7.0 % [facility] Comment: Interpretive Data Percent cell count reference ranges are not reported, since discordance with absolute values may lead to misinterpretation of CBC data. Current Interpretive Data was last revised on 2018. Eosinophil pct 0.1 % [facility] Comment: Interpretive Data Percent cell count reference ranges are not reported, since discordance with absolute values may lead to misinterpretation of CBC data. Current Interpretive Data was last revised on 2018. Basophil pct 0.0 % [facility] Comment: Interpretive Data Percent cell count reference ranges are not reported, since discordance with absolute values may lead to misinterpretation of CBC data. Current Interpretive Data was last revised on 2018. Blood 11/26/2024 9:00 PM ENGINE DESIGNER 11/26/2024 9:46 PM ENGINE DESIGNER Manisha Williamson NP LAB BLOOD ORDERABLES Final Result [facility] [place] [address] * (ABNORMAL) CBC with auto differential (11/26/2024 9:00 PM ENGINE DESIGNER) WBC 9.6 3.8 - 9.9 K/cumm Hgb 9.6(L) 11.9 - 15.5 g/dL [facility] Hct 36.4 35.6 - 45.5 % [facility] Plt 450(H) 150 - 400 K/cumm [facility] MPV 10.8 9.1 - 12.3 fL [facility] RBC 4.31 3.90 - 5.20 M/cumm [facility] MCV 84.5 81.3 - 96.4 fL [facility] MCH 22.3(L) 27.1 - 33.3 pg [facility] MCHC 26.4(L) 32.3 - 35.7 g/dL [facility] RDW CV 23.5(H) 11.1 - 14.9 % [facility] RDW SD 71.5(H) 35.7 - 48.1 fL [facility] NRBC abs 0.02(H) 0.00 - 0.01 K/cumm [facility] Blood 11/26/2024 9:00 PM ENGINE DESIGNER 11/26/2024 9:46 PM ENGINE DESIGNER us Manisha Williamson NP LAB BLOOD ORDERABLES Final Result Performing Organization Address [facility] de Phone Number [facility] [place] [address] * (ABNORMAL) Protime-INR (11/26/2024 9:00 PM ENGINE DESIGNER) PT 30.8(H) 9.7 - 13.0 sec INR 2.79(H) 0.90 - 1.20 [facility] Comment: Interpretive data Oral anticoagulant therapeutic ranges: Venous thromboembolism prophylaxis or treatment: 2.0-3.0 CARDIOLOGY Standard range: 2.0-3.0 High-intensity range: 2.5-3.5 Refer to indication-specific guidelines for appropriate target ranges for prosthetic heart valve replacement. Current interpretive data was last revised on 2019. Blood 11/26/2024 9:00 PM ENGINE DESIGNER 11/26/2024 9:50 PM ENGINE DESIGNER Hesham Madsen MD LAB BLOOD ORDERABLES Final R esult Performing Organization Address [facility] Co de Phone Number [facility] [place] [address] * (ABNORMAL) Basic metabolic panel (11/26/2024 9:00 PM ENGINE DESIGNER) Pathologist [facility] Sodium 146(H) 135 - 145 mmol/L Potassium, pl 4.7 3.3 - 4.9 mmol/L [facility] Chloride 101 97 - 110 mmol/L [facility] CO2 37(H) 22 - 32 mmol/L [facility] Anion gap 8 2 - 15 mmol/L [facility] BUN 24 6 - 25 mg/dL [facility] Creatinine 0.55(L) 0.60 - 1.10 mg/dL [facility] Glucose 156 70 - 199 mg/dL [facility] Comment: Interpretive Data Fasting glucose >/= 126 [...] 2022. Calcium 8.8 8.5 - 10.3 mg/dL [facility] Blood 11/26/2024 9:00 PM ENGINE DESIGNER 11/26/2024 9:50 PM ENGINE DESIGNER us Manisha Williamson NP LAB BLOOD ORDERABLES Final Result [facility] Department [place] [address] * (ABNORMAL) POCT glucose (11/26/2024 8:11 PM ENGINE DESIGNER) Pathologist [facility] Glucose, POC 232(H) 70 - 199 mg/dL Blood 11/26/2024 8:11 PM ENGINE DESIGNER 11/26/2024 8:11 PM ENGINE DESIGNER Hesham Madsen MD LAB POCT ORDERABLES - DEVICE Final Result Performing Organization Address [facility] [place] [address] * POCT glucose (11/26/2024 4:58 PM ENGINE DESIGNER) Glucose, POC 144 70 - 199 mg/dL Blood 11/26/2024 4:58 PM ENGINE DESIGNER 11/26/2024 4:58 PM ENGINE DESIGNER Hesham Madsen MD LAB POCT ORDERABLES - DEVICE Final Result Performing Organization Address [facility] [place] [address] * (ABNORMAL) POCT glucose (11/26/2024 11:50 AM ENGINE DESIGNER) Glucose, POC 273(H) 70 - 199 mg/dL Blood 11/26/2024 11:5 0 AM ENGINE DESIGNER 11/26/2024 11:50 AM ENGINE DESIGNER Hesham Madsen MD LAB POCT ORDERABLES - DEVICE Final Result Performing Organization Address [facility] Co de Phone Number [facility] [place] [address] * (ABNORMAL) POCT glucose (11/26/2024 9:56 AM ENGINE DESIGNER) Glucose, POC 305(H) 70 - 199 mg/dL Blood 11/26/2024 9:56 AM ENGINE DESIGNER 11/26/2024 9:56 AM ENGINE DESIGNER Hesham Madsen MD LAB POCT ORDERABLES - DEVICE Final Result Performing Organization Address City/[facility] Co de Phone Number [facility] [place] [address] * (ABNORMAL) POCT glucose (11/26/2024 8:08 AM ENGINE DESIGNER) Glucose, POC 381(H) 70 - 199 mg/dL Blood 11/26/2024 8:08 AM ENGINE DESIGNER 11/26/2024 8:08 AM ENGINE DESIGNER Hesham Madsen MD LAB POCT ORDERABLES - DEVICE Final Result Performing Organization Address [facility] de Phone Number [facility] [place] [address] * POCT glucose (11/26/2024 4:08 AM ENGINE DESIGNER) Glucose, POC 164 70 - 199 mg/dL Blood 11/26/2024 4:08 AM ENGINE DESIGNER 11/26/2024 4:08 AM ENGINE DESIGNER Hesham Madsen MD LAB POCT ORDERABLES - DEVICE Final Result Performing Organization Address [facility] de Phone Number [facility] [place] [address] * (ABNORMAL) POCT glucose (11/26/2024 12:28 AM ENGINE DESIGNER) Glucose, POC 223(H) 70 - 199 mg/dL Blood 11/26/2024 12:2 8 AM ENGINE DESIGNER 11/26/2024 12:28 AM ENGINE DESIGNER Hesham Madsen MD LAB POCT ORDERABLES - DEVICE Final Result Performing Organization Address [facility] de Phone Number [facility] [place] [address] * (ABNORMAL) Urinalysis reflex to microscopic and culture Urine (11/26/2024 12:16 AM ENGINE DESIGNER) Color, ur Yellow Yellow Clarity, ur Clear Clear [facility] Specific gravity, ur 1.030 1.003 - 1.030 [facility] pH, urine 6.5 [facility] Comment: Interpretive Data U rine pH is affected by diet, medications, systemic acid-base disturbances, and renal tubular function. pH may affect urinary stone formation. For example, urine pH below 6.0 may help reduce the tendency for calcium phosphate stones and pH greater than 6.0 may reduce the tendency for uric acid stone formation. Source: [facility] Current Interpretive Data was last revised on 2017 Protein, ur ql 1+(A) Negative [facility] Glucose, ur ql 4+(A) Negative [facility] Ketones, ur Trace Negative [facility] Bilirubin, ur Negative Negative [facility] Blood, ur Negative Negative [facility] Urobilinogen, ur <2.0 <2.0 mg/dL [facility] Nitrite, ur Negative Negative [facility] Leukocyte esterase, ur 1+(A) Negative [facility] UA reflex comment Reflex to microscopic UA will be performed. [facility] Urine 11/26/2024 12:1 6 AM ENGINE DESIGNER 11/26/2024 1:20 AM ENGINE DESIGNER Hesham Madsen MD LAB MICROBIOLOGY - GENERAL O RDERABLES Final Result [facility] [place] [address] * (ABNORMAL) Urinalysis, microscopic only (11/26/2024 12:16 AM ENGINE DESIGNER) WBC, ur 0-5 0 - 5 /HPF RBC, ur 3-5(A) 0 - 2 /HPF [facility] Epithelial cells, squamous, ur 1-5 0 - 5 /HPF [facility] Bacteria, ur Trace(A) [facility] Mucous, ur Present(A) [facility] Calcium oxalate crystals, ur 2+(A) [facility] Hyaline casts, ur 1-5 0 - 10 /LPF [facility] Culture Reflex Comment Reflex conditions for urine culture (WBC >10) not met. [facility] Urine 11/26/2024 12:1 6 AM ENGINE DESIGNER 11/26/2024 1:20 AM ENGINE DESIGNER Hesham Madsen MD LAB URINE ORDERABLES Final R esult Performing Organization Address City/[facility]/ZIP Co de Phone Number [facility] [place] [address] * eGFR (11/26/2024 12:10 AM ENGINE DESIGNER) eGFR >90 >=60 mL/min/1. 73 m2 Comment: [...] reviewed 2021. Blood 11/26/2024 12:1 0 AM ENGINE DESIGNER 11/26/2024 1:23 AM ENGINE DESIGNER Manisha Williamson NP LAB BLOOD ORDERABLES Final Result Performing Organization Address City/[facility]/ZIP Co de Phone Number [facility] [place] [address] * Differential, auto (11/26/2024 12:10 AM ENGINE DESIGNER) Neutrophil abs 6.0 1.5 - 6.5 K/cumm Imm gran abs 0.1 0.0 - 0.1 K/cumm [facility] Lymphocyte abs 1.3 0.8 - 3.3 K/cumm [facility] Monocyte abs 0.7 0.2 - 0.8 K/cumm [facility] Eosinophil abs 0.0 0.0 - 0.5 K/cumm [facility] Basophil abs 0.0 0.0 - 0.1 K/cumm [facility] Neutrophil pct 73.8 % [facility] Comment: Interpretive Data Percent cell count reference ranges are not reported, since discordance with absolute values may lead to misinterpretation of CBC data. Current Interpretive Data was last revised on 2018. Imm gran pct 1.2 % [facility] Comment: Interpretive Data Percent cell count reference ranges are not reported, since discordance with absolute values may lead to misinterpretation of CBC data. Current Interpretive Data was last revised on 2018. Lymphocyte pct 15.7 % [facility] Comment: Interpretive Data Percent cell count reference ranges are not reported, since discordance with absolute values may lead to misinterpretation of CBC data. Current Interpretive Data was last revised on 2018. Monocyte pct 9.1 % [facility] Comment: Interpretive Data Percent cell count reference ranges are not reported, since discordance with absolute values may lead to misinterpretation of CBC data. Current Interpretive Data was last revised on 2018. Eosinophil pct 0.1 % [facility] Comment: Interpretive Data Percent cell count reference ranges are not reported, since discordance with absolute values may lead to misinterpretation of CBC data. Current Interpretive Data was last revised on 2018. Basophil pct 0.1 % [facility] Comment: Interpretive Data Percent cell count reference ranges are not reported, since discordance with absolute values may lead to misinterpretation of CBC data. Current Interpretive Data was last revised on 2018. Blood 11/26/2024 12:1 0 AM ENGINE DESIGNER 11/26/2024 1:23 AM ENGINE DESIGNER us Manisha Williamson NP LAB BLOOD ORDERABLES Final Result [facility] [place] [address] * (ABNORMAL) CBC with auto differential (11/26/2024 12:10 AM ENGINE DESIGNER) Pathologist [facility] WBC 8.1 3.8 - 9.9 K/cumm Hgb 9.2(L) 11.9 - 15.5 g/dL [facility] Hct 34.0(L) 35.6 - 45.5 % [facility] Plt 375 150 - 400 K/cumm [facility] MPV 10.2 9.1 - 12.3 fL [facility] RBC 4.10 3.90 - 5.20 M/cumm [facility] MCV 82.9 81.3 - 96.4 fL [facility] MCH 22.4(L) 27.1 - 33.3 pg [facility] MCHC 27.1(L) 32.3 - 35.7 g/dL [facility] RDW CV 24.0(H) 11.1 - 14.9 % [facility] RDW SD 71.1(H) 35.7 - 48.1 fL [facility] NRBC abs 0.00 0.00 - 0.01 K/cumm [facility] Blood 11/26/2024 12:1 0 AM ENGINE DESIGNER 11/26/2024 1:23 AM ENGINE DESIGNER Manisha Williamson NP LAB BLOOD ORDERABLES Final Result [facility] Department [place] [address] * (ABNORMAL) Protime-INR (11/26/2024 12:10 AM ENGINE DESIGNER) Pathologist [facility] PT 26.5(H) 9.7 - 13.0 sec INR 2.41(H) 0.90 - 1.20 [facility] Comment: Interpretive data Oral anticoagulant therapeutic ranges: Venous thromboembolism prophylaxis or treatment: 2.0-3.0 CARDIOLOGY Standard range: 2.0-3.0 High-intensity range: 2.5-3.5 Refer to indication-specific guidelines for appropriate target ranges for prosthetic heart valve replacement. Current interpretive data was last revised on 2019. Blood 11/26/2024 12:1 0 AM ENGINE DESIGNER 11/26/2024 1:47 AM ENGINE DESIGNER Hesham Madsen MD LAB BLOOD ORDERABLES Final R esult [facility] Department [place] [address] * (ABNORMAL) Basic metabolic panel (11/26/2024 12:10 AM ENGINE DESIGNER) Sodium 146(H) 135 - 145 mmol/L Potassium, pl 3.0(L) 3.3 - 4.9 mmol/L [facility] Chloride 102 97 - 110 mmol/L [facility] CO2 37(H) 22 - 32 mmol/L [facility] Anion gap 7 2 - 15 mmol/L [facility] BUN 22 6 - 25 mg/dL [facility] Creatinine 0.65 0.60 - 1.10 mg/dL [facility] Glucose 201(H) 70 - 199 mg/dL [facility] Comment: Interpretive Data Fasting glucose >/= 126 [...] 2022. Calcium 8.8 8.5 - 10.3 mg/dL [facility] Blood 11/26/2024 12:1 0 AM ENGINE DESIGNER 11/26/2024 1:23 AM ENGINE DESIGNER Manisha Williamson NP LAB BLOOD ORDERABLES Final Result [facility] [place] [address] * (ABNORMAL) POCT glucose (11/25/2024 10:40 PM ENGINE DESIGNER) Glucose, POC 234(H) 70 - 199 mg/dL Blood 11/25/2024 10:4 0 PM ENGINE DESIGNER 11/25/2024 10:40 PM ENGINE DESIGNER Result [facility] Hesham Madsen MD LAB POCT ORDERABLES - DEVICE Final Result Performing Organization Address City/[facility]/[place] [address] * (ABNORMAL) POCT glucose (11/25/2024 9:37 PM ENGINE DESIGNER) Glucose, POC 287(H) 70 - 199 mg/dL Comment:Glu2: RN/MD Notified Glucose comment 1 Glu2: RN/MD Notified [facility] Blood 11/25/2024 9:37 PM ENGINE DESIGNER 11/25/2024 9:37 PM ENGINE DESIGNER Result [facility] Hesham Madsen MD LAB POCT ORDERABLES - DEVICE Final Result Performing Organization Address City/[facility]/ZIP Co de Phone Number [facility] [place] [address] * (ABNORMAL) POCT glucose (11/25/2024 8:11 PM ENGINE DESIGNER) Glucose, POC 351(H) 70 - 199 mg/dL Blood 11/25/2024 8:11 PM ENGINE DESIGNER 11/25/2024 8:11 PM ENGINE DESIGNER us Hesham Madsen MD LAB POCT ORDERABLES - DEVICE Final Result Performing Organization Address City/[facility]/ZIP Co de Phone Number [facility] [place] [address] * (ABNORMAL) POCT glucose (11/25/2024 5:09 PM ENGINE DESIGNER) Glucose, POC 223(H) 70 - 199 mg/dL Blood 11/25/2024 5:09 PM ENGINE DESIGNER 11/25/2024 5:09 PM ENGINE DESIGNER Hesham Madsen MD LAB POCT ORDERABLES - DEVICE Final Result Performing Organization Address City/[facility] Co de Phone Number [facility] [place] [address] * (ABNORMAL) POCT glucose (11/25/2024 2:32 PM ENGINE DESIGNER) Glucose, POC 270(H) 70 - 199 mg/dL Blood 11/25/2024 2:32 PM ENGINE DESIGNER 11/25/2024 2:32 PM ENGINE DESIGNER Hesham Madsen MD LAB POCT ORDERABLES - DEVICE Final Result Performing Organization Address [facility] Co de Phone Number [facility] [place] [address] * (ABNORMAL) POCT glucose (11/25/2024 11:40 AM ENGINE DESIGNER) Glucose, POC 324(H) 70 - 199 mg/dL Blood 11/25/2024 11:4 0 AM ENGINE DESIGNER 11/25/2024 11:40 AM ENGINE DESIGNER Result [facility] Hesham Madsen MD LAB POCT ORDERABLES - DEVICE Final Result Performing Organization Address [facility] Co de Phone Number [facility] [place] [address] * XR Chest 1 View (11/25/2024 9:35 AM ENGINE DESIGNER) Anatomical Region Laterality Modality Body, Chest N/A Computed Radiogr aphy 11/25/2024 11:5 8 AM ENGINE DESIGNER Impressions 11/25/2024 11:59 AM ENGINE DESIGNER Comparison is made to radiograph dated 11/22/2024. [...] Nereyda Medeiros M.D. Narrative 11/25/2024 11:59 AM ENGINE DESIGNER EXAMINATION: 1 view chest radiograph Procedure Note [...] it. Electronically signed by: Nereyda Medeiros M.D. us Ines Purdy PHARMACY STOCK CLERK IMG XR PROCEDURES Fin al Result * (ABNORMAL) POCT glucose (11/25/2024 7:51 AM ENGINE DESIGNER) [facility] Glucose, POC 221(H) 70 - 199 mg/dL Blood 11/25/2024 7:51 AM ENGINE DESIGNER 11/25/2024 7:51 AM ENGINE DESIGNER Hesham Madsen MD LAB POCT ORDERABLES - DEVICE Final Result Performing Organization Address [facility] de Phone Number ALLY [facility] Department [place] [address] * eGFR (11/24/2024 10:08 PM ENGINE DESIGNER) Pathologist [facility] eGFR 86 >=60 mL/min/1. 73 m2 Comment: [...] reviewed 2021. Blood 11/24/2024 10:0 8 PM ENGINE DESIGNER 11/24/2024 10:46 PM ENGINE DESIGNER Manisha Williamson NP LAB BLOOD ORDERABLES Final Result Performing Organization Address [facility] Co de Phone Number [facility] [place] [address] * (ABNORMAL) Differential, auto (11/24/2024 10:08 PM ENGINE DESIGNER) Pathologist [facility] Neutrophil abs 6.8(H) 1.5 - 6.5 K/cumm Imm gran abs 0.1 0.0 - 0.1 K/cumm [facility] Lymphocyte abs 1.2 0.8 - 3.3 K/cumm [facility] Monocyte abs 0.7 0.2 - 0.8 K/cumm [facility] Eosinophil abs 0.0 0.0 - 0.5 K/cumm [facility] Basophil abs 0.0 0.0 - 0.1 K/cumm [facility] Neutrophil pct 77.4 % [facility] Comment: Interpretive Data Percent cell count reference ranges are not reported, since discordance with absolute values may lead to misinterpretation of CBC data. Current Interpretive Data was last revised on 2018. Imm gran pct 1.2 % [facility] Comment: Interpretive Data Percent cell count reference ranges are not reported, since discordance with absolute values may lead to misinterpretation of CBC data. Current Interpretive Data was last revised on 2018. Lymphocyte pct 13.6 % [facility] Comment: Interpretive Data Percent cell count reference ranges are not reported, since discordance with absolute values may lead to misinterpretation of CBC data. Current Interpretive Data was last revised on 2018. Monocyte pct 7.6 % [facility] Comment: Interpretive Data Percent cell count reference ranges are not reported, since discordance with absolute values may lead to misinterpretation of CBC data. Current Interpretive Data was last revised on 2018. Eosinophil pct 0.1 % [facility] Comment: Interpretive Data Percent cell count reference ranges are not reported, since discordance with absolute values may lead to misinterpretation of CBC data. Current Interpretive Data was last revised on 2018. Basophil pct 0.1 % [facility] Comment: Interpretive Data Percent cell count reference ranges are not reported, since discordance with absolute values may lead to misinterpretation of CBC data. Current Interpretive Data was last revised on 2018. Blood 11/24/2024 10:0 8 PM ENGINE DESIGNER 11/24/2024 10:46 PM ENGINE DESIGNER Manisha Williamson NP LAB BLOOD ORDERABLES Final Result [facility] Department [place] [address] * (ABNORMAL) CBC with auto differential (11/24/2024 10:08 PM ENGINE DESIGNER) Pathologist [facility] WBC 8.8 3.8 - 9.9 K/cumm Hgb 10.3(L) 11.9 - 15.5 g/dL [facility] Hct 38.0 35.6 - 45.5 % [facility] Plt 459(H) 150 - 400 K/cumm [facility] MPV 10.3 9.1 - 12.3 fL [facility] RBC 4.53 3.90 - 5.20 M/cumm [facility] MCV 83.9 81.3 - 96.4 fL [facility] MCH 22.7(L) 27.1 - 33.3 pg [facility] MCHC 27.1(L) 32.3 - 35.7 g/dL [facility] RDW CV 24.4(H) 11.1 - 14.9 % [facility] RDW SD 72.6(H) 35.7 - 48.1 fL [facility] NRBC abs 0.03(H) 0.00 - 0.01 K/cumm [facility] Blood 11/24/2024 10:0 8 PM ENGINE DESIGNER 11/24/2024 10:46 PM ENGINE DESIGNER Manisha Williamson NP LAB BLOOD ORDERABLES Final Result [facility] Department [place] [address] * (ABNORMAL) Protime-INR (11/24/2024 10:08 PM ENGINE DESIGNER) Pathologist [facility] PT 22.3(H) 9.7 - 13.0 sec INR 2.04(H) 0.90 - 1.20 [facility] Comment: Interpretive data Oral anticoagulant therapeutic ranges: Venous thromboembolism prophylaxis or treatment: 2.0-3.0 CARDIOLOGY Standard range: 2.0-3.0 High-intensity range: 2.5-3.5 Refer to indication-specific guidelines for appropriate target ranges for prosthetic heart valve replacement. Current interpretive data was last revised on 2019. Blood 11/24/2024 10:0 8 PM ENGINE DESIGNER 11/24/2024 10:42 PM ENGINE DESIGNER Hesham Madsen MD LAB BLOOD ORDERABLES Final R esult [facility] Department [place] [address] * (ABNORMAL) Basic metabolic panel (11/24/2024 10:08 PM ENGINE DESIGNER) Pathologist [facility] Sodium 145 135 - 145 mmol/L Potassium, pl 3.8 3.3 - 4.9 mmol/L [facility] Chloride 97 97 - 110 mmol/L [facility] CO2 36(H) 22 - 32 mmol/L [facility] Anion gap 12 2 - 15 mmol/L [facility] BUN 28(H) 6 - 25 mg/dL [facility] Creatinine 0.78 0.60 - 1.10 mg/dL [facility] Glucose 243(H) 70 - 199 mg/dL [facility] Comment: Interpretive Data Fasting glucose >/= 126 [...] 2022. Calcium 9.0 8.5 - 10.3 mg/dL [facility] Blood 11/24/2024 10:0 8 PM ENGINE DESIGNER 11/24/2024 10:46 PM ENGINE DESIGNER Manisha Williamson NP LAB BLOOD ORDERABLES Final Result [facility] Department [place] [address] * (ABNORMAL) POCT glucose (11/24/2024 7:52 PM ENGINE DESIGNER) Glucose, POC 317(H) 70 - 199 mg/dL Comment:Glu2: RN/MD Notified Glucose comment 1 Glu2: RN/MD Notified [facility] Blood 11/24/2024 7:52 PM ENGINE DESIGNER 11/24/2024 7:52 PM ENGINE DESIGNER Hesham Madsen MD LAB POCT ORDERABLES - DEVICE Final Result Performing Organization Address City/[facility]/[place] [address] * POCT glucose (11/24/2024 5:06 PM ENGINE DESIGNER) Glucose, POC 136 70 - 199 mg/dL Blood 11/24/2024 5:06 PM ENGINE DESIGNER 11/24/2024 5:06 PM ENGINE DESIGNER Hesham Madsen MD LAB POCT ORDERABLES - DEVICE Final Result Performing Organization Address City/[facility]/ZIP Co de Phone Number [facility] Department [place] [address] * POCT glucose (11/24/2024 4:01 PM ENGINE DESIGNER) Glucose, POC 151 70 - 199 mg/dL Blood 11/24/2024 4:01 PM ENGINE DESIGNER 11/24/2024 4:01 PM ENGINE DESIGNER Hesham Madsen MD LAB POCT ORDERABLES - DEVICE Final Result Performing Organization Address City/[facility] Co de Phone Number [facility] [place] [address] * (ABNORMAL) POCT glucose (11/24/2024 3:01 PM ENGINE DESIGNER) Glucose, POC 242(H) 70 - 199 mg/dL Blood 11/24/2024 3:01 PM ENGINE DESIGNER 11/24/2024 3:01 PM ENGINE DESIGNER Hesham Madsen MD LAB POCT ORDERABLES - DEVICE Final Result Performing Organization Address [facility] de Phone Number [facility] [place] [address] * (ABNORMAL) POCT glucose (11/24/2024 1:57 PM ENGINE DESIGNER) Glucose, POC 384(H) 70 - 199 mg/dL Blood 11/24/2024 1:57 PM ENGINE DESIGNER 11/24/2024 1:57 PM ENGINE DESIGNER Hesham Madsen MD LAB POCT ORDERABLES - DEVICE Final Result Performing Organization Address [facility] de Phone Number [facility] [place] [address] * (ABNORMAL) POCT glucose (11/24/2024 12:16 PM ENGINE DESIGNER) Glucose, POC 305(H) 70 - 199 mg/dL Comment:Glu2: RN/MD Notified Glucose comment 1 Glu2: RN/MD Notified [facility] Blood 11/24/2024 12:1 6 PM ENGINE DESIGNER 11/24/2024 12:16 PM ENGINE DESIGNER Result [facility] Hesham Madsen MD LAB POCT ORDERABLES - DEVICE Final Result Performing Organization Address [facility] [place] [address] * (ABNORMAL) POCT glucose (11/24/2024 7:25 AM ENGINE DESIGNER) Glucose, POC 231(H) 70 - 199 mg/dL Blood 11/24/2024 7:25 AM ENGINE DESIGNER 11/24/2024 7:25 AM ENGINE DESIGNER Hesham Madsen MD LAB POCT ORDERABLES - DEVICE Final Result [facility] [place] [address] * eGFR (11/23/2024 10:31 PM ENGINE DESIGNER) eGFR >90 >=60 mL/min/1. 73 m2 Comment: [...] reviewed 2021. Blood 11/23/2024 10:3 1 PM ENGINE DESIGNER 11/23/2024 11:38 PM ENGINE DESIGNER us Manisha Williamson NP LAB BLOOD ORDERABLES Final Result Performing Organization Address City/[facility]/ZIP Co de Phone Number [facility] Department [place] [address] * Differential, auto (11/23/2024 10:31 PM ENGINE DESIGNER) Neutrophil abs 5.7 1.5 - 6.5 K/cumm Imm gran abs 0.1 0.0 - 0.1 K/cumm [facility] Lymphocyte abs 1.3 0.8 - 3.3 K/cumm [facility] Monocyte abs 0.8 0.2 - 0.8 K/cumm [facility] Eosinophil abs 0.0 0.0 - 0.5 K/cumm [facility] Basophil abs 0.0 0.0 - 0.1 K/cumm [facility] Neutrophil pct 71.7 % [facility] Comment: Interpretive Data Percent cell count reference ranges are not reported, since discordance with absolute values may lead to misinterpretation of CBC data. Current Interpretive Data was last revised on 2018. Imm gran pct 1.4 % [facility] Comment: Interpretive Data Percent cell count reference ranges are not reported, since discordance with absolute values may lead to misinterpretation of CBC data. Current Interpretive Data was last revised on 2018. Lymphocyte pct 16.7 % [facility] Comment: Interpretive Data Percent cell count reference ranges are not reported, since discordance with absolute values may lead to misinterpretation of CBC data. Current Interpretive Data was last revised on 2018. Monocyte pct 10.1 % [facility] Comment: Interpretive Data Percent cell count reference ranges are not reported, since discordance with absolute values may lead to misinterpretation of CBC data. Current Interpretive Data was last revised on 2018. Eosinophil pct 0.1 % [facility] Comment: Interpretive Data Percent cell count reference ranges are not reported, since discordance with absolute values may lead to misinterpretation of CBC data. Current Interpretive Data was last revised on 2018. Basophil pct 0.0 % [facility] Comment: Interpretive Data Percent cell count reference ranges are not reported, since discordance with absolute values may lead to misinterpretation of CBC data. Current Interpretive Data was last revised on 2018. Blood 11/23/2024 10:3 1 PM ENGINE DESIGNER 11/23/2024 11:39 PM ENGINE DESIGNER us Manisha Williamson NP LAB BLOOD ORDERABLES Final Result [facility] [place] [address] * (ABNORMAL) CBC with auto differential (11/23/2024 10:31 PM ENGINE DESIGNER) [facility] WBC 7.9 3.8 - 9.9 K/cumm Hgb 9.3(L) 11.9 - 15.5 g/dL [facility] Hct 35.0(L) 35.6 - 45.5 % [facility] Plt 419(H) 150 - 400 K/cumm [facility] MPV 10.4 9.1 - 12.3 fL [facility] RBC 4.22 3.90 - 5.20 M/cumm [facility] MCV 82.9 81.3 - 96.4 fL [facility] MCH 22.0(L) 27.1 - 33.3 pg [facility] MCHC 26.6(L) 32.3 - 35.7 g/dL [facility] RDW CV 24.4(H) 11.1 - 14.9 % [facility] RDW SD 72.2(H) 35.7 - 48.1 fL [facility] NRBC abs 0.02(H) 0.00 - 0.01 K/cumm [facility] Blood 11/23/2024 10:3 1 PM ENGINE DESIGNER 11/23/2024 11:39 PM ENGINE DESIGNER Manisha Williamson NP LAB BLOOD ORDERABLES Final Result Performing Organization Address City/State/[facility] Co de Phone Number [facility] [place] [address] * (ABNORMAL) Protime-INR (11/23/2024 10:31 PM ENGINE DESIGNER) [facility] PT 18.4(H) 9.7 - 13.0 sec INR 1.69(H) 0.90 - 1.20 [facility] Comment: Interpretive data Oral anticoagulant therapeutic ranges: Venous thromboembolism prophylaxis or treatment: 2.0-3.0 CARDIOLOGY Standard range: 2.0-3.0 High-intensity range: 2.5-3.5 Refer to indication-specific guidelines for appropriate target ranges for prosthetic heart valve replacement. Current interpretive data was last revised on 2019. Blood 11/23/2024 10:3 1 PM ENGINE DESIGNER 11/23/2024 11:47 PM ENGINE DESIGNER Hesham Madsen MD LAB BLOOD ORDERABLES Final R esult [facility] [place] [address] * (ABNORMAL) Basic metabolic panel (11/23/2024 10:31 PM ENGINE DESIGNER) Sodium 148(H) 135 - 145 mmol/L Potassium, pl 3.7 3.3 - 4.9 mmol/L [facility] Chloride 103 97 - 110 mmol/L [facility] CO2 35(H) 22 - 32 mmol/L [facility] Anion gap 10 2 - 15 mmol/L [facility] BUN 22 6 - 25 mg/dL [facility] Creatinine 0.51(L) 0.60 - 1.10 mg/dL [facility] Glucose 185 70 - 199 mg/dL [facility] Comment: Interpretive Data Fasting glucose >/= 126 [...] 2022. Calcium 8.5 8.5 - 10.3 mg/dL [facility] Blood 11/23/2024 10:3 1 PM ENGINE DESIGNER 11/23/2024 11:38 PM ENGINE DESIGNER Manisha Williamson NP LAB BLOOD [place] [address] * POCT glucose (11/23/2024 10:13 PM ENGINE DESIGNER) Glucose, POC 175 70 - 199 mg/dL Blood 11/23/2024 10:1 3 PM ENGINE DESIGNER 11/23/2024 10:13 PM ENGINE DESIGNER Hesham Madsen MD LAB POCT ORDERABLES - DEVICE Final Result Performing Organization Address [facility] [place] [address] * (ABNORMAL) POCT glucose (11/23/2024 8:11 PM ENGINE DESIGNER) Glucose, POC 205(H) 70 - 199 mg/dL Blood 11/23/2024 8:11 PM ENGINE DESIGNER 11/23/2024 8:11 PM ENGINE DESIGNER Hesham Madsen MD LAB POCT ORDERABLES - DEVICE Final Result Performing Organization Address [facility] [place] [address] * (ABNORMAL) POCT glucose (11/23/2024 6:23 PM ENGINE DESIGNER) Glucose, POC 363(H) 70 - 199 mg/dL Blood 11/23/2024 6:23 PM ENGINE DESIGNER 11/23/2024 6:23 PM ENGINE DESIGNER Hesham Madsen MD LAB POCT ORDERABLES - DEVICE Final Result Performing Organization Address [facility] Co de Phone Number [facility] [place] [address] * (ABNORMAL) POCT glucose (11/23/2024 4:35 PM ENGINE DESIGNER) Glucose, POC 340(H) 70 - 199 mg/dL Blood 11/23/2024 4:35 PM ENGINE DESIGNER 11/23/2024 4:35 PM ENGINE DESIGNER Hesham Madsen MD LAB POCT ORDERABLES - DEVICE Final Result Performing Organization Address [facility] Co de Phone Number [facility] [place] [address] * (ABNORMAL) POCT glucose (11/23/2024 4:34 PM ENGINE DESIGNER) Glucose, POC 365(H) 70 - 199 mg/dL Blood 11/23/2024 4:34 PM ENGINE DESIGNER 11/23/2024 4:34 PM ENGINE DESIGNER Hesham Madsen MD LAB POCT ORDERABLES - DEVICE Final Result Performing Organization Address [facility] de Phone Number [facility] [place] [address] * (ABNORMAL) POCT glucose (11/23/2024 12:28 PM ENGINE DESIGNER) Glucose, POC 209(H) 70 - 199 mg/dL Blood 11/23/2024 12:2 8 PM ENGINE DESIGNER 11/23/2024 12:28 PM ENGINE DESIGNER Hesham Madsen MD LAB POCT ORDERABLES - DEVICE Final Result Performing Organization Address [facility] Co de Phone Number [facility] [place] [address] * (ABNORMAL) POCT glucose (11/23/2024 8:07 AM ENGINE DESIGNER) Glucose, POC 227(H) 70 - 199 mg/dL Blood 11/23/2024 8:07 AM ENGINE DESIGNER 11/23/2024 8:07 AM ENGINE DESIGNER Hesham Madsen MD LAB POCT ORDERABLES - DEVICE Final Result [facility] [place] [address] * (ABNORMAL) POCT glucose (11/22/2024 8:03 PM ENGINE DESIGNER) Pathologist [facility] Glucose, POC 324(H) 70 - 199 mg/dL Blood 11/22/2024 8:03 PM ENGINE DESIGNER 11/22/2024 8:03 PM ENGINE DESIGNER Hesham Madsen MD LAB POCT ORDERABLES - DEVICE Final Result Performing Organization Address City/[facility] de Phone Number [facility] Department [place] [address] * Differential, auto (11/22/2024 7:05 PM ENGINE DESIGNER) [facility] Neutrophil abs 6.0 1.5 - 6.5 K/cumm Imm gran abs 0.1 0.0 - 0.1 K/cumm [facility] Lymphocyte abs 0.9 0.8 - 3.3 K/cumm [facility] Monocyte abs 0.7 0.2 - 0.8 K/cumm [facility] Eosinophil abs 0.0 0.0 - 0.5 K/cumm [facility] Basophil abs 0.0 0.0 - 0.1 K/cumm [facility] Neutrophil pct 77.6 % [facility] Comment: Interpretive Data Percent cell count reference ranges are not reported, since discordance with absolute values may lead to misinterpretation of CBC data. Current Interpretive Data was last revised on 2018. Imm gran pct 1.2 % [facility] Comment: Interpretive Data Percent cell count reference ranges are not reported, since discordance with absolute values may lead to misinterpretation of CBC data. Current Interpretive Data was last revised on 2018. Lymphocyte pct 12.2 % [facility] Comment: Interpretive Data Percent cell count reference ranges are not reported, since discordance with absolute values may lead to misinterpretation of CBC data. Current Interpretive Data was last revised on 2018. Monocyte pct 8.8 % [facility] Comment: Interpretive Data Percent cell count reference ranges are not reported, since discordance with absolute values may lead to misinterpretation of CBC data. Current Interpretive Data was last revised on 2018. Eosinophil pct 0.1 % [facility] Comment: Interpretive Data Percent cell count reference ranges are not reported, since discordance with absolute values may lead to misinterpretation of CBC data. Current Interpretive Data was last revised on 2018. Basophil pct 0.1 % [facility] Comment: Interpretive Data Percent cell count reference ranges are not reported, since discordance with absolute values may lead to misinterpretation of CBC data. Current Interpretive Data was last revised on 2018. Blood 11/22/2024 7:05 PM ENGINE DESIGNER 11/22/2024 8:14 PM ENGINE DESIGNER Manisha Williamson NP LAB BLOOD ORDERABLES Final Result [facility] Department [place] [address] * (ABNORMAL) CBC with auto differential (11/22/2024 7:05 PM ENGINE DESIGNER) WBC 7.7 3.8 - 9.9 K/cumm Hgb 9.6(L) 11.9 - 15.5 g/dL [facility] Hct 35.5(L) 35.6 - 45.5 % [facility] Plt 436(H) 150 - 400 K/cumm [facility] MPV 10.6 9.1 - 12.3 fL [facility] RBC 4.26 3.90 - 5.20 M/cumm [facility] MCV 83.3 81.3 - 96.4 fL [facility] MCH 22.5(L) 27.1 - 33.3 pg [facility] MCHC 27.0(L) 32.3 - 35.7 g/dL [facility] RDW CV 24.5(H) 11.1 - 14.9 % [facility] RDW SD 72.1(H) 35.7 - 48.1 fL [facility] NRBC abs 0.02(H) 0.00 - 0.01 K/cumm [facility] Blood 11/22/2024 7:05 PM ENGINE DESIGNER 11/22/2024 8:14 PM ENGINE DESIGNER Manisha Williamson NP LAB BLOOD ORDERABLES Final Result Performing Organization Address [facility] Co de Phone Number [facility] Department [place] [address] * (ABNORMAL) Troponin I high-sensitivity (11/22/2024 7:04 PM ENGINE DESIGNER) Trop I hs 61(H) <=17 ng/L Comment: Interpretive Data For further hscTnI resources including the diagnostic algorithm and an aid in interpretation, copy and paste this link: https://bjhlab.testcatalog.org/show/[email or web address]-1 Current Interpretive Data last revised 2020. Blood 11/22/2024 7:04 PM ENGINE DESIGNER 11/22/2024 8:13 PM ENGINE DESIGNER Lizett Contreras MD LAB BLOOD ORDERABLES Fin al Result Performing Organization Address City/[facility]/ZIP Co de Phone Number [facility] Department [place] [address] * eGFR (11/22/2024 7:04 PM ENGINE DESIGNER) eGFR >90 >=60 mL/min/1. 73 m2 Comment: [...] last reviewed 2021. Blood 11/22/2024 7:04 PM ENGINE DESIGNER 11/22/2024 7:27 PM ENGINE DESIGNER Hesham Madsen MD LAB BLOOD ORDERABLES Final R [facility] Performing Organization Address [facility] Co de Phone Number [facility] [place] [address] * aPTT (11/22/2024 7:04 PM ENGINE DESIGNER) aPTT 31 28 - 38 sec Comment: Interpretive Data Heparin therapeutic range: 66.0 - 100.0 seconds. Range based on correlation with therapeutic heparin activity range of 0.3 - 0.7 Units/mL. Current interpretive data was last revised on 2023. Blood 11/22/2024 7:04 PM ENGINE DESIGNER 11/22/2024 7:15 PM ENGINE DESIGNER Hesham Madsen MD LAB BLOOD ORDERABLES Final R esult Performing Organization Address [facility] Co de Phone Number [facility] [place] [address] * Protime-INR (11/22/2024 7:04 PM ENGINE DESIGNER) PT 11.8 9.7 - 13.0 sec INR 1.09 0.90 - 1.20 [facility] Comment: Interpretive data Oral anticoagulant therapeutic ranges: Venous thromboembolism prophylaxis or treatment: 2.0-3.0 CARDIOLOGY Standard range: 2.0-3.0 High-intensity range: 2.5-3.5 Refer to indication-specific guidelines for appropriate target ranges for prosthetic heart valve replacement. Current interpretive data was last revised on 2019. Blood 11/22/2024 7:04 PM ENGINE DESIGNER 11/22/2024 7:15 PM ENGINE DESIGNER Hesham Madsen MD LAB BLOOD ORDERABLES Final R esult Performing Organization Address City/[facility] Co de Phone Number [facility] [place] [address] * Phosphorus (11/22/2024 7:04 PM ENGINE DESIGNER) Pathologist [facility] Phosphorus, pl 2.5 2.3 - 4.5 mg/dL Blood 11/22/2024 7:04 PM ENGINE DESIGNER 11/22/2024 7:15 PM ENGINE DESIGNER Lizett Contreras MD LAB BLOOD ORDERABLES Fin al Result Performing Organization Address [facility] de Phone Number [facility] [place] [address] * Magnesium (11/22/2024 7:04 PM ENGINE DESIGNER) Pathologist [facility] Magnesium 2.0 1.4 - 2.5 mg/dL Blood 11/22/2024 7:04 PM ENGINE DESIGNER 11/22/2024 7:15 PM ENGINE DESIGNER Lizett Contreras MD LAB BLOOD ORDERABLES Fin al Result Performing Organization Address [facility] de Phone Number [facility] [place] [address] * (ABNORMAL) Basic metabolic panel (11/22/2024 7:04 PM ENGINE DESIGNER) Sodium 145 135 - 145 mmol/L Potassium, pl 3.7 3.3 - 4.9 mmol/L [facility] Chloride 101 97 - 110 mmol/L [facility] CO2 32 22 - 32 mmol/L [facility] Anion gap 12 2 - 15 mmol/L [facility] BUN 22 6 - 25 mg/dL [facility] Creatinine 0.49(L) 0.60 - 1.10 mg/dL [facility] Glucose 314(H) 70 - 199 mg/dL [facility] Comment: Interpretive Data Fasting glucose >/= 126 [...] 2022. Calcium 8.3(L) 8.5 - 10.3 mg/dL [facility] Blood 11/22/2024 7:04 PM ENGINE DESIGNER 11/22/2024 7:15 PM ENGINE DESIGNER Hesham Madsen MD LAB BLOOD ORDERABLES Final R esult Performing Organization Address City/[facility] Co de Phone Number [facility] [place] [address] * (ABNORMAL) POCT glucose (11/22/2024 6:56 PM ENGINE DESIGNER) [facility] Glucose, POC 316(H) 70 - 199 mg/dL Blood 11/22/2024 6:56 PM ENGINE DESIGNER 11/22/2024 6:56 PM ENGINE DESIGNER us Hesham Madsen MD LAB POCT ORDERABLES - DEVICE Final Result Performing Organization Address [facility] Co de Phone Number [facility] Department [place] [address] * (ABNORMAL) POCT glucose (11/22/2024 5:27 PM ENGINE DESIGNER) Glucose, POC 225(H) 70 - 199 mg/dL Blood 11/22/2024 5:27 PM ENGINE DESIGNER 11/22/2024 5:27 PM ENGINE DESIGNER Hesham Madsen MD LAB POCT ORDERABLES - DEVICE Final Result [facility] Department [place] [address] * XR Chest 1 View (11/22/2024 3:32 PM ENGINE DESIGNER) Anatomical Region Laterality Modality Body, Chest N/A Digital Radiogra phy 11/22/2024 4:33 PM ENGINE DESIGNER Impressions 11/22/2024 5:43 PM ENGINE DESIGNER Comparison is made to radiograph dated 11/09/2024. [...] Cesar Bryan M.D. Narrative 11/22/2024 5:43 PM ENGINE DESIGNER EXAMINATION: 1 view chest radiograph Procedure Note [...] signed by: Cesar Bryan M.D. Manisha Williamson PHARMACY STOCK CLERK IMG XR PROCEDURES Fi nal Result * (ABNORMAL) POCT glucose (11/22/2024 2:42 PM ENGINE DESIGNER) Glucose, POC 216(H) 70 - 199 mg/dL Blood 11/22/2024 2:42 PM ENGINE DESIGNER 11/22/2024 2:42 PM ENGINE DESIGNER Result [facility] Hesham Madsen MD LAB POCT ORDERABLES - DEVICE Final Result Performing Organization Address [facility] Co de Phone Number [facility] [place] [address] * (ABNORMAL) POCT glucose (11/22/2024 11:57 AM ENGINE DESIGNER) Glucose, POC 279(H) 70 - 199 mg/dL Blood 11/22/2024 11:5 7 AM ENGINE DESIGNER 11/22/2024 11:57 AM ENGINE DESIGNER Result [facility] Hesham Madsen MD LAB POCT ORDERABLES - DEVICE Final Result Performing Organization Address [facility] de Phone Number [facility] [place] [address] * POCT glucose (11/22/2024 8:10 AM ENGINE DESIGNER) Glucose, POC 194 70 - 199 mg/dL Blood 11/22/2024 8:10 AM ENGINE DESIGNER 11/22/2024 8:10 AM ENGINE DESIGNER Hesham Madsen MD LAB POCT ORDERABLES - DEVICE Final Result [facility] [place] [address] * (ABNORMAL) aPTT (11/22/2024 12:22 AM ENGINE DESIGNER) [facility] aPTT 96(H) 28 - 38 sec Comment: Interpretive Data Heparin therapeutic range: 66.0 - 100.0 seconds. Range based on correlation with therapeutic heparin activity range of 0.3 - 0.7 Units/mL. Current interpretive data was last revised on 2023. Blood 11/22/2024 12:2 2 AM ENGINE DESIGNER 11/22/2024 1:07 AM ENGINE DESIGNER Narrative [facility] - 11/22/2024 1:18 AM ENGINE DESIGNER STAT PTT timing: - Draw 6 hours [...] BLOOD ORDERABLES Final Result [facility] Department [place] [address] * eGFR (2024 10:06 PM ENGINE DESIGNER) [facility] eGFR >90 >=60 mL/min/1. 73 m2 Comment: [...] reviewed 2021. Blood 2024 10:0 6 PM ENGINE DESIGNER 2024 11:26 PM ENGINE DESIGNER Manisha Williamson NP LAB BLOOD ORDERABLES Final Result [facility] Department [place] [address] * Differential, auto (2024 10:06 PM ENGINE DESIGNER) Pathologist [facility] Neutrophil abs 5.6 1.5 - 6.5 K/cumm Imm gran abs 0.1 0.0 - 0.1 K/cumm [facility] Lymphocyte abs 1.4 0.8 - 3.3 K/cumm [facility] Monocyte abs 0.8 0.2 - 0.8 K/cumm [facility] Eosinophil abs 0.0 0.0 - 0.5 K/cumm [facility] Basophil abs 0.0 0.0 - 0.1 K/cumm [facility] Neutrophil pct 70.1 % [facility] Comment: Interpretive Data Percent cell count reference ranges are not reported, since discordance with absolute values may lead to misinterpretation of CBC data. Current Interpretive Data was last revised on 2018. Imm gran pct 1.0 % [facility] Comment: Interpretive Data Percent cell count reference ranges are not reported, since discordance with absolute values may lead to misinterpretation of CBC data. Current Interpretive Data was last revised on 2018. Lymphocyte pct 17.9 % [facility] Comment: Interpretive Data Percent cell count reference ranges are not reported, since discordance with absolute values may lead to misinterpretation of CBC data. Current Interpretive Data was last revised on 2018. Monocyte pct 10.6 % [facility] Comment: Interpretive Data Percent cell count reference ranges are not reported, since discordance with absolute values may lead to misinterpretation of CBC data. Current Interpretive Data was last revised on 2018. Eosinophil pct 0.3 % [facility] Comment: Interpretive Data Percent cell count reference ranges are not reported, since discordance with absolute values may lead to misinterpretation of CBC data. Current Interpretive Data was last revised on 2018. Basophil pct 0.1 % [facility] Comment: Interpretive Data Percent cell count reference ranges are not reported, since discordance with absolute values may lead to misinterpretation of CBC data. Current Interpretive Data was last revised on 2018. Blood 2024 10:0 6 PM ENGINE DESIGNER 2024 11:29 PM ENGINE DESIGNER Manisha Williamson NP LAB BLOOD ORDERABLES Final Result [facility] Department [place] [address] * Critical Result Callback Hematology (2024 10:06 PM ENGINE DESIGNER) Date Notified [id number] Time Notified 5 [facility] TestName aPTT [facility] Called/Read Back Bobbi Sherine WOODARD Credentials RN [facility] Called By MONE WOODARD Blood 2024 10:0 6 PM ENGINE DESIGNER 2024 11:37 PM ENGINE DESIGNER Manisha Williamson NP LAB BLOOD ORDERABLES Final Result [facility] Department [place] [address] * (ABNORMAL) CBC with auto differential (2024 10:06 PM ENGINE DESIGNER) [facility] WBC 8.0 3.8 - 9.9 K/cumm Hgb 9.2(L) 11.9 - 15.5 g/dL [facility] Hct 34.7(L) 35.6 - 45.5 % [facility] Plt 440(H) 150 - 400 K/cumm [facility] MPV 10.6 9.1 - 12.3 fL [facility] RBC 4.18 3.90 - 5.20 M/cumm [facility] MCV 83.0 81.3 - 96.4 fL [facility] MCH 22.0(L) 27.1 - 33.3 pg [facility] MCHC 26.5(L) 32.3 - 35.7 g/dL [facility] RDW CV 24.4(H) 11.1 - 14.9 % [facility] RDW SD 72.4(H) 35.7 - 48.1 fL [facility] NRBC abs 0.00 0.00 - 0.01 K/cumm [facility] Blood 2024 10:0 6 PM ENGINE DESIGNER 2024 11:29 PM ENGINE DESIGNER Manisha Williamson NP LAB BLOOD ORDERABLES Final Result [facility] Department [place] [address] * (ABNORMAL) aPTT (2024 10:06 PM ENGINE DESIGNER) [facility] aPTT >150(C) 28 - 38 sec Comment: No clot detected in sample.Repeated and verified. Interpretive Data Heparin therapeutic range: 66.0 - 100.0 seconds. Range based on correlation with therapeutic heparin activity range of 0.3 - 0.7 Units/mL. Current interpretive data was last revised on 2023. Blood 2024 10:0 6 PM ENGINE DESIGNER 2024 11:29 PM ENGINE DESIGNER Narrative [facility] - 11/22/2024 12:02 AM ENGINE DESIGNER STAT PTT timing: - Draw 6 hours [...] must be drawn peripherally (not from CVC). us Manisha Williamson NP LAB BLOOD ORDERABLES Final Result Performing Organization Address [facility] de Phone Number [facility] [place] [address] * Protime-INR (2024 10:06 PM ENGINE DESIGNER) PT 11.8 9.7 - 13.0 sec INR 1.09 0.90 - 1.20 [facility] Comment: Interpretive data Oral anticoagulant therapeutic ranges: Venous thromboembolism prophylaxis or treatment: 2.0-3.0 CARDIOLOGY Standard range: 2.0-3.0 High-intensity range: 2.5-3.5 Refer to indication-specific guidelines for appropriate target ranges for prosthetic heart valve replacement. Current interpretive data was last revised on 2019. Blood 2024 10:0 6 PM ENGINE DESIGNER 2024 11:29 PM ENGINE DESIGNER Hesham Madsen MD LAB BLOOD ORDERABLES Final R esult Performing Organization Address City/[facility]/ZIP Co de Phone Number [facility] [place] [address] * (ABNORMAL) Basic metabolic panel (2024 10:06 PM ENGINE DESIGNER) Sodium 146(H) 135 - 145 mmol/L Potassium, pl 3.8 3.3 - 4.9 mmol/L [facility] Chloride 105 97 - 110 mmol/L [facility] CO2 35(H) 22 - 32 mmol/L [facility] Anion gap 6 2 - 15 mmol/L [facility] BUN 19 6 - 25 mg/dL [facility] Creatinine 0.44(L) 0.60 - 1.10 mg/dL [facility] Glucose 182 70 - 199 mg/dL [facility] Comment: Interpretive Data Fasting glucose >/= 126 [...] 2022. Calcium 8.5 8.5 - 10.3 mg/dL [facility] Blood 2024 10:0 6 PM ENGINE DESIGNER 2024 11:26 PM ENGINE DESIGNER Manisha Williamson NP LAB BLOOD ORDERABLES Final Result [facility] Department [place] [address] * (ABNORMAL) POCT glucose (2024 7:21 PM ENGINE DESIGNER) Glucose, POC 352(H) 70 - 199 mg/dL Comment:Glu2: RN/MD Notified Glucose comment 1 Glu2: RN/MD Notified [facility] Blood 2024 7:21 PM ENGINE DESIGNER 2024 7:21 PM ENGINE DESIGNER us Hesham Madsen MD LAB POCT ORDERABLES - DEVICE Final Result Performing Organization Address [facility] Co de Phone Number [facility] [place] [address] * (ABNORMAL) POCT glucose (2024 4:43 PM ENGINE DESIGNER) Glucose, POC 281(H) 70 - 199 mg/dL Blood 2024 4:43 PM ENGINE DESIGNER 2024 4:43 PM ENGINE DESIGNER Hesham Madsen MD LAB POCT ORDERABLES - DEVICE Final Result Performing Organization Address [facility] de Phone Number [facility] [place] [address] * (ABNORMAL) POCT glucose (2024 12:22 PM ENGINE DESIGNER) Glucose, POC 211(H) 70 - 199 mg/dL Blood 2024 12:2 2 PM ENGINE DESIGNER 2024 12:22 PM ENGINE DESIGNER Result [facility] Hesham Madsen MD LAB POCT ORDERABLES - DEVICE Final Result Performing Organization Address [facility] Co de Phone Number [facility] Department [place] [address] * (ABNORMAL) POCT glucose (2024 8:06 AM ENGINE DESIGNER) Glucose, POC 204(H) 70 - 199 mg/dL Blood 2024 8:06 AM ENGINE DESIGNER 2024 8:06 AM ENGINE DESIGNER us Hesham Madsen MD LAB POCT ORDERABLES - DEVICE Final Result Performing Organization Address [facility] Co de Phone Number [facility] Department [place] [address] * (ABNORMAL) POCT glucose (2024 3:35 AM ENGINE DESIGNER) [facility] Glucose, POC 250(H) 70 - 199 mg/dL Comment:Glu2: RN/MD Notified Glucose comment 1 Glu2: RN/MD Notified [facility] Blood 2024 3:35 AM ENGINE DESIGNER 2024 3:35 AM ENGINE DESIGNER Hesham Madsen MD LAB POCT ORDERABLES - DEVICE Final Result [facility] [place] [address] * (ABNORMAL) POCT glucose (2024 12:12 AM ENGINE DESIGNER) [facility] Glucose, POC 210(H) 70 - 199 mg/dL Blood 2024 12:1 2 AM ENGINE DESIGNER 2024 12:12 AM ENGINE DESIGNER Hesham Madsen MD LAB POCT ORDERABLES - DEVICE Final Result [facility] [place] [address] * (ABNORMAL) Troponin I high-sensitivity 6-hour (11/20/2024 10:13 PM ENGINE DESIGNER) [facility] Trop I hs 66(H) <=17 ng/L Comment: Interpretive Data For further hscTnI resources including the diagnostic algorithm and an aid in interpretation, copy and paste this link: https://bjhlab.testcatalog.org/show/hsTrop-1 Current Interpretive Data last revised 2020. Trop I hs delta See Comment ng/L [facility] Comment:Inappropriate collec tion time to report a delta. Trop I hs pct delta See Comment % [facility] Comment:Inappropriate collec tion time to report a delta. Trop I hs interp See Comment [facility] Comment:Inappropriate collec tion time to report a delta. Blood 11/20/2024 10:1 3 PM ENGINE DESIGNER 11/20/2024 10:49 PM ENGINE DESIGNER Hesham Madsen MD LAB BLOOD ORDERABLES Final R esult Performing Organization Address City/[facility]/ZIP Co de Phone Number [facility] [place] [address] * eGFR (11/20/2024 10:13 PM ENGINE DESIGNER) eGFR >90 >=60 mL/min/1. 73 m2 Comment: [...] reviewed 2021. Blood 11/20/2024 10:1 3 PM ENGINE DESIGNER 11/20/2024 10:50 PM ENGINE DESIGNER us Manisha Williamson NP LAB BLOOD ORDERABLES Final Result Performing Organization Address [facility]/ZIP Co de Phone Number [facility] Department [place] [address] * Differential, auto (11/20/2024 10:13 PM ENGINE DESIGNER) Neutrophil abs 5.6 1.5 - 6.5 K/cumm Imm gran abs 0.1 0.0 - 0.1 K/cumm [facility] Lymphocyte abs 0.9 0.8 - 3.3 K/cumm [facility] Monocyte abs 0.6 0.2 - 0.8 K/cumm [facility] Eosinophil abs 0.0 0.0 - 0.5 K/cumm [facility] Basophil abs 0.0 0.0 - 0.1 K/cumm [facility] Neutrophil pct 77.4 % [facility] Comment: Interpretive Data Percent cell count reference ranges are not reported, since discordance with absolute values may lead to misinterpretation of CBC data. Current Interpretive Data was last revised on 2018. Imm gran pct 1.7 % [facility] Comment: Interpretive Data Percent cell count reference ranges are not reported, since discordance with absolute values may lead to misinterpretation of CBC data. Current Interpretive Data was last revised on 2018. Lymphocyte pct 12.3 % [facility] Comment: Interpretive Data Percent cell count reference ranges are not reported, since discordance with absolute values may lead to misinterpretation of CBC data. Current Interpretive Data was last revised on 2018. Monocyte pct 8.4 % [facility] Comment: Interpretive Data Percent cell count reference ranges are not reported, since discordance with absolute values may lead to misinterpretation of CBC data. Current Interpretive Data was last revised on 2018. Eosinophil pct 0.1 % [facility] Comment: Interpretive Data Percent cell count reference ranges are not reported, since discordance with absolute values may lead to misinterpretation of CBC data. Current Interpretive Data was last revised on 2018. Basophil pct 0.1 % [facility] Comment: Interpretive Data Percent cell count reference ranges are not reported, since discordance with absolute values may lead to misinterpretation of CBC data. Current Interpretive Data was last revised on 2018. Blood 11/20/2024 10:1 3 PM ENGINE DESIGNER 11/20/2024 10:49 PM ENGINE DESIGNER Manisha Williamson NP LAB BLOOD ORDERABLES Final Result Performing Organization Address [facility] Co de Phone Number [facility] [place] [address] * (ABNORMAL) CBC with auto differential (11/20/2024 10:13 PM ENGINE DESIGNER) [facility] WBC 7.3 3.8 - 9.9 K/cumm Hgb 9.2(L) 11.9 - 15.5 g/dL [facility] Hct 34.6(L) 35.6 - 45.5 % [facility] Plt 372 150 - 400 K/cumm [facility] MPV 10.2 9.1 - 12.3 fL [facility] RBC 4.19 3.90 - 5.20 M/cumm [facility] MCV 82.6 81.3 - 96.4 fL [facility] MCH 22.0(L) 27.1 - 33.3 pg [facility] MCHC 26.6(L) 32.3 - 35.7 g/dL [facility] RDW CV 24.4(H) 11.1 - 14.9 % [facility] RDW SD 71.1(H) 35.7 - 48.1 fL [facility] NRBC abs 0.00 0.00 - 0.01 K/cumm [facility] Blood 11/20/2024 10:1 3 PM ENGINE DESIGNER 11/20/2024 10:49 PM ENGINE DESIGNER Manisha Williamson PHARMACY STOCK CLERK LAB BLOOD ORDERABLES Final Result [facility] Department [place] [address] * (ABNORMAL) aPTT (11/20/2024 10:13 PM ENGINE DESIGNER) Pathologist [facility] aPTT 79(H) 28 - 38 sec Comment: Interpretive Data Heparin therapeutic range: 66.0 - 100.0 seconds. Range based on correlation with therapeutic heparin activity range of 0.3 - 0.7 Units/mL. Current interpretive data was last revised on 2023. Blood 11/20/2024 10:1 3 PM ENGINE DESIGNER 11/20/2024 10:53 PM ENGINE DESIGNER Narrative [facility] - 11/20/2024 11:02 PM ENGINE DESIGNER STAT PTT timing: - Draw 6 hours [...] BLOOD ORDERABLES Final Result Performing Organization Address [facility] Co de Phone Number [facility] Department [place] [address] * Protime-INR (11/20/2024 10:13 PM ENGINE DESIGNER) PT 10.8 9.7 - 13.0 sec INR 1.00 0.90 - 1.20 [facility] Comment: Interpretive data Oral anticoagulant therapeutic ranges: Venous thromboembolism prophylaxis or treatment: 2.0-3.0 CARDIOLOGY Standard range: 2.0-3.0 High-intensity range: 2.5-3.5 Refer to indication-specific guidelines for appropriate target ranges for prosthetic heart valve replacement. Current interpretive data was last revised on 2019. Blood 11/20/2024 10:1 3 PM ENGINE DESIGNER 11/20/2024 10:52 PM ENGINE DESIGNER Hesham Madsen MD LAB BLOOD ORDERABLES Final R esult Performing Organization Address City/[facility]/ZIP Co de Phone Number [facility] Department [place] [address] * (ABNORMAL) Basic metabolic panel (11/20/2024 10:13 PM ENGINE DESIGNER) Sodium 145 135 - 145 mmol/L Potassium, pl 3.2(L) 3.3 - 4.9 mmol/L [facility] Chloride 103 97 - 110 mmol/L [facility] CO2 34(H) 22 - 32 mmol/L [facility] Anion gap 8 2 - 15 mmol/L [facility] BUN 20 6 - 25 mg/dL [facility] Creatinine 0.49(L) 0.60 - 1.10 mg/dL [facility] Glucose 242(H) 70 - 199 mg/dL [facility] Comment: Interpretive Data Fasting glucose >/= 126 [...] 2022. Calcium 8.5 8.5 - 10.3 mg/dL [facility] Blood 11/20/2024 10:1 3 PM ENGINE DESIGNER 11/20/2024 10:50 PM ENGINE DESIGNER Manisha Williamson NP LAB BLOOD ORDERABLES Final Result [facility] Department [place] [address] * POCT glucose (11/20/2024 8:01 PM ENGINE DESIGNER) Glucose, POC 191 70 - 199 mg/dL Blood 11/20/2024 8:01 PM ENGINE DESIGNER 11/20/2024 8:01 PM ENGINE DESIGNER us Hesham Madsen MD LAB POCT ORDERABLES - DEVICE Final Result [facility] [place] [address] * POCT glucose (11/20/2024 4:36 PM ENGINE DESIGNER) Glucose, POC 197 70 - 199 mg/dL Blood 11/20/2024 4:36 PM ENGINE DESIGNER 11/20/2024 4:36 PM ENGINE DESIGNER Result [facility] Hesham Madsen MD LAB POCT ORDERABLES - DEVICE Final Result Performing Organization Address [facility] Co de Phone Number ALLY [facility] [place] [address] * (ABNORMAL) aPTT (11/20/2024 2:58 PM ENGINE DESIGNER) aPTT 68(H) 28 - 38 sec Comment: Interpretive Data Heparin therapeutic range: 66.0 - 100.0 seconds. Range based on correlation with therapeutic heparin activity range of 0.3 - 0.7 Units/mL. Current interpretive data was last revised on 2023. Blood 11/20/2024 2:58 PM ENGINE DESIGNER 11/20/2024 3:24 PM ENGINE DESIGNER Narrative [facility] - 11/20/2024 3:46 PM ENGINE DESIGNER STAT PTT timing: - Draw 6 hours [...] Williamson NP LAB BLOOD ORDERABLES Final Result [facility] Department [place] [address] * (ABNORMAL) POCT glucose (11/20/2024 11:17 AM ENGINE DESIGNER) Glucose, POC 276(H) 70 - 199 mg/dL Blood 11/20/2024 11:1 7 AM ENGINE DESIGNER 11/20/2024 11:17 AM ENGINE DESIGNER Hesham Madsen MD LAB POCT ORDERABLES - DEVICE Final Result Performing Organization Address [facility] Co de Phone Number [facility] Department [place] [address] * (ABNORMAL) aPTT (11/20/2024 8:28 AM ENGINE DESIGNER) aPTT 70(H) 28 - 38 sec Comment: Interpretive Data Heparin therapeutic range: 66.0 - 100.0 seconds. Range based on correlation with therapeutic heparin activity range of 0.3 - 0.7 Units/mL. Current interpretive data was last revised on 2023. Blood 11/20/2024 8:28 AM ENGINE DESIGNER 11/20/2024 9:24 AM ENGINE DESIGNER Narrative [facility] - 11/20/2024 9:46 AM ENGINE DESIGNER STAT PTT timing: - Draw 6 hours [...] BLOOD ORDERABLES Final Result Performing Organization Address [facility] de Phone Number [facility] [place] [address] * Protime-INR (11/20/2024 8:28 AM ENGINE DESIGNER) PT 10.7 9.7 - 13.0 sec INR 0.99 0.90 - 1.20 [facility] Comment: Interpretive data Oral anticoagulant therapeutic ranges: Venous thromboembolism prophylaxis or treatment: 2.0-3.0 CARDIOLOGY Standard range: 2.0-3.0 High-intensity range: 2.5-3.5 Refer to indication-specific guidelines for appropriate target ranges for prosthetic heart valve replacement. Current interpretive data was last revised on 2019. Blood 11/20/2024 8:28 AM ENGINE DESIGNER 11/20/2024 9:24 AM ENGINE DESIGNER Hesham Madsen MD LAB BLOOD ORDERABLES Final R esult Performing Organization Address [facility] de Phone Number [facility] [place] [address] * POCT glucose (11/20/2024 7:44 AM ENGINE DESIGNER) [facility] Glucose, POC 180 70 - 199 mg/dL Blood 11/20/2024 7:44 AM ENGINE DESIGNER 11/20/2024 7:44 AM ENGINE DESIGNER Hesham Madsen MD LAB POCT ORDERABLES - DEVICE Final Result Performing Organization Address [facility] de Phone Number [facility] [place] [address] * (ABNORMAL) Troponin I high-sensitivity 4-hour (11/20/2024 2:16 AM ENGINE DESIGNER) Pathologist [facility] Trop I hs 76(H) <=17 ng/L Comment: Interpretive Data For further hscTnI resources including the diagnostic algorithm and an aid in interpretation, copy and paste this link: https://bjhlab.testcatalog.org/show/hsTrop-1 Current Interpretive Data last revised 2020. Trop I hs delta 7 ng/L [facility] Trop I hs interp Equivocal [facility] Blood 11/20/2024 2:16 AM ENGINE DESIGNER 11/20/2024 2:59 AM ENGINE DESIGNER Hesham Madsen MD LAB BLOOD ORDERABLES Final R esult [facility] Department [place] [address] * (ABNORMAL) CBC without differential (11/20/2024 2:16 AM ENGINE DESIGNER) WBC 9.7 3.8 - 9.9 K/cumm Hgb 10.3(L) 11.9 - 15.5 g/dL [facility] Hct 37.5 35.6 - 45.5 % [facility] Plt 424(H) 150 - 400 K/cumm [facility] MPV 10.4 9.1 - 12.3 fL [facility] RBC 4.61 3.90 - 5.20 M/cumm [facility] MCV 81.3 81.3 - 96.4 fL [facility] MCH 22.3(L) 27.1 - 33.3 pg [facility] MCHC 27.5(L) 32.3 - 35.7 g/dL [facility] RDW CV 24.8(H) 11.1 - 14.9 % [facility] RDW SD 71.2(H) 35.7 - 48.1 fL [facility] NRBC abs 0.03(H) 0.00 - 0.01 K/cumm [facility] Blood 11/20/2024 2:16 AM ENGINE DESIGNER 11/20/2024 2:59 AM ENGINE DESIGNER Hesham Madsen MD LAB BLOOD ORDERABLES Final R esult Performing Organization Address City/[facility] Co de Phone Number [facility] [place] [address] * (ABNORMAL) Troponin I high-sensitivity 2-hour (11/20/2024 12:24 AM ENGINE DESIGNER) Trop I hs 55(H) <=17 ng/L Comment: Reviewed Interpretive Data For further hscTnI resources including the diagnostic algorithm and an aid in interpretation, copy and paste this link: https://bjhlab.testcatalog.org/show/hsTrop-1 Current Interpretive Data last revised 2020. Trop I hs delta -14(C) ng/L [facility] Comment:Reviewed Trop I hs interp Significa nt(C) [facility] Comment:Reviewed Blood 11/20/2024 12:2 4 AM ENGINE DESIGNER 11/20/2024 12:52 AM ENGINE DESIGNER Hesham Madsen MD LAB BLOOD ORDERABLES Final R esult Performing Organization Address [facility] Co de Phone Number [facility] [place] [address] * Critical result callback Cardio chemistry (11/20/2024 12:24 AM ENGINE DESIGNER) Date Notified [id number] Time Notified 156 [facility] Test name Trop I hs 2hr d ALLY WOODARD Called/Read Back Carina Sherine ALLY WOODARD Credentials RN ALLY WOODARD Called By REINA WOODARD Blood 11/20/2024 12:2 4 AM ENGINE DESIGNER 11/20/2024 12:52 AM ENGINE DESIGNER Hesham Madsen MD LAB BLOOD ORDERABLES Final R esult Performing Organization Address City/[facility]/ZIP Co de Phone Number [facility] [place] [address] * eGFR (11/20/2024 12:24 AM ENGINE DESIGNER) eGFR >90 >=60 mL/min/1. 73 m2 Comment: [...] reviewed 2021. Blood 11/20/2024 12:2 4 AM ENGINE DESIGNER 11/20/2024 12:51 AM ENGINE DESIGNER Manisha Williamson NP LAB BLOOD ORDERABLES Final Result ALL[facility] Department [place] [address] * (ABNORMAL) aPTT (11/20/2024 12:24 AM ENGINE DESIGNER) aPTT 45(H) 28 - 38 sec Comment: Interpretive Data Heparin therapeutic range: 66.0 - 100.0 seconds. Range based on correlation with therapeutic heparin activity range of 0.3 - 0.7 Units/mL. Current interpretive data was last revised on 2023. Blood 11/20/2024 12:2 4 AM ENGINE DESIGNER 11/20/2024 12:58 AM ENGINE DESIGNER Narrative [facility] - 11/20/2024 1:07 AM ENGINE DESIGNER STAT PTT timing: - Draw 6 hours [...] Williamson NP LAB BLOOD ORDERABLES Final Result [facility] Department [place] [address] * (ABNORMAL) Basic metabolic panel (11/20/2024 12:24 AM ENGINE DESIGNER) [facility] Signature Sodium 144 135 - 145 mmol/L Potassium, pl 3.8 3.3 - 4.9 mmol/L [facility] Chloride 105 97 - 110 mmol/L [facility] CO2 29 22 - 32 mmol/L [facility] Anion gap 10 2 - 15 mmol/L [facility] BUN 20 6 - 25 mg/dL [facility] Creatinine 0.60 0.60 - 1.10 mg/dL [facility] Glucose 277(H) 70 - 199 mg/dL [facility] Comment: Interpretive Data Fasting glucose >/= 126 [...] 2022. Calcium 8.7 8.5 - 10.3 mg/dL [facility] Blood 11/20/2024 12:2 4 AM ENGINE DESIGNER 11/20/2024 12:51 AM ENGINE DESIGNER Manisha Williamson NP LAB BLOOD ORDERABLES Final Result Performing Organization Address City/[facility] Co de Phone Number [facility] [place] [address] * (ABNORMAL) POCT glucose (11/19/2024 11:01 PM ENGINE DESIGNER) [facility] Glucose, POC 228(H) 70 - 199 mg/dL Blood 11/19/2024 11:0 1 PM ENGINE DESIGNER 11/19/2024 11:01 PM ENGINE DESIGNER Result [facility] Hesham Madsen MD LAB POCT ORDERABLES - DEVICE Final Result Performing Organization Address [facility] de Phone Number [facility] [place] [address] * (ABNORMAL) Troponin I high-sensitivity series (baseline, 2hr, 4hr, 6hr) (11/19/2024 10:15 PM ENGINE DESIGNER) [facility] Trop I hs 69(H) <=17 ng/L Comment: Interpretive Data For further [facility] resources including the diagnostic algorithm and an aid in interpretation, copy and paste this link: https://bjhlab.testcatalog.org/show/[email or web address] Current Interpretive Data last revised 2020. Blood 11/19/2024 10:1 5 PM ENGINE DESIGNER 11/19/2024 10:57 PM ENGINE DESIGNER Result [facility] Hesham Madsen MD LAB BLOOD ORDERABLES Final R esult Performing Organization Address City/[facility] Co de Phone Number [facility] [place] [address] * ECG 12 lead (11/19/2024 10:11 PM ENGINE DESIGNER) [facility] Ventricular Rate EKG/Min 96 BPM [facility] Atrial Rate 96 BPM [facility] MA-Interval (MSEC) 128 ms [facility] QRS-Interval (MSEC) 88 ms [facility] QT-Interval (MSEC) 406 ms [facility] QTc 512 ms [facility] P [place] 101 degrees [facility] R [place] -18 degrees [facility] T [place] 48 degrees [facility] Diagnosis Sinus rhythm with Premature atrial complexes Minimal voltage criteria for LVH, may be normal variant ( R in aVL ) Borderline ECG When compared with ECG of 23-AUG-2024 04:13, No significant change was found Confirmed by JANEEN RICHARDS M.D ([id number]) on 11/22/2024 6:07:10 PM [facility] 11/19/2024 10:1 1 PM ENGINE DESIGNER 11/22/2024 6:07 PM ENGINE DESIGNER Hesham Madsen MD ECG ORDERABLES Final Result Performing Organization Address [facility] de Phone Number [facility] * (ABNORMAL) POCT glucose (11/19/2024 7:20 PM ENGINE DESIGNER) Glucose, POC 218(H) 70 - 199 mg/dL Blood 11/19/2024 7:20 PM ENGINE DESIGNER 11/19/2024 7:20 PM ENGINE DESIGNER Hesham Madsen MD LAB POCT ORDERABLES - DEVICE Final Result Performing Organization Address [facility] de Phone Number [facility] Department [place] [address] * (ABNORMAL) POCT glucose (11/19/2024 4:39 PM ENGINE DESIGNER) Glucose, POC 253(H) 70 - 199 mg/dL Blood 11/19/2024 4:39 PM ENGINE DESIGNER 11/19/2024 4:39 PM ENGINE DESIGNER Hesham Madsen MD LAB POCT ORDERABLES - DEVICE Final Result Performing Organization Address [facility]/ZIP Co de Phone Number [facility] Department [place] [address] * aPTT (11/19/2024 3:39 PM ENGINE DESIGNER) aPTT 32 28 - 38 sec Comment: Interpretive Data Heparin therapeutic range: 66.0 - 100.0 seconds. Range based on correlation with therapeutic heparin activity range of 0.3 - 0.7 Units/mL. Current interpretive data was last revised on 2023. Blood 11/19/2024 3:39 PM ENGINE DESIGNER 11/19/2024 4:31 PM ENGINE DESIGNER Narrative [facility] - 11/19/2024 4:40 PM ENGINE DESIGNER STAT PTT timing: - Draw 6 hours [...] must be drawn peripherally (not from CVC). us Manisha Williamson NP LAB BLOOD ORDERABLES Final Result Performing Organization Address [facility] Co de Phone Number [facility] Department [place] [address] * (ABNORMAL) POCT glucose (11/19/2024 12:05 PM ENGINE DESIGNER) Pathologist [facility] Glucose, POC 289(H) 70 - 199 mg/dL Blood 11/19/2024 12:0 5 PM ENGINE DESIGNER 11/19/2024 12:05 PM ENGINE DESIGNER Hesham Madsen MD LAB POCT ORDERABLES - DEVICE Final Result Performing Organization Address [facility]/ZIP Co de Phone Number [facility] [place] [address] * (ABNORMAL) POCT glucose (11/19/2024 12:03 PM ENGINE DESIGNER) Pathologist [facility] Glucose, POC 335(H) 70 - 199 mg/dL Blood 11/19/2024 12:0 3 PM ENGINE DESIGNER 11/19/2024 12:03 PM ENGINE DESIGNER Hesham Madsen MD LAB POCT ORDERABLES - DEVICE Final Result Performing Organization Address City/[facility] Co de Phone Number [facility] [place] [address] * eGFR (11/19/2024 8:52 AM ENGINE DESIGNER) [facility] eGFR >90 >=60 mL/min/1. 73 m2 Comment: [...] last reviewed 2021. Blood 11/19/2024 8:52 AM ENGINE DESIGNER 11/19/2024 9:45 AM ENGINE DESIGNER us Manisha Williamson NP LAB BLOOD ORDERABLES Final Result Performing Organization Address City/[facility]/ZIP Co de Phone Number [facility] [place] [address] * (ABNORMAL) Differential, auto (11/19/2024 8:52 AM ENGINE DESIGNER) Neutrophil abs 8.8(H) 1.5 - 6.5 K/cumm Imm gran abs 0.2(H) 0.0 - 0.1 K/cumm [facility] Lymphocyte abs 1.3 0.8 - 3.3 K/cumm [facility] Monocyte abs 0.9(H) 0.2 - 0.8 K/cumm [facility] Eosinophil abs 0.0 0.0 - 0.5 K/cumm [facility] Basophil abs 0.0 0.0 - 0.1 K/cumm [facility] Neutrophil pct 79.2 % [facility] Comment: Interpretive Data Percent cell count reference ranges are not reported, since discordance with absolute values may lead to misinterpretation of CBC data. Current Interpretive Data was last revised on 2018. Imm gran pct 1.3 % [facility] Comment: Interpretive Data Percent cell count reference ranges are not reported, since discordance with absolute values may lead to misinterpretation of CBC data. Current Interpretive Data was last revised on 2018. Lymphocyte pct 11.7 % [facility] Comment: Interpretive Data Percent cell count reference ranges are not reported, since discordance with absolute values may lead to misinterpretation of CBC data. Current Interpretive Data was last revised on 2018. Monocyte pct 7.6 % [facility] Comment: Interpretive Data Percent cell count reference ranges are not reported, since discordance with absolute values may lead to misinterpretation of CBC data. Current Interpretive Data was last revised on 2018. Eosinophil pct 0.0 % [facility] Comment: Interpretive Data Percent cell count reference ranges are not reported, since discordance with absolute values may lead to misinterpretation of CBC data. Current Interpretive Data was last revised on 2018. Basophil pct 0.2 % [facility] Comment: Interpretive Data Percent cell count reference ranges are not reported, since discordance with absolute values may lead to misinterpretation of CBC data. Current Interpretive Data was last revised on 2018. Blood 11/19/2024 8:52 AM ENGINE DESIGNER 11/19/2024 9:45 AM ENGINE DESIGNER Manisha Williamson NP LAB BLOOD ORDERABLES Final Result Performing Organization Address [facility] Co de Phone Number [facility] Department [place] [address] * (ABNORMAL) CBC with auto differential (11/19/2024 8:52 AM ENGINE DESIGNER) [facility] WBC 11.2(H) 3.8 - 9.9 K/cumm Hgb 9.8(L) 11.9 - 15.5 g/dL [facility] Hct 36.0 35.6 - 45.5 % [facility] Plt 418(H) 150 - 400 K/cumm [facility] MPV 10.4 9.1 - 12.3 fL [facility] RBC 4.52 3.90 - 5.20 M/cumm [facility] MCV 79.6(L) 81.3 - 96.4 fL [facility] MCH 21.7(L) 27.1 - 33.3 pg [facility] MCHC 27.2(L) 32.3 - 35.7 g/dL [facility] RDW CV 24.7(H) 11.1 - 14.9 % [facility] RDW SD 70.4(H) 35.7 - 48.1 fL [facility] NRBC abs 0.04(H) 0.00 - 0.01 K/cumm [facility] Blood 11/19/2024 8:52 AM ENGINE DESIGNER 11/19/2024 9:45 AM ENGINE DESIGNER Manisha Williamson NP LAB BLOOD ORDERABLES Final Result Performing Organization Address City/[facility]/ZIP Co de Phone Number [facility] [place] [address] * (ABNORMAL) aPTT (11/19/2024 8:52 AM ENGINE DESIGNER) Pathologist [facility] aPTT 27(L) 28 - 38 sec Comment: Interpretive Data Heparin therapeutic range: 66.0 - 100.0 seconds. Range based on correlation with therapeutic heparin activity range of 0.3 - 0.7 Units/mL. Current interpretive data was last revised on 2023. Blood 11/19/2024 8:52 AM ENGINE DESIGNER 11/19/2024 9:50 AM ENGINE DESIGNER Narrative [facility] - 11/19/2024 10:00 AM ENGINE DESIGNER Baseline prior to heparin initiation Manisha Williamson LAB BLOOD ORDERABLES Final Result Performing Organization Address [facility] Co de Phone Number [facility] [place] [address] * Protime-INR (11/19/2024 8:52 AM ENGINE DESIGNER) [facility] PT 10.2 9.7 - 13.0 sec INR 0.95 0.90 - 1.20 [facility] Comment: Interpretive data Oral anticoagulant therapeutic ranges: Venous thromboembolism prophylaxis or treatment: 2.0-3.0 CARDIOLOGY Standard range: 2.0-3.0 High-intensity range: 2.5-3.5 Refer to indication-specific guidelines for appropriate target ranges for prosthetic heart valve replacement. Current interpretive data was last revised on 2019. Blood 11/19/2024 8:52 AM ENGINE DESIGNER 11/19/2024 9:50 AM ENGINE DESIGNER Narrative [facility] - 11/19/2024 10:00 AM ENGINE DESIGNER Baseline prior to heparin initiation Manisha Williamson LAB BLOOD ORDERABLES Final Result Performing Organization Address City/[facility] Co de Phone Number [facility] [place] [address] * (ABNORMAL) Hemoglobin A1c (11/19/2024 8:52 AM ENGINE DESIGNER) [facility] Hgb A1C 6.0(H) 4.0 - 5.6 % Estimated Average Glucose 126 mg/dL [facility] Comment: The ADA recommends reporting an estimated Average Glucose (eAG) with all Hemoglobin A1c results using the equation derived from a study of 507 normal and diabetic adults. Minority populations were underrepresented and children were not included. (Diabetes Care 2020; 43(S1): S66-S76). The eAG is not equivalent to a fasting glucose. Blood 11/19/2024 8:52 AM ENGINE DESIGNER 11/19/2024 9:49 AM ENGINE DESIGNER Narrative [facility] - 11/19/2024 4:17 PM ENGINE DESIGNER reflex Hesham Madsen MD LAB BLOOD ORDERABLES Final R esult [facility] Department [place] [address] * (ABNORMAL) Basic metabolic panel (11/19/2024 8:52 AM ENGINE DESIGNER) Sodium 145 135 - 145 mmol/L Potassium, pl 4.0 3.3 - 4.9 mmol/L [facility] Chloride 104 97 - 110 mmol/L [facility] CO2 30 22 - 32 mmol/L [facility] Anion gap 11 2 - 15 mmol/L [facility] BUN 18 6 - 25 mg/dL [facility] Creatinine 0.52(L) 0.60 - 1.10 mg/dL [facility] Glucose 241(H) 70 - 199 mg/dL [facility] Comment: Interpretive Data Fasting glucose >/= 126 [...] 2022. Calcium 9.4 8.5 - 10.3 mg/dL [facility] Blood 11/19/2024 8:52 AM ENGINE DESIGNER 11/19/2024 9:45 AM ENGINE DESIGNER Manisha Williamson NP LAB BLOOD ORDERABLES Final Result Performing Organization Address City/[facility] Co de Phone Number [facility] [place] [address] * POCT glucose (11/19/2024 7:46 AM ENGINE DESIGNER) Glucose, POC 147 70 - 199 mg/dL Blood 11/19/2024 7:46 AM ENGINE DESIGNER 11/19/2024 7:46 AM ENGINE DESIGNER Hesham Madsen MD LAB POCT ORDERABLES - DEVICE Final Result Performing Organization Address City/[facility] Co de Phone Number [facility] [place] [address] * eGFR (11/19/2024 4:37 AM ENGINE DESIGNER) eGFR >90 >=60 mL/min/1. 73 m2 Comment: [...] last reviewed 2021. Blood 11/19/2024 4:37 AM ENGINE DESIGNER 11/19/2024 5:29 AM ENGINE DESIGNER Hesham Madsen MD LAB BLOOD ORDERABLES Final R esult Performing Organization Address City/[facility] Co de Phone Number [facility] Department [place] [address] * (ABNORMAL) CBC without differential (11/19/2024 4:37 AM ENGINE DESIGNER) WBC 9.2 3.8 - 9.9 K/cumm Hgb 9.0(L) 11.9 - 15.5 g/dL [facility] Hct 32.2(L) 35.6 - 45.5 % [facility] Plt 335 150 - 400 K/cumm [facility] MPV 10.1 9.1 - 12.3 fL [facility] RBC 4.07 3.90 - 5.20 M/cumm [facility] MCV 79.1(L) 81.3 - 96.4 fL [facility] MCH 22.1(L) 27.1 - 33.3 pg [facility] MCHC 28.0(L) 32.3 - 35.7 g/dL [facility] RDW CV 24.2(H) 11.1 - 14.9 % [facility] RDW SD 68.3(H) 35.7 - 48.1 fL [facility] NRBC abs 0.04(H) 0.00 - 0.01 K/cumm [facility] Blood 11/19/2024 4:37 AM ENGINE DESIGNER 11/19/2024 5:29 AM ENGINE DESIGNER Hesham Madsen MD LAB BLOOD ORDERABLES Final R esult [facility] Department [place] [address] * (ABNORMAL) Basic metabolic panel (11/19/2024 4:37 AM ENGINE DESIGNER) Pathologist [facility] Sodium 146(H) 135 - 145 mmol/L Potassium, pl 3.6 3.3 - 4.9 mmol/L [facility] Chloride 105 97 - 110 mmol/L [facility] CO2 32 22 - 32 mmol/L [facility] Anion gap 9 2 - 15 mmol/L [facility] BUN 19 6 - 25 mg/dL [facility] Creatinine 0.51(L) 0.60 - 1.10 mg/dL [facility] Glucose 175 70 - 199 mg/dL [facility] Comment: Interpretive Data Fasting glucose >/= 126 [...] 2022. Calcium 8.8 8.5 - 10.3 mg/dL [facility] Blood 11/19/2024 4:37 AM ENGINE DESIGNER 11/19/2024 5:29 AM ENGINE DESIGNER Hesham Madsen MD LAB BLOOD ORDERABLES Final R esult Performing Organization Address City/[facility]/ZIP Co de Phone Number [facility] [place] [address] * POCT glucose (11/19/2024 2:58 AM ENGINE DESIGNER) [facility] Signature Glucose, POC 179 70 - 199 mg/dL Blood 11/19/2024 2:58 AM ENGINE DESIGNER 11/19/2024 2:58 AM ENGINE DESIGNER Hesham Madsen MD LAB POCT ORDERABLES - DEVICE Final Result Performing Organization Address [facility]/ZIP Co de Phone Number [facility] Department [place] [address] * (ABNORMAL) POCT glucose (11/18/2024 10:55 PM ENGINE DESIGNER) Pathologist [facility] Glucose, POC 234(H) 70 - 199 mg/dL Comment:Glu2: RN/MD Notified Glucose comment 1 Glu2: RN/MD Notified [facility] Blood 11/18/2024 10:5 5 PM ENGINE DESIGNER 11/18/2024 10:55 PM ENGINE DESIGNER Hesham Madsen MD LAB POCT ORDERABLES - DEVICE Final Result Performing Organization Address [facility] Co de Phone Number [facility] Department [place] [address] * POCT glucose (11/18/2024 7:25 PM ENGINE DESIGNER) [facility] Glucose, POC 160 70 - 199 mg/dL Blood 11/18/2024 7:25 PM ENGINE DESIGNER 11/18/2024 7:25 PM ENGINE DESIGNER Hesham Madsen MD LAB POCT ORDERABLES - DEVICE Final Result Performing Organization Address [facility] de Phone Number [facility] Department [place] [address] * (ABNORMAL) Differential, auto (11/18/2024 5:53 PM ENGINE DESIGNER) [facility] Neutrophil abs 8.6(H) 1.5 - 6.5 K/cumm Imm gran abs 0.1 0.0 - 0.1 K/cumm [facility] Lymphocyte abs 1.1 0.8 - 3.3 K/cumm [facility] Monocyte abs 0.8 0.2 - 0.8 K/cumm [facility] Eosinophil abs 0.0 0.0 - 0.5 K/cumm [facility] Basophil abs 0.0 0.0 - 0.1 K/cumm [facility] Neutrophil pct 81.0 % [facility] Comment: Interpretive Data Percent cell count reference ranges are not reported, since discordance with absolute values may lead to misinterpretation of CBC data. Current Interpretive Data was last revised on 2018. Imm gran pct 1.2 % [facility] Comment: Interpretive Data Percent cell count reference ranges are not reported, since discordance with absolute values may lead to misinterpretation of CBC data. Current Interpretive Data was last revised on 2018. Lymphocyte pct 10.2 % [facility] Comment: Interpretive Data Percent cell count reference ranges are not reported, since discordance with absolute values may lead to misinterpretation of CBC data. Current Interpretive Data was last revised on 2018. Monocyte pct 7.4 % [facility] Comment: Interpretive Data Percent cell count reference ranges are not reported, since discordance with absolute values may lead to misinterpretation of CBC data. Current Interpretive Data was last revised on 2018. Eosinophil pct 0.0 % [facility] Comment: Interpretive Data Percent cell count reference ranges are not reported, since discordance with absolute values may lead to misinterpretation of CBC data. Current Interpretive Data was last revised on 2018. Basophil pct 0.2 % [facility] Comment: Interpretive Data Percent cell count reference ranges are not reported, since discordance with absolute values may lead to misinterpretation of CBC data. Current Interpretive Data was last revised on 2018. Blood 11/18/2024 5:53 PM ENGINE DESIGNER 11/18/2024 6:08 PM ENGINE DESIGNER Hesham Madsen MD LAB BLOOD ORDERABLES Final R esult [facility] [place] [address] * (ABNORMAL) CBC with auto differential (11/18/2024 5:53 PM ENGINE DESIGNER) WBC 10.6(H) 3.8 - 9.9 K/cumm Hgb 8.9(L) 11.9 - 15.5 g/dL [facility] Hct 33.2(L) 35.6 - 45.5 % [facility] Plt 341 150 - 400 K/cumm [facility] MPV 9.9 9.1 - 12.3 fL [facility] RBC 4.05 3.90 - 5.20 M/cumm [facility] MCV 82.0 81.3 - 96.4 fL [facility] MCH 22.0(L) 27.1 - 33.3 pg [facility] MCHC 26.8(L) 32.3 - 35.7 g/dL [facility] RDW CV 23.8(H) 11.1 - 14.9 % [facility] RDW SD 71.2(H) 35.7 - 48.1 fL [facility] NRBC abs 0.04(H) 0.00 - 0.01 K/cumm [facility] Blood 11/18/2024 5:53 PM ENGINE DESIGNER 11/18/2024 6:08 PM ENGINE DESIGNER us Hesham Madsen MD LAB BLOOD ORDERABLES Final R esult Performing Organization Address City/[facility]/ZIP Co de Phone Number [facility] [place] [address] * POCT glucose (11/18/2024 4:41 PM ENGINE DESIGNER) [facility] Glucose, POC 195 70 - 199 mg/dL Blood 11/18/2024 4:41 PM ENGINE DESIGNER 11/18/2024 4:41 PM ENGINE DESIGNER Result Stacie Madsen MD LAB POCT ORDERABLES - DEVICE Final Result [facility] [place] [address] * Transfuse RBC (11/18/2024 3:42 PM ENGINE DESIGNER) Blood Result Stacie Madsen MD BLOOD TRANSFUSION ORDERABLES Final Result [facility] [place] [address] * POCT glucose (11/18/2024 2:03 PM ENGINE DESIGNER) Glucose, POC 101 70 - 199 mg/dL Blood 11/18/2024 2:03 PM ENGINE DESIGNER 11/18/2024 2:03 PM ENGINE DESIGNER Hesham Madsen MD LAB POCT ORDERABLES - DEVICE Final Result Performing Organization Address [facility] Co de Phone Number [facility] [place] [address] * POCT glucose (11/18/2024 1:15 PM ENGINE DESIGNER) Glucose, POC 96 70 - 199 mg/dL Blood 11/18/2024 1:15 PM ENGINE DESIGNER 11/18/2024 1:15 PM ENGINE DESIGNER Hesham Madsen MD LAB POCT ORDERABLES - DEVICE Final Result Performing Organization Address [facility] de Phone Number [facility] [place] [address] * POCT glucose (11/18/2024 12:02 PM ENGINE DESIGNER) Glucose, POC 138 70 - 199 mg/dL Blood 11/18/2024 12:0 2 PM ENGINE DESIGNER 11/18/2024 12:02 PM ENGINE DESIGNER Result [facility] Hesham Madsen MD LAB POCT ORDERABLES - DEVICE Final Result Performing Organization Address [facility] [place] [address] * POCT glucose (11/18/2024 11:13 AM ENGINE DESIGNER) Glucose, POC 164 70 - 199 mg/dL Blood 11/18/2024 11:1 3 AM ENGINE DESIGNER 11/18/2024 11:13 AM ENGINE DESIGNER Hesham Madsen MD LAB POCT ORDERABLES - DEVICE Final Result Performing Organization Address [facility] de Phone Number [facility] [place] [address] * Type and screen (11/18/2024 10:26 AM ENGINE DESIGNER) Pathologist [facility], indirect Negative ABO Rh A Positive [facility] Blood 11/18/2024 10:2 6 AM ENGINE DESIGNER 11/18/2024 10:49 AM ENGINE DESIGNER Narrative [facility] - 11/18/2024 11:56 AM ENGINE DESIGNER Has the patient had Daratumumab or Isatuximab in the past 6 months?->Unknown Hesham Madsen MD LAB BLOOD BANK TEST ORDERABL ES Final Result Performing Organization Address [facility] de Phone Number [facility] [place] [address] * (ABNORMAL) POCT glucose (11/18/2024 10:13 AM ENGINE DESIGNER) [facility] Glucose, POC 207(H) 70 - 199 mg/dL Blood 11/18/2024 10:1 3 AM ENGINE DESIGNER 11/18/2024 10:13 AM ENGINE DESIGNER Hesham Madsen MD LAB POCT ORDERABLES - DEVICE Final Result Performing Organization Address [facility] de Phone Number [facility] [place] [address] * Prepare RBC: 1 Units (11/18/2024 9:58 AM ENGINE DESIGNER) [facility] Product code [id number] Unit Number [id number] [facility] Product Blood Type APOS [facility] Dispense Status PRESUMED TRANSFUSED [facility] Blood 11/18/2024 9:58 AM ENGINE DESIGNER 11/18/2024 9:58 AM ENGINE DESIGNER Narrative [facility] - 11/19/2024 12:56 AM ENGINE DESIGNER Are special requirements needed? (All products are leukoreduced and CMV- safe)- >No Date required:-[id number] LRRBC # of Rtzse-[id number]-Culpt Reasons:-Cardiovascular disease, Hgb <8 g/dL} Hesham Madsen MD BLOOD BANK PRODUCT ORDERABLE S Final Result [facility] [place] [address] * (ABNORMAL) POC Blood Gas and Chemistries, Arterial - (11/18/2024 9:39 AM ENGINE DESIGNER) pH, Art POC 7.51(H) 7.35 - 7.45 pCO2, Art POC 36 35 - 45 mmHg [facility] pO2, Art POC 122(H) 83 - 108 mmHg [facility] Na, POC 140 135 - 145 mmol/L [facility] K POC 4.3 3.3 - 4.9 mmol/L [facility] Comment: Interpretive Data Not all point of care methods assess for hemolysis. Confirm with instrument and retest K+ if not consistent with clinical signs and symptoms. Current Interpretive Data was last revised on 2024. Cl, POC 108 97 - 110 mmol/L [facility] Ionized Ca, POC 4.82 4.50 - 5.10 mg/dL [facility] Glucose, POC 197 70 - 199 mg/dL [facility] Lactate, POC 2.1(H) 0.7 - 2.0 mmol/L [facility] SO2 (jesus alberto) arterial 99(H) 90 - 95 % [facility] Base excess, POC 5.3 mmol/L [facility] HCO3, Art POC 29 20 - 30 mmol/L [facility] Hct, POC 23.0(L) 36.3 - 45.3 % [facility] Total Hb, POC 7.6(L) 11.9 - 15.5 g/dL [facility] Blood 11/18/2024 9:39 AM ENGINE DESIGNER 11/18/2024 9:39 AM ENGINE DESIGNER Hesham Madsen MD LAB POCT ORDERABLES - DEVICE Final Result [facility] [place] [address] * MA AN PROCEDURE PLACEHOLDER (11/18/2024 9:01 AM ENGINE DESIGNER) Dwight Staton CRNA - 11/18/2024 9:01 AM ENGINE DESIGNER Dwight Quintero CRNA 11/18/2024 9:01 AM Peripheral IV Catheter Patient location: pre-op holding Staff: Placed by: DULITE MACHINE BLUER: Dwight Quintero CRNA Preprocedure prep: Prep solution: chlorhexadine PPE: gloves and provider hat/mask PIV line: Laterality: right Site: forearm Catheter size: 22 g Technique: anatomical landmarks and direct visualization Procedure details: good blood return and occlusive dressing applied Number of attempts: 1 Assessment: Events: patient tolerated procedure well with no complications Result [facility] Elba Medina MD PhD ANESTHESIA ORDERABLES Final R esult * MA AN PROCEDURE PLACEHOLDER (11/18/2024 9:01 AM ENGINE DESIGNER) Dwight Staton CRNA - 11/18/2024 9:01 AM Dwight Thomas CRNA 11/18/2024 9:01 AM Peripheral IV Catheter [...] patient tolerated procedure well with no complications Elba Medina MD PhD ANESTHESIA ORDERABLES Final R esult * MA AN ELECTIVE ENDOTRACHEAL AIRWAY, MA AN PROCEDURE PLACEHOLDER (11/18/2024 9:00 AM ENGINE DESIGNER) Dwight Staton CRNA - 11/18/2024 9:00 AM ENGINE DESIGNER Dwight Quintero CRNA 11/18/2024 9:01 AM Airway Patient location: OR Urgency: elective Indications for airway management: anesthesia and airway protection Difficult airway: no Staff: Supervising provider: Elba Medina MD PhD Placed by: DULITE MACHINE BLUER: Dwight Quintero CRNA Emergent airway documentation: Risks [...] * (ABNORMAL) POCT glucose (11/18/2024 8:48 AM ENGINE DESIGNER) Glucose, POC 239(H) 70 - 199 mg/dL Blood 11/18/2024 8:48 AM ENGINE DESIGNER 11/18/2024 8:48 AM ENGINE DESIGNER us Hesham Madsen MD LAB POCT ORDERABLES - DEVICE Final Result [facility] Department [place] [address] * POCT glucose (11/18/2024 6:37 AM ENGINE DESIGNER) Glucose, POC 183 70 - 199 mg/dL Blood 11/18/2024 6:37 AM ENGINE DESIGNER 11/18/2024 6:37 AM ENGINE DESIGNER us Hesham Madsen MD LAB POCT ORDERABLES - DEVICE Final Result [facility] [place] [address] * (ABNORMAL) POCT glucose (11/17/2024 11:48 AM ENGINE DESIGNER) Glucose, POC 320(H) 70 - 199 mg/dL Blood 11/17/2024 11:4 8 AM ENGINE DESIGNER 11/17/2024 11:48 AM ENGINE DESIGNER Jaylene Huang MD LAB POCT ORDERABLES - DEVICE Final Result Performing Organization Address [facility] Co de Phone Number [facility] ([place]) [facility] [place] [address] * POCT glucose (11/17/2024 7:55 AM ENGINE DESIGNER) Glucose, POC 189 70 - 199 mg/dL Blood 11/17/2024 7:55 AM ENGINE DESIGNER 11/17/2024 7:55 AM ENGINE DESIGNER Jaylene Huang MD LAB POCT ORDERABLES - DEVICE Final Result Performing Organization Address [facility] Co de Phone Number [facility] ([place]) [facility] [place] [address] * eGFR (11/17/2024 2:31 AM ENGINE DESIGNER) eGFR >90 >=60 mL/min/1. 73 m2 Comment: [...] last reviewed 2021. Blood 11/17/2024 2:31 AM ENGINE DESIGNER 11/17/2024 2:50 AM ENGINE DESIGNER us Jaylene Huang MD LAB BLOOD ORDERABLES Final Re sult [facility] ([place]) 1 [facility] Department [place] [address] * (ABNORMAL) Basic metabolic panel (11/17/2024 2:31 AM ENGINE DESIGNER) Sodium 143 135 - 145 mmol/L Potassium, [...] ([place]) Glucose 177 70 - 199 mg/dL [facility] ([place]) [...] 2022. Calcium 9.5 8.5 - 10.3 mg/dL [facility] ([place]) Blood 11/17/2024 2:31 AM ENGINE DESIGNER 11/17/2024 2:50 AM ENGINE DESIGNER Jaylene Huang MD LAB BLOOD ORDERABLES Final Re sult Performing Organization Address City/[facility]/ZIP Co de Phone Number [facility] ([place]) [facility] [place] [address] * POCT glucose (11/17/2024 1:38 AM ENGINE DESIGNER) Glucose, POC 175 70 - 199 mg/dL Blood 11/17/2024 1:38 AM ENGINE DESIGNER 11/17/2024 1:38 AM ENGINE DESIGNER Jaylene Huang MD LAB POCT ORDERABLES - DEVICE Final Result Performing Organization Address [facility]/ZIP Co de Phone Number [facility] ([place]) 1 [facility] [place] [address] * (ABNORMAL) POCT glucose (11/16/2024 8:33 PM ENGINE DESIGNER) Glucose, POC 217(H) 70 - 199 mg/dL Blood 11/16/2024 8:33 PM ENGINE DESIGNER 11/16/2024 8:33 PM ENGINE DESIGNER Jaylene Huang MD LAB POCT ORDERABLES - DEVICE Final Result Performing Organization Address City/[facility]/ZIP Co de Phone Number [facility] ([place]) [address] [facility] [place] [address] * POCT glucose (11/16/2024 4:29 PM ENGINE DESIGNER) Glucose, POC 198 70 - 199 mg/dL Blood 11/16/2024 4:29 PM ENGINE DESIGNER 11/16/2024 4:29 PM ENGINE DESIGNER Jaylene Huang MD LAB POCT ORDERABLES - DEVICE Final Result Performing Organization Address City/[facility]/ZIP Co de Phone Number [facility] ([place]) 1 [facility] [place] [address] * COVID-19 Coronavirus RNA Nasopharyngeal (11/16/2024 12:37 PM ENGINE DESIGNER) COVID-19 RNA Negative Negative Nasopharyngeal 11/16/2024 12 :37 PM ENGINE DESIGNER 11/16/2024 12:46 PM ENGINE DESIGNER Narrative [facility] ([place]) - 11/16/2024 1:27 PM ENGINE DESIGNER Is the patient experiencing any symptoms consistent with COVID (eg. Fever, cough, shortness of breath)?->No What is the reason for testing?->Screening for post-acute care placement Interpretive data: Testing performed by [facility]. This test is performed using the [employer] Xpert Xpress CoV-2 plus assay. This is a real-time RT-PCR test intended for the qualitative detection of nucleic acid from the SARS-CoV-2. This assay has been cleared by the [place] Food and Drug administration. The performance characteristics have been verified by [facility]. Results must be considered in the clinical context, and a negative result does not rule out infection. Interpretive data last revised 2024. Interpretive data: Testing performed by [facility]. This test is performed using the [employer] Xpert Xpress CoV-2 plus assay. This is a real-time RT-PCR test intended for the qualitative detection of nucleic acid from the SARS-CoV-2. This assay has been cleared by the [place] Food and Drug administration. The performance characteristics have been verified by [facility]. Results must be considered in the clinical context, and a negative result does not rule out infection. Interpretive data last revised 2024. Jaylene Huang MD LAB MICROBIOLOGY - GENERAL OR DERABLES Final Result [facility] ([place]) 1 [facility] Department [place] [address] * (ABNORMAL) POCT glucose (11/16/2024 11:37 AM ENGINE DESIGNER) Glucose, POC 221(H) 70 - 199 mg/dL Blood 11/16/2024 11:3 7 AM ENGINE DESIGNER 11/16/2024 11:37 AM ENGINE DESIGNER us Jaylene Huang MD LAB POCT ORDERABLES - DEVICE Final Result Performing Organization Address City/[facility]/ZIP Co de Phone Number [facility] ([place]) 1 [facility] [place] [address] * POCT glucose (11/16/2024 8:06 AM ENGINE DESIGNER) Glucose, POC 181 70 - 199 mg/dL Blood 11/16/2024 8:06 AM ENGINE DESIGNER 11/16/2024 8:06 AM ENGINE DESIGNER us Jaylene Huang MD LAB POCT ORDERABLES - DEVICE Final Result Performing Organization Address [facility]/ZIP Co de Phone Number [facility] ([place]) [address] [facility] [place] [address] * (ABNORMAL) POCT glucose (11/16/2024 1:44 AM ENGINE DESIGNER) Glucose, POC 261(H) 70 - 199 mg/dL Blood 11/16/2024 1:44 AM ENGINE DESIGNER 11/16/2024 1:44 AM ENGINE DESIGNER us Jaylene Huang MD LAB POCT ORDERABLES - DEVICE Final Result Performing Organization Address City/[facility]/ZIP Co de Phone Number [facility] ([place]) [address] [facility] [place] [address] * POCT glucose (11/15/2024 8:17 PM ENGINE DESIGNER) Glucose, POC 94 70 - 199 mg/dL Blood 11/15/2024 8:17 PM ENGINE DESIGNER 11/15/2024 8:17 PM ENGINE DESIGNER us Jaylene Huang MD LAB POCT ORDERABLES - DEVICE Final Result [facility] ([place]) [address] [facility] [place] [address] * (ABNORMAL) POCT glucose (11/15/2024 5:06 PM ENGINE DESIGNER) Glucose, POC 221(H) 70 - 199 mg/dL Blood 11/15/2024 5:06 PM ENGINE DESIGNER 11/15/2024 5:06 PM ENGINE DESIGNER us Jaylene Huang MD LAB POCT ORDERABLES - DEVICE Final Result Performing Organization Address [facility] Co de Phone Number [facility] ([place]) [address] [facility] [place] [address] * (ABNORMAL) POCT glucose (11/15/2024 11:45 AM ENGINE DESIGNER) Glucose, POC 324(H) 70 - 199 mg/dL Blood 11/15/2024 11:4 5 AM ENGINE DESIGNER 11/15/2024 11:45 AM ENGINE DESIGNER us Jaylene Huang MD LAB POCT ORDERABLES - DEVICE Final Result Performing Organization Address City/[facility]/ZIP Co de Phone Number [facility] ([place]) [address] [facility] [place] [address] * (ABNORMAL) POCT glucose (11/15/2024 8:08 AM ENGINE DESIGNER) Glucose, POC 340(H) 70 - 199 mg/dL Blood 11/15/2024 8:08 AM ENGINE DESIGNER 11/15/2024 8:08 AM ENGINE DESIGNER us Jaylene Huang MD LAB POCT ORDERABLES - DEVICE Final Result Performing Organization Address City/[facility]/ZIP Co de Phone Number [facility] ([place]) 1 [facility] [place] [address] * (ABNORMAL) Potassium (11/15/2024 5:04 AM ENGINE DESIGNER) Potassium, pl 3.2(L) 3.3 - 4.9 mmol/L Blood 11/15/2024 5:04 AM ENGINE DESIGNER 11/15/2024 5:55 AM ENGINE DESIGNER Jaylene Huang MD LAB BLOOD ORDERABLES Final Re sult [facility] ([place]) 1 [place] [address] * Magnesium (11/15/2024 5:04 AM ENGINE DESIGNER) Magnesium 2.0 1.4 - 2.5 mg/dL Blood 11/15/2024 5:04 AM ENGINE DESIGNER 11/15/2024 5:55 AM ENGINE DESIGNER us Jaylene Huang MD LAB BLOOD ORDERABLES Final Re sult [facility] ([place]) 1 [facility] [place] [address] * POCT glucose (11/15/2024 4:01 AM ENGINE DESIGNER) Glucose, POC 135 70 - 199 mg/dL Blood 11/15/2024 4:01 AM ENGINE DESIGNER 11/15/2024 4:01 AM ENGINE DESIGNER Jaylene Huang MD LAB POCT ORDERABLES - DEVICE Final Result [facility] ([place]) [address] [facility] [place] [address] * POCT glucose (11/15/2024 1:51 AM ENGINE DESIGNER) Glucose, POC 170 70 - 199 mg/dL Blood 11/15/2024 1:51 AM ENGINE DESIGNER 11/15/2024 1:51 AM ENGINE DESIGNER us Jaylene Huang MD LAB POCT ORDERABLES - DEVICE Final Result [facility] ([place]) 1 [facility] [place] [address] * POCT glucose (11/14/2024 8:08 PM ENGINE DESIGNER) Glucose, POC 122 70 - 199 mg/dL Blood 11/14/2024 8:08 PM ENGINE DESIGNER 11/14/2024 8:08 PM ENGINE DESIGNER us Jaylene Huang MD LAB POCT ORDERABLES - DEVICE Final Result Performing Organization Address [facility]/ZIP Co de Phone Number [facility] ([place]) [address] [facility] [place] [address] * (ABNORMAL) POCT glucose (11/14/2024 4:53 PM ENGINE DESIGNER) Glucose, POC 334(H) 70 - 199 mg/dL Blood 11/14/2024 4:53 PM ENGINE DESIGNER 11/14/2024 4:53 PM ENGINE DESIGNER us Jaylene Huang MD LAB POCT ORDERABLES - DEVICE Final Result Performing Organization Address City/[facility]/ZIP Co de Phone Number [facility] ([place]) [address] [facility] [place] [address] * (ABNORMAL) POCT glucose (11/14/2024 12:17 PM ENGINE DESIGNER) Glucose, POC 256(H) 70 - 199 mg/dL Blood 11/14/2024 12:1 7 PM ENGINE DESIGNER 11/14/2024 12:17 PM ENGINE DESIGNER us Jaylene Huang MD LAB POCT ORDERABLES - DEVICE Final Result [facility] ([place]) 1 [place] [address] * POCT glucose (11/14/2024 7:56 AM ENGINE DESIGNER) Glucose, POC 191 70 - 199 mg/dL Blood 11/14/2024 7:56 AM ENGINE DESIGNER 11/14/2024 7:56 AM ENGINE DESIGNER us Jaylene Huang MD LAB POCT ORDERABLES - DEVICE Final Result [facility] ([place]) 1 [place] [address] * (ABNORMAL) POCT glucose (11/14/2024 2:49 AM ENGINE DESIGNER) Glucose, POC 276(H) 70 - 199 mg/dL Blood 11/14/2024 2:49 AM ENGINE DESIGNER 11/14/2024 2:49 AM ENGINE DESIGNER us Jaylene Huang MD LAB POCT ORDERABLES - DEVICE Final Result [facility] ([place]) [address] [facility] [place] [address] * (ABNORMAL) POCT glucose (11/13/2024 8:19 PM ENGINE DESIGNER) Glucose, POC 204(H) 70 - 199 mg/dL Blood 11/13/2024 8:19 PM ENGINE DESIGNER 11/13/2024 8:19 PM ENGINE DESIGNER Jaylene Huang MD LAB POCT ORDERABLES - DEVICE Final Result [facility] ([place]) 1 [place] [address] * POCT glucose (11/13/2024 4:52 PM ENGINE DESIGNER) Glucose, POC 192 70 - 199 mg/dL Blood 11/13/2024 4:52 PM ENGINE DESIGNER 11/13/2024 4:52 PM ENGINE DESIGNER us Jaylene Huang MD LAB POCT ORDERABLES - DEVICE Final Result Performing Organization Address City/[facility]/ZIP Co de Phone Number [facility] ([place]) [address] [facility] [place] [address] * (ABNORMAL) POCT glucose (11/13/2024 11:52 AM ENGINE DESIGNER) Glucose, POC 227(H) 70 - 199 mg/dL Blood 11/13/2024 11:5 2 AM ENGINE DESIGNER 11/13/2024 11:52 AM ENGINE DESIGNER us Jaylene Huang MD LAB POCT ORDERABLES - DEVICE Final Result Performing Organization Address [facility] Co de Phone Number [facility] ([place]) [address] [facility] [place] [address] * (ABNORMAL) POCT glucose (11/13/2024 7:55 AM ENGINE DESIGNER) Glucose, POC 282(H) 70 - 199 mg/dL Blood 11/13/2024 7:55 AM ENGINE DESIGNER 11/13/2024 7:55 AM ENGINE DESIGNER us Jaylene Huang MD LAB POCT ORDERABLES - DEVICE Final Result Performing Organization Address City/[facility] Co de Phone Number [facility] ([place]) [address] [facility] [place] [address] * (ABNORMAL) POCT glucose (11/13/2024 1:40 AM ENGINE DESIGNER) Glucose, POC 308(H) 70 - 199 mg/dL Blood 11/13/2024 1:40 AM ENGINE DESIGNER 11/13/2024 1:40 AM ENGINE DESIGNER Jaylene Huang MD LAB POCT ORDERABLES - DEVICE Final Result [facility] ([place]) [address] [facility] [place] [address] * (ABNORMAL) POCT glucose (11/12/2024 8:24 PM ENGINE DESIGNER) Glucose, POC 293(H) 70 - 199 mg/dL Blood 11/12/2024 8:24 PM ENGINE DESIGNER 11/12/2024 8:24 PM ENGINE DESIGNER us Jaylene Huang MD LAB POCT ORDERABLES - DEVICE Final Result [facility] ([place]) [address] [facility] [place] [address] * (ABNORMAL) POCT glucose (11/12/2024 5:12 PM ENGINE DESIGNER) Glucose, POC 331(H) 70 - 199 mg/dL Blood 11/12/2024 5:12 PM ENGINE DESIGNER 11/12/2024 5:12 PM ENGINE DESIGNER us Jaylene Huang MD LAB POCT ORDERABLES - DEVICE Final Result Performing Organization Address City/[facility]/ZIP Co de Phone Number [facility] ([place]) [address] [facility] [place] [address] * (ABNORMAL) POCT glucose (11/12/2024 11:59 AM ENGINE DESIGNER) Glucose, POC 299(H) 70 - 199 mg/dL Blood 11/12/2024 11:5 9 AM ENGINE DESIGNER 11/12/2024 11:59 AM ENGINE DESIGNER Jaylene Huang MD LAB POCT ORDERABLES - DEVICE Final Result [facility] ([place]) [address] [facility] [place] [address] * (ABNORMAL) POCT glucose (11/12/2024 8:30 AM ENGINE DESIGNER) [facility] Glucose, POC 246(H) 70 - 199 mg/dL Blood 11/12/2024 8:30 AM ENGINE DESIGNER 11/12/2024 8:30 AM ENGINE DESIGNER us Jaylene Huang MD LAB POCT ORDERABLES - DEVICE Final Result Performing Organization Address City/[facility]/ZIP Co de Phone Number [facility] ([place]) [address] [place] [address] [place] [address] * eGFR (11/12/2024 3:07 AM ENGINE DESIGNER) [facility] eGFR >90 >=60 mL/min/1. 73 m2 Comment: [...] last reviewed 2021. Blood 11/12/2024 3:07 AM ENGINE DESIGNER 11/12/2024 3:48 AM ENGINE DESIGNER us Sanjeev Gonzales MD LAB BLOOD ORDERABLES Final Resu lt Performing Organization Address City/[facility]/ZIP Co de Phone Number [facility] ([place]) 1 [facility] Department [place] [address] * Differential, auto (11/12/2024 3:07 AM ENGINE DESIGNER) Neutrophil abs 6.3 1.5 - 6.5 K/cumm [...] revised on 2018. Blood 11/12/2024 3:07 AM ENGINE DESIGNER 11/12/2024 3:46 AM ENGINE DESIGNER us Sanjeev Gonzales MD LAB BLOOD ORDERABLES Final Resu lt [facility] ([place]) 1 [facility] Department [place] [address] * (ABNORMAL) CBC with auto differential (11/12/2024 3:07 AM ENGINE DESIGNER) Pathologist [facility] WBC 8.7 3.8 - 9.9 K/cumm Hgb [...] [facility] ([place]) Blood 11/12/2024 3:07 AM ENGINE DESIGNER 11/12/2024 3:46 AM ENGINE DESIGNER Sanjeev Gonzales MD LAB BLOOD ORDERABLES Final Resu lt [facility] ([place]) 1 [facility] Department [place] [address] * Magnesium (11/12/2024 3:07 AM ENGINE DESIGNER) Magnesium 2.3 1.4 - 2.5 mg/dL Blood 11/12/2024 3:07 AM ENGINE DESIGNER 11/12/2024 3:48 AM ENGINE DESIGNER us Sanjeev Gonzales MD LAB BLOOD ORDERABLES Final Resu lt [facility] ([place]) 1 [facility] [place] [address] * (ABNORMAL) Comprehensive metabolic panel (11/12/2024 3:07 AM ENGINE DESIGNER) Sodium 137 135 - 145 mmol/L Potassium, pl 3.8 3.3 - 4.9 mmol/L [facility] ([place]) Chloride 97 97 - 110 mmol/L [facility] ([place]) CO2 26 22 - 32 mmol/L [facility] ([place]) Anion gap 14 2 - 15 mmol/L [facility] ([place]) BUN 28(H) 6 - 25 mg/dL [facility] ([place]) Creatinine 0.47(L) 0.60 - 1.10 mg/dL [facility] ([place]) Glucose 363(H) 70 - 199 [...] Alk phos 63 40 - 130 Units/L [facility] ([place]) ALT 29 7 - 45 Units/L [facility] ([place]) AST 19 10 - 45 Units/L [facility] ([place]) Blood 11/12/2024 3:07 AM ENGINE DESIGNER 11/12/2024 3:48 AM ENGINE DESIGNER us Sanjeev Gonzales MD LAB BLOOD ORDERABLES Final Resu lt [facility] ([place]) 1 [facility] [place] [address] * (ABNORMAL) POCT glucose (11/12/2024 2:49 AM ENGINE DESIGNER) Glucose, POC 371(H) 70 - 199 mg/dL Comment:Glu2: RAMYA/ Notified Blood 11/12/2024 2:49 AM ENGINE DESIGNER 11/12/2024 2:49 AM ENGINE DESIGNER us Jaylene Huang MD LAB POCT ORDERABLES - DEVICE Final Result Performing Organization Address [facility] Co de Phone Number [facility] ([place]) 1 [facility] [place] [address] * (ABNORMAL) POCT glucose (11/11/2024 8:20 PM ENGINE DESIGNER) Glucose, POC 277(H) 70 - 199 mg/dL Comment:Glu2: RAMYA/ Notified Blood 11/11/2024 8:20 PM ENGINE DESIGNER 11/11/2024 8:20 PM ENGINE DESIGNER us Jaylene Huang MD LAB POCT ORDERABLES - DEVICE Final Result Performing Organization Address City/[facility]/ZIP Co de Phone Number [facility] ([place]) 1 [facility] [place] [address] * POCT glucose (11/11/2024 5:18 PM ENGINE DESIGNER) Glucose, POC 188 70 - 199 mg/dL Blood 11/11/2024 5:18 PM ENGINE DESIGNER 11/11/2024 5:18 PM ENGINE DESIGNER us Jaylene Huang MD LAB POCT ORDERABLES - DEVICE Final Result Performing Organization Address [facility] Co de Phone Number [facility] ([place]) 1 [facility] [place] [address] * (ABNORMAL) POCT glucose (11/11/2024 2:40 PM ENGINE DESIGNER) Glucose, POC 296(H) 70 - 199 mg/dL Blood 11/11/2024 2:40 PM ENGINE DESIGNER 11/11/2024 2:40 PM ENGINE DESIGNER Jaylene Huang MD LAB POCT ORDERABLES - DEVICE Final Result Performing Organization Address [facility] de Phone Number ALLY CUM[facility] ([place]) [address] [facility] [place] [address] * (ABNORMAL) POCT glucose (11/11/2024 11:44 AM ENGINE DESIGNER) Glucose, POC 388(H) 70 - 199 mg/dL Blood 11/11/2024 11:4 4 AM ENGINE DESIGNER 11/11/2024 11:44 AM ENGINE DESIGNER Jaylene Huang MD LAB POCT ORDERABLES - DEVICE Final Result Performing Organization Address [facility] Co de Phone Number [facility] ([place]) [address] [facility] [place] [address] * (ABNORMAL) POCT glucose (11/11/2024 8:18 AM ENGINE DESIGNER) Glucose, POC 245(H) 70 - 199 mg/dL Blood 11/11/2024 8:18 AM ENGINE DESIGNER 11/11/2024 8:18 AM ENGINE DESIGNER Jaylene Huang MD LAB POCT ORDERABLES - DEVICE Final Result Performing Organization Address [facility] Co de Phone Number [facility] ([place]) [address] [facility] [place] [address] * (ABNORMAL) POCT glucose (11/11/2024 3:46 AM ENGINE DESIGNER) Glucose, POC 296(H) 70 - 199 mg/dL Blood 11/11/2024 3:46 AM ENGINE DESIGNER 11/11/2024 3:46 AM ENGINE DESIGNER Jaylene Huang MD LAB POCT ORDERABLES - DEVICE Final Result Performing Organization Address [facility] Co de Phone Number [facility] ([place]) [address] [facility] [place] [address] * eGFR (11/11/2024 2:16 AM ENGINE DESIGNER) eGFR >90 >=60 mL/min/1. 73 m2 Comment: [...] last reviewed 2021. Blood 11/11/2024 2:16 AM ENGINE DESIGNER 11/11/2024 2:42 AM ENGINE DESIGNER Sanjeev Gonzales MD LAB BLOOD ORDERABLES Final Resu lt [facility] ([place]) 1 [facility] Department [place] [address] * Differential, auto (11/11/2024 2:16 AM ENGINE DESIGNER) Neutrophil abs 5.4 1.5 - 6.5 K/cumm [...] Neutrophil pct 70.0 % [facility] ([place]) Comment: Interpretive Data Percent cell count reference ranges are not reported, since discordance with absolute values may lead to misinterpretation of CBC data. Current Interpretive Data was last revised on 2018. Imm gran pct 1.2 % [facility] ([place]) Comment: Interpretive Data Percent cell count reference [...] Eosinophil pct 0.4 % [facility] ([place]) Comment: Interpretive Data Percent cell count reference [...] revised on 2018. Blood 11/11/2024 2:16 AM ENGINE DESIGNER 11/11/2024 2:41 AM ENGINE DESIGNER Sanjeev Gonzales MD LAB BLOOD ORDERABLES Final Resu lt [facility] ([place]) 1 [facility] Department [place] [address] * (ABNORMAL) CBC with auto differential (11/11/2024 2:16 AM ENGINE DESIGNER) WBC 7.7 3.8 - 9.9 K/cumm Hgb 8.6(L) 11.9 - 15.5 g/dL [facility] ([place]) Hct 33.8(L) 35.6 - 45.5 % [facility] ([place]) Plt 344 150 - 400 K/cumm [facility] ([place]) MPV 9.8 9.1 - 12.3 fL [facility] ([place]) RBC 4.21 3.90 - 5.20 M/cumm [facility] ([place]) MCV 80.3(L) 81.3 - 96.4 fL [facility] ([place]) MCH 20.4(L) 27.1 - 33.3 pg [facility] ([place]) MCHC 25.4(L) 32.3 - 35.7 g/dL [facility] ([place]) RDW CV 28.7(H) 11.1 - 14.9 % [facility] ([place]) RDW SD 79.5(H) 35.7 - 48.1 fL [facility] ([place]) NRBC abs 0.06(H) 0.00 - 0.01 K/cumm [facility] ([place]) Blood 11/11/2024 2:16 AM ENGINE DESIGNER 11/11/2024 2:41 AM ENGINE DESIGNER Sanjeev Gonzales MD LAB BLOOD ORDERABLES Final Resu lt [facility] ([place]) 1 [facility] Department [place] [address] * Magnesium (11/11/2024 2:16 AM ENGINE DESIGNER) Pathologist [facility] Magnesium 2.4 1.4 - 2.5 mg/dL Blood 11/11/2024 2:16 AM ENGINE DESIGNER 11/11/2024 2:42 AM ENGINE DESIGNER Sanjeev Gonzales MD LAB BLOOD ORDERABLES Final Resu lt Performing Organization Address City/[facility]/ZIP Co de Phone Number [facility] ([place]) 1 [facility] [place] [address] * (ABNORMAL) Comprehensive metabolic panel (11/11/2024 2:16 AM ENGINE DESIGNER) Sodium 139 135 - 145 mmol/L Potassium, [...] 6.4(L) 6.5 - 8.5 g/dL [facility] ([place]) Albumin 4.6 3.5 - 5.0 g/dL [facility] ([place]) Alk phos 66 40 - 130 Units/L [facility] ([place]) ALT 24 7 - 45 Units/L [facility] ([place]) AST 16 10 - 45 Units/L [facility] ([place]) Blood 11/11/2024 2:16 AM ENGINE DESIGNER 11/11/2024 2:42 AM ENGINE DESIGNER us Sanjeev Gonzales MD LAB BLOOD ORDERABLES Final Resu lt Performing Organization Address City/[facility]/ZIP Co de Phone Number [facility] ([place]) 1 [facility] [place] [address] * (ABNORMAL) POCT glucose (11/11/2024 1:41 AM ENGINE DESIGNER) Glucose, POC 330(H) 70 - 199 mg/dL Blood 11/11/2024 1:41 AM ENGINE DESIGNER 11/11/2024 1:41 AM ENGINE DESIGNER us Jaylene Huang MD LAB POCT ORDERABLES - DEVICE Final Result Performing Organization Address [facility]/ZIP Co de Phone Number [facility] ([place]) 1 [facility] [place] [address] * (ABNORMAL) POCT glucose (11/10/2024 8:50 PM ENGINE DESIGNER) Glucose, POC 286(H) 70 - 199 mg/dL Blood 11/10/2024 8:50 PM ENGINE DESIGNER 11/10/2024 8:50 PM ENGINE DESIGNER us Jaylene Huang MD LAB POCT ORDERABLES - DEVICE Final Result Performing Organization Address City/[facility]/ZIP Co de Phone Number [facility] ([place]) 1 [place] [address] * (ABNORMAL) POCT glucose (11/10/2024 4:52 PM ENGINE DESIGNER) Glucose, POC 219(H) 70 - 199 mg/dL Blood 11/10/2024 4:52 PM ENGINE DESIGNER 11/10/2024 4:52 PM ENGINE DESIGNER Jaylene Huang MD LAB POCT ORDERABLES - DEVICE Final Result [facility] ([place]) 1 [place] [address] * (ABNORMAL) POCT glucose (11/10/2024 11:57 AM ENGINE DESIGNER) Glucose, POC 303(H) 70 - 199 mg/dL Blood 11/10/2024 11:5 7 AM ENGINE DESIGNER 11/10/2024 11:57 AM ENGINE DESIGNER us Jaylene Huang MD LAB POCT ORDERABLES - DEVICE Final Result Performing Organization Address [facility] Co de Phone Number [facility] ([place]) [address] [place] [id number] * TRANSTHORACIC ECHO (TTE) LIMITED/FOLLOW UP WO DOPPLER/CF W CONTRAST (11/10/2024 9:50 AM ENGINE DESIGNER) [facility] LV EF 15 % CONS SCIMAGE Anatomical Region Laterality Modality Ultrasound 11/10/2024 9:09 AM ENGINE DESIGNER Narrative 11/10/2024 11:03 AM ENGINE DESIGNER [address] [address] Limited Echocardiogram Report Patient Name: AGUSTIN GOMEZ D : 1965 Study Date: 11/10/2024 9:09:45 AM Gender: F Tech: AA Location: [id number] Ref Provider: RACHEAL SAUL Height(Cm): BSA: Weight(Kg): [...] By: Dr Racheal Saul 11/10/2024 11:02:13 AM ENGINE DESIGNER Procedure Note Racheal Saul MD - 11/10/[address] [address] Limited Echocardiogram Report Patient Name: AGUSTIN GOMEZ D : 1965 Study Date: 11/10/2024 9:09:45 AM Gender: F Tech: Location: [id number] Ref Provider: RACHEAL SAUL Height(Cm): BSA: Weight(Kg): [...] By: Dr Racheal Saul 11/10/2024 11:02:13 AM ENGINE DESIGNER us Racheal Saul MD CV ECHO PROCEDURES Final Resu lt * (ABNORMAL) POCT glucose (11/10/2024 8:00 AM ENGINE DESIGNER) Glucose, POC 247(H) 70 - 199 mg/dL Blood 11/10/2024 8:00 AM ENGINE DESIGNER 11/10/2024 8:00 AM ENGINE DESIGNER us Jaylene Huang MD LAB POCT ORDERABLES - DEVICE Final Result Performing Organization Address City/State/[facility] Co de Phone Number [facility] [place] 1 [facility] [place] [address] * eGFR (11/10/2024 2:27 AM ENGINE DESIGNER) eGFR >90 >=60 mL/min/1. 73 m2 Comment: [...] last reviewed 2021. Blood 11/10/2024 2:27 AM ENGINE DESIGNER 11/10/2024 2:58 AM ENGINE DESIGNER us Sanjeev Gonzales MD LAB BLOOD ORDERABLES Final [facility] 1 [facility] [place] [address] * Differential, auto (11/10/2024 2:27 AM ENGINE DESIGNER) Neutrophil abs 4.5 1.5 - 6.5 K/cumm [...] revised on 2018. Blood 11/10/2024 2:27 AM ENGINE DESIGNER 11/10/2024 2:59 AM ENGINE DESIGNER us Sanjeev Gonzales MD LAB BLOOD ORDERABLES Final Resu lt [facility] ([place]) 1 [facility] Department [place] [address] * (ABNORMAL) Pro B-type natriuretic peptide (11/10/2024 2:27 AM ENGINE DESIGNER) NT-proBNP 3,012(H) <=300 pg/mL Comment: Interpretive Comments: [...] Heart J. 2006:27:330-337. 2. Tyrese RW, Isela FRANCOIS. J. AM Shannan Cardiol: Cardiovasc Imag. 2009;2: 216- 225. Interpretive Data Last Revised Date: 2018. Blood 11/10/2024 2:27 AM ENGINE DESIGNER 11/10/2024 2:58 AM ENGINE DESIGNER us Jaylene Huang MD LAB BLOOD ORDERABLES Final Re sult [facility] ([place]) 1 [facility] Department [place] [address] * (ABNORMAL) CBC with auto differential (11/10/2024 2:27 AM ENGINE DESIGNER) WBC 6.7 3.8 - 9.9 K/cumm Hgb [...] [facility] ([place]) Blood 11/10/2024 2:27 AM ENGINE DESIGNER 11/10/2024 2:59 AM ENGINE DESIGNER Sanjeev Gonzales MD LAB BLOOD ORDERABLES Final Resu lt [facility] ([place]) 1 [facility] [place] [address] * Magnesium (11/10/2024 2:27 AM ENGINE DESIGNER) [facility] Magnesium 2.3 1.4 - 2.5 mg/dL Blood 11/10/2024 2:27 AM ENGINE DESIGNER 11/10/2024 2:58 AM ENGINE DESIGNER Sanjeev Gonzales MD LAB BLOOD ORDERABLES Final Resu lt Performing Organization Address City/[facility]/ZIP Co de Phone Number [facility] ([place]) 1 [facility] [place] [address] * (ABNORMAL) Comprehensive metabolic panel (11/10/2024 2:27 AM ENGINE DESIGNER) Sodium 140 135 - 145 mmol/L Potassium, pl 4.1 3.3 - 4.9 mmol/L [facility] ([place] Chloride 100 97 - 110 mmol/L [facility] ([place]) CO2 27 22 - 32 mmol/L [facility] ([place]) Anion gap 14 2 - 15 mmol/L [facility] ([place] BUN 18 6 - 25 mg/dL [facility] ([place] Creatinine 0.49(L) 0.60 - 1.10 [...] - 45 Units/L [facility] ([place]) Blood 11/10/2024 2:27 AM ENGINE DESIGNER 11/10/2024 2:58 AM ENGINE DESIGNER us Sanjeev Gonzales MD LAB BLOOD ORDERABLES Final Resu lt Performing Organization Address City/[facility] Co de Phone Number [facility] ([place]) 1 [facility] Department [place] [address] * (ABNORMAL) POCT glucose (11/10/2024 1:48 AM ENGINE DESIGNER) [facility] Signature Glucose, POC 295(H) 70 - 199 mg/dL Blood 11/10/2024 1:48 AM ENGINE DESIGNER 11/10/2024 1:48 AM ENGINE DESIGNER us Jaylene Huang MD LAB POCT ORDERABLES - DEVICE Final Result [facility] ([place]) 1 [facility] [place] [address] * (ABNORMAL) POCT glucose (11/09/2024 8:39 PM ENGINE DESIGNER) Glucose, POC 233(H) 70 - 199 mg/dL Blood 11/09/2024 8:39 PM ENGINE DESIGNER 11/09/2024 8:39 PM ENGINE DESIGNER us Jaylene Huang MD LAB POCT ORDERABLES - DEVICE Final Result [facility] ([place]) 1 [facility] [place] [address] * (ABNORMAL) POCT glucose (11/09/2024 5:23 PM ENGINE DESIGNER) Glucose, POC 343(H) 70 - 199 mg/dL Blood 11/09/2024 5:23 PM ENGINE DESIGNER 11/09/2024 5:23 PM ENGINE DESIGNER us Jaylene Huang MD LAB POCT ORDERABLES - DEVICE Final Result Performing Organization Address City/[facility]/ZIP Co de Phone Number [facility] ([place]) 1 [facility] [place] [address] * (ABNORMAL) POCT glucose (11/09/2024 11:06 AM ENGINE DESIGNER) Glucose, POC 292(H) 70 - 199 mg/dL Blood 11/09/2024 11:0 6 AM ENGINE DESIGNER 11/09/2024 11:06 AM ENGINE DESIGNER us Jaylene Huang MD LAB POCT ORDERABLES - DEVICE Final Result [facility] ([place]) 1 [facility] [place] [address] * XR Chest 1 View (11/09/2024 10:32 AM ENGINE DESIGNER) Anatomical Region Laterality Modality Body, Chest N/A Computed Radiogr aphy 11/09/2024 10:5 9 AM ENGINE DESIGNER Narrative 11/09/2024 11:02 AM ENGINE DESIGNER EXAM DESCRIPTION: XR CHEST 1 VIEW REASON [...] Javan Mcgill M.D. KN: ANNA Report ID: [id number] Reading Location: [id number] Procedure Note Javan Mcgill MD - 11/09/2024 [...] 11:02 AM - Electronically signed by Javan CASTILLO: ANNA Report ID: [id number] Reading Location: [id number] us Jaylene Huang MD IMG XR PROCEDURES Final Resul t * POCT glucose (11/09/2024 7:16 AM ENGINE DESIGNER) Glucose, POC 174 70 - 199 mg/dL Blood 11/09/2024 7:16 AM ENGINE DESIGNER 11/09/2024 7:16 AM ENGINE DESIGNER us Jaylene Huang MD LAB POCT ORDERABLES - DEVICE Final Result [facility] ([place]) 1 [facility] Department [place] [address] * eGFR (11/09/2024 2:08 AM ENGINE DESIGNER) eGFR >90 >=60 mL/min/1. 73 m2 Comment: [...] last reviewed 2021. Blood 11/09/2024 2:08 AM ENGINE DESIGNER 11/09/2024 3:53 AM ENGINE DESIGNER us Sanjeev Gonzales MD LAB BLOOD ORDERABLES Final Resu lt ALLY CUMMINGS ([place]) 1 [facility] [place] [address] * Differential, auto (11/09/2024 2:08 AM ENGINE DESIGNER) Neutrophil abs 4.0 1.5 - 6.5 K/cumm [...] Neutrophil pct 60.7 % [facility] ([place]) Comment: Interpretive Data Percent cell count reference [...] revised on 2018. Blood 11/09/2024 2:08 AM ENGINE DESIGNER 11/09/2024 3:56 AM ENGINE DESIGNER us Sanjeev Gonzales MD LAB BLOOD ORDERABLES Final Resu lt Performing Organization Address City/[facility]/ZIP Co de Phone Number ALLY CUMMINGS ([place]) 1 [facility] [place] [address] * (ABNORMAL) POCT glucose (11/09/2024 2:08 AM ENGINE DESIGNER) Pathologist [facility] Glucose, POC 207(H) 70 - 199 mg/dL Blood 11/09/2024 2:08 AM ENGINE DESIGNER 11/09/2024 2:08 AM ENGINE DESIGNER us Kerline Lambert MD LAB POCT ORDERABLES - DEVICE Fi nal Result Performing Organization Address [facility] de Phone Number ALLY CUMMINGS ([place]) 1 [facility] [place] [address] * (ABNORMAL) CBC with auto differential (11/09/2024 2:08 AM ENGINE DESIGNER) Pathologist [facility] WBC 6.5 3.8 - 9.9 K/cumm Hgb [...] [facility] ([place]) Blood 11/09/2024 2:08 AM ENGINE DESIGNER 11/09/2024 3:56 AM ENGINE DESIGNER Sanjeev Gonzales MD LAB BLOOD ORDERABLES Final Resu lt [facility] ([place]) 1 [facility] [place] [address] * Magnesium (11/09/2024 2:08 AM ENGINE DESIGNER) [facility] Magnesium 2.3 1.4 - 2.5 mg/dL Blood 11/09/2024 2:08 AM ENGINE DESIGNER 11/09/2024 3:53 AM ENGINE DESIGNER Sanjeev Gonzales MD LAB BLOOD ORDERABLES Final Resu lt [facility] ([place]) 1 [facility] [place] [address] * (ABNORMAL) Comprehensive metabolic panel (11/09/2024 2:08 AM ENGINE DESIGNER) Sodium 139 135 - 145 mmol/L Potassium, pl 4.2 3.3 - 4.9 mmol/L [facility] Chloride 100 97 - 110 mmol/L [facility]) CO2 28 22 - 32 mmol/L [facility] ([place] Anion gap 11 2 - 15 mmol/L [facility] ([place] BUN 17 6 - 25 mg/dL [facility] Creatinine 0.50(L) 0.60 - 1.10 mg/dL [facility] ([place] Glucose 186 70 - 199 [...] [facility] ([place]) Blood 11/09/2024 2:08 AM ENGINE DESIGNER 11/09/2024 3:53 AM ENGINE DESIGNER us Sanjeev Gonzales MD LAB BLOOD ORDERABLES Final Resu lt Performing Organization Address City/[facility]/ZIP Co de Phone Number ALLY CUMMINGS ([place]) 1 [facility] Department [place] [address] * (ABNORMAL) POCT glucose (11/08/2024 8:36 PM ENGINE DESIGNER) [facility] Signature Glucose, POC 264(H) 70 - 199 mg/dL Blood 11/08/2024 8:36 PM ENGINE DESIGNER 11/08/2024 8:36 PM ENGINE DESIGNER us Kerline Lambert MD LAB POCT ORDERABLES - DEVICE Fi nal Result Performing Organization Address City/[facility]/ZIP Co de Phone Number ALLY CUMMINGS ([place]) 1 [facility] [place] [address] * (ABNORMAL) POCT glucose (11/08/2024 4:57 PM ENGINE DESIGNER) Glucose, POC 291(H) 70 - 199 mg/dL Blood 11/08/2024 4:57 PM ENGINE DESIGNER 11/08/2024 4:57 PM ENGINE DESIGNER us Kerline Lambert MD LAB POCT ORDERABLES - DEVICE Fi nal Result Performing Organization Address City/[facility]/ZIP Co de Phone Number ALLY CUMMINGS ([place]) 1 [place] [address] * (ABNORMAL) Troponin T high-sensitivity (11/08/2024 2:31 PM ENGINE DESIGNER) Trop T hs 30(H) <=14 ng/L Comment: Interpretive Data For further hscTnT resources including the diagnostic algorithm and an aid in interpretation, copy and paste this link: https://nrl.testcatalog.org/show/hsTrop Current Interpretive Data last revised 2020. Blood 11/08/2024 2:31 PM ENGINE DESIGNER 11/08/2024 2:41 PM ENGINE DESIGNER us Kerline Lambert MD LAB BLOOD ORDERABLES Final Resu lt Performing Organization Address City/[facility]/ZIP Co de Phone Number ALLY CUMMINGS ([place]) 1 [facility] [place] [address] * POCT glucose (11/08/2024 12:04 PM ENGINE DESIGNER) Glucose, POC 173 70 - 199 mg/dL Blood 11/08/2024 12:0 4 PM ENGINE DESIGNER 11/08/2024 12:04 PM ENGINE DESIGNER us Kerline Lambert MD LAB POCT ORDERABLES - DEVICE Fi nal Result Performing Organization Address City/[facility]/ZIP Co de Phone Number ALLY CUMMINGS ([place]) 1 [place] [address] * POCT glucose (11/08/2024 8:00 AM ENGINE DESIGNER) Glucose, POC 119 70 - 199 mg/dL Blood 11/08/2024 8:00 AM ENGINE DESIGNER 11/08/2024 8:00 AM ENGINE DESIGNER Kerline Lambert MD LAB POCT ORDERABLES - DEVICE Fi nal Result Performing Organization Address [facility] Co de Phone Number [facility] ([place]) 1 [place] [address] * (ABNORMAL) Troponin T high-sensitivity (11/08/2024 7:44 AM ENGINE DESIGNER) Trop T hs 30(H) <=14 ng/L Comment: Interpretive Data For further hscTnT resources including the diagnostic algorithm and an aid in interpretation, copy and paste this link: https://nrl.sones.org/show/hsTrop Current Interpretive Data last revised 2020. Blood 11/08/2024 7:44 AM ENGINE DESIGNER 11/08/2024 8:42 AM ENGINE DESIGNER us Sanjeev Gonzales MD LAB BLOOD ORDERABLES Final Resu lt Performing Organization Address [facility] Co de Phone Number [facility] ([place]) 1 [place] [address] * (ABNORMAL) Troponin T high-sensitivity (11/08/2024 2:30 AM ENGINE DESIGNER) Trop T hs 36(H) <=14 ng/L Comment: Interpretive Data For further hscTnT resources including the diagnostic algorithm and an aid in interpretation, copy and paste this link: https://nrl.sones.org/show/hsTrop Current Interpretive Data last revised 2020. Blood 11/08/2024 2:30 AM ENGINE DESIGNER 11/08/2024 2:34 AM ENGINE DESIGNER Sanjeev Gonzales MD LAB BLOOD ORDERABLES Final Resu lt Performing Organization Address City/[facility] Co de Phone Number ALLY [place]) 1 [facility] [place] [address] * eGFR (11/08/2024 2:30 AM ENGINE DESIGNER) eGFR >90 >=60 mL/min/1. 73 m2 Comment: [...] last reviewed 2021. Blood 11/08/2024 2:30 AM ENGINE DESIGNER 11/08/2024 2:34 AM ENGINE DESIGNER Sanjeev Gonzales MD LAB BLOOD ORDERABLES Final Resu lt Performing Organization Address City/[facility]/ZIP Co de Phone Number ALLY CUMMINGS ([place]) 1 [facility] [place] [address] * Differential, auto (11/08/2024 2:30 AM ENGINE DESIGNER) Neutrophil abs 6.1 1.5 - 6.5 K/cumm Imm gran abs 0.1 0.0 - 0.1 K/cumm [facility] ([place]) Lymphocyte abs 1.7 0.8 - 3.3 K/cumm [facility] ([place]) Monocyte abs 0.6 0.2 - 0.8 K/cumm [facility] ([place]) Eosinophil abs 0.1 0.0 - 0.5 K/cumm [facility] ([place]) Basophil abs 0.0 0.0 - 0.1 K/cumm [facility] ([place]) Neutrophil pct 71.2 % [facility] ([place]) Comment: Interpretive Data Percent cell count reference [...] Lymphocyte pct 20.3 % [facility] ([place]) Comment: Interpretive Data Percent cell count reference ranges are not reported, since discordance with absolute values may lead to misinterpretation of CBC data. Current Interpretive Data was last revised on 2018. Monocyte pct 6.8 % [facility] ([place]) Comment: Interpretive Data Percent cell count reference ranges are not reported, since discordance with absolute values may lead to misinterpretation of CBC data. Current Interpretive Data was last revised on 2018. Eosinophil pct 0.6 % [facility] ([place]) Comment: Interpretive Data Percent cell count reference ranges are not reported, since discordance with absolute values may lead to misinterpretation of CBC data. Current Interpretive Data was last revised on 2018. Basophil pct 0.2 % [facility] ([place]) Comment: Interpretive Data Percent cell count reference ranges are not reported, since discordance with absolute values may lead to misinterpretation of CBC data. Current Interpretive Data was last revised on 2018. Blood 11/08/2024 2:30 AM ENGINE DESIGNER 11/08/2024 2:34 AM ENGINE DESIGNER us Sanjeev Gonzales MD LAB BLOOD ORDERABLES Final Resu lt [facility] ([place]) 1 [facility] Department [place] [address] * (ABNORMAL) Pro B-type natriuretic peptide (11/08/2024 2:30 AM ENGINE DESIGNER) NT-proBNP 938(H) <=300 pg/mL Comment: Interpretive Comments: [...] Revised Date: 2018. Blood 11/08/2024 2:30 AM ENGINE DESIGNER 11/08/2024 2:34 AM ENGINE DESIGNER us Sanjeev Gonzales MD LAB BLOOD ORDERABLES Final Resu lt [facility] ([place]) 1 [facility] Department [place] [address] * (ABNORMAL) CBC with auto differential (11/08/2024 2:30 AM ENGINE DESIGNER) WBC 8.6 3.8 - 9.9 K/cumm Hgb 8.9(L) 11.9 - 15.5 g/dL [facility] ([place]) Hct 36.0 35.6 - 45.5 % [facility] ([place]) Plt 375 150 - 400 K/cumm [facility] ([place]) MPV 9.6 9.1 - 12.3 fL [facility] ([place]) RBC 4.52 3.90 - 5.20 M/cumm [facility] ([place]) MCV 79.6(L) 81.3 - 96.4 fL [facility] ([place]) MCH 19.7(L) 27.1 - 33.3 pg [facility] ([place]) MCHC 24.7(L) 32.3 - 35.7 g/dL [facility] ([place]) RDW CV 28.3(H) 11.1 - 14.9 % [facility] ([place]) RDW SD 76.9(H) 35.7 - 48.1 fL [facility] ([place]) NRBC abs 0.02(H) 0.00 - 0.01 K/cumm [facility] ([place]) Blood 11/08/2024 2:30 AM ENGINE DESIGNER 11/08/2024 2:34 AM ENGINE DESIGNER us Sanjeev Gonzales MD LAB BLOOD ORDERABLES Final Resu lt ALLY CUMMINGS ([place]) 1 [facility] Department [place] [address] * aPTT (11/08/2024 2:30 AM ENGINE DESIGNER) aPTT 32 28 - 38 sec [facility] ([place]) Comment: Interpretive Data Heparin therapeutic range: 66.0 - 100.0 seconds. Range based on correlation with therapeutic heparin activity range of 0.3 - 0.7 Units/mL. Current interpretive data was last revised on 2023. Blood 11/08/2024 2:30 AM ENGINE DESIGNER 11/08/2024 2:34 AM ENGINE DESIGNER Narrative ALLY CUMMINGS ([place]) - 11/08/2024 4:15 AM ENGINE DESIGNER Baseline prior to enoxaparin initiation. Sanjeev Gonzales MD LAB BLOOD ORDERABLES Final Resu lt Performing Organization Address [facility] Co de Phone Number ALLY CUMMINGS ([place]) 1 [facility] [employer] [address] * (ABNORMAL) Protime-INR (11/08/2024 2:30 AM ENGINE DESIGNER) PT 13.6(H) 9.7 - 13.0 sec ALLY CUMMINGS ([place]) INR 1.25(H) 0.90 - 1.20 [facility] ([place]) Comment: Interpretive data Oral anticoagulant therapeutic ranges: Venous thromboembolism prophylaxis or treatment: 2.0-3.0 CARDIOLOGY Standard range: 2.0-3.0 High-intensity range: 2.5-3.5 Refer to indication-specific guidelines for appropriate target ranges for prosthetic heart valve replacement. Current interpretive data was last revised on 2019. Blood 11/08/2024 2:3 0 AM ENGINE DESIGNER 11/08/2024 2:34 AM ENGINE DESIGNER Narrative ALLY CUMMINGS ([place]) - 11/08/2024 4:15 AM ENGINE DESIGNER Baseline prior to enoxaparin initiation. Sanjeev Gonzales MD LAB BLOOD ORDERABLES Final Resu lt Performing Organization Address City/[facility]/ZIP Co de Phone Number ALLY CUMMINGS ([place]) 1 [facility] [place] [address] * (ABNORMAL) CBC without differential (11/08/2024 2:30 AM ENGINE DESIGNER) WBC 8.6 3.8 - 9.9 K/cumm Hgb 8.9(L) 11.9 - 15.5 g/dL [facility] ([place]) Hct 35.5(L) 35.6 - 45.5 % [facility] ([place]) Plt 374 150 - 400 K/cumm [facility] ([place]) MPV 9.6 9.1 - 12.3 [...] NRBC abs 0.02(H) 0.00 - 0.01 K/cumm [facility] ([place]) Blood 11/08/2024 2:30 AM ENGINE DESIGNER 11/08/2024 2:34 AM ENGINE DESIGNER Narrative ALLY CUMMINGS ([place]) - 11/08/2024 2:45 AM ENGINE DESIGNER Baseline prior to enoxaparin initiation. us Sanjeev Gonzales MD LAB BLOOD ORDERABLES Final Resu lt ALLY CUMMINGS ([place]) 1 [facility] [employer] [address] * Magnesium (11/08/2024 2:30 AM ENGINE DESIGNER) Magnesium 2.4 1.4 - 2.5 mg/dL Blood 11/08/2024 2:30 AM ENGINE DESIGNER 11/08/2024 2:34 AM ENGINE DESIGNER Sanjeev Gonzales MD LAB BLOOD ORDERABLES Final Resu lt ALLY CUMMINGS ([place]) 1 [facility] [employer] [place] [address] * (ABNORMAL) Lipid panel (11/08/2024 2:30 AM ENGINE DESIGNER) Cholesterol 101 30 - 199 mg/dL Comment: [...] 3. Darrell Rodriguez et al. ANGELA Cardiol. 2020 February 10;5(5):540-548. doi: [email or web address] Current Interpretive Data was [...] last revised on 2018. Chol/HDL ratio 3 NAEEM CUMMINGS ([place]) Blood 11/08/2024 2:30 AM ENGINE DESIGNER 11/08/2024 2:34 AM ENGINE DESIGNER us Sanjeev Gonzales MD LAB BLOOD ORDERABLES Final Resu lt ALLY CUMMINGS ([place]) 1 [facility] Department [place] [address] * (ABNORMAL) Comprehensive metabolic panel (11/08/2024 2:30 AM ENGINE DESIGNER) Sodium 143 135 - 145 mmol/L Potassium, pl 4.1 3.3 - 4.9 mmol/L [facility] ([place]) Chloride 100 97 - 110 mmol/L ALLY CUMMINGS ([place]) CO2 27 22 - 32 mmol/L [...] ([place]) Albumin 4.7 3.5 - 5.0 g/dL [facility] ([place]) Alk phos 77 40 - 130 Units/L [facility] ([place]) ALT 26 7 - 45 Units/L [facility] ([place]) AST 17 10 - 45 Units/L [facility] ([place]) Blood 11/08/2024 2:30 AM ENGINE DESIGNER 11/08/2024 2:34 AM ENGINE DESIGNER us Sanjeev Gonzales MD LAB BLOOD ORDERABLES Final Resu lt [facility] ([place]) 1 [facility] Department [place] [address] * (ABNORMAL) Protime-INR (11/08/2024 2:24 AM ENGINE DESIGNER) PT 13.8(H) 9.7 - 13.0 sec [facility] ([place]) INR 1.27(H) 0.90 - 1.20 ALLY EMILIANO ([place]) Comment: Interpretive data Oral anticoagulant therapeutic ranges: Venous thromboembolism prophylaxis or treatment: 2.0-3.0 CARDIOLOGY Standard range: 2.0-3.0 High-intensity range: 2.5-3.5 Refer to indication-specific guidelines for appropriate target ranges for prosthetic heart valve replacement. Current interpretive data was last revised on 2019. 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 Result [facility] Sanjeev Gonzales MD LAB POCT ORDERABLES - DEVICE Fi nal Result Performing Organization Address City/[facility]/ZIP Co de Phone Number ALLY CUMMINGS ([place]) 1 [facility] [place] [address] * SCAN - RADIOLOGY/IMAGING (11/07/2024) Anatomical Region Laterality Modality Other us Provider Scanning Edited Result - Final * SCAN - LABS (11/07/2024) us Provider Scanning Edited Result - Final * SCAN - LABS (11/04/2024) us Provider Scanning Final Result * (ABNORMAL) Protime-INR (11/04/2024) INR 1.50(A) 0.90 - 1.10 EXTERNAL LAB Blood us Historical Provider LAB BLOOD ORDERABLES Jaz simmons Result EXTERNAL LAB * MRI Abdomen Liver W WO Contrast (10/27/2024 12:54 PM ENGINE DESIGNER) Anatomical Region Laterality Modality Body N/A Magnetic Resonan ce 10/27/2024 2:00 PM ENGINE DESIGNER Impressions 10/27/2024 3:34 PM ENGINE DESIGNER Unchanged hepatic metastatic disease. No evidence of disease progression. Dictated by: Dillon Yañez MD The radiology attending physician has personally reviewed this study, and had reviewed and/or edited this written report and agrees with it. Electronically signed by: Horace Cornell M.D. Narrative 10/27/2024 3:34 PM ENGINE DESIGNER EXAMINATION: MAGNETIC RESONANCE IMAGING OF THE ABDOMEN [...] PA Lateral 2 Views (10/27/2024 9:14 AM ENGINE DESIGNER) Anatomical Region Laterality Modality Body, Chest N/A Computed Radiogr aphy 10/27/2024 9:27 AM ENGINE DESIGNER Impressions 10/27/2024 9:50 AM ENGINE DESIGNER FINDINGS/IMPRESSION: Changes of cervical spinal fusion. Partially [...] Wyatt Ochoa M.D. Narrative 10/27/2024 9:50 AM ENGINE DESIGNER EXAMINATION: XR CHEST PA LATERAL 2 VIEWS [...] 3.10(A) 0.90 - 1.10 EXTERNAL LAB Blood Historical Provider LAB BLOOD ORDERABLES Jaz l Result EXTERNAL LAB * US Carotids Duplex Bilateral (10/25/2024 2:57 PM ENGINE DESIGNER) Anatomical Region Laterality Modality Vascular Bilateral Ultrasound 10/25/2024 3:07 PM ENGINE DESIGNER Impressions 10/25/2024 3:07 PM ENGINE DESIGNER 1. Bilateral internal carotid artery stenosis estimated at less than 50%. 2. There is antegrade flow in both vertebral arteries. Electronically signed by: Paul Traylor II, D.O. Narrative 10/25/2024 3:07 PM ENGINE DESIGNER EXAMINATION: BILATERAL CAROTID DUPLEX EXAM DATE: 10/25/2024 [...] vertebral arteries. Procedure Note Paul Traylor II, DO - 10/25/2024 EXAMINATION: BILATERAL CAROTID DUPLEX EXAM [...] Electronically signed by: Paul Traylor II, D.O. Hesham Madsen MD IMG US PROCEDURES Final Resu lt * SCAN - LABS (10/22/2024) Provider Scanning Final Result * DEVICE CHECK - REMOTE (10/19/2024 10:10 AM ENGINE DESIGNER) Anatomical Region Laterality Modality Other Narrative 10/27/2024 1:18 PM ENGINE DESIGNER Images from the original result were not included. 10/20/2024 [employer] quarterly remote device check NOTE The following shows snippets from the complete quarterly report. The complete report in its entirety is attached to this Result Text in Storage Worker Slow nsT Detection Oct 13, 2024, Slow nsT Detection Oct 13, 2024 @ 12:39AM Episode List- Full Episode IEGMs are in MEDIA Single Chamber ICD implanted July 2023 Battery Status: MARQUEZ RVp: 0% Next Appointment: 04/14/2025 Pt seen recently in office. Device was not checked at that visit however; Currently being worked up for Barostim Reviewed By Marissa Hernandez PRESS BUCKER ATTESTATION I have reviewed the device interrogation report associated with this encounter in detail. I agree with the documentation recorded/scanned into the electronic medical record. Recommendations: Continue current device follow-up. Rajan Begum MD Rajan Begum MD CV CARDIAC SERVICES MA OCEDURES Final Result * (ABNORMAL) Protime-INR (10/14/2024) INR 1.40(A) 0.90 - 1.10 EXTERNAL LAB Blood Historical Provider LAB BLOOD ORDERABLES Jaz l Result EXTERNAL LAB * (ABNORMAL) Protime-INR (10/07/2024) Pathologist [facility] INR 1.70(A) 0.90 - 1.10 EXTERNAL LAB Blood Result [facility] Provider MD LAB BLOOD ORDERABLES Jaz l Result EXTERNAL LAB * (ABNORMAL) Protime-INR (10/01/2024) INR 1.90(A) 0.90 - 1.10 ALLY Spann ([place]) Blood 10/01/2024 Result [facility] Provider MD LAB BLOOD ORDERABLES Jaz l Result Performing Organization Address City/[facility]/ZIP Co de Phone Number ALLY CUMMINGS ([place]) 1 [facility] Department [place] [address] * (ABNORMAL) Protime-INR (10/01/2024) [facility] INR 1.90(A) 0.90 - 1.10 EXTERNAL LAB Blood Result [facility] Provider MD LAB BLOOD ORDERABLES Jaz l Result EXTERNAL LAB * (ABNORMAL) Protime-INR (09/23/2024) Pathologist [facility] INR 1.30(A) 0.90 - 1.10 EXTERNAL LAB Blood Result [facility] Historical Provider MD LAB BLOOD ORDERABLES Jaz l Result EXTERNAL LAB * SCAN - LABS (09/13/2024) Provider Scanning Final Result * (ABNORMAL) POCT glucose (08/30/2024 12:36 PM ENGINE DESIGNER) Glucose, POC 290(H) 70 - 199 mg/dL Glucose comment 1 RN/MD Notified [facility] Glucose comment 2 Use This Result [facility] Blood 08/30/2024 12:3 6 PM ENGINE DESIGNER 08/30/2024 12:36 PM ENGINE DESIGNER Yves Braun MD LAB POCT ORDERABLES - DEV ICE Final Result Performing Organization Address City/[facility] Co de Phone Number ALLY [facility] Department [place] [address] * (ABNORMAL) Urinalysis reflex to microscopic and culture Urine, clean voided (08/30/2024 9:28 AM ENGINE DESIGNER) Pathologist [facility] Color, ur Yellow Yellow Clarity, ur Clear Clear [facility] Specific gravity, ur 1.046(H) 1.003 - 1.030 [facility] pH, urine 6.5 [facility] Comment: Interpretive Data U rine pH is affected by diet, medications, systemic acid-base disturbances, and renal tubular function. pH may affect urinary stone formation. For example, urine pH below 6.0 may help reduce the tendency for calcium phosphate stones and pH greater than 6.0 may reduce the tendency for uric acid stone formation. Source: [facility] Current Interpretive Data was last revised on 2017 Protein, ur ql Negative Negative [facility] Glucose, ur ql 4+(A) Negative [facility] Ketones, ur 1+(A) Negative [facility] Bilirubin, ur Negative Negative [facility] Blood, ur Negative Negative [facility] Urobilinogen, ur <2.0 <2.0 mg/dL [facility] Nitrite, ur Negative Negative [facility] Leukocyte esterase, ur 2+(A) Negative [facility] UA reflex comment Reflex to microscopic UA will be performed. [facility] Urine, clean voided 08/30/2024 9:28 AM ENGINE DESIGNER 08/30/2024 9:40 AM ENGINE DESIGNER Yves Braun MD LAB MICROBIOLOGY - GENERA L ORDERABLES Final Result Performing Organization Address City/[facility]/ZIP Co de Phone Number ALLY [address] [place] [address] [place] [address] * (ABNORMAL) Urinalysis, microscopic only (08/30/2024 9:28 AM ENGINE DESIGNER) Pathologist [facility] WBC, ur 6-10(A) 0 - 5 /HPF RBC, ur 11-20(A) 0 - 2 /HPF [facility] Epithelial cells, squamous, ur 1-5 0 - 5 /HPF [facility] Mucous, ur Present(A) [facility] Culture Reflex Comment Reflex conditions for urine culture (WBC >10) not met. [facility] Urine, clean voided 08/30/2024 9:28 AM ENGINE DESIGNER 08/30/2024 9:40 AM ENGINE DESIGNER us Yves Braun MD LAB URINE ORDERABLES Jaz l Result Performing Organization Address [facility] Co de Phone Number [address] [address] * POCT glucose (08/30/2024 7:49 AM ENGINE DESIGNER) [facility] Glucose, POC 198 70 - 199 mg/dL Glucose comment 1 Use This Result [facility] Blood 08/30/2024 7:49 AM ENGINE DESIGNER 08/30/2024 7:49 AM ENGINE DESIGNER us Yves Braun MD LAB POCT ORDERABLES - DEV ICE Final Result Performing Organization Address [facility] Co de Phone Number [address] [address] * Magnesium - Add on lab test (08/30/2024 2:25 AM ENGINE DESIGNER) Pathologist [facility] Acceptable Yes Blood 08/30/2024 2:25 AM ENGINE DESIGNER 08/30/2024 8:40 AM ENGINE DESIGNER Narrative ALLY - 08/30/2024 8:40 AM ENGINE DESIGNER Name of Test->Magnesium us Yves Braun MD LAB BLOOD ORDERABLES Jaz l Result Performing Organization Address City/[facility] Co de Phone Number ALLY [address] Department [place] [address] * eGFR (08/30/2024 2:25 AM ENGINE DESIGNER) [facility] eGFR >90 >=60 mL/min/1. 73 m2 Comment: [...] last reviewed 2021. Blood 08/30/2024 2:25 AM ENGINE DESIGNER 08/30/2024 3:06 AM ENGINE DESIGNER us Yves Braun MD LAB BLOOD ORDERABLES Jaz l Result Performing Organization Address [facility] Co de Phone Number ALLY [address] Department [place] [address] * (ABNORMAL) Differential, auto (08/30/2024 2:25 AM ENGINE DESIGNER) [facility] Neutrophil abs 6.9(H) 1.5 - 6.5 K/cumm Imm gran abs 0.1 0.0 - 0.1 K/cumm [facility] Lymphocyte abs 1.4 0.8 - 3.3 K/cumm [facility] Monocyte abs 0.7 0.2 - 0.8 K/cumm [facility] Eosinophil abs 0.0 0.0 - 0.5 K/cumm [facility] Basophil abs 0.0 0.0 - 0.1 K/cumm [facility] Neutrophil pct 75.7 % [facility] Comment: Interpretive Data Percent cell count reference ranges are not reported, since discordance with absolute values may lead to misinterpretation of CBC data. Current Interpretive Data was last revised on 2018. Imm gran pct 0.9 % [facility] Comment: Interpretive Data Percent cell count reference ranges are not reported, since discordance with absolute values may lead to misinterpretation of CBC data. Current Interpretive Data was last revised on 2018. Lymphocyte pct 15.1 % [facility] Comment: Interpretive Data Percent cell count reference ranges are not reported, since discordance with absolute values may lead to misinterpretation of CBC data. Current Interpretive Data was last revised on 2018. Monocyte pct 8.1 % [facility] Comment: Interpretive Data Percent cell count reference ranges are not reported, since discordance with absolute values may lead to misinterpretation of CBC data. Current Interpretive Data was last revised on 2018. Eosinophil pct 0.1 % [facility] Comment: Interpretive Data Percent cell count reference ranges are not reported, since discordance with absolute values may lead to misinterpretation of CBC data. Current Interpretive Data was last revised on 2018. Basophil pct 0.1 % [facility] Comment: Interpretive Data Percent cell count reference ranges are not reported, since discordance with absolute values may lead to misinterpretation of CBC data. Current Interpretive Data was last revised on 2018. Blood 08/30/2024 2:25 AM ENGINE DESIGNER 08/30/2024 3:06 AM ENGINE DESIGNER us Yves Braun MD LAB BLOOD ORDERABLES Jaz l Result [facility] [address] [facility] Department [place] [address] * (ABNORMAL) CBC with auto differential (08/30/2024 2:25 AM ENGINE DESIGNER) Pathologist [facility] WBC 9.2 3.8 - 9.9 K/cumm Hgb 8.5(L) 11.9 - 15.5 g/dL [facility] Hct 32.6(L) 35.6 - 45.5 % [facility] Plt 545(H) 150 - 400 K/cumm [facility] MPV 9.9 9.1 - 12.3 fL [facility] RBC 4.32 3.90 - 5.20 M/cumm [facility] MCV 75.5(L) 81.3 - 96.4 fL [facility] MCH 19.7(L) 27.1 - 33.3 pg [facility] MCHC 26.1(L) 32.3 - 35.7 g/dL [facility] RDW CV 19.8(H) 11.1 - 14.9 % [facility] RDW SD 53.4(H) 35.7 - 48.1 fL [facility] NRBC abs 0.03(H) 0.00 - 0.01 K/cumm [facility] Blood 08/30/2024 2:25 AM ENGINE DESIGNER 08/30/2024 3:06 AM ENGINE DESIGNER Yves Braun MD LAB BLOOD ORDERABLES Jaz l Result Performing Organization Address City/[facility] Co de Phone Number [place] [id number] [facility] Department of Laboratories [place] [phone] * (ABNORMAL) Protime-INR (08/30/2024 2:25 AM ENGINE DESIGNER) PT 28.4(H) 12.0 - 14.6 sec Comment:Ref Range High INR 2.8(H) 0.9 - 1.2 [facility] Comment: Ref Range High Interpretive data Oral anticoagulant therapeutic ranges: Venous thromboembolism prophylaxis or treatment: 2.0-3.0 CARDIOLOGY Standard range: 2.0-3.0 High-intensity range: 2.5-3.5 Refer to indication-specific guidelines for appropriate target ranges for prosthetic heart valve replacement. Current interpretive data was last revised on 2019. Blood 08/30/2024 2:25 AM ENGINE DESIGNER 08/30/2024 3:06 AM ENGINE DESIGNER us Yves Braun MD LAB BLOOD ORDERABLES Jaz l Result [address] [address] * Magnesium (08/30/2024 2:25 AM ENGINE DESIGNER) [facility] Magnesium 2.2 1.4 - 2.5 mg/dL Blood 08/30/2024 2:25 AM ENGINE DESIGNER 08/30/2024 3:06 AM ENGINE DESIGNER Yves Braun MD LAB BLOOD ORDERABLES Jaz l Result Performing Organization Address [facility] Co de Phone Number [address] [address] * (ABNORMAL) Basic metabolic panel (08/30/2024 2:25 AM ENGINE DESIGNER) [facility] Sodium 145 135 - 145 mmol/L Potassium, pl 3.1(L) 3.3 - 4.9 mmol/L [facility] Chloride 101 97 - 110 mmol/L [facility] CO2 35(H) 22 - 32 mmol/L [facility] Anion gap 9 2 - 15 mmol/L [facility] BUN 16 6 - 25 mg/dL [facility] Creatinine 0.43(L) 0.60 - 1.10 mg/dL [facility] Glucose 179 70 - 199 mg/dL [facility] Comment: Interpretive Data Fasting glucose >/= [...] Calcium 9.4 8.5 - 10.3 mg/dL [facility] Blood 08/30/2024 2:25 AM ENGINE DESIGNER 08/30/2024 3:06 AM ENGINE DESIGNER us Yves Braun MD LAB BLOOD ORDERABLES Jaz l Result [facility] [address] [facility] Department [place] [address] * Hepatitis panel, acute Blood (06/07/2024 4:33 AM CDT) Hep A IgM Nonreactive Nonreactive Comment: Interpretive Data: If Hep A IgM Ab is reported as Equivocal, a new sample should be drawn in two weeks for testing. Current interpretive data was last revised on 19. Hep B core IgM Nonreactive Nonreactive [facility] Comment: Interpretive Data If HepB Core IgM Ab is reported as Equivocal, a new sample should be drawn in two weeks for testing. Current interpretive data was last revised on 19. Hep C Ab Nonreactive Nonreactive [facility] Comment: Interpretive Data Nonreactive: Antibodies to [...] last revised on 2019. HepBsAg Nonreactive Nonreactive [facility] Blood 06/07/2024 4:33 AM CDT 06/07/2024 5:20 AM CDT Zaria Alvares MD LAB MICROBIOLOGY - GENERAL ORDERABLES Final Result [facility] [address] Department [place] [address] * Diabetic Eye Exam (01/26/2024 2:27 PM CDT) Michael Holman MD HEALTH MAINTENANCE Final Result * Screening Mammogram [...] Albumin Creatinine Ratio, Urine (10/11/2022 10:25 AM ENGINE DESIGNER) Albumin Ur 67.6 mg/L [facility] Comment: Interpretive Data No reference range established. Current interpretive data was last revised 2019. Testing performed by: [address] [address] Creatinine Ur 101.1 mg/dL [facility] Comment: Interpretive Data No reference range established. Current interpretive data was last revised 2019. Testing performed by: [facility], [address] [place] [address]., [address] Albumin Creatinine Ratio, Ur 67(H) 1 - 29 mg/g [facility] Comment:Testing performed by : [address] [address] Urine 10/11/2022 10:2 5 AM ENGINE DESIGNER 10/11/2022 1:42 PM ENGINE DESIGNER us Juni Hays MD LAB URINE ORDERABLES Final R esult [facility] [place] [address] [employer] Department of Laboratories [place], [place] [id number] * COLONOSCOPY (02/05/2022 1:10 PM CDT) Anatomical Region Laterality Modality Other Narrative Procedure Note Dontae Stevens MD - 02/05/2022 1:10 PM CDT [facility] Patient Name: Agustin Gomez Procedure Date: 02/05/2022 1:10 PM Date of : 1965 Admit Type: Outpatient Age: 56 Gender: Female Attending MD: Dontae Stevens M.D. Room: [facility] ENDOSCOPY ROOM 1 Note Status: Finalized Patient [...] under direct vision. The Pediatric Colonoscope PCF-H190L [id number] was introducedthrough the anus and advanced to [...] 1:10 PM Procedure Code(s): --- Professional --- 61691, Colonoscopy, flexible; with biopsy, single or multiple Diagnosis Code(s): --- Professional --- Z12.11, Encounter for screening for malignant neoplasm of colon K64.8, Other hemorrhoids D12.5, Benign neoplasm of sigmoid colon CPT copyright 2020 [employer]. All rights reserved. The codes documented in this report are preliminary and upon tattooer reviewmay be revised to meet current compliance requirements. Recognized by the [employer] for promoting quality in endoscopy Dontae Stevens MD ENDOSCOPY PROCEDURES Final Result from Last 3 Months or Most Recently Relevant to Health Maintenance Additional Health Concerns Infection Onset Date Last Indicated CRE Comment:Contact Precautions (gown and gloves) RAMYA Au 09/25/22 08/16/2022 08/16/2022 MDR gram neg/ESBL Comment:Contact Precautions (gown and gloves) RAMYA Au 09/25/22 08/16/2022 08/16/2022 Insurance [facility] CHOICE PLUS MEDICARE [facility] Address: [place] [id number] [place] [address] [facility] CHOICE PLUS MEDICARE [facility] CHOICE PLUS MEDICARE Advance Directives For more information, please contact: [phone] Documents on File Type Date Recorded Patient Aquatic Habitat Biologist Expl anation ADVANCE DIRECTIVE 08/26/2024 1:59 PM POLS T - Phys Order for PT Preferences ADVANCE DIRECTIVE 08/23/2022 4:18 PM ELLIS R OF [employer] * LIMITED - No CPR (Latest Code [...] cardioversionNo internal / external pacemaker Care Teams Qa Automation Engineer Relationship Specialty Start Date End Date Juni Hays MD [address] [facility] [address] [address] PCP - General Internal Medicine 08/18/24 Kingston Jain DO [address] [place] [address] [address] Consulting Physician Cardiovascular Disease 06/20/20 Candido Lobato MD [address] [facility], [facility] [address], [address], [address] [place] [address] Medical Oncology 05/02/23 [place] [address] [address] Physician Supervisor Propellant Charge Loading Orthopedic Surgery 06/16/24
--- OUTSIDE RECORDS SUMMARY | 2024-11-30 18:15 | XMS_ITS | Encounter Summary ---
Author Organization [facility] Healthcare Address [address] [place] [address] Care Team Providers Care Furnace Fitter Name Role Phone Kingston Jain DO Unavailable [phone] Candido Lobato MD Unavailable [phone] Kelli Bassett Unavailable [phone] Juni Hays MD Primary Care Provider [phone] Encounter Details Date Type Department Care Team (Late st Contact Info) Description 11/04/2024 Orders Only [facility] Health Information Management [address] [place] [address] Scanning, Provider Social History Tobacco Use Types Packs/Day Years Used Date Smoking Tobacco: Former Cigarettes 1 5 1 983 - 1987 Smokeless Tobacco: Never Alcohol Use Standard Drinks/Week Comments No 0 (1 standard drink = 0.6 oz pur e alcohol) [facility] Utilities Answer Date Recorded In the past 12 months has [employer] electric, gas, oil, or water company threatened to shut off services in your home? No 11/08/2024 Social Connection and Isolat ion Panel [NHANES] Answer Date Recorded In a typical week, how many times do you talk on the phone with family, friends, or neighbors? More than three times a week 11/08/2024 How often do you get togethe r with friends or relatives? More than three times a week 11/08/2024 How often do you attend chur ch or temple services? 1 to 4 times per year 11/08/2024 Do you belong to any clubs o r organizations such as islam groups, unions, fraternal or athletic groups, or school groups? No 11/08/2024 How often do you attend meet ings of the clubs or organizations you belong to? Never 11/08/2024 Are you , , di vorced, , never , or living with a partner? 11/08/2024 AUDIT-C Answer Date Recorded Q1: How often [...] care, and heating? Not hard at all 11/08/2024 PHQ-2 Answer Date Recorded PHQ-2 Total Score 3 08/23/2024 Hunger Vital Sign Answer Date Recorded Within the past 12 months, y ou worried that your food would run out before you got the money to buy more. Never true 11/08/19 25 Within the past 12 months, t he food you bought just didn't last and you didn't have money to get more. Never true 11/08/2024 PRAPARE - Transportation Answer Date Re corded In the past 12 months, has l ack of transportation kept you from medical appointments or from getting medications? No 10/14 In the past 12 months, has l ack of transportation kept you from meetings, work, or from getting things needed for daily living? No 11/08/2024 Housing Stability Vital Sign Answer [place] e [...] place to sleep or slept in a alf (including now)? No 01/06/2024 Housing Stability Vital Sign Answer [place] e Recorded In the last 12 months, was t here a time when you were not able to pay the mortgage or rent on time? No 11/08/2024 In the past 12 months, how m any times have you moved where you were living? 0 11/08/2024 At any time in the past 12 m [facility], were you homeless or living in a alf (including now)? No 11/08/2024 Personal Safety Answer Date Recorded Have you ever been in or are you currently in a harmful physical or emotional relationship or is someone making you feel afraid or unsafe? Denies 11/08/2024 Education Answer Date Recorded What is the highest level of school you have completed or the highest degree you have received? Some college, no degree 03/25/2023 Comments No Sex and Gender Information Value Date Recorded Sex Assigned at Not on file Legal Sex Female 2:31 PM SPICE MILLER Gender Identity Not on file Sexual Orientation [...] how to respond ACO Care Management Matilda Dooley, RN Note: Problem: Knowledge deficit related to [...] take, when to call CM or provider. [facility] Chronic Pain Care Plan Chronic Care Management Yes Arelis Parkinson, RN Note: Problem: Chronic Pain Goals: 1. [...] on stairs Contact your local community or [facility] for information on exercise, fall prevention programs, or options for improving home safety. documented as of this encounter Procedures Procedure Name Priority Date/Time Associated Diagnosis Comments SCAN - LABS 11/04/2024 documented in this encounter Results * SCAN - LABS (11/04/2024) us Provider Scanning Final Result documented in this encounter Visit Diagnoses Not on filedocumented in this encounter Additional Health Concerns Infection Onset Date Last Indicated Resolved Time CRE Comment:Contact Precautions (gown and gloves) RAMYA Au 09/25/22 08/16/2022 08/16/2022 MDR gram neg/ESBL Comment:Contact Precautions (gown and gloves) RAMYA Au 09/25/22 08/16/2022 08/16/2022 documented as of this encounter Care Teams Furnace Fitter Relationship Specialty Start Date End Date Juni Hays MD [address] [facility] [address], [place] [address] PCP - General Internal Medicine 08/18/24 Kingston Jain DO [address] [place] [address] [address] Consulting Physician Cardiovascular Disease 06/20/20 Candido Lobato MD [address] [facility], [facility] [address], [address], [address] [place] [address] Medical Oncology 05/02/23 [place] [address] [address] Physician Strong Nitric Operator Orthopedic Surgery 06/16/24 documented as of this encounter
--- OUTSIDE RECORDS SUMMARY | 2024-11-30 18:15 | XMS_ITS | Encounter Summary ---
Author Organization [facility] Address [address] [place] [address] Phone Care Team Providers Care Piano Teacher Name Role Phone Juni Hays MD Primary Care Provider [phone] Shivam Benedict MD Unavailable Radha Crews APRN, GIS SOFTWARE DEVELOPER Unavailable + [phone] Sacha Penn MD Unavailable [phone] Reason for Visit * Reason Comments Medication Refill Encounter Details Date Type Department Care Team (Late st Contact Info) Description 03/04/2022 Refill [facility] - Neurology [facility] [address] [place] [address] Sacha Penn MD [address] [place] [address] Medication Refill Social History Tobacco [...] migrainosus documented in this encounter Care Teams Piano Teacher Relationship Specialty Start Date End Date Juni Hays MD PCP - General Internal Medicine 10/17/20 Shivam Benedict MD [address] [place] [address] Consulting Physician Pulmonary Disease 12/27/21 Radha Crews, FACING BASTER JUMPBASTING, GIS SOFTWARE DEVELOPER [address] [place] [address] Nurse Practitioner Advanced Practice Nurse 01/04/22 Sacha Penn MD [address] [place] [address] Consulting Physician Neurology 07/25/23 documented as of this encounter
--- OUTSIDE RECORDS SUMMARY | 2024-11-30 18:15 | XMS_ITS | Continuity of Care Document ---
Author Organization [facility] Address [address] [facility] [address] [place] [address] Phone Care Team Providers Care Retail Financial Analyst Name Role Phone Joe Vidales MD, FACS Unavailable Unavailab le Allergies, Adverse Reactions, Alerts Substance Reaction Status Criticality No Known Allergies Active No Inform ation Medications Medication Instructions Dosage Effective Dates (start - stop) Status Comments ketorolac 0.5 % eye drops instill 1 drop in the operated eye 3 times a day for 1 month; to begin after being seen in the office for first post op visit. - Active prednisolone acetate 1 % eye drops,suspension Instill 1 drop into operated eye 4 times a day for 2 weeks, then 2 times a day for 2 weeks; to begin after being seen in the office for first post op visit. - Active aspirin 81 mg tablet,delayed release take 1 tablet by oral route every day 81 MG - Active cyanocobalamin (vit B-12) 1,000 mcg/mL injection solution inject 0.1 milliliter by intramuscular route every month 100 MCG - Active potassium chloride ER 20 mEq tablet,extended release take 1 tablet by oral route every day with food 20 MEQ - Active rizatriptan 10 mg tablet take 1 tablet by oral route once, may repeat at 2 hour intervals; do not exceed 30 mg in 24 hours as needed 10 MG - Active duloxetine 60 mg capsule,delayed release take 1 capsule by oral route every day 60 MG - Active OneTouch Delica Plus Lancet 30 gauge use by injection route 3 times every day - Active Eliquis 5 mg tablet take 1 tablet by oral route 2 times every day 5 MG - Active omeprazole 20 mg tablet,delayed release take 1 by oral route every day 1 - Active Dexcom G7 Sensor device - Active pen needle, diabetic 32 gauge x 5/32 use by injection route 4 times every day - Active Entresto 24 mg-26 mg tablet take 1 tablet by oral route 2 times every day 1.00 tablet - Active insulin lispro (U-100) 100 unit/mL subcutaneous pen inject by subcutaneous route 3 times every day per prescriber's instructions. Insulin dosing requires individualization. Not Available - Active cyclobenzaprine 5 mg tablet take 1 tablet by oral route 2 times every day as needed as needed 5 MG - Active pregabalin 75 mg capsule take 1 capsule by oral route 2 times every day 75 MG - Active ergocalciferol (vitamin D2) 1,250 mcg (50,000 unit) capsule take 1 by oral route every day 1 - Active fentanyl 75 mcg/hr transdermal patch apply 1 patch by transdermal route every 72 hours 75 MCG/H - Active Calcium 600 + D(3) 600 mg-5 mcg (200 unit) capsule take 2 by oral route every day 2 - Active naloxone 4 mg/actuation nasal spray spray 0.1 milliliter by intranasal route in 1 nostril may repeat dose every 2-3 minutes as needed alternating nostrils with each dose as needed 4 MG - Active atorvastatin 20 mg tablet take 1 tablet by oral route every day 20 MG - Active ropinirole 0.25 mg tablet take 1 tablet by oral route every day 0.25 MG - Active ondansetron 4 mg disintegrating tablet take 1 tablet by oral route every [address] on top of the tongue where they will dissolve, then swallow 4 MG - Active Trulicity 3 mg/0.5 mL subcutaneous pen injector inject (3MG) by subcutaneous route every week 3 MG - Active Lantus U-100 Insulin 100 unit/mL subcutaneous solution inject 12 units by subcutaneous route 2 times every day as per insulin protocol 12 units - Active Deep Sea Nasal 0.65 % spray aerosol spray 1 by nasal route every 6 hours 1 - Active oxycodone 5 mg tablet take 3 tablet by oral route every 6 hours as needed as needed 15 MG - Active midodrine 10 mg tablet take 1 tablet by oral route 3 times every day 10 MG - Active metoprolol tartrate 25 mg tablet take 0.5 tablet by oral route 2 times every day 12.5 MG - Active levothyroxine 125 mcg tablet take 1 tablet by oral route every morning on an empty stomach 30 minutes before breakfast 125 MCG - Active insulin syringe U-100 with needle 0.5 mL 31 gauge x 5/16 inject by injection route 2 times every day - Active Procedures Procedure Date Refraction Post-op Follow-up Visit Post-op Follow-up Visit Remove Cataract, Insert Lens No Charge Refraction Post-op Follow-up Visit Post-op Follow-up Visit Remove Cataract, Insert Lens No Charge Optomap Fundus Photos 024 IOLMaster IOLMaster SCODI, Retina No Charge Refraction Office/outpatient Visit, [facility] No Charge Orbscan Advance Directives Directive Yes / No Effective Date File Name No Information Encounters Encounter Description Practice Location Reason(s) For Visit Diagnoses Date Provider Providers Copied on Encounter [facility], [address] [place] [address] [employer] [address], [place], [place], [id number], tel:[phone] [place] No Information 4 Sobeida Diaz. [address], [address], [place], [place], [address], [place]. tel:[phone] [facility], [address] [address], [place], [place], [address], [place] tel:[phone] SEC [place]gie VERA Professional 2 Week CE/IOL PO (chief complaint) Epiretinal membrane (ERM) of right eyePost op visit 4 Sana OD Ingrid. [address] [place] [address] [employer] [address], [address], [place], [place], [address], [place]. tel:[phone] Doni Coles MD.Candido Lobato MD.Referrin g Provider: Joe Spann, [address] [place] [address] [employer] [address], [place], [address]. tel:[phone] [facility], [address] [place] [address] [address], [place], [place], [address], tel:[phone] SEC [place] VERA Professional Post-Op (chief complaint) Post op visit 4 Jazmine OD Dianna. [address] [place] [address] [employer], [address], [place], [place], [address], [place]. tel:[phone] Doni Coles MD.Candido Lobato MD.Referrin g Provider: Joe Spann, [address] [place] [address] [address] [address], [place], [address]. tel:[phone] [facility], [address] [place] [address] [address], [place], [place], [address], tel:[phone] [facility] [place] No Information 4 Sobeida Diaz. [address] [place] [address] [employer], [address], [place], [place], [address], [place]. tel:[phone] Referring Provider: Joe Spann, [address] [place] [address] [address], [place], [address]. tel:[phone] [facility], [address] [place] [address] [address], [place], [place], [address], [place] tel:[phone] SEC Reggie VERA Professional 2 Week CE/IOL PO (chief complaint) Post op visit 4 Sana OD Ingrid. [address] [place] [address] [address], [address], [place], [place], [address], [place]. tel:[phone] Doni Coles MD.Candido Lobato MD.Referrin g Provider: Joe Spann, [address] [place] [address] [employer] [facility] [address], [place], [address]. tel:[phone] [facility], [address] [place] [address] [address], [place], [place], [address], tel:[phone] SEC Reggie VERA Professional Post-Op (chief complaint) Post op visit 4 Jazmine Bustamante. [address] [place] [address] [employer], [address], [place], [place], [address], . tel:[phone] Doni Coles MD.Candido Lobato MD.Referrin g Provider: Joe Spann, [facility] [address], [place], [address]. tel:[phone] [facility], [address] [place], [place] [address] [employer] [address], [place], [place], [address], [phone] [facility] [place] No Information 4 Sobeida Diaz. [facility] [employer], [address], [place], [place], [address], [place]. tel:[phone] Referring Provider: Joe Spann, [facility] [employer] [address], [place], [address]. tel:[phone] [facility], [facility] [employer] [address], [place], [place], [address], [place] tel:[phone] [place] No Information 4 Sobeida Diaz. [facility] [address], [place], [place], [address], [place]. tel:[phone] Office/outpa tient Visit, [facility], [facility] [employer] [address], [place], [place], [address], [place] tel:[phone] [place] Cataract evaluation (chief complaint) Combined forms of age-related cataract, bilateralType 2 diabetes mellitus with both eyes affected by mild nonproliferat daren retinopathy without macular edema, with long-term current use of insulinEpiret inal membrane (ERM) of right eye Apr-1 5-202 4 Sobeida Diaz. [address] [place] [employer] [facility], [address], [place], [place], [address], [place]. tel:[phone] Specialist: Doni Coles MD, [address] [place], [address]. tel:[phone] alist: Candido Lobato MD, [address] [facility] [address], [place], [address]. tel:[phone] ring Provider: Coy Patel MD, [address] [facility], [place], [address]. tel:[phone] [facility], [address] [facility] [address], [place], [place], [address], [place] tel:[phone] [facility] Professional No Information 4 Jazmine OD Dianna. [address] [place] [employer] [facility], [address], [place], [place], [address], [place]. tel:[phone] Specialist: Doni Coles MD, [address] [place], [address]. tel:[phone] alist: Candido Lobato MD, [address] [facility] [address], [place], [address]. tel:[phone] Family History Family Member Type Diagnosis Age At Onset Problem Family history of Diabetes m ellitus Problem Family history of Macular de generation Payers Payer name Insurance type Covered democrat ID Authoriza tion(s) [facility] Commercial CI [id number] Social History Type Description Quantity Date Captured Comments Sex Female Smoking Status No Information Chief Complaint And Reason For Visit No Information Reason For Referral Reason For Referral No Information Plan Of Treatment Date Type Action Status Goal Tobacco cessation counseling completed Goal Tobacco cessation counseling completed Goal Tobacco cessation counseling completed History Of Present Illness Encounter Date Complaint History Of Prese nt Illness 2 Week CE/IOL PO The 58 year old patient presents for evaluation of 2 Week CE/IOL PO in the right eye. Pt states that vision does seem better and brighter than before. Pt states no pain or discomfort in OD. Post-Op The 58 year old patient presents for evaluation of 1 day CE/IOL STD Post-Op in the right eye. Pt to begin gtts after todays visit and expresses understanding of all instructions given. Pt states yesterday OD felt pretty tender and today is not bad. Pt states she feels her distance vision has improved already and she is pleased. 2 Week CE/IOL PO The 58 year old patient presents for evaluation of 2 Week CE/IOL PO in the left eye. Pt states no pain or discomfort in OS and pt states that vision in OS is good and seems better and brighter. Pt would like to proceed with surgery in OD. Pt complains of not being able to read small print, not being able to read road signs, and pt complains of headlights at night bother them as well. Post-Op The 58 year old patient presents for a 1 day post op CE OS. Patient to begin Pred and Poly qid OS and Ketorolac tid OS. Patient denies any pain or discomfort. Cataract evaluation The 58 year old patient presents for evaluation of Cataract evaluation in the right eye and left eye. 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 Pt last HA1C was 8.0? Pt. states she was scheduled to have cataract surgery last year but had to cancel due to health issues. Pt. is severely disabled due to poor vision. Pt. states she is not able to see her food when she eats. Pt. unable to do crossword puzzles. Pt. unable to read small print even with glasses and tv is also blurry. Pt. uses saline in her eyes tid. Functional Status Date Functional Assessmen t No Information Instructions Date Instruction Additional Infor luis Impression/Plan Impression/Plan Impression/Plan Impression/Plan Impression/Plan Assessments Type Assessment Date No Information Patient Care Teams Name Effective Dates (start - stop) Status Members No Information
--- OUTSIDE RECORDS SUMMARY | 2024-11-30 18:15 | XMS_ITS | Encounter Summary ---
Author Organization [facility] Healthcare Address [address] [place] [address] Care Team Providers Care Framing Specialist Name Role Phone Kingston Jain DO Unavailable [phone] Juni Hays MD Primary Care Provider [phone] Candido Lobato MD Unavailable [phone] Kelli Bassett Unavailable [phone] Juni Hays MD Primary Care Provider [phone] Encounter Details Date Type Department Care Team (Late st Contact Info) Description 06/07/2024 Documentation Internal Medicine Ivan Da Silva BS Social History Tobacco Use Types Packs/Day Years Used Date Smoking Tobacco: Former Cigarettes 1 5 1 983 - 1987 Smokeless Tobacco: Never Alcohol Use Standard Drinks/Week Comments No 0 (1 standard drink = 0.6 oz pur e alcohol) [facility] Utilities Answer Date Recorded In the past 12 months has [employer] electric, gas, oil, or water company threatened to shut off services in your home? No 06/07/2024 Social Connection and Isolat ion Panel [NHANES] Answer Date Recorded In a typical week, how many times do you talk on the phone with family, friends, or neighbors? More than three times a week 06/07/2024 How often do you get togethe r with friends or relatives? More than three times a week 06/07/2024 How often do you attend chur ch or mormonism services? Never 06/07/2024 Do you belong to any clubs o r organizations such as judaism groups, unions, fraternal or athletic groups, or school groups? No 06/07/2024 How often do you attend meet ings of the clubs or organizations you belong to? Never 06/07/2024 Are you , , di vorced, , never , or living with a partner? 06/07/2024 AUDIT-C Answer Date Recorded Q1: How often do you have a drink containing alcohol? Never 06/03/2024 Q2: How many drinks containi ng alcohol do you have on a typical day when you are drinking? Patient does not drink Q3: How often do you have si x or more drinks on one occasion? Never 06/03/2024 Overall Financial Resource Strain (CARDIA) Answe r Date Recorded How hard is it for you to pa y for the very basics like food, housing, medical care, and heating? Not hard at all 06/07/2024 PHQ-2 Answer Date Recorded PHQ-2 Total Score (If total score is 3 or more points, staff should administer the PHQ-9) 0 01/01/2024 Hunger Vital Sign Answer Date Recorded Within the past 12 months, y ou worried that your food would run out before you got the money to buy more. Never true 06/07/20 24 Within the past 12 months, t he food you bought just didn't last and you didn't have money to get more. Never true 06/07/2024 PRAPARE - Transportation Answer Date Re corded In the past 12 months, has l ack of transportation kept you from medical appointments or from getting medications? No 05/14 In the past 12 months, has l ack of transportation kept you from meetings, work, or from getting things needed for daily living? No 06/07/2024 Housing Stability Vital Sign Answer [place] e [...] place to sleep or slept in a senior care (including now)? No 01/06/2024 Housing Stability Vital Sign Answer [place] e Recorded In the last 12 months, was t here a time when you were not able to pay the mortgage or rent on time? No 06/07/2024 In the past 12 months, how m any times have you moved where you were living? 0 06/07/2024 At any time in the past 12 m [facility], were you homeless or living in a senior care (including now)? No 06/07/2024 Personal Safety Answer Date Recorded Have you ever been in or are you currently in a harmful physical or emotional relationship or is someone making you feel afraid or unsafe? Denies 06/04/2024 Education Answer Date Recorded What is the highest level of school you have completed or the highest degree you have received? 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 [facility] Chronic Pain Care Plan Chronic Care Management [...] on stairs Contact your local community or [facility] for information on exercise, fall prevention [...] documented as of this encounter Care Teams Framing Specialist Relationship Specialty Start Date End Date Juni Hays MD [address] [place] [address] DR [address] [place] [address] PCP - General Internal Medicine 08/04/20 08/17/24 Juni Hays MD [address] [address] PCP - General Internal Medicine 08/18/24 Kingston Jain DO [address] [place] [address] DR [address] [place] [address] Consulting Physician Cardiovascular Disease 06/20/20 Candido Lobato MD [address] [facility], [address] [place] [address] Medical Oncology 05/02/23 [place] [address] [facility] [address] [place] [address] Physician Audio Visual Specialist Orthopedic Surgery 06/16/24 documented as of this encounter
--- OUTSIDE RECORDS SUMMARY | 2024-11-30 18:15 | XMS_ITS | Encounter Summary ---
Author Organization [facility] Address [address] [place] [address] Phone Care Team Providers Care Alum Plant Supervisor Name Role Phone Juni Hays MD Primary Care Provider [phone] Shivam Benedict MD Unavailable Radha Crews APRN, DERRICK HAND Unavailable [phone] Sacha Penn MD Unavailable [phone] Reason for Visit * Reason Comments Medication Refill Encounter Details Date Type Department Care Team (Late st Contact Info) Description 03/23/2023 Refill [facility] - Neurology [facility] [address] [place] [address] Sacha Penn MD [address] [place] [address] Medication Refill Social History Tobacco [...] suspected to have Coronavirus/COVID-19? No / Unsure 03/14/2023 9:05 AM CDT documented as of this encounter Miscellaneous Notes * Telephone Encounter - India Costa RN - 03/24/2023 8:26 AM CDT Medication failed the protocol, provider to review and approve the medication order if appropriate. Requested Prescriptions Pending Prescriptions Disp Refills Botox 200 units Recon Soln [Pharmacy Med Name: BOTOX 200 UNIT SDV PWD] 1 Each 3 Sig: INJECT 155 UNITS INTO THE MUSCLES OF HEAD AND FACE EVERY 90 DAYS FOR MIGRAINE PROPHYLAXIS (DISCARD UNUSED PORTION) Not Delegated - Off Protocol Failed - 03/23/2023 6:25 AM Failed - This refill cannot be delegated Passed - Visit with relevant provider in past 12 months or upcoming 90 days Recent Visits Date Type Provider Dept 02/14/23 Procedure Visit Sacha Penn MD [facility] [place] 11/22/22 Procedure Visit Sacha Penn MD [facility] [place] 08/07/22 Procedure [facility] 05/01/22 Procedure Visit Sacha Penn MD [facility] Showing recent visits within past 365 days and meeting all other requirements Future Appointments Date Type Provider Dept 05/09/23 Appointment Sacha Penn MD [facility] Neurology [facility] [place] Showing future appointments within next 90 days and meeting all other requirements documented in this encounter Plan of Treatment Not on file documented as of this encounter Visit Diagnoses Not on filedocumented in this encounter Care Teams Alum Plant Supervisor Relationship Specialty Start Date End Date Juni Hays MD PCP - General Internal Medicine 10/17/20 Shivam Benedict MD [address] [place] [address] Consulting Physician Pulmonary Disease 12/27/21 Radha Crews, TABLEMAN, DERRICK HAND [address] [place] [address] Nurse Practitioner Advanced Practice Nurse 01/04/22 Sacha Penn MD [address] [place] [address] Consulting Physician Neurology 07/25/23 documented as of this encounter
--- OUTSIDE RECORDS SUMMARY | 2024-11-30 18:15 | XMS_ITS | Clinical Summary ---
Author Organization [facility] Address [address] [facility], [place] [address] Phone Care Team Providers Care Shale Processing Technician Name Role Phone Jnui Hays MD Primary Care Provider [phone] Shivam Benedict MD Unavailable Radha Crews APRN, SHUTTLE SPOTTER Unavailable + [phone] Sacha Penn MD Unavailable [phone] Allergies Active Allergy Reactions Criticality Noted Date Comments Amitriptyline Hcl Other (see Comments) High 02/05/20 23 Caused severe waking nightmares Sumatriptan Diarrhea,Nausea,Vomi ti ng 02/04/2023 Nitrofurantoin Monohyd Macro Diarrhea,Nausea,Vomiti ng 02/04/2023 Other Other (see Comments) High 02/04/2023 Trazadone; caused suicidal thoughts Sulfa Antibiotics Hives,Other (see Comments) High 02/04/2023 Non life threatening hepatitis Tizanidine Hcl Hallucinations Tramadol Unknown CONTRAINDICATION Medications aspirin EC 81 MG Tablet Delayed Response Take 81 mg by mouth daily. Active Blood Glucose Monitoring Suppl (ONE TOUCH ULTRA MINI) w/Device KitIndications: Type 2 diabetes mellitus without complication, without long-term current use of insulin (HCC) 1 Strip by Does not apply route 4 times daily. 360 Each 1 9 Active famotidine (PEPCID) 20 MG Tablet Take 20 mg by mouth nightly as needed for Heartburn. Active ondansetron (ZOFRAN) 4 MG Tablet Take 4 mg by mouth every 4 hours as needed for Nausea - 1st line. Active oxyCODONE (ROXICODONE) 5 MG Tablet Take 5 mg by mouth every 6 hours as needed for Moderate or more severe pain. Active insulin lispro (HumaLOG) 100 UNIT/ML Solution by Subcutaneous route 3 times daily (after meals). >150 : 2 units >200 : 4 units Active Calcium Carb-Cholecalci ferol (OYSTER SHELL CALCIUM + D PO) take 500-200 mg/mcg by mouth once daily Active buprenorphine 10 MCG/HR PATCH WEEKLY 1 Patch by Transdermal route every 7 days. Active cefUROXime (CEFTIN) 500 MG Tablet Take 500 mg by mouth 2 times daily. take 1 tablet by mouth twice daily (500 mg) 3 Active fluconazole (DIFLUCAN) 150 MG Tablet Take 150 mg by mouth once. take 1 tablet (150mg) by mouth 1 time now for 1 dose. Repeat in 7 days if symptoms persist 3 Active ketoconazole (NIZORAL) 2 % Cream Apply 2 % 2 times daily. Apply topically twice a day Active botulinum Toxin Type A (Botox) 200 units Recon SolnIndications :Chronic migraine without aura without status migrainosus, not intractable 155 Units by Intramuscular route every 90 days. 1 Each 3 4 Active Active Problems Problem Noted Date Diagnosed Date Restless legs syndrome (RLS) 10/17/2020 Aftercare following surgery for injury and traum a 02/28/2020 Type 2 diabetes mellitus wit hout complication, without long-term current use of insulin 12/28/2019 BI (obstructive sleep apnea) 10/28/2019 Non morbid obesity 10/28/2019 Frequent headaches 09/08/2018 Chronic migraine 09/08/2018 Cervicalgia 09/08/2018 Abdominal pain Biliary dyskinesia Family History Medical History Relation Name Comments Cancer Father SALIVORY, CAROT ID, CLAVICLE Chronic Obstructive Pulmonary Disease Father Heart Attack Father Heart Disease Father Breast Cancer Mother Heart Disease Mother Relation Name Status Comments Father Alive Mother Alive Social History Tobacco Use Types Packs/Day Years Used Date Smoking Tobacco: Former Cigarettes Q uit: 10/13/1987 Smokeless Tobacco: Never Tobacco Cessation:Counseling Given: No Alcohol Use Standard Drinks/Week Comments No 0 (1 standard drink = 0.6 oz pur e alcohol) Sexually Active Control Partners Comments Yes Comments No Sex and Gender Information Value Date Recorded Sex Assigned at Not on file Legal Sex Female 11:41 PM CDT Gender Identity Not on file Sexual Orientation Not on file Last Filed Vital Signs Vital Sign Reading Time Taken Comments Blood Pressure 108/62 03/14/2023 9:47 AM CDT Pulse 88 03/14/2023 9:47 AM CDT Temperature 35.9 C (96.7 F) 03/14/2023 9:47 AM CDT Respiratory Rate 18 03/14/2023 9:47 AM CDT Oxygen Saturation 96% 03/14/2023 9:47 AM CDT Inhaled Oxygen Concentration - - Weight 59.9 kg (132 lb) 02/18/2023 12:00 AM CDT md visit Height 160 cm (5' 3 ) 02/12/2023 11:42 AM CDT Body Mass Index 23.38 02/12/2023 11:42 AM CDT Plan of Treatment Health Maintenance Due Date Last Done Comments Diabetes: Foot Exam 1963 Hepatitis C Virus (HCV) Screening 1963 Diabetes: Nephropathy Screening 1981 Cologuard 2013 Immunochemical Fecal Occult Blood 2013 Pneumococcal Immunization (50+ years) (2 of 2 - PCV) 07/10/2021 07/10/2020 Respiratory Syncytial Virus (RSV) Immunization (Adult) (1 - Risk 60-74 years 1-dose series) 2023 Mammogram 04/01/2024 04/01/2023, 05/0 02/2022, 02/12/2021, Additional history exists Influenza Immunization (#1) 06/13/202409/13, 07/13/2022, 07/10/2020, Additional history exists SARS-COV-2 Immunization ( season) 2024 09/27/2021, 01/15/2021, 12/18/2020 Diabetes: Eye Exam 01/25/2025 01/26/2024 Diabetes: Hemoglobin A1c 05/19/2025 025, 08/23/2024, 06/07/2024, Additional history exists Colonoscopy 02/06/2032 02/05/2022, 07/08/2012 Colorectal Cancer Screening 02/06/2032 02/05/2022, 07/08/2012 DTaP/Tdap/Td Immunization Discontinued 09/02/2018 TdaP Immunization Completed 09/02/2018 Zoster Immunization Completed 03/23/2019, 9 Pneumococcal Immunization Combined Discontinued 07/10/2020 Hepatitis B Immunization Aged Out No longer eligible based on patient's age to complete this topic Meningococcal Immunization (ACWY) Aged Out No longer eligible based on patient's age to complete this topic Rotavirus Immunization Aged Out No lo nger eligible based on patient's age to complete this topic Medical Devices Implanted Type Area Orchard Pruner Device Identifier Shelf Expiration Date Model / Serial / Lot 3 Hole Humeral Plate Implanted:Qty: 1 on 02/28/2020 by Prosper Tolbert MD at [facility] Left: Shoulder DePuy 241.901 / 241.901 / N/A 28 Locking Screw Implanted:Qty: 1 on 02/28/2020 by Prosper Tolbert MD at [facility] Left: Shoulder 212.110 / 212.110 / N/A 38 Locking Screw Implanted:Qty: 1 on 02/28/2020 by Prosper Tolbert MD at [facility] Left: Shoulder DePuy 212.116 / 212.116 / N/A 34 Locking Screw Implanted:Qty: 3 on 02/28/2020 by Prosper Tolbert MD at [facility] Left: Shoulder 212.113 / 212.113 / N/A 30 Locking Screw Implanted:Qty: 1 on 02/28/2020 by Prosper Tolbert MD at [facility] Left: Shoulder DePuy 212.111 / 212.111 / N/A 32 Locking Screw Implanted:Qty: 1 on 02/28/2020 by Prosper Tolbert MD at [facility] Left: Shoulder DePuy 212.112 / 212.112 / N/A 26 Locking Screw Implanted:Qty: 1 on 02/28/2020 by Prosper Tolbert MD at [facility] Left: Shoulder DePuy 212.109 / 212.109 / N/A 26 Non Locking Screw Implanted:Qty: 1 on 02/28/2020 by Prosper Tolbert MD at [facility] Left: Shoulder DePuy 204.826 / 204.826 / N/A Explanted Type Area Orchard Pruner Device Identifier Shelf Expiration Date Model / Serial / Lot 30 Nonlocking Screw Explanted:Qty: 1 on 02/28/2020 by Prosper Tolbert MD at [facility] Left: Shoulder DePuy 204.830 / 204.830 / N/A Procedures Procedure Name Priority Date/Time Associated Diagnosis Comments POCT GLYCOSYLATED HEMOGLOBIN Routine 09/19/2019 8:49 AM SAND MILL OPERATOR Type 2 diabetes mellitus without complication, without long-term current use of insulin (HCC) COLONOSCOPY Routine 07/08/2012 from Last 3 Months or Most Recently Relevant to Health Maintenance Results * (ABNORMAL) POCT GLYCOSYLATED HEMOGLOBIN (09/19/2019 8:49 AM SAND MILL OPERATOR) HGB-A1C 11.6(A) 4 - 6 09/19/2019 8:49 AM SAND MILL OPERATOR us Betina Mcpherson DIAL MOUNTER, BALE OPENER POINT OF CARE GINGER STEPHANIE (MANUAL) Final Result * COLONOSCOPY (07/08/2012) us Jaspreet Pitts DO PROCEDURE/MINOR SURGICAL ORDERA BLES Final Result from Last 3 Months or Most Recently Relevant to Health Maintenance Insurance MEDICARE [facility] Advance Directives * Full Code (Latest Code Status on File) Date Activated Date Inactivated Comments 02/12/2023 6:41 AM Care Teams Shale Processing Technician Relationship Specialty Start Date End Date Juni Hays MD PCP - General Internal Medicine 10/17/20 Shivam Benedict MD [address] [place] [address] Consulting Physician Pulmonary Disease 12/27/21 Radha Crews APRN, SHUTTLE SPOTTER [address] [place] [address] Nurse Practitioner Advanced Practice Nurse 01/04/22 Sacha Penn MD [address] [place] [address] Consulting Physician Neurology 07/25/23
--- OUTSIDE RECORDS SUMMARY | 2024-11-30 18:15 | XMS_ITS | Encounter Summary ---
Author Organization [facility] Address [address] [place] [address] Phone Care Team Providers Care Bag Valver Name Role Phone Juni Hays MD Primary Care Provider [phone] Shivam Benedict MD Unavailable Radha Crews APRN, COKE BURNER Unavailable + [phone] Sacha Penn MD Unavailable [phone] Reason for Visit * Reason Comments Medication Refill Encounter Details Date Type Department Care Team (Late st Contact Info) Description 05/09/2022 Refill [facility] - [facility] [address] [place] [id number] Radha Crews APRN, COKE BURNER [address] [place] [address] Medication Refill Social History Tobacco Use Types [...] suspected to have Coronavirus/COVID-19? No / Unsure 05/01/2022 9:53 AM CDT documented as of this encounter Plan of Treatment Not on file documented as of this encounter Visit Diagnoses Not on filedocumented in this encounter Care Teams Bag Valver Relationship Specialty Start Date End Date Juni Hays MD PCP - General Internal Medicine 10/17/20 Shivam Benedict MD [address] [place] [address] Consulting Physician Pulmonary Disease 12/27/21 Radha Crews, INFORMATICS SPECIALIST, COKE BURNER [address] [place] [address] Nurse Practitioner Advanced Practice Nurse 01/04/22 Sacha Penn MD [address] [place] [address] Consulting Physician Neurology 07/25/23 documented as of this encounter
--- OUTSIDE RECORDS SUMMARY | 2024-11-30 18:15 | XMS_ITS | Encounter Summary ---
Author Organization [facility] Healthcare Address [address] [place] [address] Care Team Providers Care Director Of Home Economics Name Role Phone Kingston Jain DO Unavailable [phone] Candido Lobato MD Unavailable [phone] Kelli Bassett Unavailable [phone] Juni Hays MD Primary Care Provider [phone] Reason for Visit * Auth/Cert (Routine) Specialty Diagnoses / Procedures Referred By Contac t Referred To Contact Diagnoses 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) 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) [I50.42] Procedures NH IM/REPL CARTD SINUS BAROREFLX ACTIV DEV TOT SYST RIGHT BAROSTIM PLACEMENT Referral ID Status Reason Start Date Expiration Date Visits Re quested Visits Authorized [id number] 1 1 Encounter Details Date Type Department Care Team (Latest Contact Info) Description 11/18/2024 5:40 AM MANAGER WEB APPLICATION - 11/30/2024 5:05 PM MANAGER WEB APPLICATION Hospital Encounter [facility] [address] [place] [address] [place] [id number] [place] [address] Acute on chronic systolic congestive heart failure (CMS/HCC) (HCC) (Primary Dx); Atrial thrombus; Uncontrolled type 2 diabetes mellitus with hyperglycemia (HCC) Discharge Disposition: Discharge to SNF Social History Tobacco Use Types Packs/Day Years Used Date Smoking Tobacco: Former Cigarettes 1 5 1 983 1987 Smokeless Tobacco: Never Alcohol Use Standard Drinks/Week Comments No 0 (1 standard drink = 0.6 oz pur e alcohol) [facility] Utilities Answer Date Recorded In the past 12 months has [employer], gas, oil, or water [employer] threatened to shut off services in your [...] week 11/22/2024 How often do you attend [facility] or [facility] services? More than 4 times per year [...] place to sleep or slept in a chcf (including now)? No 01/06/2024 Housing Stability Vital Sign Answer [place] e Recorded In the last 12 months, was t here a time when you were not able to pay the mortgage or rent on time? No 11/22/2024 In the past 12 months, how m any times have you moved where you were living? 0 11/22/2024 At any time in the past 12 m [facility], were you homeless or living in a chcf (including now)? No 11/22/2024 Personal Safety Answer [...] on file Legal Sex Female 2:31 PM MANAGER WEB APPLICATION Gender Identity Not on file Sexual Orientation Not on file Occupation Industry Job Start Date Job End Date On Disability Not on file Not on file Not on file documented as of this encounter Last Filed Vital Signs Vital Sign Reading Time Taken Comments Blood Pressure 101/75 11/30/2024 12:37 PM MANAGER WEB APPLICATION Pulse 64 11/30/2024 12:37 PM MANAGER WEB APPLICATION Temperature 36.8 C (98.2 F) 11/30/2024 11:25 AM MANAGER WEB APPLICATION Respiratory Rate 16 11/30/2024 12:3 7 PM MANAGER WEB APPLICATION Oxygen Saturation 100% 11/30/2024 12: 37 PM MANAGER WEB APPLICATION Inhaled Oxygen Concentration - - Weight 62.1 kg (136 lb 14.5 oz) 11/19/2024 7:20 PM MANAGER WEB APPLICATION Height 160 cm (5' 2.99 ) 11/19/2024 7:20 PM MANAGER WEB APPLICATION Body Mass Index 24.26 11/19/2024 7:20 PM MANAGER WEB APPLICATION documented in this encounter Medications at Time of Discharge acetaminophen (TYLENOL) 325 mg tablet Take 2 tablets (650 mg total) by mouth every 6 (six) hours 30 tablet 11 4 amiodarone (PACERONE) 200 mg tablet Take 1 tablet (200 mg total) by mouth daily 90 tablet 1 4 03/30/20 25 aspirin 81 mg enteric coated tablet Take 1 tablet (81 mg total) by mouth daily atorvastatin (LIPITOR) 20 mg tablet Take 1 tablet (20 mg total) by mouth every evening bisacodyL (DULCOLAX) 10 mg suppository Insert 1 suppository (10 mg total) into the rectum daily as needed for constipation (If no results 24 hours after milk of magnesia (may give bisacodyl tablet if tolerating PO)) 4 bisacodyl EC (DULCOLAX EC) 5 mg EC tablet Take 2 tablets (10 mg total) by mouth daily as needed for constipation (If no results 24 hours after milk of magnesia (may give bisacodyl supp if not tolerating PO)) 30 tablet 4 buprenorphine (BUTRANS) 10 mcg/hourIndications :severe chronic pain with opioid tolerance Place 1 patch on the skin once a week 4 patch 2 4 Calcium 500 + D 500 mg-5 mcg (200 unit) per tablet TAKE 1 TABLET BY MOUTH DAILY 90 tablet 4 calcium carbonate (TUMS) 500 mg (200 mg elemental calcium) chewable tablet Take 2 tablet/chew tab (1,000 mg total) by mouth 3 (three) times a day as needed for heartburn or indigestion 4 08/30/20 25 cyanocobalamin (Vitamin B-12) 1,000 mcg/mL injection Inject 1 mL (1,000 mcg total) into the muscle as instructed every 30 (thirty) days 1 mL 11 4 cyclobenzaprine (FLEXERIL) 10 mg tablet Take 1 tablet (10 mg total) by mouth 3 (three) times a day as needed for muscle spasms 60 tablet [address] (CYMBALTA) 60 mg capsule Take 1 capsule (60 mg total) by mouth daily 90 capsule 3 3 Entresto 24-26 mg tablet Take 0.5 tablets by mouth 2 (two) times a day 90 tablet 3 5 11/11/19 26 metoprolol tartrate (LOPRESSOR) 25 mg immediate release tablet Take 0.5 tablets (12.5 mg total) by mouth 2 (two) times a day 90 tablet 3 4 05/07/20 25 midodrine (PROAMATINE) 10 mg tablet Take 1 tablet (10 mg total) by mouth 3 (three) times a day before meals 90 tablet 5 4 03/30/20 25 ondansetron (ZOFRAN) 4 mg tablet Take 1 tablet (4 mg total) by mouth every 8 (eight) hours as needed for nausea or vomiting 20 tablet [address] (PROTONIX) 40 mg EC tablet TAKE 1 TABLET(40 MG) BY MOUTH DAILY 30 tablet 3 4 potassium chloride ER 20 mEq CR tablet TAKE 1 TABLET(20 MEQ) BY MOUTH DAILY 30 tablet 11 4 pregabalin (LYRICA) 75 mg capsule Take 1 capsule (75 mg total) by mouth 2 (two) times a day 180 capsule 3 4 04/07/20 25 rizatriptan (MAXALT) 10 mg tablet Take 1 tablet (10 mg total) by mouth once as needed for migraine May repeat in 2 hours if unresolved. Do not exceed 30 mg in 24 hours. 9 tablet 11 4 rOPINIRole (REQUIP) 0.25 mg tablet Take 1 tablet (0.25 mg total) by mouth nightly sodium chloride (OCEAN) 0.65 % nasal spray Administer 1 spray into each nostril every 2 (two) hours as needed for congestion 4 08/30/20 25 spironolactone (ALDACTONE) 25 mg tablet Take 1 tablet (25 mg total) by mouth daily 30 tablet 11 4 09/30/20 25 artifi.tears,hyprom ellose,,PF, 0.3 % drops Administer 2 drops into affected eye(s) 3 (three) times a day as needed (dry eye) 14 mL 11 4 blood-glucose sensor (Dexcom G7 Sensor) deviceIndications:U ncontrolled type 2 diabetes mellitus with hyperglycemia (HCC),Insulin long-term use (CMS/HCC) (HCC) USE DIRECTED, CHANGE SENSOR EVERY 10 DAYS 9 each 3 5 ergocalciferol (VITAMIN D) 50,000 unit capsule Take 1 capsule (50,000 Units total) by mouth once a week Fridays 13 capsule 3 4 furosemide (LASIX) 40 mg tablet Take 1 tablet (40 mg total) by mouth 2 (two) times a day 5 hydrocortisone (ANUSOL-HC) 2.5 % rectal cream INSERT RECTALLY TO THE AFFECTED AREA FOUR TIMES DAILY NEEDED FOR HEMORRHOIDS 30 g 2 5 hydrocortisone (ANUSOL-HC) 25 mg suppository Insert 1 suppository (25 mg total) into the rectum 2 (two) times a day insulin glargine 100 unit/mL (3 mL) pen for injection Inject 27 Units under the skin daily before breakfast 5 insulin lispro (HumaLOG, ADMELOG) 100 unit/mL pen for injection Inject 15 Units under the skin 3 (three) times a day with meals Lispro 15 units three times daily with meals + correction 2 units for every 50 points greater than 150 mg/dl 5 insulin lispro (HumaLOG, ADMELOG) 100 unit/mL pen for injection Inject 7 Units under the skin 4 (four) times a day as needed (w/ snacks) Lispro 7 units Q4 hours as needed for snacks with greater than 20 grams of carbohydrate. 5 insulin lispro (HumaLOG, ADMELOG) 100 unit/mL pen for injection Inject 1-10 Units under the skin nightly Lispro bedtime correction 1 unit for every 50 points greater than 150 mg/dl 5 levothyroxine (SYNTHROID) 125 mcg tablet Take 1 tablet (125 mcg total) by mouth daily 90 tablet 3 4 metFORMIN XR (GLUCOPHAGE XR) 500 mg 24 hr tabletIndications:U ncontrolled type 2 diabetes mellitus with hyperglycemia (HCC) Take 1 tablet (500 mg total) by mouth 2 (two) times a day 2 tabs po daily (hold if nause/vomit or not feeling well). 5 mirtazapine (REMERON RAOUL-TAB) 15 mg disintegrating tablet Take 1 tablet (15 mg total) by mouth nightly 5 12/24/19 25 OneTouch Delica Plus Lancet 30 gauge misc USE 1 LANCET TO TEST BLOOD SUGAR THREE TIMES A DAY 50 each 3 4 oxyCODONE (ROXICODONE) 10 mg tablet Take 1 tablet (10 mg total) by mouth every 6 (six) hours as needed for pain 5 tablet 5 pen needle, diabetic (BD Tereza 2nd Gen Pen Needle) 32 gauge x needleIndications:U ncontrolled type 2 diabetes mellitus with hyperglycemia (HCC) Use 4 times a day 400 each 3 4 polyethylene glycol (MIRALAX) 17 gram/dose bulk powderIndications:c onstipation Take 17 g by mouth daily 5 polyvinyl alcohol-povidone (REFRESH CLASSIC) 1.4-0.6 % dropperette Administer 2 drops into both eyes 4 (four) times a day as needed for dry eyes 5 senna-docusate (PERICOLACE) 8.6-50 mg Take 1 tablet by mouth 2 (two) times a day 5 teriparatide (FORTEO) 20 mcg/dose (600mcg/2.4mL) injectionIndication s:postmenopausal osteoporosis and high fracture risk Inject 0.08 mL (20 mcg total) under the skin daily on abdomen or thigh. Lie down 10 minutes after injection. 2.4 mL 11 5 11/05/19 26 warfarin (COUMADIN) 3 mg tabletIndications:L V thrombus Take 1 tablet (3 mg total) by mouth daily documented as of this encounter Ordered Prescriptions Prescription Sig Dispense Quantity Refills Last Filled Start Date End Date insulin lispro (HumaLOG, ADMELOG) 100 unit/mL pen for injection Inject 1-10 Units under the skin nightly Lispro bedtime correction 1 unit for every 50 points greater than 150 mg/dl 11/30/2024 metFORMIN XR (GLUCOPHAGE XR) 500 mg 24 hr tabletIndications:U ncontrolled type 2 diabetes mellitus with hyperglycemia (HCC) Take 1 tablet (500 mg total) by mouth 2 (two) times a day 2 tabs po daily (hold if nause/vomit or not feeling well). 11/30/2024 insulin lispro (HumaLOG, ADMELOG) 100 unit/mL pen for injection Inject 7 Units under the skin 4 (four) times a day as needed (w/ snacks) Lispro 7 units Q4 hours as needed for snacks with greater than 20 grams of carbohydrate. 11/30/2024 insulin lispro (HumaLOG, ADMELOG) 100 unit/mL pen for injection Inject 15 Units under the skin 3 (three) times a day with meals Lispro 15 units three times daily with meals + correction 2 units for every 50 points greater than 150 mg/dl 11/30/2024 insulin glargine 100 unit/mL (3 mL) pen for injection Inject 27 Units under the skin daily before breakfast 11/30/2024 warfarin (COUMADIN) 3 mg tabletIndications:L V thrombus Take 1 tablet (3 mg total) by mouth daily 11/30/2024 polyvinyl alcohol-povidone (REFRESH CLASSIC) 1.4-0.6 % dropperette Administer 2 drops into both eyes 4 (four) times a day as needed for dry eyes 11/26/2024 polyethylene glycol (MIRALAX) 17 gram/dose bulk powderIndications:c onstipation Take 17 g by mouth daily 11/26/2024 senna-docusate (PERICOLACE) 8.6-50 mg Take 1 tablet by mouth 2 (two) times a day 11/26/2024 oxyCODONE (ROXICODONE) 10 mg tablet Take 1 tablet (10 mg total) by mouth every 6 (six) hours as needed for pain 5 tablet 11/24/2024 mirtazapine (REMERON RAOUL-TAB) 15 mg disintegrating tablet Take 1 tablet (15 mg total) by mouth nightly 11/23/2024 5 furosemide (LASIX) 40 mg tablet Take 1 tablet (40 mg total) by mouth 2 (two) times a day 11/23/2024 insulin lispro (HumaLOG, ADMELOG) 100 unit/mL pen for injection Inject 9 Units under the skin 4 (four) times a day as needed (with snacks >20g carbs) 11/30/2024 5 insulin lispro (HumaLOG, ADMELOG) 100 unit/mL pen for injection Inject 20 Units under the skin 3 (three) times a day with meals Lispro 20 units three times daily with meals + correction 2 units for every 50 points greater than 150 mg/dl 11/30/2024 5 insulin lispro (HumaLOG, ADMELOG) 100 unit/mL pen [...] Visit Summary for Sliding Scale Insulin Instructions. 11/30/2024 5 insulin glargine 100 unit/mL (3 mL) pen for injection Inject 27 Units under the skin nightly 11/30/2024 5 insulin glargine (LANTUS, SEMGLEE) 100 unit/mL vial for injectionIndication s:Diabetes Mellitus Inject 30 Units under the skin every morning 11/26/2024 5 warfarin (COUMADIN) 2 mg tabletIndications:L V thrombus Take 1 tablet (2 mg total) by mouth daily 11/23/2024 5 insulin lispro (HumaLOG, ADMELOG) 100 unit/mL pen for injection Inject 5 Units under the skin 3 (three) times a day with meals (plus blood glucose mg/dL 150-199: 2 units, 200-249: 4 units, 250-299: 6 units, 300-349: 8 units, 350 or greater: 10 units. Notify provider for blood glucose greater than 299 mg/dL. Refer to After Visit Summary for Sliding Scale Insulin Instructions. 11/23/2024 5 documented in this encounter Discharge Disposition Disposition Code Departure Means Destination Comment s Discharge to SNF documented in this encounter Progress Notes * Yeimi Wilkinson, OT - 11/29/2024 3:11 PM CST Occupational Therapy Occupational Therapy Progress Note NOTE: This is a summary note of the lara components of the treatment session. For full details, review chart for all flowsheets documented on by this occupational therapy clinician on this date. Vitalsigns documented in vital signs flowsheet. Care plan progress documented in Care Plan Activity. For questions, please review the treatment team and contact the occupational therapist currently assigned to this patient. If an occupational therapist is not assigned to this patient, please call [phone]. 11/29/24 1511 General Session Type Treatment OT Received On 11/29/24 Safe Environment Arm band checked;Patient found in supine;Gait belt utilized for all out of bed mobility Subjective Agreeable to Therapy Family/Caregiver Present No Precautions Precautions Fall risk Precaution Comments Verbally reviewed precautions prior to mobility Pain Assessment Pain Assessment No/denies pain Cognition Overall Cognitive Status WFL Arousal/Alertness Alert Attention Span Appears intact Memory Appears intact Current communication Appears Intact Orientation Oriented X4 (person, place, time, situation) Following Commands Follows all commands and directions without difficulty Safety Judgment Good awareness of safety precautions Awareness of Errors Good awareness of errors made Insight Fully aware of deficits Problem Solving Able to problem solve independently Compliance/Behavior Easy to engage Perseveration Not present Balance Balance Yes Static Sitting Balance Static Sitting-Balance Support Feet supported;Bilateral upper extremity supported Static Sitting-Sitting Surface Bed Static Sitting-Level of Assistance Independent Dynamic Sitting Balance Dynamic Sitting-Balance Support Feet supported Dynamic Sitting-Balance Forward lean;Reaching for objects Dynamic Sitting-Sitting Surface Bed Dynamic Sitting-Level of Assistance Distant supervision Dynamic Sitting-Comments safety Static Standing Balance Static Standing-Balance Support Bilateral upper extremity supported Static Standing-Standing Surface Floor Static Standing-Level of Assistance Close supervision Static Standing-Comment/# of Minutes safety Dynamic Standing Balance Dynamic Standing-Balance Support Bilateral upper extremity supported Dynamic Standing-Balance (marching in standing) Dynamic Standing-Standing Surface Floor Dynamic Standing-Level of Assistance Minimum assistance Dynamic Standing-Comments balance and safety ADL ADLS (WDL) X Grooming Grooming: Where assessed Edge of bed Grooming: Level of assistance Moderate Assist Grooming: Assistance with Increased time to complete;Balance;Safety Bed Mobility Bed Mobility No Transfers Transfer Yes Transfer 1 Transfer From 1 Sit Transfer Type 1 To and from Transfer to 1 Stand Technique 1 Sit to stand;Stand to sit Transfer Device 1 Wheeled walker Transfer Level of Assistance 1 Standby Assist Trials/Comments 1 x3 reps; SPV for safety; quickly fatigues; when marching in standing, R knee tristan when shifting weight onto RLE requiring Min A for standing balance Therapeutic Exercise - ROM/STRENGTH ROM/STRENGTH Yes Other Exercise pt able to complete 3-5 reps of shoulder elevation; cues for breathing; rest breaks required Other Comments Comments Pt is motivated to participate in therapy. She is always willing to do what she can duringsessions, benefiting from rest breaks and cues for breathing when fatiguing. She demonstrates the need for continued skilled OT services to progress her strength, activity tolerance and functional mobility, so she can return to her PLOF and live a safe, more independent life. Daily Activity - 6 Clicks Putting on and taking off regular lower body clothing 3 Bathing 3 Toileting 3 Putting on and taking off upper body clothing 3 Personal Grooming 2 Eating Meals 4 Total Score (range 6-24) 18 Score Interpretation 38.66 Safe Environment End of Therapy Session Safe Environment End of Therapy Session Patient left sitting at edge of bed;Call light within reach;Overbed table within reach Assessment Problem List Decreased mobility;Decreased endurance;Decreased ADL independence;Decreased IADL independence;Decreased functional mobility;Pain;Decreased frequency/variety of movement Barriers to Discharge Current Mobility Status;Current ADL Status Barrier Comments fall risk Plan Plan Continue with current plan;If this is the last note, consider this the discharge summary Recommendation/Plan OT Recommendation Long-Term Facility Recommend SNF due to Risk of injury at home;Unable to safely care for self in the home;Skilled therapy needed to address care for self in the home;Skilled therapy needed to address functional deficits;Skilled therapy needed for patient to return to prior level of independence Patient at high risk for Falls;Readmission;Injury due to decreased ability to care for self;Injury due to reduced functional status;Injury due to balance deficits;Injury at home as patient has not returned to prior level of function;Developing impaired skin integrity OT Frequency during current admission 3-5x/wk Treatment/Interventions during current admission ADL/IADL retraining;Balance Training;Bed mobility;Compensatory technique education;Endurance training;Functional activity;Functional mobility training;Functional transfer training;Strengthening;Therapeutic activity;Therapeutic exercise;Transfer traini shane Progress during current admission Progressing toward goals OT - Next Appointment 12/01/24 OT Evaluation Complete Yes OT Time Calculation OT Start Time 1511 OT Stop Time 1534 OT Time Calculation (min) 23 min Multi-Disciplinary Problems (from Occupational Therapy) Active Problems Problem: Dressings Lower Extremities Start Date: 11/19/24 Goal Start Date Expected End Date End Date STG - Patient to complete lower body dressing with SPV 11/19/24 12/01/24 -- Problem: Transfers Start Date: 11/19/24 Goal Start Date Expected End Date End Date STG - Patient will perform toilet transfer with SPV 11/19/24 12/01/24 -- Problem: OT Misc Start Date: 11/19/24 Goal Start Date Expected End Date End Date OT LTG - Patient will perform all ADL/IADLs with SPV using AE as needed. 11/19/24 12/08/24 -- GER WEB APPLICATION * Paras Harrison, DPT - 11/29/2024 8:58 AM CST Physical Therapy Progress Note NOTE: This is a summary note of the lara components of the treatment session. For full details, review chart for all flowsheets documented on by this physical therapy clinician on this date. Vital signs documented in vital signs flowsheet. Care plan progress documented in Care Plan Activity. For questions, please review the treatment team and contact the PT or PROJECT CONTROL MANAGER currently assigned to this patient. If a physical therapy clinician is not assigned to this patient, please call [phone]. 11/29/24 0858 PT Last Visit Session Type Treatment PT Received On 11/29/24 Safe Environment Patient found in supine;Gait belt utilized for all out of bed mobility Subjective Agreeable to Therapy Subjective Comment hoping to be discharged today Family/Caregiver Present No Precautions Precautions Fall risk;BI Activity Tolerance Activity Tolerance Comments alex: somewhat hard Pain Assessment Pain Assessment 0-10 Pain Score 5 - Moderate pain Pain Type Chronic pain Pain Location Back (Lumbar) Pain Interventions Medication (See MAR) Cognition Arousal/Alertness Alert Following Commands Follows all commands and directions without difficulty Safety Judgment Good awareness of safety precautions Static Sitting Balance Static Sitting-Balance Support Feet supported;No upper extremity supported Static Sitting-Sitting Surface Bed Static Sitting-Level of Assistance Independent Static Standing Balance Static Standing-Balance Support Bilateral upper extremity supported Static Standing-Standing Surface Floor Static Standing-Level of Assistance Minimum assistance Static Standing-Comment/# of Minutes use of w/w Bed Mobility 1 Bed Mobility From 1 Edge of bed Bed Mobility Type 1 To Bed Mobility to 1 Supine Level of Assistance 1 Modified Independent Transfer 1 Transfer From 1 Sit Transfer Type 1 To and from Transfer to 1 Stand Transfer Device 1 Wheeled walker Transfer Level of Assistance 1 Standby Assist Trials/Comments 1 performed x 3 reps Transfers 2 Transfer From 2 Bed Transfer Type 2 To and from Transfer to 2 Commode-standard Technique 2 Stand and step;To right;To left Transfer Device 2 No device Transfer Level of Assistance 2 Standby Assist Trials/Comments 2 BUE support on arms of commode and bedrail Ambulation Functional Ambulation Category 1 Ambulation Yes Ambulation 1 Ambulation Comments 1 performed pre-gait activity of marching in place x 2 bouts; two steps bilaterally on first bout and three reps bilaterally on second bout; pt with decreased weight shift to RLE and decreased step height on LLE 2/2 right hip weakness consistent with fracture and s/p fixation inpast; seated rest break required between bouts 2/2 low activity tolerance Stairs Stairs No Basic Mobility - 6 Click How much difficulty does the patient have: Turning over in bed 4 How much difficulty does the patient currently have: Sitting down and standing up from a chair witharms? 3 How much difficulty does the patient have: Moving from lying on back to sitting on the side of the bed? 4 How much difficulty does the patient have: Moving to and from a bed to a chair including wheelchair? 3 How much help does the patient currently need: Walk in hospital room? 3 How much help from another person does the patient currently need: Climbing 3-5 steps with a railing? 1 Total 6 Click Score (range 6-24) 18 Safe Environment End of Therapy Session Safe Environment End of Therapy Session Patient left sitting at edge of bed;Call light within reach;Overbed table within reach Assessment Prognosis Good Problem List Reduced mobility;Debility;Gait deviations;Decreased strength;Decreased range of motion;Decreased endurance;Impaired balance;Pain Plan Plan Continue with current plan;If this is the last note, consider this the discharge summary Recommendation/Plan PT Recommendation/Plan Long-Term Facility Recommend SNF due to Risk of injury at home;Unable to safely care for self in the home;Skilled therapy needed to address care for self in the home;Skilled therapy needed to address functional deficits;Skilled therapy needed for patient to return to prior level of independence Patient at high risk for Falls;Readmission;Injury due to decreased ability to care for self;Injury due to reduced functional status;Injury due to balance deficits;Injury at home as patient has not returned to prior level of function PT Frequency during current admission 3-5x/wk Treatment/Interventions during current admission Balance Training;Bed mobility;Endurance training;Equipment eval/education;Functional activity;Functional transfer training;Gait training;Neuromuscularre- education;Positioning;Range of motion;Stair training;Strengthening;Therapeutic activity;Therapeutic exercise;Transfer training;Wheelchair mobility/management Progress during current admission Improving as expected PT - Next Appointment 12/01/24 PT Time Calculation PT Start Time 0858 PT Stop Time 0923 PT Time Calculation (min) 25 min Multi-Disciplinary Problems (from Physical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 Vascular Surgery- Pager: [phone] Attending: Hesham Madsen MD Today's Date: 11/18/2024 Room/Bed: OR/- Admit Date: 11/18/2024 Code Status: Prior Patient centered goal: Agree with patient centered goal: Subjective Chief complaint: CHF Events During This Hospitalization: 11/18: OR for Right carotid barostim placement Events Over Last 24 Hours: OR today to 75OU postoperatively. Arrives HDS and denies nausea, vomiting, chest pain, shortness ofbreath, fevers, or neurological deficits. Will continue to monitor bp overnight. Allergies Allergen Reactions Amitriptyline Other (See comments) Caused severe waking nightmares Caused severe waking nightmares Caused severe waking nightmares Sulfa (Sulfonamide Antibiotics) Other (See comments) and Hives Non life threatening hepatitis Non life threatening hepatitis Non life threatening hepatitis Tizanidine Hallucinations Prochlorperazine Unknown Sulfanilamide Baclofen Stomach upset and Nausea only Nitrofurantoin Nausea only, Vomiting, Diarrhea and Nausea And Vomiting Reaction: NAUSEA, VOMITING, , , , , Nitrofurantoin Monohyd/M-Cryst Diarrhea, Nausea only and Vomiting Propoxyphene Vomiting VOMITING Sumatriptan Diarrhea, Nausea only and Vomiting Trazodone Nausea And Vomiting, Nausea only and Vomiting Reaction: NAUSEA, VOMITING, suicidal thoughts Current Facility-Administered Medications Medication Dose Route Frequency Provider Last Rate Last Admin acetaminophen (TYLENOL) tablet 650 mg 650 mg oral Q6H Ottoniel Phoenix MD cyclobenzaprine (FLEXERIL) tablet 10 mg 10 mg oral TID PRN Ottoniel Phoenix MD dextrose gel in packet 15 g 15 g oral Q15 Min PRN Dwight Quintero CRNA Or dextrose (D10W) 10% bolus 250 mL 250 mL intravenous Q15 Min PRN Dwight Quintero CRNA DOPamine in dextrose 5% 400 mg/250 mL (1,600 mcg/mL) infusion (premix) 0-20 mcg/kg/min intravenous Titrated Dwight Quintero CRNA Stopped at 11/18/24 0942 fentaNYL (SUBLIMAZE) preservative free injection 50 mcg 50 mcg intravenous Once PRN Elba Medina MD PhD glucagon injection 1 mg 1 mg intramuscular Q30 Min PRN Dwight Quintero CRNA haloperidol (HALDOL) injection 0.5 mg 0.5 mg intravenous Once PRN Elba Medina MD PhD HYDROmorphone (DILAUDID) injection 0.2 mg 0.2 mg intravenous Q10 Min PRN Elba Medina MD PhD insulin regular bolus from bag 4-10 Units 4-10 Units intravenous PRN Dwight Quintero CRNA And insulin regular in 0.9% sodium chloride (MYXREDLIN) 100 unit/100 mL (1 unit/mL) infusion (premix) 0-30 Units/hr intravenous Titrated Dwight Quintero CRNA 2 mL/hr at 11/18/24 0905 2 Units/hr at 11/18/24 0905 And insulin regular bolus from bag 4-6 Units 4-6 Units intravenous Q1H PRN Dwight Quintero CRNA4 Units at 11/18/24 0905 meperidine (DEMEROL) preservative free injection 12.5 mg 12.5 mg intravenous Q10 Min PRN Elba Medina MD PhD naloxone (NARCAN) 0.4 mg/mL injection 0.04-0.4 mg 0.04-0.4 mg intravenous Once PRN Elba Medina MDPhD norepinephrine in dextrose 5% (LEVOPHED) 8,000 mcg/250 mL (32 mcg/mL) infusion (premix) 0-2 mcg/kg/min intravenous Titrated Dwight Quintero CRNA Stopped at 11/18/24 0948 ondansetron (ZOFRAN) injection 4 mg 4 mg intravenous Once PRN Elba Medina MD PhD oxyCODONE (ROXICODONE) tablet 10 mg 10 mg oral Q6H PRN Ottoniel Phoenix MD sodium chloride 0.9% 0.9% infusion - ADS Override Pull sodium chloride 0.9% infusion 30 mL/hr intravenous Continuous Elba Medina MD PhD 30 mL/hr at 11/18/24 0739 Rate Verify at 11/18/24 0739 sodium chloride 0.9% IVPB 0-250 mL 0-250 mL intravenous Once Ottoniel Phoenix MD Objective Vitals: 24hr Min/Max: Temp Min: 36.1 ??C (97 ??F) Max: 36.1 ??C (97 ??F) Pulse Min: 78 Max: 96 BP Min: 106/74 Max: 120/82 Resp Min: 14 Max: 24 SpO2 Min: 100 % Max: 100 % Most Recent : Vitals: 11/18/24 0730 BP: 120/82 Pulse: 89 Resp: 21 Temp: SpO2: 100% No intake/output data recorded. I/O this shift: In: 800 [I.V.:800] Out: 310 [Urine:300; Blood:10] Physical Exam: GENERAL: Awake, alert, oriented x 4; no acute distress. HEENT: Eyes: Pupils equal, round, reactive to light and accommodation. NECK: Supple and symmetric. RESPIRATORY: Good respiratory effort. Chest: Symmetrical rise and fall. Symmetrical expansion with respirations. CARDIOVASCULAR: IRRegular rate and rhythm. GASTROINTESTINAL: No tenderness or mass. Abdomen is nondistended. MUSCULOSKELETAL: Normal gait and station.No tenderness or effusion. Range of motion adequate. Strength and tone equal bilaterally, stable. PULSES: palpable, equal bilaterally INCISIONS: CDI with dermabond NEUROLOGICAL: Cranial nerves II-XII grossly intact. Sensation intact. Lab/Radiology/Diagnostic Review: Laboratory review: Lab results in the last 12 hours: Recent Results (from the past 12 hours) POCT glucose Collection Time: 11/18/24 6:37 AM Result Value Ref Range Glucose, POC 183 70 - 199 mg/dL POCT glucose Collection Time: 11/18/24 8:48 AM Result Value Ref Range Glucose, POC 239 (H) 70 - 199 mg/dL POC Blood Gas and Chemistries, Arterial - Collection Time: 11/18/24 9:39 AM Result Value Ref Range pH, Art POC 7.51 (H) 7.35 - 7.45 pCO2, Art POC 36 35 - 45 mmHg pO2, Art POC 122 (H) 83 - 108 mmHg Na, POC 140 135 - 145 mmol/L K POC 4.3 3.3 - 4.9 mmol/L Cl, POC 108 97 - 110 mmol/L Ionized Ca, POC 4.82 4.50 - 5.10 mg/dL Glucose, POC 197 70 - 199 mg/dL Lactate, POC 2.1 (H) 0.7 - 2.0 mmol/L SO2 (jesus alberto) arterial 99 (H) 90 - 95 % Base excess, POC 5.3 mmol/L HCO3, Art POC 29 20 - 30 mmol/L Hct, POC 23.0 (L) 36.3 - 45.3 % Total Hb, POC 7.6 (L) 11.9 - 15.5 g/dL POCT glucose Collection Time: 11/18/24 10:13 AM Result Value Ref Range Glucose, POC 207 (H) 70 - 199 mg/dL Assessment/Plan Active Problems: Type 2 diabetes mellitus with hyperlipidemia (HCC) Chronic combined systolic and diastolic congestive heart failure (CMS/HCC) (HCC) Essential hypertension Atrial fibrillation (CMS/HCC) (HCC) Chronic respiratory failure with hypoxia (CMS/HCC) ([facility]) Atrial thrombus Atrial thrombus Assessment & Plan On warfarin at home, has been held pre operatively - Anticipate therapeutic heparin gtt to start tomorrow Chronic respiratory failure with hypoxia (CMS/HCC) ([facility]) Assessment & Plan On 3L O2 via NC at all times - Continue supplemental O2 - SpO2 checks with VS Atrial fibrillation (CMS/HCC) ([facility]) Assessment & Plan - Continue home amiodarone, metoprolol Essential hypertension Assessment & Plan - Continue home medications as tolerated Chronic combined systolic and diastolic congestive heart failure (CMS/HCC) ([facility]) Assessment & Plan EF 15-20%. Has ICD - OR 2/ for R carotid barostim placement - OU status/ q 2 hr NV checks and VS - CLD then ADAT - normotensive BP goals - Slowly re-introduce home medications as tolerated Type 2 diabetes mellitus with hyperlipidemia (HCC) Assessment & Plan On Metformin, Forteo, and Lantus at home - Hold metformin while inpatient - Basal/ bolus while inpatient - Carb consistent diet when eating Jaspreet Smith MD For patients or family members viewing this note through [employer] programs: This note was written as a communication tool between healthcare providers and may contain technical language, terminology and abbreviations that is difficult to interpret without advanced medical training. If you have questions or concerns regarding what is written in this note, please request to speak with the primary medical team taking care of you or your family member or call your Primary care provider (PCP) for clarification. Please do not call the cell or pager numbers listed in this note, as the provider they are associated with may no longer be involved in your care. GER WEB APPLICATION documented in this encounter H&P Notes * Ottoniel Phoenix MD - 11/18/2024 7:00 AM CST I have reviewed the H&P, examined the patient, and endorse the findings as written. Plan of Care : Based on the above findings, I consider Blossom De León to be an acceptable risk for : Procedure(s): RIGHT BAROSTIM PLACEMENT Cosigned by Hesham Madsen MD at 11/18/2024 7:19 AM MANAGER WEB APPLICATION GER WEB APPLICATION GER WEB APPLICATION Source Note - Hesham Madsen MD - 10/25/2024 3:00 PM MANAGER WEB APPLICATION Patient: Blossom De León Date of : 1965 Date of Service: 10/25/2024 New Patient Consultation Consultation at the request of Rajan Begum* for an opinion regarding Barostim PlacementI have personally taken a history, examined the patient and determined the assessment and plan as outlined below. CHIEF COMPLAINT: Heart failure HISTORY OF PRESENT ILLNESS: Patient is a 58 y.o. female and has a history of myopathy, T2DM, CHF, dilated cardiomyopathy, HTN, hypothyroidism, GERD, RLS, migraine, HLD, anemia, vitamin d deficiency, osteoporosis, anxiety, MDD, A-fib, chronic respiratory failure, and atrial thrombus. She has COPD on 3 L oxygen at all. Her EF is 15-20%. She has atrial fibrillation on warfarin. Carotid duplex shows less than 50% stenosis bilaterally. She has left chest wall defibrillator. She presents today to discuss barostim placement Past Medical History: Diagnosis Date Anemia Anxiety Arthritis CHF (congestive heart failure) (CMS/HCC) (HCC) Chronic constipation Chronic diarrhea Coronary artery disease Depression Depression Diabetes (HCC) Gastric reflux GERD (gastroesophageal reflux disease) HX OTHER MEDICAL hepatitis due to sulfa Hyperlipidemia Hypertension Hypertension Hypothyroidism Irritable bowel syndrome Leg pain, bilateral Liver cancer (HCC) Malignant neoplasm of thyroid gland (HCC) 1986 Cancer, thyroid Migraine Motion sickness BI (obstructive sleep apnea) uses CPAP at home Restless leg syndrome Systolic heart failure (CMS/HCC) (HCC) Type 2 diabetes mellitus (HCC) Past Surgical History: Procedure Laterality Date BACK SURGERY 2007 Back surgery BREAST BIOPSY benign surgical bx, no scar, unsure which breast, unsure year? CARPAL TUNNEL RELEASE Bilateral CHOLECYSTECTOMY COLONOSCOPY 06/2012 DISCECTOMY discectomy HIP SURGERY Right 06/09/2024 HYSTERECTOMY Hysterectomy HYSTERECTOMY 2007 Hysterectomy KYPHOPLASTY THORACIC N/A 06/09/2023 KYPHOPLASTY THORACIC N/A 08/12/2023 KYPHOPLASTY THORACIC N/A 11/24/2023 OTHER SURGICAL HISTORY Cancer, thyroid: partial thyroidectomy OTHER SURGICAL HISTORY cervical fusion at c56 THYROIDECTOMY 1987 Thyroidectomy US GUIDED BIOPSY LIVER N/A 07/25/2022 Family History Problem Relation Age of Onset Cancer Mother Breast cancer Mother Stroke Mother Hypertension Mother Macular degeneration Mother Heart disease Maternal Grandmother Diabetes Maternal Grandmother Diabetes Paternal Grandmother Cancer Paternal Grandmother Breast cancer Mother's Sister Colon cancer Mother's Sister Cancer Mother's Sister Ovarian cancer Mother's Sister Cancer Mother's Sister Heart disease Father Cancer Father COPD Father Hypertension Father Hyperlipidemia Father Emphysema Father Cancer Other Family history of Cancer -; Depression Other Family history of Depression; Hypertension Other Family history of Hypertension; Thyroid cancer Neg Hx Social History Tobacco Use Smoking status: Former Current packs/day: 0.00 Average packs/day: 1 pack/day for 5.0 years (5.0 ttl pk-yrs) Types: Cigarettes Start date: 1982 Quit date: 1987 Years since quittin.0 Smokeless tobacco: Never Substance and Sexual Activity Drug use: Never Sexual activity: Yes Partners: Male Comment: hysterctomy 10/2007 Alcohol Use: Not At Risk (08/23/2024) AUDIT-C Frequency of Alcohol Consumption: Never Average Number of Drinks: Patient does not drink Frequency of Binge Drinking: Never Allergies as of 10/25/2024 - Reviewed 09/30/2024 Allergen Reaction Noted Amitriptyline Other (See comments) 07/13/2019 Sulfa (sulfonamide antibiotics) Other (See comments) and Hives 07/13/2019 Tizanidine Hallucinations 07/13/2019 Prochlorperazine Unknown 02/21/2020 Sulfanilamide Baclofen Stomach upset and Nausea only 11/28/2020 Nitrofurantoin Nausea only, Vomiting, Diarrhea, and Nausea And Vomiting 07/13/2019 Nitrofurantoin monohyd/m-cryst Diarrhea, Nausea only, and Vomiting 02/21/2020 Propoxyphene Vomiting 01/07/2012 Sumatriptan Diarrhea, Nausea only, and Vomiting Trazodone Nausea And Vomiting, Nausea only, and Vomiting 07/13/2019 Current Outpatient Medications: acetaminophen (TYLENOL) 325 mg tablet, Take 2 tablets (650 mg total) by mouth every 6 (six) hours, Disp: 30 tablet, Rfl: 11 alendronate (FOSAMAX) 70 mg tablet, Take 1 tablet (70 mg total) by mouth every 7 days Take in the morning with a full glass of water, on an empty stomach, and do not take anything else by mouth or lie down for the next 30 min., Disp: 12 tablet, Rfl: 1 amiodarone (PACERONE) 200 mg tablet, Take 1 tablet (200 mg total) by mouth daily, Disp: 90 tablet, Rfl: 1 artifi.tears,hypromellose,,PF, 0.3 % drops, Administer 2 drops into affected eye(s) 3 (three) timesa day as needed (dry eye), Disp: 14 mL, Rfl: 11 aspirin 81 mg enteric coated tablet, Take 1 tablet (81 mg total) by mouth daily, Disp: 30 tablet, Rfl: 11 atorvastatin (LIPITOR) 20 mg tablet, Take 1 tablet (20 mg total) by mouth every evening, Disp: , Rfl: bisacodyL (DULCOLAX) 10 mg suppository, Insert 1 suppository (10 mg total) into the rectum daily asneeded for constipation (If no results 24 hours after milk of magnesia (may give bisacodyl tablet if tolerating PO)), Disp: , Rfl: bisacodyl EC (DULCOLAX EC) 5 mg EC tablet, Take 2 tablets (10 mg total) by mouth daily as needed for constipation (If no results 24 hours after milk of magnesia (may give bisacodyl supp if not tolerating PO)), Disp: 30 tablet, Rfl: 0 blood-glucose sensor (Dexcom G7 Sensor) device, Change every 10 days, Disp: 9 each, Rfl: 3 buprenorphine (BUTRANS) 10 mcg/hour, Place 1 patch on the skin once a week, Disp: 4 patch, Rfl: 2 Calcium 500 + D 500 mg-5 mcg (200 unit) per tablet, TAKE 1 TABLET BY MOUTH DAILY, Disp: 90 tablet, Rfl: 0 calcium carbonate (TUMS) 500 mg (200 mg elemental calcium) chewable tablet, Take 2 tablet/chew tab (1,000 mg total) by mouth 3 (three) times a day as needed for heartburn or indigestion, Disp: , Rfl: cyanocobalamin (Vitamin B-12) 1,000 mcg/mL injection, Inject 1 mL (1,000 mcg total) into the muscleas instructed every 30 (thirty) days, Disp: 1 mL, Rfl: 11 cyclobenzaprine (FLEXERIL) 10 mg tablet, Take 1 tablet (10 mg total) by mouth 3 (three) times a dayas needed for muscle spasms, Disp: 60 tablet, Rfl: 3 dextrose (GLUTOSE) 40 % gel, Take 15 g by mouth every 15 (fifteen) minutes as needed for low blood sugar (blood glucose less than 70 mg/dL), Disp: , Rfl: DULoxetine DR (CYMBALTA) 60 mg capsule, Take 1 capsule (60 mg total) by mouth daily, Disp: 90 capsule, Rfl: 3 empagliflozin (JARDIANCE) 10 mg tablet, Take 1 tablet (10 mg total) by mouth daily, Disp: 30 tablet, Rfl: 0 Entresto 24-26 mg tablet, Take 1 tablet by mouth 2 (two) times a day, Disp: 180 tablet, Rfl: 3 ergocalciferol (VITAMIN D) 50,000 unit capsule, Take 1 capsule (50,000 Units total) by mouth once aweek Fridays, Disp: 13 capsule, Rfl: 3 furosemide (LASIX) 40 mg tablet, TAKE 1 TABLET(40 MG) BY MOUTH DAILY, Disp: 30 tablet, Rfl: 11 hydrocortisone (ANUSOL-HC) 2.5 % rectal cream, Insert into the rectum 4 (four) times a day as needed for hemorrhoids (rectal discomfort) Apply to affected areas, Disp: 30 g, Rfl: 2 insulin glargine (LANTUS, SEMGLEE) 100 unit/mL vial for injection, Inject 25 Units under the skin every morning, Disp: , Rfl: insulin lispro (HumaLOG, ADMELOG) 100 unit/mL vial for injection, Inject 2-10 units under the skin 3 (three) times a day with meals. Blood glucose mg/dL 150- 199: 2 units, 200-249: 4 units, 250-299: 6units, 300-349: 8 units, 350 or greater: 10 units. Notify provider for blood glucose greater than 299 mg/dL. Refer to After Visit Summary for Sliding Scale Insulin Instructions., Disp: , Rfl: insulin lispro (HumaLOG, ADMELOG) 100 unit/mL vial for injection, Inject 2-10 units under the skin 3 (three) times a day with meals. Blood glucose mg/dL 150- 199: 2 units, 200-249: 4 units, 250-299: 6units, 300-349: 8 units, 350 or greater: 10 units. Notify provider for blood glucose greater than 299 mg/dL. Refer to After Visit Summary for Sliding Scale Insulin Instructions., Disp: , Rfl: insulin lispro (HumaLOG, ADMELOG) 100 unit/mL vial for injection, Inject 5 Units under the skin 3 (three) times a day with meals, Disp: , Rfl: levothyroxine (SYNTHROID) 125 mcg tablet, Take 1 tablet (125 mcg total) by mouth daily, Disp: 90 tablet, Rfl: 3 LORazepam (ATIVAN) 0.5 mg tablet, Take 1 Tablet (0.5 mg) one hour prior to MRI and 1 Tablet (0.5 mg) if needed at time of scan, for MRI scan anxiety., Disp: 2 tablet, Rfl: 0 metFORMIN (GLUCOPHAGE) 1,000 mg tablet, Take 1 tablet (1,000 mg total) by mouth daily with breakfast, Disp: 90 tablet, Rfl: 3 metoprolol tartrate (LOPRESSOR) 25 mg immediate release tablet, Take 0.5 tablets (12.5 mg total) bymouth 2 (two) times a day, Disp: 90 tablet, Rfl: 3 midodrine (PROAMATINE) 10 mg tablet, Take 1 tablet (10 mg total) by mouth 3 (three) times a day before meals, Disp: 90 tablet, Rfl: 5 naloxone (NARCAN) 4 mg/actuation spray,non-aerosol, Administer 1 spray into affected nostril(s) as needed for opioid reversal for up to 2 doses Call 911. Administer a single spray in one nostril. Repeat every 3 minutes as needed if no or minimal response., Disp: 2 each, Rfl: 0 ondansetron (ZOFRAN) 4 mg tablet, Take 1 tablet (4 mg total) by mouth every 8 (eight) hours as needed for nausea or vomiting, Disp: 20 tablet, Rfl: 5 OneTouch Delica Plus Lancet 30 gauge misc, USE 1 LANCET TO TEST BLOOD SUGAR THREE TIMES A DAY, Disp: 50 each, Rfl: 3 oxyCODONE (ROXICODONE) 10 mg tablet, Take 1 tablet (10 mg total) by mouth every 6 (six) hours as needed for pain, Disp: 120 tablet, Rfl: [address] (PROTONIX) 40 mg EC tablet, TAKE 1 TABLET(40 MG) BY MOUTH DAILY, Disp: 30 tablet, Rfl: 3 pen needle, diabetic (BD Tereza 2nd Gen Pen Needle) 32 gauge x 5/32 needle, Use 4 times a day, Disp:400 each, Rfl: 3 potassium chloride ER 20 mEq CR tablet, TAKE 1 TABLET(20 MEQ) BY MOUTH DAILY, Disp: 30 tablet, Rfl:11 pregabalin (LYRICA) 75 mg capsule, Take 1 capsule (75 mg total) by mouth 2 (two) times a day, Disp:180 capsule, Rfl: 3 rizatriptan (MAXALT) 10 mg tablet, Take 1 tablet (10 mg total) by mouth once as needed for migraineMay repeat in 2 hours if unresolved. Do not exceed 30 mg in 24 hours., Disp: 9 tablet, Rfl: 11 rOPINIRole (REQUIP) 0.25 mg tablet, Take 1 tablet (0.25 mg total) by mouth nightly, Disp: , Rfl: sodium chloride (OCEAN) 0.65 % nasal spray, Administer 1 spray into each nostril every 2 (two) hours as needed for congestion, Disp: , Rfl: spironolactone (ALDACTONE) 25 mg tablet, Take 1 tablet (25 mg total) by mouth daily, Disp: 30 tablet, Rfl: 11 warfarin (COUMADIN) 2 mg tablet, Take 1 tablet (2 mg total) by mouth daily Patient should take of warfarin 2 mg daily at 5:00 p.m. for 6 days a week and 1.5 mg 1 day, Disp: 30 tablet, Rfl: 5 REVIEW OF SYSTEMS: The patient???s vascular health history form was reviewed and signed by me dated 10/25/2024 The form was scanned into Media. PHYSICAL EXAMINATION: VITAL SIGNS: There were no vitals taken for this visit. HENT: Normocephalic and atraumatic. Extraocular movements are intact. Moist mucus membranes. EYES: Pupils are equal and reactive to light bilaterally. NECK: Supple with no lymphadenopathy CHEST: Symmetric chest expansion with no accessory muscle usage HEART: Regular rate and rhythm. ABDOMEN: Soft, nontender, nondistended. VASCULAR: Palpable radial pulse, palpable DP pulses. AICD on left side chest wall MUSCULOSKELETAL: Warm, well perfused NEURO: Grossly intact motor and sensory exam. SKIN: No visible rashes. No wounds noted. VASCULAR LABS: I personally reviewed the report and images of: Carotid duplex Patient Active Problem List Diagnosis Myopathy Intractable chronic migraine without aura and without status migrainosus Type 2 diabetes mellitus with hyperlipidemia (HCC) Hypokalemia Chronic combined systolic and diastolic congestive heart failure (CMS/HCC) (HCC) Dilated cardiomyopathy (CMS/HCC) ([facility]) Nonocclusive coronary atherosclerosis of [place] coronary artery Essential hypertension Hypothyroidism, unspecified Migraine Chronic pain syndrome Restless leg syndrome GERD (gastroesophageal reflux disease) Healthcare maintenance Gastroesophageal reflux disease Hyperlipidemia, unspecified Tinea corporis History of fusion of cervical spine Dermatofibroma Anemia, unspecified UTI (urinary tract infection) Onychomycosis B12 deficiency Marlin esophagitis (CMS/HCC) ([facility]) Intermittent diarrhea Hematuria Hemorrhoid Lumbar radiculopathy Lumbar stenosis with neurogenic claudication Closed unstable burst fracture of fourth lumbar vertebra, initial encounter ([facility]) Neuroendocrine cancer ([facility]) Osteoporosis Generalized weakness Compression fx, thoracic spine, closed, initial encounter ([facility]) Falls frequently Closed fracture of left inferior pubic ramus ([facility]) Fall, accidental, initial encounter Secondary neuroendocrine tumors ([facility]) Pharyngeal dysphagia Anxiety disorder, unspecified Difficulty in walking, not elsewhere classified Dorsopathy, unspecified Major depressive disorder, recurrent, severe with psychotic symptoms ([facility]) Presence of other specified devices Restless legs syndrome Moderate protein-calorie malnutrition (CMS/HCC) ([facility]) Vision loss Atrial fibrillation (CMS/HCC) ([facility]) Nasal septum perforation Chronic rhinitis Epistaxis Hypoxemia Intractable back pain On supplemental oxygen by nasal cannula Compression fracture of body of thoracic vertebra (CMS/HCC) (HCC) Drug-induced hypotension Chronic respiratory failure with hypoxia (CMS/HCC) ([facility]) Closed wedge compression fracture of T5 vertebra (HCC) Compression fracture of thoracic vertebra, sequela ICD (implantable cardioverter-defibrillator) in place Eye pain, left Blepharitis of both eyes with rosacea Debility Fall, initial encounter Acute on chronic anemia GI bleed Hip fracture requiring operative repair, left, closed, with routine healing, subsequent encounter Stress fracture of femoral neck Weakness generalized Elevated brain natriuretic peptide (BNP) level Atrial thrombus ASSESSMENT/PLAN: Blossom De León is a 58 y.o. female patient with multiple comorbid conditions including COPD on 3 L nasal cannula at all times, congestive heart failure with EF 15-20%, atrial fibrillation on warfarin here to discuss barostim placement for congestive heart failure - Carotid duplex shows less than 50% stenosis bilaterally - She has defibrillator in left chest - Discussed options in detail and she wishes to proceed with placement of barostim in right chest wall with placement of electrodes over right carotid bifurcation. She will hold warfarin for 5 days and be bridged with Lovenox Hesham Madsen MD GER WEB APPLICATION documented in this encounter Consult Notes * Ashley Hooker RN - 11/25/2024 2:11 PM CSTAssociated Order(s): CONSULT TO WOUND CARE Consult received regarding blood blister to left wrist. The blister keeps opening and draining per the pt. The blister was partially unroofed to relieve some of the pressure and was drained. Recommend keeping a dry compression drsg over the blister and change daily and PRN saturation. For further questions, concerns or changes please call the wound/ostomy team. LOIN Walton, RN, CWON GER WEB APPLICATION * Dianna Carranza NP - 11/25/2024 11:08 AM CSTAssociated Order(s): CONSULT TO ENDOCRINOLOGY DIABETES Images from the original note were not included. Endocrinology & Diabetes Consult Note Patient: Blossom De León, 59 y.o. female (: 1965) Room: [place] [address]/[place] [address] ( ) LOS: 6 Consult Question: Inpatient Glycemic Management (Requesting Provider: Hesham Madsen MD) Blossom De León is a 59 y.o. 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 The Endocrinology/Diabetes Service was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 air Wound Status Healing -- -- Healing -- Closure Approximated;Wound glue Approximated;Wound glue -- Approximated;Wound glue Approximated;Wound glue Wound 11/18/24 Skin Tear Thigh Right;Medial Date First Assessed 11/18/24 Site Thigh Time First Assessed 2000 Days 11 Present on Original Admission: Y 2 RN Skin Validation (comment name): Paras BUI Primary Wound Type: Skin tear Location Orientation: Right;Medial Assessments Assessments Row Name 11/30/24 0930 11/29/24200811/29/240 11/29/2481411/28/242013 Dressing Status Open to Air -- Open to Air Open to Air -- Site Assessment [place] -- Shape & Pattern Irregular -- Irregular Irregular -- Sallie-wound Assessment Dry;Intact -- -- Dry;Intact -- Dressing Open to air -- Open to air Open to air -- Wound Status Healing -- -- Healing -- Wound 11/18/24 Skin Tear Forearm Anterior;Left;Proximal Date First Assessed 11/18/24 Site Forearm Time First Assessed 2226 Days 11 Present on Original Admission: Y 2 RN Skin Validation (comment name): Paras BUI Primary Wound Type: Skin tear Location Orientation: Anterior;Left;Proximal Assessments Assessments Row Name 11/30/2430 11/29/24200811/29/24121911/29/2481411/28/242013 Dressing Status Clean/Dry/Intact -- Changed;Clean/Dry/Intact Clean/Dry/Intact -- Site Assessment ADRYAN -- Fragile;Red blister opened ADRYAN -- Shape & Pattern -- -- Circular -- -- Sallie-wound Assessment ADRYAN -- Intact;Fragile ADRYAN -- Interventions -- -- Cleansed -- -- Dressing Gauze;Surgical tape -- Gauze Gauze;Surgical tape -- Immunizations Name Date Flucelvax Influenza Quad MDI 08/27/13 INFLUENZA, TRIVALENT 09/27/21 INFLUENZA, TRIVALENT 08/11/12 Influenza defer-09/16/24 Deferral: Patient Refused Influenza defer-11/07/23 Deferral: Patient Refused Influenza defer-10/11/22 Deferral: Patient Refused Influenza 10/01/22 Influenza defer-05/23/21 Deferral: Patient Refused Influenza, Quadrivalent, Cell Culture-based MDCK, Preservative Free, Antibiotic Free, Rtoddidxktafu99/28/20 Influenza, Quadrivalent, Split, Preservative Free, Intramuscular 10/08/22 Influenza, Quadrivalent, Split, Preservative Free, Intramuscular 08/02/19 Influenza, Quadrivalent, Split, Preservative Free, Intramuscular 06/20/18 Influenza, Quadrivalent, Split, Preservative Free, Intramuscular 06/19/18 Influenza, Quadrivalent, Split, Preservative Free, Intramuscular 07/06/17 Influenza, Quadrivalent, Split, Preservative Free, Intramuscular 07/20/15 Pfizer SARS-CoV-2 Monovalent Vaccination (12+ Yrs) PURPLE 09/27/21 Pfizer SARS-CoV-2 Monovalent Vaccination (12+ Yrs) PURPLE 01/15/21 Pfizer SARS-CoV-2 Monovalent Vaccination (12+ Yrs) PURPLE 12/18/20 Pneumococcal Conjugate Pcv20 defer-05/31/24 Deferral: Patient Refused Pneumococcal PPV 07/10/20 Sars-CoV-2, Unspecified 09/27/21 Sars-CoV-2, Unspecified 09/27/21 Sars-CoV-2, Unspecified 01/15/21 Sars-CoV-2, Unspecified 01/15/21 Sars-CoV-2, Unspecified 12/18/20 Sars-CoV-2, Unspecified 12/18/20 Tdap 09/02/18 ZOSTER Recombinant 03/23/19 ZOSTER Recombinant 01/20/19 Therapy Plan Dialysis Prescription No active therapy plan found. Future Appointments Encounter Information Provider Department [place] 12/06/2024 8:30 AM [facility] [place] [facility] 12/06/2024 9:00 AM Candido Lobato MD [facility] [place] [facility] 12/06/2024 11:15 AM (Arrive by 11:05 AM) Juni Hays MD [facility] Medical Group Primary [facility] at [facility] 12/09/2024 10:00 AM Rajan Begum MD [place] [facility] 12/20/2024 11:15 AM Hesham Madsen MD [facility] Surgery [place] 01/19/2025 1:30 PM REMOTE DEV CHECK, [facility] PSA 03/11/2025 10:40 AM Coy Patel MD [facility] Endocrinology Metabolism and Lipid [place] [facility] 04/14/2025 10:45 AM Rajan Begum MD [place] [facility] at [facility] 04/20/2025 1:00 PM REMOTE DEV CHECK, [facility] PSA 07/20/2025 1:00 PM REMOTE DEV CHECK, [facility] PSA Generated by [id number] at 11/30/24 2:08 PM GER WEB APPLICATION * [facility] Note - Nathaly Giron RN - 11/30/2024 2:08 PM CST Images from the original note were not included. Medication Administration Report for Blossom De León as of 11/27/24 through 11/30/24 Legend: Medications 11/27/24 11/28/24 11/29/24 11/30/24 acetaminophen (TYLENOL) tablet 650 mg Dose: 650 mg Freq: Every 6 hours Route: oral Start: 11/18/24 1045 0454 1236 1747 2329 0536 1159 1710 0005 0516 1221 1756 2356 0503 1232 1800 amiodarone (PACERONE) tablet 200 mg Dose: 200 mg Freq: Daily Route: oral Start: 11/19/24 0900 0849 0843 0815 0838 aspirin enteric coated tablet 81 mg Dose: 81 mg Freq: Daily Route: oral Start: 11/18/24 1745 Admin Instructions: Do not crush, chew, cut, dissolve, open or otherwise manipulate tablet/capsule. 0849 0843 0814 0838 atorvastatin (LIPITOR) tablet 20 mg Dose: 20 mg Freq: Daily Route: oral Start: 11/18/24 1745 0849 0842 0815 0839 bisacodyl EC (DULCOLAX EC) tablet 10 mg Dose: 10 mg Freq: Daily PRN Route: oral PRN Reason: constipation PRN Comment: If no results 24 hours after milk of magnesia (may give bisacodyl supp if not tolerating PO) Start: 11/18/241703 Admin Instructions: Do not crush, chew, cut, dissolve, open or otherwise manipulate tablet/capsule. buprenorphine (BUTRANS) 10 mcg/hour patch weekly 1 patch Dose: 1 patch Freq: Weekly Route: transderm Start: 11/20/24 0900 (1150) [C] (1155) [C] 0846 0830 0830 calcium carbonate (TUMS) chewable tablet 500 mg Dose: 200 mg of elemental calcium Freq: 3 times daily PRN Route: oral PRN Reasons: indigestion,heartburn Start: 11/29/24 0638 0722 Carrier Fluids for Secondary Infusion - 0.9% Sodium Chloride Dose: 30 mL Freq: As needed Route: IV PRN Reason: For priming tubing and/or flushing Start: 11/18/241702 Admin Instructions: 0-250 ml/hr to flush line after IV infusions when no maintenance IV ordered. Infuse 30mL at the same rate as the secondary infusion. Run as primary IV, not intended for KVO. cyclobenzaprine (FLEXERIL) tablet 10 mg Dose: 10 mg Freq: 3 times daily PRN Route: oral PRN Reason: muscle spasms Start: 11/18/24 1006 1236 0843 2014 0551 1805 2026 0301 dextrose gel in packet 15 g Dose: 15 g Freq: Every 15 min PRN Route: oral PRN Reason: low blood sugar PRN Comment: blood glucose less than 70 mg/dL Indications of Use: hypoglycemic disorder Start: 11/22/242031 Admin Instructions: If patient is alert and able to eat/drink, give 15 gm glucose or one juice (4 fluid ounces) NOT ORANGE JUICE. After treatment for hypoglycemia, recheck BG followed by treatment every 15 minutes untilthe BG is greater than 100 mg/dL. Then check BG 1 hour post-treatment. If BG is less than 100 mg/dL, repeat Q15 minute BG checks and treatment. Call MD for each episode of hypoglycemia. Or dextrose (D10W) 10% bolus 250 mL Dose: 250 mL Freq: Every 15 min PRN Route: IV PRN Comment: blood glucose less than 70 mg/dL and UNABLE to swallow/take PO glucose/juice. Indications of Use: hypoglycemic disorder Start: 11/22/242031 Admin Instructions: After treatment for hypoglycemia, recheck BG followed by treatment every 15 minutes until the BG isgreater than 100 mg/dL. Then check BG 1 hour post treatment. If BG is less than 100 mg/dL, repeat Q15 minute BG checks and treatment. Call MD for each episode of hypoglycemia. DULoxetine DR (CYMBALTA) extended release capsule 60 mg Dose: 60 mg Freq: Daily Route: oral Start: 11/18/24 1745 Admin Instructions: Capsule may be opened and contents mixed with applesauce or apple juice ONLY. Do not crush or chew capsule 0849 0842 0815 0838 furosemide (LASIX) tablet 20 mg Dose: 20 mg Freq: Daily Route: oral Start: 11/24/24 1600 1637 1710 1606 1600 furosemide (LASIX) tablet 40 mg Dose: 40 mg Freq: Daily Route: oral Start: 11/25/24 0900 0849 0843 0814 0934 glucagon injection 1 mg Dose: 1 mg Freq: Every 30 min PRN Route: IM PRN Reason: low blood sugar PRN Comment: blood glucose less than 70 mg/dL AND no IV access AND unable to take PO glucose/juice. Start: 11/22/242031 Admin Instructions: After Glucagon is administered, position patient on side if possible to avoid aspiration. Obtain IVaccess. Follow glucagon treatment with glucose treatment or IV dextrose. After treatment for hypoglycemia, recheck BG followed by treatment every 15 minutes until the BG isgreater than 100 mg/dL. Then check BG 1 hour post treatment. If BG is less than 100 mg/dL, repeat Q15 minute BG checks and treatment. Call MD for each episode of hypoglycemia. Reconstitute 1 mg vial with 1 mL SWFI. Use immediately following reconstitution. hydrocortisone (ANUSOL-HC) 2.5 % rectal cream Freq: 2 times daily PRN Route: rect PRN Reason: hemorrhoids Start: 11/19/24 0715 insulin glargine (LANTUS, SEMGLEE) 100 unit/mL injection 27 Units Dose: 27 Units Freq: Every morning Route: subQ Indications of Use: diabetes mellitus Start: 11/28/24 0900 Admin Instructions: Do not mix with other insulins 0843 0818 0837 insulin lispro (HumaLOG, ADMELOG) 100 unit/mL injection 0-10 Units Dose: 0-10 Units Freq: 3 times daily with meals Route: subQ Indications of Use: diabetes mellitus Start: 11/23/24 0800 Admin Instructions: Blood glucose mg/dL: 149 or less: No insulin 150-199: add 2 unit 200-249: add 4 units 250-299: add 6 units 300-349: add 8 units and notify physician for adjustment of insulin orders. 350-399: add 10 units and notify physician for adjustment of insulin orders. Over 400: Notify physician for adjustment of insulin orders. Do NOT hold for NPO Status 0848 1237 (1747) 0844 1200 (1705) (0821) 1222 (1750) 0836 (1248) 1800 insulin lispro (HumaLOG, ADMELOG) 100 unit/mL injection 0-5 Units Dose: 0-5 Units Freq: Nightly Route: subQ Indications of Use: diabetes mellitus Start: 11/22/24 2115 Admin Instructions: Blood glucose mg/dL: 149 or less: No insulin 150-199: add 1 unit 200-249: add 2 units 250-299: add 3 units 300-349: add 4 units and notify physician for adjustment of insulin orders. 350-399: add 5 units and notify physician for adjustment of insulin orders. Over 400: Notify physician for adjustment of insulin orders. Do NOT hold for NPO Status 2057 (2025) [C] 2158 2100 insulin lispro (HumaLOG, ADMELOG) 100 unit/mL injection 20 Units Dose: 20 Units Freq: 3 times daily with meals Route: subQ Indications of Use: diabetes mellitus Start: 11/27/24 1800 Admin Instructions: If BG greater than or equal to 100 mg/dL, give dose with meals when tray arrives in the room. If BGless than 100 mg/dL or history of poor intake, give after meals. If patient eating less than 50% ofmeal, call MD for holding or reducing meal insulin dose. Hold prandial insulin if NPO, unable to eat, or if BG less than 70 mg/dL. 1746 0844 1200 (194) [C] 0818 1222 1756 0836 1232 1800 insulin lispro (HumaLOG, ADMELOG) 100 unit/mL injection 9 Units Dose: 9 Units Freq: Every 4 hours PRN Route: subQ PRN Reason: other PRN Comment: Snacks greater than 20 grams of carbohydrate Indications of Use: diabetes mellitus Start: 11/30/24 0951 Admin Instructions: Give as needed for snacks greater than 20 grams of carbohydrates. Hold prandial insulin if NPO, unable to eat, or if BG less than 70 mg/dL. levothyroxine (SYNTHROID) tablet 125 mcg Dose: 125 mcg Freq: Daily Route: oral Start: 11/19/24 0600 Admin Instructions: Administer on an empty stomach, preferably 30 minutes before breakfast. Take 4 hours apart from antacids, iron and calcium products. Separate from tube feeds, if applicable. 0454 0536 0516 0503 metoprolol tartrate immediate release capsule 12.5 mg Dose: 12.5 mg Freq: 2 times daily Route: oral Start: 11/18/242099 0848 202 0843 2013 813 2027 0838 [C] 2100 midodrine (PROAMATINE) tablet 10 mg Dose: 10 mg Freq: 3 times daily before meals Route: oral Start: 11/18/24 1745 0858 1236 1637 0843 1159 1710 0815 1221 1756 0838 1232 1730 mirtazapine (REMERON RAOUL-TAB) disintegrating tablet 15 mg Dose: 15 mg Freq: Nightly Route: oral Start: 11/22/24 2100 Admin Instructions: If administering by mouth, place tablet on tongue and allow to dissolve. 2027 2013 2026 2099 ondansetron (ZOFRAN) tablet 4 mg Dose: 4 mg Freq: Every 8 hours PRN Route: oral PRN Reasons: nausea,vomiting Start: 11/18/24 1704 oxyCODONE (ROXICODONE) tablet 10 mg Dose: 10 mg Freq: Every 6 hours PRN Route: oral PRN Reason: 1st line for pain Start: 11/18/24 1006 0454 1114 1747 2329 0536 1159 2013 206 0817 1230 [C] [address] (PROTONIX) extended release tablet 40 mg Dose: 40 mg Freq: Daily Route: oral Indications of Use: Treatment of Non-Bleeding Gastric Disorder Start: 11/19/24 0900 Admin Instructions: Do not crush, chew, cut, dissolve, open or otherwise manipulate tablet/capsule. 0849 0842 0815 0839 polyethylene glycol (MIRALAX) packet 17 g Dose: 17 g Freq: Daily Route: oral Indications of Use: constipation Start: 11/24/24 1400 0848 (0846) (0819) (0930) polyvinyl alcohol-povidone (REFRESH CLASSIC) 1.4-0.6 % ophthalmic solution 2 drop Dose: 2 drop Freq: 4 times daily PRN Route: each eye PRN Reason: dry eyes Start: 11/24/24 0952 pregabalin (LYRICA) capsule 75 mg Dose: 75 mg Freq: 2 times daily Route: oral Start: 11/18/242100 0549 2028 842 2013 813 2026 837 2099 rizatriptan [employer]ER (MAXALT-GLASS LOADING EQUIPMENT TENDER) disintegrating tablet 10 mg Dose: 10 mg Freq: Every 2 hours PRN Route: SL PRN Reason: migraine PRN Comment: repeat 2h if unresolved, do not exceed 30mg in 24h Indications of Use: migraine Start: 11/20/24 0921 Admin Instructions: May repeat dose once in 2 hours if unresolved. Do not exceed 30 mg in 24 hours. If administering by mouth, place tablet on tongue and allow to dissolve. 0414 rOPINIRole (REQUIP) tablet 0.25 mg Dose: 0.25 mg Freq: Nightly Route: oral Start: 11/18/242099 sacubitriL-valsartan (ENTRESTO) 24-26 mg tablet 0.5 tablet Dose: 0.5 tablet Freq: 2 times daily Route: oral Start: 11/19/24 0900 0849 2029 0543 2013 813 2026 838 2099 senna-docusate (PERICOLACE) 8.6-50 mg per tablet 1 tablet Dose: 1 tablet Freq: 2 times daily Route: oral Start: 11/24/24 1400 0849 (2028) [C] (0846) (2024) (0819) 2027 838 2099 sodium chloride 0.9% flush 0.5-20 mL Dose: 0.5-20 mL Freq: As needed Route: cath PRN Reason: line care Start: 11/18/24 1703 Admin Instructions: Flush volume based on line type and size. Flush before and after each use. sodium chloride 0.9% flush 0.5-20 mL Dose: 0.5-20 mL Freq: Every 8 hours scheduled (alternate) Route: cath Start: 11/18/24 1745 Admin Instructions: Flush volume based on line type and size. (1155) 1607 (6464) 0845 (1628) 0005 0820 (1621) 2356 (0936) 1600 spironolactone (ALDACTONE) tablet 25 mg Dose: 25 mg Freq: Daily Route: oral Start: 11/19/24 0900 0849 0843 0815 0839 Future Medications warfarin (COUMADIN) tablet 3 mg Dose: 3 mg Freq: Daily (for warfarin) Route: oral Indications Comment: LV thrombus Start: 11/30/24 1800 Order specific questions: 1800 Completed Medications insulin lispro (HumaLOG, ADMELOG) 100 unit/mL injection 10 Units Dose: 10 Units Freq: Once Route: subQ Indications of Use: hyperglycemia Start: 11/23/24 1915 End: 11/23/24 190 insulin lispro (HumaLOG, ADMELOG) 100 unit/mL injection 7 Units Dose: 7 Units Freq: Once Route: subQ Indications of Use: hyperglycemia Start: 11/28/242044 End: 11/28/242013 insulin regular (HumuLIN R, NovoLIN R) 100 unit/mL injection 3 Units Dose: 0.05 Units/kg Weight Dosing Info: 62.1 kg Freq: Once Route: IV Indications of Use: hyperglycemia Start: 11/25/24 2100 End: 11/25/242056 insulin regular (HumuLIN R, NovoLIN R) 100 unit/mL injection 5 Units Dose: 5 Units Freq: Once Route: IV Indications of Use: hyperglycemia Start: 11/26/24 0900 End: 11/26/24 0854 insulin regular (HumuLIN R, NovoLIN R) 100 unit/mL injection 5 Units Dose: 5 Units Freq: Once Route: IV Indications of Use: hyperglycemia Start: 11/24/24 1315 End: 11/24/24 1258 oxyCODONE (ROXICODONE) tablet 5 mg Dose: 5 mg Freq: Once Route: oral Indications of Use: pain Start: 11/30/24 0545 End: 11/30/24 0520 0520 potassium chloride 40 mEq/520 mL in sodium chloride 0.9% (premix) 40 mEq Dose: 40 mEq Freq: Once Route: IV Indications of Use: hypokalemia Start: 11/26/24 0245 End: 11/26/24 0509 potassium chloride ER (KLOR-CON) extended release tablet 30 mEq Dose: 30 mEq Freq: Every 4 hours Route: oral Start: 11/29/24 1115 End: 11/29/24 1605 Admin Instructions: Total dose = 60 mEq Tablets should not be crushed, chewed, dissolved, or otherwise manipulated. Capsules may be opened and sprinkled on a spoonful of applesauce or pudding, but the contents of the capsule should not be crushed or chewed. 1221 1605 potassium chloride ER (KLOR-CON) extended release tablet 30 mEq Dose: 30 mEq Freq: Every 4 hours Route: oral Start: 11/26/24 1100 End: 11/26/24 1639 Admin Instructions: Total dose = 60 mEq Tablets should not be crushed, chewed, dissolved, or otherwise manipulated. Capsules may be opened and sprinkled on a spoonful of applesauce or pudding, but the contents of the capsule should not be crushed or chewed. potassium chloride ER (KLOR-CON) extended release tablet 40 mEq Dose: 40 mEq Freq: Once Route: oral Start: 11/26/24 0545 End: 11/26/24 05 Admin Instructions: Tablets should not be crushed, chewed, dissolved, or otherwise manipulated. Capsules may be opened and sprinkled on a spoonful of applesauce or pudding, but the contents of the capsule should not be crushed or chewed. Discontinued Medications enoxaparin (LOVENOX) syringe 60 mg Dose: 1 mg/kg Weight Dosing Info: 62.1 kg Freq: Every 12 hours scheduled Route: subQ Indications of Use: venous thrombosis Start: 11/22/24 0930 End: 11/25/24 0637 furosemide (LASIX) tablet 40 mg Dose: 40 mg Freq: 2 times daily (for diuretics) Route: oral Start: 11/23/24 0900 End: 11/24/24 0926 insulin glargine (LANTUS, SEMGLEE) 100 unit/mL injection 22 Units Dose: 22 Units Freq: Every morning Route: subQ Indications of Use: diabetes mellitus Start: 11/22/24 0900 End: 11/23/24 0640 Admin Instructions: Do not mix with other insulins insulin glargine (LANTUS, SEMGLEE) 100 unit/mL injection 25 Units Dose: 25 Units Freq: Every morning Route: subQ Indications of Use: diabetes mellitus Start: 11/23/24 0900 End: 11/24/24 1238 Admin Instructions: Do not mix with other insulins insulin glargine (LANTUS, SEMGLEE) 100 unit/mL injection 28 Units Dose: 28 Units Freq: Every morning Route: subQ Indications of Use: diabetes mellitus Start: 11/28/24 09 End: 11/27/24 1412 Admin Instructions: Do not mix with other insulins insulin glargine (LANTUS, SEMGLEE) 100 unit/mL injection 30 Units Dose: 30 Units Freq: Every morning Route: subQ Indications of Use: diabetes mellitus Start: 11/25/24 09 End: 11/27/24 1412 Admin Instructions: Do not mix with other insulins 0848 insulin lispro (HumaLOG, ADMELOG) 100 unit/mL injection 10 Units Dose: 10 Units Freq: 3 times daily with meals Route: subQ Indications of Use: hyperglycemia Start: 11/24/24 1330 End: 11/25/24 1138 insulin lispro (HumaLOG, ADMELOG) 100 unit/mL injection 10 Units Dose: 10 Units Freq: 3 times daily with meals Route: subQ Indications of Use: hyperglycemia Start: 11/24/24 1800 End: 11/24/24 1246 insulin lispro (HumaLOG, ADMELOG) 100 unit/mL injection 15 Units Dose: 15 Units Freq: 3 times daily with meals Route: subQ Indications of Use: hyperglycemia Start: 11/25/24 1215 End: 11/26/24 0945 insulin lispro (HumaLOG, ADMELOG) 100 unit/mL injection 18 Units Dose: 18 Units Freq: 3 times daily with meals Route: subQ Indications of Use: diabetes mellitus Start: 11/26/24 1800 End: 11/27/24 1255 Admin Instructions: If BG greater than or equal to 100 mg/dL, give dose with meals when tray arrives in the room. If BGless than 100 mg/dL or history of poor intake, give after meals. If patient eating less than 50% ofmeal, call MD for holding or reducing meal insulin dose. Hold prandial insulin if NPO, unable to eat, or if BG less than 70 mg/dL. 0848 1236 insulin lispro (HumaLOG, ADMELOG) 100 unit/mL injection 18 Units Dose: 18 Units Freq: 3 times daily with meals Route: subQ Indications of Use: hyperglycemia Start: 11/26/24 1200 End: 11/26/24 1434 insulin lispro (HumaLOG, ADMELOG) 100 unit/mL injection 5 Units Dose: 5 Units Freq: Every 4 hours PRN Route: subQ PRN Reason: other PRN Comment: Snacks greater than 20 grams of carbohydrate Indications of Use: diabetes mellitus Start: 11/26/24 1432 End: 11/28/24 0858 Admin Instructions: Give as needed for snacks greater than 20 grams of carbohydrates. Hold prandial insulin if NPO, unable to eat, or if BG less than 70 mg/dL. 0415 2259 insulin lispro (HumaLOG, ADMELOG) 100 unit/mL injection 5 Units Dose: 5 Units Freq: 3 times daily with meals Route: subQ Indications of Use: hyperglycemia Start: 11/23/24 0800 End: 11/23/24 1245 insulin lispro (HumaLOG, ADMELOG) 100 unit/mL injection 7 Units Dose: 7 Units Freq: Every 4 hours PRN Route: subQ PRN Reason: other PRN Comment: Snacks greater than 20 grams of carbohydrate Indications of Use: diabetes mellitus Start: 11/28/24 0857 End: 11/30/24 0951 Admin Instructions: Give as needed for snacks greater than 20 grams of carbohydrates. Hold prandial insulin if NPO, unable to eat, or if BG less than 70 mg/dL. 0005 1939 2356 0622 insulin lispro (HumaLOG, ADMELOG) 100 unit/mL injection 7 Units Dose: 7 Units Freq: 3 times daily with meals Route: subQ Indications of Use: hyperglycemia Start: 11/23/24 1330 End: 11/24/24 1238 warfarin (COUMADIN) tablet 2 mg Dose: 2 mg Freq: Daily (for warfarin) Route: oral Indications Comment: LV thrombus Start: 11/23/24 1800 End: 11/30/24 0536 Order specific questions: [id number] GER WEB APPLICATION * Consults, Subsequent - Dianna Carranza NP - 11/30/2024 1:57 PM MANAGER WEB APPLICATION Endocrinology & Diabetes Inpatient Subsequent Consult Note Patient: Blossom De León, 59 y.o. female (: 1965) Room: [place] [id number] ( ) LOS: 11 Blossom De León is a 59 y.o. female with 59 y.o. 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 The Endocrinology/Diabetes Service is providing inpatient blood glucose management and discharge planning recommendations during this hospitalization. Interval Events & Subjective There were no acute events overnight. Patient is awake and sitting on the side of the bed this afternoon. She reports feeling a bit dizzy and fatigued today. Her BG has improved due, in-part to diligence of overnight nurse giving snack insulin with her multiple snacks. She woke up better this AM. Ialso encouraged the patient to continue to work with her nursing staff with notifying them of snacking so we can handle appropriately. Diet: Adult Discharge Diet Adult Diet Restricted; Consistent Carbohydrate; No juice on tray Blood glucose over previous 24 hours range 128-227 mg/dl Fasting blood glucose this morning was 220 mg/dl Pre-lunch blood glucose was 121 mg/dl Total daily dose of insulin was 112 units Basal Dose: 27 units Bolus Dose: 81 units Correctional Dose: 4 units Target inpatient blood glucose is 100-200 mg/dl goal adjusted based on multiple comorbidies Inpatient glycemic control is complicated by variable oral intake, snacking and stress/illness. Recent Labs Lab Units 11/30/24 1142 11/30/24 0737 11/30/24 0212 11/30/24 0002 11/29/24 2158 11/29/24 2056 11/29/24 1929 11/29/24 1712 11/29/24 1117 11/29/24 0742 GLUCOSE mg/dL -- -- -- 171 -- See Comment -- -- -- -- POC GLUCOSE MONITOR mg/dL 121 220* 227* -- 207* -- 182 128 189 149 Vitals & Exam Temp: [36.5 ??C (97.7 ??F)-36.8 ??C (98.2 ??F)] 36.8 ??C (98.2 ??F) Pulse: [64-99] 64 BP: (101-127)/(66-100) 101/75 Resp: [16-18] 16 SpO2: [97 %-100 %] 100 % I/O this shift: In: 240 [P.O.:240] Out: 250 [Urine:250] Physical Exam Gen : 59 year old female in no acute distress, alert, appropriate, cooperative, appears stated age,well-developed, well-nourished HENT : normocephalic, atraumatic, moist mucus membranes Eyes : conjunctiva clear, anicteric Pulm : non-labored, on room air Extr : atraumatic, no cyanosis/clubbing, +1 LE edema (compression socks in place). Skin : turgor normal Neuro : alert, speech fluent, comprehension intact, moving all extremities Psych : cooperative, appropriate affect & mood, good insight & judgment Data Medications, labs, imaging, and diagnostics independently reviewed in Epic and commented on below. Lab Results Component Value Date TSH 0.72 04/16/2024 T3FREE 1.7 (L) 04/16/2024 FREET4 1.49 04/16/2024 THYROGLOBULI 4.1 (H) 07/21/2022 THGAB <1.8 07/21/2022 Lab Results Component Value Date CHOL 101 11/08/2024 TRIG 152 (H) 11/08/2024 HDL 29 (L) 11/08/2024 LDLCALC 46 11/08/2024 Lab Results Component Value Date CORTISOL 18.3 01/06/2024 PTH 46 04/16/2024 25HYDROVITD 29 (L) 04/16/2024 Lab Results Component Value Date HGBA1C 6.0 (H) 11/19/2024 Assessment & Plan # Type 2 Diabetes Mellitus, Controlled, Long-term Use of Insulin, complicated by Nephropathy: CKD2,Peripheral Neuropathy, and HFrEF Current HbA1c and reliability: 6.0% on 11/19/24, unreliable d/t anemia HbA1c goal based on comorbidities: less than 7% Home regimen: Metformin XR 500 mg BID, Glargine 30 units in AM, Humalog 10 units with meals Diabetes Provider: Coy Patel MD, [facility] Insurance: Payor: [employer] / Plan: [facility] CHOICE PLUS / Product Type: [facility] HMO/PPO / I have reviewed the following test results: CBC, CMP/BMP including renal function, Lipid panel, serum glucose levels, and POC glucose levels. Inpatient glycemic management complicated by: variable oral intake, stress, and insulin resistance. Today, I am treating the patient for Type 2 Diabetes Mellitus which is in moderate exacerbation, progression, or experiencing treatment side effects as evidenced by hyperglycemia as described in the note. Glycemia improved with consistent snack dosing of insulin overnight. We recommend to increase the snack dose as it did not completely cover her snacks. We will continue to intensely monitor blood glucose and titrate insulin as needed to optimize glycemic control to avoid hypoglycemic/hyperglycemic events. Recommendations for glycemic management has been communicated to the primary team. Recommendations: Basal Insulin: - Continue Glargine (Lantus) 27 units qHS Mealtime/Bolus Insulin: - Continue Lispro (Humalog) 20 units TID AC - INCREASE lispro (Humalog) from 7 units ==> 9 units Q4 hours PRN for snacks. Correctional/Sliding-Scale Insulin: - Continue resistant correctional Lispro (Humalog) TID AC, HS - POC glucoses TID AC, HS, 2AM when eating - Consistent carb diet when eating, no juices, no regular soda - When NPO, continue Glargine (Lantus/Semglee), hold mealtime Lispro (Humalog), change correctional(sliding scale) Lispro (Humalog) and POC glucoses to Q4hr - IF he has severe hyperglycemia (>300), use the hyperglycemia urgency order set (make NPO, IV insulin, re-check in 1 hour) # Discharge Planning Use ???Adult END Diabetes Discharge?? Order Set Discharge Medication Recommendations: Resume home regimen with updated insulin doses. Follow up: Established Endocrinology on 03/11/25 as scheduled -- Dianna Carranza NP Endocrinology, Metabolism, & Lipid Research Contact Info: New Endocrinology Diabetes Consults: [phone] General Endocrine (Non-Diabetes): [phone] Treatment Teams: [facility] Endocrinology Diabetes 1: Fellow + Attending [facility] Endocrinology Diabetes 2: Namita Crump NP at [phone] [facility] Endocrinology Diabetes 3: Dianna Carranza NP at [phone] [facility] Endocrinology Diabetes 4: Estrella Smith NP (/) at [phone] or Yeimi Vargas NP (//) at [phone] Diabetes After-Hours & Weekends: Diabetes Fellow [phone] or [phone] GER WEB APPLICATION * Summary of Treatment Recommendations Non-Billable - Dianna aCrranza NP - 11/30/2024 1:38 PM CST Diabetes Service Sign Off Recommendations Type of DM: Type 2 Diabetes Mellitus, Controlled, Long-term Use of Insulin, complicated by Nephropathy: CKD2, Peripheral Neuropathy, and HFrEF Diagnosis: 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) [I50.42] Heart failure (HCC) [I50.9] Acute on chronic systolic congestive heart failure (CMS/HCC) (HCC) [I50.23] PMD: Juni Hays MD Medication Recommendations (Please use the ADULT END DIABETES DISCHARGE order set): - Glargine 27 units once daily at in AM. - Lispro 15 units three times daily with meals + correction 2 units for every 50 points greater than 150 mg/dl - Lispro 7 units Q4 hours as needed for snacks with greater than 20 grams of carbohydrate. 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 Follow Up Plan: [facility] Endocrinology Appointment date: 03/11/25 @ 10:40 AM with Coy Patel MD Location: [facility]. [phone] GER WEB APPLICATION * Plan of Care - Nathaly Giron RN - 11/30/2024 1:25 PM CST 11/30/24 1325 Communications Important Message from Medicare notice given to patient? Yes IM letter completed with patient/retail wireless sales representative at bedside. Patient/retail wireless sales representative were informed ofthe planned discharge date, the date the beneficiary's financial liability begins, the beneficiary's appeal rights, and how and when to initiate an appeal. Patient/retail wireless sales representative were provided a copy of the IM letter and IM letter was placed in unit???s designated medical record bin to be uploaded into the patient???s chart. GER WEB APPLICATION * Assessment & Plan Note - Manisha Williamson NP - 11/30/2024 7:29 AM CSTAssociated Problem(s): Discharge planning issues Remains medically stable for over a week. Waiting on insurance auth for SNF. Denied. P2P completed on 11/30 and decision overturned. -patient is a good SNF candidate requiring care from PT/OT and nursing staff. She requires adjustments to her insulin regimen and close monitoring of her respiratory status given severe CHF GER WEB APPLICATION * Plan of Care - Anabel Eugene RRT - 11/30/2024 12:13 AM CST NPPV - PATIENT WORE Situation: The patient was ordered on NPPV for nocturnal use due to a history of Obstructive Sleep Apnea (BI). Patient was placed on their home NPPV machine. Settings: NPPV Mode: CPAP EPAP Pressure: 8 cm H20. With 3 lpm bled in Tolerance: The patient tolerated the NPPV without issue. Plan: Proceed as ordered and continue to monitor the patient. GER WEB APPLICATION * Plan of Care - Kingston Fulton RN - 11/29/2024 10:15 PM CST Problem: Lack of Knowledge Goal: Ability to develop a pain control plan will improve Outcome: Progressing Problem: Medication Goal: Satisfaction with pain management medication regimen will improve Outcome: Progressing Problem: Sensory Goal: Ability to identify factors that increase pain levels will improve while working to decrease the patient's pain levels Outcome: Progressing Problem: Coping Goal: Ability to cope will improve Outcome: Progressing Problem: Health Behavior Goal: Identification of resources available to assist in meeting health care needs will improve Outcome: Progressing Problem: Discharge Planning Goal: Understanding discharge needs will improve Outcome: Progressing Problem: Fall Risk Goal: Ability to state ways to decrease the risk of falls will improve Outcome: Progressing Goal: Will remain free from falls Outcome: Progressing Goal: Will remain free from injury from falls Outcome: Progressing Problem: Neurosensory Goal: Achieves maximal functionality and self care Outcome: Progressing Problem: Respiratory Goal: Achieves optimal ventilation and oxygenation Outcome: Progressing Problem: Cardiovascular Goal: Maintains optimal cardiac output and hemodynamic stability Outcome: Progressing Problem: Skin/Tissue Integrity Goal: Incisions, wounds, or drain sites healing without S/S of infection Outcome: Progressing Problem: Musculoskeletal Goal: Return mobility to safest level of function Outcome: Progressing Problem: Gastrointestinal Goal: Minimal or absence of nausea and vomiting Outcome: Progressing Problem: Genitourinary Goal: Absence of urinary retention Outcome: Progressing Problem: Infection Goal: Absence of infection during hospitalization Outcome: Progressing Problem: Metabolic/Fluid and Electrolytes Goal: Electrolytes maintained within normal limits Outcome: Progressing Problem: Hematologic Goal: Maintains hematologic stability Outcome: Progressing Problem: Lack of Knowledge Goal: Ability to describe self care measures that may prevent or decrease complications related to Type 1 Diabetes will improve Outcome: Progressing Goal: Ability to describe self care measures that may prevent or decrease complications related to Type 2 Diabetes will improve Outcome: Progressing Problem: Health Nutrition Goal: Nutritional intake and knowledge related to Diabetes will improve Outcome: Progressing Problem: Skin Integrity Impairment Risk Goal: Mobility will improve Outcome: Progressing Goal: Understanding of ways to prevent future skin breakdown will improve Outcome: Progressing Goal: Nutritional status will improve Outcome: Progressing Goal: Risk for impaired skin integrity will decrease Outcome: Progressing Goals: Clinical Goals for the Shift: VS, NVS, PVS checks; safety precautions; pain control; blood sugar control; site care and monitoring; comfort measures [employer] Patient Centered Goal for Treatment: to get stronger so that I can go home Summary: A&Ox4; resting comfortably on bed; pain well controlled with current pain regimen; needs attended to GER WEB APPLICATION * ECIN Note - Nathaly Giron RN - 11/29/2024 2:58 PM CST Images from the original note were not included. Patient Information: OT Eval and Treat Last 72 Hours OT Evaluation No documentation. OT Treatment Row Name 11/25/24 1436 Session Type Treatment -ER OT Received On 11/25/24 -ER Safe Environment Arm band checked;Patient found in supine -ER Subjective Agreeable to Therapy -ER Family/Caregiver Present No -ER Precautions Fall risk;BI -ER Weight Bearing Restrictions No -ER Precaution Handout Issued No -ER Precaution Comments pt demonstrates understanding of safety -ER Pain Assessment 0-10 -ER Pain Score 7 -ER Pain Interventions RN Notified -ER Overall Cognitive Status WFL -ER Arousal/Alertness Alert -ER Attention Span Appears intact -ER Memory Appears intact -ER Current communication Appears Intact -ER Orientation Oriented X4 (person, place, time, situation) -ER Following Commands Follows all commands and directions without difficulty -ER Safety Judgment Good awareness of safety precautions -ER Awareness of Errors Good awareness of errors made -ER Insight Fully aware of deficits -ER Problem Solving Able to problem solve independently -ER Compliance/Behavior Easy to engage -ER Perseveration Not present -ER Balance Yes -ER Static Sitting-Balance Support Feet supported -ER Static Sitting-Sitting Surface Bed -ER Static Sitting-Level of Assistance Independent -ER Dynamic Sitting-Balance Support Feet supported -ER Dynamic Sitting-Balance Forward lean;Reaching for objects -ER Dynamic Sitting-Sitting Surface Chair -ER Dynamic Sitting-Level of Assistance Distant supervision -ER Dynamic Sitting-Comments safety -ER Static Standing-Balance Support No upper extremity supported -ER Static Standing-Standing Surface Floor -ER Static Standing-Level of Assistance Close supervision -ER Static Standing-Comment/# of Minutes safety -ER Dynamic Standing-Balance Support No upper extremity supported -ER Dynamic Standing-Balance Forward lean;Reaching for objects -ER Dynamic Standing-Standing Surface Floor -ER Dynamic Standing-Level of Assistance Minimum assistance -ER Dynamic Standing-Comments balance and safety -ER ADLS (WDL) X -ER Grooming: Where assessed Chair -ER Grooming: Level of assistance Moderate Assist -ER Grooming: Assistance with Increased time to complete;Balance -ER LE Dressing: Where assessed Sitting -ER LE Dressing: Level of assistance Minimum Assist -ER LE Dressing: Assistance with Increased time to complete;Supervision/safety;Requires assistive device for steadying;Don/doff R sock;Don/doff L sock -ER Toileting: Where assessed Bedside Commode -ER Toileting: Level of assistance Standby Assist -ER Toileting: Assistance with Increased time to complete;Safety;Balance -ER Bed Mobility Yes -ER Bed Mobility From 1 Supine -ER Bed Mobility Type 1 To and from -ER Bed Mobility to 1 Edge of bed -ER Level of Assistance 1 Standby Assist -ER Bed Mobility Comments 1 safety -ER Transfer Yes -ER Transfer From 1 Sit -ER Transfer Type 1 To and from -ER Transfer to 1 Stand -ER Technique 1 Sit to stand;Stand to sit -ER Transfer Device 1 No device;Hand held assist -ER Transfer Level of Assistance 1 Standby Assist -ER Trials/Comments 1 safety -ER Toilet Transfer From Bed -ER Toilet Transfer Type To and from -ER Toilet Transfer to Standard bedside commode -ER Toilet Transfer Technique Stand and Step -ER Toilet Transfer: Equipment No device -ER Toilet Transfers Minimal assistance -ER Toilet Transfers Comments balance and safety; pt demonstrates decreased endurance and activity tolerance -ER Comments Further mobility and activity deferred at this time 2/2 pt reporting increased symptoms offatigue and pain as session progressed; RN notified; Pt's decreased activity tolerance is a significant limiting factor in her progression to PLOF -ER Putting on and taking off regular lower body clothing 3 -ER Bathing 3 -ER Toileting 3 -ER Putting on and taking off upper body clothing 3 -ER Personal Grooming 2 -ER Eating Meals 4 -ER Total Score (range 6-24) 18 -ER Score Interpretation 38.66 -ER Safe Environment End of Therapy Session Patient left supine in bed;RN notified;Call light within reach;Overbed table within reach -ER Problem List Decreased mobility;Decreased endurance;Decreased ADL independence;Decreased IADL independence;Decreased functional mobility;Pain;Decreased frequency/variety of movement -ER Barriers to Discharge Current Mobility Status;Current ADL Status -ER Barrier Comments fall risk -ER Plan Continue with current plan;If this is the last note, consider this the discharge summary -ER OT Recommendation Long-Term Facility -ER Recommend SNF due to Risk of injury at home;Unable to safely care for self in the home;Skilled therapy needed to address care for self in the home;Skilled therapy needed to address functional deficits;Skilled therapy needed for patient to return to prior level of independence -ER Patient at high risk for Falls;Readmission;Injury due to decreased ability to care for self;Injury due to reduced functional status;Injury due to balance deficits;Injury at home as patient has not returned to prior level of function;Developing impaired skin integrity -ER OT Frequency during current admission 3-5x/wk -ER Treatment/Interventions during current admission ADL/IADL retraining;Balance Training;Bed mobility;Compensatory technique education;Endurance training;Functional activity;Functional mobility training;Functional transfer training;Strengthening;Therapeutic activity;Therapeutic exercise -ER Progress during current admission Slow progress, decreased activity tolerance -ER OT - Next Appointment 11/29/24 -ER OT Evaluation Complete Yes -ER OT Start Time 1433 -ER OT Stop Time 1454 -ER OT Time Calculation (min) 21 min -ER User Lara (r) = Recorded By, (t) = Taken By, (c) = Cosigned By Initials Name Effective Dates ER Yeimi Wilkinson, OT 09/01/23 - OT Notes Notes from 11/27/24 through 11/29/24 No notes of this type exist for this encounter. , PT Eval and Treat Last 72 Hours PT Evaluation No documentation. PT TREATMENT (Last 168 Hours) PT Treatment Row Name 11/29/24 0858 11/23/24 0917 PT Last Visit Session Type Treatment -JL Treatment -SHELTON (r) AR (c) Safe Environment Patient found in supine;Gait belt utilized for all out of bed mobility -JL Arm band checked;Patient found in supine -SHELTON (r) AR (c) Subjective Agreeable to Therapy -JL Agreeable to Therapy -SHELTON (r) AR (c) Subjective Comment hoping to be discharged today -JL -- Family/Caregiver Present No -JL No -SHELTON (r) AR (c) Precautions Precautions Fall risk;BI -JL Fall risk;BI -SHELTON (r) AR (c) Weight Bearing Restrictions -- No -SHELTON (r) AR (c) Precaution Handout Issued -- No -SHELTON (r) AR (c) Precaution Comments -- Pt demonstrated awareness of precautions -SHELTON (r) AR (c) Activity Tolerance Activity Tolerance Comments alex: somewhat hard -JL Alex: Hard -SHELTON (r) AR (c) Pain Assessment Pain Assessment 0-10 -JL 0-10 -SHELTON (r) AR (c) Pain Score 5 - Moderate pain -JL 6 -SHELTON (r) AR (c) Patient's Stated Pain Goal -- No pain -SHELTON (r) AR (c) Pain Type Chronic pain -JL Surgical pain -SHELTON (r) AR (c) Pain Location Back (Lumbar) -JL Chest -SHELTON (r) AR (c) Pain Orientation -- Right -SHELTON (r) AR (c) Pain Interventions Medication (See MAR) -JL RN Notified Jessica BUI -SHELTON (r) AR (c) Cognition Arousal/Alertness Alert -JL Alert;Appropriate responses to stimuli -SHELTON (r) AR (c) Orientation -- Oriented to person;Oriented to place;Oriented to situation -SHELTON (r) AR (c) Following Commands Follows all commands and directions without difficulty -JL Follows all commands and directions without difficulty -SHELTON (r) AR (c) Safety Judgment Good awareness of safety precautions -JL -- Balance Tests Balance Tests -- No -SHELTON (r) AR (c) Balance Balance -- Yes -SHELTON (r) AR (c) Static Sitting Balance Static Sitting-Balance Support Feet supported;No upper extremity supported -JL Bilateral upper extremity supported;Feet unsupported Arms supported on bed -SHELTON (r) AR (c) Static Sitting-Sitting Surface Bed -JL Bed -SHELTON (r) AR (c) Static Sitting-Level of Assistance Independent -JL Distant supervision -SHELTON (r) AR (c) Static Sitting-Comment/# of Minutes -- Supervision due to potential LOB because of pain -SHELTON (r) AR (c) Static Standing Balance Static Standing-Balance Support Bilateral upper extremity supported -JL No upper extremity supported -SHELTON (r) AR (c) Static Standing-Standing Surface Floor -JL Floor -SHELTON (r) AR (c) Static Standing-Level of Assistance Minimum assistance -JL Close supervision -SHELTON (r) AR (c) Static Standing-Comment/# of Minutes use of w/w -JL Supervision due to increased fall risk and pt is easy to fatigue -SHELTON (r) AR (c) Bed Mobility Bed Mobility -- Yes -SHELTON (r) AR (c) Bed Mobility 1 Bed Mobility From 1 Edge of bed -JL Supine -SHELTON (r) AR (c) Bed Mobility Type 1 To -JL To and from -SHELTON (r) AR (c) Bed Mobility to 1 Supine -JL Edge of bed -SHELTON (r) AR (c) Level of Assistance 1 Modified Independent -JL Standby Assist -SHELTON (r) AR (c) Bed Mobility Comments 1 -- SBA for potential LOB posteriorly or laterally -SHELTON (r) AR (c) Transfers Transfer -- Yes -SHELTON (r) AR (c) Transfer 1 Transfer From 1 Sit -JL Bed -SHELTON (r) AR (c) Transfer Type 1 To and from -JL To and from -SHELTON (r) AR (c) Transfer to 1 Stand -JL Commode-standard -SHELTON (r) AR (c) Technique 1 -- Stand and step -SHELTON (r) AR (c) Transfer Device 1 Wheeled walker -JL No device -SHELTON (r) AR (c) Transfer Level of Assistance 1 Standby Assist -JL Standby Assist -SHELTON (r) AR (c) Trials/Comments 1 performed x 3 reps -JL SBA due to increased fall risk and pt is quick to fatigue -SHELTON (r) AR (c) Transfers 2 Transfer From 2 Bed -JL Sit -SHELTON (r) AR (c) Transfer Type 2 To and from -JL To and from -SHELTON (r) AR (c) Transfer to 2 Commode-standard -JL Stand -SHELTON (r) AR (c) Technique 2 Stand and step;To right;To left -JL Sit to stand;Stand to sit -SHELTON (r) AR (c) Transfer Device 2 No device -JL No device -SHELTON (r) AR (c) Transfer Level of Assistance 2 Standby Assist -JL Standby Assist -SHELTON (r) AR (c) Trials/Comments 2 BUE support on arms of commode and bedrail -JL SBA due to increased fall risk andpt is quick to fatigue -SHELTON (r) AR (c) Ambulation Functional Ambulation Category 1 -JL -- Ambulation Yes -JL No Not appropriate as pt experiences signficant fatigue with little movement -SHELTON(r) AR (c) Ambulation 1 Ambulation Comments 1 performed pre-gait activity of marching in place x 2 bouts; two steps bilaterally on first bout and three reps bilaterally on second bout; pt with decreased weight shift to RLE and decreased step height on LLE 2/2 right hip weakness consistent with fracture and s/p fixation inpast; seated rest break required between bouts 2/2 low activity tolerance -JL -- Stairs Stairs No -JL No -SHELTON (r) AR (c) Stair Comments -- Not appropriate at current level of endurance -SHELTON (r) AR (c) Basic Mobility - 6 Click How much difficulty does the patient have: Turning over in bed 4 -JL 3 -SHELTON (r) AR (c) How much difficulty does the patient currently have: Sitting down and standing up from a chair witharms? 3 -JL 4 -SHELTON (r) AR (c) How much difficulty does the patient have: Moving from lying on back to sitting on the side of the bed? 4 -JL 4 -SHELTON (r) AR (c) How much difficulty does the patient have: Moving to and from a bed to a chair including wheelchair? 3 -JL 4 -SHELTON (r) AR (c) How much help does the patient currently need: Walk in hospital room? 3 -JL 2 - SHELTON (r) AR (c) How much help from another person does the patient currently need: Climbing 3-5 steps with a railing? 1 -JL 1 -SHELTON (r) AR (c) Total 6 Click Score (range 6-24) 18 -JL 18 -SHELTON Score Interpretation -- 41.05 -SHELTON (r) AR (c) Safe Environment End of Therapy Session Safe Environment End of Therapy Session Patient left sitting at edge of bed;Call light within reach;Overbed table within reach -JL Patient left supine in bed;RN notified;Call light within reach;Overbed table within reach -SHELTON (r) AR (c) Assessment Prognosis Good -JL Good -SHELTON (r) AR (c) Problem List Reduced mobility;Debility;Gait deviations;Decreased strength;Decreased range of motion;Decreased endurance;Impaired balance;Pain -JL Reduced mobility;Decreased strength;Decreased endurance;Impaired balance -SHELTON (r) AR (c) Barriers to Discharge -- Current Mobility Status -SHELTON (r) AR (c) Plan Plan Continue with current plan;If this is the last note, consider this the discharge summary -JL Continue with current plan;If this is the last note, consider this the discharge summary -SHELTON (r) AR (c) Recommendation/Plan PT Recommendation/Plan Long-Term Facility -JL Long-Term Facility -SHELTON (r) AR (c) Recommend SNF due to Risk of injury at home;Unable to safely care for self in the home;Skilled therapy needed to address care for self in the home;Skilled therapy needed to address functional deficits;Skilled therapy needed for patient to return to prior level of independence -JL Risk of injury at home;Skilled therapy needed to address functional deficits;Skilled therapy needed for patient to return to prior level of independence -SHELTON (r) AR (c) Patient at high risk for Falls;Readmission;Injury due to decreased ability to care for self;Injury due to reduced functional status;Injury due to balance deficits;Injury at home as patient has not returned to prior level of function - JL Falls;Injury due to reduced functional status;Injury due to balance deficits;Injury at home as patient has not returned to prior level of function - SHELTON (r) AR (c) PT Frequency during current admission 3-5x/wk -JL 3-5x/wk -SHELTON (r) AR (c) Treatment/Interventions during current admission Balance Training;Bed mobility;Endurance training;Equipment eval/education;Functional activity;Functional transfer training;Gait training;Neuromuscularre- education;Positioning;Range of motion;Stair training;Strengthening;Therapeutic activity;Therapeutic exercise;Transfer training;Wheelchair mobility/management - JL Balance Training;Bed mobility;Functional activity;Functional transfer training;Therapeutic activity -SHELTON (r) AR (c) PT Equipment Recommended -- None -SHELTON (r) AR (c) Progress during current admission Improving as expected -JL Progressing toward goals -SHELTON (r) AR (c) PT Time Calculation PT Start Time 0858 -JL 0917 -SHELTON (r) AR (c) PT Stop Time 09 -JL 0932 -SHELTON (r) AR (c) PT Time Calculation (min) 25 min -JL 15 min -SHELTON User Lara (r) = Recorded By, (t) = Taken By, (c) = Cosigned By Initials Name Effective Dates AR Asim Cross, PT 06/13/21 - Sheree Minaya 10/21/24 - Paras Bee, DPT 03/01/21 - PT Notes 11/29/2024 1:01 PM Progress Notes signed by Paras Harrison, DPT GER WEB APPLICATION * Consults, Subsequent - Dianna Carranza NP - 11/29/2024 2:08 PM MANAGER WEB APPLICATION Endocrinology & Diabetes Inpatient Subsequent Consult Note Patient: Blossom De León, 59 y.o. female (: 1965) Room: [place] [address]/[place] [address] ( ) LOS: 10 Blossom De León is a 59 y.o. female with 59 y.o. 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 The Endocrinology/Diabetes Service is providing inpatient blood glucose management and discharge planning recommendations during this hospitalization. Interval Events & Subjective There were no acute events overnight. However, patient is very hyperglycemic this AM. She reports having turkey sandwich over night, did received snack insulin of 5 units. Delayed due to initial blood sugar being 84 . Diet: Adult Discharge Diet Adult Diet Restricted; Consistent Carbohydrate; No juice on tray Blood glucose over previous 24 hours range 70-319 mg/dl Fasting blood glucose this morning was 149 mg/dl Pre-lunch blood glucose was 189 mg/dl Total daily dose of insulin was 91 units Basal Dose: 27 units Bolus Dose: 40 units Correctional Dose: 24 units Target inpatient blood glucose is 100-200 mg/dl goal adjusted based on multiple comorbidies Inpatient glycemic control is complicated by variable oral intake, snacking and stress/illness. Recent Labs Lab Units 11/29/24 1117 11/29/24 0742 11/29/24 0207 11/29/24 0002 11/28/24 2154 11/28/24 1926 11/28/24 1816 11/28/24 1701 11/28/24 1119 11/28/24 0720 GLUCOSE mg/dL -- -- -- -- 282* -- -- -- -- -- POC GLUCOSE MONITOR mg/dL 189 149 163 202* -- 319* 115 70 280* 247* Vitals & Exam Temp: [36.4 ??C (97.6 ??F)-36.7 ??C (98.1 ??F)] 36.7 ??C (98.1 ??F) Pulse: [52-98] 55 BP: (119-148)/(65-99) 119/97 Resp: [18] 18 SpO2: [100 %] 100 % I/O this shift: In: 300 [P.O.:300] Out: 300 [Urine:300] Physical Exam Gen : 59 year old female in no acute distress, alert, appropriate, cooperative, appears stated age,well-developed, well-nourished HENT : normocephalic, atraumatic, moist mucus membranes Eyes : conjunctiva clear, anicteric Pulm : non-labored, on room air Extr : atraumatic, no cyanosis/clubbing, +1 LE edema (compression socks in place). Skin : turgor normal Neuro : alert, speech fluent, comprehension intact, moving all extremities Psych : cooperative, appropriate affect & mood, good insight & judgment Data Medications, labs, imaging, and diagnostics independently reviewed in Epic and commented on below. Lab Results Component Value Date TSH 0.72 04/16/2024 T3FREE 1.7 (L) 04/16/2024 FREET4 1.49 04/16/2024 THYROGLOBULI 4.1 (H) 07/21/2022 THGAB <1.8 07/21/2022 Lab Results Component Value Date CHOL 101 11/08/2024 TRIG 152 (H) 11/08/2024 HDL 29 (L) 11/08/2024 LDLCALC 46 11/08/2024 Lab Results Component Value Date CORTISOL 18.3 01/06/2024 PTH 46 04/16/2024 25HYDROVITD 29 (L) 04/16/2024 Lab Results Component Value Date HGBA1C 6.0 (H) 11/19/2024 Assessment & Plan # Type 2 Diabetes Mellitus, Controlled, Long-term Use of Insulin, complicated by Nephropathy: CKD2,Peripheral Neuropathy, and HFrEF Current HbA1c and reliability: 6.0% on 11/19/24, unreliable d/t anemia HbA1c goal based on comorbidities: less than 7% Home regimen: Metformin XR 500 mg BID, Glargine 30 units in AM, Humalog 10 units with meals Diabetes Provider: Coy Patel MD, [facility] Insurance: Payor: [facility] / Plan: [facility] CHOICE PLUS / Product Type: [facility] HMO/PPO / I have reviewed the following test results: CBC, CMP/BMP including renal function, Lipid panel, serum glucose levels, and POC glucose levels. Inpatient glycemic management complicated by: variable oral intake, stress, and insulin resistance. Today, I am treating the patient for Type 2 Diabetes Mellitus which is in severe exacerbation, progression, or experiencing treatment side effects as evidenced by hyperglycemia Glycemia remains uncontrolled. Mostly postprandial and the result of snacking. No changes to current insulin regimen. Patient reports she will not snack on the chocolate anymore. We will continue to intensely monitor blood glucose and titrate insulin as needed to optimize glycemic control to avoid h ypoglycemic/hyperglycemic events. Recommendations for glycemic management has been communicated to the primary team. Recommendations: Basal Insulin: - Continue Glargine (Lantus) 27 units qHS Mealtime/Bolus Insulin: - Continue Lispro (Humalog) 20 units TID AC - Continue lispro (Humalog) 5 units Q4 hours PRN for snacks. Correctional/Sliding-Scale Insulin: - Continue resistant correctional Lispro (Humalog) TID AC, HS - POC glucoses TID AC, HS, 2AM when eating - Consistent carb diet when eating, no juices, no regular soda - When NPO, continue Glargine (Lantus/Semglee), hold mealtime Lispro (Humalog), change correctional(sliding scale) Lispro (Humalog) and POC glucoses to Q4hr - IF he has severe hyperglycemia (>300), use the hyperglycemia urgency order set (make NPO, IV insulin, re-check in 1 hour) # Discharge Planning Use ???Adult END Diabetes Discharge?? Order Set Discharge Medication Recommendations: Resume home regimen with updated insulin doses. Follow up: Established Endocrinology on 03/11/25 as scheduled -- Dianna Carranza NP Endocrinology, Metabolism, & Lipid Research Contact Info: New Endocrinology Diabetes Consults: [phone] General Endocrine (Non-Diabetes): [phone] Treatment Teams: [facility] Endocrinology Diabetes 1: Fellow + Attending [facility] Endocrinology Diabetes 2: Namita Crump NP at [phone] [facility] Endocrinology Diabetes 3: Dianna Carranza NP at [phone] [facility] Endocrinology Diabetes 4: Estrella Smith NP (M/) at [phone] or Yeimi Vargas NP (//) at [phone] Diabetes After-Hours & Weekends: Diabetes Fellow [phone] or [phone] GER WEB APPLICATION * Plan of Care - Nathaly Giron RN - 11/29/2024 12:58 PM CST 11/29/24 1257 Discharge Planning Support System Children Anticipated discharge level of care intermediate facility (short term care) Does the patient need discharge transport arranged? Yes Type of Transportation Ambulance/EMS Has discharge transport been arranged? No Discharge Transportation Communication NA Post Acute Care Plan Home Care Services N/A OP Services N/A DME N/A Post Acute Care Facility N/A CM Progression of Care Update Per Medical Chart/Rounds/IDR: medically ready for discharge unable to get approval from insurance ADD: medically ready Discharge Barriers: insurance denied p2p prior to completion. VETERINARY PARASITOLOGIST called and rescheduled p2p for today 11/29. Daughter Ana informed of delay and reason. Education Needs Identified (plan):na F/U Appointments: na Patient's Identified Problem/Goal Problem:?Ensure acute medical needs are met and that patient has a safe discharge plan. Goal:?Secure a discharge plan that patient/family are agreeable with?and ensure patient has continuum of care. Patient and/or family are agreeable with plan. visual merchandising manager will continue to follow and assist with discharge planning as needed. If any further discharge needs arise, please contact the covering protective services case worker. GER WEB APPLICATION * Plan of Care - Genoveva Edwards RN - 11/29/2024 11:25 AM CST Problem: Lack of Knowledge Goal: Ability to develop a pain control plan will improve Outcome: Progressing Problem: Medication Goal: Satisfaction with pain management medication regimen will improve Outcome: Progressing Problem: Sensory Goal: Ability to identify factors that increase pain levels will improve while working to decrease the patient's pain levels Outcome: Progressing Problem: Coping Goal: Ability to cope will improve Outcome: Progressing Problem: Health Behavior Goal: Identification of resources available to assist in meeting health care needs will improve Outcome: Progressing Problem: Discharge Planning Goal: Understanding discharge needs will improve Outcome: Progressing Problem: Fall Risk Goal: Ability to state ways to decrease the risk of falls will improve Outcome: Progressing Goal: Will remain free from falls Outcome: Progressing Goal: Will remain free from injury from falls Outcome: Progressing Problem: Neurosensory Goal: Achieves maximal functionality and self care Outcome: Progressing Problem: Respiratory Goal: Achieves optimal ventilation and oxygenation Outcome: Progressing Problem: Cardiovascular Goal: Maintains optimal cardiac output and hemodynamic stability Outcome: Progressing Problem: Skin/Tissue Integrity Goal: Incisions, wounds, or drain sites healing without S/S of infection Outcome: Progressing Problem: Musculoskeletal Goal: Return mobility to safest level of function Outcome: Progressing Problem: Gastrointestinal Goal: Minimal or absence of nausea and vomiting Outcome: Progressing Problem: Genitourinary Goal: Absence of urinary retention Outcome: Progressing Problem: Infection Goal: Absence of infection during hospitalization Outcome: Progressing Problem: Metabolic/Fluid and Electrolytes Goal: Electrolytes maintained within normal limits Outcome: Progressing Problem: Hematologic Goal: Maintains hematologic stability Outcome: Progressing Problem: Lack of Knowledge Goal: Ability to describe self care measures that may prevent or decrease complications related to Type 1 Diabetes will improve Outcome: Progressing Goal: Ability to describe self care measures that may prevent or decrease complications related to Type 2 Diabetes will improve Outcome: Progressing Problem: Health Nutrition Goal: Nutritional intake and knowledge related to Diabetes will improve Outcome: Progressing Problem: Skin Integrity Impairment Risk Goal: Mobility will improve Outcome: Progressing Goal: Understanding of ways to prevent future skin breakdown will improve Outcome: Progressing Goal: Nutritional status will improve Outcome: Progressing Goal: Risk for impaired skin integrity will decrease Outcome: Progressing Goals: Clinical Goals for the Shift: VS, NVS, PVS checks; safety precautions; pain control; blood sugar control; site care and monitoring; comfort measures Shelter Patient Centered Goal for Treatment: to get stronger so that I can go home GER WEB APPLICATION * Plan of Care - Tony Cuellar RRT - 11/29/2024 5:58 AM CST NPPV - PATIENT WORE Situation: The patient was ordered on NPPV for nocturnal use due to a history of Obstructive Sleep Apnea (BI). Patient was placed on their home NPPV machine. Settings: NPPV Mode: CPAP EPAP Pressure: 8 cm H20. Tolerance: The patient tolerated the NPPV without issue. Plan: Proceed as ordered and continue to monitor the patient. GER WEB APPLICATION * Plan of Care - Kingston Fulton RN - 11/28/2024 9:37 PM CST Problem: Lack of Knowledge Goal: Ability to develop a pain control plan will improve Outcome: Progressing Problem: Medication Goal: Satisfaction with pain management medication regimen will improve Outcome: Progressing Problem: Sensory Goal: Ability to identify factors that increase pain levels will improve while working to decrease the patient's pain levels Outcome: Progressing Problem: Coping Goal: Ability to cope will improve Outcome: Progressing Problem: Health Behavior Goal: Identification of resources available to assist in meeting health care needs will improve Outcome: Progressing Problem: Discharge Planning Goal: Understanding discharge needs will improve Outcome: Progressing Problem: Fall Risk Goal: Ability to state ways to decrease the risk of falls will improve Outcome: Progressing Goal: Will remain free from falls Outcome: Progressing Goal: Will remain free from injury from falls Outcome: Progressing Problem: Neurosensory Goal: Achieves maximal functionality and self care Outcome: Progressing Problem: Respiratory Goal: Achieves optimal ventilation and oxygenation Outcome: Progressing Problem: Cardiovascular Goal: Maintains optimal cardiac output and hemodynamic stability Outcome: Progressing Problem: Skin/Tissue Integrity Goal: Incisions, wounds, or drain sites healing without S/S of infection Outcome: Progressing Problem: Musculoskeletal Goal: Return mobility to safest level of function Outcome: Progressing Problem: Gastrointestinal Goal: Minimal or absence of nausea and vomiting Outcome: Progressing Problem: Genitourinary Goal: Absence of urinary retention Outcome: Progressing Problem: Infection Goal: Absence of infection during hospitalization Outcome: Progressing Problem: Metabolic/Fluid and Electrolytes Goal: Electrolytes maintained within normal limits Outcome: Progressing Problem: Hematologic Goal: Maintains hematologic stability Outcome: Progressing Problem: Lack of Knowledge Goal: Ability to describe self care measures that may prevent or decrease complications related to Type 1 Diabetes will improve Outcome: Progressing Goal: Ability to describe self care measures that may prevent or decrease complications related to Type 2 Diabetes will improve Outcome: Progressing Problem: Health Nutrition Goal: Nutritional intake and knowledge related to Diabetes will improve Outcome: Progressing Problem: Skin Integrity Impairment Risk Goal: Mobility will improve Outcome: Progressing Goal: Understanding of ways to prevent future skin breakdown will improve Outcome: Progressing Goal: Nutritional status will improve Outcome: Progressing Goal: Risk for impaired skin integrity will decrease Outcome: Progressing Goals: Clinical Goals for the Shift: VS, NVS, PVS checks; safety precautions; pain control; blood sugar control; site care and monitoring; comfort measures Shelter Patient Centered Goal for Treatment: to get stronger so that I can go home Summary: A&Ox4; resting comfortably on bed; pain well controlled with current pain regimen; needs attended to GER WEB APPLICATION * Plan of Care - Phoebe Hill RN - 11/28/2024 8:02 AM CST Problem: Lack of Knowledge Goal: Ability to develop a pain control plan will improve Outcome: Progressing Problem: Medication Goal: Satisfaction with pain management medication regimen will improve Outcome: Progressing Problem: Sensory Goal: Ability to identify factors that increase pain levels will improve while working to decrease the patient's pain levels Outcome: Progressing Problem: Coping Goal: Ability to cope will improve Outcome: Progressing Problem: Health Behavior Goal: Identification of resources available to assist in meeting health care needs will improve Outcome: Progressing Problem: Discharge Planning Goal: Understanding discharge needs will improve Outcome: Progressing Problem: Fall Risk Goal: Ability to state ways to decrease the risk of falls will improve Outcome: Progressing Goal: Will remain free from falls Outcome: Progressing Goal: Will remain free from injury from falls Outcome: Progressing Problem: Neurosensory Goal: Achieves maximal functionality and self care Outcome: Progressing Problem: Respiratory Goal: Achieves optimal ventilation and oxygenation Outcome: Progressing Problem: Cardiovascular Goal: Maintains optimal cardiac output and hemodynamic stability Outcome: Progressing Problem: Skin/Tissue Integrity Goal: Incisions, wounds, or drain sites healing without S/S of infection Outcome: Progressing Problem: Musculoskeletal Goal: Return mobility to safest level of function Outcome: Progressing Problem: Gastrointestinal Goal: Minimal or absence of nausea and vomiting Outcome: Progressing Problem: Genitourinary Goal: Absence of urinary retention Outcome: Progressing Problem: Infection Goal: Absence of infection during hospitalization Outcome: Progressing Problem: Metabolic/Fluid and Electrolytes Goal: Electrolytes maintained within normal limits Outcome: Progressing Problem: Hematologic Goal: Maintains hematologic stability Outcome: Progressing Problem: Lack of Knowledge Goal: Ability to describe self care measures that may prevent or decrease complications related to Type 1 Diabetes will improve Outcome: Progressing Goal: Ability to describe self care measures that may prevent or decrease complications related to Type 2 Diabetes will improve Outcome: Progressing Problem: Health Nutrition Goal: Nutritional intake and knowledge related to Diabetes will improve Outcome: Progressing Problem: Skin Integrity Impairment Risk Goal: Mobility will improve Outcome: Progressing Goal: Understanding of ways to prevent future skin breakdown will improve Outcome: Progressing Goal: Nutritional status will improve Outcome: Progressing Goal: Risk for impaired skin integrity will decrease Outcome: Progressing Goals: Clinical Goals for the Shift: VS, NVS, PVS checks; safety precautions; pain control; site care and monitoring; comfort measures Shelter Patient Centered Goal for Treatment: to get stronger so that I can go home GER WEB APPLICATION * Plan of Care - Yoon Ramirez RRT - 11/28/2024 5:53 AM CST NPPV - PATIENT WORE Situation: The patient was ordered on NPPV for nocturnal use due to a history of Respiratory Distress. Patientwas placed on their hospital provided NPPV machine. Settings: NPPV Mode: CPAP EPAP Pressure: 8 cm H20 FIO2: . Tolerance: The patient tolerated the NPPV without issue. Plan: Proceed as ordered and continue to monitor the patient. GER WEB APPLICATION * Plan of Care - Kingston Fulton RN - 11/27/2024 9:44 PM CST Problem: Lack of Knowledge Goal: Ability to develop a pain control plan will improve Outcome: Progressing Problem: Medication Goal: Satisfaction with pain management medication regimen will improve Outcome: Progressing Problem: Sensory Goal: Ability to identify factors that increase pain levels will improve while working to decrease the patient's pain levels Outcome: Progressing Problem: Coping Goal: Ability to cope will improve Outcome: Progressing Problem: Health Behavior Goal: Identification of resources available to assist in meeting health care needs will improve Outcome: Progressing Problem: Discharge Planning Goal: Understanding discharge needs will improve Outcome: Progressing Problem: Fall Risk Goal: Ability to state ways to decrease the risk of falls will improve Outcome: Progressing Goal: Will remain free from falls Outcome: Progressing Goal: Will remain free from injury from falls Outcome: Progressing Problem: Neurosensory Goal: Achieves maximal functionality and self care Outcome: Progressing Problem: Respiratory Goal: Achieves optimal ventilation and oxygenation Outcome: Progressing Problem: Cardiovascular Goal: Maintains optimal cardiac output and hemodynamic stability Outcome: Progressing Problem: Skin/Tissue Integrity Goal: Incisions, wounds, or drain sites healing without S/S of infection Outcome: Progressing Problem: Musculoskeletal Goal: Return mobility to safest level of function Outcome: Progressing Problem: Gastrointestinal Goal: Minimal or absence of nausea and vomiting Outcome: Progressing Problem: Genitourinary Goal: Absence of urinary retention Outcome: Progressing Problem: Infection Goal: Absence of infection during hospitalization Outcome: Progressing Problem: Metabolic/Fluid and Electrolytes Goal: Electrolytes maintained within normal limits Outcome: Progressing Problem: Hematologic Goal: Maintains hematologic stability Outcome: Progressing Problem: Lack of Knowledge Goal: Ability to describe self care measures that may prevent or decrease complications related to Type 1 Diabetes will improve Outcome: Progressing Goal: Ability to describe self care measures that may prevent or decrease complications related to Type 2 Diabetes will improve Outcome: Progressing Problem: Health Nutrition Goal: Nutritional intake and knowledge related to Diabetes will improve Outcome: Progressing Problem: Skin Integrity Impairment Risk Goal: Mobility will improve Outcome: Progressing Goal: Understanding of ways to prevent future skin breakdown will improve Outcome: Progressing Goal: Nutritional status will improve Outcome: Progressing Goal: Risk for impaired skin integrity will decrease Outcome: Progressing Goals: Clinical Goals for the Shift: VS, NVS, PVS checks; safety precautions; pain control; site care and monitoring; comfort measures [employer] Patient Centered Goal for Treatment: to get stronger so that I can go home Summary: A&Ox4; resting comfortably on bed; pain well controlled with current pain regimen; needs attended to GER WEB APPLICATION * Consults, Subsequent - Mookie Moore MD - 11/27/2024 2:12 PM CST Endocrinology & Diabetes Inpatient Subsequent Consult Note Patient: Blossom De León, 59 y.o. female (: 1965) Room: [place] [address] [address] ( ) LOS: 8 Blossom De León is a 59 y.o. female with 59 y.o. 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 The Endocrinology/Diabetes Service is providing inpatient blood glucose management and discharge planning recommendations during this hospitalization. Interval Events & Subjective There were no acute events overnight. However, patient is very hyperglycemic this AM. She reports having turkey sandwich over night, did received snack insulin of 5 units. Delayed due to initial blood sugar being 84 . Diet: Adult Discharge Diet Adult Diet Restricted; Consistent Carbohydrate; No juice on tray Blood glucose over previous 24 hours range 84-263 mg/dl Target inpatient blood glucose is 100-200 mg/dl goal adjusted based on multiple comorbidies Inpatient glycemic control is complicated by variable oral intake, snacking and stress/illness. Recent Labs Lab Units 11/27/24 1142 11/27/24 0721 11/27/24 0410 11/26/24 2338 11/26/24 2100 11/26/24 2011 11/26/24 1658 11/26/24 1150 11/26/24 0956 11/26/24 0808 GLUCOSE mg/dL -- -- -- -- 156 -- -- -- -- -- POC GLUCOSE MONITOR mg/dL 246* 238* 263* 84 -- 232* 144 273* 305* 381* Vitals & Exam Temp: [36.3 ??C (97.4 ??F)-36.5 ??C (97.7 ??F)] 36.3 ??C (97.4 ??F) Pulse: [52-97] 52 BP: (128-141)/(75-89) 139/75 Resp: [16] 16 SpO2: [93 %-100 %] 100 % I/O this shift: In: 100 [P.O.:100] Out: 200 [Urine:200] Physical Exam Gen : 59 year old female in no acute distress, alert, appropriate, cooperative, appears stated age,well-developed, well-nourished HENT : normocephalic, atraumatic, moist mucus membranes Eyes : conjunctiva clear, anicteric Pulm : non-labored, on room air Extr : atraumatic, no cyanosis/clubbing, +1 LE edema (compression socks in place). Skin : turgor normal Neuro : alert, speech fluent, comprehension intact, moving all extremities Psych : cooperative, appropriate affect & mood, good insight & judgment Data Medications, labs, imaging, and diagnostics independently reviewed in Epic and commented on below. Lab Results Component Value Date TSH 0.72 04/16/2024 T3FREE 1.7 (L) 04/16/2024 FREET4 1.49 04/16/2024 THYROGLOBULI 4.1 (H) 07/21/2022 THGAB <1.8 07/21/2022 Lab Results Component Value Date CHOL 101 11/08/2024 TRIG 152 (H) 11/08/2024 HDL 29 (L) 11/08/2024 LDLCALC 46 11/08/2024 Lab Results Component Value Date CORTISOL 18.3 01/06/2024 PTH 46 04/16/2024 25HYDROVITD 29 (L) 04/16/2024 Lab Results Component Value Date HGBA1C 6.0 (H) 11/19/2024 Assessment & Plan # Type 2 Diabetes Mellitus, Controlled, Long-term Use of Insulin, complicated by Nephropathy: CKD2,Peripheral Neuropathy, and HFrEF Current HbA1c and reliability: 6.0% on 11/19/24, unreliable d/t anemia HbA1c goal based on comorbidities: less than 7% Home regimen: Metformin XR 500 mg BID, Glargine 30 units in AM, Humalog 10 units with meals Diabetes Provider: Coy Patel MD, [facility] Insurance: Payor: [facility] / Plan: [facility] CHOICE PLUS / Product Type: [facility] HMO/PPO / I have reviewed the following test results: CBC, CMP/BMP including renal function, Lipid panel, serum glucose levels, and POC glucose levels. Inpatient glycemic management complicated by: variable oral intake, stress, and insulin resistance. Today, I am treating the patient for Type 2 Diabetes Mellitus which is in severe exacerbation, progression, or experiencing treatment side effects as evidenced by hyperglycemia Glycemia remains uncontrolled. It appears mostly post prandial and given FSBS 84 overnight will decrease basal insulin as a precaution. Recommendations: Basal Insulin: - Continue Glargine (Lantus) 30--27 units qHS Mealtime/Bolus Insulin: - INCREASE Lispro (Humalog) from 18 units ==> 20 units TID AC - Continue lispro (Humalog) 5 units Q4 hours PRN for snacks. Correctional/Sliding-Scale Insulin: - Continue resistant correctional Lispro (Humalog) TID AC, HS - POC glucoses TID AC, HS, 2AM when eating - Consistent carb diet when eating, no juices, no regular soda - When NPO, continue Glargine (Lantus/Semglee), hold mealtime Lispro (Humalog), change correctional(sliding scale) Lispro (Humalog) and POC glucoses to Q4hr - IF he has severe hyperglycemia (>300), use the hyperglycemia urgency order set (make NPO, IV insulin, re-check in 1 hour) # Discharge Planning Use ???Adult END Diabetes Discharge?? Order Set Discharge Medication Recommendations: Resume home regimen with updated insulin doses. Follow up: Established Endocrinology on 03/11/25 as scheduled -- Mookie Moore MD Endocrinology, Metabolism, & Lipid Research Contact Info: New Endocrinology Diabetes Consults: [phone] General Endocrine (Non-Diabetes): [phone] Treatment Teams: [facility] Endocrinology Diabetes 1: Fellow + Attending [facility] Endocrinology Diabetes 2: Namita Crump NP at [phone] [facility] Endocrinology Diabetes 3: Dianna Carranza NP at [phone] [facility] Endocrinology Diabetes 4: Estrella Simth NP (/) at [phone] or Yeimi Vargas NP (//) at [phone] Diabetes After-Hours & Weekends: Diabetes Fellow [phone] or [phone] GER WEB APPLICATION * Plan of Care - Phoebe Hill RN - 11/27/2024 10:47 AM CST Problem: Lack of Knowledge Goal: Ability to develop a pain control plan will improve Outcome: Progressing Problem: Medication Goal: Satisfaction with pain management medication regimen will improve Outcome: Progressing Problem: Sensory Goal: Ability to identify factors that increase pain levels will improve while working to decrease the patient's pain levels Outcome: Progressing Problem: Coping Goal: Ability to cope will improve Outcome: Progressing Problem: Health Behavior Goal: Identification of resources available to assist in meeting health care needs will improve Outcome: Progressing Problem: Discharge Planning Goal: Understanding discharge needs will improve Outcome: Progressing Problem: Fall Risk Goal: Ability to state ways to decrease the risk of falls will improve Outcome: Progressing Goal: Will remain free from falls Outcome: Progressing Goal: Will remain free from injury from falls Outcome: Progressing Problem: Neurosensory Goal: Achieves maximal functionality and self care Outcome: Progressing Problem: Respiratory Goal: Achieves optimal ventilation and oxygenation Outcome: Progressing Problem: Cardiovascular Goal: Maintains optimal cardiac output and hemodynamic stability Outcome: Progressing Problem: Skin/Tissue Integrity Goal: Incisions, wounds, or drain sites healing without S/S of infection Outcome: Progressing Problem: Musculoskeletal Goal: Return mobility to safest level of function Outcome: Progressing Problem: Gastrointestinal Goal: Minimal or absence of nausea and vomiting Outcome: Progressing Problem: Genitourinary Goal: Absence of urinary retention Outcome: Progressing Problem: Infection Goal: Absence of infection during hospitalization Outcome: Progressing Problem: Metabolic/Fluid and Electrolytes Goal: Electrolytes maintained within normal limits Outcome: Progressing Problem: Hematologic Goal: Maintains hematologic stability Outcome: Progressing Problem: Lack of Knowledge Goal: Ability to describe self care measures that may prevent or decrease complications related to Type 1 Diabetes will improve Outcome: Progressing Goal: Ability to describe self care measures that may prevent or decrease complications related to Type 2 Diabetes will improve Outcome: Progressing Problem: Health Nutrition Goal: Nutritional intake and knowledge related to Diabetes will improve Outcome: Progressing Problem: Skin Integrity Impairment Risk Goal: Mobility will improve Outcome: Progressing Goal: Understanding of ways to prevent future skin breakdown will improve Outcome: Progressing Goal: Nutritional status will improve Outcome: Progressing Goal: Risk for impaired skin integrity will decrease Outcome: Progressing Goals: Clinical Goals for the Shift: VS, NVS, PVS checks; safety precautions; pain control; site care and monitoring; comfort measures Shelter Patient Centered Goal for Treatment: to get stronger so that I can go home GER WEB APPLICATION * Plan of Care - Tony Cuellar RRT - 11/27/2024 4:30 AM CST NPPV - PATIENT WORE Situation: The patient was ordered on NPPV for nocturnal use due to a history of unknown . Patient was placed on their home NPPV machine. Settings: NPPV Mode: CPAP EPAP Pressure: 8 cm H20. Tolerance: The patient tolerated the NPPV without issue. Plan: Proceed as ordered and continue to monitor the patient. GER WEB APPLICATION * Plan of Care - Vianey Basurto RN - 11/26/2024 9:53 PM CST Problem: Lack of Knowledge Goal: Ability to develop a pain control plan will improve Outcome: Progressing Problem: Medication Goal: Satisfaction with pain management medication regimen will improve Outcome: Progressing Problem: Sensory Goal: Ability to identify factors that increase pain levels will improve while working to decrease the patient's pain levels Outcome: Progressing Problem: Coping Goal: Ability to cope will improve Outcome: Progressing Problem: Health Behavior Goal: Identification of resources available to assist in meeting health care needs will improve Outcome: Progressing Problem: Discharge Planning Goal: Understanding discharge needs will improve Outcome: Progressing Problem: Fall Risk Goal: Ability to state ways to decrease the risk of falls will improve Outcome: Progressing Goal: Will remain free from falls Outcome: Progressing Goal: Will remain free from injury from falls Outcome: Progressing Problem: Neurosensory Goal: Achieves maximal functionality and self care Outcome: Progressing Problem: Respiratory Goal: Achieves optimal ventilation and oxygenation Outcome: Progressing Problem: Cardiovascular Goal: Maintains optimal cardiac output and hemodynamic stability Outcome: Progressing Problem: Skin/Tissue Integrity Goal: Incisions, wounds, or drain sites healing without S/S of infection Outcome: Progressing Problem: Musculoskeletal Goal: Return mobility to safest level of function Outcome: Progressing Problem: Gastrointestinal Goal: Minimal or absence of nausea and vomiting Outcome: Progressing Problem: Genitourinary Goal: Absence of urinary retention Outcome: Progressing Problem: Infection Goal: Absence of infection during hospitalization Outcome: Progressing Problem: Metabolic/Fluid and Electrolytes Goal: Electrolytes maintained within normal limits Outcome: Progressing Problem: Hematologic Goal: Maintains hematologic stability Outcome: Progressing Problem: Lack of Knowledge Goal: Ability to describe self care measures that may prevent or decrease complications related to Type 1 Diabetes will improve Outcome: Progressing Goal: Ability to describe self care measures that may prevent or decrease complications related to Type 2 Diabetes will improve Outcome: Progressing Problem: Health Nutrition Goal: Nutritional intake and knowledge related to Diabetes will improve Outcome: Progressing Problem: Skin Integrity Impairment Risk Goal: Mobility will improve Outcome: Progressing Goal: Understanding of ways to prevent future skin breakdown will improve Outcome: Progressing Goal: Nutritional status will improve Outcome: Progressing Goal: Risk for impaired skin integrity will decrease Outcome: Progressing Goals: Clinical Goals for the Shift: VS, NVS, PVS checks; safety precautions; pain control; site care and monitoring; comfort measures [employer] Patient Centered Goal for Treatment: to get stronger so that I can go home Summary: pt remains safe and free of falls, pt tolerates current pain regimen, monitor labs/vitals/pain/nv checks/pulses, sleep hygiene GER WEB APPLICATION * Consults, Subsequent - Dianna Carranza NP - 11/26/2024 2:24 PM MANAGER WEB APPLICATION Endocrinology & Diabetes Inpatient Subsequent Consult Note Patient: Blossom De León, 59 y.o. female (: 1965) Room: [place] [address] ( ) LOS: 7 Blossom De León is a 59 y.o. female with 59 y.o. 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 The Endocrinology/Diabetes Service is providing inpatient blood glucose management and discharge planning recommendations during this hospitalization. Interval Events & Subjective There were no acute events overnight. However, patient is very hyperglycemic this AM. She reports having stas crackers and peanut butter overnight. She also has a bag of Sugar Free chocolate/caramel candies that she snacks on (17 grams of carbs for 2). Diet: Adult Discharge Diet Adult Diet Restricted; Consistent Carbohydrate; No juice on tray Blood glucose over previous 24 hours range 164-324 mg/dl Fasting blood glucose this morning was 381 mg/dl Pre-lunch blood glucose was 273 mg/dl Total daily dose of insulin was 94 units Basal Dose: 30 units Bolus Dose: 40 units Correctional Dose: 24 units Target inpatient blood glucose is 100-200 mg/dl goal adjusted based on multiple comorbidies Inpatient glycemic control is complicated by variable oral intake, snacking and stress/illness. Recent Labs Lab Units 11/26/24 1150 11/26/24 0956 11/26/24 0808 11/26/24 0408 11/26/24 0028 11/26/24 0010 11/25/24 2240 11/25/24 2137 11/25/24201011/25/24 1709 GLUCOSE mg/dL -- -- -- -- -- 201* -- -- -- -- POC GLUCOSE MONITOR mg/dL 273* 305* 381* 164 223* -- 234* 287* 351* 223* Vitals & Exam Temp: [36.6 ??C (97.9 ??F)-36.8 ??C (98.3 ??F)] 36.8 ??C (98.3 ??F) Pulse: [74-112] 86 BP: (123-152)/(80-104) 131/80 Resp: [16-18] 18 SpO2: [100 %] 100 % I/O this shift: In: - Out: 200 [Urine:200] Physical Exam Gen : 59 year old female in no acute distress, alert, appropriate, cooperative, appears stated age,well-developed, well-nourished HENT : normocephalic, atraumatic, moist mucus membranes Eyes : conjunctiva clear, anicteric Pulm : non-labored, on room air Extr : atraumatic, no cyanosis/clubbing, +1 LE edema (compression socks in place). Skin : turgor normal Neuro : alert, speech fluent, comprehension intact, moving all extremities Psych : cooperative, appropriate affect & mood, good insight & judgment Data Medications, labs, imaging, and diagnostics independently reviewed in Epic and commented on below. Lab Results Component Value Date TSH 0.72 04/16/2024 T3FREE 1.7 (L) 04/16/2024 FREET4 1.49 04/16/2024 THYROGLOBULI 4.1 (H) 07/21/2022 THGAB <1.8 07/21/2022 Lab Results Component Value Date CHOL 101 11/08/2024 TRIG 152 (H) 11/08/2024 HDL 29 (L) 11/08/2024 LDLCALC 46 11/08/2024 Lab Results Component Value Date CORTISOL 18.3 01/06/2024 PTH 46 04/16/2024 25HYDROVITD 29 (L) 04/16/2024 Lab Results Component Value Date HGBA1C 6.0 (H) 11/19/2024 Assessment & Plan # Type 2 Diabetes Mellitus, Controlled, Long-term Use of Insulin, complicated by Nephropathy: CKD2,Peripheral Neuropathy, and HFrEF Current HbA1c and reliability: 6.0% on 11/19/24, unreliable d/t anemia HbA1c goal based on comorbidities: less than 7% Home regimen: Metformin XR 500 mg BID, Glargine 30 units in AM, Humalog 10 units with meals Diabetes Provider: Coy Patel MD, [facility] Insurance: Payor: [employer] / Plan: [facility] CHOICE PLUS / Product Type: [facility] HMO/PPO / I have reviewed the following test results: CBC, CMP/BMP including renal function, Lipid panel, serum glucose levels, and POC glucose levels. Inpatient glycemic management complicated by: variable oral intake, stress, and insulin resistance. Today, I am treating the patient for Type 2 Diabetes Mellitus which is in severe exacerbation, progression, or experiencing treatment side effects as evidenced by hyperglycemia greater than 300 as described in the note. Glycemia remains uncontrolled. It appears mostly post prandial. Severe hyperglycemia after dinner. Patient had snack of stas crackers and peanut butter at 0300. We recommend to increase the bolus insulin. Start snack dose and discussed buy-in with patient. Continue current dose of basal insulin. We will continue to intensely monitor blood glucose and titrate insulin as needed to optimize glycemic control to avoid hypoglycemic/hyperglycemic events. Recommendations for glycemic management has been communicated to the primary team. Recommendations: Basal Insulin: - Continue Glargine (Lantus) 30 units qHS Mealtime/Bolus Insulin: - INCREASE Lispro (Humalog) from 15 units ==> 18 units TID AC - START lispro (Humalog) 5 units Q4 hours PRN for snacks. Correctional/Sliding-Scale Insulin: - Continue resistant correctional Lispro (Humalog) TID AC, HS - POC glucoses TID AC, HS, 2AM when eating - Consistent carb diet when eating, no juices, no regular soda - When NPO, continue Glargine (Lantus/Semglee), hold mealtime Lispro (Humalog), change correctional(sliding scale) Lispro (Humalog) and POC glucoses to Q4hr - IF he has severe hyperglycemia (>300), use the hyperglycemia urgency order set (make NPO, IV insulin, re-check in 1 hour) # Discharge Planning Use ???Adult END Diabetes Discharge?? Order Set Discharge Medication Recommendations: Resume home regimen with updated insulin doses. Follow up: Established Endocrinology on 03/11/25 as scheduled -- Dianna Carranza NP Endocrinology, Metabolism, & Lipid Research Contact Info: New Endocrinology Diabetes Consults: [phone] General Endocrine (Non-Diabetes): [phone] Treatment Teams: [facility] Endocrinology Diabetes 1: Fellow + Attending [facility] Endocrinology Diabetes 2: Namita Crump NP at [phone] [facility] Endocrinology Diabetes 3: Dianna Carranza NP at [phone] [facility] Endocrinology Diabetes 4: Estrella Smith NP (/) at [phone] or Yeimi Vargas NP (//) at [phone] Diabetes After-Hours & Weekends: Diabetes Fellow [phone] or [phone] GER WEB APPLICATION * Plan of Care - Phoebe Hill RN - 11/26/2024 11:18 AM CST Problem: Lack of Knowledge Goal: Ability to develop a pain control plan will improve Outcome: Progressing Problem: Medication Goal: Satisfaction with pain management medication regimen will improve Outcome: Progressing Problem: Sensory Goal: Ability to identify factors that increase pain levels will improve while working to decrease the patient's pain levels Outcome: Progressing Problem: Coping Goal: Ability to cope will improve Outcome: Progressing Problem: Health Behavior Goal: Identification of resources available to assist in meeting health care needs will improve Outcome: Progressing Problem: Discharge Planning Goal: Understanding discharge needs will improve Outcome: Progressing Problem: Fall Risk Goal: Ability to state ways to decrease the risk of falls will improve Outcome: Progressing Goal: Will remain free from falls Outcome: Progressing Goal: Will remain free from injury from falls Outcome: Progressing Problem: Neurosensory Goal: Achieves maximal functionality and self care Outcome: Progressing Problem: Respiratory Goal: Achieves optimal ventilation and oxygenation Outcome: Progressing Problem: Cardiovascular Goal: Maintains optimal cardiac output and hemodynamic stability Outcome: Progressing Problem: Skin/Tissue Integrity Goal: Incisions, wounds, or drain sites healing without S/S of infection Outcome: Progressing Problem: Musculoskeletal Goal: Return mobility to safest level of function Outcome: Progressing Problem: Gastrointestinal Goal: Minimal or absence of nausea and vomiting Outcome: Progressing Problem: Genitourinary Goal: Absence of urinary retention Outcome: Progressing Problem: Infection Goal: Absence of infection during hospitalization Outcome: Progressing Problem: Metabolic/Fluid and Electrolytes Goal: Electrolytes maintained within normal limits Outcome: Progressing Problem: Hematologic Goal: Maintains hematologic stability Outcome: Progressing Problem: Lack of Knowledge Goal: Ability to describe self care measures that may prevent or decrease complications related to Type 1 Diabetes will improve Outcome: Progressing Goal: Ability to describe self care measures that may prevent or decrease complications related to Type 2 Diabetes will improve Outcome: Progressing Problem: Health Nutrition Goal: Nutritional intake and knowledge related to Diabetes will improve Outcome: Progressing Problem: Skin Integrity Impairment Risk Goal: Mobility will improve Outcome: Progressing Goal: Understanding of ways to prevent future skin breakdown will improve Outcome: Progressing Goal: Nutritional status will improve Outcome: Progressing Goal: Risk for impaired skin integrity will decrease Outcome: Progressing Goals: Clinical Goals for the Shift: VS, NVS, PVS checks; safety precautions; pain control; site care and monitoring; comfort measures [employer] Patient Centered Goal for Treatment: to get stronger so that I can go home GER WEB APPLICATION * Plan of Care - Nathaly Giron RN - 11/26/2024 10:19 AM CST 11/26/24 1014 Discharge Planning Support System Children Anticipated discharge level of care intermediate facility (short term care) Does the patient need discharge transport arranged? Yes Type of Transportation Ambulance/EMS Has discharge transport been arranged? No Discharge Transportation Communication NA Post Acute Care Plan Home Care Services N/A OP Services N/A DME N/A Post Acute Care Facility N/A Per Medical Chart/Rounds/IDR: medically ready for discharge, insurance is not approving and asking for a p2p on friday ADD: 11/29 Plan/referrals made/in place: family informed of p2p on Friday with hope of resolution of [facility] swing bed. Support following discharge: daughterAna Transportation: ems F/U Appointments: na Plan for weekend discharge: no For weekend assistance, please check the treatment team in [facility] for the assigned protective services case worker or contact the weekend Case Management phone. GER WEB APPLICATION * Assessment & Plan Note - Ines Purdy NP - 11/26/2024 6:53 AM MANAGER WEB APPLICATION Associated Problem(s): Hypokalemia K 3.0 overnight - Replete K to goal > 4. - Daily BMP GER WEB APPLICATION GER WEB APPLICATION * Plan of Care - Phyllis León RRT - 11/26/2024 4:49 AM CST NPPV - PATIENT WORE Situation: The patient was ordered on NPPV for nocturnal use due to a history of Obstructive Sleep Apnea (BI). Patient was placed on their home NPPV machine. Settings: NPPV Mode: CPAP EPAP Pressure: 8 cm H20. Tolerance: The patient tolerated the NPPV without issue. Plan: Proceed as ordered and continue to monitor the patient. GER WEB APPLICATION * Plan of Care - Kun-Kerry Peace RN - 11/25/2024 9:53 PM CST Goals: Clinical Goals for the Shift: VS, NVS, PVS checks; safety precautions; pain control; site care and monitoring; comfort measures [employer] Patient Centered Goal for Treatment: to get stronger so that I can go home Summary: Problem: Medication Goal: Satisfaction with pain management medication regimen will improve Outcome: Progressing Problem: Sensory Goal: Ability to identify factors that increase pain levels will improve while working to decrease the patient's pain levels Outcome: Progressing Problem: Coping Goal: Ability to cope will improve Outcome: Progressing Problem: Health Behavior Goal: Identification of resources available to assist in meeting health care needs will improve Outcome: Progressing Problem: Discharge Planning Goal: Understanding discharge needs will improve Outcome: Progressing Problem: Fall Risk Goal: Ability to state ways to decrease the risk of falls will improve Outcome: Progressing Goal: Will remain free from falls Outcome: Progressing Goal: Will remain free from injury from falls Outcome: Progressing Problem: Skin Integrity Impairment Risk Goal: Mobility will improve Outcome: Progressing Goal: Understanding of ways to prevent future skin breakdown will improve Outcome: Progressing Goal: Nutritional status will improve Outcome: Progressing Goal: Risk for impaired skin integrity will decrease Outcome: Progressing Problem: Neurosensory Goal: Achieves maximal functionality and self care Outcome: Progressing Problem: Respiratory Goal: Achieves optimal ventilation and oxygenation Outcome: Progressing Problem: Cardiovascular Goal: Maintains optimal cardiac output and hemodynamic stability Outcome: Progressing GER WEB APPLICATION * Plan of Care - Dawn Smith RN - 11/25/2024 10:59 AM MANAGER WEB APPLICATION Problem: Lack of Knowledge Goal: Ability to develop a pain control plan will improve Outcome: Progressing Problem: Medication Goal: Satisfaction with pain management medication regimen will improve Outcome: Progressing Problem: Sensory Goal: Ability to identify factors that increase pain levels will improve while working to decrease the patient's pain levels Outcome: Progressing Problem: Coping Goal: Ability to cope will improve Outcome: Progressing Problem: Health Behavior Goal: Identification of resources available to assist in meeting health care needs will improve Outcome: Progressing Problem: Discharge Planning Goal: Understanding discharge needs will improve Outcome: Progressing Problem: Fall Risk Goal: Ability to state ways to decrease the risk of falls will improve Outcome: Progressing Goal: Will remain free from falls Outcome: Progressing Goal: Will remain free from injury from falls Outcome: Progressing Problem: Neurosensory Goal: Achieves maximal functionality and self care Outcome: Progressing Problem: Respiratory Goal: Achieves optimal ventilation and oxygenation Outcome: Progressing Problem: Cardiovascular Goal: Maintains optimal cardiac output and hemodynamic stability Outcome: Progressing Problem: Skin/Tissue Integrity Goal: Incisions, wounds, or drain sites healing without S/S of infection Outcome: Progressing Problem: Musculoskeletal Goal: Return mobility to safest level of function Outcome: Progressing Problem: Gastrointestinal Goal: Minimal or absence of nausea and vomiting Outcome: Progressing Problem: Genitourinary Goal: Absence of urinary retention Outcome: Progressing Problem: Infection Goal: Absence of infection during hospitalization Outcome: Progressing Problem: Metabolic/Fluid and Electrolytes Goal: Electrolytes maintained within normal limits Outcome: Progressing Problem: Hematologic Goal: Maintains hematologic stability Outcome: Progressing Problem: Lack of Knowledge Goal: Ability to describe self care measures that may prevent or decrease complications related to Type 1 Diabetes will improve Outcome: Progressing Goal: Ability to describe self care measures that may prevent or decrease complications related to Type 2 Diabetes will improve Outcome: Progressing Problem: Health Nutrition Goal: Nutritional intake and knowledge related to Diabetes will improve Outcome: Progressing Problem: Skin Integrity Impairment Risk Goal: Mobility will improve Outcome: Progressing Goal: Understanding of ways to prevent future skin breakdown will improve Outcome: Progressing Goal: Nutritional status will improve Outcome: Progressing Goal: Risk for impaired skin integrity will decrease Outcome: Progressing Goals: Clinical Goals for the Shift: VS, NVS, PVS checks; safety precautions; pain control; site care and monitoring; comfort measures [employer] Patient Centered Goal for Treatment: to get stronger so that I can go home Summary: safety and comfort, NV checks, blood glucose management, monitor VS, pain management GER WEB APPLICATION * Plan of Care - Chris Evans RRT - 11/25/2024 5:01 AM CST NPPV - PATIENT WORE Situation: The patient was ordered on NPPV for nocturnal use due to a history of COPD. Patient was placed on their home NPPV machine. Settings: NPPV Mode: CPAP EPAP Pressure: 8 cm H20. Tolerance: The patient tolerated the NPPV without issue. Plan: Proceed as ordered and continue to monitor the patient. GER WEB APPLICATION * Plan of Care - Kun-Kerry Peace RN - 11/24/2024 10:22 PM MANAGER WEB APPLICATION Goals: Clinical Goals for the Shift: VS, NVS, PVS checks; safety precautions; pain control; site care and monitoring; comfort measures Shelter Patient Centered Goal for Treatment: to get stronger so that I can go home Summary: Problem: Sensory Goal: Ability to identify factors that increase pain levels will improve while working to decrease the patient's pain levels Outcome: Progressing Problem: Coping Goal: Ability to cope will improve Outcome: Progressing Problem: Health Behavior Goal: Identification of resources available to assist in meeting health care needs will improve Outcome: Progressing Problem: Discharge Planning Goal: Understanding discharge needs will improve Outcome: Progressing Problem: Fall Risk Goal: Ability to state ways to decrease the risk of falls will improve Outcome: Progressing Goal: Will remain free from falls Outcome: Progressing Goal: Will remain free from injury from falls Outcome: Progressing Problem: Skin Integrity Impairment Risk Goal: Mobility will improve Outcome: Progressing Goal: Understanding of ways to prevent future skin breakdown will improve Outcome: Progressing Goal: Nutritional status will improve Outcome: Progressing Goal: Risk for impaired skin integrity will decrease Outcome: Progressing Problem: Respiratory Goal: Achieves optimal ventilation and oxygenation Outcome: Progressing Problem: Skin/Tissue Integrity Goal: Incisions, wounds, or drain sites healing without S/S of infection Outcome: Progressing GER WEB APPLICATION * Plan of Jessica Chauhan RN - 11/24/2024 4:15 PM CST Problem: Lack of Knowledge Goal: Ability to develop a pain control plan will improve Outcome: Progressing Problem: Medication Goal: Satisfaction with pain management medication regimen will improve Outcome: Progressing Problem: Sensory Goal: Ability to identify factors that increase pain levels will improve while working to decrease the patient's pain levels Outcome: Progressing Problem: Coping Goal: Ability to cope will improve Outcome: Progressing Problem: Health Behavior Goal: Identification of resources available to assist in meeting health care needs will improve Outcome: Progressing Problem: Discharge Planning Goal: Understanding discharge needs will improve Outcome: Progressing Problem: Fall Risk Goal: Ability to state ways to decrease the risk of falls will improve Outcome: Progressing Goal: Will remain free from falls Outcome: Progressing Goal: Will remain free from injury from falls Outcome: Progressing Problem: Neurosensory Goal: Achieves maximal functionality and self care Outcome: Progressing Problem: Respiratory Goal: Achieves optimal ventilation and oxygenation Outcome: Progressing Problem: Cardiovascular Goal: Maintains optimal cardiac output and hemodynamic stability Outcome: Progressing Problem: Skin/Tissue Integrity Goal: Incisions, wounds, or drain sites healing without S/S of infection Outcome: Progressing Problem: Musculoskeletal Goal: Return mobility to safest level of function Outcome: Progressing Problem: Gastrointestinal Goal: Minimal or absence of nausea and vomiting Outcome: Progressing Problem: Genitourinary Goal: Absence of urinary retention Outcome: Progressing Problem: Infection Goal: Absence of infection during hospitalization Outcome: Progressing Problem: Metabolic/Fluid and Electrolytes Goal: Electrolytes maintained within normal limits Outcome: Progressing Problem: Hematologic Goal: Maintains hematologic stability Outcome: Progressing Problem: Lack of Knowledge Goal: Ability to describe self care measures that may prevent or decrease complications related to Type 1 Diabetes will improve Outcome: Progressing Goal: Ability to describe self care measures that may prevent or decrease complications related to Type 2 Diabetes will improve Outcome: Progressing Problem: Health Nutrition Goal: Nutritional intake and knowledge related to Diabetes will improve Outcome: Progressing Problem: Skin Integrity Impairment Risk Goal: Mobility will improve Outcome: Progressing Goal: Understanding of ways to prevent future skin breakdown will improve Outcome: Progressing Goal: Nutritional status will improve Outcome: Progressing Goal: Risk for impaired skin integrity will decrease Outcome: Progressing GER WEB APPLICATION * Plan of Care - Nathaly Giron RN - 11/24/2024 10:48 AM CST 11/24/24 1047 Discharge Planning Anticipated discharge level of care intermediate facility (short term care) Does the patient need discharge transport arranged? Yes Type of Transportation Ambulance/EMS Has discharge transport been arranged? No Discharge Transportation Communication NA Post Acute Care Plan Home Care Services N/A OP Services N/A DME N/A Post Acute Care Facility N/A Referral Status Started CM Progression of Care Update Per Medical Chart/Rounds/IDR: medically ready for discharge waiting on re auth after denial by [facility] ADD: 11/25 Discharge Barriers: waiting on auth after denial. Sent 11/23 at 1600. Pt informed and verbalized understanding. Education Needs Identified (plan):na F/U Appointments: na Patient's Identified Problem/Goal Problem:?Ensure acute medical needs are met and that patient has a safe discharge plan. Goal:?Secure a discharge plan that patient/family are agreeable with?and ensure patient has continuum of care. Patient and/or family are agreeable with plan. visual merchandising manager will continue to follow and assist with discharge planning as needed. If any further discharge needs arise, please contact the covering protective services case worker. GER WEB APPLICATION * Plan of Care - Chris Evans RRT - 11/24/2024 4:56 AM CST Patient wore NPPV over night, no further concerns at this time. GER WEB APPLICATION * Plan of Care - Kingston Fulton RN - 11/23/2024 10:47 PM CST Problem: Lack of Knowledge Goal: Ability to develop a pain control plan will improve Outcome: Progressing Problem: Medication Goal: Satisfaction with pain management medication regimen will improve Outcome: Progressing Problem: Sensory Goal: Ability to identify factors that increase pain levels will improve while working to decrease the patient's pain levels Outcome: Progressing Problem: Coping Goal: Ability to cope will improve Outcome: Progressing Problem: Health Behavior Goal: Identification of resources available to assist in meeting health care needs will improve Outcome: Progressing Problem: Discharge Planning Goal: Understanding discharge needs will improve Outcome: Progressing Problem: Fall Risk Goal: Ability to state ways to decrease the risk of falls will improve Outcome: Progressing Goal: Will remain free from falls Outcome: Progressing Goal: Will remain free from injury from falls Outcome: Progressing Problem: Neurosensory Goal: Achieves maximal functionality and self care Outcome: Progressing Problem: Respiratory Goal: Achieves optimal ventilation and oxygenation Outcome: Progressing Problem: Cardiovascular Goal: Maintains optimal cardiac output and hemodynamic stability Outcome: Progressing Problem: Skin/Tissue Integrity Goal: Incisions, wounds, or drain sites healing without S/S of infection Outcome: Progressing Problem: Musculoskeletal Goal: Return mobility to safest level of function Outcome: Progressing Problem: Gastrointestinal Goal: Minimal or absence of nausea and vomiting Outcome: Progressing Problem: Genitourinary Goal: Absence of urinary retention Outcome: Progressing Problem: Infection Goal: Absence of infection during hospitalization Outcome: Progressing Problem: Metabolic/Fluid and Electrolytes Goal: Electrolytes maintained within normal limits Outcome: Progressing Problem: Hematologic Goal: Maintains hematologic stability Outcome: Progressing Problem: Lack of Knowledge Goal: Ability to describe self care measures that may prevent or decrease complications related to Type 1 Diabetes will improve Outcome: Progressing Goal: Ability to describe self care measures that may prevent or decrease complications related to Type 2 Diabetes will improve Outcome: Progressing Problem: Health Nutrition Goal: Nutritional intake and knowledge related to Diabetes will improve Outcome: Progressing Problem: Skin Integrity Impairment Risk Goal: Mobility will improve Outcome: Progressing Goal: Understanding of ways to prevent future skin breakdown will improve Outcome: Progressing Goal: Nutritional status will improve Outcome: Progressing Goal: Risk for impaired skin integrity will decrease Outcome: Progressing Goals: Clinical Goals for the Shift: VS, NVS, PVS checks; safety precautions; pain control; site care and monitoring; comfort measures [employer] Patient Centered Goal for Treatment: to get stronger so that I can go home Summary: A&Ox4; resting comfortably on bed; pain well controlled with current pain regimen; needs attended to GER WEB APPLICATION * Plan of Care - Jessica Crump RN - 11/23/2024 5:02 PM CST Goals: Clinical Goals for the Shift: VS, NVS, PVS checks; safety precautions; pain control; site care and monitoring; comfort measures Shelter Patient Centered Goal for Treatment: to get stronger so that I can go home Problem: Lack of Knowledge Goal: Ability to develop a pain control plan will improve Outcome: Progressing Problem: Medication Goal: Satisfaction with pain management medication regimen will improve Outcome: Progressing Problem: Sensory Goal: Ability to identify factors that increase pain levels will improve while working to decrease the patient's pain levels Outcome: Progressing Problem: Coping Goal: Ability to cope will improve Outcome: Progressing Problem: Health Behavior Goal: Identification of resources available to assist in meeting health care needs will improve Outcome: Progressing Problem: Discharge Planning Goal: Understanding discharge needs will improve Outcome: Progressing Problem: Fall Risk Goal: Ability to state ways to decrease the risk of falls will improve Outcome: Progressing Goal: Will remain free from falls Outcome: Progressing Goal: Will remain free from injury from falls Outcome: Progressing Problem: Neurosensory Goal: Achieves maximal functionality and self care Outcome: Progressing Problem: Respiratory Goal: Achieves optimal ventilation and oxygenation Outcome: Progressing Problem: Cardiovascular Goal: Maintains optimal cardiac output and hemodynamic stability Outcome: Progressing Problem: Skin/Tissue Integrity Goal: Incisions, wounds, or drain sites healing without S/S of infection Outcome: Progressing Problem: Musculoskeletal Goal: Return mobility to safest level of function Outcome: Progressing Problem: Gastrointestinal Goal: Minimal or absence of nausea and vomiting Outcome: Progressing Problem: Genitourinary Goal: Absence of urinary retention Outcome: Progressing Problem: Infection Goal: Absence of infection during hospitalization Outcome: Progressing Problem: Metabolic/Fluid and Electrolytes Goal: Electrolytes maintained within normal limits Outcome: Progressing Problem: Hematologic Goal: Maintains hematologic stability Outcome: Progressing Problem: Lack of Knowledge Goal: Ability to describe self care measures that may prevent or decrease complications related to Type 1 Diabetes will improve Outcome: Progressing Goal: Ability to describe self care measures that may prevent or decrease complications related to Type 2 Diabetes will improve Outcome: Progressing Problem: Health Nutrition Goal: Nutritional intake and knowledge related to Diabetes will improve Outcome: Progressing GER WEB APPLICATION * Plan of Care - Nathaly Giron RN - 11/23/2024 12:42 PM CST 11/23/24 1241 Discharge Planning Anticipated discharge level of care intermediate facility (short term care) Does the patient need discharge transport arranged? Yes Type of Transportation Ambulance/EMS Has discharge transport been arranged? No Discharge Transportation Communication NA Post Acute Care Plan Home Care Services N/A OP Services N/A DME N/A Post Acute Care Facility N/A CM Progression of Care Update Per Medical Chart/Rounds/IDR: medically ready for discharge ADD: 11/23 Discharge Barriers: was waiting on pt for auth placement. Eval complete and auth started today Education Needs Identified (plan):na F/U Appointments: na Patient's Identified Problem/Goal Problem:?Ensure acute medical needs are met and that patient has a safe discharge plan. Goal:?Secure a discharge plan that patient/family are agreeable with?and ensure patient has continuum of care. Patient and/or family are agreeable with plan. visual merchandising manager will continue to follow and assist with discharge planning as needed. If any further discharge needs arise, please contact the covering protective services case worker. GER WEB APPLICATION * Plan of Care - Sandhya Castanon RRT - 11/23/2024 3:44 AM CST NPPV - PATIENT WORE Situation: The patient was ordered on NPPV for nocturnal use due to a history of Obstructive Sleep Apnea (BI). Patient was placed on their home NPPV machine. Settings: NPPV Mode: CPAP EPAP Pressure: 8 cm H20. Tolerance: The patient tolerated the NPPV without issue. Plan: Proceed as ordered and continue to monitor the patient. GER WEB APPLICATION * Plan of Care - Kingston Fulton RN - 11/22/2024 10:57 PM CST Problem: Lack of Knowledge Goal: Ability to develop a pain control plan will improve Outcome: Progressing Problem: Medication Goal: Satisfaction with pain management medication regimen will improve Outcome: Progressing Problem: Sensory Goal: Ability to identify factors that increase pain levels will improve while working to decrease the patient's pain levels Outcome: Progressing Problem: Coping Goal: Ability to cope will improve Outcome: Progressing Problem: Health Behavior Goal: Identification of resources available to assist in meeting health care needs will improve Outcome: Progressing Problem: Discharge Planning Goal: Understanding discharge needs will improve Outcome: Progressing Problem: Fall Risk Goal: Ability to state ways to decrease the risk of falls will improve Outcome: Progressing Goal: Will remain free from falls Outcome: Progressing Goal: Will remain free from injury from falls Outcome: Progressing Problem: Neurosensory Goal: Achieves maximal functionality and self care Outcome: Progressing Problem: Respiratory Goal: Achieves optimal ventilation and oxygenation Outcome: Progressing Problem: Cardiovascular Goal: Maintains optimal cardiac output and hemodynamic stability Outcome: Progressing Problem: Skin/Tissue Integrity Goal: Incisions, wounds, or drain sites healing without S/S of infection Outcome: Progressing Problem: Musculoskeletal Goal: Return mobility to safest level of function Outcome: Progressing Problem: Gastrointestinal Goal: Minimal or absence of nausea and vomiting Outcome: Progressing Problem: Genitourinary Goal: Absence of urinary retention Outcome: Progressing Problem: Infection Goal: Absence of infection during hospitalization Outcome: Progressing Problem: Metabolic/Fluid and Electrolytes Goal: Electrolytes maintained within normal limits Outcome: Progressing Problem: Hematologic Goal: Maintains hematologic stability Outcome: Progressing Problem: Lack of Knowledge Goal: Ability to describe self care measures that may prevent or decrease complications related to Type 1 Diabetes will improve Outcome: Progressing Goal: Ability to describe self care measures that may prevent or decrease complications related to Type 2 Diabetes will improve Outcome: Progressing Problem: Health Nutrition Goal: Nutritional intake and knowledge related to Diabetes will improve Outcome: Progressing Goals: Clinical Goals for the Shift: VS, NVS, PVS checks; safety precautions; pain control; site care and monitoring; comfort measures [employer] Manager Patient Centered Goal for Treatment: to get stronger so that I can go home Summary: A&Ox4; resting comfortably on bed; pain well controlled with current pain regimen; needs attended to GER WEB APPLICATION * Initial Assessments - Manisha Cole LCSW - 11/22/2024 3:10 PM CST Social Work Assessment Clinical Dx: Acute on chronic systolic congestive heart failure (CMS/HCC) (HCC) Past Medical History: Date of last inpatient admission: Previous admit date: 11/08/2024 Number of inpatient admissions in past year: 8 Reason for Current Hospitalization (Pt/Caregiver Stated): right carotid replacement (11/22/24 1504) Patient Information: Information Obtained From: Patient Marital Status: Does Pt have Legal Guardian, Surrogate Decision Maker or Healthcare Agent? : Yes-DPOA DPOA Name/Phone: Ana Chang (daughter/[phone] home or [phone] cell) Employment Status: Disabled Payor Source: Medicare, Commercial Race: White/ Ethnicity: Non- Sexual Orientation : Not assessed Gender Identity: Female Service : None (11/22/24 150) Current Situation: Current Situation Living Arrangements: Spouse/significant other Type of Residence: Private residence Income: SSD/SSI Income Comment: Patient's Education Level : College Courses How do you Pay for Medication: Insurance Current Transportation: Family/friends What do you do with your Free Time: Read, color, puzzle books (11/22/24 150) Legal History: Legal History Legal Information : No legal issues (11/22/24 150) Support Systems and Spirituality: Support Systems and Spirituality Support System: Spouse, Children Children Name/Contact Information: Ana Chang (daughter/[phone] home or [phone] cell)German (son/[phone]) Do you have a Oriental Orthodox Preference or Affiliation?: Yes Preference/Affiliation : Restorationist Are there any Oriental Orthodox Practices that are important to maintain while admitted?: No Do you have Cultural Factors that are important to you?: No (11/22/24 150) Strengths, Assets, Liabilities and Stressors: Strengths, Assets, Liabilities, and Stressors Strengths (Must Choose Two): Financial stability, Interpersonal relationships and supports,i.e., family, friends, peers, Attempting to realize one's potential, Vocational interests, i.e., hobbies, Setting and pursuing goals, Access to housing/residential stability, Exercising self-direction, Motivation and readiness for change, Assessment of patient optimism that change can occur, Managing surrounding demands and opportunities, Cultural/spiritual/moravian and community involvement Patient Assets: Access to services, Disability income, Home, Insured, Use of Supports, Transportation, Supportive family Does Pt have access to Employee Assistance Program: No Patient Barriers : Poor physical health Current Stressors: Chronic illness (11/22/24 1504) SDOH Transportation Needs: No Transportation Needs (11/22/2024) PRAPARE - Transportation Lack of Transportation (Medical): No Lack of Transportation (Non-Medical): No Financial Resource Strain: Low Risk (11/22/2024) Overall Financial Resource Strain (CARDIA) Difficulty of Paying Living Expenses: Not hard at all Housing Stability: Low Risk (11/22/2024) Housing Stability Vital Sign Unable to Pay for Housing in the Last Year: No Number of Times Moved in the Last Year: 0 Homeless in the Last Year: No Social Connections: Moderately Integrated (11/22/2024) Social Connection and Isolation Panel [NHANES] Frequency of Communication with Friends and Family: More than three times a week Frequency of Social Gatherings with Friends and Family: More than three times a week Attends Oriental Orthodox Services: More than 4 times per year Active Member of Clubs or Organizations: No Attends Club or Organization Meetings: Never Marital Status: Food Insecurity: No Food Insecurity (11/22/2024) Hunger Vital Sign Worried About Running Out of Food in the Last Year: Never true Ran Out of Food in the Last Year: Never true Tobacco Use: Medium Risk (11/05/2024) Patient History Smoking Tobacco Use: Former Smokeless Tobacco Use: Never Passive Exposure: Not on file Alcohol Use: Not At Risk (08/23/2024) AUDIT-C Frequency of Alcohol Consumption: Never Average Number of Drinks: Patient does not drink Frequency of Binge Drinking: Never PHQ Screening Over the last 2 weeks, how often have you been bothered by any of the following problems? Little Interest or Pleasure in Doing Things: Not at all Feeling Down, Depressed, or Hopeless: Several days PHQ-2 Total Score (If total score is 3 or more points, staff should administer the PHQ-9): 1 Over the past 2 weeks, how often have you been bothered by any of the following problems? Little Interest or Pleasure in Doing Things: Not at all Feeling Down, Depressed, or Hopeless: Several days PHQ-2 Total Score (If total score is 3 or more points, staff should administer the PHQ-9): 1 E-Cigarette/Vaping Questions Responses E-cigarette/Vaping Use Never User Substance Abuse, Mental Health, and Trauma History: Chemical Dependency, Mental Health & Trauma History Chemical Dependency: No concerns noted Mental Health: Dx of anxiety disorder and major depressive disorder. No concerns noted (11/22/24 5769) Risk to Self and Others: Risk to Self and Others Violence risk to self in past 6 months? : No Self Harm/Suicidal Ideation Plan: No Previous Self Harm/Suicidal Attempts: No Violence risk to others in past 6 months? : No Any lifetime risk of violence to others? : No Current Plans to Harm Another: No (11/22/24 3803) Impressions and Recommendations: Ms. De León is a 59 year old female who admitted for the OR for Right carotid barostim placement. Social work assessment indicated for high risk for readmission, 30 day readmit and 8 inpatient admissions in the past year. Patient was last admitted from 11/08/24-11/17/24 at [facility] for chest pain and discharged home on 11/17 with plans to admit to [facility] the following day for the OR. Social work met with patient at bedside to discuss housing, utilities, food, transportation and social support. Patient lives with her spouse at [address] [place] [address].She voiced no financial concerns with housing, utilities or food. Her plans are to discharge to rehab and then to her daughter's home with her watermelon harvesting supervisor goal to return home with her spouse. These arrangement were made when she was at [facility]. CM following for discharge planning needs. No SW needs at this time. Patient has DPOA on file appointing Ana Chang (daughter/ home or [phone] cell) layne her healthcare decision maker if she becomes unable. Predictive Model Details 36% (High Risk) Factor Value Calculated 11/22/2024 12:04 28% Number of active inpatient medication orders 61 Risk of Unplanned Readmission Model 23% Number of hospitalizations in last year 7 6% ECG/EKG order present in last 6 months 5% Encounter of ten days or longer in last year present 5% Diagnosis of electrolyte disorder present 5% Imaging order present in last 6 months 4% Latest hemoglobin low (9.2 g/dL) 4% Charlson Comorbidity Index 5 4%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 APPLICATION GER WEB APPLICATION GER WEB APPLICATION GER WEB APPLICATION * Assessment & Plan Note - Ines Purdy NP - 11/18/2024 10:32 AM CSTAssociated Problem(s): Type 2 diabetes mellitus with hyperlipidemia (HCC) On Metformin, Forteo, and Lantus at home. Patient reports very labile BG at home. Most recent A1c was 7.5. BG difficult to control at OSH and patient non- compliant with CC diet - Hold metformin while inpatient - Triturating basal/ bolus insulin - Carb consistent diet when eating - Endocrine DM consulted for better blood glucose control. GER WEB APPLICATION GER WEB APPLICATION GER WEB APPLICATION GER WEB APPLICATION GER WEB APPLICATION GER WEB APPLICATION GER WEB APPLICATION GER WEB APPLICATION GER WEB APPLICATION GER WEB APPLICATION * Assessment & Plan Note - Ines Purdy NP - 11/18/2024 10:01 AM CSTAssociated Problem(s): Chronic combined systolic and diastolic congestive heart failure (CMS/HCC) (HCC) EF 15-20%. Has ICD. Patient recently admitted [facility] from 11/08-11/17 for chest pain and noted to be in CHF exacerbation. ACS was ruled out and she was treated with her home CHF medications, lasix endedup being increased to 40mg BID with improvement [...] increase lasix to BID here as well GER WEB APPLICATION GER WEB APPLICATION GER WEB APPLICATION GER WEB APPLICATION GER WEB APPLICATION GER WEB APPLICATION GER WEB APPLICATION GER WEB APPLICATION GER WEB APPLICATION GER WEB APPLICATION GER WEB APPLICATION * Brief Op Note - Ottoniel Phoenix MD - 11/18/2024 8:33 AM CST Operative Progress Note Surgical Team: Surgeons and Role: * Hesham Madsen MD - Primary * Ottoniel Phoenix MD - Fellow Anesthesiologist: Elba Medina MD PhD [employer] CD[employer] TRUCK DRIVER: Dwight Quintero CRNA Joinery Patternmaker: Deyanira Gonzáles RN; Jacquelin Zapata RN Scrub: Karen Bryant RN AIR INTELLIGENCE OFFICER: Rody Richard NP Orientee Scrub: Ryanne Brennan ST DATE OF SURGERY : 11/18/2024 Preoperative Diagnosis: Pre-op Diagnosis * 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) [I50.42] Postoperative Diagnosis: Post-op Diagnosis * 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) [I50.42] Procedure(s): Procedure(s) (LRB): RIGHT BAROSTIM PLACEMENT (Right) Operative Findings: R carotid barostim placement Estimated Blood Loss: 10 mL Specimens: No specimen collected in procedure Implants: Implant Name Type Inv. Item Serial No. Refining Still Operator Lot No. LRB No. Used Action [employer] System Generator Neurostimulator Deep Brain Stim Permanent Lead Barostim [id number] - [id number] - [id number] [employer] System Generator Neurostimulator Deep Brain Stim Permanent Lead Barostim [id number] [employer] Right 1 Implanted [employer] Barostim [place] 40cm 1036 [id number] - [id number] - [id number] Lead [employer] Barostim [place] 40cm 1036 [id number] [employer] [id number] Right 1 Implanted Blood/Blood Products Transfused: 0 mls Complications: None Condition on Discharge from the operating room was stable Ottoniel Phoenix MD Date: 11/18/2024 Time: 9:41 AM TEACHING ATTESTATION : I was present and directly participated in the entire procedure (including opening and closing). Cosigned by Hesham Madsen MD at 11/18/2024 1:17 PM MANAGER WEB APPLICATION GER WEB APPLICATION GER WEB APPLICATION * Perioperative Nursing Note - Cate Fry RN - 11/18/2024 6:[address] Medina notified of UTO IV. GER WEB APPLICATION * Op Note - Hesham Madsen MD - 11/18/2024 12:00 AM CST PREOPERATIVE DIAGNOSIS Congestive heart failure. POSTOPERATIVE DIAGNOSIS Congestive heart failure. ATTENDING PHYSICIAN Hesham Madsen MD. RESIDENT PHYSICIAN Cooper Phoenix MD. ANESTHESIA TYPE General. PROCEDURES PERFORMED Implantation of a [employer] Barostim NEO2 device with implantation of the device over right carotid bifurcation and placement of generator in the right infraclavicular chest pocket. INDICATIONS FOR PROCEDURE Blossom De León is a 58-year-old female with congestive heart failure who was deemed a suitable candidate for Barostim device placement by Cardiology. We discussed risks, benefits, potential options and complications in detail, and she wished to proceed with surgical intervention. OPERATIVE FINDINGS The patient was found to have a relatively disease-free right carotid bifurcation. She had good capture at position A with the Barostim device. Therefore, the Barostim electrode was sutured to the position A of right carotid bifurcation at the medial aspect of proximal right internal carotid arteryat the level of carotid bifurcation with good response intraoperatively. The lead was then tunneledto the right chest and a generator pocket was created in the infraclavicular segment in the right chest. IMPLANT NAME CVRx Barostim NEO2, serial #[id number], model 2104 for the generator. The lead serial number for the device was [id number], model 1036. Frequency 697 ohms. PROCEDURE DETAILS The patient was brought to the operating room and underwent general anesthesia with endotracheal intubation. She was prepped and draped in a standard sterile fashion and received preoperative antibiotics. Using ultrasound guidance, we marked out the right carotid bifurcation and made a transverse incision at the site. Subplatysmal planes were created in a standard fashion, and sternocleidomastoidwas retracted laterally. Crossing facial veins were divided between 2-0 silk ties and carotid bifurcation was exposed with minimal dissection. Right infraclavicular pocket was made in a standard fashion to fit the device generator size. A Burlisher was used to create a subcutaneous tunnel connecting these 2 incisions, and the lead was tunneled subcutaneously between the 2 incisions. We checked for response at the carotid bifurcation and had good response at site A. We sutured the electrode for the device to the right carotid bifurcation at position A along the anteromedial aspect of the proximal right internal carotid artery at the level of the carotid bifurcation and secured it with 6 interrupted 5-0 Prolene stitches to the adventitial layer. We verified good capture again and secured the lead to the common carotid artery with a couple of interrupted 5-0 Prolene stitches after leaving enough laxity for neck movement. The generator was secured to the pectoral fascia with interrupted Ethibond sutures and, after achieving hemostasis, the subcutaneous tissue was approximated in multiple layers using 2-0 and 3-0 Vicryl sutures with 4-0 Monocryl on top. At the level of the neck, similarly, the platysma was approximated with running 3-0 Vicryl sutures with 4-0 Monocryl at the level of skin and Dermabond on top. She was then woken up from anesthesia and moved to the PACU in hemodynamically stable condition. EBL Minimal. SPECIMENS None. DRAINS None. BLOOD PRODUCTS GIVEN None. IMPLANTS AND GRAFTS See above. COMPLICATIONS None. DISPOSITION To PACU in hemodynamically stable condition. TEACHING ATTESTATION I was present for the entire case. Job ID/Internal Job ID: [id number] GER WEB APPLICATION documented in this encounter Plan of Treatment Pending Results Name Type Priority Associated Diagnoses Date /Time Hemoglobin A1c Lab Routine 11/19/2024 8:52 AM MANAGER WEB APPLICATION Protime-INR Lab STAT 11/20/2024 8: 28 AM MANAGER WEB APPLICATION Basic metabolic panel Lab Timed 07/2025 7:04 PM MANAGER WEB APPLICATION aPTT Lab Routine 11/22/2024 7:0 4 PM MANAGER WEB APPLICATION Scheduled Orders Name Type Priority Associated Diagnoses Order Schedule Basic metabolic panel Lab Routine AM draw - collec t with morning lab draw until discontinued starting 11/19/2024, 11 completed CBC with auto differential Lab Routine AM draw - collec t with morning lab draw until discontinued starting 11/19/2024, 11 completed aPTT Lab STAT Lab orders - a s needed, STAT collection until discontinued starting 11/19/2024, 7 completed Hemoglobin A1c Lab Routine Once for 1 Occurrences starting 11/19/2024 until 11/19/2024 Protime-INR Lab Routine AM draw - col lect with morning lab draw until discontinued starting 11/20/2024, 10 completed Protime-INR Lab STAT Once for 1 Occurrences starting 11/20/2024 until 11/20/2024 NPPV (Noninvasive positive-pressure ventilation) -NPPV Settings: Per Protocol; Home Unit: Yes Respiratory Care Routine 2100 until discontinued starting 2024 Basic metabolic panel Lab Timed Once for 1 Occurrences starting 11/22/2024 until 11/22/2024 aPTT Lab Routine Once for 1 Occurrences starting 11/22/2024 until 11/22/2024 POCT glucose Point of Care Testing-Docked Device Routine As needed until discontinued starting 11/22/2024 POCT glucose Point of Care Testing-Docked Device Routine As needed until discontinued starting 11/22/2024 POCT glucose Point of Care Testing-Docked Device Routine 0700, 1100, 1700, 2100, 0200 until discontinued starting 11/25/2024, 25 completed Protime-INR Lab Routine Atrial thrombus Expected: 12/02/2024, Expires: 11/30/2025 documented as of this encounter Goals Goal [...] take, when to call CM or provider. [facility] Chronic Pain Care Plan Chronic Care [...] on stairs Contact your local community or [facility] for information on exercise, fall prevention programs, or options for improving home safety. documented as of this encounter Procedures Procedure Name Priority Date/Time Associated Diagnosis Comments POCT GLUCOSE DEVICE Routine 11/30/2024 1 1:42 AM MANAGER WEB APPLICATION POCT GLUCOSE DEVICE Routine 11/30/2024 7 :37 AM MANAGER WEB APPLICATION POCT GLUCOSE DEVICE Routine 11/30/2024 2 :12 AM MANAGER WEB APPLICATION EGFR STAT 11/30/2024 12:02 AM MANAGER WEB APPLICATION BASIC METABOLIC PANEL STAT 11/30/2024 12:02 AM MANAGER WEB APPLICATION POCT GLUCOSE DEVICE Routine 11/29/2024 9 :58 PM MANAGER WEB APPLICATION EGFR Routine 11/29/2024 8:56 PM MANAGER WEB APPLICATION DIFFERENTIAL AUTO Routine 11/29/2024 8:5 6 PM MANAGER WEB APPLICATION CRITICAL RESULT CALLBACK CHEMISTRY Routine 11/29/2024 8:56 PM MANAGER WEB APPLICATION CBC WITH AUTO DIFFERENTIAL Routine 11/29/2024 8:56 PM MANAGER WEB APPLICATION PROTIME-INR Routine 11/29/2024 8:56 PM MANAGER WEB APPLICATION BASIC METABOLIC PANEL Routine 11/29/2024 8:56 PM MANAGER WEB APPLICATION POCT GLUCOSE DEVICE Routine 11/29/2024 7 :29 PM MANAGER WEB APPLICATION POCT GLUCOSE DEVICE Routine 11/29/2024 5 :12 PM MANAGER WEB APPLICATION POCT GLUCOSE DEVICE Routine 11/29/2024 1 1:17 AM MANAGER WEB APPLICATION POCT GLUCOSE DEVICE Routine 11/29/2024 7 :42 AM MANAGER WEB APPLICATION POCT GLUCOSE DEVICE Routine 11/29/2024 2 :07 AM MANAGER WEB APPLICATION POCT GLUCOSE DEVICE Routine 11/29/2024 1 2:02 AM MANAGER WEB APPLICATION EGFR Routine 11/28/2024 9:54 PM MANAGER WEB APPLICATION DIFFERENTIAL AUTO Routine 11/28/2024 9:5 4 PM MANAGER WEB APPLICATION CBC WITH AUTO DIFFERENTIAL Routine 11/28/2024 9:54 PM MANAGER WEB APPLICATION PROTIME-INR Routine 11/28/2024 9:54 PM MANAGER WEB APPLICATION BASIC METABOLIC PANEL Routine 11/28/2024 9:54 PM MANAGER WEB APPLICATION POCT GLUCOSE DEVICE Routine 11/28/2024 7 :26 PM MANAGER WEB APPLICATION POCT GLUCOSE DEVICE Routine 11/28/2024 6 :16 PM MANAGER WEB APPLICATION POCT GLUCOSE DEVICE Routine 11/28/2024 5 :01 PM MANAGER WEB APPLICATION POCT GLUCOSE DEVICE Routine 11/28/2024 1 1:19 AM MANAGER WEB APPLICATION POCT GLUCOSE DEVICE Routine 11/28/2024 7 :20 AM MANAGER WEB APPLICATION POCT GLUCOSE DEVICE Routine 11/28/2024 2 :02 AM MANAGER WEB APPLICATION POCT GLUCOSE DEVICE Routine 11/27/2024 1 0:58 PM MANAGER WEB APPLICATION EGFR Routine 11/27/2024 9:47 PM MANAGER WEB APPLICATION DIFFERENTIAL AUTO Routine 11/27/2024 9:4 7 PM MANAGER WEB APPLICATION CBC WITH AUTO DIFFERENTIAL Routine 11/27/2024 9:47 PM MANAGER WEB APPLICATION PROTIME-INR Routine 11/27/2024 9:47 PM MANAGER WEB APPLICATION BASIC METABOLIC PANEL Routine 11/27/2024 9:47 PM MANAGER WEB APPLICATION POCT GLUCOSE DEVICE Routine 11/27/2024 8 :31 PM MANAGER WEB APPLICATION POCT GLUCOSE DEVICE Routine 11/27/2024 4 :59 PM MANAGER WEB APPLICATION POCT GLUCOSE DEVICE Routine 11/27/2024 1 1:42 AM MANAGER WEB APPLICATION POCT GLUCOSE DEVICE Routine 11/27/2024 7 :21 AM MANAGER WEB APPLICATION POCT GLUCOSE DEVICE Routine 11/27/2024 4 :10 AM MANAGER WEB APPLICATION POCT GLUCOSE DEVICE Routine 11/26/2024 1 1:38 PM MANAGER WEB APPLICATION EGFR Routine 11/26/2024 9:00 PM MANAGER WEB APPLICATION DIFFERENTIAL AUTO Routine 11/26/2024 9:0 0 PM MANAGER WEB APPLICATION CBC WITH AUTO DIFFERENTIAL Routine 11/26/2024 9:00 PM MANAGER WEB APPLICATION PROTIME-INR Routine 11/26/2024 9:00 PM MANAGER WEB APPLICATION BASIC METABOLIC PANEL Routine 11/26/2024 9:00 PM MANAGER WEB APPLICATION POCT GLUCOSE DEVICE Routine 11/26/2024 8 :11 PM MANAGER WEB APPLICATION POCT GLUCOSE DEVICE Routine 11/26/2024 4 :58 PM MANAGER WEB APPLICATION POCT GLUCOSE DEVICE Routine 11/26/2024 1 1:50 AM MANAGER WEB APPLICATION POCT GLUCOSE DEVICE Routine 11/26/2024 9 :56 AM MANAGER WEB APPLICATION POCT GLUCOSE DEVICE Routine 11/26/2024 8 :08 AM MANAGER WEB APPLICATION POCT GLUCOSE DEVICE Routine 11/26/2024 4 :08 AM MANAGER WEB APPLICATION POCT GLUCOSE DEVICE Routine 11/26/2024 1 2:28 AM MANAGER WEB APPLICATION URINALYSIS AND REFLEX TO MICROSCOPIC AND CULTURE Routine 11/26/2024 12:16 AM MANAGER WEB APPLICATION URINALYSIS, MICROSCOPIC ONLY Routine 11/26/2024 12:16 AM MANAGER WEB APPLICATION EGFR Routine 11/26/2024 12:10 AM MANAGER WEB APPLICATION DIFFERENTIAL AUTO Routine 11/26/2024 12: 10 AM MANAGER WEB APPLICATION CBC WITH AUTO DIFFERENTIAL Routine 11/26/2024 12:10 AM MANAGER WEB APPLICATION PROTIME-INR Routine 11/26/2024 12:10 AM MANAGER WEB APPLICATION BASIC METABOLIC PANEL Routine 11/26/2024 12:10 AM MANAGER WEB APPLICATION POCT GLUCOSE DEVICE Routine 11/25/2024 1 0:40 PM MANAGER WEB APPLICATION POCT GLUCOSE DEVICE Routine 11/25/2024 9 :37 PM MANAGER WEB APPLICATION POCT GLUCOSE DEVICE Routine 11/25/2024 8 :11 PM MANAGER WEB APPLICATION POCT GLUCOSE DEVICE Routine 11/25/2024 5 :09 PM MANAGER WEB APPLICATION POCT GLUCOSE DEVICE Routine 11/25/2024 2 :32 PM MANAGER WEB APPLICATION POCT GLUCOSE DEVICE Routine 11/25/2024 1 1:40 AM MANAGER WEB APPLICATION XR CHEST 1 VIEW ED Urgent/IP Urgent 11/25/2024 9:35 AM MANAGER WEB APPLICATION POCT GLUCOSE DEVICE Routine 11/25/2024 7 :51 AM MANAGER WEB APPLICATION EGFR Routine 11/24/2024 10:08 PM MANAGER WEB APPLICATION DIFFERENTIAL AUTO Routine 11/24/2024 10: 08 PM MANAGER WEB APPLICATION CBC WITH AUTO DIFFERENTIAL Routine 11/24/2024 10:08 PM MANAGER WEB APPLICATION PROTIME-INR Routine 11/24/2024 10:08 PM MANAGER WEB APPLICATION BASIC METABOLIC PANEL Routine 11/24/2024 10:08 PM MANAGER WEB APPLICATION POCT GLUCOSE DEVICE Routine 11/24/2024 7:52 PM MANAGER WEB APPLICATION POCT GLUCOSE DEVICE Routine 11/24/2024 5 :06 PM MANAGER WEB APPLICATION POCT GLUCOSE DEVICE Routine 11/24/2024 4 :01 PM MANAGER WEB APPLICATION POCT GLUCOSE DEVICE Routine 11/24/2024 3 :01 PM MANAGER WEB APPLICATION POCT GLUCOSE DEVICE Routine 11/24/2024 1 :57 PM MANAGER WEB APPLICATION POCT GLUCOSE DEVICE Routine 11/24/2024 1 2:16 PM MANAGER WEB APPLICATION POCT GLUCOSE DEVICE Routine 11/24/2024 7 :25 AM MANAGER WEB APPLICATION EGFR Routine 11/23/2024 10:31 PM MANAGER WEB APPLICATION DIFFERENTIAL AUTO Routine 11/23/2024 10: 31 PM MANAGER WEB APPLICATION CBC WITH AUTO DIFFERENTIAL Routine 11/23/2024 10:31 PM MANAGER WEB APPLICATION PROTIME-INR Routine 11/23/2024 10:31 PM MANAGER WEB APPLICATION BASIC METABOLIC PANEL Routine 11/23/2024 10:31 PM MANAGER WEB APPLICATION POCT GLUCOSE DEVICE Routine 11/23/2024 1 0:13 PM MANAGER WEB APPLICATION POCT GLUCOSE DEVICE Routine 11/23/2024 8 :11 PM MANAGER WEB APPLICATION POCT GLUCOSE DEVICE Routine 11/23/2024 6 :23 PM MANAGER WEB APPLICATION POCT GLUCOSE DEVICE Routine 11/23/2024 4 :35 PM MANAGER WEB APPLICATION POCT GLUCOSE DEVICE Routine 11/23/2024 4 :34 PM MANAGER WEB APPLICATION POCT GLUCOSE DEVICE Routine 11/23/2024 1 2:28 PM MANAGER WEB APPLICATION POCT GLUCOSE DEVICE Routine 11/23/2024 8 :07 AM MANAGER WEB APPLICATION POCT GLUCOSE DEVICE Routine 11/22/2024 8 :03 PM MANAGER WEB APPLICATION DIFFERENTIAL AUTO Routine 11/22/2024 7:0 5 PM MANAGER WEB APPLICATION CBC WITH AUTO DIFFERENTIAL Routine 11/22/2024 7:05 PM MANAGER WEB APPLICATION TROPONIN I HIGH-SENSITIVITY Timed 11/22/2024 7:04 PM MANAGER WEB APPLICATION EGFR Timed 11/22/2024 7:04 PM MANAGER WEB APPLICATION APTT Routine 11/22/2024 7:04 PM MANAGER WEB APPLICATION PROTIME-INR Routine 11/22/2024 7:04 PM MANAGER WEB APPLICATION PHOSPHORUS Timed 11/22/2024 7:04 PM MANAGER WEB APPLICATION MAGNESIUM Timed 11/22/2024 7:04 PM MANAGER WEB APPLICATION BASIC METABOLIC PANEL Timed 11/22/2024 7:04 PM MANAGER WEB APPLICATION POCT GLUCOSE DEVICE Routine 11/22/2024 6 :56 PM MANAGER WEB APPLICATION POCT GLUCOSE DEVICE Routine 11/22/2024 5 :27 PM MANAGER WEB APPLICATION XR CHEST 1 VIEW ED Urgent/IP Urgent 11/22/2024 3:32 PM MANAGER WEB APPLICATION POCT GLUCOSE DEVICE Routine 11/22/2024 2 :42 PM MANAGER WEB APPLICATION POCT GLUCOSE DEVICE Routine 11/22/2024 1 1:57 AM MANAGER WEB APPLICATION POCT GLUCOSE DEVICE Routine 11/22/2024 8 :10 AM MANAGER WEB APPLICATION APTT STAT 11/22/2024 12:22 AM MANAGER WEB APPLICATION EGFR Routine 2024 10:06 PM MANAGER WEB APPLICATION DIFFERENTIAL AUTO Routine 2024 10: 06 PM MANAGER WEB APPLICATION CRITICAL RESULT CALLBACK HEMATOLOGY STAT 2024 10:06 PM MANAGER WEB APPLICATION CBC WITH AUTO DIFFERENTIAL Routine 2024 10:06 PM MANAGER WEB APPLICATION APTT STAT 2024 10:06 PM MANAGER WEB APPLICATION PROTIME-INR Routine 2024 10:06 PM MANAGER WEB APPLICATION BASIC METABOLIC PANEL Routine 2024 10:06 PM MANAGER WEB APPLICATION POCT GLUCOSE DEVICE Routine 2024 7 :21 PM MANAGER WEB APPLICATION POCT GLUCOSE DEVICE Routine 2024 4 :43 PM MANAGER WEB APPLICATION POCT GLUCOSE DEVICE Routine 2024 1 2:22 PM MANAGER WEB APPLICATION POCT GLUCOSE DEVICE Routine 2024 8 :06 AM MANAGER WEB APPLICATION POCT GLUCOSE DEVICE Routine 2024 3 :35 AM MANAGER WEB APPLICATION POCT GLUCOSE DEVICE Routine 2024 1 2:12 AM MANAGER WEB APPLICATION TROPONIN I HIGH-SENSITIVITY 6-HOUR Timed 11/20/2024 10:13 PM MANAGER WEB APPLICATION EGFR Routine 11/20/2024 10:13 PM MANAGER WEB APPLICATION DIFFERENTIAL AUTO Routine 11/20/2024 10: 13 PM MANAGER WEB APPLICATION CBC WITH AUTO DIFFERENTIAL Routine 11/20/2024 10:13 PM MANAGER WEB APPLICATION APTT STAT 11/20/2024 10:13 PM MANAGER WEB APPLICATION PROTIME-INR Routine 11/20/2024 10:13 PM MANAGER WEB APPLICATION BASIC METABOLIC PANEL Routine 11/20/2024 10:13 PM MANAGER WEB APPLICATION POCT GLUCOSE DEVICE Routine 11/20/2024 8 :01 PM MANAGER WEB APPLICATION POCT GLUCOSE DEVICE Routine 11/20/2024 4 :36 PM MANAGER WEB APPLICATION APTT STAT 11/20/2024 2:58 PM MANAGER WEB APPLICATION POCT GLUCOSE DEVICE Routine 11/20/2024 1 1:17 AM MANAGER WEB APPLICATION APTT STAT 11/20/2024 8:28 AM MANAGER WEB APPLICATION PROTIME-INR STAT 11/20/2024 8:28 AM MANAGER WEB APPLICATION POCT GLUCOSE DEVICE Routine 11/20/2024 7 :44 AM MANAGER WEB APPLICATION TROPONIN I HIGH-SENSITIVITY 4-HOUR Timed 11/20/2024 2:16 AM MANAGER WEB APPLICATION CBC WITHOUT DIFFERENTIAL Timed 11/20/2024 2:16 AM MANAGER WEB APPLICATION TROPONIN I HIGH-SENSITIVITY 2-HOUR Timed 11/20/2024 12:24 AM MANAGER WEB APPLICATION CRITICAL RESULT CALLBACK CARDIO CHEM Timed 11/20/2024 12:24 AM MANAGER WEB APPLICATION EGFR Routine 11/20/2024 12:24 AM MANAGER WEB APPLICATION APTT STAT 11/20/2024 12:24 AM MANAGER WEB APPLICATION BASIC METABOLIC PANEL Routine 11/20/2024 12:24 AM MANAGER WEB APPLICATION POCT GLUCOSE DEVICE Routine 11/19/2024 1 1:01 PM MANAGER WEB APPLICATION TROPONIN I HIGH-SENSITIVITY SERIES (BASELINE, 2HR, 4HR, 6HR) Timed 11/19/2024 10:15 PM MANAGER WEB APPLICATION ECG 12-LEAD Routine 11/19/2024 10:11 PM MANAGER WEB APPLICATION POCT GLUCOSE DEVICE Routine 11/19/2024 7 :20 PM MANAGER WEB APPLICATION POCT GLUCOSE DEVICE Routine 11/19/2024 4 :39 PM MANAGER WEB APPLICATION APTT STAT 11/19/2024 3:39 PM MANAGER WEB APPLICATION POCT GLUCOSE DEVICE Routine 11/19/2024 1 2:05 PM MANAGER WEB APPLICATION POCT GLUCOSE DEVICE Routine 11/19/2024 1 2:03 PM MANAGER WEB APPLICATION EGFR Routine 11/19/2024 8:52 AM MANAGER WEB APPLICATION DIFFERENTIAL AUTO Routine 11/19/2024 8:5 2 AM MANAGER WEB APPLICATION CBC WITH AUTO DIFFERENTIAL Routine 11/19/2024 8:52 AM MANAGER WEB APPLICATION APTT STAT 11/19/2024 8:52 AM MANAGER WEB APPLICATION PROTIME-INR STAT 11/19/2024 8:52 AM MANAGER WEB APPLICATION HEMOGLOBIN A1C Routine 11/19/2024 8:52 AM MANAGER WEB APPLICATION BASIC METABOLIC PANEL Routine 11/19/2024 8:52 AM MANAGER WEB APPLICATION POCT GLUCOSE DEVICE Routine 11/19/2024 7 :46 AM MANAGER WEB APPLICATION EGFR Routine 11/19/2024 4:37 AM MANAGER WEB APPLICATION CBC WITHOUT DIFFERENTIAL Timed 11/19/2024 4:37 AM MANAGER WEB APPLICATION BASIC METABOLIC PANEL Routine 11/19/2024 4:37 AM MANAGER WEB APPLICATION POCT GLUCOSE DEVICE Routine 11/19/2024 2 :58 AM MANAGER WEB APPLICATION POCT GLUCOSE DEVICE Routine 11/18/2024 1 0:55 PM MANAGER WEB APPLICATION POCT GLUCOSE DEVICE Routine 11/18/2024 7 :25 PM MANAGER WEB APPLICATION DIFFERENTIAL AUTO Routine 11/18/2024 5:5 3 PM MANAGER WEB APPLICATION CBC WITH AUTO DIFFERENTIAL Routine 11/18/2024 5:53 PM MANAGER WEB APPLICATION POCT GLUCOSE DEVICE Routine 11/18/2024 4 :41 PM MANAGER WEB APPLICATION POCT GLUCOSE DEVICE Routine 11/18/2024 2 :03 PM MANAGER WEB APPLICATION POCT GLUCOSE DEVICE Routine 11/18/2024 1 :15 PM MANAGER WEB APPLICATION TRANSFUSE RED BLOOD CELLS Timed 11/18/2024 12:39 PM MANAGER WEB APPLICATION POCT GLUCOSE DEVICE Routine 11/18/2024 1 2:02 PM MANAGER WEB APPLICATION POCT GLUCOSE DEVICE Routine 11/18/2024 1 1:13 AM MANAGER WEB APPLICATION TYPE AND SCREEN Timed 11/18/2024 10:26 AM MANAGER WEB APPLICATION POCT GLUCOSE DEVICE Routine 11/18/2024 1 0:13 AM MANAGER WEB APPLICATION PREPARE RBC Timed 11/18/2024 9:58 AM MANAGER WEB APPLICATION POC BLOOD GAS AND CHEMISTRIES, ARTERIAL Routine 11/18/2024 9:39 AM MANAGER WEB APPLICATION POCT GLUCOSE DEVICE Routine 11/18/2024 8 :48 AM MANAGER WEB APPLICATION EXPLORATION - CAROTID 11/18/2024 7:40 AM MANAGER WEB APPLICATION 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) POCT GLUCOSE DEVICE Routine 11/18/2024 6 :37 AM MANAGER WEB APPLICATION documented in this encounter Results * POCT glucose (11/30/2024 11:42 AM MANAGER WEB APPLICATION) Glucose, POC 121 70 - 199 mg/dL Blood 11/30/2024 11:4 2 AM MANAGER WEB APPLICATION 11/30/2024 11:42 AM MANAGER WEB APPLICATION Hesham Madsen MD LAB POCT ORDERABLES - DEVICE Final Result Performing Organization Address City/[facility] Co de Phone Number [facility] Department [place] [place] [address] * (ABNORMAL) POCT glucose (11/30/2024 7:37 AM MANAGER WEB APPLICATION) Glucose, POC 220(H) 70 - 199 mg/dL Blood 11/30/2024 7:37 AM MANAGER WEB APPLICATION 11/30/2024 7:37 AM MANAGER WEB APPLICATION Hesham Madsen MD LAB POCT ORDERABLES - DEVICE Final Result Performing Organization Address City/[facility] Co de Phone Number [facility] Department [place] [address] * (ABNORMAL) POCT glucose (11/30/2024 2:12 AM MANAGER WEB APPLICATION) Glucose, POC 227(H) 70 - 199 mg/dL Blood 11/30/2024 2:12 AM MANAGER WEB APPLICATION 11/30/2024 2:12 AM MANAGER WEB APPLICATION Hesham Madsen MD LAB POCT ORDERABLES - DEVICE Final Result Performing Organization Address [facility] Co de Phone Number [facility] Department [place] [place] [address] * eGFR (11/30/2024 12:02 AM MANAGER WEB APPLICATION) Pathologist [facility] eGFR >90 >=60 mL/min/1. 73 m2 Comment: [...] reviewed 2021. Blood 11/30/2024 12:0 2 AM MANAGER WEB APPLICATION 11/30/2024 12:30 AM MANAGER WEB APPLICATION Hesham Madsen MD LAB BLOOD ORDERABLES Final R esult Performing Organization Address [facility] Co de Phone Number [facility] Department [place] [place] [address] * (ABNORMAL) Basic metabolic panel (11/30/2024 12:02 AM MANAGER WEB APPLICATION) Pathologist [facility] Sodium 143 135 - 145 mmol/L Potassium, pl 4.4 3.3 - 4.9 mmol/L [facility] Comment:Repeated and Verifie d Chloride 101 97 - 110 mmol/L [facility] CO2 36(H) 22 - 32 mmol/L [facility] Anion gap 6 2 - 15 mmol/L [facility] BUN 23 6 - 25 mg/dL [facility] Creatinine 0.47(L) 0.60 - 1.10 mg/dL [facility] Glucose 171 70 - 199 mg/dL [facility] Comment: Interpretive Data Fasting glucose >/= 126 [...] 2022. Calcium 9.1 8.5 - 10.3 mg/dL [facility] Comment:Reviewed Blood 11/30/2024 12:0 2 AM MANAGER WEB APPLICATION 11/30/2024 12:30 AM MANAGER WEB APPLICATION Hesham Madsen MD LAB BLOOD ORDERABLES Final R esult Performing Organization Address City/[facility]/ZIP Co de Phone Number [facility] Department [place] [address] * (ABNORMAL) POCT glucose (11/29/2024 9:58 PM MANAGER WEB APPLICATION) Glucose, POC 207(H) 70 - 199 mg/dL Blood 11/29/2024 9:58 PM MANAGER WEB APPLICATION 11/29/2024 9:58 PM MANAGER WEB APPLICATION Hesham Madsen MD LAB POCT ORDERABLES - DEVICE Final Result Performing Organization Address [facility]/ZIP Co de Phone Number [facility] Department [place] [address] * eGFR (11/29/2024 8:56 PM MANAGER WEB APPLICATION) eGFR See Comment >=60 Comment: Interpretive Data [...] last reviewed 2021. Blood 11/29/2024 8:56 PM MANAGER WEB APPLICATION 11/29/2024 9:58 PM MANAGER WEB APPLICATION Manisha Williamson NP LAB BLOOD ORDERABLES Edited Result - Final ALLY WOODARD [facility] Department [place] [address] * Critical Result Callback Chemistry (11/29/2024 8:56 PM MANAGER WEB APPLICATION) Date Notified [id number] Time Notified [id number] ALLY WOODARD TestName Potassium, Calcium ALLY STEWART Called/Read Back [place] WOODARD Credentials RN ALLY STEWART Called By CHASITY STEWART Blood 11/29/2024 8:56 PM MANAGER WEB APPLICATION 11/29/2024 9:58 PM MANAGER WEB APPLICATION Manisha Nettie Greubel [employer] PARASITOLOGIST LAB BLOOD ORDERABLES Final Result ALLY [facility] Department [place] [address] * (ABNORMAL) Differential, auto (11/29/2024 8:56 PM MANAGER WEB APPLICATION) Neutrophil abs 7.2(H) 1.5 - 6.5 K/cumm Imm gran abs 0.2(H) 0.0 - 0.1 K/cumm [facility] Lymphocyte abs 2.1 0.8 - 3.3 K/cumm [facility] Monocyte abs 0.7 0.2 - 0.8 K/cumm [facility] Eosinophil abs 0.0 0.0 - 0.5 K/cumm [facility] Basophil abs 0.0 0.0 - 0.1 K/cumm [facility] Neutrophil pct 70.6 % [facility] Comment: Interpretive Data Percent cell count reference ranges are not reported, since discordance with absolute values may lead to misinterpretation of CBC data. Current Interpretive Data was last revised on 2018. Imm gran pct 1.8 % [facility] Comment: Interpretive Data Percent cell count reference ranges are not reported, since discordance with absolute values may lead to misinterpretation of CBC data. Current Interpretive Data was last revised on 2018. Lymphocyte pct 20.4 % [facility] Comment: Interpretive Data Percent cell count reference ranges are not reported, since discordance with absolute values may lead to misinterpretation of CBC data. Current Interpretive Data was last revised on 2018. Monocyte pct 6.7 % [facility] Comment: Interpretive Data Percent cell count reference ranges are not reported, since discordance with absolute values may lead to misinterpretation of CBC data. Current Interpretive Data was last revised on 2018. Eosinophil pct 0.4 % [facility] Comment: Interpretive Data Percent cell count reference ranges are not reported, since discordance with absolute values may lead to misinterpretation of CBC data. Current Interpretive Data was last revised on 2018. Basophil pct 0.1 % [facility] Comment: Interpretive Data Percent cell count reference ranges are not reported, since discordance with absolute values may lead to misinterpretation of CBC data. Current Interpretive Data was last revised on 2018. Blood 11/29/2024 8:56 PM MANAGER WEB APPLICATION 11/29/2024 9:45 PM MANAGER WEB APPLICATION Manisha Williamson NP LAB BLOOD ORDERABLES Final Result Performing Organization Address [facility] Co de Phone Number [facility] [place] [address] * (ABNORMAL) Protime-INR (11/29/2024 8:56 PM MANAGER WEB APPLICATION) PT 28.0(H) 9.7 - 13.0 sec INR 2.54(H) 0.90 - 1.20 [facility] Comment: Interpretive data Oral anticoagulant therapeutic ranges: Venous thromboembolism prophylaxis or treatment: 2.0-3.0 CARDIOLOGY Standard range: 2.0-3.0 High-intensity range: 2.5-3.5 Refer to indication-specific guidelines for appropriate target ranges for prosthetic heart valve replacement. Current interpretive data was last revised on 2019. Blood 11/29/2024 8:56 PM MANAGER WEB APPLICATION 11/29/2024 9:45 PM MANAGER WEB APPLICATION Hesham Madsen MD LAB BLOOD ORDERABLES Final R esult Performing Organization Address [facility] Co de Phone Number [facility] [place] [address] * (ABNORMAL) CBC with auto differential (11/29/2024 8:56 PM MANAGER WEB APPLICATION) WBC 10.2(H) 3.8 - 9.9 K/cumm Hgb 9.2(L) 11.9 - 15.5 g/dL [facility] Hct 33.3(L) 35.6 - 45.5 % [facility] Plt 370 150 - 400 K/cumm [facility] MPV 10.7 9.1 - 12.3 fL [facility] RBC 4.03 3.90 - 5.20 M/cumm [facility] MCV 82.6 81.3 - 96.4 fL [facility] MCH 22.8(L) 27.1 - 33.3 pg [facility] MCHC 27.6(L) 32.3 - 35.7 g/dL [facility] RDW CV 22.9(H) 11.1 - 14.9 % [facility] RDW SD 67.7(H) 35.7 - 48.1 fL [facility] NRBC abs 0.04(H) 0.00 - 0.01 K/cumm [facility] Blood 11/29/2024 8:56 PM MANAGER WEB APPLICATION 11/29/2024 9:45 PM MANAGER WEB APPLICATION Manisha Williamson NP LAB BLOOD ORDERABLES Final Result [facility] Department [place] [address] * Basic metabolic panel (11/29/2024 8:56 PM MANAGER WEB APPLICATION) Sodium See Comment 135 - 145 mmol/L Comment:Credited: Sample inv estigated and is suggestive of an improper collection (e.g., IV fluid contamination, improper tube type). Deleted at the Request of Kingston Fulton RN on 11/29/2024 23:33:56 MANAGER WEB APPLICATION by RV . Potassium, pl See Comment 3.3 - 4.9 mmol/L [facility] Comment: Hemolyzed; Potassium value may be falsely elevated by as much as 0.3-0.5 mmol/L. Suggest redraw and reanalysis. Credited: Sample investigated and is suggestive of an improper collection (e.g., IV fluid contamination, improper tube type). Deleted at the Request of Kingston Fulton RN on 11/29/2024 23:33:56 MANAGER WEB APPLICATION by RV . Chloride See Comment 97 - 110 mmol/L [facility] Comment:Credited: Sample inv estigated and is suggestive of an improper collection (e.g., IV fluid contamination, improper tube type). Deleted at the Request of Kingston Fulton RN on 11/29/2024 23:33:56 MANAGER WEB APPLICATION by RV . CO2 See Comment 22 - 32 mmol/L [facility] Comment:Credited: Sample inv estigated and is suggestive of an improper collection (e.g., IV fluid contamination, improper tube type). Deleted at the Request of Kingston Fulton RN on 11/29/2024 23:33:56 MANAGER WEB APPLICATION by RV . Anion gap See Comment 2 - 15 mmol/L [facility] Comment:Credited: Sample inv estigated and is suggestive of an improper collection (e.g., IV fluid contamination, improper tube type). Deleted at the Request of Kingston Fulton RN on 11/29/2024 23:33:56 MANAGER WEB APPLICATION by RV . BUN See Comment 6 - 25 mg/dL [facility] Comment:Credited: Sample inv estigated and is suggestive of an improper collection (e.g., IV fluid contamination, improper tube type). Deleted at the Request of Kingston Fulton RN on 11/29/2024 23:33:56 MANAGER WEB APPLICATION by RV . Creatinine See Comment 0.60 - 1.10 mg/dL [facility] Comment:Credited: Sample inv estigated and is suggestive of an improper collection (e.g., IV fluid contamination, improper tube type). Deleted at the Request of Kingston Fulton RN on 11/29/2024 23:33:56 MANAGER WEB APPLICATION by RV . Glucose See Comment 70 - 199 mg/dL [facility] Comment: Credited: Sample investigated and is suggestive of an improper collection (e.g., IV fluid contamination, improper tube type). Deleted at the Request of Kingston Fulton RN on 11/29/2024 23:33:56 MANAGER WEB APPLICATION by RV . Interpretive Data Fasting glucose [...] Calcium See Comment 8.5 - 10.3 mg/dL [facility] Comment:Credited: Sample inv estigated and is suggestive of an improper collection (e.g., IV fluid contamination, improper tube type). Deleted at the Request of Kingston Fulton RN on 11/29/2024 23:33:56 MANAGER WEB APPLICATION by RV . Blood 11/29/2024 8:56 PM MANAGER WEB APPLICATION 11/29/2024 9:45 PM MANAGER WEB APPLICATION Manisha Williamson NP LAB BLOOD ORDERABLES Edited Result - Final Performing Organization Address City/[facility] Co de Phone Number [facility] [place] [employer] [place] [address] * POCT glucose (11/29/2024 7:29 PM MANAGER WEB APPLICATION) Glucose, POC 182 70 - 199 mg/dL Blood 11/29/2024 7:29 PM MANAGER WEB APPLICATION 11/29/2024 7:29 PM MANAGER WEB APPLICATION Result [facility] Hesham Madsen MD LAB POCT ORDERABLES - DEVICE Final Result Performing Organization Address City/[facility] Co de Phone Number [facility] Department [place] [address] * POCT glucose (11/29/2024 5:12 PM MANAGER WEB APPLICATION) Glucose, POC 128 70 - 199 mg/dL Blood 11/29/2024 5:12 PM MANAGER WEB APPLICATION 11/29/2024 5:12 PM MANAGER WEB APPLICATION Result [facility] Hesham Madsen MD LAB POCT ORDERABLES - DEVICE Final Result Performing Organization Address City/[facility] Co de Phone Number [facility] Department [place] [address] * POCT glucose (11/29/2024 11:17 AM MANAGER WEB APPLICATION) Glucose, POC 189 70 - 199 mg/dL Blood 11/29/2024 11:1 7 AM MANAGER WEB APPLICATION 11/29/2024 11:17 AM MANAGER WEB APPLICATION Hesham Madsen MD LAB POCT ORDERABLES - DEVICE Final Result Performing Organization Address [facility] de Phone Number [facility] [place] [employer] [place] [address] * POCT glucose (11/29/2024 7:42 AM MANAGER WEB APPLICATION) Glucose, POC 149 70 - 199 mg/dL Blood 11/29/2024 7:42 AM MANAGER WEB APPLICATION 11/29/2024 7:42 AM MANAGER WEB APPLICATION Result [facility] Hesham Madsen MD LAB POCT ORDERABLES - DEVICE Final Result Performing Organization Address [facility] de Phone Number [facility] [place] [employer] [place] [address] * POCT glucose (11/29/2024 2:07 AM MANAGER WEB APPLICATION) Glucose, POC 163 70 - 199 mg/dL Blood 11/29/2024 2:07 AM MANAGER WEB APPLICATION 11/29/2024 2:07 AM MANAGER WEB APPLICATION Result [facility] Hesham Madsen MD LAB POCT ORDERABLES - DEVICE Final Result Performing Organization Address [facility] de Phone Number [facility] [place] [employer] [place] [address] * (ABNORMAL) POCT glucose (11/29/2024 12:02 AM MANAGER WEB APPLICATION) Glucose, POC 202(H) 70 - 199 mg/dL Blood 11/29/2024 12:0 2 AM MANAGER WEB APPLICATION 11/29/2024 12:02 AM MANAGER WEB APPLICATION Hesham Madsen MD LAB POCT ORDERABLES - DEVICE Final Result Performing Organization Address [facility] Co de Phone Number ALLY [facility] Department [place] [address] * eGFR (11/28/2024 9:54 PM MANAGER WEB APPLICATION) Pathologist [facility] eGFR >90 >=60 mL/min/1. 73 m2 Comment: [...] last reviewed 2021. Blood 11/28/2024 9:54 PM MANAGER WEB APPLICATION 11/28/2024 10:52 PM MANAGER WEB APPLICATION Manisha Williamson NP LAB BLOOD ORDERABLES Final Result Performing Organization Address City/[facility] Co de Phone Number [facility] [place] [address] * (ABNORMAL) Differential, auto (11/28/2024 9:54 PM MANAGER WEB APPLICATION) Pathologist [facility] Neutrophil abs 6.3 1.5 - 6.5 K/cumm Imm gran abs 0.2(H) 0.0 - 0.1 K/cumm [facility] Lymphocyte abs 1.1 0.8 - 3.3 K/cumm [facility] Monocyte abs 0.5 0.2 - 0.8 K/cumm [facility] Eosinophil abs 0.0 0.0 - 0.5 K/cumm [facility] Basophil abs 0.0 0.0 - 0.1 K/cumm [facility] Neutrophil pct 78.3 % [facility] Comment: Interpretive Data Percent cell count reference ranges are not reported, since discordance with absolute values may lead to misinterpretation of CBC data. Current Interpretive Data was last revised on 2018. Imm gran pct 2.0 % [facility] Comment: Interpretive Data Percent cell count reference ranges are not reported, since discordance with absolute values may lead to misinterpretation of CBC data. Current Interpretive Data was last revised on 2018. Lymphocyte pct 13.6 % [facility] Comment: Interpretive Data Percent cell count reference ranges are not reported, since discordance with absolute values may lead to misinterpretation of CBC data. Current Interpretive Data was last revised on 2018. Monocyte pct 5.8 % [facility] Comment: Interpretive Data Percent cell count reference ranges are not reported, since discordance with absolute values may lead to misinterpretation of CBC data. Current Interpretive Data was last revised on 2018. Eosinophil pct 0.2 % [facility] Comment: Interpretive Data Percent cell count reference ranges are not reported, since discordance with absolute values may lead to misinterpretation of CBC data. Current Interpretive Data was last revised on 2018. Basophil pct 0.1 % [facility] Comment: Interpretive Data Percent cell count reference ranges are not reported, since discordance with absolute values may lead to misinterpretation of CBC data. Current Interpretive Data was last revised on 2018. Blood 11/28/2024 9:54 PM MANAGER WEB APPLICATION 11/28/2024 10:53 PM MANAGER WEB APPLICATION Manisha Williamson NP LAB BLOOD ORDERABLES Final Result [facility] Department [place] [address] * (ABNORMAL) Protime-INR (11/28/2024 9:54 PM MANAGER WEB APPLICATION) [facility] PT 33.7(H) 9.7 - 13.0 sec INR 3.05(H) 0.90 - 1.20 [facility] Comment: Interpretive data Oral anticoagulant therapeutic ranges: Venous thromboembolism prophylaxis or treatment: 2.0-3.0 CARDIOLOGY Standard range: 2.0-3.0 High-intensity range: 2.5-3.5 Refer to indication-specific guidelines for appropriate target ranges for prosthetic heart valve replacement. Current interpretive data was last revised on 2019. Blood 11/28/2024 9:54 PM MANAGER WEB APPLICATION 11/28/2024 11:04 PM MANAGER WEB APPLICATION Hesham Madsen MD LAB BLOOD ORDERABLES Final R esult [facility] Department [place] [address] * (ABNORMAL) CBC with auto differential (11/28/2024 9:54 PM MANAGER WEB APPLICATION) [facility] WBC 8.1 3.8 - 9.9 K/cumm Hgb 8.7(L) 11.9 - 15.5 g/dL [facility] Hct 31.5(L) 35.6 - 45.5 % [facility] Plt 360 150 - 400 K/cumm [facility] MPV 10.9 9.1 - 12.3 fL [facility] RBC 3.84(L) 3.90 - 5.20 M/cumm [facility] MCV 82.0 81.3 - 96.4 fL [facility] MCH 22.7(L) 27.1 - 33.3 pg [facility] MCHC 27.6(L) 32.3 - 35.7 g/dL [facility] RDW CV 22.9(H) 11.1 - 14.9 % [facility] RDW SD 67.8(H) 35.7 - 48.1 fL [facility] NRBC abs 0.04(H) 0.00 - 0.01 K/cumm [facility] Blood 11/28/2024 9:54 PM MANAGER WEB APPLICATION 11/28/2024 10:53 PM MANAGER WEB APPLICATION Manisha Williamson NP LAB BLOOD ORDERABLES Final Result [facility] Derrick [facility] Department [place] [address] * (ABNORMAL) Basic metabolic panel (11/28/2024 9:54 PM MANAGER WEB APPLICATION) [facility] Sodium 141 135 - 145 mmol/L Potassium, pl 3.4 3.3 - 4.9 mmol/L [facility] Chloride 99 97 - 110 mmol/L [facility] CO2 33(H) 22 - 32 mmol/L [facility] Anion gap 9 2 - 15 mmol/L [facility] BUN 20 6 - 25 mg/dL [facility] Creatinine 0.45(L) 0.60 - 1.10 mg/dL [facility] Glucose 282(H) 70 - 199 mg/dL [facility] Comment: Interpretive Data Fasting glucose >/= 126 [...] 2022. Calcium 8.4(L) 8.5 - 10.3 mg/dL [facility] Blood 11/28/2024 9:54 PM MANAGER WEB APPLICATION 11/28/2024 10:52 PM MANAGER WEB APPLICATION Manisha Williamson NP LAB BLOOD ORDERABLES Final Result Performing Organization Address City/[facility]/ZIP Co de Phone Number [facility] [place] [address] * (ABNORMAL) POCT glucose (11/28/2024 7:26 PM MANAGER WEB APPLICATION) Glucose, POC 319(H) 70 - 199 mg/dL Blood 11/28/2024 7:26 PM MANAGER WEB APPLICATION 11/28/2024 7:26 PM MANAGER WEB APPLICATION Result [facility] Hesham Madsen MD LAB POCT ORDERABLES - DEVICE Final Result Performing Organization Address City/[facility] Co de Phone Number [facility] [place] [address] * POCT glucose (11/28/2024 6:16 PM MANAGER WEB APPLICATION) Glucose, POC 115 70 - 199 mg/dL Blood 11/28/2024 6:16 PM MANAGER WEB APPLICATION 11/28/2024 6:16 PM MANAGER WEB APPLICATION Hesham Madsen MD LAB POCT ORDERABLES - DEVICE Final Result Performing Organization Address [facility] de Phone Number [facility] [place] [place] [address] * POCT glucose (11/28/2024 5:01 PM MANAGER WEB APPLICATION) Glucose, POC 70 70 - 199 mg/dL Blood 11/28/2024 5:01 PM MANAGER WEB APPLICATION 11/28/2024 5:01 PM MANAGER WEB APPLICATION Result [facility] [facility] Hesham Madsen MD LAB POCT ORDERABLES - DEVICE Final Result Performing Organization Address City/[facility] de Phone Number [facility] [place] [address] * (ABNORMAL) POCT glucose (11/28/2024 11:19 AM MANAGER WEB APPLICATION) Glucose, POC 280(H) 70 - 199 mg/dL Comment:Glu2: RN/ Notified Glucose comment 1 Glu2: RAMYA/ Notified [facility] Blood 11/28/2024 11:1 9 AM MANAGER WEB APPLICATION 11/28/2024 11:19 AM MANAGER WEB APPLICATION Hesham Madsen MD LAB POCT ORDERABLES - DEVICE Final Result Performing Organization Address [facility] de Phone Number [facility] [place] [address] * (ABNORMAL) POCT glucose (11/28/2024 7:20 AM MANAGER WEB APPLICATION) Glucose, POC 247(H) 70 - 199 mg/dL Comment:Glu2: RN/ Notified Glucose comment 1 Glu2: RN/ Notified [facility] Blood 11/28/2024 7:20 AM MANAGER WEB APPLICATION 11/28/2024 7:20 AM MANAGER WEB APPLICATION Hesham Madsen MD LAB POCT ORDERABLES - DEVICE Final Result Performing Organization Address [facility] de Phone Number [facility] [place] [address] * (ABNORMAL) POCT glucose (11/28/2024 2:02 AM MANAGER WEB APPLICATION) Glucose, POC 303(H) 70 - 199 mg/dL Blood 11/28/2024 2:02 AM MANAGER WEB APPLICATION 11/28/2024 2:02 AM MANAGER WEB APPLICATION Hesham Madsen MD LAB POCT ORDERABLES - DEVICE Final Result Performing Organization Address City/[facility] de Phone Number [facility] [place] [address] * POCT glucose (11/27/2024 10:58 PM MANAGER WEB APPLICATION) Glucose, POC 150 70 - 199 mg/dL Blood 11/27/2024 10:5 8 PM MANAGER WEB APPLICATION 11/27/2024 10:58 PM MANAGER WEB APPLICATION Hesham Madsen MD LAB POCT ORDERABLES - DEVICE Final Result Performing Organization Address City/[facility] Co de Phone Number [facility] [place] [address] * eGFR (11/27/2024 9:47 PM MANAGER WEB APPLICATION) [facility] eGFR >90 >=60 mL/min/1. 73 m2 Comment: [...] last reviewed 2021. Blood 11/27/2024 9:47 PM MANAGER WEB APPLICATION 11/27/2024 10:39 PM MANAGER WEB APPLICATION Manisha Williamson NP LAB BLOOD ORDERABLES Final Result Performing Organization Address City/[facility]/ZIP Co de Phone Number [facility] [place] [address] * Differential, auto (11/27/2024 9:47 PM MANAGER WEB APPLICATION) [facility] Neutrophil abs 5.9 1.5 - 6.5 K/cumm Imm gran abs 0.1 0.0 - 0.1 K/cumm [facility] Lymphocyte abs 1.3 0.8 - 3.3 K/cumm [facility] Monocyte abs 0.7 0.2 - 0.8 K/cumm [facility] Eosinophil abs 0.0 0.0 - 0.5 K/cumm [facility] Basophil abs 0.0 0.0 - 0.1 K/cumm [facility] Neutrophil pct 73.6 % [facility] Comment: Interpretive Data Percent cell count reference ranges are not reported, since discordance with absolute values may lead to misinterpretation of CBC data. Current Interpretive Data was last revised on 2018. Imm gran pct 1.5 % [facility] Comment: Interpretive Data Percent cell count reference ranges are not reported, since discordance with absolute values may lead to misinterpretation of CBC data. Current Interpretive Data was last revised on 2018. Lymphocyte pct 16.2 % [facility] Comment: Interpretive Data Percent cell count reference ranges are not reported, since discordance with absolute values may lead to misinterpretation of CBC data. Current Interpretive Data was last revised on 2018. Monocyte pct 8.2 % [facility] Comment: Interpretive Data Percent cell count reference ranges are not reported, since discordance with absolute values may lead to misinterpretation of CBC data. Current Interpretive Data was last revised on 2018. Eosinophil pct 0.4 % [facility] Comment: Interpretive Data Percent cell count reference ranges are not reported, since discordance with absolute values may lead to misinterpretation of CBC data. Current Interpretive Data was last revised on 2018. Basophil pct 0.1 % [facility] Comment: Interpretive Data Percent cell count reference ranges are not reported, since discordance with absolute values may lead to misinterpretation of CBC data. Current Interpretive Data was last revised on 2018. Blood 11/27/2024 9:47 PM MANAGER WEB APPLICATION 11/27/2024 10:05 PM MANAGER WEB APPLICATION Manisha Williamson NP LAB BLOOD ORDERABLES Final Result [facility] [place] [address] * (ABNORMAL) Protime-INR (11/27/2024 9:47 PM MANAGER WEB APPLICATION) [facility] PT 34.7(H) 9.7 - 13.0 sec INR 3.14(H) 0.90 - 1.20 [facility] Comment: Interpretive data Oral anticoagulant therapeutic ranges: Venous thromboembolism prophylaxis or treatment: 2.0-3.0 CARDIOLOGY Standard range: 2.0-3.0 High-intensity range: 2.5-3.5 Refer to indication-specific guidelines for appropriate target ranges for prosthetic heart valve replacement. Current interpretive data was last revised on 2019. Blood 11/27/2024 9:47 PM MANAGER WEB APPLICATION 11/27/2024 10:15 PM MANAGER WEB APPLICATION us Hesham Madsen MD LAB BLOOD ORDERABLES Final R esult [facility] Department [place] [address] * (ABNORMAL) CBC with auto differential (11/27/2024 9:47 PM MANAGER WEB APPLICATION) [facility] WBC 8.1 3.8 - 9.9 K/cumm Hgb 8.4(L) 11.9 - 15.5 g/dL [facility] Hct 31.0(L) 35.6 - 45.5 % [facility] Plt 343 150 - 400 K/cumm [facility] MPV 10.4 9.1 - 12.3 fL [facility] RBC 3.73(L) 3.90 - 5.20 M/cumm [facility] MCV 83.1 81.3 - 96.4 fL [facility] MCH 22.5(L) 27.1 - 33.3 pg [facility] MCHC 27.1(L) 32.3 - 35.7 g/dL [facility] RDW CV 23.2(H) 11.1 - 14.9 % [facility] RDW SD 69.7(H) 35.7 - 48.1 fL [facility] NRBC abs 0.03(H) 0.00 - 0.01 K/cumm [facility] Blood 11/27/2024 9:47 PM MANAGER WEB APPLICATION 11/27/2024 10:05 PM MANAGER WEB APPLICATION Manisha Williamson NP LAB BLOOD ORDERABLES Final Result [facility] Department [place] [address] * (ABNORMAL) Basic metabolic panel (11/27/2024 9:47 PM MANAGER WEB APPLICATION) Sodium 144 135 - 145 mmol/L Potassium, pl 4.4 3.3 - 4.9 mmol/L [facility] Comment:Hemolyzed; Potassium value may be falsely elevated by as much as 0.6-1.0 mmol/L. Suggest redraw and reanalysis. Chloride 101 97 - 110 mmol/L [facility] CO2 35(H) 22 - 32 mmol/L [facility] Anion gap 8 2 - 15 mmol/L [facility] BUN 22 6 - 25 mg/dL [facility] Creatinine 0.44(L) 0.60 - 1.10 mg/dL [facility] Glucose 156 70 - 199 mg/dL [facility] Comment: Interpretive Data Fasting glucose >/= 126 [...] 2022. Calcium 9.0 8.5 - 10.3 mg/dL [facility] Blood 11/27/2024 9:47 PM MANAGER WEB APPLICATION 11/27/2024 10:39 PM MANAGER WEB APPLICATION Manisha Williamson NP LAB BLOOD ORDERABLES Final Result Performing Organization Address [facility] de Phone Number [facility] [place] [address] * (ABNORMAL) POCT glucose (11/27/2024 8:31 PM MANAGER WEB APPLICATION) Glucose, POC 219(H) 70 - 199 mg/dL Blood 11/27/2024 8:31 PM MANAGER WEB APPLICATION 11/27/2024 8:31 PM MANAGER WEB APPLICATION Hesham Madsen MD LAB POCT ORDERABLES - DEVICE Final Result Performing Organization Address [facility] de Phone Number [facility] Department [place] [address] * POCT glucose (11/27/2024 4:59 PM MANAGER WEB APPLICATION) Glucose, POC 96 70 - 199 mg/dL Blood 11/27/2024 4:59 PM MANAGER WEB APPLICATION 11/27/2024 4:59 PM MANAGER WEB APPLICATION Hesham Madsen MD LAB POCT ORDERABLES - DEVICE Final Result Performing Organization Address [facility] de Phone Number [facility] Department [place] [address] * (ABNORMAL) POCT glucose (11/27/2024 11:42 AM MANAGER WEB APPLICATION) Glucose, POC 246(H) 70 - 199 mg/dL Comment:Glu2: RN/MD Notified Glucose comment 1 Glu2: RN/MD Notified [facility] Blood 11/27/2024 11:4 2 AM MANAGER WEB APPLICATION 11/27/2024 11:42 AM MANAGER WEB APPLICATION Hesham Madsen MD LAB POCT ORDERABLES - DEVICE Final Result Performing Organization Address [facility] Co de Phone Number [facility] [place] [address] * (ABNORMAL) POCT glucose (11/27/2024 7:21 AM MANAGER WEB APPLICATION) Glucose, POC 238(H) 70 - 199 mg/dL Comment:Glu2: RN/MD Notified Glucose comment 1 Glu2: RN/MD Notified [facility] Blood 11/27/2024 7:21 AM MANAGER WEB APPLICATION 11/27/2024 7:21 AM MANAGER WEB APPLICATION Hesham Madsen MD LAB POCT ORDERABLES - DEVICE Final Result Performing Organization Address City/[facility]/[place] [address] * (ABNORMAL) POCT glucose (11/27/2024 4:10 AM MANAGER WEB APPLICATION) Glucose, POC 263(H) 70 - 199 mg/dL Blood 11/27/2024 4:10 AM MANAGER WEB APPLICATION 11/27/2024 4:10 AM MANAGER WEB APPLICATION Hesham Madsen MD LAB POCT ORDERABLES - DEVICE Final Result Performing Organization Address City/[facility] [place] [address] * POCT glucose (11/26/2024 11:38 PM MANAGER WEB APPLICATION) Glucose, POC 84 70 - 199 mg/dL Blood 11/26/2024 11:3 8 PM MANAGER WEB APPLICATION 11/26/2024 11:38 PM MANAGER WEB APPLICATION Hesham Madsen MD LAB POCT ORDERABLES - DEVICE Final Result Performing Organization Address City/[facility]/ZIP Co de Phone Number [facility] [place] [address] * eGFR (11/26/2024 9:00 PM MANAGER WEB APPLICATION) [facility] eGFR >90 >=60 mL/min/1. 73 m2 Comment: [...] last reviewed 2021. Blood 11/26/2024 9:00 PM MANAGER WEB APPLICATION 11/26/2024 9:50 PM MANAGER WEB APPLICATION Manisha Williamson NP LAB BLOOD ORDERABLES Final Result [facility] Department [place] [address] * (ABNORMAL) Differential, auto (11/26/2024 9:00 PM MANAGER WEB APPLICATION) [facility] Neutrophil abs 7.8(H) 1.5 - 6.5 K/cumm Imm gran abs 0.1 0.0 - 0.1 K/cumm [facility] Lymphocyte abs 1.0 0.8 - 3.3 K/cumm [facility] Monocyte abs 0.7 0.2 - 0.8 K/cumm [facility] Eosinophil abs 0.0 0.0 - 0.5 K/cumm [facility] Basophil abs 0.0 0.0 - 0.1 K/cumm [facility] Neutrophil pct 81.0 % [facility] Comment: Interpretive Data Percent cell count reference ranges are not reported, since discordance with absolute values may lead to misinterpretation of CBC data. Current Interpretive Data was last revised on 2018. Imm gran pct 1.1 % [facility] Comment: Interpretive Data Percent cell count reference ranges are not reported, since discordance with absolute values may lead to misinterpretation of CBC data. Current Interpretive Data was last revised on 2018. Lymphocyte pct 10.8 % [facility] Comment: Interpretive Data Percent cell count reference ranges are not reported, since discordance with absolute values may lead to misinterpretation of CBC data. Current Interpretive Data was last revised on 2018. Monocyte pct 7.0 % [facility] Comment: Interpretive Data Percent cell count reference ranges are not reported, since discordance with absolute values may lead to misinterpretation of CBC data. Current Interpretive Data was last revised on 2018. Eosinophil pct 0.1 % [facility] Comment: Interpretive Data Percent cell count reference ranges are not reported, since discordance with absolute values may lead to misinterpretation of CBC data. Current Interpretive Data was last revised on 2018. Basophil pct 0.0 % [facility] Comment: Interpretive Data Percent cell count reference ranges are not reported, since discordance with absolute values may lead to misinterpretation of CBC data. Current Interpretive Data was last revised on 2018. Blood 11/26/2024 9:00 PM MANAGER WEB APPLICATION 11/26/2024 9:46 PM MANAGER WEB APPLICATION Manisha Williamson NP LAB BLOOD ORDERABLES Final Result [facility] Department [place] [address] * (ABNORMAL) Protime-INR (11/26/2024 9:00 PM MANAGER WEB APPLICATION) PT 30.8(H) 9.7 - 13.0 sec INR 2.79(H) 0.90 - 1.20 [facility] Comment: Interpretive data Oral anticoagulant therapeutic ranges: Venous thromboembolism prophylaxis or treatment: 2.0-3.0 CARDIOLOGY Standard range: 2.0-3.0 High-intensity range: 2.5-3.5 Refer to indication-specific guidelines for appropriate target ranges for prosthetic heart valve replacement. Current interpretive data was last revised on 2019. Blood 11/26/2024 9:00 PM MANAGER WEB APPLICATION 11/26/2024 9:50 PM MANAGER WEB APPLICATION Hesham Madsen MD LAB BLOOD ORDERABLES Final R esult Performing Organization Address City/[facility]/ZIP Co de Phone Number [facility] Department [place] [address] * (ABNORMAL) CBC with auto differential (11/26/2024 9:00 PM MANAGER WEB APPLICATION) WBC 9.6 3.8 - 9.9 K/cumm Hgb 9.6(L) 11.9 - 15.5 g/dL [facility] Hct 36.4 35.6 - 45.5 % [facility] Plt 450(H) 150 - 400 K/cumm [facility] MPV 10.8 9.1 - 12.3 fL [facility] RBC 4.31 3.90 - 5.20 M/cumm [facility] MCV 84.5 81.3 - 96.4 fL [facility] MCH 22.3(L) 27.1 - 33.3 pg [facility] MCHC 26.4(L) 32.3 - 35.7 g/dL [facility] RDW CV 23.5(H) 11.1 - 14.9 % [facility] RDW SD 71.5(H) 35.7 - 48.1 fL [facility] NRBC abs 0.02(H) 0.00 - 0.01 K/cumm [facility] Blood 11/26/2024 9:00 PM MANAGER WEB APPLICATION 11/26/2024 9:46 PM MANAGER WEB APPLICATION us Manisha Williamson NP LAB BLOOD ORDERABLES Final Result Performing Organization Address City/[facility]/ZIP Co de Phone Number [facility] Department [place] [address] * (ABNORMAL) Basic metabolic panel (11/26/2024 9:00 PM MANAGER WEB APPLICATION) [facility] Sodium 146(H) 135 - 145 mmol/L Potassium, pl 4.7 3.3 - 4.9 mmol/L [facility] Chloride 101 97 - 110 mmol/L [facility] CO2 37(H) 22 - 32 mmol/L [facility] Anion gap 8 2 - 15 mmol/L [facility] BUN 24 6 - 25 mg/dL [facility] Creatinine 0.55(L) 0.60 - 1.10 mg/dL [facility] Glucose 156 70 - 199 mg/dL [facility] Comment: Interpretive Data Fasting glucose >/= 126 [...] 2022. Calcium 8.8 8.5 - 10.3 mg/dL [facility] Blood 11/26/2024 9:00 PM MANAGER WEB APPLICATION 11/26/2024 9:50 PM MANAGER WEB APPLICATION Manisha Williamson NP LAB BLOOD ORDERABLES Final Result [facility] Department [place] [address] * (ABNORMAL) POCT glucose (11/26/2024 8:11 PM MANAGER WEB APPLICATION) [facility] Glucose, POC 232(H) 70 - 199 mg/dL Blood 11/26/2024 8:11 PM MANAGER WEB APPLICATION 11/26/2024 8:11 PM MANAGER WEB APPLICATION us Hesham Madsen MD LAB POCT ORDERABLES - DEVICE Final Result Performing Organization Address [facility] Co de Phone Number [facility] [place] [address] * POCT glucose (11/26/2024 4:58 PM MANAGER WEB APPLICATION) Glucose, POC 144 70 - 199 mg/dL Blood 11/26/2024 4:58 PM MANAGER WEB APPLICATION 11/26/2024 4:58 PM MANAGER WEB APPLICATION Hesham Madsen MD LAB POCT ORDERABLES - DEVICE Final Result Performing Organization Address [facility] Phone Number [facility] Department [place] [address] * (ABNORMAL) POCT glucose (11/26/2024 11:50 AM MANAGER WEB APPLICATION) Glucose, POC 273(H) 70 - 199 mg/dL Blood 11/26/2024 11:5 0 AM MANAGER WEB APPLICATION 11/26/2024 11:50 AM MANAGER WEB APPLICATION Result [facility] Hesham Madsen MD LAB POCT ORDERABLES - DEVICE Final Result Performing Organization Address [facility] de Phone Number [facility] Department [place] [address] * (ABNORMAL) POCT glucose (11/26/2024 9:56 AM MANAGER WEB APPLICATION) Glucose, POC 305(H) 70 - 199 mg/dL Blood 11/26/2024 9:56 AM MANAGER WEB APPLICATION 11/26/2024 9:56 AM MANAGER WEB APPLICATION us Hesham Madsen MD LAB POCT ORDERABLES - DEVICE Final Result Performing Organization Address [facility] Co de Phone Number [facility] [place] [address] * (ABNORMAL) POCT glucose (11/26/2024 8:08 AM MANAGER WEB APPLICATION) Glucose, POC 381(H) 70 - 199 mg/dL Blood 11/26/2024 8:08 AM MANAGER WEB APPLICATION 11/26/2024 8:08 AM MANAGER WEB APPLICATION Hesham Madsen MD LAB POCT ORDERABLES - DEVICE Final Result Performing Organization Address [facility] [place] [address] * POCT glucose (11/26/2024 4:08 AM MANAGER WEB APPLICATION) [facility] Signature Glucose, POC 164 70 - 199 mg/dL Blood 11/26/2024 4:08 AM MANAGER WEB APPLICATION 11/26/2024 4:08 AM MANAGER WEB APPLICATION Hseham Madsen MD LAB POCT ORDERABLES - DEVICE Final Result Performing Organization Address [facility] de Phone Number [facility] Department [place] [address] * (ABNORMAL) POCT glucose (11/26/2024 12:28 AM MANAGER WEB APPLICATION) [facility] Signature Glucose, POC 223(H) 70 - 199 mg/dL Blood 11/26/2024 12:2 8 AM MANAGER WEB APPLICATION 11/26/2024 12:28 AM MANAGER WEB APPLICATION Hesham Madsen MD LAB POCT ORDERABLES - DEVICE Final Result Performing Organization Address City/[facility] Co de Phone Number [facility] [place] [address] * (ABNORMAL) Urinalysis, microscopic only (11/26/2024 12:16 AM MANAGER WEB APPLICATION) WBC, ur 0-5 0 - 5 /HPF RBC, ur 3-5(A) 0 - 2 /HPF [facility] Epithelial cells, squamous, ur 1-5 0 - 5 /HPF [facility] Bacteria, ur Trace(A) [facility] Mucous, ur Present(A) [facility] Calcium oxalate crystals, ur 2+(A) [facility] Hyaline casts, ur 1-5 0 - 10 /LPF [facility] Culture Reflex Comment Reflex conditions for urine culture (WBC >10) not met. [facility] Urine 11/26/2024 12:1 6 AM MANAGER WEB APPLICATION 11/26/2024 1:20 AM MANAGER WEB APPLICATION Hesham Madsen MD LAB URINE ORDERABLES Final R esult [facility] [place] [address] * (ABNORMAL) Urinalysis reflex to microscopic and culture Urine (11/26/2024 12:16 AM MANAGER WEB APPLICATION) Color, ur Yellow Yellow Clarity, ur Clear Clear [facility] Specific gravity, ur 1.030 1.003 - 1.030 [facility] pH, urine 6.5 [facility] Comment: Interpretive Data U rine pH is affected by diet, medications, systemic acid-base disturbances, and renal tubular function. pH may affect urinary stone formation. For example, urine pH below 6.0 may help reduce the tendency for calcium phosphate stones and pH greater than 6.0 may reduce the tendency for uric acid stone formation. Source: [facility] [employer] Current Interpretive Data was last revised on 2017 Protein, ur ql 1+(A) Negative [facility] Glucose, ur ql 4+(A) Negative [facility] Ketones, ur Trace Negative [facility] Bilirubin, ur Negative Negative [facility] Blood, ur Negative Negative [facility] Urobilinogen, ur <2.0 <2.0 mg/dL [facility] Nitrite, ur Negative Negative [facility] Leukocyte esterase, ur 1+(A) Negative [facility] UA reflex comment Reflex to microscopic UA will be performed. [facility] Urine 11/26/2024 12:1 6 AM MANAGER WEB APPLICATION 11/26/2024 1:20 AM MANAGER WEB APPLICATION Hesham Madsen MD LAB MICROBIOLOGY - GENERAL O RDERABLES Final Result Performing Organization Address City/[facility] Co de Phone Number [facility] [place] [address] * eGFR (11/26/2024 12:10 AM MANAGER WEB APPLICATION) eGFR >90 >=60 mL/min/1. 73 m2 Comment: [...] reviewed 2021. Blood 11/26/2024 12:1 0 AM MANAGER WEB APPLICATION 11/26/2024 1:23 AM MANAGER WEB APPLICATION us Manisha Williamson NP LAB BLOOD ORDERABLES Final Result Performing Organization Address City/[facility]/ZIP Co de Phone Number [facility] Department [place] [address] * Differential, auto (11/26/2024 12:10 AM MANAGER WEB APPLICATION) Pathologist [facility] Neutrophil abs 6.0 1.5 - 6.5 K/cumm Imm gran abs 0.1 0.0 - 0.1 K/cumm [facility] Lymphocyte abs 1.3 0.8 - 3.3 K/cumm [facility] Monocyte abs 0.7 0.2 - 0.8 K/cumm [facility] Eosinophil abs 0.0 0.0 - 0.5 K/cumm [facility] Basophil abs 0.0 0.0 - 0.1 K/cumm [facility] Neutrophil pct 73.8 % [facility] Comment: Interpretive Data Percent cell count reference ranges are not reported, since discordance with absolute values may lead to misinterpretation of CBC data. Current Interpretive Data was last revised on 2018. Imm gran pct 1.2 % [facility] Comment: Interpretive Data Percent cell count reference ranges are not reported, since discordance with absolute values may lead to misinterpretation of CBC data. Current Interpretive Data was last revised on 2018. Lymphocyte pct 15.7 % [facility] Comment: Interpretive Data Percent cell count reference ranges are not reported, since discordance with absolute values may lead to misinterpretation of CBC data. Current Interpretive Data was last revised on 2018. Monocyte pct 9.1 % [facility] Comment: Interpretive Data Percent cell count reference ranges are not reported, since discordance with absolute values may lead to misinterpretation of CBC data. Current Interpretive Data was last revised on 2018. Eosinophil pct 0.1 % [facility] Comment: Interpretive Data Percent cell count reference ranges are not reported, since discordance with absolute values may lead to misinterpretation of CBC data. Current Interpretive Data was last revised on 2018. Basophil pct 0.1 % [facility] Comment: Interpretive Data Percent cell count reference ranges are not reported, since discordance with absolute values may lead to misinterpretation of CBC data. Current Interpretive Data was last revised on 2018. Blood 11/26/2024 12:1 0 AM MANAGER WEB APPLICATION 11/26/2024 1:23 AM MANAGER WEB APPLICATION Manisha Williamson NP LAB BLOOD ORDERABLES Final Result [facility] [place] [address] * (ABNORMAL) Protime-INR (11/26/2024 12:10 AM MANAGER WEB APPLICATION) [facility] PT 26.5(H) 9.7 - 13.0 sec INR 2.41(H) 0.90 - 1.20 [facility] Comment: Interpretive data Oral anticoagulant therapeutic ranges: Venous thromboembolism prophylaxis or treatment: 2.0-3.0 CARDIOLOGY Standard range: 2.0-3.0 High-intensity range: 2.5-3.5 Refer to indication-specific guidelines for appropriate target ranges for prosthetic heart valve replacement. Current interpretive data was last revised on 2019. Blood 11/26/2024 12:1 0 AM MANAGER WEB APPLICATION 11/26/2024 1:47 AM MANAGER WEB APPLICATION Hesham Madsen MD LAB BLOOD ORDERABLES Final R esult Performing Organization Address [facility] de Phone Number [facility] [place] [address] * (ABNORMAL) CBC with auto differential (11/26/2024 12:10 AM MANAGER WEB APPLICATION) [facility] WBC 8.1 3.8 - 9.9 K/cumm Hgb 9.2(L) 11.9 - 15.5 g/dL [facility] Hct 34.0(L) 35.6 - 45.5 % [facility] Plt 375 150 - 400 K/cumm [facility] MPV 10.2 9.1 - 12.3 fL [facility] RBC 4.10 3.90 - 5.20 M/cumm [facility] MCV 82.9 81.3 - 96.4 fL [facility] MCH 22.4(L) 27.1 - 33.3 pg [facility] MCHC 27.1(L) 32.3 - 35.7 g/dL [facility] RDW CV 24.0(H) 11.1 - 14.9 % [facility] RDW SD 71.1(H) 35.7 - 48.1 fL [facility] NRBC abs 0.00 0.00 - 0.01 K/cumm [facility] Blood 11/26/2024 12:1 0 AM MANAGER WEB APPLICATION 11/26/2024 1:23 AM MANAGER WEB APPLICATION Manisha Williamson NP LAB BLOOD ORDERABLES Final Result [facility] [place] [address] * (ABNORMAL) Basic metabolic panel (11/26/2024 12:10 AM MANAGER WEB APPLICATION) Sodium 146(H) 135 - 145 mmol/L Potassium, pl 3.0(L) 3.3 - 4.9 mmol/L [facility] Chloride 102 97 - 110 mmol/L [facility] CO2 37(H) 22 - 32 mmol/L [facility] Anion gap 7 2 - 15 mmol/L [facility] BUN 22 6 - 25 mg/dL [facility] Creatinine 0.65 0.60 - 1.10 mg/dL [facility] Glucose 201(H) 70 - 199 mg/dL [facility] Comment: Interpretive Data Fasting glucose >/= 126 [...] 2022. Calcium 8.8 8.5 - 10.3 mg/dL [facility] Blood 11/26/2024 12:1 0 AM MANAGER WEB APPLICATION 11/26/2024 1:23 AM MANAGER WEB APPLICATION Manihsa Williamson NP LAB BLOOD ORDERABLES Final Result Performing Organization Address [facility] de Phone Number [facility] [place] [address] * (ABNORMAL) POCT glucose (11/25/2024 10:40 PM MANAGER WEB APPLICATION) Glucose, POC 234(H) 70 - 199 mg/dL Blood 11/25/2024 10:4 0 PM MANAGER WEB APPLICATION 11/25/2024 10:40 PM MANAGER WEB APPLICATION Hesham Madsen MD LAB POCT ORDERABLES - DEVICE Final Result Performing Organization Address [facility] de Phone Number [facility] [place] [address] * (ABNORMAL) POCT glucose (11/25/2024 9:37 PM MANAGER WEB APPLICATION) Glucose, POC 287(H) 70 - 199 mg/dL Comment:Glu2: RN/MD Notified Glucose comment 1 Glu2: RN/MD Notified [facility] Blood 11/25/2024 9:37 PM MANAGER WEB APPLICATION 11/25/2024 9:37 PM MANAGER WEB APPLICATION Hesham Madsen MD LAB POCT ORDERABLES - DEVICE Final Result Performing Organization Address [facility] de Phone Number [facility] Department [place] [address] * (ABNORMAL) POCT glucose (11/25/2024 8:11 PM MANAGER WEB APPLICATION) Glucose, POC 351(H) 70 - 199 mg/dL Blood 11/25/2024 8:11 PM MANAGER WEB APPLICATION 11/25/2024 8:11 PM MANAGER WEB APPLICATION Hesham Madsen MD LAB POCT ORDERABLES - DEVICE Final Result Performing Organization Address [facility] Co de Phone Number [facility] [place] [address] * (ABNORMAL) POCT glucose (11/25/2024 5:09 PM MANAGER WEB APPLICATION) Glucose, POC 223(H) 70 - 199 mg/dL Blood 11/25/2024 5:09 PM MANAGER WEB APPLICATION 11/25/2024 5:09 PM MANAGER WEB APPLICATION Hesham Madsen MD LAB POCT ORDERABLES - DEVICE Final Result Performing Organization Address City/[facility] [place] [address] * (ABNORMAL) POCT glucose (11/25/2024 2:32 PM MANAGER WEB APPLICATION) Glucose, POC 270(H) 70 - 199 mg/dL Blood 11/25/2024 2:32 PM MANAGER WEB APPLICATION 11/25/2024 2:32 PM MANAGER WEB APPLICATION Hesham Madsen MD LAB POCT ORDERABLES - DEVICE Final Result Performing Organization Address City/[facility] [place] [address] * (ABNORMAL) POCT glucose (11/25/2024 11:40 AM MANAGER WEB APPLICATION) Glucose, POC 324(H) 70 - 199 mg/dL Blood 11/25/2024 11:4 0 AM MANAGER WEB APPLICATION 11/25/2024 11:40 AM MANAGER WEB APPLICATION Hesham Madsen MD LAB POCT ORDERABLES - DEVICE Final Result Performing Organization Address City/[facility]/ZIP Co de Phone Number [facility] [place] [address] * XR Chest 1 View (11/25/2024 9:35 AM MANAGER WEB APPLICATION) Anatomical Region Laterality Modality Body, Chest N/A Computed Radiogr aphy 11/25/2024 11:5 8 AM MANAGER WEB APPLICATION Impressions 11/25/2024 11:59 AM MANAGER WEB APPLICATION Comparison is made to radiograph dated 11/22/2024. [...] Nereyda Medeiros M.D. Narrative 11/25/2024 11:59 AM MANAGER WEB APPLICATION EXAMINATION: 1 view chest radiograph Procedure Note [...] signed by: Nereyda Medeiros M.D. Ines Purdy VETERINARY PARASITOLOGIST IMG XR PROCEDURES Fin al Result * (ABNORMAL) POCT glucose (11/25/2024 7:51 AM MANAGER WEB APPLICATION) Glucose, POC 221(H) 70 - 199 mg/dL Blood 11/25/2024 7:51 AM MANAGER WEB APPLICATION 11/25/2024 7:51 AM MANAGER WEB APPLICATION Hesham Madsen MD LAB POCT ORDERABLES - DEVICE Final Result Performing Organization Address City/[facility] Co de Phone Number [facility] Department [place] [address] * eGFR (11/24/2024 10:08 PM MANAGER WEB APPLICATION) eGFR 86 >=60 mL/min/1. 73 m2 Comment: [...] reviewed 2021. Blood 11/24/2024 10:0 8 PM MANAGER WEB APPLICATION 11/24/2024 10:46 PM MANAGER WEB APPLICATION us Manisha Williamson NP LAB BLOOD ORDERABLES Final Result Performing Organization Address City/[facility]/ZIP Co de Phone Number [facility] Department [place] [address] * (ABNORMAL) Differential, auto (11/24/2024 10:08 PM MANAGER WEB APPLICATION) Neutrophil abs 6.8(H) 1.5 - 6.5 K/cumm Imm gran abs 0.1 0.0 - 0.1 K/cumm [facility] Lymphocyte abs 1.2 0.8 - 3.3 K/cumm [facility] Monocyte abs 0.7 0.2 - 0.8 K/cumm [facility] Eosinophil abs 0.0 0.0 - 0.5 K/cumm [facility] Basophil abs 0.0 0.0 - 0.1 K/cumm [facility] Neutrophil pct 77.4 % [facility] Comment: Interpretive Data Percent cell count reference ranges are not reported, since discordance with absolute values may lead to misinterpretation of CBC data. Current Interpretive Data was last revised on 2018. Imm gran pct 1.2 % [facility] Comment: Interpretive Data Percent cell count reference ranges are not reported, since discordance with absolute values may lead to misinterpretation of CBC data. Current Interpretive Data was last revised on 2018. Lymphocyte pct 13.6 % [facility] Comment: Interpretive Data Percent cell count reference ranges are not reported, since discordance with absolute values may lead to misinterpretation of CBC data. Current Interpretive Data was last revised on 2018. Monocyte pct 7.6 % [facility] Comment: Interpretive Data Percent cell count reference ranges are not reported, since discordance with absolute values may lead to misinterpretation of CBC data. Current Interpretive Data was last revised on 2018. Eosinophil pct 0.1 % [facility] Comment: Interpretive Data Percent cell count reference ranges are not reported, since discordance with absolute values may lead to misinterpretation of CBC data. Current Interpretive Data was last revised on 2018. Basophil pct 0.1 % [facility] Comment: Interpretive Data Percent cell count reference ranges are not reported, since discordance with absolute values may lead to misinterpretation of CBC data. Current Interpretive Data was last revised on 2018. Blood 11/24/2024 10:0 8 PM MANAGER WEB APPLICATION 11/24/2024 10:46 PM MANAGER WEB APPLICATION us Manisha Williamson NP LAB BLOOD ORDERABLES Final Result [facility] Department [place] [address] * (ABNORMAL) Protime-INR (11/24/2024 10:08 PM MANAGER WEB APPLICATION) [facility] PT 22.3(H) 9.7 - 13.0 sec INR 2.04(H) 0.90 - 1.20 [facility] Comment: Interpretive data Oral anticoagulant therapeutic ranges: Venous thromboembolism prophylaxis or treatment: 2.0-3.0 CARDIOLOGY Standard range: 2.0-3.0 High-intensity range: 2.5-3.5 Refer to indication-specific guidelines for appropriate target ranges for prosthetic heart valve replacement. Current interpretive data was last revised on 2019. Blood 11/24/2024 10:0 8 PM MANAGER WEB APPLICATION 11/24/2024 10:42 PM MANAGER WEB APPLICATION Hesham Madsen MD LAB BLOOD ORDERABLES Final R esult [facility] Department [place] [address] * (ABNORMAL) CBC with auto differential (11/24/2024 10:08 PM MANAGER WEB APPLICATION) [facility] WBC 8.8 3.8 - 9.9 K/cumm Hgb 10.3(L) 11.9 - 15.5 g/dL [facility] Hct 38.0 35.6 - 45.5 % [facility] Plt 459(H) 150 - 400 K/cumm [facility] MPV 10.3 9.1 - 12.3 fL [facility] RBC 4.53 3.90 - 5.20 M/cumm [facility] MCV 83.9 81.3 - 96.4 fL [facility] MCH 22.7(L) 27.1 - 33.3 pg [facility] MCHC 27.1(L) 32.3 - 35.7 g/dL [facility] RDW CV 24.4(H) 11.1 - 14.9 % [facility] RDW SD 72.6(H) 35.7 - 48.1 fL [facility] NRBC abs 0.03(H) 0.00 - 0.01 K/cumm [facility] Blood 11/24/2024 10:0 8 PM MANAGER WEB APPLICATION 11/24/2024 10:46 PM MANAGER WEB APPLICATION Manisha Williamson NP LAB BLOOD ORDERABLES Final Result [facility] Department [place] [address] * (ABNORMAL) Basic metabolic panel (11/24/2024 10:08 PM MANAGER WEB APPLICATION) Pathologist [facility] Sodium 145 135 - 145 mmol/L Potassium, pl 3.8 3.3 - 4.9 mmol/L [facility] Chloride 97 97 - 110 mmol/L [facility] CO2 36(H) 22 - 32 mmol/L [facility] Anion gap 12 2 - 15 mmol/L [facility] BUN 28(H) 6 - 25 mg/dL [facility] Creatinine 0.78 0.60 - 1.10 mg/dL [facility] Glucose 243(H) 70 - 199 mg/dL [facility] Comment: Interpretive Data Fasting glucose >/= 126 [...] 2022. Calcium 9.0 8.5 - 10.3 mg/dL [facility] Blood 11/24/2024 10:0 8 PM MANAGER WEB APPLICATION 11/24/2024 10:46 PM MANAGER WEB APPLICATION Manisha Williamson NP LAB BLOOD ORDERABLES Final Result Performing Organization Address City/[facility]/[place] [address] * (ABNORMAL) POCT glucose (11/24/2024 7:52 PM MANAGER WEB APPLICATION) Glucose, POC 317(H) 70 - 199 mg/dL Comment:Glu2: RN/MD Notified Glucose comment 1 Glu2: RN/MD Notified [facility] Blood 11/24/2024 7:52 PM MANAGER WEB APPLICATION 11/24/2024 7:52 PM MANAGER WEB APPLICATION us Hesham Madsen MD LAB POCT ORDERABLES - DEVICE Final Result Performing Organization Address City/[facility]/[place] [address] * POCT glucose (11/24/2024 5:06 PM MANAGER WEB APPLICATION) Glucose, POC 136 70 - 199 mg/dL Blood 11/24/2024 5:06 PM MANAGER WEB APPLICATION 11/24/2024 5:06 PM MANAGER WEB APPLICATION us Hesham Madsen MD LAB POCT ORDERABLES - DEVICE Final Result Performing Organization Address City/[facility]/ZIP Co de Phone Number [facility] [place] [address] * POCT glucose (11/24/2024 4:01 PM MANAGER WEB APPLICATION) Glucose, POC 151 70 - 199 mg/dL Blood 11/24/2024 4:01 PM MANAGER WEB APPLICATION 11/24/2024 4:01 PM MANAGER WEB APPLICATION Result Stacie Madsen MD LAB POCT ORDERABLES - DEVICE Final Result Performing Organization Address City/[facility]/ZIP Co de Phone Number [facility] [place] [address] * (ABNORMAL) POCT glucose (11/24/2024 3:01 PM MANAGER WEB APPLICATION) Glucose, POC 242(H) 70 - 199 mg/dL Blood 11/24/2024 3:01 PM MANAGER WEB APPLICATION 11/24/2024 3:01 PM MANAGER WEB APPLICATION Hesham Madsen MD LAB POCT ORDERABLES - DEVICE Final Result Performing Organization Address City/[facility] Co de Phone Number [facility] Department [place] [address] * (ABNORMAL) POCT glucose (11/24/2024 1:57 PM MANAGER WEB APPLICATION) Glucose, POC 384(H) 70 - 199 mg/dL Blood 11/24/2024 1:57 PM MANAGER WEB APPLICATION 11/24/2024 1:57 PM MANAGER WEB APPLICATION Hesham Madsen MD LAB POCT ORDERABLES - DEVICE Final Result Performing Organization Address [facility] Co de Phone Number [facility] Department [place] [address] * (ABNORMAL) POCT glucose (11/24/2024 12:16 PM MANAGER WEB APPLICATION) Glucose, POC 305(H) 70 - 199 mg/dL Comment:Glu2: RN/MD Notified Glucose comment 1 Glu2: RN/MD Notified [facility] Blood 11/24/2024 12:1 6 PM MANAGER WEB APPLICATION 11/24/2024 12:16 PM MANAGER WEB APPLICATION Result [facility] us Hesham Madsen MD LAB POCT ORDERABLES - DEVICE Final Result Performing Organization Address City/[facility] Co de Phone Number [facility] [address] * (ABNORMAL) POCT glucose (11/24/2024 7:25 AM MANAGER WEB APPLICATION) [facility] Glucose, POC 231(H) 70 - 199 mg/dL Blood 11/24/2024 7:25 AM MANAGER WEB APPLICATION 11/24/2024 7:25 AM MANAGER WEB APPLICATION Hesham Madsen MD LAB POCT ORDERABLES - DEVICE Final Result Performing Organization Address City/[facility]/ZIP Co de Phone Number [facility] Department [place] [address] * eGFR (11/23/2024 10:31 PM MANAGER WEB APPLICATION) [facility] eGFR >90 >=60 mL/min/1. 73 m2 Comment: [...] reviewed 2021. Blood 11/23/2024 10:3 1 PM MANAGER WEB APPLICATION 11/23/2024 11:38 PM MANAGER WEB APPLICATION us Manisha Williamson NP LAB BLOOD ORDERABLES Final Result [facility] Department [place] [address] * Differential, auto (11/23/2024 10:31 PM MANAGER WEB APPLICATION) Neutrophil abs 5.7 1.5 - 6.5 K/cumm Imm gran abs 0.1 0.0 - 0.1 K/cumm [facility] Lymphocyte abs 1.3 0.8 - 3.3 K/cumm [facility] Monocyte abs 0.8 0.2 - 0.8 K/cumm [facility] Eosinophil abs 0.0 0.0 - 0.5 K/cumm [facility] Basophil abs 0.0 0.0 - 0.1 K/cumm [facility] Neutrophil pct 71.7 % [facility] Comment: Interpretive Data Percent cell count reference ranges are not reported, since discordance with absolute values may lead to misinterpretation of CBC data. Current Interpretive Data was last revised on 2018. Imm gran pct 1.4 % [facility] Comment: Interpretive Data Percent cell count reference ranges are not reported, since discordance with absolute values may lead to misinterpretation of CBC data. Current Interpretive Data was last revised on 2018. Lymphocyte pct 16.7 % [facility] Comment: Interpretive Data Percent cell count reference ranges are not reported, since discordance with absolute values may lead to misinterpretation of CBC data. Current Interpretive Data was last revised on 2018. Monocyte pct 10.1 % [facility] Comment: Interpretive Data Percent cell count reference ranges are not reported, since discordance with absolute values may lead to misinterpretation of CBC data. Current Interpretive Data was last revised on 2018. Eosinophil pct 0.1 % [facility] Comment: Interpretive Data Percent cell count reference ranges are not reported, since discordance with absolute values may lead to misinterpretation of CBC data. Current Interpretive Data was last revised on 2018. Basophil pct 0.0 % [facility] Comment: Interpretive Data Percent cell count reference ranges are not reported, since discordance with absolute values may lead to misinterpretation of CBC data. Current Interpretive Data was last revised on 2018. Blood 11/23/2024 10:3 1 PM MANAGER WEB APPLICATION 11/23/2024 11:39 PM MANAGER WEB APPLICATION Manisha Williamson NP LAB BLOOD ORDERABLES Final Result Performing Organization Address City/State/[facility] de Phone Number [facility] [place] [address] * (ABNORMAL) Protime-INR (11/23/2024 10:31 PM MANAGER WEB APPLICATION) [facility] PT 18.4(H) 9.7 - 13.0 sec INR 1.69(H) 0.90 - 1.20 [facility] Comment: Interpretive data Oral anticoagulant therapeutic ranges: Venous thromboembolism prophylaxis or treatment: 2.0-3.0 CARDIOLOGY Standard range: 2.0-3.0 High-intensity range: 2.5-3.5 Refer to indication-specific guidelines for appropriate target ranges for prosthetic heart valve replacement. Current interpretive data was last revised on 2019. Blood 11/23/2024 10:3 1 PM MANAGER WEB APPLICATION 11/23/2024 11:47 PM MANAGER WEB APPLICATION Hesham Madsen MD LAB BLOOD ORDERABLES Final R esult Performing Organization Address [facility] Co de Phone Number [facility] Department [place] [address] * (ABNORMAL) CBC with auto differential (11/23/2024 10:31 PM MANAGER WEB APPLICATION) [facility] WBC 7.9 3.8 - 9.9 K/cumm Hgb 9.3(L) 11.9 - 15.5 g/dL [facility] Hct 35.0(L) 35.6 - 45.5 % [facility] Plt 419(H) 150 - 400 K/cumm [facility] MPV 10.4 9.1 - 12.3 fL [facility] RBC 4.22 3.90 - 5.20 M/cumm [facility] MCV 82.9 81.3 - 96.4 fL [facility] MCH 22.0(L) 27.1 - 33.3 pg [facility] MCHC 26.6(L) 32.3 - 35.7 g/dL [facility] RDW CV 24.4(H) 11.1 - 14.9 % [facility] RDW SD 72.2(H) 35.7 - 48.1 fL [facility] NRBC abs 0.02(H) 0.00 - 0.01 K/cumm [facility] Blood 11/23/2024 10:3 1 PM MANAGER WEB APPLICATION 11/23/2024 11:39 PM MANAGER WEB APPLICATION Manisha Williamson NP LAB BLOOD ORDERABLES Final Result [facility] [place] [address] * (ABNORMAL) Basic metabolic panel (11/23/2024 10:31 PM MANAGER WEB APPLICATION) Sodium 148(H) 135 - 145 mmol/L Potassium, pl 3.7 3.3 - 4.9 mmol/L [facility] Chloride 103 97 - 110 mmol/L [facility] CO2 35(H) 22 - 32 mmol/L [facility] Anion gap 10 2 - 15 mmol/L [facility] BUN 22 6 - 25 mg/dL [facility] Creatinine 0.51(L) 0.60 - 1.10 mg/dL [facility] Glucose 185 70 - 199 mg/dL [facility] Comment: Interpretive Data Fasting glucose >/= 126 [...] 2022. Calcium 8.5 8.5 - 10.3 mg/dL [facility] Blood 11/23/2024 10:3 1 PM MANAGER WEB APPLICATION 11/23/2024 11:38 PM MANAGER WEB APPLICATION Manisha Williamson NP LAB BLOOD ORDERABLES Final Result Performing Organization Address City/[facility] Co de Phone Number [facility] [place] [address] * POCT glucose (11/23/2024 10:13 PM MANAGER WEB APPLICATION) Glucose, POC 175 70 - 199 mg/dL Blood 11/23/2024 10:1 3 PM MANAGER WEB APPLICATION 11/23/2024 10:13 PM MANAGER WEB APPLICATION Result [facility] Hesham Madsen MD LAB POCT ORDERABLES - DEVICE Final Result Performing Organization Address [facility] [place] [address] * (ABNORMAL) POCT glucose (11/23/2024 8:11 PM MANAGER WEB APPLICATION) Glucose, POC 205(H) 70 - 199 mg/dL Blood 11/23/2024 8:11 PM MANAGER WEB APPLICATION 11/23/2024 8:11 PM MANAGER WEB APPLICATION Result [facility] Hesham Madsen MD LAB POCT ORDERABLES - DEVICE Final Result Performing Organization Address [facility] Co de Phone Number [facility] [address] * (ABNORMAL) POCT glucose (11/23/2024 6:23 PM MANAGER WEB APPLICATION) Glucose, POC 363(H) 70 - 199 mg/dL Blood 11/23/2024 6:23 PM MANAGER WEB APPLICATION 11/23/2024 6:23 PM MANAGER WEB APPLICATION Result [facility] Hesham Madsen MD LAB POCT ORDERABLES - DEVICE Final Result Performing Organization Address City/[facility] Co de Phone Number [facility] [address] * (ABNORMAL) POCT glucose (11/23/2024 4:35 PM MANAGER WEB APPLICATION) Glucose, POC 340(H) 70 - 199 mg/dL Blood 11/23/2024 4:35 PM MANAGER WEB APPLICATION 11/23/2024 4:35 PM MANAGER WEB APPLICATION Hesham Madsen MD LAB POCT ORDERABLES - DEVICE Final Result Performing Organization Address City/[facility] Co de Phone Number [facility] [place] [address] * (ABNORMAL) POCT glucose (11/23/2024 4:34 PM MANAGER WEB APPLICATION) Glucose, POC 365(H) 70 - 199 mg/dL Blood 11/23/2024 4:34 PM MANAGER WEB APPLICATION 11/23/2024 4:34 PM MANAGER WEB APPLICATION Hesham Madsen MD LAB POCT ORDERABLES - DEVICE Final Result Performing Organization Address [facility] Co de Phone Number [facility] [address] * (ABNORMAL) POCT glucose (11/23/2024 12:28 PM MANAGER WEB APPLICATION) Glucose, POC 209(H) 70 - 199 mg/dL Blood 11/23/2024 12:2 8 PM MANAGER WEB APPLICATION 11/23/2024 12:28 PM MANAGER WEB APPLICATION Result [facility] Hesham Madsen MD LAB POCT ORDERABLES - DEVICE Final Result Performing Organization Address City/[facility] [facility] Co de Phone Number [facility] [place] [address] * (ABNORMAL) POCT glucose (11/23/2024 8:07 AM MANAGER WEB APPLICATION) Glucose, POC 227(H) 70 - 199 mg/dL Blood 11/23/2024 8:07 AM MANAGER WEB APPLICATION 11/23/2024 8:07 AM MANAGER WEB APPLICATION Hesham Madsen MD LAB POCT ORDERABLES - DEVICE Final Result [facility] [place] [address] * (ABNORMAL) POCT glucose (11/22/2024 8:03 PM MANAGER WEB APPLICATION) Glucose, POC 324(H) 70 - 199 mg/dL Blood 11/22/2024 8:03 PM MANAGER WEB APPLICATION 11/22/2024 8:03 PM MANAGER WEB APPLICATION Hesham Madsen MD LAB POCT ORDERABLES - DEVICE Final Result Performing Organization Address [facility] de Phone Number [facility] [place] [address] * Differential, auto (11/22/2024 7:05 PM MANAGER WEB APPLICATION) Neutrophil abs 6.0 1.5 - 6.5 K/cumm Imm gran abs 0.1 0.0 - 0.1 K/cumm [facility] Lymphocyte abs 0.9 0.8 - 3.3 K/cumm [facility] Monocyte abs 0.7 0.2 - 0.8 K/cumm [facility] Eosinophil abs 0.0 0.0 - 0.5 K/cumm [facility] Basophil abs 0.0 0.0 - 0.1 K/cumm [facility] Neutrophil pct 77.6 % [facility] Comment: Interpretive Data Percent cell count reference ranges are not reported, since discordance with absolute values may lead to misinterpretation of CBC data. Current Interpretive Data was last revised on 2018. Imm gran pct 1.2 % [facility] Comment: Interpretive Data Percent cell count reference ranges are not reported, since discordance with absolute values may lead to misinterpretation of CBC data. Current Interpretive Data was last revised on 2018. Lymphocyte pct 12.2 % [facility] Comment: Interpretive Data Percent cell count reference ranges are not reported, since discordance with absolute values may lead to misinterpretation of CBC data. Current Interpretive Data was last revised on 2018. Monocyte pct 8.8 % [facility] Comment: Interpretive Data Percent cell count reference ranges are not reported, since discordance with absolute values may lead to misinterpretation of CBC data. Current Interpretive Data was last revised on 2018. Eosinophil pct 0.1 % [facility] Comment: Interpretive Data Percent cell count reference ranges are not reported, since discordance with absolute values may lead to misinterpretation of CBC data. Current Interpretive Data was last revised on 2018. Basophil pct 0.1 % [facility] Comment: Interpretive Data Percent cell count reference ranges are not reported, since discordance with absolute values may lead to misinterpretation of CBC data. Current Interpretive Data was last revised on 2018. Blood 11/22/2024 7:05 PM MANAGER WEB APPLICATION 11/22/2024 8:14 PM MANAGER WEB APPLICATION Manisha Williamson NP LAB BLOOD ORDERABLES Final Result [facility] [place] [address] * (ABNORMAL) CBC with auto differential (11/22/2024 7:05 PM MANAGER WEB APPLICATION) WBC 7.7 3.8 - 9.9 K/cumm Hgb 9.6(L) 11.9 - 15.5 g/dL [facility] Hct 35.5(L) 35.6 - 45.5 % [facility] Plt 436(H) 150 - 400 K/cumm [facility] MPV 10.6 9.1 - 12.3 fL [facility] RBC 4.26 3.90 - 5.20 M/cumm [facility] MCV 83.3 81.3 - 96.4 fL [facility] MCH 22.5(L) 27.1 - 33.3 pg [facility] MCHC 27.0(L) 32.3 - 35.7 g/dL [facility] RDW CV 24.5(H) 11.1 - 14.9 % [facility] RDW SD 72.1(H) 35.7 - 48.1 fL [facility] NRBC abs 0.02(H) 0.00 - 0.01 K/cumm [facility] Blood 11/22/2024 7:05 PM MANAGER WEB APPLICATION 11/22/2024 8:14 PM MANAGER WEB APPLICATION Manisha Williamson NP LAB BLOOD ORDERABLES Final Result [facility] [place] [address] * (ABNORMAL) Basic metabolic panel (11/22/2024 7:04 PM MANAGER WEB APPLICATION) Sodium 145 135 - 145 mmol/L Potassium, pl 3.7 3.3 - 4.9 mmol/L [facility] Chloride 101 97 - 110 mmol/L [facility] CO2 32 22 - 32 mmol/L [facility] Anion gap 12 2 - 15 mmol/L [facility] BUN 22 6 - 25 mg/dL [facility] Creatinine 0.49(L) 0.60 - 1.10 mg/dL [facility] Glucose 314(H) 70 - 199 mg/dL [facility] Comment: Interpretive Data Fasting glucose >/= 126 [...] 2022. Calcium 8.3(L) 8.5 - 10.3 mg/dL [facility] Blood 11/22/2024 7:04 PM MANAGER WEB APPLICATION 11/22/2024 7:15 PM MANAGER WEB APPLICATION Hesham Madsen MD LAB BLOOD ORDERABLES Final R esult Performing Organization Address City/[facility] Co de Phone Number [facility] [place] [address] * eGFR (11/22/2024 7:04 PM MANAGER WEB APPLICATION) eGFR >90 >=60 mL/min/1. 73 m2 Comment: [...] last reviewed 2021. Blood 11/22/2024 7:04 PM MANAGER WEB APPLICATION 11/22/2024 7:27 PM MANAGER WEB APPLICATION Hesham Madsen MD LAB BLOOD ORDERABLES Final R esult Performing Organization Address City/[facility]/ZIP Co de Phone Number [facility] [place] [address] * aPTT (11/22/2024 7:04 PM MANAGER WEB APPLICATION) aPTT 31 28 - 38 sec Comment: Interpretive Data Heparin therapeutic range: 66.0 - 100.0 seconds. Range based on correlation with therapeutic heparin activity range of 0.3 - 0.7 Units/mL. Current interpretive data was last revised on 2023. Blood 11/22/2024 7:04 PM MANAGER WEB APPLICATION 11/22/2024 7:15 PM MANAGER WEB APPLICATION Hesham Madsen MD LAB BLOOD ORDERABLES Final R esult Performing Organization Address [facility] Co de Phone Number [facility] [place] [address] * (ABNORMAL) Troponin I high-sensitivity (11/22/2024 7:04 PM MANAGER WEB APPLICATION) Trop I hs 61(H) <=17 ng/L Comment: Interpretive Data For further hscTnI resources including the diagnostic algorithm and an aid in interpretation, copy and paste this link: https://bjhlab.testcatalog.org/show/[email or web address] Current Interpretive Data last revised 2020. Blood 11/22/2024 7:04 PM MANAGER WEB APPLICATION 11/22/2024 8:13 PM MANAGER WEB APPLICATION Lizett Contreras MD LAB BLOOD ORDERABLES Fin al Result Performing Organization Address [facility] de Phone Number [facility] [place] [address] * Phosphorus (11/22/2024 7:04 PM MANAGER WEB APPLICATION) Phosphorus, pl 2.5 2.3 - 4.5 mg/dL Blood 11/22/2024 7:04 PM MANAGER WEB APPLICATION 11/22/2024 7:15 PM MANAGER WEB APPLICATION Lizett Contreras MD LAB BLOOD ORDERABLES Fin al Result Performing Organization Address [facility] Co de Phone Number [facility] [place] [address] * Magnesium (11/22/2024 7:04 PM MANAGER WEB APPLICATION) Magnesium 2.0 1.4 - 2.5 mg/dL Blood 11/22/2024 7:04 PM MANAGER WEB APPLICATION 11/22/2024 7:15 PM MANAGER WEB APPLICATION Lizett Contreras MD LAB BLOOD ORDERABLES Fin al Result Performing Organization Address [facility] de Phone Number [facility] [place] [address] * Protime-INR (11/22/2024 7:04 PM MANAGER WEB APPLICATION) Pathologist [facility] PT 11.8 9.7 - 13.0 sec INR 1.09 0.90 - 1.20 [facility] Comment: Interpretive data Oral anticoagulant therapeutic ranges: Venous thromboembolism prophylaxis or treatment: 2.0-3.0 CARDIOLOGY Standard range: 2.0-3.0 High-intensity range: 2.5-3.5 Refer to indication-specific guidelines for appropriate target ranges for prosthetic heart valve replacement. Current interpretive data was last revised on 2019. Blood 11/22/2024 7:04 PM MANAGER WEB APPLICATION 11/22/2024 7:15 PM MANAGER WEB APPLICATION Result [facility] Hesham Madsen MD LAB BLOOD ORDERABLES Final R esult Performing Organization Address [facility] de Phone Number [facility] [place] [address] * (ABNORMAL) POCT glucose (11/22/2024 6:56 PM MANAGER WEB APPLICATION) Pathologist [facility] Glucose, POC 316(H) 70 - 199 mg/dL Blood 11/22/2024 6:56 PM MANAGER WEB APPLICATION 11/22/2024 6:56 PM MANAGER WEB APPLICATION Result [facility] Hesham Madsen MD LAB POCT ORDERABLES - DEVICE Final Result Performing Organization Address [facility] de Phone Number [facility] [place] [address] * (ABNORMAL) POCT glucose (11/22/2024 5:27 PM MANAGER WEB APPLICATION) Glucose, POC 225(H) 70 - 199 mg/dL Blood 11/22/2024 5:27 PM MANAGER WEB APPLICATION 11/22/2024 5:27 PM MANAGER WEB APPLICATION Hesham Madsen MD LAB POCT ORDERABLES - DEVICE Final Result [facility] Department [place] [address] * XR Chest 1 View (11/22/2024 3:32 PM MANAGER WEB APPLICATION) Anatomical Region Laterality Modality Body, Chest N/A Digital Radiogra phy 11/22/2024 4:33 PM MANAGER WEB APPLICATION Impressions 11/22/2024 5:43 PM MANAGER WEB APPLICATION Comparison is made to radiograph dated 11/09/2024. [...] Cesar Bryan M.D. Narrative 11/22/2024 5:43 PM MANAGER WEB APPLICATION EXAMINATION: 1 view chest radiograph Procedure Note [...] signed by: Cesar Bryan M.D. Manisha Williamson VETERINARY PARASITOLOGIST IMG XR PROCEDURES Fi nal Result * (ABNORMAL) POCT glucose (11/22/2024 2:42 PM MANAGER WEB APPLICATION) Glucose, POC 216(H) 70 - 199 mg/dL Blood 11/22/2024 2:42 PM MANAGER WEB APPLICATION 11/22/2024 2:42 PM MANAGER WEB APPLICATION Result [facility] Hesham Madsen MD LAB POCT ORDERABLES - DEVICE Final Result Performing Organization Address [facility]/ZIP Co de Phone Number [facility] [place] [address] * (ABNORMAL) POCT glucose (11/22/2024 11:57 AM MANAGER WEB APPLICATION) Glucose, POC 279(H) 70 - 199 mg/dL Blood 11/22/2024 11:5 7 AM MANAGER WEB APPLICATION 11/22/2024 11:57 AM MANAGER WEB APPLICATION Result [facility] Hesham Madsen MD LAB POCT ORDERABLES - DEVICE Final Result Performing Organization Address City/[facility] Co de Phone Number [facility] [place] [address] * POCT glucose (11/22/2024 8:10 AM MANAGER WEB APPLICATION) Glucose, POC 194 70 - 199 mg/dL Blood 11/22/2024 8:10 AM MANAGER WEB APPLICATION 11/22/2024 8:10 AM MANAGER WEB APPLICATION Hesham Madsen MD LAB POCT ORDERABLES - DEVICE Final Result Performing Organization Address City/[facility]/ZIP Co de Phone Number [facility] [place] [address] * (ABNORMAL) aPTT (11/22/2024 12:22 AM MANAGER WEB APPLICATION) aPTT 96(H) 28 - 38 sec Comment: Interpretive Data Heparin therapeutic range: 66.0 - 100.0 seconds. Range based on correlation with therapeutic heparin activity range of 0.3 - 0.7 Units/mL. Current interpretive data was last revised on 2023. Blood 11/22/2024 12:2 2 AM MANAGER WEB APPLICATION 11/22/2024 1:07 AM MANAGER WEB APPLICATION Narrative [facility] - 11/22/2024 1:18 AM MANAGER WEB APPLICATION STAT PTT timing: - Draw 6 hours [...] NP LAB BLOOD ORDERABLES Final Result [facility] [place] [address] * Critical Result Callback Hematology (2024 10:06 PM MANAGER WEB APPLICATION) Date Notified [id number] Time Notified 5 [facility] TestName aPTT [facility] Called/Read Back Bobbi Sherine GIFTYNER [facility] Credentials RAMYA CANALES [facility] Called By MONE CANALES [facility] Blood 2024 10:0 6 PM MANAGER WEB APPLICATION 2024 11:37 PM MANAGER WEB APPLICATION Manisha Williamson NP LAB BLOOD ORDERABLES Final Result Performing Organization Address City/[facility]/ZIP Co de Phone Number [facility] [place] [address] * eGFR (2024 10:06 PM MANAGER WEB APPLICATION) Pathologist [facility] eGFR >90 >=60 mL/min/1. 73 m2 Comment: [...] reviewed 2021. Blood 2024 10:0 6 PM MANAGER WEB APPLICATION 2024 11:26 PM MANAGER WEB APPLICATION Manisha Williamson NP LAB BLOOD ORDERABLES Final Result Performing Organization Address City/[facility]/ZIP Co de Phone Number [facility] [place] [address] * Differential, auto (2024 10:06 PM MANAGER WEB APPLICATION) Neutrophil abs 5.6 1.5 - 6.5 K/cumm Imm gran abs 0.1 0.0 - 0.1 K/cumm [facility] Lymphocyte abs 1.4 0.8 - 3.3 K/cumm [facility] Monocyte abs 0.8 0.2 - 0.8 K/cumm [facility] Eosinophil abs 0.0 0.0 - 0.5 K/cumm [facility] Basophil abs 0.0 0.0 - 0.1 K/cumm [facility] Neutrophil pct 70.1 % [facility] Comment: Interpretive Data Percent cell count reference ranges are not reported, since discordance with absolute values may lead to misinterpretation of CBC data. Current Interpretive Data was last revised on 2018. Imm gran pct 1.0 % [facility] Comment: Interpretive Data Percent cell count reference ranges are not reported, since discordance with absolute values may lead to misinterpretation of CBC data. Current Interpretive Data was last revised on 2018. Lymphocyte pct 17.9 % [facility] Comment: Interpretive Data Percent cell count reference ranges are not reported, since discordance with absolute values may lead to misinterpretation of CBC data. Current Interpretive Data was last revised on 2018. Monocyte pct 10.6 % [facility] Comment: Interpretive Data Percent cell count reference ranges are not reported, since discordance with absolute values may lead to misinterpretation of CBC data. Current Interpretive Data was last revised on 2018. Eosinophil pct 0.3 % [facility] Comment: Interpretive Data Percent cell count reference ranges are not reported, since discordance with absolute values may lead to misinterpretation of CBC data. Current Interpretive Data was last revised on 2018. Basophil pct 0.1 % [facility] Comment: Interpretive Data Percent cell count reference ranges are not reported, since discordance with absolute values may lead to misinterpretation of CBC data. Current Interpretive Data was last revised on 2018. Blood 2024 10:0 6 PM MANAGER WEB APPLICATION 2024 11:29 PM MANAGER WEB APPLICATION Manisha Nettie Greubel VETERINARY PARASITOLOGIST LAB BLOOD ORDERABLES Final Result Performing Organization Address [facility] de Phone Number [facility] [place] [address] * Protime-INR (2024 10:06 PM MANAGER WEB APPLICATION) PT 11.8 9.7 - 13.0 sec INR 1.09 0.90 - 1.20 [facility] Comment: Interpretive data Oral anticoagulant therapeutic ranges: Venous thromboembolism prophylaxis or treatment: 2.0-3.0 CARDIOLOGY Standard range: 2.0-3.0 High-intensity range: 2.5-3.5 Refer to indication-specific guidelines for appropriate target ranges for prosthetic heart valve replacement. Current interpretive data was last revised on 2019. Blood 2024 10:0 6 PM MANAGER WEB APPLICATION 2024 11:29 PM MANAGER WEB APPLICATION Hesham Madsen MD LAB BLOOD ORDERABLES Final R esult Performing Organization Address [facility] de Phone Number [facility] [place] [address] * (ABNORMAL) aPTT (2024 10:06 PM MANAGER WEB APPLICATION) aPTT >150(C) 28 - 38 sec Comment: No clot detected in sample.Repeated and verified. Interpretive Data Heparin therapeutic range: 66.0 - 100.0 seconds. Range based on correlation with therapeutic heparin activity range of 0.3 - 0.7 Units/mL. Current interpretive data was last revised on 2023. Blood 2024 10:0 6 PM MANAGER WEB APPLICATION 2024 11:29 PM MANAGER WEB APPLICATION Narrative [facility] - 11/22/2024 12:02 AM MANAGER WEB APPLICATION STAT PTT timing: - Draw 6 hours [...] BLOOD ORDERABLES Final Result Performing Organization Address City/[facility]/ZIP Co de Phone Number [facility] [place] [address] * (ABNORMAL) CBC with auto differential (2024 10:06 PM MANAGER WEB APPLICATION) [facility] WBC 8.0 3.8 - 9.9 K/cumm Hgb 9.2(L) 11.9 - 15.5 g/dL [facility] Hct 34.7(L) 35.6 - 45.5 % [facility] Plt 440(H) 150 - 400 K/cumm [facility] MPV 10.6 9.1 - 12.3 fL [facility] RBC 4.18 3.90 - 5.20 M/cumm [facility] MCV 83.0 81.3 - 96.4 fL [facility] MCH 22.0(L) 27.1 - 33.3 pg [facility] MCHC 26.5(L) 32.3 - 35.7 g/dL [facility] RDW CV 24.4(H) 11.1 - 14.9 % [facility] RDW SD 72.4(H) 35.7 - 48.1 fL [facility] NRBC abs 0.00 0.00 - 0.01 K/cumm [facility] Blood 2024 10:0 6 PM MANAGER WEB APPLICATION 2024 11:29 PM MANAGER WEB APPLICATION Manisha Williamson NP LAB BLOOD ORDERABLES Final Result Performing Organization Address City/[facility]/ZIP Co de Phone Number [facility] [place] [address] * (ABNORMAL) Basic metabolic panel (2024 10:06 PM MANAGER WEB APPLICATION) Sodium 146(H) 135 - 145 mmol/L Potassium, pl 3.8 3.3 - 4.9 mmol/L [facility] Chloride 105 97 - 110 mmol/L [facility] CO2 35(H) 22 - 32 mmol/L [facility] Anion gap 6 2 - 15 mmol/L [facility] BUN 19 6 - 25 mg/dL [facility] Creatinine 0.44(L) 0.60 - 1.10 mg/dL [facility] Glucose 182 70 - 199 mg/dL [facility] Comment: Interpretive Data Fasting glucose >/= 126 [...] 2022. Calcium 8.5 8.5 - 10.3 mg/dL [facility] Blood 2024 10:0 6 PM MANAGER WEB APPLICATION 2024 11:26 PM MANAGER WEB APPLICATION Manisha Williamson NP LAB BLOOD ORDERABLES Final Result [facility] [place] [address] * (ABNORMAL) POCT glucose (2024 7:21 PM MANAGER WEB APPLICATION) Pathologist [facility] Glucose, POC 352(H) 70 - 199 mg/dL Comment:Glu2: RN/ Notified Glucose comment 1 Glu2: RN/MD Notified [facility] Blood 2024 7:21 PM MANAGER WEB APPLICATION 2024 7:21 PM MANAGER WEB APPLICATION us Hesham Madsen MD LAB POCT ORDERABLES - DEVICE Final Result Performing Organization Address [facility] de Phone Number [facility] [place] [address] * (ABNORMAL) POCT glucose (2024 4:43 PM MANAGER WEB APPLICATION) Glucose, POC 281(H) 70 - 199 mg/dL Blood 2024 4:43 PM MANAGER WEB APPLICATION 2024 4:43 PM MANAGER WEB APPLICATION us Hesham Madsen MD LAB POCT ORDERABLES - DEVICE Final Result Performing Organization Address [facility] de Phone Number [facility] [place] [address] * (ABNORMAL) POCT glucose (2024 12:22 PM MANAGER WEB APPLICATION) Glucose, POC 211(H) 70 - 199 mg/dL Blood 2024 12:2 2 PM MANAGER WEB APPLICATION 2024 12:22 PM MANAGER WEB APPLICATION Result Stacie Madsen MD LAB POCT ORDERABLES - DEVICE Final Result Performing Organization Address [facility] [place] [address] * (ABNORMAL) POCT glucose (2024 8:06 AM MANAGER WEB APPLICATION) Glucose, POC 204(H) 70 - 199 mg/dL Blood 2024 8:06 AM MANAGER WEB APPLICATION 2024 8:06 AM MANAGER WEB APPLICATION us Hesham Madsen MD LAB POCT ORDERABLES - DEVICE Final Result Performing Organization Address [facility] Co de Phone Number [facility] [place] [address] * (ABNORMAL) POCT glucose (2024 3:35 AM MANAGER WEB APPLICATION) [facility] Glucose, POC 250(H) 70 - 199 mg/dL Comment:Glu2: RN/MD Notified Glucose comment 1 Glu2: RN/MD Notified [facility] Blood 2024 3:35 AM MANAGER WEB APPLICATION 2024 3:35 AM MANAGER WEB APPLICATION Hesham Madsen MD LAB POCT ORDERABLES - DEVICE Final Result Performing Organization Address [facility] Co de Phone Number [facility] [place] [address] * (ABNORMAL) POCT glucose (2024 12:12 AM MANAGER WEB APPLICATION) [facility] Glucose, POC 210(H) 70 - 199 mg/dL Blood 2024 12:1 2 AM MANAGER WEB APPLICATION 2024 12:12 AM MANAGER WEB APPLICATION Hesham Madsen MD LAB POCT ORDERABLES - DEVICE Final Result Performing Organization Address [facility] Co de Phone Number [facility] [place] [address] * eGFR (11/20/2024 10:13 PM MANAGER WEB APPLICATION) [facility] eGFR >90 >=60 mL/min/1. 73 m2 Comment: [...] reviewed 2021. Blood 11/20/2024 10:1 3 PM MANAGER WEB APPLICATION 11/20/2024 10:50 PM MANAGER WEB APPLICATION us Manisha Williamson NP LAB BLOOD ORDERABLES Final Result [facility] One [facility] [place] [address] * Differential, auto (11/20/2024 10:13 PM MANAGER WEB APPLICATION) Neutrophil abs 5.6 1.5 - 6.5 K/cumm Imm gran abs 0.1 0.0 - 0.1 K/cumm [facility] Lymphocyte abs 0.9 0.8 - 3.3 K/cumm [facility] Monocyte abs 0.6 0.2 - 0.8 K/cumm [facility] Eosinophil abs 0.0 0.0 - 0.5 K/cumm [facility] Basophil abs 0.0 0.0 - 0.1 K/cumm [facility] Neutrophil pct 77.4 % [facility] Comment: Interpretive Data Percent cell count reference ranges are not reported, since discordance with absolute values may lead to misinterpretation of CBC data. Current Interpretive Data was last revised on 2018. Imm gran pct 1.7 % [facility] Comment: Interpretive Data Percent cell count reference ranges are not reported, since discordance with absolute values may lead to misinterpretation of CBC data. Current Interpretive Data was last revised on 2018. Lymphocyte pct 12.3 % [facility] Comment: Interpretive Data Percent cell count reference ranges are not reported, since discordance with absolute values may lead to misinterpretation of CBC data. Current Interpretive Data was last revised on 2018. Monocyte pct 8.4 % [facility] Comment: Interpretive Data Percent cell count reference ranges are not reported, since discordance with absolute values may lead to misinterpretation of CBC data. Current Interpretive Data was last revised on 2018. Eosinophil pct 0.1 % [facility] Comment: Interpretive Data Percent cell count reference ranges are not reported, since discordance with absolute values may lead to misinterpretation of CBC data. Current Interpretive Data was last revised on 2018. Basophil pct 0.1 % [facility] Comment: Interpretive Data Percent cell count reference ranges are not reported, since discordance with absolute values may lead to misinterpretation of CBC data. Current Interpretive Data was last revised on 2018. Blood 11/20/2024 10:1 3 PM MANAGER WEB APPLICATION 11/20/2024 10:49 PM MANAGER WEB APPLICATION Manisha Williamson NP LAB BLOOD ORDERABLES Final Result Performing Organization Address City/[facility] de Phone Number [facility] [place] [address] * Protime-INR (11/20/2024 10:13 PM MANAGER WEB APPLICATION) PT 10.8 9.7 - 13.0 sec INR 1.00 0.90 - 1.20 [facility] Comment: Interpretive data Oral anticoagulant therapeutic ranges: Venous thromboembolism prophylaxis or treatment: 2.0-3.0 CARDIOLOGY Standard range: 2.0-3.0 High-intensity range: 2.5-3.5 Refer to indication-specific guidelines for appropriate target ranges for prosthetic heart valve replacement. Current interpretive data was last revised on 2019. Blood 11/20/2024 10:1 3 PM MANAGER WEB APPLICATION 11/20/2024 10:52 PM MANAGER WEB APPLICATION Hesham Madsen MD LAB BLOOD ORDERABLES Final R esult Performing Organization Address City/[facility]/ZIP Co de Phone Number [facility] Department [place] [address] * (ABNORMAL) Troponin I high-sensitivity 6-hour (11/20/2024 10:13 PM MANAGER WEB APPLICATION) Trop I hs 66(H) <=17 ng/L Comment: Interpretive Data For further hscTnI resources including the diagnostic algorithm and an aid in interpretation, copy and paste this link: https://bjhlab.testcatalog.org/show/hsTrop-1 Current Interpretive Data last revised 2020. Trop I hs delta See Comment ng/L [facility] Comment:Inappropriate collec tion time to report a delta. Trop I hs pct delta See Comment % [facility] Comment:Inappropriate collec tion time to report a delta. Trop I hs interp See Comment [facility] Comment:Inappropriate collec tion time to report a delta. Blood 11/20/2024 10:1 3 PM MANAGER WEB APPLICATION 11/20/2024 10:49 PM MANAGER WEB APPLICATION us Hesham Madsen MD LAB BLOOD ORDERABLES Final R esult [facility] Department [place] [address] * (ABNORMAL) aPTT (11/20/2024 10:13 PM MANAGER WEB APPLICATION) Pathologist [facility] aPTT 79(H) 28 - 38 sec Comment: Interpretive Data Heparin therapeutic range: 66.0 - 100.0 seconds. Range based on correlation with therapeutic heparin activity range of 0.3 - 0.7 Units/mL. Current interpretive data was last revised on 2023. Blood 11/20/2024 10:1 3 PM MANAGER WEB APPLICATION 11/20/2024 10:53 PM MANAGER WEB APPLICATION Narrative [facility] - 11/20/2024 11:02 PM MANAGER WEB APPLICATION STAT PTT timing: - Draw 6 hours [...] BLOOD ORDERABLES Final Result Performing Organization Address City/[facility] Co de Phone Number [facility] One [facility] Department [place] [address] * (ABNORMAL) CBC with auto differential (11/20/2024 10:13 PM MANAGER WEB APPLICATION) WBC 7.3 3.8 - 9.9 K/cumm Hgb 9.2(L) 11.9 - 15.5 g/dL [facility] Hct 34.6(L) 35.6 - 45.5 % [facility] Plt 372 150 - 400 K/cumm [facility] MPV 10.2 9.1 - 12.3 fL [facility] RBC 4.19 3.90 - 5.20 M/cumm [facility] MCV 82.6 81.3 - 96.4 fL [facility] MCH 22.0(L) 27.1 - 33.3 pg [facility] MCHC 26.6(L) 32.3 - 35.7 g/dL [facility] RDW CV 24.4(H) 11.1 - 14.9 % [facility] RDW SD 71.1(H) 35.7 - 48.1 fL [facility] NRBC abs 0.00 0.00 - 0.01 K/cumm [facility] Blood 11/20/2024 10:1 3 PM MANAGER WEB APPLICATION 11/20/2024 10:49 PM MANAGER WEB APPLICATION Manisha Williamson NP LAB BLOOD ORDERABLES Final Result [facility] Department [place] [address] * (ABNORMAL) Basic metabolic panel (11/20/2024 10:13 PM MANAGER WEB APPLICATION) Sodium 145 135 - 145 mmol/L Potassium, pl 3.2(L) 3.3 - 4.9 mmol/L [facility] Chloride 103 97 - 110 mmol/L [facility] CO2 34(H) 22 - 32 mmol/L [facility] Anion gap 8 2 - 15 mmol/L [facility] BUN 20 6 - 25 mg/dL [facility] Creatinine 0.49(L) 0.60 - 1.10 mg/dL [facility] Glucose 242(H) 70 - 199 mg/dL [facility] Comment: Interpretive Data Fasting glucose >/= 126 [...] 2022. Calcium 8.5 8.5 - 10.3 mg/dL [facility] Blood 11/20/2024 10:1 3 PM MANAGER WEB APPLICATION 11/20/2024 10:50 PM MANAGER WEB APPLICATION Manisha Williamson NP LAB BLOOD ORDERABLES Final Result [facility] Department [place] [address] * POCT glucose (11/20/2024 8:01 PM MANAGER WEB APPLICATION) Glucose, POC 191 70 - 199 mg/dL Blood 11/20/2024 8:01 PM MANAGER WEB APPLICATION 11/20/2024 8:01 PM MANAGER WEB APPLICATION us Hesham Madsen MD LAB POCT ORDERABLES - DEVICE Final Result Performing Organization Address City/[facility] [place] [address] * POCT glucose (11/20/2024 4:36 PM MANAGER WEB APPLICATION) Glucose, POC 197 70 - 199 mg/dL Blood 11/20/2024 4:36 PM MANAGER WEB APPLICATION 11/20/2024 4:36 PM MANAGER WEB APPLICATION Hesham Madsen MD LAB POCT ORDERABLES - DEVICE Final Result Performing Organization Address [facility] de Phone Number [facility] [place] [address] * (ABNORMAL) aPTT (11/20/2024 2:58 PM MANAGER WEB APPLICATION) aPTT 68(H) 28 - 38 sec Comment: Interpretive Data Heparin therapeutic range: 66.0 - 100.0 seconds. Range based on correlation with therapeutic heparin activity range of 0.3 - 0.7 Units/mL. Current interpretive data was last revised on 2023. Blood 11/20/2024 2:58 PM MANAGER WEB APPLICATION 11/20/2024 3:24 PM MANAGER WEB APPLICATION Narrative [facility] - 11/20/2024 3:46 PM MANAGER WEB APPLICATION STAT PTT timing: - Draw 6 hours [...] BLOOD ORDERABLES Final Result Performing Organization Address City/[facility] Co de Phone Number [facility] [place] [address] * (ABNORMAL) POCT glucose (11/20/2024 11:17 AM MANAGER WEB APPLICATION) [facility] Glucose, POC 276(H) 70 - 199 mg/dL Blood 11/20/2024 11:1 7 AM MANAGER WEB APPLICATION 11/20/2024 11:17 AM MANAGER WEB APPLICATION Result [facility] Hesham Madsen MD LAB POCT ORDERABLES - DEVICE Final Result Performing Organization Address [facility] [place] [address] * Protime-INR (11/20/2024 8:28 AM MANAGER WEB APPLICATION) [facility] PT 10.7 9.7 - 13.0 sec INR 0.99 0.90 - 1.20 [facility] Comment: Interpretive data Oral anticoagulant therapeutic ranges: Venous thromboembolism prophylaxis or treatment: 2.0-3.0 CARDIOLOGY Standard range: 2.0-3.0 High-intensity range: 2.5-3.5 Refer to indication-specific guidelines for appropriate target ranges for prosthetic heart valve replacement. Current interpretive data was last revised on 2019. Blood 11/20/2024 8:28 AM MANAGER WEB APPLICATION 11/20/2024 9:24 AM MANAGER WEB APPLICATION Result [facility] Hesham Madsen MD LAB BLOOD ORDERABLES Final R esult Performing Organization Address [facility] Co de Phone Number [facility] [place] [address] * (ABNORMAL) aPTT (11/20/2024 8:28 AM MANAGER WEB APPLICATION) [facility] aPTT 70(H) 28 - 38 sec Comment: Interpretive Data Heparin therapeutic range: 66.0 - 100.0 seconds. Range based on correlation with therapeutic heparin activity range of 0.3 - 0.7 Units/mL. Current interpretive data was last revised on 2023. Blood 11/20/2024 8:28 AM MANAGER WEB APPLICATION 11/20/2024 9:24 AM MANAGER WEB APPLICATION Narrative [facility] - 11/20/2024 9:46 AM MANAGER WEB APPLICATION STAT PTT timing: - Draw 6 hours [...] Williamson NP LAB BLOOD ORDERABLES Final Result [facility] Department [place] [address] * POCT glucose (11/20/2024 7:44 AM MANAGER WEB APPLICATION) [facility] Glucose, POC 180 70 - 199 mg/dL Blood 11/20/2024 7:44 AM MANAGER WEB APPLICATION 11/20/2024 7:44 AM MANAGER WEB APPLICATION Hesham Madsen MD LAB POCT ORDERABLES - DEVICE Final Result Performing Organization Address City/[facility]/ZIP Co de Phone Number [facility] Department [place] [address] * (ABNORMAL) CBC without differential (11/20/2024 2:16 AM MANAGER WEB APPLICATION) [facility] WBC 9.7 3.8 - 9.9 K/cumm Hgb 10.3(L) 11.9 - 15.5 g/dL [facility] Hct 37.5 35.6 - 45.5 % [facility] Plt 424(H) 150 - 400 K/cumm [facility] MPV 10.4 9.1 - 12.3 fL [facility] RBC 4.61 3.90 - 5.20 M/cumm [facility] MCV 81.3 81.3 - 96.4 fL [facility] MCH 22.3(L) 27.1 - 33.3 pg [facility] MCHC 27.5(L) 32.3 - 35.7 g/dL [facility] RDW CV 24.8(H) 11.1 - 14.9 % [facility] RDW SD 71.2(H) 35.7 - 48.1 fL [facility] NRBC abs 0.03(H) 0.00 - 0.01 K/cumm [facility] Blood 11/20/2024 2:1 6 AM MANAGER WEB APPLICATION 11/20/2024 2:59 AM MANAGER WEB APPLICATION Hesham Madsen MD LAB BLOOD ORDERABLES Final R esult [facility] Department [place] [address] * (ABNORMAL) Troponin I high-sensitivity 4-hour (11/20/2024 2:16 AM MANAGER WEB APPLICATION) [facility] Trop I hs 76(H) <=17 ng/L Comment: Interpretive Data For further [facility] resources including the diagnostic algorithm and an aid in interpretation, copy and paste this link: https://bjhlab.testcatalog.org/show/[email or web address] Current Interpretive Data last revised 2020. Trop I hs delta 7 ng/L [facility] Trop I hs interp Equivocal [facility] Blood 11/20/2024 2:16 AM MANAGER WEB APPLICATION 11/20/2024 2:59 AM MANAGER WEB APPLICATION Hesham Madsen MD LAB BLOOD ORDERABLES Final R esult Performing Organization Address City/[facility] Co de Phone Number [facility] [place] [address] * Critical result callback Cardio chemistry (11/20/2024 12:24 AM MANAGER WEB APPLICATION) Date Notified [id number] Time Notified 156 [facility] Test name Trop I hs 2hr d [facility] Called/Read Back Carina Sherine [facility] Credentials RN [facility] Called By RKM [facility] Blood 11/20/2024 12:2 4 AM MANAGER WEB APPLICATION 11/20/2024 12:52 AM MANAGER WEB APPLICATION Hesham Madsen MD LAB BLOOD ORDERABLES Final R esult Performing Organization Address City/[facility] Co de Phone Number [facility] [place] [address] * eGFR (11/20/2024 12:24 AM MANAGER WEB APPLICATION) eGFR >90 >=60 mL/min/1. 73 m2 Comment: [...] reviewed 2021. Blood 11/20/2024 12:2 4 AM MANAGER WEB APPLICATION 11/20/2024 12:51 AM MANAGER WEB APPLICATION Manisha Williamson NP LAB BLOOD ORDERABLES Final Result Performing Organization Address [facility] [place] [address] * (ABNORMAL) Troponin I high-sensitivity 2-hour (11/20/2024 12:24 AM MANAGER WEB APPLICATION) Trop I hs 55(H) <=17 ng/L Comment: Reviewed Interpretive Data For further hscTnI resources including the diagnostic algorithm and an aid in interpretation, copy and paste this link: https://bjhlab.testcatalog.org/show/hsTrop-1 Current Interpretive Data last revised 2020. Trop I hs delta -14(C) ng/L [facility] Comment:Reviewed Trop I hs interp Significa nt(C) [facility] Comment:Reviewed Blood 11/20/2024 12:2 4 AM MANAGER WEB APPLICATION 11/20/2024 12:52 AM MANAGER WEB APPLICATION Result [facility] Hesham Madsen MD LAB BLOOD ORDERABLES Final R esult Performing Organization Address [facility] [place] [address] * (ABNORMAL) aPTT (11/20/2024 12:24 AM MANAGER WEB APPLICATION) aPTT 45(H) 28 - 38 sec Comment: Interpretive Data Heparin therapeutic range: 66.0 - 100.0 seconds. Range based on correlation with therapeutic heparin activity range of 0.3 - 0.7 Units/mL. Current interpretive data was last revised on 2023. Blood 11/20/2024 12:2 4 AM MANAGER WEB APPLICATION 11/20/2024 12:58 AM MANAGER WEB APPLICATION Narrative [facility] - 11/20/2024 1:07 AM MANAGER WEB APPLICATION STAT PTT timing: - Draw 6 hours [...] Williamson NP LAB BLOOD ORDERABLES Final Result [facility] One [facility] Department [place] [address] * (ABNORMAL) Basic metabolic panel (11/20/2024 12:24 AM MANAGER WEB APPLICATION) Sodium 144 135 - 145 mmol/L Potassium, pl 3.8 3.3 - 4.9 mmol/L [facility] Chloride 105 97 - 110 mmol/L [facility] CO2 29 22 - 32 mmol/L [facility] Anion gap 10 2 - 15 mmol/L [facility] BUN 20 6 - 25 mg/dL [facility] Creatinine 0.60 0.60 - 1.10 mg/dL [facility] Glucose 277(H) 70 - 199 mg/dL [facility] Comment: Interpretive Data Fasting glucose >/= 126 [...] 2022. Calcium 8.7 8.5 - 10.3 mg/dL [facility] Blood 11/20/2024 12:2 4 AM MANAGER WEB APPLICATION 11/20/2024 12:51 AM MANAGER WEB APPLICATION Manisha Williamson NP LAB BLOOD ORDERABLES Final Result Performing Organization Address [facility] Co de Phone Number [facility] Department [place] [address] * (ABNORMAL) POCT glucose (11/19/2024 11:01 PM MANAGER WEB APPLICATION) Pathologist [facility] Glucose, POC 228(H) 70 - 199 mg/dL Blood 11/19/2024 11:0 1 PM MANAGER WEB APPLICATION 11/19/2024 11:01 PM MANAGER WEB APPLICATION Result [facility] Hesham Madsen MD LAB POCT ORDERABLES - DEVICE Final Result Performing Organization Address [facility] Phone Number [facility] [place] [address] * (ABNORMAL) Troponin I high-sensitivity series (baseline, 2hr, 4hr, 6hr) (11/19/2024 10:15 PM MANAGER WEB APPLICATION) [facility] Trop I hs 69(H) <=17 ng/L Comment: Interpretive Data For further hscTnI resources including the diagnostic algorithm and an aid in interpretation, copy and paste this link: https://bjhlab.testcatalog.org/show/hsTrop-1 Current Interpretive Data last revised 2020. Blood 11/19/2024 10:1 5 PM MANAGER WEB APPLICATION 11/19/2024 10:57 PM MANAGER WEB APPLICATION Result [facility] Hesham Madsen MD LAB BLOOD ORDERABLES Final R esult Performing Organization Address [facility] Co de Phone Number [facility] [place] [address] * ECG 12 lead (11/19/2024 10:11 PM MANAGER WEB APPLICATION) [facility] Ventricular Rate EKG/Min 96 BPM [facility] Atrial Rate 96 BPM [facility] NH-Interval (MSEC) 128 ms [facility] QRS-Interval (MSEC) 88 ms [facility] QT-Interval (MSEC) 406 ms [facility] QTc 512 ms [facility] P [place] 101 degrees [facility] R [place] -18 degrees [facility] T [place] 48 degrees [facility] Diagnosis Sinus rhythm with Premature atrial complexes Minimal voltage criteria for LVH, may be normal variant ( R in aVL ) Borderline ECG When compared with ECG of 23-AUG-2024 04:13, No significant change was found Confirmed by JANEEN RICHARDS M.D ([id number]) on 11/22/2024 6:07:10 PM [facility] 11/19/2024 10:1 1 PM MANAGER WEB APPLICATION 11/22/2024 6:07 PM MANAGER WEB APPLICATION Hesham Madsen MD ECG ORDERABLES Final Result [facility] * (ABNORMAL) POCT glucose (11/19/2024 7:20 PM MANAGER WEB APPLICATION) Pathologist [facility] Glucose, POC 218(H) 70 - 199 mg/dL Blood 11/19/2024 7:20 PM MANAGER WEB APPLICATION 11/19/2024 7:20 PM MANAGER WEB APPLICATION Result [facility] Hesham Madsen MD LAB POCT ORDERABLES - DEVICE Final Result [facility] One [facility] Department [place] [address] * (ABNORMAL) POCT glucose (11/19/2024 4:39 PM MANAGER WEB APPLICATION) Pathologist [facility] Glucose, POC 253(H) 70 - 199 mg/dL Blood 11/19/2024 4:39 PM MANAGER WEB APPLICATION 11/19/2024 4:39 PM MANAGER WEB APPLICATION Hesham Madsen MD LAB POCT ORDERABLES - DEVICE Final Result Performing Organization Address [facility] Co de Phone Number [facility] Department [place] [address] * aPTT (11/19/2024 3:39 PM MANAGER WEB APPLICATION) [facility] aPTT 32 28 - 38 sec Comment: Interpretive Data Heparin therapeutic range: 66.0 - 100.0 seconds. Range based on correlation with therapeutic heparin activity range of 0.3 - 0.7 Units/mL. Current interpretive data was last revised on 2023. Blood 11/19/2024 3:39 PM MANAGER WEB APPLICATION 11/19/2024 4:31 PM MANAGER WEB APPLICATION Narrative [facility] - 11/19/2024 4:40 PM MANAGER WEB APPLICATION STAT PTT timing: - Draw 6 hours [...] BLOOD ORDERABLES Final Result Performing Organization Address [facility] Co de Phone Number [facility] [place] [address] * (ABNORMAL) POCT glucose (11/19/2024 12:05 PM MANAGER WEB APPLICATION) [facility] Glucose, POC 289(H) 70 - 199 mg/dL Blood 11/19/2024 12:0 5 PM MANAGER WEB APPLICATION 11/19/2024 12:05 PM MANAGER WEB APPLICATION us Hesham Madsen MD LAB POCT ORDERABLES - DEVICE Final Result [facility] [place] [address] * (ABNORMAL) POCT glucose (11/19/2024 12:03 PM MANAGER WEB APPLICATION) [facility] Glucose, POC 335(H) 70 - 199 mg/dL Blood 11/19/2024 12:0 3 PM MANAGER WEB APPLICATION 11/19/2024 12:03 PM MANAGER WEB APPLICATION Hesham Madsen MD LAB POCT ORDERABLES - DEVICE Final Result Performing Organization Address [facility] Co de Phone Number [facility] [place] [address] * (ABNORMAL) Hemoglobin A1c (11/19/2024 8:52 AM MANAGER WEB APPLICATION) [facility] Hgb A1C 6.0(H) 4.0 - 5.6 % Estimated Average Glucose 126 mg/dL [facility] Comment: The ADA recommends reporting an estimated Average Glucose (eAG) with all Hemoglobin A1c results using the equation derived from a study of 507 normal and diabetic adults. Minority populations were underrepresented and children were not included. (Diabetes Care 2020; 43(S1): S66-S76). The eAG is not equivalent to a fasting glucose. Blood 11/19/2024 8:52 AM MANAGER WEB APPLICATION 11/19/2024 9:49 AM MANAGER WEB APPLICATION Narrative [facility] - 11/19/2024 4:17 PM MANAGER WEB APPLICATION reflex us Hesham Madsen MD LAB BLOOD ORDERABLES Final R esult Performing Organization Address City/[facility] Co de Phone Number [facility] [address] * eGFR (11/19/2024 8:52 AM MANAGER WEB APPLICATION) [facility] eGFR >90 >=60 mL/min/1. 73 m2 Comment: [...] last reviewed 2021. Blood 11/19/2024 8:52 AM MANAGER WEB APPLICATION 11/19/2024 9:45 AM MANAGER WEB APPLICATION Manisha Williamson NP LAB BLOOD ORDERABLES Final Result [facility] [place] [address] * (ABNORMAL) Differential, auto (11/19/2024 8:52 AM MANAGER WEB APPLICATION) Neutrophil abs 8.8(H) 1.5 - 6.5 K/cumm Imm gran abs 0.2(H) 0.0 - 0.1 K/cumm [facility] Lymphocyte abs 1.3 0.8 - 3.3 K/cumm [facility] Monocyte abs 0.9(H) 0.2 - 0.8 K/cumm [facility] Eosinophil abs 0.0 0.0 - 0.5 K/cumm [facility] Basophil abs 0.0 0.0 - 0.1 K/cumm [facility] Neutrophil pct 79.2 % [facility] Comment: Interpretive Data Percent cell count reference ranges are not reported, since discordance with absolute values may lead to misinterpretation of CBC data. Current Interpretive Data was last revised on 2018. Imm gran pct 1.3 % [facility] Comment: Interpretive Data Percent cell count reference ranges are not reported, since discordance with absolute values may lead to misinterpretation of CBC data. Current Interpretive Data was last revised on 2018. Lymphocyte pct 11.7 % [facility] Comment: Interpretive Data Percent cell count reference ranges are not reported, since discordance with absolute values may lead to misinterpretation of CBC data. Current Interpretive Data was last revised on 2018. Monocyte pct 7.6 % [facility] Comment: Interpretive Data Percent cell count reference ranges are not reported, since discordance with absolute values may lead to misinterpretation of CBC data. Current Interpretive Data was last revised on 2018. Eosinophil pct 0.0 % [facility] Comment: Interpretive Data Percent cell count reference ranges are not reported, since discordance with absolute values may lead to misinterpretation of CBC data. Current Interpretive Data was last revised on 2018. Basophil pct 0.2 % [facility] Comment: Interpretive Data Percent cell count reference ranges are not reported, since discordance with absolute values may lead to misinterpretation of CBC data. Current Interpretive Data was last revised on 2018. Blood 11/19/2024 8:52 AM MANAGER WEB APPLICATION 11/19/2024 9:45 AM MANAGER WEB APPLICATION Manisha Williamson NP LAB BLOOD ORDERABLES Final Result Performing Organization Address City/State/[facility] Co de Phone Number [facility] [place] [address] * (ABNORMAL) aPTT (11/19/2024 8:52 AM MANAGER WEB APPLICATION) aPTT 27(L) 28 - 38 sec Comment: Interpretive Data Heparin therapeutic range: 66.0 - 100.0 seconds. Range based on correlation with therapeutic heparin activity range of 0.3 - 0.7 Units/mL. Current interpretive data was last revised on 2023. Blood 11/19/2024 8:52 AM MANAGER WEB APPLICATION 11/19/2024 9:50 AM MANAGER WEB APPLICATION Narrative [facility] - 11/19/2024 10:00 AM MANAGER WEB APPLICATION Baseline prior to heparin initiation Manisha Williamson NP LAB BLOOD ORDERABLES Final Result Performing Organization Address [facility] [place] [address] * Protime-INR (11/19/2024 8:52 AM MANAGER WEB APPLICATION) Pathologist [facility] PT 10.2 9.7 - 13.0 sec INR 0.95 0.90 - 1.20 [facility] Comment: Interpretive data Oral anticoagulant therapeutic ranges: Venous thromboembolism prophylaxis or treatment: 2.0-3.0 CARDIOLOGY Standard range: 2.0-3.0 High-intensity range: 2.5-3.5 Refer to indication-specific guidelines for appropriate target ranges for prosthetic heart valve replacement. Current interpretive data was last revised on 2019. Blood 11/19/2024 8:52 AM MANAGER WEB APPLICATION 11/19/2024 9:50 AM MANAGER WEB APPLICATION Narrative [facility] - 11/19/2024 10:00 AM MANAGER WEB APPLICATION Baseline prior to heparin initiation Manisha Williamson NP LAB BLOOD ORDERABLES Final Result Performing Organization Address [facility] [place] [address] * (ABNORMAL) CBC with auto differential (11/19/2024 8:52 AM MANAGER WEB APPLICATION) Pathologist [facility] WBC 11.2(H) 3.8 - 9.9 K/cumm Hgb 9.8(L) 11.9 - 15.5 g/dL [facility] Hct 36.0 35.6 - 45.5 % [facility] Plt 418(H) 150 - 400 K/cumm [facility] MPV 10.4 9.1 - 12.3 fL [facility] RBC 4.52 3.90 - 5.20 M/cumm [facility] MCV 79.6(L) 81.3 - 96.4 fL [facility] MCH 21.7(L) 27.1 - 33.3 pg [facility] MCHC 27.2(L) 32.3 - 35.7 g/dL [facility] RDW CV 24.7(H) 11.1 - 14.9 % [facility] RDW SD 70.4(H) 35.7 - 48.1 fL [facility] NRBC abs 0.04(H) 0.00 - 0.01 K/cumm [facility] Blood 11/19/2024 8:52 AM MANAGER WEB APPLICATION 11/19/2024 9:45 AM MANAGER WEB APPLICATION Manisha Williamson NP LAB BLOOD ORDERABLES Final Result [facility] Department [place] [address] * (ABNORMAL) Basic metabolic panel (11/19/2024 8:52 AM MANAGER WEB APPLICATION) Sodium 145 135 - 145 mmol/L Potassium, pl 4.0 3.3 - 4.9 mmol/L [facility] Chloride 104 97 - 110 mmol/L [facility] CO2 30 22 - 32 mmol/L [facility] Anion gap 11 2 - 15 mmol/L [facility] BUN 18 6 - 25 mg/dL [facility] Creatinine 0.52(L) 0.60 - 1.10 mg/dL [facility] Glucose 241(H) 70 - 199 mg/dL [facility] Comment: Interpretive Data Fasting glucose >/= 126 [...] 2022. Calcium 9.4 8.5 - 10.3 mg/dL [facility] Blood 11/19/2024 8:52 AM MANAGER WEB APPLICATION 11/19/2024 9:45 AM MANAGER WEB APPLICATION Manisha Williamson NP LAB BLOOD ORDERABLES Final Result Performing Organization Address City/[facility]/ZIP Co de Phone Number [facility] Department [place] [address] * POCT glucose (11/19/2024 7:46 AM MANAGER WEB APPLICATION) Glucose, POC 147 70 - 199 mg/dL Blood 11/19/2024 7:46 AM MANAGER WEB APPLICATION 11/19/2024 7:46 AM MANAGER WEB APPLICATION Hesham Madsen MD LAB POCT ORDERABLES - DEVICE Final Result Performing Organization Address City/[facility] de Phone Number [facility] Department [place] [address] * eGFR (11/19/2024 4:37 AM MANAGER WEB APPLICATION) Pathologist [facility] eGFR >90 >=60 mL/min/1. 73 m2 Comment: [...] last reviewed 2021. Blood 11/19/2024 4:37 AM MANAGER WEB APPLICATION 11/19/2024 5:29 AM MANAGER WEB APPLICATION Hesham Madsen MD LAB BLOOD ORDERABLES Final R esult Performing Organization Address City/[facility] Co de Phone Number [facility] [place] [address] * (ABNORMAL) CBC without differential (11/19/2024 4:37 AM MANAGER WEB APPLICATION) WBC 9.2 3.8 - 9.9 K/cumm Hgb 9.0(L) 11.9 - 15.5 g/dL [facility] Hct 32.2(L) 35.6 - 45.5 % [facility] Plt 335 150 - 400 K/cumm [facility] MPV 10.1 9.1 - 12.3 fL [facility] RBC 4.07 3.90 - 5.20 M/cumm [facility] MCV 79.1(L) 81.3 - 96.4 fL [facility] MCH 22.1(L) 27.1 - 33.3 pg [facility] MCHC 28.0(L) 32.3 - 35.7 g/dL [facility] RDW CV 24.2(H) 11.1 - 14.9 % [facility] RDW SD 68.3(H) 35.7 - 48.1 fL [facility] NRBC abs 0.04(H) 0.00 - 0.01 K/cumm [facility] Blood 11/19/2024 4:37 AM MANAGER WEB APPLICATION 11/19/2024 5:29 AM MANAGER WEB APPLICATION Hesham Madsen MD LAB BLOOD ORDERABLES Final R esult [facility] [place] [address] * (ABNORMAL) Basic metabolic panel (11/19/2024 4:37 AM MANAGER WEB APPLICATION) Sodium 146(H) 135 - 145 mmol/L Potassium, pl 3.6 3.3 - 4.9 mmol/L [facility] Chloride 105 97 - 110 mmol/L [facility] CO2 32 22 - 32 mmol/L [facility] Anion gap 9 2 - 15 mmol/L [facility] BUN 19 6 - 25 mg/dL [facility] Creatinine 0.51(L) 0.60 - 1.10 mg/dL [facility] Glucose 175 70 - 199 mg/dL [facility] Comment: Interpretive Data Fasting glucose >/= 126 [...] 2022. Calcium 8.8 8.5 - 10.3 mg/dL [facility] Blood 11/19/2024 4:37 AM MANAGER WEB APPLICATION 11/19/2024 5:29 AM MANAGER WEB APPLICATION us Hesham Madsen MD LAB BLOOD ORDERABLES Final R esult Performing Organization Address City/[facility]/ZIP Co de Phone Number [facility] Department [place] [address] * POCT glucose (11/19/2024 2:58 AM MANAGER WEB APPLICATION) Glucose, POC 179 70 - 199 mg/dL Blood 11/19/2024 2:58 AM MANAGER WEB APPLICATION 11/19/2024 2:58 AM MANAGER WEB APPLICATION Hesham Madsen MD LAB POCT ORDERABLES - DEVICE Final Result Performing Organization Address [facility] Co de Phone Number [facility] [place] [address] * (ABNORMAL) POCT glucose (11/18/2024 10:55 PM MANAGER WEB APPLICATION) [facility] Glucose, POC 234(H) 70 - 199 mg/dL Comment:Glu2: RN/MD Notified Glucose comment 1 Glu2: RN/MD Notified [facility] Blood 11/18/2024 10:5 5 PM MANAGER WEB APPLICATION 11/18/2024 10:55 PM MANAGER WEB APPLICATION Hesham Madsen MD LAB POCT ORDERABLES - DEVICE Final Result [facility] [place] [address] * POCT glucose (11/18/2024 7:25 PM MANAGER WEB APPLICATION) [facility] Glucose, POC 160 70 - 199 mg/dL Blood 11/18/2024 7:25 PM MANAGER WEB APPLICATION 11/18/2024 7:25 PM MANAGER WEB APPLICATION Hesham Madsen MD LAB POCT ORDERABLES - DEVICE Final Result [facility] Department [place] [address] * (ABNORMAL) Differential, auto (11/18/2024 5:53 PM MANAGER WEB APPLICATION) [facility] Neutrophil abs 8.6(H) 1.5 - 6.5 K/cumm Imm gran abs 0.1 0.0 - 0.1 K/cumm [facility] Lymphocyte abs 1.1 0.8 - 3.3 K/cumm [facility] Monocyte abs 0.8 0.2 - 0.8 K/cumm [facility] Eosinophil abs 0.0 0.0 - 0.5 K/cumm [facility] Basophil abs 0.0 0.0 - 0.1 K/cumm [facility] Neutrophil pct 81.0 % [facility] Comment: Interpretive Data Percent cell count reference ranges are not reported, since discordance with absolute values may lead to misinterpretation of CBC data. Current Interpretive Data was last revised on 2018. Imm gran pct 1.2 % [facility] Comment: Interpretive Data Percent cell count reference ranges are not reported, since discordance with absolute values may lead to misinterpretation of CBC data. Current Interpretive Data was last revised on 2018. Lymphocyte pct 10.2 % [facility] Comment: Interpretive Data Percent cell count reference ranges are not reported, since discordance with absolute values may lead to misinterpretation of CBC data. Current Interpretive Data was last revised on 2018. Monocyte pct 7.4 % [facility] Comment: Interpretive Data Percent cell count reference ranges are not reported, since discordance with absolute values may lead to misinterpretation of CBC data. Current Interpretive Data was last revised on 2018. Eosinophil pct 0.0 % [facility] Comment: Interpretive Data Percent cell count reference ranges are not reported, since discordance with absolute values may lead to misinterpretation of CBC data. Current Interpretive Data was last revised on 2018. Basophil pct 0.2 % [facility] Comment: Interpretive Data Percent cell count reference ranges are not reported, since discordance with absolute values may lead to misinterpretation of CBC data. Current Interpretive Data was last revised on 2018. Blood 11/18/2024 5:53 PM MANAGER WEB APPLICATION 11/18/2024 6:08 PM MANAGER WEB APPLICATION Hesham Madsen MD LAB BLOOD ORDERABLES Final R esult [facility] Department [place] [address] * (ABNORMAL) CBC with auto differential (11/18/2024 5:53 PM MANAGER WEB APPLICATION) WBC 10.6(H) 3.8 - 9.9 K/cumm Hgb 8.9(L) 11.9 - 15.5 g/dL [facility] Hct 33.2(L) 35.6 - 45.5 % [facility] Plt 341 150 - 400 K/cumm [facility] MPV 9.9 9.1 - 12.3 fL [facility] RBC 4.05 3.90 - 5.20 M/cumm [facility] MCV 82.0 81.3 - 96.4 fL [facility] MCH 22.0(L) 27.1 - 33.3 pg [facility] MCHC 26.8(L) 32.3 - 35.7 g/dL [facility] RDW CV 23.8(H) 11.1 - 14.9 % [facility] RDW SD 71.2(H) 35.7 - 48.1 fL [facility] NRBC abs 0.04(H) 0.00 - 0.01 K/cumm [facility] Blood 11/18/2024 5:53 PM MANAGER WEB APPLICATION 11/18/2024 6:08 PM MANAGER WEB APPLICATION Hesham Madsen MD LAB BLOOD ORDERABLES Final R esult Performing Organization Address City/[facility]/ZIP Co de Phone Number [facility] Department [place] [address] * POCT glucose (11/18/2024 4:41 PM MANAGER WEB APPLICATION) [facility] Glucose, POC 195 70 - 199 mg/dL Blood 11/18/2024 4:41 PM MANAGER WEB APPLICATION 11/18/2024 4:41 PM MANAGER WEB APPLICATION Hesham Madsen MD LAB POCT ORDERABLES - DEVICE Final Result [facility] [place] [address] * Transfuse RBC (11/18/2024 3:42 PM MANAGER WEB APPLICATION) Blood Hesham Madsen MD BLOOD TRANSFUSION ORDERABLES Final Result [facility] [place] [address] * Transfuse RBC: 1 Units (11/18/2024 3:42 PM MANAGER WEB APPLICATION) Blood us Hesham Madsen MD BLOOD TRANSFUSION ORDERABLES Final Result * POCT glucose (11/18/2024 2:03 PM MANAGER WEB APPLICATION) Glucose, POC 101 70 - 199 mg/dL Blood 11/18/2024 2:03 PM MANAGER WEB APPLICATION 11/18/2024 2:03 PM MANAGER WEB APPLICATION Result Stacie Madsen MD LAB POCT ORDERABLES - DEVICE Final Result Performing Organization Address [facility] Co de Phone Number [facility] [place] [address] * POCT glucose (11/18/2024 1:15 PM MANAGER WEB APPLICATION) Glucose, POC 96 70 - 199 mg/dL Blood 11/18/2024 1:15 PM MANAGER WEB APPLICATION 11/18/2024 1:15 PM MANAGER WEB APPLICATION Result Stacie Madsen MD LAB POCT ORDERABLES - DEVICE Final Result Performing Organization Address City/[facility] Co de Phone Number [facility] [place] [address] * POCT glucose (11/18/2024 12:02 PM MANAGER WEB APPLICATION) Glucose, POC 138 70 - 199 mg/dL Blood 11/18/2024 12:0 2 PM MANAGER WEB APPLICATION 11/18/2024 12:02 PM MANAGER WEB APPLICATION us Hesham Madsen MD LAB POCT ORDERABLES - DEVICE Final Result Performing Organization Address City/[facility] Co de Phone Number [facility] [place] [address] * POCT glucose (11/18/2024 11:13 AM MANAGER WEB APPLICATION) Glucose, POC 164 70 - 199 mg/dL Blood 11/18/2024 11:1 3 AM MANAGER WEB APPLICATION 11/18/2024 11:13 AM MANAGER WEB APPLICATION Hesham Madsen MD LAB POCT ORDERABLES - [place] [address] * Type and screen (11/18/2024 10:26 AM MANAGER WEB APPLICATION) Heath, indirect Negative ABO Rh A Positive [facility] Blood 11/18/2024 10:2 6 AM MANAGER WEB APPLICATION 11/18/2024 10:49 AM MANAGER WEB APPLICATION Narrative [facility] - 11/18/2024 11:56 AM MANAGER WEB APPLICATION Has the patient had Daratumumab or Isatuximab in the past 6 months?->Unknown Hesham Madsen MD LAB BLOOD BANK TEST ORDERABL ES Final Result Performing Organization Address City/[facility] Co de Phone Number [facility] [place] [address] * (ABNORMAL) POCT glucose (11/18/2024 10:13 AM MANAGER WEB APPLICATION) Glucose, POC 207(H) 70 - 199 mg/dL Blood 11/18/2024 10:1 3 AM MANAGER WEB APPLICATION 11/18/2024 10:13 AM MANAGER WEB APPLICATION Hesham Madsen MD LAB POCT ORDERABLES - DEVICE Final Result [facility] [place] [address] * Prepare RBC: 1 Units (11/18/2024 9:58 AM MANAGER WEB APPLICATION) [facility] Product code [id number] Unit Number [id number] [facility] Product Blood Type APOS [facility] Dispense Status PRESUMED TRANSFUSED [facility] Blood 11/18/2024 9:58 AM MANAGER WEB APPLICATION 11/18/2024 9:58 AM MANAGER WEB APPLICATION Narrative [facility] - 11/19/2024 12:56 AM MANAGER WEB APPLICATION Are special requirements needed? (All products are leukoreduced and CMV- safe)- >No Date required:-[id number] LRRBC # of [id number] Reasons:-Cardiovascular disease, Hgb <8 g/dL} Hesham Madsen MD BLOOD BANK PRODUCT ORDERABLE S Final Result [facility] Department [place] [address] * (ABNORMAL) POC Blood Gas and Chemistries, Arterial - (11/18/2024 9:39 AM MANAGER WEB APPLICATION) [facility] pH, Art POC 7.51(H) 7.35 - 7.45 pCO2, Art POC 36 35 - 45 mmHg [facility] pO2, Art POC 122(H) 83 - 108 mmHg [facility] Na, POC 140 135 - 145 mmol/L [facility] K POC 4.3 3.3 - 4.9 mmol/L [facility] Comment: Interpretive Data Not all point of care methods assess for hemolysis. Confirm with instrument and retest K+ if not consistent with clinical signs and symptoms. Current Interpretive Data was last revised on 2024. Cl, POC 108 97 - 110 mmol/L [facility] Ionized Ca, POC 4.82 4.50 - 5.10 mg/dL [facility] Glucose, POC 197 70 - 199 mg/dL [facility] Lactate, POC 2.1(H) 0.7 - 2.0 mmol/L [facility] SO2 (jesus alberto) arterial 99(H) 90 - 95 % [facility] Base excess, POC 5.3 mmol/L [facility] HCO3, Art POC 29 20 - 30 mmol/L [facility] Hct, POC 23.0(L) 36.3 - 45.3 % [facility] Total Hb, POC 7.6(L) 11.9 - 15.5 g/dL [facility] Blood 11/18/2024 9:39 AM MANAGER WEB APPLICATION 11/18/2024 9:39 AM MANAGER WEB APPLICATION Hesham Madsen MD LAB POCT ORDERABLES - DEVICE Final Result Performing Organization Address City/[facility]/ZIP Co de Phone Number [facility] [place] [address] * (ABNORMAL) POCT glucose (11/18/2024 8:48 AM MANAGER WEB APPLICATION) Glucose, POC 239(H) 70 - 199 mg/dL Blood 11/18/2024 8:48 AM MANAGER WEB APPLICATION 11/18/2024 8:48 AM MANAGER WEB APPLICATION Hesham Madsen MD LAB POCT ORDERABLES - DEVICE Final Result Performing Organization Address City/[facility]/ZIP Co de Phone Number [facility] Department [place] [address] * POCT glucose (11/18/2024 6:37 AM MANAGER WEB APPLICATION) Glucose, POC 183 70 - 199 mg/dL Blood 11/18/2024 6:37 AM MANAGER WEB APPLICATION 11/18/2024 6:37 AM MANAGER WEB APPLICATION Hesham Madsen MD LAB POCT ORDERABLES - DEVICE Final Result Performing Organization Address City/[facility]/ZIP Co de Phone Number [facility] [place] [address] documented in this encounter Visit Diagnoses Diagnosis Acute on chronic systolic congestive heart failure (CMS/HCC) (HCC)- Primary Acute on chronic systolic congestive heart failure (CMS/HCC) ([facility]) Atrial thrombus Other ill-defined heart disease Uncontrolled type 2 diabetes mellitus with hyperglycemia (HCC) Type 2 diabetes mellitus with hyperlipidemia (HCC) Essential hypertension Unspecified essential hypertension Chronic combined systolic and diastolic congestive heart failure (CMS/HCC) (HCC) Atrial fibrillation (CMS/HCC) ([facility]) Atrial fibrillation Atrial thrombus Other ill-defined heart disease Chronic respiratory failure with hypoxia ([facility]) ([facility]) Chronic pain syndrome Hypothyroidism, unspecified Debility Unspecified debility Hypokalemia Hypopotassemia Discharge planning issues documented in this encounter Admitting Diagnoses Diagnosis 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) Chronic combined systolic and diastolic heart failure Heart failure (HCC) Unspecified heart failure Acute on chronic systolic congestive heart failure ([facility]) ([facility]) documented in this encounter Administered Medications Active Administered Medications - up to 3 most recent administrations Medication Order MAR Action Action Date Dose Rate Site acetaminophen (TYLENOL) tablet 650 mg 650 mg, oral, Every 6 hours, First dose on Fri11/18/24 at 1045, Phase I & Post-op Floor Given 11/30/2024 12:32 PM MANAGER WEB APPLICATION 650 mg Given 11/30/2024 5:03 AM MANAGER WEB APPLICATION 650 mg Given 11/29/2024 11:56 PM MANAGER WEB APPLICATION 650 mg amiodarone (PACERONE) tablet 200 mg 200 mg, oral, Daily, First dose on Fri11/19/24 at 0900 Given 11/30/2024 8:38 AM MANAGER WEB APPLICATION 200 mg Given 11/29/2024 8:15 AM MANAGER WEB APPLICATION 200 mg Given 11/28/2024 8:43 AM MANAGER WEB APPLICATION 200 mg aspirin enteric coated tablet 81 mg 81 mg, oral, Daily, First dose on Fri11/18/24 at 1745, Do not crush, chew, cut, dissolve, open or otherwise manipulate tablet/capsule. Given 11/30/2024 8:38 AM MANAGER WEB APPLICATION 81 mg Given 11/29/2024 8:14 AM MANAGER WEB APPLICATION 81 mg Given 11/28/2024 8:43 AM MANAGER WEB APPLICATION 81 mg atorvastatin (LIPITOR) tablet 20 mg 20 mg, oral, Daily, First dose on Sammi 11/18/24 at 1745 Given 11/30/2024 8:39 AM MANAGER WEB APPLICATION 20 mg Given 11/29/2024 8:15 AM MANAGER WEB APPLICATION 20 mg Given 11/28/2024 8:42 AM MANAGER WEB APPLICATION 20 mg buprenorphine (BUTRANS) 10 mcg/hour patch weekly 1 patch 1 patch, transdermal, Administer over 7 Days, Weekly, First dose on 11/20/24 at 0900 Medication Applied 11/26/2024 12:21 PM MANAGER WEB APPLICATION 1 patch Back Medication Applied 11/20/2024 8:22 AM MANAGER WEB APPLICATION 1 patch Back calcium carbonate (TUMS) chewable tablet 500 mg 500 mg (200 mg of elemental calcium), oral, 3 times daily PRN, indigestion, heartburn, Starting on 11/29/24 at 0638 Given 11/29/2024 7:22 AM MANAGER WEB APPLICATION 500 mg cyclobenzaprine (FLEXERIL) tablet 10 mg 10 mg, oral, 3 times daily PRN, muscle spasms, Starting on Sammi 11/18/24 at 1006, Phase I & Post-op Floor Given 11/30/2024 2:40 PM MANAGER WEB APPLICATION 10 mg Given 11/30/2024 3:01 AM MANAGER WEB APPLICATION 10 mg Given 11/29/2024 8:27 PM MANAGER WEB APPLICATION 10 mg dextrose (D10W) 10% bolus 250 mL 250 mL, intravenous, at 1,000 mL/hr, Administer over 15 Minutes, Every 15 min PRN, blood glucose less than 70 mg/dL and UNABLE to swallow/take PO glucose/juice., Starting on Fri11/22/24 at 2031, After treatment for hypoglycemia, recheck BG followed by treatment every 15 minutes until the BG is greater than 100 mg/dL. Then check BG 1 hour post treatment. If BG is less than 100 mg/dL, repeat Q15 minute BG checks and treatment. Call MD for each episode of hypoglycemia., Indications: hypoglycemic disorderIndications:hypoglycemic disorder dextrose gel in packet 15 g 15 g, oral, Every 15 min PRN, low blood sugar, blood glucose less than 70 mg/dL, Starting on Fri11/22/24 at 2031, If patient is alert and able to eat/drink, give 15 gm glucose or one juice (4 fluid ounces) NOT ORANGE JUICE. After treatment for hypoglycemia, recheck BG followed by treatment every 15 minutes until the BG is greater than 100 mg/dL. Then check BG 1 hour post-treatment. If BG is less than 100 mg/dL, repeat Q15 minute BG checks and treatment. Call MD for each episode of hypoglycemia., Indications: hypoglycemic disorderIndications:hypoglycemic disorder DULoxetine DR (CYMBALTA) extended release capsule 60 mg 60 mg, oral, Daily, First dose on Fri11/18/24 at 1745, Capsule may be opened and contents mixed with applesauce or apple juice ONLY. Do not crush or chew capsule Given 11/30/2024 8:38 AM MANAGER WEB APPLICATION 60 mg Given 11/29/2024 8:15 AM MANAGER WEB APPLICATION 60 mg Given 11/28/2024 8:42 AM MANAGER WEB APPLICATION 60 mg furosemide (LASIX) tablet 20 mg 20 mg, oral, Daily, First dose on Fri11/24/24 at 1600 Given 11/29/2024 4:06 PM MANAGER WEB APPLICATION 20 mg Given 11/28/2024 5:10 PM MANAGER WEB APPLICATION 20 mg Given 11/27/2024 4:37 PM MANAGER WEB APPLICATION 20 mg furosemide (LASIX) tablet 40 mg 40 mg, oral, Daily, First dose (after last modification) on Fri11/25/24 at 0900 Given 11/30/2024 9:34 AM MANAGER WEB APPLICATION 40 mg Given 11/29/2024 8:14 AM MANAGER WEB APPLICATION 40 mg Given 11/28/2024 8:43 AM MANAGER WEB APPLICATION 40 mg glucagon injection 1 mg 1 mg, intramuscular, Every 30 min PRN, low blood sugar, blood glucose less than 70 mg/dL AND no IV access AND unable to take PO glucose/juice., Starting on Fri11/22/24 at 2031, After Glucagon is administered, position patient on side if possible to avoid aspiration. Obtain IV access. Follow glucagon treatment with glucose treatment or IV dextrose. After treatment for hypoglycemia, recheck BG followed by treatment every 15 minutes until the BG is greater than 100 mg/dL. Then check BG 1 hour post treatment. If BG is less than 100 mg/dL, repeat Q15 minute BG checks and treatment. Call MD for each episode of hypoglycemia. Reconstitute 1 mg vial with 1 mL SWFI. Use immediately following reconstitution. insulin glargine (LANTUS, SEMGLEE) 100 unit/mL injection 27 Units 27 Units, subcutaneous, Every morning, First dose (after last modification) on Fri11/28/24 at 0900, Do not mix with other insulins, Indications: Diabetes MellitusIndications:Diabetes Mellitus Given 11/30/2024 8:37 AM MANAGER WEB APPLICATION 27 Units Right Upper Arm Given 11/29/2024 8:18 AM MANAGER WEB APPLICATION 27 Units Ri ght Upper Arm Given 11/28/2024 8:43 AM MANAGER WEB APPLICATION 27 Units Le ft Upper Arm insulin lispro (HumaLOG, ADMELOG) 100 unit/mL injection 0-10 Units 0-10 Units, subcutaneous, 3 times daily with meals, First dose on Fri11/23/24 at 0800, Blood glucose mg/dL: 149 or less: No insulin 150-199: add 2 unit 200-249: add 4 units 250-299: add 6 units 300-349: add 8 units and notify physician for adjustment of insulin orders. 350-399: add 10 units and notify physician for adjustment of insulin orders. Over 400: Notify physician for adjustment of insulin orders. Do NOT hold for NPO Status, Indications: Diabetes MellitusIndications:Diabetes Mellitus Given 11/30/2024 8:36 AM MANAGER WEB APPLICATION 4 Units Right Upper Arm Given 11/29/2024 12:22 PM MANAGER WEB APPLICATION 2 Units R ight Upper Arm Given 11/28/2024 12:00 PM MANAGER WEB APPLICATION 6 Units R ight Upper Arm insulin lispro (HumaLOG, ADMELOG) 100 unit/mL injection 0-5 Units 0-5 Units, subcutaneous, Nightly, First dose on Fri11/22/24 at 2115, Blood glucose mg/dL: 149 or less: No insulin 150-199: add 1 unit 200-249: add 2 units 250-299: add 3 units 300-349: add 4 units and notify physician for adjustment of insulin orders. 350-399: add 5 units and notify physician for adjustment of insulin orders. Over 400: Notify physician for adjustment of insulin orders. Do NOT hold for NPO Status, Indications: Diabetes MellitusIndications:Diabetes Mellitus Given 11/29/2024 9:58 PM MANAGER WEB APPLICATION 2 Units Left Upper Arm Given 11/27/2024 8:58 PM MANAGER WEB APPLICATION 2 Units Ri ght Upper Arm Given 11/26/2024 8:49 PM MANAGER WEB APPLICATION 2 Units Le ft Lower Abdomen insulin lispro (HumaLOG, ADMELOG) 100 unit/mL injection 20 Units 20 Units, subcutaneous, 3 times daily with meals, First dose (after last modification) on 11/27/24 at 1800, If BG greater than or equal to 100 mg/dL, give dose with meals when tray arrives in the room. If BG less than 100 mg/dL or history of poor intake, give after meals. If patient eating less than 50% of meal, call MD for holding or reducing meal insulin dose. Hold prandial insulin if NPO, unable to eat, or if BG less than 70 mg/dL., Indications: Diabetes MellitusIndications:Diabetes Mellitus Given 11/30/2024 12:32 PM MANAGER WEB APPLICATION 20 Units Righ t Upper Arm Given 11/30/2024 8:36 AM MANAGER WEB APPLICATION 20 Units Ri ght Upper Arm Given 11/29/2024 5:56 PM MANAGER WEB APPLICATION 20 Units Le ft Upper Abdomen insulin lispro (HumaLOG, ADMELOG) 100 unit/mL injection 9 Units 9 Units, subcutaneous, Every 4 hours PRN, other, Snacks greater than 20 grams of carbohydrate, Starting on Fri11/30/24 at 0951, Give as needed for snacks greater than 20 grams of carbohydrates. Hold prandial insulin if NPO, unable to eat, or if BG less than 70 mg/dL., Indications: Diabetes MellitusIndications:Diabetes Mellitus Given 11/30/2024 2:40 PM MANAGER WEB APPLICATION 9 Units Left Lower Abdomen levothyroxine (SYNTHROID) tablet 125 mcg 125 mcg, oral, Daily, First dose on Fri11/19/24 at 0600, Administer on an empty stomach, preferably 30 minutes before breakfast. Take 4 hours apart from antacids, iron and calcium products. Separate from tube feeds, if applicable. Given 11/30/2024 5:03 AM MANAGER WEB APPLICATION 125 mcg Given 11/29/2024 5:16 AM MANAGER WEB APPLICATION 125 mcg Given 11/28/2024 5:36 AM MANAGER WEB APPLICATION 125 mcg metoprolol tartrate immediate release capsule 12.5 mg 12.5 mg, oral, 2 times daily, First dose on Fri11/18/24 at 2100 Given 11/29/2024 8:28 PM MANAGER WEB APPLICATION 12.5 mg Given 11/29/2024 8:14 AM MANAGER WEB APPLICATION 12.5 mg Given 11/28/2024 8:14 PM MANAGER WEB APPLICATION 12.5 mg midodrine (PROAMATINE) tablet 10 mg 10 mg, oral, 3 times daily before meals, First dose on Fri11/18/24 at 1745 Given 11/30/2024 12:32 PM MANAGER WEB APPLICATION 10 mg Given 11/30/2024 8:38 AM MANAGER WEB APPLICATION 10 mg Given 11/29/2024 5:56 PM MANAGER WEB APPLICATION 10 mg mirtazapine (REMERON RAOUL-TAB) disintegrating tablet 15 mg 15 mg, oral, Nightly, First dose on Fri11/22/24 at 2100, If administering by mouth, place tablet on tongue and allow to dissolve. Given 11/29/2024 8:2 7 PM MANAGER WEB APPLICATION 15 mg Given 11/28/2024 8:14 PM MANAGER WEB APPLICATION 15 mg Given 11/27/2024 8:28 PM MANAGER WEB APPLICATION 15 mg ondansetron (ZOFRAN) tablet 4 mg 4 mg, oral, Every 8 hours PRN, nausea, vomiting, Starting on Fri11/18/24 at 1704 Given 11/26/2024 8:54 AM MANAGER WEB APPLICATION 4 m g Given 11/24/2024 5:24 PM MANAGER WEB APPLICATION 4 mg Given 11/24/2024 9:48 AM MANAGER WEB APPLICATION 4 mg oxyCODONE (ROXICODONE) tablet 10 mg 10 mg, oral, Every 6 hours PRN, 1st line for pain, Starting on Fri11/18/24 at 1006, Phase I & Post-op Floor Given 11/30/2024 2:40 PM MANAGER WEB APPLICATION 10 mg Given 11/30/2024 9:34 AM MANAGER WEB APPLICATION 10 mg Given 11/30/2024 2:12 AM MANAGER WEB APPLICATION [address] (PROTONIX) extended release tablet 40 mg 40 mg, oral, Daily, First dose on Fri11/19/24 at 0900, Do not crush, chew, cut, dissolve, open or otherwise manipulate tablet/capsule., Indications: Treatment of Non-Bleeding Gastric DisorderIndications:Treatment of Non-Bleeding Gastric Disorder Given 11/30/2024 8:39 AM MANAGER WEB APPLICATION 40 mg Given 11/29/2024 8:15 AM MANAGER WEB APPLICATION 40 mg Given 11/28/2024 8:42 AM MANAGER WEB APPLICATION 40 mg polyethylene glycol (MIRALAX) packet 17 g 17 g, oral, Daily, First dose on Fri11/24/24 at 1400, Indications: constipationIndications:constipation Given 11/27/2024 8:48 AM MANAGER WEB APPLICATION 17 g Given 11/25/2024 8:52 AM MANAGER WEB APPLICATION 17 g polyvinyl alcohol-povidone (REFRESH CLASSIC) 1.4-0.6 % ophthalmic solution 2 drop 2 drop, each eye, 4 times daily PRN, dry eyes, Starting on Fri11/24/24 at 0952 Given 11/26/2024 4:40 PM MANAGER WEB APPLICATION 2 drop s Given 11/24/2024 1:00 PM MANAGER WEB APPLICATION 2 drops Given 11/24/2024 11:35 AM MANAGER WEB APPLICATION 2 drops pregabalin (LYRICA) capsule 75 mg 75 mg, oral, 2 times daily, First dose on Fri11/18/24 at 2100 Given 11/30/2024 8:38 AM MANAGER WEB APPLICATION 75 mg Given 11/29/2024 8:27 PM MANAGER WEB APPLICATION 75 mg Given 11/29/2024 8:14 AM MANAGER WEB APPLICATION 75 mg rizatriptan [employer] (MAXALT-GLASS LO[employer]ING EQUIPMENT TENDER) disintegrating tablet 10 mg 10 mg, sublingual, Every 2 hours PRN, migraine, repeat 2h if unresolved, do not exceed 30mg in 24h, Starting on Fri11/20/24 at 0921, May repeat dose once in 2 hours if unresolved. Do not exceed 30 mg in 24 hours. If administering by mouth, place tablet on tongue and allow to dissolve., Indications: MigraineIndications:Migraine Given 11/27/2024 4:14 AM MANAGER WEB APPLICATION 10 mg Given 11/20/2024 6:03 PM MANAGER WEB APPLICATION 10 mg Given 11/20/2024 12:44 PM MANAGER WEB APPLICATION 10 mg rOPINIRole (REQUIP) tablet 0.25 mg 0.25 mg, oral, Nightly, First dose on Fri11/18/24 at 2100 Given 11/29/2024 8:28 PM MANAGER WEB APPLICATION 0.25 mg Given 11/28/2024 8:14 PM MANAGER WEB APPLICATION 0.25 mg Given 11/27/2024 8:29 PM MANAGER WEB APPLICATION 0.25 mg sacubitriL-valsartan (ENTRESTO) 24-26 mg tablet 0.5 tablet 0.5 tablet, oral, 2 times daily, First dose on Fri11/19/24 at 0900 Given 11/30/2024 8:39 AM MANAGER WEB APPLICATION 0.5 tablets Given 11/29/2024 8:27 PM MANAGER WEB APPLICATION 0.5 tablets Given 11/29/2024 8:14 AM MANAGER WEB APPLICATION 0.5 tablets senna-docusate (PERICOLACE) 8.6-50 mg per tablet 1 tablet 1 tablet, oral, 2 times daily, First dose on Fri11/24/24 at 1400 Given 11/30/2024 8:39 AM MANAGER WEB APPLICATION 1 tablet Given 11/29/2024 8:28 PM MANAGER WEB APPLICATION 1 tablet Given 11/27/2024 8:49 AM MANAGER WEB APPLICATION 1 tablet sodium chloride 0.9% flush 0.5-20 mL 0.5-20 mL, intra-catheter, Every 8 hours scheduled (alternate), First dose on [facility] 11/18/24 at 1745, Flush volume based on line type and size. Given 11/29/2024 11:56 PM MANAGER WEB APPLICATION 10 mL Given 11/29/2024 8:20 AM MANAGER WEB APPLICATION 10 mL Given 11/29/2024 12:05 AM MANAGER WEB APPLICATION 10 mL spironolactone (ALDACTONE) tablet 25 mg 25 mg, oral, Daily, First dose on Fri11/19/24 at 0900 Given 11/29/2024 8:15 AM MANAGER WEB APPLICATION 25 mg Given 11/28/2024 8:43 AM MANAGER WEB APPLICATION 25 mg Given 11/27/2024 8:49 AM MANAGER WEB APPLICATION 25 mg warfarin (COUMADIN) tablet 3 mg 3 mg, oral, Daily (for warfarin), First dose (after last modification) on Fri11/30/24 at 1800, Target INR: 2 - 2.5, Indications: LV thrombusIndications:LV thrombus Inactive Administered Medications - up to 3 most recent administrations Medication Order MAR Action Action Date Dose Rate Site ceFAZolin (ANCEF) 2,000 mg/20 mL in sterile water (premix) 2,000 mg 2,000 mg, intravenous, at 400 mL/hr, Administer over 3 Minutes, Every 8 hours, First dose on [facility] 11/18/24 at 1800, For 2 doses, Start 8 hours after pre-op dose., Indications: Prophylaxis, SurgicalIndications:Prophyl axis, Surgical Given 11/19/2024 2:42 AM MANAGER WEB APPLICATION 2,000 mg 400 mL/hr Given 11/18/2024 6:14 PM MANAGER WEB APPLICATION 2,000 mg 400 mL/hr enoxaparin (LOVENOX) syringe 60 mg 60 mg (rounded from 62.1 mg = 1 mg/kg 62.1 kg), subcutaneous, Every 12 hours scheduled, First dose on Fri11/22/24 at 0930, Indications: Venous ThrombosisIndications:Venous Thrombosis Given 11/24/2024 8:34 PM MANAGER WEB APPLICATION 60 mg Left Lower Abdomen Given 11/24/2024 8:34 AM MANAGER WEB APPLICATION 60 mg Le ft Lower Abdomen Given 11/23/2024 8:28 PM MANAGER WEB APPLICATION 60 mg Le ft Lower Abdomen furosemide (LASIX) 10 mg/mL injection 20 mg 20 mg, intravenous, Administer over 1 Minutes, Once, On Fri11/19/24 at 0000, For 1 dose, For IV push: administer doses < 160 mg at a rate of 20 -40 mg/min. Doses >/= 160 mg should be administered no faster than 4 mg/min. Room temperature only Given 11/18/2024 11:28 PM MANAGER WEB APPLICATION 20 mg furosemide (LASIX) 10 mg/mL injection 20 mg 20 mg, intravenous, Once, On Fri11/19/24 at 1615, For 1 dose, For IV push: administer doses < 160 mg at a rate of 20 -40 mg/min. Doses >/= 160 mg should be administered no faster than 4 mg/min. Room temperature only Given 11/19/2024 4:3 1 PM MANAGER WEB APPLICATION 20 mg furosemide (LASIX) 10 mg/mL injection 40 mg 40 mg, intravenous, Once, On Fri11/22/24 at 1530, For 1 dose, For IV push: administer doses < 160 mg at a rate of 20 -40 mg/min. Doses >/= 160 mg should be administered no faster than 4 mg/min. Room temperature only Given 11/22/2024 2:5 8 PM MANAGER WEB APPLICATION 40 mg furosemide (LASIX) tablet 40 mg 40 mg, oral, Daily, First dose on [facility] 11/18/24 at 1745 Given 11/22/2024 8:47 AM MANAGER WEB APPLICATION 40 mg Given 2024 8:14 AM MANAGER WEB APPLICATION 40 mg Given 11/20/2024 8:23 AM MANAGER WEB APPLICATION 40 mg furosemide (LASIX) tablet 40 mg 40 mg, oral, 2 times daily (for diuretics), First dose (after last modification) on Fri11/23/24 at 0900 Given 11/24/2024 8:33 AM MANAGER WEB APPLICATION 40 mg Given 11/23/2024 4:10 PM MANAGER WEB APPLICATION 40 mg Given 11/23/2024 8:54 AM MANAGER WEB APPLICATION 40 mg haloperidol (HALDOL) injection 0.5 mg 0.5 mg, intravenous, Once as needed, nausea, vomiting, Starting on [facility] 11/18/24 at 1005, For 1 dose, Phase I, If nausea/vomiting not relieved by ondansetron within 30 minutes or if ondansetron has been given within the last 6 hours. Given 11/18/2024 11:00 AM MANAGER WEB APPLICATION 0.5 mg heparin 1,000 unit/mL injection 3,000 Units 3,000 Units, intravenous, Every 6 hours PRN, PTT less than 46 seconds, Starting on Fri11/19/24 at 0723, Subsequent bolus during heparin infusion., Indications: Venous ThrombosisIndications:Ve nous Thrombosis Given 11/19/2024 5:26 PM MANAGER WEB APPLICATION 3,000 Units heparin in 0.45% sodium chloride 25,000 units/250 mL (100 units/mL) infusion (premix) 0-33 Units/kg/hr 62.1 kg (0-20.493 mL/hr, rounded to 0-20.49 mL/hr), intravenous, Titrated, Starting on Fri11/19/24 at 0800, WEIGHT-BASED HEPARIN INFUSION Begin infusion at dose of : 12 Units/kg/hr Max initial dose: 1,000 units/hr Titration Instructions- Adjust dose based on PTT Results STAT PTT timing: - Draw 6 hours after heparin infusion initiation - Draw 6 hours after every dose change until 2 consecutive PTTs are therapeutic - Once 2 consecutive PTTs are therapeutic, draw with daily labs until infusion is discontinued - - Restart every 6 hour lab draws and follow instructions accordingly if PTT is outside of therapeutic range PTT results: PTT less than 46 seconds: Bolus if ordered (see PRN bolus order) , then INCREASE infusion dose by 3 (THREE) units/kg/hour PTT 46 - 55 seconds: Bolus if ordered (see PRN bolus order), then INCREASE infusion dose by 2 (TWO) units/kg/hour PTT 56 - 65 seconds: No bolus, INCREASE infusion dose by 1 (ONE) unit/kg/hour PTT 66 - 100 seconds (therapeutic): No change PTT 101 - 110 seconds: No bolus, DECREASE infusion dose by 1 (ONE) unit/kg/hour PTT 111 - 120 seconds: Hold infusion for 30 minutes, then DECREASE infusion dose by 2 (TWO) units/kg/hour PTT greater than 120 seconds: Hold infusion for 1 hour, then DECREASE infusion dose by 3 (THREE) units/kg/hour, Indications: Venous ThrombosisIndications:Ve nous Thrombosis Rate/Dose Verify 2024 7:29 PM MANAGER WEB APPLICATION 18 Units/kg/hr 11.18 mL/hr New Bag 2024 11:09 AM MANAGER WEB APPLICATION 18 Units/kg/hr 11.18 mL /hr Rate/Dose Verify 11/20/2024 7:21 PM MANAGER WEB APPLICATION 18 Units/kg/hr 11. 18 mL/hr insulin glargine (LANTUS, SEMGLEE) 100 unit/mL injection 10 Units 10 Units, subcutaneous, Every morning, First dose on Fri11/19/24 at 0900, Do not mix with other insulins, Indications: Diabetes MellitusIndications:Diabetes Mellitus Given 11/19/2024 8:22 AM MANAGER WEB APPLICATION 10 Units Left Lower Abdomen insulin glargine (LANTUS, SEMGLEE) 100 unit/mL injection 20 Units 20 Units, subcutaneous, Every morning, First dose (after last modification) on Fri11/20/24 at 0900, Do not mix with other insulins, Indications: Diabetes MellitusIndications:Diabetes Mellitus Given 2024 8:15 AM MANAGER WEB APPLICATION 20 Units Left Lower Abdomen Given 11/20/2024 8:22 AM MANAGER WEB APPLICATION 20 Units Le ft Upper Arm insulin glargine (LANTUS, SEMGLEE) 100 unit/mL injection 22 Units 22 Units, subcutaneous, Every morning, First dose (after last modification) on Fri11/22/24 at 0900, Do not mix with other insulins, Indications: Diabetes MellitusIndications:Diabetes Mellitus Given 11/22/2024 8:57 AM MANAGER WEB APPLICATION 22 Units Left Upper Arm insulin glargine (LANTUS, SEMGLEE) 100 unit/mL injection 25 Units 25 Units, subcutaneous, Every morning, First dose (after last modification) on Fri11/23/24 at 0900, Do not mix with other insulins, Indications: Diabetes MellitusIndications:Diabetes Mellitus Given 11/24/2024 8:36 AM MANAGER WEB APPLICATION 25 Units Left Upper Arm Given 11/23/2024 8:54 AM MANAGER WEB APPLICATION 25 Units Le ft Lower Abdomen insulin glargine (LANTUS, SEMGLEE) 100 unit/mL injection 30 Units 30 Units, subcutaneous, Every morning, First dose (after last modification) on Fri11/25/24 at 0900, Do not mix with other insulins, Indications: Diabetes MellitusIndications:Diabetes Mellitus Given 11/27/2024 8:48 AM MANAGER WEB APPLICATION 30 Units Left Lower Abdomen Given 11/26/2024 8:06 AM MANAGER WEB APPLICATION 30 Units Le ft Upper Arm Given 11/25/2024 8:52 AM MANAGER WEB APPLICATION 30 Units Le ft Lower Abdomen insulin lispro (HumaLOG, ADMELOG) 100 unit/mL injection 0-10 Units 0-10 Units, subcutaneous, 3 times daily with meals, First dose on Fri11/19/24 at 1300, Blood glucose mg/dL: 149 or less: No insulin 150-199: add 2 unit 200-249: add 4 units 250-299: add 6 units 300-349: add 8 units and notify physician for adjustment of insulin orders. 350-399: add 10 units and notify physician for adjustment of insulin orders. Over 400: Notify physician for adjustment of insulin orders. Do NOT hold for NPO Status, Indications: Diabetes MellitusIndications:Diabetes Mellitus Given 11/22/2024 5:34 PM MANAGER WEB APPLICATION 4 Units Right Upper Arm Given 11/22/2024 12:03 PM MANAGER WEB APPLICATION 6 Units L eft Upper Arm Given 11/22/2024 8:57 AM MANAGER WEB APPLICATION 2 Units Le ft Upper Arm insulin lispro (HumaLOG, ADMELOG) 100 unit/mL injection 0-5 Units 0-5 Units, subcutaneous, Every 4 hours scheduled, First dose on Fri11/18/24 at 1600, Phase I & Post-op Floor, Blood glucose mg/dL: 149 or less: No insulin 150-199: add 1 unit 200-249: add 2 units 250-299: add 3 units 300-349: add 4 units and notify physician for adjustment of insulin orders. 350-399: add 5 units and notify physician for adjustment of insulin orders. Over 400: Notify physician for adjustment of insulin orders. Do NOT hold for NPO Status, Indications: Diabetes MellitusIndications:Diabetes Mellitus Given 11/19/2024 3:54 AM MANAGER WEB APPLICATION 1 Units Right Upper Arm Given 11/18/2024 11:28 PM MANAGER WEB APPLICATION 2 Units L eft Lower Abdomen Given 11/18/2024 8:11 PM MANAGER WEB APPLICATION 1 Units Le ft Lower Abdomen insulin lispro (HumaLOG, ADMELOG) 100 unit/mL injection 0-5 Units 0-5 Units, subcutaneous, Nightly, First dose on Fri11/19/24 at 2100, Blood glucose mg/dL: 149 or less: No insulin 150-199: add 1 unit 200-249: add 2 units 250-299: add 3 units 300-349: add 4 units and notify physician for adjustment of insulin orders. 350-399: add 5 units and notify physician for adjustment of insulin orders. Over 400: Notify physician for adjustment of insulin orders. Do NOT hold for NPO Status, Indications: Diabetes MellitusIndications:Diabetes Mellitus Given 2024 8:35 PM MANAGER WEB APPLICATION 5 Units Left Lower Abdomen Given 11/20/2024 9:33 PM MANAGER WEB APPLICATION 1 Units Le ft Lower Abdomen Given 11/19/2024 8:40 PM MANAGER WEB APPLICATION 2 Units Le ft Lower Abdomen insulin lispro (HumaLOG, ADMELOG) 100 unit/mL injection 10 Units 10 Units, subcutaneous, Once, On Fri11/23/24 at 1915, For 1 dose, Indications: HyperglycemiaIndications:Hyp erglycemia Given 11/23/2024 7:06 PM MANAGER WEB APPLICATION 10 Units Left Upper Arm insulin lispro (HumaLOG, ADMELOG) 100 unit/mL injection 10 Units 10 Units, subcutaneous, 3 times daily with meals, First dose (after last modification) on Fri11/24/24 at 1330, Indications: HyperglycemiaIndications:Hyp erglycemia Given 11/25/2024 8:52 AM MANAGER WEB APPLICATION 10 Units Left Lower Abdomen Given 11/24/2024 6:22 PM MANAGER WEB APPLICATION 10 Units Le ft Upper Arm Given 11/24/2024 12:57 PM MANAGER WEB APPLICATION 10 Units L eft Upper Arm insulin lispro (HumaLOG, ADMELOG) 100 unit/mL injection 15 Units 15 Units, subcutaneous, 3 times daily with meals, First dose (after last modification) on Fri11/25/24 at 1215, Indications: HyperglycemiaIndications:Hyp erglycemia Given 11/25/2024 5:42 PM MANAGER WEB APPLICATION 15 Units Left Lower Abdomen Given 11/25/2024 12:04 PM MANAGER WEB APPLICATION 15 Units L eft Lower Abdomen insulin lispro (HumaLOG, ADMELOG) 100 unit/mL injection 18 Units 18 Units, subcutaneous, 3 times daily with meals, First dose (after last modification) on Fri11/26/24 at 1200, Indications: HyperglycemiaIndications:Hyp erglycemia Given 11/26/2024 12:34 PM MANAGER WEB APPLICATION 18 Units Left Lower Abdomen insulin lispro (HumaLOG, ADMELOG) 100 unit/mL injection 18 Units 18 Units, subcutaneous, 3 times daily with meals, First dose on Fri11/26/24 at 1800, If BG greater than or equal to 100 mg/dL, give dose with meals when tray arrives in the room. If BG less than 100 mg/dL or history of poor intake, give after meals. If patient eating less than 50% of meal, call MD for holding or reducing meal insulin dose. Hold prandial insulin if NPO, unable to eat, or if BG less than 70 mg/dL., Indications: Diabetes MellitusIndications:Diabetes Mellitus Given 11/27/2024 12:36 PM MANAGER WEB APPLICATION 18 Units Right Upper Arm Given 11/27/2024 8:48 AM MANAGER WEB APPLICATION 18 Units Le ft Lower Abdomen Given 11/26/2024 5:37 PM MANAGER WEB APPLICATION 18 Units Le ft Upper Arm insulin lispro (HumaLOG, ADMELOG) 100 unit/mL injection 3 Units 3 Units, subcutaneous, Once, On 11/22/24 at 2145, For 1 dose, Indications: HyperglycemiaIndications:Hyp erglycemia Given 11/22/2024 9:20 PM MANAGER WEB APPLICATION 3 Units Left Lower Abdomen insulin lispro (HumaLOG, ADMELOG) 100 unit/mL injection 5 Units 5 Units (rounded from 5.1543 Units = 0.083 Units/kg 62.1 kg), subcutaneous, 3 times daily with meals, First dose on Fri11/19/24 at 1300, If BG greater than or equal to 100 mg/dL, give dose with meals when tray arrives in the room. If BG less than 100 mg/dL or history of poor intake, give after meals. If patient eating less than 50% of meal, call MD for holding or reducing meal insulin dose. Hold prandial insulin if NPO, unable to eat, or if BG less than 70 mg/dL., Indications: Diabetes MellitusIndications:Diabetes Mellitus Given 2024 5:41 PM MANAGER WEB APPLICATION 5 Units Left Lower Abdomen Given 2024 12:25 PM MANAGER WEB APPLICATION 5 Units L eft Lower Abdomen Given 2024 8:15 AM MANAGER WEB APPLICATION 5 Units Le ft Lower Abdomen insulin lispro (HumaLOG, ADMELOG) 100 unit/mL injection 5 Units 5 Units, subcutaneous, 3 times daily with meals, First dose on Fri11/23/24 at 0800, Indications: HyperglycemiaIndications:Hyp erglycemia Given 11/23/2024 12:37 PM MANAGER WEB APPLICATION 5 Units Left Lower Abdomen Given 11/23/2024 8:55 AM MANAGER WEB APPLICATION 5 Units Le ft Lower Abdomen insulin lispro (HumaLOG, ADMELOG) 100 unit/mL injection 5 Units 5 Units, subcutaneous, Every 4 hours PRN, other, Snacks greater than 20 grams of carbohydrate, Starting on Fri11/26/24 at 1432, Give as needed for snacks greater than 20 grams of carbohydrates. Hold prandial insulin if NPO, unable to eat, or if BG less than 70 mg/dL., Indications: Diabetes MellitusIndications:Diabetes Mellitus Given 11/27/2024 10:59 PM MANAGER WEB APPLICATION 5 Units Righ t Upper Arm Given 11/27/2024 4:15 AM MANAGER WEB APPLICATION 5 Units Le ft Lower Abdomen insulin lispro (HumaLOG, ADMELOG) 100 unit/mL injection 7 Units 7 Units, subcutaneous, 3 times daily with meals, First dose (after last modification) on Fri11/22/24 at 0800, If BG greater than or equal to 100 mg/dL, give dose with meals when tray arrives in the room. If BG less than 100 mg/dL or history of poor intake, give after meals. If patient eating less than 50% of meal, call MD for holding or reducing meal insulin dose. Hold prandial insulin if NPO, unable to eat, or if BG less than 70 mg/dL., Indications: Diabetes MellitusIndications:Diabetes Mellitus Given 11/22/2024 5:33 PM MANAGER WEB APPLICATION 7 Units Right Upper Arm Given 11/22/2024 12:04 PM MANAGER WEB APPLICATION 7 Units L eft Upper Arm Given 11/22/2024 8:57 AM MANAGER WEB APPLICATION 7 Units Le ft Upper Arm insulin lispro (HumaLOG, ADMELOG) 100 unit/mL injection 7 Units 7 Units, subcutaneous, 3 times daily with meals, First dose (after last modification) on Fri11/23/24 at 1330, Indications: HyperglycemiaIndications:Hyperg lycemia Given 11/24/2024 8:34 AM MANAGER WEB APPLICATION 7 Units Left Upper Arm Given 11/23/2024 5:34 PM MANAGER WEB APPLICATION 7 Units Le ft Lower Abdomen insulin lispro (HumaLOG, ADMELOG) 100 unit/mL injection 7 Units 7 Units, subcutaneous, Every 4 hours PRN, other, Snacks greater than 20 grams of carbohydrate, Starting on Fri11/28/24 at 0857, Give as needed for snacks greater than 20 grams of carbohydrates. Hold prandial insulin if NPO, unable to eat, or if BG less than 70 mg/dL., Indications: Diabetes MellitusIndications:Diabetes Mellitus Given 11/30/2024 6:22 AM MANAGER WEB APPLICATION 7 Units Right Upper Arm Given 11/29/2024 11:56 PM MANAGER WEB APPLICATION 7 Units L eft Upper Arm Given 11/29/2024 7:39 PM MANAGER WEB APPLICATION 7 Units Ri ght Upper Arm insulin lispro (HumaLOG, ADMELOG) 100 unit/mL injection 7 Units 7 Units, subcutaneous, Once, On Fri11/28/24 at 2045, For 1 dose, Indications: HyperglycemiaIndicatio ns:Hyperglycemia Given 11/28/2024 8:14 PM MANAGER WEB APPLICATION 7 Units Right Upper Arm insulin regular (HumuLIN R, NovoLIN R) 100 unit/mL injection 3 Units 3 Units (rounded from 3.105 Units = 0.05 Units/kg 62.1 kg), intravenous, Once, On Fri11/25/24 at 2100, For 1 dose, Indications: HyperglycemiaIndicatio ns:Hyperglycemia Given 11/25/2024 8:57 PM MANAGER WEB APPLICATION 3 Units insulin regular (HumuLIN R, NovoLIN R) 100 unit/mL injection 5 Units 5 Units, intravenous, Once, On Fri11/24/24 at 1315, For 1 dose, Indications: HyperglycemiaIndicatio ns:Hyperglycemia Given 11/24/2024 12:58 PM MANAGER WEB APPLICATION 5 Units insulin regular (HumuLIN R, NovoLIN R) 100 unit/mL injection 5 Units 5 Units, intravenous, Once, On Fri11/26/24 at 0900, For 1 dose, Indications: HyperglycemiaIndicatio ns:Hyperglycemia Given 11/26/2024 8:54 AM MANAGER WEB APPLICATION 5 Units insulin regular in 0.9% sodium chloride (MYXREDLIN) 100 unit/100 mL (1 unit/mL) infusion (premix) 0-30 Units/hr (0-30 mL/hr), 1 units/mL, intravenous, Titrated, Starting on Fri11/18/24 at 0930, Until Fri11/18/24 at 1507, Intra-Op, Indications: Hyperglycemia, NON-WEIGHT BASED DOSING Blood Glucose (BG) - BG DECREASED OR SAME as last value: Less than 70 mg/dL - Stop insulin infusion *(see below for drip reinitiation instructions). Follow hypoglycemia orders. Notify covering MD. 70 - 100 mg/dL - Stop infusion *(see below for drip reinitiation instructions). Resume BG Q 1 hour. 101 - 160 mg/dL - If BG decreased by greater than or equal to 40 mg/dL, decrease infusion by 50% or stop infusion if less than or equal to 2 units/hour *(see below for drip reinitiation instructions). Resume BG Q 1 hour. If BG decreased less than 40 mg/dL, continue same rate. 161 - 200 mg/dL- If BG decreased by greater than or equal to 60 mg/dL, decrease infusion by 50% or stop infusion if less than or equal to 2 units/hour *(see below for drip reinitiation instructions). Resume BG Q 1 hour. If BG decreased less than 60 mg/dL, continue same rate. 201 - 250 mg/dl - If BG decreased by greater than or equal to 60 mg/dL continue same rate. If decreased by less than 60 mg/dL, increase by 1 unit/hr. 251 - 300 mg/dL - Increase by 2 units/hour. 301 - 349 mg/dL - Increase by 2 units/hour. 350 - 400 mg/dL - Increase by 3 units/hr. Greater than 400 mg/dL - Notify covering MD Blood Glucose (BG) - Blood glucose INCREASED since last value: 70 - 100 mg/dL - Continue to hold infusion 101 - 160 mg/dL - Maintain at present rate or if drip has been off, follow reinitiation instructions* 161 - 200 mg/dL- Increase by or restart at 1 unit/hour or if drip has been off, follow reinitiation instructions* 201 - 250 mg/dL- Give 4 units insulin IVP then increase infusion by 2 units/hour or if drip has been off, follow reinitiation instructions* 251 - 300 mg/dL - Give 4 units insulin IVP then increase infusion by 2 units/hour or if drip has been off, follow reinitiation instructions* 301 - 349 mg/dL - Give 6 units insulin IVP then increase infusion by 3 units/hour or if drip has been off, follow reinitiation instructions* 350 - 400 mg/dL - Give 6 units insulin IVP then increase infusion by 3 units/hour or if drip has been off, follow reinitiation instructions* Greater than 400 mg/dL - Notify covering MD. *Drip Reinitiation Instructions: Check BG Q 1 hour; when BG greater than 100 mg/dL, restart infusion at 50% of the most recent rate. If the most recent rate less than 2 units/hr, contact covering provider for reinitiation or transition plan. Patients with renal failure (CrCl less than 40 mL/min, urine output less than 30 mL/hr, or receiving dialysis) limit infusion rate increases to be NO SOONER THAN EVERY 3 HOURS. Contains a phosphorous buffer. Do not infuse (Y-Site) this medication with calcium or calcium-containing products, including TPN and LR. When new IV tubing is used, completely prime the tubing. Once primed, waste an additional 20 ml of insulin infusion using the IV pump prior to connecting to patient., RoutineIndications:Hyp erglycemia Rate/Dose Verify 11/18/2024 12:09 PM MANAGER WEB APPLICATION 2 Units/hr 2 mL/hr Rate/Dose Verify 11/18/2024 11:14 AM MANAGER WEB APPLICATION 2 Units/hr 2 mL/h r New Bag 11/18/2024 9:05 AM MANAGER WEB APPLICATION 2 Units/hr 2 mL/hr oxyCODONE (ROXICODONE) tablet 5 mg 5 mg, oral, Once, On Fri11/30/24 at 0545, For 1 dose, Indications: PainIndications:Pain Given 11/30/2024 5:20 AM MANAGER WEB APPLICATION 5 mg potassium chloride 40 mEq/520 mL in sodium chloride 0.9% (premix) 40 mEq 40 mEq, intravenous, at 130 mL/hr, Administer over 4 Hours, Once, On Fri11/26/24 at 0245, For 1 dose, Indications: hypokalemiaIndications:hypokalemia New Bag 11/26/2024 4:38 AM MANAGER WEB APPLICATION 40 mEq 130 mL/hr potassium chloride ER (KLOR-CON) extended release tablet 30 mEq 30 mEq, oral, Every 4 hours, First dose on Fri11/26/24 at 1100, For 2 doses, Total dose = 60 mEq Tablets should not be crushed, chewed, dissolved, or otherwise manipulated. Capsules may be opened and sprinkled on a spoonful of applesauce or pudding, but the contents of the capsule should not be crushed or chewed. Given 11/26/2024 4:39 PM MANAGER WEB APPLICATION 30 mEq Given 11/26/2024 12:20 PM MANAGER WEB APPLICATION 30 mEq potassium chloride ER (KLOR-CON) extended release tablet 30 mEq 30 mEq, oral, Every 4 hours, First dose on Fri11/29/24 at 1115, For 2 doses, Total dose = 60 mEq Tablets should not be crushed, chewed, dissolved, or otherwise manipulated. Capsules may be opened and sprinkled on a spoonful of applesauce or pudding, but the contents of the capsule should not be crushed or chewed. Given 11/29/2024 4:05 PM MANAGER WEB APPLICATION 30 mEq Given 11/29/2024 12:21 PM MANAGER WEB APPLICATION 30 mEq potassium chloride ER (KLOR-CON) extended release tablet 40 mEq 40 mEq, oral, Every 6 hours, First dose on Fri11/21/24 at 0100, For 2 doses, Total dose = 80 mEq Tablets should not be crushed, chewed, dissolved, or otherwise manipulated. Capsules may be opened and sprinkled on a spoonful of applesauce or pudding, but the contents of the capsule should not be crushed or chewed. Given 2024 9:28 AM MANAGER WEB APPLICATION 40 mEq Given 2024 3:52 AM MANAGER WEB APPLICATION 40 mEq potassium chloride ER (KLOR-CON) extended release tablet 40 mEq 40 mEq, oral, Once, On Fri11/22/24 at 2130, For 1 dose, Tablets should not be crushed, chewed, dissolved, or otherwise manipulated. Capsules may be opened and sprinkled on a spoonful of applesauce or pudding, but the contents of the capsule should not be crushed or chewed. Given 11/22/2024 8:57 PM MANAGER WEB APPLICATION 40 mEq potassium chloride ER (KLOR-CON) extended release tablet 40 mEq 40 mEq, oral, Once, On Fri11/26/24 at 0545, For 1 dose, Tablets should not be crushed, chewed, dissolved, or otherwise manipulated. Capsules may be opened and sprinkled on a spoonful of applesauce or pudding, but the contents of the capsule should not be crushed or chewed. Given 11/26/2024 5:27 AM MANAGER WEB APPLICATION 40 mEq sodium chloride 0.9% 0.9% infusion - ADS Override Pull Starting on Sammi 11/18/24 at 0733, For 1 dose, Created by cabinet override sodium chloride 0.9% infusion 30 mL/hr, intravenous, Continuous, Starting on Sammi 11/18/24 at 0815, Pre-Op New Bag 11/18/2024 12:12 PM MANAGER WEB APPLICATION 30 mL/hr 30 mL/h r Rate/Dose Verify 11/18/2024 7:39 AM MANAGER WEB APPLICATION 30 mL/h r New Bag 11/18/2024 7:39 AM MANAGER WEB APPLICATION 30 mL/hr 30 mL/hr warfarin (COUMADIN) tablet 2 mg 2 mg, oral, Daily (for warfarin), First dose on 11/20/24 at 1800, Target INR: 2 - 2.5, Indications: LV thrombusIndications:LV thrombus Given 2024 5 :41 PM MANAGER WEB APPLICATION 2 mg Given 11/20/2024 5:31 PM MANAGER WEB APPLICATION 2 mg warfarin (COUMADIN) tablet 2 mg 2 mg, oral, Daily (for warfarin), First dose (after last modification) on 11/23/24 at 1800, Target INR: 2 - 2.5, Indications: LV thrombusIndications:LV thrombus Given 11/29/2024 5:56 PM MANAGER WEB APPLICATION 2 mg Given 11/28/2024 5:10 PM MANAGER WEB APPLICATION 2 mg Given 11/27/2024 5:47 PM MANAGER WEB APPLICATION 2 mg warfarin (COUMADIN) tablet 5 mg 5 mg, oral, Once (for warfarin), On 11/22/24 at 1800, For 1 dose, Target INR: 2 - 3, Indications: Venous ThrombosisIndications:Venous Thrombosis Given 11/22/2024 5:40 PM MANAGER WEB APPLICATION 5 mg documented in this encounter Discontinued Medications Medication Sig Discontinue Reason Start Date End Da te furosemide (LASIX) 40 mg tablet Take 1 tablet (40 mg total) by mouth daily 11/12/2024 11/23/2024 oxyCODONE (ROXICODONE) 10 mg tablet Take 1 tablet (10 mg total) by mouth every 6 (six) hours as needed for pain 11/01/2024 11/24/2024 insulin glargine (LANTUS, SEMGLEE) 100 unit/mL vial for injectionIndications:Di abetes Mellitus Inject 25 Units under the skin every morning 08/30/2024 11/26/2024 insulin glargine (LANTUS, SEMGLEE) 100 unit/mL vial for injectionIndications:Di abetes Mellitus Inject 30 Units under the skin every morning Stop Taking at Discharge 11/26/2024 11/30/2024 insulin lispro (HumaLOG, ADMELOG) 100 unit/mL pen for injection Inject 5 Units under the skin 3 (three) times a day with meals (plus blood glucose mg/dL 150-199: 2 units, 200-249: 4 units, 250-299: 6 units, 300-349: 8 units, 350 or greater: 10 units. Notify provider for blood glucose greater than 299 mg/dL. Refer to After Visit Summary for Sliding Scale Insulin Instructions. 11/23/2024 11/30/2024 insulin lispro (HumaLOG, ADMELOG) 100 unit/mL pen [...] Visit Summary for Sliding Scale Insulin Instructions. Stop Taking at Discharge 11/30/2024 11/30/2024 insulin glargine 100 unit/mL (3 mL) pen for injection Inject 27 Units under the skin nightly 11/30/2024 11/30/2024 warfarin (COUMADIN) 2 mg tabletIndications:LV thrombus Take 1 tablet (2 mg total) by mouth daily Stop Taking at Discharge 11/23/2024 11/30/2024 metFORMIN XR (GLUCOPHAGE XR) 500 mg 24 hr tabletIndications:Uncon trolled type 2 diabetes mellitus with hyperglycemia (HCC) 2 tabs po daily (hold if nause/vomit or not feeling well). 11/05/2024 11/30/2024 insulin lispro (HumaLOG, ADMELOG) 100 unit/mL pen for injection Inject 20 Units under the skin 3 (three) times a day with meals Lispro 20 units three times daily with meals + correction 2 units for every 50 points greater than 150 mg/dl 11/30/2024 11/30/2024 insulin lispro (HumaLOG, ADMELOG) 100 unit/mL pen for injection Inject 9 Units under the skin 4 (four) times a day as needed (with snacks >20g carbs) 11/30/2024 11/30/2024 enoxaparin (LOVENOX) 60 mg/0.6 mL syringe Inject 0.6 mL (60 mg total) under the skin every 12 (twelve) hours Stop Taking at Discharge 10/25/2024 11/30/2024 documented as of this encounter Active and Recently Administered Medications Times are shown in MANAGER WEB APPLICATION. Scheduled Medication Order 11/28/2024 11/29/2024 11/30/2024 acetaminophen (TYLENOL) tablet 650 mg 650 mg, oral, Every 6 hours, First dose on Sammi 11/18/24 at 1045, Phase I & Post-op Floor 0536 (Given - Provider: Kingston Fulton RN)1159 (Given - Provider: Phoebe Hill RN)1710 (Given - Provider: Phoebe Hill RN) 0005 (Given - Provider: Kingston Fulton RN)0516 (Given - Provider: Kingston Fulton RN)1221 (Given - Provider: Genoveva Edwards, RAMYA)1756 (Given - Provider: Ximena Farooq RN)2356 (Given - Provider: Kingston Fulton RN) 0503 (Given - Provider: Kingston Fulton RN)1232 (Given - Provider: Genoveva Edwards, RAMYA)1800 (Due) amiodarone (PACERONE) tablet 200 mg 200 mg, oral, Daily, First dose on Fri11/19/24 at 0900 0843 (Given - Provider: Phoebe Hill RN) 0815 (Given - Provider: Genoveva Edwards, RAMYA) 0838 (Given - Provider: Genoveva Edwards, RAMYA) aspirin enteric coated tablet 81 mg 81 mg, oral, Daily, First dose on Sammi 11/18/24 at 1745, Do not crush, chew, cut, dissolve, open or otherwise manipulate tablet/capsule. 0843 (Given - Provider: Phoebe Hill RN) 0814 (Given - Provider: Genoveva Edwards RN) 0838 (Given - Provider: Genoveva Edwards RN) atorvastatin (LIPITOR) tablet 20 mg 20 mg, oral, Daily, First dose on Sammi 11/18/24 at 1745 0842 (Given - Provider: Phoebe Hill RN) 0815 (Given - Provider: Genoveva Edwards RN) 0839 (Given - Provider: Genoveva Edwards RN) buprenorphine (BUTRANS) 10 mcg/hour patch weekly 1 patch 1 patch, transdermal, Administer over 7 Days, Weekly, First dose on Fri11/20/24 at 0900 0846 (Patch Verify - Provider: Phoebe Hill RN) 0830 (Patch Verify - Provider: Genoveva Edwards RN) 0830 (Patch Verify - Provider: Genoveva Edwards RN) DULoxetine DR (CYMBALTA) extended release capsule 60 mg 60 mg, oral, Daily, First dose on Sammi 11/18/24 at 1745, Capsule may be opened and contents mixed with applesauce or apple juice ONLY. Do not crush or chew capsule 0842 (Given - Provider: Phoebe Hill RN) 0815 (Given - Provider: Genoveva Edwards RN) 0838 (Given - Provider: Genoveva Edwards RN) furosemide (LASIX) tablet 20 mg 20 mg, oral, Daily, First dose on Fri11/24/24 at 1600 1710 (Given - Provider: Phoebe Hill RN) 1606 (Given - Provider: Genoveva Edwards RN) 1600 (Due) furosemide (LASIX) tablet 40 mg 40 mg, oral, Daily, First dose (after last modification) on Fri11/25/24 at 0900 0843 (Given - Provider: Phoebe Hill RN) 0814 (Given - Provider: Genoveva Edwards RN) 0934 (Given - Provider: Genoveva Edwards RN) insulin glargine (LANTUS, SEMGLEE) 100 unit/mL injection 27 Units 27 Units, subcutaneous, Every morning, First dose (after last modification) on Fri11/28/24 at 0900, Do not mix with other insulins, Indications: Diabetes Mellitus 0843 (Given - Provider: Phoebe Hill RN) 0818 (Given - Provider: Genoveva Edwards RN) 0837 (Given - Provider: Genoveva Edwards RN) insulin lispro (HumaLOG, ADMELOG) 100 unit/mL injection 0-10 Units 0-10 Units, subcutaneous, 3 times daily with meals, First dose on Fri11/23/24 at 0800, Blood glucose mg/dL: 149 or less: No insulin 150-199: add 2 unit 200-249: add 4 units 250-299: add 6 units 300-349: add 8 units and notify physician for adjustment of insulin orders. 350-399: add 10 units and notify physician for adjustment of insulin orders. Over 400: Notify physician for adjustment of insulin orders. Do NOT hold for NPO Status, Indications: Diabetes Mellitus 0844 (Given - Provider: Phoebe Hill RN)1200 (Given - Provider: Phoebe Hill RN)1705 (Not Given - Provider: Phoebe Hill RN - Reason: Order parameters not met) 0821 (Not Given - Provider: Genoveva Edwards RN - Reason: Order parameters not met)1222 (Given - Provider: Genoveva Edwards RN)1750 (Not Given - Provider: Ximena Farooq RN - Reason: Order parameters not met) 0836 (Given - Provider: Genoveva Edwards RN)1248 (Not Given - Provider: Genoveva Edwards RN - Reason: Order parameters not met)1800 (Due) insulin lispro (HumaLOG, ADMELOG) 100 unit/mL injection 0-5 Units 0-5 Units, subcutaneous, Nightly, First dose on Fri11/22/24 at 2115, Blood glucose mg/dL: 149 or less: No insulin 150-199: add 1 unit 200-249: add 2 units 250-299: add 3 units 300-349: add 4 units and notify physician for adjustment of insulin orders. 350-399: add 5 units and notify physician for adjustment of insulin orders. Over 400: Notify physician for adjustment of insulin orders. Do NOT hold for NPO Status, Indications: Diabetes Mellitus 2025 (Not Given - Provider: Kingston Fulton RN - Reason: See Provider Order - Comment: conferred with MD; 7U stat dose given) 2158 (Given - Provider: Kingston Fulton RN) 2100 (Due) insulin lispro (HumaLOG, ADMELOG) 100 unit/mL injection 20 Units 20 Units, subcutaneous, 3 times daily with meals, First dose (after last modification) on 11/27/24 at 1800, If BG greater than or equal to 100 mg/dL, give dose with meals when tray arrives in the room. If BG less than 100 mg/dL or history of poor intake, give after meals. If patient eating less than 50% of meal, call MD for holding or reducing meal insulin dose. Hold prandial insulin if NPO, unable to eat, or if BG less than 70 mg/dL., Indications: Diabetes Mellitus 0844 (Given - Provider: Phoebe Hill RN)1200 (Given - Provider: Phoebe Hill RN)1941 (Not Given - Provider: Phoebe Hill RN - Reason: Patient/family refused - Comment: patient refused insulin, MD aware) 0818 (Given - Provider: Genoveva Edwards RN)1222 (Given - Provider: Genoveva Edwards RN)1756 (Given - Provider: Ximena Farooq RN) 0836 (Given - Provider: Genoveva Edwards RN)1232 (Given - Provider: Genoveva Edwards RN)1800 (Due) insulin lispro (HumaLOG, ADMELOG) 100 unit/mL injection 7 Units (COMPLETED) 7 Units, subcutaneous, Once, On Fri11/28/24 at 2045, For 1 dose, Indications: Hyperglycemia 2013 (Given - Provider: Kingston Fulton RN) levothyroxine (SYNTHROID) tablet 125 mcg 125 mcg, oral, Daily, First dose on Fri11/19/24 at 0600, Administer on an empty stomach, preferably 30 minutes before breakfast. Take 4 hours apart from antacids, iron and calcium products. Separate from tube feeds, if applicable. 0536 (Given - Provider: Kingston Fulton RN) 0516 (Given - Provider: Kingston Fulton RN) 0503 (Given - Provider: Kingston Fulton RN) metoprolol tartrate immediate release capsule 12.5 mg 12.5 mg, oral, 2 times daily, First dose on Fri11/18/24 at 2100 0843 (Given - Provider: Phoebe Hill RN)2013 (Given - Provider: Kingston Fulton RN) 0814 (Given - Provider: Genoveva Edwards RN)2027 (Given - Provider: Kingston Fulton RN) 0838 (Hold - Provider: Genoveva Edwards RN - Reason: Other - Comment: soft BP)2099 (Due) midodrine (PROAMATINE) tablet 10 mg 10 mg, oral, 3 times daily before meals, First dose on Fri11/18/24 at 1745 0843 (Given - Provider: Phoebe Hill RN)1159 (Given - Provider: Phoebe Hill RN)1710 (Given - Provider: Phoebe Hill RN) 0815 (Given - Provider: Genoveva Edwards RN)1221 (Given - Provider: Genoveva Edwards RN)1756 (Given - Provider: Ximena Farooq RN) 0838 (Given - Provider: Genoveva Edwards RN)1232 (Given - Provider: Genoveva Edwards RN)1730 (Due) mirtazapine (REMERON RAOUL-TAB) disintegrating tablet 15 mg 15 mg, oral, Nightly, First dose on Fri11/22/24 at 2100, If administering by mouth, place tablet on tongue and allow to dissolve. 2013 (Given - Provider: Kingston Fulton RN) 2026 (Given - Provider: Kingston Fulton RN) 2099 (Due) oxyCODONE (ROXICODONE) tablet 5 mg (COMPLETED) 5 mg, oral, Once, On Fri11/30/24 at 0545, For 1 dose, Indications: Pain 0520 (Given - Provider: Kingston Fulton, RAMYA) pantoprazole DR (PROTONIX) extended release tablet 40 mg 40 mg, oral, Daily, First dose on Fri11/19/24 at 0900, Do not crush, chew, cut, dissolve, open or otherwise manipulate tablet/capsule., Indications: Treatment of Non-Bleeding Gastric Disorder 0842 (Given - Provider: Phoebe Hill RN) 0815 (Given - Provider: Genoveva Edwards RN) 0839 (Given - Provider: Genoveva Edwards RN) polyethylene glycol (MIRALAX) packet 17 g 17 g, oral, Daily, First dose on Fri11/24/24 at 1400, Indications: constipation 0846 (Not Given - Provider: Phoebe Hill RN - Reason: Patient/family refused) 0819 (Not Given - Provider: Genoveva Edwards RN - Reason: Patient/family refused) 0930 (Not Given - Provider: Genoveva Edwards RN - Reason: Patient/family refused) potassium chloride ER (KLOR-CON) extended release tablet 30 mEq (COMPLETED) 30 mEq, oral, Every 4 hours, First dose on Fri11/29/24 at 1115, For 2 doses, Total dose = 60 mEq Tablets should not be crushed, chewed, dissolved, or otherwise manipulated. Capsules may be opened and sprinkled on a spoonful of applesauce or pudding, but the contents of the capsule should not be crushed or chewed. 1221 (Given - Provider: Genoveva Edwards RN)1605 (Given - Provider: Genoveva Edwards RN) pregabalin (LYRICA) capsule 75 mg 75 mg, oral, 2 times daily, First dose on Fri11/18/24 at 2100 0843 (Given - Provider: Phoebe Hill RN)2013 (Given - Provider: Kingston Fulton RN) 813 (Given - Provider: Genoveva Edwards RN)2026 (Given - Provider: Kingston Fulton RN) 08 (Given - Provider: Genoveva Edwards RN)2099 (Due) rOPINIRole (REQUIP) tablet 0.25 mg 0.25 mg, oral, Nightly, First dose on Fri11/18/24 at 2099 2013 (Given - Provider: Kingston Fulton RN) 2027 (Given - Provider: Kingston Fulton RN) 2099 (Due) sacubitriL-valsartan (ENTRESTO) 24-26 mg tablet 0.5 tablet 0.5 tablet, oral, 2 times daily, First dose on Fri11/19/24 at 0900 0843 (Given - Provider: Phoebe Hill RN)2013 (Given - Provider: Kingston Fulton RN) 0814 (Given - Provider: Genoveva Edwards RN)2026 (Given - Provider: Kingston Fulton RN) 0839 (Given - Provider: Genoveva Edwards RN)2100 (Due) senna-docusate (PERICOLACE) 8.6-50 mg per tablet 1 tablet 1 tablet, oral, 2 times daily, First dose on Fri11/24/24 at 1400 0846 (Not Given - Provider: Phoebe Hill RN - Reason: Patient/family refused)2024 (Not Given - Provider: Kingston Fulton RN - Reason: Patient/family refused) 0819 (Not Given - Provider: Genoveva Edwards RN - Reason: Patient/family refused)2027 (Given - Provider: Kingston Fulton RN) 0839 (Given - Provider: Genoveva Edwards RN)2100 (Due) sodium chloride 0.9% flush 0.5-20 mL 0.5-20 mL, intra-catheter, Every 8 hours scheduled (alternate), First dose on Sammi 11/18/24 at 1745, Flush volume based on line type and size. 0845 (Given - Provider: Phoebe Hill RN)1628 (Not Given - Provider: Phoebe Hill RN - Reason: Other) 0005 (Given - Provider: Kingston Fulton RN)0820 (Given - Provider: Genoveva Edwards RN)1621 (Not Given - Provider: Genoveva Edwards RN - Reason: Other)2356 (Given - Provider: Kingston Fulton RN) 0936 (Not Given - Provider: Genoveva Edwards RN - Reason: Other)1600 (Due) spironolactone (ALDACTONE) tablet 25 mg 25 mg, oral, Daily, First dose on Fri11/19/24 at 0900 0843 (Given - Provider: Phoebe Hill RN) 0815 (Given - Provider: Genoveva Edwards, RAMYA) 0839 (Hold - Provider: Genoveva Edwards RN - Reason: Other) warfarin (COUMADIN) tablet 2 mg (CANCELED) 2 mg, oral, Daily (for warfarin), First dose (after last modification) on Fri11/23/24 at 1800, Target INR: 2 - 2.5, Indications: LV thrombus 1710 (Given - Provider: Phoebe Hill RN) 1756 (Given - Provider: Ximena Farooq RN) warfarin (COUMADIN) tablet 3 mg 3 mg, oral, Daily (for warfarin), First dose (after last modification) on Fri11/30/24 at 1800, Target INR: 2 - 2.5, Indications: LV thrombus 1800 (Due) PRN Medication Order 11/28/2024 11/29/2024 11/30/2024 bisacodyl EC (DULCOLAX EC) tablet 10 mg 10 mg, oral, Daily PRN, constipation, If no results 24 hours after milk of magnesia (may give bisacodyl supp if not tolerating PO), Starting on Fri11/18/24 at 1704, Do not crush, chew, cut, dissolve, open or otherwise manipulate tablet/capsule. calcium carbonate (TUMS) chewable tablet 500 mg 500 mg (200 mg of elemental calcium), oral, 3 times daily PRN, indigestion, heartburn, Starting on Fri11/29/24 at 0638 0722 (Given - Provider: Kingston Fulton RN) Carrier Fluids for Secondary Infusion - 0.9% Sodium Chloride 30 mL, intravenous, As needed, For priming tubing and/or flushing, Starting on Sammi 11/18/24 at 1703, 0-250 ml/hr to flush line after IV infusions when no maintenance IV ordered. Infuse 30mL at the same rate as the secondary infusion. Run as primary IV, not intended for KVO. cyclobenzaprine (FLEXERIL) tablet 10 mg 10 mg, oral, 3 times daily PRN, muscle spasms, Starting on Fri11/18/24 at 1006, Phase I & Post-op Floor 0843 (Given - Provider: Phoebe Hill, RN)2013 (Given - Provider: Kingston Fulton, RN) 0851 (Given - Provider: Genoveva Edwards, RAMYA)180 (Given - Provider: Ximena Farooq, RN)2026 (Given - Provider: Kingston Fulton, RN) 0301 (Given - Provider: Kingston Fulton, RN)1440 (Given - Provider: Kelly Karimi RN) dextrose (D10W) 10% bolus 250 mL(Linked Group 1) 250 mL, intravenous, at 1,000 mL/hr, Administer over 15 Minutes, Every 15 min PRN, blood glucose less than 70 mg/dL and UNABLE to swallow/take PO glucose/juice., Starting on Fri11/22/24 at 2031, After treatment for hypoglycemia, recheck BG followed by treatment every 15 minutes until the BG is greater than 100 mg/dL. Then check BG 1 hour post treatment. If BG is less than 100 mg/dL, repeat Q15 minute BG checks and treatment. Call MD for each episode of hypoglycemia., Indications: hypoglycemic disorder dextrose gel in packet 15 g(Linked Group 1) 15 g, oral, Every 15 min PRN, low blood sugar, blood glucose less than 70 mg/dL, Starting on Fri11/22/24 at 2031, If patient is alert and able to eat/drink, give 15 gm glucose or one juice (4 fluid ounces) NOT ORANGE JUICE. After treatment for hypoglycemia, recheck BG followed by treatment every 15 minutes until the BG is greater than 100 mg/dL. Then check BG 1 hour post-treatment. If BG is less than 100 mg/dL, repeat Q15 minute BG checks and treatment. Call MD for each episode of hypoglycemia., Indications: hypoglycemic disorder glucagon injection 1 mg 1 mg, intramuscular, Every 30 min PRN, low blood sugar, blood glucose less than 70 mg/dL AND no IV access AND unable to take PO glucose/juice., Starting on Fri11/22/24 at 2031, After Glucagon is administered, position patient on side if possible to avoid aspiration. Obtain IV access. Follow glucagon treatment with glucose treatment or IV dextrose. After treatment for hypoglycemia, recheck BG followed by treatment every 15 minutes until the BG is greater than 100 mg/dL. Then check BG 1 hour post treatment. If BG is less than 100 mg/dL, repeat Q15 minute BG checks and treatment. Call MD for each episode of hypoglycemia. Reconstitute 1 mg vial with 1 mL SWFI. Use immediately following reconstitution. hydrocortisone (ANUSOL-HC) 2.5 % rectal cream rectal, 2 times daily PRN, hemorrhoids, Starting on Fri11/19/24 at 0715 insulin lispro (HumaLOG, ADMELOG) 100 unit/mL injection 7 Units (CANCELED) 7 Units, subcutaneous, Every 4 hours PRN, other, Snacks greater than 20 grams of carbohydrate, Starting on Fri11/28/24 at 0857, Give as needed for snacks greater than 20 grams of carbohydrates. Hold prandial insulin if NPO, unable to eat, or if BG less than 70 mg/dL., Indications: Diabetes Mellitus 0005 (Given - Provider: Kingston Fulton RN)1939 (Given - Provider: Kingston Fulton RN)2356 (Given - Provider: Kingston Fulton RN) 0622 (Given - Provider: Kingston Fulton RN) insulin lispro (HumaLOG, ADMELOG) 100 unit/mL injection 9 Units 9 Units, subcutaneous, Every 4 hours PRN, other, Snacks greater than 20 grams of carbohydrate, Starting on Fri11/30/24 at 0951, Give as needed for snacks greater than 20 grams of carbohydrates. Hold prandial insulin if NPO, unable to eat, or if BG less than 70 mg/dL., Indications: Diabetes Mellitus 1440 (Given - Provider: Kelly Karimi RN - Comment: 20g snack) ondansetron (ZOFRAN) tablet 4 mg 4 mg, oral, Every 8 hours PRN, nausea, vomiting, Starting on Sammi 11/18/24 at 1704 oxyCODONE (ROXICODONE) tablet 10 mg 10 mg, oral, Every 6 hours PRN, 1st line for pain, Starting on Fri11/18/24 at 1006, Phase I & Post-op Floor 0536 (Given - Provider: Kingston Fulton RN)1159 (Given - Provider: Phoebe Hill RN)2013 (Given - Provider: Kingston Fulton RN) 0207 (Given - Provider: Kingston Fulton RN)0817 (Given - Provider: Genoveva Edwards RN)1230 (Given - Provider: Genoveva Edwards RN - Comment: approved by ABDON Dyer to administer now)1909 (Given - Provider: Genoveva Edwards RN) 0212 (Given - Provider: Kingston Fulton RN)0934 (Given - Provider: Genoveva Edwards RN)1440 (Given - Provider: Kelly Karimi RN - Comment: ok to give per VETERIN[employer] PARASITOLOGIST Manisha) polyvinyl alcohol-povidone (REFRESH CLASSIC) 1.4-0.6 % ophthalmic solution 2 drop 2 drop, each eye, 4 times daily PRN, dry eyes, Starting on 11/24/24 at 0952 rizatriptan [employer] (MAXALT-GLASS LO[employer]ING [employer]QUIPMENT TENDER) disintegrating tablet 10 mg 10 mg, sublingual, Every 2 hours PRN, migraine, repeat 2h if unresolved, do not exceed 30mg in 24h, Starting on 11/20/24 at 0921, May repeat dose once in 2 hours if unresolved. Do not exceed 30 mg in 24 hours. If administering by mouth, place tablet on tongue and allow to dissolve., Indications: Migraine sodium chloride 0.9% flush 0.5-20 mL 0.5-20 mL, intra-catheter, As needed, line care, Starting on Sammi 11/18/24 at 1703, Flush volume based on line type and size. Flush before and after each use. Linked Groups Order Group 1: dextrose gel in packet 15 gJump to med 15 g, oral, Every 15 min PRN, low blood sugar, blood glucose less than 70 mg/dL, Starting on 11/22/24 at 2032, If patient is alert and able to eat/drink, give 15 gm glucose or one juice (4 fluid ounces) NOT ORANGE JUICE. After treatment for hypoglycemia, recheck BG followed by treatment every 15 minutes until the BG is greater than 100 mg/dL. Then check BG 1 hour post-treatment. If BG is less than 100 mg/dL, repeat Q15 minute BG checks and treatment. Call MD for each episode of hypoglycemia., Indications: hypoglycemic disorder Or dextrose (D10W) 10% bolus 250 mLJump to med 250 mL, intravenous, at 1,000 mL/hr, Administer over 15 Minutes, Every 15 min PRN, blood glucose less than 70 mg/dL and UNABLE to swallow/take PO glucose/juice., Starting on 11/22/24 at 2031, After treatment for hypoglycemia, recheck BG followed by treatment every 15 minutes until the BG is greater than 100 mg/dL. Then check BG 1 hour post treatment. If BG is less than 100 mg/dL, repeat Q15 minute BG checks and treatment. Call MD for each episode of hypoglycemia., Indications: hypoglycemic disorder documented in this encounter Orders Medications Ordered That Donis ht Not Have Been Administered Count Last Ordered Date First Ordered Date warfarin (COUMADIN) tablet 3 mg 1 insulin glargine (LANTUS, SE MGLEE) 100 unit/mL injection 28 Units 1 11/27/2024 insulin lispro (HumaLOG, ADM ELOG) 100 unit/mL injection 10 Units 1 11/24/2024 dextrose (D10W) 10% bolus 250 mL 3 11/22/19 25 11/18/2024 dextrose gel in packet 15 g 3 11/22/2024 11/18/2024 glucagon injection 1 mg 4 11/22/2024/03/2025 warfarin (COUMADIN) tablet 5 mg 1 insulin glargine (LANTUS, SE MGLEE) 100 unit/mL injection 25 Units 1 11/20/2024 heparin 1,000 unit/mL inject ion 2,000 Units 1 11/19/2024 hydrocortisone (ANUSOL-HC) 2 .5 % rectal cream 1 11/19/2024 insulin glargine (LANTUS, SE MGLEE) 100 unit/mL injection 15 Units 1 11/19/2024 bisacodyl EC (DULCOLAX EC) tablet 10 mg 1 0 11/18/2024 BUPivacaine (MARCAINE) 0.25 % (2.5 mg/mL) preservative free injection 1 11/18/2024 Carrier Fluids for Secondary Infusion - 0.9% Sodium Chloride 2 11/18/2024 ceFAZolin (ANCEF) 2,000 mg/2 0 mL in sterile water (premix) 2,000 mg 1 11/18/2024 DOPamine in dextrose 5% 400 mg/250 mL (1,600 mcg/mL) infusion (premix) 1 11/18/2024 fentaNYL (SUBLIMAZE) preserv ative free injection 50 mcg 1 11/18/2024 furosemide (LASIX) 10 mg/mL injection - ADS Override Pull 1 11/18/2024 heparin in 0.9% sodium chlor roxi 1,000 units/500 mL (2 unit/mL) infusion (premix) 1 11/18/2024 HYDROmorphone (DILAUDID) injection 0.2 mg 1 11/18/2024 insulin lispro (HumaLOG, ADM ELOG) 100 unit/mL injection 0-4 Units 1 11/18/2024 insulin lispro (HumaLOG, ADM ELOG) 100 unit/mL injection 0-5 Units 1 11/18/2024 insulin regular bolus from bag 4-10 Units 1 11/18/2024 insulin regular bolus from bag 4-6 Units 1 11/18/2024 meperidine (DEMEROL) preserv ative free injection 12.5 mg 1 11/18/2024 naloxone (NARCAN) 0.4 mg/mL injection 0.04-0.4 mg 1 11/18/2024 norepinephrine in dextrose 5 % (LEVOPHED) 8,000 mcg/250 mL (32 mcg/mL) infusion (premix) 1 11/18/2024 ondansetron (ZOFRAN) injection 4 mg 1 11/18 sodium chloride 0.9% flush 0.5-20 mL 1 03/2025 sodium chloride 0.9% irrigation 1 sodium chloride 0.9% IVPB 0-250 mL 1 2024 sodium chloride 0.9% solution 1,000 mL 1 Lab Orders Without Results Count Last Ordered D ate First Ordered Date POCT GLUCOSE DEVICE 55 11/26/2024 11/18/19 25 PROTIME-INR 1 11/20/2024 EKG Orders Without Results Count Last Ordered D ate First Ordered Date ECG 12-LEAD 2 11/24/2024 11/22/2024 General Supply Count Last Ordered Date First Or dered Date IAN HOSE KNEE LG REGULAR PAIR (S70161) 1 IAN HOSE KNEE MED REGULAR PAIR ([id number]) 1 0 11/22/2024 IAN HOSE THIGH LG REGULAR PAIR ([id number]) 1 0 11/22/2024 Diet Count Last Ordered Date First Orde red Date ADULT DIET 1 11/26/2024 ADULT DISCHARGE DIET 1 11/23/2024 Nursing Count Last Ordered Date First Orde red Date DISCHARGE ACTIVITY 4 11/23/2024 DISCHARGE CALL PROVIDER 2 11/23/2024 DISCHARGE DRESSING 5 11/23/2024 DISCHARGE INSTRUCTIONS 1 11/23/2024 NOTIFY PROVIDER (SPECIFY) 7 11/22/2024 NURSING COMMUNICATION 6 11/22/20242024 ACTIVITY 1 11/19/2024 DAILY WEIGHTS 1 11/19/2024 DISCONTINUE VASCULAR ACCESS (SPECIFY) 1 04/2025 RAVI CATHETER - DISCONTINUE 1 11/19/2024 NEUROLOGICAL CHECKS 1 11/19/2024 STRICT INTAKE AND OUTPUT 1 11/19/2024 VITAL SIGNS 1 11/19/2024 ARTERIAL LINE CHECK 1 11/18/2024 ASSESS 1 11/18/2024 ELEVATE HOB 1 11/18/2024 INCENTIVE SPIROMETRY NURSING 1 11/18/2024 INTAKE AND OUTPUT 1 11/18/2024 MAINTAIN IV ACCESS 1 11/18/2024 Code Status Count Last Ordered Date First Orde red Date LIMITED CODE 1 11/18/2024 Consult Count Last Ordered Date First Orde red Date CONSULT TO ENDOCRINOLOGY DIABETES 1 025 CONSULT TO WOUND CARE 2 11/24/20242024 AUTHORIZATION FOR POST-ACUTE CARE 1 025 IP CONSULT TO SPIRITUAL CARE 1 11/22/2024 Nourishments Count Last Ordered Date First Orde red Date SNACKS 1 11/22/2024 OT Count Last Ordered Date First Orde red Date OT EVALUATE AND TREAT 1 11/19/2024 PT Count Last Ordered Date First Orde red Date PT EVALUATE AND TREAT 1 11/19/2024 Admission Count Last Ordered Date First Orde red Date ADMIT TO INPATIENT 1 11/19/2024 INITIATE OBSERVATION SERVICES 1 11/18/2024 Discharge Count Last Ordered Date First Orde red Date DISCHARGE PATIENT 1 11/30/2024 Precaution Count Last Ordered Date First Orde red Date FALL PRECAUTIONS 1 11/18/2024 BI PRECAUTIONS 1 11/18/2024 CORE MEASURES Count Last Ordered Date First Ord ered Date REASON FOR NO VTE PROPHYLAXIS AT ADMISSION 1 11/18/2024 ADT Patient Update Count Last Ordered Date Firs t Ordered Date UPDATE LEVEL OF CARE/SERVICE 1 11/19/2024 documented in this encounter Additional Health Concerns Infection Onset Date Last Indicated Resolved Time CRE Comment:Contact Precautions (gown and gloves) RAMYA Au 09/25/22 08/16/2022 08/16/2022 MDR gram neg/ESBL Comment:Contact Precautions (gown and gloves) RAMYA Au 09/25/22 08/16/2022 08/16/2022 documented as of this encounter Care Teams Director Of Home Economics Relationship Specialty Start Date End Date Juni Hays MD [address] [facility] [address] [address] PCP - General Internal Medicine 08/18/24 Kingston Jain DO [address] [place] [address] [address] Consulting Physician Cardiovascular Disease 06/20/20 Candido Lobato MD [address] [facility], [facility] [address] [place] [address] Medical Oncology 05/02/23 [place] [address] [facility] [address] [place] [address] Physician Utility Accounts Director Orthopedic Surgery 06/16/24 documented as of this encounter
--- OUTSIDE RECORDS SUMMARY | 2024-11-30 18:15 | XMS_ITS ---
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 needed. Chest pain 06/26/2022 02/06/2023 Overview (06/26/2022): Added automatically from request for surgery [id number] Family history of colon cancer 12/14/2021 02/06/2023 Low serum vitamin B12 12/14/20212021 BRBPR (bright red blood per rectum) 12/14/2021 02/06/2023 Atherosclerotic heart diseas e of [place] coronary artery without angina pectoris 09/03/2020 02/06/2023 Assessment & Plan (01/20/2023 6:16 AM CDT): Continue current medication regimen follow up with can washer as they direct. Assessment & Plan (09/25/2021 11:23 AM [employer]): Continue current medication regimen follow up with her can washer as they direct Assessment & Plan (02/09/2021 9:13 AM CDT): Continue current medication regimen and follow up with can washer as they direct. Assessment & Plan (09/26/2020 9:26 AM [employer]): Continue aspirin, atorvastatin, carvedilol, Entresto and follow up with can washer as they direct. Assessment & Plan (09/03/2020 3:26 PM [employer]): Continue current medication regimen and follow up with her can washer as they direct. At low risk for fall 09/03/2020 022 Assessment & Plan (09/03/2020 3:36 PM [employer]): Timed get up and go test normal. Abnormal TSH 08/31/2020 02/09/2021 Acute respiratory failure wi th hypoxia (CMS/HCC) 06/15/2020 02/09/2021 Pneumonia 06/15/2020 02/09/2021 Hemoglobin A1C greater than 9%, indicating poor diabetic control 02/21/2020 02/09/2021 Type 2 diabetes mellitus wit hout complication, without long-term current use of insulin (CMS/[facility]) 12/28/2019 08/31/2020
--- OUTSIDE RECORDS SUMMARY | 2024-11-30 18:16 | XMS_ITS | Encounter Summary ---
Author Organization [facility] Healthcare Address [address] [place] [address] Care Team Providers Care Water Meter Reader Name Role Phone Kingston Jain DO Unavailable [phone] Candido Lobato MD Unavailable [phone] Kelli Bassett Unavailable [phone] Juni Hays MD Primary Care Provider [phone] Encounter Details Date Type Department Care Team (Late st Contact Info) Description 08/22/2024 Orders Only [facility] Health Information Management [address] [place] [address] Scanning, Provider Social History Tobacco Use Types Packs/Day Years Used Date Smoking Tobacco: Former Cigarettes 1 5 1 983 - 1987 Smokeless Tobacco: Never Alcohol Use Standard Drinks/Week Comments No 0 (1 standard drink = 0.6 oz pur e alcohol) [facility] Utilities Answer Date Recorded In the past 12 months has [employer] electric, gas, oil, or water company threatened to shut off services in your home? No 08/23/2024 Social Connection and Isolat ion Panel [NHANES] Answer Date Recorded In a typical week, how many times do you talk on the phone with family, friends, or neighbors? More than three times a week 08/23/2024 How often do you get togethe r with friends or relatives? More than three times a week 08/23/2024 How often do you attend chur ch or scientologist services? 1 to 4 times per year 08/23/2024 Do you belong to any clubs o r organizations such as jew groups, unions, fraternal or athletic groups, or school groups? No 08/23/2024 How often do you attend meet ings of the clubs or organizations you belong to? Never 08/23/2024 Are you , , di vorced, , never , or living with a partner? 08/23/2024 AUDIT-C Answer Date Recorded Q1: How often [...] care, and heating? Not hard at all 08/23/2024 PHQ-2 Answer Date Recorded PHQ-2 Total Score 3 08/23/2024 Hunger Vital Sign Answer Date Recorded Within the past 12 months, y ou worried that your food would run out before you got the money to buy more. Never true 08/23/20 24 Within the past 12 months, t he food you bought just didn't last and you didn't have money to get more. Never true 08/23/2024 PRAPARE - Transportation Answer Date Re corded In the past 12 months, has l ack of transportation kept you from medical appointments or from getting medications? No 08/13 In the past 12 months, has l ack of transportation kept you from meetings, work, or from getting things needed for daily living? No 08/23/2024 Housing Stability Vital Sign Answer Israel e [...] the mortgage or rent on time? No 08/23/2024 In the past 12 months, how m any times have you moved where you were living? 1 08/23/2024 At any time in the past 12 m [facility], were you homeless or living in a halfway (including now)? No 08/23/2024 Personal Safety Answer Date Recorded Have you ever been in or are you currently in a harmful physical or emotional relationship or is someone making you feel afraid or unsafe? Denies 08/26/2024 Education Answer Date Recorded What is the highest level of school you have completed or the highest degree you have received? Some college, no degree 03/25/2023 Comments No Sex and Gender Information Value Date Recorded Sex Assigned at Not on file Legal Sex Female 2:31 PM INSPECTOR HAIRSPRING Gender Identity Not on file Sexual Orientation Not on file Occupation Industry Job Start Date Job End Date On Disability Not on file Not on file Not on file documented as of this encounter Functional Status * Audit-C Score Answer Date of Assessment Author 0 08/23/2024 12:36 AM Vanessa Cast RN * Question Answer Date of Assessment Author Q1: How often do you have a drink containing alcohol? Never 08/23/2024 12:36 AM Vanessa Morrison RN Q2: How many drinks containing alcohol do you have on a typical day when you are drinking? Patient does not drink 08/23/2024 12:36 AM Vanessa Morrison RN Q3: How often do you have six or more drinks on one occasion? Never 08/23/2024 12:36 AM Vanessa Morrison RN documented as of this encounter Plan of [...] take, when to call CM or provider. [facility] Chronic Pain Care Plan Chronic Care Management [...] stairs Contact your local community or [facility] for information on exercise, fall prevention programs, or options for improving home safety. documented as of this encounter Procedures Procedure Name Priority Date/Time Associated Diagnosis Comments SCAN - RADIOLOGY/IMAGING 08/22/2024 documented in this encounter Results * SCAN - RADIOLOGY/IMAGING (08/22/2024) Anatomical Region Laterality Modality Other us Provider Scanning Edited Result - Final documented in this encounter Visit Diagnoses Not on filedocumented in this encounter Additional Health Concerns Infection Onset Date Last Indicated Resolved Time CRE Comment:Contact Precautions (gown and gloves) RAMYA Au 09/25/22 08/16/2022 08/16/2022 MDR gram neg/ESBL Comment:Contact Precautions (gown and gloves) RAMYA Au 09/25/22 08/16/2022 08/16/2022 documented as of this encounter Care Teams Water Meter Reader Relationship Specialty Start Date End Date Juni Hays MD [address] [facility] [address] [place] [address] PCP - General Internal Medicine 08/18/24 Kingston Jain DO [address] [place] [address] Consulting Physician Cardiovascular Disease 06/20/20 Candido Lobato MD [address] [facility] MEDICAL ONCOLOGY, [facility] [address] [place] [address] Medical Oncology 05/02/23 [place] [address] [facility] [address] [place] [address] Physician Vendor Management Specialist Orthopedic Surgery 06/16/24 documented as of this encounter
--- OUTSIDE RECORDS SUMMARY | 2024-11-30 18:16 | XMS_ITS | Encounter Summary ---
Author Organization [facility] Address [address] [place] [address] Phone Care Team Providers Care Button Riveter Name Role Phone Gilda Marques MD Primary Care Provider + [phone] Juni Hays MD Primary Care Provider [phone] Shivam Benedict MD Unavailable Radha Crews MANAGER ENROLLMENT, [facility] Unavailable + [phone] Sacha Penn MD Unavailable [phone] Reason for Visit * Reason Comments Medication Refill Encounter Details Date Type Department Care Team (Late st Contact Info) Description 02/24/2020 Refill [facility] - Neurology - [place] [address] [facility] [place] [address] Sacha Penn MD [address] [place] [address] Medication Refill Social History Tobacco Use Types Packs/Day Years Used Date Smoking Tobacco: Former Cigarettes Q uit: 10/13/1987 Smokeless Tobacco: Never Alcohol Use Standard Drinks/Week Comments No 0 (1 standard drink = 0.6 oz pur e alcohol) Comments No Sex and Gender Information Value Date Recorded Sex Assigned at Not on file Legal Sex Female 11:41 PM CDT Gender Identity Not on file Sexual Orientation Not on file COVID-19 Exposure Response Date Recorded In the last month, have you been in contact with someone who was confirmed or suspected to have Coronavirus / COVID-19? No / Unsure 02/24/2020 12:14 PM CDT documented as of this encounter Plan of Treatment Not on file documented as of this encounter Visit Diagnoses Not on filedocumented in this encounter Care Teams Button Riveter Relationship Specialty Start Date End Date Gilda Marques MD [address] [facility] [address] [place] [address] PCP - General Family Medicine 07/13/18 10/16/20 Juni Hays MD [address] [facility] [address] [place] [address] PCP - General Internal Medicine 10/17/20 Shivam Benedict MD [address] [place] [address] Consulting Physician Pulmonary Disease 12/27/21 Radha Crews APRN, COTTON PICKING MACHINE OPERATOR [address] [place] [address] Nurse Practitioner Advanced Practice Nurse 01/04/22 Sacha Penn MD [address] [place] [address] Consulting Physician Neurology 07/25/23 documented as of this encounter
--- OUTSIDE RECORDS SUMMARY | 2024-11-30 18:16 | XMS_ITS | Encounter Summary ---
Author Organization [facility] Address [address] [place] [address] Phone Care Team Providers Care Service Cleaner Name Role Phone Juni Hays MD Primary Care Provider [phone] Shivam Benedict MD Unavailable Radha Crews APRN, BURR GRINDER Unavailable + [phone] Sacha Penn MD Unavailable [phone] Reason for Visit * Reason Comments Medication Refill Encounter Details Date Type Department Care Team (Late st Contact Info) Description 04/25/2021 Refill [facility] - Neurology [facility] [address] [place] [id number] Radha Crews APRN, BURR GRINDER [address] [place] [address] Medication Refill Social History Tobacco Use Types [...] migrainosus documented in this encounter Care Teams Service Cleaner Relationship Specialty Start Date End Date Juni Hays MD PCP - General Internal Medicine 10/17/20 Shivam Benedict MD [address] [place] [address] Consulting Physician Pulmonary Disease 12/27/21 Radha Crews, SUPPLY CHAIN ANALYST, BURR GRINDER [address] [place] [address] Nurse Practitioner Advanced Practice Nurse 01/04/22 Sacha Penn MD [address] [place] [address] Consulting Physician Neurology 07/25/23 documented as of this encounter
--- OUTSIDE RECORDS SUMMARY | 2024-11-30 18:16 | XMS_ITS | Encounter Summary ---
Author Organization [facility] Healthcare Address [address] [place] [address] Care Team Providers Care Due Diligence Coordinator Name Role Phone Kingston Jain DO Unavailable [phone] Juni Hays MD Primary Care Provider [phone] Candido Lobato MD Unavailable [phone] Kelli Bassett Unavailable [phone] Juni Hays MD Primary Care Provider [phone] Encounter Details Date Type Department Care Team (Late st Contact Info) Description 06/06/2023 Telephone [facility] Radiology [address] [place] [address] Kristy Lopez, RN Social History Tobacco Use Types Packs/Day Years Used Date Smoking Tobacco: Former Cigarettes 1 5 1 983 - 1987 Smokeless Tobacco: Never Alcohol Use Standard Drinks/Week Comments No 0 (1 standard drink = 0.6 oz pur e alcohol) Social Connection and Isolat ion Panel [NHANES] Answer Date Recorded In a typical week, how many times do you talk on the phone with family, friends, or neighbors? More than three times a week 03/25/2023 How often do you get togethe r with friends or relatives? Twice a week 03/25/2023 How often do you attend chur ch or scientologist services? Never 03/25/2023 Do you belong to any clubs o r organizations such as mormon groups, unions, fraternal or athletic groups, or school groups? No 03/25/2023 How often do you attend meet ings of the clubs or organizations you belong to? Never 03/25/2023 Are you , , di vorced, , never , or living with a partner? 03/25/2023 AUDIT-C Answer Date Recorded Q1: How often do you have a drink containing alcohol? Never 04/16/2023 Q2: How many drinks containi ng alcohol do you have on a typical day when you are drinking? Patient does not drink Q3: How often do you have si x or more drinks on one occasion? Never 04/16/2023 Overall Financial Resource Strain (CARDIA) Answe r Date Recorded How hard is it for you to pa y for the very basics like food, housing, medical care, and heating? Not hard at all 03/25/2023 PHQ-2 Answer Date Recorded PHQ-2 Total Score (If total score is 3 or more points, staff should administer the PHQ-9) 0 04/11/2023 Hunger Vital Sign Answer Date Recorded Within the past 12 months, y ou worried that your food would run out before you got the money to buy more. Never true 03/25/20 23 Within the past 12 months, t he food you bought just didn't last and you didn't have money to get more. Never true 03/25/2023 PRAPARE - Transportation Answer Date Re corded In the past 12 months, has l ack of transportation kept you from medical appointments or from getting medications? No 03/13 In the past 12 months, has l ack of transportation kept you from meetings, work, or from getting things needed for daily living? No 03/25/2023 Housing Stability Vital Sign Answer Israel e Recorded In the last 12 months, was t here a time when you were not able to pay the mortgage or rent on time? No 03/25/2023 In the last 12 months, how many places have you lived? 1 03/25/2023 In the last 12 months, was t here a time when you did not have a steady place to sleep or slept in a snf (including now)? No 03/25/2023 Education Answer Date Recorded What is the highest level of school you have completed or the highest degree you have received? Some college, no degree 03/25/2023 Comments No Sex and Gender Information Value Date Recorded Sex Assigned at Not on file Legal Sex Female 2:31 PM HELP DESK ASSISTANT Gender Identity Not on file Sexual Orientation [...] and how to respond ACO Care Management No Matilda Benitez, RAMYA Note: Problem: Knowledge deficit related to signs [...] take, when to call CM or provider. [facility] Chronic Pain Care Plan Chronic Care [...] on stairs Contact your local community or [facility] for information on exercise, fall prevention [...] COVID: Suspected 10/29/2023 10/29/2023 10/29/2023 1:03 PM HELP DESK ASSISTANT Influenza, adult 10/29/2023 10/29/2023 11/05/2023 3:07 AM HELP DESK ASSISTANT COVID: Suspected 01/18/2024 01/18/2024 01/18/2024 5:24 PM CDT documented as of this encounter Care Teams Due Diligence Coordinator Relationship Specialty Start Date End Date Juni Hays MD [address] [place] [address] [address] PCP - General Internal Medicine 08/04/20 08/17/24 Juni Hays MD [address] [facility] [address], [place] [address] PCP - General Internal Medicine 08/18/24 Kingston Jain DO [address] [place] [address] [address] [place] [address] Consulting Physician Cardiovascular Disease 06/20/20 Candido Lobato MD [address] [facility] MEDICAL ONCOLOGY, [facility] [address], [address] [place] [address] Medical Oncology 05/02/23 [place] [address] [facility] [address] [place] [address] Physician Cath Lab Radiology Technician Orthopedic Surgery 06/16/24 documented as of this encounter
--- OUTSIDE RECORDS SUMMARY | 2024-11-30 18:16 | XMS_ITS | Encounter Summary ---
Author Organization [facility] Healthcare Address [address] [place] [address] Care Team Providers Care Marketing/Sales Person Name Role Phone Kingston Jain DO Unavailable [phone] Juni Hays MD Primary Care Provider [phone] Candido Lobato MD Unavailable [phone] Kelli Bassett Unavailable [phone] Juni Hays MD Primary Care Provider [phone] Reason for Visit * Reason Onset Date Comments Shortness of Breath 08/16/2024 Hyperglycemia 08/16/2024 Encounter Details Date Type Department Care Team (Late st Contact Info) Description 08/16/2024 Nurse Triage [facility] Medical Group Primary Care at [facility] [address] [facility] [address] [place] [address] Juni Hays MD [address] [place] [address] Social History Tobacco Use Types Packs/Day Years Used Date Smoking Tobacco: Former Cigarettes 1 5 1 983 - 1987 Smokeless Tobacco: Never Alcohol Use Standard Drinks/Week Comments No 0 (1 standard drink = 0.6 oz pur e alcohol) [facility] Utilities Answer Date Recorded In the past 12 months has th e electric, gas, oil, or water company threatened [...] often do you attend chur ch or pentecostal services? More than 4 times per year 11/22/2024 Do you belong to any clubs o r organizations such as hoahaoism groups, unions, fraternal or athletic groups, or [...] place to sleep or slept in a group home (including now)? No 01/06/2024 Housing Stability Vital Sign Answer Israel e Recorded In the last 12 months, was t here a time when you were not able to pay the mortgage or rent on time? No 11/22/2024 In the past 12 months, how m any times have you moved where you were living? 0 11/22/2024 At any time in the past 12 m [facility], were you homeless or living in a group home (including now)? No 11/22/2024 Personal Safety Answer [...] on file Legal Sex Female 2:31 PM PEAR PICKER Gender Identity Not on file Sexual Orientation [...] does not drink 08/23/2024 12:36 AM Vanessa Morrison, RN Q3: How often do you have six or more drinks on one occasion? Never 08/23/2024 12:36 AM PEAR PICKER de Vanessa Bishop RN documented as of this encounter Miscellaneous Notes * Telephone Encounter - Evelyne Barkley RN - 08/16/2024 11:31 AM CST Go to ED Now disposition due to BSs in the 500s, now down to 410 with 7 extra units of Humalog this am, rapid breathing, spo2 dropping to as low as 86% while on cont 3L, but it goes right back up again to 97%, normal spo2 on 3L is 97%. If she ambulates to the bathroom and back without oxygen [id number] to as low as 83%. Is very thirsty, breathing more rapidly than usual, BP lower today at 100/60 then 92/58. Denies confusion. Home health nurse left urine collection cup, but they would need an order for a UA. Ankles are very swollen. Spoke to daughter Ana who seems very knowledgeable. She ishoping she can give her an extra dose or more of Lasix. This RN's opinion is patient should proceedto ED but she is adamantly refusing. Provider Juni Hays MD contacted via secure chat for ED disposition consult. Recommendationfrom provider: Proceed to ED Blood sugars for anyone in the 500's is enough of a concern for an ERvisit but with her complex history and also increased hypoxia and shortness of breath and edema, she needs to go. RN suggested she go by ambulance so she can be on oxygen for her trip to the hospital. Any ER is fine, if symptoms are bad enough it is possible that they will ship her to a full service ER. Reason for Disposition Blood glucose > 240 mg/dL (13.3 mmol/L) and rapid breathing Protocols used: Diabetes - High Blood Raois-PMCYV-XP PICKER * Telephone Encounter - Evelyne Barkley RN - 08/16/2024 11:25 AM CST Regarding: low oxygen saturation(mid 80s), low blood pressure, blood sugar concerns. ----- Message from Misti Alves sent at 08/16/2024 11:23 AM PEAR PICKER ----- Symptom Based Call Chief Complaint(s): low oxygen saturation(mid 80s), low blood pressure, blood sugar concerns. Duration: 3 days. What type of symptom(s) is the patient experiencing? Red Flag. Is the patient concerned they are experiencing a medical emergency requiring an ambulance? No Additional Comments: Patient's daughter called to state that the patient's glucose is at 550, down to 504 today, still working to get it down. They gave the patient a shower yesterday, and it was 25 minutes without oxygen and the patient did okay. Today the oxygen saturation is dropping to mid 80s.The patient went to the bathroom this morning for 5 minutes without oxygen and it went down to 80. Which also happened over the weekend. Also monitoring glucose, gave supplement dose of insulin, 7 units per the advice of the manager bilingual. The patient's bp is around 100/high 50 or low 60s, naturally runs low. normally a little higher than that. Was advised by the manager bilingual to get a recomme ndation from pcp as well. Does message need to be routed? Yes-Action Needed PICKER documented in this encounter Plan of Treatment [...] Plan Chronic Care Management Yes Arelis Parkinson, RAMYA Note: Problem: Chronic Pain Goals: 1. Minimize [...] on stairs Contact your local community or [facility] for information on exercise, fall prevention [...] documented as of this encounter Care Teams Marketing/Sales Person Relationship Specialty Start Date End Date Juni Hays MD [address] [place] [address] [address] [place] [address] PCP - General Internal Medicine 08/04/20 08/17/24 Juni Hays MD [address] [address] PCP - General Internal Medicine 08/18/24 Kingston Jain DO [address] [place] [address] [place] [address] Consulting Physician Cardiovascular Disease 06/20/20 Candido Lobato MD [address] [facility], [facility] [address], [address] [place] [address] Medical Oncology 05/02/23 [place] [address] [facility] [address] [place] [address] Physician Dance Entertainer Orthopedic Surgery 06/16/24 documented as of this encounter
--- OUTSIDE RECORDS SUMMARY | 2024-11-30 18:16 | XMS_ITS | Encounter Summary ---
Author Organization [facility] Healthcare Address [address] [place] [address] Care Team Providers Care Supply Chain Intern Name Role Phone Kingston Jain DO Unavailable [phone] Candido Lobato MD Unavailable [phone] Kelli Bassett Unavailable [phone] Juni Hays MD Primary Care Provider [phone] Reason for Visit * Reason Onset Date Comments Test Results 11/04/2024 Encounter Details Date Type Department Care Team (Late st Contact Info) Description 11/04/2024 Telephone [facility] Medical Group Primary Care at [facility] [address] [facility] [address] [place] [id number] Juni Hays MD [address] [address] Test Results Social History Tobacco Use Types Packs/Day Years Used Date Smoking Tobacco: Former Cigarettes 1 5 1 3 - 1987 Smokeless Tobacco: Never Alcohol Use Standard Drinks/Week Comments No 0 (1 standard drink = 0.6 oz pur e alcohol) [facility] Utilities Answer Date Recorded In the past 12 months has [employer], gas, oil, or water company threatened to [...] often do you attend chur ch or zoroastrianism services? 1 to 4 times per year 11/08/2024 Do you belong to any clubs o r organizations such as zoroastrianism groups, unions, fraternal or athletic groups, or [...] any time in the past 12 m [facility], were you homeless or living in a senior care (including now)? No 11/08/2024 Personal Safety Answer [...] on file Legal Sex Female 2:31 PM DIRECTOR OF HEALTHCARE SYSTEMS Gender Identity Not on file Sexual Orientation Not on file Occupation Industry Job Start Date Job End Date On Disability Not on file Not on file Not on file documented as of this encounter Miscellaneous Notes * Telephone Encounter - Sugar Carlisle NP - 11/05/2024 7:56 AM CST Addressed in separate anticoagulation telephone encounter. CTOR OF HEALTHCARE SYSTEMS * Telephone Encounter - Rekha Chiu - 11/04/2024 4:29 PM CST Test Result Relayed to Practice Date of Test: 11/04/24 Type of Test: PT/INR Is this a critical lab result? No Test result details: PT/INR 1.5 Additional Comments/Concerns: Zoie yang/Helio [facility] called in with most recent PT/INR results done today to really to Dr. Hays Does message need to be routed? Yes-Action Needed [employer]OR [facility] HEALTHCARE SYSTEMS documented in this encounter Plan of Treatment Not on file documented as of this encounter Goals Goal Patient Goal Type Associated Problems Recent Progress Patient-Stated? Author CARLO General Goal - Patient is knowledgeable about condition when worsening and how to respond ACO Care Management No Matilda Benitez RN Note: Problem: Knowledge deficit related to [...] take, when to call CM or provider. [facility] Chronic Pain Care Plan Chronic Care [...] on stairs Contact your local community or [facility] for information on exercise, fall prevention programs, or options for improving home safety. documented as of this encounter Visit Diagnoses Not on filedocumented in this encounter Additional Health Concerns Infection Onset Date Last Indicated Resolved Time CRE Comment:Contact Precautions (gown and gloves) RAMYA Au 09/25/22 08/16/202208/16/2022 MDR gram neg/ESBL Comment:Contact Precautions (gown and gloves) RAMYA Au 09/25/22 08/16/2022 08/16/2022 documented as of this encounter Care Teams Supply Chain Intern Relationship Specialty Start Date End Date Juni Hays MD [address] [facility] [address] [place] [address] PCP - General Internal Medicine 08/18/24 Kingston Jain DO [address] [place] [address] [address] Consulting Physician Cardiovascular Disease 06/20/20 Candido Lobato MD [address] [facility] DIV MEDICAL ONCOLOGY, [facility] [address] [place] [address] Medical Oncology 05/02/23 [place] [address] [address] [facility] [address] [place] [address] Physician Manager Work Orthopedic Surgery 06/16/24 documented as of this encounter
--- OUTSIDE RECORDS SUMMARY | 2024-11-30 18:16 | XMS_ITS | Encounter Summary ---
Author Organization [facility] Address [address] [place] [address] Phone Care Team Providers Care Victorian Literature Professor Name Role Phone Gilda Marques MD Primary Care Provider [phone]- [phone] Juni Hays MD Primary Care Provider [phone] Shivam Benedict MD Unavailable Radha Crews APRN, [facility] Unavailable + [phone] Sacha Penn MD Unavailable [phone] Reason for Referral * Radiology Services (Routine) - Closed Specialty Diagnoses / Procedures Referred By Contsarahy t Referred To Contact Radiology Diagnoses Pre-op testing Procedures EKG 12 LEAD Gabriel Lake DO [address] [place] [address] Phone: tel: fax: Referral ID Status Reason Start Date Expiration Date Visits Re quested Visits Authorized [id number] Closed 02/24/2020 1 1 Encounter Details Date Type Department Care Team (Late st Contact Info) Description 02/24/2020 Transcribe Orders [facility] Preop/Pacu II 1 [facility] [place] [address] Prosper Tolbert MD [address] [facility], [address] [place] [address] Pre-op testing (Primary Dx) Social History Tobacco Use Types Packs/Day Years [...] on file documented as of this encounter Results * EKG 12 LEAD (02/25/2020 10:28 AM CDT) Ventricular Rate BPM EXTERNAL EKG Atrial Rate BPM EXTERNAL EKG P-R Interval 112 ms EXTERNAL EKG QRS Duration 84 ms EXTERNAL EKG Q-T Duration 364 ms EXTERNAL EKG QTC CALCULATION 480 ms EXTERNAL EKG P [place] 50 degrees EXTERNAL EKG R [place] 13 degrees EXTERNAL EKG T [place] 10 degrees EXTERNAL EKG 02/25/2020 10:2 8 AM CDT Impressions EXTERNAL EKG - 02/25/2020 12:31 PM CDT Sinus tachycardia Poor R wave progression - probable normal variant Comparison Summary: No serial comparison made Summary: Borderline ECG Confirmed by Azam Alves [id number] on 02/25/2020 12:31:07 PM Narrative Procedure Note Tammy Nascimento MD - 02/25/2020 IMPRESSION: Sinus tachycardia Poor R wave progression - probable normal variant Comparison Summary: No serial comparison made Summary: Borderline ECG Confirmed by Azam Alves [id number] on 02/25/2020 12:31:07 PM Gabriel Lake DO IMG ECG ORDERABLES Final Result EXTERNAL EKG * (ABNORMAL) BASIC METABOLIC PANEL W/ CALCIUM TOTAL (02/25/2020 9:46 AM CDT) SODIUM 139 136 - 144 mmol/L 02/25/2020 10:51 AM CDT [facility] POTASSIUM 4.0 3.5 - 5.1 mmol/L 02/25/2020 10:51 AM CDT [facility] CHLORIDE 95(L) 100 - 110 mmol/L 02/25/2020 10:51 AM CDT [facility] CO2, VENOUS 29 22 - 32 mmol/L 02/25/2020 10:51 AM CDT [facility] ANION GAP 19.0 8.0 - 20.0 mmol/L 02/25/2020 10:51 AM CDT [facility] GLUCOSE 186(H) 70 - 99 mg/dL 02/25/2020 10:51 AM CDT [facility] BUN 16 6 - 20 mg/dL 02/25/2020 10:51 AM CDT [facility] CREATININE, BLOOD 0.61 0.60 - 1.10 mg/dL 02/25/2020 10:51 AM CDT [facility] BUN/CREATININE RATIO 26(H) 12 - 20 ratio 02/25/2020 10:51 AM CDT [facility] CALCIUM 10.4(H) 8.9 - 10.3 mg/dL 02/25/2020 10:51 AM CDT [facility] GFR, EST. NONAFRICAN >60 >=60 02/25/2020 10:51 AM CDT [facility] GFR, EST. >60 >=60 02/25/2020 10:51 AM CDT [facility] Comment: Creatinine Clearance is the preferred criteria for selecting drug dose adjustments in renally impaired patients. The GFR is provided as additional pertinent clinical information. GFR is reported in mL/min/1.73 sq m. Blood Venipuncture / Unknown 02/25/2020 9:46 AM CDT 02/25/2020 10:29 AM CDT Gabriel Jimenez Jaya KAUFMAN CHEMISTRY ORDERABLE S Final Result Performing Organization Address City/[facility]/ZIP Co de Phone Number [facility] [address] [place] [address] * HEMOGLOBIN & HEMATOCRIT (H&H) (02/25/2020 9:46 AM CDT) HEMOGLOBIN (HGB) 13.5 12.0 - 15.8 g/dL 02/25/2020 10:35 AM CDT [facility] HEMATOCRIT (HCT) 45.9 36.0 - 47.0 % 02/25/2020 10:35 AM CDT [facility] Blood Venipuncture / Unknown 02/25/2020 9:46 AM CDT 02/25/2020 10:29 AM CDT Gabrieljey Jimenez Jaya KAUFMAN HEMATOLOGY ORDERABL ES Final Result Performing Organization Address [facility] de Phone Number [facility] [address] [place] [address] * SARS-COV-2 BY PCR (02/25/2020 9:46 AM CDT) SARSCOV2 Sent to Non Interfaced Lab. See COVID-19 by rn advanced-PCR, Non Interfaced Lab for results. (Referenc e Range for this test is Not Detected) 02/26/2020 11:08 AM CDT [facility] Swab NASOPHARYNGEAL STRUCTURE / Unknown Non-Phlebotomy Collection / Unknown 02/25/2020 9:46 AM CDT 02/25/2020 10:05 AM CDT Prosper Tolbert MD MICROBIOLOGY - GENERAL ORDERABLES Final Result Performing Organization Address City/[facility]/ZIP Co de Phone Number [facility] documented in this encounter Visit Diagnoses Diagnosis Pre-op testing- Primary Preoperative examination, unspecified Pre-op testing Preoperative examination, unspecified documented in this encounter Care Teams Victorian Literature Professor Relationship Specialty Start Date End Date Gilda Marques MD [address] [place] [address] PCP - General Family Medicine 07/13/18 10/16/20 Juni Hays MD [address] [place] [address] PCP - General Internal Medicine 10/17/20 Shivam Benedict MD [address] [place] [address] Consulting Physician Pulmonary Disease 12/27/21 Radha Crews, STADIUM ATTENDANT, CREAM HAULER [address] [place] [address] Nurse Practitioner Advanced Practice Nurse 01/04/22 Sacha Penn MD [address] [place] [address] Consulting Physician Neurology 07/25/23 documented as of this encounter
--- OUTSIDE RECORDS SUMMARY | 2024-11-30 18:16 | XMS_ITS | Encounter Summary ---
Author Organization [facility] Address [address] [place] [address] Phone Care Team Providers Care Performance Consultant Name Role Phone Gilda Marques MD Primary Care Provider + [phone] Juni Hays MD Primary Care Provider [phone] Shivam Benedict MD Unavailable Radha Crews ROVING CAN TENDER, [facility] Unavailable + [phone] Sacha Penn MD Unavailable [phone] Reason for Visit * Reason Comments Medication Refill Encounter Details Date Type Department Care Team (Late st Contact Info) Description 09/02/2020 Refill [facility] - Neurology - [place] [address] [facility] [place] [address] Sacha Penn MD [address] [place] [address] Medication Refill Social History Tobacco [...] on filedocumented in this encounter Care Teams Performance Consultant Relationship Specialty Start Date End Date Gilda Marques MD [address] [place] [address] PCP - General Family Medicine 07/13/18 10/16/20 Juni Hays MD [address] [place] [address] PCP - General Internal Medicine 10/17/20 Shivam Benedict MD [address] [place] [address] Consulting Physician Pulmonary Disease 12/27/21 Radha Crews, ROVING CAN TENDER, ROLLWAY WORKER [address] [place] [address] Nurse Practitioner Advanced Practice Nurse 01/04/22 Sacha Penn MD [address] [place] [address] Consulting Physician Neurology 07/25/23 documented as of this encounter
--- OUTSIDE RECORDS SUMMARY | 2024-11-30 18:16 | XMS_ITS | Clinical Summary ---
[facility] Address [address] [place] [address] Care Team Providers Care Event Promoter Name Role Phone Unavailable Primary Care Provider Unavailabl e Allergies Active Allergy Reactions Criticality Noted Date Comments Amitriptyline Other (See Comments) 07/13/2019 Caused severe waking nightmares Nitrofurantoin Diarrhea,Nausea and Vomiting Low 07/13/2019 Sulfa (Sulfonamide Antibiotics) Other (See Comments) 07/13/2019 Non life threatening hepatitis Tizanidine Hallucination Low 07/13/2019 Trazodone Nausea and Vomiting Low 07/13/2019 Medications levothyroxine 137 mcg tablet daily. 01/19/2019 Acti ve DULoxetine (CYMBALTA) 60 mg Capsule, Delayed Release(E.C.) daily. 01/19/2019 Activ e losartan (COZAAR) 100 mg tablet Take 100 mg by mouth. Active cyclobenzaprine (FLEXERIL) 5 mg Tablet as needed. Active atorvastatin (LIPITOR) 20 mg tablet Take 20 mg by mouth. Active rizatriptan (MAXALT) 10 mg Tablet 1 06/16/2019 Active HYDROcodone-acet aminophen (NORCO) 7.5-325 mg Tablet as needed. Active aspirin (ECOTRIN EC) 81 mg Tablet, Delayed Release (E.C.) Take 81 mg by mouth. Active esomeprazole (NexIUM) 40 mg Capsule, Delayed Release(E.C.) Take 40 mg by mouth. Active topiramate (TOPAMAX) 25 mg tablet Take 25 mg by mouth 2 times daily. Active furosemide (LASIX) 20 mg tablet Take 20 mg by mouth daily. Active Active Problems Patient Care Coordination No te Formatting of this note migh t be different from the original. Primary Care: No primary care provider on file. Referring Provider: Essie Paul DO [facility] [address] [place] [phone] Other: No known active problems Family History Medical History Relation Name Comments Ovarian Cancer Maternal Aunt 1 Breast Cancer Maternal Aunt 2 Breana Breast Cancer Mother Relation Name Status Comments Maternal Aunt 1 Maternal Aunt 2 Breana Mother Alive Social History Tobacco Use Types Packs/Day Years Used Date Smoking Tobacco: Never Smokeless Tobacco: Never Alcohol Use Standard Drinks/Week Comments Not Currently 0 (1 standard drink = 0.6 oz pur e alcohol) Comments No Sex and Gender Information Value Date Recorded Sex Assigned at Not on file Legal Sex Female 4:10 PM CDT Gender Identity Not on file Sexual Orientation Not on file Last Filed Vital Signs Vital Sign Reading Time Taken Comments Blood Pressure 153/98 07/13/2019 2:25 PM CDT Pulse 103 07/13/2019 2:25 PM CDT Temperature - - Respiratory Rate - - Oxygen Saturation - - Inhaled Oxygen Concentration - - Weight 81.6 kg (180 lb) 07/13/2019 2:25 PM CDT Height 161.3 cm (5' 3.5 ) 07/13/2019 2:25 PM CDT Body Mass Index 31.39 07/13/2019 2:25 PM CDT Plan of Treatment Health Maintenance Due Date Last Done Comments DTAP/TDAP/TD VACCINES (1 - Tdap) 1982 CERVICAL CANCER SCREENING 1993 COLORECTAL SCREENING 2008 Colorectal Cancer Screening 2008 FIT-DNA Q 3 years 2008 FIT/FOBT Q 1 year 2008 Flex Sig/CT Colonography Q 5 years 2008 ZOSTER VACCINE (1 of 2) 2013 BREAST CANCER SCREENING 04/30/2020 04/30/20 19, 02/16/2018, 01/07/2017 INFLUENZA VACCINE (#1) 2024 RSV VACCINE (60+ or ) (1 - 1-dose 75+ series) 2038 Procedures Procedure Name Priority Date/Time Associated Diagnosis Comments MAMMO 3D DOROTA SCREEN BILAT W OR WO CAD Routine 04/30/2019 from Last 3 Months or Most Recently Relevant to Health Maintenance Results * MAMMO SCRN BILAT 3D DOROTA W OR WO CAD (04/30/2019) Anatomical Region Laterality Modality Breast Bilateral Other Gilda Marques MD MAMMO ORDERABLES Edited Re sult - Final from Last 3 Months or Most Recently Relevant to Health Maintenance Insurance MEDICARE PART A AND B
--- OUTSIDE RECORDS SUMMARY | 2024-11-30 18:16 | XMS_ITS | Encounter Summary ---
Author Organization [facility] Address [address] [place] [address] Phone Care Team Providers Care Receivables Specialist Name Role Phone Gilda Marques MD Primary Care Provider + [phone] Juni Hays MD Primary Care Provider [phone] Shivam Benedict MD Unavailable Radha Crews APRN, [facility] Unavailable + [phone] Sacha Penn MD Unavailable [phone] Encounter Details Date Type Department Care Team (Late st Contact Info) Description 02/24/2020 [facility] [address] [place] [id number] Prosper Tolbert MD [address] [place] [address], [address] [place] [address] Social History Tobacco Use Types Packs/Day Years [...] on filedocumented in this encounter Care Teams Receivables Specialist Relationship Specialty Start Date End Date Gilda Marques MD [address] [place] [address] PCP - General Family Medicine 07/13/18 10/16/20 Juni Hays MD [address] [place] [address] PCP - General Internal Medicine 10/17/20 Shivam Benedict MD [address] [place] [address] Consulting Physician Pulmonary Disease 12/27/21 Radha Crews APRN, LAB SPECIALIST [address] [place] [address] Nurse Practitioner Advanced Practice Nurse 01/04/22 Sacha Penn MD [address] [place] [address] Consulting Physician Neurology 07/25/23 documented as of this encounter
[2024-11-30 18:30] VITALS: O2SAT 100
--- NOTE | 2024-11-30 18:30 | ADMGEN ---
This patient, Blossom De León, was admitted to 2nd Floor Room 203-1 as a skilled swing bed. Patient/family oriented to hospital policies and general routines including ID bracelet, bed and alarms, visiting hours, pain management, procedures, bathroom and other care routines, personal items, smoking policy, room service/diet, and visiting hours. Information on how to activate the Rapid Response Team has been discussed. Patient/Family are encouraged to report perceived risks to care and to ask questions if they do not understand what they are told or what they should do.
[2024-11-30 18:35] VITALS: BP 127/73; PULSE 99; RESP 18; TEMP 36.1; O2SAT 100
[2024-11-30 18:51] VITALS: BMI 23.9
[2024-11-30 21:24] VITALS: PULSE 58; RESP 20; O2SAT 100
[2024-11-30] MEDS: rOPINIRole HCL 0.25 MG TABLET PO (22:21)
[2024-11-30 22:27] VITALS: PULSE 58
[2024-11-30] MEDS: oxyCODONE HCL (*CRX) 5 MG TAB IR 10 MG PO (22:28)
--- NOTE | 2024-11-30 22:30 | PC.NURSE ---
Patient asked home CPAP be connected to 02@3L bleed and 02@3L per n.c. turned off. Assisted patient to put CPAP in place and turn machine on. . Belem Dennis RN informed of use of CPAP with 3L O2 bleed.
[2024-11-30 22:47] LABS: Glucose Point of Care 261 mg/dl (65-105)
[2024-12-01] VITALS (8 sets, daily range): BP systolic 101–145; BP diastolic 69–78; PULSE 60–76; RESP 14–20; TEMP 35.9–36.6; O2SAT 95–99
--- NOTE | 2024-12-01 02:25 | PC.NURSE ---
Patient calling for nurse for pain medications, ice and food every 20-30 minutes. States she eats at night and then takes snack insulin to cover the rise in her blood sugar. Discussed diet, fluids and medications. Explained she is on carb consistent diet to prevent spikes in blood sugar. She states my daughter is going to bring in sugar free snacks tomorrow, nurse discussed difference between sugar free and low carb. Patient continues with the multiple complaints and then asked for flexaril and tylenol between pain medication. Stated it was ordered that way so she could have the other medications to decrease her pain. Patient also requesting BSC frequently and not voiding but passing smears of BM and small formed brown stools, wiping self with multiple wipes, states hemorrhoids are now bleeding and wants something done. Nurse noted few faint specks of blood on wipes. Discussed patient behavoirs with Debbie BUI, Charge Nurse. Informed patient that her flexaril is ordered TID and needs to be discussed with physician. Patient has no signs of pain and moves about freely with minimal assistance for safety (only) to transfer to [facility]. Has a Flacc Score of 0. Patient states her pain is 7 and never goes down below a 5. Patient agrees to take Tylenol and was given sugar free chocolate pudding and then go to bed.
[2024-12-01] MEDS: ACETAMINOPHEN 325 MG TABLET 650 MG PO ×2 (02:28→22:07)
[2024-12-01] MEDS: oxyCODONE HCL (*CRX) 5 MG TAB IR 10 MG PO ×4 (04:33→20:51)
[2024-12-01 05:44] LABS: INR 1.8; Prothrombin Time 18.6 Seconds (9.50-12.1)
[2024-12-01] MEDS: LEVOTHYROXINE SODIUM 100 MCG TABLET PO (06:10)
[2024-12-01] MEDS: LEVOTHYROXINE SODIUM 25 MCG TABLET PO (06:10)
--- NOTE | 2024-12-01 07:07 | PC.NURSE ---
Assisted off BSC, passed small formed soft brown stool with small amount of urine. Given water and basin, patient provided oral care to same, and nurse assisted patient back to bed for safety.
--- NOTE | 2024-12-01 07:45 | P.HP_ITS ---
H&P: HPI History of Present Illness Date/Time: 12/01/24 07:45 Chief Complaint: physical deconditioning weakness Narrative: This is a 59 year old female with a significant past medical history of Atrial fibrillation, type 2 diabetes mellitus, depression, anxiety, chronic back pain, arthritis, hypertension, hyperlipidemia, fibromyalgia, migraine, thyroid cancer, hypothyroidism, coronary artery disease, sleep apnea, restless legs syndrome, irritable bowel syndrome, osteoporosis, GERD, congestive heart failure, former smoker who presents to [facility] swing bed program for rehab. Patient recently had barostim placement surgery on 11/18/2024 at [facility] for her chronic combined systolic and diastolic heart failure. She also received PT and OT while there who recommended additional rehab. she was accepted to the swing bed program here at [facility] and will continue with PT and OT. She denies any fever, chills, nausea, vomiting, diarrhea, abdominal pain, chest pain. she is currently on 3 L nasal cannula which is her baseline. She does report shortness a breath with activity. She does have 3 to 4+ pitting edema to bilateral lower extremities. Review of Systems Review of Systems: All systems reviewed & are unremarkable except as noted in HPI and below PMFSH Past Medical History Medical History Chronic hypoxemic respiratory failure Atrial fibrillation Diabetes type 2, uncontrolled Pneumonia Major depressive disorder, recurrent, moderate Muscle spasm Anxiety Depression Chronic back pain DDD (degenerative disc disease) Arthritis Peripheral neuropathy UTI (urinary tract infection) Ovarian cyst HTN (hypertension) Hyperlipidemia Fibromyalgia Migraine Thyroid ca Diabetes mellitus Bronchitis Type 2 diabetes mellitus without complications Cervical spondylosis with myelopathy and radiculopathy Chronic pain disorder Adult hypothyroidism Sleep apnea in adult Cervical vertebral fusion C5-6 Arthritis CAD (coronary artery disease) Migraine BI (obstructive sleep apnea) RLS (restless legs syndrome) IBS (irritable bowel syndrome) Depression Anxiety Osteoporosis Liver cancer no treatment, follows at [facility] Chronic pain Chronic respiratory failure on 3 l nc ICD (implantable cardioverter-defibrillator) battery depletion Atrial fib/flutter, transient Cardiomyopathy CHF (congestive heart failure) Diabetes GERD (gastroesophageal reflux disease) Hypothyroidism Hyperlipidemia Hypertension Surgical History Surgical History History of spinal fusion History of hysterectomy S/P cervical spinal fusion H/O thyroidectomy History of liver biopsy H/O partial thyroidectomy H/O kyphoplasty 05/2023, 07/2023, 11/2023 H/O: hysterectomy History of hip surgery History of cholecystectomy History of carpal tunnel release H/O breast biopsy Previous back surgery Family History Family History Grandparent Diabetes mellitus, Onset Age: 200 Family history of lupus erythematosus, Onset Age: 200 Mother Family history of malignant neoplasm of breast in first degree relative Hypertension Cerebrovascular accident Father Family history of coronary artery disease, Onset Age: 40 Hypertension Chronic obstructive pulmonary disease Other Family history of malignant neoplasm of male breast Social History Social History Social History: Smoking packs per day: 1 Smoking cigarettes per day: 20.0 Years smoked: 5 Smoking pack-years: 5.00 Smoking status: Former smoker Tobacco type: cigarettes Second hand tobacco smoke exposure: No Smoking end date: 10/13/86 Alcohol intake: never Substance use: never Substance use type: does not use Do You Feel Safe in your Home?: Yes Lack of Transportation: No Lack of Food: Never True Current Housing: I Have Housing Concerned About Future Housing: No Difficulty Paying Gas/Electric Bills: No Difficulty Paying for Meds: No Currently Unemployed: No Education: High School Diploma/GED Difficulty w/ Childcare or Family Care: No Living arrangements: with family Occupation/Education: retired Additional occupation/education comments: Disability Gender identity (if verbalized by the patient): Female Sexual Orientation (if Verbalized by the Patient): Straight or Heterosexual Spiritual care concerns: No Meds Home Medications and Allergies Home Medications ?Medication ?Instructions ?Recorded ?Confirmed ?Type Dexcom G7 Sensor 12/04/23 11/30/24 History aspirin 81 mg tablet,delayed 81 mg PO DAILY 12/04/23 11/30/24 History release atorvastatin 20 mg tablet 20 mg PO DAILY 12/04/23 11/30/24 History bisacodyl 10 mg rectal suppository 10 mg RECTAL DAILY PRN Constipation 12/04/23 11/30/24 History cyclobenzaprine 5 mg tablet 10 mg PO TID PRN Muscle Spasms 12/04/23 11/30/24 History duloxetine 60 mg capsule,delayed 60 mg PO DAILY 12/04/23 11/30/24 History release ergocalciferol (vitamin D2) 25,000 50,000 unit PO WEEKLY 12/04/23 11/30/24 History unit capsule insulin lispro 100 unit/mL 15 unit subcut TIDWMEAL 12/04/23 11/30/24 History subcutaneous solution levothyroxine 125 mcg tablet 125 mcg PO DAILY 12/04/23 11/30/24 History naloxone 4 mg/actuation nasal spray 1 spray intranasal Q3M PRN Opioid 12/04/23 11/30/24 History Reversal potassium chloride 20 mEq 20 meq PO DAILY 12/04/23 11/30/24 History tablet,extended release pregabalin 75 mg capsule 75 mg PO BID 12/04/23 11/30/24 History ropinirole 0.25 mg tablet 0.25 mg PO HS 12/04/23 11/30/24 History sacubitril 24 mg-valsartan 26 mg 0.5 tablet PO BID 12/04/23 11/30/24 History tablet (Entresto) ondansetron 4 mg disintegrating 4 mg PO Q6H PRN Nausea And 12/15/23 11/30/24 Rx tablet Vomiting #0 tabs oxymetazoline 0.05 % nasal spray 1 spray intranasal Q12HR PRN nose 07/19/24 11/30/24 Rx (Nasal Decongestant bleed #15 mL (oxymetazoline)) Anusol-HC 25 mg RECTAL DAILY PRN Hemorrhoids 08/30/24 11/30/24 History acetaminophen 325 mg tablet 650 mg PO Q6H PRN Fever Or Pain 08/30/24 11/30/24 History alendronate 70 mg tablet 70 mg PO WEEKLY 08/30/24 11/30/24 History artifi.tears(hypromellose)(PF) 0.3 2 drp EACH EYE TID PRN Dry Eye(S) 08/30/24 11/30/24 History % eye drops bisacodyl 5 mg tablet,delayed 10 mg PO DAILY PRN Constipation 08/30/24 11/30/24 History release buprenorphine 10 mcg/hour weekly 1 patch transdermal Q7D 08/30/24 11/30/24 History transdermal patch calcium carbonate 1,000 mg PO TID PRN dyspepsia 08/30/24 11/30/24 History empagliflozin 10 mg tablet 10 mg PO DAILY 08/30/24 11/30/24 History furosemide 40 mg tablet 40 mg PO BID 08/30/24 11/30/24 History hydrocortisone 2.5 % topical cream 1 applic RECTAL QID PRN Hemorrhoids 08/30/24 11/30/24 History with perineal applicator metoprolol tartrate 25 mg tablet 12.5 mg PO BID 08/30/24 11/30/24 History midodrine 10 mg tablet 10 mg PO TID 08/30/24 11/30/24 History oxycodone 5 mg tablet 10 mg PO Q4H PRN Pain 08/30/24 11/30/24 History pantoprazole 40 mg tablet,delayed 40 mg PO BID 08/30/24 11/30/24 History release sodium chloride 0.65 % nasal spray 2 spray intranasal Q2H PRN Dry 08/30/24 11/30/24 History aerosol (Saline Nasal) Nasal Passages metformin 500 mg tablet 500 mg PO BID #30 tabs 09/10/24 11/30/24 Rx warfarin 1 mg tablet 1.5 mg (1.5 x 1 mg) PO WEEKLY #15 09/10/24 11/30/24 Rx tabs insulin glargine-yfgn 100 unit/mL 35 unit (0.35 mL) subcut QAM #10 mL 09/13/24 11/30/24 Rx subcutaneous solution (Semglee (insulin glargine-yfgn)) phenylephrine HCl 1 % nasal spray 1 spray intranasal Q6H PRN nasal 10/20/24 11/30/24 Rx (Parish-Synephrine (phenylephrine)) congestion 3 days #15 mL amiodarone 200 mg tablet 200 mg PO DAILY 11/30/24 11/30/24 History insulin glargine 100 unit/mL 27 unit subcut QAM 11/30/24 11/30/24 History subcutaneous solution (Lantus U-100 Insulin) warfarin 2 mg tablet 3 mg PO DAILY 11/30/24 11/30/24 History Allergies Allergy/AdvReac Type Severity Reaction Status Date / Time acetaminophen Allergy Vomiting Verified 11/07/24 21:52 baclofen Allergy Nausea Verified 11/07/24 21:52 nitrofurantoin Allergy Nausea and Verified 11/07/24 21:52 Vomiting prochlorperazine Allergy Unknown Verified 11/07/24 21:52 propoxyphene Allergy Vomiting Verified 11/07/24 21:52 Sulfa (Sulfonamide Allergy Other Verified 11/07/24 21:52 Antibiotics) sulfanilamide Allergy Unknown Verified 11/07/24 21:52 sumatriptan Allergy Diarrhea Verified 11/07/24 21:52 tizanidine Allergy Hallucinati Verified 11/07/24 21:52 ng tramadol Allergy Unknown Verified 11/07/24 21:52 trazodone Allergy Other Verified 11/07/24 21:52 amitriptyline AdvReac Nightmare Verified 11/07/24 21:52 Vital Signs Vital Signs - 24 hr 11/30/24 18:30 11/30/24 18:35 11/30/24 21:24 Temperature 97 F L Pulse Rate 99 58 L Respiratory Rate 18 20 Blood Pressure 127/73 Pulse Oximetry 100 100 100 Oxygen Delivery Nasal Cannula Nasal Cannula Oxygen Flow Rate 3 3 3 11/30/24 22:27 12/01/24 00:00 Temperature 97.7 F Pulse Rate 58 L 60 Respiratory Rate 20 Blood Pressure 137/77 Pulse Oximetry 98 Oxygen Delivery Nasal Cannula Oxygen Flow Rate 3 Exam Narrative: General: In no acute distress, well nourished Head: atraumatic, no encephalopathy Eyes: PERRLA, sclera clear ENT: moist mucous membranes, nasal passages clear Neck: supple, no JVD, no adenopathy, trachea midline Cardiac: Normal S1 and S2. No murmur, gallops or friction rubs, peripheral pulses intact. Respiratory: Lungs clear to auscultation, no adventitious lung sounds , currently on 3 L nasal cannula, shortness a breath with activity Gastrointestinal: soft, non-distended, non-tender, normoactive bowel sounds. : voiding without difficulty. Extremities: moves all extremities well, 3 to 4+ pitting edema to bilateral lower extremities Skin: clean, dry, intact. No wounds or lesions. Neuro: Alert and oriented x4, cranial nerves intact, no neuro deficits. Psych: normal mood, normal affect, interactive H&P: Results Labs Labs: [facility] 12/01/24 05:06 Potassium 4.0 Assessment and Plan Assessment and plan (1) Weakness: Code(s): R53.1 - Weakness Status: Acute Assessment and Plan: * PT and OT ordered (2) CHF (congestive heart failure): Code(s): I50.9 - Heart failure, unspecified Status: Acute Assessment and Plan: * continue Entresto, Lasix, metoprolol * echocardiogram from 09/28/2022 showed mild left ventricular enlargement, moderate global hypokinesis present with severe hypokinesis to akinesis of the proximal and mid inferior septal and inferior lateral segments, LV systolic function severely reduced with EF of 30-35%, diastolic dysfunction present. * Jane stim implant (3) Atrial fibrillation: Code(s): I48.91 - Unspecified atrial fibrillation Status: Chronic Assessment and Plan: * continue amiodarone and metoprolol * INR 1.8 today * will start patient on 2 mg Coumadin for tonight (4) Hyperlipidemia: Code(s): E78.5 - Hyperlipidemia, unspecified Status: Acute Assessment and Plan: * continue aspirin and atorvastatin (5) Type 2 diabetes mellitus: Code(s): E11.9 - Type 2 diabetes mellitus without complications Status: Acute Assessment and Plan: * Blood sugars ranging 162-261 * Hgb A1C was 6.8 on 07/14/2024 * will recheck hemoglobin A1c today * Accu checks AC/HS * low-dose SSI ordered * continue metformin * continue Lantus 27 units at night * continue insulin 15 units with meals * hypoglycemic protocol in place * Diabetic diet ordered (6) Hypothyroidism: Code(s): E03.9 - Hypothyroidism, unspecified Status: Acute Assessment and Plan: * continue Synthroid (7) GERD (gastroesophageal reflux disease): Code(s): K21.9 - Gastro-esophageal reflux disease without esophagitis Status: Acute Assessment and Plan: * continue Protonix b.i.d. * Tums ordered as well Quality VTE Prophylaxis VTE prophylaxis: pharmacologic ordered Hospitalist [facility] Advance Care Plan I have confirmed that the patient's Advanced Care Plan is present, code status is documented, or surrogate decision maker is listed in patient medical record.: Yes Medication Reconciliation I have utilized all available resources to obtain, update and review the patients current medications (includes all prescriptions, OTC, herbals, cannabis, and nutritional supplements).: Yes
[2024-12-01 07:56] LABS: Glucose Point of Care 160 mg/dl (65-105)
[2024-12-01 08:15] LABS: Basophils Absolute Auto 0.03 K/mm3 (0.00-0.10); Basophils Percent Auto 0.3 % (0.0-1.0); Eosinophils Absolute Auto 0.09 K/mm3 (0.02-0.50); Eosinophils Percent Auto 0.9 % (1.0-6.0); Hematocrit 33.1 % (35.0-49.0); Hemoglobin 8.8 g/dL (12.0-15.0); Immature Granulocyte Absolute 0.15 K/mm3 (0.00-0.00); Immature Granulocyte Percent A 1.6 % (0.0-0.0); Lymphocytes Absolute Auto 1.91 K/mm3 (1.10-4.50); Lymphocytes Percent Auto 20.1 % (18.0-42.0); Mean Corpuscular HGB Conc 26.6 g/dL (32-36); Mean Corpuscular Hemoglobin 22.6 pg (27.0-31.0); Mean Corpuscular Volume 84.9 fL (78.0-102.0); Mean Platelet Volume 9.4 fl (9.2-11.8); Monocytes Absolute Auto 0.69 K/mm3 (0.10-0.90); Monocytes Percent Auto 7.3 % (2.0-11.0); Neutrophils Absolute Auto 6.64 K/mm3 (1.70-7.20); Neutrophils Percent Auto 69.8 % (50.0-70.0); Nucleated Red Blood Cells Absolute Auto 0.03 K/mm3 (0.00-0.00); Nucleated Red Blood Cells Perc 0.3 % (0-0.0); Platelet Count Result 336 K/mm3 (150-420); White Blood Count 9.5 K/mm3 (4.8-10.8)
[2024-12-01 08:28] LABS: INR 1.7; Prothrombin Time 17.4 Seconds (9.50-12.1)
[2024-12-01 08:34] LABS: Alanine Aminotransferase 83 U/L (14-59); Albumin Level 3.8 g/dL (3.4-5.0); Alkaline Phosphatase 101 U/L (46-116); Anion Gap 4 mmol/L (4-12); Aspartate Amino Transferase 34 U/L (15-37); Bilirubin,Total 0.5 mg/dL (0.00-1.00); Blood Urea Nitrogen 21 mg/dL (7-18); Calcium 8.5 mg/dL (8.5-10.1); Carbon Dioxide 37 mmol/L (21-32); Chloride 103 mmol/L (98-108); Estimated CRCL calculation 77 ml/min; Estimated Glomerular Filt Rate > 60; Glucose 157 mg/dL (70-99); Osmolality Calculated 304 mOsm/kg (285-295); Potassium 4.1 mmol/L (3.5-5.1); Sodium 144 mmol/L (136-145); Total Protein 6.2 g/dL (6.4-8.2)
[2024-12-01 08:36] LABS: Hemoglobin A1C 6.7 % (<5.7)
[2024-12-01] MEDS: FUROSEMIDE 40 MG TABLET PO ×2 (10:22→16:26)
[2024-12-01] MEDS: CALCIUM CARBONATE (TUMS) 500 MG (200 MG ELEMENTAL) 400 MG PO ×3 (10:23→16:25)
[2024-12-01] MEDS: SACUBITRIL/VALSARTAN 24-26 MG TABLET 0.5 TAB PO ×2 (10:24→20:50)
[2024-12-01] MEDS: metFORMIN HCL 500 MG TABLET PO ×2 (10:25→16:25)
[2024-12-01] MEDS: POTASSIUM CHLORIDE 20 MEQ ER TABLET PO (10:25)
[2024-12-01] MEDS: PREGABALIN (*CRX) 50 MG CAPSULE PO ×2 (10:25→16:25)
[2024-12-01] MEDS: CYCLOBENZAPRINE HCL 10 MG TABLET PO ×3 (10:26→20:51)
[2024-12-01] MEDS: PREGABALIN (*CRX) 25 MG CAPSULE PO ×2 (10:26→16:25)
[2024-12-01] MEDS: METOPROLOL TARTRATE 12.5 MG TABLET PO ×2 (10:26→20:51)
[2024-12-01] MEDS: DULoxetine HCL 30 MG CAPSULE.DR 60 MG PO (10:26)
[2024-12-01] MEDS: AMIODARONE HCL 200 MG TABLET PO (10:27)
[2024-12-01] MEDS: ATORVASTATIN 10 MG TABLET 20 MG PO (10:27)
[2024-12-01] MEDS: PANTOPRAZOLE 40 MG TABLET PO ×2 (10:28→16:25)
[2024-12-01] MEDS: MIDODRINE HCL 2.5 MG TABLET 10 MG PO ×3 (10:28→16:26)
[2024-12-01] MEDS: INSULIN GLARGINE (*BKC) 1,000 UNITS/10 ML VIAL 27 UNITS SUB-Q (10:43)
[2024-12-01] MEDS: INSULIN HUMAN LISPRO (*BKC) 1,000 UNITS/10 ML VIAL 15 UNITS SUB-Q ×2 (10:45→12:15)
[2024-12-01 11:48] LABS: Glucose Point of Care 294 mg/dl (65-105)
[2024-12-01] MEDS: INSULIN HUMAN LISPRO (*BKC) 1,000 UNITS/10 ML VIAL SUB-Q (12:34)
[2024-12-01 16:29] LABS: Glucose Point of Care 50 mg/dl (65-105)
[2024-12-01 16:36] LABS: Glucose Point of Care 59 mg/dl (65-105)
[2024-12-01 18:24] LABS: Glucose Point of Care 205 mg/dl (65-105)
[2024-12-01 20:51] LABS: Glucose Point of Care 176 mg/dl (65-105)
[2024-12-01] MEDS: rOPINIRole HCL 0.25 MG TABLET PO (20:51)
--- NOTE | 2024-12-01 23:06 | PC.NURSE ---
Pt has been up to toilet several times in past few hrs and has persistent loose stools. She is requesting some Immodium for stools and fire extinguisher charger notified.
[2024-12-02] VITALS (7 sets, daily range): BP systolic 110–127; BP diastolic 77–82; PULSE 65–92; RESP 16–20; TEMP 36.2–36.6; O2SAT 95–100
[2024-12-02] MEDS: oxyCODONE HCL (*CRX) 5 MG TAB IR 10 MG PO ×5 (03:50→21:07)
[2024-12-02 05:53] LABS: Toxigenic C. Diff POSITIVE (NEGATIVE)
[2024-12-02 06:08] LABS: INR 1.1; Prothrombin Time 12.4 Seconds (9.50-12.1)
--- NOTE | 2024-12-02 06:33 | PC.NURSE ---
Pt informed of + c-diff and need for contact precautions.
[2024-12-02 08:08] LABS: Glucose Point of Care 174 mg/dl (65-105)
[2024-12-02] MEDS: CYCLOBENZAPRINE HCL 10 MG TABLET PO ×2 (08:44→21:08)
[2024-12-02] MEDS: CALCIUM CARBONATE (TUMS) 500 MG (200 MG ELEMENTAL) 400 MG PO ×3 (08:44→16:59)
[2024-12-02] MEDS: POTASSIUM CHLORIDE 20 MEQ ER TABLET PO (08:45)
[2024-12-02] MEDS: metFORMIN HCL 500 MG TABLET PO ×2 (08:45→17:07)
[2024-12-02] MEDS: METOPROLOL TARTRATE 12.5 MG TABLET PO ×2 (08:45→21:07)
[2024-12-02] MEDS: PANTOPRAZOLE 40 MG TABLET PO ×2 (08:46→17:07)
[2024-12-02] MEDS: PREGABALIN (*CRX) 50 MG CAPSULE PO ×2 (08:47→17:06)
[2024-12-02] MEDS: SACUBITRIL/VALSARTAN 24-26 MG TABLET 0.5 TAB PO ×2 (08:47→21:08)
[2024-12-02] MEDS: ATORVASTATIN 10 MG TABLET 20 MG PO (08:47)
[2024-12-02] MEDS: PREGABALIN (*CRX) 25 MG CAPSULE PO ×2 (08:47→17:05)
[2024-12-02] MEDS: AMIODARONE HCL 200 MG TABLET PO (08:48)
[2024-12-02] MEDS: MIDODRINE HCL 2.5 MG TABLET 10 MG PO ×3 (08:49→17:06)
[2024-12-02] MEDS: DULoxetine HCL 30 MG CAPSULE.DR 60 MG PO (08:49)
[2024-12-02] MEDS: FUROSEMIDE 40 MG TABLET PO ×2 (08:50→16:59)
[2024-12-02] MEDS: ASPIRIN 81 MG ENTERIC TABLET PO (08:50)
[2024-12-02] MEDS: INSULIN GLARGINE (*BKC) 1,000 UNITS/10 ML VIAL 27 UNITS SUB-Q (08:50)
[2024-12-02] MEDS: INSULIN HUMAN LISPRO (*BKC) 1,000 UNITS/10 ML VIAL 15 UNITS SUB-Q ×2 (08:51→16:57)
--- NOTE | 2024-12-02 09:35 | P.PNIM_ITS ---
Progress Note: A&P Assessment and Plan (1) Weakness: Code(s): R53.1 - Weakness Status: Acute Assessment and Plan: * PT and OT ordered 12/02 * continue PT and OT (2) CHF (congestive heart failure): Code(s): I50.9 - Heart failure, unspecified Status: Acute Assessment and Plan: * continue Entresto, Lasix, metoprolol * echocardiogram from 09/28/2022 showed mild left ventricular enlargement, moderate global hypokinesis present with severe hypokinesis to akinesis of the proximal and mid inferior septal and inferior lateral segments, LV systolic function severely reduced with EF of 30-35%, diastolic dysfunction present. * Jane stim implant 12/02 * No change to current treatment plan (3) Atrial fibrillation: Code(s): I48.91 - Unspecified atrial fibrillation Status: Chronic Assessment and Plan: * continue amiodarone and metoprolol * INR 1.8 today * will start patient on 2 mg Coumadin for tonight 12/02 * INR is 1.1 today * Will increase to 3 mg today (4) Hyperlipidemia: Code(s): E78.5 - Hyperlipidemia, unspecified Status: Acute Assessment and Plan: * continue aspirin and atorvastatin 12/02 * No change to current treatment plan (5) Type 2 diabetes mellitus: Code(s): E11.9 - Type 2 diabetes mellitus without complications Status: Acute Assessment and Plan: * Blood sugars ranging 162-261 * Hgb A1C was 6.8 on 07/14/2024 * will recheck hemoglobin A1c today * Accu checks AC/HS * low-dose SSI ordered * continue metformin * continue Lantus 27 units at night * continue insulin 15 units with meals * hypoglycemic protocol in place * Diabetic diet ordered 12/02 * No change to current treatment plan (6) Hypothyroidism: Code(s): E03.9 - Hypothyroidism, unspecified Status: Acute Assessment and Plan: * continue Synthroid 12/02 * No change to current treatment plan (7) GERD (gastroesophageal reflux disease): Code(s): K21.9 - Gastro-esophageal reflux disease without esophagitis Status: Acute Assessment and Plan: * continue Protonix b.i.d. * Tums ordered as well 12/02 * No change to current treatment plan (8) C. difficile diarrhea: Code(s): A04.72 - Enterocolitis due to Clostridium difficile, not specified as recurrent Status: Acute Assessment and Plan: 12/02 * Reported loose stools overnight, has been on antibiotics recently * We will start oral vancomycin and continue for 10 days * initiate isolation * monitor electrolytes. Time Spent With Patient Time with patient: 25 - 35 minutes Subjective Date/time seen: 12/02/24 09:35 Interval history: Interval history: This is a 59 year old female with a significant past medical history of Atrial fibrillation, type 2 diabetes mellitus, depression, anxiety, chronic back pain, arthritis, hypertension, hyperlipidemia, fibromyalgia, migraine, thyroid cancer, hypothyroidism, coronary artery disease, sleep apnea, restless legs syndrome, irritable bowel syndrome, osteoporosis, GERD, congestive heart failure, former smoker who presents to [facility] bed program for rehab. Patient recently had barostim placement surgery on 11/18/2024 at [facility] for her chronic combined systolic and diastolic heart failure. She also received PT and OT while there who recommended additional rehab. she was accepted to the swing bed program here at [facility] and will continue with PT and OT. She denies any fever, chills, nausea, vomiting, diarrhea, abdominal pain, chest pain. she is currently on 3 L nasal cannula which is her baseline. She does report shortness a breath with activity. She does have 3 to 4+ pitting edema to bilateral lower extremities. Subjective: Patient reports increased diarrhea yesterday. She was found to be C diff positive. INR 1.1 today. Labs reviewed. Review of Systems Review of Systems: All systems reviewed & are unremarkable except as noted in HPI and below Exam Narrative: General: In no acute distress, well nourished Cardiac: Normal S1 and S2. No murmur, gallops or friction rubs, peripheral pulses intact. Respiratory: Lungs clear to auscultation, no adventitious lung sounds, currently on 3 L nasal cannula which is her baseline, shortness a breath with activity Gastrointestinal: soft, non-distended, non-tender, normoactive bowel sounds. Frequent loose stools : voiding without difficulty. Extremities: moves all extremities well, 3 to 4+ pitting edema to bilateral lower extremities Neuro: Alert and oriented x4 Objective Data Vital Signs Vital Signs: Vital Signs - 24 hr 12/01/24 10:26 12/01/24 10:27 12/01/24 16:00 Temperature 96.6 F L Pulse Rate 60 60 76 Respiratory Rate 17 Blood Pressure 101/69 Pulse Oximetry 99 Oxygen Delivery Nasal Cannula Oxygen Flow Rate 3 12/01/24 20:00 12/01/24 20:51 12/02/24 00:00 Temperature 97.9 F Pulse Rate 75 76 67 Respiratory Rate 20 20 Blood Pressure 110/77 Pulse Oximetry 95 95 Oxygen Delivery Nasal Cannula CPAP Oxygen Flow Rate 3 12/02/24 08:00 12/02/24 08:45 12/02/24 08:48 Temperature 97.2 F L Pulse Rate 92 92 92 Respiratory Rate 16 Blood Pressure 119/82 Pulse Oximetry 100 Oxygen Delivery Room Air Oxygen Flow Rate Intake/Output Intake/Output: Intake & Output 11/29/24 11/30/24 12/01/24 12/02/24 23:59 23:59 23:59 23:59 Intake Total 2240 1120 Balance 2240 1120 Meds/Results Medications: Active Medications Generic Name Dose Route Start Last Admin Trade Name Freq PRN Reason Stop Dose Admin Acetaminophen 650 mg 11/30/24 21:19 12/01/24 22:07 Acetaminophen 325 Mg Tablet PO 650 mg Q6H PRN Administration Fever Or Pain Amiodarone HCl 200 mg 12/01/24 08:00 12/02/24 08:48 Amiodarone Hcl 200 Mg Tablet PO 200 mg DAILY@0800 [facility] Administration Artificial Tears 2 drop 11/30/24 21:19 Artificial Tears Ophth Soln 15 Ml Bottle EACH EYE TID PRN Dry Eye(S) Aspirin 81 mg 12/01/24 09:00 12/02/24 08:50 Aspirin 81 Mg Enteric Tablet PO 81 mg DAILY [facility]INA Administration Atorvastatin Calcium 20 mg 12/01/24 09:00 12/02/24 08:47 Atorvastatin 10 Mg Tablet PO 20 mg DAILY ALVINA Administration Bisacodyl 10 mg 11/30/24 21:19 Bisacodyl 5 Mg Tablet Ec PO DAILY PRN Constipation Bisacodyl 10 mg 11/30/24 21:19 Bisacodyl 10 Mg Suppository RECTAL DAILY PRN Constipation Calcium Carbonate 400 mg 12/01/24 09:00 12/02/24 08:44 Calcium Carbonate (Tums) 500 Mg (200 Mg Elemental) PO 400 mg TID ALVINA Administration Cyclobenzaprine HCl 10 mg 11/30/24 21:19 12/02/24 08:44 Cyclobenzaprine Hcl 10 Mg Tablet PO 10 mg TID PRN Administration Muscle Spasms Dextrose 12.5 gm 11/30/24 21:24 Dextrose 50% 25 Gm/50 Ml Syringe IV PUSH PRN PRN Hypoglycemia Protocol Duloxetine HCl 60 mg 12/01/24 09:00 12/02/24 08:49 Duloxetine Hcl 30 Mg Capsule.Dr PO 60 mg QAM ALVINA Administration Ergocalciferol 50,000 units 12/03/24 09:00 Ergocalciferol 50,000 Units Capsule PO Fr@0900 [facility] Furosemide 40 mg 12/01/24 09:00 12/02/24 08:50 Furosemide 40 Mg Tablet PO 40 mg BID ALVINA Administration Glucagon 1 mg 11/30/24 21:24 Glucagon For Inj 1 Mg Vial IM PRN PRN Hypoglycemia Protocol Glucose 15 gm 11/30/24 21:24 Glucose Oral Gel 15 Gm Of Glucse In 37.5 Gm Tube PO PRN PRN Hypoglycemia Protocol Dextrose 1,000 mls @ 100 mls/hr 11/30/24 21:24 Dextrose 5% 1,000 Ml IVPB PRN PRN Hypoglycemia Protocol Insulin Glargine 27 units 12/01/24 09:00 12/02/24 08:50 Insulin Glargine (*Bkc) 1,000 Units/10 Ml Vial SUB-Q 27 units QAM [facility] Administration Insulin Human Lispro 2 - 5 units 12/01/24 08:00 12/02/24 08:51 Insulin Human Lispro (*Bkc) 1,000 Units/10 Ml Vial SUB-Q Not Given TIDWM [facility] Protocol Insulin Human Lispro 15 units 12/01/24 08:00 12/02/24 08:51 Insulin Human Lispro (*Bkc) 1,000 Units/10 Ml Vial SUB-Q 15 units TIDWM [facility] Administration Levothyroxine Sodium 100 mcg 12/01/24 06:30 12/01/24 06:10 Levothyroxine Sodium 100 Mcg Tablet PO 100 mcg DAILY@0630 [facility] Administration Levothyroxine Sodium 25 mcg 12/01/24 06:30 12/01/24 06:10 Levothyroxine Sodium 25 Mcg Tablet PO 25 mcg DAILY@0630 [facility] Administration Metformin HCl 500 mg 12/01/24 08:00 12/02/24 08:45 Metformin Hcl 500 Mg Tablet PO 500 mg BIDWM [facility] Administration Metoprolol Tartrate 12.5 mg 11/30/24 22:05 12/02/24 08:45 Metoprolol Tartrate 12.5 Mg Tablet PO 12.5 mg Q12HR [facility] Administration Midodrine 10 mg 12/01/24 09:00 12/02/24 08:49 Midodrine Hcl 2.5 Mg Tablet PO 10 mg TID [facility] Administration Non-Formulary Medication 1 patch 12/02/24 09:00 Buprenorphine TOPICAL 01/01/25 08:59 Q7D [facility] Non-Formulary Medication 1 applic 11/30/24 21:19 Hydrocortisone RECTAL QID PRN Hemorrhoids Ondansetron HCl 4 mg 11/30/24 21:19 Ondansetron Hcl Odt 4 Mg Tablet PO Q6H PRN Nausea And Vomiting Oxycodone HCl 10 mg 11/30/24 21:19 12/02/24 08:44 Oxycodone Hcl (*Crx) 5 Mg Tab Ir PO 10 mg Q4H PRN Administration Pain Rated 7-10 Oxymetazoline HCl 1 spray 11/30/24 21:19 Oxymetazoline Hcl 0.05% Alexy 15 Ml Btl (*Bkc) NASAL Q12HR PRN nose bleed Pantoprazole Sodium 40 mg 12/01/24 09:00 12/02/24 08:46 Pantoprazole 40 Mg Tablet PO 40 mg BID [facility] Administration Potassium Chloride 20 meq 12/01/24 08:00 12/02/24 08:45 Potassium Chloride 20 Meq Er Tablet PO 20 meq DAILY@0800 [facility] Administration Pregabalin 50 mg 12/01/24 09:00 12/02/24 08:47 Pregabalin (*Crx) 50 Mg Capsule PO 50 mg BID [facility] Administration Pregabalin 25 mg 12/01/24 09:00 12/02/24 08:47 Pregabalin (*Crx) 25 Mg Capsule PO 25 mg BID [facility] Administration Ropinirole HCl 0.25 mg 11/30/24 22:10 12/01/24 20:51 Ropinirole Hcl 0.25 Mg Tablet PO 0.25 mg HS [facility] Administration Sacubitril/Valsartan 0.5 tab 12/01/24 09:00 12/02/24 08:47 Sacubitril/Valsartan 24-26 Mg Tablet PO 0.5 tab Q12HR [facility] Administration Sodium Chloride 2 spray 11/30/24 21:19 Saline 0.65% Alexy Soln 44 Ml Btl NASAL Q2H PRN Dry Nasal Passages Warfarin Sodium 1.5 mg 12/05/24 17:00 Warfarin (*Pbkc) 0.5 Mg Tablet PO Metzger@1700 [facility] Warfarin Sodium 2 mg 12/01/24 17:00 Warfarin (*Pbkc) 2 Mg Tablet PO [id number]@1700 [facility] Labs Labs: Laboratory Results - last 24 hr 12/01/24 12/01/24 12/01/24 11:42 16:28 16:31 PT INR POC Capillary Glucose 294 H 50 L* 59 L* C. difficile (PCR) 12/01/24 12/01/24 12/02/24 18:19 20:50 04:48 PT INR POC Capillary Glucose 205 H 176 H C. difficile (PCR) Positive A* 12/02/24 12/02/24 05:18 08:03 PT 12.4 H D INR 1.1 POC Capillary Glucose 174 H C. difficile (PCR) Quality VTE Prophylaxis VTE prophylaxis: pharmacologic ordered
[2024-12-02 10:02] LABS: Anion Gap 6 mmol/L (4-12); Blood Urea Nitrogen 21 mg/dL (7-18); Calcium 8.9 mg/dL (8.5-10.1); Carbon Dioxide 36 mmol/L (21-32); Chloride 100 mmol/L (98-108); Estimated CRCL calculation 53 ml/min; Estimated Glomerular Filt Rate > 60; Glucose 259 mg/dL (70-99); Osmolality Calculated 306 mOsm/kg (285-295); Potassium 4.2 mmol/L (3.5-5.1); Sodium 142 mmol/L (136-145)
[2024-12-02] MEDS: VANCOMYCIN HCL 125 MG ORAL CAPSULE PO ×4 (10:29→23:13)
[2024-12-02 10:36] LABS: Magnesium 1.9 mg/dL (1.8-2.4)
[2024-12-02] MEDS: [UNRECOGNIZED DRUG - OTHER] TOPICAL (10:44)
[2024-12-02] MEDS: BUPRENORPHINE TOPICAL (10:44)
[2024-12-02 11:53] LABS: Glucose Point of Care 186 mg/dl (65-105)
[2024-12-02] MEDS: FLUCONAZOLE 150 MG TABLET PO (13:24)
[2024-12-02] MEDS: RIZATRIPTAN 10 MG PO (13:54)
[2024-12-02] MEDS: [UNRECOGNIZED DRUG - OTHER] PO (13:54)
[2024-12-02 16:25] LABS: Glucose Point of Care 186 mg/dl (65-105)
[2024-12-02] MEDS: WARFARIN (*PBKC) 1 MG TABLET 3 MG PO (17:09)
[2024-12-02] MEDS: rOPINIRole HCL 0.25 MG TABLET PO (21:07)
[2024-12-02 21:08] LABS: Glucose Point of Care 199 mg/dl (65-105)
[2024-12-03] VITALS (7 sets, daily range): BP systolic 93–120; BP diastolic 60–70; PULSE 65–99; RESP 18; TEMP 36.1–37.6; O2SAT 97–100
[2024-12-03] MEDS: ONDANSETRON HCL ODT 4 MG TABLET PO (00:23)
[2024-12-03] MEDS: ACETAMINOPHEN 325 MG TABLET 650 MG PO ×2 (00:23→20:57)
[2024-12-03] MEDS: VANCOMYCIN HCL 125 MG ORAL CAPSULE PO ×3 (05:35→18:36)
[2024-12-03] MEDS: LEVOTHYROXINE SODIUM 25 MCG TABLET PO (05:35)
[2024-12-03] MEDS: oxyCODONE HCL (*CRX) 5 MG TAB IR 10 MG PO ×4 (05:35→18:25)
[2024-12-03] MEDS: LEVOTHYROXINE SODIUM 100 MCG TABLET PO (05:36)
[2024-12-03 05:44] LABS: Anion Gap 7 mmol/L (4-12); Blood Urea Nitrogen 22 mg/dL (7-18); Carbon Dioxide 36 mmol/L (21-32); Chloride 99 mmol/L (98-108); Estimated CRCL calculation 47 ml/min; Estimated Glomerular Filt Rate > 60; Glucose 303 mg/dL (70-99); Magnesium 1.8 mg/dL (1.8-2.4); Osmolality Calculated 308 mOsm/kg (285-295); Potassium 4.9 mmol/L (3.5-5.1); Sodium 142 mmol/L (136-145)
[2024-12-03 05:47] LABS: Prothrombin Time 11.3 Seconds (9.50-12.1)
[2024-12-03 08:21] LABS: Glucose Point of Care 236 mg/dl (65-105)
--- NOTE | 2024-12-03 09:07 | P.PNIM_ITS ---
Progress Note: A&P Assessment and Plan (1) Weakness: Code(s): R53.1 - Weakness Status: Acute Assessment and Plan: * PT and OT ordered 12/02 * no change to current treatment plan (2) CHF (congestive heart failure): Code(s): I50.9 - Heart failure, unspecified Status: Acute Assessment and Plan: * continue Entresto, Lasix, metoprolol * echocardiogram from 09/28/2022 showed mild left ventricular enlargement, moderate global hypokinesis present with severe hypokinesis to akinesis of the proximal and mid inferior septal and inferior lateral segments, LV systolic function severely reduced with EF of 30-35%, diastolic dysfunction present. * Jane stim implant 12/02 * No change to current treatment plan (3) Atrial fibrillation: Code(s): I48.91 - Unspecified atrial fibrillation Status: Chronic Assessment and Plan: * continue amiodarone and metoprolol * INR 1.8 today * will start patient on 2 mg Coumadin for tonight 12/02 * INR is 1.1 today * Will increase to 3 mg today 12/03 * INR 1.0 * Will increase to 5 mg tonight (4) Hyperlipidemia: Code(s): E78.5 - Hyperlipidemia, unspecified Status: Acute Assessment and Plan: * continue aspirin and atorvastatin 12/02 * No change to current treatment plan (5) Type 2 diabetes mellitus: Code(s): E11.9 - Type 2 diabetes mellitus without complications Status: Acute Assessment and Plan: * Blood sugars ranging 162-261 * Hgb A1C was 6.8 on 07/14/2024 * will recheck hemoglobin A1c today * Accu checks AC/HS * low-dose SSI ordered * continue metformin * continue Lantus 27 units at night * continue insulin 15 units with meals * hypoglycemic protocol in place * Diabetic diet ordered 12/02 * No change to current treatment plan 12/03 * Patient blood sugar this morning was 492 after eating biscuits and gravy and a cinnamon roll that was brought in by family member. Discussed maintaining a diabetic diet and watching carbs with the patient, she states understanding. * We will give another 10 units x1 now * hemoglobin A1c 6.7 (6) Hypothyroidism: Code(s): E03.9 - Hypothyroidism, unspecified Status: Acute Assessment and Plan: * continue Synthroid 12/02 * No change to current treatment plan (7) GERD (gastroesophageal reflux disease): Code(s): K21.9 - Gastro-esophageal reflux disease without esophagitis Status: Acute Assessment and Plan: * continue Protonix b.i.d. * Tums ordered as well 12/02 * No change to current treatment plan (8) C. difficile diarrhea: Code(s): A04.72 - Enterocolitis due to Clostridium difficile, not specified as recurrent Status: Acute Assessment and Plan: 12/02 * Reported loose stools overnight, has been on antibiotics recently * We will start oral vancomycin and continue for 10 days * initiate isolation * monitor electrolytes. 12/03 * having more formed stools today * electrolytes are within normal limits * continue oral vancomycin Time Spent With Patient Time with patient: 15 - 25 minutes Subjective Date/time seen: 12/03/24 09:07 Interval history: Interval history: This is a 59 year old female with a significant past medical history of Atrial fibrillation, type 2 diabetes mellitus, depression, anxiety, chronic back pain, arthritis, hypertension, hyperlipidemia, fibromyalgia, migraine, thyroid cancer, hypothyroidism, coronary artery disease, sleep apnea, restless legs syndrome, irritable bowel syndrome, osteoporosis, GERD, congestive heart failure, former smoker who presents to [place] swing bed program for rehab. Patient recently had barostim placement surgery on 11/18/2024 at [facility] for her chronic combined systolic and diastolic heart failure. She also received PT and OT while there who recommended additional rehab. she was accepted to the swing bed program here at [place] and will continue with PT and OT. She denies any fever, chills, nausea, vomiting, diarrhea, abdominal pain, chest pain. she is currently on 3 L nasal cannula which is her baseline. She does report shortness a breath with activity. She does have 3 to 4+ pitting edema to bilateral lower extremities. Subjective: Patient denies any new complaints today. Nursing reports that her blood sugar was 492 after eating biscuits and gravy and cinnamon rolls that were brought in by family member. discussed with her to maintain a low carb diet , she states understanding. Labs reviewed. Review of Systems Review of Systems: All systems reviewed & are unremarkable except as noted in HPI and below Exam Narrative: General: In no acute distress, well nourished Cardiac: Normal S1 and S2. No murmur, gallops or friction rubs, peripheral pulses intact. Respiratory: Lungs clear to auscultation, no adventitious lung sounds, currently on 3 L nasal cannula which is her baseline, shortness a breath with activity Gastrointestinal: soft, non-distended, non-tender, normoactive bowel sounds. Frequent loose stools : voiding without difficulty. Extremities: moves all extremities well, 3 to 4+ pitting edema to bilateral lower extremities Neuro: Alert and oriented x4 Objective Data Vital Signs Vital Signs: Vital Signs - 24 hr 12/02/24 16:00 12/02/24 21:07 12/03/24 00:00 Temperature 97.7 F 98.1 F Pulse Rate 80 65 65 Respiratory Rate 16 18 Blood Pressure 127/78 120/70 Pulse Oximetry 100 99 Oxygen Delivery Nasal Cannula Room Air Oxygen Flow Rate 2 Intake/Output Intake/Output: Intake & Output 11/30/24 12/01/24 12/02/24 12/03/24 23:59 23:59 23:59 23:59 Intake Total 2240 2490 450 Balance 2240 2490 450 Meds/Results Medications: Active Medications Generic Name Dose Route Start Last Admin Trade Name Freq PRN Reason Stop Dose Admin Acetaminophen 650 mg 11/30/24 21:19 12/03/24 00:23 Acetaminophen 325 Mg Tablet PO 650 mg Q6H PRN Administration Fever Or Pain Amiodarone HCl 200 mg 12/01/24 08:00 12/02/24 08:48 Amiodarone Hcl 200 Mg Tablet PO 200 mg DAILY@0800 ALVINA Administration Artificial Tears 2 drop 11/30/24 21:19 Artificial Tears Ophth Soln 15 Ml Bottle EACH EYE TID PRN Dry Eye(S) Aspirin 81 mg 12/01/24 09:00 12/02/24 08:50 Aspirin 81 Mg Enteric Tablet PO 81 mg DAILY ALVINA Administration Atorvastatin Calcium 20 mg 12/01/24 09:00 12/02/24 08:47 Atorvastatin 10 Mg Tablet PO 20 mg DAILY ALVINA Administration Bisacodyl 10 mg 11/30/24 21:19 Bisacodyl 5 Mg Tablet Ec PO DAILY PRN Constipation Bisacodyl 10 mg 11/30/24 21:19 Bisacodyl 10 Mg Suppository RECTAL DAILY PRN Constipation Calcium Carbonate 400 mg 12/01/24 09:00 12/02/24 16:59 Calcium Carbonate (Tums) 500 Mg (200 Mg Elemental) PO 400 mg TID ALVINA Administration Cyclobenzaprine HCl 10 mg 11/30/24 21:19 12/02/24 21:08 Cyclobenzaprine Hcl 10 Mg Tablet PO 10 mg TID PRN Administration Muscle Spasms Dextrose 12.5 gm 11/30/24 21:24 Dextrose 50% 25 Gm/50 Ml Syringe IV PUSH PRN PRN Hypoglycemia Protocol Duloxetine HCl 60 mg 12/01/24 09:00 12/02/24 08:49 Duloxetine Hcl 30 Mg Capsule. PO 60 mg QAM ALVINA Administration Ergocalciferol 50,000 units 12/03/24 09:00 Ergocalciferol 50,000 Units Capsule PO Fr@0900 [facility] Furosemide 40 mg 12/01/24 09:00 12/02/24 16:59 Furosemide 40 Mg Tablet PO 40 mg BID ALVINA Administration Glucagon 1 mg 11/30/24 21:24 Glucagon For Inj 1 Mg Vial IM PRN PRN Hypoglycemia Protocol Glucose 15 gm 11/30/24 21:24 Glucose Oral Gel 15 Gm Of Glucse In 37.5 Gm Tube PO PRN PRN Hypoglycemia Protocol Hydrocortisone/Pramoxine 1 applic 12/02/24 13:00 Hydrocortisone/Pramoxine 2.5% 30 Gm Cream RECTAL QID PRN Hemorrhoids Dextrose 1,000 mls @ 100 mls/hr 11/30/24 21:24 Dextrose 5% 1,000 Ml IVPB PRN PRN Hypoglycemia Protocol Insulin Glargine 27 units 12/01/24 09:00 12/02/24 08:50 Insulin Glargine (*Bkc) 1,000 Units/10 Ml Vial SUB-Q 27 units QAM ALVINA Administration Insulin Human Lispro 2 - 5 units 12/01/24 08:00 12/02/24 16:59 Insulin Human Lispro (*Bkc) 1,000 Units/10 Ml Vial SUB-Q Not Given TIDWM [facility] Protocol Insulin Human Lispro 15 units 12/01/24 08:00 12/02/24 16:57 Insulin Human Lispro (*Bkc) 1,000 Units/10 Ml Vial SUB-Q 15 units TIDWM ALVINA Administration Levothyroxine Sodium 100 mcg 12/01/24 06:30 12/03/24 05:36 Levothyroxine Sodium 100 Mcg Tablet PO 100 mcg DAILY@0630 ALVINA Administration Levothyroxine Sodium 25 mcg 12/01/24 06:30 12/03/24 05:35 Levothyroxine Sodium 25 Mcg Tablet PO 25 mcg DAILY@0630 ALVINA Administration Metformin HCl 500 mg 12/01/24 08:00 12/02/24 17:07 Metformin Hcl 500 Mg Tablet PO 500 mg BIDWM ALVINA Administration Metoprolol Tartrate 12.5 mg 11/30/24 22:05 12/02/24 21:07 Metoprolol Tartrate 12.5 Mg Tablet PO 12.5 mg Q12HR ALVINA Administration Midodrine 10 mg 12/01/24 09:00 12/02/24 17:06 Midodrine Hcl 2.5 Mg Tablet PO 10 mg TID ALVINA Administration Non-Formulary Medication 1 patch 12/02/24 09:00 12/02/24 10:44 Buprenorphine TOPICAL 01/01/25 08:59 1 patch Q7D ALVINA Administration Nonformulary Drug ( 1 each 12/02/24 12:00 12/02/24 13:54 Rizatriptan 10mg PO 1 each Tablet) Q2HR PRN Administration Migraine Headache Ondansetron HCl 4 mg 11/30/24 21:19 12/03/24 00:23 Ondansetron Hcl Odt 4 Mg Tablet PO 4 mg Q6H PRN Administration Nausea And Vomiting Oxycodone HCl 10 mg 11/30/24 21:19 12/03/24 05:35 Oxycodone Hcl (*Crx) 5 Mg Tab Ir PO 10 mg Q4H PRN Administration Pain Rated 7-10 Oxymetazoline HCl 1 spray 11/30/24 21:19 Oxymetazoline Hcl 0.05% Alexy 15 Ml Btl (*Bkc) NASAL Q12HR PRN nose bleed Pantoprazole Sodium 40 mg 12/01/24 09:00 12/02/24 17:07 Pantoprazole 40 Mg Tablet PO 40 mg BID ALVINA Administration Potassium Chloride 20 meq 12/01/24 08:00 12/02/24 08:45 Potassium Chloride 20 Meq Er Tablet PO 20 meq DAILY@0800 ALVINA Administration Pregabalin 50 mg 12/01/24 09:00 12/02/24 17:06 Pregabalin (*Crx) 50 Mg Capsule PO 50 mg BID ALVINA Administration Pregabalin 25 mg 12/01/24 09:00 12/02/24 17:05 Pregabalin (*Crx) 25 Mg Capsule PO 25 mg BID ALVINA Administration Ropinirole HCl 0.25 mg 11/30/24 22:10 12/02/24 21:07 Ropinirole Hcl 0.25 Mg Tablet PO 0.25 mg HS ALVINA Administration Sacubitril/Valsartan 0.5 tab 12/01/24 09:00 12/02/24 21:08 Sacubitril/Valsartan 24-26 Mg Tablet PO 0.5 tab Q12HR ALVINA Administration Sodium Chloride 2 spray 11/30/24 21:19 Saline 0.65% Alexy Soln 44 Ml Btl NASAL Q2H PRN Dry Nasal Passages Vancomycin HCl 125 mg 12/02/24 09:50 12/03/24 05:35 Vancomycin Hcl 125 Mg Oral Capsule PO 12/12/24 00:01 125 mg Q6HR ALVINA Administration Warfarin Sodium 1.5 mg 12/05/24 17:00 Warfarin (*Pbkc) 0.5 Mg Tablet PO Metzger@1700 [facility] Warfarin Sodium 5 mg 12/03/24 17:00 Warfarin (*Pbkc) 5 Mg Tablet PO [email or web address]@[email or web address] [facility] Labs Labs: Laboratory Results - last 24 hr 12/02/24 12/02/24 12/02/24 05:18 11:48 16:20 PT INR Sodium 142 Potassium 4.2 Chloride 100 Carbon Dioxide 36 H Anion Gap 6 BUN 21 H Creatinine 0.81 Estim Creat Clear Calc 53 Estimated GFR > 60 Glucose 259 H POC Capillary Glucose 186 H 186 H Calculated Osmolality 306 H Calcium 8.9 Magnesium 1.9 12/02/24 12/03/24 12/03/24 21:07 05:28 08:15 PT 11.3 INR 1.0 Sodium 142 Potassium 4.9 Chloride 99 Carbon Dioxide 36 H Anion Gap 7 BUN 22 H Creatinine 0.91 Estim Creat Clear Calc 47 Estimated GFR > 60 Glucose 303 H POC Capillary Glucose 199 H 236 H Calculated Osmolality 308 H Calcium 9.0 Magnesium 1.8 Quality VTE Prophylaxis VTE prophylaxis: pharmacologic ordered
[2024-12-03] MEDS: SACUBITRIL/VALSARTAN 24-26 MG TABLET 0.5 TAB PO ×2 (09:33→20:57)
[2024-12-03] MEDS: CALCIUM CARBONATE (TUMS) 500 MG (200 MG ELEMENTAL) 400 MG PO ×2 (09:33→17:08)
[2024-12-03] MEDS: MIDODRINE HCL 2.5 MG TABLET 10 MG PO ×2 (09:34→19:23)
[2024-12-03] MEDS: PANTOPRAZOLE 40 MG TABLET PO ×2 (09:34→17:10)
[2024-12-03] MEDS: metFORMIN HCL 500 MG TABLET PO ×2 (09:37→17:16)
[2024-12-03] MEDS: DULoxetine HCL 30 MG CAPSULE.DR 60 MG PO (09:37)
[2024-12-03] MEDS: PREGABALIN (*CRX) 50 MG CAPSULE PO ×2 (09:38→17:10)
[2024-12-03] MEDS: PREGABALIN (*CRX) 25 MG CAPSULE PO ×2 (09:39→17:08)
[2024-12-03] MEDS: ATORVASTATIN 10 MG TABLET 20 MG PO (09:39)
[2024-12-03] MEDS: ERGOCALCIFEROL 50,000 UNITS CAPSULE 50000 UNITS PO (09:39)
[2024-12-03] MEDS: METOPROLOL TARTRATE 12.5 MG TABLET PO ×2 (09:40→20:56)
[2024-12-03] MEDS: POTASSIUM CHLORIDE 20 MEQ ER TABLET PO (09:41)
[2024-12-03] MEDS: AMIODARONE HCL 200 MG TABLET PO (09:41)
[2024-12-03] MEDS: FUROSEMIDE 40 MG TABLET PO ×2 (09:42→17:09)
[2024-12-03] MEDS: INSULIN HUMAN LISPRO (*BKC) 1,000 UNITS/10 ML VIAL SUB-Q ×2 (09:46→12:27)
[2024-12-03] MEDS: INSULIN GLARGINE (*BKC) 1,000 UNITS/10 ML VIAL 27 UNITS SUB-Q (09:50)
[2024-12-03] MEDS: ASPIRIN 81 MG ENTERIC TABLET PO (09:55)
[2024-12-03 11:49] LABS: Glucose Point of Care > 450 mg/dl (65-105)
[2024-12-03] MEDS: INSULIN HUMAN LISPRO (*BKC) 1,000 UNITS/10 ML VIAL 15 UNITS SUB-Q (12:26)
--- NOTE | 2024-12-03 12:54 | PC.NURSE ---
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
[2024-12-03 15:42] LABS: Glucose Point of Care 165 mg/dl (65-105)
[2024-12-03 17:10] LABS: Glucose Point of Care 126 mg/dl (65-105)
[2024-12-03] MEDS: CYCLOBENZAPRINE HCL 10 MG TABLET PO (17:10)
[2024-12-03] MEDS: WARFARIN (*PBKC) 5 MG TABLET PO (18:26)
[2024-12-03] MEDS: rOPINIRole HCL 0.25 MG TABLET PO (20:56)
[2024-12-03 20:57] LABS: Glucose Point of Care 320 mg/dl (65-105)
[2024-12-04] VITALS: BP 105/69; PULSE 99; RESP 17; TEMP 36.8; O2SAT 100
[2024-12-04] MEDS: oxyCODONE HCL (*CRX) 5 MG TAB IR 10 MG PO ×3 (00:24→12:58)
[2024-12-04] MEDS: VANCOMYCIN HCL 125 MG ORAL CAPSULE PO ×3 (00:24→12:58)
[2024-12-04] MEDS: CYCLOBENZAPRINE HCL 10 MG TABLET PO (00:24)
[2024-12-04 05:30] VITALS: O2SAT 98
[2024-12-04 05:42] LABS: Anion Gap 8 mmol/L (4-12); Blood Urea Nitrogen 27 mg/dL (7-18); Calcium 8.8 mg/dL (8.5-10.1); Carbon Dioxide 36 mmol/L (21-32); Chloride 99 mmol/L (98-108); Estimated CRCL calculation 49 ml/min; Estimated Glomerular Filt Rate > 60; Glucose 315 mg/dL (70-99); Magnesium 1.9 mg/dL (1.8-2.4); Osmolality Calculated 313 mOsm/kg (285-295); Potassium 5.2 mmol/L (3.5-5.1); Sodium 143 mmol/L (136-145)
[2024-12-04 05:43] LABS: INR 1.2; Prothrombin Time 13.3 Seconds (9.50-12.1)
[2024-12-04] MEDS: LEVOTHYROXINE SODIUM 100 MCG TABLET PO (06:08)
[2024-12-04] MEDS: LEVOTHYROXINE SODIUM 25 MCG TABLET PO (06:09)
[2024-12-04 08:00] VITALS: BP 102/66; PULSE 103; RESP 14; RESP 16; TEMP 36.6; O2SAT 98
[2024-12-04 08:04] LABS: Glucose Point of Care 303 mg/dl (65-105)
--- NOTE | 2024-12-04 08:21 | P.PNIM_ITS ---
Progress Note: A&P Assessment and Plan (1) Weakness: Code(s): R53.1 - Weakness Status: Acute Assessment and Plan: * PT and OT ordered 12/02 * no change to current treatment plan (2) CHF (congestive heart failure): Code(s): I50.9 - Heart failure, unspecified Status: Acute Assessment and Plan: * continue Entresto, Lasix, metoprolol * echocardiogram from 09/28/2022 showed mild left ventricular enlargement, moderate global hypokinesis present with severe hypokinesis to akinesis of the proximal and mid inferior septal and inferior lateral segments, LV systolic function severely reduced with EF of 30-35%, diastolic dysfunction present. * Jane stim implant 12/02 * No change to current treatment plan (3) Atrial fibrillation: Code(s): I48.91 - Unspecified atrial fibrillation Status: Chronic Assessment and Plan: * continue amiodarone and metoprolol * INR 1.8 today * will start patient on 2 mg Coumadin for tonight 12/02 * INR is 1.1 today * Will increase to 3 mg today 12/03 * INR 1.0 * Will increase to 5 mg tonight (4) Hyperlipidemia: Code(s): E78.5 - Hyperlipidemia, unspecified Status: Acute Assessment and Plan: * continue aspirin and atorvastatin 12/02 * No change to current treatment plan (5) Type 2 diabetes mellitus: Code(s): E11.9 - Type 2 diabetes mellitus without complications Status: Acute Assessment and Plan: * Blood sugars ranging 162-261 * Hgb A1C was 6.8 on 07/14/2024 * will recheck hemoglobin A1c today * Accu checks AC/HS * low-dose SSI ordered * continue metformin * continue Lantus 27 units at night * continue insulin 15 units with meals * hypoglycemic protocol in place * Diabetic diet ordered 12/02 * No change to current treatment plan 12/03 * Patient blood sugar this morning was 492 after eating biscuits and gravy and a cinnamon roll that was brought in by family member. Discussed maintaining a diabetic diet and watching carbs with the patient, she states understanding. * We will give another 10 units x1 now * hemoglobin A1c 6.7 (6) Hypothyroidism: Code(s): E03.9 - Hypothyroidism, unspecified Status: Acute Assessment and Plan: * continue Synthroid 12/02 * No change to current treatment plan (7) GERD (gastroesophageal reflux disease): Code(s): K21.9 - Gastro-esophageal reflux disease without esophagitis Status: Acute Assessment and Plan: * continue Protonix b.i.d. * Tums ordered as well 12/02 * No change to current treatment plan (8) C. difficile diarrhea: Code(s): A04.72 - Enterocolitis due to Clostridium difficile, not specified as recurrent Status: Acute Assessment and Plan: 12/02 * Reported loose stools overnight, has been on antibiotics recently * We will start oral vancomycin and continue for 10 days * initiate isolation * monitor electrolytes. 12/03 * having more formed stools today * electrolytes are within normal limits * continue oral vancomycin Subjective Date/time seen: 12/04/24 08:21 Interval history: Interval history: This is a 59 year old female with a significant past medical history of Atrial fibrillation, type 2 diabetes mellitus, depression, anxiety, chronic back pain, arthritis, hypertension, hyperlipidemia, fibromyalgia, migraine, thyroid cancer, hypothyroidism, coronary artery disease, sleep apnea, restless legs syndrome, irritable bowel syndrome, osteoporosis, GERD, congestive heart failure, former smoker who presents to [place] [facility] bed program for rehab. Patient recently had barostim placement surgery on 11/18/2024 at [facility] for her chronic combined systolic and diastolic heart failure. She also received PT and OT while there who recommended additional rehab. she was accepted to the swing bed program here at [place] and will continue with PT and OT. She denies any fever, chills, nausea, vomiting, diarrhea, abdominal pain, chest pain. she is currently on 3 L nasal cannula which is her baseline. She does report shortness a breath with activity. She does have 3 to 4+ pitting edema to bilateral lower extremities. Subjective: Review of Systems Review of Systems: All systems reviewed & are unremarkable except as noted in HPI and below Exam Narrative: General: In no acute distress, well nourished Cardiac: Normal S1 and S2. No murmur, gallops or friction rubs, peripheral pulses intact. Respiratory: Lungs clear to auscultation, no adventitious lung sounds, currently on 3 L nasal cannula which is her baseline, shortness a breath with activity Gastrointestinal: soft, non-distended, non-tender, normoactive bowel sounds. Frequent loose stools : voiding without difficulty. Extremities: moves all extremities well, 3 to 4+ pitting edema to bilateral lower extremities Neuro: Alert and oriented x4 Objective Data Vital Signs Vital Signs: Vital Signs - 24 hr 12/03/24 09:40 12/03/24 09:41 12/03/24 16:00 Temperature 99.7 F H Pulse Rate 68 68 74 Respiratory Rate 18 Blood Pressure 93/60 L Pulse Oximetry 100 Oxygen Delivery Nasal Cannula Oxygen Flow Rate 3 12/03/24 20:56 12/04/24 00:00 Temperature 98.3 F Pulse Rate 99 99 Respiratory Rate 17 Blood Pressure 105/69 Pulse Oximetry 100 Oxygen Delivery Nasal Cannula Oxygen Flow Rate 3 Intake/Output Intake/Output: Intake & Output 12/01/24 12/02/24 12/03/24 12/04/24 23:59 23:59 23:59 23:59 Intake Total 2240 2490 1410 700 Balance 2240 2490 1410 700 Meds/Results Medications: Active Medications Generic Name Dose Route Start Last Admin Trade Name Freq PRN Reason Stop Dose Admin Acetaminophen 650 mg 11/30/24 21:19 12/03/24 20:57 Acetaminophen 325 Mg Tablet PO 650 mg Q6H PRN Administration Fever Or Pain Amiodarone HCl 200 mg 12/01/24 08:00 12/03/24 09:41 Amiodarone Hcl 200 Mg Tablet PO 200 mg DAILY@0800 ALVINA Administration Artificial Tears 2 drop 11/30/24 21:19 Artificial Tears Ophth Soln 15 Ml Bottle EACH EYE TID PRN Dry Eye(S) Aspirin 81 mg 12/01/24 09:00 12/03/24 09:55 Aspirin 81 Mg Enteric Tablet PO 81 mg DAILY ALVINA Administration Atorvastatin Calcium 20 mg 12/01/24 09:00 12/03/24 09:39 Atorvastatin 10 Mg Tablet PO 20 mg DAILY ALVINA Administration Bisacodyl 10 mg 11/30/24 21:19 Bisacodyl 5 Mg Tablet Ec PO DAILY PRN Constipation Bisacodyl 10 mg 11/30/24 21:19 Bisacodyl 10 Mg Suppository RECTAL DAILY PRN Constipation Calcium Carbonate 400 mg 12/01/24 09:00 12/03/24 17:08 Calcium Carbonate (Tums) 500 Mg (200 Mg Elemental) PO 400 mg TID ALVINA Administration Cyclobenzaprine HCl 10 mg 11/30/24 21:19 12/04/24 00:24 Cyclobenzaprine Hcl 10 Mg Tablet PO 10 mg TID PRN Administration Muscle Spasms Dextrose 12.5 gm 11/30/24 21:24 Dextrose 50% 25 Gm/50 Ml Syringe IV PUSH PRN PRN Hypoglycemia Protocol Duloxetine HCl 60 mg 12/01/24 09:00 12/03/24 09:37 Duloxetine Hcl 30 Mg Capsule.Dr PO 60 mg QAM ALVINA Administration Ergocalciferol 50,000 units 12/03/24 09:00 12/03/24 09:39 Ergocalciferol 50,000 Units Capsule PO 50,000 units Fr@0900 ALVINA Administration Furosemide 40 mg 12/01/24 09:00 12/03/24 17:09 Furosemide 40 Mg Tablet PO 40 mg BID ALVINA Administration Glucagon 1 mg 11/30/24 21:24 Glucagon For Inj 1 Mg Vial IM PRN PRN Hypoglycemia Protocol Glucose 15 gm 11/30/24 21:24 Glucose Oral Gel 15 Gm Of Glucse In 37.5 Gm Tube PO PRN PRN Hypoglycemia Protocol Hydrocortisone/Pramoxine 1 applic 12/02/24 13:00 Hydrocortisone/Pramoxine 2.5% 30 Gm Cream RECTAL QID PRN Hemorrhoids Dextrose 1,000 mls @ 100 mls/hr 11/30/24 21:24 Dextrose 5% 1,000 Ml IVPB PRN PRN Hypoglycemia Protocol Insulin Glargine 27 units 12/01/24 09:00 12/03/24 09:50 Insulin Glargine (*Bkc) 1,000 Units/10 Ml Vial SUB-Q 27 units QAM ALVINA Administration Insulin Human Lispro 2 - 5 units 12/01/24 08:00 12/03/24 17:15 Insulin Human Lispro (*Bkc) 1,000 Units/10 Ml Vial SUB-Q Not Given TIDWM [facility] Protocol Insulin Human Lispro 15 units 12/01/24 08:00 12/03/24 12:26 Insulin Human Lispro (*Bkc) 1,000 Units/10 Ml Vial SUB-Q 15 units TIDWM ALVINA Administration Levothyroxine Sodium 100 mcg 12/01/24 06:30 12/04/24 06:08 Levothyroxine Sodium 100 Mcg Tablet PO 100 mcg DAILY@0630 ALVINA Administration Levothyroxine Sodium 25 mcg 12/01/24 06:30 12/04/24 06:09 Levothyroxine Sodium 25 Mcg Tablet PO 25 mcg DAILY@0630 ALVINA Administration Metformin HCl 500 mg 12/01/24 08:00 12/03/24 17:16 Metformin Hcl 500 Mg Tablet PO 500 mg BIDWM ALVINA Administration Metoprolol Tartrate 12.5 mg 11/30/24 22:05 12/03/24 20:56 Metoprolol Tartrate 12.5 Mg Tablet PO 12.5 mg Q12HR ALVINA Administration Midodrine 10 mg 12/01/24 09:00 12/03/24 19:23 Midodrine Hcl 2.5 Mg Tablet PO 10 mg TID ALVINA Administration Non-Formulary Medication 1 patch 12/02/24 09:00 12/02/24 10:44 Buprenorphine TOPICAL 01/01/25 08:59 1 patch Q7D ALVINA Administration Nonformulary Drug ( 1 each 12/02/24 12:00 12/02/24 13:54 Rizatriptan 10mg PO 1 each Tablet) Q2HR PRN Administration Migraine Headache Ondansetron HCl 4 mg 11/30/24 21:19 12/03/24 00:23 Ondansetron Hcl Odt 4 Mg Tablet PO 4 mg Q6H PRN Administration Nausea And Vomiting Oxycodone HCl 10 mg 11/30/24 21:19 12/04/24 06:09 Oxycodone Hcl (*Crx) 5 Mg Tab Ir PO 10 mg Q4H PRN Administration Pain Rated 7-10 Oxymetazoline HCl 1 spray 11/30/24 21:19 Oxymetazoline Hcl 0.05% Alexy 15 Ml Btl (*Bkc) NASAL Q12HR PRN nose bleed Pantoprazole Sodium 40 mg 12/01/24 09:00 12/03/24 17:10 Pantoprazole 40 Mg Tablet PO 40 mg BID ALVINA Administration Potassium Chloride 20 meq 12/01/24 08:00 12/03/24 09:41 Potassium Chloride 20 Meq Er Tablet PO 20 meq DAILY@0800 ALVINA Administration Pregabalin 50 mg 12/01/24 09:00 12/03/24 17:10 Pregabalin (*Crx) 50 Mg Capsule PO 50 mg BID ALVINA Administration Pregabalin 25 mg 12/01/24 09:00 12/03/24 17:08 Pregabalin (*Crx) 25 Mg Capsule PO 25 mg BID ALVINA Administration Ropinirole HCl 0.25 mg 11/30/24 22:10 12/03/24 20:56 Ropinirole Hcl 0.25 Mg Tablet PO 0.25 mg HS ALVINA Administration Sacubitril/Valsartan 0.5 tab 12/01/24 09:00 12/03/24 20:57 Sacubitril/Valsartan 24-26 Mg Tablet PO 0.5 tab Q12HR ALVINA Administration Sodium Chloride 2 spray 11/30/24 21:19 Saline 0.65% Alexy Soln 44 Ml Btl NASAL Q2H PRN Dry Nasal Passages Vancomycin HCl 125 mg 12/02/24 09:50 12/04/24 06:09 Vancomycin Hcl 125 Mg Oral Capsule PO 12/12/24 00:01 125 mg Q6HR ALVINA Administration Warfarin Sodium 1.5 mg 12/05/24 17:00 Warfarin (*Pbkc) 0.5 Mg Tablet PO Metzger@1700 ALVINA Warfarin Sodium 5 mg 12/03/24 17:00 12/03/24 18:26 Warfarin (*Pbkc) 5 Mg Tablet PO 5 mg [email or web address] [facility] Administration Labs Labs: Laboratory Results - last 24 hr 12/03/24 12/03/24 12/03/24 08:15 11:42 15:37 PT INR Sodium Potassium Chloride Carbon Dioxide Anion Gap BUN Creatinine Estim Creat Clear Calc Estimated GFR Glucose POC Capillary Glucose 236 H > 450 H 165 H Calculated Osmolality Calcium Magnesium 12/03/24 12/03/24 12/04/24 17:08 20:55 05:24 PT 13.3 H INR 1.2 Sodium 143 Potassium 5.2 H Chloride 99 Carbon Dioxide 36 H Anion Gap 8 BUN 27 H Creatinine 0.87 Estim Creat Clear Calc 49 Estimated GFR > 60 Glucose 315 H POC Capillary Glucose 126 H 320 H Calculated Osmolality 313 H Calcium 8.8 Magnesium 1.9 12/04/24 07:45 PT INR Sodium Potassium Chloride Carbon Dioxide Anion Gap BUN Creatinine Estim Creat Clear Calc Estimated GFR Glucose POC Capillary Glucose 303 H Calculated Osmolality Calcium Magnesium Quality VTE Prophylaxis VTE prophylaxis: pharmacologic ordered
--- NOTE | 2024-12-04 08:23 | ECG_ITS ---
Test Date: 2024-12-04 09:36:23 Measurements Intervals [place] Rate: 97 P: 88 CA: 354 QRS: -17 QRSD: 92 T: 79 QT: 394 QTc: 502 Interpretive Statements SINUS RHYTHM LEFT VENTRICULAR HYPERTROPHY WITH ST-T CHANGE NONSPECIFIC T-WAVE ABNORMALITY BASELINE ARTIFACT- I, II, III, AVR, AVL, AVF, V1-V6 BORDERLINE ECG Compared to ECG 11/07/2024 22:18:41 NO SIGNIFICANT CHANGE Electronically Signed On 12-04-2024 10:39:33 [employer] AND [employer]UM[employer] INST[employer]ER by Rafat Cruz D.O.
[2024-12-04 09:20] LABS: Basophils Absolute Auto 0.05 K/mm3 (0.00-0.10); Basophils Percent Auto 0.5 % (0.0-1.0); Eosinophils Absolute Auto 0.06 K/mm3 (0.02-0.50); Eosinophils Percent Auto 0.6 % (1.0-6.0); Hemoglobin 8.9 g/dL (12.0-15.0); Immature Granulocyte Absolute 0.24 K/mm3 (0.00-0.00); Immature Granulocyte Percent A 2.4 % (0.0-0.0); Lymphocytes Absolute Auto 1.74 K/mm3 (1.10-4.50); Lymphocytes Percent Auto 17.1 % (18.0-42.0); Mean Corpuscular HGB Conc 26.2 g/dL (32-36); Mean Corpuscular Hemoglobin 22.8 pg (27.0-31.0); Mean Corpuscular Volume 87.2 fL (78.0-102.0); Mean Platelet Volume 10.6 fl (9.2-11.8); Monocytes Absolute Auto 0.75 K/mm3 (0.10-0.90); Monocytes Percent Auto 7.4 % (2.0-11.0); Neutrophils Absolute Auto 7.36 K/mm3 (1.70-7.20); Nucleated Red Blood Cells Absolute Auto 0.03 K/mm3 (0.00-0.00); Nucleated Red Blood Cells Perc 0.3 % (0-0.0); Platelet Count Result 385 K/mm3 (150-420); Red Cell Distribution Width 23.1 % (11.6-14.4); White Blood Count 10.2 K/mm3 (4.8-10.8)
[2024-12-04 09:25] LABS: Troponin I 157.9 ng/L (0.00-60.4)
[2024-12-04 09:33] LABS: Alanine Aminotransferase 53 U/L (14-59); Albumin Level 3.9 g/dL (3.4-5.0); Alkaline Phosphatase 111 U/L (46-116); Anion Gap 10 mmol/L (4-12); Aspartate Amino Transferase 16 U/L (15-37); Bilirubin,Total 0.4 mg/dL (0.00-1.00); Blood Urea Nitrogen 27 mg/dL (7-18); Calcium 8.8 mg/dL (8.5-10.1); Carbon Dioxide 34 mmol/L (21-32); Chloride 95 mmol/L (98-108); Estimated CRCL calculation 53 ml/min; Estimated Glomerular Filt Rate > 60; Glucose 323 mg/dL (70-99); Osmolality Calculated 305 mOsm/kg (285-295); Potassium 4.8 mmol/L (3.5-5.1); Sodium 139 mmol/L (136-145); Total Protein 6.8 g/dL (6.4-8.2)
[2024-12-04] MEDS: CALCIUM CARBONATE (TUMS) 500 MG (200 MG ELEMENTAL) 400 MG PO ×2 (10:13→13:35)
[2024-12-04] MEDS: PREGABALIN (*CRX) 25 MG CAPSULE PO (10:15)
[2024-12-04] MEDS: MIDODRINE HCL 2.5 MG TABLET 10 MG PO ×2 (10:15→13:34)
[2024-12-04] MEDS: FUROSEMIDE 40 MG TABLET PO (10:15)
[2024-12-04] MEDS: DULoxetine HCL 30 MG CAPSULE.DR 60 MG PO (10:15)
[2024-12-04] MEDS: POTASSIUM CHLORIDE 20 MEQ ER TABLET PO (10:16)
[2024-12-04] MEDS: SACUBITRIL/VALSARTAN 24-26 MG TABLET 0.5 TAB PO (10:16)
[2024-12-04] MEDS: ATORVASTATIN 10 MG TABLET 20 MG PO (10:16)
[2024-12-04] MEDS: PANTOPRAZOLE 40 MG TABLET PO (10:16)
[2024-12-04 10:17] VITALS: PULSE 103
[2024-12-04] MEDS: PREGABALIN (*CRX) 50 MG CAPSULE PO (10:17)
[2024-12-04] MEDS: metFORMIN HCL 500 MG TABLET PO (10:17)
--- NOTE | 2024-12-04 10:26 | P.TS_ITS ---
Transfer Discharge Sum: Prov Provider Date of admission: 11/30/24 18:08 Primary care physician: Juni Hays, Admitting clinician: Pito Laguna MD Attending physician on discharge: Osvaldo Laguna Discharging clinician: Debbie Youngblood Anticipated date of transfer: 12/04/24 Receiving physician/facility: [facility] DS: Admitting Diagnosis Discharge Date 12/04/24 Admitting Diagnosis Weakness DS: Discharge Diagnosis Discharge Diagnosis (1) Weakness: Code(s): R53.1 - Weakness Status: Acute (2) CHF (congestive heart failure): Code(s): I50.9 - Heart failure, unspecified Status: Acute (3) Atrial fibrillation: Code(s): I48.91 - Unspecified atrial fibrillation Status: Chronic (4) Hyperlipidemia: Code(s): E78.5 - Hyperlipidemia, unspecified Status: Acute (5) Type 2 diabetes mellitus: Code(s): E11.9 - Type 2 diabetes mellitus without complications Status: Acute (6) Hypothyroidism: Code(s): E03.9 - Hypothyroidism, unspecified Status: Acute (7) GERD (gastroesophageal reflux disease): Code(s): K21.9 - Gastro-esophageal reflux disease without esophagitis Status: Acute (8) C. difficile diarrhea: Code(s): A04.72 - Enterocolitis due to Clostridium difficile, not specified as recurrent Status: Acute Transfer Discharge Sum: Med Medications Active and Home Medications: Home Medications Dexcom G7 Sensor 12/04/23 [History Confirmed 11/30/24] aspirin 81 mg tablet,delayed release 81 mg PO DAILY 12/04/23 [History Confirmed 11/30/24] atorvastatin 20 mg tablet 20 mg PO DAILY 12/04/23 [History Confirmed 11/30/24] bisacodyl 10 mg rectal suppository 10 mg RECTAL DAILY PRN Constipation 12/04/23 [History Confirmed 11/30/24] cyclobenzaprine 5 mg tablet 10 mg PO TID PRN Muscle Spasms 12/04/23 [History Confirmed 11/30/24] duloxetine 60 mg capsule,delayed release 60 mg PO DAILY 12/04/23 [History Confirmed 11/30/24] ergocalciferol (vitamin D2) 25,000 unit capsule 50,000 unit PO WEEKLY 12/04/23 [History Confirmed 11/30/24] insulin lispro 100 unit/mL subcutaneous solution 15 unit subcut TIDWMEAL 12/04/23 [History Confirmed 11/30/24] levothyroxine 125 mcg tablet 125 mcg PO DAILY 12/04/23 [History Confirmed 11/30/24] naloxone 4 mg/actuation nasal spray 1 spray intranasal Q3M PRN Opioid Reversal 12/04/23 [History Confirmed 11/30/24] potassium chloride 20 mEq tablet,extended release 20 meq PO DAILY 12/04/23 [History Confirmed 11/30/24] pregabalin 75 mg capsule 75 mg PO BID 12/04/23 [History Confirmed 11/30/24] ropinirole 0.25 mg tablet 0.25 mg PO HS 12/04/23 [History Confirmed 11/30/24] sacubitril 24 mg-valsartan 26 mg tablet (Entresto) 0.5 tablet PO BID 12/04/23 [History Confirmed 11/30/24] ondansetron 4 mg disintegrating tablet 4 mg PO Q6H PRN Nausea And Vomiting #0 tabs 12/15/23 [Rx Confirmed 11/30/24] oxymetazoline 0.05 % nasal spray (Nasal Decongestant (oxymetazoline)) 1 spray intranasal Q12HR PRN nose bleed #15 mL 07/19/24 [Rx Confirmed 11/30/24] Anusol-HC 25 mg RECTAL DAILY PRN Hemorrhoids 08/30/24 [History Confirmed 11/30/24] acetaminophen 325 mg tablet 650 mg PO Q6H PRN Fever Or Pain 08/30/24 [History Confirmed 11/30/24] alendronate 70 mg tablet 70 mg PO WEEKLY 08/30/24 [History Confirmed 11/30/24] artifi.tears(hypromellose)(PF) 0.3 % eye drops 2 drp EACH EYE TID PRN Dry Eye(S) 08/30/24 [History Confirmed 11/30/24] bisacodyl 5 mg tablet,delayed release 10 mg PO DAILY PRN Constipation 08/30/24 [History Confirmed 11/30/24] buprenorphine 10 mcg/hour weekly transdermal patch 1 patch transdermal Q7D 08/30/24 [History Confirmed 11/30/24] calcium carbonate 1,000 mg PO TID PRN dyspepsia 08/30/24 [History Confirmed 11/30/24] empagliflozin 10 mg tablet 10 mg PO DAILY 08/30/24 [History Confirmed 11/30/24] furosemide 40 mg tablet 40 mg PO BID 08/30/24 [History Confirmed 11/30/24] hydrocortisone 2.5 % topical cream with perineal applicator 1 applic RECTAL QID PRN Hemorrhoids 08/30/24 [History Confirmed 11/30/24] metoprolol tartrate 25 mg tablet 12.5 mg PO BID 08/30/24 [History Confirmed 11/30/24] midodrine 10 mg tablet 10 mg PO TID 08/30/24 [History Confirmed 11/30/24] oxycodone 5 mg tablet 10 mg PO Q4H PRN Pain 08/30/24 [History Confirmed 11/30/24] pantoprazole 40 mg tablet,delayed release 40 mg PO BID 08/30/24 [History Confirmed 11/30/24] sodium chloride 0.65 % nasal spray aerosol (Saline Nasal) 2 spray intranasal Q2H PRN Dry Nasal Passages 08/30/24 [History Confirmed 11/30/24] metformin 500 mg tablet 500 mg PO BID #30 tabs 09/10/24 [Rx Confirmed 11/30/24] warfarin 1 mg tablet 1.5 mg (1.5 x 1 mg) PO WEEKLY #15 tabs 09/10/24 [Rx Confirmed 11/30/24] insulin glargine-yfgn 100 unit/mL subcutaneous solution (Semglee (insulin glargine-yfgn)) 35 unit (0.35 mL) subcut QAM #10 mL 09/13/24 [Rx Confirmed 11/30/24] phenylephrine HCl 1 % nasal spray (Parish-Synephrine (phenylephrine)) 1 spray intranasal Q6H PRN nasal congestion 3 days #15 mL 10/20/24 [Rx Confirmed 11/30/24] amiodarone 200 mg tablet 200 mg PO DAILY 11/30/24 [History Confirmed 11/30/24] insulin glargine 100 unit/mL subcutaneous solution (Lantus U-100 Insulin) 27 unit subcut QAM 11/30/24 [History Confirmed 11/30/24] warfarin 2 mg tablet 3 mg PO DAILY 11/30/24 [History Confirmed 11/30/24] Active Medications Acetaminophen (Acetaminophen 325 Mg Tablet) 650 mg PO Q6H PRN PRN Reason: Fever Or Pain Last Admin: 12/03/24 20:57 Dose: 650 mg Amiodarone HCl (Amiodarone Hcl 200 Mg Tablet) 200 mg PO DAILY@0800 [facility] Last Admin: 12/03/24 09:41 Dose: 200 mg Artificial Tears (Artificial Tears Ophth Soln 15 Ml Bottle) 2 drop EACH EYE TID PRN PRN Reason: Dry Eye(S) Aspirin (Aspirin 81 Mg Enteric Tablet) 81 mg PO DAILY [facility] Last Admin: 12/03/24 09:55 Dose: 81 mg Atorvastatin Calcium (Atorvastatin 10 Mg Tablet) 20 mg PO DAILY [facility] Last Admin: 12/03/24 09:39 Dose: 20 mg Bisacodyl (Bisacodyl 5 Mg Tablet Ec) 10 mg PO DAILY PRN PRN Reason: Constipation Bisacodyl (Bisacodyl 10 Mg Suppository) 10 mg RECTAL DAILY PRN PRN Reason: Constipation Calcium Carbonate (Calcium Carbonate (Tums) 500 Mg (200 Mg Elemental)) 400 mg PO TID [facility] Last Admin: 12/03/24 17:08 Dose: 400 mg Cyclobenzaprine HCl (Cyclobenzaprine Hcl 10 Mg Tablet) 10 mg PO TID PRN PRN Reason: Muscle Spasms Last Admin: 12/04/24 00:24 Dose: 10 mg Dextrose (Dextrose 50% 25 Gm/50 Ml Syringe) 12.5 gm IV PUSH PRN PRN; Protocol PRN Reason: Hypoglycemia Duloxetine HCl (Duloxetine Hcl 30 Mg Capsule.Dr) 60 mg PO QAM [facility] Last Admin: 12/03/24 09:37 Dose: 60 mg Ergocalciferol (Ergocalciferol 50,000 Units Capsule) 50,000 units PO Fr@0900 [facility] Last Admin: 12/03/24 09:39 Dose: 50,000 units Furosemide (Furosemide 40 Mg Tablet) 40 mg PO BID [facility] Last Admin: 12/03/24 17:09 Dose: 40 mg Glucagon (Glucagon For Inj 1 Mg Vial) 1 mg IM PRN PRN; Protocol PRN Reason: Hypoglycemia Glucose (Glucose Oral Gel 15 Gm Of Glucse In 37.5 Gm Tube) 15 gm PO PRN PRN; Protocol PRN Reason: Hypoglycemia Heparin Sodium (Porcine) (Heparin Sodium 5,000 Units/Ml Vial) 0 units IV PUSH PRN PRN PRN Reason: aPTT less than 55 seconds Heparin Sodium (Porcine) (Heparin Sodium 5,000 Units/Ml Vial) 0 units IV PUSH PRN PRN PRN Reason: aPTT 55 - 70 seconds Hydrocortisone/Pramoxine (Hydrocortisone/Pramoxine 2.5% 30 Gm Cream) 1 applic RECTAL QID PRN PRN Reason: Hemorrhoids Dextrose (Dextrose 5% 1,000 Ml) 1,000 mls @ 100 mls/hr IVPB PRN PRN; Protocol PRN Reason: Hypoglycemia Heparin Sodium/Dextrose (Heparin Sodium/D5w 100 Units/Ml) 25,000 units in 250 mls @ 7.356 mls/hr IV CONT .Q24H [facility]; Protocol Insulin Glargine (Insulin Glargine (*Bkc) 1,000 Units/10 Ml Vial) 27 units SUB- Q QAM [facility] Last Admin: 12/03/24 09:50 Dose: 27 units Insulin Human Lispro (Insulin Human Lispro (*Bkc) 1,000 Units/10 Ml Vial) 2 - 5 units SUB-Q TIDWM [facility]; Protocol Last Admin: 12/03/24 17:15 Dose: Not Given Insulin Human Lispro (Insulin Human Lispro (*Bkc) 1,000 Units/10 Ml Vial) 15 units SUB-Q TIDWM [facility] Last Admin: 12/03/24 12:26 Dose: 15 units Levothyroxine Sodium (Levothyroxine Sodium 100 Mcg Tablet) 100 mcg PO DAILY@0630 [facility] Last Admin: 12/04/24 06:08 Dose: 100 mcg Levothyroxine Sodium (Levothyroxine Sodium 25 Mcg Tablet) 25 mcg PO DAILY@0630 [facility] Last Admin: 12/04/24 06:09 Dose: 25 mcg Metformin HCl (Metformin Hcl 500 Mg Tablet) 500 mg PO BIDWM [facility] Last Admin: 12/03/24 17:16 Dose: 500 mg Metoprolol Tartrate (Metoprolol Tartrate 12.5 Mg Tablet) 12.5 mg PO Q12HR [facility] Last Admin: 12/03/24 20:56 Dose: 12.5 mg Midodrine (Midodrine Hcl 2.5 Mg Tablet) 10 mg PO TID [facility] Last Admin: 12/03/24 19:23 Dose: 10 mg Miscellaneous Information (Pharmacist Communication Order) 1 each XX ONCE ONE Stop: 12/04/24 10:17 Morphine Sulfate (Morphine Sulfate (*Crx) 2 Mg/Ml Inj) 2 mg IV PUSH Q4H PRN PRN Reason: Pain Rated 7-10 Non-Formulary Medication (Buprenorphine) 1 patch TOPICAL Q7D [facility] Stop: 01/01/25 08:59 Last Admin: 12/02/24 10:44 Dose: 1 patch Nonformulary Drug ( Rizatriptan 10mg Tablet) 1 each PO Q2HR PRN PRN Reason: Migraine Headache Last Admin: 12/02/24 13:54 Dose: 1 each Ondansetron HCl (Ondansetron Hcl Odt 4 Mg Tablet) 4 mg PO Q6H PRN PRN Reason: Nausea And Vomiting Last Admin: 12/03/24 00:23 Dose: 4 mg Oxycodone HCl (Oxycodone Hcl (*Crx) 5 Mg Tab Ir) 10 mg PO Q4H PRN PRN Reason: Pain Rated 7-10 Last Admin: 12/04/24 06:09 Dose: 10 mg Oxymetazoline HCl (Oxymetazoline Hcl 0.05% Alexy 15 Ml Btl (*Bkc)) 1 spray NASAL Q12HR PRN PRN Reason: nose bleed Pantoprazole Sodium (Pantoprazole 40 Mg Tablet) 40 mg PO BID [facility] Last Admin: 12/03/24 17:10 Dose: 40 mg Potassium Chloride (Potassium Chloride 20 Meq Er Tablet) 20 meq PO DAILY@0800 [facility] Last Admin: 12/03/24 09:41 Dose: 20 meq Pregabalin (Pregabalin (*Crx) 50 Mg Capsule) 50 mg PO BID [facility] Last Admin: 12/03/24 17:10 Dose: 50 mg Pregabalin (Pregabalin (*Crx) 25 Mg Capsule) 25 mg PO BID [facility] Last Admin: 12/03/24 17:08 Dose: 25 mg Ropinirole HCl (Ropinirole Hcl 0.25 Mg Tablet) 0.25 mg PO HS [facility] Last Admin: 12/03/24 20:56 Dose: 0.25 mg Sacubitril/Valsartan (Sacubitril/Valsartan 24-26 Mg Tablet) 0.5 tab PO Q12HR [facility] Last Admin: 12/03/24 20:57 Dose: 0.5 tab Sodium Chloride (Saline 0.65% Alexy Soln 44 Ml Btl) 2 spray NASAL Q2H PRN PRN Reason: Dry Nasal Passages Vancomycin HCl (Vancomycin Hcl 125 Mg Oral Capsule) 125 mg PO Q6HR [facility] Stop: 12/12/24 00:01 Last Admin: 12/04/24 06:09 Dose: 125 mg Warfarin Sodium (Warfarin (*Pbkc) 0.5 Mg Tablet) 1.5 mg PO Metzger@1700 [facility] Warfarin Sodium (Warfarin (*Pbkc) 5 Mg Tablet) 5 mg PO MoTuWeThFrSa@1700 [facility] Last Admin: 12/03/24 18:26 Dose: 5 mg Transfer Discharge Sum: Hosp Hospital Course Hospital course: This is a 59 year old female with a significant past medical history of Atrial fibrillation, type 2 diabetes mellitus, depression, anxiety, chronic back pain, arthritis, hypertension, hyperlipidemia, fibromyalgia, migraine, thyroid cancer, hypothyroidism, coronary artery disease, sleep apnea, restless legs syndrome, irritable bowel syndrome, osteoporosis, GERD, congestive heart failure, former smoker who presents to [facility] swing bed program for rehab. Patient recently had barostim placement surgery on 11/18/2024 at [facility] for her chronic combined systolic and diastolic heart failure. She also received PT and OT while there who recommended additional rehab. she was accepted to the swing bed program here at [facility] and will continue with PT and OT. Patient started having diarrhea on 12/01/24. She had been on antibiotics recently so we checked a C diff and she was found to be positive. She was started on oral vancomycin. She will continue that for a duration of 10 days. This morning she was complaining of chest pain that she describes as heavy and sharp at times with pain radiating down her left arm. CXR Showed small lung volumes with bibasilar opacities with appearance favoring atelectasis over pneumonia, cardiomegaly. Initial labs showed a normal white blood cell count of 10.2, hemoglobin 8.9 INR 1.3, chloride 95, blood sugars ranging 305-323, troponin 157.9>158.9. Patient was given 324 mg of aspirin and started on a heparin infusion for ACS guidelines. Her heart rate is 99-103 and with her chest pain and being subtherapeutic on Coumadin we went ahead and got a chest CTA was negative for PE, showed small lung volume particularly on the right where there is elevation right hemidiaphragm with scattered atelectasis with dependent in lower lung predominance, moderate cardiomegaly, multiple irregular to positive high attenuation material within a region of masslike bulging of the capsule posteriorly in segment 7 of the liver consistent with chemo embolism for reported bladder cancer. [facility] was called and we got acceptance for [facility]. accepting. Awaiting bed placement. Final diagnosis: NSTEMI, C diff, physical deconditioning Condition: Serious Time Spent with Patient Time attestation: Total time spent providing and/or coordinating transfer services: Exam Narrative: General: In no acute distress, well nourished Cardiac: Reporting substernal chest pain that radiates down her left arm and in between shoulder blades, she reports the pain as a heaviness /pressure Respiratory: Lungs clear to auscultation, no adventitious lung sounds, currently on 3 L nasal cannula which is her baseline, shortness of breath with activity Gastrointestinal: soft, non-distended, non-tender, normoactive bowel sounds. BM today : voiding without difficulty. Extremities: moves all extremities well, 3 to 4+ pitting edema to bilateral lower extremities Neuro: Alert and oriented x4 DS: Data Data Completed and Pending Completed studies during hospitalization: chest x-ray chest CTA Pending studies at discharge: none Labs on day of discharge: Labs from last 24 hours 12/04/24 12/04/24 12/04/24 10:00 08:36 07:45 WBC 10.2 RBC 3.90 L Hgb 8.9 L Hct 34.0 L MCV 87.2 MCH 22.8 L MCHC 26.2 L RDW 23.1 H Plt Count 385 MPV 10.6 Immature Gran % (Auto) 2.4 H Neut % (Auto) 72.0 H Lymph % (Auto) 17.1 L Cedar % (Auto) 7.4 Eos % (Auto) 0.6 L Baso % (Auto) 0.5 Lymph # (Auto) 1.74 Cedar # (Auto) 0.75 Eos # (Auto) 0.06 Baso # (Auto) 0.05 Abs Immat Gran (auto) 0.24 H Absolute Neuts (auto) 7.36 H Absolute Nucleated RBC 0.03 H Nucleated RBC % 0.3 H PT Pending INR Pending APTT Pending Sodium 139 Potassium 4.8 Chloride 95 L Carbon Dioxide 34 H Anion Gap 10 BUN 27 H Creatinine 0.81 Estim Creat Clear Calc 53 Estimated GFR > 60 Glucose 323 H POC Capillary Glucose 303 H Calculated Osmolality 305 H Calcium 8.8 Magnesium Total Bilirubin 0.4 AST 16 ALT 53 Alkaline Phosphatase 111 Troponin I 157.9 H* Total Protein 6.8 Albumin 3.9 12/04/24 12/03/24 12/03/24 05:24 20:55 17:08 WBC RBC Hgb Hct MCV MCH MCHC RDW Plt Count MPV Immature Gran % (Auto) Neut % (Auto) Lymph % (Auto) Cedar % (Auto) Eos % (Auto) Baso % (Auto) Lymph # (Auto) Cedar # (Auto) Eos # (Auto) Baso # (Auto) Abs Immat Gran (auto) Absolute Neuts (auto) Absolute Nucleated RBC Nucleated RBC % PT 13.3 H INR 1.2 APTT Sodium 143 Potassium 5.2 H Chloride 99 Carbon Dioxide 36 H Anion Gap 8 BUN 27 H Creatinine 0.87 Estim Creat Clear Calc 49 Estimated GFR > 60 Glucose 315 H POC Capillary Glucose 320 H 126 H Calculated Osmolality 313 H Calcium 8.8 Magnesium 1.9 Total Bilirubin AST ALT Alkaline Phosphatase Troponin I Total Protein Albumin 12/03/24 12/03/24 15:37 11:42 WBC RBC Hgb Hct MCV MCH MCHC RDW Plt Count MPV Immature Gran % (Auto) Neut % (Auto) Lymph % (Auto) Cedar % (Auto) Eos % (Auto) Baso % (Auto) Lymph # (Auto) Cedar # (Auto) Eos # (Auto) Baso # (Auto) Abs Immat Gran (auto) Absolute Neuts (auto) Absolute Nucleated RBC Nucleated RBC % PT INR APTT Sodium Potassium Chloride Carbon Dioxide Anion Gap BUN Creatinine Estim Creat Clear Calc Estimated GFR Glucose POC Capillary Glucose 165 H > 450 H Calculated Osmolality Calcium Magnesium Total Bilirubin AST ALT Alkaline Phosphatase Troponin I Total Protein Albumin Procedures/Treatments: none
[2024-12-04 10:30] LABS: INR 1.3; Partial Thromboplastin Time 20.5 Sec (23.9-30.70); Prothrombin Time 13.8 Seconds (9.50-12.1)
[2024-12-04] MEDS: MORPHINE SULFATE (*CRX) 2 MG/ML INJ IV PUSH (11:44)
[2024-12-04 11:54] LABS: Glucose Point of Care 325 mg/dl (65-105)
--- NOTE | 2024-12-04 12:00 | PC.NURSE ---
0830 keith cement handler aware of c/o of chest pain. new orders. 0930 cement handler aware of elevated tropin 157.6. new orders
[2024-12-04 12:02] LABS: Troponin I 158.9 ng/L (0.00-60.4)
[2024-12-04] MEDS: HEPARIN SODIUM 5,000 UNITS/ML VIAL 3500 UNITS IV PUSH (13:31)
[2024-12-04] MEDS: HEPARIN SOD/D5W 100 UNITS/ML 25,000 UNITS/250 ML BAG 7 UNITS IV CONT (13:32)
== END 2024-12-04 14:45 | disposition short-term general hospital (02) | DRG 947 ==
PROVIDERS: Nurse Practitioner Family; Admitting Provider Internal Medicine; PCP Internal Medicine; Visit Provider Nurse Practitioner Acute Care
DX: R53.1 Weakness (principal); I21.4 Non-ST elevation (NSTEMI) myocardial infarction; I50.42 Chronic combined systolic (congestive) and diastolic (congestive) heart failure; I48.20 Chronic atrial fibrillation, unspecified; I48.92 Unspecified atrial flutter; J96.11 Chronic respiratory failure with hypoxia; C22.8 Malignant neoplasm of liver, primary, unspecified as to type; I42.9 Cardiomyopathy, unspecified; A04.72 Enterocolitis due to Clostridium difficile, not specified as recurrent; M47.12 Other spondylosis with myelopathy, cervical region; I11.0 Hypertensive heart disease with heart failure; I25.10 Atherosclerotic heart disease of native coronary artery without angina pectoris; E78.5 Hyperlipidemia, unspecified; E11.42 Type 2 diabetes mellitus with diabetic polyneuropathy; E03.9 Hypothyroidism, unspecified; K21.9 Gastro-esophageal reflux disease without esophagitis; K58.9 Irritable bowel syndrome, unspecified; M81.0 Age-related osteoporosis without current pathological fracture; M19.90 Unspecified osteoarthritis, unspecified site; M47.22 Other spondylosis with radiculopathy, cervical region; M79.7 Fibromyalgia; M54.9 Dorsalgia, unspecified; G89.29 Other chronic pain; G25.81 Restless legs syndrome; G47.30 Sleep apnea, unspecified; F41.9 Anxiety disorder, unspecified; F32.A Depression, unspecified; Z98.1 Arthrodesis status; Z85.850 Personal history of malignant neoplasm of thyroid; Z95.810 Presence of automatic (implantable) cardiac defibrillator; Z79.82 Long term (current) use of aspirin; Z79.4 Long term (current) use of insulin; Z79.01 Long term (current) use of anticoagulants; Z87.891 Personal history of nicotine dependence
CPT/HCPCS: 36415; 71045; 71275; 80048; 80053; 82948; 83036; 83735; 84132; 84484; 85025; 85610; 85730; 87493; 93005; 97110; 97161; 97165; 97530; 97535; A9270; J1644; J1815; J2270; Q9967

== ENCOUNTER 2024-12-09 17:53 | Inpatient (IN) | payer OTHER, MEDICARE, SELFPAY ==
--- NOTE | ~2024-12-09 | XR_ITS ---
EXAMINATION: XR lumbar spine 2-3V DATE: 12/16/2024 14:01 INDICATION: Back pain. TECHNIQUE: 3 views of lumbar spine were obtained. COMPARISON: lumbar spine CT 10/31/20 FINDINGS: Alignment is normal. There are changes of anterior fusion procedure at L5-S1 with anterior plate and screws and interbody device. There is chronic fracture of the S1 screws. There are changes of posterior fusion procedure from the thoracic spine to the sacrum and iliac bones with screws and r ods. There is mild chronic height loss of T10, T11, T12, L1, L3, and L4 vertebral bodies. There is mo derately decreased disc height at L4-L5. Surgical clips in the right upper quadrant are likely from c holecystectomy. There is internal fixation of right femoral head and neck. There are healing fracture s of the bilateral superior pubic rami. IMPRESSION: 1. Moderate lumbar spondylosis. 2. Posterior fusion procedure from the thoracic spine to the sacrum and iliac bones. 3. Anterior fusion procedure at L5-S1. Reviewed, dictated and finalized at location A. E INSURANCE EXAMINER IMPRESSION: 1. Moderate lumbar spondylosis. 2. Posterior fusion procedure from the thoracic spine to the sacrum and iliac b ones. 3. Anterior fusion procedure at L5-S1.
--- NOTE | ~2024-12-09 | XR_ITS ---
HISTORY: left hip pain s/p fall from a standing position. COMPARISON: None TECHNIQUE: 2 views of the left hip along with an AP view of the pelvis FINDINGS: Fixation hardware is identified within the lower lumbar spine as well as within the bilateral sacroil iac joints. 3 screws traverse a right femoral neck fracture. Prior fracture deformities are identified within the bilateral superior and inferior pubic rami. The left femur is without acute fracture. Superior lateral sclerosis is identified within the left femoral acetabular joint space, consistent w ith osteoarthritis. IMPRESSION: Significant degenerative disease with multiple prior fracture deformities without plain radiographic evidence to suggest an acute fracture within the left hip. Reviewed, dictated and finalized at location A. UTER SCIENCE INTERN IMPRESSION: Significant degenerative disease with multiple prior fracture defo rmities without plain radiographic evidence to suggest an acute fracture within the left hip.
--- NOTE | ~2024-12-09 | XR_ITS ---
EXAMINATION: XR knee RT 3V DATE: 12/16/2024 14:01 INDICATION: Right knee pain. Fall. TECHNIQUE: 3 views of right knee were obtained. COMPARISON: None. FINDINGS: Alignment is normal. No fracture. There is mild osteoarthritis of medial compartment. No kn ee joint effusion. IMPRESSION: 1. Mild right knee osteoarthritis. Reviewed, dictated and finalized at location A. DDED NURSE
--- NOTE | ~2024-12-09 | XR_ITS ---
EXAMINATION: XR chest 1V portable Exam Date/Time: 12/26/2024 14:24 CDT HISTORY: shortness of breath Comparison: 12/04/2024. RESULT: Lines, tubes, and devices: Right chest stimulator pack, lead extending up the right neck. Left chest pacer/AICD, intact lead. Partially visualized cervical and thoracolumbar fusion hardware. Multilevel vertebral body cement. Cholecystectomy clips. Lungs and pleura: Low volumes with crowding. Patchy and streaky bilateral mid and lower lung opaciti es. Mild bilateral costophrenic angle blunting. Cardiomediastinal silhouette: Stable. Other: No acute osseous or upper abdominal finding. IMPRESSION: Bibasilar subsegmental atelectasis/consolidation. Possible small bilateral effusions. Reviewed, dictated and finalized at location K. IMPRESSION: Bibasilar subsegmental atelectasis/consolidation. Possible small bilateral effu sions.
--- NOTE | ~2024-12-09 | CT_ITS ---
EXAMINATION: CT chest abdomen pelvis wo con DATE: 12/26/2024 18:04 INDICATION: Anemia/hypotension/sob . TECHNIQUE: Computed tomography (CT) of the chest, abdomen, and pelvis was performed without intraveno us contrast. Automated exposure control and iterative reconstruction technique were employed. The dos e-length product was 758.18 mGy-cm. COMPARISON: X-ray chest, same date: CTPA 12/04/2024; CT abdomen pelvis 07/06/2012. FINDINGS: CHEST: Thoracic aorta: No significant dilation. No dissection. Mild atherosclerotic calcification. Lung parenchyma and airways: Right hemidiaphragm elevation. Low volumes. Mild septal thickening and s cattered groundglass opacities. Mid and lower lung bandlike opacities likely representing scar/atelec tasis. Patent airways. Thoracic inlet, axillae and chest wall: Left chest pacer/AICD and right chest tube radiopaque create considerable metallic artifact. Mediastinum: No mass or lymphadenopathy. Dilated central pulmonary arteries, as can be seen with pulm onary arterial hypertension. Heart and pericardium: Enlarged heart. No pericardial effusion. Coronary artery calcifications: Mild. Pleura: No effusion or mass. Thoracic bones: No acute osseous finding in the chest. Partially visualized cervical fusion hardware. Inferior sternal fracture, with a somewhat crumpled, multi segmental appearance. Multilevel vertebro plasty cement. Uncomplicated appearing thoracolumbar fusion hardware. Multilevel stable compression d eformities in the thoracic spine. Multiple chronic left-sided rib fractures. ABDOMEN/PELVIS: Liver: Grossly stable right liver lobe mass with posttreatment change. Biliary/Gallbladder: Gallbladder is absent. No bile duct dilation. Pancreas: No mass or duct dilation. Spleen: Normal. Adrenals:No mass. Kidneys: No suspicious mass, obstructing stone, or hydronephrosis. GI tract: No small or large bowel dilation. Fecal content in the distal small bowel. Normal appendix. Mesentery/Peritoneum: No ascites, mass, or free air. Retroperitoneum: No mass Pelvis: Distended urinary bladder. Absent uterus. Atrophic left ovary. Right ovary not visualized. Soft Tissues: Soft tissues and body wall unremarkable. Abdominopelvic bones: No acute osseous finding in the abdomen/pelvis. Status post right hip pinning. Status post anterior fusion in the lower lumbar spine with fractures of the inferior screws, a chron ic finding. Interbody devices in good position. Extensive posterior thoracolumbar fusion and bilatera l SI joint fixation, without obvious complication. Multilevel lumbar compression deformities. Multipl e chronic appearing pelvic fractures. IMPRESSION: Mild interstitial edema. Extensive bandlike areas of atelectasis in the lungs. Chronic right hemidiap hragm elevation. Acute inferior sternal fracture (new since the 12/04/2024 examination). Grossly stable right liver lobe mass with likely chemoembolization changes. Fecal content in the distal small bowel, without overt findings of obstruction, may represent decreas ed transit time. Distended urinary bladder, correlate for urinary retention. Multilevel lumbar compression deformities, presumed chronic although no recent comparison is availabl e. Correlate for pain/tenderness. Reviewed, dictated and finalized at location K. IMPRESSION: Mild interstitial edema. Extensive bandlike areas of atelectasis in the lungs. Chronic right hemidiaphragm elevation. Acute inferior sternal fracture (new since the 12/04/2024 examination). Grossly stable right liver lobe mass with likely chemoembolization changes. Fecal content in the distal small bowel, without overt findings of obstruction, may represent decreased transit time. Distended urinary bladder, correlate for urinary retention. Multilevel lumbar compression deformities, presumed chronic although no recent comparison is available. Correlate for pain/tenderness.
--- NOTE | ~2024-12-09 | XR_ITS ---
EXAMINATION: XR knee LT 3V DATE: 12/16/2024 14:01 INDICATION: Left knee pain. Fall. TECHNIQUE: 3 views of left knee were obtained. COMPARISON: None. FINDINGS: Alignment is normal. No fracture. Joint spaces are normal. No knee joint effusion. IMPRESSION: 1. Normal left knee. Reviewed, dictated and finalized at location A. ER OPERATOR IMPRESSION: 1. Normal left knee.
--- NOTE | 2024-12-09 17:55 | ADMGEN ---
This patient, Blossom De León, was admitted to 2nd Floor Room 202-1. Patient/family oriented to hospital policies and general routines including ID bracelet, bed and alarms, visiting hours, pain management, procedures, bathroom and other care routines, personal items, smoking policy, room service/diet, and visiting hours. Information on how to activate the Rapid Response Team has been discussed. Patient/Family are encouraged to report perceived risks to care and to ask questions if they do not understand what they are told or what they should do.
[2024-12-09 18:00] VITALS: O2SAT 100
--- OUTSIDE RECORDS SUMMARY | 2024-12-09 18:00 | XMS_ITS | Encounter Summary ---
Author Organization [facility] Address [address] [place] [address] Phone Care Team Providers Care Auxiliary Operator Name Role Phone Juni Hays MD Primary Care Provider [phone] Shivam Benedict MD Unavailable Radha Crews APRN, [facility] Unavailable +- [phone] Sacha Penn MD Unavailable [phone] Encounter Details Date Type Department Care Team (Late st Contact Info) Description 12/03/2022 Nursing Facility [facility] [address] [place] [address] Varghese Gleason, [facility] [address] [place], [place] [id number] Social History Tobacco Use Types Packs/Day Years [...] Coronavirus/COVID-19? No / Unsure 11/22/2022 3:36 PM BRIDAL CONSULTANT documented as of this encounter Progress Notes * Varghese Gleason, PAC - 12/03/2022 12:47 PM CST [facility] INTERMEDIATE PROGRESS NOTE Blossom De León is a 57 y.o. female at [facility] for rehabilitation. Patient was hospitalized at [facility] from 08/16/2022 through 09/02/2022 for unstable burst fracture of the 4th lumbar vertebrae along with lumbar stenosis and neurogenic claudication which was treated with extensive lumbar surgery. Apparently after leaving the hospital she developed COVID-19 which made her weakness worse, did spend some time at [facility] prior to transferring to this facility [...] PROXIMAL HUMERUS; Surgeon: Prosper Tolbert MD; Location: [facility]; Service: Orthopaedic ??? LUMBAR FUSION HAS CAGE [...] repair Followed by neurosurgery Dr. Richardson at [facility] pain medicines Wearing brace at all times Receiving alf and physical therapy rehabilitation 11/19: Patient saying [...] She does live with her daughter but [facility] does work full-time. If she ends up [...] system and there may be errors in director imaging. Despite proof reading the note, there may be mistakes and I apologize for those. By: RUDY Miller, 12/03/2022 12:47 PM BRIDAL CONSULTANT AL CONSULTANT documented in this encounter Plan of Treatment Not on file documented as of this encounter Visit Diagnoses Not on filedocumented in this encounter Care Teams Auxiliary Operator Relationship Specialty Start Date End Date Juni Hays MD PCP - General Internal Medicine 10/17/20 Shivam Benedict MD [address] [place] [address] Consulting Physician Pulmonary Disease 12/27/21 Radha Crews APRN, [employer] [address] [place] [address] Nurse Practitioner Advanced Practice Nurse 01/04/22 Sacha Penn MD [address] [place] [address] Consulting Physician Neurology 07/25/23 documented as of this encounter
--- OUTSIDE RECORDS SUMMARY | 2024-12-09 18:00 | XMS_ITS | Encounter Summary ---
Author Organization [facility] Address [address] [place] [address] Phone Care Team Providers Care Integrity Analyst Name Role Phone Juni Hays MD Primary Care Provider [phone] Shivam Benedict MD Unavailable Radha Crews APRN, [facility] Unavailable [phone]- [phone] Sacha Penn MD Unavailable [phone] Encounter Details Date Type Department Care Team (Late st Contact Info) Description 12/25/2022 Nursing Facility [facility] [address] [place] [address] Varghese Gleason, [facility] [address] [place], [place] [id number] Social History Tobacco Use Types Packs/Day Years [...] Gleason, PAC - 12/25/2022 1:53 PM CDT [facility] PROGRESS NOTE Blossom De León is a 57 y.o. female at [facility] for rehabilitation. Patient was hospitalized at [facility] from 08/16/2022 through 09/02/2022 for unstable burst fracture of the 4th lumbar vertebrae along with lumbar stenosis and neurogenic claudication which was treated with extensive lumbar surgery. Apparently after leaving the hospital she developed COVID-19 which made her weakness worse, did spend some time at [facility] prior to transferring to this facility on 11/05/2022. Subjective: Interval History: I am seeing patient acutely today for routine monthly fdc visit. Feels like things are going well [...] PROXIMAL HUMERUS; Surgeon: Prosper Tolbert MD; Location: [facility]; Service: Orthopaedic ??? LUMBAR FUSION HAS CAGE IN PLACE ??? THYROID SURGERY 10/1986 [facility] Review of Systems: A 14 point comprehensive [...] repair Followed by neurosurgery Dr. Richardson at [facility] pain medicines Wearing brace at all times Receiving retirement and physical therapy rehabilitation 11/19: Patient saying [...] system and there may be errors in regulatory compliance engineer. Despite proof reading the note, there may be mistakes and I apologize for those. By: RUDY Miller, 12/25/2022 1:53 PM CDT documented in this encounter Plan of Treatment Not on file documented as of this encounter Visit Diagnoses Not on filedocumented in this encounter Care Teams Integrity Analyst Relationship Specialty Start Date End Date Juni Hays MD PCP - General Internal Medicine 10/17/20 Shivam Benedict MD [address] [place] [address] Consulting Physician Pulmonary Disease 12/27/21 Radha Crews, DIPPING MACHINE OPERATOR, TRUCK DESPATCHER [address] [place] [address] Nurse Practitioner Advanced Practice Nurse 01/04/22 Sacha Penn MD [address] [place] [address] Consulting Physician Neurology 07/25/23 documented as of this encounter
--- OUTSIDE RECORDS SUMMARY | 2024-12-09 18:00 | XMS_ITS | Encounter Summary ---
Author Organization [facility] Address [address] [place] [address] Phone Care Team Providers Care Animal Stunner Name Role Phone Juni Hays MD Primary Care Provider [phone] Shivam Benedict MD Unavailable Radha Crews APRN, [facility] Unavailable + [phone] Sacha Penn MD Unavailable +[phone] Reason for Visit * Reason Onset Date Comments Medication Refill 12/17/2022 Encounter Details Date Type Department Care Team (Late st Contact Info) Description 12/17/2022 Refill [facility] [address] [place] [address] Varghese Gleason, PAC [address] [place], [place] [address] Medication Refill Social History Tobacco Use Types [...] Coronavirus/COVID-19? No / Unsure 11/22/2022 3:36 PM CHIEF MEDICAL OFFICER documented as of this encounter Plan of Treatment Not on file documented as of this encounter Visit Diagnoses Diagnosis Other chronic pain- Primary Cervicalgia documented in this encounter Care Teams Animal Stunner Relationship Specialty Start Date End Date Juni Hays MD PCP - General Internal Medicine 10/17/20 Shivam Benedict MD [address] [place] [address] Consulting Physician Pulmonary Disease 12/27/21 Radha Crews, GARNETT MECHANIC, IMAGE PROCESSING ENGINEER [address] [place] [address] Nurse Practitioner Advanced Practice Nurse 01/04/22 Sacha Penn MD [address] [place] [address] Consulting Physician Neurology 07/25/23 documented as of this encounter
--- OUTSIDE RECORDS SUMMARY | 2024-12-09 18:00 | XMS_ITS | Encounter Summary ---
Author Organization [facility] Address [address] [place] [address] Phone Care Team Providers Care Gas Operations Analyst Name Role Phone Juni Hays MD Primary Care Provider [phone] Shivam Benedict MD Unavailable Radha Crews APRN, [facility] Unavailable +- [phone] Sacha Penn MD Unavailable [phone] Encounter Details Date Type Department Care Team (Late st Contact Info) Description 11/26/2022 Nursing Facility [facility] [address] [place] [address] Varghese Gleason, [facility] [address] [place], [place] [id number] Social History Tobacco Use Types Packs/Day Years [...] Coronavirus/COVID-19? No / Unsure 11/22/2022 3:36 PM CASE RESOLUTION SPECIALIST documented as of this encounter Progress Notes * Varghese Gleason, PAC - 11/26/2022 1:59 PM CST [facility] RESIDENTIAL PROGRESS NOTE Blossom De León is a 57 y.o. female at [facility] for rehabilitation. Patient was hospitalized at [facility] from 08/16/2022 through 09/02/2022 for unstable burst fracture of the 4th lumbar vertebrae along with lumbar stenosis and neurogenic claudication which was treated with extensive lumbar surgery. Apparently after leaving the hospital she developed COVID-19 which made her weakness worse, did spend some time at [facility] prior to transferring to [...] PROXIMAL HUMERUS; Surgeon: Prosper Tolbert MD; Location: [facility]; Service: Orthopaedic ??? LUMBAR FUSION HAS CAGE IN PLACE ??? THYROID SURGERY 10/1986 [place] Druze Review of Systems: A 14 point comprehensive [...] repair Followed by neurosurgery Dr. Richardson at [place] [facility] pain medicines Wearing brace at all times Receiving nursing home and physical therapy rehabilitation 11/19: Patient saying [...] system and there may be errors in diversional therapist's assistant. Despite proof reading the note, there may be mistakes and I apologize for those. By: RUDY Miller, 11/26/2022 2:01 PM CASE RESOLUTION SPECIALIST RESOLUTION SPECIALIST documented in this encounter Plan of Treatment Not on file documented as of this encounter Visit Diagnoses Not on filedocumented in this encounter Care Teams Gas Operations Analyst Relationship Specialty Start Date End Date Juni Hays MD PCP - General Internal Medicine 10/17/20 Shivam Benedict MD [address] [place] [address] Consulting Physician Pulmonary Disease 12/27/21 Radha Crews APRN, SILVERWARE CLEANER [address] [place] [address] Nurse Practitioner Advanced Practice Nurse 01/04/22 Sacha Penn MD [address] [place] [address] Consulting Physician Neurology 07/25/23 documented as of this encounter
--- OUTSIDE RECORDS SUMMARY | 2024-12-09 18:00 | XMS_ITS | Encounter Summary ---
Author Organization [facility] Address [address] [place] [address] Phone Care Team Providers Care Carton Maker Name Role Phone Juni Hays MD Primary Care Provider [phone] Shivam Benedict MD Unavailable Radha Crews APRN, [facility] Unavailable +- [phone] Sacha Penn MD Unavailable [phone] Encounter Details Date Type Department Care Team (Late st Contact Info) Description 01/06/2023 Nursing Facility [facility] [address] [place] [address] Varghese Gleason, [facility] [address] [place], [place] [id number] Social History Tobacco Use Types Packs/Day Years [...] Gleason, PAC - 01/06/2023 4:06 PM CDT [facility] PROGRESS NOTE Blossom De León is a 57 y.o. female at [facility] for rehabilitation. Patient was hospitalized at [facility] from 08/16/2022 through 09/02/2022 for unstable burst fracture of the 4th lumbar vertebrae along with lumbar stenosis and neurogenic claudication which was treated with extensive lumbar surgery. Apparently after leaving the hospital she developed COVID-19 which made her weakness worse, did spend some time at [facility] prior to transferring to this facility [...] PROXIMAL HUMERUS; Surgeon: Prosper Tolbert MD; Location: [facility]; Service: Orthopaedic ??? LUMBAR FUSION HAS CAGE IN PLACE ??? THYROID SURGERY 10/1986 [place] Quaker Review of Systems: A 14 point comprehensive [...] repair Followed by neurosurgery Dr. Richardson at [place] [facility] pain medicines Wearing brace at all times Receiving [facility] and physical therapy rehabilitation 11/19: Patient saying [...] system and there may be errors in rehab trainer. Despite proof reading the note, there may be mistakes and I apologize for those. By: Varghese Gleason, RUDY, 01/06/2023 4:06 PM CDT documented in this encounter Plan of Treatment Not on file documented as of this encounter Visit Diagnoses Not on filedocumented in this encounter Care Teams Carton Maker Relationship Specialty Start Date End Date Juni Hays MD PCP - General Internal Medicine 10/17/20 Shivam Benedict MD [address] [place] [address] Consulting Physician Pulmonary Disease 12/27/21 Radha Crews APRN, INSURANCE AUDITOR [address] [place] [address] Nurse Practitioner Advanced Practice Nurse 01/04/22 Sacha Penn MD [address] [place] [address] Consulting Physician Neurology 07/25/23 documented as of this encounter
--- OUTSIDE RECORDS SUMMARY | 2024-12-09 18:00 | XMS_ITS | Encounter Summary ---
Author Organization [facility] Address [address] [place] [address] Phone Care Team Providers Care Arcade Attendant Name Role Phone Juni Hays MD Primary Care Provider [phone] Shivam Benedict MD Unavailable Radha Crews APRN, [facility] Unavailable +- [phone] Sacha Penn MD Unavailable [phone] Encounter Details Date Type Department Care Team (Late st Contact Info) Description 01/31/2023 Nursing Facility [facility] [address] [place] [address] Varghese Gleason, [facility] [address] [place], [place] [id number] Social History Tobacco Use Types Packs/Day Years [...] Gleason, RUDY - 01/31/2023 9:19 AM CDT [facility] DISCHARGE SUMMARY Name: Blossom De León Age: [...] COURSE: Blossom De León was admitted to assisted facility for acute care rehabilitation. Patient was hospitalized at [facility] from 08/16/2022 through 09/02/2022 for unstable burst fracture of the 4th lumbar vertebrae along with lumbar stenosis and neurogenic claudication which was treated with extensive lumbar surgery. Apparently after leaving the hospital she developed COVID-19 which made her weakness worse, did spend some time at [facility] prior to transferring to this facility on 11/05/2022. While at the rehabilitation facility, the patient received assisted care and physical therapy rehabilitation. She did [...] have spent time coordinating care for this assisted facility discharge: Greater than 30 minutes spent in coordinating care This note was dictated using M*Jirafe fluency dictation system and there may be errors in labor specialist. Despite proof reading the note, there may be mistakes and I apologize for those. Signed: Varghese Gleason, PAC, 01/31/2023, 9:20 AM CDT documented in this encounter Plan of Treatment Not on file documented as of this encounter Visit Diagnoses Not on filedocumented in this encounter Care Teams Arcade Attendant Relationship Specialty Start Date End Date Juni Hays MD PCP - General Internal Medicine 10/17/20 Shivam Benedict MD [address] [place] [address] Consulting Physician Pulmonary Disease 12/27/21 Radha Crews APRN, TITLE CLERK AUTOMOBILE [address] [place] [address] Nurse Practitioner Advanced Practice Nurse 01/04/22 Sacha Penn MD [address] [place] [address] Consulting Physician Neurology 07/25/23 documented as of this encounter
--- OUTSIDE RECORDS SUMMARY | 2024-12-09 18:00 | XMS_ITS | Encounter Summary ---
Author Organization [facility] Address [address] [place] [address] Phone Care Team Providers Care Mechanical Engineering Advisor Name Role Phone Juni Hays MD Primary Care Provider [phone] Shivam Benedict MD Unavailable Radha Crews APRN, [facility] Unavailable +- [phone] Sacha Penn MD Unavailable [phone] Encounter Details Date Type Department Care Team (Late st Contact Info) Description 11/22/2022 Nursing Facility [facility] [address] [place] [address] Varghese Gleason, [facility] [address] [place], [place] [id number] Social History Tobacco Use Types Packs/Day Years [...] Coronavirus/COVID-19? No / Unsure 11/22/2022 3:36 PM DIRECTOR APPAREL documented as of this encounter Progress Notes * Varghese Gleason, PAC - 11/22/2022 3:38 PM CST [facility] PROGRESS NOTE Blossom De León is a 57 y.o. female at [facility] for rehabilitation. Patient was hospitalized at [facility] from 08/16/2022 through 09/02/2022 for unstable burst fracture of the 4th lumbar vertebrae along with lumbar stenosis and neurogenic claudication which was treated with extensive lumbar surgery. Apparently after leaving the hospital she developed COVID-19 which made her weakness worse, did spend some time at [facility] prior to transferring to this facility [...] PROXIMAL HUMERUS; Surgeon: Prosper Tolbert MD; Location: [facility]; Service: Orthopaedic ??? LUMBAR FUSION HAS CAGE IN PLACE ??? THYROID SURGERY 10/1986 [place] Restorationist Review of Systems: A 14 point comprehensive [...] repair Followed by neurosurgery Dr. Richardson at [place] [facility] pain medicines Wearing brace at all times Receiving senior living and physical therapy rehabilitation 11/19: Patient saying [...] system and there may be errors in catalogue and special products manager. Despite proof reading the note, there may be mistakes and I apologize for those. By: Varghese Gleason, PAC, 11/22/2022 3:38 PM DIRECTOR APPAREL CTOR APPAREL documented in this encounter Plan of Treatment Not on file documented as of this encounter Visit Diagnoses Not on filedocumented in this encounter Care Teams Mechanical Engineering Advisor Relationship Specialty Start Date End Date Juni Hays MD PCP - General Internal Medicine 10/17/20 Shivam Benedict MD [address] [place] [address] Consulting Physician Pulmonary Disease 12/27/21 Radha Crews, REPORTER, TABLE CUT OFF SAW OPERATOR [address] [place] [address] Nurse Practitioner Advanced Practice Nurse 01/04/22 Sacha Penn MD [address] [place] [address] Consulting Physician Neurology 07/25/23 documented as of this encounter
--- OUTSIDE RECORDS SUMMARY | 2024-12-09 18:00 | XMS_ITS | Encounter Summary ---
Author Organization [facility] Address [address] [place] [address] Phone Care Team Providers Care Forest Nursery Worker Name Role Phone Juni Hays MD Primary Care Provider [phone] Shivam Benedict MD Unavailable Radha Crews APRN, [employer] Unavailable + [phone] Sacha Penn MD Unavailable +[phone] Reason for Visit * Reason Comments Medication Refill Encounter Details Date Type Department Care Team (Late st Contact Info) Description 12/22/2022 Refill [facility] - Neurology [facility] [address] [place] [address] Sacha Penn MD [address] [place] [address] Medication Refill Social History Tobacco [...] Coronavirus/COVID-19? No / Unsure 11/22/2022 3:36 PM RADIO PRODUCER documented as of this encounter Miscellaneous Notes [...] Dept 11/22/22 Procedure Visit Sacha Penn MD [facility] Neurology [facility] [address] 08/07/22 Procedure Visit Sacha Penn MD [facility] Neurology [facility] [address] 05/01/22 Procedure Visit Sacha Penn MD [facility] Neurology [facility] [address] 03/14/22 Office Visit Radha Crews APRN, CNS [facility] Neurology [facility] [address] 02/08/22 Procedure Visit Sacha Penn MD [facility] Neurology [facility] [address] 01/04/22 Office Visit Radha Crews APRN, CNS [facility] Neurology [facility] Showing recent visits within past 365 days and meeting all other requirements Future Appointments Date Type Provider Dept 02/14/23 Appointment Sacha Penn MD [facility] Neurology [facility] [address] Showing future appointments within next 90 days and meeting all other requirements documented in this encounter Plan of Treatment Not on file documented as of this encounter Visit Diagnoses Not on filedocumented in this encounter Care Teams Forest Nursery Worker Relationship Specialty Start Date End Date Juni Hays MD PCP - General Internal Medicine 10/17/20 Shivam Benedict MD [address] [place] [address] Consulting Physician Pulmonary Disease 12/27/21 Radha Crews, SPORTS NUTRITIONIST, SCRUB TECH [address] [place] [address] Nurse Practitioner Advanced Practice Nurse 01/04/22 Sacha Penn MD [address] [place] [address] Consulting Physician Neurology 07/25/23 documented as of this encounter
--- OUTSIDE RECORDS SUMMARY | 2024-12-09 18:00 | XMS_ITS | Encounter Summary ---
Author Organization [facility] Address [address] [place] [address] Phone Care Team Providers Care Chain Builder Name Role Phone Juni Hays MD Primary Care Provider [phone] Shivam Benedict MD Unavailable Radha Crews APRN, [facility] Unavailable + [phone] Sacha Penn MD Unavailable +[phone] Reason for Visit * Reason Onset Date Comments Medication Refill 01/15/2023 Encounter Details Date Type Department Care Team (Late st Contact Info) Description 01/15/2023 Refill [facility] [address] [place] [address] Varghese Gleason, PAC [address] [place], [place] [address] Medication Refill Social History Tobacco Use Types [...] Cervicalgia documented in this encounter Care Teams Chain Builder Relationship Specialty Start Date End Date Juni Hays MD PCP - General Internal Medicine 10/17/20 Shivam Benedict MD [address] [place] [address] Consulting Physician Pulmonary Disease 12/27/21 Radha Crews, HEAD OF ENGLISH, SPECIAL WARFARE COMBATANT CREWMAN [address] [place] [address] Nurse Practitioner Advanced Practice Nurse 01/04/22 Sacha Penn MD [address] [place] [address] Consulting Physician Neurology 07/25/23 documented as of this encounter
--- OUTSIDE RECORDS SUMMARY | 2024-12-09 18:02 | XMS_ITS | Encounter Summary ---
Author Organization [facility] Address [address] [place] [address] Phone Care Team Providers Care Windsurfing Instructor Name Role Phone Armida Hays MD Primary Care Provider [phone] Shivam Benedict MD Unavailable Radha Crews APRN, [facility] Unavailable + [phone] Sacha Penn MD Unavailable +[phone] Encounter Details Date Type Department Care Team (Late st Contact Info) Description 11/10/2022 Nursing Facility [facility] [address] [place] [address] Nena Peña MD [address] [place] [address] Social History Tobacco Use Types Packs/Day Years [...] Peña MD - 11/10/2022 11:59 PM CST [facility] Assisted History and Physical Chief Complaint: S/p posterior lumbar fusion HPI: Blossom De León is a 56 y.o. female who has transferred to [facility] for post-acute care and rehabilitation. The patient was hospitalized at [facility] from 08/16/2022 through 09/02/2022 for unstable burst fracture of the 4th lumbar vertebrae along with lumbar stenosisand neurogenic claudication which was treated with extensive lumbar surgery. After leaving the hospital she developed COVID-19 which made her weakness worse and she fell at home. She went to [facility] prior to transferring to this facility on 11/05/2022. At the time of this assessment the patient did not have any complaints and was wearing her back brace. She reported normal bowel movements and stated that her pain was well-controlled. History obtained from: patient, medical records Review of Prior External Notes: [facility] records, [facility] records Allergies: is allergic to amitriptyline hcl, imitrex [sumatriptan], macrobid [nitrofurantoin monohyd macro], other, sulfa antibiotics, tizanidine hcl, and tramadol. Past Medical History: She has a past medical history of Anxiety disorder, Arthritis, Cervicalgia, Chronic pain syndrome, Congestive heart failure (CHF) ([facility]), Coronary atherosclerosis, Depression, Diabetes mellitus ([facility]), Fibromyalgia, Fibromyalgia, Hypertension, Lumbago, Migraine headache, Thyroid cancer ([facility]), and Thyroid disorder. Surgical History: has a [...] she has an upcoming appointment with her ic designer gate arrays Dr. Huffman this week so we will [...] fusion. Followed by neurosurgery Dr. Richardson at [place]. Pain is currently well- controlled and the [...] to spinal fusion Advance Care Planning: Aggregate [id number] time, greater than 16 minutes was spent discussing end-of-life care planning with patient/family and/or Power of Rags Laborer. Discussed CPR, Intubation, treatment goals, and Quality of life/Intensity of care. Patient desires CPR-Full Treatment IAmy, acting as a scribe, am personally taking down the notes in the presence of Dr. Nena Peña M.D. Take no action on this note until reviewed and authenticated by the physician. By: AMY HOWARD, 11/10/2022, 2:57 PM TRACK LEADER Primary Care Physician: ARMIDA HAYS MD . I evaluated and examined the patient in the presence of aleksander Howard and discussed the physical findings and clinical assessment with her and reviewed the medical records and notes above and agree with the content and details of the note. K LEADER K LEADER K LEADER documented in this encounter Plan of Treatment Not on file documented as of this encounter Visit Diagnoses Not on filedocumented in this encounter Care Teams Windsurfing Instructor Relationship Specialty Start Date End Date Armida Hays MD PCP - General Internal Medicine 10/17/20 Shivam Benedict MD [address] [place] [address] Consulting Physician Pulmonary Disease 12/27/21 Radha Crews, CREW LEADER GLUING, TEAM SPORTS SALES ASSOCIATE [address] [place] [address] Nurse Practitioner Advanced Practice Nurse 01/04/22 Sacha Penn MD [address] [place] [address] Consulting Physician Neurology 07/25/23 documented as of this encounter
--- OUTSIDE RECORDS SUMMARY | 2024-12-09 18:02 | XMS_ITS | Encounter Summary ---
Author Organization [facility] Address [address] [place] [address] Phone Care Team Providers Care Wire Turning Machine Operator Name Role Phone Juni Hays MD Primary Care Provider [phone] Shivam Benedict MD Unavailable Radha Crews APRN, SOLE CONFORMING MACHINE OPERATOR Unavailable + [phone] Sacha Penn MD Unavailable [phone] Reason for Visit * Reason Comments Medication Refill Encounter Details Date Type Department Care Team (Late st Contact Info) Description 02/21/2022 Refill [facility] - [facility] [address] [place] [address] Sacha Penn MD [address] [place] [address] Medication Refill Social History Tobacco [...] on filedocumented in this encounter Care Teams Wire Turning Machine Operator Relationship Specialty Start Date End Date Juni Hays MD PCP - General Internal Medicine 10/17/20 Shivam Benedict MD [address] [place] [address] Consulting Physician Pulmonary Disease 12/27/21 Radha Crews, TURNER MACHINE OPERATOR, SOLE CONFORMING MACHINE OPERATOR [address] [place] [address] Nurse Practitioner Advanced Practice Nurse 01/04/22 Sacha Penn MD [address] [place] [address] Consulting Physician Neurology 07/25/23 documented as of this encounter
--- OUTSIDE RECORDS SUMMARY | 2024-12-09 18:02 | XMS_ITS | Encounter Summary ---
Author Organization [facility] Address [address] [place] [address] Phone Care Team Providers Care Drywall Mechanic Name Role Phone Juni Hays MD Primary Care Provider [phone] Shivam Benedict MD Unavailable Radha Crews APRN, [facility] Unavailable +- [phone] Sacha Penn MD Unavailable [phone] Encounter Details Date Type Department Care Team (Late st Contact Info) Description 11/15/2022 Nursing Facility [facility] [address] [place] [address] Varghese Gleason, [facility] [address] [place], [place] [id number] Social History Tobacco Use Types Packs/Day Years [...] Gleason, PAC - 11/15/2022 12:39 PM CST [facility] PROGRESS NOTE Blossom De León is a 56 y.o. female at [facility] for rehabilitation. Patient was hospitalized at [facility] from 08/16/2022 through 09/02/2022 for unstable burst fracture of the 4th lumbar vertebrae along with lumbar stenosis and neurogenic claudication which was treated with extensive lumbar surgery. Apparently after leaving the hospital she developed COVID-19 which made her weakness worse, did spend some time at [facility] prior to transferring to this facility [...] PROXIMAL HUMERUS; Surgeon: Prosper Tolbert MD; Location: [facility]; Service: Orthopaedic ??? LUMBAR FUSION HAS CAGE IN PLACE ??? THYROID SURGERY 10/1986 [place] [employer] Review of Systems: A 14 point comprehensive [...] repair Followed by neurosurgery Dr. Richardson at [facility] pain medicines Pain well controlled Wearing brace at all times Receiving correction and physical therapy rehabilitation hypokalemia 11/12: Labs [...] this patient. This note was dictated using [employer] fluency dictation system and there may be errors in data scientist. Despite proof reading the note, there may be mistakes and I apologize for those. By: RUDY Miller, 11/15/2022 12:39 PM SENIOR CARE SPECIALIST OR CARE SPECIALIST documented in this encounter Plan of Treatment Not on file documented as of this encounter Visit Diagnoses Not on filedocumented in this encounter Care Teams Drywall Mechanic Relationship Specialty Start Date End Date Juni Hays MD PCP - General Internal Medicine 10/17/20 Shivam Benedict MD [address] [place] [address] Consulting Physician Pulmonary Disease 12/27/21 Radha Crews APRN, TEST DESK TROUBLE LOCATOR [address] [place] [address] Nurse Practitioner Advanced Practice Nurse 01/04/22 Sacha Penn MD [address] [place] [address] Consulting Physician Neurology 07/25/23 documented as of this encounter
--- OUTSIDE RECORDS SUMMARY | 2024-12-09 18:02 | XMS_ITS | Encounter Summary ---
Author Organization [facility] Address [address] [place] [address] Phone Care Team Providers Care Revenue Stamp Cutter Name Role Phone Juni Hays MD Primary Care Provider [phone] Shivam Benedict MD Unavailable Radha Crews APRN, [facility] Unavailable +- [phone] Sacha Penn MD Unavailable [phone] Encounter Details Date Type Department Care Team (Late st Contact Info) Description 11/12/2022 Nursing Facility [facility] [address] [place] [address] Varghese Gleason, [facility] [address] [place], [place] [id number] Social History Tobacco Use Types Packs/Day Years [...] Gleason, PAC - 11/12/2022 1:42 PM CST [facility] PROGRESS NOTE Blossom De León is a 56 y.o. female at [facility] for rehabilitation. Patient was hospitalized at [facility] from 08/16/2022 through 09/02/2022 [...] concerns. She has an appointment with her asp developer this afternoon to review Holter monitor results [...] PROXIMAL HUMERUS; Surgeon: Prosper Tolbert MD; Location: [facility]; Service: Orthopaedic ??? LUMBAR FUSION HAS CAGE IN PLACE ??? THYROID SURGERY 10/1986 [place] Evangel[employer] Review of Systems: A 14 point comprehensive [...] repair Followed by neurosurgery Dr. Richardson at [facility] pain medicines Pain well controlled Wearing brace at all times Receiving long term and physical therapy rehabilitation Diabetes mellitus type 2 Current regimen includes Farxiga, Trulicity, Lantus and sliding scale Humalog and metformin Monitor Accu-Cheks and adjust regimen as necessary Chronic systolic congestive heart failure EF of 35% Continue Coreg, furosemide, Entresto and spironolactone 11/12: Stable has appointment with Cardiology this afternoon Dr. uHffman Hypertension Continue antihypertensive regimen Monitor blood pressures [...] this patient. This note was dictated using [employer] fluency dictation system and there may be errors in lead medical technologist. Despite proof reading the note, there may be mistakes and I apologize for those. By: Varghese Gleason, PAC, 11/12/2022 1:43 PM PRODUCT DEVELOPMENT TECHNICIAN UCT DEVELOPMENT TECHNICIAN documented in this encounter Plan of Treatment Not on file documented as of this encounter Visit Diagnoses Not on filedocumented in this encounter Care Teams Revenue Stamp Cutter Relationship Specialty Start Date End Date Juni Hays MD PCP - General Internal Medicine 10/17/20 Shivam Benedict MD [address] [place] [address] Consulting Physician Pulmonary Disease 12/27/21 Radha Crews APRN, FREEZER WORKER [address] [place] [address] Nurse Practitioner Advanced Practice Nurse 01/04/22 Sacha Penn MD [address] [place] [address] Consulting Physician Neurology 07/25/23 documented as of this encounter
--- OUTSIDE RECORDS SUMMARY | 2024-12-09 18:02 | XMS_ITS | Encounter Summary ---
Author Organization [facility] Address [address] [place] [address] Phone Care Team Providers Care Mushroom Grower Name Role Phone Juni Hays MD Primary Care Provider [phone] Shivam Benedict MD Unavailable Radha Crews APRN, SYSTEM DESIGNER Unavailable + [phone] Sacha Penn MD Unavailable [phone] Reason for Visit * Reason Comments Medication Refill Encounter Details Date Type Department Care Team (Late st Contact Info) Description 07/17/2021 Refill [facility] - Neurology [facility] [address] [place] [id number] Radha Crews APRN, SYSTEM DESIGNER [address] [place] [address] Medication Refill Social History Tobacco Use Types [...] migrainosus documented in this encounter Care Teams Mushroom Grower Relationship Specialty Start Date End Date Juni Hays MD PCP - General Internal Medicine 10/17/20 Shivam Benedict MD [address] [facility] [place] [address] Consulting Physician Pulmonary Disease 12/27/21 Radha Crews APRN, SYSTEM DESIGNER [address] [place] [address] Nurse Practitioner Advanced Practice Nurse 01/04/22 Sacha Penn MD [address] [facility] [place] [place] [address] Consulting Physician Neurology 07/25/23 documented as of this encounter
--- OUTSIDE RECORDS SUMMARY | 2024-12-09 18:02 | XMS_ITS | Encounter Summary ---
Author Organization [facility] Address [address] [place] [address] Phone Care Team Providers Care Automated Logistics Specialist Name Role Phone Juni Hays MD Primary Care Provider [phone] Shivam Benedict MD Unavailable Radha Crews APRN, [facility] Unavailable +- [phone] Sacha Penn MD Unavailable [phone] Encounter Details Date Type Department Care Team (Late st Contact Info) Description 11/19/2022 Nursing Facility [facility] [address] [place] [address] Varghese Gleason, [facility] [address] [place], [place] [id number] Social History Tobacco Use Types Packs/Day Years [...] Coronavirus/COVID-19? No / Unsure 11/22/2022 3:36 PM HAM ROLLING MACHINE OPERATOR documented as of this encounter Progress Notes * Varghese Gleason, PAC - 11/19/2022 1:52 PM CST [facility] PROGRESS NOTE Blossom De León is a 56 y.o. female at [facility] for rehabilitation. Patient was hospitalized at [facility] from 08/16/2022 through 09/02/2022 for unstable burst fracture of the 4th lumbar vertebrae along with lumbar stenosis and neurogenic claudication which was treated with extensive lumbar surgery. Apparently after leaving the hospital she developed COVID-19 which made her weakness worse, did spend some time at [facility] prior to transferring to this facility [...] PROXIMAL HUMERUS; Surgeon: Prosper Tolbert MD; Location: [facility]; Service: Orthopaedic ??? LUMBAR FUSION HAS CAGE IN PLACE ??? THYROID SURGERY 10/1986 [place] [employer] Review of Systems: A 14 point comprehensive [...] medicines Wearing brace at all times Receiving snf and physical therapy rehabilitation 11/19: Patient saying [...] system and there may be errors in cloth calender. Despite proof reading the note, there may be mistakes and I apologize for those. By: Varghese Gleason, PAC, 11/19/2022 1:53 PM HAM ROLLING MACHINE OPERATOR ROLLING MACHINE OPERATOR documented in this encounter Plan of Treatment Not on file documented as of this encounter Visit Diagnoses Not on filedocumented in this encounter Care Teams Automated Logistics Specialist Relationship Specialty Start Date End Date Juni Hays MD PCP - General Internal Medicine 10/17/20 Shivam Benedict MD [address] [place] [address] Consulting Physician Pulmonary Disease 12/27/21 Radha Crews, CENTRAL LAB TECHNICIAN, FRIED CAKE MAKER [address] [place] [address] Nurse Practitioner Advanced Practice Nurse 01/04/22 Sacha Penn MD [address] [place] [address] Consulting Physician Neurology 07/25/23 documented as of this encounter
--- OUTSIDE RECORDS SUMMARY | 2024-12-09 18:02 | XMS_ITS | Clinical Summary ---
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 medication regimen follow up with the stone engraver as they direct. Assessment & Plan (07/30/2024 [...] medical regimen should follow up with the stone engraver as they direct. Assessment & Plan (02/27/2024 2:54 PM CDT): Remains well compensated on current medical regimen should follow up with the stone engraver as they direct. Assessment & Plan (12/01/2023 7:18 PM JOINT TERMINAL ATTACK CONTROLLER): Well compensated on current medical regimen and status post ICD. Follow-up with her stone engraver as they direct Assessment & Plan (11/25/2023 5:15 PM JOINT TERMINAL ATTACK CONTROLLER): - Continue entresto, statin, and lasix - Holding coreg given bradycardia (HR 40s) - starting amlodipine for ongoing hypertension Assessment & Plan (07/03/2023 11:55 AM CDT): Well compensated on her carvedilol, Farxiga, Entresto and should follow-up with stone engraver as they direct Assessment & Plan (05/04/2023 12:07 PM CDT): Continue carvedilol but reduce furosemide to every other day. Restart Entresto. Monitor results and restart spironolactone down the road if able. Call back if blood pressures go too low Assessment & Plan (02/06/2023 5:11 PM CDT): Well compensated on her spironolactone, Entresto, furosemide and should follow up with stone engraver as they direct. Assessment & Plan (10/11/2022 6:47 PM JOINT TERMINAL ATTACK CONTROLLER): Continue current medication regimen follow up with stone engraver as they direct Assessment & Plan (06/12/2022 [...] her ER visit and symptoms with her stone engraver. Likely needs repeat echo and also stress testing for her i ndigestion Assessment & Plan (02/08/2022 12:00 PM CDT): Currently well compensated on her medical regimen. Follow up with stone engraver as they direct. Assessment & Plan (09/25/2021 11:22 AM JOINT TERMINAL ATTACK CONTROLLER): Well compensated on her current medication regimen. She can discuss with her stone engraver whether she may benefit from slight reduction in these medications for possible symptoms of orthostasis/hypotension Assessment & Plan (05/23/2021 9:02 AM CDT): Last echocardiogram showed normal ejection fraction. Continue current medication regimen follow up with stone engraver as they direct. Assessment & Plan (09/26/2020 11:44 AM JOINT TERMINAL ATTACK CONTROLLER): Patient's heart failure symptoms remain limited, estimating her [place] heart Association functional class 1-2. Assessment & Plan (09/03/2020 3:35 PM JOINT TERMINAL ATTACK CONTROLLER): Appears well compensated on current medical regimen and ejection fraction is improving. Follow-up with stone engraver as they direct. Assessment & Plan (07/26/2020 [...] 12/2019 Assessment & Plan (11/29/2024 6:48 AM JOINT TERMINAL ATTACK CONTROLLER): On Metformin, Forteo, and Lantus at home. [...] current medication regimen follow up with her open soaper tender as they direct. Assessment & Plan (02/27/2024 2:54 PM CDT): Denies episodes of hypoglycemia. Continue current medication regimen follow up with her open soaper tender as they direct. Assessment & Plan (01/02/2024 6:27 PM CDT): Reduce Lantus to 30 units and call back if continues to have episodes of hypoglycemia. Continue Humalog 10 units t.i.d. a.c. for now. Follow up with endocrinology as they direct. Assessment & Plan (12/01/2023 7:19 PM JOINT TERMINAL ATTACK CONTROLLER): Continue current medication regimen follow up with her open soaper tender as they direct Assessment & Plan (11/30/2023 3:05 PM JOINT TERMINAL ATTACK CONTROLLER): Patient reports taking Lantus 30u and Lispro 10u tid with meals at home. - basal/bolus, titrate as needed > increased lispro to 12 Assessment & Plan (07/03/2023 11:56 AM CDT): Importance of adhering to a diabetic diet and trying to increase exercise discussed. Continue current medication regimen follow up with her open soaper tender as they direct Assessment & Plan (05/04/2023 12:04 PM CDT): Continue current medication regimen follow up with her open soaper tender as they direct. Assessment & Plan (02/06/2023 5:09 PM CDT): Reduce Lantus to 28 units nightly. Continue sliding scale for now. Follow-up with endocrinology as they direct Assessment & Plan (01/20/2023 6:15 AM CDT): Continue her medication regimen follow-up with her open soaper tender as they direct Assessment & Plan (10/11/2022 6:45 PM JOINT TERMINAL ATTACK CONTROLLER): Restart Humalog 10 units t.i.d. a.c. and [...] discontinue. Assessment & Plan (09/25/2021 11:22 AM JOINT TERMINAL ATTACK CONTROLLER): Patient admits to eating sugary foods. She [...] improvement. Assessment & Plan (12/07/2020 3:48 PM JOINT TERMINAL ATTACK CONTROLLER): Her metformin ER should be 1000 mg take 2 tablets daily not twice daily. Since she is having diarrhea, will reduce to 1000 mg with dinner for 1 or 2 weeks and when symptoms resolve, then increase back to 2 tablets with dinner thereafter. Call back if symptoms not improved. Assessment & Plan (09/26/2020 9:25 AM JOINT TERMINAL ATTACK CONTROLLER): Stop Januvia in favor of farxiga given her elevated A1c and history of congestive heart failure. Potential side effects of Farxiga discussed and call back if any develop. Drink an extra glass of water daily. Continue metformin 2000 mg extended release daily. Check A1c before next visit. Diet exercise weight loss discussed. Assessment & Plan (09/03/2020 3:35 PM JOINT TERMINAL ATTACK CONTROLLER): Increase Levemir to 38 units twice daily. [...] on chronic systolic co ngestive heart failure ([facility]) 11/19/2024 11/19/2024 Palliative care by specialist 08/26/2024 09/16/2024 Dyspnea due to congestive he art failure ([facility]) 08/26/2024 09/16/2024 Acute on chronic systolic heart failure 08/26/2024 09/16/2024 Chronic systolic heart failure ([facility]) 08/23/2024 09/16/2024 Elevated troponin 08/23/2024 09/16/2024 Urinary tract infection with out hematuria, site unspecified 01/05/2024 05/31/2024 Influenza A 10/29/2023 02/27/2024 Respiratory distress 10/29/2023 024 Chest pain 07/15/2023 05/31/2024 Non-ischemic cardiomyopathy ([facility]) 06/13/2023 05/31/2024 Abdominal pain 03/25/2023 [...] 6:16 AM CDT): Nutrition discussed and offered back joiner consultation if needed. 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 Assessment & Plan (09/25/2021 11:23 AM JOINT TERMINAL ATTACK CONTROLLER): Continue current medication regimen follow up with her stone engraver as they direct Assessment & Plan (02/09/2021 9:13 AM CDT): Continue current medication regimen and follow up with stone engraver as they direct. Assessment & Plan (09/26/2020 9:26 AM JOINT TERMINAL ATTACK CONTROLLER): Continue aspirin, atorvastatin, carvedilol, Entresto and follow up with stone engraver as they direct. Assessment & Plan (09/03/2020 3:26 PM JOINT TERMINAL ATTACK CONTROLLER): Continue current medication regimen and follow up with her stone engraver as they direct. At low risk for fall 09/03/2020 022 Assessment & Plan (09/03/2020 3:36 PM JOINT TERMINAL ATTACK CONTROLLER): Timed get up and go test normal. Abnormal TSH 08/31/2020 02/09/2021 Acute respiratory failure wi th hypoxia ([facility]) 06/15/2020 02/09/2021 Pneumonia 06/15/2020 02/09/2021 Hemoglobin A1C greater than 9%, indicating poor diabetic control 02/21/2020 02/09/2021 Type 2 diabetes mellitus wit hout complication, without long-term current use of insulin (CMS/[facility]) 12/28/2019 08/31/2020 Encounters Date Type Department Care Team Description 12/09/2024 Documentation [facility] - [address] [place] [address] Marisela London, RAMYA 12/09/2024 Documentation [facility] Primary Care at [facility] [address], [place] [address] Maura Grissom 12/08/2024 Telephone [place] [place] [employer] at [facility] [address] [place] [phone] Quyen Dorado MA 12/04/2024 3:33 PM JOINT TERMINAL ATTACK CONTROLLER - 12/09/2024 5:01 PM JOINT TERMINAL ATTACK CONTROLLER Hospital Encounter [facility] IMU 1 [place] [address] Franchesca Pierce MD Huynh, Kiet T., MD Davis, MD Sal Pena II, Narine, MD NSTEMI (non-ST elevated myocardial infarction) (CMS/HCC) (HCC) (Primary Dx); Hyperglycemia Discharge Disposition: Discharge to SNF 12/02/2024 Telephone [facility] [place] Oncology [address] Floor 5 [place] [address] Candido Lobato MD 12/02/2024 Anticoagulation Telephone Call [facility] Primary Care at [facility] [address], [place] [address] Sugar Carlisle NP 11/25/2024 Telephone [facility] Primary Care at [facility] [address], [place] [address] Juni Hays MD 11/24/2024 Anticoagulation Telephone Call [facility] Primary Care at [facility] [address], [place] [address] Sugar Carlisle NP 11/18/2024 7:38 AM JOINT TERMINAL ATTACK CONTROLLER Anesthesia Event [facility] Operating Room 1 [place] [address] Elba Medina MD PhD 11/18/2024 7:30 AM JOINT TERMINAL ATTACK CONTROLLER - 11/18/2024 10:10 AM JOINT TERMINAL ATTACK CONTROLLER Surgery [facility] Operating Room 1 [place] [address] Hesham Madsen MD RIGHT BAROSTIM PLACEMENT 11/18/2024 5:40 AM JOINT TERMINAL ATTACK CONTROLLER - 11/30/2024 5:05 PM JOINT TERMINAL ATTACK CONTROLLER Hospital Encounter [facility] 1 [place] [address] Hesham Madsen MD Acute on chronic systolic congestive heart failure (CMS/HCC) (HCC) (Primary Dx); Atrial thrombus; Uncontrolled type 2 diabetes mellitus with hyperglycemia (HCC) Discharge Disposition: Discharge to home or self care 11/17/2024 Telephone [facility] [place] Endocrinology Metabolism and Lipid [facility] 5th [place] [address] [place] [phone] Tabatha Berger RN 11/16/2024 Telephone [facility] [place] Surgery [address] [place] [address] Medical Office Building 1 [address] [address] Mell Jalloh RMA Surgery Confirmation 11/16/2024 Anticoagulation Telephone Call [facility] Primary Care at [facility] [address] [place] [phone] Sugar Carlisle NP 11/12/2024 Orders Only [facility] [place] [facility] [address] 5 [place] [address] Candido Lobato MD Neuroendocrine cancer (HCC) (Primary Dx); Secondary neuroendocrine tumors (HCC) 11/11/2024 Telephone [facility] [place] Surgery [address] [facility] Medical Office Building 1 [address] [address] Mell Jalloh RMA Surgery Confirmation 11/08/2024 1:44 AM JOINT TERMINAL ATTACK CONTROLLER - 11/17/2024 4:19 PM JOINT TERMINAL ATTACK CONTROLLER Hospital Encounter [facility] IMU 1 [place] [address] Sanjeev Gonzales MD Singh, Supriya, MD Sargsyan, Narine, MD Chest pain, unspecified type (Primary Dx); NSTEMI (non-ST elevated myocardial infarction) (CMS/HCC) (HCC) Discharge Disposition: Discharge to SNF 11/07/2024 Ancillary Procedure [facility] [employer] 11/07/2024 Orders Only [facility] Health Information Management [address] [place] [address] Scanning, Provider 11/05/2024 10:40 AM JOINT TERMINAL ATTACK CONTROLLER Office Visit [facility] [place] Endocrinology Metabolism and Lipid [address] [place] [address] [place] [phone] Coy Patel MD Uncontrolled type 2 diabetes mellitus with hyperglycemia (HCC) (Primary Dx); Osteoporosis with current pathological fracture, unspecified osteoporosis type, sequela; Postmenopausal osteoporosis; At high risk for fracture; Hypothyroidism, unspecified type; Insulin long-term use (CMS/HCC) (HCC) [Z79.4] 11/05/2024 Anticoagulation Telephone Call [facility] Medical [facility] Primary Care at [address] [place] [phone] Sugar Carlisle NP 11/04/2024 Orders Only [facility] Health Information Management [address] [place] [address] Scanning, Provider 11/04/2024 Telephone [facility] Primary Care at [address] [place] [phone] Juni Hays MD Test Results 11/01/2024 Telephone [employer] [place] [employer] at [address] [place] [phone] LisCerrillos, MA 10/29/2024 Documentation [facility] Primary Care at [address] [place] [phone] Maura Grissom 10/29/2024 Telephone [facility] Primary Care at [address] [place] [phone] Juni Hays MD Medical Question/Miscellaneo us 10/28/2024 Anticoagulation Telephone Call [facility] Primary Care at [address] [place] [phone] Sugar Carlisle NP 10/27/2024 8:10 AM JOINT TERMINAL ATTACK CONTROLLER - 10/27/2024 11:59 PM JOINT TERMINAL ATTACK CONTROLLER Hospital Encounter [facility] Radiology 1 [place] [address] Encounter for imaging to screen for metal prior to magnetic resonance imaging (MRI) Discharge Disposition: Discharge to home or self care 10/27/2024 8:10 AM JOINT TERMINAL ATTACK CONTROLLER - 10/27/2024 11:59 PM JOINT TERMINAL ATTACK CONTROLLER Hospital Encounter [facility] Radiology 1 [place] [address] Candido Lobato MD Neuroendocrine cancer (HCC); Secondary neuroendocrine tumors (HCC) Discharge Disposition: Discharge to home or self care 10/27/2024 Documentation Cardiology Sue Quinn NP 10/25/2024 3:00 PM JOINT TERMINAL ATTACK CONTROLLER Office Visit [facility] [place] Surgery [address] [facility] Medical Office Building 1 [address] [phone] Hesham Madsen MD Nonocclusive coronary atherosclerosis of knik coronary artery; Dilated cardiomyopathy (CMS/HCC) (HCC); Paroxysmal atrial fibrillation (CMS/HCC) (HCC); Elevated brain natriuretic peptide (BNP) level 10/25/2024 2:00 PM JOINT TERMINAL ATTACK CONTROLLER - 10/25/2024 11:59 PM JOINT TERMINAL ATTACK CONTROLLER Hospital Encounter [facility] Vascular Lab [address] [place] [address] Encounter for other preprocedural examination Discharge Disposition: Discharge to home or self care 10/25/2024 Anticoagulation Telephone Call [facility] Primary Care at [address] [place] [phone] Sugar Carlisle NP 10/25/2024 Telephone [facility] Medical [facility] Primary Care at [address] [place] [phone] Sugar Carlisle NP 10/22/2024 Orders Only [facility] Health Information Management [address] [place] [address] Scanning, Provider 10/21/2024 Orders Only [facility] Medical [facility] Primary Care at [address], [place] [phone] Juni Hays MD Anemia, unspecified type (Primary Dx) 10/20/2024 3:00 PM JOINT TERMINAL ATTACK CONTROLLER Ancillary Procedure [employer] [place] [employer] [address] [facility] [address] [place] [address] ICD (implantable cardioverter-defibri llator) in place; Dilated cardiomyopathy (CMS/HCC) (HCC); Paroxysmal A-fib (CMS/HCC) (HCC) 10/19/2024 Telephone [place] [place] [employer] at [address] [place] [phone] Lis [place], MA 10/19/2024 Telephone [facility] Primary Care at [address] [place] [phone] Juni Hays MD Medical Question/Miscellaneo us 10/15/2024 Telephone [facility] Primary Care at [address] [place] [phone] Juni Hays MD Medical Question/Miscellaneo us 10/15/2024 Anticoagulation Telephone Call [facility] Primary Care at [address] [place] [phone] Sugar Carlisle NP 10/08/2024 Orders Only [facility] [place] Surgery [address] [facility] Medical Office Building [address] [address] Hesham Madsen MD Encounter for other preprocedural examination (Primary Dx) 10/08/2024 Telephone [facility] Medical [facility] Primary Care at [address], [place] [address] Juni Hays MD Test Results 10/08/2024 Anticoagulation Telephone Call [facility] Primary Care at [address], [place] [address] Sugar Carlisle, ABDON 10/07/2024 Telephone [facility] Primary Care at [address], [place] [address] Juni Hays MD 10/04/2024 Telephone [employer] [place] [employer] at [address] [address] Rajan Begum MD 10/01/2024 Telephone [facility] Medical [facility] Primary Care at [address], [place] [address] Juni Hays MD Medical Question/Miscellaneo us 10/01/2024 Anticoagulation Telephone Call [facility] Medical [facility] Primary Care at [address] [place] [phone] Raisa Farnsworth PA 10/01/2024 Anticoagulation Telephone Call [facility] Medical [facility] Primary Care at [address], [place] [address] Sugar Carlisle, ABDON 10/01/2024 Telephone [facility] Medical [facility] Primary Care at [address] [place] [address] Juni Hays MD 09/30/2024 10:30 AM JOINT TERMINAL ATTACK CONTROLLER Office Visit [place] [employer] at [address] [address] Rajan Begum MD Dilated cardiomyopathy (CMS/HCC) (HCC) (Primary Dx); Paroxysmal atrial fibrillation (CMS/HCC) (HCC) 09/30/2024 Orders Only [place] [place] [employer] at [address] [place] [phone] Rajan Begum MD Nonocclusive coronary atherosclerosis of knik coronary artery (Primary Dx); Dilated cardiomyopathy (CMS/HCC) (HCC); Paroxysmal atrial fibrillation (CMS/HCC) (HCC); Drug-induced hypotension; Elevated brain natriuretic peptide (BNP) level 09/30/2024 Telephone [facility] [address] [facility] [address] [place] [phone] Regino Hansen MD 09/23/2024 Anticoagulation Telephone Call [facility] Medical Group Primary Care at [address] [place] [phone] Sugar Carlisle NP 09/23/2024 Telephone [facility] Medical [facility] Primary Care at [address] [place] [phone] Juni Hays MD Test Results 09/22/2024 Orders Only [facility] Medical [facility] Primary Care at [address] [place] [phone] Juni Hays MD Dysuria (Primary Dx) 09/22/2024 Telephone [facility] Medical [facility] Primary Care at [address] [place] [phone] Juni Hays MD Additional Services Or Orders 09/17/2024 Orders Only [facility] [place] Oncology [address] [place] [address] Candido Lobato MD Neuroendocrine cancer (HCC) (Primary Dx) 09/16/2024 3:00 PM JOINT TERMINAL ATTACK CONTROLLER Telemedicine [facility] Medical [facility] Primary Care at [address] [place] [phone] Juni Hays MD Chronic combined systolic and diastolic congestive heart failure (CMS/HCC) (HCC) (Primary Dx); Essential hypertension; Paroxysmal atrial fibrillation (CMS/HCC) (HCC); Weakness generalized; Atrial thrombus 09/16/2024 Telephone [facility] [place] [facility] [address] [place] [address] 5 [place] [address] Candido Lobato MD 09/16/2024 Telephone [facility] Primary Care at [facility] [address], [place] [address] Juni Hays MD Medical Question/Miscellaneo us 09/08/2024 Telephone [facility] [place] [facility] [address] [place] [address] 5 [place] [address] Candido Lobato MD 09/08/2024 Orders Only [facility] [place] [facility] [address] [place] [address] 5 [place] [address] Candido Lobato MD from Last 3 Months Immunizations Immunization Administration [...] Diabetes (HCC) Hypothyroidism BI (obstructive sleep apnea) es CPAP at home CHF (congestive heart failure) (CMS/HCC) (HCC) Coronary artery disease Systolic heart failure (CMS/HCC) (HCC) Hyperlipidemia Type 2 diabetes mellitus (HCC) Restless leg syndrome GERD (gastroesophageal reflux disease) Chronic constipation Chronic diarrhea Arthritis Leg pain, bilateral Anemia Anxiety Gastric reflux Motion sickness Irritable bowel syndrome Liver cancer (HCC) Family History Medical History Relation Name Comments COPD Father Delivsleann FaganKenyon Cancer Father Delvis Kenyon Emphysema Father Delvis Kenyon Heart disease Father Delvis Faganland Hyperlipidemia Father Delvis Faganland Hypertension Father Delvis Kenyon Diabetes Maternal Grandmother Ev cookie Jha Heart disease Maternal Grandmother Ev cookie Jha Breast cancer Mother Patricia Faganland Cancer Mother Patricia Faganland Hypertension Mother Patricia Kenyon Macular degeneration Mother Patricia Kenyon Stroke Mother Patricia Kenyon Breast cancer Mother's Sister 1 Eleanor Fagan Cancer Mother's Sister 1 Eleanor Fagan Colon cancer Mother's Sister 1 Eleanor Fagan Cancer Mother's Sister 2 Breana Jha Ovarian [...] Patricia Kenyon Alive Mother's Sister 1 Eleanor Fagan Mother's Sister 2 Breana Jha Other 1 Other 2 Other 3 Paternal Grandmother Isabelle Kenyon Social History Tobacco Use Types Packs/Day Years Used Date Smoking Tobacco: Former Cigarettes 1 5 1 1987 Smokeless Tobacco: Never Tobacco Cessation:Counseling Given: Not Answered Alcohol Use Standard Drinks/Week Comments No 0 (1 standard drink = 0.6 oz pur e alcohol) [facility] Utilities Answer Date Recorded In the past 12 months has [employer] gas, oil, or water [employer] threatened to shut off services in your home? No 12/06/2024 Social Connection and Isolat ion Panel [NHANES] Answer Date Recorded In a typical week, how many times do you talk on the phone with family, friends, or neighbors? More than three times a week 12/06/2024 How often do you get togethe r with friends or relatives? More than three times a week 12/06/2024 How often do you attend chur or uatsdin services? More than 4 times per year 12/06/2024 Do you belong to any clubs o r organizations such as hindu groups, unions, fraternal or athletic groups, or school groups? No 12/06/2024 How often do you attend meet ings of the clubs or organizations you belong to? Never 12/06/2024 Are you , , di vorced, , never , or living with a partner? 12/06/2024 AUDIT-C Answer Date Recorded Q1: How often [...] care, and heating? Not hard at all 12/06/2024 PHQ-2 Answer Date Recorded PHQ-2 Total Score (If total score is 3 or more points, staff should administer the PHQ-9) 1 11/22/2024 Hunger Vital Sign Answer Date Recorded Within the past 12 months, y ou worried that your food would run out before you got the money to buy more. Never true 12/06/19 25 Within the past 12 months, t he food you bought just didn't last and you didn't have money to get more. Never true 12/06/2024 PRAPARE - Transportation Answer Date Re corded In the past 12 months, has l ack of transportation kept you from medical appointments or from getting medications? No 11/14 In the past 12 months, has l ack of transportation kept you from meetings, work, or from getting things needed for daily living? No 12/06/2024 Housing Stability Vital Sign Answer [place] e [...] place to sleep or slept in a prison (including now)? No 01/06/2024 Housing Stability Vital Sign Answer [place] e Recorded In the last 12 months, was t here a time when you were not able to pay the mortgage or rent on time? No 12/06/2024 In the past 12 months, how m any times have you moved where you were living? 0 12/06/2024 At any time in the past 12 m [facility] [place] were you homeless or living in a prison (including now)? No 12/06/2024 Personal Safety Answer Date Recorded Have you ever been in or are you currently in a harmful physical or emotional relationship or is someone making you feel afraid or unsafe? Denies 12/04/2024 Education Answer Date Recorded What is the highest level of school you have completed or the highest degree you have received? Some college, no degree 03/25/2023 Comments No Sex and Gender Information Value Date Recorded Sex Assigned at Not on file Legal Sex Female 2:31 PM JOINT TERMIN[employer] Gender Identity Not on file Sexual Orientation [...] Sign Reading Time Taken Comments Blood Pressure 104/90 12/09/2024 11:33 AM JOINT TERMINAL ATTACK CONTROLLER Pulse 99 12/09/2024 12:00 PM JOINT TERMINAL ATT[employer] CONTROLLER Temperature 36.7 C (98.1 F) 12/09/2024 11:33 AM JOINT TERMINAL ATTACK CONTROLLER Respiratory Rate 18 12/09/2024 11:3 3 AM JOINT TERMINAL ATTACK CONTROLLER Oxygen Saturation 100% 12/09/2024 11: 33 AM JOINT TERMINAL ATTACK CONTROLLER Inhaled Oxygen Concentration - - Weight 59.3 kg (130 lb 11.7 oz) 12/09/2024 5:44 AM JOINT TERMINAL ATTACK CONTROLLER Height 160 cm (5' 3 ) 12/04/2024 3:00 PM JOINT TERMINAL ATTACK CONTROLLER Body Mass Index 23.16 12/04/2024 3:00 PM JOINT TERMINAL ATT[employer] CONTROLLER Plan of Treatment Health Maintenance Due Date [...] 08/22/2024, 08/22/2024, Additional history exists Lipid Panel 12/05/2025 12/05/2024, 10/14, 06/07/2024, Additional history exists eGFR 12/08/2025 12/08/2024, 11/14, 12/06/2024, Additional history exists Colon Cancer Screening-Colonoscopy 02/05/2027 [...] take, when to call CM or provider. [facility] Chronic Pain Care Plan Chronic Care [...] stairs Contact your local community or senior duck for information on exercise, fall prevention programs, or options for improving home safety. Medical Devices Implanted Type Area Food Writer Device Identifier Shelf Expiration Date Model / Serial / Lot Cvrx Inc [place] 40cm 1036 [id number] - [id number] - [id number] Implanted:Qty: 1 on 11/18/2024 by Hesham Madsen MD at [facility] Lead Right: Chest Cvrx Inc 1036 01/20/2025 [id number] / [id number] / [id number] Description:Part of a bundle d Kit. Marked NON chargeable. This is a kit the goes with item [id number] that is documented on the case Biosyntech Angio-Seal Evolution 6fr Vascular Closure [id number] - [id number] Implanted:Qty: 1 on 07/02/2022 by Alfred Morales MD at [facility] Biosyntech 09/11/2022 [id number] / / [id number] Depuy Synthes Spine Expedium 6mm 45mm 1 Innie Polyaxial Spine Screw Bone Titanium [id number] - [id number] Implanted:Qty: 2 on 08/26/2022 by Gunnar Richardson MD at [facility] N/A: Spine Lumbar Depuy Synthes Spine [id number] / / Depuy Synthes Spine Expedium 6.5mm 45mm Polyaxial Spine Screw Bone Titanium 5.5mm Zechariah [id number] - [id number] Implanted:Qty: 3 on 08/26/2022 by Gunnar Richardson MD at [facility] N/A: Spine Lumbar Depuy Synthes Spine [id number] / / Depuy Synthes Spine Expedium 6.5mm 40mm Polyaxial Spine Screw Bone Titanium 5.5mm Zechariah [id number] - [id number] Implanted:Qty: 1 on 08/26/2022 by Gunnar Richardson MD at [facility] N/A: Spine Lumbar Depuy Synthes Spine [id number] / / Depuy Synthes Spine Expedium 7mm 35mm 1 Innie Polyaxial Spine Screw Bone Titanium [id number] - [id number] Implanted:Qty: 1 on 08/26/2022 by Gunnar Richardson MD at [facility] N/A: Spine Lumbar Depuy Synthes Spine [id number] / / Depuy Synthes Spine Expedium 7mm 35mm 1 Innie Polyaxial Spine Screw Bone Titanium [id number] - [id number] Implanted:Qty: 1 on 08/26/2022 by Gunnar Richardson MD at [facility] N/A: Spine Lumbar Depuy Synthes Spine [id number] / / Depuy Synthes Spine Screw Bone Viper Titanium L35 Mm Od7 Mm Spine Pedicle Cortical Fix Angle Polyaxial Cannulated Fenestrate Nonsterile Mis 5.5 Mm Zechariah [id number] - [id number] Implanted:Qty: 1 on 08/26/2022 by Gunnar Richardson MD at [facility] N/A: Spine Lumbar Depuy Synthes Spine [id number] / / Depuy Synthes Spine Screw Spinal Pedicle Polyaxial Full Thread Solid Expedium Viper Plus T27 [id number] Titanium [id number] - [id number] Implanted:Qty: 1 on 08/26/2022 by Gunnar Richardson MD at [facility] N/A: Spine Lumbar Depuy Synthes Spine [id number] / / Depuy Synthes Spine Expedium 1 Inner Monoaxial Spine Screw Set Titanium [id number] - [id number] Implanted:Qty: 18 on 08/26/2022 by Gunnar Richardson MD at [facility] N/A: Spine Lumbar Depuy Synthes Spine [id number] / / Depuy Synthes Spine [place] 5.5mm 40mm Transverse Body Spine Connector Zechariah Titanium [id number] - [id number] Implanted:Qty: 1 on 08/26/2022 by Gunnar Richardson MD at [facility] N/A: Spine Lumbar Depuy Synthes Spine [id number] / / Depuy Synthes Spine Expedium 5.5mm 480mm Zechariah Spinal Titanium Nonsterile [id number] - [id number] Implanted:Qty: 2 on 08/26/2022 by Gunnar Richardson MD at [facility] N/A: Spine Lumbar Depuy Synthes Spine [id number] / / Si-Bone Kit Spinal Sacroiliac Fusion Ifuse [place] 10.5x80mm [id number] - [id number] Implanted:Qty: 1 on 08/26/2022 by Gunnar Richardson MD at [facility] N/A: Spine Lumbar Si-Bone [id number] 06/26/2027 [id number] / / [id number] Depuy Synthes Spine Expedium 6.5mm 30mm Polyaxial Spine Screw Bone Titanium 5.5mm Zechariah [id number] - [id number] Implanted:Qty: 1 on 08/26/2022 by Gunnar Richardson MD at [facility] N/A: Spine Lumbar Depuy Synthes Spine [id number] / / Medtronic Inc Infuse 18mm Sponge [id number] - [id number] Implanted:Qty: 1 on 08/26/2022 by Gunnar Richardson MD at [facility] N/A: Spine Lumbar Medtronic Inc [id number] 09/11/2023 [id number] / / [id number] Medtronic Inc Infuse 18mm Sponge [id number] - [id number] Implanted:Qty: 1 on 08/26/2022 by Gunnar Richardson MD at [facility] N/A: Spine Lumbar Medtronic Inc [id number] 09/11/2023 [id number] / / [id number] Allosource Crushed Chip Frozen Graft 90ml Bone Cancellous [id number] - [id number] Implanted:Qty: 1 on 08/26/2022 by Gunnar Richardson MD at [facility] N/A: Spine Lumbar Allosource 04/16/2027 [id number] / / [id number] Allosource Crushed Chip Frozen Graft 30ml Bone Cancellous [id number] - [id number] Implanted:Qty: 1 on 08/26/2022 by Gunnar Richardson MD at [facility] N/A: Spine Lumbar Allosource 06/15/2027 [id number] / / [id number] Humans[employer] Technology Putty Bone 1-2mm Granules 10cc Magnet 703-038-Us - [id number] Implanted:Qty: 1 on 08/26/2022 by Gunnar Richardson MD at [facility] N/A: Spine Lumbar [facility] Age [facility] [id number] 10/13/2024 [id number] / / [id number] Depuy Synthes Spine [place] Expedium 2 Spine Wire Fixation Cocr Titanium [id number] - [id number] Implanted:Qty: 2 on 08/26/2022 by Gunnar Richardson MD at [facility] N/A: Spine Lumbar Depuy Synthes Spine [id number] / / Depuy Synthes Spine Expedium 6mm 40mm 1 Innie Polyaxial Spine Screw Bone Titanium [id number] - [id number] Implanted:Qty: 6 on 08/26/2022 by Gunnar Richardson MD at [facility] N/A: Spine Lumbar Depuy Synthes Spine [id number] / / Biotronik Inc Lead Defibrillator Plexa Promri L65cm L15cm Cardiac Df4 Sterile Latex Free Disposable S Dx [id number] - [id number] - [id number] Implanted:Qty: 1 on 07/15/2023 by Rajan Begum MD at [facility] Left: Chest Biotronik Inc 05/12/2025 [id number] / [id number] / Biotronik Inc Defibrillator Cardiac Acticor 7 Vr-T Dx 217017 - [id number] - [id number] Implanted:Qty: 1 on 07/15/2023 by Rajan Begum MD at [facility] Left: Chest Biotronik Inc 04/11/2025 [id number] / [id number] / Medtronic Inc Tyrx 3.35x3in Large Envelope Absorbable Polyarylate Minocycline [id number] - [id number] Implanted:Qty: 1 on 07/15/2023 by Rajan eBgum MD at [facility] Left: Chest Medtronic Inc 02/13/2024 [id number] / / [id number] [employer]/Rich[employer]/Orth o Screw Bone Cannulated St Partial Thread 6.5x75mm Ss [id number] - [id number] Implanted:Qty: 1 on 06/09/2024 by Jaspreet Greer MD at [facility] Right: Hip [employer]hew[employer]Rich[employer]/ Ortho [id number] / / Monte [employer] Nephew/Richco/Orth o 8mm 90mm 24mm Cannulated Long Bone Small Bone Screw Bone [id number] - [id number] Implanted:Qty: 1 on 06/09/2024 by Jaspreet Greer MD at [facility] Right: Hip [employer]hew/Richco/ Ortho [id number] / / Monte & Nephew/Richco/Orth o 8mm 85mm 22mm Cannulated Long Bone Small Bone Screw Bone [id number] - [id number] Implanted:Qty: 1 on 06/09/2024 by Jaspreet Greer MD at [facility] Right: Hip [employer]hew/Richco/ Ortho [id number] / / Cvrx Inc System Generator Neurostimulator Deep Brain Stim Permanent Lead Barostim 959922-687 - [id number] - [id number] Implanted:Qty: 1 on 11/18/2024 by Hesham Madsen MD at [facility] Right: Chest Cvrx Inc 12/09/2024 [id number] / [id number] / Description:Barostim generat or with leads. P/q-[id number] model 2104 Cvrx Inc Generator Neurostimulator Deep Brain Stim Permanent Lead No Hardware Barostim 472702-565 - [id number] - [id number] Implanted:Qty: 1 on 11/18/2024 by Hesham Madsen MD at [facility] Right: Chest Cvrx Inc 12/09/2024 300844-497 / [id number] / Description:Marked NON charg eable. This is a kit the goes with item [id number] that is documented on the case Procedures Procedure Name Priority Date/Time Associated Diagnosis Comments POCT GLUCOSE DEVICE Routine 12/09/2024 3 :12 PM JOINT TERMINAL ATTACK CONTROLLER POCT GLUCOSE DEVICE Routine 12/09/2024 11:37 AM JOINT TERMINAL ATTACK CONTROLLER POCT GLUCOSE DEVICE Routine 12/09/2024 7 :55 AM JOINT TERMINAL ATTACK CONTROLLER POCT GLUCOSE DEVICE Routine 12/09/2024 4 :54 AM JOINT TERMINAL ATTACK CONTROLLER PROTIME-INR Routine 12/09/2024 3:07 AM JOINT TERMINAL ATTACK CONTROLLER POCT GLUCOSE DEVICE Routine 12/09/2024 2 :15 AM JOINT TERMINAL ATTACK CONTROLLER POCT GLUCOSE DEVICE Routine 12/08/2024 8 :20 PM JOINT TERMINAL ATTACK CONTROLLER POCT GLUCOSE DEVICE Routine 12/08/2024 5 :13 PM JOINT TERMINAL ATTACK CONTROLLER POCT GLUCOSE DEVICE Routine 12/08/2024 12:23 PM JOINT TERMINAL ATTACK CONTROLLER POCT GLUCOSE DEVICE Routine 12/08/2024 8 :14 AM JOINT TERMINAL ATTACK CONTROLLER DIFFERENTIAL AUTO Routine 12/08/2024 5:2 9 AM JOINT TERMINAL ATTACK CONTROLLER CBC WITH AUTO DIFFERENTIAL Routine 12/08/2024 5:29 AM JOINT TERMINAL ATTACK CONTROLLER EGFR Routine 12/08/2024 3:15 AM JOINT TERMINAL ATTACK CONTROLLER BETA-HYDROXYBUTYRATE Routine 12/08/2024 3:15 AM JOINT TERMINAL ATTACK CONTROLLER PROTIME-INR Routine 12/08/2024 3:15 AM JOINT TERMINAL ATTACK CONTROLLER MAGNESIUM Routine 12/08/2024 3:15 AM JOINT TERMINAL ATTACK CONTROLLER COMPREHENSIVE METABOLIC PANEL Routine 12/08/2024 3:15 AM JOINT TERMINAL ATTACK CONTROLLER POCT GLUCOSE DEVICE Routine 12/08/2024 2 :05 AM JOINT TERMINAL ATTACK CONTROLLER POCT GLUCOSE DEVICE Routine 12/07/2024 8 :57 PM JOINT TERMINAL ATTACK CONTROLLER POCT GLUCOSE DEVICE Routine 12/07/2024 5 :14 PM JOINT TERMINAL ATTACK CONTROLLER POCT GLUCOSE DEVICE Routine 12/07/2024 11:54 AM JOINT TERMINAL ATTACK CONTROLLER POCT GLUCOSE DEVICE Routine 12/07/2024 7 :21 AM JOINT TERMINAL ATTACK CONTROLLER POCT GLUCOSE DEVICE Routine 12/07/2024 1 :49 AM JOINT TERMINAL ATTACK CONTROLLER EGFR Routine 12/07/2024 12:27 AM JOINT TERMINAL ATTACK CONTROLLER DIFFERENTIAL AUTO Routine 12/07/2024 12:27 AM JOINT TERMINAL ATTACK CONTROLLER PROTIME-INR Routine 12/07/2024 12:27 AM JOINT TERMINAL ATTACK CONTROLLER MAGNESIUM Routine 12/07/2024 12:27 AM JOINT TERMINAL ATTACK CONTROLLER COMPREHENSIVE METABOLIC PANEL Routine 12/07/2024 12:27 AM JOINT TERMINAL ATTACK CONTROLLER CBC WITH AUTO DIFFERENTIAL Routine 12/07/2024 12:27 AM JOINT TERMINAL ATTACK CONTROLLER POCT GLUCOSE DEVICE Routine 12/06/2024 8 :52 PM JOINT TERMINAL ATTACK CONTROLLER POCT GLUCOSE DEVICE Routine 12/06/2024 5 :29 PM JOINT TERMINAL ATTACK CONTROLLER POCT GLUCOSE DEVICE Routine 12/06/2024 11:50 AM JOINT TERMINAL ATTACK CONTROLLER POCT GLUCOSE DEVICE Routine 12/06/2024 7 :49 AM JOINT TERMINAL ATTACK CONTROLLER EGFR Routine 12/06/2024 6:08 AM JOINT TERMINAL ATTACK CONTROLLER DIFFERENTIAL AUTO Routine 12/06/2024 6:0 8 AM JOINT TERMINAL ATTACK CONTROLLER PROTIME-INR Routine 12/06/2024 6:08 AM JOINT TERMINAL ATTACK CONTROLLER MAGNESIUM Routine 12/06/2024 6:08 AM JOINT TERMINAL ATTACK CONTROLLER COMPREHENSIVE METABOLIC PANEL Routine 12/06/2024 6:08 AM JOINT TERMINAL ATTACK CONTROLLER CBC WITH AUTO DIFFERENTIAL Routine 12/06/2024 6:08 AM JOINT TERMINAL ATTACK CONTROLLER POCT GLUCOSE DEVICE Routine 12/06/2024 2 :54 AM JOINT TERMINAL ATTACK CONTROLLER POCT GLUCOSE DEVICE Routine 12/05/2024 8 :38 PM JOINT TERMINAL ATTACK CONTROLLER POCT GLUCOSE DEVICE Routine 12/05/2024 5 :15 PM JOINT TERMINAL ATTACK CONTROLLER POCT GLUCOSE DEVICE Routine 12/05/2024 12:17 PM JOINT TERMINAL ATTACK CONTROLLER POCT GLUCOSE DEVICE Routine 12/05/2024 7 :42 AM JOINT TERMINAL ATTACK CONTROLLER EGFR Routine 12/05/2024 5:47 AM JOINT TERMINAL ATTACK CONTROLLER DIFFERENTIAL AUTO Routine 12/05/2024 5:4 7 AM JOINT TERMINAL ATTACK CONTROLLER MAGNESIUM Routine 12/05/2024 5:47 AM JOINT TERMINAL ATTACK CONTROLLER COMPREHENSIVE METABOLIC PANEL Routine 12/05/2024 5:47 AM JOINT TERMINAL ATTACK CONTROLLER CBC WITH AUTO DIFFERENTIAL Routine 12/05/2024 5:47 AM JOINT TERMINAL ATTACK CONTROLLER APTT Timed 12/05/2024 5:47 AM JOINT TERMINAL ATTACK CONTROLLER LIPID PANEL Routine 12/05/2024 5:47 AM JOINT TERMINAL ATTACK CONTROLLER ECG 12-LEAD Routine 12/05/2024 5:26 AM JOINT TERMINAL ATTACK CONTROLLER POCT GLUCOSE DEVICE Routine 12/05/2024 2 :38 AM JOINT TERMINAL ATTACK CONTROLLER APTT Timed 12/04/2024 11:06 PM JOINT TERMINAL ATTACK CONTROLLER TROPONIN T HIGH-SENSITIVITY 6-HOUR Timed 12/04/2024 10:12 PM JOINT TERMINAL ATTACK CONTROLLER POCT GLUCOSE DEVICE Routine 12/04/2024 9 :00 PM JOINT TERMINAL ATTACK CONTROLLER TROPONIN T HIGH-SENSITIVITY 4-HR Timed 12/04/2024 8:32 PM JOINT TERMINAL ATTACK CONTROLLER TROPONIN T HIGH-SENSITIVITY 2-HOUR Timed 12/04/2024 6:02 PM JOINT TERMINAL ATTACK CONTROLLER EGFR Routine 12/04/2024 4:12 PM JOINT TERMINAL ATTACK CONTROLLER APTT STAT 12/04/2024 4:12 PM JOINT TERMINAL ATTACK CONTROLLER CBC WITHOUT DIFFERENTIAL STAT 12/04/2024 4:12 PM JOINT TERMINAL ATTACK CONTROLLER PROTIME-INR STAT 12/04/2024 4:12 PM JOINT TERMINAL ATTACK CONTROLLER BASIC METABOLIC PANEL Routine 12/04/2024 4:12 PM JOINT TERMINAL ATTACK CONTROLLER TROPONIN T HIGH-SENSITIVITY SERIES (BASELINE, 2HR, 4HR, 6HR) Routine 12/04/2024 4:08 PM JOINT TERMINAL ATTACK CONTROLLER POCT GLUCOSE DEVICE Routine 11/30/2024 11:42 AM JOINT TERMINAL ATTACK CONTROLLER POCT GLUCOSE DEVICE Routine 11/30/2024 7 :37 AM JOINT TERMINAL ATTACK CONTROLLER POCT GLUCOSE DEVICE Routine 11/30/2024 2 :12 AM JOINT TERMINAL ATTACK CONTROLLER EGFR STAT 11/30/2024 12:02 AM JOINT TERMINAL ATTACK CONTROLLER BASIC METABOLIC PANEL STAT 11/30/2024 12:02 AM JOINT TERMINAL ATTACK CONTROLLER POCT GLUCOSE DEVICE Routine 11/29/2024 9 :58 PM JOINT TERMINAL ATTACK CONTROLLER EGFR Routine 11/29/2024 8:56 PM JOINT TERMINAL ATTACK CONTROLLER CRITICAL RESULT CALLBACK CHEMISTRY Routine 11/29/2024 8:56 PM JOINT TERMINAL ATTACK CONTROLLER DIFFERENTIAL AUTO Routine 11/29/2024 8:5 6 PM JOINT TERMINAL ATTACK CONTROLLER PROTIME-INR Routine 11/29/2024 8:56 PM JOINT TERMINAL ATTACK CONTROLLER CBC WITH AUTO DIFFERENTIAL Routine 11/29/2024 8:56 PM JOINT TERMINAL ATTACK CONTROLLER BASIC METABOLIC PANEL Routine 11/29/2024 8:56 PM JOINT TERMINAL ATTACK CONTROLLER POCT GLUCOSE DEVICE Routine 11/29/2024 7 :29 PM JOINT TERMINAL ATTACK CONTROLLER POCT GLUCOSE DEVICE Routine 11/29/2024 5 :12 PM JOINT TERMINAL ATTACK CONTROLLER POCT GLUCOSE DEVICE Routine 11/29/2024 11:17 AM JOINT TERMINAL ATTACK CONTROLLER POCT GLUCOSE DEVICE Routine 11/29/2024 7 :42 AM JOINT TERMINAL ATTACK CONTROLLER POCT GLUCOSE DEVICE Routine 11/29/2024 2 :07 AM JOINT TERMINAL ATTACK CONTROLLER POCT GLUCOSE DEVICE Routine 11/29/2024 12:02 AM JOINT TERMINAL ATTACK CONTROLLER EGFR Routine 11/28/2024 9:54 PM JOINT TERMINAL ATTACK CONTROLLER DIFFERENTIAL AUTO Routine 11/28/2024 9:5 4 PM JOINT TERMINAL ATTACK CONTROLLER PROTIME-INR Routine 11/28/2024 9:54 PM JOINT TERMINAL ATTACK CONTROLLER CBC WITH AUTO DIFFERENTIAL Routine 11/28/2024 9:54 PM JOINT TERMINAL ATTACK CONTROLLER BASIC METABOLIC PANEL Routine 11/28/2024 9:54 PM JOINT TERMINAL ATTACK CONTROLLER POCT GLUCOSE DEVICE Routine 11/28/2024 7 :26 PM JOINT TERMINAL ATTACK CONTROLLER POCT GLUCOSE DEVICE Routine 11/28/2024 6 :16 PM JOINT TERMINAL ATTACK CONTROLLER POCT GLUCOSE DEVICE Routine 11/28/2024 5 :01 PM JOINT TERMINAL ATTACK CONTROLLER POCT GLUCOSE DEVICE Routine 11/28/2024 11:19 AM JOINT TERMINAL ATTACK CONTROLLER POCT GLUCOSE DEVICE Routine 11/28/2024 7 :20 AM JOINT TERMINAL ATTACK CONTROLLER POCT GLUCOSE DEVICE Routine 11/28/2024 2 :02 AM JOINT TERMINAL ATTACK CONTROLLER POCT GLUCOSE DEVICE Routine 11/27/2024 10:58 PM JOINT TERMINAL ATTACK CONTROLLER EGFR Routine 11/27/2024 9:47 PM JOINT TERMINAL ATTACK CONTROLLER DIFFERENTIAL AUTO Routine 11/27/2024 9:4 7 PM JOINT TERMINAL ATTACK CONTROLLER PROTIME-INR Routine 11/27/2024 9:47 PM JOINT TERMINAL ATTACK CONTROLLER CBC WITH AUTO DIFFERENTIAL Routine 11/27/2024 9:47 PM JOINT TERMINAL ATTACK CONTROLLER BASIC METABOLIC PANEL Routine 11/27/2024 9:47 PM JOINT TERMINAL ATTACK CONTROLLER POCT GLUCOSE DEVICE Routine 11/27/2024 8 :31 PM JOINT TERMINAL ATTACK CONTROLLER POCT GLUCOSE DEVICE Routine 11/27/2024 4 :59 PM JOINT TERMINAL ATTACK CONTROLLER POCT GLUCOSE DEVICE Routine 11/27/2024 11:42 AM JOINT TERMINAL ATTACK CONTROLLER POCT GLUCOSE DEVICE Routine 11/27/2024 7 :21 AM JOINT TERMINAL ATTACK CONTROLLER POCT GLUCOSE DEVICE Routine 11/27/2024 4 :10 AM JOINT TERMINAL ATTACK CONTROLLER POCT GLUCOSE DEVICE Routine 11/26/2024 11:38 PM JOINT TERMINAL ATTACK CONTROLLER EGFR Routine 11/26/2024 9:00 PM JOINT TERMINAL ATTACK CONTROLLER DIFFERENTIAL AUTO Routine 11/26/2024 9:0 0 PM JOINT TERMINAL ATTACK CONTROLLER PROTIME-INR Routine 11/26/2024 9:00 PM JOINT TERMINAL ATTACK CONTROLLER CBC WITH AUTO DIFFERENTIAL Routine 11/26/2024 9:00 PM JOINT TERMINAL ATTACK CONTROLLER BASIC METABOLIC PANEL Routine 11/26/2024 9:00 PM JOINT TERMINAL ATTACK CONTROLLER POCT GLUCOSE DEVICE Routine 11/26/2024 8 :11 PM JOINT TERMINAL ATTACK CONTROLLER POCT GLUCOSE DEVICE Routine 11/26/2024 4 :58 PM JOINT TERMINAL ATTACK CONTROLLER POCT GLUCOSE DEVICE Routine 11/26/2024 11:50 AM JOINT TERMINAL ATTACK CONTROLLER POCT GLUCOSE DEVICE Routine 11/26/2024 9 :56 AM JOINT TERMINAL ATTACK CONTROLLER POCT GLUCOSE DEVICE Routine 11/26/2024 8 :08 AM JOINT TERMINAL ATTACK CONTROLLER POCT GLUCOSE DEVICE Routine 11/26/2024 4 :08 AM JOINT TERMINAL ATTACK CONTROLLER POCT GLUCOSE DEVICE Routine 11/26/2024 12:28 AM JOINT TERMINAL ATTACK CONTROLLER URINALYSIS, MICROSCOPIC ONLY Routine 11/26/2024 12:16 AM JOINT TERMINAL ATTACK CONTROLLER URINALYSIS AND REFLEX TO MICROSCOPIC AND CULTURE Routine 11/26/2024 12:16 AM JOINT TERMINAL ATTACK CONTROLLER EGFR Routine 11/26/2024 12:10 AM JOINT TERMINAL ATTACK CONTROLLER DIFFERENTIAL AUTO Routine 11/26/2024 12:10 AM JOINT TERMINAL ATTACK CONTROLLER PROTIME-INR Routine 11/26/2024 12:10 AM JOINT TERMINAL ATTACK CONTROLLER CBC WITH AUTO DIFFERENTIAL Routine 11/26/2024 12:10 AM JOINT TERMINAL ATTACK CONTROLLER BASIC METABOLIC PANEL Routine 11/26/2024 12:10 AM JOINT TERMINAL ATTACK CONTROLLER POCT GLUCOSE DEVICE Routine 11/25/2024 10:40 PM JOINT TERMINAL ATTACK CONTROLLER POCT GLUCOSE DEVICE Routine 11/25/2024 9 :37 PM JOINT TERMINAL ATTACK CONTROLLER POCT GLUCOSE DEVICE Routine 11/25/2024 8 :11 PM JOINT TERMINAL ATTACK CONTROLLER POCT GLUCOSE DEVICE Routine 11/25/2024 5 :09 PM JOINT TERMINAL ATTACK CONTROLLER POCT GLUCOSE DEVICE Routine 11/25/2024 2 :32 PM JOINT TERMINAL ATTACK CONTROLLER POCT GLUCOSE DEVICE Routine 11/25/2024 11:40 AM JOINT TERMINAL ATTACK CONTROLLER XR CHEST 1 VIEW ED Urgent/IP Urgent 11/25/2024 9:35 AM JOINT TERMINAL ATTACK CONTROLLER POCT GLUCOSE DEVICE Routine 11/25/2024 7 :51 AM JOINT TERMINAL ATTACK CONTROLLER EGFR Routine 11/24/2024 10:08 PM JOINT TERMINAL ATTACK CONTROLLER DIFFERENTIAL AUTO Routine 11/24/2024 10:08 PM JOINT TERMINAL ATTACK CONTROLLER PROTIME-INR Routine 11/24/2024 10:08 PM JOINT TERMINAL ATTACK CONTROLLER CBC WITH AUTO DIFFERENTIAL Routine 11/24/2024 10:08 PM JOINT TERMINAL ATTACK CONTROLLER BASIC METABOLIC PANEL Routine 11/24/2024 10:08 PM JOINT TERMINAL ATTACK CONTROLLER POCT GLUCOSE DEVICE Routine 11/24/2024 7 :52 PM JOINT TERMINAL ATTACK CONTROLLER POCT GLUCOSE DEVICE Routine 11/24/2024 5 :06 PM JOINT TERMINAL ATTACK CONTROLLER POCT GLUCOSE DEVICE Routine 11/24/2024 4 :01 PM JOINT TERMINAL ATTACK CONTROLLER POCT GLUCOSE DEVICE Routine 11/24/2024 3 :01 PM JOINT TERMINAL ATTACK CONTROLLER POCT GLUCOSE DEVICE Routine 11/24/2024 1 :57 PM JOINT TERMINAL ATTACK CONTROLLER POCT GLUCOSE DEVICE Routine 11/24/2024 12:16 PM JOINT TERMINAL ATTACK CONTROLLER POCT GLUCOSE DEVICE Routine 11/24/2024 7 :25 AM JOINT TERMINAL ATTACK CONTROLLER EGFR Routine 11/23/2024 10:31 PM JOINT TERMINAL ATTACK CONTROLLER DIFFERENTIAL AUTO Routine 11/23/2024 10:31 PM JOINT TERMINAL ATTACK CONTROLLER PROTIME-INR Routine 11/23/2024 10:31 PM JOINT TERMINAL ATTACK CONTROLLER CBC WITH AUTO DIFFERENTIAL Routine 11/23/2024 10:31 PM JOINT TERMINAL ATTACK CONTROLLER BASIC METABOLIC PANEL Routine 11/23/2024 10:31 PM JOINT TERMINAL ATTACK CONTROLLER POCT GLUCOSE DEVICE Routine 11/23/2024 10:13 PM JOINT TERMINAL ATTACK CONTROLLER POCT GLUCOSE DEVICE Routine 11/23/2024 8 :11 PM JOINT TERMINAL ATTACK CONTROLLER POCT GLUCOSE DEVICE Routine 11/23/2024 6 :23 PM JOINT TERMINAL ATTACK CONTROLLER POCT GLUCOSE DEVICE Routine 11/23/2024 4 :35 PM JOINT TERMINAL ATTACK CONTROLLER POCT GLUCOSE DEVICE Routine 11/23/2024 4 :34 PM JOINT TERMINAL ATTACK CONTROLLER POCT GLUCOSE DEVICE Routine 11/23/2024 12:28 PM JOINT TERMINAL ATTACK CONTROLLER POCT GLUCOSE DEVICE Routine 11/23/2024 8 :07 AM JOINT TERMINAL ATTACK CONTROLLER POCT GLUCOSE DEVICE Routine 11/22/2024 8 :03 PM JOINT TERMINAL ATTACK CONTROLLER DIFFERENTIAL AUTO Routine 11/22/2024 7:0 5 PM JOINT TERMINAL ATTACK CONTROLLER CBC WITH AUTO DIFFERENTIAL Routine 11/22/2024 7:05 PM JOINT TERMINAL ATTACK CONTROLLER BASIC METABOLIC PANEL Timed 11/22/2024 7:04 PM JOINT TERMINAL ATTACK CONTROLLER EGFR Timed 11/22/2024 7:04 PM JOINT TERMINAL ATTACK CONTROLLER APTT Routine 11/22/2024 7:04 PM JOINT TERMINAL ATTACK CONTROLLER TROPONIN I HIGH-SENSITIVITY Timed 11/22/2024 7:04 PM JOINT TERMINAL ATTACK CONTROLLER PHOSPHORUS Timed 11/22/2024 7:04 PM JOINT TERMINAL ATTACK CONTROLLER MAGNESIUM Timed 11/22/2024 7:04 PM JOINT TERMINAL ATTACK CONTROLLER PROTIME-INR Routine 11/22/2024 7:04 PM JOINT TERMINAL ATTACK CONTROLLER POCT GLUCOSE DEVICE Routine 11/22/2024 6 :56 PM JOINT TERMINAL ATTACK CONTROLLER POCT GLUCOSE DEVICE Routine 11/22/2024 5 :27 PM JOINT TERMINAL ATTACK CONTROLLER XR CHEST 1 VIEW ED Urgent/IP Urgent 11/22/2024 3:32 PM JOINT TERMINAL ATTACK CONTROLLER POCT GLUCOSE DEVICE Routine 11/22/2024 2 :42 PM JOINT TERMINAL ATTACK CONTROLLER POCT GLUCOSE DEVICE Routine 11/22/2024 11:57 AM JOINT TERMINAL ATTACK CONTROLLER POCT GLUCOSE DEVICE Routine 11/22/2024 8 :10 AM JOINT TERMINAL ATTACK CONTROLLER APTT STAT 11/22/2024 12:22 AM JOINT TERMINAL ATTACK CONTROLLER CRITICAL RESULT CALLBACK HEMATOLOGY STAT 2024 10:06 PM JOINT TERMINAL ATTACK CONTROLLER EGFR Routine 2024 10:06 PM JOINT TERMINAL ATTACK CONTROLLER DIFFERENTIAL AUTO Routine 2024 10:06 PM JOINT TERMINAL ATTACK CONTROLLER APTT STAT 2024 10:06 PM JOINT TERMINAL ATTACK CONTROLLER PROTIME-INR Routine 2024 10:06 PM JOINT TERMINAL ATTACK CONTROLLER CBC WITH AUTO DIFFERENTIAL Routine 2024 10:06 PM JOINT TERMINAL ATTACK CONTROLLER BASIC METABOLIC PANEL Routine 2024 10:06 PM JOINT TERMINAL ATTACK CONTROLLER POCT GLUCOSE DEVICE Routine 2024 7 :21 PM JOINT TERMINAL ATTACK CONTROLLER POCT GLUCOSE DEVICE Routine 2024 4 :43 PM JOINT TERMINAL ATTACK CONTROLLER POCT GLUCOSE DEVICE Routine 2024 12:22 PM JOINT TERMINAL ATTACK CONTROLLER POCT GLUCOSE DEVICE Routine 2024 8 :06 AM JOINT TERMINAL ATTACK CONTROLLER POCT GLUCOSE DEVICE Routine 2024 3 :35 AM JOINT TERMINAL ATTACK CONTROLLER POCT GLUCOSE DEVICE Routine 2024 12:12 AM JOINT TERMINAL ATTACK CONTROLLER EGFR Routine 11/20/2024 10:13 PM JOINT TERMINAL ATTACK CONTROLLER DIFFERENTIAL AUTO Routine 11/20/2024 10:13 PM JOINT TERMINAL ATTACK CONTROLLER APTT STAT 11/20/2024 10:13 PM JOINT TERMINAL ATTACK CONTROLLER PROTIME-INR Routine 11/20/2024 10:13 PM JOINT TERMINAL ATTACK CONTROLLER CBC WITH AUTO DIFFERENTIAL Routine 11/20/2024 10:13 PM JOINT TERMINAL ATTACK CONTROLLER BASIC METABOLIC PANEL Routine 11/20/2024 10:13 PM JOINT TERMINAL ATTACK CONTROLLER TROPONIN I HIGH-SENSITIVITY 6-HOUR Timed 11/20/2024 10:13 PM JOINT TERMINAL ATTACK CONTROLLER POCT GLUCOSE DEVICE Routine 11/20/2024 8 :01 PM JOINT TERMINAL ATTACK CONTROLLER POCT GLUCOSE DEVICE Routine 11/20/2024 4 :36 PM JOINT TERMINAL ATTACK CONTROLLER APTT STAT 11/20/2024 2:58 PM JOINT TERMINAL ATTACK CONTROLLER POCT GLUCOSE DEVICE Routine 11/20/2024 11:17 AM JOINT TERMINAL ATTACK CONTROLLER PROTIME-INR STAT 11/20/2024 8:28 AM JOINT TERMINAL ATTACK CONTROLLER APTT STAT 11/20/2024 8:28 AM JOINT TERMINAL ATTACK CONTROLLER POCT GLUCOSE DEVICE Routine 11/20/2024 7 :44 AM JOINT TERMINAL ATTACK CONTROLLER CBC WITHOUT DIFFERENTIAL Timed 11/20/2024 2:16 AM JOINT TERMINAL ATTACK CONTROLLER TROPONIN I HIGH-SENSITIVITY 4-HOUR Timed 11/20/2024 2:16 AM JOINT TERMINAL ATTACK CONTROLLER CRITICAL RESULT CALLBACK CARDIO CHEM Timed 11/20/2024 12:24 AM JOINT TERMINAL ATTACK CONTROLLER EGFR Routine 11/20/2024 12:24 AM JOINT TERMINAL ATTACK CONTROLLER TROPONIN I HIGH-SENSITIVITY 2-HOUR Timed 11/20/2024 12:24 AM JOINT TERMINAL ATTACK CONTROLLER APTT STAT 11/20/2024 12:24 AM JOINT TERMINAL ATTACK CONTROLLER BASIC METABOLIC PANEL Routine 11/20/2024 12:24 AM JOINT TERMINAL ATTACK CONTROLLER POCT GLUCOSE DEVICE Routine 11/19/2024 11:01 PM JOINT TERMINAL ATTACK CONTROLLER TROPONIN I HIGH-SENSITIVITY SERIES (BASELINE, 2HR, 4HR, 6HR) Timed 11/19/2024 10:15 PM JOINT TERMINAL ATTACK CONTROLLER ECG 12-LEAD Routine 11/19/2024 10:11 PM JOINT TERMINAL ATTACK CONTROLLER POCT GLUCOSE DEVICE Routine 11/19/2024 7 :20 PM JOINT TERMINAL ATTACK CONTROLLER POCT GLUCOSE DEVICE Routine 11/19/2024 4 :39 PM JOINT TERMINAL ATTACK CONTROLLER APTT STAT 11/19/2024 3:39 PM JOINT TERMINAL ATTACK CONTROLLER POCT GLUCOSE DEVICE Routine 11/19/2024 12:05 PM JOINT TERMINAL ATTACK CONTROLLER POCT GLUCOSE DEVICE Routine 11/19/2024 12:03 PM JOINT TERMINAL ATTACK CONTROLLER HEMOGLOBIN A1C Routine 11/19/2024 8:52 AM JOINT TERMINAL ATTACK CONTROLLER EGFR Routine 11/19/2024 8:52 AM JOINT TERMINAL ATTACK CONTROLLER DIFFERENTIAL AUTO Routine 11/19/2024 8:5 2 AM JOINT TERMINAL ATTACK CONTROLLER APTT STAT 11/19/2024 8:52 AM JOINT TERMINAL ATTACK CONTROLLER PROTIME-INR STAT 11/19/2024 8:52 AM JOINT TERMINAL ATTACK CONTROLLER CBC WITH AUTO DIFFERENTIAL Routine 11/19/2024 8:52 AM JOINT TERMINAL ATTACK CONTROLLER BASIC METABOLIC PANEL Routine 11/19/2024 8:52 AM JOINT TERMINAL ATTACK CONTROLLER POCT GLUCOSE DEVICE Routine 11/19/2024 7 :46 AM JOINT TERMINAL ATTACK CONTROLLER EGFR Routine 11/19/2024 4:37 AM JOINT TERMINAL ATTACK CONTROLLER CBC WITHOUT DIFFERENTIAL Timed 11/19/2024 4:37 AM JOINT TERMINAL ATTACK CONTROLLER BASIC METABOLIC PANEL Routine 11/19/2024 4:37 AM JOINT TERMINAL ATTACK CONTROLLER POCT GLUCOSE DEVICE Routine 11/19/2024 2 :58 AM JOINT TERMINAL ATTACK CONTROLLER POCT GLUCOSE DEVICE Routine 11/18/2024 10:55 PM JOINT TERMINAL ATTACK CONTROLLER POCT GLUCOSE DEVICE Routine 11/18/2024 7 :25 PM JOINT TERMINAL ATTACK CONTROLLER DIFFERENTIAL AUTO Routine 11/18/2024 5:5 3 PM JOINT TERMINAL ATTACK CONTROLLER CBC WITH AUTO DIFFERENTIAL Routine 11/18/2024 5:53 PM JOINT TERMINAL ATTACK CONTROLLER POCT GLUCOSE DEVICE Routine 11/18/2024 4 :41 PM JOINT TERMINAL ATTACK CONTROLLER POCT GLUCOSE DEVICE Routine 11/18/2024 2 :03 PM JOINT TERMINAL ATTACK CONTROLLER POCT GLUCOSE DEVICE Routine 11/18/2024 1 :15 PM JOINT TERMINAL ATTACK CONTROLLER TRANSFUSE RED BLOOD CELLS Timed 11/18/2024 12:39 PM JOINT TERMINAL ATTACK CONTROLLER POCT GLUCOSE DEVICE Routine 11/18/2024 12:02 PM JOINT TERMINAL ATTACK CONTROLLER POCT GLUCOSE DEVICE Routine 11/18/2024 11:13 AM JOINT TERMINAL ATTACK CONTROLLER TYPE AND SCREEN Timed 11/18/2024 10:26 AM JOINT TERMINAL ATTACK CONTROLLER POCT GLUCOSE DEVICE Routine 11/18/2024 10:13 AM JOINT TERMINAL ATTACK CONTROLLER PREPARE RBC Timed 11/18/2024 9:58 AM JOINT TERMINAL ATTACK CONTROLLER POC BLOOD GAS AND CHEMISTRIES, ARTERIAL Routine 11/18/2024 9:39 AM JOINT TERMINAL ATTACK CONTROLLER DE AN PROCEDURE PLACEHOLDER Routine 11/18/2024 9:01 AM JOINT TERMINAL ATTACK CONTROLLER DE AN PROCEDURE PLACEHOLDER Routine 11/18/2024 9:01 AM JOINT TERMINAL ATTACK CONTROLLER DE AN PROCEDURE PLACEHOLDER Routine 11/18/2024 9:00 AM JOINT TERMINAL ATTACK CONTROLLER DE AN ELECTIVE ENDOTRACHEAL AIRWAY Routine 11/18/2024 9:00 AM JOINT TERMINAL ATTACK CONTROLLER POCT GLUCOSE DEVICE Routine 11/18/2024 8 :48 AM JOINT TERMINAL ATTACK CONTROLLER EXPLORATION - CAROTID 11/18/2024 7:40 AM JOINT TERMINAL ATTACK CONTROLLER 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) POCT GLUCOSE DEVICE Routine 11/18/2024 6 :37 AM JOINT TERMINAL ATTACK CONTROLLER POCT GLUCOSE DEVICE Routine 11/17/2024 11:48 AM JOINT TERMINAL ATTACK CONTROLLER POCT GLUCOSE DEVICE Routine 11/17/2024 7 :55 AM JOINT TERMINAL ATTACK CONTROLLER EGFR Routine 11/17/2024 2:31 AM JOINT TERMINAL ATTACK CONTROLLER BASIC METABOLIC PANEL Routine 11/17/2024 2:31 AM JOINT TERMINAL ATTACK CONTROLLER POCT GLUCOSE DEVICE Routine 11/17/2024 1 :38 AM JOINT TERMINAL ATTACK CONTROLLER POCT GLUCOSE DEVICE Routine 11/16/2024 8 :33 PM JOINT TERMINAL ATTACK CONTROLLER POCT GLUCOSE DEVICE Routine 11/16/2024 4 :29 PM JOINT TERMINAL ATTACK CONTROLLER COVID-19 CORONAVIRUS RNA Routine 11/16/2024 12:37 PM JOINT TERMINAL ATTACK CONTROLLER POCT GLUCOSE DEVICE Routine 11/16/2024 11:37 AM JOINT TERMINAL ATTACK CONTROLLER POCT GLUCOSE DEVICE Routine 11/16/2024 8 :06 AM JOINT TERMINAL ATTACK CONTROLLER POCT GLUCOSE DEVICE Routine 11/16/2024 1 :44 AM JOINT TERMINAL ATTACK CONTROLLER POCT GLUCOSE DEVICE Routine 11/15/2024 8 :17 PM JOINT TERMINAL ATTACK CONTROLLER POCT GLUCOSE DEVICE Routine 11/15/2024 5 :06 PM JOINT TERMINAL ATTACK CONTROLLER POCT GLUCOSE DEVICE Routine 11/15/2024 11:45 AM JOINT TERMINAL ATTACK CONTROLLER POCT GLUCOSE DEVICE Routine 11/15/2024 8 :08 AM JOINT TERMINAL ATTACK CONTROLLER POTASSIUM LEVEL Timed 11/15/2024 5:04 AM JOINT TERMINAL ATTACK CONTROLLER MAGNESIUM Timed 11/15/2024 5:04 AM JOINT TERMINAL ATTACK CONTROLLER POCT GLUCOSE DEVICE Routine 11/15/2024 4 :01 AM JOINT TERMINAL ATTACK CONTROLLER POCT GLUCOSE DEVICE Routine 11/15/2024 1 :51 AM JOINT TERMINAL ATTACK CONTROLLER POCT GLUCOSE DEVICE Routine 11/14/2024 8 :08 PM JOINT TERMINAL ATTACK CONTROLLER POCT GLUCOSE DEVICE Routine 11/14/2024 4 :53 PM JOINT TERMINAL ATTACK CONTROLLER POCT GLUCOSE DEVICE Routine 11/14/2024 12:17 PM JOINT TERMINAL ATTACK CONTROLLER POCT GLUCOSE DEVICE Routine 11/14/2024 7 :56 AM JOINT TERMINAL ATTACK CONTROLLER POCT GLUCOSE DEVICE Routine 11/14/2024 2 :49 AM JOINT TERMINAL ATTACK CONTROLLER POCT GLUCOSE DEVICE Routine 11/13/2024 8 :19 PM JOINT TERMINAL ATTACK CONTROLLER POCT GLUCOSE DEVICE Routine 11/13/2024 4 :52 PM JOINT TERMINAL ATTACK CONTROLLER POCT GLUCOSE DEVICE Routine 11/13/2024 11:52 AM JOINT TERMINAL ATTACK CONTROLLER POCT GLUCOSE DEVICE Routine 11/13/2024 7 :55 AM JOINT TERMINAL ATTACK CONTROLLER POCT GLUCOSE DEVICE Routine 11/13/2024 1 :40 AM JOINT TERMINAL ATTACK CONTROLLER POCT GLUCOSE DEVICE Routine 11/12/2024 8 :24 PM JOINT TERMINAL ATTACK CONTROLLER POCT GLUCOSE DEVICE Routine 11/12/2024 5 :12 PM JOINT TERMINAL ATTACK CONTROLLER POCT GLUCOSE DEVICE Routine 11/12/2024 11:59 AM JOINT TERMINAL ATTACK CONTROLLER POCT GLUCOSE DEVICE Routine 11/12/2024 8 :30 AM JOINT TERMINAL ATTACK CONTROLLER EGFR Routine 11/12/2024 3:07 AM JOINT TERMINAL ATTACK CONTROLLER DIFFERENTIAL AUTO Routine 11/12/2024 3:0 7 AM JOINT TERMINAL ATTACK CONTROLLER MAGNESIUM Routine 11/12/2024 3:07 AM JOINT TERMINAL ATTACK CONTROLLER COMPREHENSIVE METABOLIC PANEL Routine 11/12/2024 3:07 AM JOINT TERMINAL ATTACK CONTROLLER CBC WITH AUTO DIFFERENTIAL Routine 11/12/2024 3:07 AM JOINT TERMINAL ATTACK CONTROLLER POCT GLUCOSE DEVICE Routine 11/12/2024 2 :49 AM JOINT TERMINAL ATTACK CONTROLLER POCT GLUCOSE DEVICE Routine 11/11/2024 8 :20 PM JOINT TERMINAL ATTACK CONTROLLER POCT GLUCOSE DEVICE Routine 11/11/2024 5 :18 PM JOINT TERMINAL ATTACK CONTROLLER POCT GLUCOSE DEVICE Routine 11/11/2024 2 :40 PM JOINT TERMINAL ATTACK CONTROLLER POCT GLUCOSE DEVICE Routine 11/11/2024 11:44 AM JOINT TERMINAL ATTACK CONTROLLER POCT GLUCOSE DEVICE Routine 11/11/2024 8 :18 AM JOINT TERMINAL ATTACK CONTROLLER POCT GLUCOSE DEVICE Routine 11/11/2024 3 :46 AM JOINT TERMINAL ATTACK CONTROLLER EGFR Routine 11/11/2024 2:16 AM JOINT TERMINAL ATTACK CONTROLLER DIFFERENTIAL AUTO Routine 11/11/2024 2:1 6 AM JOINT TERMINAL ATTACK CONTROLLER MAGNESIUM Routine 11/11/2024 2:16 AM JOINT TERMINAL ATTACK CONTROLLER COMPREHENSIVE METABOLIC PANEL Routine 11/11/2024 2:16 AM JOINT TERMINAL ATTACK CONTROLLER CBC WITH AUTO DIFFERENTIAL Routine 11/11/2024 2:16 AM JOINT TERMINAL ATTACK CONTROLLER POCT GLUCOSE DEVICE Routine 11/11/2024 1 :41 AM JOINT TERMINAL ATTACK CONTROLLER POCT GLUCOSE DEVICE Routine 11/10/2024 8 :50 PM JOINT TERMINAL ATTACK CONTROLLER POCT GLUCOSE DEVICE Routine 11/10/2024 4 :52 PM JOINT TERMINAL ATTACK CONTROLLER POCT GLUCOSE DEVICE Routine 11/10/2024 11:57 AM JOINT TERMINAL ATTACK CONTROLLER TRANSTHORACIC ECHO (TTE) LIMITED/FOLLOW UP WO DOPPLER/CF W CONTRAST STAT 11/10/2024 9:50 AM JOINT TERMINAL ATTACK CONTROLLER POCT GLUCOSE DEVICE Routine 11/10/2024 8 :00 AM JOINT TERMINAL ATTACK CONTROLLER EGFR Routine 11/10/2024 2:27 AM JOINT TERMINAL ATTACK CONTROLLER DIFFERENTIAL AUTO Routine 11/10/2024 2:2 7 AM JOINT TERMINAL ATTACK CONTROLLER PRO B-TYPE NATRIURETIC PEPTIDE Routine 11/10/2024 2:27 AM JOINT TERMINAL ATTACK CONTROLLER MAGNESIUM Routine 11/10/2024 2:27 AM JOINT TERMINAL ATTACK CONTROLLER COMPREHENSIVE METABOLIC PANEL Routine 11/10/2024 2:27 AM JOINT TERMINAL ATTACK CONTROLLER CBC WITH AUTO DIFFERENTIAL Routine 11/10/2024 2:27 AM JOINT TERMINAL ATTACK CONTROLLER POCT GLUCOSE DEVICE Routine 11/10/2024 1 :48 AM JOINT TERMINAL ATTACK CONTROLLER POCT GLUCOSE DEVICE Routine 11/09/2024 8 :39 PM JOINT TERMINAL ATTACK CONTROLLER POCT GLUCOSE DEVICE Routine 11/09/2024 5 :23 PM JOINT TERMINAL ATTACK CONTROLLER POCT GLUCOSE DEVICE Routine 11/09/2024 11:06 AM JOINT TERMINAL ATTACK CONTROLLER XR CHEST 1 VIEW ED Urgent/IP Urgent 11/09/2024 10:32 AM JOINT TERMINAL ATTACK CONTROLLER POCT GLUCOSE DEVICE Routine 11/09/2024 7 :16 AM JOINT TERMINAL ATTACK CONTROLLER POCT GLUCOSE DEVICE Routine 11/09/2024 2 :08 AM JOINT TERMINAL ATTACK CONTROLLER EGFR Routine 11/09/2024 2:08 AM JOINT TERMINAL ATTACK CONTROLLER DIFFERENTIAL AUTO Routine 11/09/2024 2:0 8 AM JOINT TERMINAL ATTACK CONTROLLER MAGNESIUM Routine 11/09/2024 2:08 AM JOINT TERMINAL ATTACK CONTROLLER COMPREHENSIVE METABOLIC PANEL Routine 11/09/2024 2:08 AM JOINT TERMINAL ATTACK CONTROLLER CBC WITH AUTO DIFFERENTIAL Routine 11/09/2024 2:08 AM JOINT TERMINAL ATTACK CONTROLLER POCT GLUCOSE DEVICE Routine 11/08/2024 8 :36 PM JOINT TERMINAL ATTACK CONTROLLER POCT GLUCOSE DEVICE Routine 11/08/2024 4 :57 PM JOINT TERMINAL ATTACK CONTROLLER TROPONIN T HIGH-SENSITIVITY Timed 11/08/2024 2:31 PM JOINT TERMINAL ATTACK CONTROLLER POCT GLUCOSE DEVICE Routine 11/08/2024 12:04 PM JOINT TERMINAL ATTACK CONTROLLER POCT GLUCOSE DEVICE Routine 11/08/2024 8 :00 AM JOINT TERMINAL ATTACK CONTROLLER TROPONIN T HIGH-SENSITIVITY Timed 11/08/2024 7:44 AM JOINT TERMINAL ATTACK CONTROLLER EGFR Routine 11/08/2024 2:30 AM JOINT TERMINAL ATTACK CONTROLLER DIFFERENTIAL AUTO Routine 11/08/2024 2:3 0 AM JOINT TERMINAL ATTACK CONTROLLER APTT STAT 11/08/2024 2:30 AM JOINT TERMINAL ATTACK CONTROLLER CBC WITHOUT DIFFERENTIAL STAT 11/08/2024 2:30 AM JOINT TERMINAL ATTACK CONTROLLER PROTIME-INR STAT 11/08/2024 2:30 AM JOINT TERMINAL ATTACK CONTROLLER LIPID PANEL Routine 11/08/2024 2:30 AM JOINT TERMINAL ATTACK CONTROLLER MAGNESIUM Routine 11/08/2024 2:30 AM JOINT TERMINAL ATTACK CONTROLLER COMPREHENSIVE METABOLIC PANEL Routine 11/08/2024 2:30 AM JOINT TERMINAL ATTACK CONTROLLER CBC WITH AUTO DIFFERENTIAL Routine 11/08/2024 2:30 AM JOINT TERMINAL ATTACK CONTROLLER PRO B-TYPE NATRIURETIC PEPTIDE Routine 11/08/2024 2:30 AM JOINT TERMINAL ATTACK CONTROLLER TROPONIN T HIGH-SENSITIVITY Timed 11/08/2024 2:30 AM JOINT TERMINAL ATTACK CONTROLLER PROTIME-INR Routine 11/08/2024 2:24 AM JOINT TERMINAL ATTACK CONTROLLER POCT GLUCOSE DEVICE Routine 11/08/2024 1 :48 AM JOINT TERMINAL ATTACK CONTROLLER SCAN - LABS 11/07/2024 XR TRANSFER OF OUTSIDE FILMS Routine 11/07/2024 12:00 AM JOINT TERMINAL ATTACK CONTROLLER SCAN - RADIOLOGY/IMAGING 11/07/2024 SCAN - LABS 11/04/2024 PROTIME-INR Routine 11/04/2024 MRI ABDOMEN LIVER W WO CONTRAST Schedule Routine, Read Routine (OP Routine) 10/27/2024 12:54 PM JOINT TERMINAL ATTACK CONTROLLER Neuroendocrine cancer (HCC) Secondary neuroendocrine tumors (HCC) XR CHEST PA LATERAL 2 VIEWS Schedule Routine, Read Routine (OP Routine) 10/27/2024 9:14 AM JOINT TERMINAL ATTACK CONTROLLER Encounter for imaging to screen for metal prior to magnetic resonance imaging (MRI) PROTIME-INR Routine 10/27/2024 US CAROTIDS DUPLEX BILATERAL Schedule Routine, Read Routine (OP Routine) 10/25/2024 2:57 PM JOINT TERMINAL ATTACK CONTROLLER Encounter for other preprocedural examination SCAN - LABS 10/22/2024 DEVICE CHECK - REMOTE Routine 10/19/2024 10:10 AM JOINT TERMINAL ATTACK CONTROLLER ICD (implantable cardioverter-defibri llator) in place Dilated cardiomyopathy (CMS/HCC) (HCC) Paroxysmal A-fib (CMS/HCC) (HCC) PROTIME-INR Routine 10/14/2024 PROTIME-INR Routine 10/07/2024 PROTIME-INR Routine 10/01/2024 PROTIME-INR Routine 10/01/2024 PROTIME-INR Routine 09/23/2024 SCAN - LABS 09/13/2024 HEPATITIS PANEL, ACUTE Routine 06/07/2024 4:33 AM CDT DIABETIC EYE EXAM Routine 01/26/2024 2:2 7 PM CDT SCREENING MAMMOGRAM BILATERAL W [place] Schedule Routine, Read Routine (OP Routine) 04/01/2023 8:51 AM CDT Screening mammogram, encounter for ALBUMIN CREATININE RATIO, URINE Routine 10/11/2022 10:25 AM JOINT TERMINAL ATTACK CONTROLLER Type 2 diabetes mellitus with hyperlipidemia (HCC) Essential hypertension COLONOSCOPY 02/05/2022 1:10 PM CDT from Last 3 Months or Most Recently Relevant to Health Maintenance Results * POCT glucose (12/09/2024 3:12 PM JOINT TERMINAL ATTACK CONTROLLER) Glucose, POC 128 70 - 199 mg/dL Blood 12/09/2024 3:12 PM JOINT TERMINAL ATTACK CONTROLLER 12/09/2024 3:12 PM JOINT TERMINAL ATTACK CONTROLLER us Jaylene Huang MD LAB POCT ORDERABLES - DEVICE Final Result Performing Organization Address City/[facility]/ZIP Co de Phone Number GIFTYSALVATORE CUMMINGS ([place]) [address] [facility] [place] [address] * (ABNORMAL) POCT glucose (12/09/2024 11:37 AM JOINT TERMINAL ATTACK CONTROLLER) Glucose, POC 404(H) 70 - 199 mg/dL Blood 12/09/2024 11:3 7 AM JOINT TERMINAL ATTACK CONTROLLER 12/09/2024 11:37 AM JOINT TERMINAL ATTACK CONTROLLER Jaylene Huang MD LAB POCT ORDERABLES - DEVICE Final Result Performing Organization Address City/[facility]/ZIP Co de Phone Number ALLY CUMMINGS ([place]) [address] [facility] [place] [address] * POCT glucose (12/09/2024 7:55 AM JOINT TERMINAL ATTACK CONTROLLER) Glucose, POC 184 70 - 199 mg/dL Blood 12/09/2024 7:55 AM JOINT TERMINAL ATTACK CONTROLLER 12/09/2024 7:55 AM JOINT TERMINAL ATTACK CONTROLLER Jaylene Huang MD LAB POCT ORDERABLES - DEVICE Final Result Performing Organization Address City/[facility]/ZIP Co de Phone Number ALLY CUMMINGS ([place]) [address] [place] [address] * (ABNORMAL) POCT glucose (12/09/2024 4:54 AM JOINT TERMINAL ATTACK CONTROLLER) Glucose, POC 246(H) 70 - 199 mg/dL Blood 12/09/2024 4:54 AM JOINT TERMINAL ATTACK CONTROLLER 12/09/2024 4:54 AM JOINT TERMINAL ATTACK CONTROLLER Result [facility] Jaylene Huang MD LAB POCT ORDERABLES - DEVICE Final Result Performing Organization Address City/[facility] Co de Phone Number ALLY CUMMINGS ([place]) [address] [place] [address] * (ABNORMAL) Protime-INR (12/09/2024 3:07 AM JOINT TERMINAL ATTACK CONTROLLER) PT 27.3(H) 9.7 - 13.0 sec [facility] ([place]) INR 2.48(H) 0.90 - 1.20 ALLY CUMMINGS ([place]) Comment: Interpretive data Oral anticoagulant therapeutic ranges: Venous thromboembolism prophylaxis or treatment: 2.0-3.0 CARDIOLOGY Standard range: 2.0-3.0 High-intensity range: 2.5-3.5 Refer to indication-specific guidelines for appropriate target ranges for prosthetic heart valve replacement. Current interpretive data was last revised on 2019. Blood 12/09/2024 3:07 AM JOINT TERMINAL ATTACK CONTROLLER 12/09/2024 3:23 AM JOINT TERMINAL ATTACK CONTROLLER Sampson Davenport II, MD LAB BLOOD ORDERABLES F inal Result [facility]Y C[facility] ([place]) [address] [facility] [place] [address] * (ABNORMAL) POCT glucose (12/09/2024 2:15 AM JOINT TERMINAL ATTACK CONTROLLER) Glucose, POC 415(H) 70 - 199 mg/dL Blood 12/09/2024 2:15 AM JOINT TERMINAL ATTACK CONTROLLER 12/09/2024 2:15 AM JOINT TERMINAL ATTACK CONTROLLER us Jaylene Huang MD LAB POCT ORDERABLES - DEVICE Final Result ALLY CUMMINGS ([place]) [address] [facility] [place] [address] * POCT glucose (12/08/2024 8:20 PM JOINT TERMINAL ATTACK CONTROLLER) Glucose, POC 96 70 - 199 mg/dL Blood 12/08/2024 8:20 PM JOINT TERMINAL ATTACK CONTROLLER 12/08/2024 8:20 PM JOINT TERMINAL ATTACK CONTROLLER us Jaylene Huang MD LAB POCT ORDERABLES - DEVICE Final Result [facility]Y CUMMINGS ([place]) [address] [facility] [place] [address] * POCT glucose (12/08/2024 5:13 PM JOINT TERMINAL ATTACK CONTROLLER) Glucose, POC 110 70 - 199 mg/dL Blood 12/08/2024 5:13 PM JOINT TERMINAL ATTACK CONTROLLER 12/08/2024 5:13 PM JOINT TERMINAL ATTACK CONTROLLER us Jaylene Huang MD LAB POCT ORDERABLES - DEVICE Final Result ALLY CUMMINGS ([place]) [address] [facility] [place] [address] * (ABNORMAL) POCT glucose (12/08/2024 12:23 PM JOINT TERMINAL ATTACK CONTROLLER) Glucose, POC 253(H) 70 - 199 mg/dL Blood 12/08/2024 12:2 3 PM JOINT TERMINAL ATTACK CONTROLLER 12/08/2024 12:23 PM JOINT TERMINAL ATTACK CONTROLLER Jaylene Huang MD LAB POCT ORDERABLES - DEVICE Final Result Performing Organization Address City/[facility]/ZIP Co de Phone Number ALLY CUMMINGS ([place]) [address] [facility] [place] [address] * (ABNORMAL) POCT glucose (12/08/2024 8:14 AM JOINT TERMINAL ATTACK CONTROLLER) Pathologist [facility] Glucose, POC 213(H) 70 - 199 mg/dL Blood 12/08/2024 8:14 AM JOINT TERMINAL ATTACK CONTROLLER 12/08/2024 8:14 AM JOINT TERMINAL ATTACK CONTROLLER Jaylene Huang MD LAB POCT ORDERABLES - DEVICE Final Result Performing Organization Address [facility] de Phone Number ALLY CUMMINGS ([place]) [address] [facility] [place] [address] * Differential, auto (12/08/2024 5:29 AM JOINT TERMINAL ATTACK CONTROLLER) Pathologist [facility] Neutrophil abs 5.3 1.5 - 6.5 K/cumm Imm gran abs 0.1 0.0 - 0.1 K/cumm [facility] ([place]) Lymphocyte abs 1.5 0.8 - 3.3 K/cumm [facility] ([place]) Monocyte abs 0.7 0.2 - 0.8 K/cumm [facility] ([place]) [...] on 2018. Imm gran pct 1.7 % [facility] ([place]) Comment: Interpretive Data Percent cell count reference ranges are not reported, since discordance with absolute values may lead to misinterpretation of CBC data. Current Interpretive Data was last revised on 2018. Lymphocyte pct 19.5 % [facility] ([place]) Comment: Interpretive Data Percent cell count reference ranges are not reported, since discordance with absolute values may lead to misinterpretation of CBC data. Current Interpretive Data was last revised on 2018. Monocyte pct 8.6 % [facility] ([place]) Comment: Interpretive Data Percent cell count reference ranges are not reported, since discordance with absolute values may lead to misinterpretation of CBC data. Current Interpretive Data was last revised on 2018. Eosinophil pct 0.1 % [facility] ([place]) Comment: Interpretive Data Percent cell count reference ranges are not reported, since discordance with absolute values may lead to misinterpretation of CBC data. Current Interpretive Data was last revised on 2018. Basophil pct 0.1 % [facility] ([place]) Comment: Interpretive Data Percent cell count reference ranges are not reported, since discordance with absolute values may lead to misinterpretation of CBC data. Current Interpretive Data was last revised on 2018. Blood 12/08/2024 5:29 AM JOINT TERMINAL ATTACK CONTROLLER 12/08/2024 5:45 AM JOINT TERMINAL ATTACK CONTROLLER us Haven Carmona MD LAB BLOOD ORDERABLES Fi nal Result ALLY CUMMINGS ([place]) [address] [facility] [place] [address] * (ABNORMAL) CBC with auto differential (12/08/2024 5:29 AM [employer]) WBC 7.5 3.8 - 9.9 K/cumm Hgb 8.5(L) 11.9 - 15.5 g/dL [facility] ([place]) Hct 30.5(L) 35.6 - 45.5 % [facility] ([place]) Plt 356 150 - 400 K/cumm [facility] ([place]) MPV 10.2 9.1 - 12.3 fL [facility] ([place]) RBC 3.63(L) 3.90 - 5.20 M/cumm [facility] ([place]) MCV 84.0 81.3 - 96.4 fL [facility] ([place]) MCH 23.4(L) 27.1 - 33.3 pg [facility] ([place]) MCHC 27.9(L) 32.3 - 35.7 g/dL [facility] ([place]) RDW CV 22.2(H) 11.1 - 14.9 % [facility] ([place]) RDW SD 67.3(H) 35.7 - 48.1 fL [facility] ([place]) NRBC abs 0.07(H) 0.00 - 0.01 K/cumm [facility] ([place]) Blood 12/08/2024 5:29 AM [employer] 12/08/2024 5:45 AM [employer] us Haven Carmona MD LAB BLOOD ORDERABLES nal Result [facility] ([place]) [facility] Department of Laboratories [place], [place] [id number] * eGFR (12/08/2024 3:15 AM [employer]) eGFR >90 >=60 mL/min/1. 73 m2 Comment: [...] interpretive data was last reviewed 2021. Blood 12/08/2024 3:15 AM [employer] 12/08/2024 3:32 AM [employer] us Sanjeev Gonzales MD LAB BLOOD ORDERABLES Final Resu lt [facility] ([place]) [address] [facility] [place] [address] * Beta-hydroxybutyrate (12/08/2024 3:15 AM [employer]LLER) Beta-Hydroxybut yrate 0.2 <=0.5 mmol/L Comment:Testing performed by : [facility], [address] [place] [address], [facility] Blood 12/08/2024 3:1 5 AM [employer] 12/08/2024 10:39 AM JOINT TERMINAL ATTACK CONTROLLER us Jaylene Huang MD LAB BLOOD ORDERABLES Final Re sult Performing Organization Address City/[facility]/ZIP Co de Phone Number [facility]Y C[facility] ([place]) 1 [facility] [place] [address] * (ABNORMAL) Protime-INR (12/08/2024 3:15 AM JOINT TERMINAL ATTACK CONTROLLER) PT 25.2(H) 9.7 - 13.0 sec [facility] ([place]) INR 2.29(H) 0.90 - 1.20 [facility] ([place]) Comment: Interpretive data Oral anticoagulant therapeutic ranges: Venous thromboembolism prophylaxis or treatment: 2.0-3.0 CARDIOLOGY Standard range: 2.0-3.0 High-intensity range: 2.5-3.5 Refer to indication-specific guidelines for appropriate target ranges for prosthetic heart valve replacement. Current interpretive data was last revised on 2019. Blood 12/08/2024 3:15 AM JOINT TERMINAL ATTACK CONTROLLER 12/08/2024 3:32 AM JOINT TERMINAL ATTACK CONTROLLER us Sampson Davenport II, MD LAB BLOOD ORDERABLES F inal Result [facility] ([place]) 1 [facility] [place] [address] * Magnesium (12/08/2024 3:15 AM JOINT TERMINAL ATTACK CONTROLLER) Magnesium 2.5 1.4 - 2.5 mg/dL Blood 12/08/2024 3:15 AM JOINT TERMINAL ATTACK CONTROLLER 12/08/2024 3:32 AM JOINT TERMINAL ATTACK CONTROLLER us Sanjeev Gonzales MD LAB BLOOD ORDERABLES Final Resu lt Performing Organization Address [facility]/ZIP Co de Phone Number [facility] ([place]) 1 [facility] [place] [address] * (ABNORMAL) Comprehensive metabolic panel (12/08/2024 3:15 AM JOINT TERMINAL ATTACK CONTROLLER) Sodium 143 135 - 145 mmol/L Potassium, pl 3.9 3.3 - 4.9 mmol/L [facility] ([place]) Chloride 98 97 - 110 mmol/L [facility] ([place]) CO2 28 22 - 32 mmol/L [facility] ([place]) Anion gap 17(H) 2 - 15 mmol/L [facility] ([place]) BUN 24 6 - 25 mg/dL [facility] ([place]) Creatinine 0.58(L) 0.60 - 1.10 mg/dL [facility] ([place]) Glucose 221(H) 70 - 199 mg/dL [facility] ([place]) [...] 2022. Calcium 8.8 8.5 - 10.3 mg/dL [facility] Bilirubin, total 0.3 0.1 - 1.2 mg/dL [facility] ([place]) Protein, pl 6.7 6.5 - 8.5 g/dL [facility] ([place]) Albumin 4.3 3.5 - 5.0 g/dL [facility] ([place] Alk phos 96 40 - 130 Units/L [facility] ([place]) ALT 35 7 - 45 Units/L [facility] ([place]) AST 21 10 - 45 Units/L [facility] ([place]) Comment:Slightly Hemolyzed S pecimen Blood 12/08/2024 3:15 AM JOINT TERMINAL ATTACK CONTROLLER 12/08/2024 3:32 AM JOINT TERMINAL ATTACK CONTROLLER us Sanjeev Gonzales MD LAB BLOOD ORDERABLES Final Resu lt Performing Organization Address City/[facility] Co de Phone Number [facility] CUMM[facility] ([place]) 1 [facility] [place] [address] * (ABNORMAL) POCT glucose (12/08/2024 2:05 AM JOINT TERMINAL ATTACK CONTROLLER) Glucose, POC 280(H) 70 - 199 mg/dL Blood 12/08/2024 2:05 AM JOINT TERMINAL ATTACK CONTROLLER 12/08/2024 2:05 AM JOINT TERMINAL ATTACK CONTROLLER us Jaylene Huang MD LAB POCT ORDERABLES - DEVICE Final Result Performing Organization Address City/[facility] Co de Phone Number [facility] ([place]) 1 [facility] [place] [address] * POCT glucose (12/07/2024 8:57 PM JOINT TERMINAL ATTACK CONTROLLER) Glucose, POC 127 70 - 199 mg/dL Blood 12/07/2024 8:57 PM JOINT TERMINAL ATTACK CONTROLLER 12/07/2024 8:57 PM JOINT TERMINAL ATTACK CONTROLLER us Jaylene Huang MD LAB POCT ORDERABLES - DEVICE Final Result [facility] ([place]) 1 [place] [address] * (ABNORMAL) POCT glucose (12/07/2024 5:14 PM JOINT TERMINAL ATTACK CONTROLLER) Glucose, POC 214(H) 70 - 199 mg/dL Blood 12/07/2024 5:14 PM JOINT TERMINAL ATTACK CONTROLLER 12/07/2024 5:14 PM JOINT TERMINAL ATTACK CONTROLLER Jaylene Huang MD LAB POCT ORDERABLES - DEVICE Final Result Performing Organization Address City/[facility]/ZIP Co de Phone Number [facility]UM[facility] ([place]) 1 [place] [address] * (ABNORMAL) POCT glucose (12/07/2024 11:54 AM JOINT TERMINAL ATTACK CONTROLLER) Glucose, POC 225(H) 70 - 199 mg/dL Blood 12/07/2024 11:5 4 AM JOINT TERMINAL ATTACK CONTROLLER 12/07/2024 11:54 AM JOINT TERMINAL ATTACK CONTROLLER us Jaylene Huang MD LAB POCT ORDERABLES - DEVICE Final Result Performing Organization Address [facility]/ZIP Co de Phone Number [facility] CUMMINGS ([place]) 1 [facility] [place] [address] * (ABNORMAL) POCT glucose (12/07/2024 7:21 AM JOINT TERMINAL ATTACK CONTROLLER) Glucose, POC 275(H) 70 - 199 mg/dL Blood 12/07/2024 7:21 AM JOINT TERMINAL ATTACK CONTROLLER 12/07/2024 7:21 AM JOINT TERMINAL ATTACK CONTROLLER us Jaylene Huang MD LAB POCT ORDERABLES - DEVICE Final Result [facility] ([place]) 1 [facility] [place] [address] * (ABNORMAL) POCT glucose (12/07/2024 1:49 AM JOINT TERMINAL ATTACK CONTROLLER) [facility] Glucose, POC 227(H) 70 - 199 mg/dL Blood 12/07/2024 1:49 AM JOINT TERMINAL ATTACK CONTROLLER 12/07/2024 1:49 AM JOINT TERMINAL ATTACK CONTROLLER us Sampson Davenport II, MD LAB POCT ORDERABLES - DEVICE Final Result Performing Organization Address City/[facility]/ZIP Co de Phone Number [facility] CUMMINGS ([place]) [address] [place] [address] [place] [address] * eGFR (12/07/2024 12:27 AM JOINT TERMINAL ATTACK CONTROLLER) [facility] eGFR >90 >=60 mL/min/1. 73 m2 Comment: [...] interpretive data was last reviewed 2021. Blood 12/07/2024 12:2 7 AM JOINT TERMINAL ATTACK CONTROLLER 12/07/2024 12:42 AM JOINT TERMINAL ATTACK CONTROLLER us Sanjeev Gonzales MD LAB BLOOD ORDERABLES Final Resu lt Performing Organization Address City/[facility]/ZIP Co de Phone Number [facility] ([place]) 1 [facility] [place] [address] * (ABNORMAL) Differential, auto (12/07/2024 12:27 AM JOINT TERMINAL ATTACK CONTROLLER) [facility] Neutrophil abs 8.2(H) 1.5 - 6.5 K/cumm Imm gran abs 0.2(H) 0.0 - 0.1 K/cumm [facility] ([place]) Lymphocyte abs 1.9 0.8 - 3.3 K/cumm [facility] ([place]) Monocyte abs 0.8 0.2 - 0.8 K/cumm [facility] ([place]) Eosinophil abs 0.0 0.0 - 0.5 K/cumm [facility] ([place]) Basophil abs 0.1 0.0 - 0.1 K/cumm [facility] ([place]) Neutrophil pct 73.1 % [facility] ([place]) Comment: Interpretive Data Percent cell count reference ranges are not reported, since discordance with absolute values may lead to misinterpretation of CBC data. Current Interpretive Data was last revised on 2018. Imm gran pct 2.1 % [facility] ([place]) Comment: Interpretive Data Percent cell count reference ranges are not reported, since discordance with absolute values may lead to misinterpretation of CBC data. Current Interpretive Data was last revised on 2018. Lymphocyte pct 16.9 % [facility] ([place]) Comment: Interpretive [...] revised on 2018. Eosinophil pct 0.1 % [facility] ([place]) Comment: Interpretive Data Percent cell count reference ranges are not reported, since discordance with absolute values may lead to misinterpretation of CBC data. Current Interpretive Data was last revised on 2018. Basophil pct 0.5 % [facility] ([place]) Comment: Interpretive Data Percent cell count reference ranges are not reported, since discordance with absolute values may lead to misinterpretation of CBC data. Current Interpretive Data was last revised on 2018. Blood 12/07/2024 12:2 7 AM JOINT TERMINAL ATTACK CONTROLLER 12/07/2024 12:42 AM JOINT TERMINAL ATTACK CONTROLLER us Sanjeev Gonzales MD LAB BLOOD ORDERABLES Final Resu lt [facility] ([place]) 1 [facility] [employer] [address] * (ABNORMAL) CBC with auto differential (12/07/2024 12:27 AM JOINT TERMINAL ATTACK CONTROLLER) [facility] WBC 11.3(H) 3.8 - 9.9 K/cumm Hgb 10.2(L) 11.9 - 15.5 g/dL [facility] ([place]) Hct 38.0 35.6 - 45.5 % [facility] ([place]) Plt 380 150 - 400 K/cumm [facility] ([place]) MPV 10.5 9.1 - 12.3 fL [facility] ([place]) RBC 4.35 3.90 - 5.20 M/cumm [facility] ([place]) MCV 87.4 81.3 - 96.4 fL [facility] ([place]) MCH 23.4(L) 27.1 - 33.3 pg [facility] ([place]) MCHC 26.8(L) 32.3 - 35.7 g/dL [facility] ([place]) RDW CV 22.5(H) 11.1 - 14.9 % [facility] ([place]) RDW SD 70.7(H) 35.7 - 48.1 fL [facility] ([place]) NRBC abs 0.10(H) 0.00 - 0.01 K/cumm [facility] ([place]) Blood 12/07/2024 12:2 7 AM JOINT TERMINAL ATTACK CONTROLLER 12/07/2024 12:42 AM JOINT TERMINAL ATTACK CONTROLLER us Sanjeev Gonzales MD LAB BLOOD ORDERABLES Final Resu lt [facility] ([place]) 1 [facility] [place] [address] * (ABNORMAL) Protime-INR (12/07/2024 12:27 AM JOINT TERMINAL ATTACK CONTROLLER) PT 21.6(H) 9.7 - 13.0 sec [facility] ([place]) INR 1.97(H) 0.90 - 1.20 [facility] ([place]) Comment: Interpretive data Oral anticoagulant therapeutic ranges: Venous thromboembolism prophylaxis or treatment: 2.0-3.0 CARDIOLOGY Standard range: 2.0-3.0 High-intensity range: 2.5-3.5 Refer to indication-specific guidelines for appropriate target ranges for prosthetic heart valve replacement. Current interpretive data was last revised on 2019. Blood 12/07/2024 12:2 7 AM JOINT TERMINAL ATTACK CONTROLLER 12/07/2024 12:42 AM JOINT TERMINAL ATTACK CONTROLLER us Sampson Davenport II, MD LAB BLOOD ORDERABLES F inal Result Performing Organization Address City/[facility]/ZIP Co de Phone Number [facility] ([place]) 1 [facility] [place] [address] * Magnesium (12/07/2024 12:27 AM JOINT TERMINAL ATTACK CONTROLLER) Pathologist [facility] Magnesium 2.4 1.4 - 2.5 mg/dL Blood 12/07/2024 12:2 7 AM JOINT TERMINAL ATTACK CONTROLLER 12/07/2024 12:42 AM JOINT TERMINAL ATTACK CONTROLLER us Sanjeev Gonzales MD LAB BLOOD ORDERABLES Final Resu lt Performing Organization Address City/[facility]/ZIP Co de Phone Number [facility] ([place]) 1 [facility] [place] [address] * (ABNORMAL) Comprehensive metabolic panel (12/07/2024 12:27 AM JOINT TERMINAL ATTACK CONTROLLER) Pathologist [facility] Sodium 143 135 - 145 mmol/L Potassium, pl 4.0 3.3 - 4.9 mmol/L [facility] ([place]) Chloride 98 97 - 110 mmol/L [facility] ([place]) CO2 30 22 - 32 mmol/L [facility] ([place]) Anion gap 15 2 - 15 mmol/L [facility] ([place]) BUN 18 6 - 25 mg/dL [facility] ([place]) Creatinine 0.40(L) 0.60 - 1.10 mg/dL [facility] ([place]) Glucose 183 70 - 199 mg/dL [facility] ([place]) [...] 2022. Calcium 8.8 8.5 - 10.3 mg/dL [facility] ([place]) Bilirubin, total 0.3 0.1 - 1.2 mg/dL [facility] ([place]) Protein, pl 7.0 6.5 - 8.5 g/dL [facility] ([place]) Albumin 4.2 3.5 - 5.0 g/dL [facility] ([place]) Alk phos 94 40 - 130 Units/L [facility] ([place]) ALT 29 7 - 45 Units/L [facility] ([place]) AST 18 10 - 45 Units/L [facility] ([place]) Blood 12/07/2024 12:2 7 AM JOINT TERMINAL ATTACK CONTROLLER 12/07/2024 12:42 AM JOINT TERMINAL ATTACK CONTROLLER us Sanjeev Gonzales MD LAB BLOOD ORDERABLES Final Resu lt [facility] ([place]) 1 [facility] [place] [address] * (ABNORMAL) POCT glucose (12/06/2024 8:52 PM JOINT TERMINAL ATTACK CONTROLLER) Glucose, POC 219(H) 70 - 199 mg/dL Blood 12/06/2024 8:52 PM JOINT TERMINAL ATTACK CONTROLLER 12/06/2024 8:52 PM JOINT TERMINAL ATTACK CONTROLLER us Sampson Davenport II, MD LAB POCT ORDERABLES - DEVICE Final Result [facility] ([place]) 1 [facility] [place] [address] * POCT glucose (12/06/2024 5:29 PM JOINT TERMINAL ATTACK CONTROLLER) Glucose, POC 115 70 - 199 mg/dL Blood 12/06/2024 5:29 PM JOINT TERMINAL ATTACK CONTROLLER 12/06/2024 5:29 PM JOINT TERMINAL ATTACK CONTROLLER us Sampson Davenport II, MD LAB POCT ORDERABLES - DEVICE Final Result Performing Organization Address [facility]/ZIP Co de Phone Number [facility] CUMMINGS ([place]) 1 [facility] [place] [address] * (ABNORMAL) POCT glucose (12/06/2024 11:50 AM JOINT TERMINAL ATTACK CONTROLLER) Glucose, POC 247(H) 70 - 199 mg/dL Blood 12/06/2024 11:5 0 AM JOINT TERMINAL ATTACK CONTROLLER 12/06/2024 11:50 AM JOINT TERMINAL ATTACK CONTROLLER us Sampson Davenport II, MD LAB POCT ORDERABLES - DEVICE Final Result Performing Organization Address [facility]/ZIP Co de Phone Number [facility] CUMMINGS ([place]) 1 [facility] [place] [address] * (ABNORMAL) POCT glucose (12/06/2024 7:49 AM JOINT TERMINAL ATTACK CONTROLLER) Glucose, POC 208(H) 70 - 199 mg/dL Blood 12/06/2024 7:49 AM JOINT TERMINAL ATTACK CONTROLLER 12/06/2024 7:49 AM JOINT TERMINAL ATTACK CONTROLLER us Sampson Davenport II, MD LAB POCT ORDERABLES - DEVICE Final Result [facility] CUMMINGS ([place]) 1 [facility] [place] [address] * eGFR (12/06/2024 6:08 AM JOINT TERMINAL ATTACK CONTROLLER) eGFR >90 >=60 mL/min/1. 73 m2 Comment: [...] interpretive data was last reviewed 2021. Blood 12/06/2024 6:08 AM JOINT TERMINAL ATTACK CONTROLLER 12/06/2024 6:20 AM JOINT TERMINAL ATTACK CONTROLLER us Sanjeev Gonzales MD LAB BLOOD ORDERABLES Final Resu lt [facility] ([place]) 1 [facility] [place] [address] * (ABNORMAL) Differential, auto (12/06/2024 6:08 AM JOINT TERMINAL ATTACK CONTROLLER) Neutrophil abs 7.8(H) 1.5 - 6.5 K/cumm Imm gran abs 0.2(H) 0.0 - 0.1 K/cumm [facility] ([place]) Lymphocyte abs 1.2 0.8 - 3.3 K/cumm [facility] ([place]) Monocyte abs 0.8 0.2 - 0.8 K/cumm [facility] ([place]) Eosinophil abs 0.0 0.0 - 0.5 K/cumm [facility] ([place]) Basophil abs 0.0 0.0 - 0.1 K/cumm [facility] ([place]) Neutrophil pct 78.2 % [facility] ([place]) Comment: Interpretive Data Percent cell count reference ranges are not reported, since discordance with absolute values may lead to misinterpretation of CBC data. Current Interpretive Data was last revised on 2018. Imm gran pct 1.9 % [facility] ([place]) Comment: Interpretive Data Percent cell count reference ranges are not reported, since discordance with absolute values may lead to misinterpretation of CBC data. Current Interpretive Data was last revised on 2018. Lymphocyte pct 11.7 % [facility] ([place]) Comment: Interpretive Data Percent cell count reference ranges are not reported, since discordance with absolute values may lead to misinterpretation of CBC data. Current Interpretive Data was last revised on 2018. Monocyte pct 7.9 % [facility] ([place]) Comment: Interpretive Data Percent cell count reference ranges are not reported, since discordance with absolute values may lead to misinterpretation of CBC data. Current Interpretive Data was last revised on 2018. Eosinophil pct 0.0 % [facility] ([place]) Comment: Interpretive Data Percent cell count reference ranges are not reported, since discordance with absolute values may lead to misinterpretation of CBC data. Current Interpretive Data was last revised on 2018. Basophil pct 0.3 % [facility] ([place]) Comment: Interpretive Data Percent cell count reference ranges are not reported, since discordance with absolute values may lead to misinterpretation of CBC data. Current Interpretive Data was last revised on 2018. Blood 12/06/2024 6:08 AM JOINT TERMINAL ATTACK CONTROLLER 12/06/2024 6:20 AM JOINT TERMINAL ATTACK CONTROLLER us Sanjeev Gonzales MD LAB BLOOD ORDERABLES Final Resu lt [facility] ([place]) 1 [facility] [place] [address] * (ABNORMAL) CBC with auto differential (12/06/2024 6:08 AM JOINT TERMINAL ATTACK CONTROLLER) WBC 10.0(H) 3.8 - 9.9 K/cumm Hgb 10.2(L) 11.9 - 15.5 g/dL [facility] ([place]) Hct 36.8 35.6 - 45.5 % [facility] ([place]) Plt 435(H) 150 - 400 K/cumm [facility] ([place]) MPV 10.2 9.1 - 12.3 fL [facility] ([place]) RBC 4.38 3.90 - 5.20 M/cumm [facility] ([place]) MCV 84.0 81.3 - 96.4 fL [facility] ([place]) MCH 23.3(L) 27.1 - 33.3 pg [facility] ([place]) MCHC 27.7(L) 32.3 - 35.7 g/dL [facility] ([place]) RDW CV 22.8(H) 11.1 - 14.9 % [facility] ([place]) RDW SD 69.4(H) 35.7 - 48.1 fL [facility] ([place]) NRBC abs 0.03(H) 0.00 - 0.01 K/cumm [facility] ([place]) Blood 12/06/2024 6:08 AM JOINT TERMINAL ATTACK CONTROLLER 12/06/2024 6:20 AM JOINT TERMINAL ATTACK CONTROLLER us Sanjeev Gonzales MD LAB BLOOD ORDERABLES Final Resu lt [facility] ([place]) 1 [facility] Department of Laboratories [place], [place] [id number] * (ABNORMAL) Protime-INR (12/06/2024 6:08 AM JOINT TERMINAL ATTACK CONTROLLER) PT 18.9(H) 9.7 - 13.0 sec [facility] ([place]) INR 1.73(H) 0.90 - 1.20 [facility] ([place]) Comment: Interpretive data Oral anticoagulant therapeutic ranges: Venous thromboembolism prophylaxis or treatment: 2.0-3.0 CARDIOLOGY Standard range: 2.0-3.0 High-intensity range: 2.5-3.5 Refer to indication-specific guidelines for appropriate target ranges for prosthetic heart valve replacement. Current interpretive data was last revised on 2019. Blood 12/06/2024 6:08 AM JOINT TERMINAL ATTACK CONTROLLER 12/06/2024 6:20 AM JOINT TERMINAL ATTACK CONTROLLER us Sampson Davenport II, MD LAB BLOOD ORDERABLES F inal Result [facility] ([place]) 1 [facility] [place] [address] * Magnesium (12/06/2024 6:08 AM JOINT TERMINAL ATTACK CONTROLLER) Pathologist [facility] Magnesium 2.3 1.4 - 2.5 mg/dL Blood 12/06/2024 6:08 AM JOINT TERMINAL ATTACK CONTROLLER 12/06/2024 6:20 AM JOINT TERMINAL ATTACK CONTROLLER us Sanjeev Gonzales MD LAB BLOOD ORDERABLES Final Resu lt Performing Organization Address [facility]/ZIP Co de Phone Number [facility] ([place]) 1 [facility] [place] [address] * (ABNORMAL) Comprehensive metabolic panel (12/06/2024 6:08 AM JOINT TERMINAL ATTACK CONTROLLER) Sodium 146(H) 135 - 145 mmol/L Potassium, pl 3.8 3.3 - 4.9 mmol/L [facility] ([place] Chloride 97 97 - 110 mmol/L [facility] ([place] CO2 36(H) 22 - 32 mmol/L [facility] ([place] Anion gap 13 2 - 15 mmol/L [facility] ([place] BUN 19 6 - 25 mg/dL [facility] ([place] Creatinine 0.47(L) 0.60 - 1.10 mg/dL [facility] ([place]) Glucose 207(H) 70 - 199 mg/dL [facility] ([place] Comment: Interpretive Data Fasting glucose [...] 10.3 mg/dL [facility] ([place]) Bilirubin, total 0.4 0.1 - 1.2 mg/dL [facility] ([place]) Protein, pl 7.3 6.5 - 8.5 g/dL [facility] ([place]) Albumin 4.4 3.5 - 5.0 g/dL [facility] ([place]) Alk phos 101 40 - 130 Units/L [facility] ([place]) ALT 32 7 - 45 Units/L [facility] ([place]) AST 16 10 - 45 Units/L [facility] ([place]) Blood 12/06/2024 6:08 AM JOINT TERMINAL ATTACK CONTROLLER 12/06/2024 6:20 AM JOINT TERMINAL ATTACK CONTROLLER us Sanjeev Gonzales MD LAB BLOOD ORDERABLES Final Resu lt [facility] ([place]) 1 [facility] [place] [address] * POCT glucose (12/06/2024 2:54 AM JOINT TERMINAL ATTACK CONTROLLER) Glucose, POC 179 70 - 199 mg/dL Blood 12/06/2024 2:54 AM JOINT TERMINAL ATTACK CONTROLLER 12/06/2024 2:54 AM JOINT TERMINAL ATTACK CONTROLLER us Sampson Davenport II, MD LAB POCT ORDERABLES - DEVICE Final Result Performing Organization Address [facility]/ZIP Co de Phone Number [facility] ([place]) 1 [facility] [address] * (ABNORMAL) POCT glucose (12/05/2024 8:38 PM JOINT TERMINAL ATTACK CONTROLLER) Glucose, POC 259(H) 70 - 199 mg/dL Blood 12/05/2024 8:38 PM JOINT TERMINAL ATTACK CONTROLLER 12/05/2024 8:38 PM JOINT TERMINAL ATTACK CONTROLLER us Sampson Davenport II, MD LAB POCT ORDERABLES - DEVICE Final Result Performing Organization Address [facility] Co de Phone Number [facility] ([place]) 1 [facility] [place] [address] * POCT glucose (12/05/2024 5:15 PM JOINT TERMINAL ATTACK CONTROLLER) Glucose, POC 193 70 - 199 mg/dL Blood 12/05/2024 5:15 PM JOINT TERMINAL ATTACK CONTROLLER 12/05/2024 5:15 PM JOINT TERMINAL ATTACK CONTROLLER us Sampson Davenport II, MD LAB POCT ORDERABLES - DEVICE Final Result Performing Organization Address [facility] de Phone Number [facility] ([place]) 1 [facility] [place] [address] * (ABNORMAL) POCT glucose (12/05/2024 12:17 PM JOINT TERMINAL ATTACK CONTROLLER) Glucose, POC 209(H) 70 - 199 mg/dL Comment:Glu2: RN/ Notified Blood 12/05/2024 12:1 7 PM JOINT TERMINAL ATTACK CONTROLLER 12/05/2024 12:17 PM JOINT TERMINAL ATTACK CONTROLLER us Sampson Davenport II, MD LAB POCT ORDERABLES - DEVICE Final Result Performing Organization Address [facility] de Phone Number [facility] ([place]) 1 [facility] [place] [address] * (ABNORMAL) POCT glucose (12/05/2024 7:42 AM JOINT TERMINAL ATTACK CONTROLLER) Glucose, POC 254(H) 70 - 199 mg/dL Comment:Glu2: RN/ Notified Blood 12/05/2024 7:42 AM JOINT TERMINAL ATTACK CONTROLLER 12/05/2024 7:42 AM JOINT TERMINAL ATTACK CONTROLLER us Sampson Davenport II, MD LAB POCT ORDERABLES - DEVICE Final Result Performing Organization Address [facility] Co de Phone Number [facility] ([place]) 1 [facility] [place] [address] * eGFR (12/05/2024 5:47 AM JOINT TERMINAL ATTACK CONTROLLER) Pathologist [facility] eGFR >90 >=60 mL/min/1. 73 [...] interpretive data was last reviewed 2021. Blood 12/05/2024 5:47 AM JOINT TERMINAL ATTACK CONTROLLER 12/05/2024 6:10 AM JOINT TERMINAL ATTACK CONTROLLER us Sanjeev Gonzales MD LAB BLOOD ORDERABLES Final Resu lt [facility] ([place]) 1 [facility] [place] [address] * (ABNORMAL) Differential, auto (12/05/2024 5:47 AM JOINT TERMINAL ATTACK CONTROLLER) Neutrophil abs 8.9(H) 1.5 - 6.5 K/cumm Imm gran abs 0.2(H) 0.0 - 0.1 K/cumm [facility] ([place]) Lymphocyte abs 1.6 0.8 - 3.3 K/cumm [facility] ([place]) Monocyte abs 0.9(H) 0.2 - 0.8 K/cumm [facility] ([place]) Eosinophil abs 0.0 0.0 - 0.5 K/cumm [facility] ([place]) Basophil abs 0.1 0.0 - 0.1 K/cumm [facility] ([place]) Neutrophil pct 75.7 % [facility] ([place]) Comment: Interpretive Data Percent cell count reference ranges are not reported, since discordance with absolute values may lead to misinterpretation of CBC data. Current Interpretive Data was last revised on 2018. Imm gran pct 1.8 % [facility] ([place]) Comment: Interpretive Data Percent cell count reference ranges are not reported, since discordance with absolute values may lead to misinterpretation of CBC data. Current Interpretive Data was last revised on 2018. Lymphocyte pct 13.7 % [facility] ([place]) Comment: Interpretive Data Percent cell count reference ranges are not reported, since discordance with absolute values may lead to misinterpretation of CBC data. Current Interpretive Data was last revised on 2018. Monocyte pct 8.0 % [facility] ([place]) Comment: Interpretive Data Percent cell count reference ranges are not reported, since discordance with absolute values may lead to misinterpretation of CBC data. Current Interpretive Data was last revised on 2018. Eosinophil pct 0.2 % [facility] ([place]) Comment: Interpretive [...] Data was last revised on 2018. Blood 12/05/2024 5:47 AM [employer] 12/05/2024 6:10 AM [employer] us Sanjeev Gonzales MD LAB BLOOD ORDERABLES Final Resu lt [facility] ([place]) [facility] [place] [address] * (ABNORMAL) CBC with auto differential (12/05/2024 5:47 AM JOINT TERMINAL ATTACK CONTROLLER) WBC 11.7(H) 3.8 - 9.9 K/cumm Hgb 9.5(L) 11.9 - 15.5 g/dL [facility] ([place]) Hct 33.7(L) 35.6 - 45.5 % [facility] ([place]) Plt 406(H) 150 - 400 K/cumm [facility] ([place]) MPV 10.5 9.1 - 12.3 fL [facility] ([place]) RBC 4.02 3.90 - 5.20 M/cumm [facility] ([place]) MCV 83.8 81.3 - 96.4 fL [facility] ([place]) MCH 23.6(L) 27.1 - 33.3 pg [facility] ([place]) MCHC 28.2(L) 32.3 - 35.7 g/dL [facility] ([place]) RDW CV 22.7(H) 11.1 - 14.9 % [facility] ([place]) RDW SD 68.1(H) 35.7 - 48.1 fL [facility] ([place]) NRBC abs 0.00 0.00 - 0.01 K/cumm [facility] ([place]) Blood 12/05/2024 5:47 AM JOINT TERMINAL ATTACK CONTROLLER 12/05/2024 6:10 AM JOINT TERMINAL ATTACK CONTROLLER us Sanjeev Gonzales MD LAB BLOOD ORDERABLES Final Resu lt [facility] ([place]) [facility] [place] [address] * (ABNORMAL) aPTT (12/05/2024 5:47 AM JOINT TERMINAL ATTACK CONTROLLER) aPTT 92(H) 28 - 38 sec [facility] ([place]) Comment: Interpretive Data Heparin therapeutic range: 66.0 - 100.0 seconds. Range based on correlation with therapeutic heparin activity range of 0.3 - 0.7 Units/mL. Current interpretive data was last revised on 2023. Blood 12/05/2024 5:47 AM JOINT TERMINAL ATTACK CONTROLLER 12/05/2024 6:10 AM JOINT TERMINAL ATTACK CONTROLLER Narrative ALLY VAZQUEZN) - 12/05/2024 7:06 AM JOINT TERMINAL ATTACK CONTROLLER Do not draw lab from IV line that is actively infusing heparin. Use the opposite arm. If arm with actively infusing heparin must be used, pause the infusion for at least 2 minutes, and draw specimen below the IV site. For patients with a central venous catheter (CVC), lab must be drawn peripherally (not from CVC). Sanjeev Gonzales MD LAB BLOOD ORDERABLES Final Resu lt [facility] ([place]) [facility] [place] [address] * Magnesium (12/05/2024 5:47 AM JOINT TERMINAL ATTACK CONTROLLER) Magnesium 2.2 1.4 - 2.5 mg/dL Blood 12/05/2024 5:47 AM JOINT TERMINAL ATTACK CONTROLLER 12/05/2024 6:10 AM JOINT TERMINAL ATTACK CONTROLLER Sanjeev Gonzales MD LAB BLOOD ORDERABLES Final Resu lt [facility] ([place]) 1 [facility] [place] [address] * (ABNORMAL) Lipid panel (12/05/2024 5:47 AM JOINT TERMINAL ATTACK CONTROLLER) Cholesterol 142 30 - 199 mg/dL Comment: Interpretive Data [...] Data was last revised on 2018. Triglycerides 291(H) <=149 mg/dL [facility] ([place]) Comment: Interpretive [...] Data was last revised on 2018. HDL 37(L) >=40 mg/dL [facility] ([place]) Comment: Interpretive [...] was last revised on 2018. LDL, calculated 59 <=129 mg/dL [facility] ([place]) Comment: Interpretive [...] was last revised on 2024. Non-HDL Cholesterol 105 mg/dL [facility] ([place]) Comment: Interpretive Data Ages < or [...] was last revised on 2018. Chol/HDL ratio 4 [facility] ([place]) Blood 12/05/2024 5:47 AM JOINT TERMINAL ATTACK CONTROLLER 12/05/2024 6:10 AM JOINT TERMINAL ATTACK CONTROLLER us Franchesca Pierce MD LAB BLOOD ORDERABLES Final Res ult [facility] ([place]) [facility] Department of Laboratories [place], [place] [id number] * (ABNORMAL) Comprehensive metabolic panel (12/05/2024 5:47 AM JOINT TERMINAL ATTACK CONTROLLER) Sodium 143 135 - 145 mmol/L Potassium, pl 4.6 3.3 - 4.9 mmol/L [facility] ([place]) Chloride 97 97 - 110 mmol/L [facility] ([place]) CO2 34(H) 22 - 32 mmol/L [facility] ([place]) Anion gap 12 2 - 15 mmol/L [facility] ([place]) BUN 21 6 - 25 mg/dL [facility] ([place]) Creatinine 0.51(L) 0.60 - 1.10 mg/dL [facility] ([place]) Glucose 275(H) 70 - 199 mg/dL [facility] ([place]) [...] interpretive data was last revised 2022. Calcium 9.9 8.5 - 10.3 mg/dL [facility] ([place]) Bilirubin, total 0.3 0.1 - 1.2 mg/dL [facility] ([place]) Protein, pl 6.7 6.5 - 8.5 g/dL [facility] ([place]) Albumin 4.5 3.5 - 5.0 g/dL [facility] ([place]) Alk phos 97 40 - 130 Units/L [facility] ([place]) ALT 35 7 - 45 Units/L [facility] ([place]) AST 16 10 - 45 Units/L [facility] ([place]) Blood 12/05/2024 5:47 AM JOINT TERMINAL ATTACK CONTROLLER 12/05/2024 6:10 AM JOINT TERMINAL ATTACK CONTROLLER us Sanjeev Gonzales MD LAB BLOOD ORDERABLES Final Resu lt [facility] ([place]) [facility] [place] [address] * ECG 12 lead (12/05/2024 5:26 AM JOINT TERMINAL ATTACK CONTROLLER) 12/05/2024 5:26 AM JOINT TERMINAL ATTACK CONTROLLER Narrative [facility] - 12/06/2024 6:36 AM JOINT TERMINAL ATTACK CONTROLLER Vent Rate: 99 bpm RR Interval: 602 msec DE Interval: 349 msec QRS Duration: 98 msec QT Interval: 368 msec QTC Interval: 424 msec P-R-T [place]: -9 - -6 - 75 degrees IMPRESSION: Sinus rhythm with frequent PACs MODERATE VOLTAGE CRITERIA FOR LVH, CONSIDER NORMAL VARIANT [MEETS CRITERIA IN ONE OF: R(aVL), S(V1), R(V5), R(V5/V6)+S(V1)] NONSPECIFIC T-WAVE ABNORMALITY ABNORMAL RHYTHM ECG NO CHANGE FROM PREVIOUS TRACING NOTED Electronically Signed By: Doni Coles MD Sanjeev Gonzales MD ECG ORDERABLES Final Result Performing Organization Address City/[facility]/ZIP Co de Phone Number [facility] * (ABNORMAL) POCT glucose (12/05/2024 2:38 AM JOINT TERMINAL ATTACK CONTROLLER) Glucose, POC 308(H) 70 - 199 mg/dL Blood 12/05/2024 2:38 AM JOINT TERMINAL ATTACK CONTROLLER 12/05/2024 2:38 AM JOINT TERMINAL ATTACK CONTROLLER Sanjeev Gonzales MD LAB POCT ORDERABLES - DEVICE Fi nal Result Performing Organization Address [facility] Co de Phone Number [facility] ([place]) [address] [facility] [place] [address] * (ABNORMAL) aPTT (12/04/2024 11:06 PM JOINT TERMINAL ATTACK CONTROLLER) aPTT 54(H) 28 - 38 sec [facility] ([place]) Comment: Interpretive Data Heparin therapeutic range: 66.0 - 100.0 seconds. Range based on correlation with therapeutic heparin activity range of 0.3 - 0.7 Units/mL. Current interpretive data was last revised on 2023. Blood 12/04/2024 11:0 6 PM JOINT TERMINAL ATTACK CONTROLLER 12/04/2024 11:19 PM JOINT TERMINAL ATTACK CONTROLLER Franchesca Pierce MD LAB BLOOD ORDERABLES Final Res ult Performing Organization Address City/[facility] Co de Phone Number [facility] ([place]) [facility] [place] [address] * (ABNORMAL) Troponin T high-sensitivity 6-hour (12/04/2024 10:12 PM JOINT TERMINAL ATTACK CONTROLLER) Trop T hs 48(H) <=14 ng/L Comment: Interpretive Data For further hscTnT resources including the diagnostic algorithm and an aid in interpretation, copy and paste this link: https://nrl.testcatalog.org/show/hsTrop Current Interpretive Data last revised 2020. Trop T hs delta 7 ng/L [facility] ([place]) Trop T hs interp Equivocal [facility] ([place]) Blood 12/04/2024 10:1 2 PM JOINT TERMINAL ATTACK CONTROLLER 12/04/2024 10:15 PM JOINT TERMINAL ATTACK CONTROLLER Franchesca Pierce MD LAB BLOOD ORDERABLES Final Res ult Performing Organization Address City/[facility]/ZIP Co de Phone Number [facility] ([place]) [facility] [place] [address] * (ABNORMAL) POCT glucose (12/04/2024 9:00 PM JOINT TERMINAL ATTACK CONTROLLER) Glucose, POC 261(H) 70 - 199 mg/dL Blood 12/04/2024 9:00 PM JOINT TERMINAL ATTACK CONTROLLER 12/04/2024 9:00 PM JOINT TERMINAL ATTACK CONTROLLER Sanjeev Gonzales MD LAB POCT ORDERABLES - DEVICE Fi nal Result Performing Organization Address [facility] Co de Phone Number [facility] ([place]) [address] [facility] [place] [address] * (ABNORMAL) Troponin T high-sensitivity 4-hour (12/04/2024 8:32 PM JOINT TERMINAL ATTACK CONTROLLER) Trop T hs 48(H) <=14 ng/L Comment: Interpretive Data For further hscTnT resources including the diagnostic algorithm and an aid in interpretation, copy and paste this link: https://nrl.testcatalog.org/show/hsTrop Current Interpretive Data last revised 2020. Trop T hs delta 7 ng/L [facility] ([place]) Trop T hs interp Equivocal [facility] ([place]) Blood 12/04/2024 8:32 PM JOINT TERMINAL ATTACK CONTROLLER 12/04/2024 8:35 PM JOINT TERMINAL ATTACK CONTROLLER Franchesca Pierce MD LAB BLOOD ORDERABLES Final Res ult Performing Organization Address City/[facility]/ZIP Co de Phone Number ALLY [place]) 1 [facility] Department [place] [address] * (ABNORMAL) Troponin T high-sensitivity 2-hour (12/04/2024 6:02 PM JOINT TERMINAL ATTACK CONTROLLER) Trop T hs 48(H) <=14 ng/L Comment: Interpretive Data For further hscTnT resources including the diagnostic algorithm and an aid in interpretation, copy and paste this link: https://nrl.testcatalog.org/show/hsTrop Current Interpretive Data last revised 2020. Trop T hs delta 7 ng/L [facility] ([place]) Trop T hs interp Equivocal [facility] ([place]) Blood 12/04/2024 6:02 PM JOINT TERMINAL ATTACK CONTROLLER 12/04/2024 6:34 PM JOINT TERMINAL ATTACK CONTROLLER Franchesca Pierce MD LAB BLOOD ORDERABLES Final Res ult [facility] ([place]) [address] [facility] [place] [address] * eGFR (12/04/2024 4:12 PM JOINT TERMINAL ATTACK CONTROLLER) eGFR >90 >=60 mL/min/1. 73 m2 Comment: [...] interpretive data was last reviewed 2021. Blood 12/04/2024 4:12 PM JOINT TERMINAL ATTACK CONTROLLER 12/04/2024 4:27 PM JOINT TERMINAL ATTACK CONTROLLER Franchesca Pierce MD LAB BLOOD ORDERABLES Final Res ult Performing Organization Address [facility] Co de Phone Number ALLY CUM[facility] ([place]) 1 [facility] [place] [address] * (ABNORMAL) aPTT (12/04/2024 4:12 PM JOINT TERMINAL ATTACK CONTROLLER) aPTT 78(H) 28 - 38 [address] [facility] ([place] Comment: Interpretive Data Heparin therapeutic range: 66.0 - 100.0 seconds. Range based on correlation with therapeutic heparin activity range of 0.3 - 0.7 Units/mL. Current interpretive data was last revised on 2023. Blood 12/04/2024 4:12 PM JOINT TERMINAL ATTACK CONTROLLER 12/04/2024 4:27 PM JOINT TERMINAL ATTACK CONTROLLER Narrative [facility] ([place] - 12/04/2024 4:42 PM JOINT TERMINAL ATTACK CONTROLLER Baseline prior to heparin initiation Franchesca Pierce MD LAB BLOOD ORDERABLES Final Res ult Performing Organization Address [facility] Co de Phone Number ALLY CUM[facility] ([place]) [address] [facility] [place] [address] * (ABNORMAL) Protime-INR (12/04/2024 4:12 PM JOINT TERMINAL ATTACK CONTROLLER) PT 18.0(H) 9.7 - 13.0 sec [facility] ([place] INR 1.65(H) 0.90 - 1.20 [facility] ([place]) Comment: Interpretive data Oral anticoagulant therapeutic ranges: Venous thromboembolism prophylaxis or treatment: 2.0-3.0 CARDIOLOGY Standard range: 2.0-3.0 High-intensity range: 2.5-3.5 Refer to indication-specific guidelines for appropriate target ranges for prosthetic heart valve replacement. Current interpretive data was last revised on 2019. Blood 12/04/2024 4:12 PM JOINT TERMINAL ATTACK CONTROLLER 12/04/2024 4:27 PM JOINT TERMINAL ATTACK CONTROLLER Narrative [facility] ([place]) - 12/04/2024 4:42 PM JOINT TERMINAL ATTACK CONTROLLER Baseline prior to heparin initiation us Franchesca Pierce MD LAB BLOOD ORDERABLES Final Res ult [facility] ([place]) [facility] [place] [address] * (ABNORMAL) CBC without differential (12/04/2024 4:12 PM JOINT TERMINAL ATTACK CONTROLLER) WBC 14.7(H) 3.8 - 9.9 K/cumm Hgb 8.9(L) 11.9 - 15.5 g/dL [facility] ([place]) Hct 31.6(L) 35.6 - 45.5 % [facility] ([place]) Plt 424(H) 150 - 400 K/cumm [facility] ([place]) MPV 10.4 9.1 - 12.3 fL [facility] ([place]) RBC 3.80(L) 3.90 - 5.20 M/cumm [facility] ([place]) MCV 83.2 81.3 - 96.4 fL [facility] ([place]) MCH 23.4(L) 27.1 - 33.3 pg [facility] ([place]) MCHC 28.2(L) 32.3 - 35.7 g/dL [facility] ([place]) RDW CV 23.0(H) 11.1 - 14.9 % [facility] ([place]) RDW SD 68.5(H) 35.7 - 48.1 fL [facility] ([place]) NRBC abs 0.04(H) 0.00 - 0.01 K/cumm [facility] ([place]) Blood 12/04/2024 4:12 PM JOINT TERMINAL ATTACK CONTROLLER 12/04/2024 4:26 PM JOINT TERMINAL ATTACK CONTROLLER Narrative [facility] ([place]) - 12/04/2024 4:29 PM JOINT TERMINAL ATTACK CONTROLLER Baseline prior to heparin initiation us Franchesca Pierce MD LAB BLOOD ORDERABLES Final Res ult ALL[facility] ([place]) [address] [facility] [place] [address] * (ABNORMAL) Basic metabolic panel (12/04/2024 4:12 PM JOINT TERMINAL ATTACK CONTROLLER) [facility] Sodium 136 135 - 145 mmol/L Potassium, pl 4.4 3.3 - 4.9 mmol/L [facility] ([place]) Chloride 91(L) 97 - 110 mmol/L [facility] ([place]) CO2 29 22 - 32 mmol/L [facility] ([place]) Anion gap 16(H) 2 - 15 mmol/L [facility] ([place]) BUN 20 6 - 25 mg/dL [facility] ([place]) Creatinine 0.52(L) 0.60 - 1.10 mg/dL [facility] ([place]) Glucose 385(H) 70 - 199 mg/dL [facility] ([place]) Comment: Interpretive Data Fasting glucose [...] - 10.3 mg/dL [facility] ([place]) Blood 12/04/2024 4:12 PM JOINT TERMINAL ATTACK CONTROLLER 12/04/2024 4:27 PM JOINT TERMINAL ATTACK CONTROLLER us Franchesca Pierce MD LAB BLOOD ORDERABLES Final Res ult [facility] ([place]) [address] [facility] [place] [address] * (ABNORMAL) Troponin T high-sensitivity series (baseline, 2hr, 4hr, 6hr) (12/04/2024 4:08 PM JOINT TERMINAL ATTACK CONTROLLER) Trop T hs 41(H) <=14 ng/L Comment: Interpretive Data For further hscTnT resources including the diagnostic algorithm and an aid in interpretation, copy and paste this link: https://nrl.testcatalog.org/show/hsTrop Current Interpretive Data last revised 2020. Blood 12/04/2024 4:08 PM JOINT TERMINAL ATTACK CONTROLLER 12/04/2024 4:36 PM JOINT TERMINAL ATTACK CONTROLLER us Franchesca Pierce MD LAB BLOOD ORDERABLES Final Res ult [facility] ([address] [place] [address] * POCT glucose (11/30/2024 11:42 AM JOINT TERMINAL ATTACK CONTROLLER) Glucose, POC 121 70 - 199 mg/dL Blood 11/30/2024 11:4 2 AM JOINT TERMINAL ATTACK CONTROLLER 11/30/2024 11:42 AM JOINT TERMINAL ATTACK CONTROLLER us Hesham Madsen MD LAB POCT ORDERABLES - DEVICE Final Result Performing Organization Address [facility] Co de Phone Number ALLY [facility] Department [place] [address] * (ABNORMAL) POCT glucose (11/30/2024 7:37 AM JOINT TERMINAL ATTACK CONTROLLER) Glucose, POC 220(H) 70 - 199 mg/dL Blood 11/30/2024 7:37 AM JOINT TERMINAL ATTACK CONTROLLER 11/30/2024 7:37 AM JOINT TERMINAL ATTACK CONTROLLER Hesham Madsen MD LAB POCT ORDERABLES - DEVICE Final Result Performing Organization Address City/[facility]/ZIP Co de Phone Number ALLY [facility] [place] [address] * (ABNORMAL) POCT glucose (11/30/2024 2:12 AM JOINT TERMINAL ATTACK CONTROLLER) Glucose, POC 227(H) 70 - 199 mg/dL Blood 11/30/2024 2:12 AM JOINT TERMINAL ATTACK CONTROLLER 11/30/2024 2:12 AM JOINT TERMINAL ATTACK CONTROLLER Hesham Madsen MD LAB POCT ORDERABLES - DEVICE Final Result Performing Organization Address [facility] de Phone Number ALLY [facility] [place] [address] * eGFR (11/30/2024 12:02 AM JOINT TERMINAL ATTACK CONTROLLER) Pathologist [facility] eGFR >90 >=60 mL/min/1. 73 [...] reviewed 2021. Blood 11/30/2024 12:0 2 AM JOINT TERMINAL ATTACK CONTROLLER 11/30/2024 12:30 AM JOINT TERMINAL ATTACK CONTROLLER Hesham Madsen MD LAB BLOOD ORDERABLES Final R esult Performing Organization Address [facility] Co de Phone Number ALLY [facility] [place] [address] * (ABNORMAL) Basic metabolic panel (11/30/2024 12:02 AM JOINT TERMINAL ATTACK CONTROLLER) Pathologist [facility] Sodium 143 135 - 145 mmol/L Potassium, pl 4.4 3.3 - 4.9 mmol/L [facility] Comment:Repeated and Verifie d Chloride 101 97 - 110 mmol/L [facility] CO2 36(H) 22 - 32 mmol/L [facility] Anion gap 6 2 - 15 mmol/L [facility] BUN 23 6 - 25 mg/dL [facility] Creatinine 0.47(L) 0.60 - 1.10 mg/dL [facility] Glucose 171 70 - 199 mg/dL [facility] Comment: Interpretive Data Fasting glucose >/= [...] 2022. Calcium 9.1 8.5 - 10.3 mg/dL [facility] Comment:Reviewed Blood 11/30/2024 12:0 2 AM JOINT TERMINAL ATTACK CONTROLLER 11/30/2024 12:30 AM JOINT TERMINAL ATTACK CONTROLLER Hesham Madsen MD LAB BLOOD ORDERABLES Final R esult Performing Organization Address City/[facility]/ZIP Co de Phone Number [facility] [place] [address] * (ABNORMAL) POCT glucose (11/29/2024 9:58 PM JOINT TERMINAL ATTACK CONTROLLER) Glucose, POC 207(H) 70 - 199 mg/dL Blood 11/29/2024 9:58 PM JOINT TERMINAL ATTACK CONTROLLER 11/29/2024 9:58 PM JOINT TERMINAL ATTACK CONTROLLER Hesham Madsen MD LAB POCT ORDERABLES - DEVICE Final Result Performing Organization Address [facility] Co de Phone Number [facility] Department [place] [address] * eGFR (11/29/2024 8:56 PM JOINT TERMINAL ATTACK CONTROLLER) Pathologist [facility] eGFR See Comment >=60 Comment: Interpretive Data [...] last reviewed 2021. Blood 11/29/2024 8:56 PM JOINT TERMINAL ATTACK CONTROLLER 11/29/2024 9:58 PM JOINT TERMINAL ATTACK CONTROLLER Manisha Williamson NP LAB BLOOD ORDERABLES Edited Result - Final [facility] Department [place] [address] * (ABNORMAL) Differential, auto (11/29/2024 8:56 PM JOINT TERMINAL ATTACK CONTROLLER) Pathologist [facility] Neutrophil abs 7.2(H) 1.5 - 6.5 K/cumm Imm gran abs 0.2(H) 0.0 - 0.1 K/cumm [facility] Lymphocyte abs 2.1 0.8 - 3.3 K/cumm [facility] Monocyte abs 0.7 0.2 - 0.8 K/cumm [facility] Eosinophil abs 0.0 0.0 - 0.5 K/cumm [facility] Basophil abs 0.0 0.0 - 0.1 K/cumm [facility] Neutrophil pct 70.6 % [facility] Comment: Interpretive Data Percent cell count reference ranges are not reported, since discordance with absolute values may lead to misinterpretation of CBC data. Current Interpretive Data was last revised on 2018. Imm gran pct 1.8 % [facility] Comment: Interpretive Data Percent cell count reference ranges are not reported, since discordance with absolute values may lead to misinterpretation of CBC data. Current Interpretive Data was last revised on 2018. Lymphocyte pct 20.4 % [facility] Comment: Interpretive Data Percent cell count reference ranges are not reported, since discordance with absolute values may lead to misinterpretation of CBC data. Current Interpretive Data was last revised on 2018. Monocyte pct 6.7 % [facility] Comment: Interpretive Data Percent cell count reference ranges are not reported, since discordance with absolute values may lead to misinterpretation of CBC data. Current Interpretive Data was last revised on 2018. Eosinophil pct 0.4 % [facility] Comment: Interpretive Data Percent cell count reference ranges are not reported, since discordance with absolute values may lead to misinterpretation of CBC data. Current Interpretive Data was last revised on 2018. Basophil pct 0.1 % [facility] Comment: Interpretive Data Percent cell count reference ranges are not reported, since discordance with absolute values may lead to misinterpretation of CBC data. Current Interpretive Data was last revised on 2018. Blood 11/29/2024 8:56 PM JOINT TERMINAL ATTACK CONTROLLER 11/29/2024 9:45 PM JOINT TERMINAL ATTACK CONTROLLER Manisha Williamson NP LAB BLOOD ORDERABLES Final Result [facility] Department [place] [address] * Critical Result Callback Chemistry (11/29/2024 8:56 PM JOINT TERMINAL ATTACK CONTROLLER) Date Notified [id number] Time Notified 2333 [facility]ODARD TestName Potassium, Calcium ALLY STEWART Called/Read Back [place] WOODARD Credentials RN GIFTYSALVATORE [facility] Called By CHASITY [facility] Blood 11/29/2024 8:56 PM JOINT TERMINAL ATTACK CONTROLLER 11/29/2024 9:58 PM JOINT TERMINAL ATTACK CONTROLLER Manisha Williamson NP LAB BLOOD ORDERABLES Final Result Performing Organization Address [facility]/ZIP Co de Phone Number [facility] [place] [address] * (ABNORMAL) CBC with auto differential (11/29/2024 8:56 PM JOINT TERMINAL ATTACK CONTROLLER) WBC 10.2(H) 3.8 - 9.9 K/cumm Hgb 9.2(L) 11.9 - 15.5 g/dL [facility] Hct 33.3(L) 35.6 - 45.5 % [facility] Plt 370 150 - 400 K/cumm [facility] MPV 10.7 9.1 - 12.3 fL [facility] RBC 4.03 3.90 - 5.20 M/cumm [facility] MCV 82.6 81.3 - 96.4 fL [facility] MCH 22.8(L) 27.1 - 33.3 pg [facility] MCHC 27.6(L) 32.3 - 35.7 g/dL [facility] RDW CV 22.9(H) 11.1 - 14.9 % [facility] RDW SD 67.7(H) 35.7 - 48.1 fL [facility] NRBC abs 0.04(H) 0.00 - 0.01 K/cumm [facility] Blood 11/29/2024 8:56 PM JOINT TERMINAL ATTACK CONTROLLER 11/29/2024 9:45 PM JOINT TERMINAL ATTACK CONTROLLER Manisha Williamson NP LAB BLOOD ORDERABLES Final Result Performing Organization Address City/[facility]/ZIP Co de Phone Number [facility] [place] [address] * (ABNORMAL) Protime-INR (11/29/2024 8:56 PM JOINT TERMINAL ATTACK CONTROLLER) PT 28.0(H) 9.7 - 13.0 sec INR 2.54(H) 0.90 - 1.20 [facility] Comment: Interpretive data Oral anticoagulant therapeutic ranges: Venous thromboembolism prophylaxis or treatment: 2.0-3.0 CARDIOLOGY Standard range: 2.0-3.0 High-intensity range: 2.5-3.5 Refer to indication-specific guidelines for appropriate target ranges for prosthetic heart valve replacement. Current interpretive data was last revised on 2019. Blood 11/29/2024 8:56 PM JOINT TERMINAL ATTACK CONTROLLER 11/29/2024 9:45 PM JOINT TERMINAL ATTACK CONTROLLER Hesham Madsen MD LAB BLOOD ORDERABLES Final R esult [facility] Department [place] [address] * Basic metabolic panel (11/29/2024 8:56 PM JOINT TERMINAL ATTACK CONTROLLER) Sodium See Comment 135 - 145 mmol/L Comment:Credited: Sample inv estigated and is suggestive of an improper collection (e.g., IV fluid contamination, improper tube type). Deleted at the Request of Kingston Fulton RN on 11/29/2024 23:33:56 JOINT TERMINAL ATTACK CONTROLLER by . Potassium, pl See Comment 3.3 - 4.9 mmol/L [facility] Comment: Hemolyzed; Potassium value may be falsely elevated by as much as 0.3-0.5 mmol/L. Suggest redraw and reanalysis. Credited: Sample investigated and is suggestive of an improper collection (e.g., IV fluid contamination, improper tube type). Deleted at the Request of Kingston Fulton RN on 11/29/2024 23:33:56 JOINT TERMINAL ATTACK CONTROLLER by . Chloride See Comment 97 - 110 mmol/L [facility] Comment:Credited: Sample inv estigated and is suggestive of an improper collection (e.g., IV fluid contamination, improper tube type). Deleted at the Request of Kingston Fulton RN on 11/29/2024 23:33:56 JOINT TERMINAL ATTACK CONTROLLER by RV . CO2 See Comment 22 - 32 mmol/L [facility] Comment:Credited: Sample inv estigated and is suggestive of an improper collection (e.g., IV fluid contamination, improper tube type). Deleted at the Request of Kingston Fulton RN on 11/29/2024 23:33:56 [employer] CONTROLLER by RV . Anion gap See Comment 2 - 15 mmol/L [facility] Comment:Credited: Sample inv estigated and is suggestive of an improper collection (e.g., IV fluid contamination, improper tube type). Deleted at the Request of Kingston Fulton RN on 11/29/2024 23:33:56 [employer] ATT[employer] CONTROLLER by RV . BUN See Comment 6 - 25 mg/dL [facility] Comment:Credited: Sample inv estigated and is suggestive of an improper collection (e.g., IV fluid contamination, improper tube type). Deleted at the Request of Kingston Fulton RN on 11/29/2024 23:33:56 [employer] ATT[employer] CONTROLLER by RV . Creatinine See Comment 0.60 - 1.10 mg/dL [facility] Comment:Credited: Sample inv estigated and is suggestive of an improper collection (e.g., IV fluid contamination, improper tube type). Deleted at the Request of Kingston Fulton RN on 11/29/2024 23:33:56 [employer] ATT[employer] CONTROLLER by RV . Glucose See Comment 70 - 199 mg/dL [facility] Comment: Credited: Sample investigated and is suggestive of an improper collection (e.g., IV fluid contamination, improper tube type). Deleted at the Request of Kingston Fulton RN on 11/29/2024 23:33:56 JOINT [employer] ATT[employer] CONTROLLER by RV . Interpretive Data Fasting glucose [...] Calcium See Comment 8.5 - 10.3 mg/dL [facility] Comment:Credited: Sample inv estigated and is suggestive of an improper collection (e.g., IV fluid contamination, improper tube type). Deleted at the Request of Kingston Fulton RN on 11/29/2024 23:33:56 [employer] CONTROLLER by RV . Blood 11/29/2024 8:56 PM [employer] ATT[employer] CONTROLLER 11/29/2024 9:45 PM [employer] CONTROLLER Manisha Williamson NP LAB BLOOD ORDERABLES Edited Result - Final Performing Organization Address [facility] Co de Phone Number [facility] [place] [address] * POCT glucose (11/29/2024 7:29 PM JO[employer] ATTACK CONTROLLER) Glucose, POC 182 70 - 199 mg/dL Blood 11/29/2024 7:29 PM [employer] ATT[employer] CONTROLLER 11/29/2024 7:29 PM [employer] ATTACK CONTROLLER Result [facility] Hesham Madsen MD LAB POCT ORDERABLES - DEVICE Final Result Performing Organization Address [facility] Co de Phone Number [facility] Department [place] [address] * POCT glucose (11/29/2024 5:12 PM JO[employer] ATTACK CONTROLLER) Glucose, POC 128 70 - 199 mg/dL Blood 11/29/2024 5:12 PM [employer] CONTROLLER 11/29/2024 5:12 PM [employer] CONTROLLER Hesham Madsen MD LAB POCT ORDERABLES - DEVICE Final Result Performing Organization Address City/[facility] Co de Phone Number [facility] [place] [address] * POCT glucose (11/29/2024 11:17 AM JOINT TERMIN[employer] ATTACK CONTROLLER) Glucose, POC 189 70 - 199 mg/dL Blood 11/29/2024 11:1 7 AM [employer] CONTROLLER 11/29/2024 11:17 AM JOINT [employer] ATTACK CONTROLLER Result Stacie Madsen MD LAB POCT ORDERABLES - DEVICE Final Result Performing Organization Address [facility] de Phone Number [facility] [place] [address] * POCT glucose (11/29/2024 7:42 AM JO[employer] ATTACK CONTROLLER) Glucose, POC 149 70 - 199 mg/dL Blood 11/29/2024 7:42 AM JO[employer] ATT[employer] CONTROLLER 11/29/2024 7:42 AM JO[employer] ATTACK CONTROLLER Result Stacie Madsen MD LAB POCT ORDERABLES - DEVICE Final Result Performing Organization Address [facility] de Phone Number [facility] [place] [address] * POCT glucose (11/29/2024 2:07 AM JOINT [employer]MIN[employer] ATTACK CONTROLLER) Glucose, POC 163 70 - 199 mg/dL Blood 11/29/2024 2:07 AM [employer] ATT[employer] CONTROLLER 11/29/2024 2:07 AM JO[employer] ATTACK CONTROLLER Result Stacie Madsen MD LAB POCT ORDERABLES - DEVICE Final Result Performing Organization Address [facility] de Phone Number [facility] [place] [address] * (ABNORMAL) POCT glucose (11/29/2024 12:02 AM JOINT TER[employer] ATT[employer] CONTROLLER) Glucose, POC 202(H) 70 - 199 mg/dL Blood 11/29/2024 12:0 2 AM [employer] ATT[employer] CONTROLLER 11/29/2024 12:02 AM JO[employer] ATT[employer] CONTROLLER us Hesham Madsen MD LAB POCT ORDERABLES - DEVICE Final Result Performing Organization Address [facility] Co de Phone [facility] [place] [address] * eGFR (11/28/2024 9:54 PM JO[employer] ATT[employer] CONTROLLER) eGFR >90 >=60 mL/min/1. 73 m2 Comment: [...] last reviewed 2021. Blood 11/28/2024 9:54 PM [employer] CONTROLLER 11/28/2024 10:52 PM [employer] ATT[employer] CONTROLLER Manisha Williamson NP LAB BLOOD ORDERABLES Final Result Performing Organization Address [facility] Co de Phone Number [facility] [place] [address] * (ABNORMAL) Differential, auto (11/28/2024 9:54 PM JO[employer] ATT[employer] CONTROLLER) Neutrophil abs 6.3 1.5 - 6.5 K/cumm Imm gran abs 0.2(H) 0.0 - 0.1 K/cumm [facility] Lymphocyte abs 1.1 0.8 - 3.3 K/cumm [facility] Monocyte abs 0.5 0.2 - 0.8 K/cumm [facility] Eosinophil abs 0.0 0.0 - 0.5 K/cumm [facility] Basophil abs 0.0 0.0 - 0.1 K/cumm [facility] Neutrophil pct 78.3 % [facility] Comment: Interpretive Data Percent cell count reference ranges are not reported, since discordance with absolute values may lead to misinterpretation of CBC data. Current Interpretive Data was last revised on 2018. Imm gran pct 2.0 % [facility] Comment: Interpretive Data Percent cell count reference ranges are not reported, since discordance with absolute values may lead to misinterpretation of CBC data. Current Interpretive Data was last revised on 2018. Lymphocyte pct 13.6 % [facility] Comment: Interpretive Data Percent cell count reference ranges are not reported, since discordance with absolute values may lead to misinterpretation of CBC data. Current Interpretive Data was last revised on 2018. Monocyte pct 5.8 % [facility] Comment: Interpretive Data Percent cell count reference ranges are not reported, since discordance with absolute values may lead to misinterpretation of CBC data. Current Interpretive Data was last revised on 2018. Eosinophil pct 0.2 % [facility] Comment: Interpretive Data Percent cell count reference ranges are not reported, since discordance with absolute values may lead to misinterpretation of CBC data. Current Interpretive Data was last revised on 2018. Basophil pct 0.1 % [facility] Comment: Interpretive Data Percent cell count reference ranges are not reported, since discordance with absolute values may lead to misinterpretation of CBC data. Current Interpretive Data was last revised on 2018. Blood 11/28/2024 9:54 PM [employer] ATT[employer] CONTROLLER 11/28/2024 10:53 PM JO[employer] ATT[employer] CONTROLLER Manisha Williamosn NP LAB BLOOD ORDERABLES Final Result [facility] Department [place] [address] * (ABNORMAL) CBC with auto differential (11/28/2024 9:54 PM JOINT [employer] ATTACK CONTROLLER) WBC 8.1 3.8 - 9.9 K/cumm Hgb 8.7(L) 11.9 - 15.5 g/dL [facility] Hct 31.5(L) 35.6 - 45.5 % [facility] Plt 360 150 - 400 K/cumm [facility] MPV 10.9 9.1 - 12.3 fL [facility] RBC 3.84(L) 3.90 - 5.20 M/cumm [facility] MCV 82.0 81.3 - 96.4 fL [facility] MCH 22.7(L) 27.1 - 33.3 pg [facility] MCHC 27.6(L) 32.3 - 35.7 g/dL [facility] RDW CV 22.9(H) 11.1 - 14.9 % [facility] RDW SD 67.8(H) 35.7 - 48.1 fL [facility] NRBC abs 0.04(H) 0.00 - 0.01 K/cumm [facility] Blood 11/28/2024 9:54 PM JO[employer] CONTROLLER 11/28/2024 10:53 PM JO[employer] ATT[employer] CONTROLLER Manisha Williamson NP LAB BLOOD ORDERABLES Final Result [facility] Department [place] [address] * (ABNORMAL) Protime-INR (11/28/2024 9:54 PM JOINT [employer]MIN[employer] ATTACK CONTROLLER) Pathologist [facility] PT 33.7(H) 9.7 - 13.0 sec INR 3.05(H) 0.90 - 1.20 [facility] Comment: Interpretive data Oral anticoagulant therapeutic ranges: Venous thromboembolism prophylaxis or treatment: 2.0-3.0 CARDIOLOGY Standard range: 2.0-3.0 High-intensity range: 2.5-3.5 Refer to indication-specific guidelines for appropriate target ranges for prosthetic heart valve replacement. Current interpretive data was last revised on 2019. Blood 11/28/2024 9:54 PM JO[employer] ATT[employer] CONTROLLER 11/28/2024 11:04 PM JO[employer] ATT[employer] CONTROLLER Hesham Madsen MD LAB BLOOD ORDERABLES Final R esult [facility] Department [place] [address] * (ABNORMAL) Basic metabolic panel (11/28/2024 9:54 PM JOINT TERMINAL ATTACK CONTROLLER) [facility] Sodium 141 135 - 145 mmol/L Potassium, pl 3.4 3.3 - 4.9 mmol/L [facility] Chloride 99 97 - 110 mmol/L [facility] CO2 33(H) 22 - 32 mmol/L [facility] Anion gap 9 2 - 15 mmol/L [facility] BUN 20 6 - 25 mg/dL [facility] Creatinine 0.45(L) 0.60 - 1.10 mg/dL [facility] Glucose 282(H) 70 - 199 mg/dL [facility] Comment: Interpretive Data Fasting glucose >/= [...] 2022. Calcium 8.4(L) 8.5 - 10.3 mg/dL [facility] Blood 11/28/2024 9:54 PM JOINT TER[employer]AL ATT[employer] CONTROLLER 11/28/2024 10:52 PM JOINT [employer]MINAL ATTACK CONTROLLER Manisha Williamson NP LAB BLOOD ORDERABLES Final Result Performing Organization Address [facility]/ZIP Co de Phone Number [facility] Department [place] [address] * (ABNORMAL) POCT glucose (11/28/2024 7:26 PM JOINT TERMINAL ATTACK CONTROLLER) Glucose, POC 319(H) 70 - 199 mg/dL Blood 11/28/2024 7:26 PM JOINT [employer]MINAL ATTACK CONTROLLER 11/28/2024 7:26 PM JOINT TERMINAL ATTACK CONTROLLER Result [facility] Hesham Madsen MD LAB POCT ORDERABLES - DEVICE Final Result Performing Organization Address [facility] de Phone Number [facility] [place] [address] * POCT glucose (11/28/2024 6:16 PM JOINT TERMINAL ATTACK CONTROLLER) Glucose, POC 115 70 - 199 mg/dL Blood 11/28/2024 6:16 PM JOINT TERMINAL ATTACK CONTROLLER 11/28/2024 6:16 PM JOINT TERMINAL ATTACK CONTROLLER Hesham Madsen MD LAB POCT ORDERABLES - DEVICE Final Result Performing Organization Address [facility] de Phone Number [facility] [place] [address] * POCT glucose (11/28/2024 5:01 PM JOINT TERMINAL ATTACK CONTROLLER) Glucose, POC 70 70 - 199 mg/dL Blood 11/28/2024 5:01 PM JOINT [employer]AL ATTACK CONTROLLER 11/28/2024 5:01 PM JOINT TERMINAL ATTACK CONTROLLER Result [facility] Hesham Madsen MD LAB POCT ORDERABLES - DEVICE Final Result Performing Organization Address [facility] de Phone Number [facility] [place] [address] * (ABNORMAL) POCT glucose (11/28/2024 11:19 AM JOINT TERMINAL ATTACK CONTROLLER) Glucose, POC 280(H) 70 - 199 mg/dL Comment:Glu2: RN/ Notified Glucose comment 1 Glu2: RAMYA/ Notified [facility] Blood 11/28/2024 11:1 9 AM JOINT TERMINAL ATTACK CONTROLLER 11/28/2024 11:19 AM JOINT TERMINAL ATTACK CONTROLLER Hesham Madsen MD LAB POCT ORDERABLES - DEVICE Final Result Performing Organization Address [facility] Co de Phone Number [facility] [place] [address] * (ABNORMAL) POCT glucose (11/28/2024 7:20 AM JOINT TERMINAL ATTACK CONTROLLER) Glucose, POC 247(H) 70 - 199 mg/dL Comment:Glu2: RN/ Notified Glucose comment 1 Glu2: RN/ Notified [facility] Blood 11/28/2024 7:20 AM JOINT TERMINAL ATTACK CONTROLLER 11/28/2024 7:20 AM JOINT TERMINAL ATTACK CONTROLLER us Hesham Madsen MD LAB POCT ORDERABLES - DEVICE Final Result Performing Organization Address [facility] de Phone Number [facility] [place] [address] * (ABNORMAL) POCT glucose (11/28/2024 2:02 AM JOINT TERMINAL ATTACK CONTROLLER) Glucose, POC 303(H) 70 - 199 mg/dL Blood 11/28/2024 2:02 AM JOINT TERMINAL ATTACK CONTROLLER 11/28/2024 2:02 AM JOINT TERMINAL ATTACK CONTROLLER Hesham Madsen MD LAB POCT ORDERABLES - DEVICE Final Result Performing Organization Address [facility] [place] [address] * POCT glucose (11/27/2024 10:58 PM JOINT TERMINAL ATTACK CONTROLLER) Glucose, POC 150 70 - 199 mg/dL Blood 11/27/2024 10:5 8 PM JOINT [employer]MINAL ATTACK CONTROLLER 11/27/2024 10:58 PM JOINT [employer]MINAL ATTACK CONTROLLER Hesham Madsen MD LAB POCT ORDERABLES - DEVICE Final Result Performing Organization Address [facility] Co de Phone Number [facility] Department [place] [address] * eGFR (11/27/2024 9:47 PM JOINT TERMINAL ATTACK CONTROLLER) Pathologist [facility] eGFR >90 >=60 mL/min/1. 73 [...] last reviewed 2021. Blood 11/27/2024 9:47 PM JOINT [employer] ATTACK CONTROLLER 11/27/2024 10:39 PM JO[employer]AL ATTACK CONTROLLER Manisha Williamson NP LAB BLOOD ORDERABLES Final Result Performing Organization Address City/[facility]/ZIP Co de Phone Number [facility] Department [place] [address] * Differential, auto (11/27/2024 9:47 PM JOINT TERMINAL ATTACK CONTROLLER) [facility] Neutrophil abs 5.9 1.5 - 6.5 K/cumm Imm gran abs 0.1 0.0 - 0.1 K/cumm [facility] Lymphocyte abs 1.3 0.8 - 3.3 K/cumm [facility] Monocyte abs 0.7 0.2 - 0.8 K/cumm [facility] Eosinophil abs 0.0 0.0 - 0.5 K/cumm [facility] Basophil abs 0.0 0.0 - 0.1 K/cumm [facility] Neutrophil pct 73.6 % [facility] Comment: Interpretive Data Percent cell count reference ranges are not reported, since discordance with absolute values may lead to misinterpretation of CBC data. Current Interpretive Data was last revised on 2018. Imm gran pct 1.5 % [facility] Comment: Interpretive Data Percent cell count reference ranges are not reported, since discordance with absolute values may lead to misinterpretation of CBC data. Current Interpretive Data was last revised on 2018. Lymphocyte pct 16.2 % [facility] Comment: Interpretive Data Percent cell count reference ranges are not reported, since discordance with absolute values may lead to misinterpretation of CBC data. Current Interpretive Data was last revised on 2018. Monocyte pct 8.2 % [facility] Comment: Interpretive Data Percent cell count reference ranges are not reported, since discordance with absolute values may lead to misinterpretation of CBC data. Current Interpretive Data was last revised on 2018. Eosinophil pct 0.4 % [facility] Comment: Interpretive Data Percent cell count reference ranges are not reported, since discordance with absolute values may lead to misinterpretation of CBC data. Current Interpretive Data was last revised on 2018. Basophil pct 0.1 % [facility] Comment: Interpretive Data Percent cell count reference ranges are not reported, since discordance with absolute values may lead to misinterpretation of CBC data. Current Interpretive Data was last revised on 2018. Blood 11/27/2024 9:47 PM JOINT [employer] ATTACK CONTROLLER 11/27/2024 10:05 PM JOINT [employer]MINAL ATTACK CONTROLLER Manisha Williamson NP LAB BLOOD ORDERABLES Final Result [facility] Department [place] [address] * (ABNORMAL) CBC with auto differential (11/27/2024 9:47 PM JOINT TERMINAL ATTACK CONTROLLER) Pathologist [facility] WBC 8.1 3.8 - 9.9 K/cumm Hgb 8.4(L) 11.9 - 15.5 g/dL [facility] Hct 31.0(L) 35.6 - 45.5 % [facility] Plt 343 150 - 400 K/cumm [facility] MPV 10.4 9.1 - 12.3 fL [facility] RBC 3.73(L) 3.90 - 5.20 M/cumm [facility] MCV 83.1 81.3 - 96.4 fL [facility] MCH 22.5(L) 27.1 - 33.3 pg [facility] MCHC 27.1(L) 32.3 - 35.7 g/dL [facility] RDW CV 23.2(H) 11.1 - 14.9 % [facility] RDW SD 69.7(H) 35.7 - 48.1 fL [facility] NRBC abs 0.03(H) 0.00 - 0.01 K/cumm [facility] Blood 11/27/2024 9:47 PM JOINT [employer]AL ATT[employer] CONTROLLER 11/27/2024 10:05 PM JOINT [employer]AL ATTACK CONTROLLER Manisha Williamson NP LAB BLOOD ORDERABLES Final Result [facility] Department [place] [address] * (ABNORMAL) Protime-INR (11/27/2024 9:47 PM JOINT TERMINAL ATTACK CONTROLLER) Pathologist [facility] PT 34.7(H) 9.7 - 13.0 sec INR 3.14(H) 0.90 - 1.20 [facility] Comment: Interpretive data Oral anticoagulant therapeutic ranges: Venous thromboembolism prophylaxis or treatment: 2.0-3.0 CARDIOLOGY Standard range: 2.0-3.0 High-intensity range: 2.5-3.5 Refer to indication-specific guidelines for appropriate target ranges for prosthetic heart valve replacement. Current interpretive data was last revised on 2019. Blood 11/27/2024 9:47 PM JOINT TERMINAL ATTACK CONTROLLER 11/27/2024 10:15 PM JOINT [employer]MINAL ATTACK CONTROLLER Hesham Madsen MD LAB BLOOD ORDERABLES Final R esult [facility] Department [place] [address] * (ABNORMAL) Basic metabolic panel (11/27/2024 9:47 PM JOINT TERMINAL ATTACK CONTROLLER) Sodium 144 135 - 145 mmol/L Potassium, pl 4.4 3.3 - 4.9 mmol/L [facility] Comment:Hemolyzed; Potassium value may be falsely elevated by as much as 0.6-1.0 mmol/L. Suggest redraw and reanalysis. Chloride 101 97 - 110 mmol/L [facility] CO2 35(H) 22 - 32 mmol/L [facility] Anion gap 8 2 - 15 mmol/L [facility] BUN 22 6 - 25 mg/dL [facility] Creatinine 0.44(L) 0.60 - 1.10 mg/dL [facility] Glucose 156 70 - 199 mg/dL [facility] Comment: Interpretive Data Fasting glucose >/= [...] 2022. Calcium 9.0 8.5 - 10.3 mg/dL [facility] Blood 11/27/2024 9:47 PM JOINT TERMINAL ATTACK CONTROLLER 11/27/2024 10:39 PM JOINT [employer]MINAL ATTACK CONTROLLER Manisha Williamson NP LAB BLOOD ORDERABLES Final Result Performing Organization Address [facility] de Phone Number [facility] [place] [address] * (ABNORMAL) POCT glucose (11/27/2024 8:31 PM JOINT TERMINAL ATTACK CONTROLLER) Glucose, POC 219(H) 70 - 199 mg/dL Blood 11/27/2024 8:31 PM JOINT TERMINAL ATTACK CONTROLLER 11/27/2024 8:31 PM JOINT [employer]AL ATTACK CONTROLLER Hesham Madsen MD LAB POCT ORDERABLES - DEVICE Final Result Performing Organization Address [facility] de Phone Number [facility] Department [place] [address] * POCT glucose (11/27/2024 4:59 PM JOINT TERMINAL ATTACK CONTROLLER) Glucose, POC 96 70 - 199 mg/dL Blood 11/27/2024 4:59 PM JOINT TERMINAL ATTACK CONTROLLER 11/27/2024 4:59 PM JOINT TERMINAL ATTACK CONTROLLER Hesham Madsen MD LAB POCT ORDERABLES - DEVICE Final Result Performing Organization Address [facility] de Phone Number [facility] Department [place] [address] * (ABNORMAL) POCT glucose (11/27/2024 11:42 AM JOINT TERMINAL ATTACK CONTROLLER) Glucose, POC 246(H) 70 - 199 mg/dL Comment:Glu2: RN/MD Notified Glucose comment 1 Glu2: RN/MD Notified [facility] Blood 11/27/2024 11:4 2 AM JOINT TERMINAL ATTACK CONTROLLER 11/27/2024 11:42 AM JOINT TERMINAL ATTACK CONTROLLER Hesham Madsen MD LAB POCT ORDERABLES - DEVICE Final Result Performing Organization Address [facility] Co de Phone Number [facility] Department [place] [address] * (ABNORMAL) POCT glucose (11/27/2024 7:21 AM JOINT TERMINAL ATTACK CONTROLLER) Glucose, POC 238(H) 70 - 199 mg/dL Comment:Glu2: RN/MD Notified Glucose comment 1 Glu2: RN/MD Notified [facility] Blood 11/27/2024 7:21 AM JOINT TERMINAL ATTACK CONTROLLER 11/27/2024 7:21 AM JOINT TERMINAL ATTACK CONTROLLER Hesham Madsen MD LAB POCT ORDERABLES - DEVICE Final Result Performing Organization Address City/[facility]/[place] [address] * (ABNORMAL) POCT glucose (11/27/2024 4:10 AM JOINT TERMINAL ATTACK CONTROLLER) Glucose, POC 263(H) 70 - 199 mg/dL Blood 11/27/2024 4:10 AM JOINT TERMINAL ATTACK CONTROLLER 11/27/2024 4:10 AM JOINT TERMINAL ATTACK CONTROLLER Hesham Madsen MD LAB POCT ORDERABLES - DEVICE Final Result Performing Organization Address City/[facility]/[place] [address] * POCT glucose (11/26/2024 11:38 PM JOINT TERMINAL ATTACK CONTROLLER) Glucose, POC 84 70 - 199 mg/dL Blood 11/26/2024 11:3 8 PM JOINT TERMINAL ATTACK CONTROLLER 11/26/2024 11:38 PM JOINT TERMINAL ATTACK CONTROLLER Hesham Madsen MD LAB POCT ORDERABLES - DEVICE Final Result Performing Organization Address City/[facility]/ZIP Co de Phone Number [facility] [place] [address] * eGFR (11/26/2024 9:00 PM JOINT TERMINAL ATTACK CONTROLLER) [facility] eGFR >90 >=60 mL/min/1. 73 m2 Comment: [...] last reviewed 2021. Blood 11/26/2024 9:00 PM JOINT TERMINAL ATTACK CONTROLLER 11/26/2024 9:50 PM JOINT [employer]MINAL ATTACK CONTROLLER Manisha Williamson NP LAB BLOOD ORDERABLES Final Result [facility] Department [place] [address] * (ABNORMAL) Differential, auto (11/26/2024 9:00 PM JOINT TERMINAL ATTACK CONTROLLER) [facility] Neutrophil abs 7.8(H) 1.5 - 6.5 K/cumm Imm gran abs 0.1 0.0 - 0.1 K/cumm [facility] Lymphocyte abs 1.0 0.8 - 3.3 K/cumm [facility] Monocyte abs 0.7 0.2 - 0.8 K/cumm [facility] Eosinophil abs 0.0 0.0 - 0.5 K/cumm [facility] Basophil abs 0.0 0.0 - 0.1 K/cumm [facility] Neutrophil pct 81.0 % [facility] Comment: Interpretive Data Percent cell count reference ranges are not reported, since discordance with absolute values may lead to misinterpretation of CBC data. Current Interpretive Data was last revised on 2018. Imm gran pct 1.1 % [facility] Comment: Interpretive Data Percent cell count reference ranges are not reported, since discordance with absolute values may lead to misinterpretation of CBC data. Current Interpretive Data was last revised on 2018. Lymphocyte pct 10.8 % [facility] [facility] Comment: Interpretive Data Percent cell count reference ranges are not reported, since discordance with absolute values may lead to misinterpretation of CBC data. Current Interpretive Data was last revised on 2018. Monocyte pct 7.0 % [facility] Comment: Interpretive Data Percent cell count reference ranges are not reported, since discordance with absolute values may lead to misinterpretation of CBC data. Current Interpretive Data was last revised on 2018. Eosinophil pct 0.1 % [facility] Comment: Interpretive Data Percent cell count reference ranges are not reported, since discordance with absolute values may lead to misinterpretation of CBC data. Current Interpretive Data was last revised on 2018. Basophil pct 0.0 % [facility] Comment: Interpretive Data Percent cell count reference ranges are not reported, since discordance with absolute values may lead to misinterpretation of CBC data. Current Interpretive Data was last revised on 2018. Blood 11/26/2024 9:00 PM [employer]OLLER 11/26/2024 9:46 PM [employer] ATT[employer] CONTROLLER Manisha Williamson NP LAB BLOOD ORDERABLES Final Result [facility] Department [place] [address] * (ABNORMAL) CBC with auto differential (11/26/2024 9:00 PM [employer] ATT[employer] CONTROLLER) WBC 9.6 3.8 - 9.9 K/cumm Hgb 9.6(L) 11.9 - 15.5 g/dL [facility] Hct 36.4 35.6 - 45.5 % [facility] Plt 450(H) 150 - 400 K/cumm [facility] MPV 10.8 9.1 - 12.3 fL [facility] RBC 4.31 3.90 - 5.20 M/cumm [facility] MCV 84.5 81.3 - 96.4 fL [facility] MCH 22.3(L) 27.1 - 33.3 pg [facility] MCHC 26.4(L) 32.3 - 35.7 g/dL [facility] RDW CV 23.5(H) 11.1 - 14.9 % [facility] RDW SD 71.5(H) 35.7 - 48.1 fL [facility] NRBC abs 0.02(H) 0.00 - 0.01 K/cumm [facility] Blood 11/26/2024 9:00 PM [employer]OLLER 11/26/2024 9:46 PM [employer] ATT[employer] CONTROLLER us Manisha Williamson NP LAB BLOOD ORDERABLES Final Result Performing Organization Address [facility] de Phone Number [facility] Department [place] [address] * (ABNORMAL) Protime-INR (11/26/2024 9:00 PM [employer] ATT[employer] CONTROLLER) PT 30.8(H) 9.7 - 13.0 sec INR 2.79(H) 0.90 - 1.20 [facility] Comment: Interpretive data Oral anticoagulant therapeutic ranges: Venous thromboembolism prophylaxis or treatment: 2.0-3.0 CARDIOLOGY Standard range: 2.0-3.0 High-intensity range: 2.5-3.5 Refer to indication-specific guidelines for appropriate target ranges for prosthetic heart valve replacement. Current interpretive data was last revised on 2019. Blood 11/26/2024 9:00 PM [employer] ATT[employer] CONTROLLER 11/26/2024 9:50 PM JO[employer] ATTACK CONTROLLER Hesham Madsen MD LAB BLOOD ORDERABLES Final R esult Performing Organization Address [facility] Co de Phone Number [facility] Department [place] [address] * (ABNORMAL) Basic metabolic panel (11/26/2024 9:00 PM JOINT TERMINAL ATTACK CONTROLLER) Pathologist [facility] Sodium 146(H) 135 - 145 mmol/L Potassium, pl 4.7 3.3 - 4.9 mmol/L [facility] Chloride 101 97 - 110 mmol/L [facility] CO2 37(H) 22 - 32 mmol/L [facility] Anion gap 8 2 - 15 mmol/L [facility] BUN 24 6 - 25 mg/dL [facility] Creatinine 0.55(L) 0.60 - 1.10 mg/dL [facility] Glucose 156 70 - 199 mg/dL [facility] Comment: Interpretive Data Fasting glucose >/= [...] 2022. Calcium 8.8 8.5 - 10.3 mg/dL [facility] Blood 11/26/2024 9:00 PM [employer]OLLER 11/26/2024 9:50 PM [employer] ATTACK CONTROLLER Manisha Williamson NP LAB BLOOD ORDERABLES Final Result [facility] Department [place] [address] * (ABNORMAL) POCT glucose (11/26/2024 8:11 PM JO[employer] ATT[employer] CONTROLLER) Glucose, POC 232(H) 70 - 199 mg/dL Blood 11/26/2024 8:11 PM [employer] ATT[employer] CONTROLLER 11/26/2024 8:11 PM JO[employer] ATTACK CONTROLLER us Hesham Madsen MD LAB POCT ORDERABLES - DEVICE Final Result Performing Organization Address [facility] de Phone Number [facility] [place] [address] * POCT glucose (11/26/2024 4:58 PM JO[employer] ATTACK CONTROLLER) Glucose, POC 144 70 - 199 mg/dL Blood 11/26/2024 4:58 PM [employer] ATT[employer] CONTROLLER 11/26/2024 4:58 PM [employer] ATT[employer] CONTROLLER Hesham Madsen MD LAB POCT ORDERABLES - DEVICE Final Result Performing Organization Address [facility] de Phone Number [facility] [place] [address] * (ABNORMAL) POCT glucose (11/26/2024 11:50 AM JOINT TERMINAL ATTACK CONTROLLER) Glucose, POC 273(H) 70 - 199 mg/dL Blood 11/26/2024 11:5 0 AM [employer] ATT[employer] CONTROLLER 11/26/2024 11:50 AM JO[employer] ATTACK CONTROLLER Hesham Madsen MD LAB POCT ORDERABLES - DEVICE Final Result Performing Organization Address [facility] de Phone Number [facility] Department [place] [address] * (ABNORMAL) POCT glucose (11/26/2024 9:56 AM JO[employer]MIN[employer] ATT[employer] CONTROLLER) Glucose, POC 305(H) 70 - 199 mg/dL Blood 11/26/2024 9:56 AM JO[employer]AL ATTACK CONTROLLER 11/26/2024 9:56 AM JO[employer]AL ATTACK CONTROLLER us Hesham Madsen MD LAB POCT ORDERABLES - DEVICE Final Result Performing Organization Address [facility] Co de Phone Number [facility] Department [place] [address] * (ABNORMAL) POCT glucose (11/26/2024 8:08 AM JOINT TERMINAL ATTACK CONTROLLER) Glucose, POC 381(H) 70 - 199 mg/dL Blood 11/26/2024 8:08 AM JO[employer] ATT[employer] CONTROLLER 11/26/2024 8:08 AM JO[employer] ATTACK CONTROLLER Hesham Madsen MD LAB POCT ORDERABLES - DEVICE Final Result Performing Organization Address City/[facility] [place] [address] * POCT glucose (11/26/2024 4:08 AM JOINT TERMINAL ATTACK CONTROLLER) Glucose, POC 164 70 - 199 mg/dL Blood 11/26/2024 4:08 AM [employer] ATT[employer] CONTROLLER 11/26/2024 4:08 AM JO[employer] TERMINAL ATTACK CONTROLLER Hesham Madsen MD LAB POCT ORDERABLES - DEVICE Final Result Performing Organization Address [facility] [place] [address] * (ABNORMAL) POCT glucose (11/26/2024 12:28 AM JO[employer] ATT[employer] CONTROLLER) Glucose, POC 223(H) 70 - 199 mg/dL Blood 11/26/2024 12:2 8 AM JO[employer]AL ATTACK CONTROLLER 11/26/2024 12:28 AM JO[employer] ATTACK CONTROLLER Hesham Madsen MD LAB POCT ORDERABLES - DEVICE Final Result Performing Organization Address City/[facility] Co de Phone Number [facility] [place] [address] * (ABNORMAL) Urinalysis reflex to microscopic and culture Urine (11/26/2024 12:16 AM JOINT TERMINAL ATTACK CONTROLLER) Color, ur Yellow Yellow Clarity, ur Clear Clear [facility] Specific gravity, ur 1.030 1.003 - 1.030 [facility] pH, urine 6.5 [facility] Comment: Interpretive Data U rine pH is affected by diet, medications, systemic acid-base disturbances, and renal tubular function. pH may affect urinary stone formation. For example, urine pH below 6.0 may help reduce the tendency for calcium phosphate stones and pH greater than 6.0 may reduce the tendency for uric acid stone formation. Source: [facility] Current Interpretive Data was last revised on 2017 Protein, ur ql 1+(A) Negative [facility] Glucose, ur ql 4+(A) Negative [facility] Ketones, ur Trace Negative [facility] Bilirubin, ur Negative Negative [facility] Blood, ur Negative Negative [facility] Urobilinogen, ur <2.0 <2.0 mg/dL [facility] Nitrite, ur Negative Negative [facility] Leukocyte esterase, ur 1+(A) Negative [facility] UA reflex comment Reflex to microscopic UA will be performed. [facility] Urine 11/26/2024 12:1 6 AM JO[employer]MINAL ATTACK CONTROLLER 11/26/2024 1:20 AM JOINT [employer]MINAL ATTACK CONTROLLER Hesham Madsen MD LAB MICROBIOLOGY - GENERAL O RDERABLES Final Result [facility] Department [place] [address] * (ABNORMAL) Urinalysis, microscopic only (11/26/2024 12:16 AM JOINT TERMINAL ATT[employer] CONTROLLER) WBC, ur 0-5 0 - 5 /HPF RBC, ur 3-5(A) 0 - 2 /HPF [facility] Epithelial cells, squamous, ur 1-5 0 - 5 /HPF [facility] Bacteria, ur Trace(A) [facility] Mucous, ur Present(A) [facility] Calcium oxalate crystals, ur 2+(A) [facility] Hyaline casts, ur 1-5 0 - 10 /LPF [facility] Culture Reflex Comment Reflex conditions for urine culture (WBC >10) not met. [facility] Urine 11/26/2024 12:1 6 AM JOINT TERMINAL ATTACK CONTROLLER 11/26/2024 1:20 AM JOINT TERMINAL ATTACK CONTROLLER Hesham Madsen MD LAB URINE ORDERABLES Final R esult Performing Organization Address [facility] Co de Phone Number [facility] [place] [address] * eGFR (11/26/2024 12:10 AM JOINT [employer]MIN[employer] ATT[employer] CONTROLLER) eGFR >90 >=60 mL/min/1. 73 m2 Comment: [...] reviewed 2021. Blood 11/26/2024 12:1 0 AM JO[employer] ATT[employer] CONTROLLER 11/26/2024 1:23 AM JOINT [employer]MIN[employer] ATTACK CONTROLLER Manisha Williamson NP LAB BLOOD ORDERABLES Final Result Performing Organization Address City/[facility] Co de Phone Number [facility] Department [place] [address] * Differential, auto (11/26/2024 12:10 AM JOINT TERMINAL ATTACK CONTROLLER) Neutrophil abs 6.0 1.5 - 6.5 K/cumm Imm gran abs 0.1 0.0 - 0.1 K/cumm [facility] Lymphocyte abs 1.3 0.8 - 3.3 K/cumm [facility] Monocyte abs 0.7 0.2 - 0.8 K/cumm [facility] Eosinophil abs 0.0 0.0 - 0.5 K/cumm [facility] Basophil abs 0.0 0.0 - 0.1 K/cumm [facility] Neutrophil pct 73.8 % [facility] Comment: Interpretive Data Percent cell count reference ranges are not reported, since discordance with absolute values may lead to misinterpretation of CBC data. Current Interpretive Data was last revised on 2018. Imm gran pct 1.2 % [facility] Comment: Interpretive Data Percent cell count reference ranges are not reported, since discordance with absolute values may lead to misinterpretation of CBC data. Current Interpretive Data was last revised on 2018. Lymphocyte pct 15.7 % [facility] Comment: Interpretive Data Percent cell count reference ranges are not reported, since discordance with absolute values may lead to misinterpretation of CBC data. Current Interpretive Data was last revised on 2018. Monocyte pct 9.1 % [facility] Comment: Interpretive Data Percent cell count reference ranges are not reported, since discordance with absolute values may lead to misinterpretation of CBC data. Current Interpretive Data was last revised on 2018. Eosinophil pct 0.1 % [facility] Comment: Interpretive Data Percent cell count reference ranges are not reported, since discordance with absolute values may lead to misinterpretation of CBC data. Current Interpretive Data was last revised on 2018. Basophil pct 0.1 % [facility] Comment: Interpretive Data Percent cell count reference ranges are not reported, since discordance with absolute values may lead to misinterpretation of CBC data. Current Interpretive Data was last revised on 2018. Blood 11/26/2024 12:1 0 AM JO[employer] ATTACK CONTROLLER 11/26/2024 1:23 AM JOINT [employer]MINAL ATTACK CONTROLLER Manisha Williamson NP LAB BLOOD ORDERABLES Final Result [facility] Department [place] [address] * (ABNORMAL) CBC with auto differential (11/26/2024 12:10 AM JOINT TERMINAL ATTACK CONTROLLER) [facility] WBC 8.1 3.8 - 9.9 K/cumm Hgb 9.2(L) 11.9 - 15.5 g/dL [facility] Hct 34.0(L) 35.6 - 45.5 % [facility] Plt 375 150 - 400 K/cumm [facility] MPV 10.2 9.1 - 12.3 fL [facility] RBC 4.10 3.90 - 5.20 M/cumm [facility] MCV 82.9 81.3 - 96.4 fL [facility] MCH 22.4(L) 27.1 - 33.3 pg [facility] MCHC 27.1(L) 32.3 - 35.7 g/dL [facility] RDW CV 24.0(H) 11.1 - 14.9 % [facility] RDW SD 71.1(H) 35.7 - 48.1 fL [facility] NRBC abs 0.00 0.00 - 0.01 K/cumm [facility] Blood 11/26/2024 12:1 0 AM JO[employer]MIN[employer] ATTACK CONTROLLER 11/26/2024 1:23 AM JOINT [employer]MIN[employer] ATTACK CONTROLLER Manisha Williamson NP LAB BLOOD ORDERABLES Final Result [facility] Department [place] [address] * (ABNORMAL) Protime-INR (11/26/2024 12:10 AM JOINT TERMINAL ATTACK CONTROLLER) [facility] PT 26.5(H) 9.7 - 13.0 sec INR 2.41(H) 0.90 - 1.20 [facility] Comment: Interpretive data Oral anticoagulant therapeutic ranges: Venous thromboembolism prophylaxis or treatment: 2.0-3.0 CARDIOLOGY Standard range: 2.0-3.0 High-intensity range: 2.5-3.5 Refer to indication-specific guidelines for appropriate target ranges for prosthetic heart valve replacement. Current interpretive data was last revised on 2019. Blood 11/26/2024 12:1 0 AM JOINT TERMINAL ATTACK CONTROLLER 11/26/2024 1:47 AM JOINT TERMINAL ATTACK CONTROLLER Hesham Madsen MD LAB BLOOD ORDERABLES Final R esult [facility] Department [place] [address] * (ABNORMAL) Basic metabolic panel (11/26/2024 12:10 AM JOINT TERMINAL ATTACK CONTROLLER) Sodium 146(H) 135 - 145 mmol/L Potassium, pl 3.0(L) 3.3 - 4.9 mmol/L [facility] Chloride 102 97 - 110 mmol/L [facility] CO2 37(H) 22 - 32 mmol/L [facility] Anion gap 7 2 - 15 mmol/L [facility] BUN 22 6 - 25 mg/dL [facility] Creatinine 0.65 0.60 - 1.10 mg/dL [facility] Glucose 201(H) 70 - 199 mg/dL [facility] Comment: Interpretive Data Fasting glucose >/= [...] 2022. Calcium 8.8 8.5 - 10.3 mg/dL [facility] Blood 11/26/2024 12:1 0 AM JOINT TERMINAL ATTACK CONTROLLER 11/26/2024 1:23 AM JOINT TERMINAL ATTACK CONTROLLER Manisha Williamson NP LAB BLOOD ORDERABLES Final Result Performing Organization Address [facility] de Phone Number [facility] [place] [address] * (ABNORMAL) POCT glucose (11/25/2024 10:40 PM JOINT TERMINAL ATTACK CONTROLLER) Glucose, POC 234(H) 70 - 199 mg/dL Blood 11/25/2024 10:4 0 PM JOINT TERMINAL ATTACK CONTROLLER 11/25/2024 10:40 PM JOINT TERMINAL ATTACK CONTROLLER Hesham Madsen MD LAB POCT ORDERABLES - DEVICE Final Result Performing Organization Address [facility] de Phone Number [facility] [place] [address] * (ABNORMAL) POCT glucose (11/25/2024 9:37 PM JOINT TERMINAL ATTACK CONTROLLER) Glucose, POC 287(H) 70 - 199 mg/dL Comment:Glu2: RN/MD Notified Glucose comment 1 Glu2: RN/MD Notified [facility] Blood 11/25/2024 9:37 PM JOINT TERMINAL ATTACK CONTROLLER 11/25/2024 9:37 PM JOINT TERMINAL ATTACK CONTROLLER Hesham Madsen MD LAB POCT ORDERABLES - DEVICE Final Result Performing Organization Address [facility] de Phone Number [facility] [place] [address] * (ABNORMAL) POCT glucose (11/25/2024 8:11 PM JOINT TERMINAL ATTACK CONTROLLER) Glucose, POC 351(H) 70 - 199 mg/dL Blood 11/25/2024 8:11 PM JOINT TERMINAL ATTACK CONTROLLER 11/25/2024 8:11 PM JOINT TERMINAL ATTACK CONTROLLER Hesham Masden MD LAB POCT ORDERABLES - DEVICE Final Result Performing Organization Address [facility] Co de Phone Number [facility] [place] [address] * (ABNORMAL) POCT glucose (11/25/2024 5:09 PM JOINT TERMINAL ATTACK CONTROLLER) Glucose, POC 223(H) 70 - 199 mg/dL Blood 11/25/2024 5:09 PM JOINT TERMINAL ATTACK CONTROLLER 11/25/2024 5:09 PM JOINT TERMINAL ATTACK CONTROLLER Hesham Madsen MD LAB POCT ORDERABLES - DEVICE Final Result Performing Organization Address City/[facility]/[place] [address] * (ABNORMAL) POCT glucose (11/25/2024 2:32 PM JOINT TERMINAL ATTACK CONTROLLER) Glucose, POC 270(H) 70 - 199 mg/dL Blood 11/25/2024 2:32 PM JOINT [employer]MINAL ATTACK CONTROLLER 11/25/2024 2:32 PM JOINT TERMINAL ATTACK CONTROLLER Heshma Madsen MD LAB POCT ORDERABLES - DEVICE Final Result Performing Organization Address City/[facility]/ZIP Co de Phone Number [facility] [place] [address] * (ABNORMAL) POCT glucose (11/25/2024 11:40 AM JOINT TERMINAL ATTACK CONTROLLER) Glucose, POC 324(H) 70 - 199 mg/dL Blood 11/25/2024 11:4 0 AM JOINT TERMINAL ATTACK CONTROLLER 11/25/2024 11:40 AM JOINT TERMINAL ATTACK CONTROLLER Hesham Madsen MD LAB POCT ORDERABLES - DEVICE Final Result Performing Organization Address City/[facility]/ZIP Co de Phone Number [facility] [place] [address] * XR Chest 1 View (11/25/2024 9:35 AM JOINT TERMINAL ATTACK CONTROLLER) Anatomical Region Laterality Modality Body, Chest N/A Computed Radiogr aphy 11/25/2024 11:5 8 AM JOINT TERMINAL ATTACK CONTROLLER Impressions 11/25/2024 11:59 AM JOINT TERMINAL ATTACK CONTROLLER Comparison is made to radiograph dated 11/22/2024. [...] Nereyda Medeiros M.D. Narrative 11/25/2024 11:59 AM JOINT TERMINAL ATTACK CONTROLLER EXAMINATION: 1 view chest radiograph Procedure Note [...] by: Nereyda Medeiros M.D. us Ines Purdy [employer] IMG XR PROCEDURES Fin al Result * (ABNORMAL) POCT glucose (11/25/2024 7:51 AM JOINT TERMINAL ATTACK CONTROLLER) Glucose, POC 221(H) 70 - 199 mg/dL Blood 11/25/2024 7:51 AM JOINT TERMINAL ATTACK CONTROLLER 11/25/2024 7:51 AM JOINT TERMINAL ATTACK CONTROLLER Hesham Madsen MD LAB POCT ORDERABLES - DEVICE Final Result Performing Organization Address [facility] Co de Phone Number [facility] Department [place] [address] * eGFR (11/24/2024 10:08 PM JOINT TERMINAL ATTACK CONTROLLER) eGFR 86 >=60 mL/min/1. 73 m2 Comment: [...] reviewed 2021. Blood 11/24/2024 10:0 8 PM JOINT [employer]MINAL ATTACK CONTROLLER 11/24/2024 10:46 PM JO[employer]MINAL ATTACK CONTROLLER Manisha Williamson NP LAB BLOOD ORDERABLES Final Result Performing Organization Address City/[facility]/ZIP Co de Phone Number [facility] Department [place] [address] * (ABNORMAL) Differential, auto (11/24/2024 10:08 PM JOINT TERMINAL ATTACK CONTROLLER) Neutrophil abs 6.8(H) 1.5 - 6.5 K/cumm Imm gran abs 0.1 0.0 - 0.1 K/cumm [facility] Lymphocyte abs 1.2 0.8 - 3.3 K/cumm [facility] Monocyte abs 0.7 0.2 - 0.8 K/cumm [facility] Eosinophil abs 0.0 0.0 - 0.5 K/cumm [facility] Basophil abs 0.0 0.0 - 0.1 K/cumm [facility] Neutrophil pct 77.4 % [facility] Comment: Interpretive Data Percent cell count reference ranges are not reported, since discordance with absolute values may lead to misinterpretation of CBC data. Current Interpretive Data was last revised on 2018. Imm gran pct 1.2 % [facility] Comment: Interpretive Data Percent cell count reference ranges are not reported, since discordance with absolute values may lead to misinterpretation of CBC data. Current Interpretive Data was last revised on 2018. Lymphocyte pct 13.6 % [facility] Comment: Interpretive Data Percent cell count reference ranges are not reported, since discordance with absolute values may lead to misinterpretation of CBC data. Current Interpretive Data was last revised on 2018. Monocyte pct 7.6 % [facility] Comment: Interpretive Data Percent cell count reference ranges are not reported, since discordance with absolute values may lead to misinterpretation of CBC data. Current Interpretive Data was last revised on 2018. Eosinophil pct 0.1 % [facility] Comment: Interpretive Data Percent cell count reference ranges are not reported, since discordance with absolute values may lead to misinterpretation of CBC data. Current Interpretive Data was last revised on 2018. Basophil pct 0.1 % [facility] Comment: Interpretive Data Percent cell count reference ranges are not reported, since discordance with absolute values may lead to misinterpretation of CBC data. Current Interpretive Data was last revised on 2018. Blood 11/24/2024 10:0 8 PM JO[employer] ATT[employer] CONTROLLER 11/24/2024 10:46 PM JO[employer] ATTACK CONTROLLER us Manisha Williamson NP LAB BLOOD ORDERABLES Final Result [facility] Department [place] [address] * (ABNORMAL) CBC with auto differential (11/24/2024 10:08 PM JOINT TERMINAL ATTACK CONTROLLER) [facility] WBC 8.8 3.8 - 9.9 K/cumm Hgb 10.3(L) 11.9 - 15.5 g/dL [facility] Hct 38.0 35.6 - 45.5 % [facility] Plt 459(H) 150 - 400 K/cumm [facility] MPV 10.3 9.1 - 12.3 fL [facility] RBC 4.53 3.90 - 5.20 M/cumm [facility] MCV 83.9 81.3 - 96.4 fL [facility] MCH 22.7(L) 27.1 - 33.3 pg [facility] MCHC 27.1(L) 32.3 - 35.7 g/dL [facility] RDW CV 24.4(H) 11.1 - 14.9 % [facility] RDW SD 72.6(H) 35.7 - 48.1 fL [facility] NRBC abs 0.03(H) 0.00 - 0.01 K/cumm [facility] Blood 11/24/2024 10:0 8 PM JOINT [employer]MINAL ATTACK CONTROLLER 11/24/2024 10:46 PM JOINT TERMINAL ATTACK CONTROLLER Manisha Williamson NP LAB BLOOD ORDERABLES Final Result Performing Organization Address City/State/[facility] Co de Phone Number [facility] Department [place] [address] * (ABNORMAL) Protime-INR (11/24/2024 10:08 PM JOINT TERMINAL ATTACK CONTROLLER) [facility] PT 22.3(H) 9.7 - 13.0 sec INR 2.04(H) 0.90 - 1.20 [facility] Comment: Interpretive data Oral anticoagulant therapeutic ranges: Venous thromboembolism prophylaxis or treatment: 2.0-3.0 CARDIOLOGY Standard range: 2.0-3.0 High-intensity range: 2.5-3.5 Refer to indication-specific guidelines for appropriate target ranges for prosthetic heart valve replacement. Current interpretive data was last revised on 2019. Blood 11/24/2024 10:0 8 PM JOINT TERMINAL ATTACK CONTROLLER 11/24/2024 10:42 PM JOINT TERMINAL ATTACK CONTROLLER Hesham Madsen MD LAB BLOOD ORDERABLES Final R esult [facility] Department [place] [address] * (ABNORMAL) Basic metabolic panel (11/24/2024 10:08 PM JOINT TERMINAL ATTACK CONTROLLER) Pathologist [facility] Sodium 145 135 - 145 mmol/L Potassium, pl 3.8 3.3 - 4.9 mmol/L [facility] Chloride 97 97 - 110 mmol/L [facility] CO2 36(H) 22 - 32 mmol/L [facility] Anion gap 12 2 - 15 mmol/L [facility] BUN 28(H) 6 - 25 mg/dL [facility] Creatinine 0.78 0.60 - 1.10 mg/dL [facility] Glucose 243(H) 70 - 199 mg/dL [facility] Comment: Interpretive Data Fasting glucose >/= [...] 2022. Calcium 9.0 8.5 - 10.3 mg/dL [facility] Blood 11/24/2024 10:0 8 PM [employer]OLLER 11/24/2024 10:46 PM [employer] ATT[employer] CONTROLLER Manisha Williamson NP LAB BLOOD [place] [address] * (ABNORMAL) POCT glucose (11/24/2024 7:52 PM JO[employer] TERMINAL ATTACK CONTROLLER) Glucose, POC 317(H) 70 - 199 mg/dL Comment:Glu2: RN/MD Notified Glucose comment 1 Glu2: RN/MD Notified [facility] Blood 11/24/2024 7:52 PM [employer] ATTACK CONTROLLER 11/24/2024 7:52 PM JO[employer] ATTACK CONTROLLER Hesham Madsen MD LAB POCT ORDERABLES - DEVICE Final Result Performing Organization Address City/[facility]/[place] [address] * POCT glucose (11/24/2024 5:06 PM JO[employer] TERMIN[employer] ATTACK CONTROLLER) Glucose, POC 136 70 - 199 mg/dL Blood 11/24/2024 5:06 PM [employer] ATT[employer] CONTROLLER 11/24/2024 5:06 PM JO[employer] ATTACK CONTROLLER us Hesham Madsen MD LAB POCT ORDERABLES - [place] [address] * POCT glucose (11/24/2024 4:01 PM JO[employer] TERMIN[employer] ATTACK CONTROLLER) Glucose, POC 151 70 - 199 mg/dL Blood 11/24/2024 4:01 PM [employer] ATT[employer] CONTROLLER 11/24/2024 4:01 PM JO[employer]MIN[employer] ATTACK CONTROLLER us Hesham Madsen MD LAB POCT ORDERABLES - DEVICE Final Result Performing Organization Address City/[facility]/ZIP Co de Phone Number [facility] [place] [address] * (ABNORMAL) POCT glucose (11/24/2024 3:01 PM JO[employer] TERMINAL ATTACK CONTROLLER) Glucose, POC 242(H) 70 - 199 mg/dL Blood 11/24/2024 3:01 PM JO[employer] ATTACK CONTROLLER 11/24/2024 3:01 PM JO[employer] ATTACK CONTROLLER Hesham Madsen MD LAB POCT ORDERABLES - DEVICE Final Result Performing Organization Address City/[facility] Co de Phone Number [facility] Department [place] [address] * (ABNORMAL) POCT glucose (11/24/2024 1:57 PM JOINT TERMINAL ATTACK CONTROLLER) [facility] Glucose, POC 384(H) 70 - 199 mg/dL Blood 11/24/2024 1:57 PM JO[employer] ATTACK CONTROLLER 11/24/2024 1:57 PM JO[employer]MINAL ATTACK CONTROLLER Hesham Madsen MD LAB POCT ORDERABLES - DEVICE Final Result Performing Organization Address [facility] Co de Phone Number [facility] Department [place] [address] * (ABNORMAL) POCT glucose (11/24/2024 12:16 PM JOINT TERMINAL ATTACK CONTROLLER) [facility] Glucose, POC 305(H) 70 - 199 mg/dL Comment:Glu2: RN/MD Notified Glucose comment 1 Glu2: RN/MD Notified [facility] Blood 11/24/2024 12:1 6 PM [employer] ATT[employer] CONTROLLER 11/24/2024 12:16 PM JOINT [employer]MINAL ATTACK CONTROLLER Result [facility] Hesham Madsen MD LAB POCT ORDERABLES - DEVICE Final Result Performing Organization Address City/[facility] Co de Phone Number [facility] [place] [address] * (ABNORMAL) POCT glucose (11/24/2024 7:25 AM JOINT TERMINAL ATTACK CONTROLLER) [facility] Glucose, POC 231(H) 70 - 199 mg/dL Blood 11/24/2024 7:25 AM JO[employer]MINAL ATTACK CONTROLLER 11/24/2024 7:25 AM JOINT [employer]MIN[employer] ATTACK CONTROLLER Hesahm Madsen MD LAB POCT ORDERABLES - DEVICE Final Result Performing Organization Address City/[facility]/ZIP Co de Phone Number [facility] [place] [address] * eGFR (11/23/2024 10:31 PM JOINT TERMINAL ATTACK CONTROLLER) [facility] eGFR >90 >=60 mL/min/1. 73 m2 Comment: [...] reviewed 2021. Blood 11/23/2024 10:3 1 PM [employer] ATT[employer] CONTROLLER 11/23/2024 11:38 PM JO[employer] TERMINAL ATTACK CONTROLLER Manisha Williamson NP LAB BLOOD ORDERABLES Final Result Performing Organization Address City/[facility]/ZIP Co de Phone Number [facility] Department [place] [address] * Differential, auto (11/23/2024 10:31 PM JOINT TERMINAL ATTACK CONTROLLER) [facility] Neutrophil abs 5.7 1.5 - 6.5 K/cumm Imm gran abs 0.1 0.0 - 0.1 K/cumm [facility] Lymphocyte abs 1.3 0.8 - 3.3 K/cumm [facility] Monocyte abs 0.8 0.2 - 0.8 K/cumm [facility] Eosinophil abs 0.0 0.0 - 0.5 K/cumm [facility] Basophil abs 0.0 0.0 - 0.1 K/cumm [facility] Neutrophil pct 71.7 % [facility] Comment: Interpretive Data Percent cell count reference ranges are not reported, since discordance with absolute values may lead to misinterpretation of CBC data. Current Interpretive Data was last revised on 2018. Imm gran pct 1.4 % [facility] Comment: Interpretive Data Percent cell count reference ranges are not reported, since discordance with absolute values may lead to misinterpretation of CBC data. Current Interpretive Data was last revised on 2018. Lymphocyte pct 16.7 % [facility] Comment: Interpretive Data Percent cell count reference ranges are not reported, since discordance with absolute values may lead to misinterpretation of CBC data. Current Interpretive Data was last revised on 2018. Monocyte pct 10.1 % [facility] Comment: Interpretive Data Percent cell count reference ranges are not reported, since discordance with absolute values may lead to misinterpretation of CBC data. Current Interpretive Data was last revised on 2018. Eosinophil pct 0.1 % [facility] Comment: Interpretive Data Percent cell count reference ranges are not reported, since discordance with absolute values may lead to misinterpretation of CBC data. Current Interpretive Data was last revised on 2018. Basophil pct 0.0 % [facility] Comment: Interpretive Data Percent cell count reference ranges are not reported, since discordance with absolute values may lead to misinterpretation of CBC data. Current Interpretive Data was last revised on 2018. Blood 11/23/2024 10:3 1 PM JO[employer]AL ATT[employer] CONTROLLER 11/23/2024 11:39 PM JOINT TERMINAL ATTACK CONTROLLER us Manisha Williamson NP LAB BLOOD ORDERABLES Final Result [facility] Department [place] [address] * (ABNORMAL) CBC with auto differential (11/23/2024 10:31 PM JOINT TERMINAL ATTACK CONTROLLER) [facility] WBC 7.9 3.8 - 9.9 K/cumm Hgb 9.3(L) 11.9 - 15.5 g/dL [facility] Hct 35.0(L) 35.6 - 45.5 % [facility] Plt 419(H) 150 - 400 K/cumm [facility] MPV 10.4 9.1 - 12.3 fL [facility] RBC 4.22 3.90 - 5.20 M/cumm [facility] MCV 82.9 81.3 - 96.4 fL [facility] MCH 22.0(L) 27.1 - 33.3 pg [facility] MCHC 26.6(L) 32.3 - 35.7 g/dL [facility] RDW CV 24.4(H) 11.1 - 14.9 % [facility] RDW SD 72.2(H) 35.7 - 48.1 fL [facility] NRBC abs 0.02(H) 0.00 - 0.01 K/cumm [facility] Blood 11/23/2024 10:3 1 PM JO[employer] ATTACK CONTROLLER 11/23/2024 11:39 PM JO[employer]MIN[employer] ATTACK CONTROLLER Manisha Williamson NP LAB BLOOD ORDERABLES Final Result Performing Organization Address City/[facility] Co de Phone Number [facility] Department [place] [address] * (ABNORMAL) Protime-INR (11/23/2024 10:31 PM JOINT TERMINAL ATTACK CONTROLLER) [facility] PT 18.4(H) 9.7 - 13.0 sec INR 1.69(H) 0.90 - 1.20 [facility] Comment: Interpretive data Oral anticoagulant therapeutic ranges: Venous thromboembolism prophylaxis or treatment: 2.0-3.0 CARDIOLOGY Standard range: 2.0-3.0 High-intensity range: 2.5-3.5 Refer to indication-specific guidelines for appropriate target ranges for prosthetic heart valve replacement. Current interpretive data was last revised on 2019. Blood 11/23/2024 10:3 1 PM JO[employer]MINAL ATTACK CONTROLLER 11/23/2024 11:47 PM JOINT TERMINAL ATTACK CONTROLLER Hesham Madsen MD LAB BLOOD ORDERABLES Final R esult [facility] Department [place] [address] * (ABNORMAL) Basic metabolic panel (11/23/2024 10:31 PM JOINT TERMINAL ATTACK CONTROLLER) Sodium 148(H) 135 - 145 mmol/L Potassium, pl 3.7 3.3 - 4.9 mmol/L [facility] Chloride 103 97 - 110 mmol/L [facility] CO2 35(H) 22 - 32 mmol/L [facility] Anion gap 10 2 - 15 mmol/L [facility] BUN 22 6 - 25 mg/dL [facility] Creatinine 0.51(L) 0.60 - 1.10 mg/dL [facility] Glucose 185 70 - 199 mg/dL [facility] Comment: Interpretive Data Fasting glucose >/= [...] 2022. Calcium 8.5 8.5 - 10.3 mg/dL [facility] Blood 11/23/2024 10:3 1 PM JOINT TERMINAL ATTACK CONTROLLER 11/23/2024 11:38 PM JOINT TERMINAL ATTACK CONTROLLER Manisha Williamson NP LAB BLOOD ORDERABLES Final Result Performing Organization Address City/[facility] [place] [address] * POCT glucose (11/23/2024 10:13 PM JOINT TERMINAL ATTACK CONTROLLER) Glucose, POC 175 70 - 199 mg/dL Blood 11/23/2024 10:1 3 PM JOINT TERMINAL ATTACK CONTROLLER 11/23/2024 10:13 PM JOINT TERMINAL ATTACK CONTROLLER Result [facility] Hesham Madsen MD LAB POCT ORDERABLES - DEVICE Final Result Performing Organization Address [facility] [place] [address] * (ABNORMAL) POCT glucose (11/23/2024 8:11 PM JOINT TERMINAL ATTACK CONTROLLER) Glucose, POC 205(H) 70 - 199 mg/dL Blood 11/23/2024 8:11 PM JOINT TERMINAL ATTACK CONTROLLER 11/23/2024 8:11 PM JOINT TERMINAL ATTACK CONTROLLER us Hesham Madsen MD LAB POCT ORDERABLES - DEVICE Final Result Performing Organization Address [facility] Co de Phone Number [facility] [place] [address] * (ABNORMAL) POCT glucose (11/23/2024 6:23 PM JOINT TERMINAL ATTACK CONTROLLER) Glucose, POC 363(H) 70 - 199 mg/dL Blood 11/23/2024 6:23 PM JOINT TERMINAL ATTACK CONTROLLER 11/23/2024 6:23 PM JOINT TERMINAL ATTACK CONTROLLER us Hesham Madsen MD LAB POCT ORDERABLES - DEVICE Final Result Performing Organization Address City/[facility] Co de Phone Number [facility] [place] [address] * (ABNORMAL) POCT glucose (11/23/2024 4:35 PM JOINT TERMINAL ATTACK CONTROLLER) Glucose, POC 340(H) 70 - 199 mg/dL Blood 11/23/2024 4:35 PM JOINT TERMINAL ATTACK CONTROLLER 11/23/2024 4:35 PM JOINT TERMINAL ATTACK CONTROLLER Hesham Madsen MD LAB POCT ORDERABLES - DEVICE Final Result Performing Organization Address City/[facility] Co de Phone Number [facility] [place] [address] * (ABNORMAL) POCT glucose (11/23/2024 4:34 PM JOINT TERMINAL ATTACK CONTROLLER) Glucose, POC 365(H) 70 - 199 mg/dL Blood 11/23/2024 4:34 PM JOINT TERMINAL ATTACK CONTROLLER 11/23/2024 4:34 PM JOINT TERMINAL ATTACK CONTROLLER Hesham Madsen MD LAB POCT ORDERABLES - DEVICE Final Result Performing Organization Address [facility] Co de Phone Number [facility] [place] [address] * (ABNORMAL) POCT glucose (11/23/2024 12:28 PM JOINT TERMINAL ATTACK CONTROLLER) Glucose, POC 209(H) 70 - 199 mg/dL Blood 11/23/2024 12:2 8 PM JOINT TERMINAL ATTACK CONTROLLER 11/23/2024 12:28 PM JOINT TERMINAL ATTACK CONTROLLER Hesham Madsen MD LAB POCT ORDERABLES - DEVICE Final Result Performing Organization Address [facility] Co de Phone Number [facility] [place] [address] * (ABNORMAL) POCT glucose (11/23/2024 8:07 AM JOINT TERMINAL ATTACK CONTROLLER) Glucose, POC 227(H) 70 - 199 mg/dL Blood 11/23/2024 8:07 AM JOINT TERMINAL ATTACK CONTROLLER 11/23/2024 8:07 AM JOINT TERMINAL ATTACK CONTROLLER Hesham Madsen MD LAB POCT ORDERABLES - DEVICE Final Result [facility] [place] [address] * (ABNORMAL) POCT glucose (11/22/2024 8:03 PM JOINT TERMINAL ATTACK CONTROLLER) Glucose, POC 324(H) 70 - 199 mg/dL Blood 11/22/2024 8:03 PM JOINT TERMINAL ATTACK CONTROLLER 11/22/2024 8:03 PM JOINT TERMINAL ATTACK CONTROLLER Hesham Madsen MD LAB POCT ORDERABLES - DEVICE Final Result Performing Organization Address City/[facility] de Phone Number [facility] Department [place] [address] * Differential, auto (11/22/2024 7:05 PM JOINT TERMINAL ATTACK CONTROLLER) [facility] Neutrophil abs 6.0 1.5 - 6.5 K/cumm Imm gran abs 0.1 0.0 - 0.1 K/cumm [facility] Lymphocyte abs 0.9 0.8 - 3.3 K/cumm [facility] Monocyte abs 0.7 0.2 - 0.8 K/cumm [facility] Eosinophil abs 0.0 0.0 - 0.5 K/cumm [facility] Basophil abs 0.0 0.0 - 0.1 K/cumm [facility] Neutrophil pct 77.6 % [facility] Comment: Interpretive Data Percent cell count reference ranges are not reported, since discordance with absolute values may lead to misinterpretation of CBC data. Current Interpretive Data was last revised on 2018. Imm gran pct 1.2 % [facility] Comment: Interpretive Data Percent cell count reference ranges are not reported, since discordance with absolute values may lead to misinterpretation of CBC data. Current Interpretive Data was last revised on 2018. Lymphocyte pct 12.2 % [facility] Comment: Interpretive Data Percent cell count reference ranges are not reported, since discordance with absolute values may lead to misinterpretation of CBC data. Current Interpretive Data was last revised on 2018. Monocyte pct 8.8 % [facility] Comment: Interpretive Data Percent cell count reference ranges are not reported, since discordance with absolute values may lead to misinterpretation of CBC data. Current Interpretive Data was last revised on 2018. Eosinophil pct 0.1 % [facility] Comment: Interpretive Data Percent cell count reference ranges are not reported, since discordance with absolute values may lead to misinterpretation of CBC data. Current Interpretive Data was last revised on 2018. Basophil pct 0.1 % [facility] Comment: Interpretive Data Percent cell count reference ranges are not reported, since discordance with absolute values may lead to misinterpretation of CBC data. Current Interpretive Data was last revised on 2018. Blood 11/22/2024 7:05 PM JOINT TERMINAL ATTACK CONTROLLER 11/22/2024 8:14 PM JOINT TERMINAL ATTACK CONTROLLER Manisha Williamson NP LAB BLOOD ORDERABLES Final Result [facility] Department [place] [address] * (ABNORMAL) CBC with auto differential (11/22/2024 7:05 PM JOINT TERMINAL ATTACK CONTROLLER) WBC 7.7 3.8 - 9.9 K/cumm Hgb 9.6(L) 11.9 - 15.5 g/dL [facility] Hct 35.5(L) 35.6 - 45.5 % [facility] Plt 436(H) 150 - 400 K/cumm [facility] MPV 10.6 9.1 - 12.3 fL [facility] RBC 4.26 3.90 - 5.20 M/cumm [facility] MCV 83.3 81.3 - 96.4 fL [facility] MCH 22.5(L) 27.1 - 33.3 pg [facility] MCHC 27.0(L) 32.3 - 35.7 g/dL [facility] RDW CV 24.5(H) 11.1 - 14.9 % [facility] RDW SD 72.1(H) 35.7 - 48.1 fL [facility] NRBC abs 0.02(H) 0.00 - 0.01 K/cumm [facility] Blood 11/22/2024 7:05 PM JOINT TERMINAL ATTACK CONTROLLER 11/22/2024 8:14 PM JOINT TERMINAL ATTACK CONTROLLER Manisha Williamson NP LAB BLOOD ORDERABLES Final Result Performing Organization Address [facility] Co de Phone Number [facility] Department [place] [address] * (ABNORMAL) Troponin I high-sensitivity (11/22/2024 7:04 PM JOINT TERMINAL ATTACK CONTROLLER) [facility] Trop I hs 61(H) <=17 ng/L Comment: Interpretive Data For further hscTnI resources including the diagnostic algorithm and an aid in interpretation, copy and paste this link: [email or web address]/[email or web address] Current Interpretive Data last revised 2020. Blood 11/22/2024 7:04 PM JOINT TERMINAL ATTACK CONTROLLER 11/22/2024 8:13 PM JOINT TERMINAL ATTACK CONTROLLER Lizett Contreras MD LAB BLOOD ORDERABLES Fin al Result Performing Organization Address City/[facility]/ZIP Co de Phone Number [facility] Department [place] [address] * eGFR (11/22/2024 7:04 PM JOINT TERMINAL ATTACK CONTROLLER) [facility] eGFR >90 >=60 mL/min/1. 73 m2 Comment: [...] last reviewed 2021. Blood 11/22/2024 7:04 PM JOINT TERMINAL ATTACK CONTROLLER 11/22/2024 7:27 PM JOINT TERMINAL ATTACK CONTROLLER Hesham Madsen MD LAB BLOOD ORDERABLES Final R esult Performing Organization Address City/[facility]/ZIP Co de Phone Number [facility] [place] [address] * aPTT (11/22/2024 7:04 PM JOINT TERMINAL ATTACK CONTROLLER) aPTT 31 28 - 38 sec Comment: Interpretive Data Heparin therapeutic range: 66.0 - 100.0 seconds. Range based on correlation with therapeutic heparin activity range of 0.3 - 0.7 Units/mL. Current interpretive data was last revised on 2023. Blood 11/22/2024 7:04 PM JOINT TERMINAL ATTACK CONTROLLER 11/22/2024 7:15 PM JOINT TERMINAL ATTACK CONTROLLER Hesham Madsen MD LAB BLOOD ORDERABLES Final R esult [facility] [place] [address] * Protime-INR (11/22/2024 7:04 PM JOINT TERMINAL ATTACK CONTROLLER) PT 11.8 9.7 - 13.0 sec INR 1.09 0.90 - 1.20 [facility] Comment: Interpretive data Oral anticoagulant therapeutic ranges: Venous thromboembolism prophylaxis or treatment: 2.0-3.0 CARDIOLOGY Standard range: 2.0-3.0 High-intensity range: 2.5-3.5 Refer to indication-specific guidelines for appropriate target ranges for prosthetic heart valve replacement. Current interpretive data was last revised on 2019. Blood 11/22/2024 7:04 PM JOINT TERMINAL ATTACK CONTROLLER 11/22/2024 7:15 PM JOINT TERMINAL ATTACK CONTROLLER Hesham Madsen MD LAB BLOOD ORDERABLES Final R esult Performing Organization Address City/[facility] Co de Phone Number [facility] [place] [address] * Phosphorus (11/22/2024 7:04 PM JOINT TERMINAL ATTACK CONTROLLER) Pathologist [facility] Phosphorus, pl 2.5 2.3 - 4.5 mg/dL Blood 11/22/2024 7:04 PM JOINT TERMINAL ATTACK CONTROLLER 11/22/2024 7:15 PM JOINT TERMINAL ATTACK CONTROLLER Lizett Contreras MD LAB BLOOD ORDERABLES Fin al Result Performing Organization Address [facility] de Phone Number [facility] [place] [address] * Magnesium (11/22/2024 7:04 PM JOINT TERMINAL ATTACK CONTROLLER) Pathologist [facility] Magnesium 2.0 1.4 - 2.5 mg/dL Blood 11/22/2024 7:04 PM JOINT TERMINAL ATTACK CONTROLLER 11/22/2024 7:15 PM JOINT TERMINAL ATTACK CONTROLLER Lizett Contreras MD LAB BLOOD ORDERABLES Fin al Result Performing Organization Address [facility] de Phone Number [facility] [place] [address] * (ABNORMAL) Basic metabolic panel (11/22/2024 7:04 PM JOINT TERMINAL ATTACK CONTROLLER) Pathologist [facility] Sodium 145 135 - 145 mmol/L Potassium, pl 3.7 3.3 - 4.9 mmol/L [facility] Chloride 101 97 - 110 mmol/L [facility] CO2 32 22 - 32 mmol/L [facility] Anion gap 12 2 - 15 mmol/L [facility] BUN 22 6 - 25 mg/dL [facility] Creatinine 0.49(L) 0.60 - 1.10 mg/dL [facility] Glucose 314(H) 70 - 199 mg/dL [facility] Comment: Interpretive Data Fasting glucose >/= [...] 2022. Calcium 8.3(L) 8.5 - 10.3 mg/dL [facility] Blood 11/22/2024 7:04 PM JOINT TERMINAL ATTACK CONTROLLER 11/22/2024 7:15 PM JOINT TERMINAL ATTACK CONTROLLER Hesham Madsen MD LAB BLOOD ORDERABLES Final R esult Performing Organization Address [facility] Co de Phone Number [facility] [place] [address] * (ABNORMAL) POCT glucose (11/22/2024 6:56 PM JOINT TERMINAL ATTACK CONTROLLER) [facility] Glucose, POC 316(H) 70 - 199 mg/dL Blood 11/22/2024 6:56 PM JOINT TERMINAL ATTACK CONTROLLER 11/22/2024 6:56 PM JOINT TERMINAL ATTACK CONTROLLER Hesham Madsen MD LAB POCT ORDERABLES - DEVICE Final Result Performing Organization Address [facility] de Phone Number [facility] Department [place] [address] * (ABNORMAL) POCT glucose (11/22/2024 5:27 PM JOINT TERMINAL ATTACK CONTROLLER) Glucose, POC 225(H) 70 - 199 mg/dL Blood 11/22/2024 5:27 PM JOINT TERMINAL ATTACK CONTROLLER 11/22/2024 5:27 PM JOINT TERMINAL ATTACK CONTROLLER Hesham Madsen MD LAB POCT ORDERABLES - DEVICE Final Result [facility] [place] [address] * XR Chest 1 View (11/22/2024 3:32 PM JOINT TERMINAL ATTACK CONTROLLER) Anatomical Region Laterality Modality Body, Chest N/A Digital Radiogra phy 11/22/2024 4:33 PM JOINT TERMINAL ATTACK CONTROLLER Impressions 11/22/2024 5:43 PM JOINT TERMINAL ATTACK CONTROLLER Comparison is made to radiograph dated 11/09/2024. [...] Cesar Bryan M.D. Narrative 11/22/2024 5:43 PM JOINT TERMINAL ATTACK CONTROLLER EXAMINATION: 1 view chest radiograph Procedure Note [...] signed by: Cesar Bryan M.D. Manisha Williamson [employer] IMG XR PROCEDURES Fi nal Result * (ABNORMAL) POCT glucose (11/22/2024 2:42 PM JOINT TERMINAL ATTACK CONTROLLER) Glucose, POC 216(H) 70 - 199 mg/dL Blood 11/22/2024 2:42 PM JOINT TERMINAL ATTACK CONTROLLER 11/22/2024 2:42 PM JOINT TERMINAL ATTACK CONTROLLER Result [facility] Hesham Madsen MD LAB POCT ORDERABLES - DEVICE Final Result Performing Organization Address City/[facility]/ZIP Co de Phone Number [facility] [place] [address] * (ABNORMAL) POCT glucose (11/22/2024 11:57 AM JOINT TERMINAL ATTACK CONTROLLER) Glucose, POC 279(H) 70 - 199 mg/dL Blood 11/22/2024 11:5 7 AM JOINT TERMINAL ATTACK CONTROLLER 11/22/2024 11:57 AM JOINT TERMINAL ATTACK CONTROLLER Result [facility] Hesham Madsen MD LAB POCT ORDERABLES - DEVICE Final Result Performing Organization Address City/[facility]/ZIP Co de Phone Number [facility] [place] [address] * POCT glucose (11/22/2024 8:10 AM JOINT TERMINAL ATTACK CONTROLLER) Glucose, POC 194 70 - 199 mg/dL Blood 11/22/2024 8:10 AM JOINT TERMINAL ATTACK CONTROLLER 11/22/2024 8:10 AM JOINT TERMINAL ATTACK CONTROLLER Hesham Madsen MD LAB POCT ORDERABLES - DEVICE Final Result Performing Organization Address City/[facility]/ZIP Co de Phone Number [facility] [place] [address] * (ABNORMAL) aPTT (11/22/2024 12:22 AM JOINT TERMINAL ATTACK CONTROLLER) [facility] aPTT 96(H) 28 - 38 sec Comment: Interpretive Data Heparin therapeutic range: 66.0 - 100.0 seconds. Range based on correlation with therapeutic heparin activity range of 0.3 - 0.7 Units/mL. Current interpretive data was last revised on 2023. Blood 11/22/2024 12:2 2 AM JOINT TERMINAL ATTACK CONTROLLER 11/22/2024 1:07 AM JOINT TERMINAL ATTACK CONTROLLER Narrative [facility] - 11/22/2024 1:18 AM JOINT TERMINAL ATTACK CONTROLLER STAT PTT timing: - Draw 6 hours [...] NP LAB BLOOD ORDERABLES Final Result [facility] Department [place] [address] * eGFR (2024 10:06 PM JOINT TERMINAL ATTACK CONTROLLER) [facility] eGFR >90 >=60 mL/min/1. 73 m2 Comment: [...] reviewed 2021. Blood 2024 10:0 6 PM JOINT TERMINAL ATTACK CONTROLLER 2024 11:26 PM JOINT TERMINAL ATTACK CONTROLLER Manisha Williamson NP LAB BLOOD ORDERABLES Final Result [facility] Department [place] [address] * Differential, auto (2024 10:06 PM JOINT TERMINAL ATTACK CONTROLLER) Neutrophil abs 5.6 1.5 - 6.5 K/cumm Imm gran abs 0.1 0.0 - 0.1 K/cumm [facility] Lymphocyte abs 1.4 0.8 - 3.3 K/cumm [facility] Monocyte abs 0.8 0.2 - 0.8 K/cumm [facility] Eosinophil abs 0.0 0.0 - 0.5 K/cumm [facility] Basophil abs 0.0 0.0 - 0.1 K/cumm [facility] Neutrophil pct 70.1 % [facility] Comment: Interpretive Data Percent cell count reference ranges are not reported, since discordance with absolute values may lead to misinterpretation of CBC data. Current Interpretive Data was last revised on 2018. Imm gran pct 1.0 % [facility] Comment: Interpretive Data Percent cell count reference ranges are not reported, since discordance with absolute values may lead to misinterpretation of CBC data. Current Interpretive Data was last revised on 2018. Lymphocyte pct 17.9 % [facility] Comment: Interpretive Data Percent cell count reference ranges are not reported, since discordance with absolute values may lead to misinterpretation of CBC data. Current Interpretive Data was last revised on 2018. Monocyte pct 10.6 % [facility] Comment: Interpretive Data Percent cell count reference ranges are not reported, since discordance with absolute values may lead to misinterpretation of CBC data. Current Interpretive Data was last revised on 2018. Eosinophil pct 0.3 % [facility] Comment: Interpretive Data Percent cell count reference ranges are not reported, since discordance with absolute values may lead to misinterpretation of CBC data. Current Interpretive Data was last revised on 2018. Basophil pct 0.1 % [facility] Comment: Interpretive Data Percent cell count reference ranges are not reported, since discordance with absolute values may lead to misinterpretation of CBC data. Current Interpretive Data was last revised on 2018. Blood 2024 10:0 6 PM JOINT TERMINAL ATTACK CONTROLLER 2024 11:29 PM JOINT TERMINAL ATTACK CONTROLLER Manisha Williamson NP LAB BLOOD ORDERABLES Final Result Performing Organization Address City/State/[facility] Co de Phone Number ALLY [facility] Department [place] [address] * Critical Result Callback Hematology (2024 10:06 PM JOINT TERMINAL ATTACK CONTROLLER) Date Notified [id number] Time Notified 5 ALLY WOODARD TestName aPTT ALLY WOODARD Called/Read Back Bobbi STEWART Credentials RN ALLY WOODARD Called By MONE STEWART Blood 2024 10:0 6 PM JOINT TERMINAL ATTACK CONTROLLER 2024 11:37 PM JOINT TERMINAL ATTACK CONTROLLER Manisha Williamson NP LAB BLOOD ORDERABLES Final Result Performing Organization Address City/State/[facility] de Phone Number [facility] Department [place] [address] * (ABNORMAL) CBC with auto differential (2024 10:06 PM JOINT TERMINAL ATTACK CONTROLLER) [facility] WBC 8.0 3.8 - 9.9 K/cumm Hgb 9.2(L) 11.9 - 15.5 g/dL [facility] Hct 34.7(L) 35.6 - 45.5 % [facility] Plt 440(H) 150 - 400 K/cumm [facility] MPV 10.6 9.1 - 12.3 fL [facility] RBC 4.18 3.90 - 5.20 M/cumm [facility] MCV 83.0 81.3 - 96.4 fL [facility] MCH 22.0(L) 27.1 - 33.3 pg [facility] MCHC 26.5(L) 32.3 - 35.7 g/dL [facility] RDW CV 24.4(H) 11.1 - 14.9 % [facility] RDW SD 72.4(H) 35.7 - 48.1 fL [facility] NRBC abs 0.00 0.00 - 0.01 K/cumm [facility] Blood 2024 10:0 6 PM JOINT TERMINAL ATTACK CONTROLLER 2024 11:29 PM JOINT TERMINAL ATTACK CONTROLLER Manisha Williamson NP LAB BLOOD ORDERABLES Final Result Performing Organization Address [facility] de Phone Number [facility] Department [place] [address] * (ABNORMAL) aPTT (2024 10:06 PM JOINT TERMINAL ATTACK CONTROLLER) [facility] aPTT >150(C) 28 - 38 sec Comment: No clot detected in sample.Repeated and verified. Interpretive Data Heparin therapeutic range: 66.0 - 100.0 seconds. Range based on correlation with therapeutic heparin activity range of 0.3 - 0.7 Units/mL. Current interpretive data was last revised on 2023. Blood 2024 10:0 6 PM JOINT TERMINAL ATTACK CONTROLLER 2024 11:29 PM JOINT TERMINAL ATTACK CONTROLLER Narrative [facility] - 11/22/2024 12:02 AM JOINT TERMINAL ATTACK CONTROLLER STAT PTT timing: - Draw 6 hours [...] BLOOD ORDERABLES Final Result Performing Organization Address City/[facility] Co de Phone Number [facility] [place] [address] * Protime-INR (2024 10:06 PM JOINT TERMINAL ATTACK CONTROLLER) PT 11.8 9.7 - 13.0 sec INR 1.09 0.90 - 1.20 [facility] Comment: Interpretive data Oral anticoagulant therapeutic ranges: Venous thromboembolism prophylaxis or treatment: 2.0-3.0 CARDIOLOGY Standard range: 2.0-3.0 High-intensity range: 2.5-3.5 Refer to indication-specific guidelines for appropriate target ranges for prosthetic heart valve replacement. Current interpretive data was last revised on 2019. Blood 2024 10:0 6 PM JOINT TERMINAL ATTACK CONTROLLER 2024 11:29 PM JOINT TERMINAL ATTACK CONTROLLER Hesham Madsen MD LAB BLOOD ORDERABLES Final R esult Performing Organization Address City/[facility]/ZIP Co de Phone Number [facility] Department [place] [address] * (ABNORMAL) Basic metabolic panel (2024 10:06 PM JOINT TERMINAL ATTACK CONTROLLER) Sodium 146(H) 135 - 145 mmol/L Potassium, pl 3.8 3.3 - 4.9 mmol/L [facility] Chloride 105 97 - 110 mmol/L [facility] CO2 35(H) 22 - 32 mmol/L [facility] Anion gap 6 2 - 15 mmol/L [facility] BUN 19 6 - 25 mg/dL [facility] Creatinine 0.44(L) 0.60 - 1.10 mg/dL [facility] Glucose 182 70 - 199 mg/dL [facility] Comment: Interpretive Data Fasting glucose >/= [...] 2022. Calcium 8.5 8.5 - 10.3 mg/dL [facility] Blood 2024 10:0 6 PM JOINT TERMINAL ATTACK CONTROLLER 2024 11:26 PM JOINT TERMINAL ATTACK CONTROLLER Manisha Williamson NP LAB BLOOD ORDERABLES Final Result [facility] Department [place] [address] * (ABNORMAL) POCT glucose (2024 7:21 PM JOINT TERMINAL ATTACK CONTROLLER) Glucose, POC 352(H) 70 - 199 mg/dL Comment:Glu2: RN/ Notified Glucose comment 1 Glu2: RN/MD Notified [facility] Blood 2024 7:21 PM JOINT TERMINAL ATTACK CONTROLLER 2024 7:21 PM JOINT TERMINAL ATTACK CONTROLLER us Hesham Madsen MD LAB POCT ORDERABLES - DEVICE Final Result Performing Organization Address [facility] [place] [address] * (ABNORMAL) POCT glucose (2024 4:43 PM JOINT TERMINAL ATTACK CONTROLLER) Glucose, POC 281(H) 70 - 199 mg/dL Blood 2024 4:43 PM JOINT TERMINAL ATTACK CONTROLLER 2024 4:43 PM JOINT TERMINAL ATTACK CONTROLLER us Hesham Madsen MD LAB POCT ORDERABLES - DEVICE Final Result Performing Organization Address [facility] de Phone Number [facility] [place] [address] * (ABNORMAL) POCT glucose (2024 12:22 PM JOINT TERMINAL ATTACK CONTROLLER) Glucose, POC 211(H) 70 - 199 mg/dL Blood 2024 12:2 2 PM JOINT TERMINAL ATTACK CONTROLLER 2024 12:22 PM JOINT TERMINAL ATTACK CONTROLLER Result [facility] us Hesham Madsen MD LAB POCT ORDERABLES - DEVICE Final Result Performing Organization Address [facility] [place] [address] * (ABNORMAL) POCT glucose (2024 8:06 AM JOINT TERMINAL ATTACK CONTROLLER) Glucose, POC 204(H) 70 - 199 mg/dL Blood 2024 8:06 AM JOINT TERMINAL ATTACK CONTROLLER 2024 8:06 AM JOINT TERMINAL ATTACK CONTROLLER Result Stacie Madsen MD LAB POCT ORDERABLES - DEVICE Final Result Performing Organization Address [facility] de Phone Number [facility] [place] [address] * (ABNORMAL) POCT glucose (2024 3:35 AM JOINT TERMINAL ATTACK CONTROLLER) Glucose, POC 250(H) 70 - 199 mg/dL Comment:Glu2: RN/MD Notified Glucose comment 1 Glu2: RN/MD Notified [facility] Blood 2024 3:35 AM JOINT TERMINAL ATTACK CONTROLLER 2024 3:35 AM JOINT TERMINAL ATTACK CONTROLLER Hesham Madsen MD LAB POCT ORDERABLES - DEVICE Final Result Performing Organization Address [facility] de Phone Number [facility] [place] [address] * (ABNORMAL) POCT glucose (2024 12:12 AM JOINT TERMINAL ATTACK CONTROLLER) [facility] Glucose, POC 210(H) 70 - 199 mg/dL Blood 2024 12:1 2 AM JOINT TERMINAL ATTACK CONTROLLER 2024 12:12 AM JOINT TERMINAL ATTACK CONTROLLER Hesham Madsen MD LAB POCT ORDERABLES - DEVICE Final Result Performing Organization Address [facility] de Phone Number [facility] [place] [address] * (ABNORMAL) Troponin I high-sensitivity 6-hour (11/20/2024 10:13 PM JOINT TERMINAL ATTACK CONTROLLER) Trop I hs 66(H) <=17 ng/L Comment: Interpretive Data For further hscTnI resources including the diagnostic algorithm and an aid in interpretation, copy and paste this link: https://bjhlab.testcatalog.org/show/hsTrop-1 Current Interpretive Data last revised 2020. Trop I hs delta See Comment ng/L [facility] Comment:Inappropriate collec tion time to report a delta. Trop I hs pct delta See Comment % [facility] Comment:Inappropriate collec tion time to report a delta. Trop I hs interp See Comment [facility] Comment:Inappropriate collec tion time to report a delta. Blood 11/20/2024 10:1 3 PM JOINT TERMINAL ATTACK CONTROLLER 11/20/2024 10:49 PM JOINT TERMINAL ATTACK CONTROLLER us Hesham Madsen MD LAB BLOOD ORDERABLES Final R esult Performing Organization Address City/[facility]/ZIP Co de Phone Number ALLY [facility] [place] [address] * eGFR (11/20/2024 10:13 PM JOINT TERMINAL ATTACK CONTROLLER) eGFR >90 >=60 mL/min/1. 73 m2 Comment: [...] reviewed 2021. Blood 11/20/2024 10:1 3 PM JOINT TERMINAL ATTACK CONTROLLER 11/20/2024 10:50 PM JOINT TERMINAL ATTACK CONTROLLER us Manisha Williamson NP LAB BLOOD ORDERABLES Final Result Performing Organization Address City/[facility]/ZIP Co de Phone Number ALLY [facility] [place] [address] * Differential, auto (11/20/2024 10:13 PM JOINT TERMINAL ATTACK CONTROLLER) Neutrophil abs 5.6 1.5 - 6.5 K/cumm Imm gran abs 0.1 0.0 - 0.1 K/cumm [facility] Lymphocyte abs 0.9 0.8 - 3.3 K/cumm [facility] Monocyte abs 0.6 0.2 - 0.8 K/cumm [facility] Eosinophil abs 0.0 0.0 - 0.5 K/cumm [facility] Basophil abs 0.0 0.0 - 0.1 K/cumm [facility] Neutrophil pct 77.4 % [facility] Comment: Interpretive Data Percent cell count reference ranges are not reported, since discordance with absolute values may lead to misinterpretation of CBC data. Current Interpretive Data was last revised on 2018. Imm gran pct 1.7 % [facility] Comment: Interpretive Data Percent cell count reference ranges are not reported, since discordance with absolute values may lead to misinterpretation of CBC data. Current Interpretive Data was last revised on 2018. Lymphocyte pct 12.3 % [facility] Comment: Interpretive Data Percent cell count reference ranges are not reported, since discordance with absolute values may lead to misinterpretation of CBC data. Current Interpretive Data was last revised on 2018. Monocyte pct 8.4 % [facility] Comment: Interpretive Data Percent cell count reference ranges are not reported, since discordance with absolute values may lead to misinterpretation of CBC data. Current Interpretive Data was last revised on 2018. Eosinophil pct 0.1 % [facility] Comment: Interpretive Data Percent cell count reference ranges are not reported, since discordance with absolute values may lead to misinterpretation of CBC data. Current Interpretive Data was last revised on 2018. Basophil pct 0.1 % [facility] Comment: Interpretive Data Percent cell count reference ranges are not reported, since discordance with absolute values may lead to misinterpretation of CBC data. Current Interpretive Data was last revised on 2018. Blood 11/20/2024 10:1 3 PM JOINT TERMINAL ATTACK CONTROLLER 11/20/2024 10:49 PM JOINT TERMINAL ATTACK CONTROLLER Manisha Williamson FURNITURE POLISHER LAB BLOOD ORDERABLES Final Result [facility] [place] [address] * (ABNORMAL) CBC with auto differential (11/20/2024 10:13 PM JOINT TERMINAL ATTACK CONTROLLER) [facility] WBC 7.3 3.8 - 9.9 K/cumm Hgb 9.2(L) 11.9 - 15.5 g/dL [facility] Hct 34.6(L) 35.6 - 45.5 % [facility] Plt 372 150 - 400 K/cumm [facility] MPV 10.2 9.1 - 12.3 fL [facility] RBC 4.19 3.90 - 5.20 M/cumm [facility] MCV 82.6 81.3 - 96.4 fL [facility] MCH 22.0(L) 27.1 - 33.3 pg [facility] MCHC 26.6(L) 32.3 - 35.7 g/dL [facility] RDW CV 24.4(H) 11.1 - 14.9 % [facility] RDW SD 71.1(H) 35.7 - 48.1 fL [facility] NRBC abs 0.00 0.00 - 0.01 K/cumm [facility] Blood 11/20/2024 10:1 3 PM JOINT TERMINAL ATTACK CONTROLLER 11/20/2024 10:49 PM JOINT TERMINAL ATTACK CONTROLLER Manisha Williamson FURNITURE POLISHER LAB BLOOD ORDERABLES Final Result [facility] [place] [address] * (ABNORMAL) aPTT (11/20/2024 10:13 PM JOINT TERMINAL ATTACK CONTROLLER) [facility] aPTT 79(H) 28 - 38 sec Comment: Interpretive Data Heparin therapeutic range: 66.0 - 100.0 seconds. Range based on correlation with therapeutic heparin activity range of 0.3 - 0.7 Units/mL. Current interpretive data was last revised on 2023. Blood 11/20/2024 10:1 3 PM JOINT TERMINAL ATTACK CONTROLLER 11/20/2024 10:53 PM JOINT TERMINAL ATTACK CONTROLLER Narrative [facility] WOOD[facility] - 11/20/2024 11:02 PM JOINT TERMINAL ATTACK CONTROLLER STAT PTT timing: - Draw 6 hours [...] BLOOD ORDERABLES Final Result Performing Organization Address City/[facility] Co de Phone Number [facility] Department [place] [address] * Protime-INR (11/20/2024 10:13 PM JOINT TERMINAL ATTACK CONTROLLER) PT 10.8 9.7 - 13.0 sec INR 1.00 0.90 - 1.20 [facility] Comment: Interpretive data Oral anticoagulant therapeutic ranges: Venous thromboembolism prophylaxis or treatment: 2.0-3.0 CARDIOLOGY Standard range: 2.0-3.0 High-intensity range: 2.5-3.5 Refer to indication-specific guidelines for appropriate target ranges for prosthetic heart valve replacement. Current interpretive data was last revised on 2019. Blood 11/20/2024 10:1 3 PM JOINT TERMINAL ATTACK CONTROLLER 11/20/2024 10:52 PM JOINT TERMINAL ATTACK CONTROLLER Hesham Madsen MD LAB BLOOD ORDERABLES Final R esult [facility] Department [place] [address] * (ABNORMAL) Basic metabolic panel (11/20/2024 10:13 PM JOINT TERMINAL ATTACK CONTROLLER) Sodium 145 135 - 145 mmol/L Potassium, pl 3.2(L) 3.3 - 4.9 mmol/L [facility] Chloride 103 97 - 110 mmol/L [facility] CO2 34(H) 22 - 32 mmol/L [facility] Anion gap 8 2 - 15 mmol/L [facility] BUN 20 6 - 25 mg/dL [facility] Creatinine 0.49(L) 0.60 - 1.10 mg/dL [facility] Glucose 242(H) 70 - 199 mg/dL [facility] Comment: Interpretive Data Fasting glucose >/= [...] 2022. Calcium 8.5 8.5 - 10.3 mg/dL [facility] Blood 11/20/2024 10:1 3 PM JOINT TERMINAL ATTACK CONTROLLER 11/20/2024 10:50 PM JOINT TERMINAL ATTACK CONTROLLER Manisha Williamson NP LAB BLOOD ORDERABLES Final Result [facility] Department [place] [address] * POCT glucose (11/20/2024 8:01 PM JOINT TERMINAL ATTACK CONTROLLER) Glucose, POC 191 70 - 199 mg/dL Blood 11/20/2024 8:01 PM JOINT TERMINAL ATTACK CONTROLLER 11/20/2024 8:01 PM JOINT TERMINAL ATTACK CONTROLLER Hesham Madsen MD LAB POCT ORDERABLES - DEVICE Final Result Performing Organization Address City/[facility]/[place] [address] * POCT glucose (11/20/2024 4:36 PM JOINT TERMINAL ATTACK CONTROLLER) Glucose, POC 197 70 - 199 mg/dL Blood 11/20/2024 4:36 PM JOINT TERMINAL ATTACK CONTROLLER 11/20/2024 4:36 PM JOINT TERMINAL ATTACK CONTROLLER Hesham Madsen MD LAB POCT ORDERABLES - DEVICE Final Result Performing Organization Address [facility] de Phone Number [facility] [place] [address] * (ABNORMAL) aPTT (11/20/2024 2:58 PM JOINT TERMINAL ATTACK CONTROLLER) aPTT 68(H) 28 - 38 sec Comment: Interpretive Data Heparin therapeutic range: 66.0 - 100.0 seconds. Range based on correlation with therapeutic heparin activity range of 0.3 - 0.7 Units/mL. Current interpretive data was last revised on 2023. Blood 11/20/2024 2:58 PM JOINT TERMINAL ATTACK CONTROLLER 11/20/2024 3:24 PM JOINT TERMINAL ATTACK CONTROLLER Narrative [facility] - 11/20/2024 3:46 PM JOINT TERMINAL ATTACK CONTROLLER STAT PTT timing: - Draw 6 hours [...] BLOOD ORDERABLES Final Result Performing Organization Address City/[facility]/ZIP Co de Phone Number [facility] Department [place] [address] * (ABNORMAL) POCT glucose (11/20/2024 11:17 AM JOINT TERMINAL ATTACK CONTROLLER) Glucose, POC 276(H) 70 - 199 mg/dL Blood 11/20/2024 11:1 7 AM JOINT TERMINAL ATTACK CONTROLLER 11/20/2024 11:17 AM JOINT TERMINAL ATTACK CONTROLLER Hesham Madsen MD LAB POCT ORDERABLES - DEVICE Final Result Performing Organization Address [facility] Co de Phone Number [facility] [place] [address] * (ABNORMAL) aPTT (11/20/2024 8:28 AM JOINT TERMINAL ATTACK CONTROLLER) aPTT 70(H) 28 - 38 sec Comment: Interpretive Data Heparin therapeutic range: 66.0 - 100.0 seconds. Range based on correlation with therapeutic heparin activity range of 0.3 - 0.7 Units/mL. Current interpretive data was last revised on 2023. Blood 11/20/2024 8:28 AM JOINT TERMINAL ATTACK CONTROLLER 11/20/2024 9:24 AM JOINT TERMINAL ATTACK CONTROLLER Narrative [facility] - 11/20/2024 9:46 AM JOINT TERMINAL ATTACK CONTROLLER STAT PTT timing: - Draw 6 hours [...] BLOOD ORDERABLES Final Result Performing Organization Address [facility] Co de Phone Number [facility] Department [place] [address] * Protime-INR (11/20/2024 8:28 AM JOINT TERMINAL ATTACK CONTROLLER) [facility] PT 10.7 9.7 - 13.0 sec INR 0.99 0.90 - 1.20 [facility] Comment: Interpretive data Oral anticoagulant therapeutic ranges: Venous thromboembolism prophylaxis or treatment: 2.0-3.0 CARDIOLOGY Standard range: 2.0-3.0 High-intensity range: 2.5-3.5 Refer to indication-specific guidelines for appropriate target ranges for prosthetic heart valve replacement. Current interpretive data was last revised on 2019. Blood 11/20/2024 8:28 AM JOINT TERMINAL ATTACK CONTROLLER 11/20/2024 9:24 AM JOINT TERMINAL ATTACK CONTROLLER Result [facility] Hesham Madsen MD LAB BLOOD ORDERABLES Final R esult Performing Organization Address [facility] Co de Phone Number [facility] Department [place] [address] * POCT glucose (11/20/2024 7:44 AM JOINT TERMINAL ATTACK CONTROLLER) [facility] Glucose, POC 180 70 - 199 mg/dL Blood 11/20/2024 7:44 AM JOINT TERMINAL ATTACK CONTROLLER 11/20/2024 7:44 AM JOINT TERMINAL ATTACK CONTROLLER Hesham Madsen MD LAB POCT ORDERABLES - DEVICE Final Result Performing Organization Address [facility] Co de Phone Number [facility] [place] [address] * (ABNORMAL) Troponin I high-sensitivity 4-hour (11/20/2024 2:16 AM JOINT TERMINAL ATTACK CONTROLLER) [facility] Trop I hs 76(H) <=17 ng/L Comment: Interpretive Data For further [facility]nI resources including the diagnostic algorithm and an aid in interpretation, copy and paste this link: https://bjhlab.testcatalog.org/show/hsTrop-[email or web address] Current Interpretive Data last revised 2020. Trop I hs delta 7 ng/L [facility] Trop I hs interp Equivocal [facility] Blood 11/20/2024 2:16 AM JOINT TERMINAL ATTACK CONTROLLER 11/20/2024 2:59 AM JOINT TERMINAL ATTACK CONTROLLER Hesham Madsen MD LAB BLOOD ORDERABLES Final R esult [facility] Department [place] [address] * (ABNORMAL) CBC without differential (11/20/2024 2:16 AM JOINT TERMINAL ATTACK CONTROLLER) [facility] WBC 9.7 3.8 - 9.9 K/cumm Hgb 10.3(L) 11.9 - 15.5 g/dL [facility] Hct 37.5 35.6 - 45.5 % [facility] Plt 424(H) 150 - 400 K/cumm [facility] MPV 10.4 9.1 - 12.3 fL [facility] RBC 4.61 3.90 - 5.20 M/cumm [facility] MCV 81.3 81.3 - 96.4 fL [facility] MCH 22.3(L) 27.1 - 33.3 pg [facility] MCHC 27.5(L) 32.3 - 35.7 g/dL [facility] RDW CV 24.8(H) 11.1 - 14.9 % [facility] RDW SD 71.2(H) 35.7 - 48.1 fL [facility] NRBC abs 0.03(H) 0.00 - 0.01 K/cumm [facility] Blood 11/20/2024 2:16 AM [employer]OLLER 11/20/2024 2:59 AM [employer] TERMINAL ATTACK CONTROLLER Hesham Madsen MD LAB BLOOD ORDERABLES Final R esult [facility] [place] [address] * (ABNORMAL) Troponin I high-sensitivity 2-hour (11/20/2024 12:24 AM JOINT TERMINAL ATTACK CONTROLLER) Trop I hs 55(H) <=17 ng/L Comment: Reviewed Interpretive Data For further hscTnI resources including the diagnostic algorithm and an aid in interpretation, copy and paste this link: https://bjhlab.testcatalog.org/show/hsTrop-[email or web address] Current Interpretive Data last revised 2020. Trop I hs delta -14(C) ng/L [facility] Comment:Reviewed Trop I hs interp Significa nt(C) [facility] Comment:Reviewed Blood 11/20/2024 12:2 4 AM [employer] ATTACK CONTROLLER 11/20/2024 12:52 AM JO[employer] TERMINAL ATTACK CONTROLLER Hesham Madsen MD LAB BLOOD ORDERABLES Final R esult Performing Organization Address City/[facility] Co de Phone Number [facility] [place] [address] * Critical result callback Cardio chemistry (11/20/2024 12:24 AM JOINT TERMINAL ATTACK CONTROLLER) Date Notified [id number] Time Notified 156 [facility] Test name Trop I hs 2hr d [facility] WOODARD Called/Read Back Carina Sherine [facility] WOODARD Credentials RN [facility] WOODARD Called By REINA WOODARD Blood 11/20/2024 12:2 4 AM JO[employer] TERMINAL ATTACK CONTROLLER 11/20/2024 12:52 AM JO[employer] ATT[employer] CONTROLLER Hesham Madsen MD LAB BLOOD ORDERABLES Final R esult [facility] [place] [address] * eGFR (11/20/2024 12:24 AM JOINT TERMIN[employer] ATTACK CONTROLLER) eGFR >90 >=60 mL/min/1. 73 m2 Comment: [...] reviewed 2021. Blood 11/20/2024 12:2 4 AM JO[employer]MINAL ATTACK CONTROLLER 11/20/2024 12:51 AM JOINT TERMINAL ATTACK CONTROLLER Manisha Williamson NP LAB BLOOD ORDERABLES Final Result [facility] Department [place] [address] * (ABNORMAL) aPTT (11/20/2024 12:24 AM JOINT TERMIN[employer] ATTACK CONTROLLER) aPTT 45(H) 28 - 38 sec Comment: Interpretive Data Heparin therapeutic range: 66.0 - 100.0 seconds. Range based on correlation with therapeutic heparin activity range of 0.3 - 0.7 Units/mL. Current interpretive data was last revised on 2023. Blood 11/20/2024 12:2 4 AM JOINT [employer]MINAL ATTACK CONTROLLER 11/20/2024 12:58 AM JOINT TERMINAL ATTACK CONTROLLER Narrative [facility] - 11/20/2024 1:07 AM JOINT TERMINAL ATTACK CONTROLLER STAT PTT timing: - Draw 6 hours [...] Williamson NP LAB BLOOD ORDERABLES Final Result [facility] Department [place] [address] * (ABNORMAL) Basic metabolic panel (11/20/2024 12:24 AM JOINT TERMINAL ATTACK CONTROLLER) Sodium 144 135 - 145 mmol/L Potassium, pl 3.8 3.3 - 4.9 mmol/L [facility] Chloride 105 97 - 110 mmol/L [facility] CO2 29 22 - 32 mmol/L [facility] Anion gap 10 2 - 15 mmol/L [facility] BUN 20 6 - 25 mg/dL [facility] Creatinine 0.60 0.60 - 1.10 mg/dL [facility] Glucose 277(H) 70 - 199 mg/dL [facility] Comment: Interpretive Data Fasting glucose >/= [...] 2022. Calcium 8.7 8.5 - 10.3 mg/dL [facility] Blood 11/20/2024 12:2 4 AM JO[employer] TERMINAL ATTACK CONTROLLER 11/20/2024 12:51 AM JOINT TERMINAL ATTACK CONTROLLER Manisha Williamson NP LAB BLOOD ORDERABLES Final Result Performing Organization Address [facility] Co de Phone Number [facility] Department [place] [address] * (ABNORMAL) POCT glucose (11/19/2024 11:01 PM JOINT TERMINAL ATTACK CONTROLLER) Pathologist [facility] Glucose, POC 228(H) 70 - 199 mg/dL Blood 11/19/2024 11:0 1 PM JOINT TERMINAL ATTACK CONTROLLER 11/19/2024 11:01 PM JOINT TERMINAL ATTACK CONTROLLER Result [facility] Hesham Madsen MD LAB POCT ORDERABLES - DEVICE Final Result Performing Organization Address [facility] Phone Number [facility] Department [place] [address] * (ABNORMAL) Troponin I high-sensitivity series (baseline, 2hr, 4hr, 6hr) (11/19/2024 10:15 PM JOINT TERMINAL ATTACK CONTROLLER) [facility] Trop I hs 69(H) <=17 ng/L Comment: Interpretive Data For further hscTnI resources including the diagnostic algorithm and an aid in interpretation, copy and paste this link: https://bjhlab.testcatalog.org/show/[email or web address] Current Interpretive Data last revised 2020. Blood 11/19/2024 10:1 5 PM JOINT TERMINAL ATTACK CONTROLLER 11/19/2024 10:57 PM JOINT TERMINAL ATTACK CONTROLLER Result [facility] Hesham Madsen MD LAB BLOOD ORDERABLES Final R esult Performing Organization Address [facility] Co de Phone Number [facility] Department [place] [address] * ECG 12 lead (11/19/2024 10:11 PM JOINT TERMINAL ATTACK CONTROLLER) [facility] Ventricular Rate EKG/Min 96 BPM [facility] Atrial Rate 96 BPM [facility] DE-Interval (MSEC) 128 ms [facility] QRS-Interval (MSEC) 88 ms [facility] QT-Interval (MSEC) 406 ms [facility] QTc 512 ms [facility] P [place] 101 degrees [facility] R [place] -18 degrees [facility] T [place] 48 degrees [facility] Diagnosis Sinus rhythm with Premature atrial complexes Minimal voltage criteria for LVH, may be normal variant ( R in aVL ) Borderline ECG When compared with ECG of 23-AUG-2024 04:13, No significant change was found Confirmed by JANEEN RICHARDS M.D ([id number]) on 11/22/2024 6:07:10 PM [facility] 11/19/2024 10:1 1 PM JO[employer] TERMINAL ATTACK CONTROLLER 11/22/2024 6:07 PM JOINT TERMINAL ATTACK CONTROLLER Hesham Madsen MD ECG ORDERABLES Final Result [facility] * (ABNORMAL) POCT glucose (11/19/2024 7:20 PM JOINT TERMINAL ATTACK CONTROLLER) [facility] Glucose, POC 218(H) 70 - 199 mg/dL Blood 11/19/2024 7:20 PM JOINT TERMINAL ATTACK CONTROLLER 11/19/2024 7:20 PM JOINT TERMINAL ATTACK CONTROLLER Hesham Madsen MD LAB POCT ORDERABLES - DEVICE Final Result [facility] Department [place] [address] * (ABNORMAL) POCT glucose (11/19/2024 4:39 PM JOINT TERMINAL ATTACK CONTROLLER) [facility] Glucose, POC 253(H) 70 - 199 mg/dL Blood 11/19/2024 4:39 PM JOINT TERMINAL ATTACK CONTROLLER 11/19/2024 4:39 PM JOINT TERMINAL ATTACK CONTROLLER Hesham Madsen MD LAB POCT ORDERABLES - DEVICE Final Result Performing Organization Address [facility] Co de Phone Number [facility] [place] [address] * aPTT (11/19/2024 3:39 PM JOINT TERMINAL ATTACK CONTROLLER) [facility] aPTT 32 28 - 38 sec Comment: Interpretive Data Heparin therapeutic range: 66.0 - 100.0 seconds. Range based on correlation with therapeutic heparin activity range of 0.3 - 0.7 Units/mL. Current interpretive data was last revised on 2023. Blood 11/19/2024 3:39 PM JOINT TERMINAL ATTACK CONTROLLER 11/19/2024 4:31 PM JOINT TERMINAL ATTACK CONTROLLER Narrative [facility] - 11/19/2024 4:40 PM JOINT TERMINAL ATTACK CONTROLLER STAT PTT timing: - Draw 6 hours [...] BLOOD ORDERABLES Final Result Performing Organization Address [facility] Co de Phone Number [facility] Department [place] [address] * (ABNORMAL) POCT glucose (11/19/2024 12:05 PM JOINT TERMINAL ATTACK CONTROLLER) [facility] Glucose, POC 289(H) 70 - 199 mg/dL Blood 11/19/2024 12:0 5 PM JOINT TERMINAL ATTACK CONTROLLER 11/19/2024 12:05 PM JOINT TERMINAL ATTACK CONTROLLER Hesham Madsen MD LAB POCT ORDERABLES - DEVICE Final Result Performing Organization Address City/[facility] Co de Phone Number [facility] WOOD[facility] [place] [address] * (ABNORMAL) POCT glucose (11/19/2024 12:03 PM JOINT TERMINAL ATTACK CONTROLLER) Glucose, POC 335(H) 70 - 199 mg/dL Blood 11/19/2024 12:0 3 PM JOINT TERMINAL ATTACK CONTROLLER 11/19/2024 12:03 PM JOINT TERMINAL ATTACK CONTROLLER Hesham Madsen MD LAB POCT ORDERABLES - DEVICE Final Result Performing Organization Address [facility] de Phone Number [facility] [place] [address] * eGFR (11/19/2024 8:52 AM JOINT TERMINAL ATTACK CONTROLLER) eGFR >90 >=60 mL/min/1. 73 m2 Comment: [...] last reviewed 2021. Blood 11/19/2024 8:52 AM JOINT TERMINAL ATTACK CONTROLLER 11/19/2024 9:45 AM JOINT TERMINAL ATTACK CONTROLLER us Manisha Nettie Greubel [employer] LAB BLOOD ORDERABLES Final Result [facility] Department [place] [address] * (ABNORMAL) Differential, auto (11/19/2024 8:52 AM JOINT TERMINAL ATTACK CONTROLLER) Neutrophil abs 8.8(H) 1.5 - 6.5 K/cumm Imm gran abs 0.2(H) 0.0 - 0.1 K/cumm [facility] Lymphocyte abs 1.3 0.8 - 3.3 K/cumm [facility] Monocyte abs 0.9(H) 0.2 - 0.8 K/cumm [facility] Eosinophil abs 0.0 0.0 - 0.5 K/cumm [facility] Basophil abs 0.0 0.0 - 0.1 K/cumm [facility] Neutrophil pct 79.2 % [facility] Comment: Interpretive Data Percent cell count reference ranges are not reported, since discordance with absolute values may lead to misinterpretation of CBC data. Current Interpretive Data was last revised on 2018. Imm gran pct 1.3 % [facility] Comment: Interpretive Data Percent cell count reference ranges are not reported, since discordance with absolute values may lead to misinterpretation of CBC data. Current Interpretive Data was last revised on 2018. Lymphocyte pct 11.7 % [facility] Comment: Interpretive Data Percent cell count reference ranges are not reported, since discordance with absolute values may lead to misinterpretation of CBC data. Current Interpretive Data was last revised on 2018. Monocyte pct 7.6 % [facility] Comment: Interpretive Data Percent cell count reference ranges are not reported, since discordance with absolute values may lead to misinterpretation of CBC data. Current Interpretive Data was last revised on 2018. Eosinophil pct 0.0 % [facility] Comment: Interpretive Data Percent cell count reference ranges are not reported, since discordance with absolute values may lead to misinterpretation of CBC data. Current Interpretive Data was last revised on 2018. Basophil pct 0.2 % [facility] Comment: Interpretive Data Percent cell count reference ranges are not reported, since discordance with absolute values may lead to misinterpretation of CBC data. Current Interpretive Data was last revised on 2018. Blood 11/19/2024 8:52 AM JOINT TERMINAL ATTACK CONTROLLER 11/19/2024 9:45 AM JOINT TERMINAL ATTACK CONTROLLER Manisha Williamson NP LAB BLOOD ORDERABLES Final Result Performing Organization Address City/[facility] Co de Phone Number [facility] [place] [address] * (ABNORMAL) CBC with auto differential (11/19/2024 8:52 AM JOINT TERMINAL ATTACK CONTROLLER) WBC 11.2(H) 3.8 - 9.9 K/cumm Hgb 9.8(L) 11.9 - 15.5 g/dL [facility] Hct 36.0 35.6 - 45.5 % [facility] Plt 418(H) 150 - 400 K/cumm [facility] MPV 10.4 9.1 - 12.3 fL [facility] RBC 4.52 3.90 - 5.20 M/cumm [facility] MCV 79.6(L) 81.3 - 96.4 fL [facility] MCH 21.7(L) 27.1 - 33.3 pg [facility] MCHC 27.2(L) 32.3 - 35.7 g/dL [facility] RDW CV 24.7(H) 11.1 - 14.9 % [facility] RDW SD 70.4(H) 35.7 - 48.1 fL [facility] NRBC abs 0.04(H) 0.00 - 0.01 K/cumm [facility] Blood 11/19/2024 8:52 AM JOINT TERMINAL ATTACK CONTROLLER 11/19/2024 9:45 AM JOINT TERMINAL ATTACK CONTROLLER Manisha Williamson NP LAB BLOOD ORDERABLES Final Result Performing Organization Address City/[facility]/ZIP Co de Phone Number [facility] [place] [address] * (ABNORMAL) aPTT (11/19/2024 8:52 AM JOINT TERMINAL ATTACK CONTROLLER) aPTT 27(L) 28 - 38 sec Comment: Interpretive Data Heparin therapeutic range: 66.0 - 100.0 seconds. Range based on correlation with therapeutic heparin activity range of 0.3 - 0.7 Units/mL. Current interpretive data was last revised on 2023. Blood 11/19/2024 8:52 AM JOINT TERMINAL ATTACK CONTROLLER 11/19/2024 9:50 AM JOINT TERMINAL ATTACK CONTROLLER Narrative [facility] - 11/19/2024 10:00 AM JOINT TERMINAL ATTACK CONTROLLER Baseline prior to heparin initiation Manisha Williamson LAB BLOOD ORDERABLES Final Result Performing Organization Address City/[facility] Co de Phone Number [facility] Department [place] [address] * Protime-INR (11/19/2024 8:52 AM JOINT TERMINAL ATTACK CONTROLLER) PT 10.2 9.7 - 13.0 sec INR 0.95 0.90 - 1.20 [facility] Comment: Interpretive data Oral anticoagulant therapeutic ranges: Venous thromboembolism prophylaxis or treatment: 2.0-3.0 CARDIOLOGY Standard range: 2.0-3.0 High-intensity range: 2.5-3.5 Refer to indication-specific guidelines for appropriate target ranges for prosthetic heart valve replacement. Current interpretive data was last revised on 2019. Blood 11/19/2024 8:52 AM JOINT TERMINAL ATTACK CONTROLLER 11/19/2024 9:50 AM JOINT TERMINAL ATTACK CONTROLLER Narrative [facility] - 11/19/2024 10:00 AM JOINT TERMINAL ATTACK CONTROLLER Baseline prior to heparin initiation Manisha Williamson LAB BLOOD ORDERABLES Final Result Performing Organization Address City/[facility] Co de Phone Number [facility] Department [place] [address] * (ABNORMAL) Hemoglobin A1c (11/19/2024 8:52 AM JOINT TERMINAL ATTACK CONTROLLER) [facility] Hgb A1C 6.0(H) 4.0 - 5.6 % Estimated Average Glucose 126 mg/dL [facility] Comment: The ADA recommends reporting an estimated Average Glucose (eAG) with all Hemoglobin A1c results using the equation derived from a study of 507 normal and diabetic adults. Minority populations were underrepresented and children were not included. (Diabetes Care 2020; 43(S1): S66-S76). The eAG is not equivalent to a fasting glucose. Blood 11/19/2024 8:52 AM JOINT TERMINAL ATTACK CONTROLLER 11/19/2024 9:49 AM JOINT TERMINAL ATTACK CONTROLLER Narrative [facility] - 11/19/2024 4:17 PM JOINT TERMINAL ATTACK CONTROLLER reflex Hesham Madsen MD LAB BLOOD ORDERABLES Final R esult [facility] Department [place] [address] * (ABNORMAL) Basic metabolic panel (11/19/2024 8:52 AM JOINT TERMINAL ATTACK CONTROLLER) [facility] Sodium 145 135 - 145 mmol/L Potassium, pl 4.0 3.3 - 4.9 mmol/L [facility] Chloride 104 97 - 110 mmol/L [facility] CO2 30 22 - 32 mmol/L [facility] Anion gap 11 2 - 15 mmol/L [facility] BUN 18 6 - 25 mg/dL [facility] Creatinine 0.52(L) 0.60 - 1.10 mg/dL [facility] Glucose 241(H) 70 - 199 mg/dL [facility] Comment: Interpretive Data Fasting glucose >/= [...] Calcium 9.4 8.5 - 10.3 mg/dL [facility] Blood 11/19/2024 8:52 AM JOINT TERMINAL ATTACK CONTROLLER 11/19/2024 9:45 AM JOINT TERMINAL ATTACK CONTROLLER Manisha Williamson NP LAB BLOOD ORDERABLES Final Result Performing Organization Address City/[facility] Co de Phone Number [facility] Department [place] [address] * POCT glucose (11/19/2024 7:46 AM JOINT TERMINAL ATTACK CONTROLLER) Glucose, POC 147 70 - 199 mg/dL Blood 11/19/2024 7:46 AM JOINT TERMINAL ATTACK CONTROLLER 11/19/2024 7:46 AM JOINT TERMINAL ATTACK CONTROLLER Hesham Madsen MD LAB POCT ORDERABLES - DEVICE Final Result Performing Organization Address [facility] de Phone Number [facility] Department [place] [address] * eGFR (11/19/2024 4:37 AM JOINT TERMINAL ATTACK CONTROLLER) eGFR >90 >=60 mL/min/1. 73 m2 Comment: [...] last reviewed 2021. Blood 11/19/2024 4:37 AM JOINT TERMINAL ATTACK CONTROLLER 11/19/2024 5:29 AM JOINT TERMINAL ATTACK CONTROLLER Hesham Madsen MD LAB BLOOD ORDERABLES Final R esult Performing Organization Address [facility] Co de Phone Number [facility] Department [place] [address] * (ABNORMAL) CBC without differential (11/19/2024 4:37 AM JOINT TERMINAL ATTACK CONTROLLER) WBC 9.2 3.8 - 9.9 K/cumm Hgb 9.0(L) 11.9 - 15.5 g/dL [facility] Hct 32.2(L) 35.6 - 45.5 % [facility] Plt 335 150 - 400 K/cumm [facility] MPV 10.1 9.1 - 12.3 fL [facility] RBC 4.07 3.90 - 5.20 M/cumm [facility] MCV 79.1(L) 81.3 - 96.4 fL [facility] MCH 22.1(L) 27.1 - 33.3 pg [facility] MCHC 28.0(L) 32.3 - 35.7 g/dL [facility] RDW CV 24.2(H) 11.1 - 14.9 % [facility] RDW SD 68.3(H) 35.7 - 48.1 fL [facility] NRBC abs 0.04(H) 0.00 - 0.01 K/cumm [facility] Blood 11/19/2024 4:37 AM JOINT TERMINAL ATTACK CONTROLLER 11/19/2024 5:29 AM JOINT TERMINAL ATTACK CONTROLLER Hesham Madsen MD LAB BLOOD ORDERABLES Final R esult Performing Organization Address City/[facility]/ZIP Co de Phone Number [facility] [place] [address] * (ABNORMAL) Basic metabolic panel (11/19/2024 4:37 AM JOINT TERMINAL ATTACK CONTROLLER) Sodium 146(H) 135 - 145 mmol/L Potassium, pl 3.6 3.3 - 4.9 mmol/L [facility] Chloride 105 97 - 110 mmol/L [facility] CO2 32 22 - 32 mmol/L [facility] Anion gap 9 2 - 15 mmol/L [facility] BUN 19 6 - 25 mg/dL [facility] Creatinine 0.51(L) 0.60 - 1.10 mg/dL [facility] Glucose 175 70 - 199 mg/dL [facility] Comment: Interpretive Data Fasting glucose >/= [...] 2022. Calcium 8.8 8.5 - 10.3 mg/dL [facility] Blood 11/19/2024 4:37 AM JOINT TERMINAL ATTACK CONTROLLER 11/19/2024 5:29 AM JOINT TERMINAL ATTACK CONTROLLER us Hesham Madsen MD LAB BLOOD ORDERABLES Final R esult Performing Organization Address City/[facility]/ZIP Co de Phone Number [facility] Department [place] [address] * POCT glucose (11/19/2024 2:58 AM JOINT TERMINAL ATTACK CONTROLLER) Glucose, POC 179 70 - 199 mg/dL Blood 11/19/2024 2:58 AM JOINT TERMINAL ATTACK CONTROLLER 11/19/2024 2:58 AM JOINT TERMINAL ATTACK CONTROLLER Hesham Madsen MD LAB POCT ORDERABLES - DEVICE Final Result Performing Organization Address [facility]/ZIP Co de Phone Number [facility] Department [place] [address] * (ABNORMAL) POCT glucose (11/18/2024 10:55 PM JOINT TERMINAL ATTACK CONTROLLER) Pathologist [facility] Glucose, POC 234(H) 70 - 199 mg/dL Comment:Glu2: RN/MD Notified Glucose comment 1 Glu2: RN/MD Notified [facility] Blood 11/18/2024 10:5 5 PM JOINT TERMINAL ATTACK CONTROLLER 11/18/2024 10:55 PM JOINT TERMINAL ATTACK CONTROLLER Hesham Madsen MD LAB POCT ORDERABLES - DEVICE Final Result [facility] Department [place] [address] * POCT glucose (11/18/2024 7:25 PM JOINT TERMINAL ATTACK CONTROLLER) [facility] Glucose, POC 160 70 - 199 mg/dL Blood 11/18/2024 7:25 PM JOINT TERMINAL ATTACK CONTROLLER 11/18/2024 7:25 PM JOINT TERMINAL ATTACK CONTROLLER Hesham Madsen MD LAB POCT ORDERABLES - DEVICE Final Result [facility] Department [place] [address] * (ABNORMAL) Differential, auto (11/18/2024 5:53 PM JOINT TERMINAL ATTACK CONTROLLER) [facility] Neutrophil abs 8.6(H) 1.5 - 6.5 K/cumm Imm gran abs 0.1 0.0 - 0.1 K/cumm [facility] Lymphocyte abs 1.1 0.8 - 3.3 K/cumm [facility] Monocyte abs 0.8 0.2 - 0.8 K/cumm [facility] Eosinophil abs 0.0 0.0 - 0.5 K/cumm [facility] Basophil abs 0.0 0.0 - 0.1 K/cumm [facility] Neutrophil pct 81.0 % [facility] Comment: Interpretive Data Percent cell count reference ranges are not reported, since discordance with absolute values may lead to misinterpretation of CBC data. Current Interpretive Data was last revised on 2018. Imm gran pct 1.2 % [facility] Comment: Interpretive Data Percent cell count reference ranges are not reported, since discordance with absolute values may lead to misinterpretation of CBC data. Current Interpretive Data was last revised on 2018. Lymphocyte pct 10.2 % [facility] Comment: Interpretive Data Percent cell count reference ranges are not reported, since discordance with absolute values may lead to misinterpretation of CBC data. Current Interpretive Data was last revised on 2018. Monocyte pct 7.4 % [facility] Comment: Interpretive Data Percent cell count reference ranges are not reported, since discordance with absolute values may lead to misinterpretation of CBC data. Current Interpretive Data was last revised on 2018. Eosinophil pct 0.0 % [facility] Comment: Interpretive Data Percent cell count reference ranges are not reported, since discordance with absolute values may lead to misinterpretation of CBC data. Current Interpretive Data was last revised on 2018. Basophil pct 0.2 % [facility] Comment: Interpretive Data Percent cell count reference ranges are not reported, since discordance with absolute values may lead to misinterpretation of CBC data. Current Interpretive Data was last revised on 2018. Blood 11/18/2024 5:53 PM JOINT [employer]MINAL ATTACK CONTROLLER 11/18/2024 6:08 PM JOINT TERMINAL ATTACK CONTROLLER Hesham Madsen MD LAB BLOOD ORDERABLES Final R esult [facility] Department of Laboratories [place], [place] [id number] * (ABNORMAL) CBC with auto differential (11/18/2024 5:53 PM JOINT TERMINAL ATTACK CONTROLLER) WBC 10.6(H) 3.8 - 9.9 K/cumm Hgb 8.9(L) 11.9 - 15.5 g/dL [facility] Hct 33.2(L) 35.6 - 45.5 % [facility] Plt 341 150 - 400 K/cumm [facility] MPV 9.9 9.1 - 12.3 fL [facility] RBC 4.05 3.90 - 5.20 M/cumm [facility] [facility] MCV 82.0 81.3 - 96.4 fL [facility] MCH 22.0(L) 27.1 - 33.3 pg [facility] MCHC 26.8(L) 32.3 - 35.7 g/dL [facility] RDW CV 23.8(H) 11.1 - 14.9 % [facility] RDW SD 71.2(H) 35.7 - 48.1 fL [facility] NRBC abs 0.04(H) 0.00 - 0.01 K/cumm [facility] Blood 11/18/2024 5:53 PM JOINT TERMINAL ATTACK CONTROLLER 11/18/2024 6:08 PM JOINT TERMINAL ATTACK CONTROLLER Hesham Madsen MD LAB BLOOD ORDERABLES Final R esult [facility] [place] [address] * POCT glucose (11/18/2024 4:41 PM JOINT TERMINAL ATTACK CONTROLLER) [facility] Glucose, POC 195 70 - 199 mg/dL Blood 11/18/2024 4:41 PM JOINT TERMINAL ATTACK CONTROLLER 11/18/2024 4:41 PM JOINT TERMINAL ATTACK CONTROLLER Hesham Madsen MD LAB POCT ORDERABLES - DEVICE Final Result [facility] Department [place] [address] * Transfuse RBC (11/18/2024 3:42 PM JOINT TERMINAL ATTACK CONTROLLER) Blood Hesham Madsen MD BLOOD TRANSFUSION ORDERAB[place] [address] * POCT glucose (11/18/2024 2:03 PM JOINT TERMINAL ATTACK CONTROLLER) Glucose, POC 101 70 - 199 mg/dL Blood 11/18/2024 2:03 PM JOINT TERMINAL ATTACK CONTROLLER 11/18/2024 2:03 PM JOINT TERMINAL ATTACK CONTROLLER Hesham Madsen MD LAB POCT ORDERABLES - DEVICE Final Result Performing Organization Address City/[facility] [place] [address] * POCT glucose (11/18/2024 1:15 PM JOINT TERMINAL ATTACK CONTROLLER) Glucose, POC 96 70 - 199 mg/dL Blood 11/18/2024 1:15 PM JOINT TERMINAL ATTACK CONTROLLER 11/18/2024 1:15 PM JOINT TERMINAL ATTACK CONTROLLER Hesham Madsen MD LAB POCT ORDERABLES - DEVICE Final Result Performing Organization Address City/[facility]/ZIP Co de Phone Number [facility] [place] [address] * POCT glucose (11/18/2024 12:02 PM JOINT TERMINAL ATTACK CONTROLLER) Glucose, POC 138 70 - 199 mg/dL Blood 11/18/2024 12:0 2 PM JOINT TERMINAL ATTACK CONTROLLER 11/18/2024 12:02 PM JOINT TERMINAL ATTACK CONTROLLER Hesham Madsen MD LAB POCT ORDERABLES - DEVICE Final Result Performing Organization Address City/[facility]/[place] [address] * POCT glucose (11/18/2024 11:13 AM JOINT TERMINAL ATTACK CONTROLLER) Glucose, POC 164 70 - 199 mg/dL Blood 11/18/2024 11:1 3 AM JOINT TERMINAL ATTACK CONTROLLER 11/18/2024 11:13 AM JOINT TERMINAL ATTACK CONTROLLER Hesham Madsen MD LAB POCT ORDERABLES - DEVICE Final Result Performing Organization Address [facility] [place] [address] * Type and screen (11/18/2024 10:26 AM JOINT TERMINAL ATTACK CONTROLLER) Pathologist [facility] Heath, indirect Negative ABO Rh A Positive [facility] Blood 11/18/2024 10:2 6 AM JOINT TERMINAL ATTACK CONTROLLER 11/18/2024 10:49 AM JOINT TERMINAL ATTACK CONTROLLER Narrative [facility] - 11/18/2024 11:56 AM JOINT TERMINAL ATTACK CONTROLLER Has the patient had Daratumumab or Isatuximab in the past 6 months?->Unknown Hesham Madsen MD LAB BLOOD BANK TEST ORDERABL ES Final Result Performing Organization Address [facility] [place] [address] * (ABNORMAL) POCT glucose (11/18/2024 10:13 AM JOINT TERMINAL ATTACK CONTROLLER) Pathologist [facility] Glucose, POC 207(H) 70 - 199 mg/dL Blood 11/18/2024 10:1 3 AM JOINT TERMINAL ATTACK CONTROLLER 11/18/2024 10:13 AM JOINT TERMINAL ATTACK CONTROLLER Hesham Madsen MD LAB POCT ORDERABLES - DEVICE Final Result Performing Organization Address [facility] [place] [address] * Prepare RBC: 1 Units (11/18/2024 9:58 AM JOINT TERMINAL ATTACK CONTROLLER) Product code [id number] Unit Number [id number] [facility] Product Blood Type APOS [facility] Dispense Status PRESUMED TRANSFUSED [facility] Blood 11/18/2024 9:58 AM JOINT TERMINAL ATTACK CONTROLLER 11/18/2024 9:58 AM JOINT TERMINAL ATTACK CONTROLLER Narrative [facility] - 11/19/2024 12:56 AM JOINT TERMINAL ATTACK CONTROLLER Are special requirements needed? (All products are leukoreduced and CMV- safe)- >No Date required:-[id number] LRRBC # of [id number] Reasons:-Cardiovascular disease, Hgb <8 g/dL} us Hesham Madsen MD BLOOD BANK PRODUCT ORDERABLE S Final Result [facility] Department [place] [address] * (ABNORMAL) POC Blood Gas and Chemistries, Arterial - (11/18/2024 9:39 AM JOINT TERMINAL ATTACK CONTROLLER) pH, Art POC 7.51(H) 7.35 - 7.45 pCO2, Art POC 36 35 - 45 mmHg [facility] pO2, Art POC 122(H) 83 - 108 mmHg [facility] Na, POC 140 135 - 145 mmol/L [facility] K POC 4.3 3.3 - 4.9 mmol/L [facility] Comment: Interpretive Data Not all point of care methods assess for hemolysis. Confirm with instrument and retest K+ if not consistent with clinical signs and symptoms. Current Interpretive Data was last revised on 2024. Cl, POC 108 97 - 110 mmol/L [facility] Ionized Ca, POC 4.82 4.50 - 5.10 mg/dL [facility] Glucose, POC 197 70 - 199 mg/dL [facility] Lactate, POC 2.1(H) 0.7 - 2.0 mmol/L [facility] SO2 (jesus alberto) arterial 99(H) 90 - 95 % [facility] Base excess, POC 5.3 mmol/L [facility] HCO3, Art POC 29 20 - 30 mmol/L [facility] Hct, POC 23.0(L) 36.3 - 45.3 % [facility] Total Hb, POC 7.6(L) 11.9 - 15.5 g/dL [facility] Blood 11/18/2024 9:39 AM JOINT TERMINAL ATTACK CONTROLLER 11/18/2024 9:39 AM JOINT TERMINAL ATTACK CONTROLLER Hesham Madsen MD LAB POCT ORDERABLES - DEVICE Final Result [facility] Department [place] [address] * DE AN PROCEDURE PLACEHOLDER (11/18/2024 9:01 AM JOINT TERMINAL ATTACK CONTROLLER) Narrative Dwight Quintero CRNA - 11/18/2024 9:01 AM JOINT TERMINAL ATTACK CONTROLLER Dwight Quintero CRNA 11/18/2024 9:01 AM Peripheral IV Catheter Patient location: pre-op holding Staff: Placed by: TECHNICIAN BIOLOGICAL HEALTH: Dwight Quintero CRNA Preprocedure prep: Prep solution: chlorhexadine PPE: gloves and provider hat/mask PIV line: Laterality: right Site: forearm Catheter size: 22 g Technique: anatomical landmarks and direct visualization Procedure details: good blood return and occlusive dressing applied Number of attempts: 1 Assessment: Events: patient tolerated procedure well with no complications Result [facility] Elba Medina MD PhD ANESTHESIA ORDERABLES Final R esult * DE AN PROCEDURE PLACEHOLDER (11/18/2024 9:01 AM JOINT TERMINAL ATTACK CONTROLLER) Narrative Dwight Quintero CRNA - 11/18/2024 9:01 AM JOINT TERMINAL ATTACK CONTROLLER Dwight Quintero CRNA 11/18/2024 9:01 AM Peripheral [...] PhD ANESTHESIA ORDERABLES Final R esult * DE AN ELECTIVE ENDOTRACHEAL AIRWAY, DE AN PROCEDURE PLACEHOLDER (11/18/2024 9:00 AM JOINT TERMINAL ATTACK CONTROLLER) Narrative Dwight Quintero CRNA - 11/18/2024 9:00 AM JOINT TERMINAL ATTACK CONTROLLER Dwight Quintero CRNA 11/18/2024 9:01 AM Airway Patient location: OR Urgency: elective Indications for airway management: anesthesia and airway protection Difficult airway: no Staff: Supervising provider: Elba Medina MD PhD Placed by: TECHNICIAN BIOLOGICAL HEALTH: Dwight Quintero CRNA Emergent airway documentation: Risks [...] * (ABNORMAL) POCT glucose (11/18/2024 8:48 AM JOINT TERMINAL ATTACK CONTROLLER) Glucose, POC 239(H) 70 - 199 mg/dL Blood 11/18/2024 8:48 AM JOINT TERMINAL ATTACK CONTROLLER 11/18/2024 8:48 AM JOINT TERMINAL ATTACK CONTROLLER us Hesham Madsen MD LAB POCT ORDERABLES - DEVICE Final Result [facility] Department [place] [address] * POCT glucose (11/18/2024 6:37 AM JOINT TERMINAL ATTACK CONTROLLER) Glucose, POC 183 70 - 199 mg/dL Blood 11/18/2024 6:37 AM JOINT TERMINAL ATTACK CONTROLLER 11/18/2024 6:37 AM JOINT TERMINAL ATTACK CONTROLLER Hesham Madsen MD LAB POCT ORDERABLES - DEVICE Final Result Performing Organization Address City/[facility]/ZIP Co de Phone Number [facility] Department [place] [address] * (ABNORMAL) POCT glucose (11/17/2024 11:48 AM JOINT TERMINAL ATTACK CONTROLLER) Glucose, POC 320(H) 70 - 199 mg/dL Blood 11/17/2024 11:4 8 AM JOINT TERMINAL ATTACK CONTROLLER 11/17/2024 11:48 AM JOINT TERMINAL ATTACK CONTROLLER Jaylene Huang MD LAB POCT ORDERABLES - DEVICE Final Result Performing Organization Address [facility] Co de Phone Number [facility] ([place]) [address] [facility] [place] [address] * POCT glucose (11/17/2024 7:55 AM JOINT TERMINAL ATTACK CONTROLLER) Glucose, POC 189 70 - 199 mg/dL Blood 11/17/2024 7:55 AM JOINT TERMINAL ATTACK CONTROLLER 11/17/2024 7:55 AM JOINT TERMINAL ATTACK CONTROLLER Jaylene Huang MD LAB POCT ORDERABLES - DEVICE Final Result Performing Organization Address [facility] Co de Phone Number [facility] ([place]) [address] [facility] [place] [address] * eGFR (11/17/2024 2:31 AM JOINT TERMINAL ATTACK CONTROLLER) eGFR >90 >=60 mL/min/1. 73 m2 Comment: [...] last reviewed 2021. Blood 11/17/2024 2:31 AM JOINT TERMINAL ATTACK CONTROLLER 11/17/2024 2:50 AM JOINT TERMINAL ATTACK CONTROLLER us Jaylene Huang MD LAB BLOOD ORDERABLES Final Re sult [facility] ([place]) [address] [facility] [place] [address] * (ABNORMAL) Basic metabolic panel (11/17/2024 2:31 AM JOINT TERMINAL ATTACK CONTROLLER) Sodium 143 135 - 145 mmol/L Potassium, pl 4.4 3.3 - 4.9 mmol/L [facility] Chloride 99 97 - 110 mmol/L [facility] CO2 33(H) 22 - 32 mmol/L [facility] ([place]) Anion gap 12 2 - 15 mmol/L [facility] BUN 20 6 - 25 mg/dL [facility] Creatinine 0.51(L) 0.60 - 1.10 [...] [facility] ([place]) Blood 11/17/2024 2:31 AM JOINT TERMINAL ATTACK CONTROLLER 11/17/2024 2:50 AM JOINT TERMINAL ATTACK CONTROLLER Jaylene Huang MD LAB BLOOD ORDERABLES Final Re sult [facility] ([place]) [address] [facility] [place] [address] * POCT glucose (11/17/2024 1:38 AM JOINT TERMINAL ATTACK CONTROLLER) Glucose, POC 175 70 - 199 mg/dL Blood 11/17/2024 1:38 AM JOINT TERMINAL ATTACK CONTROLLER 11/17/2024 1:38 AM JOINT TERMINAL ATTACK CONTROLLER Jaylene Huang MD LAB POCT ORDERABLES - DEVICE Final Result Performing Organization Address [facility] de Phone Number [facility] ([place]) [address] [facility] [place] [address] * (ABNORMAL) POCT glucose (11/16/2024 8:33 PM JOINT TERMINAL ATTACK CONTROLLER) Glucose, POC 217(H) 70 - 199 mg/dL Blood 11/16/2024 8:33 PM JOINT TERMINAL ATTACK CONTROLLER 11/16/2024 8:33 PM JOINT TERMINAL ATTACK CONTROLLER Jaylene Huang MD LAB POCT ORDERABLES - DEVICE Final Result Performing Organization Address [facility] Co de Phone Number [facility] ([place]) [address] [facility] [place] [address] * POCT glucose (11/16/2024 4:29 PM JOINT TERMINAL ATTACK CONTROLLER) Glucose, POC 198 70 - 199 mg/dL Blood 11/16/2024 4:29 PM JOINT TERMINAL ATTACK CONTROLLER 11/16/2024 4:29 PM JOINT TERMINAL ATTACK CONTROLLER Jaylene Huang MD LAB POCT ORDERABLES - DEVICE Final Result Performing Organization Address City/[facility]/ZIP Co de Phone Number [facility] [place]) [address] [facility] [place] [address] * COVID-19 Coronavirus RNA Nasopharyngeal (11/16/2024 12:37 PM JOINT TERMINAL ATTACK CONTROLLER) COVID-19 RNA Negative Negative Nasopharyngeal 11/16/2024 12 :37 PM JOINT TERMINAL ATTACK CONTROLLER 11/16/2024 12:46 PM JOINT TERMINAL ATTACK CONTROLLER Narrative [facility] ([place]) - 11/16/2024 1:27 PM JOINT TERMINAL ATTACK CONTROLLER Is the patient experiencing any symptoms consistent with COVID (eg. Fever, cough, shortness of breath)?->No What is the reason for testing?->Screening for post-acute care placement Interpretive data: Testing performed by [facility]. This test is performed using the sfilatino Xpert Xpress CoV-2 plus assay. This is a real-time RT-PCR test intended for the qualitative detection of nucleic acid from the SARS-CoV-2. This assay has been cleared by the [place] Food and Drug administration. The performance characteristics have been verified by [facility]. Results must be considered in the clinical context, and a negative result does not rule out infection. Interpretive data last revised 2024. Interpretive data: Testing performed by [facility]. This test is performed using the sfilatino Xpert Xpress CoV-2 plus assay. This is a real-time RT-PCR test intended for the qualitative detection of nucleic acid from the SARS-CoV-2. This assay has been cleared by the [place] Food and Drug administration. The performance characteristics have been verified by [facility]. Results must be considered in the clinical context, and a negative result does not rule out infection. Interpretive data last revised 2024. us Jaylene Huang MD LAB MICROBIOLOGY - GENERAL OR DERABLES Final Result Performing Organization Address City/[facility]/ZIP Co de Phone Number [facility] ([place]) [address] [facility] [place] [address] * (ABNORMAL) POCT glucose (11/16/2024 11:37 AM JOINT TERMINAL ATTACK CONTROLLER) Glucose, POC 221(H) 70 - 199 mg/dL Blood 11/16/2024 11:3 7 AM JOINT TERMINAL ATTACK CONTROLLER 11/16/2024 11:37 AM JOINT TERMINAL ATTACK CONTROLLER us Jaylene Huang MD LAB POCT ORDERABLES - DEVICE Final Result [facility] ([place]) [address] [place] [address] * POCT glucose (11/16/2024 8:06 AM JOINT TERMINAL ATTACK CONTROLLER) Glucose, POC 181 70 - 199 mg/dL Blood 11/16/2024 8:06 AM JOINT TERMINAL ATTACK CONTROLLER 11/16/2024 8:06 AM JOINT TERMINAL ATTACK CONTROLLER us Jaylene Huang MD LAB POCT ORDERABLES - DEVICE Final Result [facility] ([place]) [address] [facility] [place] [address] * (ABNORMAL) POCT glucose (11/16/2024 1:44 AM JOINT TERMINAL ATTACK CONTROLLER) Glucose, POC 261(H) 70 - 199 mg/dL Blood 11/16/2024 1:44 AM JOINT TERMINAL ATTACK CONTROLLER 11/16/2024 1:44 AM JOINT TERMINAL ATTACK CONTROLLER Jaylene Huang MD LAB POCT ORDERABLES - DEVICE Final Result Performing Organization Address City/[facility]/ZIP Co de Phone Number [facility] ([place]) [address] [place] [address] * POCT glucose (11/15/2024 8:17 PM JOINT TERMINAL ATTACK CONTROLLER) Glucose, POC 94 70 - 199 mg/dL Blood 11/15/2024 8:17 PM JOINT TERMINAL ATTACK CONTROLLER 11/15/2024 8:17 PM JOINT TERMINAL ATTACK CONTROLLER us Jaylene Huang MD LAB POCT ORDERABLES - DEVICE Final Result Performing Organization Address City/[facility] Co de Phone Number [facility] ([place]) [address] [facility] [place] [address] * (ABNORMAL) POCT glucose (11/15/2024 5:06 PM JOINT TERMINAL ATTACK CONTROLLER) Glucose, POC 221(H) 70 - 199 mg/dL Blood 11/15/2024 5:06 PM JOINT TERMINAL ATTACK CONTROLLER 11/15/2024 5:06 PM JOINT TERMINAL ATTACK CONTROLLER us Jaylene Huang MD LAB POCT ORDERABLES - DEVICE Final Result Performing Organization Address [facility] de Phone Number [facility] ([place]) [address] [facility] [place] [address] * (ABNORMAL) POCT glucose (11/15/2024 11:45 AM JOINT TERMINAL ATTACK CONTROLLER) Glucose, POC 324(H) 70 - 199 mg/dL Blood 11/15/2024 11:4 5 AM JOINT TERMINAL ATTACK CONTROLLER 11/15/2024 11:45 AM JOINT TERMINAL ATTACK CONTROLLER Jaylene Huang MD LAB POCT ORDERABLES - DEVICE Final Result Performing Organization Address [facility] Co de Phone Number [facility] ([place]) [address] [facility] [place] [address] * (ABNORMAL) POCT glucose (11/15/2024 8:08 AM JOINT TERMINAL ATTACK CONTROLLER) Glucose, POC 340(H) 70 - 199 mg/dL Blood 11/15/2024 8:08 AM JOINT TERMINAL ATTACK CONTROLLER 11/15/2024 8:08 AM JOINT TERMINAL ATTACK CONTROLLER Jaylene Huang MD LAB POCT ORDERABLES - DEVICE Final Result Performing Organization Address City/[facility] Co de Phone Number [facility] ([place]) [address] [facility] [place] [address] * (ABNORMAL) Potassium (11/15/2024 5:04 AM JOINT TERMINAL ATTACK CONTROLLER) Potassium, pl 3.2(L) 3.3 - 4.9 mmol/L Blood 11/15/2024 5:04 AM JOINT TERMINAL ATTACK CONTROLLER 11/15/2024 5:55 AM JOINT TERMINAL ATTACK CONTROLLER us Jaylene Huang MD LAB BLOOD ORDERABLES Final Re sult [facility] ([place]) [address] [facility] [place] [address] * Magnesium (11/15/2024 5:04 AM JOINT TERMINAL ATTACK CONTROLLER) Magnesium 2.0 1.4 - 2.5 mg/dL Blood 11/15/2024 5:04 AM JOINT TERMINAL ATTACK CONTROLLER 11/15/2024 5:55 AM JOINT TERMINAL ATTACK CONTROLLER us Jaylene Huang MD LAB BLOOD ORDERABLES Final Re sult [facility] ([place]) [address] [facility] [place] [address] * POCT glucose (11/15/2024 4:01 AM JOINT TERMINAL ATTACK CONTROLLER) Glucose, POC 135 70 - 199 mg/dL Blood 11/15/2024 4:01 AM JOINT TERMINAL ATTACK CONTROLLER 11/15/2024 4:01 AM JOINT TERMINAL ATTACK CONTROLLER Jaylene Huang MD LAB POCT ORDERABLES - DEVICE Final Result Performing Organization Address City/[facility]/ZIP Co de Phone Number [facility] ([place]) [address] [facility] [place] [address] * POCT glucose (11/15/2024 1:51 AM JOINT TERMINAL ATTACK CONTROLLER) Glucose, POC 170 70 - 199 mg/dL Blood 11/15/2024 1:51 AM JOINT TERMINAL ATTACK CONTROLLER 11/15/2024 1:51 AM JOINT TERMINAL ATTACK CONTROLLER us Jaylene Huang MD LAB POCT ORDERABLES - DEVICE Final Result Performing Organization Address [facility]/ZIP Co de Phone Number [facility] ([place]) [address] [facility] [place] [address] * POCT glucose (11/14/2024 8:08 PM JOINT TERMINAL ATTACK CONTROLLER) Glucose, POC 122 70 - 199 mg/dL Blood 11/14/2024 8:08 PM JOINT TERMINAL ATTACK CONTROLLER 11/14/2024 8:08 PM JOINT TERMINAL ATTACK CONTROLLER us Jaylene Huang MD LAB POCT ORDERABLES - DEVICE Final Result Performing Organization Address [facility]/ZIP Co de Phone Number [facility] ([place]) [address] [facility] [place] [address] * (ABNORMAL) POCT glucose (11/14/2024 4:53 PM JOINT TERMINAL ATTACK CONTROLLER) Glucose, POC 334(H) 70 - 199 mg/dL Blood 11/14/2024 4:53 PM JOINT TERMINAL ATTACK CONTROLLER 11/14/2024 4:53 PM JOINT TERMINAL ATTACK CONTROLLER us Jaylene Huang MD LAB POCT ORDERABLES - DEVICE Final Result Performing Organization Address City/[facility]/ZIP Co de Phone Number [facility] ([place]) [address] [facility] [place] [address] * (ABNORMAL) POCT glucose (11/14/2024 12:17 PM JOINT TERMINAL ATTACK CONTROLLER) Glucose, POC 256(H) 70 - 199 mg/dL Blood 11/14/2024 12:1 7 PM JOINT TERMINAL ATTACK CONTROLLER 11/14/2024 12:17 PM JOINT TERMINAL ATTACK CONTROLLER us Jaylene Huang MD LAB POCT ORDERABLES - DEVICE Final Result [facility] ([place]) [address] [facility] [place] [address] * POCT glucose (11/14/2024 7:56 AM JOINT TERMINAL ATTACK CONTROLLER) Glucose, POC 191 70 - 199 mg/dL Blood 11/14/2024 7:56 AM JOINT TERMINAL ATTACK CONTROLLER 11/14/2024 7:56 AM JOINT TERMINAL ATTACK CONTROLLER us Jaylene Huang MD LAB POCT ORDERABLES - DEVICE Final Result [facility] ([place]) [address] [facility] [place] [address] * (ABNORMAL) POCT glucose (11/14/2024 2:49 AM JOINT TERMINAL ATTACK CONTROLLER) Glucose, POC 276(H) 70 - 199 mg/dL Blood 11/14/2024 2:49 AM JOINT TERMINAL ATTACK CONTROLLER 11/14/2024 2:49 AM JOINT TERMINAL ATTACK CONTROLLER us Jaylene Huang MD LAB POCT ORDERABLES - DEVICE Final Result Performing Organization Address City/[facility]/ZIP Co de Phone Number [facility] ([place]) [address] [facility] [place] [address] * (ABNORMAL) POCT glucose (11/13/2024 8:19 PM JOINT TERMINAL ATTACK CONTROLLER) Glucose, POC 204(H) 70 - 199 mg/dL Blood 11/13/2024 8:19 PM JOINT TERMINAL ATTACK CONTROLLER 11/13/2024 8:19 PM JOINT TERMINAL ATTACK CONTROLLER us Jaylene Huang MD LAB POCT ORDERABLES - DEVICE Final Result [facility] ([place]) [address] [facility] [place] [address] * POCT glucose (11/13/2024 4:52 PM JOINT TERMINAL ATTACK CONTROLLER) Glucose, POC 192 70 - 199 mg/dL Blood 11/13/2024 4:52 PM JOINT TERMINAL ATTACK CONTROLLER 11/13/2024 4:52 PM JOINT TERMINAL ATTACK CONTROLLER Jaylene Huang MD LAB POCT ORDERABLES - DEVICE Final Result Performing Organization Address [facility] Co de Phone Number [facility] ([place]) [address] [facility] [place] [address] * (ABNORMAL) POCT glucose (11/13/2024 11:52 AM JOINT TERMINAL ATTACK CONTROLLER) Glucose, POC 227(H) 70 - 199 mg/dL Blood 11/13/2024 11:5 2 AM JOINT TERMINAL ATTACK CONTROLLER 11/13/2024 11:52 AM JOINT TERMINAL ATTACK CONTROLLER Jaylene Huang MD LAB POCT ORDERABLES - DEVICE Final Result Performing Organization Address [facility] Co de Phone Number [facility] ([place]) [address] [facility] [place] [address] * (ABNORMAL) POCT glucose (11/13/2024 7:55 AM JOINT TERMINAL ATTACK CONTROLLER) Glucose, POC 282(H) 70 - 199 mg/dL Blood 11/13/2024 7:55 AM JOINT TERMINAL ATTACK CONTROLLER 11/13/2024 7:55 AM JOINT TERMINAL ATTACK CONTROLLER Jaylene Huang MD LAB POCT ORDERABLES - DEVICE Final Result Performing Organization Address City/[facility] Co de Phone Number [facility] ([place]) [address] [facility] [place] [address] * (ABNORMAL) POCT glucose (11/13/2024 1:40 AM JOINT TERMINAL ATTACK CONTROLLER) Glucose, POC 308(H) 70 - 199 mg/dL Blood 11/13/2024 1:40 AM JOINT TERMINAL ATTACK CONTROLLER 11/13/2024 1:40 AM JOINT TERMINAL ATTACK CONTROLLER us Jaylene Huang MD LAB POCT ORDERABLES - DEVICE Final Result [facility] ([place]) [address] [facility] [place] [address] * (ABNORMAL) POCT glucose (11/12/2024 8:24 PM JOINT TERMINAL ATTACK CONTROLLER) Glucose, POC 293(H) 70 - 199 mg/dL Blood 11/12/2024 8:24 PM JOINT TERMINAL ATTACK CONTROLLER 11/12/2024 8:24 PM JOINT TERMINAL ATTACK CONTROLLER us Jaylene Huang MD LAB POCT ORDERABLES - DEVICE Final Result Performing Organization Address City/[facility]/ZIP Co de Phone Number [facility] ([place]) [address] [facility] [place] [address] * (ABNORMAL) POCT glucose (11/12/2024 5:12 PM JOINT TERMINAL ATTACK CONTROLLER) Glucose, POC 331(H) 70 - 199 mg/dL Blood 11/12/2024 5:1 2 PM JOINT TERMINAL ATTACK CONTROLLER 11/12/2024 5:12 PM JOINT TERMINAL ATTACK CONTROLLER us Jaylene Huang MD LAB POCT ORDERABLES - DEVICE Final Result Performing Organization Address City/[facility]/ZIP Co de Phone Number [facility] ([place]) [address] [facility] [place], [place] [address] * (ABNORMAL) POCT glucose (11/12/2024 11:59 AM JOINT TERMINAL ATTACK CONTROLLER) Glucose, POC 299(H) 70 - 199 mg/dL Blood 11/12/2024 11:5 9 AM JOINT TERMINAL ATTACK CONTROLLER 11/12/2024 11:59 AM JOINT TERMINAL ATTACK CONTROLLER us Jaylene Huang MD LAB POCT ORDERABLES - DEVICE Final Result [facility] CUMM[facility] ([place]) 1 [facility] [place] [address] * (ABNORMAL) POCT glucose (11/12/2024 8:30 AM JOINT TERMINAL ATTACK CONTROLLER) Glucose, POC 246(H) 70 - 199 mg/dL Blood 11/12/2024 8:30 AM JOINT TERMINAL ATTACK CONTROLLER 11/12/2024 8:30 AM JOINT TERMINAL ATTACK CONTROLLER us Jaylene Huang MD LAB POCT ORDERABLES - DEVICE Final Result Performing Organization Address [facility] Co de Phone Number [facility] ([place]) 1 [facility] [place] [address] * eGFR (11/12/2024 3:07 AM JOINT TERMINAL ATTACK CONTROLLER) eGFR >90 >=60 mL/min/1. 73 m2 Comment: [...] last reviewed 2021. Blood 11/12/2024 3:07 AM JOINT TERMINAL ATTACK CONTROLLER 11/12/2024 3:48 AM JOINT TERMINAL ATTACK CONTROLLER us Sanjeev Gonzales MD LAB BLOOD ORDERABLES Final Resu lt Performing Organization Address City/[facility]/ZIP Co de Phone Number [facility] ([place]) 1 [facility] [place] [address] * Differential, auto (11/12/2024 3:07 AM JOINT TERMINAL ATTACK CONTROLLER) Neutrophil abs 6.3 1.5 - 6.5 K/cumm [...] revised on 2018. Blood 11/12/2024 3:07 AM JOINT TERMINAL ATTACK CONTROLLER 11/12/2024 3:46 AM JOINT TERMINAL ATTACK CONTROLLER Sanjeev Gonzales MD LAB BLOOD ORDERABLES Final Resu lt [facility] ([place]) 1 [facility] [employer] [address] * (ABNORMAL) CBC with auto differential (11/12/2024 3:07 AM JOINT TERMINAL ATTACK CONTROLLER) WBC 8.7 3.8 - 9.9 K/cumm Hgb [...] [facility] ([place]) Blood 11/12/2024 3:07 AM JOINT TERMINAL ATTACK CONTROLLER 11/12/2024 3:46 AM JOINT TERMINAL ATTACK CONTROLLER Sanjeev Gonzales MD LAB BLOOD ORDERABLES Final Resu lt [facility] ([place]) 1 [facility] [place] [address] * Magnesium (11/12/2024 3:07 AM JOINT TERMINAL ATTACK CONTROLLER) Magnesium 2.3 1.4 - 2.5 mg/dL Blood 11/12/2024 3:07 AM JOINT TERMINAL ATTACK CONTROLLER 11/12/2024 3:48 AM JOINT TERMINAL ATTACK CONTROLLER Sanjeev Gonzales MD LAB BLOOD ORDERABLES Final Resu lt [facility] ([place]) 1 [facility] [place] [address] * (ABNORMAL) Comprehensive metabolic panel (11/12/2024 3:07 AM JOINT TERMINAL ATTACK CONTROLLER) Sodium 137 135 - 145 mmol/L Potassium, pl 3.8 3.3 - 4.9 mmol/L [facility] ([place]) Chloride 97 97 - 110 mmol/L [facility]ER [...] ([place]) AST 19 10 - 45 Units/L [facility] ([place]) Blood 11/12/2024 3:07 AM JOINT TERMINAL ATTACK CONTROLLER 11/12/2024 3:48 AM JOINT TERMINAL ATTACK CONTROLLER us Sanjeev Gonzales MD LAB BLOOD ORDERABLES Final Resu lt Performing Organization Address City/[facility]/ZIP Co de Phone Number ALLY CUMMINGS ([place]) 1 [facility] [place] [address] * (ABNORMAL) POCT glucose (11/12/2024 2:49 AM JOINT TERMINAL ATTACK CONTROLLER) Glucose, POC 371(H) 70 - 199 mg/dL Comment:Glu2: RAMYA/ Notified Blood 11/12/2024 2:49 AM JOINT TERMINAL ATTACK CONTROLLER 11/12/2024 2:49 AM JOINT TERMINAL ATTACK CONTROLLER us Jaylene Huang MD LAB POCT ORDERABLES - DEVICE Final Result Performing Organization Address [facility] Co de Phone Number ALYL CUMMINGS ([place]) 1 [facility] [place] [address] * (ABNORMAL) POCT glucose (11/11/2024 8:20 PM JOINT TERMINAL ATTACK CONTROLLER) Glucose, POC 277(H) 70 - 199 mg/dL Comment:Glu2: RAMYA/ Notified Blood 11/11/2024 8:20 PM JOINT TERMINAL ATTACK CONTROLLER 11/11/2024 8:20 PM JOINT TERMINAL ATTACK CONTROLLER us Jaylene Huang MD LAB POCT ORDERABLES - DEVICE Final Result Performing Organization Address [facility] Co de Phone Number ALLY CUMMINGS ([place]) 1 [facility] [place] [address] * POCT glucose (11/11/2024 5:18 PM JOINT TERMINAL ATTACK CONTROLLER) Glucose, POC 188 70 - 199 mg/dL Blood 11/11/2024 5:18 PM JOINT TERMINAL ATTACK CONTROLLER 11/11/2024 5:18 PM JOINT TERMINAL ATTACK CONTROLLER Jaylene Huang MD LAB POCT ORDERABLES - DEVICE Final Result Performing Organization Address City/[facility]/ZIP Co de Phone Number ALLY CUMMINGS ([place]) 1 [facility] [place] [address] * (ABNORMAL) POCT glucose (11/11/2024 2:40 PM JOINT TERMINAL ATTACK CONTROLLER) Glucose, POC 296(H) 70 - 199 mg/dL Blood 11/11/2024 2:40 PM JOINT TERMINAL ATTACK CONTROLLER 11/11/2024 2:40 PM JOINT TERMINAL ATTACK CONTROLLER Jaylene Huang MD LAB POCT ORDERABLES - DEVICE Final Result Performing Organization Address [facility] de Phone Number [facility] ([place]) 1 [facility] [place] [address] * (ABNORMAL) POCT glucose (11/11/2024 11:44 AM JOINT TERMINAL ATTACK CONTROLLER) Glucose, POC 388(H) 70 - 199 mg/dL Blood 11/11/2024 11:4 4 AM JOINT TERMINAL ATTACK CONTROLLER 11/11/2024 11:44 AM JOINT TERMINAL ATTACK CONTROLLER Jaylene Huang MD LAB POCT ORDERABLES - DEVICE Final Result Performing Organization Address [facility] Co de Phone Number [facility] ([place]) 1 [facility] [place] [address] * (ABNORMAL) POCT glucose (11/11/2024 8:18 AM JOINT TERMINAL ATTACK CONTROLLER) Glucose, POC 245(H) 70 - 199 mg/dL Blood 11/11/2024 8:18 AM JOINT TERMINAL ATTACK CONTROLLER 11/11/2024 8:18 AM JOINT TERMINAL ATTACK CONTROLLER Jaylene Huang MD LAB POCT ORDERABLES - DEVICE Final Result ALLY OrtizFOWLER) 1 [facility] [place] [address] * (ABNORMAL) POCT glucose (11/11/2024 3:46 AM JOINT TERMINAL ATTACK CONTROLLER) Glucose, POC 296(H) 70 - 199 mg/dL Blood 11/11/2024 3:46 AM JOINT TERMINAL ATTACK CONTROLLER 11/11/2024 3:46 AM JOINT TERMINAL ATTACK CONTROLLER Jaylene Huang MD LAB POCT ORDERABLES - DEVICE Final Result Performing Organization Address [facility] Co de Phone Number ALLY OrtizFOWLER) 1 [facility] [place] [address] * eGFR (11/11/2024 2:16 AM JOINT TERMINAL ATT[employer] CONTROLLER) eGFR >90 >=60 mL/min/1. 73 m2 Comment: [...] last reviewed 2021. Blood 11/11/2024 2:16 AM JOINT TERMINAL ATTACK CONTROLLER 11/11/2024 2:42 AM JOINT TERMINAL ATTACK CONTROLLER us Sanjeev Gonzales MD LAB BLOOD ORDERABLES Final Resu lt [facility] CUMMINGS ([place]) 1 [facility] Department of Laboratories [place], [place] [id number] * Differential, auto (11/11/2024 2:16 AM JOINT TERMINAL ATTACK CONTROLLER) Neutrophil abs 5.4 1.5 - 6.5 K/cumm Imm gran abs 0.1 0.0 - 0.1 K/cumm [facility] ([place]) Lymphocyte abs 1.7 0.8 - 3.3 K/cumm [facility] ([place]) Monocyte abs 0.5 0.2 - 0.8 K/cumm [facility] ([place]) Eosinophil abs 0.0 0.0 - 0.5 K/cumm [facility] ([place]) Basophil abs 0.0 0.0 - 0.1 K/cumm [...] revised on 2018. Blood 11/11/2024 2:16 AM JOINT TERMINAL ATTACK CONTROLLER 11/11/2024 2:41 AM JOINT TERMINAL ATTACK CONTROLLER Sanjeev Gonzales MD LAB BLOOD ORDERABLES Final Resu lt [facility] ([place]) 1 [facility] [place] [address] * (ABNORMAL) CBC with auto differential (11/11/2024 2:16 AM JOINT TERMINAL ATTACK CONTROLLER) WBC 7.7 3.8 - 9.9 K/cumm Hgb [...] [facility] ([place]) Blood 11/11/2024 2:16 AM JOINT TERMINAL ATTACK CONTROLLER 11/11/2024 2:41 AM JOINT TERMINAL ATTACK CONTROLLER Sanjeev Gonzales MD LAB BLOOD ORDERABLES Final Resu lt ALLY CUMMINGS ([place]) 1 [facility] [place] [address] * Magnesium (11/11/2024 2:16 AM JOINT TERMINAL ATTACK CONTROLLER) Magnesium 2.4 1.4 - 2.5 mg/dL Blood 11/11/2024 2:16 AM JOINT TERMINAL ATTACK CONTROLLER 11/11/2024 2:42 AM JOINT TERMINAL ATTACK CONTROLLER Sanjeev Gonzales MD LAB BLOOD ORDERABLES Final Resu lt Performing Organization Address [facility] Co de Phone Number ALLY CUMMINGS ([place]) 1 [facility] [place] [address] * (ABNORMAL) Comprehensive metabolic panel (11/11/2024 2:16 AM JOINT TERMINAL ATTACK CONTROLLER) Sodium 139 135 - 145 mmol/L Potassium, pl 4.2 3.3 - 4.9 mmol/L [facility] ([place]) Chloride 100 97 - 110 mmol/L [facility] ([place]) CO2 27 22 - 32 mmol/L [facility] ([place]) Anion gap 13 2 - 15 mmol/L [facility] ([place]) BUN 19 6 - 25 mg/dL [facility] ([place]) Creatinine 0.48(L) 0.60 - 1.10 mg/dL [facility] ([place]) Glucose 293(H) 70 - 199 mg/dL [facility] ([place]) Comment: Interpretive Data Fasting glucose [...] ([place]) AST 16 10 - 45 Units/L [facility] ([place]) Blood 11/11/2024 2:16 AM JOINT TERMINAL ATTACK CONTROLLER 11/11/2024 2:42 AM JOINT TERMINAL ATTACK CONTROLLER us Sanjeev Gonzales MD LAB BLOOD ORDERABLES Final Resu lt Performing Organization Address [facility] Co de Phone Number ALLY CUMMINGS ([place]) 1 [facility] [address] * (ABNORMAL) POCT glucose (11/11/2024 1:41 AM JOINT TERMINAL ATTACK CONTROLLER) Glucose, POC 330(H) 70 - 199 mg/dL Blood 11/11/2024 1:41 AM JOINT TERMINAL ATTACK CONTROLLER 11/11/2024 1:41 AM JOINT TERMINAL ATTACK CONTROLLER us Jaylene Huang MD LAB POCT ORDERABLES - DEVICE Final Result Performing Organization Address [facility] Co de Phone Number ALLY CUMMINGS ([place]) [address] [facility] [place] [address] * (ABNORMAL) POCT glucose (11/10/2024 8:50 PM JOINT TERMINAL ATTACK CONTROLLER) Glucose, POC 286(H) 70 - 199 mg/dL Blood 11/10/2024 8:50 PM JOINT TERMINAL ATTACK CONTROLLER 11/10/2024 8:50 PM JOINT TERMINAL ATTACK CONTROLLER Jaylene Huang MD LAB POCT ORDERABLES - DEVICE Final Result Performing Organization Address [facility]/ZIP Co de Phone Number ALLY CUMMINGS ([place]) 1 [place] [address] * (ABNORMAL) POCT glucose (11/10/2024 4:52 PM JOINT TERMINAL ATTACK CONTROLLER) Glucose, POC 219(H) 70 - 199 mg/dL Blood 11/10/2024 4:52 PM JOINT TERMINAL ATTACK CONTROLLER 11/10/2024 4:52 PM JOINT TERMINAL ATTACK CONTROLLER us Jaylene Huang MD LAB POCT ORDERABLES - DEVICE Final Result Performing Organization Address [facility]/ZIP Co de Phone Number ALLY CUMMINGS ([place]) 1 [place] [address] * (ABNORMAL) POCT glucose (11/10/2024 11:57 AM JOINT TERMINAL ATTACK CONTROLLER) Glucose, POC 303(H) 70 - 199 mg/dL Blood 11/10/2024 11:5 7 AM JOINT TERMINAL ATTACK CONTROLLER 11/10/2024 11:57 AM JOINT TERMINAL ATTACK CONTROLLER us Jaylene Huang MD LAB POCT ORDERABLES - DEVICE Final Result Performing Organization Address [facility] Co de Phone Number ALLY CUMMINGS ([place]) 1 [place] [address] * TRANSTHORACIC ECHO (TTE) LIMITED/FOLLOW UP WO DOPPLER/CF W CONTRAST (11/10/2024 9:50 AM JOINT TERMINAL ATTACK CONTROLLER) Pathologist [facility] LV EF 15 % CONS SCIMAGE Anatomical Region Laterality Modality Ultrasound 11/10/2024 9:09 AM JOINT TERMINAL ATTACK CONTROLLER Narrative 11/10/2024 11:03 AM JOINT TERMINAL ATTACK CONTROLLER [address] [address] Limited Echocardiogram Report Patient Name: AGUSTIN GOMEZCaitlin : 1965 Study Date: 11/10/2024 9:09:45 AM Gender: F Tech: AA Location: [id number] Ref Provider: RACHEAL SAUL Height(Cm): BSA: Weight(Kg): [...] By: Dr Racheal Saul 11/10/2024 11:02:13 AM JOINT TERMINAL ATTACK CONTROLLER Procedure Note Racheal Saul MD - 11/10/[address] [place] [address] Limited Echocardiogram Report Patient Name: AGUSTIN GOMEZ D : 1965 Study Date: 11/10/2024 9:09:45 AM Gender: F Tech: AA Location: [id number] Ref Provider: RACHEAL SAUL Height(Cm): BSA: Weight(Kg): [...] By: Dr Racheal Saul 11/10/2024 11:02:13 AM JOINT TERMINAL ATTACK CONTROLLER us Racheal Saul MD CV ECHO PROCEDURES Final Resu lt * (ABNORMAL) POCT glucose (11/10/2024 8:00 AM JOINT TERMINAL ATTACK CONTROLLER) [facility] Glucose, POC 247(H) 70 - 199 mg/dL Blood 11/10/2024 8:00 AM JOINT TERMINAL ATTACK CONTROLLER 11/10/2024 8:00 AM JOINT TERMINAL ATTACK CONTROLLER Jaylene Huang MD LAB POCT ORDERABLES - DEVICE Final Result [facility] [place] 1 [facility] [place] [address] * eGFR (11/10/2024 2:27 AM JOINT TERMINAL ATTACK CONTROLLER) [facility] eGFR >90 >=60 mL/min/1. 73 m2 Comment: [...] last reviewed 2021. Blood 11/10/2024 2:27 AM JOINT TERMINAL ATTACK CONTROLLER 11/10/2024 2:58 AM JOINT TERMINAL ATTACK CONTROLLER us Sanjeev Gonzales MD LAB BLOOD ORDERABLES Final Resu lt [facility] ([place]) 1 [facility] [place] [address] * Differential, auto (11/10/2024 2:27 AM JOINT TERMINAL ATTACK CONTROLLER) Neutrophil abs 4.5 1.5 - 6.5 K/cumm [...] revised on 2018. Blood 11/10/2024 2:27 AM JOINT TERMINAL ATTACK CONTROLLER 11/10/2024 2:59 AM JOINT TERMINAL ATTACK CONTROLLER us Sanjeev Gonzales MD LAB BLOOD ORDERABLES Final Resu lt ALLY CUMMINGS ([place]) 1 [facility] [place] [address] * (ABNORMAL) Pro B-type natriuretic peptide (11/10/2024 2:27 AM JOINT TERMINAL ATTACK CONTROLLER) NT-proBNP 3,012(H) <=300 pg/mL Comment: Interpretive Comments: [...] Revised Date: 2018. Blood 11/10/2024 2:27 AM JOINT TERMINAL ATTACK CONTROLLER 11/10/2024 2:58 AM JOINT TERMINAL ATTACK CONTROLLER us Jaylene Huang MD LAB BLOOD ORDERABLES Final Re sult ALL[facility] CUMMINGS ([place]) 1 [facility] [place] [address] * (ABNORMAL) CBC with auto differential (11/10/2024 2:27 AM JOINT TERMINAL ATTACK CONTROLLER) WBC 6.7 3.8 - 9.9 K/cumm Hgb 7.9(L) 11.9 - 15.5 g/dL [facility] ([place]) Hct 31.4(L) 35.6 - 45.5 % [facility] ([place]) Plt 309 150 - 400 K/cumm [facility] ([place]) MPV 9.7 9.1 - 12.3 fL [facility] ([place]) RBC 3.89(L) 3.90 - 5.20 M/cumm [facility] ([place]) MCV 80.7(L) 81.3 - 96.4 fL [facility] ([place]) MCH 20.3(L) 27.1 - 33.3 pg [facility] ([place]) MCHC 25.2(L) 32.3 - 35.7 g/dL [facility] ([place]) RDW CV 28.6(H) 11.1 - 14.9 % [facility] ([place]) RDW SD 79.7(H) 35.7 - 48.1 fL [facility] ([place]) NRBC abs 0.04(H) 0.00 - 0.01 K/cumm [facility] ([place]) Blood 11/10/2024 2:27 AM JOINT TERMINAL ATTACK CONTROLLER 11/10/2024 2:59 AM JOINT TERMINAL ATTACK CONTROLLER Sanjeev Gonzales MD LAB BLOOD ORDERABLES Final Resu lt Performing Organization Address [facility]/ZIP Co de Phone Number [facility] ([place]) 1 [facility] [address] * Magnesium (11/10/2024 2:27 AM JOINT TERMINAL ATTACK CONTROLLER) Pathologist [facility] Magnesium 2.3 1.4 - 2.5 mg/dL Blood 11/10/2024 2:27 AM JOINT TERMINAL ATTACK CONTROLLER 11/10/2024 2:58 AM JOINT TERMINAL ATTACK CONTROLLER Sanjeev Gonzales MD LAB BLOOD ORDERABLES Final Resu lt Performing Organization Address City/[facility] Co de Phone Number [facility] ([place]) [address] [facility] [place] [address] * (ABNORMAL) Comprehensive metabolic panel (11/10/2024 2:27 AM JOINT TERMINAL ATTACK CONTROLLER) Sodium 140 135 - 145 mmol/L Potassium, pl 4.1 3.3 - 4.9 mmol/L [facility] ([place] Chloride 100 97 - 110 mmol/L [facility] ([place]) CO2 27 22 - 32 mmol/L [facility] ([place]) Anion gap 14 2 - 15 mmol/L [facility] ([place]) BUN 18 6 - 25 mg/dL [facility] ([place]) Creatinine 0.49(L) 0.60 - 1.10 mg/dL [facility] ([place]) Glucose 277(H) 70 - 199 mg/dL [facility] ([place]) Comment: Interpretive Data Fasting glucose >/= 126 [...] [facility] ([place]) Blood 11/10/2024 2:27 AM JOINT TERMINAL ATTACK CONTROLLER 11/10/2024 2:58 AM JOINT TERMINAL ATTACK CONTROLLER Sanjeev Gonzales MD LAB BLOOD ORDERABLES Final Resu lt [facility] ([place]) 1 [facility] Department of Laboratories [place], [place] [id number] * (ABNORMAL) POCT glucose (11/10/2024 1:48 AM JOINT TERMINAL ATTACK CONTROLLER) Glucose, POC 295(H) 70 - 199 mg/dL Blood 11/10/2024 1:48 AM JOINT TERMINAL ATTACK CONTROLLER 11/10/2024 1:48 AM JOINT TERMINAL ATTACK CONTROLLER us Jaylene Huang MD LAB POCT ORDERABLES - DEVICE Final Result ALLY CUMMINGS ([place]) 1 [facility] [place] [address] * (ABNORMAL) POCT glucose (11/09/2024 8:39 PM JOINT TERMINAL ATTACK CONTROLLER) Glucose, POC 233(H) 70 - 199 mg/dL Blood 11/09/2024 8:39 PM JOINT TERMINAL ATTACK CONTROLLER 11/09/2024 8:39 PM JOINT TERMINAL ATTACK CONTROLLER us Jaylene Huang MD LAB POCT ORDERABLES - DEVICE Final Result Performing Organization Address City/[facility]/ZIP Co de Phone Number ALLY CUMMINGS ([place]) 1 [facility] [place] [address] * (ABNORMAL) POCT glucose (11/09/2024 5:23 PM JOINT TERMINAL ATTACK CONTROLLER) Glucose, POC 343(H) 70 - 199 mg/dL Blood 11/09/2024 5:23 PM JOINT TERMINAL ATTACK CONTROLLER 11/09/2024 5:23 PM JOINT TERMINAL ATTACK CONTROLLER us Jaylene Huang MD LAB POCT ORDERABLES - DEVICE Final Result Performing Organization Address City/[facility]/ZIP Co de Phone Number ALLY CUMMINGS ([place]) 1 [facility] [place] [address] * (ABNORMAL) POCT glucose (11/09/2024 11:06 AM JOINT TERMINAL ATTACK CONTROLLER) Glucose, POC 292(H) 70 - 199 mg/dL Blood 11/09/2024 11:0 6 AM JOINT TERMINAL ATTACK CONTROLLER 11/09/2024 11:06 AM JOINT TERMINAL ATTACK CONTROLLER us Jaylene Huang MD LAB POCT ORDERABLES - DEVICE Final Result ALL[facility] CUMMINGS ([place]) 1 [facility] [place] [address] * XR Chest 1 View (11/09/2024 10:32 AM JOINT TERMINAL ATTACK CONTROLLER) Anatomical Region Laterality Modality Body, Chest N/A Computed Radiogr aphy 11/09/2024 10:5 9 AM JOINT TERMINAL ATTACK CONTROLLER Narrative 11/09/2024 11:02 AM JOINT TERMINAL ATTACK CONTROLLER EXAM DESCRIPTION: XR CHEST 1 VIEW REASON [...] Electronically signed by Javan Mcgill M.D. KN: KN Report ID: [id number] Reading Location: [id number] Procedure Note Javan Mcgill MD - 11/09/2024 [...] Javan Mcgill M.D. KN: ANNA Report ID: [id number] Reading Location: [id number] Jaylene Huang MD IMG XR PROCEDURES Final Resul t * POCT glucose (11/09/2024 7:16 AM JOINT TERMINAL ATTACK CONTROLLER) Glucose, POC 174 70 - 199 mg/dL Blood 11/09/2024 7:16 AM JOINT TERMINAL ATTACK CONTROLLER 11/09/2024 7:16 AM JOINT TERMINAL ATTACK CONTROLLER Jaylene Huang MD LAB POCT ORDERABLES - DEVICE Final Result [facility] 1 [facility] Department of Laboratories [place] [id number] * eGFR (11/09/2024 2:08 AM JOINT TERMINAL ATTACK CONTROLLER) eGFR >90 >=60 mL/min/1. 73 m2 Comment: [...] last reviewed 2021. Blood 11/09/2024 2:08 AM JOINT TERMINAL ATTACK CONTROLLER 11/09/2024 3:53 AM JOINT TERMINAL ATTACK CONTROLLER us Sanjeev Gonzales MD LAB BLOOD ORDERABLES Final Resu lt ALLY CUMMINGS ([place]) 1 [facility] [place] [address] * Differential, auto (11/09/2024 2:08 AM JOINT TERMINAL ATTACK CONTROLLER) Neutrophil abs 4.0 1.5 - 6.5 K/cumm Imm gran abs 0.1 0.0 - 0.1 K/cumm [facility] ([place]) Lymphocyte abs 1.8 0.8 - 3.3 K/cumm [facility] ([place]) Monocyte abs 0.6 0.2 - 0.8 K/cumm [facility] ([place]) Eosinophil abs 0.1 0.0 - 0.5 K/cumm [facility] ([place]) Basophil abs 0.0 0.0 - 0.1 K/cumm [facility] ([place]) Neutrophil pct 60.7 % [facility] ([place]) Comment: Interpretive Data Percent cell count reference ranges are not reported, since discordance with absolute values may lead to misinterpretation of CBC data. Current Interpretive Data was last revised on 2018. Imm gran pct 0.8 % [facility] ([place]) Comment: Interpretive Data Percent cell count reference [...] 2018. Monocyte pct 9.2 % [facility] ([place]) Comment: Interpretive Data Percent cell count reference [...] revised on 2018. Blood 11/09/2024 2:08 AM JOINT TERMINAL ATTACK CONTROLLER 11/09/2024 3:56 AM JOINT TERMINAL ATTACK CONTROLLER us Sanjeev Gonzales MD LAB BLOOD ORDERABLES Final Resu lt Performing Organization Address City/[facility]/ZIP Co de Phone Number ALLY CUMMINGS ([place]) 1 [facility] [place] [address] * (ABNORMAL) POCT glucose (11/09/2024 2:08 AM JOINT TERMINAL ATTACK CONTROLLER) Glucose, POC 207(H) 70 - 199 mg/dL Blood 11/09/2024 2:08 AM JOINT TERMINAL ATTACK CONTROLLER 11/09/2024 2:08 AM JOINT TERMINAL ATTACK CONTROLLER Kerline Lambert MD LAB POCT ORDERABLES - DEVICE Fi nal Result Performing Organization Address [facility] Co de Phone Number ALLY CUMMINGS ([place]) 1 [facility] [place] [address] * (ABNORMAL) CBC with auto differential (11/09/2024 2:08 AM JOINT TERMINAL ATTACK CONTROLLER) WBC 6.5 3.8 - 9.9 K/cumm Hgb [...] [facility] ([place]) Blood 11/09/2024 2:08 AM JOINT TERMINAL ATTACK CONTROLLER 11/09/2024 3:56 AM JOINT TERMINAL ATTACK CONTROLLER Sanjeev Gonzales MD LAB BLOOD ORDERABLES Final Resu lt [facility] ([place]) [address] [facility] [place] [address] * Magnesium (11/09/2024 2:08 AM JOINT TERMINAL ATTACK CONTROLLER) [facility] Magnesium 2.3 1.4 - 2.5 mg/dL Blood 11/09/2024 2:08 AM JOINT TERMINAL ATTACK CONTROLLER 11/09/2024 3:53 AM JOINT TERMINAL ATTACK CONTROLLER us Sanjeev Gonzales MD LAB BLOOD ORDERABLES Final Resu lt [facility] ([place] [address] [facility] [place] [address] * (ABNORMAL) Comprehensive metabolic panel (11/09/2024 2:08 AM JOINT TERMINAL ATTACK CONTROLLER) Sodium 139 135 - 145 mmol/L Potassium, pl 4.2 3.3 - 4.9 mmol/L [facility] ([place]) Chloride 100 97 - 110 mmol/L [facility] ([place]) CO2 28 22 - 32 mmol/L [facility] ([place]) Anion gap 11 2 - 15 mmol/L [facility] BUN 17 6 - 25 mg/dL [facility] ([place] Creatinine 0.50(L) 0.60 [...] [facility] ([place]) Blood 11/09/2024 2:08 AM JOINT TERMINAL ATTACK CONTROLLER 11/09/2024 3:53 AM JOINT TERMINAL ATTACK CONTROLLER us Sanjeev Gonzales MD LAB BLOOD ORDERABLES Final Resu lt [facility] ([place]) 1 [facility] [place] [address] * (ABNORMAL) POCT glucose (11/08/2024 8:36 PM JOINT TERMINAL ATTACK CONTROLLER) [facility] Glucose, POC 264(H) 70 - 199 mg/dL Blood 11/08/2024 8:36 PM JOINT TERMINAL ATTACK CONTROLLER 11/08/2024 8:36 PM JOINT TERMINAL ATTACK CONTROLLER us Kerline Lambert MD LAB POCT ORDERABLES - DEVICE Fi nal Result Performing Organization Address [facility] Co de Phone Number [facility] ([place]) [address] [facility] [place] [address] * (ABNORMAL) POCT glucose (11/08/2024 4:57 PM JOINT TERMINAL ATTACK CONTROLLER) Glucose, POC 291(H) 70 - 199 mg/dL Blood 11/08/2024 4:57 PM JOINT TERMINAL ATTACK CONTROLLER 11/08/2024 4:57 PM JOINT TERMINAL ATTACK CONTROLLER us Kerline Lambert MD LAB POCT ORDERABLES - DEVICE Fi nal Result Performing Organization Address [facility] Co de Phone Number [facility] CUMMINGS ([place]) [address] [facility] [place] [address] * (ABNORMAL) Troponin T high-sensitivity (11/08/2024 2:31 PM JOINT TERMINAL ATTACK CONTROLLER) Trop T hs 30(H) <=14 ng/L Comment: Interpretive Data For further hscTnT resources including the diagnostic algorithm and an aid in interpretation, copy and paste this link: https://nrl.testcatalog.org/show/hsTrop Current Interpretive Data last revised 2020. Blood 11/08/2024 2:31 PM JOINT TERMINAL ATTACK CONTROLLER 11/08/2024 2:41 PM JOINT TERMINAL ATTACK CONTROLLER us Kerline Lambert MD LAB BLOOD ORDERABLES Final Resu lt Performing Organization Address [facility] Co de Phone Number ALLY CUMMINGS ([place]) 1 [facility] [place] [address] * POCT glucose (11/08/2024 12:04 PM JOINT TERMINAL ATTACK CONTROLLER) Glucose, POC 173 70 - 199 mg/dL Blood 11/08/2024 12:0 4 PM JOINT TERMINAL ATTACK CONTROLLER 11/08/2024 12:04 PM JOINT TERMINAL ATTACK CONTROLLER us Kerline Lambert MD LAB POCT ORDERABLES - DEVICE Fi nal Result Performing Organization Address [facility] Co de Phone Number ALLY CUMMINGS ([place]) 1 [facility] [place] [address] * POCT glucose (11/08/2024 8:00 AM JOINT TERMINAL ATTACK CONTROLLER) Glucose, POC 119 70 - 199 mg/dL Blood 11/08/2024 8:00 AM JOINT TERMINAL ATTACK CONTROLLER 11/08/2024 8:00 AM JOINT TERMINAL ATTACK CONTROLLER Kerline Lambert MD LAB POCT ORDERABLES - DEVICE Fi nal Result Performing Organization Address [facility] Co de Phone Number ALLY CUMMINGS ([place]) 1 [place] [address] * (ABNORMAL) Troponin T high-sensitivity (11/08/2024 7:44 AM JOINT TERMINAL ATTACK CONTROLLER) Trop T hs 30(H) <=14 ng/L Comment: Interpretive Data For further hscTnT resources including the diagnostic algorithm and an aid in interpretation, copy and paste this link: https://nrl.Transactis.org/show/hsTrop Current Interpretive Data last revised 2020. Blood 11/08/2024 7:44 AM JOINT TERMINAL ATTACK CONTROLLER 11/08/2024 8:42 AM JOINT TERMINAL ATTACK CONTROLLER us Sanjeev Gonzales MD LAB BLOOD ORDERABLES Final Resu lt Performing Organization Address [facility] Co de Phone Number ALLY CUMMINGS ([place]) 1 [facility] [place] [address] * (ABNORMAL) Troponin T high-sensitivity (11/08/2024 2:30 AM JOINT TERMINAL ATTACK CONTROLLER) Trop T hs 36(H) <=14 ng/L Comment: Interpretive Data For further hscTnT resources including the diagnostic algorithm and an aid in interpretation, copy and paste this link: https://nrl.testcatTruHearing.org/show/hsTrop Current Interpretive Data last revised 2020. Blood 11/08/2024 2:30 AM JOINT TERMINAL ATTACK CONTROLLER 11/08/2024 2:34 AM JOINT TERMINAL ATTACK CONTROLLER Sanjeev Gonzales MD LAB BLOOD ORDERABLES Final Resu lt Performing Organization Address City/[facility]/ZIP Co de Phone Number ALLY OrtizFOWLER) 1 [facility] [place] [address] * eGFR (11/08/2024 2:30 AM JOINT TERMINAL ATTACK CONTROLLER) eGFR >90 >=60 mL/min/1. 73 m2 Comment: [...] last reviewed 2021. Blood 11/08/2024 2:30 AM JOINT TERMINAL ATTACK CONTROLLER 11/08/2024 2:34 AM JOINT TERMINAL ATTACK CONTROLLER Sanjeev Gonzales MD LAB BLOOD ORDERABLES Final Resu lt ALLY CUMMINGS ([place]) 1 [facility] [place] [address] * Differential, auto (11/08/2024 2:30 AM JOINT TERMINAL ATTACK CONTROLLER) Neutrophil abs 6.1 1.5 - 6.5 K/cumm Imm gran abs 0.1 0.0 - 0.1 K/cumm ALLY REPLACED BY [facility] ([place]) Lymphocyte abs 1.7 0.8 - 3.3 [...] revised on 2018. Blood 11/08/2024 2:30 AM JOINT TERMINAL ATTACK CONTROLLER 11/08/2024 2:34 AM JOINT TERMINAL ATTACK CONTROLLER us Sanjeev Gonzales MD LAB BLOOD ORDERABLES Final Resu lt ALLY CUMMINGS ([place]) 1 [facility] [place] [address] * (ABNORMAL) Pro B-type natriuretic peptide (11/08/2024 2:30 AM JOINT TERMINAL ATTACK CONTROLLER) NT-proBNP 938(H) <=300 pg/mL Comment: Interpretive Comments: [...] Revised Date: 2018. Blood 11/08/2024 2:30 AM JOINT TERMINAL ATTACK CONTROLLER 11/08/2024 2:34 AM JOINT TERMINAL ATTACK CONTROLLER us Sanjeev Gonzales MD LAB BLOOD ORDERABLES Final Resu lt ALLY CUMMIGNS ELROY) 1 [facility] [place] [address] * (ABNORMAL) CBC with auto differential (11/08/2024 2:30 AM JOINT TERMINAL ATTACK CONTROLLER) WBC 8.6 3.8 - 9.9 K/cumm Hgb [...] [facility] ([place]) Blood 11/08/2024 2:30 AM JOINT TERMINAL ATTACK CONTROLLER 11/08/2024 2:34 AM JOINT TERMINAL ATTACK CONTROLLER us Sanjeev Gonzales MD LAB BLOOD ORDERABLES Final Resu lt [facility] ([place]) 1 [facility] [place] [address] * aPTT (11/08/2024 2:30 AM JOINT TERMINAL ATTACK CONTROLLER) aPTT 32 28 - 38 sec [facility] ([place]) Comment: Interpretive Data Heparin therapeutic range: 66.0 - 100.0 seconds. Range based on correlation with therapeutic heparin activity range of 0.3 - 0.7 Units/mL. Current interpretive data was last revised on 2023. Blood 11/08/2024 2:30 AM JOINT TERMINAL ATTACK CONTROLLER 11/08/2024 2:34 AM JOINT TERMINAL ATTACK CONTROLLER Narrative ALLY CUMMINGS ([place]) - 11/08/2024 4:15 AM JOINT TERMINAL ATTACK CONTROLLER Baseline prior to enoxaparin initiation. Sanjeev Gonzales MD LAB BLOOD ORDERABLES Final Resu lt Performing Organization Address City/[facility]/ZIP Co de Phone Number ALLY CUMMINGS ([place]) 1 [facility] [place] [address] * (ABNORMAL) Protime-INR (11/08/2024 2:30 AM JOINT TERMINAL ATTACK CONTROLLER) PT 13.6(H) 9.7 - 13.0 sec ALLY CUMMINGS ([place]) INR 1.25(H) 0.90 - 1.20 ALLY CUMMINGS ([place]) Comment: Interpretive data Oral anticoagulant therapeutic ranges: Venous thromboembolism prophylaxis or treatment: 2.0-3.0 CARDIOLOGY Standard range: 2.0-3.0 High-intensity range: 2.5-3.5 Refer to indication-specific guidelines for appropriate target ranges for prosthetic heart valve replacement. Current interpretive data was last revised on 2019. Blood 11/08/2024 2:30 AM JOINT TERMINAL ATTACK CONTROLLER 11/08/2024 2:34 AM JOINT TERMINAL ATTACK CONTROLLER Narrative ALLY CUMMINGS ([place]) - 11/08/2024 4:15 AM JOINT TERMINAL ATTACK CONTROLLER Baseline prior to enoxaparin initiation. us Sanjeev Gonzales MD LAB BLOOD ORDERABLES Final Resu lt ALLY CUMMINGS ([place]) 1 [facility] [place] [address] * (ABNORMAL) CBC without differential (11/08/2024 2:30 AM JOINT TERMINAL ATTACK CONTROLLER) WBC 8.6 3.8 - 9.9 K/cumm Hgb 8.9(L) 11.9 - 15.5 g/dL ALLY CUMMINGS ([place]) Hct 35.5(L) 35.6 - 45.5 % [...] [facility] ([place]) Blood 11/08/2024 2:30 AM JOINT TERMINAL ATTACK CONTROLLER 11/08/2024 2:34 AM JOINT TERMINAL ATTACK CONTROLLER Narrative [facility] ([place]) - 11/08/2024 2:45 AM JOINT TERMINAL ATTACK CONTROLLER Baseline prior to enoxaparin initiation. us Sanjeev Gonzales MD LAB BLOOD ORDERABLES Final Resu lt ALLY CUMMINGS ([place]) 1 [facility] [place] [address] * Magnesium (11/08/2024 2:30 AM JOINT TERMINAL ATTACK CONTROLLER) Magnesium 2.4 1.4 - 2.5 mg/dL Blood 11/08/2024 2:30 AM JOINT TERMINAL ATTACK CONTROLLER 11/08/2024 2:34 AM JOINT TERMINAL ATTACK CONTROLLER Sanjeev Gonzales MD LAB BLOOD ORDERABLES Final Resu lt ALLY CUMMINGS ([place]) 1 [facility] [place] [address] * (ABNORMAL) Lipid panel (11/08/2024 2:30 AM JOINT TERMINAL ATTACK CONTROLLER) [facility] Signature Cholesterol 101 30 - 199 mg/dL Comment: [...] Pediatrics 2011;128:S213 2. NCEP Expert Panel. Circulation 2003;110:227 Current Interpretive Data was last revised on [...] NAEEM CUMMINGS ([place]) Blood 11/08/2024 2:30 AM JOINT TERMINAL ATTACK CONTROLLER 11/08/2024 2:34 AM JOINT TERMINAL ATTACK CONTROLLER us Sanjeev Gonzales MD LAB BLOOD ORDERABLES Final Resu lt ALLY UCMMINGS ([place]) 1 [facility] [place] [address] * (ABNORMAL) Comprehensive metabolic panel (11/08/2024 2:30 AM JOINT TERMINAL ATTACK CONTROLLER) Sodium 143 135 - 145 mmol/L Potassium, [...] [facility] ([place]) Blood 11/08/2024 2:30 AM JOINT TERMINAL ATTACK CONTROLLER 11/08/2024 2:34 AM JOINT TERMINAL ATTACK CONTROLLER us Sanjeev Gonzales MD LAB BLOOD ORDERABLES Final Resu lt [facility] ([place]) 1 [facility] [place] [address] * (ABNORMAL) Protime-INR (11/08/2024 2:24 AM JOINT TERMINAL ATTACK CONTROLLER) PT 13.8(H) 9.7 - 13.0 sec ALLY CUMMINGS ([place]) INR 1.27(H) 0.90 - 1.20 ALLY REPLACED BY [facility] ([place]) Comment: Interpretive data Oral anticoagulant therapeutic ranges: Venous thromboembolism prophylaxis or treatment: 2.0-3.0 CARDIOLOGY Standard range: 2.0-3.0 High-intensity range: 2.5-3.5 Refer to indication-specific guidelines for appropriate target ranges for prosthetic heart valve replacement. Current interpretive data was last revised on 2019. Blood 11/08/2024 2:24 AM JOINT TERMINAL ATTACK CONTROLLER 11/08/2024 2:34 AM JOINT TERMINAL ATTACK CONTROLLER Result [facility] Sanjeev Gonzales MD LAB BLOOD ORDERABLES Final Resu lt ALLY CUMMINGS ([place]) 1 [facility] [address] * POCT glucose (11/08/2024 1:48 AM JOINT TERMINAL ATTACK CONTROLLER) Glucose, POC 89 70 - 199 mg/dL Blood 11/08/2024 1:48 AM JOINT TERMINAL ATTACK CONTROLLER 11/08/2024 1:48 AM JOINT TERMINAL ATTACK CONTROLLER Result [facility] Sanjeev Gonzales MD LAB POCT ORDERABLES - DEVICE Fi nal Result ALLY REPLACED BY [facility] ([place]) 1 [facility] [place] [address] * SCAN - RADIOLOGY/IMAGING (11/07/2024) Anatomical Region Laterality Modality Other us Provider Scanning Edited Result - Final * SCAN - LABS (11/07/2024) us Provider Scanning Edited Result - Final * XR Outside Reference (11/07/2024 12:00 AM JOINT TERMINAL ATTACK CONTROLLER) Narrative [facility] - 12/01/2024 2:38 PM JOINT TERMINAL ATTACK CONTROLLER This order has been auto-finalized and does not contain a result. us Not In File Miscellaneous IMG XR PROCEDURES Jaz l Result Performing Organization Address City/[facility]/ZIP Co de Phone Number [facility] * SCAN - LABS (11/04/2024) us Provider Scanning Final Result * (ABNORMAL) Protime-INR (11/04/2024) INR 1.50(A) 0.90 - 1.10 EXTERNAL LAB Blood us Historical Provider MD LAB BLOOD ORDERABLES Jaz simmons Result Performing Organization Address [facility] Co de Phone Number EXTERNAL LAB * MRI Abdomen Liver W WO Contrast (10/27/2024 12:54 PM JOINT TERMINAL ATTACK CONTROLLER) Anatomical Region Laterality Modality Body N/A Magnetic Resonan ce 10/27/2024 2:00 PM JOINT TERMINAL ATTACK CONTROLLER Impressions 10/27/2024 3:34 PM JOINT TERMINAL ATTACK CONTROLLER Unchanged hepatic metastatic disease. No evidence of disease progression. Dictated by: Dillon Yañez MD The radiology attending physician has personally reviewed this study, and had reviewed and/or edited this written report and agrees with it. Electronically signed by: Horace Cornell M.D. Narrative 10/27/2024 3:34 PM JOINT TERMINAL ATTACK CONTROLLER EXAMINATION: MAGNETIC RESONANCE IMAGING OF THE ABDOMEN [...] PA Lateral 2 Views (10/27/2024 9:14 AM JOINT TERMINAL ATTACK CONTROLLER) Anatomical Region Laterality Modality Body, Chest N/A Computed Radiogr aphy 10/27/2024 9:27 AM JOINT TERMINAL ATTACK CONTROLLER Impressions 10/27/2024 9:50 AM JOINT TERMINAL ATTACK CONTROLLER FINDINGS/IMPRESSION: Changes of cervical spinal fusion. Partially [...] Wyatt Ochoa M.D. Narrative 10/27/2024 9:50 AM JOINT TERMINAL ATTACK CONTROLLER EXAMINATION: XR CHEST PA LATERAL 2 VIEWS [...] ORDERABLES Jaz simmons Result EXTERNAL LAB * US Carotids Duplex Bilateral (10/25/2024 2:57 PM JOINT TERMINAL ATTACK CONTROLLER) Anatomical Region Laterality Modality Vascular Bilateral Ultrasound 10/25/2024 3:07 PM JOINT TERMINAL ATTACK CONTROLLER Impressions 10/25/2024 3:07 PM JOINT TERMINAL ATTACK CONTROLLER 1. Bilateral internal carotid artery stenosis estimated at less than 50%. 2. There is antegrade flow in both vertebral arteries. Electronically signed by: Paul Traylor II, D.O. 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 10/20/2024 [employer] quarterly remote device check NOTE The following shows snippets from the complete quarterly report. The complete report in its entirety is attached to this Result Text in Lien Searcher Slow nsT Detection Oct 13, 2024, Slow nsT Detection Oct 13, 2024 @ 12:39AM Episode List- Full Episode IEGMs are in MEDIA Single Chamber ICD implanted July 2023 Battery Status: MARQUEZ RVp: 0% Next Appointment: 04/14/2025 Pt seen recently in office. Device was not checked at that visit however; Currently being worked up for Barostim Reviewed By Marissa Hernandez RN BSN ATTESTATION I have reviewed the device interrogation report associated with this encounter in detail. I agree with the documentation recorded/scanned into the electronic medical record. Recommendations: Continue current device follow-up. Rajan Begum MD Result [facility] Rajan Begum MD CV CARDIAC SERVICES DE OCEDURES Final Result * (ABNORMAL) Protime-INR (10/14/2024) INR 1.40(A) 0.90 - 1.10 EXTERNAL LAB Blood Result [facility] Provider MD LAB BLOOD ORDERABLES Jaz l Result EXTERNAL LAB * (ABNORMAL) Protime-INR (10/07/2024) INR 1.70(A) 0.90 - 1.10 EXTERNAL LAB Blood Result [facility] Provider MD LAB BLOOD ORDERABLES Jaz l Result EXTERNAL LAB * (ABNORMAL) Protime-INR (10/01/2024) INR 1.90(A) 0.90 - 1.10 ALLY Spann ([place]) Blood 10/01/2024 Result [facility] Provider MD LAB BLOOD ORDERABLES Jaz l Result Performing Organization Address City/[facility]/ZIP Co de Phone Number ALLY REPLACED BY [facility] ([place]) 1 [facility] [place] [address] * (ABNORMAL) Protime-INR (10/01/2024) INR 1.90(A) 0.90 - 1.10 EXTERNAL LAB Blood Result [facility] Historical Provider MD LAB BLOOD ORDERABLES Jaz l Result EXTERNAL LAB * (ABNORMAL) Protime-INR (09/23/2024) INR 1.30(A) 0.90 - 1.10 EXTERNAL LAB Blood Result [facility] Historical Provider LAB BLOOD ORDERABLES Jaz l Result EXTERNAL LAB * SCAN - LABS (09/13/2024) Provider Scanning Final Result * Hepatitis panel, acute Blood (06/07/2024 4:33 AM CDT) Hep A IgM Nonreactive Nonreactive Comment: Interpretive Data: If Hep A IgM Ab is reported as Equivocal, a new sample should be drawn in two weeks for testing. Current interpretive data was last revised on 19. Hep B core IgM Nonreactive Nonreactive [facility] Comment: Interpretive Data If HepB Core IgM Ab is reported as Equivocal, a new sample should be drawn in two weeks for testing. Current interpretive data was last revised on 19. Hep C Ab Nonreactive Nonreactive [facility] Comment: Interpretive Data Nonreactive: Antibodies [...] last revised on 2019. HepBsAg Nonreactive Nonreactive [facility] Blood 06/07/2024 4:33 AM CDT 06/07/2024 5:[address] [facility] Zaria Alvares MD LAB MICROBIOLOGY - GENERAL ORDERABLES Final Result [facility] [address] Department [place] [address] * Diabetic Eye Exam (01/26/2024 2:27 PM CDT) us Historical Provider HEALTH MAINTENANCE Final Result * [...] Albumin Creatinine Ratio, Urine (10/11/2022 10:25 AM JOINT TERMINAL ATTACK CONTROLLER) Albumin Ur 67.6 mg/L [facility] ([place]) Comment: Interpretive Data No reference range established. Current interpretive data was last revised 2019. Testing performed by: [facility], [address] [place] [address], [place]., [address] Creatinine Ur 101.1 mg/dL [facility] ([place]) Comment: Interpretive Data No reference range established. Current interpretive data was last revised 2019. Testing performed by: [facility], [address] [place] [address], [place]., [address] Albumin Creatinine Ratio, Ur 67(H) 1 - 29 mg/g [facility] ([place]) Comment:Testing performed by : [facility], [address] [place] [address], [place]., [address] Urine 10/11/2022 10:2 5 AM JOINT TERMINAL ATTACK CONTROLLER 10/11/2022 1:42 PM JOINT TERMINAL ATTACK CONTROLLER us Juni Hays MD LAB URINE ORDERABLES Final R esult ALLY EMILIANO ([place]) 1 [facility] Department [place] [address] * COLONOSCOPY (02/05/2022 1:10 PM CDT) Anatomical Region Laterality Modality Other Narrative Procedure Note Dontae Stevens MD - 02/05/2022 1:10 PM CDT [facility] Patient Name: Agustin Gomez Procedure Date: 02/05/2022 1:10 PM Date of : 1965 Admit Type: Outpatient Age: 56 Gender: Female Attending MD: Dontae Stevens M.D. Room: REPLACED BY [facility] ENDOSCOPY ROOM 1 Note Status: Finalized Patient [...] under direct vision. The Pediatric Colonoscope [id number] was introducedthrough the anus and advanced to [...] 1:10 PM Procedure Code(s): --- Professional --- 27078, Colonoscopy, flexible; with biopsy, single or multiple Diagnosis Code(s): --- Professional --- Z12.11, Encounter for screening for malignant neoplasm of colon K64.8, Other hemorrhoids D12.5, Benign neoplasm of sigmoid colon CPT copyright 2020 [employer]. All rights reserved. The codes documented in this report are preliminary and upon powerhouse attendant reviewmay be revised to meet current compliance requirements. Recognized by the [employer] for promoting quality in endoscopy Dontae Stevens MD ENDOSCOPY PROCEDURES Final Result from Last 3 Months or Most Recently Relevant to Health Maintenance Additional Health Concerns Infection Onset Date Last Indicated CRE Comment:Contact Precautions (gown and gloves) RAMYA Au 09/25/22 08/16/2022 08/16/2022 MDR gram neg/ESBL Comment:Contact Precautions (gown and gloves) RAMYA Au 09/25/22 08/16/2022 08/16/2022 C. difficile 12/04/2024 12/04/2024 Insurance [address] [id number] [facility] CHOICE PLUS [facility] HMO/PPO Address: [address] [address] [place] [address] MEDICARE [facility] Address: [address] [address] [place] [address] [place] [id number] [facility] CHOICE PLUS [facility] HMO/PPO Address: [address] [address] [place] [address] MEDICARE [facility] CHOICE PLUS [facility] HMO/PPO Address: [address] [address] [place] [address] MEDICARE Advance Directives For more information, please contact: [phone] Documents on File Type Date Recorded 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 Use antibiotics, IV Fluids, and medical treatment unless specifically selected below: No intubation * Full Code Date Activated Date Inactivated Comments 12/04/2024 3:36 PM 12/05/2024 1:43 AM * LIMITED - No CPR Date Activated Date Inactivated Comments 11/18/2024 8:35 PM 11/30/2024 9:16 PM Question Answer Comments Provide aggressive medical [...] treatment unless specifically selected below: No intubation Care Teams Grinder Dresser Relationship Specialty Start Date End Date Juni Hays MD [address] [address] PCP - General Internal Medicine 08/18/24 Kingston Jain DO [address] [place] [address] Consulting Physician Cardiovascular Disease 06/20/20 Candido Lobato MD [address] [facility], [address] [place] [address] Medical Oncology 05/02/23 [place] [address] [facility] [address] [place] [address] Physician Airline Attendant Orthopedic Surgery 06/16/24
--- OUTSIDE RECORDS SUMMARY | 2024-12-09 18:02 | XMS_ITS | Encounter Summary ---
Author Organization [facility] Address [address] [place] [address] Phone Care Team Providers Care Cook Manager Name Role Phone Juni Hays MD Primary Care Provider [phone] Shivam Benedict MD Unavailable Radha Crews APRN, [facility] Unavailable + [phone] Sacha Penn MD Unavailable [phone] Reason for Visit * Reason Onset Date Comments Medication Refill 11/05/2022 Encounter Details Date Type Department Care Team (Late st Contact Info) Description 11/05/2022 Refill [facility] [address] [place] [address] Varghese Gleason, PAC [address] [place], [place] [address] Medication Refill Social History Tobacco Use Types [...] Cervicalgia documented in this encounter Care Teams Cook Manager Relationship Specialty Start Date End Date Juni Hays MD PCP - General Internal Medicine 10/17/20 Shivam Benedict MD [address] [place] [address] Consulting Physician Pulmonary Disease 12/27/21 Radha Crews, FISHERIES BIOLOGIST, DISASTER DIRECTOR [address] [place] [address] Nurse Practitioner Advanced Practice Nurse 01/04/22 Sacha Penn MD [address] [place] [address] Consulting Physician Neurology 07/25/23 documented as of this encounter
--- OUTSIDE RECORDS SUMMARY | 2024-12-09 18:03 | XMS_ITS ---
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 farxiga given her elevated A1c and history of congestive heart failure. Potential side effects of Farxiga discussed and call back if any develop. Drink an extra glass of water daily. Continue metformin 2000 mg extended release daily. Check A1c before next visit. Diet exercise weight loss discussed. Assessment & Plan (09/03/2020 3:35 PM SALES AGENT PEST CONTROL SERVICE): Increase Levemir to 38 units twice daily. [...] on chronic systolic co ngestive heart failure ([facility]) 11/19/2024 11/19/2024 Palliative care by specialist 08/26/2024 09/16/2024 Dyspnea due to congestive he art failure ([facility]) 08/26/2024 09/16/2024 Acute on chronic systolic heart failure 08/26/2024 09/16/2024 Chronic systolic heart failure ([facility]) 08/23/2024 09/16/2024 Elevated troponin 08/23/2024 09/16/2024 Urinary tract infection with out hematuria, site unspecified 01/05/2024 05/31/2024 Influenza A 10/29/2023 02/27/2024 Respiratory distress 10/29/2023 024 Chest pain 07/15/2023 05/31/2024 Non-ischemic cardiomyopathy ([facility]) 06/13/2023 05/31/2024 Abdominal pain 03/25/2023 05/31/2024 Pneumonia [...] 6:16 AM CDT): Nutrition discussed and offered grey goods marker consultation if needed. Chest pain 06/26/2022 02/06/2023 Overview (06/26/2022): Added automatically from request for surgery [id number] Family history of colon cancer 12/14/2021 02/06/2023 Low serum vitamin B12 12/14/20212021 BRBPR (bright red blood per rectum) 12/14/2021 02/06/2023 Atherosclerotic heart diseas e of [place] coronary artery without angina pectoris 09/03/2020 02/06/2023 Assessment & Plan (01/20/2023 6:16 AM CDT): Continue current medication regimen follow up with law tutor as they direct. Assessment & Plan (09/25/2021 11:23 AM SALES AGENT PEST CONTROL SERVICE): Continue current medication regimen follow up with her law tutor as they direct Assessment & Plan (02/09/2021 9:13 AM CDT): Continue current medication regimen and follow up with law tutor as they direct. Assessment & Plan (09/26/2020 9:26 AM SALES AGENT PEST CONTROL SERVICE): Continue aspirin, atorvastatin, carvedilol, Entresto and follow up with law tutor as they direct. Assessment & Plan (09/03/2020 3:26 PM SALES AGENT PEST CONTROL SERVICE): Continue current medication regimen and follow up with her law tutor as they direct. At low risk for fall 09/03/2020 022 Assessment & Plan (09/03/2020 3:36 PM SALES AGENT PEST CONTROL SERVICE): Timed get up and go test normal. Abnormal TSH 08/31/2020 02/09/2021 Acute respiratory failure wi th hypoxia (CMS/HCC) 06/15/2020 02/09/2021 Pneumonia 06/15/2020 02/09/2021 Hemoglobin A1C greater than 9%, indicating poor diabetic control 02/21/2020 02/09/2021 Type 2 diabetes mellitus wit hout complication, without long-term current use of insulin (CMS/HCC) 12/28/2019 08/31/2020
--- OUTSIDE RECORDS SUMMARY | 2024-12-09 18:03 | XMS_ITS | Encounter Summary ---
Author Organization [facility] Address [address] [place] [address] Phone Care Team Providers Care Paint Technician Name Role Phone Juni Hays MD Primary Care Provider [phone] Shivam Benedict MD Unavailable Radha Crews APRN, HEATING PLANT SUPERINTENDENT Unavailable + [phone] Sacha Penn MD Unavailable [phone] Reason for Visit * Reason Comments Medication Refill Encounter Details Date Type Department Care Team (Late st Contact Info) Description 05/09/[address] [facility] - Neurology [facility] [address] [place] [id number] Radha Crews APRN, HEATING PLANT SUPERINTENDENT [address] [place] [address] Medication Refill Social History Tobacco Use Types [...] on filedocumented in this encounter Care Teams Paint Technician Relationship Specialty Start Date End Date Juni Hays MD PCP - General Internal Medicine 10/17/20 Shivam Benedict MD [address] [place] [address] Consulting Physician Pulmonary Disease 12/27/21 Radha Crews, VOCAL ARTIST, HEATING PLANT SUPERINTENDENT [address] [place] [address] Nurse Practitioner Advanced Practice Nurse 01/04/22 Sacha Penn MD [address] [place] [address] Consulting Physician Neurology 07/25/23 documented as of this encounter
--- OUTSIDE RECORDS SUMMARY | 2024-12-09 18:03 | XMS_ITS | Encounter Summary ---
Author Organization [facility] Address [address] [place] [address] Phone Care Team Providers Care Appraiser Boats And Marine Name Role Phone Juni Hays MD Primary Care Provider [phone] Shivam Benedict MD Unavailable Radha Crews APRN, FRANCHISE SALES REPRESENTATIVE Unavailable + [phone] Sacha Penn MD Unavailable [phone] Reason for Visit * Reason Comments Medication Refill Encounter Details Date Type Department Care Team (Late st Contact Info) Description 03/04/2022 Refill [facility] - Neurology [facility] [address] [place] [address] Sacha Penn MD [address] [place] [address] Medication Refill Social History Tobacco [...] migrainosus documented in this encounter Care Teams Appraiser Boats And Marine Relationship Specialty Start Date End Date Juni Hays MD PCP - General Internal Medicine 10/17/20 Shivam Benedict MD [address] [place] [address] Consulting Physician Pulmonary Disease 12/27/21 Radha Crews, DENTOFACIAL ORTHOPEDICS DENTIST, FRANCHISE SALES REPRESENTATIVE [address] [place] [address] Nurse Practitioner Advanced Practice Nurse 01/04/22 Sacha Penn MD [address] [place] [address] Consulting Physician Neurology 07/25/23 documented as of this encounter
--- OUTSIDE RECORDS SUMMARY | 2024-12-09 18:03 | XMS_ITS | Encounter Summary ---
Author Organization [facility] Address [address] [place] [address] Phone Care Team Providers Care Ui Software Developer Name Role Phone Juni Hays MD Primary Care Provider [phone] Shivam Benedict MD Unavailable Radha Crews APRN, SHREDDING MACHINE TENDER Unavailable + [phone] Sacha Penn MD Unavailable [phone] Reason for Visit * Reason Comments Medication Refill Encounter Details Date Type Department Care Team (Late st Contact Info) Description 03/23/2023 Refill [facility] - Neurology [facility] [address] [place] [address] Sacha Penn MD [address] [place] [address] Medication Refill Social History Tobacco [...] Dept 02/14/23 Procedure Visit Sacha Penn MD [facility] [place] 11/22/22 Procedure Visit Sacha Penn MD [facility] [place] 08/07/22 Procedure Visit Sacha [facility] MD [facility] [place] 05/01/22 Procedure Visit Sacha Penn MD [facility] Showing recent visits within past 365 days and meeting all other requirements Future Appointments Date Type Provider Dept 05/09/23 Appointment Sacha Penn MD [facility] [place] Showing future appointments within next 90 days and meeting all other requirements documented in this encounter Plan of Treatment Not on file documented as of this encounter Visit Diagnoses Not on filedocumented in this encounter Care Teams Ui Software Developer Relationship Specialty Start Date End Date Juni Hays MD PCP - General Internal Medicine 10/17/20 Shivam Benedict MD [address] [place] [address] Consulting Physician Pulmonary Disease 12/27/21 Radha Crews, WATCH ASSEMBLY INSTRUCTOR, SHREDDING MACHINE TENDER [address] [place] [address] Nurse Practitioner Advanced Practice Nurse 01/04/22 Sacha Penn MD [address] [place] [address] Consulting Physician Neurology 07/25/23 documented as of this encounter
--- OUTSIDE RECORDS SUMMARY | 2024-12-09 18:03 | XMS_ITS | Clinical Summary ---
Author Organization [facility] Address [address] [facility] [place] [address] Phone Care Team Providers Care Skilled Nursing Case Manager Name Role Phone Juni Hays MD Primary Care Provider [phone] Shivam Benedict MD Unavailable Radha Crews APRN, MAINFRAME PROGRAMMER Unavailable + [phone] Sacha Penn MD Unavailable [phone] Allergies Active Allergy Reactions Criticality Noted Date [...] (HCV) Screening 1963 Diabetes: Nephropathy Screening 1981 Pap Smear 1984 Cervical Cancer Screening (CCS) 1993 HPV/Cotest 1993 Cologuard 2013 Immunochemical Fecal Occult Blood 2013 Pneumococcal Immunization (50+ years) (2 of 2 - PCV) 07/10/2021 07/10/2020 Respiratory Syncytial Virus (RSV) Immunization (Adult) (1 - Risk 60-74 years 1-dose series) 2023 Mammogram 04/01/2024 04/01/2023, 05/0 02/2022, 02/12/2021, Additional history exists Influenza Immunization (#1) 2024 12/2 04/2022, 07/13/2022, 07/10/2020, Additional history exists SARS-COV-2 Immunization [...] this topic Medical Devices Implanted Type Area Tire Worker Device Identifier Shelf Expiration Date Model / Serial / Lot 3 Hole Humeral Plate Implanted:Qty: 1 on 02/28/2020 by Prosper Tolbert MD at [facility] Left: Shoulder DePuy 241.901 / 241.901 / N/A 28 Locking Screw Implanted:Qty: 1 on 02/28/2020 by Prosper Tolbert MD at [facility] Left: Shoulder 212.110 / 212.110 / N/A 38 Locking Screw Implanted:Qty: 1 on 02/28/2020 by Prosper Tolbert MD at [facility] Left: Shoulder DePuy 212.116 / 212.116 / N/A 34 Locking Screw Implanted:Qty: 3 on 02/28/2020 by Prosper Tolbert MD at [facility] Left: Shoulder 212.113 / 212.113 / N/A 30 Locking Screw Implanted:Qty: 1 on 02/28/2020 by Prosper Tolbert MD at [facility] Left: Shoulder DePuy 212.111 / 212.111 / N/A 32 Locking Screw Implanted:Qty: 1 on 02/28/2020 by Prosper Tolbert MD at [facility] Left: Shoulder DePuy 212.112 / 212.112 / N/A 26 Locking Screw Implanted:Qty: 1 on 02/28/2020 by Prosper Tolbert MD at [facility] Left: Shoulder DePuy 212.109 / 212.109 / N/A 26 Non Locking Screw Implanted:Qty: 1 on 02/28/2020 by Prosper Tolbert MD at [facility] Left: Shoulder DePuy 204.826 / 204.826 / N/A Explanted Type Area Tire Worker Device Identifier Shelf Expiration Date Model / Serial / Lot 30 Nonlocking Screw Explanted:Qty: 1 on 02/28/2020 by Prosper Tolbert MD at [facility] Left: Shoulder DePuy 204.830 / 204.830 / N/A Procedures Procedure Name Priority Date/Time Associated Diagnosis Comments POCT GLYCOSYLATED HEMOGLOBIN Routine 09/19/2019 8:49 AM WORKERS COMPENSATION CLAIMS ANALYST Type 2 diabetes mellitus without complication, without long-term current use of insulin (HCC) COLONOSCOPY Routine 07/08/2012 from Last 3 Months or Most Recently Relevant to Health Maintenance Results * (ABNORMAL) POCT GLYCOSYLATED HEMOGLOBIN (09/19/2019 8:49 AM WORKERS COMPENSATION CLAIMS ANALYST) HGB-A1C 11.6(A) 4 - 6 09/19/2019 8:49 AM WORKERS COMPENSATION CLAIMS ANALYST us Betina Mcpherson HELICOPTER ENGINEER, SOLDERING MACHINE OPERATOR POINT OF CARE GINGER TING (MANUAL) Final Result * COLONOSCOPY (07/08/2012) us Jaspreet Pitts DO PROCEDURE/MINOR SURGICAL ORDERA BLES Final Result from Last 3 Months or Most Recently Relevant to Health Maintenance Insurance MEDICARE [facility] Advance Directives * Full Code (Latest Code Status on File) Date Activated Date Inactivated Comments 02/12/2023 6:41 AM Care Teams Skilled Nursing Case Manager Relationship Specialty Start Date End Date Juni Hays MD PCP - General Internal Medicine 10/17/20 Shivam Benedict MD [address] [place] [address] Consulting Physician Pulmonary Disease 12/27/21 Radha Crews APRN, MAINFRAME PROGRAMMER [address] [place] [address] Nurse Practitioner Advanced Practice Nurse 01/04/22 Sacha Penn MD [address] [place] [address] Consulting Physician Neurology 07/25/23
--- OUTSIDE RECORDS SUMMARY | 2024-12-09 18:03 | XMS_ITS | Encounter Summary ---
Author Organization [facility] Address [address] [place] [address] Care Team Providers Care Lumber Straightener Name Role Phone Kingston Jain DO Unavailable [phone] Candido Lobato MD Unavailable [phone] Kelli Bassett Unavailable [phone] Juni Hays MD Primary Care Provider [phone] Encounter Details Date Type Department Care Team (Late st Contact Info) Description 12/09/2024 Documentation [facility] Primary Care at [facility] [address] [address] Maura Grissom Social History Tobacco Use Types Packs/Day Years Used Date Smoking Tobacco: Former Cigarettes 1 5 1 983 - 1987 Smokeless Tobacco: Never Alcohol Use Standard Drinks/Week Comments No 0 (1 standard drink = 0.6 oz pur e alcohol) [facility] Utilities Answer Date Recorded In the past 12 months has [employer]Tax Credit Exchange, gas, oil, or water company threatened to [...] 12/06/2024 How often do you attend chur ch or caodaism services? More than 4 times per year 12/06/2024 Do you belong to any clubs o r organizations such as jainism groups, unions, fraternal or athletic groups, or [...] slept in a fpc (including now)? No 01/06/2024 Housing Stability Vital Sign Answer [place] e Recorded In the last 12 months, was t here a time when you were not able to pay the mortgage or rent on time? No 12/06/2024 In the past 12 months, how m any times have you moved where you were living? 0 12/06/2024 At any time in the past 12 m [facility], were you homeless or living in a fpc (including now)? No 12/06/2024 Personal Safety Answer [...] on file Legal Sex Female 2:31 PM REED OR WIND INSTRUMENT REPAIRER Gender Identity Not on file Sexual Orientation Not on file Occupation Industry Job Start Date Job End Date On Disability Not on file Not on file Not on file documented as of this encounter Progress Notes * Maura Grissom - 12/09/2024 3:29 PM CST LVM for daughter Ana to call the office to let us know if father was able to complete the top portion of the FMLA form. Once this is sent back to our office we can send the completed document to [employer]. 2nd attempt OR WIND INSTRUMENT REPAIRER documented in this encounter Plan of Treatment [...] on stairs Contact your local community or [facility] for information on exercise, fall prevention [...] 09/25/22 08/16/2022 08/16/2022 C. difficile 12/04/2024 12/04/2024 documented as of this encounter Care Teams Lumber Straightener Relationship Specialty Start Date End Date Juni Hays MD [address] [address] PCP - General Internal Medicine 08/18/24 Kingston Jain DO [address] [place] [address] Consulting Physician Cardiovascular Disease 06/20/20 Candido Lobato MD [address] [facility] MEDICAL ONCOLOGY, [facility] [address] [place] [address] Medical Oncology 05/02/23 [place] [address] [facility] [address] [place] [address] Physician Logistic Manager Orthopedic Surgery 06/16/24 documented as of this encounter
--- OUTSIDE RECORDS SUMMARY | 2024-12-09 18:03 | XMS_ITS | Referral Summary ---
Author Organization [facility] [address] Address [address] [place] [address] Care Team Providers Care Funding Coordinator Name Role Phone Kingston Jain DO Unavailable [phone] Candido Lobato MD Unavailable [phone] Kelli Bassett Unavailable [phone] Juni Hays MD Primary Care Provider [phone] Encounters Date Type Department Care Team Description 12/09/2024 Documentation [facility] Hospice - [address] [place], [place] [id number] Marisela London RN 12/09/2024 Documentation [facility] Medical Group Primary Care at [facility] [address], [place] [address] Maura Grissom 12/04/2024 3:33 PM WAISTLINE JOINER LOCKSTITCH - 12/09/2024 5:01 PM WAISTLINE JOINER LOCKSTITCH Hospital Encounter [facility] IMU 1 [place] [address] Franchesca Pierce MD Huynh, Kiet T., MD Davis, Cedric Emden II, MD Sargsyan, Narine, MD NSTEMI (non-ST elevated myocardial infarction) (CMS/HCC) (HCC) (Primary Dx); Hyperglycemia Discharge Disposition: Discharge to [facility] 12/08/2024 Telephone [place] [facility] at [address] [place] [address] Quyen Dorado MA 12/02/2024 Telephone [facility] Oncology [address] Floor 5 [place] [phone] Candido Lobato MD 12/02/2024 Anticoagulation Telephone Call [facility] Medical Group Primary Care at [facility] [address], [place] [phone] Sugar Carlisle NP 11/18/2024 5:40 AM WAISTLINE JOINER LOCKSTITCH - 11/30/2024 5:05 PM WAISTLINE JOINER LOCKSTITCH Hospital Encounter [address] [phone] Hesham Madsen MD Acute on chronic systolic congestive heart failure (CMS/HCC) (HCC) (Primary Dx); Atrial thrombus; Uncontrolled type 2 diabetes mellitus with hyperglycemia (HCC) Discharge Disposition: Discharge to home or self care 11/25/2024 Telephone [facility] Medical [facility] Primary Care at [facility] [address], [place] [address] Juni Hays MD 11/24/2024 Anticoagulation Telephone Call [facility] Primary Care at [facility] [address], [place] [address] Sugar Carlisle NP 11/18/2024 7:38 AM WAISTLINE JOINER LOCKSTITCH Anesthesia Event [facility] Operating Room 1 [place] [phone] Elba Medina MD PhD 11/18/2024 7:30 AM WAISTLINE JOINER LOCKSTITCH - 11/18/2024 10:10 AM WAISTLINE JOINER LOCKSTITCH Surgery [facility] Operating Room 1 [place] [phone] Hesham Madsen MD RIGHT BAROSTIM PLACEMENT 11/17/2024 Telephone [facility] Endocrinology Metabolism and Lipid [address] [facility] 5th Floor [address] [place] [phone] Tabatha Berger RN 11/08/2024 1:44 AM WAISTLINE JOINER LOCKSTITCH - 11/17/2024 4:19 PM WAISTLINE JOINER LOCKSTITCH Hospital Encounter [facility] IMU 1 [place] [address] Sanjeev Gonzales MD Singh, Supriya, MD Sargsyan, Narine, MD Chest pain, unspecified type (Primary Dx); NSTEMI (non-ST elevated myocardial infarction) (CMS/HCC) (HCC) Discharge Disposition: Discharge to SNF 11/16/2024 Telephone [facility] Surgery [id number] [place] [address] Medical Office Building 1 [address], [place] [phone] Mell Jalloh RMA Surgery Confirmation 11/16/2024 Anticoagulation Telephone Call [facility] Medical [facility] Primary Care at [address], [place] [address] Sugar Carlisle NP 11/12/2024 Orders Only [facility] Oncology [address] Floor 5 [place] [phone] Candido Lobato MD Neuroendocrine cancer (HCC) (Primary Dx); Secondary neuroendocrine tumors (HCC) 11/11/2024 Telephone [facility] Surgery [id number] [place] [address] Medical Office Building 1 [address], [place] [address] Mell Jalloh RMA Surgery Confirmation 11/07/2024 Ancillary Procedure [facility] [employer] 11/07/2024 Orders Only [facility] Health Information Management [address] [place] [address] Scanning, Provider 11/05/2024 Anticoagulation Telephone Call [facility] Primary Care at [address], [place] [phone] Sugar Carlisle, ABDON 11/05/2024 10:40 AM WAISTLINE JOINER LOCKSTITCH Office Visit [facility] Endocrinology Metabolism and Lipid 1 [facility] [address] [place] [address] Coy Patel MD Uncontrolled type 2 diabetes mellitus with hyperglycemia (HCC) (Primary Dx); Osteoporosis with current pathological fracture, unspecified osteoporosis type, sequela; Postmenopausal osteoporosis; At high risk for fracture; Hypothyroidism, unspecified type; Insulin long-term use (CMS/HCC) (HCC) [Z79.4] 11/04/2024 Orders Only [facility] Health Information Management [address] [place] [address] Scanning, Provider 11/04/2024 Telephone [facility] Medical [facility] Primary Care at [address] [place] [phone] Juni Hays MD Test Results 11/01/2024 Telephone [place] [facility] at [address] [place] [address] Lis Saltillo, MA 10/29/2024 Documentation [facility] Medical Group Primary Care at [address] [place] [phone] Maura Grissom 10/29/2024 Telephone [facility] Medical [facility] Primary Care at [address] [place] [phone] Juni Hays MD Medical Question/Miscellaneo us 10/28/2024 Anticoagulation Telephone Call [facility] Medical [facility] Primary Care at [address] [place] [phone] Sugar Carlisle NP 10/27/2024 Documentation Cardiology Sue Quinn NP 10/27/2024 8:10 AM WAISTLINE JOINER LOCKSTITCH - 10/27/2024 11:59 PM WAISTLINE JOINER LOCKSTITCH Hospital Encounter [facility] Radiology 1 [place] [address] Encounter for imaging to screen for metal prior to magnetic resonance imaging (MRI) Discharge Disposition: Discharge to home or self care 10/27/2024 8:10 AM WAISTLINE JOINER LOCKSTITCH - 10/27/2024 11:59 PM WAISTLINE JOINER LOCKSTITCH Hospital Encounter [facility] Radiology 1 [place] [address] Candido Lobato MD Neuroendocrine cancer (HCC); Secondary neuroendocrine tumors (HCC) Discharge Disposition: Discharge to home or self care 10/25/2024 Anticoagulation Telephone Call [facility] Medical [facility] Primary Care at [address] [place] [phone] Sugar Carlisle NP 10/25/2024 Telephone [facility] Primary Care at [address] [place] [phone] Sugar Carlisle NP 10/25/2024 2:00 PM WAISTLINE JOINER LOCKSTITCH - 10/25/2024 11:59 PM WAISTLINE JOINER LOCKSTITCH Hospital Encounter [facility] Vascular Lab [address] [place] [address] Encounter for other preprocedural examination Discharge Disposition: Discharge to home or self care 10/25/2024 3:00 PM WAISTLINE JOINER LOCKSTITCH Office Visit [facility] Surgery [address] [facility] Medical Office Building 1 [address] [place] [phone] Hesham Madsen MD Nonocclusive coronary atherosclerosis of augustine coronary artery; Dilated cardiomyopathy (CMS/HCC) (HCC); Paroxysmal atrial fibrillation (CMS/HCC) (HCC); Elevated brain natriuretic peptide (BNP) level 10/22/2024 Orders Only [facility] Health Information Management [address] [place] [address] Scanning, Provider 10/21/2024 Orders Only [facility] Medical [facility] Primary Care at [address] [place] [phone] Juni Hays MD Anemia, unspecified type (Primary Dx) 10/20/2024 3:00 PM WAISTLINE JOINER LOCKSTITCH Ancillary Procedure [place] [facility] [address] [facility] [address] [place] [phone] ICD (implantable cardioverter-defibri llator) in place; Dilated cardiomyopathy (CMS/HCC) (HCC); Paroxysmal A-fib (CMS/HCC) (HCC) 10/19/2024 Telephone [place] [facility] at [address] [place] [phone] Lizett Hays, ILDA 10/19/2024 Telephone [facility] Medical Group Primary Care at [address], [place] [phone] Juni Hays MD Medical Question/Miscellaneo us 10/15/2024 Telephone [facility] Medical Group Primary Care at [address] [place] [phone] Juni Hays MD Medical Question/Miscellaneo us 10/15/2024 Anticoagulation Telephone Call [facility] Medical [facility] Primary Care at [address], [place] [phone] Sugar Carlisle, ABDON 10/08/2024 Orders Only [facility] Surgery [address] [facility] Medical Office Building 1 [address], [place] [address] Hesham Madsen MD Encounter for other preprocedural examination (Primary Dx) 10/08/2024 Telephone [facility] Medical [facility] Primary Care at [address] [place] [phone] Juni Hays MD Test Results 10/08/2024 Anticoagulation Telephone Call [facility] Medical Group Primary Care at [address], [place] [phone] Sugar Carlisle NP 10/07/2024 Telephone [facility] Medical Group Primary Care at [address], [place] [phone] Juni Hays MD 10/04/2024 Telephone [place] [facility] at [address] [place] [phone] Rajan Begum MD 10/01/2024 Telephone [facility] Medical [facility] Primary Care at [facility] [address] [place] [phone] Juni Hays MD Medical Question/Miscellaneo us 10/01/2024 Anticoagulation Telephone Call [facility] Primary Care at [facility] [address] [place] [address] Raisa Farnsworth PA 10/01/2024 Anticoagulation Telephone Call [facility] Primary Care at [facility] [address] [place] [phone] Sugar Carlisle NP 10/01/2024 Telephone [facility] Primary Care at [facility] [address] [place] [phone] Juni Hays MD 09/30/2024 Orders Only [place] [facility] at [address] [place] [address] Rajan Begum MD Nonocclusive coronary atherosclerosis of augustine coronary artery (Primary Dx); Dilated cardiomyopathy (CMS/HCC) (HCC); Paroxysmal atrial fibrillation (CMS/HCC) (HCC); Drug-induced hypotension; Elevated brain natriuretic peptide (BNP) level 09/30/2024 Telephone [facility] [address] [place] [phone] Regino Hansen MD 09/30/2024 10:30 AM WAISTLINE JOINER LOCKSTITCH Office Visit [place] [facility] at [address] [place] [phone] Rajan Begum MD Dilated cardiomyopathy (CMS/HCC) (HCC) (Primary Dx); Paroxysmal atrial fibrillation (CMS/HCC) (HCC) 09/23/2024 Anticoagulation Telephone Call [facility] Medical [facility] Primary Care at [address] [phone] Sugar Carlisle NP 09/23/2024 Telephone [facility] Primary Care at [address] [phone] Juni Hays MD Test Results 09/22/2024 Orders Only [facility] Primary Care at [address] [phone] Juni Hays MD Dysuria (Primary Dx) 09/22/2024 Telephone [facility] Primary Care at [address] [phone] Juni Hays MD Additional Services Or Orders 09/17/2024 Orders Only [facility] Oncology [address] [place] [address] Floor 5 [place] [address] Candido Lobato MD Neuroendocrine cancer (HCC) (Primary Dx) 09/16/2024 Telephone [facility] Oncology [address] [place] [address] 5 [place] [address] Candido Loabto MD 09/16/2024 3:00 PM WAISTLINE JOINER LOCKSTITCH Telemedicine [facility] Medical [facility] Primary Care at [address] [phone] Juni Hays MD Chronic combined systolic and diastolic congestive heart failure (CMS/HCC) (HCC) (Primary Dx); Essential hypertension; Paroxysmal atrial fibrillation (CMS/HCC) (HCC); Weakness generalized; Atrial thrombus 09/16/2024 Telephone [facility] Primary Care at [address] [phone] Juni Hays MD Medical Question/Miscellaneo us 09/08/2024 Telephone [facility] Oncology [address] [facility] [address] [place] [address] Candido Lobato MD 09/08/2024 Orders Only [facility] Oncology [address] 5 [place] [address] Candido Lobato MD from Last 3 Months Allergies Active Allergy [...] (two) times a day 180 capsule 3 024 2024 Active rizatriptan (MAXALT) 10 mg tablet Take 1 tablet (10 mg total) by mouth once as needed for migraine May repeat in 2 hours if unresolved. Do not exceed 30 mg in 24 hours. 9 tablet 11 Active metoprolol tartrate (LOPRESSOR) 25 mg immediate release tablet Take 0.5 tablets (12.5 mg total) by mouth 2 (two) times a day 90 tablet 3 024 2024 Active bisacodyL (DULCOLAX) 10 mg suppository [...] total) by mouth daily 30 tablet 11 19/ 2025 Active midodrine (PROAMATINE) 10 mg tablet Take [...] TABLET BY MOUTH DAILY 90 tablet Active hydrocortisone (ANUSOL-HC) 2.5 % rectal cream [...] mouth nightly 025 2024 Active blood-glucose sensor (Dexcom G7 Sensor) deviceIndications [...] sugar (blood glucose less than 70 mg/dL) 024 2024 Discontinued(S top Taking at Discharge) insulin glargine (LANTUS, SEMGLEE) 100 unit/mL vial for injectionIndicati ons:Diabetes Mellitus Inject 25 Units under the skin every morning [address] (PROTONIX) 40 mg [...] 1.5 mg 1 day 30 tablet 5 024 2024 Discontinued(S top Taking at Discharge) Entresto 24-26 mg tablet Take 1 tablet by mouth 2 (two) times a day 180 tablet 3 024 2024 Discontinued oxyCODONE (ROXICODONE) 10 mg tablet [...] down 10 minutes after injection. 2.4 mL 2024 Discontinued(S top Taking at Discharge) metFORMIN XR (GLUCOPHAGE XR) 500 mg 24 hr tabletIndications :Uncontrolled type 2 diabetes mellitus with hyperglycemia (HCC) 2 tabs po daily (hold if nause/vomit or not feeling well). 60 tablet 025 2024 Discontinued furosemide (LASIX) 40 mg tablet [...] 025 2024 Discontinued(S top Taking at Discharge) oxyCODONE (ROXICODONE) 10 mg tablet Take 1 tablet (10 mg total) by mouth every 6 (six) hours as needed for pain 5 tablet 025 2024 Discontinued insulin glargine (LANTUS, SEMGLEE) 100 unit/mL vial for injectionIndicati ons:Diabetes Mellitus Inject 30 Units under the skin every morning 025 2024 Discontinued(S top Taking at Discharge) warfarin (COUMADIN) 3 mg tabletIndications :LV thrombus Take 1 tablet (3 mg total) by mouth daily 025 2024 [...] 11/30/2024 Assessment & Plan (11/30/2024 7:29 AM WAISTLINE JOINER LOCKSTITCH): Remains medically stable for over a week. Waiting on insurance auth for SNF. Denied. P2P completed on 11/30 and decision overturned. -patient is a good SNF candidate requiring care from PT/OT and nursing staff. She requires adjustments to her insulin regimen and close monitoring of her respiratory status given severe CHF Heart failure 11/18/2024 Chest pain 11/08/2024 NSTEMI (non-ST elevated myocardial infarction) ( [facility]) 11/08/2024 Chronic combined systolic an d diastolic heart failure ([facility]) 10/25/2024 Atrial thrombus 08/26/2024 Assessment & Plan (11/29/2024 6:45 AM WAISTLINE JOINER LOCKSTITCH): On warfarin at home, has been held pre operatively -11/20 bridge to therapeutic warfarin, restarted on home dose of warfarin 2mg -11/22: load with warfarin 5mg and switch back to home 2mg after that. -INR >3 so lovenox stopped. -cont warfarin 2mg. - INR daily Assessment & Plan (09/16/2024 6:15 PM WAISTLINE JOINER LOCKSTITCH): Eliquis discontinued in favor of warfarin. Weakness generalized 08/23/2024 Assessment & Plan (09/16/2024 6:14 PM WAISTLINE JOINER LOCKSTITCH): Probably combination of multiple beta-salbador usage and [...] 06/04/2024 Assessment & Plan (08/20/2024 7:53 AM WAISTLINE JOINER LOCKSTITCH): Recent hospitalization for melena 2 months ago. [...] 12/01/2023 Assessment & Plan (11/29/2024 6:46 AM WAISTLINE JOINER LOCKSTITCH): Chronic. 2/2 recent hospitalization and now post surgery. But chronically debilitated 2/2 severe CHF -PT/OT---evaluated during OSH admission and recommended SNF. Re-eval still rec SNF. Working on placement. -OOB, PT/OT. Assessment & Plan (12/01/2023 10:53 AM WAISTLINE JOINER LOCKSTITCH): She has unfortunately been in and out of ours and other hospitals for the last several weeks due to multiple issues all contributing to her debility and declining functional status. Time course as follows: 10/29 - 11/02: admitted to [facility] for respiratory failure thought due to [...] to worsening pain 11/08-11/20 - hospitalized at [facility] for compression fracture and intractable neck/back [...] 2023 Assessment & Plan (11/22/2023 2:26 PM WAISTLINE JOINER LOCKSTITCH): - S/p prophylactic single chamber ICD (Biotronik) 07/15/23 for persistent LV dysfunction/non-ischemic cardiomyopathy Eye pain, left 2023 Assessment & Plan (11/24/2023 4:20 PM WAISTLINE JOINER LOCKSTITCH): No evidence of corneal abrasion on exam [...] kyphoplasty. Assessment & Plan (12/03/2023 9:07 AM WAISTLINE JOINER LOCKSTITCH): 3 week Hx of acute on chronic upper and mid thoracic back pain. +midline tenderness at sites without evidence of saddle symptoms/neurologic compromise. Hx of thoracolumbar to sacral fusion with Dr. Richardson ([facility]) 08/29/2022 followed by kyphoplasty above her fusion [...] 11/11/2023 Assessment & Plan (11/29/2024 6:46 AM WAISTLINE JOINER LOCKSTITCH): On 3L O2 via NC at all times. - Continue supplemental O2 - SpO2 w/ tele. Closed wedge compression fracture of T5 vertebra 11/11/2023 Compression fracture of body of thoracic vertebr a (CMS/HCC) 11/10/2023 Intractable back pain 11/07/2023 Assessment & Plan (11/07/2023 8:36 AM WAISTLINE JOINER LOCKSTITCH): Acute on chronic-worsening for the last 10 [...] 90%. Assessment & Plan (11/07/2023 8:40 AM WAISTLINE JOINER LOCKSTITCH): Acute problem-stable Continue with oxygen supplement 2 to 3 L via nc as directed Continue to monitor Hypoxemia 10/29/2023 Assessment & Plan (05/31/2024 5:45 PM CDT): Continue oxygen supplementation at 2 liters/minute continuously. Continue efforts at weaning and discontinuation. Recommended incentive spirometry throughout the day. Nasal septum perforation 10/08/2023 Assessment & Plan (10/08/2023 2:38 PM WAISTLINE JOINER LOCKSTITCH): Septal perforation Nasal saline spray (Simply saline, [employer], [place], [employer]) 2 second sprays or 2 squeezes into each nostril while looking down over the sink, do not need to sniff in 3-4 times per day Max out humidifier on CPAP Sniff in and spit out when using saline Chronic rhinitis 10/08/2023 Assessment & Plan (10/08/2023 2:38 PM WAISTLINE JOINER LOCKSTITCH): Septal perforation Nasal saline spray (Simply saline, [employer], [place], [employer]) 2 second sprays or 2 squeezes into each nostril while looking down over the sink, do not need to sniff in 3-4 times per day Max out humidifier on CPAP Sniff in and spit out when using saline Epistaxis 10/08/2023 Assessment & Plan (10/08/2023 2:38 PM WAISTLINE JOINER LOCKSTITCH): Septal perforation Nasal saline spray (Simply saline, [employer], [place], [employer]) 2 second sprays or 2 squeezes into each nostril while looking down over the sink, do not need to sniff in 3-4 times per day Max out humidifier on CPAP Sniff in and spit out when using saline Atrial fibrillation (CMS/HCC) 09/26/2023 Assessment & Plan (11/29/2024 6:44 AM WAISTLINE JOINER LOCKSTITCH): - Continue home amiodarone, metoprolol. -AC as elsewhere. -tele Assessment & Plan (09/16/2024 6:12 PM WAISTLINE JOINER LOCKSTITCH): Rate controlled on metoprolol and will continue warfarin. She is aware to take this medication in the evening. She knows to keep her leafy green vegetable intake consistent. She is also aware to call the office if she does not hear from us regarding her INR and warfarin instructions by the afternoon of testing. [facility] contacted today for INR results and we were told it would be faxed to us and have not yet received it. She is aware to go to the hospital for any signs of excessive bruising or bleeding. Assessment & Plan (05/31/2024 5:45 PM CDT): Eliquis for anticoagulation. Rate currently controlled on metoprolol. Cardiology recently added amiodarone. Assessment & Plan (12/01/2023 7:17 PM WAISTLINE JOINER LOCKSTITCH): Eliquis for anticoagulation. Rate currently controlled Assessment & Plan (11/27/2023 3:57 PM WAISTLINE JOINER LOCKSTITCH): Held Eliquis initially for procedure, now resumed. [...] direct Assessment & Plan (12/01/2023 7:19 PM WAISTLINE JOINER LOCKSTITCH): Follow-up with oncology as they direct Assessment & Plan (11/22/2023 2:24 PM WAISTLINE JOINER LOCKSTITCH): Neuroendocrine tumor of liver. Follows with Dr. [...] direct Assessment & Plan (10/11/2022 6:46 PM WAISTLINE JOINER LOCKSTITCH): Follow-up with oncology as they direct. Osteoporosis 10/11/2022 Assessment & Plan (07/30/2024 11:40 AM CDT): Continue management as directed by her wearing apparel presser. Assessment & Plan (05/31/2024 5:45 PM CDT): Follow-up with her wearing apparel presser for management as they direct. Assessment & Plan (01/02/2024 6:29 PM CDT): Follow-up with her wearing apparel presser for management as they direct. Assessment & Plan (12/01/2023 7:19 PM WAISTLINE JOINER LOCKSTITCH): Continue calcium, vitamin-D, weight-bearing exercise, alendronate and follow up with her bone density specialist and auto body painter as they direct. Assessment & Plan (07/03/2023 11:56 AM CDT): Continue calcium, vitamin-D, weight-bearing exercise, alendronate follow-up bone density specialist and auto body painter as they direct. Assessment & Plan (02/06/2023 5:09 PM CDT): Continue alendronate, calcium, vitamin-D and follow-up with her bone density specialist as they direct Assessment & Plan (01/20/2023 6:17 AM CDT): Calcium, vitamin-D, alendronate and follow-up with her bone density specialist as they direct. Assessment & Plan (10/11/2022 6:48 PM WAISTLINE JOINER LOCKSTITCH): Continue calcium and vitamin-D and and alendronate [...] directed Assessment & Plan (10/11/2022 6:49 PM WAISTLINE JOINER LOCKSTITCH): Due to combination of deconditioning from recent [...] (07/05/2022): Added automatically from request for surgery [id number] Hematuria 05/10/2022 Assessment & Plan (04/05/2023 8:06 [...] 05/10/2022 Assessment & Plan (08/20/2024 8:53 AM WAISTLINE JOINER LOCKSTITCH): Patient has intermittent rectal bleeding with bright [...] AM CDT): Anusol cream p.r.n. Marlin esophagitis ([facility]) 12/14/2021 Intermittent diarrhea 12/14/2021 Anemia, unspecified 09/25/2021 Overview (02/06/2023): Resolved with b12/iron supplements. EGD/Colon without bleeding sources. Assessment & Plan (07/30/2024 11:42 AM CDT): Patient advised to have her CBC and iron panel done at [facility] as ordered by her chief merchandising officer. Follow up with Dr. Stevens for [...] supplements. Assessment & Plan (09/25/2021 11:23 AM WAISTLINE JOINER LOCKSTITCH): Check iron levels, B12, folate today. Call [...] improve Assessment & Plan (09/25/2021 11:24 AM WAISTLINE JOINER LOCKSTITCH): Cipro and also provided Diflucan for antibiotic induced yeast infection. Onychomycosis 09/25/2021 Assessment & Plan (09/25/2021 11:24 AM WAISTLINE JOINER LOCKSTITCH): Terbinafine daily for 3 months and check [...] thereafter. Assessment & Plan (12/01/2023 7:17 PM WAISTLINE JOINER LOCKSTITCH): Continue supplementation check levels yearly Assessment & Plan (11/07/2023 8:37 AM WAISTLINE JOINER LOCKSTITCH): Chronic problem-stable Continue with B12 injections monthly B12 injection administered this visit Continue to monitor Assessment & Plan (07/03/2023 11:54 AM CDT): Continue supplementation and check levels yearly. Assessment & Plan (05/04/2023 12:05 PM CDT): Continue supplementation check levels yearly. Assessment & Plan (01/20/2023 6:16 AM CDT): Continue supplementation check level before next visit Assessment & Plan (10/11/2022 6:47 PM WAISTLINE JOINER LOCKSTITCH): Continue supplementation check levels yearly. Assessment & [...] 10/27/2020 Assessment & Plan (10/27/2020 8:30 AM WAISTLINE JOINER LOCKSTITCH): Ketoconazole cream twice daily. Call back if [...] visit. Assessment & Plan (12/01/2023 7:18 PM WAISTLINE JOINER LOCKSTITCH): Continue atorvastatin check lipids and LFTs before [...] visit. Assessment & Plan (10/11/2022 6:46 PM WAISTLINE JOINER LOCKSTITCH): Well controlled on current therapy and will [...] months. Assessment & Plan (09/25/2021 11:23 AM WAISTLINE JOINER LOCKSTITCH): Well controlled on current therapy and will [...] months. Assessment & Plan (12/07/2020 3:48 PM WAISTLINE JOINER LOCKSTITCH): Her muscle spasms may be from her atorvastatin and if decreasing her metformin does not improve her muscle spasms, then decrease her atorvastatin to half tablet daily. Call back if no improvement. Assessment & Plan (09/26/2020 9:26 AM WAISTLINE JOINER LOCKSTITCH): Well controlled on current therapy and will check a lipid panel and LFTs in 6 months. Gastroesophageal reflux disease 09/12/2020 Overview (09/12/2020): Added automatically from request for surgery [id number] Assessment & Plan (08/20/2024 7:54 AM WAISTLINE JOINER LOCKSTITCH): Doing well with Protonix daily. Will continue [...] due January 2027. Follow up with the housing officer as they direct. Will see her back in 6 months sooner if needed. Assessment & Plan (10/11/2022 6:48 PM WAISTLINE JOINER LOCKSTITCH): Flu shot each July. Tetanus booster every 10 years. Shingrix completed. COVID booster recommended. Mammogram yearly. Follow-up the housing officer for breast exam and pelvic exam as they direct. Colonoscopy due January 2027. Will see her back in few months with lab sooner if needed. Assessment & Plan (09/25/2021 11:25 AM WAISTLINE JOINER LOCKSTITCH): Flu shot each July. Tetanus booster every 10 years. Shingrix completed. COVID recommended. Mammogram yearly. Follow-up the housing officer for breast exam pelvic exam as they direct. Colonoscopy due June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 12/07/2024 12:27 AM WAISTLINE JOINER LOCKSTITCH MAGNESIUM Routine 12/07/2024 12:27 AM WAISTLINE JOINER LOCKSTITCH COMPREHENSIVE METABOLIC PANEL Routine 12/07/2024 12:27 AM WAISTLINE JOINER LOCKSTITCH CBC WITH AUTO DIFFERENTIAL Routine 12/07/2024 12:27 AM WAISTLINE JOINER LOCKSTITCH POCT GLUCOSE DEVICE Routine 12/06/2024 8 :52 PM WAISTLINE JOINER LOCKSTITCH POCT GLUCOSE DEVICE Routine 12/06/2024 5 :29 PM WAISTLINE JOINER LOCKSTITCH POCT GLUCOSE DEVICE Routine 12/06/2024 11:50 AM WAISTLINE JOINER LOCKSTITCH POCT GLUCOSE DEVICE Routine 12/06/2024 7 :49 AM WAISTLINE JOINER LOCKSTITCH EGFR Routine 12/06/2024 6:08 AM WAISTLINE JOINER LOCKSTITCH DIFFERENTIAL AUTO Routine 12/06/2024 6:0 8 AM WAISTLINE JOINER LOCKSTITCH PROTIME-INR Routine 12/06/2024 6:08 AM WAISTLINE JOINER LOCKSTITCH MAGNESIUM Routine 12/06/2024 6:08 AM WAISTLINE JOINER LOCKSTITCH COMPREHENSIVE METABOLIC PANEL Routine 12/06/2024 6:08 AM WAISTLINE JOINER LOCKSTITCH CBC WITH AUTO DIFFERENTIAL Routine 12/06/2024 6:08 AM WAISTLINE JOINER LOCKSTITCH POCT GLUCOSE DEVICE Routine 12/06/2024 2 :54 AM WAISTLINE JOINER LOCKSTITCH POCT GLUCOSE DEVICE Routine 12/05/2024 8 :38 PM WAISTLINE JOINER LOCKSTITCH POCT GLUCOSE DEVICE Routine 12/05/2024 5 :15 PM WAISTLINE JOINER LOCKSTITCH POCT GLUCOSE DEVICE Routine 12/05/2024 12:17 PM WAISTLINE JOINER LOCKSTITCH POCT GLUCOSE DEVICE Routine 12/05/2024 7 :42 AM WAISTLINE JOINER LOCKSTITCH EGFR Routine 12/05/2024 5:47 AM WAISTLINE JOINER LOCKSTITCH DIFFERENTIAL AUTO Routine 12/05/2024 5:4 7 AM WAISTLINE JOINER LOCKSTITCH MAGNESIUM Routine 12/05/2024 5:47 AM WAISTLINE JOINER LOCKSTITCH COMPREHENSIVE METABOLIC PANEL Routine 12/05/2024 5:47 AM WAISTLINE JOINER LOCKSTITCH CBC WITH AUTO DIFFERENTIAL Routine 12/05/2024 5:47 AM WAISTLINE JOINER LOCKSTITCH APTT Timed 12/05/2024 5:47 AM WAISTLINE JOINER LOCKSTITCH LIPID PANEL Routine 12/05/2024 5:47 AM WAISTLINE JOINER LOCKSTITCH ECG 12-LEAD Routine 12/05/2024 5:26 AM WAISTLINE JOINER LOCKSTITCH POCT GLUCOSE DEVICE Routine 12/05/2024 2 :38 AM WAISTLINE JOINER LOCKSTITCH APTT Timed 12/04/2024 11:06 PM WAISTLINE JOINER LOCKSTITCH TROPONIN T HIGH-SENSITIVITY 6-HOUR Timed 12/04/2024 10:12 PM WAISTLINE JOINER LOCKSTITCH POCT GLUCOSE DEVICE Routine 12/04/2024 9 :00 PM WAISTLINE JOINER LOCKSTITCH TROPONIN T HIGH-SENSITIVITY 4-HR Timed 12/04/2024 8:32 PM WAISTLINE JOINER LOCKSTITCH TROPONIN T HIGH-SENSITIVITY 2-HOUR Timed 12/04/2024 6:02 PM WAISTLINE JOINER LOCKSTITCH EGFR Routine 12/04/2024 4:12 PM WAISTLINE JOINER LOCKSTITCH APTT STAT 12/04/2024 4:12 PM WAISTLINE JOINER LOCKSTITCH CBC WITHOUT DIFFERENTIAL STAT 12/04/2024 4:12 PM WAISTLINE JOINER LOCKSTITCH PROTIME-INR STAT 12/04/2024 4:12 PM WAISTLINE JOINER LOCKSTITCH BASIC METABOLIC PANEL Routine 12/04/2024 4:12 PM WAISTLINE JOINER LOCKSTITCH TROPONIN T HIGH-SENSITIVITY SERIES (BASELINE, 2HR, 4HR, 6HR) Routine 12/04/2024 4:08 PM WAISTLINE JOINER LOCKSTITCH POCT GLUCOSE DEVICE Routine 11/30/2024 11:42 AM WAISTLINE JOINER LOCKSTITCH POCT GLUCOSE DEVICE Routine 11/30/2024 7 :37 AM WAISTLINE JOINER LOCKSTITCH POCT GLUCOSE DEVICE Routine 11/30/2024 2 :12 AM WAISTLINE JOINER LOCKSTITCH EGFR STAT 11/30/2024 12:02 AM WAISTLINE JOINER LOCKSTITCH BASIC METABOLIC PANEL STAT 11/30/2024 12:02 AM WAISTLINE JOINER LOCKSTITCH POCT GLUCOSE DEVICE Routine 11/29/2024 9 :58 PM WAISTLINE JOINER LOCKSTITCH EGFR Routine 11/29/2024 8:56 PM WAISTLINE JOINER LOCKSTITCH CRITICAL RESULT CALLBACK CHEMISTRY Routine 11/29/2024 8:56 PM WAISTLINE JOINER LOCKSTITCH DIFFERENTIAL AUTO Routine 11/29/2024 8:5 6 PM WAISTLINE JOINER LOCKSTITCH PROTIME-INR Routine 11/29/2024 8:56 PM WAISTLINE JOINER LOCKSTITCH CBC WITH AUTO DIFFERENTIAL Routine 11/29/2024 8:56 PM WAISTLINE JOINER LOCKSTITCH BASIC METABOLIC PANEL Routine 11/29/2024 8:56 PM WAISTLINE JOINER LOCKSTITCH POCT GLUCOSE DEVICE Routine 11/29/2024 7 :29 PM WAISTLINE JOINER LOCKSTITCH POCT GLUCOSE DEVICE Routine 11/29/2024 5 :12 PM WAISTLINE JOINER LOCKSTITCH POCT GLUCOSE DEVICE Routine 11/29/2024 11:17 AM WAISTLINE JOINER LOCKSTITCH POCT GLUCOSE DEVICE Routine 11/29/2024 7 :42 AM WAISTLINE JOINER LOCKSTITCH POCT GLUCOSE DEVICE Routine 11/29/2024 2 :07 AM WAISTLINE JOINER LOCKSTITCH POCT GLUCOSE DEVICE Routine 11/29/2024 12:02 AM WAISTLINE JOINER LOCKSTITCH EGFR Routine 11/28/2024 9:54 PM WAISTLINE JOINER LOCKSTITCH DIFFERENTIAL AUTO Routine 11/28/2024 9:5 4 PM WAISTLINE JOINER LOCKSTITCH PROTIME-INR Routine 11/28/2024 9:54 PM WAISTLINE JOINER LOCKSTITCH CBC WITH AUTO DIFFERENTIAL Routine 11/28/2024 9:54 PM WAISTLINE JOINER LOCKSTITCH BASIC METABOLIC PANEL Routine 11/28/2024 9:54 PM WAISTLINE JOINER LOCKSTITCH POCT GLUCOSE DEVICE Routine 11/28/2024 7 :26 PM WAISTLINE JOINER LOCKSTITCH POCT GLUCOSE DEVICE Routine 11/28/2024 6 :16 PM WAISTLINE JOINER LOCKSTITCH POCT GLUCOSE DEVICE Routine 11/28/2024 5 :01 PM WAISTLINE JOINER LOCKSTITCH POCT GLUCOSE DEVICE Routine 11/28/2024 11:19 AM WAISTLINE JOINER LOCKSTITCH POCT GLUCOSE DEVICE Routine 11/28/2024 7 :20 AM WAISTLINE JOINER LOCKSTITCH POCT GLUCOSE DEVICE Routine 11/28/2024 2 :02 AM WAISTLINE JOINER LOCKSTITCH POCT GLUCOSE DEVICE Routine 11/27/2024 10:58 PM WAISTLINE JOINER LOCKSTITCH EGFR Routine 11/27/2024 9:47 PM WAISTLINE JOINER LOCKSTITCH DIFFERENTIAL AUTO Routine 11/27/2024 9:4 7 PM WAISTLINE JOINER LOCKSTITCH PROTIME-INR Routine 11/27/2024 9:47 PM WAISTLINE JOINER LOCKSTITCH CBC WITH AUTO DIFFERENTIAL Routine 11/27/2024 9:47 PM WAISTLINE JOINER LOCKSTITCH BASIC METABOLIC PANEL Routine 11/27/2024 9:47 PM WAISTLINE JOINER LOCKSTITCH POCT GLUCOSE DEVICE Routine 11/27/2024 8 :31 PM WAISTLINE JOINER LOCKSTITCH POCT GLUCOSE DEVICE Routine 11/27/2024 4 :59 PM WAISTLINE JOINER LOCKSTITCH POCT GLUCOSE DEVICE Routine 11/27/2024 11:42 AM WAISTLINE JOINER LOCKSTITCH POCT GLUCOSE DEVICE Routine 11/27/2024 7 :21 AM WAISTLINE JOINER LOCKSTITCH POCT GLUCOSE DEVICE Routine 11/27/2024 4 :10 AM WAISTLINE JOINER LOCKSTITCH POCT GLUCOSE DEVICE Routine 11/26/2024 11:38 PM WAISTLINE JOINER LOCKSTITCH EGFR Routine 11/26/2024 9:00 PM WAISTLINE JOINER LOCKSTITCH DIFFERENTIAL AUTO Routine 11/26/2024 9:0 0 PM WAISTLINE JOINER LOCKSTITCH PROTIME-INR Routine 11/26/2024 9:00 PM WAISTLINE JOINER LOCKSTITCH CBC WITH AUTO DIFFERENTIAL Routine 11/26/2024 9:00 PM WAISTLINE JOINER LOCKSTITCH BASIC METABOLIC PANEL Routine 11/26/2024 9:00 PM WAISTLINE JOINER LOCKSTITCH POCT GLUCOSE DEVICE Routine 11/26/2024 8 :11 PM WAISTLINE JOINER LOCKSTITCH POCT GLUCOSE DEVICE Routine 11/26/2024 4 :58 PM WAISTLINE JOINER LOCKSTITCH POCT GLUCOSE DEVICE Routine 11/26/2024 11:50 AM WAISTLINE JOINER LOCKSTITCH POCT GLUCOSE DEVICE Routine 11/26/2024 9 :56 AM WAISTLINE JOINER LOCKSTITCH POCT GLUCOSE DEVICE Routine 11/26/2024 8 :08 AM WAISTLINE JOINER LOCKSTITCH POCT GLUCOSE DEVICE Routine 11/26/2024 4 :08 AM WAISTLINE JOINER LOCKSTITCH POCT GLUCOSE DEVICE Routine 11/26/2024 12:28 AM WAISTLINE JOINER LOCKSTITCH URINALYSIS, MICROSCOPIC ONLY Routine 11/26/2024 12:16 AM WAISTLINE JOINER LOCKSTITCH URINALYSIS AND REFLEX TO MICROSCOPIC AND CULTURE Routine 11/26/2024 12:16 AM WAISTLINE JOINER LOCKSTITCH EGFR Routine 11/26/2024 12:10 AM WAISTLINE JOINER LOCKSTITCH DIFFERENTIAL AUTO Routine 11/26/2024 12:10 AM WAISTLINE JOINER LOCKSTITCH PROTIME-INR Routine 11/26/2024 12:10 AM WAISTLINE JOINER LOCKSTITCH CBC WITH AUTO DIFFERENTIAL Routine 11/26/2024 12:10 AM WAISTLINE JOINER LOCKSTITCH BASIC METABOLIC PANEL Routine 11/26/2024 12:10 AM WAISTLINE JOINER LOCKSTITCH POCT GLUCOSE DEVICE Routine 11/25/2024 10:40 PM WAISTLINE JOINER LOCKSTITCH POCT GLUCOSE DEVICE Routine 11/25/2024 9 :37 PM WAISTLINE JOINER LOCKSTITCH POCT GLUCOSE DEVICE Routine 11/25/2024 8 :11 PM WAISTLINE JOINER LOCKSTITCH POCT GLUCOSE DEVICE Routine 11/25/2024 5 :09 PM WAISTLINE JOINER LOCKSTITCH POCT GLUCOSE DEVICE Routine 11/25/2024 2 :32 PM WAISTLINE JOINER LOCKSTITCH POCT GLUCOSE DEVICE Routine 11/25/2024 11:40 AM WAISTLINE JOINER LOCKSTITCH XR CHEST 1 VIEW ED Urgent/IP Urgent 11/25/2024 9:35 AM WAISTLINE JOINER LOCKSTITCH POCT GLUCOSE DEVICE Routine 11/25/2024 7 :51 AM WAISTLINE JOINER LOCKSTITCH EGFR Routine 11/24/2024 10:08 PM WAISTLINE JOINER LOCKSTITCH DIFFERENTIAL AUTO Routine 11/24/2024 10:08 PM WAISTLINE JOINER LOCKSTITCH PROTIME-INR Routine 11/24/2024 10:08 PM WAISTLINE JOINER LOCKSTITCH CBC WITH AUTO DIFFERENTIAL Routine 11/24/2024 10:08 PM WAISTLINE JOINER LOCKSTITCH BASIC METABOLIC PANEL Routine 11/24/2024 10:08 PM WAISTLINE JOINER LOCKSTITCH POCT GLUCOSE DEVICE Routine 11/24/2024 7 :52 PM WAISTLINE JOINER LOCKSTITCH POCT GLUCOSE DEVICE Routine 11/24/2024 5 :06 PM WAISTLINE JOINER LOCKSTITCH POCT GLUCOSE DEVICE Routine 11/24/2024 4 :01 PM WAISTLINE JOINER LOCKSTITCH POCT GLUCOSE DEVICE Routine 11/24/2024 3 :01 PM WAISTLINE JOINER LOCKSTITCH POCT GLUCOSE DEVICE Routine 11/24/2024 1 :57 PM WAISTLINE JOINER LOCKSTITCH POCT GLUCOSE DEVICE Routine 11/24/2024 12:16 PM WAISTLINE JOINER LOCKSTITCH POCT GLUCOSE DEVICE Routine 11/24/2024 7 :25 AM WAISTLINE JOINER LOCKSTITCH EGFR Routine 11/23/2024 10:31 PM WAISTLINE JOINER LOCKSTITCH DIFFERENTIAL AUTO Routine 11/23/2024 10:31 PM WAISTLINE JOINER LOCKSTITCH PROTIME-INR Routine 11/23/2024 10:31 PM WAISTLINE JOINER LOCKSTITCH CBC WITH AUTO DIFFERENTIAL Routine 11/23/2024 10:31 PM WAISTLINE JOINER LOCKSTITCH BASIC METABOLIC PANEL Routine 11/23/2024 10:31 PM WAISTLINE JOINER LOCKSTITCH POCT GLUCOSE DEVICE Routine 11/23/2024 10:13 PM WAISTLINE JOINER LOCKSTITCH POCT GLUCOSE DEVICE Routine 11/23/2024 8 :11 PM WAISTLINE JOINER LOCKSTITCH POCT GLUCOSE DEVICE Routine 11/23/2024 6 :23 PM WAISTLINE JOINER LOCKSTITCH POCT GLUCOSE DEVICE Routine 11/23/2024 4 :35 PM WAISTLINE JOINER LOCKSTITCH POCT GLUCOSE DEVICE Routine 11/23/2024 4 :34 PM WAISTLINE JOINER LOCKSTITCH POCT GLUCOSE DEVICE Routine 11/23/2024 12:28 PM WAISTLINE JOINER LOCKSTITCH POCT GLUCOSE DEVICE Routine 11/23/2024 8 :07 AM WAISTLINE JOINER LOCKSTITCH POCT GLUCOSE DEVICE Routine 11/22/2024 8 :03 PM WAISTLINE JOINER LOCKSTITCH DIFFERENTIAL AUTO Routine 11/22/2024 7:0 5 PM WAISTLINE JOINER LOCKSTITCH CBC WITH AUTO DIFFERENTIAL Routine 11/22/2024 7:05 PM WAISTLINE JOINER LOCKSTITCH BASIC METABOLIC PANEL Timed 11/22/2024 7:04 PM WAISTLINE JOINER LOCKSTITCH EGFR Timed 11/22/2024 7:04 PM WAISTLINE JOINER LOCKSTITCH APTT Routine 11/22/2024 7:04 PM WAISTLINE JOINER LOCKSTITCH TROPONIN I HIGH-SENSITIVITY Timed 11/22/2024 7:04 PM WAISTLINE JOINER LOCKSTITCH PHOSPHORUS Timed 11/22/2024 7:04 PM WAISTLINE JOINER LOCKSTITCH MAGNESIUM Timed 11/22/2024 7:04 PM WAISTLINE JOINER LOCKSTITCH PROTIME-INR Routine 11/22/2024 7:04 PM WAISTLINE JOINER LOCKSTITCH POCT GLUCOSE DEVICE Routine 11/22/2024 6 :56 PM WAISTLINE JOINER LOCKSTITCH POCT GLUCOSE DEVICE Routine 11/22/2024 5 :27 PM WAISTLINE JOINER LOCKSTITCH XR CHEST 1 VIEW ED Urgent/IP Urgent 11/22/2024 3:32 PM WAISTLINE JOINER LOCKSTITCH POCT GLUCOSE DEVICE Routine 11/22/2024 2 :42 PM WAISTLINE JOINER LOCKSTITCH POCT GLUCOSE DEVICE Routine 11/22/2024 11:57 AM WAISTLINE JOINER LOCKSTITCH POCT GLUCOSE DEVICE Routine 11/22/2024 8 :10 AM WAISTLINE JOINER LOCKSTITCH APTT STAT 11/22/2024 12:22 AM WAISTLINE JOINER LOCKSTITCH CRITICAL RESULT CALLBACK HEMATOLOGY STAT 2024 10:06 PM WAISTLINE JOINER LOCKSTITCH EGFR Routine 2024 10:06 PM WAISTLINE JOINER LOCKSTITCH DIFFERENTIAL AUTO Routine 2024 10:06 PM WAISTLINE JOINER LOCKSTITCH APTT STAT 2024 10:06 PM WAISTLINE JOINER LOCKSTITCH PROTIME-INR Routine 2024 10:06 PM WAISTLINE JOINER LOCKSTITCH CBC WITH AUTO DIFFERENTIAL Routine 2024 10:06 PM WAISTLINE JOINER LOCKSTITCH BASIC METABOLIC PANEL Routine 2024 10:06 PM WAISTLINE JOINER LOCKSTITCH POCT GLUCOSE DEVICE Routine 2024 7 :21 PM WAISTLINE JOINER LOCKSTITCH POCT GLUCOSE DEVICE Routine 2024 4 :43 PM WAISTLINE JOINER LOCKSTITCH POCT GLUCOSE DEVICE Routine 2024 12:22 PM WAISTLINE JOINER LOCKSTITCH POCT GLUCOSE DEVICE Routine 2024 8 :06 AM WAISTLINE JOINER LOCKSTITCH POCT GLUCOSE DEVICE Routine 2024 3 :35 AM WAISTLINE JOINER LOCKSTITCH POCT GLUCOSE DEVICE Routine 2024 12:12 AM WAISTLINE JOINER LOCKSTITCH EGFR Routine 11/20/2024 10:13 PM WAISTLINE JOINER LOCKSTITCH DIFFERENTIAL AUTO Routine 11/20/2024 10:13 PM WAISTLINE JOINER LOCKSTITCH APTT STAT 11/20/2024 10:13 PM WAISTLINE JOINER LOCKSTITCH PROTIME-INR Routine 11/20/2024 10:13 PM WAISTLINE JOINER LOCKSTITCH CBC WITH AUTO DIFFERENTIAL Routine 11/20/2024 10:13 PM WAISTLINE JOINER LOCKSTITCH BASIC METABOLIC PANEL Routine 11/20/2024 10:13 PM WAISTLINE JOINER LOCKSTITCH TROPONIN I HIGH-SENSITIVITY 6-HOUR Timed 11/20/2024 10:13 PM WAISTLINE JOINER LOCKSTITCH POCT GLUCOSE DEVICE Routine 11/20/2024 8 :01 PM WAISTLINE JOINER LOCKSTITCH POCT GLUCOSE DEVICE Routine 11/20/2024 4 :36 PM WAISTLINE JOINER LOCKSTITCH APTT STAT 11/20/2024 2:58 PM WAISTLINE JOINER LOCKSTITCH POCT GLUCOSE DEVICE Routine 11/20/2024 11:17 AM WAISTLINE JOINER LOCKSTITCH PROTIME-INR STAT 11/20/2024 8:28 AM WAISTLINE JOINER LOCKSTITCH APTT STAT 11/20/2024 8:28 AM WAISTLINE JOINER LOCKSTITCH POCT GLUCOSE DEVICE Routine 11/20/2024 7 :44 AM WAISTLINE JOINER LOCKSTITCH CBC WITHOUT DIFFERENTIAL Timed 11/20/2024 2:16 AM WAISTLINE JOINER LOCKSTITCH TROPONIN I HIGH-SENSITIVITY 4-HOUR Timed 11/20/2024 2:16 AM WAISTLINE JOINER LOCKSTITCH CRITICAL RESULT CALLBACK CARDIO CHEM Timed 11/20/2024 12:24 AM WAISTLINE JOINER LOCKSTITCH EGFR Routine 11/20/2024 12:24 AM WAISTLINE JOINER LOCKSTITCH TROPONIN I HIGH-SENSITIVITY 2-HOUR Timed 11/20/2024 12:24 AM WAISTLINE JOINER LOCKSTITCH APTT STAT 11/20/2024 12:24 AM WAISTLINE JOINER LOCKSTITCH BASIC METABOLIC PANEL Routine 11/20/2024 12:24 AM WAISTLINE JOINER LOCKSTITCH POCT GLUCOSE DEVICE Routine 11/19/2024 11:01 PM WAISTLINE JOINER LOCKSTITCH TROPONIN I HIGH-SENSITIVITY SERIES (BASELINE, 2HR, 4HR, 6HR) Timed 11/19/2024 10:15 PM WAISTLINE JOINER LOCKSTITCH ECG 12-LEAD Routine 11/19/2024 10:11 PM WAISTLINE JOINER LOCKSTITCH POCT GLUCOSE DEVICE Routine 11/19/2024 7 :20 PM WAISTLINE JOINER LOCKSTITCH POCT GLUCOSE DEVICE Routine 11/19/2024 4 :39 PM WAISTLINE JOINER LOCKSTITCH APTT STAT 11/19/2024 3:39 PM WAISTLINE JOINER LOCKSTITCH POCT GLUCOSE DEVICE Routine 11/19/2024 12:05 PM WAISTLINE JOINER LOCKSTITCH POCT GLUCOSE DEVICE Routine 11/19/2024 12:03 PM WAISTLINE JOINER LOCKSTITCH HEMOGLOBIN A1C Routine 11/19/2024 8:52 AM WAISTLINE JOINER LOCKSTITCH EGFR Routine 11/19/2024 8:52 AM WAISTLINE JOINER LOCKSTITCH DIFFERENTIAL AUTO Routine 11/19/2024 8:5 2 AM WAISTLINE JOINER LOCKSTITCH APTT STAT 11/19/2024 8:52 AM WAISTLINE JOINER LOCKSTITCH PROTIME-INR STAT 11/19/2024 8:52 AM WAISTLINE JOINER LOCKSTITCH CBC WITH AUTO DIFFERENTIAL Routine 11/19/2024 8:52 AM WAISTLINE JOINER LOCKSTITCH BASIC METABOLIC PANEL Routine 11/19/2024 8:52 AM WAISTLINE JOINER LOCKSTITCH POCT GLUCOSE DEVICE Routine 11/19/2024 7 :46 AM WAISTLINE JOINER LOCKSTITCH EGFR Routine 11/19/2024 4:37 AM WAISTLINE JOINER LOCKSTITCH CBC WITHOUT DIFFERENTIAL Timed 11/19/2024 4:37 AM WAISTLINE JOINER LOCKSTITCH BASIC METABOLIC PANEL Routine 11/19/2024 4:37 AM WAISTLINE JOINER LOCKSTITCH POCT GLUCOSE DEVICE Routine 11/19/2024 2 :58 AM WAISTLINE JOINER LOCKSTITCH POCT GLUCOSE DEVICE Routine 11/18/2024 10:55 PM WAISTLINE JOINER LOCKSTITCH POCT GLUCOSE DEVICE Routine 11/18/2024 7 :25 PM WAISTLINE JOINER LOCKSTITCH DIFFERENTIAL AUTO Routine 11/18/2024 5:5 3 PM WAISTLINE JOINER LOCKSTITCH CBC WITH AUTO DIFFERENTIAL Routine 11/18/2024 5:53 PM WAISTLINE JOINER LOCKSTITCH POCT GLUCOSE DEVICE Routine 11/18/2024 4 :41 PM WAISTLINE JOINER LOCKSTITCH POCT GLUCOSE DEVICE Routine 11/18/2024 2 :03 PM WAISTLINE JOINER LOCKSTITCH POCT GLUCOSE DEVICE Routine 11/18/2024 1 :15 PM WAISTLINE JOINER LOCKSTITCH TRANSFUSE RED BLOOD CELLS Timed 11/18/2024 12:39 PM WAISTLINE JOINER LOCKSTITCH POCT GLUCOSE DEVICE Routine 11/18/2024 12:02 PM WAISTLINE JOINER LOCKSTITCH POCT GLUCOSE DEVICE Routine 11/18/2024 11:13 AM WAISTLINE JOINER LOCKSTITCH TYPE AND SCREEN Timed 11/18/2024 10:26 AM WAISTLINE JOINER LOCKSTITCH POCT GLUCOSE DEVICE Routine 11/18/2024 10:13 AM WAISTLINE JOINER LOCKSTITCH PREPARE RBC Timed 11/18/2024 9:58 AM WAISTLINE JOINER LOCKSTITCH POC BLOOD GAS AND CHEMISTRIES, ARTERIAL Routine 11/18/2024 9:39 AM WAISTLINE JOINER LOCKSTITCH OK AN PROCEDURE PLACEHOLDER Routine 11/18/2024 9:01 AM WAISTLINE JOINER LOCKSTITCH OK AN PROCEDURE PLACEHOLDER Routine 11/18/2024 9:01 AM WAISTLINE JOINER LOCKSTITCH OK AN PROCEDURE PLACEHOLDER Routine 11/18/2024 9:00 AM WAISTLINE JOINER LOCKSTITCH OK AN ELECTIVE ENDOTRACHEAL AIRWAY Routine 11/18/2024 9:00 AM WAISTLINE JOINER LOCKSTITCH POCT GLUCOSE DEVICE Routine 11/18/2024 8 :48 AM WAISTLINE JOINER LOCKSTITCH EXPLORATION - CAROTID 11/18/2024 7:40 AM WAISTLINE JOINER LOCKSTITCH 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) POCT GLUCOSE DEVICE Routine 11/18/2024 6 :37 AM WAISTLINE JOINER LOCKSTITCH POCT GLUCOSE DEVICE Routine 11/17/2024 11:48 AM WAISTLINE JOINER LOCKSTITCH POCT GLUCOSE DEVICE Routine 11/17/2024 7 :55 AM WAISTLINE JOINER LOCKSTITCH EGFR Routine 11/17/2024 2:31 AM WAISTLINE JOINER LOCKSTITCH BASIC METABOLIC PANEL Routine 11/17/2024 2:31 AM WAISTLINE JOINER LOCKSTITCH POCT GLUCOSE DEVICE Routine 11/17/2024 1 :38 AM WAISTLINE JOINER LOCKSTITCH POCT GLUCOSE DEVICE Routine 11/16/2024 8 :33 PM WAISTLINE JOINER LOCKSTITCH POCT GLUCOSE DEVICE Routine 11/16/2024 4 :29 PM WAISTLINE JOINER LOCKSTITCH COVID-19 CORONAVIRUS RNA Routine 11/16/2024 12:37 PM WAISTLINE JOINER LOCKSTITCH POCT GLUCOSE DEVICE Routine 11/16/2024 11:37 AM WAISTLINE JOINER LOCKSTITCH POCT GLUCOSE DEVICE Routine 11/16/2024 8 :06 AM WAISTLINE JOINER LOCKSTITCH POCT GLUCOSE DEVICE Routine 11/16/2024 1 :44 AM WAISTLINE JOINER LOCKSTITCH POCT GLUCOSE DEVICE Routine 11/15/2024 8 :17 PM WAISTLINE JOINER LOCKSTITCH POCT GLUCOSE DEVICE Routine 11/15/2024 5 :06 PM WAISTLINE JOINER LOCKSTITCH POCT GLUCOSE DEVICE Routine 11/15/2024 11:45 AM WAISTLINE JOINER LOCKSTITCH POCT GLUCOSE DEVICE Routine 11/15/2024 8 :08 AM WAISTLINE JOINER LOCKSTITCH POTASSIUM LEVEL Timed 11/15/2024 5:04 AM WAISTLINE JOINER LOCKSTITCH MAGNESIUM Timed 11/15/2024 5:04 AM WAISTLINE JOINER LOCKSTITCH POCT GLUCOSE DEVICE Routine 11/15/2024 4 :01 AM WAISTLINE JOINER LOCKSTITCH POCT GLUCOSE DEVICE Routine 11/15/2024 1 :51 AM WAISTLINE JOINER LOCKSTITCH POCT GLUCOSE DEVICE Routine 11/14/2024 8 :08 PM WAISTLINE JOINER LOCKSTITCH POCT GLUCOSE DEVICE Routine 11/14/2024 4 :53 PM WAISTLINE JOINER LOCKSTITCH POCT GLUCOSE DEVICE Routine 11/14/2024 12:17 PM WAISTLINE JOINER LOCKSTITCH POCT GLUCOSE DEVICE Routine 11/14/2024 7 :56 AM WAISTLINE JOINER LOCKSTITCH POCT GLUCOSE DEVICE Routine 11/14/2024 2 :49 AM WAISTLINE JOINER LOCKSTITCH POCT GLUCOSE DEVICE Routine 11/13/2024 8 :19 PM WAISTLINE JOINER LOCKSTITCH POCT GLUCOSE DEVICE Routine 11/13/2024 4 :52 PM WAISTLINE JOINER LOCKSTITCH POCT GLUCOSE DEVICE Routine 11/13/2024 11:52 AM WAISTLINE JOINER LOCKSTITCH POCT GLUCOSE DEVICE Routine 11/13/2024 7 :55 AM WAISTLINE JOINER LOCKSTITCH POCT GLUCOSE DEVICE Routine 11/13/2024 1 :40 AM WAISTLINE JOINER LOCKSTITCH POCT GLUCOSE DEVICE Routine 11/12/2024 8 :24 PM WAISTLINE JOINER LOCKSTITCH POCT GLUCOSE DEVICE Routine 11/12/2024 5 :12 PM WAISTLINE JOINER LOCKSTITCH POCT GLUCOSE DEVICE Routine 11/12/2024 11:59 AM WAISTLINE JOINER LOCKSTITCH POCT GLUCOSE DEVICE Routine 11/12/2024 8 :30 AM WAISTLINE JOINER LOCKSTITCH EGFR Routine 11/12/2024 3:07 AM WAISTLINE JOINER LOCKSTITCH DIFFERENTIAL AUTO Routine 11/12/2024 3:0 7 AM WAISTLINE JOINER LOCK[employer]ITCH MAGNESIUM Routine 11/12/2024 3:07 AM WAISTLINE JOINER LOCKSTITCH COMPREHENSIVE METABOLIC PANEL Routine 11/12/2024 3:07 AM WAISTLINE JOINER LOCKSTITCH CBC WITH AUTO DIFFERENTIAL Routine 11/12/2024 3:07 AM WAISTLINE JOINER LOCKSTITCH POCT GLUCOSE DEVICE Routine 11/12/2024 2 :49 AM WAISTLINE JOINER LOCKSTITCH POCT GLUCOSE DEVICE Routine 11/11/2024 8 :20 PM WAISTLINE JOINER LOCKSTITCH POCT GLUCOSE DEVICE Routine 11/11/2024 5 :18 PM WAISTLINE JOINER LOCKSTITCH POCT GLUCOSE DEVICE Routine 11/11/2024 2 :40 PM WAISTLINE JOINER LOCKSTITCH POCT GLUCOSE DEVICE Routine 11/11/2024 11:44 AM WAISTLINE JOINER LOCKSTITCH POCT GLUCOSE DEVICE Routine 11/11/2024 8 :18 AM WAISTLINE JOINER LOCKSTITCH POCT GLUCOSE DEVICE Routine 11/11/2024 3 :46 AM WAISTLINE JOINER LOCKSTITCH EGFR Routine 11/11/2024 2:16 AM WAISTLINE JOINER LOCKSTITCH DIFFERENTIAL AUTO Routine 11/11/2024 2:1 6 AM WAISTLINE JOINER LOCKSTITCH MAGNESIUM Routine 11/11/2024 2:16 AM WAISTLINE JOINER LOCKSTITCH COMPREHENSIVE METABOLIC PANEL Routine 11/11/2024 2:16 AM WAISTLINE JOINER LOCKSTITCH CBC WITH AUTO DIFFERENTIAL Routine 11/11/2024 2:16 AM WAISTLINE JOINER LOCKSTITCH POCT GLUCOSE DEVICE Routine 11/11/2024 1 :41 AM WAISTLINE JOINER LOCKSTITCH POCT GLUCOSE DEVICE Routine 11/10/2024 8 :50 PM WAISTLINE JOINER LOCKSTITCH POCT GLUCOSE DEVICE Routine 11/10/2024 4 :52 PM WAISTLINE JOINER LOCKSTITCH POCT GLUCOSE DEVICE Routine 11/10/2024 11:57 AM WAISTLINE JOINER LOCKSTITCH TRANSTHORACIC ECHO (TTE) LIMITED/FOLLOW UP WO DOPPLER/CF W CONTRAST STAT 11/10/2024 9:50 AM WAISTLINE JOINER LOCKSTITCH POCT GLUCOSE DEVICE Routine 11/10/2024 8 :00 AM WAISTLINE JOINER LOCKSTITCH EGFR Routine 11/10/2024 2:27 AM WAISTLINE JOINER LOCKSTITCH DIFFERENTIAL AUTO Routine 11/10/2024 2:2 7 AM WAISTLINE JOINER LOCKSTITCH PRO B-TYPE NATRIURETIC PEPTIDE Routine 11/10/2024 2:27 AM WAISTLINE JOINER LOCKSTITCH MAGNESIUM Routine 11/10/2024 2:27 AM WAISTLINE JOINER LOCKSTITCH COMPREHENSIVE METABOLIC PANEL Routine 11/10/2024 2:27 AM WAISTLINE JOINER LOCKSTITCH CBC WITH AUTO DIFFERENTIAL Routine 11/10/2024 2:27 AM WAISTLINE JOINER LOCKSTITCH POCT GLUCOSE DEVICE Routine 11/10/2024 1 :48 AM WAISTLINE JOINER LOCKSTITCH POCT GLUCOSE DEVICE Routine 11/09/2024 8 :39 PM WAISTLINE JOINER LOCKSTITCH POCT GLUCOSE DEVICE Routine 11/09/2024 5 :23 PM WAISTLINE JOINER LOCKSTITCH POCT GLUCOSE DEVICE Routine 11/09/2024 11:06 AM WAISTLINE JOINER LOCKSTITCH XR CHEST 1 VIEW ED Urgent/IP Urgent 11/09/2024 10:32 AM WAISTLINE JOINER LOCKSTITCH POCT GLUCOSE DEVICE Routine 11/09/2024 7 :16 AM WAISTLINE JOINER LOCKSTITCH POCT GLUCOSE DEVICE Routine 11/09/2024 2 :08 AM WAISTLINE JOINER LOCKSTITCH EGFR Routine 11/09/2024 2:08 AM WAISTLINE JOINER LOCKSTITCH DIFFERENTIAL AUTO Routine 11/09/2024 2:0 8 AM WAISTLINE JOINER LOCKSTITCH MAGNESIUM Routine 11/09/2024 2:08 AM WAISTLINE JOINER LOCKSTITCH COMPREHENSIVE METABOLIC PANEL Routine 11/09/2024 2:08 AM WAISTLINE JOINER LOCKSTITCH CBC WITH AUTO DIFFERENTIAL Routine 11/09/2024 2:08 AM WAISTLINE JOINER LOCKSTITCH POCT GLUCOSE DEVICE Routine 11/08/2024 8 :36 PM WAISTLINE JOINER LOCKSTITCH POCT GLUCOSE DEVICE Routine 11/08/2024 4 :57 PM WAISTLINE JOINER LOCKSTITCH TROPONIN T HIGH-SENSITIVITY Timed 11/08/2024 2:31 PM WAISTLINE JOINER LOCKSTITCH POCT GLUCOSE DEVICE Routine 11/08/2024 12:04 PM WAISTLINE JOINER LOCKSTITCH POCT GLUCOSE DEVICE Routine 11/08/2024 8 :00 AM WAISTLINE JOINER LOCKSTITCH TROPONIN T HIGH-SENSITIVITY Timed 11/08/2024 7:44 AM WAISTLINE JOINER LOCKSTITCH EGFR Routine 11/08/2024 2:30 AM WAISTLINE JOINER LOCKSTITCH DIFFERENTIAL AUTO Routine 11/08/2024 2:3 0 AM WAISTLINE JOINER LOCKSTITCH APTT STAT 11/08/2024 2:30 AM WAISTLINE JOINER LOCKSTITCH CBC WITHOUT DIFFERENTIAL STAT 11/08/2024 2:30 AM WAISTLINE JOINER LOCKSTITCH PROTIME-INR STAT 11/08/2024 2:30 AM WAISTLINE JOINER LOCKSTITCH LIPID PANEL Routine 11/08/2024 2:30 AM WAISTLINE JOINER LOCKSTITCH MAGNESIUM Routine 11/08/2024 2:30 AM WAISTLINE JOINER LOCKSTITCH COMPREHENSIVE METABOLIC PANEL Routine 11/08/2024 2:30 AM WAISTLINE JOINER LOCKSTITCH CBC WITH AUTO DIFFERENTIAL Routine 11/08/2024 2:30 AM WAISTLINE JOINER LOCKSTITCH PRO B-TYPE NATRIURETIC PEPTIDE Routine 11/08/2024 2:30 AM WAISTLINE JOINER LOCKSTITCH TROPONIN T HIGH-SENSITIVITY Timed 11/08/2024 2:30 AM WAISTLINE JOINER LOCKSTITCH PROTIME-INR Routine 11/08/2024 2:24 AM WAISTLINE JOINER LOCKSTITCH POCT GLUCOSE DEVICE Routine 11/08/2024 1 :48 AM WAISTLINE JOINER LOCKSTITCH SCAN - LABS 11/07/2024 XR TRANSFER OF OUTSIDE FILMS Routine 11/07/2024 12:00 AM WAISTLINE JOINER LOCKSTITCH SCAN - RADIOLOGY/IMAGING 11/07/2024 SCAN - LABS 11/04/2024 PROTIME-INR Routine 11/04/2024 MRI ABDOMEN LIVER W WO CONTRAST Schedule Routine, Read Routine (OP Routine) 10/27/2024 12:54 PM WAISTLINE JOINER LOCKSTITCH Neuroendocrine cancer (HCC) Secondary neuroendocrine tumors (HCC) XR CHEST PA LATERAL 2 VIEWS Schedule Routine, Read Routine (OP Routine) 10/27/2024 9:14 AM WAISTLINE JOINER LOCKSTITCH Encounter for imaging to screen for metal prior to magnetic resonance imaging (MRI) PROTIME-INR Routine 10/27/2024 US CAROTIDS DUPLEX BILATERAL Schedule Routine, Read Routine (OP Routine) 10/25/2024 2:57 PM WAISTLINE JOINER LOCKSTITCH Encounter for other preprocedural examination SCAN - LABS 10/22/2024 DEVICE CHECK - REMOTE Routine 10/19/2024 10:10 AM WAISTLINE JOINER LOCKSTITCH ICD (implantable cardioverter-defibri llator) in place Dilated [...] CREATININE RATIO, URINE Routine 10/11/2022 10:25 AM WAISTLINE JOINER LOCKSTITCH Type 2 diabetes mellitus with hyperlipidemia (HCC) Essential hypertension COLONOSCOPY 02/05/2022 1:10 PM CDT from Last 3 Months or Most Recently Relevant to Health Maintenance Results * POCT glucose (12/09/2024 3:12 PM WAISTLINE JOINER LOCKSTITCH) Glucose, POC 128 70 - 199 mg/dL Blood 12/09/2024 3:12 PM WAISTLINE JOINER LOCKSTITCH 12/09/2024 3:12 PM WAISTLINE JOINER LOCKSTITCH Jaylene Huang MD LAB POCT ORDERABLES - DEVICE Final Result Performing Organization Address City/[facility]/ZIP Co de Phone Number [facility] ([place]) 1 [facility] [place] [address] * (ABNORMAL) POCT glucose (12/09/2024 11:37 AM WAISTLINE JOINER LOCKSTITCH) Glucose, POC 404(H) 70 - 199 mg/dL Blood 12/09/2024 11:3 7 AM WAISTLINE JOINER LOCKSTITCH 12/09/2024 11:37 AM WAISTLINE JOINER LOCKSTITCH Jaylene Huang MD LAB POCT ORDERABLES - DEVICE Final Result Performing Organization Address [facility] Co de Phone Number [facility] ([place]) 1 [facility] [place] [place] [address] * POCT glucose (12/09/2024 7:55 AM WAISTLINE JOINER LOCKSTITCH) Glucose, POC 184 70 - 199 mg/dL Blood 12/09/2024 7:55 AM WAISTLINE JOINER LOCKSTITCH 12/09/2024 7:55 AM WAISTLINE JOINER LOCKSTITCH Jaylene Huang MD LAB POCT ORDERABLES - DEVICE Final Result Performing Organization Address City/[facility] Co de Phone Number [facility] ([place]) 1 [facility] [place] [address] * (ABNORMAL) POCT glucose (12/09/2024 4:54 AM WAISTLINE JOINER LOCKSTITCH) Glucose, POC 246(H) 70 - 199 mg/dL Blood 12/09/2024 4:54 AM WAISTLINE JOINER LOCKSTITCH 12/09/2024 4:54 AM WAISTLINE JOINER LOCKSTITCH Jaylene Huang MD LAB POCT ORDERABLES - DEVICE Final Result Performing Organization Address City/[facility]/ZIP Co de Phone Number [facility] ([place]) [address] [place] [address] * (ABNORMAL) Protime-INR (12/09/2024 3:07 AM WAISTLINE JOINER LOCKSTITCH) PT 27.3(H) 9.7 - 13.0 sec [facility] ([place]) INR 2.48(H) 0.90 - 1.20 [facility] ([place]) Comment: Interpretive data Oral anticoagulant therapeutic ranges: Venous thromboembolism prophylaxis or treatment: 2.0-3.0 CARDIOLOGY Standard range: 2.0-3.0 High-intensity range: 2.5-3.5 Refer to indication-specific guidelines for appropriate target ranges for prosthetic heart valve replacement. Current interpretive data was last revised on 2019. Blood 12/09/2024 3:07 AM WAISTLINE JOINER LOCKSTITCH 12/09/2024 3:23 AM WAISTLINE JOINER LOCKSTITCH us Sampson Davenport II, MD LAB BLOOD ORDERABLES F inal Result Performing Organization Address City/[facility] Co de Phone Number [facility] ([place]) 1 [facility] [place] [address] * (ABNORMAL) POCT glucose (12/09/2024 2:15 AM WAISTLINE JOINER LOCKSTITCH) Glucose, POC 415(H) 70 - 199 mg/dL Blood 12/09/2024 2:15 AM WAISTLINE JOINER LOCKSTITCH 12/09/2024 2:15 AM WAISTLINE JOINER LOCKSTITCH us Jaylene Huang MD LAB POCT ORDERABLES - DEVICE Final Result Performing Organization Address City/[facility]/ZIP Co de Phone Number [facility] ([place]) 1 [facility] [place] [address] * POCT glucose (12/08/2024 8:20 PM WAISTLINE JOINER LOCKSTITCH) Glucose, POC 96 70 - 199 mg/dL Blood 12/08/2024 8:20 PM WAISTLINE JOINER LOCKSTITCH 12/08/2024 8:20 PM WAISTLINE JOINER LOCKSTITCH us Jaylene Huang MD LAB POCT ORDERABLES - DEVICE Final Result Performing Organization Address City/[facility]/ZIP Co de Phone Number [facility] ([place]) 1 [facility] [place] [place] [address] * POCT glucose (12/08/2024 5:13 PM WAISTLINE JOINER LOCKSTITCH) Glucose, POC 110 70 - 199 mg/dL Blood 12/08/2024 5:13 PM WAISTLINE JOINER LOCKSTITCH 12/08/2024 5:13 PM WAISTLINE JOINER LOCKSTITCH Jaylene Huang MD LAB POCT ORDERABLES - DEVICE Final Result Performing Organization Address City/[facility]/ZIP Co de Phone Number [facility] ([place]) 1 [facility] [place] [address] * (ABNORMAL) POCT glucose (12/08/2024 12:23 PM WAISTLINE JOINER LOCKSTITCH) Glucose, POC 253(H) 70 - 199 mg/dL Blood 12/08/2024 12:2 3 PM WAISTLINE JOINER LOCKSTITCH 12/08/2024 12:23 PM WAISTLINE JOINER LOCKSTITCH Jaylene Huang MD LAB POCT ORDERABLES - DEVICE Final Result Performing Organization Address City/[facility]/ZIP Co de Phone Number [facility] ([place]) 1 [facility] [place] [place] [address] * (ABNORMAL) POCT glucose (12/08/2024 8:14 AM WAISTLINE JOINER LOCKSTITCH) Glucose, POC 213(H) 70 - 199 mg/dL Blood 12/08/2024 8:14 AM WAISTLINE JOINER LOCKSTITCH 12/08/2024 8:14 AM WAISTLINE JOINER LOCKSTITCH us Jaylene Huang MD LAB POCT ORDERABLES - DEVICE Final Result [facility] ([place]) 1 [facility] [place] [address] * Differential, auto (12/08/2024 5:29 AM WAISTLINE JOINER LOCKSTITCH) Neutrophil abs 5.3 1.5 - 6.5 K/cumm Imm gran abs 0.1 0.0 - 0.1 K/cumm [facility] ([place]) Lymphocyte abs 1.5 0.8 - 3.3 K/cumm [facility] ([place]) Monocyte abs 0.7 0.2 - 0.8 K/cumm [facility] ([place]) Eosinophil abs 0.0 0.0 - 0.5 K/cumm [facility] ([place]) Basophil abs 0.0 0.0 - 0.1 K/cumm [facility] ([place]) Neutrophil pct 70.0 % [facility] ([place]) Comment: Interpretive Data Percent cell count reference ranges are not reported, since discordance with absolute values may lead to misinterpretation of CBC data. Current Interpretive Data was last revised on 2018. Imm gran pct 1.7 % [facility] ([place]) Comment: Interpretive Data Percent cell count reference ranges are not reported, since discordance with absolute values may lead to misinterpretation of CBC data. Current Interpretive Data was last revised on 2018. Lymphocyte pct 19.5 % [facility] ([place]) Comment: Interpretive Data Percent cell count reference ranges are not reported, since discordance with absolute values may lead to misinterpretation of CBC data. Current Interpretive Data was last revised on 2018. Monocyte pct 8.6 % [facility] ([place]) Comment: Interpretive Data Percent cell count reference ranges are not reported, since discordance with absolute values may lead to misinterpretation of CBC data. Current Interpretive Data was last revised on 2018. Eosinophil pct 0.1 % [facility] ([place]) Comment: Interpretive Data Percent cell count reference [...] revised on 2018. Blood 12/08/2024 5:29 AM WAISTLINE JOINER LOCKSTITCH 12/08/2024 5:45 AM WAISTLINE JOINER LOCKSTITCH Haven Carmona MD LAB BLOOD ORDERABLES Fi nal Result [facility] ([place]) 1 [facility] [place] [address] * (ABNORMAL) CBC with auto differential (12/08/2024 5:29 AM WAISTLINE JOINER LOCKSTITCH) WBC 7.5 3.8 - 9.9 K/cumm Hgb 8.5(L) 11.9 - 15.5 g/dL [facility] ([place]) Hct 30.5(L) 35.6 - 45.5 % [facility] ([place]) Plt 356 150 - 400 K/cumm [facility] ([place]) MPV 10.2 9.1 - 12.3 fL [facility] ([place]) RBC 3.63(L) 3.90 - 5.20 M/cumm [facility] ([place]) MCV 84.0 81.3 - 96.4 fL [facility] ([place]) MCH 23.4(L) 27.1 - 33.3 pg [facility] ([place]) MCHC 27.9(L) 32.3 - 35.7 g/dL [facility] ([place]) RDW CV 22.2(H) 11.1 - 14.9 % [facility] ([place]) RDW SD 67.3(H) 35.7 - 48.1 fL [facility] ([place]) NRBC abs 0.07(H) 0.00 - 0.01 K/cumm [facility] ([place]) Blood 12/08/2024 5:29 AM WAISTLINE JOINER LOCKSTITCH 12/08/2024 5:45 AM WAISTLINE JOINER LOCKSTITCH us Ekanga Braulio Petters MD LAB BLOOD ORDERABLES Fi nal Result [facility] [place]) 1 [facility] [employer] [place] [address] * eGFR (12/08/2024 3:15 AM WAISTLINE JOINER LOCKSTITCH) eGFR >90 >=60 mL/min/1. 73 m2 Comment: [...] last reviewed 2021. Blood 12/08/2024 3:15 AM WAISTLINE JOINER LOCKSTITCH 12/08/2024 3:32 AM WAISTLINE JOINER LOCKSTITCH us Sanjeev Gonzales MD LAB BLOOD ORDERABLES Final Resu lt [facility] [place]) 1 [facility] [place] [employer] [place] [address] * Beta-hydroxybutyrate (12/08/2024 3:15 AM WAISTLINE JOINER LOCKSTITCH) Beta-Hydroxybut yrate 0.2 <=0.5 mmol/L Comment:Testing performed by : [facility], [address] [place] [address], [place]., [address] Blood 12/08/2024 3:15 AM WAISTLINE JOINER LOCKSTITCH 12/08/2024 10:39 AM WAISTLINE JOINER LOCKSTITCH us Jaylene Huang MD LAB BLOOD ORDERABLES Final Re sult Performing Organization Address [facility]/ZIP Co de Phone Number [facility] ([place]) 1 [facility] [place] [address] * (ABNORMAL) Protime-INR (12/08/2024 3:15 AM WAISTLINE JOINER LOCKSTITCH) Pathologist [facility] PT 25.2(H) 9.7 - 13.0 sec [facility] ([place]) INR 2.29(H) 0.90 - 1.20 [facility] ([place]) Comment: Interpretive data Oral anticoagulant therapeutic ranges: Venous thromboembolism prophylaxis or treatment: 2.0-3.0 CARDIOLOGY Standard range: 2.0-3.0 High-intensity range: 2.5-3.5 Refer to indication-specific guidelines for appropriate target ranges for prosthetic heart valve replacement. Current interpretive data was last revised on 2019. Blood 12/08/2024 3:15 AM WAISTLINE JOINER LOCKSTITCH 12/08/2024 3:32 AM WAISTLINE JOINER LOCKSTITCH us Sampson Davenport II, MD LAB BLOOD ORDERABLES F inal Result Performing Organization Address [facility] Co de Phone Number [facility] ([place]) 1 [facility] [place] [address] * Magnesium (12/08/2024 3:15 AM WAISTLINE JOINER LOCKSTITCH) Pathologist [facility] Magnesium 2.5 1.4 - 2.5 mg/dL Blood 12/08/2024 3:15 AM WAISTLINE JOINER LOCKSTITCH 12/08/2024 3:32 AM WAISTLINE JOINER LOCKSTITCH us Sanjeev Gonzales MD LAB BLOOD ORDERABLES Final Resu lt Performing Organization Address [facility]/ZIP Co de Phone Number [facility] ([place]) 1 [facility] [place] [address] * (ABNORMAL) Comprehensive metabolic panel (12/08/2024 3:15 AM WAISTLINE JOINER LOCKSTITCH) Sodium 143 135 - 145 mmol/L Potassium, [...] 5.0 g/dL [facility] ([place]) Alk phos 96 40 - 130 Units/L [facility] ([place]) ALT 35 7 - 45 Units/L [facility] ([place]) AST 21 10 - 45 Units/L [facility] ([place]) Comment:Slightly Hemolyzed S pecimen Blood 12/08/2024 3:15 AM WAISTLINE JOINER LOCKSTITCH 12/08/2024 3:32 AM WAISTLINE JOINER LOCKSTITCH us Sanjeev Gonzales MD LAB BLOOD ORDERABLES Final Resu lt [facility] ([place]) [address] [place] [address] * (ABNORMAL) POCT glucose (12/08/2024 2:05 AM WAISTLINE JOINER LOCKSTITCH) Glucose, POC 280(H) 70 - 199 mg/dL Blood 12/08/2024 2:05 AM WAISTLINE JOINER LOCKSTITCH 12/08/2024 2:05 AM WAISTLINE JOINER LOCKSTITCH Jaylene Huang MD LAB POCT ORDERABLES - DEVICE Final Result [facility] ([place]) 1 [facility] [place] [address] * POCT glucose (12/07/2024 8:57 PM WAISTLINE JOINER LOCKSTITCH) Glucose, POC 127 70 - 199 mg/dL Blood 12/07/2024 8:57 PM WAISTLINE JOINER LOCKSTITCH 12/07/2024 8:57 PM WAISTLINE JOINER LOCKSTITCH us Jaylene Huang MD LAB POCT ORDERABLES - DEVICE Final Result [facility] ([place]) 1 [facility] [place] [address] * (ABNORMAL) POCT glucose (12/07/2024 5:14 PM WAISTLINE JOINER LOCKSTITCH) Glucose, POC 214(H) 70 - 199 mg/dL Blood 12/07/2024 5:14 PM WAISTLINE JOINER LOCKSTITCH 12/07/2024 5:14 PM WAISTLINE JOINER LOCKSTITCH Jaylene Huang MD LAB POCT ORDERABLES - DEVICE Final Result [facility] ([place]) 1 [facility] [place] [address] * (ABNORMAL) POCT glucose (12/07/2024 11:54 AM WAISTLINE JOINER LOCKSTITCH) Glucose, POC 225(H) 70 - 199 mg/dL Blood 12/07/2024 11:5 4 AM WAISTLINE JOINER LOCKSTITCH 12/07/2024 11:54 AM WAISTLINE JOINER LOCKSTITCH Jaylene Huang MD LAB POCT ORDERABLES - DEVICE Final Result [facility] ([place]) 1 [facility] [place] [address] * (ABNORMAL) POCT glucose (12/07/2024 7:21 AM WAISTLINE JOINER LOCKSTITCH) Glucose, POC 275(H) 70 - 199 mg/dL Blood 12/07/2024 7:21 AM WAISTLINE JOINER LOCKSTITCH 12/07/2024 7:21 AM WAISTLINE JOINER LOCKSTITCH us Jaylene Huang MD LAB POCT ORDERABLES - DEVICE Final Result Performing Organization Address [facility] Co de Phone Number [facility] ([place]) 1 [facility] [place] [address] * (ABNORMAL) POCT glucose (12/07/2024 1:49 AM WAISTLINE JOINER LOCKSTITCH) [facility] Glucose, POC 227(H) 70 - 199 mg/dL Blood 12/07/2024 1:49 AM WAISTLINE JOINER LOCKSTITCH 12/07/2024 1:49 AM WAISTLINE JOINER LOCKSTITCH us Sampson Davenport II, MD LAB POCT ORDERABLES - DEVICE Final Result Performing Organization Address City/[facility] Co de Phone Number [facility] ([place]) 1 [facility] [place] [address] * eGFR (12/07/2024 12:27 AM WAISTLINE JOINER LOCKSTITCH) eGFR >90 >=60 mL/min/1. 73 m2 Comment: [...] reviewed 2021. Blood 12/07/2024 12:2 7 AM WAISTLINE JOINER LOCKSTITCH 12/07/2024 12:42 AM WAISTLINE JOINER LOCKSTITCH us Sanjeev Gonzales MD LAB BLOOD ORDERABLES Final Resu lt [facility] ([place]) 1 [facility] [place] [address] * (ABNORMAL) Differential, auto (12/07/2024 12:27 AM WAISTLINE JOINER LOCKSTITCH) Neutrophil abs 8.2(H) 1.5 - 6.5 K/cumm [...] on 2018. Blood 12/07/2024 12:2 7 AM WAISTLINE JOINER LOCKSTITCH 12/07/2024 12:42 AM WAISTLINE JOINER LOCKSTITCH us Sanjeev Gonzales MD LAB BLOOD ORDERABLES Final Resu lt [facility] ([place]) 1 [facility] Department [place] [address] * (ABNORMAL) CBC with auto differential (12/07/2024 12:27 AM WAISTLINE JOINER LOCKSTITCH) WBC 11.3(H) 3.8 - 9.9 K/cumm Hgb 10.2(L) 11.9 - 15.5 g/dL [facility] ([place]) Hct 38.0 35.6 - 45.5 % [facility] ([place]) Plt 380 150 - 400 K/cumm [facility] ([place]) MPV 10.5 9.1 - 12.3 fL [facility] ([place]) RBC 4.35 3.90 - 5.20 M/cumm [facility] ([place]) MCV 87.4 81.3 - 96.4 fL [facility] ([place]) MCH 23.4(L) 27.1 - 33.3 pg [facility] ([place]) MCHC 26.8(L) 32.3 - 35.7 g/dL [facility] ([place]) RDW CV 22.5(H) 11.1 - 14.9 % [facility] ([place]) RDW SD 70.7(H) 35.7 - 48.1 fL [facility] ([place]) NRBC abs 0.10(H) 0.00 - 0.01 K/cumm [facility] ([place]) Blood 12/07/2024 12:2 7 AM WAISTLINE JOINER LOCKSTITCH 12/07/2024 12:42 AM WAISTLINE JOINER LOCKSTITCH us Sanjeev Gonzales MD LAB BLOOD ORDERABLES Final Resu lt Performing Organization Address [facility] Co de Phone Number [facility] ([place]) 1 [facility] [place] [address] * (ABNORMAL) Protime-INR (12/07/2024 12:27 AM WAISTLINE JOINER LOCKSTITCH) PT 21.6(H) 9.7 - 13.0 sec [facility] ([place]) INR 1.97(H) 0.90 - 1.20 [facility] ([place]) Comment: Interpretive data Oral anticoagulant therapeutic ranges: Venous thromboembolism prophylaxis or treatment: 2.0-3.0 CARDIOLOGY Standard range: 2.0-3.0 High-intensity range: 2.5-3.5 Refer to indication-specific guidelines for appropriate target ranges for prosthetic heart valve replacement. Current interpretive data was last revised on 2019. Blood 12/07/2024 12:2 7 AM WAISTLINE JOINER LOCKSTITCH 12/07/2024 12:42 AM WAISTLINE JOINER LOCKSTITCH us Sampson Davenport II, MD LAB BLOOD ORDERABLES F inal Result Performing Organization Address City/[facility]/ZIP Co de Phone Number [facility] ([place]) 1 [facility] [place] [address] * Magnesium (12/07/2024 12:27 AM WAISTLINE JOINER LOCKSTITCH) Magnesium 2.4 1.4 - 2.5 mg/dL Blood 12/07/2024 12:2 7 AM WAISTLINE JOINER LOCKSTITCH 12/07/2024 12:42 AM WAISTLINE JOINER LOCKSTITCH us Sanjeev Gonzales MD LAB BLOOD ORDERABLES Final Resu lt [facility] ([place]) 1 [facility] Department [place] [address] * (ABNORMAL) Comprehensive metabolic panel (12/07/2024 12:27 AM WAISTLINE JOINER LOCKSTITCH) Sodium 143 135 - 145 mmol/L Potassium, pl 4.0 3.3 - 4.9 mmol/L [facility] ([place]) Chloride 98 97 - 110 mmol/L [facility] ([place]) CO2 30 22 - 32 mmol/L [facility] ([place]) Anion gap 15 2 - 15 mmol/L [facility] ([place]) BUN 18 6 - 25 mg/dL [facility] ([place]) Creatinine 0.40(L) 0.60 - 1.10 mg/dL [...] ([place]) AST 18 10 - 45 Units/L [facility] ([place]) Blood 12/07/2024 12:2 7 AM WAISTLINE JOINER LOCKSTITCH 12/07/2024 12:42 AM WAISTLINE JOINER LOCKSTITCH us Sanjeev Gonzales MD LAB BLOOD ORDERABLES Final Resu lt [facility] ([place]) 1 [facility] [place] [address] * (ABNORMAL) POCT glucose (12/06/2024 8:52 PM WAISTLINE JOINER LOCKSTITCH) Glucose, POC 219(H) 70 - 199 mg/dL Blood 12/06/2024 8:52 PM WAISTLINE JOINER LOCKSTITCH 12/06/2024 8:52 PM WAISTLINE JOINER LOCKSTITCH us Sampson Davenport II, MD LAB POCT ORDERABLES - DEVICE Final Result Performing Organization Address [facility] Co de Phone Number [facility] ([place]) 1 [facility] [place] [address] * POCT glucose (12/06/2024 5:29 PM WAISTLINE JOINER LOCKSTITCH) Glucose, POC 115 70 - 199 mg/dL Blood 12/06/2024 5:29 PM WAISTLINE JOINER LOCKSTITCH 12/06/2024 5:29 PM WAISTLINE JOINER LOCKSTITCH Sampson Davenport II, MD LAB POCT ORDERABLES - DEVICE Final Result Performing Organization Address [facility] Co de Phone Number [facility] ([place]) 1 [facility] [place] [employer] [address] * (ABNORMAL) POCT glucose (12/06/2024 11:50 AM WAISTLINE JOINER LOCKSTITCH) Glucose, POC 247(H) 70 - 199 mg/dL Blood 12/06/2024 11:5 0 AM WAISTLINE JOINER LOCKSTITCH 12/06/2024 11:50 AM WAISTLINE JOINER LOCKSTITCH Sampson Davenport II, MD LAB POCT ORDERABLES - DEVICE Final Result [facility] ([place]) 1 [facility] [place] [address] * (ABNORMAL) POCT glucose (12/06/2024 7:49 AM WAISTLINE JOINER LOCKSTITCH) Pathologist [facility] Glucose, POC 208(H) 70 - 199 mg/dL Blood 12/06/2024 7:49 AM WAISTLINE JOINER LOCKSTITCH 12/06/2024 7:49 AM WAISTLINE JOINER LOCKSTITCH Sampson Davenport II, MD LAB POCT ORDERABLES - DEVICE Final Result Performing Organization Address City/[facility] Co de Phone Number [facility] ([place]) [address] [place] [address] [place] [address] * eGFR (12/06/2024 6:08 AM WAISTLINE JOINER LOCKSTITCH) [facility] eGFR >90 >=60 mL/min/1. 73 m2 [...] last reviewed 2021. Blood 12/06/2024 6:08 AM WAISTLINE JOINER LOCKSTITCH 12/06/2024 6:20 AM WAISTLINE JOINER LOCKSTITCH us Sanjeev Gonzales MD LAB BLOOD ORDERABLES Final Resu lt [facility] ([place]) 1 [facility] [place] [address] * (ABNORMAL) Differential, auto (12/06/2024 6:08 AM WAISTLINE JOINER LOCKSTITCH) Neutrophil abs 7.8(H) 1.5 - 6.5 K/cumm [...] Neutrophil pct 78.2 % [facility] ([place]) Comment: Interpretive Data Percent cell count reference [...] revised on 2018. Blood 12/06/2024 6:08 AM WAISTLINE JOINER LOCKSTITCH 12/06/2024 6:20 AM WAISTLINE JOINER LOCKSTITCH us Sanjeev Gonzales MD LAB BLOOD ORDERABLES Final Resu lt [facility] ([place]) 1 [facility] [place] [address] * (ABNORMAL) CBC with auto differential (12/06/2024 6:08 AM WAISTLINE JOINER LOCKSTITCH) WBC 10.0(H) 3.8 - 9.9 K/cumm Hgb [...] NRBC abs 0.03(H) 0.00 - 0.01 K/cumm [facility] ([place]) Blood 12/06/2024 6:08 AM WAISTLINE JOINER LOCKSTITCH 12/06/2024 6:20 AM WAISTLINE JOINER LOCKSTITCH us Sanjeev Gonzales MD LAB BLOOD ORDERABLES Final Resu lt Performing Organization Address [facility] Co de Phone Number [facility] ([place]) 1 [facility] [place] [address] * (ABNORMAL) Protime-INR (12/06/2024 6:08 AM WAISTLINE JOINER LOCKSTITCH) PT 18.9(H) 9.7 - 13.0 sec [facility] ([place]) INR 1.73(H) 0.90 - 1.20 [facility] ([place]) Comment: Interpretive data Oral anticoagulant therapeutic ranges: Venous thromboembolism prophylaxis or treatment: 2.0-3.0 CARDIOLOGY Standard range: 2.0-3.0 High-intensity range: 2.5-3.5 Refer to indication-specific guidelines for appropriate target ranges for prosthetic heart valve replacement. Current interpretive data was last revised on 2019. Blood 12/06/2024 6:08 AM WAISTLINE JOINER LOCKSTITCH 12/06/2024 6:20 AM WAISTLINE JOINER LOCKSTITCH us Sampson Davenport II, MD LAB BLOOD ORDERABLES F inal Result Performing Organization Address [facility] Co de Phone Number [facility] ([place]) 1 [facility] [place] [address] * Magnesium (12/06/2024 6:08 AM WAISTLINE JOINER LOCKSTITCH) Magnesium 2.3 1.4 - 2.5 mg/dL Blood 12/06/2024 6:08 AM WAISTLINE JOINER LOCKSTITCH 12/06/2024 6:20 AM WAISTLINE JOINER LOCKSTITCH us Sanjeev Gonzales MD LAB BLOOD ORDERABLES Final Resu lt Performing Organization Address City/[facility] Co de Phone Number [facility] ([place]) 1 [facility] [place] [address] * (ABNORMAL) Comprehensive metabolic panel (12/06/2024 6:08 AM WAISTLINE JOINER LOCKSTITCH) Sodium 146(H) 135 - 145 mmol/L Potassium, pl 3.8 3.3 - 4.9 mmol/L [facility] ([place]) Chloride 97 97 - 110 mmol/L [facility] ([place] CO2 36(H) 22 - 32 mmol/L [facility] ([place] Anion gap 13 2 - 15 mmol/L [facility] ([place] BUN 19 6 - 25 mg/dL [facility] ([place]) Creatinine 0.47(L) 0.60 - 1.10 mg/dL [facility] ([place]) Glucose 207(H) 70 - 199 mg/dL [facility] ([place] [...] [facility] ([place]) Blood 12/06/2024 6:08 AM WAISTLINE JOINER LOCKSTITCH 12/06/2024 6:20 AM WAISTLINE JOINER LOCKSTITCH Sanjeev Gonzales MD LAB BLOOD ORDERABLES Final Resu lt [facility] ([place]) 1 [facility] [place] [address] * POCT glucose (12/06/2024 2:54 AM WAISTLINE JOINER LOCKSTITCH) Glucose, POC 179 70 - 199 mg/dL Blood 12/06/2024 2:54 AM WAISTLINE JOINER LOCKSTITCH 12/06/2024 2:54 AM WAISTLINE JOINER LOCKSTITCH us Sampson Davenport II, MD LAB POCT ORDERABLES - DEVICE Final Result Performing Organization Address [facility]/ZIP Co de Phone Number [facility] ([place]) 1 [facility] [place] [address] * (ABNORMAL) POCT glucose (12/05/2024 8:38 PM WAISTLINE JOINER LOCKSTITCH) Glucose, POC 259(H) 70 - 199 mg/dL Blood 12/05/2024 8:38 PM WAISTLINE JOINER LOCKSTITCH 12/05/2024 8:38 PM WAISTLINE JOINER LOCKSTITCH us Sampson Davenport II, MD LAB POCT ORDERABLES - DEVICE Final Result Performing Organization Address City/[facility]/ZIP Co de Phone Number [facility] ([place]) 1 [facility] [place] [address] * POCT glucose (12/05/2024 5:15 PM WAISTLINE JOINER LOCKSTITCH) Glucose, POC 193 70 - 199 mg/dL Blood 12/05/2024 5:15 PM WAISTLINE JOINER LOCKSTITCH 12/05/2024 5:15 PM WAISTLINE JOINER LOCKSTITCH us Sampson Davenport II, MD LAB POCT ORDERABLES - DEVICE Final Result [facility] ([place]) 1 [facility] [place] [address] * (ABNORMAL) POCT glucose (12/05/2024 12:17 PM WAISTLINE JOINER LOCKSTITCH) Glucose, POC 209(H) 70 - 199 mg/dL Comment:Glu2: RAMYA/ Notified Blood 12/05/2024 12:1 7 PM WAISTLINE JOINER LOCKSTITCH 12/05/2024 12:17 PM WAISTLINE JOINER LOCKSTITCH us Sampson Davenport II, MD LAB POCT ORDERABLES - DEVICE Final Result [facility] 1 [facility] [place] [address] * (ABNORMAL) POCT glucose (12/05/2024 7:42 AM WAISTLINE JOINER LOCKSTITCH) Glucose, POC 254(H) 70 - 199 mg/dL Comment:Glu2: RAMYA/ Notified Blood 12/05/2024 7:42 AM WAISTLINE JOINER LOCKSTITCH 12/05/2024 7:42 AM WAISTLINE JOINER LOCKSTITCH us Sampson Davenport II, MD LAB POCT ORDERABLES - DEVICE Final Result Performing Organization Address City/[facility]/ZIP Co de Phone Number [facility] ([place]) [address] [place] [address] [place] [address] * eGFR (12/05/2024 5:47 AM WAISTLINE JOINER LOCKSTITCH) eGFR >90 >=60 mL/min/1. 73 m2 Comment: [...] last reviewed 2021. Blood 12/05/2024 5:47 AM WAISTLINE JOINER LOCKSTITCH 12/05/2024 6:10 AM WAISTLINE JOINER LOCKSTITCH us Sanjeev Gonzales MD LAB BLOOD ORDERABLES Final Resu lt [facility] ([place]) 1 [facility] Department [place] [address] * (ABNORMAL) Differential, auto (12/05/2024 5:47 AM WAISTLINE JOINER LOCKSTITCH) Neutrophil abs 8.9(H) 1.5 - 6.5 K/cumm [...] revised on 2018. Blood 12/05/2024 5:47 AM WAISTLINE JOINER LOCKSTITCH 12/05/2024 6:10 AM WAISTLINE JOINER LOCKSTITCH us Sanjeev Gonzales MD LAB BLOOD ORDERABLES Final Resu lt [facility] ([place]) 1 [facility] Department [place] [address] * (ABNORMAL) CBC with auto differential (12/05/2024 5:47 AM WAISTLINE JOINER LOCKSTITCH) WBC 11.7(H) 3.8 - 9.9 K/cumm Hgb [...] RDW CV 22.7(H) 11.1 - 14.9 % [facility] ([place]) RDW SD 68.1(H) 35.7 - 48.1 fL [facility] ([place]) NRBC abs 0.00 0.00 - 0.01 K/cumm [facility] ([place]) Blood 12/05/2024 5:47 AM WAISTLINE JOINER LOCKSTITCH 12/05/2024 6:10 AM WAISTLINE JOINER LOCKSTITCH Sanjeev Gonzales MD LAB BLOOD ORDERABLES Final Resu lt [facility] ([place]) 1 [facility] [place] [address] * (ABNORMAL) aPTT (12/05/2024 5:47 AM WAISTLINE JOINER LOCKSTITCH) aPTT 92(H) 28 - 38 sec [facility] ([place]) Comment: Interpretive Data Heparin therapeutic range: 66.0 - 100.0 seconds. Range based on correlation with therapeutic heparin activity range of 0.3 - 0.7 Units/mL. Current interpretive data was last revised on 2023. Blood 12/05/2024 5:47 AM WAISTLINE JOINER LOCKSTITCH 12/05/2024 6:10 AM WAISTLINE JOINER LOCKSTITCH Narrative [facility] ([place]) - 12/05/2024 7:06 AM WAISTLINE JOINER LOCKSTITCH Do not draw lab from IV line [...] Final Resu lt [facility] ([place]) 1 [facility] [place] [address] * Magnesium (12/05/2024 5:47 AM WAISTLINE JOINER LOCKSTITCH) Magnesium 2.2 1.4 - 2.5 mg/dL Blood 12/05/2024 5:47 AM WAISTLINE JOINER LOCKSTITCH 12/05/2024 6:10 AM WAISTLINE JOINER LOCKSTITCH us Sanjeev Gonzlaes MD LAB BLOOD ORDERABLES Final Resu lt [facility] ([place]) 1 [facility] Department [place] [address] * (ABNORMAL) Lipid panel (12/05/2024 5:47 AM WAISTLINE JOINER LOCKSTITCH) Cholesterol 142 30 - 199 mg/dL Comment: [...] on 2024. Non-HDL Cholesterol 105 mg/dL [facility] ([place]) Comment: Interpretive Data [...] last revised on 2018. Chol/HDL ratio 4 [facility] ([place]) Blood 12/05/2024 5:47 AM WAISTLINE JOINER LOCKSTITCH 12/05/2024 6:10 AM WAISTLINE JOINER LOCKSTITCH us Franchesca Pierce MD LAB BLOOD ORDERABLES Final Res ult [facility] ([place]) 1 [facility] Department [place] [address] * (ABNORMAL) Comprehensive metabolic panel (12/05/2024 5:47 AM WAISTLINE JOINER LOCKSTITCH) Sodium 143 135 - 145 mmol/L Potassium, [...] [facility] ([place]) Blood 12/05/2024 5:47 AM WAISTLINE JOINER LOCKSTITCH 12/05/2024 6:10 AM WAISTLINE JOINER LOCKSTITCH Sanjeev Gonzales MD LAB BLOOD ORDERABLES Final Resu lt Performing Organization Address City/[facility]/ZIP Co de Phone Number [facility] ([place]) 1 [facility] Department [place] [address] * ECG 12 lead (12/05/2024 5:26 AM WAISTLINE JOINER LOCKSTITCH) 12/05/2024 5:26 AM WAISTLINE JOINER LOCKSTITCH Narrative [facility] - 12/06/2024 6:36 AM WAISTLINE JOINER LOCKSTITCH Vent Rate: 99 bpm RR Interval: 602 msec OK Interval: 349 msec QRS Duration: 98 msec QT Interval: 368 msec QTC Interval: 424 msec P-R-T [place]: -9 - -6 - 75 degrees IMPRESSION: Sinus rhythm with frequent PACs MODERATE VOLTAGE CRITERIA FOR LVH, CONSIDER NORMAL VARIANT [MEETS CRITERIA IN ONE OF: R(aVL), S(V1), R(V5), R(V5/V6)+S(V1)] NONSPECIFIC T-WAVE ABNORMALITY ABNORMAL RHYTHM ECG NO CHANGE FROM PREVIOUS TRACING NOTED Electronically Signed By: Doni Coles MD Sanjeev Gonzales MD ECG ORDERABLES Final Result Performing Organization Address [facility] Co de Phone Number [facility] * (ABNORMAL) POCT glucose (12/05/2024 2:38 AM WAISTLINE JOINER LOCKSTITCH) Glucose, POC 308(H) 70 - 199 mg/dL Blood 12/05/2024 2:38 AM WAISTLINE JOINER LOCKSTITCH 12/05/2024 2:38 AM WAISTLINE JOINER LOCKSTITCH Sanjeev Gonzales MD LAB POCT ORDERABLES - DEVICE Fi nal Result Performing Organization Address City/[facility]/ZIP Co de Phone Number [facility] ([place] 1 [facility] [place] [address] * (ABNORMAL) aPTT (12/04/2024 11:06 PM WAISTLINE JOINER LOCKSTITCH) aPTT 54(H) 28 - 38 sec [facility] ([place]) Comment: Interpretive Data Heparin therapeutic range: 66.0 - 100.0 seconds. Range based on correlation with therapeutic heparin activity range of 0.3 - 0.7 Units/mL. Current interpretive data was last revised on 2023. Blood 12/04/2024 11:0 6 PM WAISTLINE JOINER LOCKSTITCH 12/04/2024 11:19 PM WAISTLINE JOINER LOCKSTITCH Franchesca Pierce MD LAB BLOOD ORDERABLES Final Res ult Performing Organization Address [facility] Co de Phone Number [facility] ([place]) 1 [facility] [place] [address] * (ABNORMAL) Troponin T high-sensitivity 6-hour (12/04/2024 10:12 PM WAISTLINE JOINER LOCKSTITCH) Pathologist [facility] Trop T hs 48(H) <=14 ng/L Comment: Interpretive Data For further hscTnT resources including the diagnostic algorithm and an aid in interpretation, copy and paste this link: https://nrl.testcatalog.org/show/hsTrop Current Interpretive Data last revised 2020. Trop T hs delta 7 ng/L [facility] ([place]) Trop T hs interp Equivocal [facility] ([place]) Blood 12/04/2024 10:1 2 PM WAISTLINE JOINER LOCKSTITCH 12/04/2024 10:15 PM WAISTLINE JOINER LOCKSTITCH Franchesca Pierce MD LAB BLOOD ORDERABLES Final Res ult [facility] ([place]) 1 [facility] [place] [address] * (ABNORMAL) POCT glucose (12/04/2024 9:00 PM WAISTLINE JOINER LOCKSTITCH) Pathologist [facility] Glucose, POC 261(H) 70 - 199 mg/dL Blood 12/04/2024 9:00 PM WAISTLINE JOINER LOCKSTITCH 12/04/2024 9:00 PM WAISTLINE JOINER LOCKSTITCH Sanjeev Gonzales MD LAB POCT ORDERABLES - DEVICE Fi nal Result Performing Organization Address City/[facility]/ZIP Co de Phone Number [facility] ([place]) 1 [facility] [employer] [place] [id number] * (ABNORMAL) Troponin T high-sensitivity 4-hour (12/04/2024 8:32 PM WAISTLINE JOINER LOCKSTITCH) Trop T hs 48(H) <=14 ng/L Comment: Interpretive Data For further hscTnT resources including the diagnostic algorithm and an aid in interpretation, copy and paste this link: https://nrl.DealerRater.org/show/hsTrop Current Interpretive Data last revised 2020. Trop T hs delta 7 ng/L [facility] ([place]) Trop T hs interp Equivocal [facility] ([place]) Blood 12/04/2024 8:32 PM WAISTLINE JOINER LOCKSTITCH 12/04/2024 8:35 PM WAISTLINE JOINER LOCKSTITCH Franchesca Pierce MD LAB BLOOD ORDERABLES Final Res ult Performing Organization Address City/[facility] Co de Phone Number [facility] ([place] 1 [facility] [place] [address] * (ABNORMAL) Troponin T high-sensitivity 2-hour (12/04/2024 6:02 PM WAISTLINE JOINER LOCKSTITCH) Trop T hs 48(H) <=14 ng/L Comment: Interpretive Data For further hscTnT resources including the diagnostic algorithm and an aid in interpretation, copy and paste this link: https://nrl.DealerRater.org/show/hsTrop Current Interpretive Data last revised 2020. Trop T hs delta 7 ng/L [facility] ([place]) Trop T hs interp Equivocal [facility] ([place]) Blood 12/04/2024 6:02 PM WAISTLINE JOINER LOCKSTITCH 12/04/2024 6:34 PM WAISTLINE JOINER LOCKSTITCH Franchesca Pierce MD LAB BLOOD ORDERABLES Final Res ult [facility] ([place]) 1 [facility] Department [place] [address] * eGFR (12/04/2024 4:12 PM WAISTLINE JOINER LOCKSTITCH) eGFR >90 >=60 mL/min/1. 73 m2 Comment: [...] data was last reviewed 2021. Blood 12/04/2024 4:1 2 PM WAISTLINE JOINER LOCKSTITCH 12/04/2024 4:27 PM WAISTLINE JOINER LOCKSTITCH us Franchesca Pierce MD LAB BLOOD ORDERABLES Final Res ult Performing Organization Address City/[facility]/ZIP Co de Phone Number [facility] ([place]) 1 [facility] [place] [address] * (ABNORMAL) aPTT (12/04/2024 4:12 PM WAISTLINE JOINER LOCKSTITCH) aPTT 78(H) 28 - 38 sec [facility] ([place]) Comment: Interpretive Data Heparin therapeutic range: 66.0 - 100.0 seconds. Range based on correlation with therapeutic heparin activity range of 0.3 - 0.7 Units/mL. Current interpretive data was last revised on 2023. Blood 12/04/2024 4:12 PM WAISTLINE JOINER LOCKSTITCH 12/04/2024 4:27 PM WAISTLINE JOINER LOCKSTITCH Narrative [facility] ([place]) - 12/04/2024 4:42 PM WAISTLINE JOINER LOCKSTITCH Baseline prior to heparin initiation Franchesca Pierce MD LAB BLOOD ORDERABLES Final Res ult Performing Organization Address City/[facility]/ZIP Co de Phone Number [facility] ([place] 1 [facility] [place] [address] * (ABNORMAL) Protime-INR (12/04/2024 4:12 PM WAISTLINE JOINER LOCKSTITCH) PT 18.0(H) 9.7 - 13.0 sec [facility] ([place]) INR 1.65(H) 0.90 - 1.20 [facility] ([place]) Comment: Interpretive data Oral anticoagulant therapeutic ranges: Venous thromboembolism prophylaxis or treatment: 2.0-3.0 CARDIOLOGY Standard range: 2.0-3.0 High-intensity range: 2.5-3.5 Refer to indication-specific guidelines for appropriate target ranges for prosthetic heart valve replacement. Current interpretive data was last revised on 2019. Blood 12/04/2024 4:12 PM WAISTLINE JOINER LOCKSTITCH 12/04/2024 4:27 PM WAISTLINE JOINER LOCKSTITCH Narrative [facility] ([place] - 12/04/2024 4:42 PM WAISTLINE JOINER LOCKSTITCH Baseline prior to heparin initiation Franchesca Pierce MD LAB BLOOD ORDERABLES Final Res ult Performing Organization Address City/[facility]/ZIP Co de Phone Number [facility] ([place] 1 [facility] [place] [address] * (ABNORMAL) CBC without differential (12/04/2024 4:12 PM WAISTLINE JOINER LOCKSTITCH) WBC 14.7(H) 3.8 - 9.9 K/cumm Hgb 8.9(L) 11.9 - 15.5 g/dL [facility] ([place]) Hct 31.6(L) 35.6 - 45.5 % [facility] ([place]) Plt 424(H) 150 - 400 K/cumm [facility] ([place]) MPV 10.4 9.1 - 12.3 [...] [facility] ([place]) Blood 12/04/2024 4:12 PM WAISTLINE JOINER LOCKSTITCH 12/04/2024 4:26 PM WAISTLINE JOINER LOCKSTITCH Narrative [facility] - 12/04/2024 4:29 PM WAISTLINE JOINER LOCKSTITCH Baseline prior to heparin initiation us Franchesca Pierce MD LAB BLOOD ORDERABLES Final Res ult [facility] 1 [facility] Department [place] [address] * (ABNORMAL) Basic metabolic panel (12/04/2024 4:12 PM WAISTLINE JOINER LOCKSTITCH) Sodium 136 135 - 145 mmol/L Potassium, pl 4.4 3.3 - 4.9 mmol/L [facility] Chloride 91(L) 97 - 110 mmol/L [facility] ([place] CO2 29 22 - 32 mmol/L [facility] ([place] Anion gap 16(H) 2 - 15 mmol/L [facility] ([place]) BUN 20 6 - 25 mg/dL [facility] ([place]) Creatinine 0.52(L) 0.60 - 1.10 mg/dL [facility] ([place]) Glucose 385(H) 70 - 199 mg/dL [facility] ([place] [...] 2022. Calcium 9.4 8.5 - 10.3 mg/dL [facility] ([place]) Blood 12/04/2024 4:12 PM WAISTLINE JOINER LOCKSTITCH 12/04/2024 4:27 PM WAISTLINE JOINER LOCKSTITCH Franchesca Pierce MD LAB BLOOD ORDERABLES Final Res ult Performing Organization Address City/[facility]/ZIP Co de Phone Number [facility] ([place]) 1 [facility] [place] [address] * (ABNORMAL) Troponin T high-sensitivity series (baseline, 2hr, 4hr, 6hr) (12/04/2024 4:08 PM WAISTLINE JOINER LOCKSTITCH) Trop T hs 41(H) <=14 ng/L Comment: Interpretive Data For further hscTnT resources including the diagnostic algorithm and an aid in interpretation, copy and paste this link: https://nrl.testcatalog.org/show/hsTrop Current Interpretive Data last revised 2020. Blood 12/04/2024 4:08 PM WAISTLINE JOINER LOCKSTITCH 12/04/2024 4:36 PM WAISTLINE JOINER LOCKSTITCH Franchesca Pierce MD LAB BLOOD ORDERABLES Final Res ult Performing Organization Address City/[facility]/ZIP Co de Phone Number [facility] ([place]) 1 [facility] [place] [address] * POCT glucose (11/30/2024 11:42 AM WAISTLINE JOINER LOCKSTITCH) Glucose, POC 121 70 - 199 mg/dL Blood 11/30/2024 11:4 2 AM WAISTLINE JOINER LOCKSTITCH 11/30/2024 11:42 AM WAISTLINE JOINER LOCKSTITCH us Hesham Madsen MD LAB POCT ORDERABLES - DEVICE Final Result Performing Organization Address [facility] de Phone Number [facility] [place] [address] * (ABNORMAL) POCT glucose (11/30/2024 7:37 AM WAISTLINE JOINER LOCKSTITCH) Glucose, POC 220(H) 70 - 199 mg/dL Blood 11/30/2024 7:37 AM WAISTLINE JOINER LOCKSTITCH 11/30/2024 7:37 AM WAISTLINE JOINER LOCKSTITCH us Hesham Madsen MD LAB POCT ORDERABLES - DEVICE Final Result Performing Organization Address [facility] de Phone Number [facility] [place] [address] * (ABNORMAL) POCT glucose (11/30/2024 2:12 AM WAISTLINE JOINER LOCKSTITCH) Glucose, POC 227(H) 70 - 199 mg/dL Blood 11/30/2024 2:12 AM WAISTLINE JOINER LOCKSTITCH 11/30/2024 2:12 AM WAISTLINE JOINER LOCKSTITCH Result [facility] Hesham Madsen MD LAB POCT ORDERABLES - DEVICE Final Result Performing Organization Address [facility] de Phone Number [facility] [place] [address] * eGFR (11/30/2024 12:02 AM WAISTLINE JOINER LOCKSTITCH) eGFR >90 >=60 mL/min/1. 73 m2 Comment: [...] reviewed 2021. Blood 11/30/2024 12:0 2 AM WAISTLINE JOINER LOCKSTITCH 11/30/2024 12:30 AM WAISTLINE JOINER LOCKSTITCH Hesham Madsen MD LAB BLOOD ORDERABLES Final R esult [facility] [place] [address] * (ABNORMAL) Basic metabolic panel (11/30/2024 12:02 AM WAISTLINE JOINER LOCKSTITCH) Sodium 143 135 - 145 mmol/L Potassium, pl 4.4 3.3 - 4.9 mmol/L [facility] Comment:Repeated and Verifie d Chloride 101 97 - 110 mmol/L [facility] CO2 36(H) 22 - 32 mmol/L [facility] Anion gap 6 2 - 15 mmol/L [facility] BUN 23 6 - 25 mg/dL [facility] Creatinine 0.47(L) 0.60 - 1.10 mg/dL [facility] Glucose 171 70 - 199 mg/dL [facility] Comment: Interpretive Data Fasting glucose >/= [...] 2022. Calcium 9.1 8.5 - 10.3 mg/dL [facility] Comment:Reviewed Blood 11/30/2024 12:0 2 AM WAISTLINE JOINER LOCKSTITCH 11/30/2024 12:30 AM WAISTLINE JOINER LOCKSTITCH Hesham Madsen MD LAB BLOOD ORDERABLES Final R esult Performing Organization Address City/[facility]/ZIP Co de Phone Number [facility] [place] [address] * (ABNORMAL) POCT glucose (11/29/2024 9:58 PM WAISTLINE JOINER LOCKSTITCH) Glucose, POC 207(H) 70 - 199 mg/dL Blood 11/29/2024 9:58 PM WAISTLINE JOINER LOCKSTITCH 11/29/2024 9:58 PM WAISTLINE JOINER LOCKSTITCH Hesham Madsen MD LAB POCT ORDERABLES - DEVICE Final Result Performing Organization Address City/[facility] de Phone Number [facility] [place] [address] * eGFR (11/29/2024 8:56 PM WAISTLINE JOINER LOCKSTITCH) eGFR See Comment >=60 Comment: Interpretive Data [...] last reviewed 2021. Blood 11/29/2024 8:56 PM WAISTLINE JOINER LOCKSTITCH 11/29/2024 9:58 PM WAISTLINE JOINER LOCKSTITCH Manisha Williamson NP LAB BLOOD ORDERABLES Edited Result - Final [facility] [place] [address] * (ABNORMAL) Differential, auto (11/29/2024 8:56 PM WAISTLINE JOINER LOCKSTITCH) Neutrophil abs 7.2(H) 1.5 - 6.5 K/cumm Imm gran abs 0.2(H) 0.0 - 0.1 K/cumm [facility] Lymphocyte abs 2.1 0.8 - 3.3 K/cumm [facility] Monocyte abs 0.7 0.2 - 0.8 K/cumm [facility] Eosinophil abs 0.0 0.0 - 0.5 K/cumm [facility] Basophil abs 0.0 0.0 - 0.1 K/cumm [facility] Neutrophil pct 70.6 % [facility] Comment: Interpretive Data Percent cell count reference ranges are not reported, since discordance with absolute values may lead to misinterpretation of CBC data. Current Interpretive Data was last revised on 2018. Imm gran pct 1.8 % [facility] Comment: Interpretive Data Percent cell count reference ranges are not reported, since discordance with absolute values may lead to misinterpretation of CBC data. Current Interpretive Data was last revised on 2018. Lymphocyte pct 20.4 % [facility] Comment: Interpretive Data Percent cell count reference ranges are not reported, since discordance with absolute values may lead to misinterpretation of CBC data. Current Interpretive Data was last revised on 2018. Monocyte pct 6.7 % [facility] Comment: Interpretive Data Percent cell count reference ranges are not reported, since discordance with absolute values may lead to misinterpretation of CBC data. Current Interpretive Data was last revised on 2018. Eosinophil pct 0.4 % [facility] Comment: Interpretive Data Percent cell count reference ranges are not reported, since discordance with absolute values may lead to misinterpretation of CBC data. Current Interpretive Data was last revised on 2018. Basophil pct 0.1 % [facility] Comment: Interpretive Data Percent cell count reference ranges are not reported, since discordance with absolute values may lead to misinterpretation of CBC data. Current Interpretive Data was last revised on 2018. Blood 11/29/2024 8:56 PM WAISTLINE JOINER LOCKSTITCH 11/29/2024 9:45 PM WAISTLINE JOINER LOCKSTITCH Manisha Williamson NP LAB BLOOD ORDERABLES Final Result Performing Organization Address City/[facility]/ZIP Co de Phone Number [facility] [place] [address] * Critical Result Callback Chemistry (11/29/2024 8:56 PM WAISTLINE JOINER LOCKSTITCH) Date Notified [id number] Time Notified [id number] TestName Potassium, Calcium [facility] Called/Read Back [place] [facility] Credentials RN [facility] Called By [facility] Blood 11/29/2024 8:56 PM WAISTLINE JOINER LOCKSTITCH 11/29/2024 9:58 PM WAISTLINE JOINER LOCKSTITCH Manisha Williamson NP LAB BLOOD ORDERABLES Final Result Performing Organization Address City/[facility]/ZIP Co de Phone Number [facility] [place] [address] * (ABNORMAL) CBC with auto differential (11/29/2024 8:56 PM WAISTLINE JOINER LOCKSTITCH) WBC 10.2(H) 3.8 - 9.9 K/cumm Hgb 9.2(L) 11.9 - 15.5 g/dL [facility] Hct 33.3(L) 35.6 - 45.5 % [facility] Plt 370 150 - 400 K/cumm [facility] MPV 10.7 9.1 - 12.3 fL [facility] RBC 4.03 3.90 - 5.20 M/cumm [facility] MCV 82.6 81.3 - 96.4 fL [facility] MCH 22.8(L) 27.1 - 33.3 pg [facility] MCHC 27.6(L) 32.3 - 35.7 g/dL [facility] RDW CV 22.9(H) 11.1 - 14.9 % [facility] RDW SD 67.7(H) 35.7 - 48.1 fL [facility] NRBC abs 0.04(H) 0.00 - 0.01 K/cumm [facility] Blood 11/29/2024 8:56 PM WAISTLINE JOINER LOCKSTITCH 11/29/2024 9:45 PM WAISTLINE JOINER LOCKSTITCH us Manisha Williamson NP LAB BLOOD ORDERABLES Final Result Performing Organization Address [facility] de Phone Number [facility] [place] [address] * (ABNORMAL) Protime-INR (11/29/2024 8:56 PM WAISTLINE JOINER LOCKSTITCH) PT 28.0(H) 9.7 - 13.0 sec INR 2.54(H) 0.90 - 1.20 [facility] Comment: Interpretive data Oral anticoagulant therapeutic ranges: Venous thromboembolism prophylaxis or treatment: 2.0-3.0 CARDIOLOGY Standard range: 2.0-3.0 High-intensity range: 2.5-3.5 Refer to indication-specific guidelines for appropriate target ranges for prosthetic heart valve replacement. Current interpretive data was last revised on 2019. Blood 11/29/2024 8:56 PM WAISTLINE JOINER LOCKSTITCH 11/29/2024 9:45 PM WAISTLINE JOINER LOCKSTITCH Hesham Madsen MD LAB BLOOD ORDERABLES Final R esult Performing Organization Address City/[facility]/ZIP Co de Phone Number [facility] [place] [address] * Basic metabolic panel (11/29/2024 8:56 PM WAISTLINE JOINER LOCKSTITCH) [facility] Sodium See Comment 135 - 145 mmol/L Comment:Credited: Sample inv estigated and is suggestive of an improper collection (e.g., IV fluid contamination, improper tube type). Deleted at the Request of [place] RN on 11/29/2024 23:33:56 WAISTLINE JOINER LOCKSTITCH by RV . Potassium, pl See Comment 3.3 - 4.9 mmol/L [facility] Comment: Hemolyzed; Potassium value may be falsely elevated by as much as 0.3-0.5 mmol/L. Suggest redraw and reanalysis. Credited: Sample investigated and is suggestive of an improper collection (e.g., IV fluid contamination, improper tube type). Deleted at the Request of [place] F[place] RN on 11/29/2024 23:33:56 WAISTLINE JOINER LOCKSTITCH by RV . Chloride See Comment 97 - 110 mmol/L [facility] Comment:Credited: Sample inv estigated and is suggestive of an improper collection (e.g., IV fluid contamination, improper tube type). Deleted at the Request of [place] F[place] RN on 11/29/2024 23:33:56 WAISTLINE JOINER LOCKSTITCH by RV . CO2 See Comment 22 - 32 mmol/L [facility] Comment:Credited: Sample inv estigated and is suggestive of an improper collection (e.g., IV fluid contamination, improper tube type). Deleted at the Request of [place] F[place] RN on 11/29/2024 23:33:56 WAISTLINE JOINER LOCKSTITCH by RV . Anion gap See Comment 2 - 15 mmol/L [facility] Comment:Credited: Sample inv estigated and is suggestive of an improper collection (e.g., IV fluid contamination, improper tube type). Deleted at the Request of [place] F[place] RN on 11/29/2024 23:33:56 WAISTLINE JOINER LOCKSTITCH by RV . BUN See Comment 6 - 25 mg/dL [facility] Comment:Credited: Sample inv estigated and is suggestive of an improper collection (e.g., IV fluid contamination, improper tube type). Deleted at the Request of [place] F[place] RN on 11/29/2024 23:33:56 WAISTLINE JOINER LOCKSTITCH by RV . Creatinine See Comment 0.60 - 1.10 mg/dL [facility] Comment:Credited: Sample inv estigated and is suggestive of an improper collection (e.g., IV fluid contamination, improper tube type). Deleted at the Request of [place] F[place] RN on 11/29/2024 23:33:56 WAISTLINE JOINER LOCKSTITCH by RV . Glucose See Comment 70 - 199 mg/dL [facility] Comment: Credited: Sample investigated and is suggestive of an improper collection (e.g., IV fluid contamination, improper tube type). Deleted at the Request of [place] F[place] RN on 11/29/2024 23:33:56 WAISTLINE JOINER LOCKSTITCH by RV . Interpretive Data Fasting glucose [...] See Comment 8.5 - 10.3 mg/dL [facility] Comment:Credited: Sample inv estigated and is suggestive of an improper collection (e.g., IV fluid contamination, improper tube type). Deleted at the Request of [place] F[place] RN on 11/29/2024 23:33:56 WAISTLINE JOINER LOCKSTITCH by RV . Blood 11/29/2024 8:56 PM WAISTLINE JOINER LOCKSTITCH 11/29/2024 9:45 PM WAISTLINE JOINER LOCKSTITCH Manisha Williamson NP LAB BLOOD ORDERABLES Edited Result - Final [facility] Department [place] [address] * POCT glucose (11/29/2024 7:29 PM WAISTLINE JOINER LOCKSTITCH) Glucose, POC 182 70 - 199 mg/dL Blood 11/29/2024 7:29 PM WAISTLINE JOINER LOCKSTITCH 11/29/2024 7:29 PM WAISTLINE JOINER LOCKSTITCH us Hesham Madsen MD LAB POCT ORDERABLES - DEVICE Final Result Performing Organization Address [facility] de Phone Number [facility] [place] [address] * POCT glucose (11/29/2024 5:12 PM WAISTLINE JOINER LOCKSTITCH) Glucose, POC 128 70 - 199 mg/dL Blood 11/29/2024 5:12 PM WAISTLINE JOINER LOCKSTITCH 11/29/2024 5:12 PM WAISTLINE JOINER LOCKSTITCH us Hesham Madsen MD LAB POCT ORDERABLES - DEVICE Final Result Performing Organization Address [facility] de Phone Number [facility] [place] [address] * POCT glucose (11/29/2024 11:17 AM WAISTLINE JOINER LOCKSTITCH) Glucose, POC 189 70 - 199 mg/dL Blood 11/29/2024 11:1 7 AM WAISTLINE JOINER LOCKSTITCH 11/29/2024 11:17 AM WAISTLINE JOINER LOCKSTITCH Result Stacie Madsen MD LAB POCT ORDERABLES - DEVICE Final Result Performing Organization Address [facility] [place] [address] * POCT glucose (11/29/2024 7:42 AM WAISTLINE JOINER LOCKSTITCH) Glucose, POC 149 70 - 199 mg/dL Blood 11/29/2024 7:42 AM WAISTLINE JOINER LOCKSTITCH 11/29/2024 7:42 AM WAISTLINE JOINER LOCKSTITCH us Hesham Madsen MD LAB POCT ORDERABLES - DEVICE Final Result Performing Organization Address City/[facility] Co de Phone Number [facility] Department [place] [address] * POCT glucose (11/29/2024 2:07 AM WAISTLINE JOINER LOCKSTITCH) Glucose, POC 163 70 - 199 mg/dL Blood 11/29/2024 2:07 AM WAISTLINE JOINER LOCKSTITCH 11/29/2024 2:07 AM WAISTLINE JOINER LOCKSTITCH Hesham Madsen MD LAB POCT ORDERABLES - DEVICE Final Result Performing Organization Address [facility] Co de Phone Number [facility] [place] [address] * (ABNORMAL) POCT glucose (11/29/2024 12:02 AM WAISTLINE JOINER LOCKSTITCH) [facility] Glucose, POC 202(H) 70 - 199 mg/dL Blood 11/29/2024 12:0 2 AM WAISTLINE JOINER LOCKSTITCH 11/29/2024 12:02 AM WAISTLINE JOINER LOCKSTITCH Hesham Madsen MD LAB POCT ORDERABLES - DEVICE Final Result Performing Organization Address [facility] de Phone Number [facility] Department [place] [address] * eGFR (11/28/2024 9:54 PM WAISTLINE JOINER LOCKSTITCH) [facility] eGFR >90 >=60 mL/min/1. 73 m2 [...] last reviewed 2021. Blood 11/28/2024 9:54 PM WAISTLINE JOINER LOCKSTITCH 11/28/2024 10:52 PM WAISTLINE JOINER LOCKSTITCH Manisha Williamson NP LAB BLOOD ORDERABLES Final Result [facility] Department [place] [address] * (ABNORMAL) Differential, auto (11/28/2024 9:54 PM WAISTLINE JOINER LOCKSTITCH) Neutrophil abs 6.3 1.5 - 6.5 K/cumm Imm gran abs 0.2(H) 0.0 - 0.1 K/cumm [facility] Lymphocyte abs 1.1 0.8 - 3.3 K/cumm [facility] Monocyte abs 0.5 0.2 - 0.8 K/cumm [facility] Eosinophil abs 0.0 0.0 - 0.5 K/cumm [facility] Basophil abs 0.0 0.0 - 0.1 K/cumm [facility] Neutrophil pct 78.3 % [facility] Comment: Interpretive Data Percent cell count reference ranges are not reported, since discordance with absolute values may lead to misinterpretation of CBC data. Current Interpretive Data was last revised on 2018. Imm gran pct 2.0 % [facility] Comment: Interpretive Data Percent cell count reference ranges are not reported, since discordance with absolute values may lead to misinterpretation of CBC data. Current Interpretive Data was last revised on 2018. Lymphocyte pct 13.6 % [facility] Comment: Interpretive Data Percent cell count reference ranges are not reported, since discordance with absolute values may lead to misinterpretation of CBC data. Current Interpretive Data was last revised on 2018. Monocyte pct 5.8 % [facility] Comment: Interpretive Data Percent cell count reference ranges are not reported, since discordance with absolute values may lead to misinterpretation of CBC data. Current Interpretive Data was last revised on 2018. Eosinophil pct 0.2 % [facility] Comment: Interpretive Data Percent cell count reference ranges are not reported, since discordance with absolute values may lead to misinterpretation of CBC data. Current Interpretive Data was last revised on 2018. Basophil pct 0.1 % [facility] Comment: Interpretive Data Percent cell count reference ranges are not reported, since discordance with absolute values may lead to misinterpretation of CBC data. Current Interpretive Data was last revised on 2018. Blood 11/28/2024 9:54 PM WAISTLINE JOINER LOCKSTITCH 11/28/2024 10:53 PM WAISTLINE JOINER LOCKSTITCH Manisha Williamson NP LAB BLOOD ORDERABLES Final Result [facility] Department [place] [address] * (ABNORMAL) CBC with auto differential (11/28/2024 9:54 PM WAISTLINE JOINER LOCKSTITCH) WBC 8.1 3.8 - 9.9 K/cumm Hgb 8.7(L) 11.9 - 15.5 g/dL [facility] Hct 31.5(L) 35.6 - 45.5 % [facility] Plt 360 150 - 400 K/cumm [facility] MPV 10.9 9.1 - 12.3 fL [facility] RBC 3.84(L) 3.90 - 5.20 M/cumm [facility] MCV 82.0 81.3 - 96.4 fL [facility] MCH 22.7(L) 27.1 - 33.3 pg [facility] MCHC 27.6(L) 32.3 - 35.7 g/dL [facility] RDW CV 22.9(H) 11.1 - 14.9 % [facility] RDW SD 67.8(H) 35.7 - 48.1 fL [facility] NRBC abs 0.04(H) 0.00 - 0.01 K/cumm [facility] Blood 11/28/2024 9:54 PM WAISTLINE JOINER LOCKSTITCH 11/28/2024 10:53 PM WAISTLINE JOINER LOCKSTITCH Manisha Williamson NP LAB BLOOD ORDERABLES Final Result Performing Organization Address [facility] Co de Phone Number [facility] [place] [address] * (ABNORMAL) Protime-INR (11/28/2024 9:54 PM WAISTLINE JOINER LOCKSTITCH) PT 33.7(H) 9.7 - 13.0 sec INR 3.05(H) 0.90 - 1.20 [facility] Comment: Interpretive data Oral anticoagulant therapeutic ranges: Venous thromboembolism prophylaxis or treatment: 2.0-3.0 CARDIOLOGY Standard range: 2.0-3.0 High-intensity range: 2.5-3.5 Refer to indication-specific guidelines for appropriate target ranges for prosthetic heart valve replacement. Current interpretive data was last revised on 2019. Blood 11/28/2024 9:54 PM WAISTLINE JOINER LOCKSTITCH 11/28/2024 11:04 PM WAISTLINE JOINER LOCKSTITCH Hesham Madsen MD LAB BLOOD ORDERABLES Final R esult Performing Organization Address [facility] Co de Phone Number [facility] [place] [address] * (ABNORMAL) Basic metabolic panel (11/28/2024 9:54 PM WAISTLINE JOINER LOCKSTITCH) Sodium 141 135 - 145 mmol/L Potassium, pl 3.4 3.3 - 4.9 mmol/L [facility] Chloride 99 97 - 110 mmol/L [facility] CO2 33(H) 22 - 32 mmol/L [facility] Anion gap 9 2 - 15 mmol/L [facility] BUN 20 6 - 25 mg/dL [facility] Creatinine 0.45(L) 0.60 - 1.10 mg/dL [facility] Glucose 282(H) 70 - 199 mg/dL [facility] Comment: Interpretive Data Fasting glucose >/= [...] 2022. Calcium 8.4(L) 8.5 - 10.3 mg/dL [facility] Blood 11/28/2024 9:54 PM WAISTLINE JOINER LOCKSTITCH 11/28/2024 10:52 PM WAISTLINE JOINER LOCKSTITCH Manisha Williamson NP LAB BLOOD ORDERABLES Final Result Performing Organization Address City/[facility]/ZIP Co de Phone Number [facility] [place] [address] * (ABNORMAL) POCT glucose (11/28/2024 7:26 PM WAISTLINE JOINER LOCKSTITCH) Glucose, POC 319(H) 70 - 199 mg/dL Blood 11/28/2024 7:26 PM WAISTLINE JOINER LOCKSTITCH 11/28/2024 7:26 PM WAISTLINE JOINER LOCKSTITCH Hesham Madsen MD LAB POCT ORDERABLES - DEVICE Final Result [facility] [place] [address] * POCT glucose (11/28/2024 6:16 PM WAISTLINE JOINER LOCKSTITCH) Glucose, POC 115 70 - 199 mg/dL Blood 11/28/2024 6:16 PM WAISTLINE JOINER LOCKSTITCH 11/28/2024 6:16 PM WAISTLINE JOINER LOCKSTITCH Hesham Madsen MD LAB POCT ORDERABLES - DEVICE Final Result Performing Organization Address [facility] Co de Phone Number [facility] [place] [address] * POCT glucose (11/28/2024 5:01 PM WAISTLINE JOINER LOCKSTITCH) Glucose, POC 70 70 - 199 mg/dL Blood 11/28/2024 5:01 PM WAISTLINE JOINER LOCKSTITCH 11/28/2024 5:01 PM WAISTLINE JOINER LOCKSTITCH Result [facility] Hesham Madsen MD LAB POCT ORDERABLES - DEVICE Final Result Performing Organization Address [facility] de Phone Number [facility] [place] [address] * (ABNORMAL) POCT glucose (11/28/2024 11:19 AM WAISTLINE JOINER LOCKSTITCH) Glucose, POC 280(H) 70 - 199 mg/dL Comment:Glu2: RN/MD Notified Glucose comment 1 Glu2: RN/MD Notified [facility] Blood 11/28/2024 11:1 9 AM WAISTLINE JOINER LOCKSTITCH 11/28/2024 11:19 AM WAISTLINE JOINER LOCKSTITCH Result [facility] Hesham Madsen MD LAB POCT ORDERABLES - DEVICE Final Result Performing Organization Address [facility] Co de Phone Number [facility] [place] [address] * (ABNORMAL) POCT glucose (11/28/2024 7:20 AM WAISTLINE JOINER LOCKSTITCH) Glucose, POC 247(H) 70 - 199 mg/dL Comment:Glu2: RN/MD Notified Glucose comment 1 Glu2: RN/MD Notified [facility] Blood 11/28/2024 7:20 AM WAISTLINE JOINER LOCKSTITCH 11/28/2024 7:20 AM WAISTLINE JOINER LOCKSTITCH us Hesham Madsen MD LAB POCT ORDERABLES - DEVICE Final Result Performing Organization Address [facility] Co de Phone Number [facility] [place] [address] * (ABNORMAL) POCT glucose (11/28/2024 2:02 AM WAISTLINE JOINER LOCKSTITCH) Glucose, POC 303(H) 70 - 199 mg/dL Blood 11/28/2024 2:02 AM WAISTLINE JOINER LOCKSTITCH 11/28/2024 2:02 AM WAISTLINE JOINER LOCKSTITCH Hesham Madsen MD LAB POCT ORDERABLES - DEVICE Final Result Performing Organization Address [facility] de Phone Number [facility] [place] [address] * POCT glucose (11/27/2024 10:58 PM WAISTLINE JOINER LOCKSTITCH) Glucose, POC 150 70 - 199 mg/dL Blood 11/27/2024 10:5 8 PM WAISTLINE JOINER LOCKSTITCH 11/27/2024 10:58 PM WAISTLINE JOINER LOCKSTITCH Hesham Madsen MD LAB POCT ORDERABLES - DEVICE Final Result Performing Organization Address [facility] Co de Phone Number [facility] Department [place] [address] * eGFR (11/27/2024 9:47 PM WAISTLINE JOINER LOCKSTITCH) eGFR >90 >=60 mL/min/1. 73 m2 Comment: [...] last reviewed 2021. Blood 11/27/2024 9:47 PM WAISTLINE JOINER LOCKSTITCH 11/27/2024 10:39 PM WAISTLINE JOINER LOCKSTITCH Manisha Williamson NP LAB BLOOD ORDERABLES Final Result [facility] Department [place] [address] * Differential, auto (11/27/2024 9:47 PM WAISTLINE JOINER LOCKSTITCH) Neutrophil abs 5.9 1.5 - 6.5 K/cumm Imm gran abs 0.1 0.0 - 0.1 K/cumm [facility] Lymphocyte abs 1.3 0.8 - 3.3 K/cumm [facility] Monocyte abs 0.7 0.2 - 0.8 K/cumm [facility] Eosinophil abs 0.0 0.0 - 0.5 K/cumm [facility] Basophil abs 0.0 0.0 - 0.1 K/cumm [facility] Neutrophil pct 73.6 % [facility] Comment: Interpretive Data Percent cell count reference ranges are not reported, since discordance with absolute values may lead to misinterpretation of CBC data. Current Interpretive Data was last revised on 2018. Imm gran pct 1.5 % [facility] Comment: Interpretive Data Percent cell count reference ranges are not reported, since discordance with absolute values may lead to misinterpretation of CBC data. Current Interpretive Data was last revised on 2018. Lymphocyte pct 16.2 % [facility] Comment: Interpretive Data Percent cell count reference ranges are not reported, since discordance with absolute values may lead to misinterpretation of CBC data. Current Interpretive Data was last revised on 2018. Monocyte pct 8.2 % [facility] Comment: Interpretive Data Percent cell count reference ranges are not reported, since discordance with absolute values may lead to misinterpretation of CBC data. Current Interpretive Data was last revised on 2018. Eosinophil pct 0.4 % [facility] Comment: Interpretive Data Percent cell count reference ranges are not reported, since discordance with absolute values may lead to misinterpretation of CBC data. Current Interpretive Data was last revised on 2018. Basophil pct 0.1 % [facility] Comment: Interpretive Data Percent cell count reference ranges are not reported, since discordance with absolute values may lead to misinterpretation of CBC data. Current Interpretive Data was last revised on 2018. Blood 11/27/2024 9:47 PM WAISTLINE JOINER LOCKSTITCH 11/27/2024 10:05 PM WAISTLINE JOINER LOCKSTITCH Manisha Williamson DRENCHER LAB BLOOD ORDERABLES Final Result [facility] [place] [address] * (ABNORMAL) CBC with auto differential (11/27/2024 9:47 PM WAISTLINE JOINER LOCKSTITCH) WBC 8.1 3.8 - 9.9 K/cumm Hgb 8.4(L) 11.9 - 15.5 g/dL [facility] Hct 31.0(L) 35.6 - 45.5 % [facility] Plt 343 150 - 400 K/cumm [facility] MPV 10.4 9.1 - 12.3 fL [facility] RBC 3.73(L) 3.90 - 5.20 M/cumm [facility] MCV 83.1 81.3 - 96.4 fL [facility] MCH 22.5(L) 27.1 - 33.3 pg [facility] MCHC 27.1(L) 32.3 - 35.7 g/dL [facility] RDW CV 23.2(H) 11.1 - 14.9 % [facility] RDW SD 69.7(H) 35.7 - 48.1 fL [facility] NRBC abs 0.03(H) 0.00 - 0.01 K/cumm [facility] Blood 11/27/2024 9:47 PM WAISTLINE JOINER LOCKSTITCH 11/27/2024 10:05 PM WAISTLINE JOINER LOCKSTITCH Manisha Williamson NP LAB BLOOD ORDERABLES Final Result Performing Organization Address [facility] de Phone Number [facility] [place] [address] * (ABNORMAL) Protime-INR (11/27/2024 9:47 PM WAISTLINE JOINER LOCKSTITCH) PT 34.7(H) 9.7 - 13.0 sec INR 3.14(H) 0.90 - 1.20 [facility] Comment: Interpretive data Oral anticoagulant therapeutic ranges: Venous thromboembolism prophylaxis or treatment: 2.0-3.0 CARDIOLOGY Standard range: 2.0-3.0 High-intensity range: 2.5-3.5 Refer to indication-specific guidelines for appropriate target ranges for prosthetic heart valve replacement. Current interpretive data was last revised on 2019. Blood 11/27/2024 9:47 PM WAISTLINE JOINER LOCKSTITCH 11/27/2024 10:15 PM WAISTLINE JOINER LOCKSTITCH Result [facility] Hesham Madsen MD LAB BLOOD ORDERABLES Final R esult Performing Organization Address [facility] Co de Phone Number [facility] [place] [address] * (ABNORMAL) Basic metabolic panel (11/27/2024 9:47 PM WAISTLINE JOINER LOCKSTITCH) Sodium 144 135 - 145 mmol/L Potassium, pl 4.4 3.3 - 4.9 mmol/L [facility] Comment:Hemolyzed; Potassium value may be falsely elevated by as much as 0.6-1.0 mmol/L. Suggest redraw and reanalysis. Chloride 101 97 - 110 mmol/L [facility] CO2 35(H) 22 - 32 mmol/L [facility] Anion gap 8 2 - 15 mmol/L [facility] BUN 22 6 - 25 mg/dL [facility] Creatinine 0.44(L) 0.60 - 1.10 mg/dL [facility] Glucose 156 70 - 199 mg/dL [facility] Comment: Interpretive Data Fasting glucose >/= [...] 2022. Calcium 9.0 8.5 - 10.3 mg/dL [facility] Blood 11/27/2024 9:47 PM WAISTLINE JOINER LOCKSTITCH 11/27/2024 10:39 PM WAISTLINE JOINER LOCKSTITCH us Manisha Williamson NP LAB BLOOD ORDERABLES Final Result Performing Organization Address City/[facility]/ZIP Co de Phone Number [facility] [place] [address] * (ABNORMAL) POCT glucose (11/27/2024 8:31 PM WAISTLINE JOINER LOCKSTITCH) Glucose, POC 219(H) 70 - 199 mg/dL Blood 11/27/2024 8:31 PM WAISTLINE JOINER LOCKSTITCH 11/27/2024 8:31 PM WAISTLINE JOINER LOCKSTITCH Hesham Madsen MD LAB POCT ORDERABLES - DEVICE Final Result [facility] [place] [address] * POCT glucose (11/27/2024 4:59 PM WAISTLINE JOINER LOCKSTITCH) Glucose, POC 96 70 - 199 mg/dL Blood 11/27/2024 4:59 PM WAISTLINE JOINER LOCKSTITCH 11/27/2024 4:59 PM WAISTLINE JOINER LOCKSTITCH Hesham Madsen MD LAB POCT ORDERABLES - DEVICE Final Result Performing Organization Address [facility] de Phone Number [facility] [place] [address] * (ABNORMAL) POCT glucose (11/27/2024 11:42 AM WAISTLINE JOINER LOCKSTITCH) Glucose, POC 246(H) 70 - 199 mg/dL Comment:Glu2: RN/ Notified Glucose comment 1 Glu2: RN/MD Notified [facility] Blood 11/27/2024 11:4 2 AM WAISTLINE JOINER LOCKSTITCH 11/27/2024 11:42 AM WAISTLINE JOINER LOCKSTITCH Hesham Madsen MD LAB POCT ORDERABLES - DEVICE Final Result Performing Organization Address [facility] de Phone Number [facility] [place] [address] * (ABNORMAL) POCT glucose (11/27/2024 7:21 AM WAISTLINE JOINER LOCKSTITCH) Glucose, POC 238(H) 70 - 199 mg/dL Comment:Glu2: RN/ Notified Glucose comment 1 Glu2: RN/MD Notified [facility] Blood 11/27/2024 7:21 AM WAISTLINE JOINER LOCKSTITCH 11/27/2024 7:21 AM WAISTLINE JOINER LOCKSTITCH Hesham Madsen MD LAB POCT ORDERABLES - DEVICE Final Result Performing Organization Address [facility] [place] [address] * (ABNORMAL) POCT glucose (11/27/2024 4:10 AM WAISTLINE JOINER LOCKSTITCH) Glucose, POC 263(H) 70 - 199 mg/dL Blood 11/27/2024 4:10 AM WAISTLINE JOINER LOCKSTITCH 11/27/2024 4:10 AM WAISTLINE JOINER LOCKSTITCH us Hesham Madsen MD LAB POCT ORDERABLES - DEVICE Final Result Performing Organization Address [facility] de Phone Number [facility] [place] [employer] [place] [address] * POCT glucose (11/26/2024 11:38 PM WAISTLINE JOINER LOCKSTITCH) Glucose, POC 84 70 - 199 mg/dL Blood 11/26/2024 11:3 8 PM WAISTLINE JOINER LOCKSTITCH 11/26/2024 11:38 PM WAISTLINE JOINER LOCKSTITCH Result [facility] us Hesham Madsen MD LAB POCT ORDERABLES - DEVICE Final Result Performing Organization Address [facility] de Phone Number [facility] [place] [employer] [place] [address] * eGFR (11/26/2024 9:00 PM WAISTLINE JOINER LOCKSTITCH) Pathologist [facility] eGFR >90 >=60 mL/min/1. 73 m2 Comment: [...] last reviewed 2021. Blood 11/26/2024 9:00 PM WAISTLINE JOINER LOCKSTITCH 11/26/2024 9:50 PM WAISTLINE JOINER LOCKSTITCH Manisha Williamson NP LAB BLOOD ORDERABLES Final Result [facility] [place] [address] * (ABNORMAL) Differential, auto (11/26/2024 9:00 PM WAISTLINE JOINER LOCKSTITCH) Neutrophil abs 7.8(H) 1.5 - 6.5 K/cumm Imm gran abs 0.1 0.0 - 0.1 K/cumm [facility] Lymphocyte abs 1.0 0.8 - 3.3 K/cumm [facility] Monocyte abs 0.7 0.2 - 0.8 K/cumm [facility] Eosinophil abs 0.0 0.0 - 0.5 K/cumm [facility] Basophil abs 0.0 0.0 - 0.1 K/cumm [facility] Neutrophil pct 81.0 % [facility] Comment: Interpretive Data Percent cell count reference ranges are not reported, since discordance with absolute values may lead to misinterpretation of CBC data. Current Interpretive Data was last revised on 2018. Imm gran pct 1.1 % [facility] Comment: Interpretive Data Percent cell count reference ranges are not reported, since discordance with absolute values may lead to misinterpretation of CBC data. Current Interpretive Data was last revised on 2018. Lymphocyte pct 10.8 % [facility] Comment: Interpretive Data Percent cell count reference ranges are not reported, since discordance with absolute values may lead to misinterpretation of CBC data. Current Interpretive Data was last revised on 2018. Monocyte pct 7.0 % [facility] Comment: Interpretive Data Percent cell count reference ranges are not reported, since discordance with absolute values may lead to misinterpretation of CBC data. Current Interpretive Data was last revised on 2018. Eosinophil pct 0.1 % [facility] Comment: Interpretive Data Percent cell count reference ranges are not reported, since discordance with absolute values may lead to misinterpretation of CBC data. Current Interpretive Data was last revised on 2018. Basophil pct 0.0 % [facility] Comment: Interpretive Data Percent cell count reference ranges are not reported, since discordance with absolute values may lead to misinterpretation of CBC data. Current Interpretive Data was last revised on 2018. Blood 11/26/2024 9:00 PM WAISTLINE JOINER LOCKSTITCH 11/26/2024 9:46 PM WAISTLINE JOINER LOCKSTITCH Manisha Williamson NP LAB BLOOD ORDERABLES Final Result [facility] Department [place] [address] * (ABNORMAL) CBC with auto differential (11/26/2024 9:00 PM WAISTLINE JOINER LOCKSTITCH) WBC 9.6 3.8 - 9.9 K/cumm Hgb 9.6(L) 11.9 - 15.5 g/dL [facility] Hct 36.4 35.6 - 45.5 % [facility] Plt 450(H) 150 - 400 K/cumm [facility] MPV 10.8 9.1 - 12.3 fL [facility] RBC 4.31 3.90 - 5.20 M/cumm [facility] MCV 84.5 81.3 - 96.4 fL [facility] MCH 22.3(L) 27.1 - 33.3 pg [facility] MCHC 26.4(L) 32.3 - 35.7 g/dL [facility] RDW CV 23.5(H) 11.1 - 14.9 % [facility] RDW SD 71.5(H) 35.7 - 48.1 fL [facility] NRBC abs 0.02(H) 0.00 - 0.01 K/cumm [facility] Blood 11/26/2024 9:00 PM WAISTLINE JOINER LOCKSTITCH 11/26/2024 9:46 PM WAISTLINE JOINER LOCKSTITCH Manisha Williamson NP LAB BLOOD ORDERABLES Final Result Performing Organization Address [facility] de Phone Number [facility] [place] [address] * (ABNORMAL) Protime-INR (11/26/2024 9:00 PM WAISTLINE JOINER LOCKSTITCH) PT 30.8(H) 9.7 - 13.0 sec INR 2.79(H) 0.90 - 1.20 [facility] Comment: Interpretive data Oral anticoagulant therapeutic ranges: Venous thromboembolism prophylaxis or treatment: 2.0-3.0 CARDIOLOGY Standard range: 2.0-3.0 High-intensity range: 2.5-3.5 Refer to indication-specific guidelines for appropriate target ranges for prosthetic heart valve replacement. Current interpretive data was last revised on 2019. Blood 11/26/2024 9:00 PM WAISTLINE JOINER LOCKSTITCH 11/26/2024 9:50 PM WAISTLINE JOINER LOCKSTITCH Hesham Madsen MD LAB BLOOD ORDERABLES Final R esult Performing Organization Address [facility] de Phone Number [facility] Department [place] [address] * (ABNORMAL) Basic metabolic panel (11/26/2024 9:00 PM WAISTLINE JOINER LOCKSTITCH) Sodium 146(H) 135 - 145 mmol/L Potassium, pl 4.7 3.3 - 4.9 mmol/L [facility] Chloride 101 97 - 110 mmol/L [facility] CO2 37(H) 22 - 32 mmol/L [facility] Anion gap 8 2 - 15 mmol/L [facility] BUN 24 6 - 25 mg/dL [facility] Creatinine 0.55(L) 0.60 - 1.10 mg/dL [facility] Glucose 156 70 - 199 mg/dL [facility] Comment: Interpretive Data Fasting glucose >/= [...] 2022. Calcium 8.8 8.5 - 10.3 mg/dL [facility] Blood 11/26/2024 9:00 PM WAISTLINE JOINER LOCKSTITCH 11/26/2024 9:50 PM WAISTLINE JOINER LOCKSTITCH Manisha Williamson NP LAB BLOOD ORDERABLES Final Result Performing Organization Address City/[facility] Co de Phone Number [facility] [place] [address] * (ABNORMAL) POCT glucose (11/26/2024 8:11 PM WAISTLINE JOINER LOCKSTITCH) Glucose, POC 232(H) 70 - 199 mg/dL Blood 11/26/2024 8:11 PM WAISTLINE JOINER LOCKSTITCH 11/26/2024 8:11 PM WAISTLINE JOINER LOCKSTITCH Hesham Madsen MD LAB POCT ORDERABLES - DEVICE Final Result Performing Organization Address [facility] Co de Phone Number [facility] [place] [place] [address] * POCT glucose (11/26/2024 4:58 PM WAISTLINE JOINER LOCKSTITCH) Glucose, POC 144 70 - 199 mg/dL Blood 11/26/2024 4:58 PM WAISTLINE JOINER LOCKSTITCH 11/26/2024 4:58 PM WAISTLINE JOINER LOCKSTITCH Hesham Madsen MD LAB POCT ORDERABLES - DEVICE Final Result Performing Organization Address [facility] Co de Phone Number [facility] Department [place] [address] * (ABNORMAL) POCT glucose (11/26/2024 11:50 AM WAISTLINE JOINER LOCKSTITCH) Glucose, POC 273(H) 70 - 199 mg/dL Blood 11/26/2024 11:5 0 AM WAISTLINE JOINER LOCKSTITCH 11/26/2024 11:50 AM WAISTLINE JOINER LOCKSTITCH Hesham Madsen MD LAB POCT ORDERABLES - DEVICE Final Result Performing Organization Address [facility] Co de Phone Number [facility] [place] [employer] [place] [address] * (ABNORMAL) POCT glucose (11/26/2024 9:56 AM WAISTLINE JOINER LOCKSTITCH) Glucose, POC 305(H) 70 - 199 mg/dL Blood 11/26/2024 9:56 AM WAISTLINE JOINER LOCKSTITCH 11/26/2024 9:56 AM WAISTLINE JOINER LOCKSTITCH Hesham Madsen MD LAB POCT ORDERABLES - DEVICE Final Result Performing Organization Address [facility] Co de Phone Number [facility] [place] [employer] [place] [address] * (ABNORMAL) POCT glucose (11/26/2024 8:08 AM WAISTLINE JOINER LOCKSTITCH) Glucose, POC 381(H) 70 - 199 mg/dL Blood 11/26/2024 8:08 AM WAISTLINE JOINER LOCKSTITCH 11/26/2024 8:08 AM WAISTLINE JOINER LOCKSTITCH Hesham Madsen MD LAB POCT ORDERABLES - DEVICE Final Result Performing Organization Address City/[facility] de Phone Number [facility] [place] [employer] [place] [address] * POCT glucose (11/26/2024 4:08 AM WAISTLINE JOINER LOCKSTITCH) Glucose, POC 164 70 - 199 mg/dL Blood 11/26/2024 4:08 AM WAISTLINE JOINER LOCKSTITCH 11/26/2024 4:08 AM WAISTLINE JOINER LOCKSTITCH us Hesham Madsen MD LAB POCT ORDERABLES - DEVICE Final Result Performing Organization Address City/[facility] [place] [address] * (ABNORMAL) POCT glucose (11/26/2024 12:28 AM WAISTLINE JOINER LOCKSTITCH) Glucose, POC 223(H) 70 - 199 mg/dL Blood 11/26/2024 12:2 8 AM WAISTLINE JOINER LOCKSTITCH 11/26/2024 12:28 AM WAISTLINE JOINER LOCKSTITCH Hesham Madsen MD LAB POCT ORDERABLES - DEVICE Final Result Performing Organization Address [facility] [place] [address] * (ABNORMAL) Urinalysis reflex to microscopic and culture Urine (11/26/2024 12:16 AM WAISTLINE JOINER LOCKSTITCH) Color, ur Yellow Yellow Clarity, ur Clear Clear [facility] Specific gravity, ur 1.030 1.003 - 1.030 [facility] pH, urine 6.5 [facility] Comment: Interpretive Data U rine pH is affected by diet, medications, systemic acid-base disturbances, and renal tubular function. pH may affect urinary stone formation. For example, urine pH below 6.0 may help reduce the tendency for calcium phosphate stones and pH greater than 6.0 may reduce the tendency for uric acid stone formation. Source: [facility] [employer] Current Interpretive Data was last revised on 2017 Protein, ur ql 1+(A) Negative [facility] Glucose, ur ql 4+(A) Negative [facility] Ketones, ur Trace Negative [facility] Bilirubin, ur Negative Negative [facility] Blood, ur Negative Negative [facility] Urobilinogen, ur <2.0 <2.0 mg/dL [facility] Nitrite, ur Negative Negative [facility] Leukocyte esterase, ur 1+(A) Negative [facility] reflex comment Reflex to microscopic UA will be performed. [facility] Urine 11/26/2024 12:1 6 AM WAISTLINE JOINER LOCKSTITCH 11/26/2024 1:20 AM WAISTLINE JOINER LOCKSTITCH Hesham Madsen MD LAB MICROBIOLOGY - GENERAL O RDERABLES Final Result Performing Organization Address [facility] de Phone Number [facility] [place] [address] * (ABNORMAL) Urinalysis, microscopic only (11/26/2024 12:16 AM WAISTLINE JOINER LOCKSTITCH) WBC, ur 0-5 0 - 5 /HPF RBC, ur 3-5(A) 0 - 2 /HPF [facility] Epithelial cells, squamous, ur 1-5 0 - 5 /HPF [facility] Bacteria, ur Trace(A) [facility] Mucous, ur Present(A) [facility] Calcium oxalate crystals, ur 2+(A) [facility] Hyaline casts, ur 1-5 0 - 10 /LPF [facility] Culture Reflex Comment Reflex conditions for urine culture (WBC >10) not met. [facility] Urine 11/26/2024 12:1 6 AM WAISTLINE JOINER LOCKSTITCH 11/26/2024 1:20 AM WAISTLINE JOINER LOCKSTITCH Hesham Madsen MD LAB URINE ORDERABLES Final R esult Performing Organization Address [facility] de Phone Number [facility] [place] [address] * eGFR (11/26/2024 12:10 AM WAISTLINE JOINER LOCKSTITCH) eGFR >90 >=60 mL/min/1. 73 m2 Comment: [...] reviewed 2021. Blood 11/26/2024 12:1 0 AM WAISTLINE JOINER LOCKSTITCH 11/26/2024 1:23 AM WAISTLINE JOINER LOCKSTITCH Manisha Williamson NP LAB BLOOD ORDERABLES Final Result [facility] [place] [address] * Differential, auto (11/26/2024 12:10 AM WAISTLINE JOINER LOCKSTITCH) Neutrophil abs 6.0 1.5 - 6.5 K/cumm Imm gran abs 0.1 0.0 - 0.1 K/cumm [facility] Lymphocyte abs 1.3 0.8 - 3.3 K/cumm [facility] Monocyte abs 0.7 0.2 - 0.8 K/cumm [facility] Eosinophil abs 0.0 0.0 - 0.5 K/cumm [facility] Basophil abs 0.0 0.0 - 0.1 K/cumm [facility] Neutrophil pct 73.8 % [facility] Comment: Interpretive Data Percent cell count reference ranges are not reported, since discordance with absolute values may lead to misinterpretation of CBC data. Current Interpretive Data was last revised on 2018. Imm gran pct 1.2 % [facility] Comment: Interpretive Data Percent cell count reference ranges are not reported, since discordance with absolute values may lead to misinterpretation of CBC data. Current Interpretive Data was last revised on 2018. Lymphocyte pct 15.7 % [facility] Comment: Interpretive Data Percent cell count reference ranges are not reported, since discordance with absolute values may lead to misinterpretation of CBC data. Current Interpretive Data was last revised on 2018. Monocyte pct 9.1 % [facility] Comment: Interpretive Data Percent cell count reference ranges are not reported, since discordance with absolute values may lead to misinterpretation of CBC data. Current Interpretive Data was last revised on 2018. Eosinophil pct 0.1 % [facility] Comment: Interpretive Data Percent cell count reference ranges are not reported, since discordance with absolute values may lead to misinterpretation of CBC data. Current Interpretive Data was last revised on 2018. Basophil pct 0.1 % [facility] Comment: Interpretive Data Percent cell count reference ranges are not reported, since discordance with absolute values may lead to misinterpretation of CBC data. Current Interpretive Data was last revised on 2018. Blood 11/26/2024 12:1 0 AM WAISTLINE JOINER LOCKSTITCH 11/26/2024 1:23 AM WAISTLINE JOINER LOCKSTITCH Manisha Williamson NP LAB BLOOD ORDERABLES Final Result [facility] [place] [address] * (ABNORMAL) CBC with auto differential (11/26/2024 12:10 AM WAISTLINE JOINER LOCKSTITCH) WBC 8.1 3.8 - 9.9 K/cumm Hgb 9.2(L) 11.9 - 15.5 g/dL [facility] Hct 34.0(L) 35.6 - 45.5 % [facility] Plt 375 150 - 400 K/cumm [facility] MPV 10.2 9.1 - 12.3 fL [facility] RBC 4.10 3.90 - 5.20 M/cumm [facility] MCV 82.9 81.3 - 96.4 fL [facility] MCH 22.4(L) 27.1 - 33.3 pg [facility] MCHC 27.1(L) 32.3 - 35.7 g/dL [facility] RDW CV 24.0(H) 11.1 - 14.9 % [facility] RDW SD 71.1(H) 35.7 - 48.1 fL [facility] NRBC abs 0.00 0.00 - 0.01 K/cumm [facility] Blood 11/26/2024 12:1 0 AM WAISTLINE JOINER LOCKSTITCH 11/26/2024 1:23 AM WAISTLINE JOINER LOCKSTITCH Manisha Williamson NP LAB BLOOD ORDERABLES Final Result Performing Organization Address [facility]/ZIP Co de Phone Number [facility] Department [place] [address] * (ABNORMAL) Protime-INR (11/26/2024 12:10 AM WAISTLINE JOINER LOCKSTITCH) PT 26.5(H) 9.7 - 13.0 sec INR 2.41(H) 0.90 - 1.20 [facility] Comment: Interpretive data Oral anticoagulant therapeutic ranges: Venous thromboembolism prophylaxis or treatment: 2.0-3.0 CARDIOLOGY Standard range: 2.0-3.0 High-intensity range: 2.5-3.5 Refer to indication-specific guidelines for appropriate target ranges for prosthetic heart valve replacement. Current interpretive data was last revised on 2019. Blood 11/26/2024 12:1 0 AM WAISTLINE JOINER LOCKSTITCH 11/26/2024 1:47 AM WAISTLINE JOINER LOCKSTITCH Hesham Madsen MD LAB BLOOD ORDERABLES Final R esult [facility] [place] [address] * (ABNORMAL) Basic metabolic panel (11/26/2024 12:10 AM WAISTLINE JOINER LOCKSTITCH) Sodium 146(H) 135 - 145 mmol/L Potassium, pl 3.0(L) 3.3 - 4.9 mmol/L [facility] Chloride 102 97 - 110 mmol/L [facility] CO2 37(H) 22 - 32 mmol/L [facility] Anion gap 7 2 - 15 mmol/L [facility] BUN 22 6 - 25 mg/dL [facility] Creatinine 0.65 0.60 - 1.10 mg/dL [facility] Glucose 201(H) 70 - 199 mg/dL [facility] Comment: Interpretive Data Fasting glucose >/= [...] 2022. Calcium 8.8 8.5 - 10.3 mg/dL [facility] Blood 11/26/2024 12:1 0 AM WAISTLINE JOINER LOCKSTITCH 11/26/2024 1:23 AM WAISTLINE JOINER LOCKSTITCH us Manisha Williamson NP LAB BLOOD ORDERABLES Final Result [facility] [place] [address] * (ABNORMAL) POCT glucose (11/25/2024 10:40 PM WAISTLINE JOINER LOCKSTITCH) Glucose, POC 234(H) 70 - 199 mg/dL Blood 11/25/2024 10:4 0 PM WAISTLINE JOINER LOCKSTITCH 11/25/2024 10:40 PM WAISTLINE JOINER LOCKSTITCH Hesham Madsen MD LAB POCT ORDERABLES - DEVICE Final Result [facility] [place] [address] * (ABNORMAL) POCT glucose (11/25/2024 9:37 PM WAISTLINE JOINER LOCKSTITCH) Glucose, POC 287(H) 70 - 199 mg/dL Comment:Glu2: RN/MD Notified Glucose comment 1 Glu2: RN/MD Notified [facility] Blood 11/25/2024 9:37 PM WAISTLINE JOINER LOCKSTITCH 11/25/2024 9:37 PM WAISTLINE JOINER LOCKSTITCH Hesham Madsen MD LAB POCT ORDERABLES - DEVICE Final Result Performing Organization Address City/[facility] Co de Phone Number [facility] [place] [employer] [place] [address] * (ABNORMAL) POCT glucose (11/25/2024 8:11 PM WAISTLINE JOINER LOCKSTITCH) Glucose, POC 351(H) 70 - 199 mg/dL Blood 11/25/2024 8:11 PM WAISTLINE JOINER LOCKSTITCH 11/25/2024 8:11 PM WAISTLINE JOINER LOCKSTITCH Hesham Madsen MD LAB POCT ORDERABLES - DEVICE Final Result Performing Organization Address City/[facility] Co de Phone Number [facility] [place] [employer] [place] [address] * (ABNORMAL) POCT glucose (11/25/2024 5:09 PM WAISTLINE JOINER LOCKSTITCH) Glucose, POC 223(H) 70 - 199 mg/dL Blood 11/25/2024 5:09 PM WAISTLINE JOINER LOCKSTITCH 11/25/2024 5:09 PM WAISTLINE JOINER LOCKSTITCH Hesham Madsen MD LAB POCT ORDERABLES - DEVICE Final Result Performing Organization Address City/[facility] Co de Phone Number [facility] [place] [employer] [place] [address] * (ABNORMAL) POCT glucose (11/25/2024 2:32 PM WAISTLINE JOINER LOCKSTITCH) Glucose, POC 270(H) 70 - 199 mg/dL Blood 11/25/2024 2:32 PM WAISTLINE JOINER LOCKSTITCH 11/25/2024 2:32 PM WAISTLINE JOINER LOCKSTITCH Hesham Madsen MD LAB POCT ORDERABLES - DEVICE Final Result Performing Organization Address City/[facility] Co de Phone Number [facility] [place] [address] * (ABNORMAL) POCT glucose (11/25/2024 11:40 AM WAISTLINE JOINER LOCKSTITCH) Glucose, POC 324(H) 70 - 199 mg/dL Blood 11/25/2024 11:4 0 AM WAISTLINE JOINER LOCKSTITCH 11/25/2024 11:40 AM WAISTLINE JOINER LOCKSTITCH Hesham Madsen MD LAB POCT ORDERABLES - DEVICE Final Result Performing Organization Address [facility] Phone Number [facility] [place] [address] * XR Chest 1 View (11/25/2024 9:35 AM WAISTLINE JOINER LOCKSTITCH) Anatomical Region Laterality Modality Body, Chest N/A Computed Radiogr aphy 11/25/2024 11:5 8 AM WAISTLINE JOINER LOCKSTITCH Impressions 11/25/2024 11:59 AM WAISTLINE JOINER LOCKSTITCH Comparison is made to radiograph dated 11/22/2024. [...] Nereyda Medeiros M.D. Narrative 11/25/2024 11:59 AM WAISTLINE JOINER LOCKSTITCH EXAMINATION: 1 view chest radiograph Procedure Note Nreeyda Medeiros MD - 11/25/2024 EXAMINATION: 1 view [...] signed by: Nereyda Medeiros M.D. Ines Purdy DRENCHER IMG XR PROCEDURES Fin al Result * (ABNORMAL) POCT glucose (11/25/2024 7:51 AM WAISTLINE JOINER LOCKSTITCH) [facility] Glucose, POC 221(H) 70 - 199 mg/dL Blood 11/25/2024 7:51 AM WAISTLINE JOINER LOCKSTITCH 11/25/2024 7:51 AM WAISTLINE JOINER LOCKSTITCH Hesham Madsen MD LAB POCT ORDERABLES - DEVICE Final Result [facility] [place] [address] * eGFR (11/24/2024 10:08 PM WAISTLINE JOINER LOCKSTITCH) [facility] eGFR 86 >=60 mL/min/1. 73 m2 Comment: [...] reviewed 2021. Blood 11/24/2024 10:0 8 PM WAISTLINE JOINER LOCKSTITCH 11/24/2024 10:46 PM WAISTLINE JOINER LOCKSTITCH Manisha Williamson NP LAB BLOOD ORDERABLES Final Result [facility] [place] [address] * (ABNORMAL) Differential, auto (11/24/2024 10:08 PM WAISTLINE JOINER LOCKSTITCH) Neutrophil abs 6.8(H) 1.5 - 6.5 K/cumm Imm gran abs 0.1 0.0 - 0.1 K/cumm [facility] Lymphocyte abs 1.2 0.8 - 3.3 K/cumm [facility] Monocyte abs 0.7 0.2 - 0.8 K/cumm [facility] Eosinophil abs 0.0 0.0 - 0.5 K/cumm [facility] Basophil abs 0.0 0.0 - 0.1 K/cumm [facility] Neutrophil pct 77.4 % [facility] Comment: Interpretive Data Percent cell count reference ranges are not reported, since discordance with absolute values may lead to misinterpretation of CBC data. Current Interpretive Data was last revised on 2018. Imm gran pct 1.2 % [facility] Comment: Interpretive Data Percent cell count reference ranges are not reported, since discordance with absolute values may lead to misinterpretation of CBC data. Current Interpretive Data was last revised on 2018. Lymphocyte pct 13.6 % [facility] Comment: Interpretive Data Percent cell count reference ranges are not reported, since discordance with absolute values may lead to misinterpretation of CBC data. Current Interpretive Data was last revised on 2018. Monocyte pct 7.6 % [facility] Comment: Interpretive Data Percent cell count reference ranges are not reported, since discordance with absolute values may lead to misinterpretation of CBC data. Current Interpretive Data was last revised on 2018. Eosinophil pct 0.1 % [facility] Comment: Interpretive Data Percent cell count reference ranges are not reported, since discordance with absolute values may lead to misinterpretation of CBC data. Current Interpretive Data was last revised on 2018. Basophil pct 0.1 % [facility] Comment: Interpretive Data Percent cell count reference ranges are not reported, since discordance with absolute values may lead to misinterpretation of CBC data. Current Interpretive Data was last revised on 2018. Blood 11/24/2024 10:0 8 PM WAISTLINE JOINER LOCKSTITCH 11/24/2024 10:46 PM WAISTLINE JOINER LOCKSTITCH Manisha Williamson DRENCHER LAB BLOOD ORDERABLES Final Result [facility] [place] [address] * (ABNORMAL) CBC with auto differential (11/24/2024 10:08 PM WAISTLINE JOINER LOCKSTITCH) WBC 8.8 3.8 - 9.9 K/cumm Hgb 10.3(L) 11.9 - 15.5 g/dL [facility] Hct 38.0 35.6 - 45.5 % [facility] Plt 459(H) 150 - 400 K/cumm [facility] MPV 10.3 9.1 - 12.3 fL [facility] RBC 4.53 3.90 - 5.20 M/cumm [facility] MCV 83.9 81.3 - 96.4 fL [facility] MCH 22.7(L) 27.1 - 33.3 pg [facility] MCHC 27.1(L) 32.3 - 35.7 g/dL [facility] RDW CV 24.4(H) 11.1 - 14.9 % [facility] RDW SD 72.6(H) 35.7 - 48.1 fL [facility] NRBC abs 0.03(H) 0.00 - 0.01 K/cumm [facility] Blood 11/24/2024 10:0 8 PM WAISTLINE JOINER LOCKSTITCH 11/24/2024 10:46 PM WAISTLINE JOINER LOCKSTITCH Manisha Williamson NP LAB BLOOD ORDERABLES Final Result Performing Organization Address [facility] de Phone Number [facility] [place] [address] * (ABNORMAL) Protime-INR (11/24/2024 10:08 PM WAISTLINE JOINER LOCKSTITCH) Pathologist [facility] PT 22.3(H) 9.7 - 13.0 sec INR 2.04(H) 0.90 - 1.20 [facility] Comment: Interpretive data Oral anticoagulant therapeutic ranges: Venous thromboembolism prophylaxis or treatment: 2.0-3.0 CARDIOLOGY Standard range: 2.0-3.0 High-intensity range: 2.5-3.5 Refer to indication-specific guidelines for appropriate target ranges for prosthetic heart valve replacement. Current interpretive data was last revised on 2019. Blood 11/24/2024 10:0 8 PM WAISTLINE JOINER LOCKSTITCH 11/24/2024 10:42 PM WAISTLINE JOINER LOCKSTITCH Hesham Madsen MD LAB BLOOD ORDERABLES Final R esult Performing Organization Address City/[facility] Co de Phone Number [facility] [place] [address] * (ABNORMAL) Basic metabolic panel (11/24/2024 10:08 PM WAISTLINE JOINER LOCKSTITCH) Pathologist [facility] Sodium 145 135 - 145 mmol/L Potassium, pl 3.8 3.3 - 4.9 mmol/L [facility] Chloride 97 97 - 110 mmol/L [facility] CO2 36(H) 22 - 32 mmol/L [facility] Anion gap 12 2 - 15 mmol/L [facility] BUN 28(H) 6 - 25 mg/dL [facility] Creatinine 0.78 0.60 - 1.10 mg/dL [facility] Glucose 243(H) 70 - 199 mg/dL [facility] Comment: Interpretive Data Fasting glucose >/= [...] 2022. Calcium 9.0 8.5 - 10.3 mg/dL [facility] Blood 11/24/2024 10:0 8 PM WAISTLINE JOINER LOCKSTITCH 11/24/2024 10:46 PM WAISTLINE JOINER LOCKSTITCH us Manisha Williamson NP LAB BLOOD ORDERABLES Final Result Performing Organization Address City/[facility]/ZIP Co de Phone Number [facility] [place] [address] * (ABNORMAL) POCT glucose (11/24/2024 7:52 PM WAISTLINE JOINER LOCKSTITCH) [facility] Glucose, POC 317(H) 70 - 199 mg/dL Comment:Glu2: RN/MD Notified Glucose comment 1 Glu2: RN/MD Notified [facility] Blood 11/24/2024 7:52 PM WAISTLINE JOINER LOCKSTITCH 11/24/2024 7:52 PM WAISTLINE JOINER LOCKSTITCH Hesham Madsen MD LAB POCT ORDERABLES - DEVICE Final Result [facility] [place] [address] * POCT glucose (11/24/2024 5:06 PM WAISTLINE JOINER LOCKSTITCH) Glucose, POC 136 70 - 199 mg/dL Blood 11/24/2024 5:06 PM WAISTLINE JOINER LOCKSTITCH 11/24/2024 5:06 PM WAISTLINE JOINER LOCKSTITCH Result [facility] us Hesham Madsen MD LAB POCT ORDERABLES - DEVICE Final Result Performing Organization Address [facility] de Phone Number [facility] [place] [employer] [place] [address] * POCT glucose (11/24/2024 4:01 PM WAISTLINE JOINER LOCKSTITCH) Glucose, POC 151 70 - 199 mg/dL Blood 11/24/2024 4:01 PM WAISTLINE JOINER LOCKSTITCH 11/24/2024 4:01 PM WAISTLINE JOINER LOCKSTITCH Result [facility] us Hesham Madsen MD LAB POCT ORDERABLES - DEVICE Final Result Performing Organization Address [facility] [place] [address] * (ABNORMAL) POCT glucose (11/24/2024 3:01 PM WAISTLINE JOINER LOCKSTITCH) Glucose, POC 242(H) 70 - 199 mg/dL Blood 11/24/2024 3:01 PM WAISTLINE JOINER LOCKSTITCH 11/24/2024 3:01 PM WAISTLINE JOINER LOCKSTITCH Result [facility] us Hesham Madsen MD LAB POCT ORDERABLES - DEVICE Final Result Performing Organization Address [facility] [place] [address] * (ABNORMAL) POCT glucose (11/24/2024 1:57 PM WAISTLINE JOINER LOCKSTITCH) Glucose, POC 384(H) 70 - 199 mg/dL Blood 11/24/2024 1:57 PM WAISTLINE JOINER LOCKSTITCH 11/24/2024 1:57 PM WAISTLINE JOINER LOCKSTITCH Hesham Madsen MD LAB POCT ORDERABLES - DEVICE Final Result Performing Organization Address [facility] de Phone Number [facility] [place] [address] * (ABNORMAL) POCT glucose (11/24/2024 12:16 PM WAISTLINE JOINER LOCKSTITCH) [facility] Glucose, POC 305(H) 70 - 199 mg/dL Comment:Glu2: RN/MD Notified Glucose comment 1 Glu2: RN/MD Notified [facility] Blood 11/24/2024 12:1 6 PM WAISTLINE JOINER LOCKSTITCH 11/24/2024 12:16 PM WAISTLINE JOINER LOCKSTITCH Hesham Madsen MD LAB POCT ORDERABLES - DEVICE Final Result Performing Organization Address [facility] de Phone Number [facility] [place] [address] * (ABNORMAL) POCT glucose (11/24/2024 7:25 AM WAISTLINE JOINER LOCKSTITCH) [facility] Glucose, POC 231(H) 70 - 199 mg/dL Blood 11/24/2024 7:25 AM WAISTLINE JOINER LOCKSTITCH 11/24/2024 7:25 AM WAISTLINE JOINER LOCKSTITCH Hesham Madsen MD LAB POCT ORDERABLES - DEVICE Final Result Performing Organization Address [facility] de Phone Number [facility] [place] [address] * eGFR (11/23/2024 10:31 PM WAISTLINE JOINER LOCKSTITCH) [facility] eGFR >90 >=60 mL/min/1. 73 m2 [...] reviewed 2021. Blood 11/23/2024 10:3 1 PM WAISTLINE JOINER LOCKSTITCH 11/23/2024 11:38 PM WAISTLINE JOINER LOCKSTITCH Manisha Williamson NP LAB BLOOD ORDERABLES Final Result [facility] [place] [address] * Differential, auto (11/23/2024 10:31 PM WAISTLINE JOINER LOCKSTITCH) Neutrophil abs 5.7 1.5 - 6.5 K/cumm Imm gran abs 0.1 0.0 - 0.1 K/cumm [facility] Lymphocyte abs 1.3 0.8 - 3.3 K/cumm [facility] Monocyte abs 0.8 0.2 - 0.8 K/cumm [facility] Eosinophil abs 0.0 0.0 - 0.5 K/cumm [facility] Basophil abs 0.0 0.0 - 0.1 K/cumm [facility] Neutrophil pct 71.7 % [facility] Comment: Interpretive Data Percent cell count reference ranges are not reported, since discordance with absolute values may lead to misinterpretation of CBC data. Current Interpretive Data was last revised on 2018. Imm gran pct 1.4 % [facility] Comment: Interpretive Data Percent cell count reference ranges are not reported, since discordance with absolute values may lead to misinterpretation of CBC data. Current Interpretive Data was last revised on 2018. Lymphocyte pct 16.7 % [facility] Comment: Interpretive Data Percent cell count reference ranges are not reported, since discordance with absolute values may lead to misinterpretation of CBC data. Current Interpretive Data was last revised on 2018. Monocyte pct 10.1 % [facility] Comment: Interpretive Data Percent cell count reference ranges are not reported, since discordance with absolute values may lead to misinterpretation of CBC data. Current Interpretive Data was last revised on 2018. Eosinophil pct 0.1 % [facility] Comment: Interpretive Data Percent cell count reference ranges are not reported, since discordance with absolute values may lead to misinterpretation of CBC data. Current Interpretive Data was last revised on 2018. Basophil pct 0.0 % [facility] Comment: Interpretive Data Percent cell count reference ranges are not reported, since discordance with absolute values may lead to misinterpretation of CBC data. Current Interpretive Data was last revised on 2018. Blood 11/23/2024 10:3 1 PM WAISTLINE JOINER LOCKSTITCH 11/23/2024 11:39 PM WAISTLINE JOINER LOCKSTITCH Manisha Williamson DRENCHER LAB BLOOD ORDERABLES Final Result [facility] [place] [address] * (ABNORMAL) CBC with auto differential (11/23/2024 10:31 PM WAISTLINE JOINER LOCKSTITCH) WBC 7.9 3.8 - 9.9 K/cumm Hgb 9.3(L) 11.9 - 15.5 g/dL [facility] Hct 35.0(L) 35.6 - 45.5 % [facility] Plt 419(H) 150 - 400 K/cumm [facility] MPV 10.4 9.1 - 12.3 fL [facility] RBC 4.22 3.90 - 5.20 M/cumm [facility] MCV 82.9 81.3 - 96.4 fL [facility] MCH 22.0(L) 27.1 - 33.3 pg [facility] MCHC 26.6(L) 32.3 - 35.7 g/dL [facility] RDW CV 24.4(H) 11.1 - 14.9 % [facility] RDW SD 72.2(H) 35.7 - 48.1 fL [facility] NRBC abs 0.02(H) 0.00 - 0.01 K/cumm [facility] Blood 11/23/2024 10:3 1 PM WAISTLINE JOINER LOCKSTITCH 11/23/2024 11:39 PM WAISTLINE JOINER LOCKSTITCH Manisha Williamson NP LAB BLOOD ORDERABLES Final Result Performing Organization Address [facility] Co de Phone Number [facility] [place] [employer] [place] [address] * (ABNORMAL) Protime-INR (11/23/2024 10:31 PM WAISTLINE JOINER LOCKSTITCH) PT 18.4(H) 9.7 - 13.0 sec INR 1.69(H) 0.90 - 1.20 [facility] Comment: Interpretive data Oral anticoagulant therapeutic ranges: Venous thromboembolism prophylaxis or treatment: 2.0-3.0 CARDIOLOGY Standard range: 2.0-3.0 High-intensity range: 2.5-3.5 Refer to indication-specific guidelines for appropriate target ranges for prosthetic heart valve replacement. Current interpretive data was last revised on 2019. Blood 11/23/2024 10:3 1 PM WAISTLINE JOINER LOCKSTITCH 11/23/2024 11:47 PM WAISTLINE JOINER LOCKSTITCH Hesham Madsen MD LAB BLOOD ORDERABLES Final R esult Performing Organization Address City/[facility]/ZIP Co de Phone Number [facility] [place] [place] [address] * (ABNORMAL) Basic metabolic panel (11/23/2024 10:31 PM WAISTLINE JOINER LOCKSTITCH) Sodium 148(H) 135 - 145 mmol/L Potassium, pl 3.7 3.3 - 4.9 mmol/L [facility] Chloride 103 97 - 110 mmol/L [facility] CO2 35(H) 22 - 32 mmol/L [facility] Anion gap 10 2 - 15 mmol/L [facility] BUN 22 6 - 25 mg/dL [facility] Creatinine 0.51(L) 0.60 - 1.10 mg/dL [facility] Glucose 185 70 - 199 mg/dL [facility] Comment: Interpretive Data Fasting glucose >/= [...] 2022. Calcium 8.5 8.5 - 10.3 mg/dL [facility] Blood 11/23/2024 10:3 1 PM WAISTLINE JOINER LOCKSTITCH 11/23/2024 11:38 PM WAISTLINE JOINER LOCKSTITCH us Manisha Williamson NP LAB BLOOD ORDERABLES Final Result [facility] [place] [address] * POCT glucose (11/23/2024 10:13 PM WAISTLINE JOINER LOCKSTITCH) Glucose, POC 175 70 - 199 mg/dL Blood 11/23/2024 10:1 3 PM WAISTLINE JOINER LOCKSTITCH 11/23/2024 10:13 PM WAISTLINE JOINER LOCKSTITCH Hesham Madsen MD LAB POCT ORDERABLES - DEVICE Final Result Performing Organization Address City/[facility]/ZIP Co de Phone Number [facility] [place] [address] * (ABNORMAL) POCT glucose (11/23/2024 8:11 PM WAISTLINE JOINER LOCKSTITCH) Glucose, POC 205(H) 70 - 199 mg/dL Blood 11/23/2024 8:11 PM WAISTLINE JOINER LOCKSTITCH 11/23/2024 8:11 PM WAISTLINE JOINER LOCKSTITCH Hesham Madsen MD LAB POCT ORDERABLES - DEVICE Final Result Performing Organization Address [facility] de Phone Number [facility] [place] [employer] [place] [address] * (ABNORMAL) POCT glucose (11/23/2024 6:23 PM WAISTLINE JOINER LOCKSTITCH) Glucose, POC 363(H) 70 - 199 mg/dL Blood 11/23/2024 6:23 PM WAISTLINE JOINER LOCKSTITCH 11/23/2024 6:23 PM WAISTLINE JOINER LOCKSTITCH Hesham Madsen MD LAB POCT ORDERABLES - DEVICE Final Result Performing Organization Address [facility] de Phone Number [facility] [place] [employer] [place] [address] * (ABNORMAL) POCT glucose (11/23/2024 4:35 PM WAISTLINE JOINER LOCKSTITCH) Glucose, POC 340(H) 70 - 199 mg/dL Blood 11/23/2024 4:35 PM WAISTLINE JOINER LOCKSTITCH 11/23/2024 4:35 PM WAISTLINE JOINER LOCKSTITCH Result [facility] Hesham Madsen MD LAB POCT ORDERABLES - DEVICE Final Result Performing Organization Address [facility] [place] [address] * (ABNORMAL) POCT glucose (11/23/2024 4:34 PM WAISTLINE JOINER LOCKSTITCH) Glucose, POC 365(H) 70 - 199 mg/dL Blood 11/23/2024 4:34 PM WAISTLINE JOINER LOCKSTITCH 11/23/2024 4:34 PM WAISTLINE JOINER LOCKSTITCH us Hesham Madsen MD LAB POCT ORDERABLES - DEVICE Final Result Performing Organization Address [facility] de Phone Number [facility] [place] [address] * (ABNORMAL) POCT glucose (11/23/2024 12:28 PM WAISTLINE JOINER LOCKSTITCH) Glucose, POC 209(H) 70 - 199 mg/dL Blood 11/23/2024 12:2 8 PM WAISTLINE JOINER LOCKSTITCH 11/23/2024 12:28 PM WAISTLINE JOINER LOCKSTITCH Hesham Madsen MD LAB POCT ORDERABLES - DEVICE Final Result Performing Organization Address [facility] de Phone Number [facility] [place] [address] * (ABNORMAL) POCT glucose (11/23/2024 8:07 AM WAISTLINE JOINER LOCKSTITCH) Glucose, POC 227(H) 70 - 199 mg/dL Blood 11/23/2024 8:07 AM WAISTLINE JOINER LOCKSTITCH 11/23/2024 8:07 AM WAISTLINE JOINER LOCKSTITCH Result [facility] Hesham Madesn MD LAB POCT ORDERABLES - DEVICE Final Result Performing Organization Address [facility] de Phone Number [facility] [place] [address] * (ABNORMAL) POCT glucose (11/22/2024 8:03 PM WAISTLINE JOINER LOCKSTITCH) Glucose, POC 324(H) 70 - 199 mg/dL Blood 11/22/2024 8:03 PM WAISTLINE JOINER LOCKSTITCH 11/22/2024 8:03 PM WAISTLINE JOINER LOCKSTITCH us Hesham Madsen MD LAB POCT ORDERABLES - DEVICE Final Result Performing Organization Address [facility]/ZIP Co de Phone Number [facility] [place] [address] * Differential, auto (11/22/2024 7:05 PM WAISTLINE JOINER LOCKSTITCH) Neutrophil abs 6.0 1.5 - 6.5 K/cumm Imm gran abs 0.1 0.0 - 0.1 K/cumm [facility] Lymphocyte abs 0.9 0.8 - 3.3 K/cumm [facility] Monocyte abs 0.7 0.2 - 0.8 K/cumm [facility] Eosinophil abs 0.0 0.0 - 0.5 K/cumm [facility] Basophil abs 0.0 0.0 - 0.1 K/cumm [facility] Neutrophil pct 77.6 % [facility] Comment: Interpretive Data Percent cell count reference ranges are not reported, since discordance with absolute values may lead to misinterpretation of CBC data. Current Interpretive Data was last revised on 2018. Imm gran pct 1.2 % [facility] Comment: Interpretive Data Percent cell count reference ranges are not reported, since discordance with absolute values may lead to misinterpretation of CBC data. Current Interpretive Data was last revised on 2018. Lymphocyte pct 12.2 % [facility] Comment: Interpretive Data Percent cell count reference ranges are not reported, since discordance with absolute values may lead to misinterpretation of CBC data. Current Interpretive Data was last revised on 2018. Monocyte pct 8.8 % [facility] Comment: Interpretive Data Percent cell count reference ranges are not reported, since discordance with absolute values may lead to misinterpretation of CBC data. Current Interpretive Data was last revised on 2018. Eosinophil pct 0.1 % [facility] Comment: Interpretive Data Percent cell count reference ranges are not reported, since discordance with absolute values may lead to misinterpretation of CBC data. Current Interpretive Data was last revised on 2018. Basophil pct 0.1 % [facility] Comment: Interpretive Data Percent cell count reference ranges are not reported, since discordance with absolute values may lead to misinterpretation of CBC data. Current Interpretive Data was last revised on 2018. Blood 11/22/2024 7:05 PM WAISTLINE JOINER LOCKSTITCH 11/22/2024 8:14 PM WAISTLINE JOINER LOCKSTITCH Manisha Williamson NP LAB BLOOD ORDERABLES Final Result Performing Organization Address [facility] Co de Phone Number [facility] [place] [address] * (ABNORMAL) CBC with auto differential (11/22/2024 7:05 PM WAISTLINE JOINER LOCKSTITCH) [facility] WBC 7.7 3.8 - 9.9 K/cumm Hgb 9.6(L) 11.9 - 15.5 g/dL [facility] Hct 35.5(L) 35.6 - 45.5 % [facility] Plt 436(H) 150 - 400 K/cumm [facility] MPV 10.6 9.1 - 12.3 fL [facility] RBC 4.26 3.90 - 5.20 M/cumm [facility] MCV 83.3 81.3 - 96.4 fL [facility] MCH 22.5(L) 27.1 - 33.3 pg [facility] MCHC 27.0(L) 32.3 - 35.7 g/dL [facility] RDW CV 24.5(H) 11.1 - 14.9 % [facility] RDW SD 72.1(H) 35.7 - 48.1 fL [facility] NRBC abs 0.02(H) 0.00 - 0.01 K/cumm [facility] Blood 11/22/2024 7:05 PM WAISTLINE JOINER LOCKSTITCH 11/22/2024 8:14 PM WAISTLINE JOINER LOCKSTITCH Manisha Williamson NP LAB BLOOD ORDERABLES Final Result [facility] [place] [address] * (ABNORMAL) Troponin I high-sensitivity (11/22/2024 7:04 PM WAISTLINE JOINER LOCKSTITCH) Trop I hs 61(H) <=17 ng/L Comment: Interpretive Data For further hscTnI resources including the diagnostic algorithm and an aid in interpretation, copy and paste this link: [email or web address] Current Interpretive Data last revised 2020. Blood 11/22/2024 7:04 PM WAISTLINE JOINER LOCKSTITCH 11/22/2024 8:13 PM WAISTLINE JOINER LOCKSTITCH us Lizett Contreras MD LAB BLOOD ORDERABLES Fin al Result Performing Organization Address City/[facility] Co de Phone Number [facility] Department [place] [address] * eGFR (11/22/2024 7:04 PM WAISTLINE JOINER LOCKSTITCH) eGFR >90 >=60 mL/min/1. 73 m2 Comment: [...] last reviewed 2021. Blood 11/22/2024 7:04 PM WAISTLINE JOINER LOCKSTITCH 11/22/2024 7:27 PM WAISTLINE JOINER LOCKSTITCH us Hesham Madsen MD LAB BLOOD ORDERABLES Final R esult Performing Organization Address City/[facility]/ZIP Co de Phone Number [facility] [place] [address] * aPTT (11/22/2024 7:04 PM WAISTLINE JOINER LOCKSTITCH) aPTT 31 28 - 38 sec Comment: Interpretive Data Heparin therapeutic range: 66.0 - 100.0 seconds. Range based on correlation with therapeutic heparin activity range of 0.3 - 0.7 Units/mL. Current interpretive data was last revised on 2023. Blood 11/22/2024 7:04 PM WAISTLINE JOINER LOCKSTITCH 11/22/2024 7:15 PM WAISTLINE JOINER LOCKSTITCH Hesham Madsen MD LAB BLOOD ORDERABLES Final R esult Performing Organization Address [facility] [place] [address] * Protime-INR (11/22/2024 7:04 PM WAISTLINE JOINER LOCKSTITCH) Pathologist [facility] PT 11.8 9.7 - 13.0 sec INR 1.09 0.90 - 1.20 [facility] Comment: Interpretive data Oral anticoagulant therapeutic ranges: Venous thromboembolism prophylaxis or treatment: 2.0-3.0 CARDIOLOGY Standard range: 2.0-3.0 High-intensity range: 2.5-3.5 Refer to indication-specific guidelines for appropriate target ranges for prosthetic heart valve replacement. Current interpretive data was last revised on 2019. Blood 11/22/2024 7:04 PM WAISTLINE JOINER LOCKSTITCH 11/22/2024 7:15 PM WAISTLINE JOINER LOCKSTITCH Hesham Madsen MD LAB BLOOD ORDERABLES Final R esult Performing Organization Address [facility] [place] [address] * Phosphorus (11/22/2024 7:04 PM WAISTLINE JOINER LOCKSTITCH) Phosphorus, pl 2.5 2.3 - 4.5 mg/dL Blood 11/22/2024 7:04 PM WAISTLINE JOINER LOCKSTITCH 11/22/2024 7:15 PM WAISTLINE JOINER LOCKSTITCH Lizett Contreras MD LAB BLOOD ORDERABLES Fin al Result Performing Organization Address City/[facility]/ZIP Co de Phone Number [facility] [place] [address] * Magnesium (11/22/2024 7:04 PM WAISTLINE JOINER LOCKSTITCH) [facility] Magnesium 2.0 1.4 - 2.5 mg/dL Blood 11/22/2024 7:04 PM WAISTLINE JOINER LOCKSTITCH 11/22/2024 7:15 PM WAISTLINE JOINER LOCKSTITCH Lizett Contreras MD LAB BLOOD ORDERABLES Fin al Result Performing Organization Address [facility] de Phone Number [facility] [place] [address] * (ABNORMAL) Basic metabolic panel (11/22/2024 7:04 PM WAISTLINE JOINER LOCKSTITCH) [facility] Sodium 145 135 - 145 mmol/L Potassium, pl 3.7 3.3 - 4.9 mmol/L [facility] Chloride 101 97 - 110 mmol/L [facility] CO2 32 22 - 32 mmol/L [facility] Anion gap 12 2 - 15 mmol/L [facility] BUN 22 6 - 25 mg/dL [facility] Creatinine 0.49(L) 0.60 - 1.10 mg/dL [facility] Glucose 314(H) 70 - 199 mg/dL [facility] Comment: Interpretive Data Fasting glucose >/= [...] 2022. Calcium 8.3(L) 8.5 - 10.3 mg/dL [facility] Blood 11/22/2024 7:04 PM WAISTLINE JOINER LOCKSTITCH 11/22/2024 7:15 PM WAISTLINE JOINER LOCKSTITCH Hesham Madsen MD LAB BLOOD ORDERABLES Final R esult Performing Organization Address City/[facility] Co de Phone Number [facility] [place] [employer] [place] [address] * (ABNORMAL) POCT glucose (11/22/2024 6:56 PM WAISTLINE JOINER LOCKSTITCH) Glucose, POC 316(H) 70 - 199 mg/dL Blood 11/22/2024 6:56 PM WAISTLINE JOINER LOCKSTITCH 11/22/2024 6:56 PM WAISTLINE JOINER LOCKSTITCH Hesham Madsen MD LAB POCT ORDERABLES - DEVICE Final Result Performing Organization Address [facility] Co de Phone Number [facility] [place] [employer] [place] [address] * (ABNORMAL) POCT glucose (11/22/2024 5:27 PM WAISTLINE JOINER LOCKSTITCH) Glucose, POC 225(H) 70 - 199 mg/dL Blood 11/22/2024 5:27 PM WAISTLINE JOINER LOCKSTITCH 11/22/2024 5:27 PM WAISTLINE JOINER LOCKSTITCH Hesham Madsen MD LAB POCT ORDERABLES - DEVICE Final Result Performing Organization Address City/[facility] Co de Phone Number [facility] [place] [employer] [place] [address] * XR Chest 1 View (11/22/2024 3:32 PM WAISTLINE JOINER LOCKSTITCH) Anatomical Region Laterality Modality Body, Chest N/A Digital Radiogra phy 11/22/2024 4:33 PM WAISTLINE JOINER LOCKSTITCH Impressions 11/22/2024 5:43 PM WAISTLINE JOINER LOCKSTITCH Comparison is made to radiograph dated 11/09/2024. [...] Cesar Bryan M.D. Narrative 11/22/2024 5:43 PM WAISTLINE JOINER LOCKSTITCH EXAMINATION: 1 view chest radiograph Procedure Note [...] * (ABNORMAL) POCT glucose (11/22/2024 2:42 PM WAISTLINE JOINER LOCKSTITCH) Glucose, POC 216(H) 70 - 199 mg/dL Blood 11/22/2024 2:42 PM WAISTLINE JOINER LOCKSTITCH 11/22/2024 2:42 PM WAISTLINE JOINER LOCKSTITCH us Hesham Madsen MD LAB POCT ORDERABLES - DEVICE Final Result Performing Organization Address [facility] [place] [address] * (ABNORMAL) POCT glucose (11/22/2024 11:57 AM WAISTLINE JOINER LOCKSTITCH) Glucose, POC 279(H) 70 - 199 mg/dL Blood 11/22/2024 11:5 7 AM WAISTLINE JOINER LOCKSTITCH 11/22/2024 11:57 AM WAISTLINE JOINER LOCKSTITCH us Hesham Madsen MD LAB POCT ORDERABLES - DEVICE Final Result Performing Organization Address [facility] de Phone Number [facility] [place] [address] * POCT glucose (11/22/2024 8:10 AM WAISTLINE JOINER LOCKSTITCH) Glucose, POC 194 70 - 199 mg/dL Blood 11/22/2024 8:10 AM WAISTLINE JOINER LOCKSTITCH 11/22/2024 8:10 AM WAISTLINE JOINER LOCKSTITCH Hesham Madsen MD LAB POCT ORDERABLES - DEVICE Final Result Performing Organization Address [facility] de Phone Number [facility] [place] [address] * (ABNORMAL) aPTT (11/22/2024 12:22 AM WAISTLINE JOINER LOCKSTITCH) aPTT 96(H) 28 - 38 sec Comment: Interpretive Data Heparin therapeutic range: 66.0 - 100.0 seconds. Range based on correlation with therapeutic heparin activity range of 0.3 - 0.7 Units/mL. Current interpretive data was last revised on 2023. Blood 11/22/2024 12:2 2 AM WAISTLINE JOINER LOCKSTITCH 11/22/2024 1:07 AM WAISTLINE JOINER LOCKSTITCH Narrative [facility] - 11/22/2024 1:18 AM WAISTLINE JOINER LOCKSTITCH STAT PTT timing: - Draw 6 hours [...] BLOOD ORDERABLES Final Result [facility] Department [place] [address] * eGFR (2024 10:06 PM WAISTLINE JOINER LOCKSTITCH) Pathologist [facility] eGFR >90 >=60 mL/min/1. 73 m2 Comment: [...] reviewed 2021. Blood 2024 10:0 6 PM WAISTLINE JOINER LOCKSTITCH 2024 11:26 PM WAISTLINE JOINER LOCKSTITCH us Manisha Nettie Greubel DRENCHER LAB BLOOD ORDERABLES Final Result [facility] [place] [address] * Differential, auto (2024 10:06 PM WAISTLINE JOINER LOCKSTITCH) Neutrophil abs 5.6 1.5 - 6.5 K/cumm Imm gran abs 0.1 0.0 - 0.1 K/cumm [facility] Lymphocyte abs 1.4 0.8 - 3.3 K/cumm [facility] Monocyte abs 0.8 0.2 - 0.8 K/cumm [facility] Eosinophil abs 0.0 0.0 - 0.5 K/cumm [facility] Basophil abs 0.0 0.0 - 0.1 K/cumm [facility] Neutrophil pct 70.1 % [facility] Comment: Interpretive Data Percent cell count reference ranges are not reported, since discordance with absolute values may lead to misinterpretation of CBC data. Current Interpretive Data was last revised on 2018. Imm gran pct 1.0 % [facility] Comment: Interpretive Data Percent cell count reference ranges are not reported, since discordance with absolute values may lead to misinterpretation of CBC data. Current Interpretive Data was last revised on 2018. Lymphocyte pct 17.9 % [facility] Comment: Interpretive Data Percent cell count reference ranges are not reported, since discordance with absolute values may lead to misinterpretation of CBC data. Current Interpretive Data was last revised on 2018. Monocyte pct 10.6 % [facility] Comment: Interpretive Data Percent cell count reference ranges are not reported, since discordance with absolute values may lead to misinterpretation of CBC data. Current Interpretive Data was last revised on 2018. Eosinophil pct 0.3 % [facility] Comment: Interpretive Data Percent cell count reference ranges are not reported, since discordance with absolute values may lead to misinterpretation of CBC data. Current Interpretive Data was last revised on 2018. Basophil pct 0.1 % [facility] Comment: Interpretive Data Percent cell count reference ranges are not reported, since discordance with absolute values may lead to misinterpretation of CBC data. Current Interpretive Data was last revised on 2018. Blood 2024 10:0 6 PM WAISTLINE JOINER LOCKSTITCH 2024 11:29 PM WAISTLINE JOINER LOCKSTITCH Manisha Williamson DRENCHER LAB BLOOD ORDERABLES Final Result Performing Organization Address City/[facility]/[place] [address] * Critical Result Callback Hematology (2024 10:06 PM WAISTLINE JOINER LOCKSTITCH) Date Notified [id number] Time Notified 5 [facility] TestName aPTT [facility] Called/Read Back Bobbi Sherine [facility] Credentials RN [facility] Called By FRANKS [facility] Blood 2024 10:0 6 PM WAISTLINE JOINER LOCKSTITCH 2024 11:37 PM WAISTLINE JOINER LOCKSTITCH Manisha Williamson DRENCHER LAB BLOOD ORDERABLES Final Result Performing Organization Address City/[facility] Co de Phone Number [facility] [place] [address] * (ABNORMAL) CBC with auto differential (2024 10:06 PM WAISTLINE JOINER LOCKSTITCH) WBC 8.0 3.8 - 9.9 K/cumm Hgb 9.2(L) 11.9 - 15.5 g/dL [facility] Hct 34.7(L) 35.6 - 45.5 % [facility] Plt 440(H) 150 - 400 K/cumm [facility] MPV 10.6 9.1 - 12.3 fL [facility] RBC 4.18 3.90 - 5.20 M/cumm [facility] MCV 83.0 81.3 - 96.4 fL [facility] MCH 22.0(L) 27.1 - 33.3 pg [facility] MCHC 26.5(L) 32.3 - 35.7 g/dL [facility] RDW CV 24.4(H) 11.1 - 14.9 % [facility] RDW SD 72.4(H) 35.7 - 48.1 fL [facility] NRBC abs 0.00 0.00 - 0.01 K/cumm [facility] Blood 2024 10:0 6 PM WAISTLINE JOINER LOCKSTITCH 2024 11:29 PM WAISTLINE JOINER LOCKSTITCH Manisha Williamson NP LAB BLOOD ORDERABLES Final Result [facility] [place] [address] * (ABNORMAL) aPTT (2024 10:06 PM WAISTLINE JOINER LOCKSTITCH) aPTT >150(C) 28 - 38 sec Comment: No clot detected in sample.Repeated and verified. Interpretive Data Heparin therapeutic range: 66.0 - 100.0 seconds. Range based on correlation with therapeutic heparin activity range of 0.3 - 0.7 Units/mL. Current interpretive data was last revised on 2023. Blood 2024 10:0 6 PM WAISTLINE JOINER LOCKSTITCH 2024 11:29 PM WAISTLINE JOINER LOCKSTITCH Narrative [facility] - 11/22/2024 12:02 AM WAISTLINE JOINER LOCKSTITCH STAT PTT timing: - Draw 6 hours [...] BLOOD ORDERABLES Final Result Performing Organization Address [facility] de Phone Number [facility] [place] [address] * Protime-INR (2024 10:06 PM WAISTLINE JOINER LOCKSTITCH) Pathologist [facility] PT 11.8 9.7 - 13.0 sec INR 1.09 0.90 - 1.20 [facility] Comment: Interpretive data Oral anticoagulant therapeutic ranges: Venous thromboembolism prophylaxis or treatment: 2.0-3.0 CARDIOLOGY Standard range: 2.0-3.0 High-intensity range: 2.5-3.5 Refer to indication-specific guidelines for appropriate target ranges for prosthetic heart valve replacement. Current interpretive data was last revised on 2019. Blood 2024 10:0 6 PM WAISTLINE JOINER LOCKSTITCH 2024 11:29 PM WAISTLINE JOINER LOCKSTITCH Hesham Madsen MD LAB BLOOD ORDERABLES Final R esult Performing Organization Address [facility] de Phone Number [facility] [place] [address] * (ABNORMAL) Basic metabolic panel (2024 10:06 PM WAISTLINE JOINER LOCKSTITCH) Pathologist [facility] Sodium 146(H) 135 - 145 mmol/L Potassium, pl 3.8 3.3 - 4.9 mmol/L [facility] Chloride 105 97 - 110 mmol/L [facility] CO2 35(H) 22 - 32 mmol/L [facility] Anion gap 6 2 - 15 mmol/L [facility] BUN 19 6 - 25 mg/dL [facility] Creatinine 0.44(L) 0.60 - 1.10 mg/dL [facility] Glucose 182 70 - 199 mg/dL [facility] Comment: Interpretive Data Fasting glucose >/= [...] 2022. Calcium 8.5 8.5 - 10.3 mg/dL [facility] Blood 2024 10:0 6 PM WAISTLINE JOINER LOCKSTITCH 2024 11:26 PM WAISTLINE JOINER LOCKSTITCH Manisha Williamson NP LAB BLOOD ORDERABLES Final Result Performing Organization Address City/[facility] Co de Phone Number [facility] [place] [employer] [place] [address] * (ABNORMAL) POCT glucose (2024 7:21 PM WAISTLINE JOINER LOCKSTITCH) Glucose, POC 352(H) 70 - 199 mg/dL Comment:Glu2: RN/MD Notified Glucose comment 1 Glu2: RN/MD Notified [facility] Blood 2024 7:21 PM WAISTLINE JOINER LOCKSTITCH 2024 7:21 PM WAISTLINE JOINER LOCKSTITCH Result [facility] Hesham Madsen MD LAB POCT ORDERABLES - DEVICE Final Result Performing Organization Address [facility] Co de Phone Number [facility] [place] [place] [address] * (ABNORMAL) POCT glucose (2024 4:43 PM WAISTLINE JOINER LOCKSTITCH) Glucose, POC 281(H) 70 - 199 mg/dL Blood 2024 4:43 PM WAISTLINE JOINER LOCKSTITCH 2024 4:43 PM WAISTLINE JOINER LOCKSTITCH Hesham Madsen MD LAB POCT ORDERABLES - DEVICE Final Result Performing Organization Address City/[facility] Co de Phone Number [facility] [place] [address] * (ABNORMAL) POCT glucose (2024 12:22 PM WAISTLINE JOINER LOCKSTITCH) Glucose, POC 211(H) 70 - 199 mg/dL Blood 2024 12:2 2 PM WAISTLINE JOINER LOCKSTITCH 2024 12:22 PM WAISTLINE JOINER LOCKSTITCH Hesham Madsen MD LAB POCT ORDERABLES - DEVICE Final Result Performing Organization Address City/[facility]/[place] [address] * (ABNORMAL) POCT glucose (2024 8:06 AM WAISTLINE JOINER LOCKSTITCH) Glucose, POC 204(H) 70 - 199 mg/dL Blood 2024 8:06 AM WAISTLINE JOINER LOCKSTITCH 2024 8:06 AM WAISTLINE JOINER LOCKSTITCH Hesham Madsen MD LAB POCT ORDERABLES - DEVICE Final Result Performing Organization Address [facility] [place] [address] * (ABNORMAL) POCT glucose (2024 3:35 AM WAISTLINE JOINER LOCKSTITCH) Glucose, POC 250(H) 70 - 199 mg/dL Comment:Glu2: RN/MD Notified Glucose comment 1 Glu2: RN/MD Notified [facility] Blood 2024 3:35 AM WAISTLINE JOINER LOCKSTITCH 2024 3:35 AM WAISTLINE JOINER LOCKSTITCH Hesham Madsen MD LAB POCT ORDERABLES - DEVICE Final Result Performing Organization Address City/[facility]/[place] [address] * (ABNORMAL) POCT glucose (2024 12:12 AM WAISTLINE JOINER LOCKSTITCH) [facility] Glucose, POC 210(H) 70 - 199 mg/dL Blood 2024 12:1 2 AM WAISTLINE JOINER LOCKSTITCH 2024 12:12 AM WAISTLINE JOINER LOCKSTITCH Hesham Madsen MD LAB POCT ORDERABLES - DEVICE Final Result Performing Organization Address [facility] Co de Phone Number [facility] [place] [place] [address] * (ABNORMAL) Troponin I high-sensitivity 6-hour (11/20/2024 10:13 PM WAISTLINE JOINER LOCKSTITCH) [facility] Trop I hs 66(H) <=17 ng/L Comment: Interpretive Data For further hscTnI resources including the diagnostic algorithm and an aid in interpretation, copy and paste this link: [email or web address]/[email or web address] Current Interpretive Data last revised 2020. Trop I hs delta See Comment ng/L [facility] Comment:Inappropriate collec tion time to report a delta. Trop I hs pct delta See Comment % [facility] Comment:Inappropriate collec tion time to report a delta. Trop I hs interp See Comment [facility] Comment:Inappropriate collec tion time to report a delta. Blood 11/20/2024 10:1 3 PM WAISTLINE JOINER LOCKSTITCH 11/20/2024 10:49 PM WAISTLINE JOINER LOCKSTITCH Hesham Madsen MD LAB BLOOD ORDERABLES Final R esult Performing Organization Address [facility] Co de Phone Number [facility] [place] [address] * eGFR (11/20/2024 10:13 PM WAISTLINE JOINER LOCKSTITCH) [facility] eGFR >90 >=60 mL/min/1. 73 m2 [...] reviewed 2021. Blood 11/20/2024 10:1 3 PM WAISTLINE JOINER LOCKSTITCH 11/20/2024 10:50 PM WAISTLINE JOINER LOCKSTITCH Manisha Williamson NP LAB BLOOD ORDERABLES Final Result [facility] [place] [address] * Differential, auto (11/20/2024 10:13 PM WAISTLINE JOINER LOCKSTITCH) Neutrophil abs 5.6 1.5 - 6.5 K/cumm Imm gran abs 0.1 0.0 - 0.1 K/cumm [facility] Lymphocyte abs 0.9 0.8 - 3.3 K/cumm [facility] Monocyte abs 0.6 0.2 - 0.8 K/cumm [facility] Eosinophil abs 0.0 0.0 - 0.5 K/cumm [facility] Basophil abs 0.0 0.0 - 0.1 K/cumm [facility] Neutrophil pct 77.4 % [facility] Comment: Interpretive Data Percent cell count reference ranges are not reported, since discordance with absolute values may lead to misinterpretation of CBC data. Current Interpretive Data was last revised on 2018. Imm gran pct 1.7 % [facility] Comment: Interpretive Data Percent cell count reference ranges are not reported, since discordance with absolute values may lead to misinterpretation of CBC data. Current Interpretive Data was last revised on 2018. Lymphocyte pct 12.3 % [facility] Comment: Interpretive Data Percent cell count reference ranges are not reported, since discordance with absolute values may lead to misinterpretation of CBC data. Current Interpretive Data was last revised on 2018. Monocyte pct 8.4 % [facility] Comment: Interpretive Data Percent cell count reference ranges are not reported, since discordance with absolute values may lead to misinterpretation of CBC data. Current Interpretive Data was last revised on 2018. Eosinophil pct 0.1 % [facility] Comment: Interpretive Data Percent cell count reference ranges are not reported, since discordance with absolute values may lead to misinterpretation of CBC data. Current Interpretive Data was last revised on 2018. Basophil pct 0.1 % [facility] Comment: Interpretive Data Percent cell count reference ranges are not reported, since discordance with absolute values may lead to misinterpretation of CBC data. Current Interpretive Data was last revised on 2018. Blood 11/20/2024 10:1 3 PM WAISTLINE JOINER LOCKSTITCH 11/20/2024 10:49 PM WAISTLINE JOINER LOCKSTITCH Manisha Williamson DRENCHER LAB BLOOD ORDERABLES Final Result [facility] [place] [address] * (ABNORMAL) CBC with auto differential (11/20/2024 10:13 PM WAISTLINE JOINER LOCKSTITCH) WBC 7.3 3.8 - 9.9 K/cumm Hgb 9.2(L) 11.9 - 15.5 g/dL [facility] Hct 34.6(L) 35.6 - 45.5 % [facility] Plt 372 150 - 400 K/cumm [facility] MPV 10.2 9.1 - 12.3 fL [facility] RBC 4.19 3.90 - 5.20 M/cumm [facility] MCV 82.6 81.3 - 96.4 fL [facility] MCH 22.0(L) 27.1 - 33.3 pg [facility] MCHC 26.6(L) 32.3 - 35.7 g/dL [facility] RDW CV 24.4(H) 11.1 - 14.9 % [facility] RDW SD 71.1(H) 35.7 - 48.1 fL [facility] NRBC abs 0.00 0.00 - 0.01 K/cumm [facility] Blood 11/20/2024 10:1 3 PM WAISTLINE JOINER LOCKSTITCH 11/20/2024 10:49 PM WAISTLINE JOINER LOCKSTITCH Manisha Williamson NP LAB BLOOD ORDERABLES Final Result [facility] [place] [address] * (ABNORMAL) aPTT (11/20/2024 10:13 PM WAISTLINE JOINER LOCKSTITCH) aPTT 79(H) 28 - 38 sec Comment: Interpretive Data Heparin therapeutic range: 66.0 - 100.0 seconds. Range based on correlation with therapeutic heparin activity range of 0.3 - 0.7 Units/mL. Current interpretive data was last revised on 2023. Blood 11/20/2024 10:1 3 PM WAISTLINE JOINER LOCKSTITCH 11/20/2024 10:53 PM WAISTLINE JOINER LOCKSTITCH Narrative [facility] - 11/20/2024 11:02 PM WAISTLINE JOINER LOCKSTITCH STAT PTT timing: - Draw 6 hours [...] BLOOD ORDERABLES Final Result Performing Organization Address [facility] Co de Phone Number [facility] [place] [address] * Protime-INR (11/20/2024 10:13 PM WAISTLINE JOINER LOCKSTITCH) Pathologist [facility] [facility] PT 10.8 9.7 - 13.0 sec INR 1.00 0.90 - 1.20 [facility] Comment: Interpretive data Oral anticoagulant therapeutic ranges: Venous thromboembolism prophylaxis or treatment: 2.0-3.0 CARDIOLOGY Standard range: 2.0-3.0 High-intensity range: 2.5-3.5 Refer to indication-specific guidelines for appropriate target ranges for prosthetic heart valve replacement. Current interpretive data was last revised on 2019. Blood 11/20/2024 10:1 3 PM WAISTLINE JOINER LOCKSTITCH 11/20/2024 10:52 PM WAISTLINE JOINER LOCKSTITCH Hesham Madsen MD LAB BLOOD ORDERABLES Final R esult Performing Organization Address [facility] Co de Phone Number [facility] [place] [address] * (ABNORMAL) Basic metabolic panel (11/20/2024 10:13 PM WAISTLINE JOINER LOCKSTITCH) Pathologist [facility] Sodium 145 135 - 145 mmol/L Potassium, pl 3.2(L) 3.3 - 4.9 mmol/L [facility] Chloride 103 97 - 110 mmol/L [facility] CO2 34(H) 22 - 32 mmol/L [facility] Anion gap 8 2 - 15 mmol/L [facility] BUN 20 6 - 25 mg/dL [facility] Creatinine 0.49(L) 0.60 - 1.10 mg/dL [facility] Glucose 242(H) 70 - 199 mg/dL [facility] Comment: Interpretive Data Fasting glucose >/= [...] 2022. Calcium 8.5 8.5 - 10.3 mg/dL [facility] Blood 11/20/2024 10:1 3 PM WAISTLINE JOINER LOCKSTITCH 11/20/2024 10:50 PM WAISTLINE JOINER LOCKSTITCH Manisha Williamson NP LAB BLOOD ORDERABLES Final Result Performing Organization Address [facility] Co de Phone Number [facility] [place] [place] [address] * POCT glucose (11/20/2024 8:01 PM WAISTLINE JOINER LOCKSTITCH) Glucose, POC 191 70 - 199 mg/dL Blood 11/20/2024 8:01 PM WAISTLINE JOINER LOCKSTITCH 11/20/2024 8:01 PM WAISTLINE JOINER LOCKSTITCH Hesham Madsen MD LAB POCT ORDERABLES - DEVICE Final Result Performing Organization Address [facility] de Phone Number [facility] Department [place] [address] * POCT glucose (11/20/2024 4:36 PM WAISTLINE JOINER LOCKSTITCH) Glucose, POC 197 70 - 199 mg/dL Blood 11/20/2024 4:36 PM WAISTLINE JOINER LOCKSTITCH 11/20/2024 4:36 PM WAISTLINE JOINER LOCKSTITCH Result [facility] Hesham Madsen MD LAB POCT ORDERABLES - DEVICE Final Result Performing Organization Address [facility] Co de Phone Number [facility] Department [place] [address] * (ABNORMAL) aPTT (11/20/2024 2:58 PM WAISTLINE JOINER LOCKSTITCH) Pathologist [facility] aPTT 68(H) 28 - 38 sec Comment: Interpretive Data Heparin therapeutic range: 66.0 - 100.0 seconds. Range based on correlation with therapeutic heparin activity range of 0.3 - 0.7 Units/mL. Current interpretive data was last revised on 2023. Blood 11/20/2024 2:58 PM WAISTLINE JOINER LOCKSTITCH 11/20/2024 3:24 PM WAISTLINE JOINER LOCKSTITCH Narrative [facility] - 11/20/2024 3:46 PM WAISTLINE JOINER LOCKSTITCH STAT PTT timing: - Draw 6 hours [...] BLOOD ORDERABLES Final Result Performing Organization Address City/[facility]/ZIP Co de Phone Number [facility] [place] [place] [address] * (ABNORMAL) POCT glucose (11/20/2024 11:17 AM WAISTLINE JOINER LOCKSTITCH) Pathologist [facility] Glucose, POC 276(H) 70 - 199 mg/dL Blood 11/20/2024 11:1 7 AM WAISTLINE JOINER LOCKSTITCH 11/20/2024 11:17 AM WAISTLINE JOINER LOCKSTITCH Hesham Madsen MD LAB POCT ORDERABLES - DEVICE Final Result [facility] [place] [address] * (ABNORMAL) aPTT (11/20/2024 8:28 AM WAISTLINE JOINER LOCKSTITCH) aPTT 70(H) 28 - 38 sec Comment: Interpretive Data Heparin therapeutic range: 66.0 - 100.0 seconds. Range based on correlation with therapeutic heparin activity range of 0.3 - 0.7 Units/mL. Current interpretive data was last revised on 2023. Blood 11/20/2024 8:28 AM WAISTLINE JOINER LOCKSTITCH 11/20/2024 9:24 AM WAISTLINE JOINER LOCKSTITCH Narrative [facility] - 11/20/2024 9:46 AM WAISTLINE JOINER LOCKSTITCH STAT PTT timing: - Draw 6 hours [...] Williamson NP LAB BLOOD ORDERABLES Final Result [facility] [place] [address] * Protime-INR (11/20/2024 8:28 AM WAISTLINE JOINER LOCKSTITCH) PT 10.7 9.7 - 13.0 sec INR 0.99 0.90 - 1.20 [facility] Comment: Interpretive data Oral anticoagulant therapeutic ranges: Venous thromboembolism prophylaxis or treatment: 2.0-3.0 CARDIOLOGY Standard range: 2.0-3.0 High-intensity range: 2.5-3.5 Refer to indication-specific guidelines for appropriate target ranges for prosthetic heart valve replacement. Current interpretive data was last revised on 2019. Blood 11/20/2024 8:28 AM WAISTLINE JOINER LOCKSTITCH 11/20/2024 9:24 AM WAISTLINE JOINER LOCKSTITCH Hesham Madsen MD LAB BLOOD ORDERABLES Final R esult Performing Organization Address [facility] de Phone Number [facility] [place] [address] * POCT glucose (11/20/2024 7:44 AM WAISTLINE JOINER LOCKSTITCH) Glucose, POC 180 70 - 199 mg/dL Blood 11/20/2024 7:44 AM WAISTLINE JOINER LOCKSTITCH 11/20/2024 7:44 AM WAISTLINE JOINER LOCKSTITCH Result [facility] Hesham Madsen MD LAB POCT ORDERABLES - DEVICE Final Result Performing Organization Address [facility] [place] [address] * (ABNORMAL) Troponin I high-sensitivity 4-hour (11/20/2024 2:16 AM WAISTLINE JOINER LOCKSTITCH) Pathologist [facility] Trop I hs 76(H) <=17 ng/L Comment: Interpretive Data For further hscTnI resources including the diagnostic algorithm and an aid in interpretation, copy and paste this link: [email or web address].testcatalog.org/show/[email or web address] Current Interpretive Data last revised 2020. Trop I hs delta 7 ng/L [facility] Trop I hs interp Equivocal [facility] Blood 11/20/2024 2:16 AM WAISTLINE JOINER LOCKSTITCH 11/20/2024 2:59 AM WAISTLINE JOINER LOCKSTITCH Result [facility] us Hesham Madsen MD LAB BLOOD ORDERABLES Final R esult Performing Organization Address [facility] de Phone Number [facility] [place] [address] * (ABNORMAL) CBC without differential (11/20/2024 2:16 AM WAISTLINE JOINER LOCKSTITCH) [facility] WBC 9.7 3.8 - 9.9 K/cumm Hgb 10.3(L) 11.9 - 15.5 g/dL [facility] Hct 37.5 35.6 - 45.5 % [facility] Plt 424(H) 150 - 400 K/cumm [facility] MPV 10.4 9.1 - 12.3 fL [facility] RBC 4.61 3.90 - 5.20 M/cumm [facility] MCV 81.3 81.3 - 96.4 fL [facility] MCH 22.3(L) 27.1 - 33.3 pg [facility] MCHC 27.5(L) 32.3 - 35.7 g/dL [facility] RDW CV 24.8(H) 11.1 - 14.9 % [facility] RDW SD 71.2(H) 35.7 - 48.1 fL [facility] NRBC abs 0.03(H) 0.00 - 0.01 K/cumm [facility] Blood 11/20/2024 2:16 AM WAISTLINE JOINER LOCKSTITCH 11/20/2024 2:59 AM WAISTLINE JOINER LOCKSTITCH Hesham Madsen MD LAB BLOOD ORDERABLES Final R esult [facility] Department [place] [address] * (ABNORMAL) Troponin I high-sensitivity 2-hour (11/20/2024 12:24 AM WAISTLINE JOINER LOCKSTITCH) [facility] Trop I hs 55(H) <=17 ng/L Comment: Reviewed Interpretive Data For further hscTnI resources including the diagnostic algorithm and an aid in interpretation, copy and paste this link: [email or web address].testcatalog.org/show/[email or web address] Current Interpretive Data last revised 2020. Trop I hs delta -14(C) ng/L [facility] Comment:Reviewed Trop I hs interp Significa nt(C) [facility] Comment:Reviewed Blood 11/20/2024 12:2 4 AM WAISTLINE JOINER LOCKSTITCH 11/20/2024 12:52 AM WAISTLINE JOINER LOCKSTITCH Hesham Madsen MD LAB BLOOD ORDERABLES Final R esult Performing Organization Address City/[facility] Co de Phone Number [facility] Department [place] [address] * Critical result callback Cardio chemistry (11/20/2024 12:24 AM WAISTLINE JOINER LOCKSTITCH) Date Notified [id number] Time Notified 156 [facility] Test name Trop I hs 2hr d [facility] Called/Read Back Carina Sherine [facility] Credentials RN [facility] Called By [facility] Blood 11/20/2024 12:2 4 AM WAISTLINE JOINER LOCKSTITCH 11/20/2024 12:52 AM WAISTLINE JOINER LOCKSTITCH Hesham Madsen MD LAB BLOOD ORDERABLES Final R esult Performing Organization Address City/[facility] Co de Phone Number [facility] Department [place] [address] * eGFR (11/20/2024 12:24 AM WAISTLINE JOINER LOCKSTITCH) eGFR >90 >=60 mL/min/1. 73 m2 Comment: [...] reviewed 2021. Blood 11/20/2024 12:2 4 AM WAISTLINE JOINER LOCKSTITCH 11/20/2024 12:51 AM WAISTLINE JOINER LOCKSTITCH Manisha Williamson NP LAB BLOOD ORDERABLES Final Result Performing Organization Address [facility]/ZIP Co de Phone Number [facility] Department [place] [address] * (ABNORMAL) aPTT (11/20/2024 12:24 AM WAISTLINE JOINER LOCKSTITCH) [facility] Signature aPTT 45(H) 28 - 38 sec Comment: Interpretive Data Heparin therapeutic range: 66.0 - 100.0 seconds. Range based on correlation with therapeutic heparin activity range of 0.3 - 0.7 Units/mL. Current interpretive data was last revised on 2023. Blood 11/20/2024 12:2 4 AM WAISTLINE JOINER LOCKSTITCH 11/20/2024 12:58 AM WAISTLINE JOINER LOCKSTITCH Narrative [facility] - 11/20/2024 1:07 AM WAISTLINE JOINER LOCKSTITCH STAT PTT timing: - Draw 6 hours [...] BLOOD ORDERABLES Final Result Performing Organization Address [facility]/ZIP Co de Phone Number [facility] [place] [address] * (ABNORMAL) Basic metabolic panel (11/20/2024 12:24 AM WAISTLINE JOINER LOCKSTITCH) Sodium 144 135 - 145 mmol/L Potassium, pl 3.8 3.3 - 4.9 mmol/L [facility] Chloride 105 97 - 110 mmol/L [facility] CO2 29 22 - 32 mmol/L [facility] Anion gap 10 2 - 15 mmol/L [facility] BUN 20 6 - 25 mg/dL [facility] Creatinine 0.60 0.60 - 1.10 mg/dL [facility] Glucose 277(H) 70 - 199 mg/dL [facility] Comment: Interpretive Data Fasting glucose >/= [...] 2022. Calcium 8.7 8.5 - 10.3 mg/dL [facility] Blood 11/20/2024 12:2 4 AM WAISTLINE JOINER LOCKSTITCH 11/20/2024 12:51 AM WAISTLINE JOINER LOCKSTITCH us Manisha Williamson NP LAB BLOOD ORDERABLES Final Result [facility] [place] [address] * (ABNORMAL) POCT glucose (11/19/2024 11:01 PM WAISTLINE JOINER LOCKSTITCH) Glucose, POC 228(H) 70 - 199 mg/dL Blood 11/19/2024 11:0 1 PM WAISTLINE JOINER LOCKSTITCH 11/19/2024 11:01 PM WAISTLINE JOINER LOCKSTITCH Hesham Madsen MD LAB POCT ORDERABLES - DEVICE Final Result [facility] [place] [address] * (ABNORMAL) Troponin I high-sensitivity series (baseline, 2hr, 4hr, 6hr) (11/19/2024 10:15 PM WAISTLINE JOINER LOCKSTITCH) Trop I hs 69(H) <=17 ng/L Comment: Interpretive Data For further hscTnI resources including the diagnostic algorithm and an aid in interpretation, copy and paste this link: [email or web address].testcatalog.org/show/[email or web address] Current Interpretive Data last revised 2020. Blood 11/19/2024 10:1 5 PM WAISTLINE JOINER LOCKSTITCH 11/19/2024 10:57 PM WAISTLINE JOINER LOCKSTITCH us Hesham Madsen MD LAB BLOOD ORDERABLES Final R esult [facility] [place] [address] * ECG 12 lead (11/19/2024 10:11 PM WAISTLINE JOINER LOCKSTITCH) Pathologist [facility] Ventricular Rate EKG/Min 96 BPM [facility] Atrial Rate 96 BPM [facility] OK-Interval (MSEC) 128 ms [facility] QRS-Interval (MSEC) 88 ms [facility] QT-Interval (MSEC) 406 ms [facility] QTc 512 ms [facility] P [place] 101 degrees [facility] R [place] -18 degrees [facility] T [place] 48 degrees [facility] Diagnosis Sinus rhythm with Premature atrial complexes Minimal voltage criteria for LVH, may be normal variant ( R in aVL ) Borderline ECG When compared with ECG of 23-AUG-2024 04:13, No significant change was found Confirmed by JANEEN RICHARDS M.D ([id number]) on 11/22/2024 6:07:10 PM [facility] 11/19/2024 10:1 1 PM WAISTLINE JOINER LOCKSTITCH 11/22/2024 6:07 PM WAISTLINE JOINER LOCKSTITCH us Hesham Madsen MD ECG ORDERABLES Final Result [facility] * (ABNORMAL) POCT glucose (11/19/2024 7:20 PM WAISTLINE JOINER LOCKSTITCH) Glucose, POC 218(H) 70 - 199 mg/dL Blood 11/19/2024 7:20 PM WAISTLINE JOINER LOCKSTITCH 11/19/2024 7:20 PM WAISTLINE JOINER LOCKSTITCH Hesham Madsen MD LAB POCT ORDERABLES - DEVICE Final Result Performing Organization Address City/[facility] Co de Phone Number [facility] [place] [address] * (ABNORMAL) POCT glucose (11/19/2024 4:39 PM WAISTLINE JOINER LOCKSTITCH) Glucose, POC 253(H) 70 - 199 mg/dL Blood 11/19/2024 4:39 PM WAISTLINE JOINER LOCKSTITCH 11/19/2024 4:39 PM WAISTLINE JOINER LOCKSTITCH Hesham Madsen MD LAB POCT ORDERABLES - DEVICE Final Result Performing Organization Address [facility] de Phone Number [facility] [place] [address] * aPTT (11/19/2024 3:39 PM WAISTLINE JOINER LOCKSTITCH) aPTT 32 28 - 38 sec Comment: Interpretive Data Heparin therapeutic range: 66.0 - 100.0 seconds. Range based on correlation with therapeutic heparin activity range of 0.3 - 0.7 Units/mL. Current interpretive data was last revised on 2023. Blood 11/19/2024 3:39 PM WAISTLINE JOINER LOCKSTITCH 11/19/2024 4:31 PM WAISTLINE JOINER LOCKSTITCH Narrative [facility] - 11/19/2024 4:40 PM WAISTLINE JOINER LOCKSTITCH STAT PTT timing: - Draw 6 hours [...] BLOOD ORDERABLES Final Result Performing Organization Address [facility] Co de Phone Number [facility] [place] [employer] [place] [address] * (ABNORMAL) POCT glucose (11/19/2024 12:05 PM WAISTLINE JOINER LOCKSTITCH) [facility] Signature Glucose, POC 289(H) 70 - 199 mg/dL Blood 11/19/2024 12:0 5 PM WAISTLINE JOINER LOCKSTITCH 11/19/2024 12:05 PM WAISTLINE JOINER LOCKSTITCH Hesham Madsen MD LAB POCT ORDERABLES - DEVICE Final Result Performing Organization Address [facility] Co de Phone Number [facility] [place] [place] [address] * (ABNORMAL) POCT glucose (11/19/2024 12:03 PM WAISTLINE JOINER LOCKSTITCH) [facility] Signature Glucose, POC 335(H) 70 - 199 mg/dL Blood 11/19/2024 12:0 3 PM WAISTLINE JOINER LOCKSTITCH 11/19/2024 12:03 PM WAISTLINE JOINER LOCKSTITCH Hesham Madsen MD LAB POCT ORDERABLES - DEVICE Final Result Performing Organization Address City/[facility] Co de Phone Number [facility] [place] [address] * eGFR (11/19/2024 8:52 AM WAISTLINE JOINER LOCKSTITCH) [facility] eGFR >90 >=60 mL/min/1. 73 m2 [...] last reviewed 2021. Blood 11/19/2024 8:52 AM WAISTLINE JOINER LOCKSTITCH 11/19/2024 9:45 AM WAISTLINE JOINER LOCKSTITCH Manisha Williamson DRENCHER LAB BLOOD ORDERABLES Final Result [facility] [place] [address] * (ABNORMAL) Differential, auto (11/19/2024 8:52 AM WAISTLINE JOINER LOCKSTITCH) [facility] Neutrophil abs 8.8(H) 1.5 - 6.5 K/cumm Imm gran abs 0.2(H) 0.0 - 0.1 K/cumm [facility] Lymphocyte abs 1.3 0.8 - 3.3 K/cumm [facility] Monocyte abs 0.9(H) 0.2 - 0.8 K/cumm [facility] Eosinophil abs 0.0 0.0 - 0.5 K/cumm [facility] Basophil abs 0.0 0.0 - 0.1 K/cumm [facility] Neutrophil pct 79.2 % [facility] Comment: Interpretive Data Percent cell count reference ranges are not reported, since discordance with absolute values may lead to misinterpretation of CBC data. Current Interpretive Data was last revised on 2018. Imm gran pct 1.3 % [facility] Comment: Interpretive Data Percent cell count reference ranges are not reported, since discordance with absolute values may lead to misinterpretation of CBC data. Current Interpretive Data was last revised on 2018. Lymphocyte pct 11.7 % [facility] Comment: Interpretive Data Percent cell count reference ranges are not reported, since discordance with absolute values may lead to misinterpretation of CBC data. Current Interpretive Data was last revised on 2018. Monocyte pct 7.6 % [facility] Comment: Interpretive Data Percent cell count reference ranges are not reported, since discordance with absolute values may lead to misinterpretation of CBC data. Current Interpretive Data was last revised on 2018. Eosinophil pct 0.0 % [facility] Comment: Interpretive Data Percent cell count reference ranges are not reported, since discordance with absolute values may lead to misinterpretation of CBC data. Current Interpretive Data was last revised on 2018. Basophil pct 0.2 % [facility] Comment: Interpretive Data Percent cell count reference ranges are not reported, since discordance with absolute values may lead to misinterpretation of CBC data. Current Interpretive Data was last revised on 2018. Blood 11/19/2024 8:52 AM WAISTLINE JOINER LOCKSTITCH 11/19/2024 9:45 AM WAISTLINE JOINER LOCKSTITCH Manisha Williamson NP LAB BLOOD ORDERABLES Final Result [facility] Department [place] [address] * (ABNORMAL) CBC with auto differential (11/19/2024 8:52 AM WAISTLINE JOINER LOCKSTITCH) WBC 11.2(H) 3.8 - 9.9 K/cumm Hgb 9.8(L) 11.9 - 15.5 g/dL [facility] Hct 36.0 35.6 - 45.5 % [facility] Plt 418(H) 150 - 400 K/cumm [facility] MPV 10.4 9.1 - 12.3 fL [facility] RBC 4.52 3.90 - 5.20 M/cumm [facility] MCV 79.6(L) 81.3 - 96.4 fL [facility] MCH 21.7(L) 27.1 - 33.3 pg [facility] MCHC 27.2(L) 32.3 - 35.7 g/dL [facility] RDW CV 24.7(H) 11.1 - 14.9 % [facility] RDW SD 70.4(H) 35.7 - 48.1 fL [facility] NRBC abs 0.04(H) 0.00 - 0.01 K/cumm [facility] Blood 11/19/2024 8:52 AM WAISTLINE JOINER LOCKSTITCH 11/19/2024 9:45 AM WAISTLINE JOINER LOCKSTITCH Manisha Williamson NP LAB BLOOD ORDERABLES Final Result Performing Organization Address City/[facility]/ZIP Co de Phone Number [facility] [place] [place] [address] * (ABNORMAL) aPTT (11/19/2024 8:52 AM WAISTLINE JOINER LOCKSTITCH) [facility] Signature aPTT 27(L) 28 - 38 sec Comment: Interpretive Data Heparin therapeutic range: 66.0 - 100.0 seconds. Range based on correlation with therapeutic heparin activity range of 0.3 - 0.7 Units/mL. Current interpretive data was last revised on 2023. Blood 11/19/2024 8:52 AM WAISTLINE JOINER LOCKSTITCH 11/19/2024 9:50 AM WAISTLINE JOINER LOCKSTITCH Narrative [facility] - 11/19/2024 10:00 AM WAISTLINE JOINER LOCKSTITCH Baseline prior to heparin initiation Manisha Williamson NP LAB BLOOD ORDERABLES Final Result [facility] [place] [address] * Protime-INR (11/19/2024 8:52 AM WAISTLINE JOINER LOCKSTITCH) PT 10.2 9.7 - 13.0 sec INR 0.95 0.90 - 1.20 [facility] Comment: Interpretive data Oral anticoagulant therapeutic ranges: Venous thromboembolism prophylaxis or treatment: 2.0-3.0 CARDIOLOGY Standard range: 2.0-3.0 High-intensity range: 2.5-3.5 Refer to indication-specific guidelines for appropriate target ranges for prosthetic heart valve replacement. Current interpretive data was last revised on 2019. Blood 11/19/2024 8:52 AM WAISTLINE JOINER LOCKSTITCH 11/19/2024 9:50 AM WAISTLINE JOINER LOCKSTITCH Narrative [facility] - 11/19/2024 10:00 AM WAISTLINE JOINER LOCKSTITCH Baseline prior to heparin initiation Manisha Williamson NP LAB BLOOD ORDERABLES Final Result Performing Organization Address [facility] de Phone Number [facility] [place] [address] * (ABNORMAL) Hemoglobin A1c (11/19/2024 8:52 AM WAISTLINE JOINER LOCKSTITCH) Hgb A1C 6.0(H) 4.0 - 5.6 % Estimated Average Glucose 126 mg/dL [facility] Comment: The ADA recommends reporting an estimated Average Glucose (eAG) with all Hemoglobin A1c results using the equation derived from a study of 507 normal and diabetic adults. Minority populations were underrepresented and children were not included. (Diabetes Care 2020; 43(S1): S66-S76). The eAG is not equivalent to a fasting glucose. Blood 11/19/2024 8:52 AM WAISTLINE JOINER LOCKSTITCH 11/19/2024 9:49 AM WAISTLINE JOINER LOCKSTITCH Narrative [facility] - 11/19/2024 4:17 PM WAISTLINE JOINER LOCKSTITCH reflex Hesham Madsen MD LAB BLOOD ORDERABLES Final R esult Performing Organization Address [facility] Co de Phone Number [facility] [place] [address] * (ABNORMAL) Basic metabolic panel (11/19/2024 8:52 AM WAISTLINE JOINER LOCKSTITCH) Sodium 145 135 - 145 mmol/L Potassium, pl 4.0 3.3 - 4.9 mmol/L [facility] Chloride 104 97 - 110 mmol/L [facility] CO2 30 22 - 32 mmol/L [facility] Anion gap 11 2 - 15 mmol/L [facility] BUN 18 6 - 25 mg/dL [facility] Creatinine 0.52(L) 0.60 - 1.10 mg/dL [facility] Glucose 241(H) 70 - 199 mg/dL [facility] Comment: Interpretive Data Fasting glucose >/= [...] 2022. Calcium 9.4 8.5 - 10.3 mg/dL [facility] Blood 11/19/2024 8:52 AM WAISTLINE JOINER LOCKSTITCH 11/19/2024 9:45 AM WAISTLINE JOINER LOCKSTITCH us Manisha Williamson NP LAB BLOOD ORDERABLES Final Result [facility] Department [place] [address] * POCT glucose (11/19/2024 7:46 AM WAISTLINE JOINER LOCKSTITCH) Glucose, POC 147 70 - 199 mg/dL Blood 11/19/2024 7:46 AM WAISTLINE JOINER LOCKSTITCH 11/19/2024 7:46 AM WAISTLINE JOINER LOCKSTITCH Hesham Madsen MD LAB POCT ORDERABLES - DEVICE Final Result Performing Organization Address City/[facility] de Phone Number [facility] Department [place] [address] * eGFR (11/19/2024 4:37 AM WAISTLINE JOINER LOCKSTITCH) Pathologist [facility] Department eGFR >90 >=60 mL/min/1. 73 m2 Comment: [...] last reviewed 2021. Blood 11/19/2024 4:37 AM WAISTLINE JOINER LOCKSTITCH 11/19/2024 5:29 AM WAISTLINE JOINER LOCKSTITCH Hesham Madsen MD LAB BLOOD ORDERABLES Final R esult Performing Organization Address [facility] Co de Phone Number [facility] Department [place] [address] * (ABNORMAL) CBC without differential (11/19/2024 4:37 AM WAISTLINE JOINER LOCKSTITCH) Pathologist [facility] Department WBC 9.2 3.8 - 9.9 K/cumm Hgb 9.0(L) 11.9 - 15.5 g/dL [facility] Hct 32.2(L) 35.6 - 45.5 % [facility] Plt 335 150 - 400 K/cumm [facility] MPV 10.1 9.1 - 12.3 fL [facility] RBC 4.07 3.90 - 5.20 M/cumm [facility] MCV 79.1(L) 81.3 - 96.4 fL [facility] MCH 22.1(L) 27.1 - 33.3 pg [facility] MCHC 28.0(L) 32.3 - 35.7 g/dL [facility] RDW CV 24.2(H) 11.1 - 14.9 % [facility] RDW SD 68.3(H) 35.7 - 48.1 fL [facility] NRBC abs 0.04(H) 0.00 - 0.01 K/cumm [facility] Blood 11/19/2024 4:37 AM WAISTLINE JOINER LOCKSTITCH 11/19/2024 5:29 AM WAISTLINE JOINER LOCKSTITCH Hesham Madsen MD LAB BLOOD ORDERABLES Final R esult [facility] [place] [address] * (ABNORMAL) Basic metabolic panel (11/19/2024 4:37 AM WAISTLINE JOINER LOCKSTITCH) Sodium 146(H) 135 - 145 mmol/L Potassium, pl 3.6 3.3 - 4.9 mmol/L [facility] Chloride 105 97 - 110 mmol/L [facility] CO2 32 22 - 32 mmol/L [facility] Anion gap 9 2 - 15 mmol/L [facility] BUN 19 6 - 25 mg/dL [facility] Creatinine 0.51(L) 0.60 - 1.10 mg/dL [facility] Glucose 175 70 - 199 mg/dL [facility] Comment: Interpretive Data Fasting glucose >/= [...] 2022. Calcium 8.8 8.5 - 10.3 mg/dL [facility] Blood 11/19/2024 4:37 AM WAISTLINE JOINER LOCKSTITCH 11/19/2024 5:29 AM WAISTLINE JOINER LOCKSTITCH us Hesham Madsen MD LAB BLOOD ORDERABLES Final R esult Performing Organization Address [facility] Co de Phone Number [facility] [place] [employer] [place] [address] * POCT glucose (11/19/2024 2:58 AM WAISTLINE JOINER LOCKSTITCH) Glucose, POC 179 70 - 199 mg/dL Blood 11/19/2024 2:58 AM WAISTLINE JOINER LOCKSTITCH 11/19/2024 2:58 AM WAISTLINE JOINER LOCKSTITCH Hesham Madsen MD LAB POCT ORDERABLES - DEVICE Final Result Performing Organization Address [facility] de Phone Number [facility] [place] [employer] [place] [address] * (ABNORMAL) POCT glucose (11/18/2024 10:55 PM WAISTLINE JOINER LOCKSTITCH) Glucose, POC 234(H) 70 - 199 mg/dL Comment:Glu2: RN/MD Notified Glucose comment 1 Glu2: RN/MD Notified [facility] Blood 11/18/2024 10:5 5 PM WAISTLINE JOINER LOCKSTITCH 11/18/2024 10:55 PM WAISTLINE JOINER LOCKSTITCH us Hesham Madsen MD LAB POCT ORDERABLES - DEVICE Final Result Performing Organization Address [facility] de Phone Number [facility] [place] [address] * POCT glucose (11/18/2024 7:25 PM WAISTLINE JOINER LOCKSTITCH) Glucose, POC 160 70 - 199 mg/dL Blood 11/18/2024 7:25 PM WAISTLINE JOINER LOCKSTITCH 11/18/2024 7:25 PM WAISTLINE JOINER LOCKSTITCH Hesham Madsen MD LAB POCT ORDERABLES - DEVICE Final Result [facility] Department [place] [address] * (ABNORMAL) Differential, auto (11/18/2024 5:53 PM WAISTLINE JOINER LOCKSTITCH) Pathologist [facility] Neutrophil abs 8.6(H) 1.5 - 6.5 K/cumm Imm gran abs 0.1 0.0 - 0.1 K/cumm [facility] Lymphocyte abs 1.1 0.8 - 3.3 K/cumm [facility] Monocyte abs 0.8 0.2 - 0.8 K/cumm [facility] Eosinophil abs 0.0 0.0 - 0.5 K/cumm [facility] Basophil abs 0.0 0.0 - 0.1 K/cumm [facility] Neutrophil pct 81.0 % [facility] Comment: Interpretive Data Percent cell count reference ranges are not reported, since discordance with absolute values may lead to misinterpretation of CBC data. Current Interpretive Data was last revised on 2018. Imm gran pct 1.2 % [facility] Comment: Interpretive Data Percent cell count reference ranges are not reported, since discordance with absolute values may lead to misinterpretation of CBC data. Current Interpretive Data was last revised on 2018. Lymphocyte pct 10.2 % [facility] Comment: Interpretive Data Percent cell count reference ranges are not reported, since discordance with absolute values may lead to misinterpretation of CBC data. Current Interpretive Data was last revised on 2018. Monocyte pct 7.4 % [facility] Comment: Interpretive Data Percent cell count reference ranges are not reported, since discordance with absolute values may lead to misinterpretation of CBC data. Current Interpretive Data was last revised on 2018. Eosinophil pct 0.0 % [facility] Comment: Interpretive Data Percent cell count reference ranges are not reported, since discordance with absolute values may lead to misinterpretation of CBC data. Current Interpretive Data was last revised on 2018. Basophil pct 0.2 % [facility] Comment: Interpretive Data Percent cell count reference ranges are not reported, since discordance with absolute values may lead to misinterpretation of CBC data. Current Interpretive Data was last revised on 2018. Blood 11/18/2024 5:53 PM WAISTLINE JOINER LOCKSTITCH 11/18/2024 6:08 PM WAISTLINE JOINER LOCKSTITCH Hesham Madsen MD LAB BLOOD ORDERABLES Final R esult [facility] [place] [address] * (ABNORMAL) CBC with auto differential (11/18/2024 5:53 PM WAISTLINE JOINER LOCKSTITCH) WBC 10.6(H) 3.8 - 9.9 K/cumm Hgb 8.9(L) 11.9 - 15.5 g/dL [facility] Hct 33.2(L) 35.6 - 45.5 % [facility] Plt 341 150 - 400 K/cumm [facility] MPV 9.9 9.1 - 12.3 fL [facility] RBC 4.05 3.90 - 5.20 M/cumm [facility] MCV 82.0 81.3 - 96.4 fL [facility] MCH 22.0(L) 27.1 - 33.3 pg [facility] MCHC 26.8(L) 32.3 - 35.7 g/dL [facility] RDW CV 23.8(H) 11.1 - 14.9 % [facility] RDW SD 71.2(H) 35.7 - 48.1 fL [facility] NRBC abs 0.04(H) 0.00 - 0.01 K/cumm [facility] Blood 11/18/2024 5:53 PM WAISTLINE JOINER LOCKSTITCH 11/18/2024 6:08 PM WAISTLINE JOINER LOCKSTITCH Hesham Madsen MD LAB BLOOD ORDERABLES Final R esult [facility] [place] [address] * POCT glucose (11/18/2024 4:41 PM WAISTLINE JOINER LOCKSTITCH) Glucose, POC 195 70 - 199 mg/dL Blood 11/18/2024 4:41 PM WAISTLINE JOINER LOCKSTITCH 11/18/2024 4:41 PM WAISTLINE JOINER LOCKSTITCH Hesham Madsen MD LAB POCT ORDERABLES - DEVICE Final Result Performing Organization Address [facility] Co de Phone Number [facility] [place] [place] [address] * Transfuse RBC (11/18/2024 3:42 PM WAISTLINE JOINER LOCKSTITCH) Blood Hesham Madsen MD BLOOD TRANSFUSION ORDERABLES Final Result Performing Organization Address City/[facility]/ZIP Co de Phone Number [facility] [place] [address] * POCT glucose (11/18/2024 2:03 PM WAISTLINE JOINER LOCKSTITCH) Glucose, POC 101 70 - 199 mg/dL Blood 11/18/2024 2:03 PM WAISTLINE JOINER LOCKSTITCH 11/18/2024 2:03 PM WAISTLINE JOINER LOCKSTITCH Hesham Madsen MD LAB POCT ORDERABLES - DEVICE Final Result Performing Organization Address City/[facility]/ZIP Co de Phone Number [facility] [place] [place] [address] * POCT glucose (11/18/2024 1:15 PM WAISTLINE JOINER LOCKSTITCH) Glucose, POC 96 70 - 199 mg/dL Blood 11/18/2024 1:15 PM WAISTLINE JOINER LOCKSTITCH 11/18/2024 1:15 PM WAISTLINE JOINER LOCKSTITCH us Hesham Madsen MD LAB POCT ORDERABLES - DEVICE Final Result Performing Organization Address [facility] de Phone Number [facility] [place] [address] * POCT glucose (11/18/2024 12:02 PM WAISTLINE JOINER LOCKSTITCH) Glucose, POC 138 70 - 199 mg/dL Blood 11/18/2024 12:0 2 PM WAISTLINE JOINER LOCKSTITCH 11/18/2024 12:02 PM WAISTLINE JOINER LOCKSTITCH us Hesham Madsen MD LAB POCT ORDERABLES - DEVICE Final Result Performing Organization Address [facility] Phone Number [facility] [place] [address] * POCT glucose (11/18/2024 11:13 AM WAISTLINE JOINER LOCKSTITCH) Glucose, POC 164 70 - 199 mg/dL Blood 11/18/2024 11:1 3 AM WAISTLINE JOINER LOCKSTITCH 11/18/2024 11:13 AM WAISTLINE JOINER LOCKSTITCH us Hesham Madsen MD LAB POCT ORDERABLES - DEVICE Final Result Performing Organization Address [facility] [place] [address] * Type and screen (11/18/2024 10:26 AM WAISTLINE JOINER LOCKSTITCH) Heath, indirect Negative ABO Rh A Positive [facility] Blood 11/18/2024 10:2 6 AM WAISTLINE JOINER LOCKSTITCH 11/18/2024 10:49 AM WAISTLINE JOINER LOCKSTITCH Narrative [facility] - 11/18/2024 11:56 AM WAISTLINE JOINER LOCKSTITCH Has the patient had Daratumumab or Isatuximab in the past 6 months?->Unknown Hesham Madsen MD LAB BLOOD BANK TEST ORDERABL ES Final Result Performing Organization Address [facility] Co de Phone Number [facility] [place] [place] [address] * (ABNORMAL) POCT glucose (11/18/2024 10:13 AM WAISTLINE JOINER LOCKSTITCH) [facility] Glucose, POC 207(H) 70 - 199 mg/dL Blood 11/18/2024 10:1 3 AM WAISTLINE JOINER LOCKSTITCH 11/18/2024 10:13 AM WAISTLINE JOINER LOCKSTITCH Hesham Madsen MD LAB POCT ORDERABLES - DEVICE Final Result Performing Organization Address [facility] de Phone Number [facility] [place] [place] [address] * Prepare RBC: 1 Units (11/18/2024 9:58 AM WAISTLINE JOINER LOCKSTITCH) [facility] Product code [id number] Unit Number [id number] S [facility] Product Blood Type APOS [facility] Dispense Status PRESUMED TRANSFUSED [facility] Blood 11/18/2024 9:58 AM WAISTLINE JOINER LOCKSTITCH 11/18/2024 9:58 AM WAISTLINE JOINER LOCKSTITCH Narrative [facility] - 11/19/2024 12:56 AM WAISTLINE JOINER LOCKSTITCH Are special requirements needed? (All products are leukoreduced and CMV- safe)- >No Date required:-[id number] LRRBC # of [id number] Reasons:-Cardiovascular disease, Hgb <8 g/dL} Hesham Madsen MD BLOOD BANK PRODUCT ORDERABLE S Final Result Performing Organization Address [facility] Co de Phone Number [facility] [place] [place] [address] * (ABNORMAL) POC Blood Gas and Chemistries, Arterial - (11/18/2024 9:39 AM WAISTLINE JOINER LOCKSTITCH) pH, Art POC 7.51(H) 7.35 - 7.45 pCO2, Art POC 36 35 - 45 mmHg [facility] pO2, Art POC 122(H) 83 - 108 mmHg [facility] Na, POC 140 135 - 145 mmol/L [facility] K POC 4.3 3.3 - 4.9 mmol/L [facility] Comment: Interpretive Data Not all point of care methods assess for hemolysis. Confirm with instrument and retest K+ if not consistent with clinical signs and symptoms. Current Interpretive Data was last revised on 2024. Cl, POC 108 97 - 110 mmol/L [facility] Ionized Ca, POC 4.82 4.50 - 5.10 mg/dL [facility] Glucose, POC 197 70 - 199 mg/dL [facility] Lactate, POC 2.1(H) 0.7 - 2.0 mmol/L [facility] SO2 (jesus alberto) arterial 99(H) 90 - 95 % [facility] Base excess, POC 5.3 mmol/L [facility] HCO3, Art POC 29 20 - 30 mmol/L [facility] Hct, POC 23.0(L) 36.3 - 45.3 % [facility] Total Hb, POC 7.6(L) 11.9 - 15.5 g/dL [facility] Blood 11/18/2024 9:39 AM WAISTLINE JOINER LOCKSTITCH 11/18/2024 9:39 AM WAISTLINE JOINER LOCKSTITCH Hesham Madsen MD LAB POCT ORDERABLES - DEVICE Final Result [facility] [place] [address] * OK AN PROCEDURE PLACEHOLDER (11/18/2024 9:01 AM WAISTLINE JOINER LOCKSTITCH) Narrative Dwight Quintero CRNA - 11/18/2024 9:01 AM WAISTLINE JOINER LOCKSTITCH Dwight Quintero CRNA 11/18/2024 9:01 AM Peripheral IV Catheter Patient location: pre-op holding Staff: Placed by: DRAW HAND: Dwight Quintero CRNA Preprocedure prep: Prep solution: chlorhexadine PPE: gloves and provider hat/mask PIV line: Laterality: right Site: forearm Catheter size: 22 g Technique: anatomical landmarks and direct visualization Procedure details: good blood return and occlusive dressing applied Number of attempts: 1 Assessment: Events: patient tolerated procedure well with no complications Elba Medina MD PhD ANESTHESIA ORDERABLES Final R esult * OK AN PROCEDURE PLACEHOLDER (11/18/2024 9:01 AM WAISTLINE JOINER LOCKSTITCH) Dwight Staton CRNA - 11/18/2024 9:01 AM WAISTLINE JOINER LOCKSTITCH Dwight Quintero CRNA 11/18/2024 9:01 AM Peripheral [...] tolerated procedure well with no complications Result [facility] Elba Medina MD PhD ANESTHESIA ORDERABLES Final R esult * OK AN ELECTIVE ENDOTRACHEAL AIRWAY, OK AN PROCEDURE PLACEHOLDER (11/18/2024 9:00 AM WAISTLINE JOINER LOCKSTITCH) Dwight Staton CRNA - 11/18/2024 9:00 AM WAISTLINE JOINER LOCKSTITCH Dwight Quintero CRNA 11/18/2024 9:01 AM Airway Patient location: OR Urgency: elective Indications for airway management: anesthesia and airway protection Difficult airway: no Staff: Supervising provider: Elba Medina MD PhD Placed by: DRAW HAND: Dwight Quintero CRNA Emergent airway documentation: Risks [...] * (ABNORMAL) POCT glucose (11/18/2024 8:48 AM WAISTLINE JOINER LOCKSTITCH) Glucose, POC 239(H) 70 - 199 mg/dL Blood 11/18/2024 8:48 AM WAISTLINE JOINER LOCKSTITCH 11/18/2024 8:48 AM WAISTLINE JOINER LOCKSTITCH Hesham Madsen MD LAB POCT ORDERABLES - DEVICE Final Result Performing Organization Address [facility] Phone Number [facility] [place] [place] [address] * POCT glucose (11/18/2024 6:37 AM WAISTLINE JOINER LOCKSTITCH) Glucose, POC 183 70 - 199 mg/dL Blood 11/18/2024 6:37 AM WAISTLINE JOINER LOCKSTITCH 11/18/2024 6:37 AM WAISTLINE JOINER LOCKSTITCH Hesham Madsen MD LAB POCT ORDERABLES - DEVICE Final Result Performing Organization Address [facility] Phone Number [facility] [place] [address] * (ABNORMAL) POCT glucose (11/17/2024 11:48 AM WAISTLINE JOINER LOCKSTITCH) Glucose, POC 320(H) 70 - 199 mg/dL Blood 11/17/2024 11:4 8 AM WAISTLINE JOINER LOCKSTITCH 11/17/2024 11:48 AM WAISTLINE JOINER LOCKSTITCH Jaylene Huang MD LAB POCT ORDERABLES - DEVICE Final Result Performing Organization Address [facility] Phone Number [facility] ([place]) [address] [facility] [place] [address] * POCT glucose (11/17/2024 7:55 AM WAISTLINE JOINER LOCKSTITCH) Glucose, POC 189 70 - 199 mg/dL Blood 11/17/2024 7:55 AM WAISTLINE JOINER LOCKSTITCH 11/17/2024 7:55 AM WAISTLINE JOINER LOCKSTITCH us Jaylene Huang MD LAB POCT ORDERABLES - DEVICE Final Result Performing Organization Address [facility] Co de Phone Number [facility] ([place]) [address] [facility] [place] [address] * eGFR (11/17/2024 2:31 AM WAISTLINE JOINER LOCKSTITCH) Pathologist [facility] Department eGFR >90 >=60 mL/min/1. 73 m2 Comment: [...] last reviewed 2021. Blood 11/17/2024 2:31 AM WAISTLINE JOINER LOCKSTITCH 11/17/2024 2:50 AM WAISTLINE JOINER LOCKSTITCH us Jaylene Huang MD LAB BLOOD ORDERABLES Final Re sult Performing Organization Address City/[facility]/ZIP Co de Phone Number [facility] ([place]) [address] [place] [address] * (ABNORMAL) Basic metabolic panel (11/17/2024 2:31 AM WAISTLINE JOINER LOCKSTITCH) Sodium 143 135 - 145 mmol/L Potassium, pl 4.4 3.3 - 4.9 mmol/L [facility] ([place]) Chloride 99 97 - 110 mmol/L [facility] ([place]) CO2 33(H) 22 - 32 mmol/L [facility] ([place]) Anion gap 12 2 - 15 mmol/L [facility] ([place]) BUN 20 6 - 25 mg/dL [facility] ([place]) Creatinine 0.51(L) 0.60 - 1.10 mg/dL [facility] ([place]) Glucose 177 70 - 199 mg/dL [facility] ([place]) Comment: Interpretive Data Fasting glucose >/= [...] 2022. Calcium 9.5 8.5 - 10.3 mg/dL [facility] ([place]) Blood 11/17/2024 2:31 AM WAISTLINE JOINER LOCKSTITCH 11/17/2024 2:50 AM WAISTLINE JOINER LOCKSTITCH us Jaylene Huang MD LAB BLOOD ORDERABLES Final Re sult [facility] ([place] [address] [facility] [place] [address] * POCT glucose (11/17/2024 1:38 AM WAISTLINE JOINER LOCKSTITCH) Glucose, POC 175 70 - 199 mg/dL Blood 11/17/2024 1:38 AM WAISTLINE JOINER LOCKSTITCH 11/17/2024 1:38 AM WAISTLINE JOINER LOCKSTITCH Jaylene Huang MD LAB POCT ORDERABLES - DEVICE Final Result Performing Organization Address [facility]/ZIP Co de Phone Number [facility] ([place]) [address] [place] [address] * (ABNORMAL) POCT glucose (11/16/2024 8:33 PM WAISTLINE JOINER LOCKSTITCH) Glucose, POC 217(H) 70 - 199 mg/dL Blood 11/16/2024 8:33 PM WAISTLINE JOINER LOCKSTITCH 11/16/2024 8:33 PM WAISTLINE JOINER LOCKSTITCH Jaylene Huang MD LAB POCT ORDERABLES - DEVICE Final Result Performing Organization Address [facility] Co de Phone Number [facility] ([place]) [address] [place] [address] * POCT glucose (11/16/2024 4:29 PM WAISTLINE JOINER LOCKSTITCH) Glucose, POC 198 70 - 199 mg/dL Blood 11/16/2024 4:29 PM WAISTLINE JOINER LOCKSTITCH 11/16/2024 4:29 PM WAISTLINE JOINER LOCKSTITCH Jaylene Huang MD LAB POCT ORDERABLES - DEVICE Final Result Performing Organization Address [facility] Co de Phone Number [facility] ([place]) [address] [facility] [place] [address] * COVID-19 Coronavirus RNA Nasopharyngeal (11/16/2024 12:37 PM WAISTLINE JOINER LOCKSTITCH) COVID-19 RNA Negative Negative Nasopharyngeal 11/16/2024 12 :37 PM WAISTLINE JOINER LOCKSTITCH 11/16/2024 12:46 PM WAISTLINE JOINER LOCKSTITCH Narrative [facility] - 11/16/2024 1:27 PM WAISTLINE JOINER LOCKSTITCH Is the patient experiencing any symptoms consistent with COVID (eg. Fever, cough, shortness of breath)?->No What is the reason for testing?->Screening for post-acute care placement Interpretive data: Testing performed by [facility]. This test is performed using the [employer] Xpert Xpress CoV-2 plus assay. This is a real-time RT-PCR test intended for the qualitative detection of nucleic acid from the SARS-CoV-2. This assay has been cleared by the [place] Food and Drug administration. The performance characteristics have been verified by [facility]. Results must be considered in the clinical context, and a negative result does not rule out infection. Interpretive data last revised 2024. Interpretive data: Testing performed by [facility]. This test is performed using the [employer] Xpert Xpress CoV-2 plus assay. This is a real-time RT-PCR test intended for the qualitative detection of nucleic acid from the SARS-CoV-2. This assay has been cleared by the [place] Food and Drug administration. The performance characteristics have been verified by [facility]. Results must be considered in the clinical context, and a negative result does not rule out infection. Interpretive data last revised 2024. Jaylene Huang MD LAB MICROBIOLOGY - GENERAL OR DERABLES Final Result [facility] ([place]) [address] [facility] [place] [address] * (ABNORMAL) POCT glucose (11/16/2024 11:37 AM WAISTLINE JOINER LOCKSTITCH) Glucose, POC 221(H) 70 - 199 mg/dL Blood 11/16/2024 11:3 7 AM WAISTLINE JOINER LOCKSTITCH 11/16/2024 11:37 AM WAISTLINE JOINER LOCKSTITCH Jaylene Huang MD LAB POCT ORDERABLES - DEVICE Final Result [facility] ([place]) [address] [facility] [place] [address] * POCT glucose (11/16/2024 8:06 AM WAISTLINE JOINER LOCKSTITCH) Glucose, POC 181 70 - 199 mg/dL Blood 11/16/2024 8:06 AM WAISTLINE JOINER LOCKSTITCH 11/16/2024 8:06 AM WAISTLINE JOINER LOCKSTITCH us Jaylene Huang MD LAB POCT ORDERABLES - DEVICE Final Result [facility] ([place]) [address] [facility] [place] [address] * (ABNORMAL) POCT glucose (11/16/2024 1:44 AM WAISTLINE JOINER LOCKSTITCH) Glucose, POC 261(H) 70 - 199 mg/dL Blood 11/16/2024 1:44 AM WAISTLINE JOINER LOCKSTITCH 11/16/2024 1:44 AM WAISTLINE JOINER LOCKSTITCH us Jaylene Huang MD LAB POCT ORDERABLES - DEVICE Final Result Performing Organization Address City/[facility]/ZIP Co de Phone Number ALLY CUMMINGS ([place]) 1 [facility] [place] [address] * POCT glucose (11/15/2024 8:17 PM WAISTLINE JOINER LOCKSTITCH) Glucose, POC 94 70 - 199 mg/dL Blood 11/15/2024 8:17 PM WAISTLINE JOINER LOCKSTITCH 11/15/2024 8:17 PM WAISTLINE JOINER LOCKSTITCH us Jaylene Huang MD LAB POCT ORDERABLES - DEVICE Final Result Performing Organization Address City/[facility]/ZIP Co de Phone Number ALLY CUM[facility] ([place]) 1 [facility] [place] [address] * (ABNORMAL) POCT glucose (11/15/2024 5:06 PM WAISTLINE JOINER LOCKSTITCH) Glucose, POC 221(H) 70 - 199 mg/dL Blood 11/15/2024 5:06 PM WAISTLINE JOINER LOCKSTITCH 11/15/2024 5:06 PM WAISTLINE JOINER LOCKSTITCH us Jaylene Huang MD LAB POCT ORDERABLES - DEVICE Final Result [facility] CUMM[facility] ([place]) [address] [place] [address] * (ABNORMAL) POCT glucose (11/15/2024 11:45 AM WAISTLINE JOINER LOCKSTITCH) Glucose, POC 324(H) 70 - 199 mg/dL Blood 11/15/2024 11:4 5 AM WAISTLINE JOINER LOCKSTITCH 11/15/2024 11:45 AM WAISTLINE JOINER LOCKSTITCH Jaylene Huang MD LAB POCT ORDERABLES - DEVICE Final Result [facility] C[facility] ([place]) 1 [facility] [place] [address] * (ABNORMAL) POCT glucose (11/15/2024 8:08 AM WAISTLINE JOINER LOCKSTITCH) Glucose, POC 340(H) 70 - 199 mg/dL Blood 11/15/2024 8:08 AM WAISTLINE JOINER LOCKSTITCH 11/15/2024 8:08 AM WAISTLINE JOINER LOCKSTITCH Jaylene Huang MD LAB POCT ORDERABLES - DEVICE Final Result Performing Organization Address City/[facility]/ZIP Co de Phone Number [facility] ([place]) 1 [facility] [place] [address] * (ABNORMAL) Potassium (11/15/2024 5:04 AM WAISTLINE JOINER LOCKSTITCH) Potassium, pl 3.2(L) 3.3 - 4.9 mmol/L Blood 11/15/2024 5:04 AM WAISTLINE JOINER LOCKSTITCH 11/15/2024 5:55 AM WAISTLINE JOINER LOCKSTITCH Jaylene Huang MD LAB BLOOD ORDERABLES Final Re sult [facility] ([place]) 1 [facility] [place] [address] * Magnesium (11/15/2024 5:04 AM WAISTLINE JOINER LOCKSTITCH) Magnesium 2.0 1.4 - 2.5 mg/dL Blood 11/15/2024 5:04 AM WAISTLINE JOINER LOCKSTITCH 11/15/2024 5:55 AM WAISTLINE JOINER LOCKSTITCH us Jaylene Huang MD LAB BLOOD ORDERABLES Final Re sult [facility] CUMM[facility] ([place]) 1 [facility] [place] [address] * POCT glucose (11/15/2024 4:01 AM WAISTLINE JOINER LOCKSTITCH) Glucose, POC 135 70 - 199 mg/dL Blood 11/15/2024 4:01 AM WAISTLINE JOINER LOCKSTITCH 11/15/2024 4:01 AM WAISTLINE JOINER LOCKSTITCH Jaylene Huang MD LAB POCT ORDERABLES - DEVICE Final Result Performing Organization Address [facility]/ZIP Co de Phone Number ALLY CUMMINGS ([place]) 1 [facility] [place] [address] * POCT glucose (11/15/2024 1:51 AM WAISTLINE JOINER LOCKSTITCH) Glucose, POC 170 70 - 199 mg/dL Blood 11/15/2024 1:51 AM WAISTLINE JOINER LOCKSTITCH 11/15/2024 1:51 AM WAISTLINE JOINER LOCKSTITCH Jaylene Huang MD LAB POCT ORDERABLES - DEVICE Final Result Performing Organization Address City/[facility]/ZIP Co de Phone Number ALLY CUMMINGS ([place]) 1 [facility] [place] [address] * POCT glucose (11/14/2024 8:08 PM WAISTLINE JOINER LOCKSTITCH) Glucose, POC 122 70 - 199 mg/dL Blood 11/14/2024 8:08 PM WAISTLINE JOINER LOCKSTITCH 11/14/2024 8:08 PM WAISTLINE JOINER LOCKSTITCH Jaylene Huang MD LAB POCT ORDERABLES - DEVICE Final Result ALLY CUM[facility] ([place]) 1 [facility] [place] [address] * (ABNORMAL) POCT glucose (11/14/2024 4:53 PM WAISTLINE JOINER LOCKSTITCH) Glucose, POC 334(H) 70 - 199 mg/dL Blood 11/14/2024 4:53 PM WAISTLINE JOINER LOCKSTITCH 11/14/2024 4:53 PM WAISTLINE JOINER LOCKSTITCH us Jaylene Huang MD LAB POCT ORDERABLES - DEVICE Final Result ALLY CUMM[facility] ([place]) [address] [place] [address] * (ABNORMAL) POCT glucose (11/14/2024 12:17 PM WAISTLINE JOINER LOCKSTITCH) Glucose, POC 256(H) 70 - 199 mg/dL Blood 11/14/2024 12:1 7 PM WAISTLINE JOINER LOCKSTITCH 11/14/2024 12:17 PM WAISTLINE JOINER LOCKSTITCH us Jaylene Huang MD LAB POCT ORDERABLES - DEVICE Final Result Performing Organization Address City/[facility]/ZIP Co de Phone Number ALLY CUMMINGS ([place]) 1 [facility] [place] [address] * POCT glucose (11/14/2024 7:56 AM WAISTLINE JOINER LOCKSTITCH) Glucose, POC 191 70 - 199 mg/dL Blood 11/14/2024 7:56 AM WAISTLINE JOINER LOCKSTITCH 11/14/2024 7:56 AM WAISTLINE JOINER LOCKSTITCH Jaylene Huang MD LAB POCT ORDERABLES - DEVICE Final Result Performing Organization Address City/[facility]/ZIP Co de Phone Number ALLY CUMMINGS ([place]) 1 [facility] [place] [address] * (ABNORMAL) POCT glucose (11/14/2024 2:49 AM WAISTLINE JOINER LOCKSTITCH) Glucose, POC 276(H) 70 - 199 mg/dL Blood 11/14/2024 2:49 AM WAISTLINE JOINER LOCKSTITCH 11/14/2024 2:49 AM WAISTLINE JOINER LOCKSTITCH us Jaylene Huang MD LAB POCT ORDERABLES - DEVICE Final Result Performing Organization Address [facility]/ZIP Co de Phone Number ALLY CUMMINGS ([place]) 1 [facility] [place] [address] * (ABNORMAL) POCT glucose (11/13/2024 8:19 PM WAISTLINE JOINER LOCKSTITCH) Glucose, POC 204(H) 70 - 199 mg/dL Blood 11/13/2024 8:19 PM WAISTLINE JOINER LOCKSTITCH 11/13/2024 8:19 PM WAISTLINE JOINER LOCKSTITCH us Jaylene Huang MD LAB POCT ORDERABLES - DEVICE Final Result Performing Organization Address [facility] Co de Phone Number ALLY CUMMINGS ([place]) 1 [facility] [place] [address] * POCT glucose (11/13/2024 4:52 PM WAISTLINE JOINER LOCKSTITCH) Glucose, POC 192 70 - 199 mg/dL Blood 11/13/2024 4:52 PM WAISTLINE JOINER LOCKSTITCH 11/13/2024 4:52 PM WAISTLINE JOINER LOCKSTITCH us Jaylene Huang MD LAB POCT ORDERABLES - DEVICE Final Result Performing Organization Address [facility] Co de Phone Number ALLY CUMMINGS ([place]) 1 [facility] [place] [address] * (ABNORMAL) POCT glucose (11/13/2024 11:52 AM WAISTLINE JOINER LOCKSTITCH) Glucose, POC 227(H) 70 - 199 mg/dL Blood 11/13/2024 11:5 2 AM WAISTLINE JOINER LOCKSTITCH 11/13/2024 11:52 AM WAISTLINE JOINER LOCKSTITCH Jaylene Huang MD LAB POCT ORDERABLES - DEVICE Final Result ALLY CUMMINGS ([place]) 1 [facility] [place] [address] * (ABNORMAL) POCT glucose (11/13/2024 7:55 AM WAISTLINE JOINER LOCKSTITCH) Glucose, POC 282(H) 70 - 199 mg/dL Blood 11/13/2024 7:55 AM WAISTLINE JOINER LOCKSTITCH 11/13/2024 7:55 AM WAISTLINE JOINER LOCKSTITCH Jaylene Huang MD LAB POCT ORDERABLES - DEVICE Final Result ALLY CUMMINGS ([place]) 1 [facility] [place] [address] * (ABNORMAL) POCT glucose (11/13/2024 1:40 AM WAISTLINE JOINER LOCKSTITCH) Glucose, POC 308(H) 70 - 199 mg/dL Blood 11/13/2024 1:40 AM WAISTLINE JOINER LOCKSTITCH 11/13/2024 1:40 AM WAISTLINE JOINER LOCKSTITCH Jaylene Huang MD LAB POCT ORDERABLES - DEVICE Final Result Performing Organization Address City/[facility]/ZIP Co de Phone Number ALLY CUMMINGS ([place]) 1 [facility] [place] [address] * (ABNORMAL) POCT glucose (11/12/2024 8:24 PM WAISTLINE JOINER LOCKSTITCH) Glucose, POC 293(H) 70 - 199 mg/dL Blood 11/12/2024 8:24 PM WAISTLINE JOINER LOCKSTITCH 11/12/2024 8:24 PM WAISTLINE JOINER LOCKSTITCH Jaylene Huang MD LAB POCT ORDERABLES - DEVICE Final Result ALLY CUMMINGS ([place]) 1 [facility] [place] [address] * (ABNORMAL) POCT glucose (11/12/2024 5:12 PM WAISTLINE JOINER LOCKSTITCH) Pathologist [facility] Glucose, POC 331(H) 70 - 199 mg/dL Blood 11/12/2024 5:12 PM WAISTLINE JOINER LOCKSTITCH 11/12/2024 5:12 PM WAISTLINE JOINER LOCKSTITCH Jaylene Huang MD LAB POCT ORDERABLES - DEVICE Final Result Performing Organization Address City/[facility] Co de Phone Number ALLY CUMMINGS ([place]) 1 [facility] [place] [address] * (ABNORMAL) POCT glucose (11/12/2024 11:59 AM WAISTLINE JOINER LOCKSTITCH) [facility] Glucose, POC 299(H) 70 - 199 mg/dL Blood 11/12/2024 11:5 9 AM WAISTLINE JOINER LOCKSTITCH 11/12/2024 11:59 AM WAISTLINE JOINER LOCKSTITCH Jaylene Huang MD LAB POCT ORDERABLES - DEVICE Final Result Performing Organization Address [facility] Co de Phone Number [facility] ([place]) 1 [facility] [place] [address] * (ABNORMAL) POCT glucose (11/12/2024 8:30 AM WAISTLINE JOINER LOCKSTITCH) [facility] Glucose, POC 246(H) 70 - 199 mg/dL Blood 11/12/2024 8:30 AM WAISTLINE JOINER LOCKSTITCH 11/12/2024 8:30 AM WAISTLINE JOINER LOCKSTITCH Jaylene Huang MD LAB POCT ORDERABLES - DEVICE Final Result Performing Organization Address City/[facility] Co de Phone Number [facility] ([place]) 1 [facility] [place] [address] * eGFR (11/12/2024 3:07 AM WAISTLINE JOINER LOCKSTITCH) [facility] eGFR >90 >=60 mL/min/1. 73 m2 [...] last reviewed 2021. Blood 11/12/2024 3:07 AM WAISTLINE JOINER LOCKSTITCH 11/12/2024 3:48 AM WAISTLINE JOINER LOCKSTITCH us Sanjeev Gonzales MD LAB BLOOD ORDERABLES Final Resu lt [facility] ([place]) 1 [facility] [place] [address] * Differential, auto (11/12/2024 3:07 AM WAISTLINE JOINER LOCKSTITCH) Neutrophil abs 6.3 1.5 - 6.5 K/cumm [...] revised on 2018. Blood 11/12/2024 3:07 AM WAISTLINE JOINER LOCKSTITCH 11/12/2024 3:46 AM WAISTLINE JOINER LOCKSTITCH us Sanjeev Gonzales MD LAB BLOOD ORDERABLES Final Resu lt [facility] ([place]) 1 [facility] [place] [address] * (ABNORMAL) CBC with auto differential (11/12/2024 3:07 AM WAISTLINE JOINER LOCKSTITCH) WBC 8.7 3.8 - 9.9 K/cumm Hgb 8.8(L) 11.9 - 15.5 g/dL [facility] ([place]) Hct 34.2(L) 35.6 - 45.5 % [facility] ([place]) Plt 342 150 - 400 K/cumm [facility] ([place]) MPV 10.5 9.1 - 12.3 [...] [facility] ([place]) Blood 11/12/2024 3:07 AM WAISTLINE JOINER LOCKSTITCH 11/12/2024 3:46 AM WAISTLINE JOINER LOCKSTITCH Sanjeev Gonzales MD LAB BLOOD ORDERABLES Final Resu lt Performing Organization Address City/[facility]/ZIP Co de Phone Number [facility] ([place]) 1 [facility] [employer] [place] [address] * Magnesium (11/12/2024 3:07 AM WAISTLINE JOINER LOCKSTITCH) [facility] Magnesium 2.3 1.4 - 2.5 mg/dL Blood 11/12/2024 3:07 AM WAISTLINE JOINER LOCKSTITCH 11/12/2024 3:48 AM WAISTLINE JOINER LOCKSTITCH Sanjeev Gonzales MD LAB BLOOD ORDERABLES Final Resu lt ALLY CUMMINGS ([place]) 1 [facility] [employer] [place] [place] [address] * (ABNORMAL) Comprehensive metabolic panel (11/12/2024 3:07 AM WAISTLINE JOINER LOCKSTITCH) Sodium 137 135 - 145 mmol/L Potassium, pl 3.8 3.3 - 4.9 mmol/L [facility] ([place] Chloride 97 97 - 110 mmol/L [facility] ([place]) CO2 26 22 - [...] [facility] ([place]) Blood 11/12/2024 3:07 AM WAISTLINE JOINER LOCKSTITCH 11/12/2024 3:48 AM WAISTLINE JOINER LOCKSTITCH us Sanjeev Gonzales MD LAB BLOOD ORDERABLES Final Resu lt ALLY CUMMINGS ([place]) 1 [facility] [place] [address] * (ABNORMAL) POCT glucose (11/12/2024 2:49 AM WAISTLINE JOINER LOCKSTITCH) [facility] Glucose, POC 371(H) 70 - 199 mg/dL Comment:Glu2: RN/ Notified Blood 11/12/2024 2:49 AM WAISTLINE JOINER LOCKSTITCH 11/12/2024 2:49 AM WAISTLINE JOINER LOCKSTITCH us Jaylene Huang MD LAB POCT ORDERABLES - DEVICE Final Result Performing Organization Address [facility] Co de Phone Number ALLY CUMMINGS ([place]) 1 [facility] [place] [address] * (ABNORMAL) POCT glucose (11/11/2024 8:20 PM WAISTLINE JOINER LOCKSTITCH) Glucose, POC 277(H) 70 - 199 mg/dL Comment:Glu2: RN/ Notified Blood 11/11/2024 8:20 PM WAISTLINE JOINER LOCKSTITCH 11/11/2024 8:20 PM WAISTLINE JOINER LOCKSTITCH us Jaylene Huang MD LAB POCT ORDERABLES - DEVICE Final Result Performing Organization Address [facility] de Phone Number ALLY CUMMINGS ([place]) 1 [facility] [place] [address] * POCT glucose (11/11/2024 5:18 PM WAISTLINE JOINER LOCKSTITCH) Glucose, POC 188 70 - 199 mg/dL Blood 11/11/2024 5:18 PM WAISTLINE JOINER LOCKSTITCH 11/11/2024 5:18 PM WAISTLINE JOINER LOCKSTITCH Jaylene Huang MD LAB POCT ORDERABLES - DEVICE Final Result Performing Organization Address [facility] Co de Phone Number ALLY CUMMINGS ([place]) 1 [facility] [place] [address] * (ABNORMAL) POCT glucose (11/11/2024 2:40 PM WAISTLINE JOINER LOCKSTITCH) Glucose, POC 296(H) 70 - 199 mg/dL Blood 11/11/2024 2:40 PM WAISTLINE JOINER LOCKSTITCH 11/11/2024 2:40 PM WAISTLINE JOINER LOCKSTITCH us Jaylene Huang MD LAB POCT ORDERABLES - DEVICE Final Result Performing Organization Address City/[facility]/ZIP Co de Phone Number ALLY CUMMINGS ([place]) 1 [facility] [place] [address] * (ABNORMAL) POCT glucose (11/11/2024 11:44 AM WAISTLINE JOINER LOCKSTITCH) Glucose, POC 388(H) 70 - 199 mg/dL Blood 11/11/2024 11:4 4 AM WAISTLINE JOINER LOCKSTITCH 11/11/2024 11:44 AM WAISTLINE JOINER LOCKSTITCH Jaylene Huang MD LAB POCT ORDERABLES - DEVICE Final Result Performing Organization Address [facility] Co de Phone Number ALLY CUMMINGS ([place]) 1 [facility] [place] [address] * (ABNORMAL) POCT glucose (11/11/2024 8:18 AM WAISTLINE JOINER LOCKSTITCH) Glucose, POC 245(H) 70 - 199 mg/dL Blood 11/11/2024 8:18 AM WAISTLINE JOINER LOCKSTITCH 11/11/2024 8:18 AM WAISTLINE JOINER LOCKSTITCH Jaylene Huang MD LAB POCT ORDERABLES - DEVICE Final Result Performing Organization Address [facility] Co de Phone Number ALLY CUMMINGS ([place]) 1 [facility] [place] [address] * (ABNORMAL) POCT glucose (11/11/2024 3:46 AM WAISTLINE JOINER LOCKSTITCH) Glucose, POC 296(H) 70 - 199 mg/dL Blood 11/11/2024 3:46 AM WAISTLINE JOINER LOCKSTITCH 11/11/2024 3:46 AM WAISTLINE JOINER LOCKSTITCH us Jaylene Huang MD LAB POCT ORDERABLES - DEVICE Final Result Performing Organization Address City/[facility]/ZIP Co de Phone Number ALLY CUMMINGS ([place]) 1 [facility] [place] [address] * eGFR (11/11/2024 2:16 AM WAISTLINE JOINER LOCKSTITCH) eGFR >90 >=60 mL/min/1. 73 m2 Comment: [...] last reviewed 2021. Blood 11/11/2024 2:16 AM WAISTLINE JOINER LOCKSTITCH 11/11/2024 2:42 AM WAISTLINE JOINER LOCKSTITCH us Sanjeev Gonzales MD LAB BLOOD ORDERABLES Final Resu lt [facility] ([place]) 1 [facility] [place] [address] * Differential, auto (11/11/2024 2:16 AM WAISTLINE JOINER LOCKSTITCH) Neutrophil abs 5.4 1.5 - 6.5 K/cumm Imm gran abs 0.1 0.0 - 0.1 K/cumm [facility] ([place]) Lymphocyte abs 1.7 0.8 - 3.3 K/cumm [facility] ([place]) Monocyte abs 0.5 0.2 - 0.8 K/cumm [facility] ([place]) Eosinophil abs 0.0 0.0 - 0.5 K/cumm [facility] ([place]) Basophil abs 0.0 0.0 - 0.1 K/cumm [facility] ([place]) Neutrophil pct 70.0 % [facility] ([place]) Comment: Interpretive Data Percent cell count reference ranges are not reported, since discordance with absolute values may lead to misinterpretation of CBC data. Current Interpretive Data was last revised on 2018. Imm gran pct 1.2 % [facility] ([place]) Comment: Interpretive Data [...] revised on 2018. Monocyte pct 6.0 % [facility] ([place]) Comment: Interpretive Data Percent cell [...] revised on 2018. Blood 11/11/2024 2:16 AM WAISTLINE JOINER LOCKSTITCH 11/11/2024 2:41 AM WAISTLINE JOINER LOCKSTITCH us Sanjeev Gonzales MD LAB BLOOD ORDERABLES Final Resu lt [facility] ([place]) 1 [facility] Department of Laboratories [place], [place] [id number] * (ABNORMAL) CBC with auto differential (11/11/2024 2:16 AM WAISTLINE JOINER LOCKSTITCH) WBC 7.7 3.8 - 9.9 K/cumm Hgb [...] [facility] ([place]) Blood 11/11/2024 2:16 AM WAISTLINE JOINER LOCKSTITCH 11/11/2024 2:41 AM WAISTLINE JOINER LOCKSTITCH us Sanjeev Gonzales MD LAB BLOOD ORDERABLES Final Resu lt [facility] ([place]) 1 [facility] [employer] [place] [place] [address] * Magnesium (11/11/2024 2:16 AM WAISTLINE JOINER LOCKSTITCH) Magnesium 2.4 1.4 - 2.5 mg/dL Blood 11/11/2024 2:16 AM WAISTLINE JOINER LOCKSTITCH 11/11/2024 2:42 AM WAISTLINE JOINER LOCKSTITCH Sanjeev Gonzales MD LAB BLOOD ORDERABLES Final Resu lt [facility] ([place]) 1 [facility] [employer] [place] [place] [address] * (ABNORMAL) Comprehensive metabolic panel (11/11/2024 2:16 AM WAISTLINE JOINER LOCKSTITCH) Sodium 139 135 - 145 mmol/L Potassium, [...] [facility] ([place]) Blood 11/11/2024 2:16 AM WAISTLINE JOINER LOCKSTITCH 11/11/2024 2:42 AM WAISTLINE JOINER LOCKSTITCH us Sanjeev Gonzales MD LAB BLOOD ORDERABLES Final Resu lt [facility] ([place]) [address] [place] [address] * (ABNORMAL) POCT glucose (11/11/2024 1:41 AM WAISTLINE JOINER LOCKSTITCH) Glucose, POC 330(H) 70 - 199 mg/dL Blood 11/11/2024 1:41 AM WAISTLINE JOINER LOCKSTITCH 11/11/2024 1:41 AM WAISTLINE JOINER LOCKSTITCH Jaylene Huang MD LAB POCT ORDERABLES - DEVICE Final Result [facility] ([place]) [address] [place] [address] * (ABNORMAL) POCT glucose (11/10/2024 8:50 PM WAISTLINE JOINER LOCKSTITCH) Glucose, POC 286(H) 70 - 199 mg/dL Blood 11/10/2024 8:50 PM WAISTLINE JOINER LOCKSTITCH 11/10/2024 8:50 PM WAISTLINE JOINER LOCKSTITCH us Jaylene Huang MD LAB POCT ORDERABLES - DEVICE Final Result Performing Organization Address City/[facility]/ZIP Co de Phone Number [facility] ([place]) 1 [facility] [place] [address] * (ABNORMAL) POCT glucose (11/10/2024 4:52 PM WAISTLINE JOINER LOCKSTITCH) Glucose, POC 219(H) 70 - 199 mg/dL Blood 11/10/2024 4:52 PM WAISTLINE JOINER LOCKSTITCH 11/10/2024 4:52 PM WAISTLINE JOINER LOCKSTITCH Jaylene Huang MD LAB POCT ORDERABLES - DEVICE Final Result [facility] ([place]) 1 [facility] [place] [address] * (ABNORMAL) POCT glucose (11/10/2024 11:57 AM WAISTLINE JOINER LOCKSTITCH) Glucose, POC 303(H) 70 - 199 mg/dL Blood 11/10/2024 11:5 7 AM WAISTLINE JOINER LOCKSTITCH 11/10/2024 11:57 AM WAISTLINE JOINER LOCKSTITCH us Jaylene Huang MD LAB POCT ORDERABLES - DEVICE Final Result [facility] ([place]) [address] [place] [address] [place] [address] * TRANSTHORACIC ECHO (TTE) LIMITED/FOLLOW UP WO DOPPLER/CF W CONTRAST (11/10/2024 9:50 AM WAISTLINE JOINER LOCKSTITCH) LV EF 15 % CONS SCIMAGE Anatomical Region Laterality Modality Ultrasound 11/10/2024 9:09 AM WAISTLINE JOINER LOCKSTITCH Narrative 11/10/2024 11:03 AM WAISTLINE JOINER LOCKSTITCH [address] [address] Limited Echocardiogram Report Patient Name: AGUSTIN DE LEÓN Caitlin : 1965 Study Date: 11/10/2024 9:09:45 AM Gender: F Tech: AA Location: [id number] Ref Provider: RACHEAL SAUL Height(Cm): BSA: Weight(Kg): [...] By: Dr Racheal Saul 11/10/2024 11:02:13 AM WAISTLINE JOINER LOCKSTITCH Procedure Note Racheal Saul MD - 11/10/[address] [place] [address] Limited Echocardiogram Report Patient Name: AGUSTIN DE LEÓN Cailtin : 1965 Study Date: 11/10/2024 9:09:45 AM Gender: F Tech: AA Location: [place] [address] Ref Provider: RACHEAL SAUL Height(Cm): BSA: Weight(Kg): [...] By: Dr Racheal Saul 11/10/2024 11:02:13 AM WAISTLINE JOINER LOCKSTITCH us Racheal Saul MD CV ECHO PROCEDURES Final Resu lt * (ABNORMAL) POCT glucose (11/10/2024 8:00 AM WAISTLINE JOINER LOCKSTITCH) Glucose, POC 247(H) 70 - 199 mg/dL Blood 11/10/2024 8:00 AM WAISTLINE JOINER LOCKSTITCH 11/10/2024 8:00 AM WAISTLINE JOINER LOCKSTITCH us Jaylene Huang MD LAB POCT ORDERABLES - DEVICE Final Result Performing Organization Address [facility]/ZIP Co de Phone Number [facility] ([place]) 1 [facility] [place] [address] * eGFR (11/10/2024 2:27 AM WAISTLINE JOINER LOCKSTITCH) eGFR >90 >=60 mL/min/1. 73 m2 Comment: [...] last reviewed 2021. Blood 11/10/2024 2:27 AM WAISTLINE JOINER LOCKSTITCH 11/10/2024 2:58 AM WAISTLINE JOINER LOCKSTITCH us Sanjeev Gonzales MD LAB BLOOD ORDERABLES Final Resu lt [facility] ([place]) [address] [place] [address] * Differential, auto (11/10/2024 2:27 AM WAISTLINE JOINER LOCKSTITCH) Neutrophil abs 4.5 1.5 - 6.5 K/cumm Imm gran abs 0.1 0.0 - 0.1 K/cumm [facility] ([place]) Lymphocyte abs 1.4 0.8 - 3.3 K/cumm [facility] ([place]) Monocyte abs 0.6 0.2 - 0.8 K/cumm [facility] ([place]) Eosinophil abs 0.1 0.0 - 0.5 K/cumm [facility] ([place]) Basophil abs 0.0 0.0 - 0.1 K/cumm [facility] ([place]) Neutrophil pct 67.4 % [facility] ([place]) Comment: Interpretive Data Percent cell count reference ranges are not reported, since discordance with absolute values may lead to misinterpretation of CBC data. Current Interpretive Data was last revised on 2018. Imm gran pct 0.7 % [facility] ([place]) Comment: Interpretive Data Percent cell count reference ranges are not reported, since discordance with absolute values may lead to misinterpretation of CBC data. Current Interpretive Data was last revised on 2018. Lymphocyte pct 21.4 % [facility] ([place]) Comment: Interpretive Data Percent cell count reference ranges are not reported, since discordance with absolute values may lead to misinterpretation of CBC data. Current Interpretive Data was last revised on 2018. Monocyte pct 8.7 % [facility] ([place]) Comment: Interpretive Data Percent cell count reference ranges are not reported, since discordance with absolute values may lead to misinterpretation of CBC data. Current Interpretive Data was last revised on 2018. Eosinophil pct 1.2 % [facility] ([place]) Comment: Interpretive Data Percent cell count reference ranges are not reported, since discordance with absolute values may lead to misinterpretation of CBC data. Current Interpretive Data was last revised on 2018. Basophil pct 0.6 % [facility] ([place]) Comment: Interpretive Data Percent cell count reference ranges are not reported, since discordance with absolute values may lead to misinterpretation of CBC data. Current Interpretive Data was last revised on 2018. Blood 11/10/2024 2:27 AM WAISTLINE JOINER LOCKSTITCH 11/10/2024 2:59 AM WAISTLINE JOINER LOCKSTITCH us Sanjeev Gonzales MD LAB BLOOD ORDERABLES Final Resu lt [facility] ([place]) 1 [facility] [place] [address] * (ABNORMAL) Pro B-type natriuretic peptide (11/10/2024 2:27 AM WAISTLINE JOINER LOCKSTITCH) NT-proBNP 3,012(H) <=300 pg/mL Comment: Interpretive Comments: [...] Revised Date: 2018. Blood 11/10/2024 2:27 AM WAISTLINE JOINER LOCKSTITCH 11/10/2024 2:58 AM WAISTLINE JOINER LOCKSTITCH us Jaylene Huang MD LAB BLOOD ORDERABLES Final Re sult [facility] ([place]) 1 [facility] [place] [address] * (ABNORMAL) CBC with auto differential (11/10/2024 2:27 AM WAISTLINE JOINER LOCKSTITCH) WBC 6.7 3.8 - 9.9 K/cumm Hgb [...] [facility] ([place]) Blood 11/10/2024 2:27 AM WAISTLINE JOINER LOCKSTITCH 11/10/2024 2:59 AM WAISTLINE JOINER LOCKSTITCH us Sanjeev Gonzales MD LAB BLOOD ORDERABLES Final Resu lt [facility] ([place]) 1 [facility] [place] [address] * Magnesium (11/10/2024 2:27 AM WAISTLINE JOINER LOCKSTITCH) Magnesium 2.3 1.4 - 2.5 mg/dL Blood 11/10/2024 2:27 AM WAISTLINE JOINER LOCKSTITCH 11/10/2024 2:58 AM WAISTLINE JOINER LOCKSTITCH us Sanjeev Gonzales MD LAB BLOOD ORDERABLES Final Resu lt [facility] ([place]) 1 [facility] [place] [address] * (ABNORMAL) Comprehensive metabolic panel (11/10/2024 2:27 AM WAISTLINE JOINER LOCKSTITCH) Sodium 140 135 - 145 mmol/L Potassium, [...] [facility] ([place]) Blood 11/10/2024 2:27 AM WAISTLINE JOINER LOCKSTITCH 11/10/2024 2:58 AM WAISTLINE JOINER LOCKSTITCH us Sanjeev Gonzales MD LAB BLOOD ORDERABLES Final Resu lt [facility] ([place]) 1 [facility] [place] [address] * (ABNORMAL) POCT glucose (11/10/2024 1:48 AM WAISTLINE JOINER LOCKSTITCH) Glucose, POC 295(H) 70 - 199 mg/dL Blood 11/10/2024 1:48 AM WAISTLINE JOINER LOCKSTITCH 11/10/2024 1:48 AM WAISTLINE JOINER LOCKSTITCH us Jaylene Huang MD LAB POCT ORDERABLES - DEVICE Final Result Performing Organization Address City/[facility]/ZIP Co de Phone Number [facility] ([place]) 1 [facility] [place] [address] * (ABNORMAL) POCT glucose (11/09/2024 8:39 PM WAISTLINE JOINER LOCKSTITCH) Glucose, POC 233(H) 70 - 199 mg/dL Blood 11/09/2024 8:39 PM WAISTLINE JOINER LOCKSTITCH 11/09/2024 8:39 PM WAISTLINE JOINER LOCKSTITCH us Jaylene Huang MD LAB POCT ORDERABLES - DEVICE Final Result [facility] ([place]) 1 [facility] [place] [address] * (ABNORMAL) POCT glucose (11/09/2024 5:23 PM WAISTLINE JOINER LOCKSTITCH) Glucose, POC 343(H) 70 - 199 mg/dL Blood 11/09/2024 5:23 PM WAISTLINE JOINER LOCKSTITCH 11/09/2024 5:23 PM WAISTLINE JOINER LOCKSTITCH Jaylene Huang MD LAB POCT ORDERABLES - DEVICE Final Result Performing Organization Address City/[facility]/ZIP Co de Phone Number [facility] ([place] 1 [facility] [place] [address] * (ABNORMAL) POCT glucose (11/09/2024 11:06 AM WAISTLINE JOINER LOCKSTITCH) Glucose, POC 292(H) 70 - 199 mg/dL Blood 11/09/2024 11:0 6 AM WAISTLINE JOINER LOCKSTITCH 11/09/2024 11:06 AM WAISTLINE JOINER LOCKSTITCH Jaylene Huang MD LAB POCT ORDERABLES - DEVICE Final Result Performing Organization Address [facility] de Phone Number [facility] ([place]) 1 [facility] [place] [address] * XR Chest 1 View (11/09/2024 10:32 AM WAISTLINE JOINER LOCKSTITCH) Anatomical Region Laterality Modality Body, Chest N/A Computed Radiogr aphy 11/09/2024 10:5 9 AM WAISTLINE JOINER LOCKSTITCH Narrative 11/09/2024 11:02 AM WAISTLINE JOINER LOCKSTITCH EXAM DESCRIPTION: XR CHEST 1 VIEW REASON [...] signed by Javan CASTILLO: ANNA Report ID: [id number] Reading Location: [id number] Procedure Note Javan Mcgill MD - 11/09/2024 [...] signed by Javan CASTILLO: ANNA Report ID: [id number] Reading Location: [id number] Jaylene Huang MD IMG XR PROCEDURES Final Resul t * POCT glucose (11/09/2024 7:16 AM WAISTLINE JOINER LOCKSTITCH) Glucose, POC 174 70 - 199 mg/dL Blood 11/09/2024 7:16 AM WAISTLINE JOINER LOCKSTITCH 11/09/2024 7:16 AM WAISTLINE JOINER LOCKSTITCH Jaylene Huang MD LAB POCT ORDERABLES - DEVICE Final Result [facility] ([place] 1 [facility] [place] [address] * eGFR (11/09/2024 2:08 AM WAISTLINE JOINER LOCKSTITCH) eGFR >90 >=60 mL/min/1. 73 m2 Comment: [...] last reviewed 2021. Blood 11/09/2024 2:08 AM WAISTLINE JOINER LOCKSTITCH 11/09/2024 3:53 AM WAISTLINE JOINER LOCKSTITCH us Sanjeev Gonzales MD LAB BLOOD ORDERABLES Final Resu lt [facility] ([place]) 1 [facility] [place] [address] * Differential, auto (11/09/2024 2:08 AM WAISTLINE JOINER LOCKSTITCH) Neutrophil abs 4.0 1.5 - 6.5 K/cumm Imm gran abs 0.1 0.0 - 0.1 K/cumm [facility] ([place]) Lymphocyte abs 1.8 0.8 - 3.3 K/cumm [facility] ([place]) Monocyte abs 0.6 0.2 - 0.8 K/cumm [facility] ([place]) Eosinophil abs 0.1 0.0 - 0.5 K/cumm [facility] ([place]) Basophil abs 0.0 0.0 - 0.1 K/cumm [facility] ([place]) Neutrophil pct 60.7 % [facility] [...] revised on 2018. Blood 11/09/2024 2:08 AM WAISTLINE JOINER LOCKSTITCH 11/09/2024 3:56 AM WAISTLINE JOINER LOCKSTITCH us Sanjeev Gonzales MD LAB BLOOD ORDERABLES Final Resu lt [facility] ([place] 1 [facility] [place] [address] * (ABNORMAL) POCT glucose (11/09/2024 2:08 AM WAISTLINE JOINER LOCKSTITCH) Glucose, POC 207(H) 70 - 199 mg/dL Blood 11/09/2024 2:08 AM WAISTLINE JOINER LOCKSTITCH 11/09/2024 2:08 AM WAISTLINE JOINER LOCKSTITCH us Kerline Lambert MD LAB POCT ORDERABLES - DEVICE Fi nal Result [facility] ([place]) 1 [facility] [place] [address] * (ABNORMAL) CBC with auto differential (11/09/2024 2:08 AM WAISTLINE JOINER LOCKSTITCH) WBC 6.5 3.8 - 9.9 K/cumm Hgb [...] [facility] ([place]) Blood 11/09/2024 2:08 AM WAISTLINE JOINER LOCKSTITCH 11/09/2024 3:56 AM WAISTLINE JOINER LOCKSTITCH us Sanjeev Gonzales MD LAB BLOOD ORDERABLES Final Resu lt [facility] ([place]) 1 [facility] [place] [address] * Magnesium (11/09/2024 2:08 AM WAISTLINE JOINER LOCKSTITCH) Magnesium 2.3 1.4 - 2.5 mg/dL Blood 11/09/2024 2:08 AM WAISTLINE JOINER LOCKSTITCH 11/09/2024 3:53 AM WAISTLINE JOINER LOCKSTITCH Sanjeev Gonzales MD LAB BLOOD ORDERABLES Final Resu lt [facility] ([place]) 1 [facility] Department [place] [address] * (ABNORMAL) Comprehensive metabolic panel (11/09/2024 2:08 AM WAISTLINE JOINER LOCKSTITCH) Sodium 139 135 - 145 mmol/L Potassium, [...] [facility] ([place]) Blood 11/09/2024 2:08 AM WAISTLINE JOINER LOCKSTITCH 11/09/2024 3:53 AM WAISTLINE JOINER LOCKSTITCH us Sanjeev Gonzales MD LAB BLOOD ORDERABLES Final Resu lt [facility] ([place]) 1 [facility] [place] [address] * (ABNORMAL) POCT glucose (11/08/2024 8:36 PM WAISTLINE JOINER LOCKSTITCH) Glucose, POC 264(H) 70 - 199 mg/dL Blood 11/08/2024 8:36 PM WAISTLINE JOINER LOCKSTITCH 11/08/2024 8:36 PM WAISTLINE JOINER LOCKSTITCH us Kerline Lambert MD LAB POCT ORDERABLES - DEVICE Fi nal Result Performing Organization Address [facility] Co de Phone Number [facility] ([place]) 1 [facility] [place] [address] * (ABNORMAL) POCT glucose (11/08/2024 4:57 PM WAISTLINE JOINER LOCKSTITCH) Glucose, POC 291(H) 70 - 199 mg/dL Blood 11/08/2024 4:57 PM WAISTLINE JOINER LOCKSTITCH 11/08/2024 4:57 PM WAISTLINE JOINER LOCKSTITCH Kerline Lambert MD LAB POCT ORDERABLES - DEVICE Fi nal Result Performing Organization Address City/[facility]/ZIP Co de Phone Number [facility] ([place]) 1 [facility] [place] [address] * (ABNORMAL) Troponin T high-sensitivity (11/08/2024 2:31 PM WAISTLINE JOINER LOCKSTITCH) Trop T hs 30(H) <=14 ng/L Comment: Interpretive Data For further hscTnT resources including the diagnostic algorithm and an aid in interpretation, copy and paste this link: https://nrl.testcatalog.org/show/hsTrop Current Interpretive Data last revised 2020. Blood 11/08/2024 2:31 PM WAISTLINE JOINER LOCKSTITCH 11/08/2024 2:41 PM WAISTLINE JOINER LOCKSTITCH us Kerline Lambert MD LAB BLOOD ORDERABLES Final Resu lt [facility] ([place]) 1 [facility] [place] [address] * POCT glucose (11/08/2024 12:04 PM WAISTLINE JOINER LOCKSTITCH) Glucose, POC 173 70 - 199 mg/dL Blood 11/08/2024 12:0 4 PM WAISTLINE JOINER LOCKSTITCH 11/08/2024 12:04 PM WAISTLINE JOINER LOCKSTITCH us Kerline Lambert MD LAB POCT ORDERABLES - DEVICE Fi nal Result Performing Organization Address [facility] Co de Phone Number [facility] ([place]) 1 [facility] [place] [address] * POCT glucose (11/08/2024 8:00 AM WAISTLINE JOINER LOCKSTITCH) Glucose, POC 119 70 - 199 mg/dL Blood 11/08/2024 8:00 AM WAISTLINE JOINER LOCKSTITCH 11/08/2024 8:00 AM WAISTLINE JOINER LOCKSTITCH Kerline Lambert MD LAB POCT ORDERABLES - DEVICE Fi nal Result Performing Organization Address [facility] Co de Phone Number [facility] ([place]) 1 [facility] [place] [address] * (ABNORMAL) Troponin T high-sensitivity (11/08/2024 7:44 AM WAISTLINE JOINER LOCKSTITCH) Trop T hs 30(H) <=14 ng/L Comment: Interpretive Data For further hscTnT resources including the diagnostic algorithm and an aid in interpretation, copy and paste this link: https://nrl.testcatWikipixel.org/show/hsTrop Current Interpretive Data last revised 2020. Blood 11/08/2024 7:44 AM WAISTLINE JOINER LOCKSTITCH 11/08/2024 8:42 AM WAISTLINE JOINER LOCKSTITCH us Sanjeev Gonzales MD LAB BLOOD ORDERABLES Final Resu lt Performing Organization Address [facility] Co de Phone Number [facility] ([place]) 1 [facility] [place] [address] * (ABNORMAL) Troponin T high-sensitivity (11/08/2024 2:30 AM WAISTLINE JOINER LOCKSTITCH) Trop T hs 36(H) <=14 ng/L Comment: Interpretive Data For further hscTnT resources including the diagnostic algorithm and an aid in interpretation, copy and paste this link: https://nrl.testcatWikipixel.org/show/hsTrop Current Interpretive Data last revised 2020. Blood 11/08/2024 2:30 AM WAISTLINE JOINER LOCKSTITCH 11/08/2024 2:34 AM WAISTLINE JOINER LOCKSTITCH us Sanjeev Gonzales MD LAB BLOOD ORDERABLES Final Resu lt Performing Organization Address [facility] Co de Phone Number [facility] ([place]) 1 [facility] [place] [address] * eGFR (11/08/2024 2:30 AM WAISTLINE JOINER LOCKSTITCH) eGFR >90 >=60 mL/min/1. 73 m2 Comment: [...] last reviewed 2021. Blood 11/08/2024 2:30 AM WAISTLINE JOINER LOCKSTITCH 11/08/2024 2:34 AM WAISTLINE JOINER LOCKSTITCH us Sanjeev Gonzales MD LAB BLOOD ORDERABLES Final Resu lt [facility] ([place]) 1 [facility] [place] [address] * Differential, auto (11/08/2024 2:30 AM WAISTLINE JOINER LOCKSTITCH) Neutrophil abs 6.1 1.5 - 6.5 K/cumm [...] revised on 2018. Monocyte pct 6.8 % [facility] ([place]) Comment: Interpretive Data Percent cell count reference ranges are not reported, since discordance with absolute values may lead to misinterpretation of CBC data. Current Interpretive Data was last revised on 2018. Eosinophil pct 0.6 % [facility] ([place]) Comment: Interpretive Data Percent cell count reference ranges are not reported, since discordance with absolute values may lead to misinterpretation of CBC data. Current Interpretive Data was last revised on 2018. Basophil pct 0.2 % [facility] ([place]) Comment: Interpretive Data Percent cell count reference ranges are not reported, since discordance with absolute values may lead to misinterpretation of CBC data. Current Interpretive Data was last revised on 2018. Blood 11/08/2024 2:30 AM WAISTLINE JOINER LOCKSTITCH 11/08/2024 2:34 AM WAISTLINE JOINER LOCKSTITCH us Sanjeev Gonzales MD LAB BLOOD ORDERABLES Final Resu lt [facility] ([place]) 1 [facility] Department of Laboratories [place], [place] [id number] * (ABNORMAL) Pro B-type natriuretic peptide (11/08/2024 2:30 AM WAISTLINE JOINER LOCKSTITCH) NT-proBNP 938(H) <=300 pg/mL Comment: Interpretive Comments: [...] Revised Date: 2018. Blood 11/08/2024 2:30 AM WAISTLINE JOINER LOCKSTITCH 11/08/2024 2:34 AM WAISTLINE JOINER LOCKSTITCH us Sanjeev Gonzales MD LAB BLOOD ORDERABLES Final Resu lt [facility] ([place]) 1 [facility] [place] [address] * (ABNORMAL) CBC with auto differential (11/08/2024 2:30 AM WAISTLINE JOINER LOCKSTITCH) WBC 8.6 3.8 - 9.9 K/cumm Hgb [...] RDW CV 28.3(H) 11.1 - 14.9 % [facility] ([place] RDW SD 76.9(H) 35.7 - 48.1 fL [facility] ([place] NRBC abs 0.02(H) 0.00 - 0.01 K/cumm [facility] ([place]) Blood 11/08/2024 2:30 AM WAISTLINE JOINER LOCKSTITCH 11/08/2024 2:34 AM WAISTLINE JOINER LOCKSTITCH Sanjeev Gonzales MD LAB BLOOD ORDERABLES Final Resu lt Performing Organization Address [facility] de Phone Number [facility] ([place]) 1 [facility] [place] [address] * aPTT (11/08/2024 2:30 AM WAISTLINE JOINER LOCKSTITCH) aPTT 32 28 - 38 sec [facility] Comment: Interpretive Data Heparin therapeutic range: 66.0 - 100.0 seconds. Range based on correlation with therapeutic heparin activity range of 0.3 - 0.7 Units/mL. Current interpretive data was last revised on 2023. Blood 11/08/2024 2:30 AM WAISTLINE JOINER LOCKSTITCH 11/08/2024 2:34 AM WAISTLINE JOINER LOCKSTITCH Narrative [facility] ([place]) - 11/08/2024 4:15 AM WAISTLINE JOINER LOCKSTITCH Baseline prior to enoxaparin initiation. Sanjeev Gonzales MD LAB BLOOD ORDERABLES Final Resu lt Performing Organization Address City/[facility] Co de Phone Number [facility] ([place]) 1 [facility] [place] [address] * (ABNORMAL) Protime-INR (11/08/2024 2:30 AM WAISTLINE JOINER LOCKSTITCH) PT 13.6(H) 9.7 - 13.0 sec [facility] ([place] INR 1.25(H) 0.90 - 1.20 [facility] Comment: Interpretive data Oral anticoagulant therapeutic ranges: Venous thromboembolism prophylaxis or treatment: 2.0-3.0 CARDIOLOGY Standard range: 2.0-3.0 High-intensity range: 2.5-3.5 Refer to indication-specific guidelines for appropriate target ranges for prosthetic heart valve replacement. Current interpretive data was last revised on 2019. Blood 11/08/2024 2:30 AM WAISTLINE JOINER LOCKSTITCH 11/08/2024 2:34 AM WAISTLINE JOINER LOCKSTITCH Narrative [facility] ([place]) - 11/08/2024 4:15 AM WAISTLINE JOINER LOCKSTITCH Baseline prior to enoxaparin initiation. us Sanjeev Gonzales MD LAB BLOOD ORDERABLES Final Resu lt [facility] ([place]) 1 [facility] Department [place] [address] * (ABNORMAL) CBC without differential (11/08/2024 2:30 AM WAISTLINE JOINER LOCKSTITCH) WBC 8.6 3.8 - 9.9 K/cumm Hgb 8.9(L) 11.9 - 15.5 g/dL [facility] ([place]) Hct 35.5(L) 35.6 - 45.5 % [facility] ([place]) Plt 374 150 - 400 K/cumm [facility] ([place]) MPV 9.6 9.1 - 12.3 fL [facility] ([place]) RBC 4.47 3.90 - 5.20 M/cumm [facility] ([place]) MCV 79.4(L) 81.3 - 96.4 fL [facility] ([place]) MCH 19.9(L) 27.1 - 33.3 pg [facility] ([place]) MCHC 25.1(L) 32.3 - 35.7 g/dL [facility] ([place]) RDW CV 28.5(H) 11.1 - 14.9 % [facility] ([place]) RDW SD 76.8(H) 35.7 - 48.1 fL [facility] ([place]) NRBC abs 0.02(H) 0.00 - 0.01 K/cumm [facility] ([place]) Blood 11/08/2024 2:30 AM WAISTLINE JOINER LOCKSTITCH 11/08/2024 2:34 AM WAISTLINE JOINER LOCKSTITCH Narrative [facility] ([place]) - 11/08/2024 2:45 AM WAISTLINE JOINER LOCKSTITCH Baseline prior to enoxaparin initiation. us Sanjeev Gonzales MD LAB BLOOD ORDERABLES Final Resu lt Performing Organization Address City/[facility]/ZIP Co de Phone Number [facility] ([place]) 1 [place] [address] * Magnesium (11/08/2024 2:30 AM WAISTLINE JOINER LOCKSTITCH) Magnesium 2.4 1.4 - 2.5 mg/dL Blood 11/08/2024 2:3 0 AM WAISTLINE JOINER LOCKSTITCH 11/08/2024 2:34 AM WAISTLINE JOINER LOCKSTITCH us Sanjeev Gonzales MD LAB BLOOD ORDERABLES Final Resu lt Performing Organization Address [facility] de Phone Number [facility] ([place]) 1 [facility] [place] [address] * (ABNORMAL) Lipid panel (11/08/2024 2:30 AM WAISTLINE JOINER LOCKSTITCH) Cholesterol 101 30 - 199 mg/dL Comment: [...] R [facility] ([place]) Blood 11/08/2024 2:30 AM WAISTLINE JOINER LOCKSTITCH 11/08/2024 2:34 AM WAISTLINE JOINER LOCKSTITCH us Sanjeev Gonzales MD LAB BLOOD ORDERABLES Final Resu lt [facility] ([place]) 1 [facility] [place] [address] * (ABNORMAL) Comprehensive metabolic panel (11/08/2024 2:30 AM WAISTLINE JOINER LOCKSTITCH) Sodium 143 135 - 145 mmol/L Potassium, [...] 2022. Calcium 9.5 8.5 - 10.3 mg/dL [facility] Bilirubin, total 0.6 0.1 - 1.2 mg/dL [facility] ([place]) Protein, pl 6.6 6.5 - 8.5 g/dL [facility] ([place]) Albumin 4.7 3.5 - 5.0 g/dL [facility] ([place] Alk phos 77 40 - 130 Units/L [facility] ([place]) ALT 26 7 - 45 Units/L [facility] ([place]) AST 17 10 - 45 Units/L [facility] ([place] Blood 11/08/2024 2:30 AM WAISTLINE JOINER LOCKSTITCH 11/08/2024 2:34 AM WAISTLINE JOINER LOCKSTITCH Sanjeev Gonzales MD LAB BLOOD ORDERABLES Final Resu lt Performing Organization Address City/[facility] Co de Phone Number [facility] ([place]) 1 [facility] [place] [address] * (ABNORMAL) Protime-INR (11/08/2024 2:24 AM WAISTLINE JOINER LOCKSTITCH) PT 13.8(H) 9.7 - 13.0 sec [facility] ([place]) INR 1.27(H) 0.90 - 1.20 [facility] ([place]) Comment: Interpretive data Oral anticoagulant therapeutic ranges: Venous thromboembolism prophylaxis or treatment: 2.0-3.0 CARDIOLOGY Standard range: 2.0-3.0 High-intensity range: 2.5-3.5 Refer to indication-specific guidelines for appropriate target ranges for prosthetic heart valve replacement. Current interpretive data was last revised on 2019. Blood 11/08/2024 2:24 AM WAISTLINE JOINER LOCKSTITCH 11/08/2024 2:34 AM WAISTLINE JOINER LOCKSTITCH Sanjeev Gonzales MD LAB BLOOD ORDERABLES Final Resu lt Performing Organization Address City/[facility]/ZIP Co de Phone Number [facility] ([place]) 1 [facility] [place] [address] * POCT glucose (11/08/2024 1:48 AM WAISTLINE JOINER LOCKSTITCH) Glucose, POC 89 70 - 199 mg/dL Blood 11/08/2024 1:48 AM WAISTLINE JOINER LOCKSTITCH 11/08/2024 1:48 AM WAISTLINE JOINER LOCKSTITCH us Sanjeev Gonzales MD LAB POCT ORDERABLES - DEVICE Fi nal Result Performing Organization Address [facility]/ZIP Co de Phone Number [facility] ([place]) 1 [facility] [place] [address] * SCAN - RADIOLOGY/IMAGING (11/07/2024) Anatomical Region Laterality Modality Other us Provider Scanning Edited Result - Final * SCAN - LABS (11/07/2024) us Provider Scanning Edited Result - Final * XR Outside Reference (11/07/2024 12:00 AM WAISTLINE JOINER LOCKSTITCH) Narrative [facility] - 12/01/2024 2:38 PM WAISTLINE JOINER LOCKSTITCH This order has been auto-finalized and does not contain a result. us Not In File Miscellaneous IMG XR PROCEDURES Jaz l Result Performing Organization Address [facility] Co de Phone Number [facility] * SCAN - LABS (11/04/2024) us Provider Scanning Final Result * (ABNORMAL) Protime-INR (11/04/2024) INR 1.50(A) 0.90 - 1.10 EXTERNAL LAB Blood Historical Provider MD LAB BLOOD ORDERABLES Jaz l Result Performing Organization Address [facility]/ZIP Co de Phone Number EXTERNAL LAB * MRI Abdomen Liver W WO Contrast (10/27/2024 12:54 PM WAISTLINE JOINER LOCKSTITCH) Anatomical Region Laterality Modality Body N/A Magnetic Resonan ce 10/27/2024 2:00 PM WAISTLINE JOINER LOCKSTITCH Impressions 10/27/2024 3:34 PM WAISTLINE JOINER LOCKSTITCH Unchanged hepatic metastatic disease. No evidence of disease progression. Dictated by: Dillon Yañez MD The radiology attending physician has personally reviewed this study, and had reviewed and/or edited this written report and agrees with it. Electronically signed by: Horace Cornell M.D. Narrative 10/27/2024 3:34 PM WAISTLINE JOINER LOCKSTITCH EXAMINATION: MAGNETIC RESONANCE IMAGING OF THE ABDOMEN [...] PA Lateral 2 Views (10/27/2024 9:14 AM WAISTLINE JOINER LOCKSTITCH) Anatomical Region Laterality Modality Body, Chest N/A Computed Radiogr aphy 10/27/2024 9:27 AM WAISTLINE JOINER LOCKSTITCH Impressions 10/27/2024 9:50 AM WAISTLINE JOINER LOCKSTITCH FINDINGS/IMPRESSION: Changes of cervical spinal fusion. Partially [...] Wyatt Ochoa M.D. Narrative 10/27/2024 9:50 AM WAISTLINE JOINER LOCKSTITCH EXAMINATION: XR CHEST PA LATERAL 2 VIEWS [...] US Carotids Duplex Bilateral (10/25/2024 2:57 PM WAISTLINE JOINER LOCKSTITCH) Anatomical Region Laterality Modality Vascular Bilateral Ultrasound 10/25/2024 3:07 PM WAISTLINE JOINER LOCKSTITCH Impressions 10/25/2024 3:07 PM WAISTLINE JOINER LOCKSTITCH 1. Bilateral internal carotid artery stenosis estimated at less than 50%. 2. There is antegrade flow in both vertebral arteries. Electronically signed by: Paul Traylor II, D.O. Narrative 10/25/2024 3:07 PM WAISTLINE JOINER LOCKSTITCH EXAMINATION: BILATERAL CAROTID DUPLEX EXAM DATE: 10/25/2024 [...] Electronically signed by: Paul Traylor II, D.O. us Hesham Madsen MD IMG US PROCEDURES Final Resu lt * SCAN - LABS (10/22/2024) Result [facility] Provider Scanning Final Result * DEVICE CHECK - REMOTE (10/19/2024 10:10 AM WAISTLINE JOINER LOCKSTITCH) Anatomical Region Laterality Modality Other Narrative 10/27/2024 1:18 PM WAISTLINE JOINER LOCKSTITCH Images from the original result were not included. 10/20/2024 [employer] quarterly remote device check NOTE The following shows snippets from the complete quarterly report. The complete report in its entirety is attached to this Result Text in Coating And Embossing Unit Operator Slow nsT Detection Oct 13, 2024, Slow nsT Detection Oct 13, 2024 @ 12:39AM Episode List- Full Episode IEGMs are in MEDIA Single Chamber ICD implanted July 2023 Battery Status: MARQUEZ RVp: 0% Next Appointment: 04/14/2025 Pt seen recently in office. Device was not checked at that visit however; Currently being worked up for [employer]ost[employer] Reviewed By Marissa Hernandez HANDICRAFT OR HOBBY SHOP MANAGER ATTESTATION I have reviewed the device interrogation report associated with this encounter in detail. I agree with the documentation recorded/scanned into the electronic medical record. Recommendations: Continue current device follow-up. Rjaan Begum MD Result [facility] Rajan Begum MD CV CARDIAC SERVICES [place] OCEDURES Final Result * (ABNORMAL) Protime-INR (10/14/2024) INR 1.40(A) 0.90 - 1.10 EXTERNAL LAB Blood Result [facility] Historical Provider LAB BLOOD ORDERABLES Jaz iris Result EXTERNAL LAB * (ABNORMAL) Protime-INR (10/07/2024) INR 1.70(A) 0.90 - 1.10 EXTERNAL LAB Blood Result [facility] Historical Provider MD LAB BLOOD ORDERABLES Jaz l Result EXTERNAL LAB * (ABNORMAL) Protime-INR (10/01/2024) INR 1.90(A) 0.90 - 1.10 [facility] ([place]) Blood 10/01/2024 Historical Provider MD LAB BLOOD ORDERABLES Jaz l Result [facility] ([place]) 1 [facility] [place] [address] * (ABNORMAL) Protime-INR (10/01/2024) Pathologist [facility] INR 1.90(A) 0.90 - 1.10 EXTERNAL LAB Blood [facility] Provider MD LAB BLOOD ORDERABLES Jaz l Result EXTERNAL LAB * (ABNORMAL) Protime-INR (09/23/2024) Pathologist [facility] INR 1.30(A) 0.90 - 1.10 EXTERNAL LAB Blood [facility] Provider MD LAB BLOOD ORDERABLES Jaz l Result Performing Organization Address City/[facility]/ZIP Co de Phone Number EXTERNAL LAB * SCAN - LABS (09/13/2024) Provider Scanning Final Result * Hepatitis panel, acute Blood (06/07/2024 4:33 AM CDT) Pathologist [facility] Hep A IgM Nonreactive Nonreactive Comment: Interpretive Data: If Hep A IgM Ab is reported as Equivocal, a new sample should be drawn in two weeks for testing. Current interpretive data was last revised on 19. Hep B core IgM Nonreactive Nonreactive [facility] Comment: Interpretive Data If HepB Core IgM Ab is reported as Equivocal, a new sample should be drawn in two weeks for testing. Current interpretive data was last revised on 19. Hep C Ab Nonreactive Nonreactive [facility] Comment: Interpretive Data Nonreactive: Antibodies to [...] last revised on 2019. HepBsAg Nonreactive Nonreactive [facility] Blood 06/07/2024 4:33 AM CDT 06/07/2024 5:20 AM CDT Zaria Alvares MD LAB MICROBIOLOGY - GENERAL ORDERABLES Final Result [facility] [address] Department [place] [address] * Diabetic Eye Exam (01/26/2024 2:27 PM [...] Albumin Creatinine Ratio, Urine (10/11/2022 10:25 AM WAISTLINE JOINER LOCKSTITCH) Albumin Ur 67.6 mg/L [facility] ([place]) Comment: Interpretive Data No reference range established. Current interpretive data was last revised 2019. Testing performed by: [address] [address] Creatinine Ur 101.1 mg/dL [facility] ([place]) Comment: Interpretive Data No reference range established. Current interpretive data was last revised 2019. Testing performed by: [facility], [address] [place] [address]., [address] Albumin Creatinine Ratio, Ur 67(H) 1 - 29 mg/g [facility] ([place]) Comment:Testing performed by : [address] [address] Urine 10/11/2022 10:2 5 AM WAISTLINE JOINER LOCKSTITCH 10/11/2022 1:42 PM WAISTLINE JOINER LOCKSTITCH Juni Hays MD LAB URINE ORDERABLES Final R esult [facility] ([place] 1 [facility] Department of Laboratories [place], [place] [id number] * COLONOSCOPY (02/05/2022 1:10 PM CDT) Anatomical Region Laterality Modality Other Narrative Procedure Note Dontae Stevens MD - 02/05/2022 1:10 PM CDT [facility] Patient Name: Agustin De León Procedure Date: 02/05/2022 1:10 PM Date of : 1965 Admit Type: Outpatient Age: 56 Gender: Female Attending MD: Dontae Stevens M.D. Room: [facility] ENDOSCOPY ROOM 1 Note Status: Finalized [...] under direct vision. The Pediatric Colonoscope PCF-H190L [id number] was introducedthrough the anus and advanced to [...] 1:10 PM Procedure Code(s): --- Professional --- 65137, Colonoscopy, flexible; with biopsy, single or multiple Diagnosis Code(s): --- Professional --- Z12.11, Encounter for screening for malignant neoplasm of colon K64.8, Other hemorrhoids D12.5, Benign neoplasm of sigmoid colon CPT copyright 2020 [employer]. All rights reserved. The codes documented in this report are preliminary and upon armature straightener reviewmay be revised to meet current compliance requirements. Recognized by the [employer] for promoting quality [...] 08/16/2022 08/16/2022 C. difficile 12/04/2024 12/04/2024 Insurance [facility] CHOICE PLUS [facility] HMO/PPO Address: [facility] [address] [place] [address] MEDICARE [facility] CHOICE PLUS [facility] HMO/PPO Address: [address] [address] [place] [address] MEDICARE [facility] CHOICE PLUS [facility] HMO/PPO Address: [address] [address] [place] [address] MEDICARE Advance Directives For more information, please contact: [phone] Documents on File Type Date Recorded Patient Manager Asset Management Expl anation ADVANCE DIRECTIVE 08/26/2024 1:59 PM POLS T - Phys Order for PT Preferences ADVANCE DIRECTIVE 08/23/2022 4:18 PM ELLIS R OF [employer] * LIMITED - No CPR (Latest Code [...] specifically selected below: No intubation Care Teams Funding Coordinator Relationship Specialty Start Date End Date Juni Hays MD [address] [facility] [address] [place] [address] PCP - General Internal Medicine 08/18/24 Kingston Jain DO [address] [place] [address] [address] Consulting Physician Cardiovascular Disease 06/20/20 Candido Lobato MD [address] [facility] MEDICAL ONCOLOGY, [facility] [address]A, 7B, [address] [place] [address] Medical Oncology 05/02/23 [place] [address] [address] [facility] [address] [place] [address] Physician Benefits Sales Consultant Orthopedic Surgery 06/16/24
--- OUTSIDE RECORDS SUMMARY | 2024-12-09 18:03 | XMS_ITS | Encounter Summary ---
Author Organization [facility] Healthcare Address [address] [place] [address] Care Team Providers Care Computer Service Technician Name Role Phone Kingston Jain DO Unavailable [phone] Juni Hays MD Primary Care Provider [phone] Candido Lobato MD Unavailable [phone] Kelli Bassett Unavailable [phone] Juni Hays MD Primary Care Provider [phone] Encounter Details Date Type Department Care Team (Late st Contact Info) Description 06/07/2024 Documentation Internal Medicine Ivan Da Silva BS Social History Tobacco Use Types Packs/Day Years Used Date Smoking Tobacco: Former Cigarettes 1 5 1 983 - 1987 Smokeless Tobacco: Never Alcohol Use Standard Drinks/Week Comments No 0 (1 standard drink = 0.6 oz pur e alcohol) [facility] Utilities Answer Date Recorded In the past 12 months has [employer] electric, gas, oil, or water company threatened [...] you attend chur ch or pentecostal services? Never 06/07/2024 Do you belong to any clubs o r organizations such as evangelical groups, unions, fraternal or athletic groups, or [...] No 06/07/2024 Housing Stability Vital Sign Answer Israle e Recorded In the last 12 months, [...] place to sleep or slept in a longterm (including now)? No 01/06/2024 Housing Stability Vital [...] time in the past 12 m [facility], were you homeless or living in a longterm (including now)? 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 Author ACRLO General Goal - Patient is knowledgeable about [...] take, when to call CM or provider. [facility] Chronic Pain Care Plan Chronic Care [...] stairs Contact your local community or [facility] for information on exercise, fall prevention [...] documented as of this encounter Care Teams Computer Service Technician Relationship Specialty Start Date End Date Juni Hays MD [address] [place] [address] DR [address] [place] [address] PCP - General Internal Medicine 08/04/20 08/17/24 Juni Hays MD [address] [facility] [address] [address] PCP - General Internal Medicine 08/18/24 Kingston Jain DO [address] [place] [address] [place] [address] Consulting Physician Cardiovascular Disease 06/20/20 Candido Lobato MD [address] [facility] DIV IM MEDICAL ONCOLOGY, [address], [address], [address] [place] [address] Medical Oncology 05/02/23 [place] [address] [address] [facility] [address] [place] [address] Physician Green Belt Orthopedic Surgery 06/16/24 documented as of this encounter
--- OUTSIDE RECORDS SUMMARY | 2024-12-09 18:03 | XMS_ITS | Encounter Summary ---
Author Organization [facility] Healthcare Address [address] [place] [address] Care Team Providers Care Public Health Officer Name Role Phone Kingston Jain DO Unavailable [phone] Candido Lobato MD Unavailable [phone] Kelli Bassett Unavailable [phone] Juni Hays MD Primary Care Provider [phone] Encounter Details Date Type Department Care Team (Late st Contact Info) Description 11/04/2024 Orders Only [facility] Health Information Management [address] [place] [address] Scanning, Provider Social History Tobacco Use Types Packs/Day Years Used Date Smoking Tobacco: Former Cigarettes 1 5 983 - 1987 Smokeless Tobacco: Never Alcohol Use Standard Drinks/Week Comments No 0 (1 standard drink = 0.6 oz pur e alcohol) [facility] Utilities Answer Date Recorded In the past 12 months has [employer] electric, gas, oil, or water company threatened [...] often do you attend chur ch or yarsanism services? 1 to 4 times per year [...] any time in the past 12 m [facility], were you homeless or living in a prison (including now)? No 11/08/2024 Personal Safety Answer [...] on file Legal Sex Female 2:31 PM [employer] Gender Identity Not on file Sexual Orientation [...] take, when to call CM or provider. [facility] Chronic Pain Care Plan Chronic [...] on stairs Contact your local community or [facility] for information on exercise, fall prevention [...] documented as of this encounter Care Teams Public Health Officer Relationship Specialty Start Date End Date Juni Hays MD [address] [facility] [address] [address] PCP - General Internal Medicine 08/18/24 Kingston Jain DO [address] [place] [address] [address] [place] [address] Consulting Physician Cardiovascular Disease 06/20/20 Candido Lobato MD [address] DIV IM MEDICAL ONCOLOGY, [place] [address], [address], [address] [place] [address] Medical Oncology 05/02/23 [place] [address] [address] [facility] [address] [place] [address] Physician Rod Drawer Orthopedic Surgery 06/16/24 documented as of this encounter
--- OUTSIDE RECORDS SUMMARY | 2024-12-09 18:03 | XMS_ITS | Encounter Summary ---
Author Organization [facility] Healthcare Address [address] [place] [address] Care Team Providers Care Passementerie Worker Name Role Phone Kingston Jain DO Unavailable [phone] Candido Lobato MD Unavailable [phone] Kelli Bassett Unavailable [phone] Juni Hays MD Primary Care Provider [phone] Encounter Details Date Type Department Care Team (Late st Contact Info) Description 12/08/2024 Telephone [place] Dice Manager at [address] [place] [address] Quyen Dorado MA Social History Tobacco Use Types Packs/Day Years Used Date Smoking Tobacco: Former Cigarettes 1 5 983 - 1987 Smokeless Tobacco: Never Alcohol Use Standard Drinks/Week Comments No 0 (1 standard drink = 0.6 oz pur e alcohol) [facility] Utilities Answer Date Recorded In the past 12 months has [employer], gas, oil, or water company threatened to [...] often do you attend chur ch or alevism services? More than 4 times per year 12/06/2024 Do you belong to any clubs o r organizations such as denominational groups, unions, fraternal or athletic groups, or [...] place to sleep or slept in a custodial (including now)? No 01/06/2024 Housing Stability Vital Sign Answer Israel e Recorded In the last 12 months, was t here a time when you were not able to pay the mortgage or rent on time? No 12/06/2024 In the past 12 months, how m any times have you moved where you were living? 0 12/06/2024 At any time in the past 12 m [place], were you homeless or living in a custodial (including now)? 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 Pt has been medically cleared for D/C but they are waiting for her insurance to approve for her to be moved to a long term facility. Ana is wanting to know if Dr Begum could come visit her mom in the hospital instead since she cannot make her appt? If not, then what should they do? Please advise. ATING ROOM SPECIALIST documented in this encounter Plan of [...] take, when to call CM or provider. [facility] Chronic Pain Care Plan Chronic Care [...] stairs Contact your local community or [facility] [place] for information on exercise, fall prevention programs, [...] documented as of this encounter Care Teams Passementerie Worker Relationship Specialty Start Date End Date Juin Hays MD [address] [facility] [address] [place] [address] PCP - General Internal Medicine 08/18/24 Kingston Jain DO [address] [place] [address] [facility] [address] [place] [address] Consulting Physician Cardiovascular Disease 06/20/20 Candido Lobato MD [address] [facility]ICAL ON[facility]OGY, [facility] [address]A, [address]B, [address] [place] [address] Medical Oncology 05/02/23 [place] [address] [facility] [address] [place] [address] Physician Sales Planner Orthopedic Surgery 06/16/24 documented as of this encounter
--- OUTSIDE RECORDS SUMMARY | 2024-12-09 18:04 | XMS_ITS | Encounter Summary ---
Author Organization [facility] Healthcare Address [address] [place] [address] Care Team Providers Care Cardiovascular Operating Room Nurse Name Role Phone Kingston Jain DO Unavailable [phone] Candido Lobato MD Unavailable [phone] Kelli Bassett Unavailable [phone] Juni Hays MD Primary Care Provider [phone] Reason for Referral * Consultation (Routine) - Pending Review Specialty Diagnoses / Procedures Referred By Contac t Referred To Contact Palliative Care Diagnoses 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) Paul Snell MD [address] [place] [address] Phone: tel: Hillary Giron NP [address] [place] [address] Phone: tel: fax: Referral ID Status Reason Start Date Expiration Date Visits Requested Visits Authorized [id number] Pending Review Specialty Services Required 12/09/2024 01/08/2026 1 1 Question Answer Have you personally discussed this referral with the patient or significant other? Yes Person to contact regarding appointment? Patient Reason for Referral Pain and symptom management Please select the performing region: [facility] Medical Group [[id number]] Please select the performing department: [facility] [[id number]] To provider: HILLARY GIRON [[id number]] # of visits: 1 MIXER Encounter Details Date Type Department Care Team (Late st Contact Info) Description 12/09/2024 Documentation [facility] - [address] [place] [address] Marisela London RN Social History Tobacco Use Types Packs/Day Years Used Date Smoking Tobacco: Former Cigarettes 1 5 1 983 - 1987 Smokeless Tobacco: Never Alcohol Use Standard Drinks/Week Comments No 0 (1 standard drink = 0.6 oz pur e alcohol) [facility] Utilities Answer Date Recorded In [...] you attend chur ch or temple services? More than 4 times per year 12/06/2024 Do you belong to any clubs o r organizations such as worship groups, unions, fraternal or athletic groups, or [...] any time in the past 12 m [facility], were you homeless or living in a [...] on file Legal Sex Female 2:31 PM SIZE MIXER Gender Identity Not on file Sexual Orientation Not on file Occupation Industry Job Start Date Job End Date On Disability Not on file Not on file Not on file documented as of this encounter Progress Notes * Marisela London RN - 12/09/2024 5:09 PM CST Outpatient palliative care referral placed MIXER documented in this encounter Plan of Treatment Scheduled Referrals Name Type Priority Associated Diagnoses Order Schedule Ambulatory referral to Palliative Care Outpatient Referral Routine 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) Expected: 12/23/2024 (Approximate), Expires: 12/09/2025 documented as of this encounter Goals Goal [...] take, when to call CM or provider. [facility] Chronic Pain Care Plan Chronic [...] on stairs Contact your local community or [facility] for information on exercise, fall prevention programs, or options for improving home safety. documented as of this encounter Visit Diagnoses Diagnosis 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)- Primary Chronic combined systolic and diastolic heart failure documented in this encounter Additional Health Concerns Infection Onset Date Last Indicated Resolved Time CRE Comment:Contact Precautions (gown and gloves) RAMYA Au 09/25/22 08/16/2022 08/16/2022 MDR gram neg/ESBL Comment:Contact Precautions (gown and gloves) RAMYA Au 09/25/22 08/16/2022 08/16/2022 C. difficile 12/04/2024 12/04/2024 documented as of this encounter Care Teams Cardiovascular Operating Room Nurse Relationship Specialty Start Date End Date Juni Hays MD [address] [facility] [address], [place] [address] PCP - General Internal Medicine 08/18/24 Kingston Jain DO [address] [place] [address] [address] Consulting Physician Cardiovascular Disease 06/20/20 Candido Lobato MD [address] [facility] MEDICAL ONCOLOGY, [facility] 7A, 7B, [address] [place] [address] Medical Oncology 05/02/23 [place] [address] [address] [facility] [address] [place] [address] Physician Timber Skidder Orthopedic Surgery 06/16/24 documented as of this encounter
--- OUTSIDE RECORDS SUMMARY | 2024-12-09 18:04 | XMS_ITS | Encounter Summary ---
Author Organization [facility] Address [address] [place] [address] Phone Care Team Providers Care Vice President Safety Name Role Phone Gilda Marques MD Primary Care Provider [phone] Juni Hays MD Primary Care Provider [phone] Shivam Benedict MD Unavailable Radha Crews APRN, [facility] Unavailable [phone] Sacha Penn MD Unavailable [phone] Encounter Details Date Type Department Care Team (Late st Contact Info) Description 02/24/2020 [facility]cribe [facility] [address] [place] [address] [id number] Prosper Tolbert MD [address] [place] [address], [address] [place] [address] Social History Tobacco Use Types [...] on filedocumented in this encounter Care Teams Vice President Safety Relationship Specialty Start Date End Date Gilda Marques MD [address] [place] [address] PCP - General Family Medicine 07/13/18 10/16/20 Juni Hays MD [address] [place] [address] PCP - General Internal Medicine 10/17/20 Shivam Benedict MD [address] [place] [address] Consulting Physician Pulmonary Disease 12/27/21 Radha Crews APRN, MANAGER OF CASE MANAGEMENT [address] [place] [address] Nurse Practitioner Advanced Practice Nurse 01/04/22 Sacha Penn MD [address] [place] [address] Consulting Physician Neurology 07/25/23 documented as of this encounter
--- OUTSIDE RECORDS SUMMARY | 2024-12-09 18:04 | XMS_ITS | Encounter Summary ---
Author Organization [facility] Healthcare Address [address] [place] [address] Care Team Providers Care Level Glass Forming Machine Operator Name Role Phone Kingston Jain DO Unavailable [phone] Juni Hays MD Primary Care Provider [phone] Candido Lobato MD Unavailable [phone] Kelli Bassett Unavailable [phone] Juni Hays MD Primary Care Provider [phone] Encounter Details Date Type Department Care Team (Late st Contact Info) Description 06/06/2023 Telephone [facility] Radiology [address] [place] [address] Kristy Lopez, RN Social History Tobacco Use [...] often do you attend chur ch or episcopalian services? Never 03/25/2023 Do you belong to any clubs o r organizations such as episcopal groups, unions, fraternal or athletic groups, or [...] in a senior care (including now)? No 03/25/2023 Education Answer Date Recorded What is the highest level of school you have completed or the highest degree you have received? 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 [facility] Chronic Pain Care Plan Chronic Care [...] on stairs Contact your local community or [facility] for information on exercise, fall prevention [...] COVID: Suspected 10/29/2023 10/29/2023 10/29/2023 1:03 PM REFINISH TECHNICIAN Influenza, adult 10/29/2023 10/29/2023 11/05/2023 3:07 AM REFINISH TECHNICIAN COVID: Suspected 01/18/2024 01/18/2024 01/18/2024 5:24 PM CDT C. difficile 12/04/2024 12/04/2024 documented as of this encounter Care Teams Level Glass Forming Machine Operator Relationship Specialty Start Date End Date Juni Hays MD 2 [facility] [address] [address] PCP - General Internal Medicine 08/04/20 08/17/24 Juni Hays MD [address] [facility] [address], [place] [address] PCP - General Internal Medicine 08/18/24 Kingston Jain DO 2 [facility] [address] [address] Consulting Physician Cardiovascular Disease 06/20/20 Candido Lobato MD [address] [facility] DIV MEDICAL ONCOLOGY, [facility] [address]A, 7B, [address] [place] [address] Medical Oncology 05/02/23 [place] [address]Néstor NICOLE [address] [address] Physician Caregiver Services Home Orthopedic Surgery 06/16/24 documented as of this encounter
--- OUTSIDE RECORDS SUMMARY | 2024-12-09 18:04 | XMS_ITS | Encounter Summary ---
Author Organization [facility] Healthcare Address [address] [place] [address] Care Team Providers Care Practice Clinician Name Role Phone Kingston Jain DO Unavailable [phone] Candido Lobato MD Unavailable [phone] Kelli Bassett Unavailable [phone] Juni Hays MD Primary Care Provider [phone] Encounter Details Date Type Department Care Team (Late st Contact Info) Description 08/22/2024 Orders Only [facility] [place] Health Information Management [address] [place] [address] Scanning, Provider Social History Tobacco Use Types Packs/Day Years Used Date Smoking Tobacco: Former Cigarettes 1 5 1 983 - 1987 Smokeless Tobacco: Never Alcohol Use Standard Drinks/Week Comments No 0 (1 standard drink = 0.6 oz pur e alcohol) [facility] Utilities Answer Date Recorded In the past 12 months has [employer] electric, gas, oil, or water company threatened [...] you attend chur ch or pentecostal services? 1 to 4 times per year [...] No 01/06/2024 Housing Stability Vital Sign Answer Isarel e Recorded In the last 12 months, was t here a time when you were not able to pay the mortgage or rent on time? No 08/23/2024 In the past 12 months, how m any times have you moved where you were living? 1 08/23/2024 At any time in the past 12 m [facility], were you homeless or living in a longterm (including now)? 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 [facility] Chronic Pain Care Plan Chronic Care Management [...] on stairs Contact your local community or [facility] for information on exercise, fall prevention [...] documented as of this encounter Care Teams Practice Clinician Relationship Specialty Start Date End Date Juni Hays MD [address] [facility] [address] [place] [address] PCP - General Internal Medicine 08/18/24 Kingston Jain DO [address] [place] [address] [address] Consulting Physician Cardiovascular Disease 06/20/20 Candido Lobato MD [address] [facility], [facility] [address] [place] [address] Medical Oncology 05/02/23 [place] [address] [facility] [address] [place] [address] Physician Faculty Physician Orthopedic Surgery 06/16/24 documented as of this encounter
--- OUTSIDE RECORDS SUMMARY | 2024-12-09 18:04 | XMS_ITS | Encounter Summary ---
Author Organization [facility] Address [address] [place] [address] Phone Care Team Providers Care Truck Despatcher Name Role Phone Juni Hays MD Primary Care Provider [phone] Shivam Benedict MD Unavailable Radha Crews APRN, TIRE MOUNTER Unavailable + [phone] Sacha Penn MD Unavailable [phone] Reason for Visit * Reason Comments Medication Refill Encounter Details Date Type Department Care Team (Late st Contact Info) Description 04/25/2021 Refill [facility] - Neurology [facility] [address] [place] [id number] Radha Crews APRN, TIRE MOUNTER [address] [place] [address] Medication Refill Social History Tobacco Use Types [...] migrainosus documented in this encounter Care Teams Truck Despatcher Relationship Specialty Start Date End Date Juni Hays MD PCP - General Internal Medicine 10/17/20 Shivam Benedict MD [address] [place] [address] Consulting Physician Pulmonary Disease 12/27/21 Radha Crews, RETORT SETTER, TIRE MOUNTER [address] [place] [address] Nurse Practitioner Advanced Practice Nurse 01/04/22 Sacha Penn MD [address] [place] [address] Consulting Physician Neurology 07/25/23 documented as of this encounter
--- OUTSIDE RECORDS SUMMARY | 2024-12-09 18:04 | XMS_ITS | Encounter Summary ---
Author Organization [facility] Address [address] [place] [address] Phone Care Team Providers Care Studio Hand Name Role Phone Gilda Marques MD Primary Care Provider [phone] Juni Hays MD Primary Care Provider [phone] Shivam Benedict MD Unavailable Radha Crews APRN, [facility] Unavailable + [phone] Sacha Penn MD Unavailable [phone] Reason for Referral * Radiology Services (Routine) - Closed Specialty Diagnoses / Procedures Referred By Contsarahy t Referred To Contact Radiology Diagnoses Pre-op testing Procedures EKG 12 LEAD Gabriel Lake DO [address] [place] [address] Phone: tel: fax: Referral ID Status Reason Start Date Expiration Date Visits Re quested Visits Authorized [id number] Closed 02/24/2020 1 1 Encounter Details Date Type Department Care Team (Late st Contact Info) Description 02/24/2020 Transcribe Orders [facility] Preop/Pacu II 1 [facility] [place] [address] Prosper Tolbert MD [address] [facility], [address] [place] [address] Pre-op testing (Primary Dx) Social History Tobacco [...] QTC CALCULATION 480 ms EXTERNAL EKG P [place] 50 degrees EXTERNAL EKG R [place] 13 degrees EXTERNAL EKG T [place] 10 degrees EXTERNAL EKG 02/25/2020 10:2 8 AM CDT Impressions EXTERNAL EKG - 02/25/2020 12:31 PM CDT Sinus tachycardia Poor R wave progression - probable normal variant Comparison Summary: No serial comparison made Summary: Borderline ECG Confirmed by Azam Alves [id number] on 02/25/2020 12:31:07 PM Narrative Procedure Note Tammy Nascimento MD - 02/25/2020 IMPRESSION: Sinus tachycardia Poor R wave progression - probable normal variant Comparison Summary: No serial comparison made Summary: Borderline ECG Confirmed by Azam Alves [id number] on 02/25/2020 12:31:07 PM Gabriel Lake DO IMG ECG ORDERABLES Final Result EXTERNAL EKG * (ABNORMAL) BASIC METABOLIC PANEL W/ CALCIUM TOTAL (02/25/2020 9:46 AM CDT) SODIUM 139 136 - 144 mmol/L 02/25/2020 10:51 AM CDT [facility] POTASSIUM 4.0 3.5 - 5.1 mmol/L 02/25/2020 10:51 AM CDT [facility] CHLORIDE 95(L) 100 - 110 mmol/L 02/25/2020 10:51 AM CDT [facility] CO2, VENOUS 29 22 - 32 mmol/L 02/25/2020 10:51 AM CDT [facility] ANION GAP 19.0 8.0 - 20.0 mmol/L 02/25/2020 10:51 AM CDT [facility] GLUCOSE 186(H) 70 - 99 mg/dL 02/25/2020 10:51 AM CDT [facility] BUN 16 6 - 20 mg/dL 02/25/2020 10:51 AM CDT [facility] CREATININE, BLOOD 0.61 0.60 - 1.10 mg/dL 02/25/2020 10:51 AM CDT [facility] BUN/CREATININE RATIO 26(H) 12 - 20 ratio 02/25/2020 10:51 AM CDT [facility] CALCIUM 10.4(H) 8.9 - 10.3 mg/dL 02/25/2020 10:51 AM CDT [facility] GFR, EST. NONAFRICAN >60 >=60 02/25/2020 10:51 AM CDT [facility] GFR, EST. >60 >=60 02/25/2020 10:51 AM CDT [facility] Comment: Creatinine Clearance is the preferred criteria for selecting drug dose adjustments in renally impaired patients. The GFR is provided as additional pertinent clinical information. GFR is reported in mL/min/1.73 sq m. Blood Venipuncture / Unknown 02/25/2020 9:46 AM CDT 02/25/2020 10:29 AM CDT Gabriel Jimenez Jaya KAUFMAN CHEMISTRY ORDERABLE S Final Result Performing Organization Address City/[facility]/ZIP Co de Phone Number [facility] [address] [place] [address] * HEMOGLOBIN & HEMATOCRIT (H&H) (02/25/2020 9:46 AM CDT) HEMOGLOBIN (HGB) 13.5 12.0 - 15.8 g/dL 02/25/2020 10:35 AM CDT [facility] HEMATOCRIT (HCT) 45.9 36.0 - 47.0 % 02/25/2020 10:35 AM CDT [facility] Blood Venipuncture / Unknown 02/25/2020 9:46 AM CDT 02/25/2020 10:29 AM CDT Gabrieljey Jimenez Jaya KAUFMAN HEMATOLOGY ORDERABL ES Final Result Performing Organization Address [facility] de Phone Number [facility] [address] [place] [address] * SARS-COV-2 BY PCR (02/25/2020 9:46 AM CDT) SARSCOV2 Sent to Non Interfaced Lab. See COVID-19 by ceramic designer-PCR, Non Interfaced Lab for results. (Referenc e Range for this test is Not Detected) 02/26/2020 11:08 AM CDT [facility] Swab NASOPHARYNGEAL STRUCTURE / Unknown Non-Phlebotomy Collection / Unknown 02/25/2020 9:46 AM CDT 02/25/2020 10:05 AM CDT Prosper Tolbert MD MICROBIOLOGY - GENERAL ORDERABLES Final Result Performing Organization Address City/[facility]/ZIP Co de Phone Number [facility] documented in this encounter Visit Diagnoses Diagnosis Pre-op testing- Primary Preoperative examination, unspecified Pre-op testing Preoperative examination, unspecified documented in this encounter Care Teams Studio Hand Relationship Specialty Start Date End Date Gilda Marques MD [address] [place] [address] PCP - General Family Medicine 07/13/18 10/16/20 Juni Hays MD [address] [place] [address] PCP - General Internal Medicine 10/17/20 Shivam Benedict MD [address] [place] [address] Consulting Physician Pulmonary Disease 12/27/21 Radha Crews, PREVENTIVE MEDICINE SPECIALIST, CITY COUNCILMAN [address] [place] [address] Nurse Practitioner Advanced Practice Nurse 01/04/22 Sacha Penn MD [address] [place] [address] Consulting Physician Neurology 07/25/23 documented as of this encounter
--- OUTSIDE RECORDS SUMMARY | 2024-12-09 18:04 | XMS_ITS | Continuity of Care Document ---
Author Organization [facility] [address] [facility] [address] [place] [address] Phone Care Team Providers Care Building Maintenance Worker Name Role Phone Joe Vidales MD, FACS [...] SCODI, Retina No Charge Refraction Office/outpatient Visit, [facility] No Charge [employer] Advance Directives Directive Yes / No Effective Date File Name No Information Encounters Encounter Description Practice Location Reason(s) For Visit Diagnoses Date Provider Providers Copied on Encounter [facility], [address] [place] [address] [address], [place], [place], [id number], tel:[phone] [place] No Information 4 Sobeida Diaz. [address], [address], [place], [place], [address], [place]. tel:[phone] [facility], [address] [address], [place], [place], [address], [place] tel:[phone] SEC Reggie VERA Professional 2 Week CE/IOL PO (chief complaint) Epiretinal membrane (ERM) of right eyePost op visit 4 Sana OD Ingrid. [address] [place] [address] [address], [address], [place], [place], [address], [place]. tel:[phone] Doni Coles MD.Candido Lobato MD.Referrin g Provider: Joe Spann, [address] [place] [address] [address], [place], [address]. tel:[phone] [facility] Eye [facility], [address] [place] [address] [address], [place], [place], [address], tel:[phone] SEC Reggie VERA Professional Post-Op (chief complaint) Post op visit 4 Jazmine OD Dianna. [address] [place] [address] [address], [address], [place], [place], [address], [place]. tel:[phone] Doni Coles MD.Candido Lobato MD.Referrin g Provider: Joe Spann, [address] [place] [address] [address], [place], [address]. tel:[phone] [facility] Eye [facility], [address] [place] [address] [address], [place], [place], [address], tel:[phone] [place] [place] No Information 4 Sobeida Diaz. [address] [place] [address] [address], [address], [place], [place], [address], [place]. tel:[phone] Referring Provider: Joe Spann, [address] [place] [address] [address], [place], [address]. tel:[phone] [facility] Eye [facility], [address] [place] [address] [address], [place], [place], [address], [place] tel:[phone] SEC Reggie VERA Professional 2 Week CE/IOL PO (chief complaint) Post op visit 4 Sana OD Ingrid. [address] [place] [address] [address], [address], [place], [place], [address], [place]. tel:[phone] Doni Coles MD.Candido Lobato MD.Referrin g Provider: Jeo Spann, [address] [place] [address] [address] [facility] [address], [place], [address]. tel:[phone] [facility], [address] [place] [address] [address], [place], [place], [address], tel:[phone] SEC Reggie VERA Professional Post-Op (chief complaint) Post op visit 4 Jazmine Bustamante. [address] [place] [address] [address], [address], [place], [place], [address], . tel:[phone] Doni Coles MD.Candido Lobato MD.Referrin g Provider: Joe Spann, [facility] [place] [address], [place], [address]. tel:[phone] [facility], [address] [place], [place] [address]crest [address], [place], [place], [address], [phone] [facility] [place] No Information 4 Sobeida Diaz. [facility] [place] [address], [address], [place], [place], [address], [place]. tel:[phone] Referring Provider: Joe Spann, [facility] [place] [address], [place], [address]. tel:[phone] [facility], [facility] [address], [place], [place], [address], [place] tel:[phone] [place] No Information 4 Sobeida Diaz. [facility] biNu, [address], [place], [place], [address], [place]. tel:[phone] Office/outpa tient Visit, [facility], [facility] [address], [place], [place], [address], [place] tel:[phone] SEC [place] Cataract evaluation (chief complaint) Combined forms of age-related cataract, bilateralType 2 diabetes mellitus with both eyes affected by mild nonproliferat daren retinopathy without macular edema, with long-term current use of insulinEpiret inal membrane (ERM) of right eye Apr-1 5-202 4 Sobeida Diaz. [address] [place] [address] [facility], [address], [place], [place], [address], [place]. tel:[phone] Specialist: Doni Coles MD, [address] [place], [address]. tel:[phone] alist: Candido Lobato MD, [address] [facility] [address], [place], [address]. tel:[phone] ring Provider: Coy Patel MD, [address] [facility], [place], [address]. tel:[phone] [facility] Eye [facility], [address] [facility] [address], [place], [place], [address], [place] tel:[phone] SEC [facility] Professional No Information 4 Jazmine OD Dianna. [address] [place] [address] [facility], [address], [place], [place], [address], [place]. tel:[phone] Specialist: Doni Coles MD, [address] [place], [address]. tel:[phone] alist: Candido Lobato MD, [address] [facility] [address], [place], [address]. tel:[phone] Family History Family Member Type Diagnosis Age At Onset Problem Family history of Diabetes m ellitus Problem Family history of Macular de generation Payers Payer name Insurance type Covered democrat ID Authoriza tion(s) [facility] Commercial CI [id number] Social History Type Description Quantity Date Captured [...]
--- OUTSIDE RECORDS SUMMARY | 2024-12-09 18:04 | XMS_ITS | Encounter Summary ---
Author Organization [facility] Address [address] [place] [address] Phone Care Team Providers Care Dietary Services Director Name Role Phone Gilda Marques MD Primary Care Provider + [phone] Juni Hays MD Primary Care Provider [phone] Shivam Benedict MD Unavailable Radha Crews [facility] Unavailable + [phone] Sacha Penn MD Unavailable [phone] Reason for Visit * Reason Comments Medication Refill Encounter Details Date Type Department Care Team (Late st Contact Info) Description 09/02/2020 Refill [facility] - Neurology - [place] [address] [place] [address] Sacha Penn MD [address] [place] [address] Medication Refill Social History Tobacco [...] on filedocumented in this encounter Care Teams Dietary Services Director Relationship Specialty Start Date End Date Gilda Marques MD [address] [place] [address] PCP - General Family Medicine 07/13/18 10/16/20 Juni Hays MD [address] [place] [address] PCP - General Internal Medicine 10/17/20 Shivam Benedict MD [address] [place] [address] Consulting Physician Pulmonary Disease 12/27/21 Radha Crews, TICKET SALES AGENT, SANITATION SUPERVISOR [address] [place] [address] Nurse Practitioner Advanced Practice Nurse 01/04/22 Sacha Penn MD [address] [place] [address] Consulting Physician Neurology 07/25/23 documented as of this encounter
--- OUTSIDE RECORDS SUMMARY | 2024-12-09 18:04 | XMS_ITS | Encounter Summary ---
Author Organization [facility] Healthcare Address [address] [place] [address] Care Team Providers Care Quail Farmer Name Role Phone Kingston Jain DO Unavailable [phone] Candido Lobato MD Unavailable [phone] Kelli Bassett Unavailable [phone] Armida Hays MD Primary Care Provider [phone] Reason for Visit * Auth/Cert Specialty Diagnoses / Procedures Referred By Contac t Referred To Contact Diagnoses NSTEMI Procedures NA Referral ID Status Reason Start Date Expiration Date Visits Re quested Visits Authorized [id number] 1 1 Encounter Details Date Type Department Care Team (Latest Contact Info) Description 12/04/2024 3:33 PM COSTUME DRAPER - 12/09/2024 5:01 PM COSTUME DRAPER Hospital Encounter [facility] IMU [address] [place] [address] Franchesca Pierce MD [address] [place] [address] Sanjeev Gonzales MD [address] [place] [address] Sampson Davenport II, MD [address] [place] [address] Jaylene Huang MD [address] [place] [address] NSTEMI (non-ST elevated myocardial infarction) (CMS/HCC) (HCC) (Primary Dx); Hyperglycemia Discharge Disposition: Discharge to SNF Social History Tobacco Use Types Packs/Day Years Used Date Smoking Tobacco: Former Cigarettes 1 5 1 983 - 1987 Smokeless Tobacco: Never Alcohol Use Standard Drinks/Week Comments No 0 (1 standard drink = 0.6 oz pur e alcohol) [facility] Utilities Answer Date Recorded In the past 12 months has [employer], gas, oil, or water company threatened to [...] often do you attend chur ch or adventism services? More than 4 times per year [...] time in the past 12 m [facility], were you homeless or living [...] on file Legal Sex Female 2:31 PM COSTUME DRAPER Gender Identity Not on file Sexual Orientation Not on file Occupation Industry Job Start Date Job End Date On Disability Not on file Not on file Not on file documented as of this encounter Last Filed Vital Signs Vital Sign Reading Time Taken Comments Blood Pressure 104/90 12/09/2024 11:33 AM COSTUME DRAPER Pulse 99 12/09/2024 12:00 PM COSTUME DRAPER Temperature 36.7 C (98.1 F) 12/09/2024 11:33 AM COSTUME DRAPER Respiratory Rate 18 12/09/2024 11:3 3 AM COSTUME DRAPER Oxygen Saturation 100% 12/09/2024 11: 33 AM COSTUME DRAPER Inhaled Oxygen Concentration - - Weight 59.3 kg (130 lb 11.7 oz) 12/09/2024 5:44 AM COSTUME DRAPER Height 160 cm (5' 3 ) 12/04/2024 3:00 PM COSTUME DRAPER Body Mass Index 23.16 12/04/2024 3:00 PM COSTUME DRAPER documented in this encounter Discharge Summaries * Jaylene Huang MD - 12/09/2024 9:12 AM CST Inpatient Discharge Summary Patient Name - Agustin Gomez Patient Age - 59 yrs Patient - [id number] [facility] - [id number] Document Creation Date: 12/09/2024 Admitting Provider, MD: Sanjeev Gonzales MD Discharge Provider, MD: Jaylene Huang MD Primary Care Physician at Discharge: Armida Hays MD [phone] Admission Date: 12/04/2024 Discharge Date/time: 12/09/2024 Admission Location: [facility] LOS - LOS: 5 days DETAILS OF HOSPITAL STAY Hospital Problems/Diagnoses Principal Problem: NSTEMI (non-ST elevated myocardial infarction) (CMS/HCC) ([facility]) is ruled out Active Problems: Hyperglycemia Chest wall pain present on admission, noncardiac related Reason for Hospitalization: Chest wall pain Hospital Course: 1. Chest wall pain, this is pretty severe, currently states 8/10. Since admission it is getting better with pain medications but did not resolve since admission. She was ruled out for acute coronary syndrome. Dr. Saul saw the patient in consultation and does not think this is related to her heart.Patient did have cardiac catheterization about 7 months ago showing 20% blockages. Very sensitive on physical examination, I was hardly touching her anterior chest where she is complaining of pain and she was hurting even with slight touch. Continuing oxycodone 10 mg p.o. every 4 hours p.r.n., lidocaine patch 2. Severe systolic congestive heart failure, status post ICD and borostim device placement on November 18, 2024. Right upper chest the scar looks healing appropriately. Continue guideline directed therapy with Jardiance, Lasix, metoprolol tartrate, Entresto. Monitoring vital signs closely and blood work with the creatinine potassium. 3. Chronic respiratory failure, continue home oxygen level, 4. Atrial fibrillation, continuing anticoagulation with warfarin and amiodarone. 12/08/24- 1. Chest wall pain, responding to Dietrich p.o.. She has up and looks very comfortable. Continues to have reproducible chest wall pain on palpation. Denies any new symptom. 2. Severe systolic congestive heart failure, ICD in place, denies palpitation or dyspnea. Continue Lasix 40 mg p.o. b.i.d., Jardiance 10 mg daily, metoprolol tartrate 12.5 mg p.o. b.i.d., Entresto 24-26 mg half a tablet b.i.d., spironolactone 25 mg daily. 3. Chronic respiratory failure with hypoxia, no worsening or exacerbation. 10. Patient was diagnosed with C difficile infection while at the [facility] re[facility] and was prescribedvancomycin p.o. long taper. We are continuing here in the hospital. 12/09/24- Patient is feeling better, pain is much more tolerable and less prominent today, no new symptoms. Will discharge patient to senior care facility Discharge Details Physical Exam at Discharge: Discharge Condition: fair Pulse: 77 Resp: 18 BP: 116/80 Temp: 36.7 ??C (98 ??F) Weight: 59.3 kg (130 lb 11.7 oz) Pertinent Exam Findings at Discharge: Chest S1-S2, regular, distant, lungs clear to auscultation bilaterally abdomen is soft nontender, lower extremity trace pitting edema Discharge Disposition: Discharge to SNF Code Status at Discharge: LIMITED - No CPR Active Issues & Recommended Plan for Follow-up: PCP, Cardiology Allergies: Amitriptyline, Sulfa (sulfonamide antibiotics), Tizanidine, Prochlorperazine, Sulfanilamide, Baclofen, Nitrofurantoin, Nitrofurantoin monohyd/m-cryst, Propoxyphene, Sumatriptan, and Trazodone Discharge Medications: Your medication list START taking these medications Instructions Last Dose Given Next Dose Due vancomycin 125 mg capsule Commonly known as: VANCOCIN 125 mg, oral, Every 6 hours scheduled CHANGE how you take these medications Instructions Last Dose Given Next Dose Due insulin lispro 100 unit/mL pen for injection Commonly known as: HumaLOG, ADMELOG What changed: Another medication with the same name was removed. Continue taking this medication, and follow the directions you see here. 7 Units, subcutaneous, 4 times daily PRN, Lispro 7 units Q4 hours as needed for snacks with greaterthan 20 grams of carbohydrate. insulin lispro 100 unit/mL pen for injection Commonly known as: HumaLOG, ADMELOG What changed: Another medication with the same name was removed. Continue taking this medication, and follow the directions you see here. 1-10 Units, subcutaneous, Nightly, Lispro bedtime correction 1 unit for every 50 points greater than 150 mg/dl oxyCODONE 10 mg tablet Commonly known as: ROXICODONE What changed: when to take this 10 mg, oral, Every 4 hours PRN warfarin 2 mg tablet Commonly known as: COUMADIN What changed: medication strength how much to take 2 mg, oral, Daily CONTINUE taking these medications Instructions Last Dose Given Next Dose Due acetaminophen 325 mg tablet Commonly known as: TYLENOL 650 mg, oral, Every 6 hours alendronate 70 mg tablet Commonly known as: FOSAMAX 70 mg, Every 7 days amiodarone 200 mg tablet Commonly known as: PACERONE 200 mg, oral, Daily artifi.tears(hypromellose)(PF) 0.3 % drops 2 drops, ophthalmic, 3 times daily PRN aspirin 81 mg enteric coated tablet 81 mg, Daily atorvastatin 20 mg tablet Commonly known as: LIPITOR 20 mg, Every evening bisacodyL 10 mg suppository Commonly known as: DULCOLAX 10 mg, rectal, Daily PRN bisacodyl EC 5 mg EC tablet Commonly known as: DULCOLAX EC 10 mg, oral, Daily PRN buprenorphine 10 mcg/hour Commonly known as: BUTRANS 1 patch, transdermal, Weekly Calcium 500 + D 500 mg-5 mcg (200 unit) per tablet Generic drug: calcium carbonate-vitamin D3 1 tablet, oral, Daily calcium carbonate 500 mg (200 mg elemental calcium) chewable tablet Commonly known as: TUMS 1,000 mg, oral, 3 times daily PRN cyanocobalamin 1,000 mcg/mL injection Commonly known as: Vitamin B-12 1,000 mcg, intramuscular, Every 30 days cyclobenzaprine 10 mg tablet Commonly known as: FLEXERIL 10 mg, oral, 3 times daily PRN Dexcom G7 Sensor device Generic drug: blood-glucose sensor USE DIRECTED, CHANGE SENSOR EVERY 10 DAYS empagliflozin 10 mg tablet Commonly known as: JARDIANCE 10 mg, Daily Entresto 24-26 mg tablet Generic drug: sacubitriL-valsartan 0.5 tablets, oral, 2 times daily ergocalciferol 50,000 unit capsule Commonly known as: VITAMIN D 50,000 Units, oral, Weekly, Fridays furosemide 40 mg tablet Commonly known as: LASIX 40 mg, oral, 2 times daily hydrocortisone 2.5 % rectal cream Commonly known as: ANUSOL-HC INSERT RECTALLY TO THE AFFECTED AREA FOUR TIMES DAILY NEEDED FOR HEMORRHOIDS hydrocortisone 25 mg suppository Commonly known as: ANUSOL-HC 25 mg, rectal, 2 times daily insulin glargine 100 unit/mL vial for injection Commonly known as: LANTUS, SEMGLEE 35 Units, Daily levothyroxine 125 mcg tablet Commonly known as: SYNTHROID 125 mcg, oral, Daily metFORMIN XR 500 mg 24 hr tablet Commonly known as: GLUCOPHAGE XR 500 mg, oral, 2 times daily, 2 tabs po daily (hold if nause/vomit or not feeling well). metoprolol tartrate 25 mg immediate release tablet Commonly known as: LOPRESSOR 12.5 mg, oral, 2 times daily midodrine 10 mg tablet Commonly known as: PROAMATINE 10 mg, oral, 3 times daily before meals mirtazapine 15 mg disintegrating tablet Commonly known as: REMERON RAOUL-TAB 15 mg, oral, Nightly ondansetron 4 mg tablet Commonly known as: ZOFRAN 4 mg, oral, Every 8 hours PRN OneTouch Delica Plus Lancet 30 gauge misc Generic drug: lancets USE 1 LANCET TO TEST BLOOD SUGAR THREE TIMES A DAY pantoprazole DR 40 mg EC tablet Commonly known as: PROTONIX 40 mg, 2 times daily pen needle, diabetic 32 gauge x /32 needle Commonly known as: BD Tereza 2nd Gen Pen Needle Use 4 times a day polyethylene glycol 17 gram/dose bulk powder Commonly known as: MIRALAX 17 g, oral, Daily polyvinyl alcohol-povidone 1.4-0.6 % dropperette Commonly known as: REFRESH CLASSIC 2 drops, each eye, 4 times daily PRN potassium chloride ER 20 mEq CR tablet Commonly known as: KLOR-CON TAKE 1 TABLET(20 MEQ) BY MOUTH DAILY pregabalin 75 mg capsule Commonly known as: LYRICA 75 mg, oral, 2 times daily rizatriptan 10 mg tablet Commonly known as: MAXALT 10 mg, oral, Once as needed (for prescriptions), May repeat in 2 hours if unresolved. Do not mg in 24 hours. rOPINIRole 0.25 mg tablet Commonly known as: REQUIP 0.25 mg, Nightly senna-docusate 8.6-50 mg Commonly known as: PERICOLACE 1 tablet, oral, 2 times daily sodium chloride 0.65 % nasal spray Commonly known as: OCEAN 1 spray, each nostril, Every 2 hours PRN spironolactone 25 mg tablet Commonly known as: ALDACTONE 25 mg, oral, Daily STOP taking these medications DULoxetine DR 60 mg capsule Commonly known as: CYMBALTA teriparatide 20 mcg/dose (600mcg/2.4mL) injection Commonly known as: FORTEO Where to Get Your Medications These medications were sent to [facility]/pharmacy #[id number] [address] vancomycin 125 mg capsule You can get these medications from any pharmacy Bring a paper prescription for each of these medications oxyCODONE 10 mg tablet Information about where to get these medications is not yet available Ask your nurse or doctor about these medications warfarin 2 mg tablet Time Spent in Discharge Process: I have spent 35 minutes on discharge planning activities. Time spent was on Coordination of care Test Results Pending at Discharge (If Blank, None Found): Operative Procedures Performed (If Blank, None Found): Outpatient Follow-Up: Future Appointments Date Time Provider Department Center 12/09/2024 10:00 AM Rajan Begum MD [facility] CAR 122 PSA 12/20/2024 7:30 AM [facility] 12/20/2024 8:00 AM Candido Lobato MD ONC [facility] [place] On[facility] 12/20/2024 11:15 AM Hesham Madsen MD [facility] CH1 108 [place]UEL 12/24/2024 11:15 AM Armida Hays MD PCP 390 PC 03/11/2025 10:40 AM Coy Patel MD EML VLGS[facility] [place] [facility] EML 04/14/2025 10:45 AM Rajan Begum MD [facility] CAR 122 PSA Contact Information for Follow-ups [facility] [address] [place] [address] Next Steps: Follow up Armida Hays MD Specialty: Internal Medicine Relationship: PCP - General [address] [address] Next Steps: Follow up Comments: Follow up with established provider: 2 weeks Questions: To provider: ARMIDA HAYS Please schedule an appointment with the following provider(s): [facility] [address] [place] [address] Follow up Armida Hays MD [address] [id number] ANCILLARY INFORMATION Other Procedures & Diagnostic Tests: ECG 12 lead Result Date: 12/06/2024 Vent Rate: 99 bpm RR Interval: 602 msec AK Interval: 349 msec QRS Duration: 98 msec QT Interval: 368 msec QTC Interval: 424 msec P-R-T Dexter: -9 - -6 - 75 degrees IMPRESSION: Sinus rhythm with frequent PACs MODERATE VOLTAGE CRITERIA FOR LVH, CONSIDER NORMAL VARIANT [MEETS CRITERIA IN ONE OF: R(aVL),S(V1), R(V5), R(V5/V6)+S(V1)] NONSPECIFIC T-WAVE ABNORMALITY ABNORMAL RHYTHM ECG NO CHANGE FROM PREVIOUS TRACING NOTED Electronically Signed By: Doni Coles MD Recent Labs: Recent Labs Lab Units 12/08/24 0529 12/07/24 0027 12/06/24 0608 WBC K/cumm 7.5 11.3* 10.0* HEMOGLOBIN g/dL 8.5* 10.2* 10.2* HEMATOCRIT % 30.5* 38.0 36.8 PLATELETS K/cumm 356 380 435* Recent Labs Lab Units 12/08/24 0529 12/07/24 0027 12/06/24 0608 WBC K/cumm 7.5 11.3* 10.0* HEMOGLOBIN g/dL 8.5* 10.2* 10.2* HEMATOCRIT % 30.5* 38.0 36.8 PLATELETS K/cumm 356 380 435* NEUTROS PCT % 70.0 73.1 78.2 LYMPHS PCT % 19.5 16.9 11.7 MONOS PCT % 8.6 7.3 7.9 EOS PCT % 0.1 0.1 0.0 Recent Labs Lab Units 12/09/2475412/08/24 0812/08/2431412/07/2414812/07/24 0027 12/06/24 0749 12/06/24 0608 SODIUM mmol/L -- -- 143 -- 143 -- 146* POTASSIUM PLASMA mmol/L -- -- 3.9 -- 4.0 -- 3.8 CHLORIDE mmol/L -- -- 98 -- 98 -- 97 CO2 mmol/L -- -- 28 -- 30 -- 36* BUN SERUM mg/dL -- -- 24 -- 18 -- 19 CREATININE mg/dL -- -- 0.58* -- 0.40* -- 0.47* CQI-WZR-NOPZPSL mL/min/1.73 m2 -- -- >90 -- >90 -- >90 GLUCOSE mg/dL -- -- 221* -- 183 -- 207* POC GLUCOSE MONITOR mg/dL 184 < > -- < > -- < > -- CALCIUM mg/dL -- -- 8.8 -- 8.8 -- 9.5 ALBUMIN g/dL -- -- 4.3 -- 4.2 -- 4.4 < > = values in this interval not displayed. Recent Labs Lab Units 12/09/24 0755 12/09/24 0454 12/09/24 0215 12/08/24 0814 12/08/2431412/07/249 12/07/24 0027 12/06/24 0749 12/06/24 0608 SODIUM mmol/L -- -- -- -- 143 -- 143 -- 146* POTASSIUM PLASMA mmol/L -- -- -- -- 3.9 -- 4.0 -- 3.8 CHLORIDE mmol/L -- -- -- -- 98 -- 98 -- 97 CO2 mmol/L -- -- -- -- 28 -- 30 -- 36* ANIONGAP mmol/L -- -- -- -- 17* -- 15 -- 13 GLUCOSE mg/dL -- -- -- -- 221* -- 183 -- 207* POC GLUCOSE MONITOR mg/dL 184 246* 415* < > -- < > -- < > -- BUN SERUM mg/dL -- -- -- -- 24 -- 18 -- 19 CREATININE mg/dL -- -- -- -- 0.58* -- 0.40* -- 0.47* CALCIUM mg/dL -- -- -- -- 8.8 -- 8.8 -- 9.5 ALBUMIN g/dL -- -- -- -- 4.3 -- 4.2 -- 4.4 ALK PHOS Units/L -- -- -- -- 96 -- 94 -- 101 ALT Units/L -- -- -- -- 35 -- 29 -- 32 AST Units/L -- -- -- -- 21 -- 18 -- 16 BILIRUBIN TOTAL mg/dL -- -- -- -- 0.3 -- 0.3 -- 0.4 < > = values in this interval not displayed. Recent Labs Lab Units 12/08/2431412/07/242612/06/24 0608 ALK PHOS Units/L 96 94 101 BILIRUBIN TOTAL mg/dL 0.3 0.3 0.4 TOTAL PROTEIN g/dL 6.7 7.0 7.3 ALT Units/L 35 29 32 AST Units/L 21 18 16 Recent Labs Lab Units 12/08/2431412/07/24 0027 12/06/24 0608 MAGNESIUM mg/dL 2.5 2.4 2.3 Recent Labs Lab Units 12/09/24 0307 12/08/2431412/07/24 0027 12/06/24 0608 12/05/24 0547 12/04/24 2306 12/04/24 1612 PROTIME (PT) sec 27.3* 25.2* 21.6* < > -- -- 18.0* INR 2.48* 2.29* 1.97* < > -- -- 1.65* APTT sec -- -- -- -- 92* 54* 78* < > = values in this interval not displayed. Lab Results Component Value Date GLUCOSE 184 12/09/2024 GLUCOSE 246 (H) 12/09/2024 GLUCOSE 415 (H) 12/09/2024 Implant: Implants Lead [employer] [place] 40cm 1036 [id number] - [id number] - [id number] - Implanted (Right) Chest Inventory item: [employer] [place] 40cm 1036 [id number] Model/Cat number: [id number] Serial number: [id number] Commissary Agent: [employer] Lot number: [id number] Device identifier: [id number] Implant Date: 11/18/2024 Description: Part of a bundled Kit. Marked NON chargeable. This is a kit thegoes with item [id number] that is documented on the case As of 11/18/2024 Status: Implanted Type Not Specified [employer] Charisma Angio-Seal Evolution 6fr Vascular Closure [id number] - [id number] - Implanted Inventory item: TER[employer] CHARISMA ANGIO-SEAL EVOLUTION 6FR VASCULAR CLOSURE [id number] Model/Cat number: [id number] Commissary Agent: [employer] Charisma Lot number: [id number] As of 07/02/2022 Status: Implanted Si-Bone Kit Spinal Sacroiliac Fusion Ifuse [place] 10.5x80mm [id number] - [id number] - Implanted Spine Lumbar Inventory item: SI-BONE Kit Spinal Sacroiliac Fusion Ifuse [place] 10.5x80mm [id number] Model/Cat number: [id number] Commissary Agent: Si-Bone Lot number: [id number] Device identifier: [id number] Device identifier type: [id number] As of 08/26/2022 Status: Implanted Medtronic Inc Infuse 18mm Sponge [id number] - [id number] - Implanted Spine Lumbar Inventory item: [employer]TRON[employer] Kit Graft Bone Sponge Xlg Infuse 8cc Granules [id number] Model/Cat number: [id number] Commissary Agent: Medtronic Inc Lot number: [id number] Device identifier: [id number] Device identifier type: GS1 As of 08/26/2022 Status: Implanted Medtronic Inc Infuse 18mm Sponge [id number] - [id number] - Implanted Spine Lumbar Inventory item: [employer] Kit Graft Bone Sponge Xlg Infuse 8cc Granules [id number] Model/Cat number: [id number] Commissary Agent: Medtronic Inc Lot number: [id number] Device identifier: [id number] Device identifier type: GS1 As of 08/26/2022 Status: Implanted Allosource Crushed Chip Frozen Graft 90ml Bone Cancellous [id number] - [id number] - Implanted Spine Lumbar Inventory item: [employer]OSOURCE Graft Bone Canc 90ml Crushed Chip Frozen [id number] Model/Cat number: [id number] Commissary Agent: [employer] Lot number: [id number] As of 08/26/2022 Status: Implanted Allosource Crushed Chip Frozen Graft 30ml Bone Cancellous [id number] - [id number] - Implanted Spine Lumbar Inventory item: [employer]OSOURCE Crushed Chip Frozen Graft 30ml Bone Cancellous [id number] Model/Cat number: [id number] Commissary Agent: [employer] Lot number: [id number] As of 08/26/2022 Status: Implanted Trad[employer] Putty Bone 1-2mm Granules 10cc Magnetos [id number] - [id number] - Implanted SpineLumbar Inventory item: [employer] Graft Bone Magnetos 10cc 1-2mm Granules In Moldable Putty [id number] Model/Cat number: [id number] Commissary Agent: [employer] Lot number: [id number] Device identifier: [id number] Device identifier type: [id number] As of 08/26/2022 Status: Implanted Depuy Synthes Spine [place] Expedium 2 Spine Wire Fixation Cocr Titanium [id number] - [id number] - Implanted Spine Lumbar Inventory item: DEPUY SYNTHES SPINE [place] Expedium 2 Spine Wire Fixation Cocr Titanium [id number] Model/Cat number: [id number] Commissary Agent: Depuy Synthes Spine As of 08/26/2022 Status: Implanted Depuy Synthes Spine Expedium 6mm 40mm 1 Innie Polyaxial Spine Screw Bone Titanium [id number] - [id number] - Implanted Spine Lumbar Inventory item: DEPUY SYNTHES SPINE Expedium 6mm 40mm 1 Innie Polyaxial Spine Screw Bone Titanium [id number] Model/Cat number: [id number] Commissary Agent: Depuy Synthes Spine As of 08/26/2022 Status: Implanted Depuy Synthes Spine Expedium 6mm 45mm 1 Innie Polyaxial Spine Screw Bone Titanium [id number] - [id number] - Implanted Spine Lumbar Inventory item: DEPUY SYNTHES SPINE Expedium 6mm 45mm 1 Innie Polyaxial Spine Screw Bone Titanium [id number] Model/Cat number: [id number] Commissary Agent: Depuy Synthe[employer] Spine As of 08/26/2022 Status: Implanted Depuy Synthes Spine [place] 6.5mm 45mm Polyaxial Spine Screw Bone Titanium 5.5mm Zechariah [id number] - [id number] - Implanted Spine Lumbar Inventory item: DEPUY SYNTHES SPINE Expedium 6.5mm 45mm Polyaxial Spine Screw Bone Titanium 5.5mm Zechariah [id number] Model/Cat number: [id number] Commissary Agent: Depuy Synthes Spine As of 08/26/2022 Status: Implanted Depuy Synthes Spine Expedium 6.5mm 40mm Polyaxial Spine Screw Bone Titanium 5.5mm Zechariah [id number] - [id number] - Implanted Spine Lumbar Inventory item: DEPUY SYNTHES SPINE Expedium 6.5mm 40mm Polyaxial Spine Screw Bone Titanium 5.5mm Zechariah [id number] Model/Cat number: [id number] Commissary Agent: Depuy Synthes Spine As of 08/26/2022 Status: Implanted Depuy Synthes Spine Expedium 7mm 35mm 1 Innie Polyaxial Spine Screw Bone Titanium [id number] - [id number] - Implanted Spine Lumbar Inventory item: DEPUY SYNTHES SPINE Expedium 7mm 35mm 1 Innie Polyaxial Spine Screw Bone Titanium [id number] Model/Cat number: [id number] Commissary Agent: Depuy Synthes Spine As of 08/26/2022 Status: Implanted Depuy Synthes Spine Expedium 7mm 35mm 1 Innie Polyaxial Spine Screw Bone Titanium [id number] - [id number] - Implanted Spine Lumbar Inventory item: DEPUY SYNTHES SPINE Expedium 7mm 35mm 1 Innie Polyaxial Spine Screw Bone Titanium [id number] Model/Cat number: [id number] Commissary Agent: Depuy Synthes Spine As of 08/26/2022 Status: Implanted Depuy Synthes Spine Screw Bone Viper Titanium L35 Mm Od7 Mm Spine Pedicle Cortical Fix Angle Polyaxial Cannulated Fenestrate Nonsterile Mis 5.5 Mm Zechariah [id number] - [id number] - Implanted Spine Lumbar Inventory item: DEPUY SYNTHES SPINE Screw Bone Viper Titanium L35 Mm Od7 Mm Spine Pedicle Cortical Fix Angle Polyaxial Cannulated Fenestrate Nonsterile Mis 5.5 Mm Zechariah [id number] Model/Cat number: [id number] Commissary Agent: Dep[employer] Synthes Spine As of 08/26/2022 Status: Implanted Depuy Synthes Spine Screw Spinal Pedicle Polyaxial Full Thread Solid Expedium Viper Plus T27 [id number] Titanium [id number] - [id number] - Implanted Spine Lumbar Inventory item: DEPUY SYNTHES SPINE Screw Spinal Pedicle Polyaxial Full Thread Solid Expedium ViperPlus T27 23w21if Titanium [id number] Model/Cat number: [id number] Commissary Agent: Depuy Synthes Spine As of 08/26/2022 Status: Implanted Depuy Synthes Spine Expedium 1 Inner Monoaxial Spine Screw Set Titanium [id number] - [id number] - Implanted Spine Lumbar Inventory item: DEPUY SYNTHES SPINE Expedium 1 Inner Monoaxial Spine Screw Set Titanium [id number] Model/Cat number: [id number] Commissary Agent: Depuy Synthes Spine As of 08/26/2022 Status: Implanted Depuy Synthes Spine [place] 5.5mm 40mm Transverse Body Spine Connector Zechariah Titanium [id number] - [id number] - Implanted Spine Lumbar Inventory item: DEPUY SYNTHES SPINE [place] 5.5mm 40mm Transverse Body Spine Connector Zechariah [id number] Model/Cat number: [id number] Commissary Agent: Depuy Synthes Spine As of 08/26/2022 Status: Implanted Depuy Synthes Spine [place] 5.5mm 480mm Zechariah Spinal Titanium Nonsterile [id number] - [id number] - Implanted Spine Lumbar Inventory item: DEPUY SYNTHES SPINE Expedium 5.5mm 480mm Zechariah Spinal Titanium Nonsterile [id number] Model/Cat number: [id number] Commissary Agent: Depuy Synthes Spine As of 08/26/2022 Status: Implanted Depuy Synthes Spine Expedium 6.5mm 30mm Polyaxial Spine Screw Bone Titanium 5.5mm Zechariah [id number] - [id number] - Implanted Spine Lumbar Inventory item: DEPUY SYNTHES SPINE Expedium 6.5mm 30mm Polyaxial Spine Screw Bone Titanium 5.5mm Zechariah [id number] Model/Cat number: [id number] Commissary Agent: [employer] As of 08/26/2022 Status: Implanted Biotron[employer] Inc Lead Defibrillator Plexa Promri L65cm L15cm Cardiac Df4 Sterile Latex Free DisposableS Dx [id number] - [id number] - [id number] - Implanted (Left) Chest Inventory item: BIOTRONIK INC Lead Defibrillator Plexa Promri L65cm L15cm Cardiac Df4 Sterile LatexFree Disposable S Dx [id number] Model/Cat number: [id number] Serial number: [id number] Commissary Agent: [employer] As of 07/15/2023 Status: Implanted [employer] Defibrillator Cardiac Acticor 7 Vr-T Dx 115964 - [id number] - [id number] - Implanted (Left) Chest Inventory item: [employer] Defibrillator Cardiac Acticor 7 Vr-T Dx 538300 Model/Cat number: [id number] Serial number: [id number] Commissary Agent: [employer] As of 07/15/2023 Status: Implanted Medtronic Inc Tyrx 3.35x3in Large Envelope Absorbable Polyarylate Minocycline [id number] - [id number] - Implanted (Left) Chest Inventory item: [employer] INC Envelope Pouch Neurostimulator Polyarylate Mnocycln Anti Bacterial Icd Fully Resorbable Tyrx 2.9x3.3in [id number] Model/Cat number: [id number] Commissary Agent: Med[employer] Inc Lot number: [id number] As of 07/15/2023 Status: Implanted [employer] Nephew/Richco/Ortho Screw Bone Cannulated St Partial Thread 6.5x75mm Ss [id number] - [id number] - Implanted (Right) Hip Inventory item: [employer]TE [employer] NEPHEW/RICHCO/ORTHO Screw Bone Cannulated St Partial Thread 6.5x75mm [id number] Model/Cat number: [id number] Commissary Agent: [employer]Ortho As of 06/09/2024 Status: Implanted [employer]hew[employer]Richco/Ortho 8mm 90mm 24mm Cannulated Long Bone Small Bone Screw Bone [id number] - [id number] - Implanted (Right) Hip Inventory item: [employer]TE [employer]PHEW/RICHCO/ORTHO 8mm 90mm 24mm Cannulated Long Bone Small Bone ScrewBone [id number] Model/Cat number: [id number] Commissary Agent: [employer]Ortho As of 06/09/2024 Status: Implanted [employer]hew[employer]Richco/Ortho 8mm 85mm 22mm Cannulated Long Bone Small Bone Screw Bone [id number] - [id number] - Implanted (Right) Hip Inventory item: [employer]TE [employer]PHEW/RICHCO/ORTHO 8mm 85mm 22mm Cannulated Long Bone Small Bone ScrewBone [id number] Model/Cat number: [id number] Commissary Agent: [employer]Ortho As of 06/09/2024 Status: Implanted Cv[employer] Inc System Generator Neurostimulator Deep Brain Stim Permanent Lead Barostim 336483-700 - [id number] - [id number] - Implanted (Right) Chest Inventory item: [employer]RX INC System Generator Neurostimulator Deep Brain Stim Permanent Lead Barostim [id number] Model/Cat number: [id number] Serial number: [id number] Commissary Agent: [employer] Inc As of 11/18/2024 Status: Implanted [employer] Inc Generator Neurostimulator Deep Brain Stim Permanent Lead No Hardware Barostim 179992-164 -[id number] - [id number] - Implanted (Right) Chest Inventory item: [employer] INC Generator Neurostimulator Deep Brain Stim Permanent Lead No Hardware Barostim [id number] Model/Cat number: [id number] Serial number: [id number] Commissary Agent: [employer] Inc As of 11/18/2024 Status: Implanted General Precautions (If Blank, None Found): Isolation Status: Contact Nutritional Status and in-house recommendations: Dietary Orders (From admission, onward) Start Ordered 12/04/24 2100 Bedtime snack At bedtime Comments: If bedtime BG is less than 100mg/dl, give patient a 15 gram carbohydrate snack. 12/04/24 1550 12/04/24 1537 Adult Diet Restricted; Low Fat, Low Chol, Low Na Diet effective now Question Answer Comment ([facility]) Diet Type Restricted Fat / Sodium Restriction: Low Fat, Low Chol, Low Na 12/04/24 1536 Anticoagulation Indication: INR: 12/09/2024: 2.48 (H) Warfarin Administrations (last 168 hours) Date/Time Action Medication Dose 12/08/24 1752 Given warfarin (COUMADIN) tablet 2 mg 2 mg 12/07/24 1720 Given warfarin (COUMADIN) tablet 3 mg 3 mg 12/06/24 1706 Given warfarin (COUMADIN) tablet 3 mg 3 mg 12/05/24 1733 Given warfarin (COUMADIN) tablet 3 mg 3 mg Oxygen Status: O2 Therapy for the past 12 hrs: O2 Therapy O2 Flow Rate (L/min) 12/09/24 0756 Supplemental oxygen 3 L/min 12/09/24 0312 Supplemental oxygen 3 L/min 12/08/24 2308 Supplemental oxygen -- Wound Care Instructions Wound 11/18/24 Incision Chest Right (Active) Wound 11/18/24 Incision Neck Right (Active) Wound 11/18/24 Skin Tear Thigh Right;Medial (Active) Wound 11/18/24 Skin Tear Forearm Anterior;Left;Proximal (Active) Wound 11/18/24 Incision Chest Right (Active) Wound 11/18/24 Incision Neck Right (Active) Wound 11/18/24 Skin Tear Thigh Right;Medial (Active) Wound 11/18/24 Skin Tear Forearm Anterior;Left;Proximal (Active) Other Instructions Call provider for: Temperature -Temperature greater than 101 degrees F Call provider for: difficulty breathing or chest pain Call provider for: hives Call provider for: persistent nausea or vomiting Call provider for: severe uncontrolled pain Call provider for: headache, visual disturbances, weakness and speech changes Active LDAs (If Blank, None Found): Peripheral IV 12/04/24 18 G Anterior;Proximal;Right Forearm (Active) Placement Date/Time: 12/04/24 0855 Placed by External Staff?: Other hospital Type: Angiocath Size (Gauge): 18 G Location Orientation: Anterior;Proximal;Right Location: Forearm Patient Emergency Contact: Primary Emergency Contact: Ana Chang, Immunization Status at Discharge Immunization History Administered Date(s) Administered Flucelvax Influenza Quad MDI 08/27/2013 Influenza, Quadrivalent, Cell Culture-based MDCK, Preservative Free, Antibiotic Free, Fivcolvlcsaku59/28/2020 Influenza, Quadrivalent, Split, Preservative Free, Intramuscular 07/20/2015, 07/06/2017, 06/19/2018, 06/20/2018, 08/02/2019, 10/08/2022 Influenza, Trivalent, IM (MDV) 08/11/2012, 09/27/2021 Influenza, Unspecified 07/13/2022 Pfizer SARS-CoV-2 Monovalent Vaccination (12+ Yrs) PURPLE 12/18/2020, 01/15/2021, 09/27/2021 Pneumococcal Polysaccharide PPV23 07/10/2020 Sars-CoV-2, Unspecified 12/18/2020, 12/18/2020, 01/15/2021, 01/15/2021, 09/27/2021, 09/27/2021 Tdap 09/02/2018 ZOSTER Recombinant 01/20/2019, 03/23/2019 Jaylene Huang MD UME DRAPER documented in this encounter Discharge Instructions * Discharge Instr - Diet* Mary Chapman - 12/09/2024 9:31 AM COSTUME DRAPER Recommend to follow a Consistent Carbohydrate/Heart Healthy diet, which includes a variety of fruits, vegetables, whole-grains, low-fat dairy products, beans, lean meats, and fish. Limit foods that are high in saturated fats and sodium like desserts, fast food, fried/breaded foods, deli meats, sausage, sosa, and gravies/sauces. Aim to eat less than 2,000mg sodium per day (about 500-700 mg per meal). Eat three meals per day and eat 45 - 60 grams of carbohydrate for women or 60 - 75 grams carbohydrate for men at each meal, do not skip meals and aim to eat meals at consistent times. Avoid sugary drinks like lemonade, regular soda, Gatorade, and sweet tea and drink water throughout the day. Additional Resources: [place]: www.diabetes.org/nutrition [employer]: www.heart.org/en/healthy-living/healthy-eating If poor intakes and/or unintended weight loss occur on discharge follow up with primary care physician. Call [phone] to speak with a dietitian about any diet related concerns. If interested in nutrition counseling, ask your doctor for referral and call [phone] to make an appointment. UME DRAPER * Appointments* Parisa Hernandez, RN - 12/09/2024 1:02 PM COSTUME DRAPER CODE STATUS: LIMITED-NO CPR ALLERGIES: AMITRIPTYLINE, SULFA, TIZANIDINE, PROCHLORPERAZINE, SULFANILAMIDE, BACLOFEN, NITROFURANTOIN, PROPOXYPHENE, SUMATRIPTAN, TRAZODONE WEIGHT: 59.3KG ISOLATION: CONTACT ISOLATION FOR C.DIFFICILE, CRE, MDR GRAM NEG/ESBL DIET: CONSISTENT CARB, HEART HEALTHY DIET FINGERSTICKS: AC AND HS ACTIVITY: UP WITH ASSIST OXYGEN: 3 LITERS CONTINUOUS RAVI CATHETER: NONE DRESSING CHANGES: NONE PHYSICAL THERAPY: YES OCCUPATIONAL THERAPY: YES UME DRAPER UME DRAPER UME DRAPER documented in this encounter Medications at Time of Discharge acetaminophen (TYLENOL) 325 mg tablet Take 2 tablets (650 mg total) by mouth every 6 (six) hours 30 tablet 11 4 alendronate (FOSAMAX) 70 mg tablet Take 1 tablet (70 mg total) by mouth every 7 days Take in the morning with a full glass of water, on an empty stomach, and do not take anything else by mouth or lie down for the next 30 min. amiodarone (PACERONE) 200 mg tablet Take 1 tablet (200 mg total) by mouth daily 90 tablet 1 4 03/30/20 25 artifi.tears,hyprom ellose,,PF, 0.3 % drops Administer 2 drops into affected eye(s) 3 (three) times a day as needed (dry eye) 14 mL 11 4 aspirin 81 mg enteric coated tablet Take [...] if not tolerating PO)) 30 tablet 4 blood-glucose sensor (Chefcom G7 Sensor) deviceIndications:U ncontrolled type 2 diabetes mellitus with hyperglycemia (HCC),Insulin long-term use (CMS/HCC) ([facility]) USE DIRECTED, CHANGE SENSOR EVERY 10 DAYS 9 each 3 5 buprenorphine (BUTRANS) 10 mcg/hourIndications :severe chronic pain [...] for muscle spasms 60 tablet 3 4 empagliflozin (JARDIANCE) 10 mg tablet Take 1 tablet (10 mg total) by mouth daily Entresto 24-26 mg tablet Take 0.5 tablets by mouth 2 (two) times a day 90 tablet 3 5 11/11/19 26 ergocalciferol (VITAMIN D) 50,000 unit capsule Take [...] times a day insulin glargine 100 unit/mL vial for injection Inject 35 Units under the skin daily insulin lispro (HumaLOG, ADMELOG) 100 unit/mL pen [...] if nause/vomit or not feeling well). 5 metoprolol tartrate (LOPRESSOR) 25 mg immediate release tablet Take 0.5 tablets (12.5 mg total) by mouth 2 (two) times a day 90 tablet 3 4 05/07/20 25 midodrine (PROAMATINE) 10 mg tablet Take 1 tablet (10 mg total) by mouth 3 (three) times a day before meals 90 tablet 5 4 03/30/20 25 mirtazapine (REMERON RAOUL-TAB) 15 mg disintegrating tablet Take 1 tablet (15 mg total) by mouth nightly 5 12/24/19 25 ondansetron (ZOFRAN) 4 mg tablet Take 1 tablet (4 mg total) by mouth every 8 (eight) hours as needed for nausea or vomiting 20 tablet 5 4 OneTouch Delica Plus Lancet 30 gauge misc USE 1 LANCET TO TEST BLOOD SUGAR THREE TIMES A DAY 50 each 3 4 oxyCODONE (ROXICODONE) 10 mg tablet Take 1 tablet (10 mg total) by mouth every 4 (four) hours as needed for pain for up to 6 doses [address] (PROTONIX) 40 mg EC tablet Take 1 tablet (40 mg total) by mouth 2 (two) times a day pen needle, diabetic (BD Tereza 2nd Gen [...] day as needed for dry eyes 5 potassium chloride ER 20 mEq CR tablet [...] 30 mg in 24 hours. 9 tablet 4 rOPINIRole (REQUIP) 0.25 mg tablet Take 1 tablet (0.25 mg total) by mouth nightly senna-docusate (PERICOLACE) 8.6-50 mg Take 1 tablet by mouth 2 (two) times a day 5 sodium chloride (OCEAN) 0.65 % nasal spray Administer 1 spray into each nostril every 2 (two) hours as needed for congestion 4 08/30/20 25 spironolactone (ALDACTONE) 25 mg tablet Take 1 tablet (25 mg total) by mouth daily 30 tablet 4 09/30/20 25 vancomycin (VANCOCIN) 125 mg capsuleIndications: Clostridioides difficile infection Take 1 capsule (125 mg total) by mouth every 6 (six) hours for 25 doses 25 capsule 5 12/17/19 25 warfarin (COUMADIN) 2 mg tabletIndications:L V thrombus Take 1 tablet (2 mg total) by mouth daily 5 documented as of this encounter Ordered Prescriptions Prescription Sig Dispense Quantity Refills Last Filled Start Date End Date vancomycin (VANCOCIN) 125 mg capsuleIndications :Clostridioides difficile infection Take 1 capsule (125 mg total) by mouth every 6 (six) hours for 25 doses 25 capsule 12/09/2024 5 warfarin (COUMADIN) 2 mg tabletIndications: LV thrombus Take 1 tablet (2 mg total) by mouth daily 12/09/2024 oxyCODONE (ROXICODONE) 10 mg tablet Take 1 tablet (10 mg total) by mouth every 4 (four) hours as needed for pain for up to 6 doses 6 tablet 12/09/2024 documented in this encounter Discharge Disposition Disposition Code Departure Means Destination Comment s Discharge to [facility] documented in this encounter Progress Notes * Mary Chapman - 12/09/2024 9:31 AM CST Nutrition LOS Screen/Re-screen Encounter Date: 12/09/24 9:32 AM Nutrition Status: Patient appears adequately nourished. Patient is a 59 y.o. female. Admit Dx: NSTEMI (non-ST elevated myocardial infarction) ([facility]/HCC) (HCC) [I21.4]. Admitted on 12/04/2024, current LOS is 5 days. Wt Readings from Last 10 Encounters: 12/09/24 59.3 kg (130 lb 11.7 oz) 11/19/24 62.1 kg (136 lb 14.5 oz) 11/17/24 62.4 kg (137 lb 9.1 oz) 11/05/24 59.7 kg (131 lb 9.6 oz) 10/25/24 59.4 kg (131 lb) 09/30/24 60.3 kg (133 lb) 09/16/24 60.3 kg (133 lb) 09/16/24 60.3 kg (133 lb) 08/30/24 61.9 kg (136 lb 7.4 oz) 08/19/24 60.5 kg (133 lb 6.4 oz) Current diet order: Adult Discharge Diet Adult Diet Restricted; Low Fat, Low Chol, Low Na; Consistent Carbohydrate Impression: PO Intake average of 93%. Per EMR weight history, weight stable. POCT 96-415 mg/dl x 24hrs noted. Patient with hx DM. Added consistent carb restriction to diet. RDN to follow per LOS policy. Diet Instructions Adult Discharge Diet Diet Type: Return to previous diet Recommend to follow a Consistent Carbohydrate/Heart Healthy diet, which includes a variety of fruits, vegetables, whole-grains, low-fat dairy products, beans, lean meats, and fish. Limit foods that are high in saturated fats and sodium like desserts, fast food, fried/breaded foods, deli meats, sausage, sosa, and gravies/sauces. Aim to eat less than 2,000mg sodium per day (about 500-700 mg per meal). Eat three meals per day and eat 45 - 60 grams of carbohydrate for women or 60 - 75 grams carbohydrate for men at each meal, do not skip meals and aim to eat meals at consistent times. Avoid sugary drinks like lemonade, regular soda, Gatorade, and sweet tea and drink water throughout the day. Additional Resources: [place]: www.diabetes.org/nutrition [employer]: www.heart.org/en/healthy-living/healthy-eating If poor intakes and/or unintended weight loss occur on discharge follow up with primary care physician. Call [phone] to speak with a dietitian about any diet related concerns. If interested in nutrition counseling, ask your doctor for referral and call [phone] to make an appointment. [facility] Inpatient Office: [phone] Weekend Coverage: [phone] UME DRAPER * Jaylene Huang MD - 12/08/2024 2:24 PM CST General Medicine Daily Progress SUBJECTIVE Chief complaint of chest wall pain. Interval History: Patient is improving slowly, no new symptoms since admission OBJECTIVE Vitals: 24hr Min/Max: Temp Min: 36 ??C (96.8 ??F) Max: 37 ??C (98.6 ??F) Pulse Min: 55 Max: 106 BP Min: 100/77 Max: 142/69 Resp Min: 4 Max: 18 SpO2 Min: 90 % Max: 100 % Most Recent : Vitals: 12/08/24 1200 BP: Pulse: 88 Resp: Temp: SpO2: I/O last 2 completed shifts: In: 480 [P.O.:480] Out: - I/O this shift: In: 480 [P.O.:480] Out: 225 [Urine:225] Physical Exam: Eyes: EOMI, ENOCH, sclare non icteric Neck: supple, no nuchal ridigity, no gross carotid bruits appreciated Pharynx: No gross oral lesion, tongue midline, mucosa moist Lungs CTA Heart: [id number], no significant murmur or gallop Abd: +BS, Non Tender, Non distended, No gross hepatomegaly Lower Ext: No gross edema, pedal artery pulses are palpable bilaterally Neuro: No new deficits appreciated Musculoskeletal: no gross joint erythema, edema, tenderness Skin: No new change Lab/Current Medication Review: Recent Results (from the past 24 hours) POCT glucose Collection Time: 12/07/24 5:14 PM Result Value Ref Range Glucose, POC 214 (H) 70 - 199 mg/dL POCT glucose Collection Time: 12/07/24 8:57 PM Result Value Ref Range Glucose, POC 127 70 - 199 mg/dL POCT glucose Collection Time: 12/08/24 2:05 AM Result Value Ref Range Glucose, POC 280 (H) 70 - 199 mg/dL Comprehensive metabolic panel Collection Time: 12/08/24 3:15 AM Result Value Ref Range Sodium 143 135 - 145 mmol/L Potassium, pl 3.9 3.3 - 4.9 mmol/L Chloride 98 97 - 110 mmol/L CO2 28 22 - 32 mmol/L Anion gap 17 (H) 2 - 15 mmol/L BUN 24 6 - 25 mg/dL Creatinine 0.58 (L) 0.60 - 1.10 mg/dL Glucose 221 (H) 70 - 199 mg/dL Calcium 8.8 8.5 - 10.3 mg/dL Bilirubin, total 0.3 0.1 - 1.2 mg/dL Protein, pl 6.7 6.5 - 8.5 g/dL Albumin 4.3 3.5 - 5.0 g/dL Alk phos 96 40 - 130 Units/L ALT 35 7 - 45 Units/L AST 21 10 - 45 Units/L Magnesium Collection Time: 12/08/24 3:15 AM Result Value Ref Range Magnesium 2.5 1.4 - 2.5 mg/dL Protime-INR Collection Time: 12/08/24 3:15 AM Result Value Ref Range PT 25.2 (H) 9.7 - 13.0 sec INR 2.29 (H) 0.90 - 1.20 Beta-hydroxybutyrate Collection Time: 12/08/24 3:15 AM Result Value Ref Range Beta-Hydroxybutyrate 0.2 <=0.5 mmol/L eGFR Collection Time: 12/08/24 3:15 AM Result Value Ref Range eGFR >90 >=60 mL/min/1.73 m2 CBC with auto differential Collection Time: 12/08/24 5:29 AM Result Value Ref Range WBC 7.5 3.8 - 9.9 K/cumm Hgb 8.5 (L) 11.9 - 15.5 g/dL Hct 30.5 (L) 35.6 - 45.5 % Plt 356 150 - 400 K/cumm MPV 10.2 9.1 - 12.3 fL RBC 3.63 (L) 3.90 - 5.20 M/cumm MCV 84.0 81.3 - 96.4 fL MCH 23.4 (L) 27.1 - 33.3 pg MCHC 27.9 (L) 32.3 - 35.7 g/dL RDW CV 22.2 (H) 11.1 - 14.9 % RDW SD 67.3 (H) 35.7 - 48.1 fL NRBC abs 0.07 (H) 0.00 - 0.01 K/cumm Differential, auto Collection Time: 12/08/24 5:29 AM Result Value Ref Range Neutrophil abs 5.3 1.5 - 6.5 K/cumm Imm gran abs 0.1 0.0 - 0.1 K/cumm Lymphocyte abs 1.5 0.8 - 3.3 K/cumm Monocyte abs 0.7 0.2 - 0.8 K/cumm Eosinophil abs 0.0 0.0 - 0.5 K/cumm Basophil abs 0.0 0.0 - 0.1 K/cumm Neutrophil pct 70.0 % Imm gran pct 1.7 % Lymphocyte pct 19.5 % Monocyte pct 8.6 % Eosinophil pct 0.1 % Basophil pct 0.1 % POCT glucose Collection Time: 12/08/24 8:14 AM Result Value Ref Range Glucose, POC 213 (H) 70 - 199 mg/dL POCT glucose Collection Time: 12/08/24 12:23 PM Result Value Ref Range Glucose, POC 253 (H) 70 - 199 mg/dL ECG 12 lead Result Date: 12/06/2024 Narrative: Vent Rate: 99 bpm RR Interval: 602 msec AK Interval: 349 msec QRS Duration: 98 msec QT Interval: 368 msec QTC Interval: 424 msec P-R-T Dexter: -9 - -6 - 75 degrees IMPRESSION: Sinus rhythm with frequent PACs MODERATE VOLTAGE CRITERIA FOR LVH, CONSIDER NORMAL VARIANT [MEETS CRITERIA IN ONE OF: R(aVL), S(V1), R(V5), R(V5/V6)+S(V1)] NONSPECIFIC T-WAVE ABNORMALITY ABNORMAL RHYTHM ECG NO CHANGE FROM PREVIOUS TRACING NOTED Electronically Signed By: Doni Coles MD XR Chest 1 View Result Date: 11/25/2024 Narrative: EXAMINATION: 1 view chest radiograph Impression: Comparison is made to radiograph dated 11/22/2024. Single lead cardiac pacer with lead overlying the right ventricle. Hypoglossal nerve stimulator with generator overlying the right chestand leads overlying the right neck. Cervical fusion [...] it. Electronically signed by: Nereyda Medeiros M.D. XR Chest 1 View Result Date: 11/22/2024 Narrative: EXAMINATION: 1 view chest radiograph Impression: Comparison is made to radiograph dated 11/09/2024. Left subclavian approach single leadcardiac pacer defibrillator with lead overlying the right [...] it. Electronically signed by: Cesar Bryan M.D. Transthoracic Echo (TTE) Limited/Followup Result Date: 11/10/2024 Narrative: [address] [address] Limited Echocardiogram Report Patient Name: AGUSTIN GOMEZ D : 1965 Study Date: 11/10/2024 9:09:45 AM Gender: F Tech: Location: [place] [address] Ref Provider: RACHEAL SAUL Height(Cm): BSA: Weight(Kg): [...] of left ventricle cavity. Severe global left ventricularsystolic dysfunction. Possible thrombus seen--sessile on the lateral wall in the four-chamber view.Ejection Fraction is estimated to be 15 to 20 %. Left Atrium: The left atrium is normal in size. Right Ventricle: Normal right ventricular size. Normal right ventricular systolic function. Linear artifact in right ventricle suggestive of catheter(s), pacemaker lead(s), or ICD lead(s). Right Atrium:The right atrium is normal in size. Aortic [...] of left ventricle cavity. Severe global left ventricularsystolic dysfunction. Possible thrombus seen--sessile on the lateral [...] By: Dr Racheal Saul 11/10/2024 11:02:13 AM COSTUME DRAPER XR Chest 1 View Result Date: 11/09/2024 Narrative: EXAM DESCRIPTION: XR CHEST 1 VIEW REASON [...] Javan Mcgill M.D. KN: ANNA Report ID: [id number] Reading Location: [id number] Current Facility-Administered Medications Medication Dose Route Frequency Provider Last Rate Last Admin acetaminophen (TYLENOL) tablet 650 mg 650 mg oral Q6H PRN Franchesca Pierce MD 650 mg at 12/08/24 0704 amiodarone (PACERONE) tablet 200 mg 200 mg oral Daily Franchesca Pierce MD 200 mg at 12/08/24 0824 aspirin enteric coated tablet 81 mg 81 mg oral Daily Franchesca Pierce MD 81 mg at 12/08/24 0823 atorvastatin (LIPITOR) tablet 20 mg 20 mg oral Daily Franchesca Pierce MD 20 mg at 12/08/24 0824 cyclobenzaprine (FLEXERIL) tablet 10 mg 10 mg oral TID PRN Sanjeev Gonzales MD 10 mg at 12/08/24 0822 dextrose gel in packet 15 g 15 g oral Q15 Min PRN Sampson Davenport II, MD Or dextrose (D10W) 10% bolus 250 mL 250 mL intravenous Q15 Min PRN Sampson Davenport II, MD DULoxetine DR (CYMBALTA) extended release capsule 60 mg 60 mg oral Daily Sanjeev Gonzales MD 60 mg at 12/08/24 0823 empagliflozin (JARDIANCE) tablet 10 mg 10 mg oral Daily Racheal Saul MD 10 mg at 12/08/24 0825 furosemide (LASIX) tablet 40 mg 40 mg oral BID DIURETIC Sanjeev Gonzales MD 40 mg at 12/08/24 0825 glucagon injection 1 mg 1 mg intramuscular Q30 Min PRN Sampson Davenport II, MD insulin glargine (LANTUS, SEMGLEE) 100 unit/mL injection 35 Units 35 Units subcutaneous QAM Sampson Davenport II, MD 35 Units at 12/08/2424 insulin lispro (HumaLOG, ADMELOG) 100 unit/mL injection 0-4 Units 0-4 Units subcutaneous Nightly Sanjeev Gonzales MD 1 Units at 12/06/242055 insulin lispro (HumaLOG, ADMELOG) 100 unit/mL injection 0-5 Units 0-5 Units subcutaneous TID with meals Sampson Davenport II, MD 3 Units at 12/08/24 1302 insulin lispro (HumaLOG, ADMELOG) 100 unit/mL injection 17 Units 17 Units subcutaneous TID with meals Sampson Davenport II, MD 17 Units at 12/08/24 1217 insulin lispro (HumaLOG, ADMELOG) 100 unit/mL injection 7 Units 7 Units subcutaneous QID PRN Sampson Davenport II, MD levothyroxine (SYNTHROID) tablet 125 mcg 125 mcg oral Daily - 0600 Sanjeev Gonzales MD 125 mcg at 12/08/24 0545 lidocaine (LIDODERM) 5 % patch 2 patch 2 patch transdermal Q24H Sampson Davenport II, MD 2 patch at 12/08/24 1217 metoprolol tartrate (LOPRESSOR) immediate release tablet 12.5 mg 12.5 mg oral BID Sanjeev Gonzales MD 12.5 mg at 12/08/24 08 midodrine (PROAMATINE) tablet 10 mg 10 mg oral TID AC Sanjeev Gonzales MD 10 mg at 12/08/241216 mirtazapine (REMERON RAOUL-TAB) disintegrating tablet 15 mg 15 mg oral Nightly Franchesca Pierce MD 15 mg at 12/07/242020 nitroglycerin (NITROSTAT) sublingual tablet 0.4 mg 0.4 mg sublingual Q5 Min PRN Franchesca Pierce MD0.4 mg at 12/04/242006 ondansetron (ZOFRAN) tablet 4 mg 4 mg oral Q8H PRN Sanjeev Gonzales MD oxyCODONE (ROXICODONE) tablet 10 mg 10 mg oral Q4H PRN Sampson Davenport II, MD 10 mg at [address] (PROTONIX) extended release tablet 40 mg 40 mg oral Daily Franchesca Pierce MD 40 mgat 12/08/24 08 peg [id number] (ARTIFICAL TEARS) 1-0.2-0.2 % ophthalmic solution 1 drop 1 drop each eye QID PRN Franchesca Pierce MD pregabalin (LYRICA) capsule 75 mg 75 mg oral BID Franchesca Pierce MD 75 mg at 12/08/24 0822 rizatriptan (MAXALT) tablet 10 mg 10 mg oral Q2H PRN Sampson Davenport II, MD rOPINIRole (REQUIP) tablet 0.25 mg 0.25 mg oral Nightly Franchesca Pierce MD 0.25 mg at 12/07/242020 sacubitriL-valsartan (ENTRESTO) 24-26 mg tablet 0.5 tablet 0.5 tablet oral BID Sanjeev Gonzales MD 0.5 tablet at 12/08/24821 senna-docusate (PERICOLACE) 8.6-50 mg per tablet 1 tablet 1 tablet oral BID Sanjeev Gonzales MD 1 tablet at 12/06/242049 spironolactone (ALDACTONE) tablet 25 mg 25 mg oral Daily Sanjeev Gonzales MD 25 mg at 12/08/24 08 vancomycin (VANCOCIN) capsule 125 mg 125 mg oral Q6H ALVINA Sampson Davenport II, MD 125 mg at 12/08/24 1217 warfarin (COUMADIN) tablet 2 mg 2 mg oral Daily-1800 Sampson Davenport II, MD A/P: 1. Chest wall pain, this is pretty severe, currently states 05/22. Since admission it is getting better with pain medications but did not resolve since admission. She was ruled out for acute coronary syndrome. Dr. Saul saw the patient in consultation and does not think this is related to her heart.Patient did have cardiac catheterization about 7 months ago showing 20% blockages. Very sensitive on physical examination, I was hardly touching her anterior chest where she is complaining of pain and she was hurting even with slight touch. Continuing oxycodone 10 mg p.o. every 4 hours p.r.n., lidocaine patch 2. Severe systolic congestive heart failure, status post ICD and borostim device placement on November 18, 2024. Right upper chest the scar looks healing appropriately. Continue guideline directed therapy with Jardiance, Lasix, metoprolol tartrate, Entresto. Monitoring vital signs closely and blood work with the creatinine potassium. 3. Chronic respiratory failure, continue home oxygen level, 4. Atrial fibrillation, continuing anticoagulation with warfarin and amiodarone. 12/08/24- 1. Chest wall pain, responding to Dietrich p.o.. She has up and looks very comfortable. Continues to have reproducible chest wall pain on palpation. Denies any new symptom. 2. Severe systolic congestive heart failure, ICD in place, denies palpitation or dyspnea. Continue Lasix 40 mg p.o. b.i.d., Jardiance 10 mg daily, metoprolol tartrate 12.5 mg p.o. b.i.d., Entresto 24-26 mg half a tablet b.i.d., spironolactone 25 mg daily. 3. Chronic respiratory failure with hypoxia, no worsening or exacerbation. 10. [facility] and was prescribed[facility]comycin p.o. long taper. We are continuing here in the hospital. MDM moderate Principal Problem: NSTEMI (non-ST elevated myocardial infarction) (CMS/HCC) (HCC) Active Problems: Hyperglycemia Resolved Problems: No resolved hospital problems. Voice recognition software [employer] Direct was used dictate and transcribe this document. Pharmacists variances may occur. Despite proofreading, typographical errors may occur. Jaylene Huang MD 12/08/2024 2:24 PM UME DRAPER * Kemi Jang, OT - 12/08/2024 1:57 PM CST Occupational Therapy Progress Note Past Medical History: Diagnosis Date Anemia Anxiety [...] (CMS/HCC) (HCC) Type 2 diabetes mellitus (HCC) 12/08/24 1334 General Session Type Treatment OT Received On 12/08/24 Safe Environment Arm band checked;Patient found in supine;Gait belt utilized for all out of bed mobility Subjective Agreeable to Therapy Family/Caregiver Present No Precautions Precautions Cardiac;Fall risk Precaution Comments PPE donned by therapist: gown, gloves, mask Pain Assessment Pain Assessment No/denies pain Cognition Overall Cognitive Status WFL Arousal/Alertness Alert;Appropriate responses to stimuli Attention Span Appears intact Memory Appears intact Current communication Appears Intact Orientation Oriented X4 (person, place, time, situation) Following Commands Follows all commands and directions without difficulty Safety Judgment Good awareness of safety precautions Insight Fully aware of deficits Problem Solving Able to problem solve independently Compliance/Behavior Easy to engage Perseveration Not present Balance Balance Yes Static Sitting Balance Static Sitting-Balance Support No upper extremity supported;Feet supported Static Sitting-Sitting Surface Bed Static Sitting-Level of Assistance Independent Static Standing Balance Static Standing-Balance Support Bilateral upper extremity supported (FWW) Static Standing-Standing Surface Floor Static Standing-Level of Assistance Close supervision ADL ADLS (WDL) X Grooming Grooming: Where assessed Edge of bed Grooming: Level of assistance Modified independent (therapist gathers items for hand hygiene) Toileting Toileting: Where assessed Bedside Commode Toileting: Equipment utilized Other (Comment) (FWW for steadying during standing for clothing management) Toileting: Level of assistance Standby Assist Toileting: Assistance with Balance;Safety Bed Mobility Bed Mobility Yes Bed Mobility 1 Bed Mobility From 1 Supine Bed Mobility Type 1 To and from Bed Mobility to 1 Edge of bed Level of Assistance 1 Modified Independent (HOB elevated, use of bed rails) Transfers Transfer Yes Transfer 1 Transfer From 1 Sit Transfer Type 1 To and from Transfer to 1 Stand Technique 1 Sit to stand;Stand to sit Transfer Device 1 Wheeled walker Transfer Level of Assistance 1 Standby Assist Toilet Transfers Toilet Transfer From Bed Toilet Transfer Type To and from Toilet Transfer to Standard bedside commode Toilet Transfer Technique Stand and Step (3-4 steps) Toilet Transfer: Equipment Wheeled walker Toilet Transfers Supervision (SBA) Activity Tolerance Endurance Tolerates less than 10 min activity no significant change in vital signs Activity Tolerance Comments SOB noted with activity, pt fatigues quickly but vitals remain stable Other Comments Comments per RN Arelis, pt is appropriate for therapy Safe Environment End of Therapy Session Safe Environment End of Therapy Session Patient left supine in bed;Call light within reach;Overbed table within reach Assessment Prognosis Good Problem List Decreased upper extremity range of motion;Decreased upper extremity strength;Decreasedendurance;Decreased functional mobility;Decreased ADL independence;Decreased IADL independence;Debility;Decreased mobility;Decreased balance Barriers to Discharge Current Mobility Status;Current ADL Status Plan Plan Continue with current plan;If this is the last note, consider this the discharge summary Recommendation/Plan OT Recommendation Correction Facility Recommend SNF due to Unable to safely care for self in the home;Skilled therapy needed to address care for self in the home;Skilled therapy needed to address functional deficits;Skilled therapy needed for patient to return to prior level of independence;Risk of injury at home Patient at high risk for Falls;Readmission;Injury due to decreased ability to care for self;Injury due to reduced functional status;Injury due to balance deficits;Injury at home as patient has not returned to prior level of function;Prolonged dependence for self care tasks OT Frequency during current admission 2-3x/wk (M-F, Sat PRN) Treatment/Interventions during current admission ADL/IADL retraining;Balance Training;Compensatory technique education;Endurance training;Functional activity;Functional mobility training;Functional transfer training;Strengthening;Therapeutic activity;Therapeutic exercise;Transfer training OT Equipment Recommended (defer to rehab facility) Progress during current admission Progressing toward goals OT Time Calculation OT Start Time 1334 OT Stop Time 1347 OT Time Calculation (min) 13 min Multi-Disciplinary Problems (from Occupational Therapy) Active Problems Problem: Dressings Lower Extremities Start Date: 12/06/24 Goal Start Date Expected End Date End Date STG - Patient to complete lower body dressing 12/06/24 12/13/24 -- Goal Details: With minimal assist and AE PRN Problem: Dressing Upper Extremities Start Date: 12/06/24 Goal Start Date Expected End Date End Date STG - Patient will dress upper body 12/06/24 12/13/24 -- Goal Details: With moderate assist Problem: Grooming Start Date: 12/06/24 Goal Start Date Expected End Date End Date STG - Patient will complete grooming 12/06/24 12/13/24 -- Goal Details: While standing at sink with SBA Problem: Toileting Start Date: 12/06/24 Goal Start Date Expected End Date End Date STG - Patient will complete toileting tasks with 12/06/24 12/13/24 -- Goal Details: Independently Problem: Transfers Start Date: 12/06/24 Goal Start Date Expected End Date End Date STG - Patient will perform toilet transfer 12/06/24 12/13/24 -- Goal Details: With distant supervision Problem: OT Misc Start Date: 12/06/24 Goal Start Date Expected End Date End Date OT STG - [facility] 1 12/06/24 12/13/24 -- Goal Details: Patient will tolerate AROM UE HEP x's 10 reps across all planes to increase endurancefor ADL's. UME DRAPER * Jenny Moy, ENGAGEMENT EXECUTIVE - 12/08/2024 11:31 AM CST Physical Therapy 12/08/24 1044 Pain Assessment Pain Assessment 0-10 Pain Score 7 Bed Mobility 1 Bed Mobility From 1 Supine;Rolling right;Rolling left Bed Mobility Type 1 To and from Bed Mobility to 1 Rolling right;Rolling left Level of Assistance 1 Standby Assist Transfer 1 Transfer From 1 Bed;Sit Transfer Type 1 To and from Transfer to 1 Stand Technique 1 Sit to stand;Stand to sit Transfer Device 1 No device;Hand held assist (held onto bed rail and arm of commode) Transfer Level of Assistance 1 Minimum Assist;Contact Guard Assist Transfers 2 Transfer From 2 Bed Transfer Type 2 To and from Transfer to 2 Commode-standard Technique 2 Stand and step Transfer Device 2 No device Transfer Level of Assistance 2 Contact Guard Assist;Minimum Assist Other Comments Other PT Comments pt required increased time and rest breaks inbetween activity Safe Environment End of Therapy Session Safe Environment End of Therapy Session Patient left sitting at edge of bed;Call light within reach;Overbed table within reach Assessment Prognosis Good Problem List Reduced mobility;Decreased strength;Decreased endurance;Impaired balance Plan Plan If this is the last note, consider this the discharge summary Recommendation/Plan PT Recommendation/Plan Correction Facility Recommend SNF due to Risk of injury at home;Unable to safely care for self in the home;Skilled therapy needed to address care for self in the home Patient at high risk for Falls;Readmission;Injury due to decreased ability to care for self;Injury due to reduced functional status PT Time Calculation PT Start Time 1030 PT Stop Time 1040 PT Time Calculation (min) 10 min UME DRAPER * Enio Calhoun, OT - 12/08/2024 11:17 AM CST Occupational Therapy 12/08/24 1113 General OT Missed Visit Reason Patient declined (Pt reports she just finished working w/PT and endorses an increase in fatigue. Pt requests this group underwriter to come back this PM if possible. OT will reattempt as schedule allows.) UME DRAPER * Yuni Puentes, [facility] - 12/08/2024 9:40 AM CST Warfarin Monitoring Agustin Gomez is a 59 y.o. female [id number] Pharmacy service has been consulted for warfarin dosing and monitoring per policy. Indication: hx of LV thrombus Goal INR: 2.0-3.0 Previous Home Warfarin Regimen: 2 mg daily at most recent anticoagulant clinic visit. However, homemed list says 3 mg daily. Patient was receiving 2 mg daily on recent admission. Pertinent Medical History: Status post single-chamber ICD for severe nonischemic cardiomyopathy with Biotronik Acticor 7 VR-T DX on 15 July 2023 ([facility]). Severe nonischemic cardiomyopathy with LVEF of 15-20% on echo 10 November 2024. Status post CVRx Barostim Neo2 device implantation on 18 November 2024 ([place]). Significant Drug Interactions [potential impact]: amiodarone [incr INR] Aspirin [aspirin] Recent Labs: Recent Labs Lab Units 12/08/24 0529 12/08/24 0315 12/07/24 0027 12/06/24 0608 12/05/24 0547 12/04/24 1612 INR -- 2.29* 1.97* 1.73* -- 1.65* HEMOGLOBIN g/dL 8.5* -- 10.2* 10.2* 9.5* 8.9* HEMATOCRIT % 30.5* -- 38.0 36.8 33.7* 31.6* PLATELETS K/cumm 356 -- 380 435* 406* 424* Recent Dosing History: Date Dose Ordered (mg) Dose Administered? Bridge Therapy (dose) Comments/Pertinent Clinical Updates(Vit K, blood products, procedures, etc.) 12/05/24 3 mg Given none none 12/06/24 3 mg Given none 12/07/24 3 mg Given none 12/08/24 2 mg ordered Assessment/Plan: Pharmacy dosing warfarin per policy. INR therapeutic and is rising fairly steadily. Patient was therapeutic on 2 mg dose with INR of 2.54 on 11/29/24. Decrease regimen to 2 mg daily at this time and continue to monitor for need of further adjustments . Bridge therapy is not indicated at this time. INR to be monitored daily. Next INR: 12/09/24 0500 Pharmacy will continue to follow patient's clinical progress throughout admission. Thank you for the opportunity to participate in the care of this patient. Yuni Puentes [facility] Pharmacy Department [phone] UME DRAPER * Jaylene Huang MD - 12/07/2024 3:55 PM CST General Medicine Daily Progress SUBJECTIVE Chief complaint of anterior chest wall pain. Interval History: Reproducible with palpation, pain medications are helping OBJECTIVE Vitals: 24hr Min/Max: Temp Min: 36.1 ??C (97 ??F) Max: 36.7 ??C (98.1 ??F) Pulse Min: 57 Max: 115 BP Min: 101/46 Max: 132/74 Resp Min: 17 Max: 18 SpO2 Min: 90 % Max: 99 % Most Recent : Vitals: 12/07/24 1500 BP: 107/80 Pulse: 84 Resp: 17 Temp: 36.1 ??C (97 ??F) SpO2: 97% I/O last 2 completed shifts: In: 360 [P.O.:360] Out: - I/O this shift: In: 240 [P.O.:240] Out: - Physical Exam: Eyes: EOMI, ENOCH, sclare non icteric Neck: supple, no nuchal ridigity, no gross carotid bruits appreciated Pharynx: No gross oral lesion, tongue midline, mucosa moist Lungs diminished bilateral Heart: [id number], no significant murmur or gallop Abd: +BS, Non Tender, Non distended, No gross hepatomegaly Lower Ext: 1+ edema, pedal artery pulses are palpable bilaterally Neuro: No new deficits appreciated Musculoskeletal: no gross joint erythema, edema, tenderness Skin: No new change Lab/Current Medication Review: Recent Results (from the past 24 hours) POCT glucose Collection Time: 12/06/24 5:29 PM Result Value Ref Range Glucose, POC 115 70 - 199 mg/dL POCT glucose Collection Time: 12/06/24 8:52 PM Result Value Ref Range Glucose, POC 219 (H) 70 - 199 mg/dL CBC with auto differential Collection Time: 12/07/24 12:27 AM Result Value Ref Range WBC 11.3 (H) 3.8 - 9.9 K/cumm Hgb 10.2 (L) 11.9 - 15.5 g/dL Hct 38.0 35.6 - 45.5 % Plt 380 150 - 400 K/cumm MPV 10.5 9.1 - 12.3 fL RBC 4.35 3.90 - 5.20 M/cumm MCV 87.4 81.3 - 96.4 fL MCH 23.4 (L) 27.1 - 33.3 pg MCHC 26.8 (L) 32.3 - 35.7 g/dL RDW CV 22.5 (H) 11.1 - 14.9 % RDW SD 70.7 (H) 35.7 - 48.1 fL NRBC abs 0.10 (H) 0.00 - 0.01 K/cumm Comprehensive metabolic panel Collection Time: 12/07/24 12:27 AM Result Value Ref Range Sodium 143 135 - 145 mmol/L Potassium, pl 4.0 3.3 - 4.9 mmol/L Chloride 98 97 - 110 mmol/L CO2 30 22 - 32 mmol/L Anion gap 15 2 - 15 mmol/L BUN 18 6 - 25 mg/dL Creatinine 0.40 (L) 0.60 - 1.10 mg/dL Glucose 183 70 - 199 mg/dL Calcium 8.8 8.5 - 10.3 mg/dL Bilirubin, total 0.3 0.1 - 1.2 mg/dL Protein, pl 7.0 6.5 - 8.5 g/dL Albumin 4.2 3.5 - 5.0 g/dL Alk phos 94 40 - 130 Units/L ALT 29 7 - 45 Units/L AST 18 10 - 45 Units/L Magnesium Collection Time: 12/07/24 12:27 AM Result Value Ref Range Magnesium 2.4 1.4 - 2.5 mg/dL Protime-INR Collection Time: 12/07/24 12:27 AM Result Value Ref Range PT 21.6 (H) 9.7 - 13.0 sec INR 1.97 (H) 0.90 - 1.20 Differential, auto Collection Time: 12/07/24 12:27 AM Result Value Ref Range Neutrophil abs 8.2 (H) 1.5 - 6.5 K/cumm Imm gran abs 0.2 (H) 0.0 - 0.1 K/cumm Lymphocyte abs 1.9 0.8 - 3.3 K/cumm Monocyte abs 0.8 0.2 - 0.8 K/cumm Eosinophil abs 0.0 0.0 - 0.5 K/cumm Basophil abs 0.1 0.0 - 0.1 K/cumm Neutrophil pct 73.1 % Imm gran pct 2.1 % Lymphocyte pct 16.9 % Monocyte pct 7.3 % Eosinophil pct 0.1 % Basophil pct 0.5 % eGFR Collection Time: 12/07/24 12:27 AM Result Value Ref Range eGFR >90 >=60 mL/min/1.73 m2 POCT glucose Collection Time: 12/07/24 1:49 AM Result Value Ref Range Glucose, POC 227 (H) 70 - 199 mg/dL POCT glucose Collection Time: 12/07/24 7:21 AM Result Value Ref Range Glucose, POC 275 (H) 70 - 199 mg/dL POCT glucose Collection Time: 12/07/24 11:54 AM Result Value Ref Range Glucose, POC 225 (H) 70 - 199 mg/dL ECG 12 lead Result Date: 12/06/2024 Narrative: Vent Rate: 99 bpm RR Interval: 602 msec AK Interval: 349 msec QRS Duration: 98 msec QT Interval: 368 msec QTC Interval: 424 msec P-R-T Dexter: -9 - -6 - 75 degrees IMPRESSION: Sinus rhythm with frequent PACs MODERATE VOLTAGE CRITERIA FOR LVH, CONSIDER NORMAL VARIANT [MEETS CRITERIA IN ONE OF: R(aVL), S(V1), R(V5), R(V5/V6)+S(V1)] NONSPECIFIC T-WAVE ABNORMALITY ABNORMAL RHYTHM ECG NO CHANGE FROM PREVIOUS TRACING NOTED Electronically Signed By: Doni Coles MD XR Chest 1 View Result Date: 11/25/2024 Narrative: EXAMINATION: 1 view chest radiograph Impression: Comparison is made to radiograph dated 11/22/2024. Single lead cardiac pacer with lead overlying the right ventricle. Hypoglossal nerve stimulator with generator overlying the right chestand leads overlying the right neck. Cervical fusion instrumentation in place. Partially imaged thoracolumbar spinal fusion instrumentation. Multilevel vertebroplasty changes. Partially imaged left humeral head screws. Small lung volumes and mild bibasilar atelectasis. No pneumothorax or pleural effusion. Stable cardiac mediastinal silhouette. Dictated by: Mike rBown MD The radiology attending physician has personally reviewed this study, and had reviewed and/or edited this written report and agrees with it. Electronically signed by: Nereyda Medeiros M.D. XR Chest 1 View Result Date: 11/22/2024 Narrative: EXAMINATION: 1 view chest radiograph Impression: Comparison is made to radiograph dated 11/09/2024. Left subclavian approach single leadcardiac pacer defibrillator with lead overlying the right [...] it. Electronically signed by: Cesar Bryan M.D. Transthoracic Echo (TTE) Limited/Followup Result Date: 11/10/2024 Narrative: [address] [address] Limited Echocardiogram Report Patient Name: AGUSTIN GOMEZ Caitlin : 1965 Study Date: 11/10/2024 9:09:45 AM Gender: F Tech: Location: [id number] Ref Provider: RACHEAL SAUL Height(Cm): BSA: Weight(Kg): [...] ] 2D/MM Value Range Doppler Value Range FINDINGS: Aorta: Normal aortic root. Left Ventricle: [...] the lateral wall in the four-chamber view. E jection Fraction is estimated to be 15 to 20 %. Normal right ventricular size. Normal right ventricular systolic function. Linear artifact in right ventricle suggestive of catheter(s), pacemaker lead(s), or ICD lead(s). Normal structure of the mitral valve. Normal structure of the aortic valve. Trivial regurgitation in the tricuspid valve. Electronically Signed By: Dr Racheal Saul 11/10/2024 11:02:13 AM COSTUME DRAPER XR Chest 1 View Result Date: 11/09/2024 Narrative: EXAM DESCRIPTION: XR CHEST 1 VIEW REASON [...] Javan Mcgill M.D. KN: ANNA Report ID: [id number] Reading Location: [place] [address] Current Facility-Administered Medications Medication Dose Route Frequency Provider Last Rate Last Admin acetaminophen (TYLENOL) tablet 650 mg 650 mg oral Q6H PRN Franchesca Pierce MD 650 mg at 12/07/24 1542 amiodarone (PACERONE) tablet 200 mg 200 mg oral Daily Franchesca Pierce MD 200 mg at 12/07/24 0818 aspirin enteric coated tablet 81 mg 81 mg oral Daily Franchesca Pierce MD 81 mg at 12/07/24 0818 atorvastatin (LIPITOR) tablet 20 mg 20 mg oral Daily Franchesca Pierce MD 20 mg at 12/07/24 0817 cyclobenzaprine (FLEXERIL) tablet 10 mg 10 mg oral TID PRN Sanjeev Gonzales MD 10 mg at 12/07/24 1542 dextrose gel in packet 15 g 15 g oral Q15 Min PRN Sampson Davenport II, MD Or dextrose (D10W) 10% bolus 250 mL 250 mL intravenous Q15 Min PRN Sampson Davenport II, MD DULoxetine DR (CYMBALTA) extended release capsule 60 mg 60 mg oral Daily Sanjeev Gonzales MD 60 mg at 12/07/24 0818 empagliflozin (JARDIANCE) tablet 10 mg 10 mg oral Daily Racheal Saul MD 10 mg at 12/07/24 0824 furosemide (LASIX) tablet 40 mg 40 mg oral BID DIURETIC Sanjeev Gonzales MD 40 mg at 12/07/24 1542 glucagon injection 1 mg 1 mg intramuscular Q30 Min PRN Sampson Davenport II, MD insulin glargine (LANTUS, SEMGLEE) 100 unit/mL injection 35 Units 35 Units subcutaneous QAM Sampson Davenport II, MD 35 Units at 12/07/24 0817 insulin lispro (HumaLOG, ADMELOG) 100 unit/mL injection 0-4 Units 0-4 Units subcutaneous Nightly Sanjeev Gonzales MD 1 Units at 12/06/242055 insulin lispro (HumaLOG, ADMELOG) 100 unit/mL injection 0-5 Units 0-5 Units subcutaneous TID with Sampson Osman II, MD 2 Units at 12/07/24 1207 insulin lispro (HumaLOG, ADMELOG) 100 unit/mL injection 17 Units 17 Units subcutaneous TID with meals Sampson Davenport II, MD 17 Units at 12/07/24 1207 insulin lispro (HumaLOG, ADMELOG) 100 unit/mL injection 7 Units 7 Units subcutaneous QID PRSampson Cannon II, MD levothyroxine (SYNTHROID) tablet 125 mcg 125 mcg oral Daily - 0600 Sanjeev Gonzales MD 125 mcg at 12/07/24 0503 lidocaine (LIDODERM) 5 % patch 2 patch 2 patch transdermal Q24H Sampson Davenport II, MD 2 patch at 12/07/24 1314 metoprolol tartrate (LOPRESSOR) immediate release tablet 12.5 mg 12.5 mg oral BID Sanjeev Gonzales MD 12.5 mg at 12/07/24 0818 midodrine (PROAMATINE) tablet 10 mg 10 mg oral TID AC Sanjeev Gonzales MD 10 mg at 12/07/24 1207 mirtazapine (REMERON RAOUL-TAB) disintegrating tablet 15 mg 15 mg oral Nightly Franchesca Pierce MD 15mg at 12/06/24 205 nitroglycerin (NITROSTAT) sublingual tablet 0.4 mg 0.4 mg sublingual Q5 Min PRN Franchesca Pierce MD0.4 mg at 12/04/242006 ondansetron (ZOFRAN) tablet 4 mg 4 mg oral Q8H PRN Sanjeev Gonzales MD oxyCODONE (ROXICODONE) tablet 10 mg 10 mg oral Q4H PRN Sampson Davenport II, MD 10 mg at [address] (PROTONIX) extended release tablet 40 mg 40 mg oral Daily Franchesca Pierce MD 40 mgat 12/07/24817 peg [id number]-[id number] (ARTIFICAL TEARS) 1-0.2-0.2 % ophthalmic solution 1 drop 1 drop each eye QID PRN Franchesca Pierce MD pregabalin (LYRICA) capsule 75 mg 75 mg oral BID Franchesca Pierce MD 75 mg at 12/07/24817 rizatriptan (MAXALT) tablet 10 mg 10 mg oral Q2H PRN Sampson Davenport II, MD rOPINIRole (REQUIP) tablet 0.25 mg 0.25 mg oral Nightly Franchesca Pierce MD 0.25 mg at 12/06/242049 sacubitriL-valsartan (ENTRESTO) 24-26 mg tablet 0.5 tablet 0.5 tablet oral BID Sanjeev Gonzales MD 0.5 tablet at 12/07/24816 senna-docusate (PERICOLACE) 8.6-50 mg per tablet 1 tablet 1 tablet oral BID Sanjeev Gonzales MD 1 tablet at 12/06/242049 spironolactone (ALDACTONE) tablet 25 mg 25 mg oral Daily Sanjeev Gonzales MD 25 mg at 12/07/24 08 vancomycin (VANCOCIN) capsule 125 mg 125 mg oral Q6H [facility] Sampson Davenport II, MD 125 mg at 12/07/24 120 warfarin (COUMADIN) tablet 3 mg 3 mg oral Daily-1800 Sampson Davenport II, MD 3 mg at 12/06/24 1706 A/P: 1. Chest wall pain, this is pretty severe, currently states 8/10. Since admission it is getting better with pain medications but did not resolve since admission. She was ruled out for acute coronary syndrome. Dr. Saul saw the patient in consultation and does not think this is related to her heart.Patient did have cardiac catheterization about 7 months ago showing 20% blockages. Very sensitive on physical examination, I was hardly touching her anterior chest where she is complaining of pain and she was hurting even with slight touch. Continuing oxycodone 10 mg p.o. every 4 hours p.r.n., lidocaine patch 2. Severe systolic congestive heart failure, status post ICD and borostim device placement on November 18, 2024. Right upper chest the scar looks healing appropriately. Continue guideline directed therapy with Jardiance, Lasix, metoprolol tartrate, Entresto. Monitoring vital signs closely and blood work with the creatinine potassium. 3. Chronic respiratory failure, continue home oxygen level, 4. Atrial fibrillation, continuing anticoagulation with warfarin and amiodarone. 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 We do not have response yet. MDM moderate Principal Problem: NSTEMI (non-ST elevated myocardial infarction) (CMS/HCC) ([facility]) Active Problems: Hyperglycemia Resolved Problems: No resolved hospital problems. Voice recognition software [employer] Direct was used dictate and transcribe this document. Pharmacists variances may occur. Despite proofreading, typographical errors may occur. Jaylene Huang MD 12/07/2024 3:56 PM UME DRAPER * Nettie Riggs RN - 12/07/2024 2:30 PM CST ..Advance Care Planning Advance Care Planning Conversation The patient and/or family consented to a voluntary Advance Care Planning conversation. Individuals present for the conversation: patient Summary of the conversation: Pt wants to possibly do rehab and then Palliative or Hospice Outcome of the conversation and documents completed (select all that apply): recommend referral to Palliative Care for Advance Care Planning (ACP) The services provided in this conversation and described in this note are non- billable and to be used for ongoing clinical care only. Nettie Riggs RN UME DRAPER * Jenny Moy, ENGAGEMENT EXECUTIVE - 12/07/2024 11:55 AM CST Physical Therapy 12/07/24 1115 PT Last Visit Session Type Treatment Safe Environment Arm band checked;Session completed bedside;Gait belt utilized for all out of bed mobility;Patient found sitting at edge of bed Pain Assessment Pain Score 7 Seated Seated-Exercises Lower extremity Reps/Sets 10 Transfer 1 Transfer From 1 Bed;Sit Transfer Type 1 To and from Transfer to 1 Stand Technique 1 Sit to stand;Stand to sit Transfer Device 1 Wheeled walker Transfer Level of Assistance 1 Minimum Assist Trials/Comments 1 stood eob 10 seconds x1 Safe Environment End of Therapy Session Safe Environment End of Therapy Session Patient left sitting at edge of bed;Call light within reach;Overbed table within reach Assessment Prognosis Good Problem List Reduced mobility;Decreased strength;Decreased endurance;Impaired balance Plan Plan If this is the last note, consider this the discharge summary Recommendation/Plan PT Recommendation/Plan Correction Facility Recommend SNF due to Risk of injury at home;Unable to safely care for self in the home;Skilled therapy needed to address care for self in the home Patient at high risk for Falls;Readmission;Injury due to decreased ability to care for self;Injury due to reduced functional status PT Time Calculation PT Start Time 1115 PT Stop Time 1125 PT Time Calculation (min) 10 min UME DRAPER * Yuni Puentes, [facility] - 12/07/2024 11:17 AM CST eDKA Monitoring for SGLT2i Sodium-glucose cotransporter-2 inhibitors (SGLT2i), including empagliflozin (Jardiance) and dapagliflozin (Farxiga), can be used for type 2 diabetes, heart failure, and chronic kidney disease. These agents carry a small risk of euglycemic diabetic ketoacidosis (eDKA). This can occur due to a rapid increase in urinary glucose excretion and excess counter-regulatory hormones. The presentation and management of eDKA is nearly identical to that of traditional DKA. Events thatcan precipitate eDKA include acute illness, surgical procedures, trauma, dehydration, low carbohydrate intake, reduced or insufficient insulin dosing, and excessive alcohol intake. Holding SGLT2i ther apy for up to 3 days prior to surgery may limit the risk of eDKA. Treatment of eDKA includes IV fluids, insulin and dextrose, and management of underlying etiology. Two values are used to help diagnose eDKA: Elevated anion gap (>12) to determine if a patient is acidotic current anion gap = 15 on 12/07/24 Elevated beta-hydroxybutyrate (>2 mmol/L) to determine if a patient is ketotic Two clinical monitoring rules have been developed to help pharmacists identify patients who may be experiencing eDKA associated with SGLT2i. Active order for SGLT2i (>72 hrs) AND elevated anion gap (>12) with NO beta-hydroxybutyrate result in the past 72 hours o Pharmacists should recommend checking a serum beta-hydroxybutyrate level Active order for SGLT2i AND elevated beta-hydroxybutyrate level (>2 mmol/L) o Pharmacists should recommend holding SGLT2i Reference: [employer] April 2022: Euglycemic DKA from SGLT2 inhibitors ([employer]) UME DRAPER * Yuni Puentes [facility] - 12/07/2024 11:12 AM CST Warfarin Monitoring Agustin Gomez is a 59 y.o. female patient admitted to [facility]-[id number]. Pharmacy service has been consulted for warfarin dosing and monitoring per policy. Indication: hx of LV thrombus Goal INR: 2.0-3.0 Previous Home Warfarin Regimen: 2 mg daily at most recent anticoagulant clinic visit. However, homemed list says 3 mg daily Pertinent Medical History: Status post single-chamber ICD for severe nonischemic cardiomyopathy with Biotronik Acticor 7 VR-T DX on 15 July 2023 (LC). Severe nonischemic cardiomyopathy with LVEF of 15-20% on echo 10 November 2024. Status post CVRx Barostim Neo2 device implantation on 18 November 2024 ([employer]). Significant Drug Interactions [potential impact]: amiodarone [incr INR] Aspirin [aspirin] Recent Labs: Recent Labs Lab Units 12/07/24 0027 12/06/24 0608 12/05/24 0547 12/04/24 1612 INR 1.97* 1.73* -- 1.65* HEMOGLOBIN g/dL 10.2* 10.2* 9.5* 8.9* HEMATOCRIT % 38.0 36.8 33.7* 31.6* PLATELETS K/cumm 380 435* 406* 424* Recent Dosing History: Date Dose Ordered (mg) Dose Administered? Bridge Therapy (dose) Comments/Pertinent Clinical Updates(Vit K, blood products, procedures, etc.) 12/05/24 3 mg Given none none 12/06/24 3 mg Given none 12/07/24 3 mg ordered Assessment/Plan: Pharmacy dosing warfarin per policy. INR subtherapeutic, but approaching therapeutic levels. Continue current regimen of 3 mg daily . Bridge therapy is not indicated at this time. INR to be monitored daily. Next INR: 12/08/24 0500 Pharmacy will continue to follow patient's clinical progress throughout admission. Thank you for the opportunity to participate in the care of this patient. Yuni Puentes RPh [facility] Pharmacy Department [phone] UME DRAPER * Marcelle Rankin, OT - 12/06/2024 4:34 PM CST Occupational Therapy 12/06/24 1030 General Chart Reviewed Yes Session Type Evaluation OT Received On 12/06/24 Safe Environment Arm band checked;Patient found in supine Subjective Agreeable to Therapy Subjective Comment Patient states her transfers are pretty good. She was at a rehab facility in [place] and plans to go to her daughters house after she leaves there. Family/Caregiver Present No Precautions Precautions Cardiac Home Living Type of Home House Home Layout One level Home Access Ramped entrance Bathroom Shower/Tub Walk-in shower with threshold Bathroom Toilet Standard Bathroom Equipment Shower chair;Grab bars in shower/tub;Toilet raiser;Commode Bathroom Accessibility Accessible via wheelchair Home Mobility Equipment-Available Wheeled walker;4-Wheeled walker;Single point cane;Wheelchair-manual Home Mobility Equipment-Currently Using Wheelchair-manual Prior Function Level of Brooke Independent functional transfers;Needs assistance with ADLs;Needs assistance with ambulation;Dependent with homemaking Lives With Spouse;Daughter Receives Help From Spouse/Significant other;Family Driving No Fall within the last 6 months Yes Grooming Grooming: Where assessed Edge of bed Grooming: Level of assistance Independent Grooming: Assistance with Wash/dry hands Toileting Toileting: Where assessed Bedside Commode Toileting: Level of assistance Standby Assist Pain Assessment Pain Assessment 0-10 Pain Score 9 Pain Location Chest Cognition Overall Cognitive Status WFL Orientation Oriented X4 (person, place, time, situation) Compliance/Behavior Easy to engage Sensation Numbness/Tingling Yes (lower back and left leg) Coordination Serial Opposition WFL Static Sitting Balance Static Sitting-Balance Support Bilateral upper extremity supported Static Sitting-Sitting Surface Bed Static Sitting-Level of Assistance Independent Static Standing Balance Static Standing-Balance Support Bilateral upper extremity supported Static Standing-Standing Surface Floor Static Standing-Level of Assistance Contact guard;Close supervision Bed Mobility 1 Bed Mobility From 1 Supine Bed Mobility Type 1 To and from Bed Mobility to 1 Edge of bed Level of Assistance 1 Independent Transfer 1 Transfer From 1 Bed Transfer Type 1 To and from Transfer to 1 Commode-standard Technique 1 Sit to stand;Stand to sit Transfer Level of Assistance 1 Standby Assist RUE Assessment RUE Assessment X RUE Comments generalized weakness LUE Assessment LUE Assessment X LUE Comments generalized weakness OT Treatment/Exercise Comments OT Treatment/Exercise Comments Patient did well but was easily fatigued. She has low endurance and increased pain. She also reports weakness in her legs and states her knees buckle. Daily Activity - 6 Clicks Putting on and taking off regular lower body clothing 3 Bathing 2 Toileting 3 Putting on and taking off upper body clothing 2 Personal Grooming 3 Eating Meals 4 Total Score (range 6-24) 17 Safe Environment End of Therapy Session Safe Environment End of Therapy Session Patient left supine in bed;Call light within reach;Overbed table within reach Assessment Prognosis Good Problem List Decreased upper extremity range of motion;Decreased upper extremity strength;Decreasedendurance;Decreased functional mobility;Decreased ADL independence;Decreased IADL independence Barriers to Discharge None Plan Plan If this is the last note, consider this the discharge summary Recommendation/Plan OT Recommendation Correction Facility (rehab) Recommend SNF due to Unable to safely care for self in the home;Skilled therapy needed to address care for self in the home;Skilled therapy needed to address functional deficits;Skilled therapy needed for patient to return to prior level of independence Patient at high risk for Injury due to decreased ability to care for self;Injury at home as patienthas not returned to prior level of function OT Frequency during current admission 2-3x/wk Treatment/Interventions during current admission ADL/IADL retraining;Balance Training;Endurance training;Functional transfer training OT Evaluation Complete Yes OT Time Calculation OT Start Time 1030 OT Stop Time 1049 OT Time Calculation (min) 19 min Multi-Disciplinary Problems (from Occupational Therapy) Active Problems Problem: Dressings Lower Extremities Start Date: 12/06/24 Goal Start Date Expected End Date End Date STG - Patient to complete lower body dressing 12/06/24 12/13/24 -- Goal Details: With minimal assist and AE PRN Problem: Dressing Upper Extremities Start Date: 12/06/24 Goal Start Date Expected End Date End Date STG - Patient will dress upper body 12/06/24 12/13/24 -- Goal Details: With moderate assist Problem: Grooming Start Date: 12/06/24 Goal Start Date Expected End Date End Date STG - Patient will complete grooming 12/06/24 12/13/24 -- Goal Details: While standing at sink with SBA Problem: Toileting Start Date: 12/06/24 Goal Start Date Expected End Date End Date STG - Patient will complete toileting tasks with 12/06/24 12/13/24 -- Goal Details: Independently Problem: Transfers Start Date: 12/06/24 Goal Start Date Expected End Date End Date STG - Patient will perform toilet transfer 12/06/24 12/13/24 -- Goal Details: With distant supervision Problem: OT Misc Start Date: 12/06/24 Goal Start Date Expected End Date End Date OT STG - Misc 1 12/06/24 12/13/24 -- Goal Details: Patient will tolerate AROM UE HEP x's 10 reps across all planes to increase endurancefor ADL's. UME DRAPER * Sampson Davenport II, MD - 12/06/2024 2:43 PM CST Hospitalist Daily Progress SUBJECTIVE: Chief complaint of No chief complaint on file. 59 year old female with past medical history of myopathy, T2DM, CHF, dilated cardiomyopathy, HTN, hypothyroidism, GERD, RLS, migraine, HLD, anemia, vitamin d deficiency, osteoporosis, anxiety, MDD, A-fib, chronic respiratory failure, and atrial thrombus. COPD (baseline on 3 L oxygen), BI (on cpap) transfer from [facility] to [facility] medicine for chest pain evaluation and management. Patient recently got barostim placement on 11/18 and recently got discharge on 12/01 to rehab. Today on 12/05/2024, patient started to have midsternal chest pain. The chest pain describe as located in the middle, radiate to the back, constant, severe, 9/10, worse with deep breath, and sharp. OSH EKG without any ST elevation. Troponin 157.9. CXR showed cardiomegaly/atelectasis. She was started on heparin and baby aspirin. Case discussed with Dr. Saul. Transfer to [place] for further care. Denies fever, chill, vomiting, diarrhea, abdominal pain or dysuria. Interval History: Pt. C/o pain, requesting her pain regime be increased in frequency to q4. Nurse is bedside. Denies cp, sob, nausea, vomiting, diarrhea, fever, or rash. Answered all questions, queries, concerns. OBJECTIVE: Vitals: 24hr Min/Max: Temp Min: 36.1 ??C (96.9 ??F) Max: 36.7 ??C (98 ??F) Pulse Min: 55 Max: 113 BP Min: 106/57 Max: 149/81 Resp Min: 18 Max: 20 SpO2 Min: 93 % Max: 99 % ROS: 16 Point ROS negative, other than the pertinent findings in HPI/Subjective Most Recent : Vitals: 12/06/24 1000 12/06/24 1104 12/06/24 1200 12/06/24 1400 BP: 106/57 BP Location: Left arm Patient Position: Lying;HOB 30 degrees Pulse: 86 85 103 90 Resp: 18 Temp: 36.2 ??C (97.1 ??F) TempSrc: Temporal SpO2: 97% Weight: Height: I/O last 2 completed shifts: In: 960 [P.O.:960] Out: 300 [Urine:300] I/O this shift: In: 360 [P.O.:360] Out: - Physical Exam General: Awake, alert, oriented x4, in NAD Eyes: EOMI, ENOCH, sclare non icteric Neck: supple, trachea midline, thyroid not enlarged, Pharynx: No gross oral lesion, tongue midline, mucosa moist Lungs: Breathing nonlabored, CTAB, currently no wheezes or rhonchi Heart: RRR, nml S1S2 Abd: +BS, Tender to palpation in left hypogastric area, abdomen Non distended, No gross hepatomegaly Lower Ext: No gross edema Neuro: Cranial nerves II-XII grossly intact. Moves all extremities equally, no gross sensory deficits Musculoskeletal: no gross joint erythema, edema, tenderness Genitourinary: No suprapubic or CVA tenderness Skin: No skin rashes, warm and dry to palpation Lab/Radiology/Diagnostic Review: Recent Results (from the past 24 hours) POCT glucose Collection Time: 12/05/24 5:15 PM Result Value Ref Range Glucose, POC 193 70 - 199 mg/dL POCT glucose Collection Time: 12/05/24 8:38 PM Result Value Ref Range Glucose, POC 259 (H) 70 - 199 mg/dL POCT glucose Collection Time: 12/06/24 2:54 AM Result Value Ref Range Glucose, POC 179 70 - 199 mg/dL CBC with auto differential Collection Time: 12/06/24 6:08 AM Result Value Ref Range WBC 10.0 (H) 3.8 - 9.9 K/cumm Hgb 10.2 (L) 11.9 - 15.5 g/dL Hct 36.8 35.6 - 45.5 % Plt 435 (H) 150 - 400 K/cumm MPV 10.2 9.1 - 12.3 fL RBC 4.38 3.90 - 5.20 M/cumm MCV 84.0 81.3 - 96.4 fL MCH 23.3 (L) 27.1 - 33.3 pg MCHC 27.7 (L) 32.3 - 35.7 g/dL RDW CV 22.8 (H) 11.1 - 14.9 % RDW SD 69.4 (H) 35.7 - 48.1 fL NRBC abs 0.03 (H) 0.00 - 0.01 K/cumm Comprehensive metabolic panel Collection Time: 12/06/24 6:08 AM Result Value Ref Range Sodium 146 (H) 135 - 145 mmol/L Potassium, pl 3.8 3.3 - 4.9 mmol/L Chloride 97 97 - 110 mmol/L CO2 36 (H) 22 - 32 mmol/L Anion gap 13 2 - 15 mmol/L BUN 19 6 - 25 mg/dL Creatinine 0.47 (L) 0.60 - 1.10 mg/dL Glucose 207 (H) 70 - 199 mg/dL Calcium 9.5 8.5 - 10.3 mg/dL Bilirubin, total 0.4 0.1 - 1.2 mg/dL Protein, pl 7.3 6.5 - 8.5 g/dL Albumin 4.4 3.5 - 5.0 g/dL Alk phos 101 40 - 130 Units/L ALT 32 7 - 45 Units/L AST 16 10 - 45 Units/L Magnesium Collection Time: 12/06/24 6:08 AM Result Value Ref Range Magnesium 2.3 1.4 - 2.5 mg/dL Protime-INR Collection Time: 12/06/24 6:08 AM Result Value Ref Range PT 18.9 (H) 9.7 - 13.0 sec INR 1.73 (H) 0.90 - 1.20 Differential, auto Collection Time: 12/06/24 6:08 AM Result Value Ref Range Neutrophil abs 7.8 (H) 1.5 - 6.5 K/cumm Imm gran abs 0.2 (H) 0.0 - 0.1 K/cumm Lymphocyte abs 1.2 0.8 - 3.3 K/cumm Monocyte abs 0.8 0.2 - 0.8 K/cumm Eosinophil abs 0.0 0.0 - 0.5 K/cumm Basophil abs 0.0 0.0 - 0.1 K/cumm Neutrophil pct 78.2 % Imm gran pct 1.9 % Lymphocyte pct 11.7 % Monocyte pct 7.9 % Eosinophil pct 0.0 % Basophil pct 0.3 % eGFR Collection Time: 12/06/24 6:08 AM Result Value Ref Range eGFR >90 >=60 mL/min/1.73 m2 POCT glucose Collection Time: 12/06/24 7:49 AM Result Value Ref Range Glucose, POC 208 (H) 70 - 199 mg/dL POCT glucose Collection Time: 12/06/24 11:50 AM Result Value Ref Range Glucose, POC 247 (H) 70 - 199 mg/dL ASSESSMENT/PLAN: Principal Problem: NSTEMI (non-ST elevated myocardial infarction) (CMS/HCC) ([facility]) Active Problems: Hyperglycemia This is a 59 year old female with past medical history of myopathy, T2DM, CHF, dilated cardiomyopathy, HTN, hypothyroidism, GERD, RLS, migraine, HLD, anemia, vitamin d deficiency, osteoporosis, anxiety, MDD, A-fib, chronic respiratory failure, and atrial thrombus. COPD (baseline on 3 L oxygen), BI (on cpap) transfer from [facility] to general medicine for chest pain evaluation and management. Vital's afebrile T 36.6, HR 79 (highest 110), RR 20, BP 131/62, sat 96% on CPAP (bi). Lab's significant for troponin 41, 48 (previous 30-36). Leukocytosis 14.7, stable chronic normocytic anemia hgb 8.9 previously 9.2, PLT 424. Normal sodium, normal K 4.4, Cre 0.52. Hyperglycemia 385 Chest pain, r/o Acute Coronary Syndrome (ACS) NSTEMI Chronic combined systolic and diastolic congestive heart failure recent 11/18/24 for R carotid barostim placement Secondary to CAD Other etiologies: PE, PTX, Aortic dissection, GERD, Pneumonia, Pericarditis & myocarditis Pretest Probability of CAD: Intermediate HEART score:6 points, moderate score. MACE 12-16.6% EMILIANA UA/NSTEMI OR STEMI score: 5 points, 26% risk at 14 days OSH trop 157.9. EKG negative TTE 11/10/2024: EF 15-20%, severe systolic dysfunction, possible thrombus in lateral wall. Plan: -Admit to telemetry; monitor and storage bin tender. -repeat EKG -continue aspirin and heparin -continue home meds -Cardiology consult. -D/C all NSAIDs (except for Asprin) b/c of an increased risk of cardiovascular events. -Cardiology consulted = feels atypical pain, non-cardiac = recommending outpx. W/ her Har[employer] (has appt. For 12/09) = s/o (12/06) Hyperglycemia Type 2 diabetes mellitus with hyperlipidemia On Metformin, Forteo, and Lantus at home Glu 385 -Start sliding scale. started basal/bolus regimen in the hospital . Atrial thrombus On warfarin at home, has been held -currently on heparin Chronic respiratory failure with hypoxia On 3L O2 via NC at all times - Continue supplemental O2 -diuresis as below Atrial fibrillation - Continue home amiodarone, metoprolol Essential hypertension -cont home lasix, spironolactone, entresto -cont midodrine -goal normotension BI -continue CPAP These fluid and electrolyte abnormalities are being treated, evaluated or monitored: Fluid overload-- diurese and follow electrolytes and renal function Disposition: Medically cleared for discharge. Pt. Will need PT / OT evals and likely insurance authagain since she is here under her [facility]. Discharge planning. CM/SW follow-up. DVT prophylaxis heparin drip Code status DNR/DNI Anticipated length of stay to be over 2 nights MDM moderate complexity My total encounter time on 12/06/2024 was 36 minutes which was spent in the activities documented inthe note. This includes time spent prior to the visit and after the visit in direct care of the patient. This time does not include time spent in any separately reportable services. Voice recognition software was used to complete this document. Sampson Davenport II, MD 12/06/2024 2:43 PM UME DRAPER UME DRAPER * Kingston Dolan, PT - 12/06/2024 1:38 PM CST Physical Therapy 12/06/24 1314 General Chart Reviewed Yes Session Type Evaluation PT Received On 12/06/24 Safe Environment Arm band checked;Patient found sitting at edge of bed;Session completed bedside;Gait belt utilized for all out of bed mobility Subjective Agreeable to Therapy Additional Pertinent History early Nov had barostem procedure at [place] Family/Caregiver Present No Physical Therapy-Patient Goal to go to [facility] swing bed Precautions Precautions Cardiac Home Living Type of Home House Home Layout One level Home Access Ramped entrance Home Mobility Equipment-Available Wheelchair-manual;Wheeled walker;Rollator Home Mobility Equipment-Currently Using Wheelchair-manual Prior Function Level of Brooke Needs assistance with ADLs;Independent functional transfers Lives With Spouse;Daughter Receives Help From Spouse/Significant other;Family Driving No Fall within the last 6 months Yes Fall within the last 6 months comment fell, nothing broken Prior Function Comments did have a fall and broke right hip 06/09/24 had ORIF Pain Assessment Pain Assessment 0-10 Pain Score 8 Pain Type Chronic pain Pain Location Chest (chest wall) Cognition Orientation Oriented X4 (person, place, time, situation) Balance Balance Yes Static Sitting Balance Static Sitting-Balance Support Bilateral upper extremity supported;Feet unsupported Static Sitting-Sitting Surface Bed Static Sitting-Level of Assistance Independent Static Standing Balance Static Standing-Balance Support Bilateral upper extremity supported Static Standing-Standing Surface Floor Static Standing-Level of Assistance Minimum assistance;Moderate assistance Bed Mobility 1 Bed Mobility Comments 1 NT Transfer 1 Transfer From 1 Bed;Sit Transfer Type 1 To and from Transfer to 1 Chair with arms Technique 1 Sit to stand;Stand to sit Transfer Device 1 Hand held assist Transfer Level of Assistance 1 Moderate Assist Trials/Comments 1 2-3 steps with therapist to bedside chair and back to bed Ambulation 1 Distance (ft) 1 2-3 steps Surface 1 Level tile Device 1 Hand held assist Assistance 1 Moderate Assist Quality of Gait 1 dec; balance, shuffle gt, flexed trunk Ambulation Comments 1 fall risk RLE Assessment RLE Assessment X (arom wfl, gross strength 3>3-/5) LLE Assessment LLE Assessment X (arom wfl, gross strength 3>3-/5) Basic Mobility - 6 Click How much difficulty does the patient have: Turning over in bed 3 How much difficulty does the patient currently have: Sitting down and standing up from a chair witharms? 2 How much difficulty does the patient have: Moving from lying on back to sitting on the side of the bed? 2 How much difficulty does the patient have: Moving to and from a bed to a chair including wheelchair? 2 How much help does the patient currently need: Walk in hospital room? 2 How much help from another person does the patient currently need: Climbing 3-5 steps with a railing? 2 Total 6 Click Score (range 6-24) 13 Score Interpretation 33.99 Safe Environment End of Therapy Session Safe Environment End of Therapy Session Patient left sitting at edge of bed;RN notified;Call light within reach;Overbed table within reach Assessment Prognosis Good Problem List Reduced mobility;Debility;Gait deviations;Decreased strength;Decreased endurance;Impaired balance;Pain Barriers to Discharge Current Mobility Status Plan Plan Plan of care initiated;If this is the last note, consider this the discharge summary Recommendation/Plan PT Recommendation/Plan Correction Facility;Other (pt wants to go to swing bed in [place]) Recommend SNF due to Risk of injury [...] of function PT Frequency during current admission Daily Treatment/Interventions during current admission Bed mobility;Functional transfer training;Gait training;Therapeutic exercise PT Equipment Recommended Other (Comment) (defer to rehab) PT Evaluation Complete Yes PT Time Calculation PT Start Time 1314 PT Stop Time 1338 PT Time Calculation (min) 24 min Multi-Disciplinary Problems (from Physical Therapy) Active Problems Problem: PT [facility] Start Date: 12/06/24 Goal Start Date Expected End Date End Date PT LT - [facility] 1 12/06/24 12/13/24 -- Goal Details: Pt to require/be min>cga with bed mobility consistently to increase functional mobility. Goal Start Date Expected End Date End Date PT LT - [facility] 2 12/06/24 12/13/24 -- Goal Details: Pt to require/be min>cga with all transfers consistently to increase functional mobility and safety. Goal Start Date Expected End Date End Date PT [facility] - [facility] 3 12/06/24 12/13/24 -- Goal Details: Pt to ambulate 30-50' min assist with a fww consistently, to increase functional mobility and safety. UME DRAPER * Alma Hewitt [facility] - 12/06/2024 12:17 PM CST Warfarin Monitoring Agustin Gomez is a 59 y.o. female patient admitted to [facility] [id number]. Pharmacy service has been consulted for warfarin dosing and monitoring per policy. Indication: hx of LV thrombus Goal INR: 2.0-3.0 Previous Home Warfarin Regimen: 2 mg daily at most recent anticoagulant clinic visit. However, homemed list says 3 mg daily Pertinent Medical History: Status post single-chamber ICD for severe nonischemic cardiomyopathy with Biotronik Acticor 7 VR-T DX on 15 July 2023 ([facility]). Severe nonischemic cardiomyopathy with LVEF of 15-20% on echo 10 November 2024. Status post CVRx Barostim Neo2 device implantation on 18 November 2024 ([employer]). Significant Drug Interactions [potential impact]: amiodarone [incr INR] Aspirin [aspirin] Recent Labs: Recent Labs Lab Units 12/06/24 0608 12/05/24 0547 12/04/24 1612 11/29/246 INR 1.73* -- 1.65* 2.54* HEMOGLOBIN g/dL 10.2* 9.5* 8.9* 9.2* HEMATOCRIT % 36.8 33.7* 31.6* 33.3* PLATELETS K/cumm 435* 406* 424* 370 Recent Dosing History: Date Dose Ordered (mg) Dose Administered? Bridge Therapy (dose) Comments/Pertinent Clinical Updates(Vit K, blood products, procedures, etc.) 12/05/24 3 mg Given none none 12/06/24 3 mg ordered none Assessment/Plan: Pharmacy dosing warfarin per policy. INR subtherapeutic. Continue current regimen of 3 mg daily . Bridge therapy is not indicated at this time. INR to be monitored daily. Next INR: 12/07/24 0500 Pharmacy will continue to follow patient's clinical progress throughout admission. Thank you for the opportunity to participate in the care of this patient. Alma Hewitt [facility] Pharmacy Department [phone] UME DRAPER * Tony Murray [facility] - 12/05/2024 7:22 AM CST Pharmacokinetic Consult - Heparin Infusion Agustin Gomez is a 59 y.o. female patient admitted to [id number]. Pharmacy service has been consulted for heparin infusion dosing and monitoring. Indication(s) for Anticoagulation: Acute Coronary Syndrome (ACS) Recent Labs Recent Labs Lab Units 12/05/24 0547 12/04/24 23012/04/24 1612 APTT sec 92* 54* 78* Recent Labs Lab Units 12/05/24 0547 12/04/24 16111/29/24205511/28/24 2154 HEMOGLOBIN g/dL 9.5* 8.9* 9.2* 8.7* HEMATOCRIT % 33.7* 31.6* 33.3* 31.5* PLATELETS K/cumm 406* 424* 370 360 Assessment / Plan The aPTT is within goal . Goal aPTT is 66 to 100 seconds. Continue heparin 14 units/kg/hr (869.4units/hr, using weight of 62.1 kg). aPTT monitoring frequency: Every 6 hours Next aPTT: 12/05 @ 1400 CBC monitoring frequency: at least q72h, next would be due 12/07 Pharmacy will continue to follow patient's clinical progress throughout admission. Will continue tomonitor labs and adjust doses accordingly. Thank you, Tony Murray, [facility] Pharmacy department [phone] UME DRAPER * Iraj Cross [facility] - 12/04/2024 11:47 PM CST Pharmacokinetic Consult - Heparin Infusion Agustin Gomez is a 59 y.o. female patient admitted to [id number]. Pharmacy service has been consulted for heparin infusion dosing and monitoring. Indication(s) for Anticoagulation: Acute Coronary Syndrome (ACS) Recent Labs Recent Labs Lab Units 12/04/24 2306 12/04/24 1612 APTT sec 54* 78* Recent Labs Lab Units 12/04/24 16111/29/24205511/28/24 2154 HEMOGLOBIN g/dL 8.9* 9.2* 8.7* HEMATOCRIT % 31.6* 33.3* 31.5* PLATELETS K/cumm 424* 370 360 Assessment / Plan The aPTT is sub-therapeutic. Goal aPTT is 66 to 100 seconds. Will give a bolus of heparin 2000 units and increase the heparin infusion rate by 2 units/kg/hr to heparin 14 units/kg/hr (869.4 units/hr,using weight of 62.1 kg). aPTT monitoring frequency: Every 6 hours Next aPTT: 12/05 @ 0600 CBC monitoring frequency: at least q72h, next would be due 12/07 Pharmacy will continue to follow patient's clinical progress throughout admission. Will continue tomonitor labs and adjust doses accordingly. Thank you, Iraj Cross PharmD [facility] Pharmacy department [phone] UME DRAPER * Yuni Puentes [facility] - 12/04/2024 3:53 PM CST Pharmacokinetic Consult -heparin infusion dosing Agustin Gomez is a 59 y.o. female patient admitted to [id number]. Pharmacy service has been consulted for heparin infusion dosing and monitoring. Indication(s) for Anticoagulation: Acute Coronary Syndrome (ACS) Bleeding Risk: Low (Normal) Bleeding Risk Goal PTT: 66 - 100 Laboratory Monitoring: Required minimum baseline laboratory monitoring: PT-INR, CBC, and aPTT within prior 48 hours If any of these labs have not been drawn in the 48 hours prior to the order, then the pharmacist should order STAT. Laboratory values should be obtained as soon as clinically feasible but, in a manner, to avoid delays of urgent/emergent procedures. Pharmacists verifying anticoagulation therapy orders will verify that required baseline laboratory values have been ordered. Laboratory results do not need to be resulted at the time of pharmacist verification Pharmacists may also discontinue any unneeded labs. Required minimum ongoing laboratory monitoring: aPTT 6 hours after initiation and 6 hours after each rate change Once 2 consecutive aPTTs are within goal range, then monitor aPTT daily for the duration of IV heparin therapy CBC every 3 days for the duration of therapy Recent Labs Lab Units 11/29/242055 INR 2.54* Recent Labs Lab Units 11/29/242055 HEMOGLOBIN g/dL 9.2* HEMATOCRIT % 33.3* PLATELETS K/cumm 370 Lab Results Lab Value Date/Time APTT 31 11/22/2024 1904 APTT 96 (H) 11/22/2024 0022 APTT >150 (Critical) 2024 2206 APTT 79 (H) 11/20/2024 2213 APTT 68 (H) 11/20/2024 1458 APTT 70 (H) 11/20/2024 0828 APTT 45 (H) 11/20/2024 0024 APTT 32 11/19/2024 1539 APTT 27 (L) 11/19/2024 0852 APTT 32 11/08/2024 0230 APTT 26 08/24/2024 1747 APTT 24 08/23/2024 0129 APTT 29 06/03/20242021 APTT 30 12/01/2023 0152 APTT 27 (L) 11/24/2023 0053 APTT 29 2023 0102 APTT 25 (L) 08/29/2022 1426 APTT 26 (L) 08/16/2022 1449 APTT 25 (L) 07/19/2022 2238 APTT 27.2 02/15/2014 2315 APTT 28.6 09/01/2013 1220 Assessment / Plan Initiate heparin infusion at 12 units/kg/hr (745 units/hr, using weight of 62.1 kg). Draw PTT at 2300. Pharmacy will adjust orders based on lab values. Thank you, Yuni Puentes RPh [facility] Pharmacy department UME DRAPER documented in this encounter H&P Notes * Sanjeev Gonzales MD - 12/05/2024 1:11 AM CST History and Physical Hospitalists services Date of service: Primary care provider: SUBJECTIVE HPI: This is a 59 year old female with past medical history of myopathy, T2DM, CHF, dilated cardiomyopathy, HTN, hypothyroidism, GERD, RLS, migraine, HLD, anemia, vitamin d deficiency, osteoporosis, anxiety, MDD, A-fib, chronic respiratory failure, and atrial thrombus. COPD (baseline on 3 L oxygen), BI (on cpap) transfer from [facility] to general medicine for chest pain evaluation and management. Patient recently got barostim placement on 11/18 and recently got discharge on 12/01 to rehab. Today on 12/05/2024, patient started to have midsternal chest pain. The chest pain describe as located in the middle, radiate to the back, constant, severe, 9/10, worse with deep breath, and sharp. OSH EKG without any ST elevation. Troponin 157.9. CXR showed cardiomegaly/atelectasis. She was started on heparin and baby aspirin. Case discussed with Dr. Saul. Transfer to [place] for further care. Denies fever, chill, vomiting, diarrhea, abdominal pain or dysuria. Past Medical History: Diagnosis Date Anemia Anxiety [...] with Bx HIP SURGERY Right 06/09/2024 HYSTERECTOMY 2007 Hysterectomy KYPHOPLASTY THORACIC N/A 06/09/2023 KYPHOPLASTY THORACIC N/A 08/12/2023 KYPHOPLASTY THORACIC N/A 11/24/2023 OTHER SURGICAL HISTORY 2021 cervical fusion at c56 THYROIDECTOMY 1986 Thyroidectomy US GUIDED BIOPSY LIVER N/A 07/25/2022 Medications Prior to Admission Medication Sig Dispense Refill Last Dose/Taking alendronate (FOSAMAX) 70 mg tablet Take 1 tablet (70 mg total) by mouth every 7 days Take in the morning with a full glass of water, on an empty stomach, and do not take anything else by mouth or liedown for the next 30 min. Past Week amiodarone (PACERONE) 200 mg tablet Take 1 tablet (200 mg total) by mouth daily 90 tablet 1 12/04/2024 aspirin 81 mg enteric coated tablet Take 1 tablet (81 mg total) by mouth daily 12/04/2024 atorvastatin (LIPITOR) 20 mg tablet Take 1 tablet (20 mg total) by mouth every evening 12/03/2024 buprenorphine (BUTRANS) 10 mcg/hour Place 1 patch on the skin once a week 4 patch 2 Past Week Calcium 500 + D 500 mg-5 mcg (200 unit) per tablet TAKE 1 TABLET BY MOUTH DAILY 90 tablet 0 12/04/2024 cyanocobalamin (Vitamin B-12) 1,000 mcg/mL injection Inject 1 mL (1,000 mcg total) into the muscle as instructed every 30 (thirty) days 1 mL 11 12/04/[address] (CYMBALTA) 60 mg capsule Take 1 capsule (60 mg total) by mouth daily 90 capsule 3 12/04/2024 empagliflozin (JARDIANCE) 10 mg tablet Take 1 tablet (10 mg total) by mouth daily 12/04/2024 Entresto 24-26 mg tablet Take 0.5 tablets by mouth 2 (two) times a day 90 tablet 3 12/04/2024 ergocalciferol (VITAMIN D) 50,000 unit capsule Take 1 capsule (50,000 Units total) by mouth once a week Fridays 13 capsule 3 12/04/2024 furosemide (LASIX) 40 mg tablet Take 1 tablet (40 mg total) by mouth 2 (two) times a day 12/04/2024 insulin glargine 100 unit/mL vial for injection Inject 35 Units under the skin daily 12/04/2024 insulin lispro (HumaLOG, ADMELOG) 100 unit/mL pen for injection Inject 15 Units under the skin 3 (three) times a day with meals Lispro 15 units three times daily with meals + correction 2 units for every 50 points greater than 150 mg/dl 12/04/2024 levothyroxine (SYNTHROID) 125 mcg tablet Take 1 tablet (125 mcg total) by mouth daily 90 tablet 3 12/04/2024 metoprolol tartrate (LOPRESSOR) 25 mg immediate release tablet Take 0.5 tablets (12.5 mg total) by mouth 2 (two) times a day 90 tablet 3 12/04/2024 midodrine (PROAMATINE) 10 mg tablet Take 1 tablet (10 mg total) by mouth 3 (three) times a day before meals 90 tablet 5 12/04/[address] (PROTONIX) 40 mg EC tablet Take 1 tablet (40 mg total) by mouth 2 (two) times a day12/04/2024 potassium chloride ER 20 mEq CR tablet TAKE 1 TABLET(20 MEQ) BY MOUTH DAILY 30 tablet 11 12/04/2024 pregabalin (LYRICA) 75 mg capsule Take 1 capsule (75 mg total) by mouth 2 (two) times a day 180 capsule 3 12/04/2024 rOPINIRole (REQUIP) 0.25 mg tablet Take 1 tablet (0.25 mg total) by mouth nightly 12/04/2024 acetaminophen (TYLENOL) 325 mg tablet Take 2 tablets (650 mg total) by mouth every 6 (six) hours 30tablet 11 Unknown artifi.tears,hypromellose,,PF, 0.3 % drops Administer 2 drops into affected eye(s) 3 (three) times a day as needed (dry eye) 14 mL 11 Unknown bisacodyL (DULCOLAX) 10 mg suppository Insert 1 suppository (10 mg total) into the rectum daily as needed for constipation (If no results 24 hours after milk of magnesia (may give bisacodyl tablet iftolerating PO)) Unknown bisacodyl EC (DULCOLAX EC) 5 mg EC tablet Take 2 tablets (10 mg total) by mouth daily as needed forconstipation (If no results 24 hours after milk of magnesia (may give bisacodyl supp if not tolerating PO)) 30 tablet 0 Unknown blood-glucose sensor (MyVerse G7 Sensor) device USE DIRECTED, CHANGE SENSOR EVERY 10 DAYS 9 each 3 calcium carbonate (TUMS) 500 mg (200 mg elemental calcium) chewable tablet Take 2 tablet/chew tab (1,000 mg total) by mouth 3 (three) times a day as needed for heartburn or indigestion Unknown cyclobenzaprine (FLEXERIL) 10 mg tablet Take 1 tablet (10 mg total) by mouth 3 (three) times a day as needed for muscle spasms 60 tablet 3 Unknown hydrocortisone (ANUSOL-HC) 2.5 % rectal cream INSERT RECTALLY TO THE AFFECTED AREA FOUR TIMES DAILYAS NEEDED FOR HEMORRHOIDS 30 g 2 Unknown hydrocortisone (ANUSOL-HC) 25 mg suppository Insert 1 suppository (25 mg total) into the rectum 2 (two) times a day Unknown insulin lispro (HumaLOG, ADMELOG) 100 unit/mL pen for injection Inject 7 Units under the skin 4 (four) times a day as needed (w/ snacks) Lispro 7 units Q4 hours as needed for snacks with greater than20 grams of carbohydrate. Unknown insulin lispro (HumaLOG, ADMELOG) 100 unit/mL pen for injection Inject 1-10 Units under the skin nightly Lispro bedtime correction 1 unit for every 50 points greater than 150 mg/dl Unknown metFORMIN XR (GLUCOPHAGE XR) 500 mg 24 hr tablet Take 1 tablet (500 mg total) by mouth 2 (two) times a day 2 tabs po daily (hold if nause/vomit or not feeling well). mirtazapine (REMERON RAOUL-TAB) 15 mg disintegrating tablet Take 1 tablet (15 mg total) by mouth nightly ondansetron (ZOFRAN) 4 mg tablet Take 1 tablet (4 mg total) by mouth every 8 (eight) hours as needed for nausea or vomiting 20 tablet 5 Unknown OneTouch Delica Plus Lancet 30 gauge [facility] USE 1 LANCET TO TEST BLOOD SUGAR THREE TIMES A DAY 50 each 3 oxyCODONE (ROXICODONE) 10 mg tablet Take 1 tablet (10 mg total) by mouth every 6 (six) hours as needed for pain 5 tablet 0 Unknown pen needle, diabetic (BD Tereza 2nd Gen Pen Needle) 32 gauge x 5/32 needle Use 4 times a day 400 each 3 polyethylene glycol (MIRALAX) 17 gram/dose bulk powder Take 17 g by mouth daily polyvinyl alcohol-povidone (REFRESH CLASSIC) 1.4-0.6 % dropperette Administer 2 drops into both eyes 4 (four) times a day as needed for dry eyes Unknown rizatriptan (MAXALT) 10 mg tablet Take 1 tablet (10 mg total) by mouth once as needed for migraine May repeat in 2 hours if unresolved. Do not exceed 30 mg in 24 hours. 9 tablet 11 senna-docusate (PERICOLACE) 8.6-50 mg Take 1 tablet by mouth 2 (two) times a day sodium chloride (OCEAN) 0.65 % nasal spray Administer 1 spray into each nostril every 2 (two) hoursas needed for congestion Unknown spironolactone (ALDACTONE) 25 mg tablet Take 1 tablet (25 mg total) by mouth daily 30 tablet 11 teriparatide (FORTEO) 20 mcg/dose (600mcg/2.4mL) injection Inject 0.08 mL (20 mcg total) under the skin daily on abdomen or thigh. Lie down 10 minutes after injection. 2.4 mL 11 warfarin (COUMADIN) 3 mg tablet Take 1 tablet (3 mg total) by mouth daily Unknown Allergies Allergen Reactions Amitriptyline Other (See comments) [...] and Vomiting Reaction: NAUSEA, VOMITING, suicidal thoughts Social History Tobacco Use Smoking status: Former Current packs/day: 0.00 Average packs/day: 1 pack/day for 5.0 years (5.0 ttl pk-yrs) Types: Cigarettes Start date: 1982 Quit date: 1987 Years since quittin.1 Smokeless tobacco: Never Substance and Sexual Activity Drug use: Never Sexual activity: Yes Partners: Male Comment: hysterctomy 10/2007 Alcohol Use: Not At Risk (08/23/2024) AUDIT-C Frequency of Alcohol Consumption: Never Average Number of Drinks: Patient does not drink Frequency of Binge Drinking: Never Family History Problem Relation Age of Onset [...] history of Hypertension; Thyroid cancer Neg Hx Review of Systems: 1. Constitutional Denies: weight loss, weight gain, fever, chills, night sweats 2. Eyes Denies: change in vision, double vision, eye pain, eye discharge, icterus 3. ENT Denies: change in hearing, ear pain, ear discharge, nose bleed, nasal congestion, sore throat 4. Respiratory Denies: SOB, wheezing, cough, sputum, hemoptysis 5. CV Denies: palpitations, syncope, edema, dyspnea 6. GI Denies: abdominal pain, decreased appetite, vomiting, change in bowel habitus, diarrhea, constipation, melena, BRBPR 7. Denies: dysuria, frequency, hematuria, nocturia, urgency 8. Metabolic Denies: cold intolerance, heat intolerance, polyphagia, polydipsia 9. Neurologic Denies: dizziness, seizure, change in mental status, focal weakness, focal numbness 10. Musculoskeletal Denies: myalgia, joint pain, joint redness, joint swelling, extremity pain 11. Hematologic Denies: bleeding, bruising, hematoma, lymphadenopathy, icterus 12. Skin Denies open wounds, redness, new pigmentation, new change of color OBJECTIVE Vitals: Arrival Vitals [12/04/24 1500] Temp (!) 35.6 ??C (96.1 ??F) Pulse 51 Resp 18 BP 109/75 SpO2 95 % Temp src Temporal Heart Rate Source Patient Position Sitting BP Location Right arm FiO2 (%) 24hr Min/Max: Temp Min: 35.6 ??C (96.1 ??F) Max: 36.6 ??C (97.9 ??F) Pulse Min: 51 Max: 110 BP Min: 109/75 Max: 131/62 Resp Min: 18 Max: 20 SpO2 Min: 95 % Max: 97 % Most Recent : Vitals: 12/04/244 BP: 131/62 Pulse: 79 Resp: 20 Temp: 36.6 ??C (97.9 ??F) SpO2: 96% Intake/Output Summary (Last 24 hours) at 12/05/2024 0143 Last data filed at 12/04/2024 1840 Gross per 24 hour Intake 240 ml Output -- Net 240 ml Physical exam: Eyes: EOMI, ENOCH, sclare non icteric Neck: supple, no nuchal ridigity, no gross carotid bruits appreciated ENT: No gross oral lesion, tongue midline, mucosa moist Respiratory: Lungs -CTA bilaterally, good inspiratory effort Cardiovascular: Heart sounds- [id number], no significant murmur or gallop GI: Abdomen-+BS, Non Tender, Non distended, No gross hepatomegaly Lower Ext: No gross edema, pedal artery pulses present bilaterally Neuro: good coordination, normal speech Musculoskeletal: no gross joint erythema, tenderness. Trace pitting edema Genitourinary: No New change Skin: No new change Psychiatric: Normal affect, good judgment Lab/Radiology/Diagnostic Review: Recent Results (from the past 24 hours) Troponin T high-sensitivity series (baseline, 2hr, 4hr, 6hr) Collection Time: 12/04/24 4:08 PM Result Value Ref Range Trop T hs 41 (H) <=14 ng/L Basic metabolic panel Collection Time: 12/04/24 4:12 PM Result Value Ref Range Sodium 136 135 - 145 mmol/L Potassium, pl 4.4 3.3 - 4.9 mmol/L Chloride 91 (L) 97 - 110 mmol/L CO2 29 22 - 32 mmol/L Anion gap 16 (H) 2 - 15 mmol/L BUN 20 6 - 25 mg/dL Creatinine 0.52 (L) 0.60 - 1.10 mg/dL Glucose 385 (H) 70 - 199 mg/dL Calcium 9.4 8.5 - 10.3 mg/dL Protime-INR Collection Time: 12/04/24 4:12 PM Result Value Ref Range PT 18.0 (H) 9.7 - 13.0 sec INR 1.65 (H) 0.90 - 1.20 CBC without differential Collection Time: 12/04/24 4:12 PM Result Value Ref Range WBC 14.7 (H) 3.8 - 9.9 K/cumm Hgb 8.9 (L) 11.9 - 15.5 g/dL Hct 31.6 (L) 35.6 - 45.5 % Plt 424 (H) 150 - 400 K/cumm MPV 10.4 9.1 - 12.3 fL RBC 3.80 (L) 3.90 - 5.20 M/cumm MCV 83.2 81.3 - 96.4 fL MCH 23.4 (L) 27.1 - 33.3 pg MCHC 28.2 (L) 32.3 - 35.7 g/dL RDW CV 23.0 (H) 11.1 - 14.9 % RDW SD 68.5 (H) 35.7 - 48.1 fL NRBC abs 0.04 (H) 0.00 - 0.01 K/cumm aPTT Collection Time: 12/04/24 4:12 PM Result Value Ref Range aPTT 78 (H) 28 - 38 sec eGFR Collection Time: 12/04/24 4:12 PM Result Value Ref Range eGFR >90 >=60 mL/min/1.73 m2 Troponin T high-sensitivity 2-hour Collection Time: 12/04/24 6:02 PM Result Value Ref Range Trop T hs 48 (H) <=14 ng/L Trop T hs delta 7 ng/L Trop T hs interp Equivocal Troponin T high-sensitivity 4-hour Collection Time: 12/04/24 8:32 PM Result Value Ref Range Trop T hs 48 (H) <=14 ng/L Trop T hs delta 7 ng/L Trop T hs interp Equivocal POCT glucose Collection Time: 12/04/24 9:00 PM Result Value Ref Range Glucose, POC 261 (H) 70 - 199 mg/dL Troponin T high-sensitivity 6-hour Collection Time: 12/04/24 10:12 PM Result Value Ref Range Trop T hs 48 (H) <=14 ng/L Trop T hs delta 7 ng/L Trop T hs interp Equivocal aPTT Collection Time: 12/04/24 11:06 PM Result Value Ref Range aPTT 54 (H) 28 - 38 sec XR Outside Reference Result Date: 12/01/2024 Narrative: This order has been auto-finalized and does not contain a result. XR Chest 1 View Result Date: 11/25/2024 Narrative: EXAMINATION: 1 view chest radiograph Impression: Comparison is made to radiograph dated 11/22/2024. Single lead cardiac pacer with lead overlying the right ventricle. Hypoglossal nerve stimulator with generator overlying the right chestand leads overlying the right neck. Cervical fusion [...] it. Electronically signed by: Nereyda Medeiros M.D. XR Chest 1 View Result Date: 11/22/2024 Narrative: EXAMINATION: 1 view chest radiograph Impression: Comparison is made to radiograph dated 11/09/2024. Left subclavian approach single leadcardiac pacer defibrillator with lead overlying the right [...] it. Electronically signed by: Cesar Bryan M.D. Transthoracic Echo (TTE) Limited/Followup Result Date: 11/10/2024 Narrative: [address] [address] Limited Echocardiogram Report Patient Name: AGUSTIN GOMEZ D : 1965 Study Date: 11/10/2024 9:09:45 AM Gender: F Tech: Location: [place] [address] Ref Provider: RACHEAL SAUL Height(Cm): BSA: Weight(Kg): [...] Normal structure of the aortic valve. Mitral Valve:Normal structure of the mitral valve. Pulmonic Valve: Pulmonic valve not well visualized. TricuspidValve: Trivial regurgitation in the tricuspid valve. Pericardium: [...] By: Dr Racheal Saul 11/10/2024 11:02:13 AM COSTUME DRAPER XR Chest 1 View Result Date: 11/09/2024 Narrative: EXAM DESCRIPTION: XR CHEST 1 VIEW REASON [...] Javan Mcgill M.D. KN: ANNA Report ID: [id number] Reading Location: [place] [address] Current Facility-Administered Medications Medication Dose Route Frequency Provider Last Rate Last Admin acetaminophen (TYLENOL) tablet 650 mg 650 mg oral Q6H PRN Franchesca Pierce MD 650 mg at 12/04/24 1719 amiodarone (PACERONE) tablet 200 mg 200 mg oral Daily Franchesca Pierce MD aspirin enteric coated tablet 81 mg 81 mg oral Daily Franchesca Pierce MD atorvastatin (LIPITOR) tablet 20 mg 20 mg oral Daily Franchesca Pierce MD cyclobenzaprine (FLEXERIL) tablet 10 mg 10 mg oral TID PRN Sanjeev Gonzales MD dextrose gel in packet 15 g 15 g oral Q15 Min PRN Franchesca Pierce MD Or dextrose (D10W) 10% bolus 250 mL 250 mL intravenous Q15 Min PRN Franchesca Pierce MD DULoxetine DR (CYMBALTA) extended release capsule 60 mg 60 mg oral Daily Sanjeev Gonzales MD furosemide (LASIX) tablet 40 mg 40 mg oral BID DIURETIC Sanjeev Gonzales MD glucagon injection 1 mg 1 mg intramuscular Q30 Min PRN Franchesca Pierce MD heparin in 0.45% sodium chloride 25,000 units/250 mL (100 units/mL) infusion (premix) 14 Units/kg/hr intravenous Continuous Sanjeev Gonzales MD 8.69 mL/hr at 12/05/24 0013 14 Units/kg/hr at 12/05/24 0013 insulin glargine (LANTUS, SEMGLEE) 100 unit/mL injection 35 Units 35 Units subcutaneous QAM Sampson Davenport II, MD 35 Units at 12/04/241807 insulin lispro (HumaLOG, ADMELOG) 100 unit/mL injection 0-4 Units 0-4 Units subcutaneous Nightly Sanjeev Gonzales MD 2 Units at 12/04/242216 insulin lispro (HumaLOG, ADMELOG) 100 unit/mL injection 15 Units 15 Units subcutaneous TID with meals Sampson Davenport II, MD 15 Units at 12/04/241816 insulin lispro (HumaLOG, ADMELOG) 100 unit/mL injection 7 Units 7 Units subcutaneous QID PRN Sampson Davenport II, MD levothyroxine (SYNTHROID) tablet 125 mcg 125 mcg oral Daily - 0600 Sanjeev Gonzales MD metoprolol tartrate (LOPRESSOR) immediate release tablet 12.5 mg 12.5 mg oral BID Sanjeev Gonzales MD midodrine (PROAMATINE) tablet 10 mg 10 mg oral TID AC Sanjeev Gonzales MD mirtazapine (REMERON RAOUL-TAB) disintegrating tablet 15 mg 15 mg oral Nightly Franchesca Pierce MD 15mg at 12/04/242052 nitroglycerin (NITROSTAT) sublingual tablet 0.4 mg 0.4 mg sublingual Q5 Min PRN Franchesca Pierce MD0.4 mg at 12/04/242006 ondansetron (ZOFRAN) tablet 4 mg 4 mg oral Q8H PRN Sanjeev Gonzales MD oxyCODONE (ROXICODONE) tablet 10 mg 10 mg oral Q6H PRN Sanjeev Gonzales MD 10 mg at 12/04/242339 pantoprazole DR (PROTONIX) extended release tablet 40 mg 40 mg oral Daily Franchesca Pierce MD peg [id number] (ARTIFICAL TEARS) 1-0.2-0.2 % ophthalmic solution 1 drop 1 drop each eye QID PRN Franchesca Pierce MD pregabalin (LYRICA) capsule 75 mg 75 mg oral BID Franchesca Pierce MD 75 mg at 12/04/242052 rOPINIRole (REQUIP) tablet 0.25 mg 0.25 mg oral Nightly Franchesca Pierce MD 0.25 mg at 12/04/242052 sacubitriL-valsartan (ENTRESTO) 24-26 mg tablet 0.5 tablet 0.5 tablet oral BID Sanjeev Gonzales MD senna-docusate (PERICOLACE) 8.6-50 mg per tablet 1 tablet 1 tablet oral BID Sanjeev Gonzales MD spironolactone (ALDACTONE) tablet 25 mg 25 mg oral Daily Sanjeve Gonzales MD A/P This is a 59 year old female with past medical history of myopathy, T2DM, CHF, dilated cardiomyopathy, HTN, hypothyroidism, GERD, RLS, migraine, HLD, anemia, vitamin d deficiency, osteoporosis, anxiety, MDD, A-fib, chronic respiratory failure, and atrial thrombus. COPD (baseline on 3 L oxygen), BI (on cpap) transfer from [facility] to general medicine for chest pain evaluation and management. Vital's afebrile T 36.6, HR 79 (highest 110), RR 20, BP 131/62, sat 96% on CPAP (bi). Lab's significant for troponin 41, 48 (previous 30-36). Leukocytosis 14.7, stable chronic normocytic anemia hgb 8.9 previously 9.2, PLT 424. Normal sodium, normal K 4.4, Cre 0.52. Hyperglycemia 385 Chest pain, r/o Acute Coronary Syndrome (ACS) NSTEMI Chronic combined systolic and diastolic congestive heart failure recent 11/18/24 for R carotid barostim placement Secondary to CAD Other etiologies: PE, PTX, Aortic dissection, GERD, Pneumonia, Pericarditis & myocarditis Pretest Probability of CAD: Intermediate HEART score:6 points, moderate score. MACE 12-16.6% EMILIANA UA/NSTEMI OR STEMI score: 5 points, 26% risk at 14 days OSH trop 157.9. EKG negative TTE 11/10/2024: EF 15-20%, severe systolic dysfunction, possible thrombus in lateral wall. Plan: -Admit to telemetry; monitor and storage bin tender. -repeat EKG -continue aspirin and heparin -continue home meds -Cardiology consult. -D/C all NSAIDs (except for Asprin) b/c of an increased risk of cardiovascular events. -Cardiology consulted. Hyperglycemia Type 2 diabetes mellitus with hyperlipidemia On Metformin, Forteo, and Lantus at home Glu 385 -Start sliding scale. started basal/bolus regimen in the hospital . Atrial thrombus On warfarin at home, has been held -currently on heparin Chronic respiratory failure with hypoxia On 3L O2 via NC at all times - Continue supplemental O2 -diuresis as below Atrial fibrillation - Continue home amiodarone, metoprolol Essential hypertension -cont home lasix, spironolactone, entresto -cont midodrine -goal normotension BI -continue CPAP These fluid and electrolyte abnormalities are being treated, evaluated or monitored: Fluid overload-- diurese and follow electrolytes and renal function DVT prophylaxis heparin drip Code status DNR/DNI Anticipated length of stay to be over 2 nights MDM moderate complexity Principal Problem: NSTEMI (non-ST elevated myocardial infarction) (CMS/HCC) ([facility]) Active Problems: Hyperglycemia Resolved Problems: No resolved hospital problems. Voice recognition software [employer] Direct was used dictate and transcribe this document. Pharmacists variances may occur. Despite proofreading, typographical errors may occur. Sanjeev Gonzales MD Date of Service: 12/05/2024 UME DRAPER documented in this encounter Consult Notes * Racheal Saul MD - 12/05/2024 11:43 AM CSTAssociated Order(s): IP CONSULT TO CARDIOLOGY Cardiology Consultation note Admit date: 12/04/2024 Chief Complaint: Chest pain History of Present Illness: Agustin Gomez is a 59 y.o. female who was transferred from [facility] rehab center because of rather severe constant sharp stabbing pain in the middle part of the chest. Pain started yesterday when patient was sitting. Never had this kind of pain before. It was reproducible by palpation done by the nurse. Pain was increased with taking a deep breath, coughing, sneezing, moving her body and moving her upper extremities. EKG here showed sinus tachycardia at 105 beats per minute with evidence of LVH with strain. The troponin was elevated in [place] with also an elevated initial troponin at 41. However, 3 delta troponins were equivocal indicating no acute myocardial injury. Patient co ntinued with chest pain overnight despite being on OxyContin every 6 hours. She would like to have it every 4 hours now. Past Medical History: Diagnosis Date Anemia Anxiety [...] Thyroidectomy US GUIDED BIOPSY LIVER N/A 07/25/2022 Allergies Allergen Reactions Amitriptyline Other (See comments) [...] and Vomiting Reaction: NAUSEA, VOMITING, suicidal thoughts Patient Vitals for the past 24 hrs: BP Temp Temp src Pulse Resp SpO2 Height Weight 12/05/24 0816 -- -- -- 100 -- -- -- -- 12/05/24 0738 139/85 -- Oral 56 20 97 % -- -- 12/05/24 0600 -- -- -- 105 -- -- -- -- 12/05/24 0500 -- -- -- -- -- -- -- 64.8 kg (142 lb 13.7 oz) 12/05/24 0400 -- -- -- 100 -- -- -- -- 12/05/24 0241 108/88 36.3 ??C (97.3 ??F) Temporal 78 20 95 % -- -- 12/05/24 0200 -- -- -- 100 -- -- -- -- 12/05/24 0000 -- -- -- 109 -- -- -- -- 12/04/24 2324 131/62 36.6 ??C (97.9 ??F) Temporal 79 20 96 % -- -- 12/04/242199 -- -- -- 106 -- -- -- -- 12/04/242052 -- -- -- 110 -- -- -- -- 12/04/241999 -- -- -- 116 -- -- -- -- 12/04/24 1915 121/73 36.2 ??C (97.2 ??F) Temporal 52 18 97 % -- -- 12/04/24 1600 -- -- -- 110 -- -- -- -- 12/04/24 1500 109/75 (!) 35.6 ??C (96.1 ??F) Temporal 51 18 95 % 160 cm (5' 3 ) 62.1 kg (136 lb 14.5 oz) Intake/Output Summary (Last 24 hours) at 12/05/2024 1144 Last data filed at 12/05/2024 0915 Gross per 24 hour Intake 600 ml Output 100 ml Net 500 ml Wt Readings from Last 3 Encounters: 12/05/24 64.8 kg (142 lb 13.7 oz) 11/19/24 62.1 kg (136 lb 14.5 oz) 11/17/24 62.4 kg (137 lb 9.1 oz) Cardiac Rhythm: Normal sinus rhythm (12/05/24 1000) Physical Exam: General: Patient was on the toilet quite a lot when I was trying to see her. Apparently now positive for C difficile. Nasal cannula in place. Skin: Warm and dry Head: Normocephalic, oral mucosa and conjunctivae normal Neck: Scar on the right side of the neck. Lungs: Clear to auscultation and percussion. Respirations unlabored Cardiac: Regular rate and rhythm. Right upper chest device site looks fine. Abd: Soft, nontender, BS active, no hepatosplenomegaly or masses, no abdominal bruit or enlarged aortic pulsation Extremities: 1+ bilateral lower extremity edema. Musculoskeletal: Muscle strength normal. No scoliosis. Neurologic: Oriented to person, place, and time. Mood not depressed. Family History Problem Relation Age of Onset [...] date: 1982 Quit date: 1987 Years since quittin.1 Smokeless tobacco: Never Substance and Sexual Activity Drug use: Never Sexual activity: Yes Partners: Male Comment: hysterctomy 10/2007 Alcohol Use: Not At Risk (08/23/2024) AUDIT-C Frequency of Alcohol Consumption: Never Average Number of Drinks: Patient does not drink Frequency of Binge Drinking: Never Prior to Admission medications Medication Sig Start Date End Date Taking? Authorizing Provider alendronate (FOSAMAX) 70 mg tablet Take 1 tablet (70 mg total) by mouth every 7 days Take in the morning with a full glass of water, on an empty stomach, and do not take anything else by mouth or liedown for the next 30 min. Yes Provider, MD Michael amiodarone (PACERONE) 200 mg tablet Take 1 tablet (200 mg total) by mouth daily 10/01/24 03/30/25 Yes Rajan Begum MD aspirin 81 mg enteric coated tablet Take 1 tablet (81 mg total) by mouth daily Yes Michael Holman MD atorvastatin (LIPITOR) 20 mg tablet Take 1 tablet (20 mg total) by mouth every evening Yes Michael Holman MD buprenorphine (BUTRANS) 10 mcg/hour Place 1 patch on the skin once a week 09/29/24 Yes Regino Hansen MD Calcium 500 + D 500 mg-5 mcg (200 unit) per tablet TAKE 1 TABLET BY MOUTH DAILY 10/04/24 Yes Armida Hays MD cyanocobalamin (Vitamin B-12) 1,000 mcg/mL injection Inject 1 mL (1,000 mcg total) into the muscle as instructed every 30 (thirty) days 02/27/24 Yes Armida Hays MD DULoxetine DR (CYMBALTA) 60 mg capsule Take 1 capsule (60 mg total) by mouth daily 07/03/23 Yes Armida Hays MD empagliflozin (JARDIANCE) 10 mg tablet Take 1 tablet (10 mg total) by mouth daily Yes Michael Holman MD Entresto 24-26 mg tablet Take 0.5 tablets by mouth 2 (two) times a day 11/11/24 11/11/25 Yes Jaylene Huang MD ergocalciferol (VITAMIN D) 50,000 unit capsule Take 1 capsule (50,000 Units total) by mouth once a week Fridays10/01/24 Yes Armida Hays MD furosemide (LASIX) 40 mg tablet Take 1 tablet (40 mg total) by mouth 2 (two) times a day 11/23/24 Yes Manisha Williamson NP insulin glargine 100 unit/mL vial for injection Inject 35 Units under the skin daily Yes Michael Holman MD insulin lispro (HumaLOG, ADMELOG) 100 unit/mL pen for injection Inject 15 Units under the skin 3 (three) times a day with meals Lispro 15 units three times daily with meals + correction 2 units for every 50 points greater than 150 mg/dl 11/30/24 Yes Manisha Williamson NP levothyroxine (SYNTHROID) 125 mcg tablet Take 1 tablet (125 mcg total) by mouth daily 10/01/24 Yes Armida Hays MD metoprolol tartrate (LOPRESSOR) 25 mg immediate release tablet Take 0.5 tablets (12.5 mg total) by mouth 2 (two) times a day 05/12/24 05/07/25 Yes Armida Hays MD midodrine (PROAMATINE) 10 mg tablet Take 1 tablet (10 mg total) by mouth 3 (three) times a day before meals 10/01/24 03/30/25 Yes Armida Hays MD pantoprazole DR (PROTONIX) 40 mg EC tablet Take 1 tablet (40 mg total) by mouth 2 (two) times a dayYes Michael Holman MD potassium chloride ER 20 mEq CR tablet TAKE 1 TABLET(20 MEQ) BY MOUTH DAILY 08/23/24 Yes Doni Coles MD pregabalin (LYRICA) 75 mg capsule Take 1 capsule (75 mg total) by mouth 2 (two) times a day Yes Armida Hays MD rOPINIRole (REQUIP) 0.25 mg tablet Take 1 tablet (0.25 mg total) by mouth nightly Yes Michael Holman MD acetaminophen (TYLENOL) 325 mg tablet Take 2 tablets (650 mg total) by mouth every 6 (six) hours 10/01/24 Armida Hays MD artifi.tears,hypromellose,,PF, 0.3 % drops Administer 2 drops into affected eye(s) 3 (three) times a day as needed (dry eye) 10/01/24 Armida Hays MD bisacodyL (DULCOLAX) 10 mg suppository Insert 1 suppository (10 mg total) into the rectum daily as needed for constipation (If no results 24 hours after milk of magnesia (may give bisacodyl tablet iftolerating PO)) 06/16/24 Anita Perry NP bisacodyl EC (DULCOLAX EC) 5 mg EC tablet Take 2 tablets (10 mg total) by mouth daily as needed forconstipation (If no results 24 hours after milk of magnesia (may give bisacodyl supp if not tolerating PO)) 06/16/24 Anita Perry NP blood-glucose sensor (Dexcom G7 Sensor) device USE DIRECTED, CHANGE SENSOR EVERY 10 DAYS 11/25/24Coy Patel MD calcium carbonate (TUMS) 500 mg (200 mg elemental calcium) chewable tablet Take 2 tablet/chew tab (1,000 mg total) by mouth 3 (three) times a day as needed for heartburn or indigestion 08/30/24 08/30/25 Yves Braun MD cyclobenzaprine (FLEXERIL) 10 mg tablet Take 1 tablet (10 mg total) by mouth 3 (three) times a day as needed for muscle spasms 10/01/24 Armida Hays MD hydrocortisone (ANUSOL-HC) 2.5 % rectal cream INSERT RECTALLY TO THE AFFECTED AREA FOUR TIMES DAILYAS NEEDED FOR HEMORRHOIDS 11/08/24 Armida Hays MD hydrocortisone (ANUSOL-HC) 25 mg suppository Insert 1 suppository (25 mg total) into the rectum 2 (two) times a day Provider, MD Michael insulin lispro (HumaLOG, ADMELOG) 100 unit/mL pen for injection Inject 7 Units under the skin 4 (four) times a day as needed (w/ snacks) Lispro 7 units Q4 hours as needed for snacks with greater than20 grams of carbohydrate. 11/30/24 Manisha Williamson NP insulin lispro (HumaLOG, ADMELOG) 100 unit/mL pen for injection Inject 1-10 Units under the skin nightly Lispro bedtime correction 1 unit for every 50 points greater than 150 mg/dl 11/30/24 Manisha Williamson NP metFORMIN XR (GLUCOPHAGE XR) 500 mg 24 hr tablet Take 1 tablet (500 mg total) by mouth 2 (two) times a day 2 tabs po daily (hold if nause/vomit or not feeling well). 11/30/24 Manisha Williamson NP mirtazapine (REMERON RAOUL-TAB) 15 mg disintegrating tablet Take 1 tablet (15 mg total) by mouth nightly 11/23/24 12/23/24 Manisha Williamson NP ondansetron (ZOFRAN) 4 mg tablet Take 1 tablet (4 mg total) by mouth every 8 (eight) hours as needed for nausea or vomiting 10/01/24 Armida Hays MD OneTouch Delica Plus Lancet 30 gauge misc USE 1 LANCET TO TEST BLOOD SUGAR THREE TIMES A DAY 03/23/24 Armida Hays MD oxyCODONE (ROXICODONE) 10 mg tablet Take 1 tablet (10 mg total) by mouth every 6 (six) hours as needed for pain 11/24/24 Ama Patel MD pen needle, diabetic (BD Tereza 2nd Gen Pen Needle) 32 gauge x needle Use 4 times a day 03/12/24Coy Patel MD polyethylene glycol (MIRALAX) 17 gram/dose bulk powder Take 17 g by mouth daily 11/26/24 Ines Purdy NP polyvinyl alcohol-povidone (REFRESH CLASSIC) 1.4-0.6 % dropperette Administer 2 drops into both eyes 4 (four) times a day as needed for dry eyes 11/26/24 Ines Purdy NP rizatriptan (MAXALT) 10 mg tablet Take 1 tablet (10 mg total) by mouth once as needed for migraine May repeat in 2 hours if unresolved. Do not exceed 30 mg in 24 hours. 05/06/24 Armida Hays MD senna-docusate (PERICOLACE) 8.6-50 mg Take 1 tablet by mouth 2 (two) times a day 11/26/24 Ines Purdy NP sodium chloride (OCEAN) 0.65 % nasal spray Administer 1 spray into each nostril every 2 (two) hoursas needed for congestion 08/30/24 08/30/25 Yves Braun MD spironolactone (ALDACTONE) 25 mg tablet Take 1 tablet (25 mg total) by mouth daily 09/30/24 09/30/25 Rajan Begum MD teriparatide (FORTEO) 20 mcg/dose (600mcg/2.4mL) injection Inject 0.08 mL (20 mcg total) under the skin daily on abdomen or thigh. Lie down 10 minutes after injection. 11/05/24 11/05/25 Coy Patel MD warfarin (COUMADIN) 3 mg tablet Take 1 tablet (3 mg total) by mouth daily 11/30/24 Manisha Williamson NP Recent Labs Lab Units 12/05/24 0742 12/05/24 0547 12/04/24 2100 12/04/24 16111/30/2421111/30/24 0002 SODIUM mmol/L -- 143 -- 136 -- 143 POTASSIUM PLASMA mmol/L -- 4.6 -- 4.4 -- 4.4 CHLORIDE mmol/L -- 97 -- 91* -- 101 CO2 mmol/L -- 34* -- 29 -- 36* BUN SERUM mg/dL -- 21 -- 20 -- 23 CREATININE mg/dL -- 0.51* -- 0.52* -- 0.47* [id number] mL/min/1.73 m2 -- >90 -- >90 -- >90 GLUCOSE mg/dL -- 275* -- 385* -- 171 POC GLUCOSE MONITOR mg/dL 254* -- < > -- < > -- CALCIUM mg/dL -- 9.9 -- 9.4 -- 9.1 ALBUMIN g/dL -- 4.5 -- -- -- -- < > = values in this interval not displayed. Recent Labs Lab Units 12/05/24 0547 ALK PHOS Units/L 97 BILIRUBIN TOTAL mg/dL 0.3 TOTAL PROTEIN g/dL 6.7 ALT Units/L 35 AST Units/L 16 Recent Labs Lab Units 12/05/24 0547 12/04/24161111/29/242055 WBC K/cumm 11.7* 14.7* 10.2* HEMOGLOBIN g/dL 9.5* 8.9* 9.2* HEMATOCRIT % 33.7* 31.6* 33.3* PLATELETS K/cumm 406* 424* 370 Recent Labs Lab Units 12/04/24 16111/29/24205511/28/242153 INR 1.65* 2.54* 3.05* Lab Results Component Value Date TSH 0.72 04/16/2024 T3FREE 1.7 (L) 04/16/2024 FREET4 1.49 04/16/2024 Lab Results Component Value Date CHOL 142 12/05/2024 TRIG 291 (H) 12/05/2024 HDL 37 (L) 12/05/2024 LDLCALC 59 12/05/2024 Lab Results Lab Value Date/Time TROPONINT <0.01 06/16/2020 0015 TROPONINT 0.03 (H) 06/15/2020 1821 TROPONINT <0.01 06/15/2020 1616 TROPONINT <0.01 10/09/2019 0723 Telemetry: Cardiac Rhythm: Normal sinus rhythm (12/05/24 1000) Results for orders placed or performed during the hospital encounter of 11/18/24 ECG 12 lead Collection Time: 11/19/24 10:11 PM Result Value Ref Range Ventricular Rate EKG/Min 96 BPM Atrial Rate 96 BPM AK-Interval (MSEC) 128 ms QRS-Interval (MSEC) 88 ms QT-Interval (MSEC) 406 ms QTc 512 ms P Dexter 101 degrees R Dexter -18 degrees T Dexter 48 degrees Diagnosis Sinus rhythm with Premature atrial complexes Minimal voltage criteria for LVH, may be normal variant ( R in aVL ) Borderline ECG When compared with ECG of 23-AUG-2024 04:13, No significant change was found Confirmed by JANEEN RICHARDS M.D ([id number]) on 11/22/2024 6:07:10 PM Radiology Testing: No results found. Cardiology Testing: ProBNP: Echocardiogram: Stress Test: Cardiac Cath: Impression: Rather atypical nonexertional chest pain which was reproducible, likely musculoskeletal in etiology. As discussed with Dr. Davenport on the phone, she may need lidocaine patches, etc.. No further cardiacworkup needed as she had minimal CAD by catheterization 7 months ago. Mild CAD with 20% mid circumflex stenosis on 02 July 2022 (EAS). Dyslipidemia on Lipitor 20 mg daily. LDL of 59 mg/dL on 04 December 2024. At goal of less than 70 mg/dL. Status post single-chamber ICD for severe nonischemic cardiomyopathy with Biotronik Acticor 7 VR-T DX on 15 July 2023 ([facility]). Severe nonischemic cardiomyopathy with LVEF of 15-20% on echo 10 November 2024. Status post CVRx Barostim Neo2 device implantation on 18 November 2024 ([place]). Paroxysmal atrial fibrillation, on amiodarone 200 mg daily and Coumadin. INR 1.7 on admission. History of apical thrombus on echo August 2024 and again October 2024. Already on Coumadin. Plan: Musculoskeletal chest pain control as per Dr. Davenport. Follow-up with Dr. Begum on 09 December 2024. Follow-up with Dr. Madsen on 20 December 2024. Discontinue IV heparin drip. Continue with guideline directed medications (5) for severe LV systolic dysfunction. Cardiology will sign off now. CC: Armida Hays MD Davis, Sampson Hunter II, * UME DRAPER documented in this encounter Nursing Notes * Rebeca Valenzuela RN - 12/09/2024 9:30 AM CST 0930 Assessment complete. Discussed plan of care. Questions answered. 1515 at bedside. Discussed discharge and transportation plans. Questions answered. 1530 Report called to [place] at [facility]. UME DRAPER UME DRAPER UME DRAPER * Piedad Alcantara RN - 12/04/2024 3:00 PM CST Pt received as direct admit from [facility]. Assessment and admission completed. Pt noted to have 10/10 pain, in sternal area, reproduced when touching area, no new acute pain. Received meds [facility] around 130pm. Heparin gtt dc at this time, pending labs from this facility. EKG done and Dr. Pierce here. at bedside and updated on plan. UME DRAPER documented in this encounter Miscellaneous Notes * Plan of Care - Rebeca Valenzuela RN - 12/09/2024 3:42 PM CST Problem: Isolation Lack of Knowledge Goal: Knowledge of risk factors and measures for prevention of condition will improve Outcome: Adequate for Discharge Problem: Isolation Physical Regulation Goal: Isolation- Spread of further infection will be prevented Outcome: Adequate for Discharge Goal: Isolation- Complications related to the disease process, condition, or treatment will be avoided or minimized. Outcome: Adequate for Discharge Problem: Discharge Planning Goal: Understanding discharge needs will improve Outcome: Adequate for Discharge Problem: Fall Risk Goal: Ability to state ways to decrease the risk of falls will improve Outcome: Adequate for Discharge Goal: Will remain free from falls Outcome: Adequate for Discharge Goal: Will remain free from injury from falls Outcome: Adequate for Discharge Problem: Lack of Knowledge Goal: Ability to describe self care measures that may prevent or decrease complications related to Type 1 Diabetes will improve Outcome: Adequate for Discharge Goal: Ability to describe self care measures that may prevent or decrease complications related to Type 2 Diabetes will improve Outcome: Adequate for Discharge Problem: Health Nutrition Goal: Nutritional intake and knowledge related to Diabetes will improve Outcome: Adequate for Discharge Problem: Respiratory Goal: Achieves optimal ventilation and oxygenation Outcome: Adequate for Discharge Problem: Cardiovascular Goal: Maintains optimal cardiac output and hemodynamic stability Outcome: Adequate for Discharge Goal: Absence of cardiac dysrhythmias or at baseline Outcome: Adequate for Discharge Goal: Cardiovascular status will improve Outcome: Adequate for Discharge Goals: Clinical Goals for the Shift: Remain hemodynamically stable, no chest pain, bowel function wnl, comfort/safety Assisted Patient Centered Goal for Treatment: Return to baseline level of function Summary: Adequate for discharge. UME DRAPER * Plan of Care - Christina Adorno RN - 12/09/2024 2:44 PM CST 12/09/24 1440 Discharge Summary Discharge Disposition prison facility (short term care) Specify Facility [facility] Bed Recommended Discharge Level of Care prison facility (short term care) Actual Discharge Level of Care prison facility (short term care) Does Actual Level of Care Match Care Team Recommendation? Yes Post Acute Care Plan Post Acute Care Facility Yes Referral Status Accepted Accepted Post Acute Care Location and Contact Accepted Post Acute Care Discharge Additional Assistance Does the patient need discharge transport arranged? Yes Type of Transportation Ambulance/EMS [facility] care coordination spoke to the MD and patient is accepted and can admit today . They asked tohave an estimated time patient would be there . I informed charge nurse Virginie and Rebeca BUI . UME DRAPER * Plan of Care - Christina Adorno RN - 12/09/2024 12:24 PM CST 1330 Jaret is covering for care coordination today and left me a message . Jaret said patient wouldneed to be discharged later today or tomorrow once they have more discharges and in my message I said that would be fine for us to discharge later today.I attempted to call back and had to leave a message. I am waiting on a call back again. 1314 I spoke to nurse on the 2nd floor nurses station attempting to reach someone about patient returning P [phone] and they were going to reach out to care coordination. 1224 Insurance approval was given with authorization number [id number] approved 12/09-12/15 . I had toleave a voice message with Juana P [phone] at [facility] bed also discharge is pending at this time because of blood glucose. Christina Adorno RN CM Summer Law Clerk UME DRAPER UME DRAPER * Plan of Care - Christina Adorno RN - 12/09/2024 9:08 AM CST Authorization request for [facility] bed was started 12/08 and is pending . Christina Adorno RN CM Summer Law Clerk UME DRAPER * Plan of Care - Dawn Ojeda RN - 12/09/2024 12:52 AM CST Goals: Clinical Goals for the Shift: VSS, pt chest wall pain will improve Certified Hand Therapist Patient Centered Goal for Treatment: return to baseline Summary: Patient A&0 x 4. On 2 l nc. Up and independent to bed side commode. Adequate pain control. Due medication given. Continue to monitor. Problem: Isolation Lack of Knowledge Goal: Knowledge of risk factors and measures for prevention of condition will improve Outcome: Ongoing Flowsheets (Taken 12/07/2024 0750 by Radha Sanabria, RAMYA) Knowledge of risk factors and measures for prevention of condition will improve: Discuss signs and symptoms of infection Problem: Isolation Physical Regulation Goal: Isolation- Spread of further infection will be prevented Outcome: Ongoing Flowsheets (Taken 12/08/2024414 by César Boone, RAMYA) Spread of further infection will be prevented: Implement contact precautions as indicated/ordered Goal: Isolation- Complications related to the disease process, condition, or treatment will be avoided or minimized. Outcome: Ongoing Flowsheets (Taken 12/07/2024 0750 by Radha Sanabria, RAMYA) Complications related to the disease process, condition, or treatment will be avoided or minimized:Provide emotional support Problem: Fall Risk Goal: Ability to state ways to decrease the risk of falls will improve Outcome: Ongoing Flowsheets (Taken 12/08/2024414 by César Boone, RAMYA) Ability to state ways to decrease the risk of falls will improve: Teach fall prevention measures Goal: Will remain free from falls Outcome: Ongoing Flowsheets (Taken 12/08/2024414 by César Boone, RAMYA) Will remain free from falls: Assess risk factors for falls Implement fall prevention measures Goal: Will remain free from injury from falls Outcome: Ongoing Flowsheets (Taken 12/08/2024414 by César Boone, RAMYA) Will remain free from injury from falls: Provide safe environment for conduction of activities of daily living in hospital environment UME DRAPER * Plan of Care - Arelis Suarez RN - 12/08/2024 5:23 PM CST Goals: Clinical Goals for the Shift: Patient chest wall pain to improve, patient to have adequate pain control, and safety to be maintained Summary: Patient up and independent to bed side commode. Adequate pain control. Patient blood sugars remain on the high end and addressed by Dr. Huang. Patient remains stable on room air. Problem: Isolation Lack of Knowledge Goal: Knowledge of risk factors and measures for prevention of condition will improve Outcome: Ongoing Problem: Isolation Physical Regulation Goal: Isolation- Spread of further infection will be prevented Outcome: Ongoing Goal: Isolation- Complications related to the disease process, condition, or treatment will be avoided or minimized. Outcome: Ongoing Problem: Discharge Planning Goal: Understanding discharge needs will improve Outcome: Ongoing Problem: Fall Risk Goal: Ability to state ways to decrease the risk of falls will improve Outcome: Ongoing Goal: Will remain free from falls Outcome: Ongoing Goal: Will remain free from injury from falls Outcome: Ongoing Problem: Lack of Knowledge Goal: Ability to describe self care measures that may prevent or decrease complications related to Type 1 Diabetes will improve Outcome: Ongoing Goal: Ability to describe self care measures that may prevent or decrease complications related to Type 2 Diabetes will improve Outcome: Ongoing Problem: Health Nutrition Goal: Nutritional intake and knowledge related to Diabetes will improve Outcome: Ongoing UME DRAPER * Plan of Care - Evelyne Mcneal LCSW - 12/08/2024 3:26 PM CST Received message from [facility] HOSPITAL Central Auth team stating [facility]'s computers are down so auth team will try calling back again later. UME DRAPER * Plan of Care - Evelyne Mcneal LCSW - 12/08/2024 9:28 AM CST Spoke with Megan at [facility]. Megan said they are medically able to accept pt for skilled rehab. submitted information to [facility] Auth Team to submit for insurance auth. UME DRAPER * Plan of Care - César Boone RN - 12/08/2024 4:16 AM CST Goals: Clinical Goals for the Shift: VSS, pain control, comfort/safety Summary: Pt A/Ox4, wore CPAP while sleeping. PRN medication given see MAR. Pt resting in bed with call light in reach. Pt voices no further concerns at this time. Problem: Isolation Lack of Knowledge Goal: Knowledge of risk factors and measures for prevention of condition will improve Outcome: Ongoing Problem: Isolation Physical Regulation Goal: Isolation- Spread of further infection will be prevented Outcome: Ongoing Flowsheets (Taken 12/08/2024414) Spread of further infection will be prevented: Implement contact precautions as indicated/ordered Goal: Isolation- Complications related to the disease process, condition, or treatment will be avoided or minimized. Outcome: Ongoing Problem: Discharge Planning Goal: Understanding discharge needs will improve Outcome: Ongoing Flowsheets (Taken 12/08/2024414) Understanding of discharge needs will improve: Identify discharge barriers Problem: Fall Risk Goal: Ability to state ways to decrease the risk of falls will improve Outcome: Ongoing Flowsheets (Taken 12/08/2024414) Ability to state ways to decrease the risk of falls will improve: Teach fall prevention measures Goal: Will remain free from falls Outcome: Ongoing Flowsheets (Taken 12/08/2024414) Will remain free from falls: Assess risk factors for falls Implement fall prevention measures Goal: Will remain free from injury from falls Outcome: Ongoing Flowsheets (Taken 12/08/2024414) Will remain free from injury from falls: Provide safe environment for conduction of activities of daily living in hospital environment Problem: Lack of Knowledge Goal: Ability to describe self care measures that may prevent or decrease complications related to Type 1 Diabetes will improve Outcome: Ongoing Goal: Ability to describe self care measures that may prevent or decrease complications related to Type 2 Diabetes will improve Outcome: Ongoing Flowsheets (Taken 12/08/2024414) Ability to describe self care measures that may prevent or decrease complications related to Type 2Diabetes will improve: Teach blood glucose measurement Problem: Health Nutrition Goal: Nutritional intake and knowledge related to Diabetes will improve Outcome: Ongoing UME DRAPER * Plan of Care - Radha Sanabria RN - 12/07/2024 4:52 PM CST Problem: Isolation Lack of Knowledge Goal: Knowledge of risk factors and measures for prevention of condition will improve Outcome: Ongoing Flowsheets (Taken 12/07/2024749) Knowledge of risk factors and measures for prevention of condition will improve: Discuss signs and symptoms of infection Problem: Isolation Physical Regulation Goal: Isolation- Spread of further infection will be prevented Outcome: Ongoing Flowsheets (Taken 12/07/2024749) Spread of further infection will be prevented: Implement contact precautions as indicated/ordered Goal: Isolation- Complications related to the disease process, condition, or treatment will be avoided or minimized. Outcome: Ongoing Flowsheets (Taken 12/07/2024749) Complications related to the disease process, condition, or treatment will be avoided or minimized:Provide emotional support Problem: Discharge Planning Goal: Understanding discharge needs will improve Outcome: Ongoing Flowsheets (Taken 12/07/2024749) Understanding of discharge needs will improve: Collaborate with case management interdisciplinary team Problem: Fall Risk Goal: Ability to state ways to decrease the risk of falls will improve Outcome: Ongoing Flowsheets (Taken 12/07/2024749) Ability to state ways to decrease the risk of falls will improve: Teach fall prevention measures Goal: Will remain free from falls Outcome: Ongoing Flowsheets (Taken 12/07/2024749) Will remain free from falls: Assess risk factors for falls Goal: Will remain free from injury from falls Outcome: Ongoing Flowsheets (Taken 12/07/2024749) Will remain free from injury from falls: Provide safe environment for conduction of activities of daily living in hospital environment Problem: Lack of Knowledge Goal: Ability to describe self care measures that may prevent or decrease complications related to Type 1 Diabetes will improve Outcome: Ongoing Flowsheets (Taken 12/07/2024749) Ability to describe self care measures that may prevent or decrease complications related to Type 1Diabetes will improve: Teach blood glucose measurement Goal: Ability to describe self care measures that may prevent or decrease complications related to Type 2 Diabetes will improve Outcome: Ongoing Flowsheets (Taken 12/07/2024749) Ability to describe self care measures that may prevent or decrease complications related to Type 2Diabetes will improve: Teach blood glucose measurement Problem: Health Nutrition Goal: Nutritional intake and knowledge related to Diabetes will improve Outcome: Ongoing Flowsheets (Taken 12/07/2024749) Nutritional intake and knowledge related to Diabetes will improve: Collaborate with [employer] for diabetes evaluation and/or teaching Goals: Clinical Goals for the Shift: vss, safety Summary: Vital signs stable. Patient has been safe and free of injury. UME DRAPER * Plan of Care - Evelyne Mcneal LCSW - 12/07/2024 2:53 PM CST SW called and spoke with Jaret at [facility] [phone]. Jaret cowart is waiting for a decision from their Psych Specialist as to whether they can medically accept. As soon as a decision is made, Jaret will contact this SW. UME DRAPER * Plan of Care - Evelyne Mcneal LCSW - 12/07/2024 12:27 PM CST Left message for Core Analysis Operator at [facility] [phone] regarding pt's referral and readiness for DC. [facility] is able to medically accept pt, pending insurance approval, if [facility] is unable to accept ptback. UME DRAPER UME DRAPER * Plan of Care - Evelyne Mcneal LCSW - 12/07/2024 10:52 AM CST [place] PASSR completed 12/07/24. UME DRAPER * Plan of Care - Evelyne Mcneal LCSW - 12/07/2024 8:31 AM CST [place] is queued for [place]. Pt did not have a PASSR completed when DC to [facility] but now that pt may have to DC to SNF for skilled rehab, PASSR indicated. UME DRAPER UME DRAPER * Plan of Care - Evelyne Mcneal LCSW - 12/07/2024 7:23 AM CST Sent updated PT/OT notes via [facility] to [facility] 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 difficile (12/04/24) Code Status: LIMITED Ht: 160 cm (5' 3 ) Wt: 58.7 kg (129 lb 6.6 oz) Admission Cmt: None Principal Problem: NSTEMI (non-ST elevated myocardial infarction) (CMS/HCC) ([facility]) [I21.4] Elopement Risk Date/Time Risk/Reason for Elopement User 12/04/24 1600 No risk KJK Intake/Output 12/04/24 0700 - 12/05/24 0659 12/05/24 0700 - 12/06/24 0659 12/06/24 0700 - 12/07/24 0659 Total Total 3641-2957 1034-2476 4375-5275 Total Intake (ml) 240 960 360 -- -- 360 Output (ml) 100 300 -- -- -- -- Net (ml) 140 660 360 -- -- 360 Last Weight 64.8 kg (142 lb 13.7 oz) 59.8 kg (131 lb 13.4 oz) -- -- 58.7 kg (129 lb 6.6 oz) -- Patient Lines/Drains/Airways Status Active Airway / Central venous catheter / Drain / Epidural cathether / Intraosseous line / Peripherally inserted central catheter / Peripheral intravenous line / Arterial line Name Placement date Placement time Site Days Peripheral IV 12/04/24 18 G Anterior;Proximal;Right Forearm 12/04/24 0855 Forearm 2 Active Wound Assessment Active Wound / Pressure injury / [place] / Negative Pressure Wound / Incision Wound 11/18/24 Incision Chest Right Date First Assessed 11/18/24 Site Chest Time First Assessed 0918 Days 18 Primary Wound Type: Incision Location Orientation: Right Wound 11/18/24 Incision Neck Right Date First Assessed 11/18/24 Site Neck Time First Assessed 0920 Days 18 Primary Wound Type: Incision Location Orientation: Right Wound 11/18/24 Skin Tear Thigh Right;Medial Date First Assessed 11/18/24 Site Thigh Time First Assessed 2000 Days 18 Present on Original Admission: Y 2 RN Skin Validation (comment name): Paras BUI Primary Wound Type: Skin tear Location Orientation: Right;Medial Wound 11/18/24 Skin Tear Forearm Anterior;Left;Proximal Date First Assessed 11/18/24 Site Forearm Time First Assessed 2226 Days 18 Present on Original Admission: Y 2 RN Skin Validation (comment name): Paras BUI Primary Wound Type: Skin tear Location Orientation: Anterior;Left;Proximal Massey Fall Risk Flowsheet Row Most Recent Value Prior Fall Event (Autopopulated from EMR) None found ............filed at 12/06/20242049 History of Falling 0 ............filed at 12/06/20242049 Secondary Diagnosis 15 ............filed at 12/06/20242049 Ambulatory Aids 0 ............filed at 12/06/20242049 Intravenous Therapy/Heparin/Saline Lock 20 ............filed at 12/06/20242049 Gait/Transferring 10 ............filed at 12/06/20242049 Mental Status 0 ............filed at 12/06/20242049 Massey Fall Risk Score 45 ............filed at 12/06/20242049 Vital Signs 12/06 0700 12/07 0659 12/07 0700 12/07 0714 Most Recent Temp (??C) 36 - 36.7 36.7 (98.1) 12/07 041 Pulse 56 - 115 104 12/07 0600 Resp 18 - 20 18 12/07 0410 SpO2 (%) 90 - 99 93 12/07 041 BP 103/53 - 127/84 110/73 12/07 041 MAP (mmHg) 67 - 94 83 12/07 0410 Default Flowsheet Data (most recent) Endurance Tests No documentation. Default Flowsheet Data (Last 48 Hours) Oxygen Row Name 12/07/24 0410 12/07/24 0007 12/06/24 1924 12/06/24 1507 12/06/24 1104 Oxygen Therapy/Pulse Ox O2 Therapy Supplemental oxygen Supplemental oxygen Supplemental oxygen Supplemental oxygen Supplemental oxygen O2 Del Method CPAP CPAP Nasal cannula Nasal cannula Nasal cannula O2 Flow Rate (L/min) -- -- 3 L/min 3 L/min 3 L/min SpO2 93 % 90 % 98 % 99 % 97 % Row Name 12/06/24 0745 12/06/24 0255 12/05/24 2314 12/05/24 1921 12/05/24 1511 Oxygen Therapy/Pulse Ox O2 Therapy Supplemental oxygen Supplemental oxygen Supplemental oxygen Supplemental oxygen Supplemental oxygen O2 Del Method Nasal cannula NPPV NPPV Nasal cannula -- O2 Flow Rate (L/min) 3 L/min -- -- 3 L/min -- SpO2 99 % 93 % 94 % 97 % 93 % Row Name 12/05/24 1213 12/05/24 0738 Oxygen Therapy/Pulse Ox O2 Therapy Supplemental oxygen -- SpO2 97 % 97 % Nursing Nutrition Feeding Level of Assistance 12/05 182 Able to feed self 12/05 1334 Able to feed self 12/05 914 Able to feed self 12/04 1839 Able to feed self Appetite 12/05 1820 Good 12/05 1335 Good 12/05 0915 Good 12/04 184 Good Nursing Mobility Activity 12/06 2049 Resting in bed 12/05 1999 Resting in bed 12/05 1511 Resting in bed 12/05 1343 Dangle 12/05 1334 Dangle 12/05 1213 Dangle 12/05 0915 Sleeping 12/05 0800 Commode 12/05 0737 Resting in bed 12/04 1999 Resting in bed;Commode Patient Assistance 12/05 1999 Modified independent, requires aide device or extra time 12/05 08 Modified independent, requires aide device or extra time 12/04 1999 Modified independent, requires aide device or extra time Patient Repositioned 12/06 2049 Turn self 12/06 08 Turn self 12/05 1999 Turn self 12/05 08 Turn self 12/04 1999 Turn self Bed Position 12/06 08 Semi Fowlers Range of Motion 12/06 2049 Active;All extremities 12/05 1999 Active;All extremities 12/04 1999 Active;All extremities All Meds/Most Recent Administrations nitroglycerin (NITROSTAT) sublingual tablet 0.4 mg [[id number]] Ordering Provider: Franchesca Pierce MD Status: Discontinued (Past End Date/Time) Ordered On: 12/04/24 153 Starts/Ends: 12/04/24 153 - 12/04/24 154 Ordered Dose (Remaining/Total): 0.4 mg (--/--) Route: sublingual Frequency: Every 5 min PRN Ordered Rate/Order Duration: -- / -- Admin Instructions: May administer up to 3 doses per episode. (No admins scheduled or recorded for this medication) morphine injection 2 mg [[id number]] Ordering Provider: Franchesca Pierce MD Status: Discontinued (Past End Date/Time) Ordered On: 12/04/24 153 Starts/Ends: 12/04/24 1537 - 12/04/24 1612 Ordered Dose (Remaining/Total): 2 mg (--/--) Route: intravenous Frequency: Every 3 hours PRN Ordered Rate/Order Duration: -- / 4 Minutes (No admins scheduled or recorded for this medication) nitroglycerin (NITROSTAT) sublingual tablet 0.4 mg [[id number]] Ordering Provider: Franchesca Pierce MD Status: Dispensed Ordered On: 12/04/24 1544 Start: 12/04/24 1538 Ordered Dose (Remaining/Total): 0.4 mg (3) Route: sublingual Frequency: Every 5 min PRN Ordered Rate/Order Duration: -- / -- Admin Instructions: Notify MD and obtain EKG if no relief after 3 doses or angina recurs. HOLD and notify MD if SBP less than 90 mmHg. Timestamps Action Dose Route Other Information 12/04/242006 Given 0.4 mg sublingual Performed by: Vesna Neal RN Scanned Package: 10344-331-17 aspirin enteric coated tablet 81 mg [[id number]] Ordering Provider: Franchesca Pierce MD Status: Dispensed Ordered On: 12/04/241543 Start: 12/05/24 0900 Ordered Dose (Remaining/Total): 81 mg (--/--) Route: oral Frequency: Daily Ordered Rate/Order Duration: -- / -- Admin Instructions: Do not crush, chew, cut, dissolve, open or otherwise manipulate tablet/capsule. Timestamps Action Dose Route Other Information 12/06/24756 Given 81 mg oral Performed by: Arelis Suarez RN Scanned Package: [id number] heparin 5,000 unit/mL injection 3,750 Units [[id number]] Ordering Provider: Franchesca Pierce MD Status: Discontinued (Past End Date/Time), Reason: Duplicateorder Ordered On: 12/04/241543 Starts/Ends: 12/04/241614 - 12/04/24 2344 Ordered Dose (Remaining/Total): 60 Units/kg (10/13) Route: intravenous Frequency: Once Ordered Rate/Order Duration: -- / -- Admin Instructions: Initial bolus prior to starting heparin infusion. Do not adjust initial bolus based on patient PTT. (No admins scheduled or recorded for this medication) heparin in 0.45% sodium chloride 25,000 units/250 mL (100 units/mL) infusion (premix) [[id number]] Ordering Provider: Sanjeev Gonzales MD Status: Discontinued (Past End Date/Time) Ordered On: 12/04/241543 Starts/Ends: 12/04/241614 - 12/05/24 0820 Ordered Dose (Remaining/Total): 14 Units/kg/hr (--/--) Route: intravenous Frequency: Continuous Ordered Rate/Order Duration: 8.69 mL/hr / -- Admin Instructions: WEIGHT-BASED HEPARIN INFUSION Units/kg/hr. Max initial dose: 1,000 units/hr. Timestamps Action Dose / Rate Route Other Information 12/05/24 0013 Rate/Dose Change 14 Units/kg/hr 8.69 mL/hr intravenous Performed by: Vesna Neal RN Scanned Package: 6546-9562-77 atorvastatin (LIPITOR) tablet 20 mg [[id number]] Ordering Provider: Franchesca Pierce MD Status: Dispensed Ordered On: 12/04/241547 Start: 12/04/24 163 Ordered Dose (Remaining/Total): 20 mg (--/--) Route: oral Frequency: Daily Ordered Rate/Order Duration: -- / -- Timestamps Action Dose Route Other Information 12/06/24756 Given 20 mg oral Performed by: Arelis Suarez RN Scanned Package: 68029-180-79 amiodarone (PACERONE) tablet 200 mg [[id number]] Ordering Provider: Franchesca Pierce MD Status: Dispensed Ordered On: 12/04/241547 Start: 12/04/24 163 Ordered Dose (Remaining/Total): 200 mg (--/--) Route: oral Frequency: Daily Ordered Rate/Order Duration: -- / -- Timestamps Action Dose Route Other Information 12/06/24 075 Given 200 mg oral Performed by: Arelis Suarez RN Scanned Package: 41880-105-83 metoprolol tartrate (LOPRESSOR) immediate release tablet 12.5 mg [[id number]] Ordering Provider: Franchesca Pierce MD Status: Discontinued (Past End Date/Time) Ordered On: 12/04/241547 Starts/Ends: 12/04/242099 - 12/05/24 0137 Ordered Dose (Remaining/Total): 12.5 mg (--/--) Route: oral Frequency: 2 times daily Ordered Rate/Order Duration: -- / -- Timestamps Action Dose Route Other Information 12/04/242052 Given 12.5 mg oral Performed by: Vesna Neal RN Scanned Package: 12196-979-57 levothyroxine (SYNTHROID) tablet 125 mcg [[id number]] Ordering Provider: Franchesca Pierce MD Status: Discontinued (Past End Date/Time) Ordered On: 12/04/241547 Starts/Ends: 12/05/24 0600 - 12/05/24 0137 Ordered Dose (Remaining/Total): 125 mcg (--/--) Route: oral Frequency: Daily (early AM) Ordered Rate/Order Duration: -- / -- Admin Instructions: Administer on an empty stomach, preferably 30 minutes before breakfast. Take 4 hours apart from antacids, iron and calcium products. Separate from tube feeds, if applicable. (No admins scheduled or recorded for this medication) pantoprazole DR (PROTONIX) extended release tablet 40 mg [[id number]] Ordering Provider: Franchesca Pierce MD Status: Dispensed Ordered On: 12/04/241548 Start: 12/04/24 1630 Ordered Dose (Remaining/Total): 40 mg (--/--) Route: oral Frequency: Daily Ordered Rate/Order Duration: -- / -- Admin Instructions: Do not crush, chew, cut, dissolve, open or otherwise manipulate tablet/capsule. Timestamps Action Dose Route Other Information 12/06/24 0757 Given 40 mg oral Performed by: Arelis Suarez RN Scanned Package: 40390-979-90 pregabalin (LYRICA) capsule 75 mg [[id number]] Ordering Provider: Franchesca Pierce MD Status: Dispensed Ordered On: 12/04/241548 Start: 12/04/24 2100 Ordered Dose (Remaining/Total): 75 mg (--/--) Route: oral Frequency: 2 times daily Ordered Rate/Order Duration: -- / -- Timestamps Action Dose Route Other Information 12/06/24 2050 Given 75 mg oral Performed by: Dorie Schmid RN Scanned Package: 27751-391-36 mirtazapine (REMERON RAOUL-TAB) disintegrating tablet 15 mg [[id number]] Ordering Provider: Franchesca iPerce MD Status: Dispensed Ordered On: 12/04/241548 Start: 12/04/24 2100 Ordered Dose (Remaining/Total): 15 mg (--/--) Route: oral Frequency: Nightly Ordered Rate/Order Duration: -- / -- Admin Instructions: If administering by mouth, place tablet on tongue and allow to dissolve. Timestamps Action Dose Route Other Information 12/06/242049 Given 15 mg oral Performed by: Dorie Schmid RN Scanned Package: 97127-153-34 sacubitriL-valsartan (ENTRESTO) 24-26 mg tablet 0.5 tablet [[id number]] Ordering Provider: Franchesca Pierce MD Status: Discontinued (Past End Date/Time) Ordered On: 12/04/241549 Starts/Ends: 12/04/242099 - 12/05/24135 Ordered Dose (Remaining/Total): 0.5 tablet (--/--) Route: oral Frequency: 2 times daily Ordered Rate/Order Duration: -- / -- (No admins scheduled or recorded for this medication) dextrose gel in packet 15 g [[id number]] Ordering Provider: Franchesca Pierce MD Status: Discontinued (Past End Date/Time) Ordered On: 12/04/241549 Starts/Ends: 12/04/241549 - 12/06/241804 Ordered Dose (Remaining/Total): 15 g (--/--) Route: oral Frequency: Every 15 min PRN Ordered Rate/Order Duration: -- / -- Admin Instructions: If patient is alert and able to eat/drink, give 15 gm glucose or one juice (4 fluid ounces) NOT ORANGE JUICE. After treatment for hypoglycemia, recheck BG followed by treatment every 15 minutes until the BG is greater than 100 mg/dL. Then check BG 1 hour post-treatment. If BG isless than 100 mg/dL, repeat Q15 minute BG checks and treatment. Call MD for each episode of hypoglycemia. (No admins scheduled or recorded for this medication) dextrose (D10W) 10% bolus 250 mL [[id number]] Ordering Provider: Franchecsa Pierce MD Status: Discontinued (Past End Date/Time) Ordered On: 12/04/241549 Starts/Ends: 12/04/241549 - 12/06/241804 Ordered Dose (Remaining/Total): 250 mL (--/--) Route: intravenous Frequency: Every 15 min PRN Ordered Rate/Order Duration: 1,000 mL/hr / 15 Minutes Admin Instructions: After treatment for hypoglycemia, recheck BG followed by treatment every 15 minutes until the BG is greater than 100 mg/dL. Then check BG 1 hour post treatment. If BG is less [id number] mg/dL, repeat Q15 minute BG checks and treatment. Call MD for each episode of hypoglycemia. (No admins scheduled or recorded for this medication) glucagon injection 1 mg [[id number]] Ordering Provider: Franchesca Pierce MD Status: Discontinued (Past End Date/Time) Ordered On: 12/04/241549 Starts/Ends: 12/04/241549 - 12/06/24 1805 Ordered Dose (Remaining/Total): 1 mg (--/--) Route: intramuscular Frequency: Every 30 min PRN Ordered Rate/Order Duration: -- / -- Admin Instructions: After Glucagon is administered, position [...] 1 mL SWFI. Use immediately following reconstitution. (No admins scheduled or recorded for this medication) insulin lispro (HumaLOG, ADMELOG) 100 unit/mL injection 0-5 Units [[id number]] Ordering Provider: Franchesca Pierce MD Status: Discontinued (Past End Date/Time) Ordered On: 12/04/241549 Starts/Ends: 12/04/24 1800 - 12/04/24 175 Ordered Dose (Remaining/Total): 0-5 Units (--/--) Route: subcutaneous Frequency: 3 times daily with meals Ordered Rate/Order Duration: -- / -- Admin Instructions: Blood glucose mg/dL: 149 or less: No insulin 150-199: add 1 unit 200-249: add 2 units 250-299: add 3 units 300-349: add 4 units and notify physician for adjustment of insulin orders. 350-399: add 5 units and notify physician for adjustment of insulin orders. Over 400: Notify physician for adjustment of insulin orders. Do NOT hold for NPO Status Timestamps Action Dose Route / Site Other Information 12/04/24 1720 Given 5 Units subcutaneous Left Upper Arm Performed by: Piedad Alcantara RN insulin lispro (HumaLOG, ADMELOG) 100 unit/mL injection 0-4 Units [[id number]] Ordering Provider: Franchesca Pierce MD Status: Discontinued (Past End Date/Time) Ordered On: 12/04/241549 Starts/Ends: 12/04/242099 - 12/04/241754 Ordered Dose (Remaining/Total): 0-4 Units (--/--) Route: subcutaneous Frequency: Nightly Ordered Rate/Order Duration: -- / -- Admin Instructions: Blood glucose mg/dL: 199 or less: No insulin 200-249: add 1 unit 250-299: add 2 units 300-349: add 3 units and notify physician for adjustment of insulin orders. 350- 399: add 4 units and notify physician for adjustment of insulin orders. Over 400: Notify physician for adjustment of insulin orders. Do NOT hold for NPO Status (No admins scheduled or recorded for this medication) rOPINIRole (REQUIP) tablet 0.25 mg [[id number]] Ordering Provider: Franchesca Pierce MD Status: Dispensed Ordered On: 12/04/241549 Start: 12/04/242099 Ordered Dose (Remaining/Total): 0.25 mg (--/--) Route: oral Frequency: Nightly Ordered Rate/Order Duration: -- / -- Timestamps Action Dose Route Other Information 12/06/242049 Given 0.25 mg oral Performed by: Dorie Schmid RN Scanned Package: [id number] peg [id number] (ARTIFICAL TEARS) 1-0.2-0.2 % ophthalmic solution 1 drop [[id number]] Ordering Provider: Franchesca Pierce MD Status: Verified Ordered On: 12/04/241550 Start: 12/04/241549 Ordered Dose (Remaining/Total): 1 drop (--/--) Route: each eye Frequency: 4 times daily PRN Ordered Rate/Order Duration: -- / -- (No admins scheduled or recorded for this medication) acetaminophen (TYLENOL) tablet 650 mg [[id number]] Ordering Provider: Franchesca Pierce MD Status: Dispensed Ordered On: 12/04/241610 Start: 12/04/241610 Ordered Dose (Remaining/Total): 650 mg (--/--) Route: oral Frequency: Every 6 hours PRN Ordered Rate/Order Duration: -- / -- Timestamps Action Dose Route Other Information 12/07/24 0341 Given 650 mg oral Performed by: Dorie Schmid RN Scanned Package: 72062-155-08, 80520-486-86 morphine injection 2 mg [[id number]] Ordering Provider: Franchesca Pierce MD Status: Discontinued (Past End Date/Time) Ordered On: 12/04/241611 Starts/Ends: 12/04/241610 - 12/04/242330 Ordered Dose (Remaining/Total): 2 mg (--/--) Route: intravenous Frequency: Every 3 hours PRN Ordered Rate/Order Duration: -- / 4 Minutes Timestamps Action Dose / Duration Route Other Information 12/04/242052 Given 2 mg 4 Minutes intravenous Performed by: Vesna Neal RN Scanned Package: 35941-317-93 insulin glargine (LANTUS, SEMGLEE) 100 unit/mL injection 35 Units [[id number]] Ordering Provider: Sampson Davenport II, MD Status: Dispensed Ordered On: 12/04/241754 Start: 12/04/24 183 Ordered Dose (Remaining/Total): 35 Units (--/--) Route: subcutaneous Frequency: Every morning Ordered Rate/Order Duration: -- / -- Admin Instructions: Do not mix with other insulins Timestamps Action Dose Route / Site Other Information 12/06/24 0802 Given 35 Units subcutaneous Left Lower Abdomen Performed by: Arelis Suarez RN insulin lispro (HumaLOG, ADMELOG) 100 unit/mL injection 15 Units [[id number]] Ordering Provider: Sampson Davenport II, MD Status: Discontinued (Past End Date/Time) Ordered On: 12/04/241754 Starts/Ends: 12/04/241814 - 02/24/25 1803 Ordered Dose (Remaining/Total): 15 Units (--/--) Route: subcutaneous Frequency: 3 times daily with meals Ordered Rate/Order Duration: -- / -- Admin Instructions: Administer pre-meal doses when pts food tray arrives in room. Do not administerpre-meal doses to NPO patients. Timestamps Action Dose Route / Site Other Information 12/06/24 170 Given 15 Units subcutaneous Left Lower Abdomen Performed by: Arelis Suarez RN Scanned Package: [id number] insulin lispro (HumaLOG, ADMELOG) 100 unit/mL injection 7 Units [[id number]] Ordering Provider: Sampson Davenport II, MD Status: Verified Ordered On: 12/04/241754 Start: 12/04/241754 Ordered Dose (Remaining/Total): 7 Units (--/--) Route: subcutaneous Frequency: 4 times daily PRN Ordered Rate/Order Duration: -- / -- Admin Instructions: Administer pre-meal doses when pts food tray arrives in room. Do not administerpre-meal doses to NPO patients. (No admins scheduled or recorded for this medication) insulin lispro (HumaLOG, ADMELOG) 100 unit/mL injection 0-4 Units [[id number]] Ordering Provider: Sanjeev Gonzales MD Status: Dispensed Ordered On: 12/04/242146 Start: 12/04/242229 Ordered Dose (Remaining/Total): 0-4 Units (--/--) Route: subcutaneous Frequency: Nightly Ordered Rate/Order Duration: -- / -- Admin Instructions: Blood glucose mg/dL: 199 or less: No insulin 200-249: add 1 unit 250-299: add 2 units 300-349: add 3 units and notify physician for adjustment of insulin orders. 350- 399: add 4 units and notify physician for adjustment of insulin orders. Over 400: Notify physician for adjustment of insulin orders. Do NOT hold for NPO Status Timestamps Action Dose Route / Site Other Information 12/06/242055 Given 1 Units subcutaneous Left Upper Arm Performed by: Dorie Schmid RN Scanned Package: 4384-8311-75 cyclobenzaprine (FLEXERIL) tablet 10 mg [[id number]] Ordering Provider: Sanjeev Gonzales MD Status: Dispensed Ordered On: 12/04/242330 Start: 12/04/242329 Ordered Dose (Remaining/Total): 10 mg (--/--) Route: oral Frequency: 3 times daily PRN Ordered Rate/Order Duration: -- / -- Timestamps Action Dose Route Other Information 12/07/24 0341 Given 10 mg oral Performed by: Dorie Schmid RN Scanned Package: 52443-331-64 oxyCODONE (ROXICODONE) tablet 10 mg [[id number]] Ordering Provider: Sanjeev Gonzales MD Status: Discontinued (Past End Date/Time) Ordered On: 12/04/242330 Starts/Ends: 12/04/242329 - 12/04/242330 Ordered Dose (Remaining/Total): 10 mg (--/--) Route: oral Frequency: Every 6 hours PRN Ordered Rate/Order Duration: -- / -- (No admins scheduled or recorded for this medication) oxyCODONE (ROXICODONE) tablet 10 mg [[id number]] Ordering Provider: Sanjeev Gonzales MD Status: Discontinued (Past End Date/Time) Ordered On: 12/04/242330 Starts/Ends: 12/04/242330 - 12/06/24 0759 Ordered Dose (Remaining/Total): 10 mg (--/--) Route: oral Frequency: Every 6 hours PRN Ordered Rate/Order Duration: -- / -- Timestamps Action Dose Route Other Information 12/06/24 0608 Given 10 mg oral Performed by: Vesna Neal RN Scanned Package: 16671-522-50, 07584-172-32 heparin 5,000 unit/mL injection 2,000 Units [[id number]] Ordering Provider: Sanjeev Gonzales MD Status: Completed (Past End Date/Time) Ordered On: 12/04/242342 Starts/Ends: 12/05/245 - 12/05/24 0012 Ordered Dose (Remaining/Total): 2,000 Units (0/1) Route: intravenous Frequency: Once Ordered Rate/Order Duration: -- / -- Timestamps Action Dose Route Other Information 12/05/24 0012 Given 2,000 Units intravenous Performed by: Vesna Neal RN Dual Signoff by: Zenaida Sandy RN Scanned Package: 4566-4135-[address] (CYMBALTA) extended release capsule 60 mg [[id number]] Ordering Provider: Sanjeev Gonzales MD Status: Dispensed Ordered On: 12/05/24135 Start: 12/05/24 0900 Ordered Dose (Remaining/Total): 60 mg (--/--) Route: oral Frequency: Daily Ordered Rate/Order Duration: -- / -- Admin Instructions: Capsule may be opened and contents mixed with applesauce or apple juice ONLY. Do not crush or chew capsule Timestamps Action Dose Route Other Information 12/06/24 0757 Given 60 mg oral Performed by: Arelis Suarez RN Scanned Package: 07188-502-56 furosemide (LASIX) tablet 40 mg [[id number]] Ordering Provider: Sanjeev Gonzales MD Status: Dispensed Ordered On: 12/05/24135 Start: 12/05/24 0900 Ordered Dose (Remaining/Total): 40 mg (--/--) Route: oral Frequency: 2 times daily (for diuretics) Ordered Rate/Order Duration: -- / -- Timestamps Action Dose Route Other Information 12/06/24 1552 Given 40 mg oral Performed by: Arelis Suarez RN Scanned Package: 4796-1788-53 levothyroxine (SYNTHROID) tablet 125 mcg [[id number]] Ordering Provider: Sanjeev Gonzales MD Status: Dispensed Ordered On: 12/05/24135 Start: 12/05/24 0600 Ordered Dose (Remaining/Total): 125 mcg (--/--) Route: oral Frequency: Daily (early AM) Ordered Rate/Order Duration: -- / -- Admin Instructions: Administer on an empty stomach, preferably 30 minutes before breakfast. Take 4 hours apart from antacids, iron and calcium products. Separate from tube feeds, if applicable. Timestamps Action Dose Route Other Information 12/07/24 0503 Given 125 mcg oral Performed by: Dorie Schmid RN Scanned Package: 00667-561-94 metoprolol tartrate (LOPRESSOR) immediate release tablet 12.5 mg [[id number]] Ordering Provider: Sanjeev Gonzales MD Status: Dispensed Ordered On: 12/05/24135 Start: 12/05/24 0900 Ordered Dose (Remaining/Total): 12.5 mg (--/--) Route: oral Frequency: 2 times daily Ordered Rate/Order Duration: -- / -- Timestamps Action Dose Route Other Information 12/06/242049 Given 12.5 mg oral Performed by: Dorie Schmid RN Scanned Package: 37390-842-79 midodrine (PROAMATINE) tablet 10 mg [[id number]] Ordering Provider: Sanjeev Gonzales MD Status: Dispensed Ordered On: 12/05/24135 Start: 12/05/24 0730 Ordered Dose (Remaining/Total): 10 mg (--/--) Route: oral Frequency: 3 times daily before meals Ordered Rate/Order Duration: -- / -- Timestamps Action Dose Route Other Information 12/06/24 170 Given 10 mg oral Performed by: Arelis Suarez RN Scanned Package: 92272-900-68, 68484-271-75 mirtazapine (REMERON RAOUL-TAB) disintegrating tablet 15 mg [[id number]] Ordering Provider: Sanjeev Gonzales MD Status: Discontinued (Past End Date/Time) Ordered On: 12/05/24135 Starts/Ends: 12/05/242099 - 12/05/24136 Ordered Dose (Remaining/Total): 15 mg (--/--) Route: oral Frequency: Nightly Ordered Rate/Order Duration: -- / -- Admin Instructions: If administering by mouth, place tablet on tongue and allow to dissolve. (No admins scheduled or recorded for this medication) ondansetron (ZOFRAN) tablet 4 mg [[id number]] Ordering Provider: Sanjeev Gonzales MD Status: Verified Ordered On: 12/05/24135 Start: 12/05/24133 Ordered Dose (Remaining/Total): 4 mg (--/--) Route: oral Frequency: Every 8 hours PRN Ordered Rate/Order Duration: -- / -- (No admins scheduled or recorded for this medication) pantoprazole DR (PROTONIX) extended release tablet 40 mg [[id number]] Ordering Provider: Sanjeev Gonzales MD Status: Discontinued (Past End Date/Time) Ordered On: 12/05/24135 Starts/Ends: 12/05/24214 - 12/05/24136 Ordered Dose (Remaining/Total): 40 mg (--/--) Route: oral Frequency: 2 times daily Ordered Rate/Order Duration: -- / -- Admin Instructions: Do not crush, chew, cut, dissolve, open or otherwise manipulate tablet/capsule. (No admins scheduled or recorded for this medication) pregabalin (LYRICA) capsule 75 mg [[id number]] Ordering Provider: Sanjeev Gonzales MD Status: Discontinued (Past End Date/Time) Ordered On: 12/05/24135 Starts/Ends: 12/05/24214 - 12/05/24136 Ordered Dose (Remaining/Total): 75 mg (--/--) Route: oral Frequency: 2 times daily Ordered Rate/Order Duration: -- / -- (No admins scheduled or recorded for this medication) rOPINIRole (REQUIP) tablet 0.25 mg [[id number]] Ordering Provider: Sanjeev Gonzales MD Status: Discontinued (Past End Date/Time) Ordered On: 12/05/24135 Starts/Ends: 12/05/242099 - 12/05/24136 Ordered Dose (Remaining/Total): 0.25 mg (--/--) Route: oral Frequency: Nightly Ordered Rate/Order Duration: -- / -- (No admins scheduled or recorded for this medication) senna-docusate (PERICOLACE) 8.6-50 mg per tablet 1 tablet [[id number]] Ordering Provider: Sanjeev Gonzales MD Status: Dispensed Ordered On: 12/05/24135 Start: 12/05/24 0900 Ordered Dose (Remaining/Total): 1 tablet (--/--) Route: oral Frequency: 2 times daily Ordered Rate/Order Duration: -- / -- Timestamps Action Dose Route Other Information 12/06/242049 Given 1 tablet oral Performed by: Dorie Schmid RN Scanned Package: 58809-346-16 spironolactone (ALDACTONE) tablet 25 mg [[id number]] Ordering Provider: Sanjeev Gonzales MD Status: Dispensed Ordered On: 12/05/24135 Start: 12/05/24 09 Ordered Dose (Remaining/Total): 25 mg (--/--) Route: oral Frequency: Daily Ordered Rate/Order Duration: -- / -- Timestamps Action Dose Route Other Information 12/06/24 075 Given 25 mg oral Performed by: Arelis Suarez RN Scanned Package: 33853-772-30 sacubitriL-valsartan (ENTRESTO) 24-26 mg tablet 0.5 tablet [[id number]] Ordering Provider: Sanjeev Gonzales MD Status: Dispensed Ordered On: 12/05/24135 Start: 12/05/24899 Ordered Dose (Remaining/Total): 0.5 tablet (--/--) Route: oral Frequency: 2 times daily Ordered Rate/Order Duration: -- / -- Timestamps Action Dose Route Other Information 12/06/242049 Given 0.5 tablet oral Performed by: Dorie Schmid RN Scanned Package: [id number] insulin lispro (HumaLOG, ADMELOG) 100 unit/mL injection 3 Units [[id number]] Ordering Provider: Sanjeev Gonzales MD Status: Completed (Past End Date/Time) Ordered On: 12/05/24 030 Starts/Ends: 12/05/24344 - 12/05/24310 Ordered Dose (Remaining/Total): 3 Units (0/1) Route: subcutaneous Frequency: Once Ordered Rate/Order Duration: -- / -- Timestamps Action Dose Route / Site Other Information 12/05/24310 Given 3 Units subcutaneous Left Upper Arm Performed by: Vesna Neal RN Scanned Package: 0455-1277-60 empagliflozin (JARDIANCE) tablet 10 mg [[id number]] Ordering Provider: Racheal Saul MD Status: Dispensed Ordered On: 12/05/24 0820 Start: 12/05/24 0900 Ordered Dose (Remaining/Total): 10 mg (--/--) Route: oral Frequency: Daily Ordered Rate/Order Duration: -- / -- Question Answer Comment I /authorizing provider attest that the patient meets the approved [facility] Use Criteria:: Yes -- Approving Provider: Dorys -- Timestamps Action Dose Route Other Information 12/06/24 0757 Given 10 mg oral Performed by: Arelis Suarez RN Scanned Package: 4505-4321-36 warfarin (COUMADIN) tablet 3 mg [[id number]] Ordering Provider: Sampson Davenport II, MD Status: Dispensed Ordered On: 12/05/24 1519 Start: 12/05/24 1800 Ordered Dose (Remaining/Total): 3 mg (--/--) Route: oral Frequency: Daily (for warfarin) Ordered Rate/Order Duration: -- / -- Question Answer Comment Target INR: 2 - 3 -- Timestamps Action Dose Route Other Information 12/06/24 1706 Given 3 mg oral Performed by: Arelis Suarez RN Scanned Package: 0370-8611-82 vancomycin (VANCOCIN) capsule 125 mg [[id number]] Ordering Provider: Sampson Davenport II, MD Status: Discontinued (Past End Date/Time) Ordered On: 12/05/24 1522 Starts/Ends: 12/05/24 1600 - 12/05/24 1531 Ordered Dose (Remaining/Total): 125 mg (40/40) Route: oral Frequency: Every 6 hours scheduled Ordered Rate/Order Duration: -- / -- Admin Instructions: Do not crush, chew, cut, dissolve, open or otherwise manipulate tablet/capsule. (No admins scheduled or recorded for this medication) lidocaine (LIDODERM) 5 % patch 1 patch [[id number]] Ordering Provider: Sampson Davenport II, MD Status: Discontinued (Past End Date/Time), Reason: Alternate therapy Ordered On: 12/05/24 1530 Starts/Ends: 12/05/24 1615 - 12/06/24 1244 Ordered Dose (Remaining/Total): 1 patch (--/--) Route: transdermal Frequency: Every 24 hours Ordered Rate/Order Duration: -- / 12 Hours Admin Instructions: Do not cover the holes on the top side of the patch. Question Answer Comment Apply to affected area:: chest -- Timestamps Action Dose / Duration Route / Site Other Information 12/05/24 1733 Medication Applied 1 patch 12 Hours transdermal Chest Performed by: Piedad Alcantara RN Scanned Package: 1472-4547-21 vancomycin (VANCOCIN) capsule 125 mg [[id number]] Ordering Provider: Sampson Davenport II, MD Status: Dispensed Ordered On: 12/05/24 1531 Starts/Ends: 12/05/24 1800 - 12/15/24 175 Ordered Dose (Remaining/Total): 125 mg (33/40) Route: oral Frequency: Every 6 hours scheduled Ordered Rate/Order Duration: -- / -- Admin Instructions: Do not crush, chew, cut, dissolve, open or otherwise manipulate tablet/capsule. Timestamps Action Dose Route Other Information 12/07/24 0503 Given 125 mg oral Performed by: Dorie Schmid RN Scanned Package: 45143-463-99 oxyCODONE (ROXICODONE) tablet 10 mg [[id number]] Ordering Provider: Sampson Davenport II, MD Status: Dispensed Ordered On: 12/06/24 0759 Start: 12/06/24 0759 Ordered Dose (Remaining/Total): 10 mg (--/--) Route: oral Frequency: Every 4 hours PRN Ordered Rate/Order Duration: -- / -- Timestamps Action Dose Route Other Information 12/07/24 0503 Given 10 mg oral Performed by: Dorie Schmid RN Scanned Package: 5011-0401-38, 8088-0524-81 lidocaine (LIDODERM) 5 % patch 2 patch [[id number]] Ordering Provider: Sampson Davenport II, MD Status: Dispensed Ordered On: 12/06/24 1243 Start: 12/06/24 1400 Ordered Dose (Remaining/Total): 2 patch (--/--) Route: transdermal Frequency: Every 24 hours Ordered Rate/Order Duration: -- / 12 Hours Admin Instructions: Do not cover the holes on the top side of the patch. Question Answer Comment Apply to affected area:: back -- -- chest -- Timestamps Action Dose / Duration Route / Site Other Information 12/06/24 1309 Medication Applied 2 patch 12 Hours transdermal Chest Performed by: Arelis Suarez RN Comments: and back insulin lispro (HumaLOG, ADMELOG) 100 unit/mL injection 17 Units [[id number]] Ordering Provider: Sampson Davenport II, MD Status: Verified Ordered On: 12/06/241802 Start: 12/07/24 08 Ordered Dose (Remaining/Total): 17 Units (--/--) Route: subcutaneous Frequency: 3 times daily with meals Ordered Rate/Order Duration: -- / -- Admin Instructions: Administer pre-meal doses when pts food tray arrives in room. Do not administerpre-meal doses to NPO patients. (No admins scheduled or recorded for this medication) dextrose gel in packet 15 g [[id number]] Ordering Provider: Sampson Davenport II, MD Status: Verified Ordered On: 12/06/241802 Start: 12/06/241801 Ordered Dose (Remaining/Total): 15 g (--/--) Route: oral Frequency: Every 15 min PRN Ordered Rate/Order Duration: -- / -- Admin Instructions: If patient is alert and able to eat/drink, give 15 gm glucose or one juice (4 fluid ounces) NOT ORANGE JUICE. After treatment for hypoglycemia, recheck BG followed by treatment every 15 minutes until the BG is greater than 100 mg/dL. Then check BG 1 hour post-treatment. If BG isless than 100 mg/dL, repeat Q15 minute BG checks and treatment. Call MD for each episode of hypoglycemia. (No admins scheduled or recorded for this medication) dextrose (D10W) 10% bolus 250 mL [[id number]] Ordering Provider: Sampson Davenport II, MD Status: Verified Ordered On: 12/06/241802 Start: 12/06/241801 Ordered Dose (Remaining/Total): 250 mL (--/--) Route: intravenous Frequency: Every 15 min PRN Ordered Rate/Order Duration: 1,000 mL/hr / 15 Minutes Admin Instructions: After treatment for hypoglycemia, recheck BG followed by treatment every 15 minutes until the BG is greater than 100 mg/dL. Then check BG 1 hour post treatment. If BG is less [id number] mg/dL, repeat Q15 minute BG checks and treatment. Call MD for each episode of hypoglycemia. (No admins scheduled or recorded for this medication) glucagon injection 1 mg [[id number]] Ordering Provider: Sampson Davenport II, MD Status: Verified Ordered On: 12/06/241802 Start: 12/06/241801 Ordered Dose (Remaining/Total): 1 mg (--/--) Route: intramuscular Frequency: Every 30 min PRN Ordered Rate/Order Duration: -- / -- Admin Instructions: After Glucagon is administered, position [...] 1 mL SWFI. Use immediately following reconstitution. (No admins scheduled or recorded for this medication) insulin lispro (HumaLOG, ADMELOG) 100 unit/mL injection 0-5 Units [[id number]] Ordering Provider: Sampson Davenport II, MD Status: Verified Ordered On: 12/06/241802 Start: 12/06/241844 Ordered Dose (Remaining/Total): 0-5 Units (--/--) Route: subcutaneous Frequency: 3 times daily with meals Ordered Rate/Order Duration: -- / -- Admin Instructions: Blood glucose mg/dL: 149 or less: No insulin 150-199: add 1 unit 200-249: add 2 units 250-299: add 3 units 300-349: add 4 units and notify physician for adjustment of insulin orders. 350-399: add 5 units and notify physician for adjustment of insulin orders. Over 400: Notify physician for adjustment of insulin orders. Do NOT hold for NPO Status (No admins scheduled or recorded for this medication) insulin lispro (HumaLOG, ADMELOG) 100 unit/mL injection 0-4 Units [[id number]] Ordering Provider: Sampson Davenport II, MD Status: Discontinued (Past End Date/Time) Ordered On: 12/06/241802 Starts/Ends: 12/06/242099 - 12/06/241803 Ordered Dose (Remaining/Total): 0-4 Units (--/--) Route: subcutaneous Frequency: Nightly Ordered Rate/Order Duration: -- / -- Admin Instructions: Blood glucose mg/dL: 199 or less: No insulin 200-249: add 1 unit 250-299: add 2 units 300-349: add 3 units and notify physician for adjustment of insulin orders. 350- 399: add 4 units and notify physician for adjustment of insulin orders. Over 400: Notify physician for adjustment of insulin orders. Do NOT hold for NPO Status (No admins scheduled or recorded for this medication) rizatriptan THERAPEUTIC RIDING INSTRUCTOR (MAXALT-THERAPEUTIC RIDING INSTRUCTOR) disintegrating tablet 10 mg - Obtain Medication Supply from the Patient [[id number]] Ordering Provider: Sanjeev Gonzales MD Status: Verified Ordered On: 12/07/24353 Start: 12/07/24352 Ordered Dose (Remaining/Total): 10 mg (--/--) Route: sublingual Frequency: As needed Ordered Rate/Order Duration: -- / -- Admin Instructions: May repeat dose once in 2 hours if unresolved. Do not exceed 30 mg in 24 hours. Please obtain patient's home supply of rizatriptan from the patient. PHARMACY MUST VERIFY THE MEDICATION PRIOR TO USE. This order is NOT for documentation of administration. If administering by mouth, place tablet on tongue and allow to dissolve. (No admins scheduled or recorded for this medication) OT ASSESSMENT FLOWSHEET LAST DOCUMENTED (most recent) OT Evaluation - 12/07/24 050 Pain Assessment Pain Score 6 OT TREATMENT FLOWSHEET LAST DOCUMENTED (most recent) OT Treatment - 12/07/24 050 Pain Assessment Pain Score 6 OT Notes 12/06/2024 4:34 PM Progress Notes signed by Marcelle Rankin OT OT ASSESSMENT FLOWSHEET LAST DOCUMENTED (most recent) PT Evaluation - 12/07/24502 Pain Assessment Pain Score 6 PT TREATMENT (most recent) PT Treatment - 12/07/24 050 Pain Assessment Pain Score 6 PT Notes 12/06/2024 1:38 PM Progress Notes signed by Kingston Dolan, PT INDUSTRIAL ROOFER ASSESSMENT (most recent) INDUSTRIAL ROOFER Evaluation - 12/07/24 0503 Pain Assessment Pain Score 6 INDUSTRIAL ROOFER SWALLOW STUDY (most recent) Clinical Swallow Study No documentation. INDUSTRIAL ROOFER TREATMENT (most recent) INDUSTRIAL ROOFER Treatment - 12/07/24 0503 Pain Assessment Pain Score 6 INDUSTRIAL ROOFER Notes Notes from 12/05/24 through 12/07/24 No notes of this type exist for this encounter. , Meds and Admin Active Only All Meds/Most Recent Administrations nitroglycerin (NITROSTAT) sublingual tablet 0.4 mg [[id number]] Ordering Provider: Franchesca Pierce MD Status: Dispensed Ordered On: 12/04/241543 Start: 12/04/24 1538 Ordered Dose (Remaining/Total): 0.4 mg (10/15) Route: sublingual Frequency: Every 5 min PRN Ordered Rate/Order Duration: -- / -- Admin Instructions: Notify MD and obtain EKG if no relief after 3 doses or angina recurs. HOLD and notify MD if SBP less than 90 mmHg. Timestamps Action Dose Route Other Information 12/04/242006 Given 0.4 mg sublingual Performed by: Vesna Neal RN Scanned Package: 80119-749-69 aspirin enteric coated tablet 81 mg [[id number]] Ordering Provider: Franchesca Pierce MD Status: Dispensed Ordered On: 12/04/241543 Start: 12/05/24 0900 Ordered Dose (Remaining/Total): 81 mg (--/--) Route: oral Frequency: Daily Ordered Rate/Order Duration: -- / -- Admin Instructions: Do not crush, chew, cut, dissolve, open or otherwise manipulate tablet/capsule. Timestamps Action Dose Route Other Information 12/06/24 0757 Given 81 mg oral Performed by: Arelis Suarez RN Scanned Package: 9306-9837-64 atorvastatin (LIPITOR) tablet 20 mg [[id number]] Ordering Provider: Franchesca Pierce MD Status: Dispensed Ordered On: 12/04/241547 Start: 12/04/24 1630 Ordered Dose (Remaining/Total): 20 mg (--/--) Route: oral Frequency: Daily Ordered Rate/Order Duration: -- / -- Timestamps Action Dose Route Other Information 12/06/24 0757 Given 20 mg oral Performed by: Arelis Suarez RN Scanned Package: 44164-540-18 amiodarone (PACERONE) tablet 200 mg [[id number]] Ordering Provider: Franchesca Pierce MD Status: Dispensed Ordered On: 12/04/241547 Start: 12/04/24 1630 Ordered Dose (Remaining/Total): 200 mg (--/--) Route: oral Frequency: Daily Ordered Rate/Order Duration: -- / -- Timestamps Action Dose Route Other Information 12/06/24 0757 Given 200 mg oral Performed by: Arelis Suarez RN Scanned Package: 87012-772-[address] (PROTONIX) extended release tablet 40 mg [[id number]] Ordering Provider: Franchesca Pierce MD Status: Dispensed Ordered On: 12/04/241548 Start: 12/04/24 163 Ordered Dose (Remaining/Total): 40 mg (--/--) Route: oral Frequency: Daily Ordered Rate/Order Duration: -- / -- Admin Instructions: Do not crush, chew, cut, dissolve, open or otherwise manipulate tablet/capsule. Timestamps Action Dose Route Other Information 12/06/24 075 Given 40 mg oral Performed by: Arelis Suarez RN Scanned Package: 21502-779-50 pregabalin (LYRICA) capsule 75 mg [[id number]] Ordering Provider: Franchesca Pierce MD Status: Dispensed Ordered On: 12/04/241548 Start: 12/04/24 2100 Ordered Dose (Remaining/Total): 75 mg (--/--) Route: oral Frequency: 2 times daily Ordered Rate/Order Duration: -- / -- Timestamps Action Dose Route Other Information 12/06/24 205 Given 75 mg oral Performed by: Dorie Schmid RN Scanned Package: 91284-338-47 mirtazapine (REMERON RAOUL-TAB) disintegrating tablet 15 mg [[id number]] Ordering Provider: Franchesca Pierce MD Status: Dispensed Ordered On: 12/04/241548 Start: 12/04/24 2100 Ordered Dose (Remaining/Total): 15 mg (--/--) Route: oral Frequency: Nightly Ordered Rate/Order Duration: -- / -- Admin Instructions: If administering by mouth, place tablet on tongue and allow to dissolve. Timestamps Action Dose Route Other Information 12/06/242049 Given 15 mg oral Performed by: Dorie Schmid RN Scanned Package: 06471-354-42 rOPINIRole (REQUIP) tablet 0.25 mg [[id number]] Ordering Provider: Franchesca Pierce MD Status: Dispensed Ordered On: 12/04/241549 Start: 12/04/242099 Ordered Dose (Remaining/Total): 0.25 mg (--/--) Route: oral Frequency: Nightly Ordered Rate/Order Duration: -- / -- Timestamps Action Dose Route Other Information 12/06/242049 Given 0.25 mg oral Performed by: Dorie Schmid RN Scanned Package: 17839-107-00 peg [id number]-cokfuekqzwxe-hjymtixv (ARTIFICAL TEARS) 1-0.2-0.2 % ophthalmic solution 1 drop [[id number]] Ordering Provider: Franchesca Pierce MD Status: Verified Ordered On: 12/04/241550 Start: 12/04/241549 Ordered Dose (Remaining/Total): 1 drop (--/--) Route: each eye Frequency: 4 times daily PRN Ordered Rate/Order Duration: -- / -- (No admins scheduled or recorded for this medication) acetaminophen (TYLENOL) tablet 650 mg [[id number]] Ordering Provider: Franchesca Pierce MD Status: Dispensed Ordered On: 12/04/241610 Start: 12/04/241610 Ordered Dose (Remaining/Total): 650 mg (--/--) Route: oral Frequency: Every 6 hours PRN Ordered Rate/Order Duration: -- / -- Timestamps Action Dose Route Other Information 12/07/24340 Given 650 mg oral Performed by: Dorie Schmid RN Scanned Package: 11671-009-51, 69815-030-83 insulin glargine (LANTUS, SEMGLEE) 100 unit/mL injection 35 Units [[id number]] Ordering Provider: Sampson Davenport II, MD Status: Dispensed Ordered On: 12/04/241754 Start: 12/04/241829 Ordered Dose (Remaining/Total): 35 Units (--/--) Route: subcutaneous Frequency: Every morning Ordered Rate/Order Duration: -- / -- Admin Instructions: Do not mix with other insulins Timestamps Action Dose Route / Site Other Information 12/06/24 0802 Given 35 Units subcutaneous Left Lower Abdomen Performed by: Arelis Suarez RN insulin lispro (HumaLOG, ADMELOG) 100 unit/mL injection 7 Units [[id number]] Ordering Provider: Sampson Davenport II, MD Status: Verified Ordered On: 12/04/241754 Start: 12/04/241754 Ordered Dose (Remaining/Total): 7 Units (--/--) Route: subcutaneous Frequency: 4 times daily PRN Ordered Rate/Order Duration: -- / -- Admin Instructions: Administer pre-meal doses when pts food tray arrives in room. Do not administerpre-meal doses to NPO patients. (No admins scheduled or recorded for this medication) insulin lispro (HumaLOG, ADMELOG) 100 unit/mL injection 0-4 Units [[id number]] Ordering Provider: Sanjeev Gonzales MD Status: Dispensed Ordered On: 12/04/242146 Start: 12/04/242229 Ordered Dose (Remaining/Total): 0-4 Units (--/--) Route: subcutaneous Frequency: Nightly Ordered Rate/Order Duration: -- / -- Admin Instructions: Blood glucose mg/dL: 199 or less: No insulin 200-249: add 1 unit 250-299: add 2 units 300-349: add 3 units and notify physician for adjustment of insulin orders. 350- 399: add 4 units and notify physician for adjustment of insulin orders. Over 400: Notify physician for adjustment of insulin orders. Do NOT hold for NPO Status Timestamps Action Dose Route / Site Other Information 12/06/242055 Given 1 Units subcutaneous Left Upper Arm Performed by: Dorie Schmid RN Scanned Package: [id number] cyclobenzaprine (FLEXERIL) tablet 10 mg [[id number]] Ordering Provider: Sanjeev Gonzales MD Status: Dispensed Ordered On: 12/04/242330 Start: 12/04/242329 Ordered Dose (Remaining/Total): 10 mg (--/--) Route: oral Frequency: 3 times daily PRN Ordered Rate/Order Duration: -- / -- Timestamps Action Dose Route Other Information 12/07/24 0341 Given 10 mg oral Performed by: Dorie Schmid RN Scanned Package: 55823-419-76 heparin 5,000 unit/mL injection 2,000 Units [[id number]] Ordering Provider: Sanjeev Gonzales MD Status: Completed (Past End Date/Time) Ordered On: 12/04/242342 Starts/Ends: 12/05/2414 - 12/05/2411 Ordered Dose (Remaining/Total): 2,000 Units (0/1) Route: intravenous Frequency: Once Ordered Rate/Order Duration: -- / -- Timestamps Action Dose Route Other Information 12/05/2411 Given 2,000 Units intravenous Performed by: Vesna Neal RN Dual Signoff by: Zenaida Sandy RN Scanned Package: 7911-8495-[address] (CYMBALTA) extended release capsule 60 mg [[id number]] Ordering Provider: Sanjeev Gonzales MD Status: Dispensed Ordered On: 12/05/24135 Start: 12/05/24 09 Ordered Dose (Remaining/Total): 60 mg (--/--) Route: oral Frequency: Daily Ordered Rate/Order Duration: -- / -- Admin Instructions: Capsule may be opened and contents mixed with applesauce or apple juice ONLY. Do not crush or chew capsule Timestamps Action Dose Route Other Information 12/06/24 0757 Given 60 mg oral Performed by: Arelis Suarez RN Scanned Package: 67169-654-78 furosemide (LASIX) tablet 40 mg [[id number]] Ordering Provider: Sanjeev Gonzales MD Status: Dispensed Ordered On: 12/05/24135 Start: 12/05/24 09 Ordered Dose (Remaining/Total): 40 mg (--/--) Route: oral Frequency: 2 times daily (for diuretics) Ordered Rate/Order Duration: -- / -- Timestamps Action Dose Route Other Information 12/06/24 1552 Given 40 mg oral Performed by: Arelis Suarez RN Scanned Package: 0968-2316-41 levothyroxine (SYNTHROID) tablet 125 mcg [[id number]] Ordering Provider: Sanjeev Gonzales MD Status: Dispensed Ordered On: 12/05/24135 Start: 12/05/24 0600 Ordered Dose (Remaining/Total): 125 mcg (--/--) Route: oral Frequency: Daily (early AM) Ordered Rate/Order Duration: -- / -- Admin Instructions: Administer on an empty stomach, preferably 30 minutes before breakfast. Take 4 hours apart from antacids, iron and calcium products. Separate from tube feeds, if applicable. Timestamps Action Dose Route Other Information 12/07/24 0503 Given 125 mcg oral Performed by: Dorie Schmid RN Scanned Package: 02175-522-60 metoprolol tartrate (LOPRESSOR) immediate release tablet 12.5 mg [[id number]] Ordering Provider: Sanjeev Gonzales MD Status: Dispensed Ordered On: 12/05/24135 Start: 12/05/24 09 Ordered Dose (Remaining/Total): 12.5 mg (--/--) Route: oral Frequency: 2 times daily Ordered Rate/Order Duration: -- / -- Timestamps Action Dose Route Other Information 12/06/242049 Given 12.5 mg oral Performed by: Dorie Schmid RN Scanned Package: 27614-215-20 midodrine (PROAMATINE) tablet 10 mg [[id number]] Ordering Provider: Sanjeev Gonzales MD Status: Dispensed Ordered On: 12/05/24135 Start: 12/05/24 0730 Ordered Dose (Remaining/Total): 10 mg (--/--) Route: oral Frequency: 3 times daily before meals Ordered Rate/Order Duration: -- / -- Timestamps Action Dose Route Other Information 12/06/24 1706 Given 10 mg oral Performed by: Arelis Suarez RN Scanned Package: 31338-854-17, 02566-214-26 ondansetron (ZOFRAN) tablet 4 mg [[id number]] Ordering Provider: Sanjeev Gonzales MD Status: Verified Ordered On: 12/05/24135 Start: 12/05/24133 Ordered Dose (Remaining/Total): 4 mg (--/--) Route: oral Frequency: Every 8 hours PRN Ordered Rate/Order Duration: -- / -- (No admins scheduled or recorded for this medication) senna-docusate (PERICOLACE) 8.6-50 mg per tablet 1 tablet [[id number]] Ordering Provider: Sanjeev Gonzales MD Status: Dispensed Ordered On: 12/05/24135 Start: 12/05/24899 Ordered Dose (Remaining/Total): 1 tablet (--/--) Route: oral Frequency: 2 times daily Ordered Rate/Order Duration: -- / -- Timestamps Action Dose Route Other Information 12/06/242049 Given 1 tablet oral Performed by: Dorie Schmid RN Scanned Package: 21508-360-69 spironolactone (ALDACTONE) tablet 25 mg [[id number]] Ordering Provider: Sanjeev Gonzales MD Status: Dispensed Ordered On: 12/05/24135 Start: 12/05/24899 Ordered Dose (Remaining/Total): 25 mg (--/--) Route: oral Frequency: Daily Ordered Rate/Order Duration: -- / -- Timestamps Action Dose Route Other Information 12/06/24756 Given 25 mg oral Performed by: Arelis Suarez RN Scanned Package: 54634-659-23 sacubitriL-valsartan (ENTRESTO) 24-26 mg tablet 0.5 tablet [[id number]] Ordering Provider: Sanjeev Gonzales MD Status: Dispensed Ordered On: 12/05/24135 Start: 12/05/24899 Ordered Dose (Remaining/Total): 0.5 tablet (--/--) Route: oral Frequency: 2 times daily Ordered Rate/Order Duration: -- / -- Timestamps Action Dose Route Other Information 12/06/242049 Given 0.5 tablet oral Performed by: Dorie Schmid RN Scanned Package: 3420-3543-88 insulin lispro (HumaLOG, ADMELOG) 100 unit/mL injection 3 Units [[id number]] Ordering Provider: Sanjeev Gonzales MD Status: Completed (Past End Date/Time) Ordered On: 12/05/24 0301 Starts/Ends: 12/05/24 0345 - 12/05/24 0311 Ordered Dose (Remaining/Total): 3 Units (0/1) Route: subcutaneous Frequency: Once Ordered Rate/Order Duration: -- / -- Timestamps Action Dose Route / Site Other Information 12/05/24 031 Given 3 Units subcutaneous Left Upper Arm Performed by: Vesna Neal RN Scanned Package: 1864-3560-63 empagliflozin (JARDIANCE) tablet 10 mg [[id number]] Ordering Provider: Racheal Saul MD Status: Dispensed Ordered On: 12/05/24 0820 Start: 12/05/24 0900 Ordered Dose (Remaining/Total): 10 mg (--/--) Route: oral Frequency: Daily Ordered Rate/Order Duration: -- / -- Question Answer Comment I /authorizing provider attest that the patient meets the approved [facility] Use Criteria:: Yes -- Approving Provider: Dorys -- Timestamps Action Dose Route Other Information 12/06/24 0757 Given 10 mg oral Performed by: Arelis Suarez RN Scanned Package: 5125-4111-99 warfarin (COUMADIN) tablet 3 mg [[id number]] Ordering Provider: Sampson Davenport II, MD Status: Dispensed Ordered On: 12/05/24 1519 Start: 12/05/24 1800 Ordered Dose (Remaining/Total): 3 mg (--/--) Route: oral Frequency: Daily (for warfarin) Ordered Rate/Order Duration: -- / -- Question Answer Comment Target INR: 2 - 3 -- Timestamps Action Dose Route Other Information 12/06/24 1706 Given 3 mg oral Performed by: Arelis Suarez RN Scanned Package: 7004-6910-59 vancomycin (VANCOCIN) capsule 125 mg [[id number]] Ordering Provider: Sampson Davenport II, MD Status: Dispensed Ordered On: 12/05/24 1531 Starts/Ends: 12/05/24 1800 - 12/15/24 1759 Ordered Dose (Remaining/Total): 125 mg (33/40) Route: oral Frequency: Every 6 hours scheduled Ordered Rate/Order Duration: -- / -- Admin Instructions: Do not crush, chew, cut, dissolve, open or otherwise manipulate tablet/capsule. Timestamps Action Dose Route Other Information 12/07/24 0503 Given 125 mg oral Performed by: Dorie Schmid RN Scanned Package: 70750-642-49 oxyCODONE (ROXICODONE) tablet 10 mg [[id number]] Ordering Provider: Sampson Davenport II, MD Status: Dispensed Ordered On: 12/06/24 075 Start: 12/06/24 0759 Ordered Dose (Remaining/Total): 10 mg (--/--) Route: oral Frequency: Every 4 hours PRN Ordered Rate/Order Duration: -- / -- Timestamps Action Dose Route Other Information 12/07/24 0503 Given 10 mg oral Performed by: Dorie Schmid RN Scanned Package: 8650-2168-79, 7974-4044-12 lidocaine (LIDODERM) 5 % patch 2 patch [[id number]] Ordering Provider: Sampson Davenport II, MD Status: Dispensed Ordered On: 12/06/24 1243 Start: 12/06/24 1400 Ordered Dose (Remaining/Total): 2 patch (--/--) Route: transdermal Frequency: Every 24 hours Ordered Rate/Order Duration: -- / 12 Hours Admin Instructions: Do not cover the holes on the top side of the patch. Question Answer Comment Apply to affected area:: back -- -- chest -- Timestamps Action Dose / Duration Route / Site Other Information 12/06/24 1309 Medication Applied 2 patch 12 Hours transdermal Chest Performed by: Arelis Suarez RN Comments: and back insulin lispro (HumaLOG, ADMELOG) 100 unit/mL injection 17 Units [[id number]] Ordering Provider: Sampson Davenport II, MD Status: Verified Ordered On: 12/06/24 180 Start: 12/07/24 0800 Ordered Dose (Remaining/Total): 17 Units (--/--) Route: subcutaneous Frequency: 3 times daily with meals Ordered Rate/Order Duration: -- / -- Admin Instructions: Administer pre-meal doses when pts food tray arrives in room. Do not administerpre-meal doses to NPO patients. (No admins scheduled or recorded for this medication) dextrose gel in packet 15 g [[id number]] Ordering Provider: Sampson Davenport II, MD Status: Verified Ordered On: 12/06/241802 Start: 12/06/241801 Ordered Dose (Remaining/Total): 15 g (--/--) Route: oral Frequency: Every 15 min PRN Ordered Rate/Order Duration: -- / -- Admin Instructions: If patient is alert and able to eat/drink, give 15 gm glucose or one juice (4 fluid ounces) NOT ORANGE JUICE. After treatment for hypoglycemia, recheck BG followed by treatment every 15 minutes until the BG is greater than 100 mg/dL. Then check BG 1 hour post-treatment. If BG isless than 100 mg/dL, repeat Q15 minute BG checks and treatment. Call MD for each episode of hypoglycemia. (No admins scheduled or recorded for this medication) dextrose (D10W) 10% bolus 250 mL [[id number]] Ordering Provider: Sampson Davenport II, MD Status: Verified Ordered On: 12/06/241802 Start: 12/06/241801 Ordered Dose (Remaining/Total): 250 mL (--/--) Route: intravenous Frequency: Every 15 min PRN Ordered Rate/Order Duration: 1,000 mL/hr / 15 Minutes Admin Instructions: After treatment for hypoglycemia, recheck BG followed by treatment every 15 minutes until the BG is greater than 100 mg/dL. Then check BG 1 hour post treatment. If BG is less [id number] mg/dL, repeat Q15 minute BG checks and treatment. Call MD for each episode of hypoglycemia. (No admins scheduled or recorded for this medication) glucagon injection 1 mg [[id number]] Ordering Provider: Sampson Davenport II, MD Status: Verified Ordered On: 12/06/241802 Start: 12/06/241801 Ordered Dose (Remaining/Total): 1 mg (--/--) Route: intramuscular Frequency: Every 30 min PRN Ordered Rate/Order Duration: -- / -- Admin Instructions: After Glucagon is administered, position [...] 1 mL SWFI. Use immediately following reconstitution. (No admins scheduled or recorded for this medication) insulin lispro (HumaLOG, ADMELOG) 100 unit/mL injection 0-5 Units [[id number]] Ordering Provider: Sampson Davenport II, MD Status: Verified Ordered On: 12/06/241802 Start: 12/06/241844 Ordered Dose (Remaining/Total): 0-5 Units (--/--) Route: subcutaneous Frequency: 3 times daily with meals Ordered Rate/Order Duration: -- / -- Admin Instructions: Blood glucose mg/dL: 149 or less: No insulin 150-199: add 1 unit 200-249: add 2 units 250-299: add 3 units 300-349: add 4 units and notify physician for adjustment of insulin orders. 350-399: add 5 units and notify physician for adjustment of insulin orders. Over 400: Notify physician for adjustment of insulin orders. Do NOT hold for NPO Status (No admins scheduled or recorded for this medication) rizatriptan THERAPEUTIC RIDING INSTRUCTOR (MAXALT-THERAPEUTIC RIDING INSTRUCTOR) disintegrating tablet 10 mg - Obtain Medication Supply from the Patient [[id number]] Ordering Provider: Sanjeev Gonzales MD Status: Verified Ordered On: 12/07/24 0354 Start: 12/07/24 035 Ordered Dose (Remaining/Total): 10 mg (--/--) Route: sublingual Frequency: As needed Ordered Rate/Order Duration: -- / -- Admin Instructions: May repeat dose once in 2 hours if unresolved. Do not exceed 30 mg in 24 hours. Please obtain patient's home supply of rizatriptan from the patient. PHARMACY MUST VERIFY THE MEDICATION PRIOR TO USE. This order is NOT for documentation of administration. If administering by mouth, place tablet on tongue and allow to dissolve. (No admins scheduled or recorded for this medication) [employer] * [facility] Note - Evelyne Mcneal LCSW - 12/07/2024 7:13 AM CST Images from the original note were not included. Patient Information: OT Eval and Treat Last 72 Hours OT Evaluation Row Name 12/06/24 1030 Chart Reviewed Yes -CF Session Type Evaluation -CF OT Received On 12/06/24 -CF Safe Environment Arm band checked;Patient found in supine -CF Subjective Agreeable to Therapy -CF Subjective Comment Patient states her transfers are pretty good. She was at a rehab facility in [place] and plans to go to her daughters house after she leaves there. -CF Family/Caregiver Present No -CF Precautions Cardiac -CF Type of Home House -CF Home Layout One level -CF Home Access Ramped entrance -CF Bathroom Shower/Tub Walk-in shower with threshold -CF Bathroom Toilet Standard -CF Bathroom Equipment Shower chair;Grab bars in shower/tub;Toilet raiser;Commode -CF Bathroom Accessibility Accessible via wheelchair -CF Home Mobility Equipment-Available Wheeled walker;4-Wheeled walker;Single point cane;Wheelchair-manual -CF Home Mobility Equipment-Currently Using Wheelchair-manual -CF Level of Brooke Independent functional transfers;Needs assistance with ADLs;Needs assistance with ambulation;Dependent with homemaking -CF Lives With Spouse;Daughter -CF Receives Help From Spouse/Significant other;Family -CF Driving No -CF Fall within the last 6 months Yes -CF Grooming: Where assessed Edge of bed -CF Grooming: Level of assistance Independent -CF Grooming: Assistance with Wash/dry hands -CF Toileting: Where assessed Bedside Commode -CF Toileting: Level of assistance Standby Assist -CF Pain Assessment 0-10 -CF Pain Score 9 -CF Pain Location Chest -CF Overall Cognitive Status WFL -CF Orientation Oriented X4 (person, place, time, situation) -CF Compliance/Behavior Easy to engage -CF Numbness/Tingling Yes lower back and left leg -CF Serial Opposition WFL -CF Static Sitting-Balance Support Bilateral upper extremity supported -CF Static Sitting-Sitting Surface Bed -CF Static Sitting-Level of Assistance Independent -CF Static Standing-Balance Support Bilateral upper extremity supported -CF Static Standing-Standing Surface Floor -CF Static Standing-Level of Assistance Contact guard;Close supervision -CF Bed Mobility From 1 Supine -CF Bed Mobility Type 1 To and from -CF Bed Mobility to 1 Edge of bed -CF Level of Assistance 1 Independent -CF Transfer From 1 Bed -CF Transfer Type 1 To and from -CF Transfer to 1 Commode-standard -CF Technique 1 Sit to stand;Stand to sit -CF Transfer Level of Assistance 1 Standby Assist -CF RUE Assessment X -CF RUE Comments generalized weakness -CF LUE Assessment X -CF LUE Comments generalized weakness -CF OT Treatment/Exercise Comments Patient did well but was easily fatigued. She has low endurance and increased pain. She also reports weakness in her legs and states her knees buckle. -CF Putting on and taking off regular lower body clothing 3 -CF Bathing 2 -CF Toileting 3 -CF Putting on and taking off upper body clothing 2 -CF Personal Grooming 3 -CF Eating Meals 4 -CF Total Score (range 6-24) 17 -CF Safe Environment End of Therapy Session Patient left supine in bed;Call light within reach;Overbed table within reach -CF Prognosis Good -CF Problem List Decreased upper extremity range of motion;Decreased upper extremity strength;Decreasedendurance;Decreased functional mobility;Decreased ADL independence;Decreased IADL independence -CF Barriers to Discharge None -CF Plan If this is the last note, consider this the discharge summary -CF OT Recommendation [facility] re[facility] -CF Recommend SNF due to Unable to safely care for self in the home;Skilled therapy needed to address care for self in the home;Skilled therapy needed to address functional deficits;Skilled therapy needed for patient to return to prior level of independence -CF Patient at high risk for Injury due to decreased ability to care for self;Injury at home as patienthas not returned to prior level of function -CF OT Frequency during current admission 2-3x/wk -CF Treatment/Interventions during current admission ADL/IADL retraining;Balance Training;Endurance training;Functional transfer training -CF OT Evaluation Complete Yes -CF OT Start Time 1030 -CF OT Stop Time 1049 -CF OT Time Calculation (min) 19 min -CF User Marrero (r) = Recorded By, (t) = Taken By, (c) = Cosigned By Initials Name Effective Dates CF Marcelle Rankin OT 07/11/23 - OT Treatment No documentation. OT Notes 12/06/2024 4:34 PM Progress Notes signed by Marcelle Rankin, OT , PT Eval and Treat Last 72 Hours PT Evaluation Row Name 12/06/24 1314 Chart Reviewed Yes -JL Session Type Evaluation -JL Safe Environment Arm band checked;Patient found sitting at edge of bed;Session completed bedside;Gait belt utilized for all out of bed mobility -JL Subjective Agreeable to Therapy -JL Additional Pertinent History early Nov had barostem procedure at [place] - Family/Caregiver Present No -JL Physical Therapy-Patient Goal to go to [facility] swing bed -JL Precautions Cardiac -JL Type of Home House -JL Home Layout One level -JL Home Access Ramped entrance -JL Home Mobility Equipment-Available Wheelchair-manual;Wheeled walker;Rollator -JL Home Mobility Equipment-Currently Using Wheelchair-manual -JL Level of Brooke Needs assistance with ADLs;Independent functional transfers -JL Lives With Spouse;Daughter -JL Receives Help From Spouse/Significant other;Family -JL Driving No -JL Fall within the last 6 months Yes -JL Fall within the last 6 months comment fell, nothing broken -JL Prior Function Comments did have a fall and broke right hip 06/09/24 had ORIF -JL Pain Assessment 0-10 -JL Pain Score 8 -JL Pain Type Chronic pain -JL Pain Location Chest chest wall -JL Orientation Oriented X4 (person, place, time, situation) -JL Balance Yes -JL Static Sitting-Balance Support Bilateral upper extremity supported;Feet unsupported -JL Static Sitting-Sitting Surface Bed -JL Static Sitting-Level of Assistance Independent -JL Static Standing-Balance Support Bilateral upper extremity supported -JL Static Standing-Standing Surface Floor -JL Static Standing-Level of Assistance Minimum assistance;Moderate assistance -JL Bed Mobility Comments 1 NT -JL Transfer From 1 Bed;Sit -JL Transfer Type 1 To and from -JL Transfer to 1 Chair with arms -JL Technique 1 Sit to stand;Stand to sit -JL Transfer Device 1 Hand held assist -JL Transfer Level of Assistance 1 Moderate Assist -JL Trials/Comments 1 2-3 steps with therapist to bedside chair and back to bed -JL Distance (ft) 1 2-3 steps -JL Surface 1 Level tile -JL Device 1 Hand held assist -JL Assistance 1 Moderate Assist -JL Quality of Gait 1 dec; balance, shuffle gt, flexed trunk -JL Ambulation Comments 1 fall risk -JL RLE Assessment X arom wfl, gross strength 3>3-/5 -JL LLE Assessment X arom wfl, gross strength 3>3-/5 -JL How much difficulty does the patient have: Turning over in bed 3 -JL How much difficulty does the patient currently have: Sitting down and standing up from a chair witharms? 2 -JL How much difficulty does the patient have: Moving from lying on back to sitting on the side of the bed? 2 -JL How much difficulty does the patient have: Moving to and from a bed to a chair including wheelchair? 2 -JL How much help does the patient currently need: Walk in hospital room? 2 -JL How much help from another person does the patient currently need: Climbing 3-5 steps with a railing? 2 -JL Total 6 Click Score (range 6-24) 13 -JL Score Interpretation 33.99 -JL Safe Environment End of Therapy Session Patient left sitting at edge of bed;RN notified;Call light within reach;Overbed table within reach -JL Prognosis Good -JL Problem List Reduced mobility;Debility;Gait deviations;Decreased strength;Decreased endurance;Impaired balance;Pain -JL Barriers to Discharge Current Mobility Status -JL Plan Plan of care initiated;If this is the last note, consider this the discharge summary -JL PT Recommendation/Plan [facility] Facility;Other pt wants to go to swing bed in [place] -JL Recommend SNF due to Risk of injury at home;Unable to safely care for self in the home;Skilled therapy needed to address care for self in the home;Skilled therapy needed to address functional deficits;Skilled therapy needed for patient to return to prior level of independence -JL Patient at high risk for Falls;Readmission;Injury due to decreased ability to care for self;Injury due to reduced functional status;Injury due to balance deficits;Injury at home as patient has not returned to prior level of function -JL PT Frequency during current admission Daily -JL Treatment/Interventions during current admission Bed mobility;Functional transfer training;Gait training;Therapeutic exercise -JL PT Equipment Recommended Other (Comment) defer to rehab -JL PT Evaluation Complete Yes -JL PT Start Time 1314 -JL PT Stop Time 1338 -JL PT Time Calculation (min) 24 min -JL User Marrero (r) = Recorded By, (t) = Taken By, (c) = Cosigned By Initials Name Effective Dates JL Kingston Dolan, PT 07/05/19 - PT TREATMENT (Last 168 Hours) PT Treatment No documentation. PT Notes 12/06/2024 1:38 PM Progress Notes signed by Kingston Dolan, PT [employer]ME [employer] * Plan of Care - Vo, Dorie Tubbs RN - 12/07/2024 4:28 AM CST Problem: Isolation Lack of Knowledge Goal: Knowledge of risk factors and measures for prevention of condition will improve Outcome: Ongoing Flowsheets (Taken 12/07/2024426) Knowledge of risk factors and measures for prevention of condition will improve: Discuss infection prevention measures Problem: Isolation Physical Regulation Goal: Isolation- Spread of further infection will be prevented Outcome: Ongoing Flowsheets (Taken 12/07/2024426) Spread of further infection will be prevented: Implement contact precautions as indicated/ordered Goal: Isolation- Complications related to the disease process, condition, or treatment will be avoided or minimized. Outcome: Ongoing Flowsheets (Taken 12/07/2024426) Complications related to the disease process, condition, or treatment will be avoided or minimized:Implement safety precautions Problem: Discharge Planning Goal: Understanding discharge needs will improve Outcome: Ongoing Flowsheets (Taken 12/07/2024426) Understanding of discharge needs will improve: Identify discharge barriers Problem: Fall Risk Goal: Ability to state ways to decrease the risk of falls will improve Outcome: Ongoing Flowsheets (Taken 12/07/2024426) Ability to state ways to decrease the risk of falls will improve: Teach fall prevention measures Goal: Will remain free from falls Outcome: Ongoing Flowsheets (Taken 12/07/2024426) Will remain free from falls: Assess risk factors for falls Implement fall prevention measures Goal: Will remain free from injury from falls Outcome: Ongoing Flowsheets (Taken 12/07/2024426) Will remain free from injury from falls: Provide safe environment for conduction of activities of daily living in hospital environment Problem: Lack of Knowledge Goal: Ability to describe self care measures that may prevent or decrease complications related to Type 2 Diabetes will improve Outcome: Ongoing Flowsheets (Taken 12/07/2024 0427) Ability to describe self care measures that may prevent or decrease complications related to Type 2Diabetes will improve: Teach/demonstrate insulin injections Teach blood glucose measurement Problem: Health Nutrition Goal: Nutritional intake and knowledge related to Diabetes will improve Outcome: Ongoing Flowsheets (Taken 12/07/2024 0427) Nutritional intake and knowledge related to Diabetes will improve: Instruct on counting carbohydrates Goals: Clinical Goals for the Shift: VSS, safety, comfort UME DRAPER * Plan of Care - Arelis Suarez RN - 12/06/2024 4:18 PM CST Goals: Clinical Goals for the Shift: Patient chest wall pain to improve, patient to have adequate pain control, and safety to be maintained Summary: Patient surgical incision to R chest remains reddened but clean and dry. Patient up to bedside commode independently. Adequate pain control this shift. Patient remains free from any cardiacsymptoms. Problem: Isolation Lack of Knowledge Goal: Knowledge of risk factors and measures for prevention of condition will improve Outcome: Ongoing Problem: Isolation Physical Regulation Goal: Isolation- Spread of further infection will be prevented Outcome: Ongoing Goal: Isolation- Complications related to the disease process, condition, or treatment will be avoided or minimized. Outcome: Ongoing Problem: Discharge Planning Goal: Understanding discharge needs will improve Outcome: Ongoing Problem: Fall Risk Goal: Ability to state ways to decrease the risk of falls will improve Outcome: Ongoing Goal: Will remain free from falls Outcome: Ongoing Goal: Will remain free from injury from falls Outcome: Ongoing Problem: Lack of Knowledge Goal: Ability to describe self care measures that may prevent or decrease complications related to Type 1 Diabetes will improve Outcome: Ongoing Goal: Ability to describe self care measures that may prevent or decrease complications related to Type 2 Diabetes will improve Outcome: Ongoing Problem: Health Nutrition Goal: Nutritional intake and knowledge related to Diabetes will improve Outcome: Ongoing UME DRAPER * Plan of Care - Evelyne Mcneal LCSW - 12/06/2024 12:45 PM CST Received call from pt's daughter, Ana, stating that if [facility] does not have abed available for pt at [place], their second choice is [facility]. Referral sent via [facility]Port to [facility] as a backup. UME DRAPER * Initial Assessments - Evelyne Mcneal LCSW - 12/06/2024 8:44 AM COSTUME DRAPER CM Initial Assessment Interview Note Information Obtained From: Patient (12/06/24841) Admission Source: Emergency Dept from [facility] Impression: Sternal/Chest Pain. Plan Includes: Assessment & Discharge Planning. Primary Source of Transportation: Does the patient need discharge transport arranged?: No (12/06/24841) Health Insurance Coverage: [facility] Choice Plus Commercial; Medicare A/B Prescription Coverage: Yes Pharmacy: [id number] [address] [address] [id number] - [place] [address] [place] [address] [place] [phone] [facility]IV[facility] - [facility] [address] [facility] 46[address] [facility] [address] [facility] 16[address] [facility] [address] [place] [id number] Primary Care Provider: Armida Hays MD Prior to Admission: Functional Status: Moderate assist with ADLs Primary Caregiver: Facility staff Support System: Spouse/Significant Other, Children, Family members, Friends/neighbors, Gnosticism/[employer] Home Care Services: No Outpatient Services: No Durable Medical Equipment: CPAP/Bi-PAP, Wheelchair ramp, Wheelchair, Walker (wheeled), Oxygen Oxygen Detail: 3L O2 nocturnal and cpap. [facility] D[facility] DME Name and Contact Number: [facility] Living Arrangements: Spouse/significant other Type of Residence: Private residence Steps in home?: Yes, Outside of home Number of steps outside: 5 steps (but has ramp) Medication management: Independent (12/06/24841) SDOH: Transportation: In the past 12 months, has lack of transportation kept you from medical appointments or from getting medications?: No In the past 12 months, has lack of transportation kept you from meetings, work, or from getting things needed for daily living?: No (12/06/24840) Financial Resource: How hard is it for you to pay for the very basics like food, housing, medical care, and heating?: Not hard at all (12/06/24840) Housing: In the last 12 months, was there a time when you were not able to pay the mortgage or rent on time?: No In the past 12 months, how many times have you moved where you were living?: 0 At any time in the past 12 months, were you homeless or living in a fpc (including now)?: No (12/06/24841) Utilities: No, (12/06/24840) Social Connections: In a typical week, how many times do you talk on the phone with family, friends, or neighbors?: More than three times a week How often do you get together with friends or relatives?: More than three times a week How often do you attend mormon or adventism services?: More than 4 times per year Do you belong to any clubs or organizations such as mormon groups, unions, fraternal or athletic groups, or school groups?: No How often do you attend meetings of the clubs or organizations you belong to?: Never Are you , , , , never , or living with a partner?: (12/06/24840) Food Insecurity: Within the past 12 months, you worried that your food would run out before you got the money to buymore.: Never true Within the past 12 months, the food you bought just didn't last and you didn't have money to get more.: Never true (12/06/24840) Alcohol Use: PHQ Screening Potential discharge needs include: Home Health: None (12/06/24841) OP Services: Dialysis: None Behavioral Health Services: Behavioral Health Services: No (12/06/24841) Anticipated Level of Care: Anticipated discharge level of care: Other (Comment) ([facility]) Pt/Family agrees with Anticipated Level of Care: Yes (12/06/24841) Patient expects to be Discharged to: Other (Comment) ([facility]), (12/06/24841) Additional Information: Pt resides with her and sometimes spends time at her daughter's home. Pt was receiving skilled rehab at [facility] prior to admission and would like to return for skilled rehab at [place]. Patient's Identified Problem/Goal Problem: Ensure acute medical [...] Collaboration with Patient, Provider, Direct Care Nurse, Suit Attendant, and other members of theHealth Care Team to assure needed interventions completed. 2. Return patient to optimal level of self-care post discharge. 3. Neighborhood Aide will follow for Discharge Planning - interventions as needed 4. Anticipated level of care at discharge 5. Planned Discharge Disposition Evelyne Mcneal LCSW UME DRAPER * Plan of Care - Evelyne Mcneal LCSW - 12/06/2024 7:56 AM CST Sent updated notes via CarePort to [facility] unit. Will need to forwardPT/OT evals once available. Pt was at the swing bed for skilled rehab prior to this hospitalizationand wants to return at [place]. UME DRAPER * Initial Assessments - Evelyne Mcneal LCSW - 12/06/2024 7:08 AM COSTUME DRAPER SW Assessment completed 11/22/24 [facility]. Any additions will be added to a new note. UME DRAPER * Plan of Care - Vesna Neal RN - 12/06/2024 3:44 AM CST Goals: Clinical Goals for the Shift: Pt to remain safe with vss Summary: Pt has been safe this shift. Complaints of pain at start of shift. VSS UME DRAPER * Plan of Care - Piedad Alcantara RN - 12/05/2024 2:25 PM CST Goals: Clinical Goals for the Shift: Pt will remain hemodynamically stable, free from chest pain. Summary: Quiet day, rested well. Continues to have complaints of pain, in chest and chronic pain, medicated as ordered. Seen by cardiology, will sign off. technical services assistant consult entered, hopeful fordc back to [facility] bed for rehab. Messaged Dr. Davenport about restarting Coumadin, awaiting orders. Vss. UME DRAPER * Plan of Care - Vesna Neal RN - 12/05/2024 4:58 AM CST Goals: Clinical Goals for the Shift: Pt to remain safe with vss and no chest pain Summary: Pt has been safe this shift. Up to BS independently. Medicated for pain, see MAR. Heparingtt continued. VSS UME DRAPER * Plan of Care - Piedad Alcantara RN - 12/04/2024 4:25 PM CST Goals: Pt will remain hemodynamically stable and free from pain Summary: Care plan initiated. UME DRAPER documented in this encounter Plan of Treatment Scheduled Orders Name Type Priority Associated Diagnoses Order Schedule Oxygen Therapy - Nasal Cannula; 2 L/min Respiratory Care Routine For RT frequenc y use only for continuous procedures with task-based reminders at 8a and 8p until discontinued starting 12/04/2024 POCT glucose Point of Care Testing-Docked Device Routine As needed until discontinued starting 12/04/2024 POCT glucose Point of Care Testing-Docked Device Routine 4X Daily (AC and at bedtime) until discontinued starting 12/04/2024, 19 completed NPPV (Noninvasive positive-pressur e ventilation) -NPPV Settings: Per MD; Home Unit: Yes Respiratory Care Routine 2100 until discontinued starting 12/04/2024 Protime-INR Lab Routine AM draw - col lect with morning lab draw until discontinued starting 12/06/2024, 4 completed POCT glucose Point of Care Testing-Docked Device Routine As needed until discontinued starting 12/06/2024 documented as of this encounter Goals Goal [...] take, when to call CM or provider. [facility] Chronic Pain Care Plan Chronic [...] on stairs Contact your local community or [facility] for information on exercise, fall prevention programs, or options for improving home safety. documented as of this encounter Procedures Procedure Name Priority Date/Time Associated Diagnosis Comments POCT GLUCOSE DEVICE Routine 12/09/2024 3 :12 PM COSTUME DRAPER POCT GLUCOSE DEVICE Routine 12/09/2024 1 1:37 AM COSTUME DRAPER POCT GLUCOSE DEVICE Routine 12/09/2024 7 :55 AM COSTUME DRAPER POCT GLUCOSE DEVICE Routine 12/09/2024 4 :54 AM COSTUME DRAPER PROTIME-INR Routine 12/09/2024 3:07 AM COSTUME DRAPER POCT GLUCOSE DEVICE Routine 12/09/2024 2 :15 AM COSTUME DRAPER POCT GLUCOSE DEVICE Routine 12/08/2024 8 :20 PM COSTUME DRAPER POCT GLUCOSE DEVICE Routine 12/08/2024 5 :13 PM COSTUME DRAPER POCT GLUCOSE DEVICE Routine 12/08/2024 1 2:23 PM COSTUME DRAPER POCT GLUCOSE DEVICE Routine 12/08/2024 8 :14 AM COSTUME DRAPER DIFFERENTIAL AUTO Routine 12/08/2024 5:2 9 AM COSTUME DRAPER CBC WITH AUTO DIFFERENTIAL Routine 12/08/2024 5:29 AM COSTUME DRAPER EGFR Routine 12/08/2024 3:15 AM COSTUME DRAPER BETA-HYDROXYBUTYRATE Routine 12/08/2024 3:15 AM COSTUME DRAPER PROTIME-INR Routine 12/08/2024 3:15 AM COSTUME DRAPER MAGNESIUM Routine 12/08/2024 3:15 AM COSTUME DRAPER COMPREHENSIVE METABOLIC PANEL Routine 12/08/2024 3:15 AM COSTUME DRAPER POCT GLUCOSE DEVICE Routine 12/08/2024 2 :05 AM COSTUME DRAPER POCT GLUCOSE DEVICE Routine 12/07/2024 8 :57 PM COSTUME DRAPER POCT GLUCOSE DEVICE Routine 12/07/2024 5 :14 PM COSTUME DRAPER POCT GLUCOSE DEVICE Routine 12/07/2024 1 1:54 AM COSTUME DRAPER POCT GLUCOSE DEVICE Routine 12/07/2024 7 :21 AM COSTUME DRAPER POCT GLUCOSE DEVICE Routine 12/07/2024 1 :49 AM COSTUME DRAPER EGFR Routine 12/07/2024 12:27 AM COSTUME DRAPER DIFFERENTIAL AUTO Routine 12/07/2024 12: 27 AM COSTUME DRAPER CBC WITH AUTO DIFFERENTIAL Routine 12/07/2024 12:27 AM COSTUME DRAPER PROTIME-INR Routine 12/07/2024 12:27 AM COSTUME DRAPER MAGNESIUM Routine 12/07/2024 12:27 AM COSTUME DRAPER COMPREHENSIVE METABOLIC PANEL Routine 12/07/2024 12:27 AM COSTUME DRAPER POCT GLUCOSE DEVICE Routine 12/06/2024 8 :52 PM COSTUME DRAPER POCT GLUCOSE DEVICE Routine 12/06/2024 5 :29 PM COSTUME DRAPER POCT GLUCOSE DEVICE Routine 12/06/2024 1 1:50 AM COSTUME DRAPER POCT GLUCOSE DEVICE Routine 12/06/2024 7 :49 AM COSTUME DRAPER EGFR Routine 12/06/2024 6:08 AM COSTUME DRAPER DIFFERENTIAL AUTO Routine 12/06/2024 6:0 8 AM COSTUME DRAPER CBC WITH AUTO DIFFERENTIAL Routine 12/06/2024 6:08 AM COSTUME DRAPER PROTIME-INR Routine 12/06/2024 6:08 AM COSTUME DRAPER MAGNESIUM Routine 12/06/2024 6:08 AM COSTUME DRAPER COMPREHENSIVE METABOLIC PANEL Routine 12/06/2024 6:08 AM COSTUME DRAPER POCT GLUCOSE DEVICE Routine 12/06/2024 2 :54 AM COSTUME DRAPER POCT GLUCOSE DEVICE Routine 12/05/2024 8 :38 PM COSTUME DRAPER POCT GLUCOSE DEVICE Routine 12/05/2024 5 :15 PM COSTUME DRAPER POCT GLUCOSE DEVICE Routine 12/05/2024 1 2:17 PM COSTUME DRAPER POCT GLUCOSE DEVICE Routine 12/05/2024 7 :42 AM COSTUME DRAPER EGFR Routine 12/05/2024 5:47 AM COSTUME DRAPER DIFFERENTIAL AUTO Routine 12/05/2024 5:4 7 AM COSTUME DRAPER CBC WITH AUTO DIFFERENTIAL Routine 12/05/2024 5:47 AM COSTUME DRAPER APTT Timed 12/05/2024 5:47 AM COSTUME DRAPER MAGNESIUM Routine 12/05/2024 5:47 AM COSTUME DRAPER LIPID PANEL Routine 12/05/2024 5:47 AM COSTUME DRAPER COMPREHENSIVE METABOLIC PANEL Routine 12/05/2024 5:47 AM COSTUME DRAPER ECG 12-LEAD Routine 12/05/2024 5:26 AM COSTUME DRAPER POCT GLUCOSE DEVICE Routine 12/05/2024 2 :38 AM COSTUME DRAPER APTT Timed 12/04/2024 11:06 PM COSTUME DRAPER TROPONIN T HIGH-SENSITIVITY 6-HOUR Timed 12/04/2024 10:12 PM COSTUME DRAPER POCT GLUCOSE DEVICE Routine 12/04/2024 9 :00 PM COSTUME DRAPER TROPONIN T HIGH-SENSITIVITY 4-HR Timed 12/04/2024 8:32 PM COSTUME DRAPER TROPONIN T HIGH-SENSITIVITY 2-HOUR Timed 12/04/2024 6:02 PM COSTUME DRAPER EGFR Routine 12/04/2024 4:12 PM COSTUME DRAPER APTT STAT 12/04/2024 4:12 PM COSTUME DRAPER PROTIME-INR STAT 12/04/2024 4:12 PM COSTUME DRAPER CBC WITHOUT DIFFERENTIAL STAT 12/04/2024 4:12 PM COSTUME DRAPER BASIC METABOLIC PANEL Routine 12/04/2024 4:12 PM COSTUME DRAPER TROPONIN T HIGH-SENSITIVITY SERIES (BASELINE, 2HR, 4HR, 6HR) Routine 12/04/2024 4:08 PM COSTUME DRAPER documented in this encounter Results * POCT glucose (12/09/2024 3:12 PM COSTUME DRAPER) Glucose, POC 128 70 - 199 mg/dL Blood 12/09/2024 3:12 PM COSTUME DRAPER 12/09/2024 3:12 PM COSTUME DRAPER us Jaylene Huang MD LAB POCT ORDERABLES - DEVICE Final Result [facility] ([place]) 1 [facility] [employer] [place] [address] * (ABNORMAL) POCT glucose (12/09/2024 11:37 AM COSTUME DRAPER) Glucose, POC 404(H) 70 - 199 mg/dL Blood 12/09/2024 11:3 7 AM COSTUME DRAPER 12/09/2024 11:37 AM COSTUME DRAPER us Jaylene Huang MD LAB POCT ORDERABLES - DEVICE Final Result Performing Organization Address City/[facility]/ZIP Co de Phone Number [facility] ([place]) 1 [facility] [employer] [place] [address] * POCT glucose (12/09/2024 7:55 AM COSTUME DRAPER) Glucose, POC 184 70 - 199 mg/dL Blood 12/09/2024 7:55 AM COSTUME DRAPER 12/09/2024 7:55 AM COSTUME DRAPER us Jaylene Huang MD LAB POCT ORDERABLES - DEVICE Final Result Performing Organization Address City/[facility]/ZIP Co de Phone Number [facility] ([place]) 1 [facility] [employer] [place] [address] * (ABNORMAL) POCT glucose (12/09/2024 4:54 AM COSTUME DRAPER) Glucose, POC 246(H) 70 - 199 mg/dL Blood 12/09/2024 4:54 AM COSTUME DRAPER 12/09/2024 4:54 AM COSTUME DRAPER us Jaylene Huang MD LAB POCT ORDERABLES - DEVICE Final Result [facility] ([place]) 1 [facility] [employer] [place] [address] * (ABNORMAL) Protime-INR (12/09/2024 3:07 AM COSTUME DRAPER) PT 27.3(H) 9.7 - 13.0 sec [facility] ([place]) INR 2.48(H) 0.90 - 1.20 [facility] ([place]) Comment: Interpretive data Oral anticoagulant therapeutic ranges: Venous thromboembolism prophylaxis or treatment: 2.0-3.0 CARDIOLOGY Standard range: 2.0-3.0 High-intensity range: 2.5-3.5 Refer to indication-specific guidelines for appropriate target ranges for prosthetic heart valve replacement. Current interpretive data was last revised on 2019. Blood 12/09/2024 3:07 AM COSTUME DRAPER 12/09/2024 3:23 AM COSTUME DRAPER Sampson Davenport II, MD LAB BLOOD ORDERABLES F inal Result Performing Organization Address [facility] Co de Phone Number [facility] ([place]) 1 [facility] [employer] [place] [address] * (ABNORMAL) POCT glucose (12/09/2024 2:15 AM COSTUME DRAPER) Glucose, POC 415(H) 70 - 199 mg/dL Blood 12/09/2024 2:15 AM COSTUME DRAPER 12/09/2024 2:15 AM COSTUME DRAPER Jaylene Huang MD LAB POCT ORDERABLES - DEVICE Final Result Performing Organization Address [facility] Co de Phone Number [facility] ([place]) 1 [facility] [employer] [place] [address] * POCT glucose (12/08/2024 8:20 PM COSTUME DRAPER) Glucose, POC 96 70 - 199 mg/dL Blood 12/08/2024 8:20 PM COSTUME DRAPER 12/08/2024 8:20 PM COSTUME DRAPER Jaylene Huang MD LAB POCT ORDERABLES - DEVICE Final Result Performing Organization Address City/[facility]/ZIP Co de Phone Number [facility] ([place]) [address] [place] [address] * POCT glucose (12/08/2024 5:13 PM COSTUME DRAPER) Glucose, POC 110 70 - 199 mg/dL Blood 12/08/2024 5:13 PM COSTUME DRAPER 12/08/2024 5:13 PM COSTUME DRAPER us Jaylene Huang MD LAB POCT ORDERABLES - DEVICE Final Result [facility] ([place]) 1 [place] [address] * (ABNORMAL) POCT glucose (12/08/2024 12:23 PM COSTUME DRAPER) [facility] Signature Glucose, POC 253(H) 70 - 199 mg/dL Blood 12/08/2024 12:2 3 PM COSTUME DRAPER 12/08/2024 12:23 PM COSTUME DRAPER us Jaylene Huang MD LAB POCT ORDERABLES - DEVICE Final Result [facility] ([place]) 1 [facility] [employer] [place] [address] * (ABNORMAL) POCT glucose (12/08/2024 8:14 AM COSTUME DRAPER) Glucose, POC 213(H) 70 - 199 mg/dL Blood 12/08/2024 8:14 AM COSTUME DRAPER 12/08/2024 8:14 AM COSTUME DRAPER Jaylene Huang MD LAB POCT ORDERABLES - DEVICE Final Result [facility] ([place]) 1 [facility] [employer] [place] [address] * Differential, auto (12/08/2024 5:29 AM COSTUME DRAPER) Neutrophil abs 5.3 1.5 - 6.5 K/cumm [...] revised on 2018. Blood 12/08/2024 5:29 AM COSTUME DRAPER 12/08/2024 5:45 AM COSTUME DRAPER us Haven Carmona MD LAB BLOOD ORDERABLES Fi nal Result [facility] ([place]) 1 [facility] [place] [address] * (ABNORMAL) CBC with auto differential (12/08/2024 5:29 AM COSTUME DRAPER) Pathologist [facility] WBC 7.5 3.8 - 9.9 K/cumm Hgb [...] [facility] ([place]) Blood 12/08/2024 5:29 AM COSTUME DRAPER 12/08/2024 5:45 AM COSTUME DRAPER us Haven Carmona MD LAB BLOOD ORDERABLES Fi nal Result [facility] ([place]) 1 [facility] [employer] [place] [address] * eGFR (12/08/2024 3:15 AM COSTUME DRAPER) Pathologist [facility] eGFR >90 >=60 mL/min/1. 73 m2 [...] last reviewed 2021. Blood 12/08/2024 3:15 AM COSTUME DRAPER 12/08/2024 3:32 AM COSTUME DRAPER us Sanjeev Gonzales MD LAB BLOOD ORDERABLES Final Resu lt [facility] ([place]) 1 [facility] [place] [address] * Magnesium (12/08/2024 3:15 AM COSTUME DRAPER) Magnesium 2.5 1.4 - 2.5 mg/dL Blood 12/08/2024 3:15 AM COSTUME DRAPER 12/08/2024 3:32 AM COSTUME DRAPER Sanjeev Gonzales MD LAB BLOOD ORDERABLES Final Resu lt [facility] ([place]) 1 [facility] [place] [address] * (ABNORMAL) Comprehensive metabolic panel (12/08/2024 3:15 AM COSTUME DRAPER) Sodium 143 135 - 145 mmol/L Potassium, [...] Hemolyzed S pecimen Blood 12/08/2024 3:15 AM COSTUME DRAPER 12/08/2024 3:32 AM COSTUME DRAPER us Sanjeev Gonzales MD LAB BLOOD ORDERABLES Final Resu lt [facility] ([place]) 1 [facility] [place] [address] * Beta-hydroxybutyrate (12/08/2024 3:15 AM COSTUME DRAPER) Beta-Hydroxybut yrate 0.2 <=0.5 mmol/L Comment:Testing performed by : [facility], [address] [place] [address], [place] [address] Blood 12/08/2024 3:15 AM COSTUME DRAPER 12/08/2024 10:39 AM COSTUME DRAPER Jaylene Huang MD LAB BLOOD ORDERABLES Final Re sult Performing Organization Address [facility]/ZIP Co de Phone Number [facility] ([place]) 1 [facility] [place] [employer] [place] [address] * (ABNORMAL) Protime-INR (12/08/2024 3:15 AM COSTUME DRAPER) Pathologist [facility] PT 25.2(H) 9.7 - 13.0 sec [facility] ([place]) INR 2.29(H) 0.90 - 1.20 [facility] ([place]) Comment: Interpretive data Oral anticoagulant therapeutic ranges: Venous thromboembolism prophylaxis or treatment: 2.0-3.0 CARDIOLOGY Standard range: 2.0-3.0 High-intensity range: 2.5-3.5 Refer to indication-specific guidelines for appropriate target ranges for prosthetic heart valve replacement. Current interpretive data was last revised on 2019. Blood 12/08/2024 3:15 AM COSTUME DRAPER 12/08/2024 3:32 AM COSTUME DRAPER us Sampson Davenport II, MD LAB BLOOD ORDERABLES F inal Result Performing Organization Address [facility]/ZIP Co de Phone Number [facility] ([place]) 1 [facility] [employer] [address] * (ABNORMAL) POCT glucose (12/08/2024 2:05 AM COSTUME DRAPER) Pathologist [facility] Glucose, POC 280(H) 70 - 199 mg/dL Blood 12/08/2024 2:05 AM COSTUME DRAPER 12/08/2024 2:05 AM COSTUME DRAPER us Jaylene Huang MD LAB POCT ORDERABLES - DEVICE Final Result [facility] ([place]) 1 [facility] [employer] [place] [address] * POCT glucose (12/07/2024 8:57 PM COSTUME DRAPER) Glucose, POC 127 70 - 199 mg/dL Blood 12/07/2024 8:57 PM COSTUME DRAPER 12/07/2024 8:57 PM COSTUME DRAPER us Jaylene Huang MD LAB POCT ORDERABLES - DEVICE Final Result Performing Organization Address [facility]/ZIP Co de Phone Number [facility] ([place]) 1 [facility] [employer] [place] [address] * (ABNORMAL) POCT glucose (12/07/2024 5:14 PM COSTUME DRAPER) Glucose, POC 214(H) 70 - 199 mg/dL Blood 12/07/2024 5:14 PM COSTUME DRAPER 12/07/2024 5:14 PM COSTUME DRAPER us Jaylene Huang MD LAB POCT ORDERABLES - DEVICE Final Result Performing Organization Address City/[facility]/ZIP Co de Phone Number ALLY CUMMINGS ([place]) 1 [facility] [employer] [place] [address] * (ABNORMAL) POCT glucose (12/07/2024 11:54 AM COSTUME DRAPER) Glucose, POC 225(H) 70 - 199 mg/dL Blood 12/07/2024 11:5 4 AM COSTUME DRAPER 12/07/2024 11:54 AM COSTUME DRAPER us Jaylene Huang MD LAB POCT ORDERABLES - DEVICE Final Result [facility]Y [facility] ([place]) 1 [facility] [employer] [place] [address] * (ABNORMAL) POCT glucose (12/07/2024 7:21 AM COSTUME DRAPER) Glucose, POC 275(H) 70 - 199 mg/dL Blood 12/07/2024 7:21 AM COSTUME DRAPER 12/07/2024 7:21 AM COSTUME DRAPER us Jaylene Huang MD LAB POCT ORDERABLES - DEVICE Final Result [facility] ([place]) 1 [facility] [employer] [place] [address] * (ABNORMAL) POCT glucose (12/07/2024 1:49 AM COSTUME DRAPER) Glucose, POC 227(H) 70 - 199 mg/dL Blood 12/07/2024 1:49 AM COSTUME DRAPER 12/07/2024 1:49 AM COSTUME DRAPER us Sampson Davenport II, MD LAB POCT ORDERABLES - DEVICE Final Result Performing Organization Address City/[facility]/ZIP Co de Phone Number [facility] ([place]) 1 [facility] [employer] [place] [address] * eGFR (12/07/2024 12:27 AM COSTUME DRAPER) eGFR >90 >=60 mL/min/1. 73 m2 Comment: [...] reviewed 2021. Blood 12/07/2024 12:2 7 AM COSTUME DRAPER 12/07/2024 12:42 AM COSTUME DRAPER us Sanjeev oGnzales MD LAB BLOOD ORDERABLES Final Resu lt [facility] ([place]) 1 [facility] [place] [address] * (ABNORMAL) Differential, auto (12/07/2024 12:27 AM COSTUME DRAPER) Neutrophil abs 8.2(H) 1.5 - 6.5 K/cumm Imm gran abs 0.2(H) 0.0 - 0.1 K/cumm [facility] ([place]) Lymphocyte abs 1.9 0.8 - 3.3 K/cumm [facility] ([place]) Monocyte abs 0.8 0.2 - 0.8 K/cumm [facility] ([place]) Eosinophil abs 0.0 0.0 - 0.5 K/cumm [facility] ([place]) Basophil abs 0.1 0.0 - 0.1 K/cumm [facility] ([place]) Neutrophil pct 73.1 % [facility] ([place]) Comment: Interpretive Data Percent cell count reference [...] on 2018. Blood 12/07/2024 12:2 7 AM COSTUME DRAPER 12/07/2024 12:42 AM COSTUME DRAPER Sanjeev Gonzales MD LAB BLOOD ORDERABLES Final Resu lt Performing Organization Address City/[facility]/ZIP Co de Phone Number ALLY [facility] ([place]) 1 [facility] [employer] [place] [address] * Magnesium (12/07/2024 12:27 AM COSTUME DRAPER) Magnesium 2.4 1.4 - 2.5 mg/dL Blood 12/07/2024 12:2 7 AM COSTUME DRAPER 12/07/2024 12:42 AM COSTUME DRAPER Sanjeev Gonzales MD LAB BLOOD ORDERABLES Final Resu lt Performing Organization Address City/[facility]/ZIP Co de Phone Number [facility]Y [facility] ([place]) 1 [facility] [place] [employer] [place] [address] * (ABNORMAL) Comprehensive metabolic panel (12/07/2024 12:27 AM COSTUME DRAPER) Sodium 143 135 - 145 mmol/L Potassium, pl 4.0 3.3 - 4.9 mmol/L [facility] ([place]) Chloride 98 97 - 110 mmol/L [facility] ([place]) CO2 30 22 - 32 mmol/L [facility] ([place]) Anion gap 15 2 - [...] [facility] ([place]) Blood 12/07/2024 12:2 7 AM COSTUME DRAPER 12/07/2024 12:42 AM COSTUME DRAPER us Sanjeev Gonzales MD LAB BLOOD ORDERABLES Final Resu lt [facility] ([place]) 1 [facility] [place], [place] [id number] * (ABNORMAL) CBC with auto differential (12/07/2024 12:27 AM COSTUME DRAPER) WBC 11.3(H) 3.8 - 9.9 K/cumm Hgb 10.2(L) 11.9 - 15.5 g/dL [facility] ([place]) Hct 38.0 35.6 - 45.5 % [facility] ([place]) Plt 380 150 - 400 K/cumm [facility] ([place] MPV 10.5 9.1 - 12.3 fL [facility] ([place]) RBC 4.35 3.90 - 5.20 M/cumm [facility] ([place]) MCV 87.4 81.3 - 96.4 fL [facility] ([place]) MCH 23.4(L) 27.1 - 33.3 pg [facility] ([place]) MCHC 26.8(L) 32.3 - 35.7 g/dL [facility] ([place]) RDW CV 22.5(H) 11.1 - 14.9 % [facility] ([place]) RDW SD 70.7(H) 35.7 - 48.1 fL [facility] ([place]) NRBC abs 0.10(H) 0.00 - 0.01 K/cumm [facility] ([place]) Blood 12/07/2024 12:2 7 AM COSTUME DRAPER 12/07/2024 12:42 AM COSTUME DRAPER us Sanjeev Gonzales MD LAB BLOOD ORDERABLES Final Resu lt ALLY [facility] ([place]) 1 [facility] [place], [place] [id number] * (ABNORMAL) Protime-INR (12/07/2024 12:27 AM COSTUME DRAPER) PT 21.6(H) 9.7 - 13.0 sec [facility] ([place]) INR 1.97(H) 0.90 - 1.20 [facility] ([place]) Comment: Interpretive data Oral anticoagulant therapeutic ranges: Venous thromboembolism prophylaxis or treatment: 2.0-3.0 CARDIOLOGY Standard range: 2.0-3.0 High-intensity range: 2.5-3.5 Refer to indication-specific guidelines for appropriate target ranges for prosthetic heart valve replacement. Current interpretive data was last revised on 2019. Blood 12/07/2024 12:2 7 AM COSTUME DRAPER 12/07/2024 12:42 AM COSTUME DRAPER us Sampson Davenport II, MD LAB BLOOD ORDERABLES F inal Result ALLY CUM[facility] ([place]) 1 [facility] [employer] [place] [address] * (ABNORMAL) POCT glucose (12/06/2024 8:52 PM COSTUME DRAPER) Glucose, POC 219(H) 70 - 199 mg/dL Blood 12/06/2024 8:52 PM COSTUME DRAPER 12/06/2024 8:52 PM COSTUME DRAPER us Sampson Davenport II, MD LAB POCT ORDERABLES - DEVICE Final Result Performing Organization Address [facility]/ZIP Co de Phone Number ALLY CUMMINGS ([place]) 1 [facility] [employer] [place] [address] * POCT glucose (12/06/2024 5:29 PM COSTUME DRAPER) Glucose, POC 115 70 - 199 mg/dL Blood 12/06/2024 5:29 PM COSTUME DRAPER 12/06/2024 5:29 PM COSTUME DRAPER us Sampson Davenport II, MD LAB POCT ORDERABLES - DEVICE Final Result Performing Organization Address City/[facility]/ZIP Co de Phone Number ALLY CUMMINGS ([place]) 1 [facility] [employer] [place] [address] * (ABNORMAL) POCT glucose (12/06/2024 11:50 AM COSTUME DRAPER) Glucose, POC 247(H) 70 - 199 mg/dL Blood 12/06/2024 11:5 0 AM COSTUME DRAPER 12/06/2024 11:50 AM COSTUME DRAPER us Sampson Davenport II, MD LAB POCT ORDERABLES - DEVICE Final Result Performing Organization Address City/[facility]/ZIP Co de Phone Number ALLY CUMMINGS ([place]) 1 [facility] [place] [address] * (ABNORMAL) POCT glucose (12/06/2024 7:49 AM COSTUME DRAPER) Glucose, POC 208(H) 70 - 199 mg/dL Blood 12/06/2024 7:49 AM COSTUME DRAPER 12/06/2024 7:49 AM COSTUME DRAPER us Sampson Davenport II, MD LAB POCT ORDERABLES - DEVICE Final Result ALLY CUMMINGS ([place]) 1 [facility] [employer] [place] [address] * eGFR (12/06/2024 6:08 AM COSTUME DRAPER) Pathologist [facility] eGFR >90 >=60 mL/min/1. 73 m2 [...] last reviewed 2021. Blood 12/06/2024 6:08 AM COSTUME DRAPER 12/06/2024 6:20 AM COSTUME DRAPER us Sanjeev Gonzales MD LAB BLOOD ORDERABLES Final Resu lt ALLY CUMMINGS ([place]) 1 [facility] [employer] [address] * (ABNORMAL) Differential, auto (12/06/2024 6:08 AM COSTUME DRAPER) Neutrophil abs 7.8(H) 1.5 - 6.5 K/cumm [...] revised on 2018. Blood 12/06/2024 6:08 AM COSTUME DRAPER 12/06/2024 6:20 AM COSTUME DRAPER Sanjeev Gonzales MD LAB BLOOD ORDERABLES Final Resu lt ALLY CUMM[facility] ([place]) 1 [facility] [employer] [place] [address] * Magnesium (12/06/2024 6:08 AM COSTUME DRAPER) Magnesium 2.3 1.4 - 2.5 mg/dL Blood 12/06/2024 6:08 AM COSTUME DRAPER 12/06/2024 6:20 AM COSTUME DRAPER Sanjeev Gonzales MD LAB BLOOD ORDERABLES Final Resu lt Performing Organization Address [facility] Co de Phone Number ALLY CUMMINGS ([place]) 1 [facility] [employer] [place] [address] * (ABNORMAL) Comprehensive metabolic panel (12/06/2024 6:08 AM COSTUME DRAPER) Sodium 146(H) 135 - 145 mmol/L Potassium, pl 3.8 3.3 - 4.9 mmol/L [facility] ([place]) Chloride 97 97 - 110 mmol/L [facility] ([place]) CO2 36(H) 22 - 32 mmol/L [facility] ([place]) Anion gap 13 2 - 15 mmol/L [facility] ([place]) BUN 19 6 - 25 mg/dL [facility] ([place]) Creatinine 0.47(L) 0.60 - 1.10 [...] [facility] ([place]) Blood 12/06/2024 6:08 AM COSTUME DRAPER 12/06/2024 6:20 AM COSTUME DRAPER us Sanjeev Gonzales MD LAB BLOOD ORDERABLES Final Resu lt [facility] ([place]) 1 [facility] [place] [address] * (ABNORMAL) CBC with auto differential (12/06/2024 6:08 AM COSTUME DRAPER) WBC 10.0(H) 3.8 - 9.9 K/cumm Hgb [...] ([place]) MCHC 27.7(L) 32.3 - 35.7 g/dL [facility] ([place]) RDW CV 22.8(H) 11.1 - 14.9 % [facility] ([place]) RDW SD 69.4(H) 35.7 - 48.1 fL [facility] ([place]) NRBC abs 0.03(H) 0.00 - 0.01 K/cumm [facility] ([place]) Blood 12/06/2024 6:08 AM COSTUME DRAPER 12/06/2024 6:20 AM COSTUME DRAPER us Sanjeev Gonzales MD LAB BLOOD ORDERABLES Final Resu lt ALLY CUMM[facility] ([place]) 1 [facility] [place] [address] * (ABNORMAL) Protime-INR (12/06/2024 6:08 AM COSTUME DRAPER) PT 18.9(H) 9.7 - 13.0 sec [facility] ([place]) INR 1.73(H) 0.90 - 1.20 [facility] ([place]) Comment: Interpretive data Oral anticoagulant therapeutic ranges: Venous thromboembolism prophylaxis or treatment: 2.0-3.0 CARDIOLOGY Standard range: 2.0-3.0 High-intensity range: 2.5-3.5 Refer to indication-specific guidelines for appropriate target ranges for prosthetic heart valve replacement. Current interpretive data was last revised on 2019. Blood 12/06/2024 6:08 AM COSTUME DRAPER 12/06/2024 6:20 AM COSTUME DRAPER us Sampson Davenport II, MD LAB BLOOD ORDERABLES F inal Result ALLY CUMMINGS ([place]) 1 [facility] [place] [address] * POCT glucose (12/06/2024 2:54 AM COSTUME DRAPER) Glucose, POC 179 70 - 199 mg/dL Blood 12/06/2024 2:54 AM COSTUME DRAPER 12/06/2024 2:54 AM COSTUME DRAPER us Sampson Davenport II, MD LAB POCT ORDERABLES - DEVICE Final Result Performing Organization Address [facility] Co de Phone Number ALLY CUMMINGS ([place]) 1 [facility] [employer] [place] [address] * (ABNORMAL) POCT glucose (12/05/2024 8:38 PM COSTUME DRAPER) Glucose, POC 259(H) 70 - 199 mg/dL Blood 12/05/2024 8:38 PM COSTUME DRAPER 12/05/2024 8:38 PM COSTUME DRAPER us Sampson Davenport II, MD LAB POCT ORDERABLES - DEVICE Final Result Performing Organization Address [facility] Co de Phone Number ALLY CUMMINGS ([place]) 1 [facility] [employer] [place] [address] * POCT glucose (12/05/2024 5:15 PM COSTUME DRAPER) Glucose, POC 193 70 - 199 mg/dL Blood 12/05/2024 5:15 PM COSTUME DRAPER 12/05/2024 5:15 PM COSTUME DRAPER us Sampson Davenport II, MD LAB POCT ORDERABLES - DEVICE Final Result Performing Organization Address [facility] Co de Phone Number ALLY CUMMINGS ([place]) 1 [facility] [employer] [place] [address] * (ABNORMAL) POCT glucose (12/05/2024 12:17 PM COSTUME DRAPER) Glucose, POC 209(H) 70 - 199 mg/dL Comment:Glu2: RN/ Notified Blood 12/05/2024 12:1 7 PM COSTUME DRAPER 12/05/2024 12:17 PM COSTUME DRAPER us Sampson Davenport II, MD LAB POCT ORDERABLES - DEVICE Final Result [facility] ([place]) 1 [facility] [place] [employer] [place] [address] * (ABNORMAL) POCT glucose (12/05/2024 7:42 AM COSTUME DRAPER) Glucose, POC 254(H) 70 - 199 mg/dL Comment:Glu2: RN/ Notified Blood 12/05/2024 7:42 AM COSTUME DRAPER 12/05/2024 7:42 AM COSTUME DRAPER Sampson Davenport II, MD LAB POCT ORDERABLES - DEVICE Final Result Performing Organization Address City/[facility] Co de Phone Number ALLY CUMMINGS [place]) 1 [facility] [place] [address] * eGFR (12/05/2024 5:47 AM COSTUME DRAPER) [facility] eGFR >90 >=60 mL/min/1. 73 m2 [...] last reviewed 2021. Blood 12/05/2024 5:47 AM COSTUME DRAPER 12/05/2024 6:10 AM COSTUME DRAPER Sanjeev Gonzales MD LAB BLOOD ORDERABLES Final Resu lt [facility] ([place]) 1 [facility] [place] [address] * (ABNORMAL) Differential, auto (12/05/2024 5:47 AM COSTUME DRAPER) Neutrophil abs 8.9(H) 1.5 - 6.5 K/cumm [...] Neutrophil pct 75.7 % [facility] ([place]) Comment: Interpretive Data Percent cell count reference ranges are not reported, since discordance with absolute values may lead to misinterpretation of CBC data. Current Interpretive Data was last revised on 2018. Imm gran pct 1.8 % [facility] ([place]) Comment: Interpretive Data Percent cell count reference [...] 2018. Monocyte pct 8.0 % [facility] ([place]) Comment: Interpretive Data Percent cell count reference [...] revised on 2018. Blood 12/05/2024 5:47 AM COSTUME DRAPER 12/05/2024 6:10 AM COSTUME DRAPER Sanjeev Gonzales MD LAB BLOOD ORDERABLES Final Resu lt [facility] ([place]) 1 [facility] [employer] [place] [address] * Magnesium (12/05/2024 5:47 AM COSTUME DRAPER) Pathologist [facility] Magnesium 2.2 1.4 - 2.5 mg/dL Blood 12/05/2024 5:47 AM COSTUME DRAPER 12/05/2024 6:10 AM COSTUME DRAPER Sanjeev Gonzales MD LAB BLOOD ORDERABLES Final Resu lt Performing Organization Address City/[facility]/ZIP Co de Phone Number ALLY CUMMINGS ([place]) 1 [facility] [employer] [place] [address] * (ABNORMAL) Comprehensive metabolic panel (12/05/2024 5:47 AM COSTUME DRAPER) Sodium 143 135 - 145 mmol/L Potassium, [...] [facility] ([place]) Blood 12/05/2024 5:47 AM COSTUME DRAPER 12/05/2024 6:10 AM COSTUME DRAPER us Sanjeev Gonzales MD LAB BLOOD ORDERABLES Final Resu lt [facility] ([place]) 1 [facility] [place] [address] * (ABNORMAL) CBC with auto differential (12/05/2024 5:47 AM COSTUME DRAPER) WBC 11.7(H) 3.8 - 9.9 K/cumm Hgb 9.5(L) 11.9 - 15.5 g/dL [facility] ([place]) Hct 33.7(L) 35.6 - 45.5 % [facility] ([place]) Plt 406(H) 150 - 400 K/cumm [facility] ([place]) MPV 10.5 9.1 - 12.3 fL [facility] ([place]) RBC 4.02 3.90 - 5.20 M/cumm [facility] ([place]) MCV 83.8 81.3 - 96.4 fL ALLY CUMM[facility] ([place]) MCH 23.6(L) 27.1 - 33.3 pg [facility] ([place]) MCHC 28.2(L) 32.3 - 35.7 g/dL [facility] ([place]) RDW CV 22.7(H) 11.1 - 14.9 % ALLY [facility] ([place]) RDW SD 68.1(H) 35.7 - 48.1 fL [facility] ([place]) NRBC abs 0.00 0.00 - 0.01 K/cumm [facility] ([place]) Blood 12/05/2024 5:47 AM COSTUME DRAPER 12/05/2024 6:10 AM COSTUME DRAPER us Sanjeev Gonzales MD LAB BLOOD ORDERABLES Final Resu lt [facility] ([place]) 1 [facility] [place] [address] * (ABNORMAL) aPTT (12/05/2024 5:47 AM COSTUME DRAPER) aPTT 92(H) 28 - 38 sec [facility] ([place]) Comment: Interpretive Data Heparin therapeutic range: 66.0 - 100.0 seconds. Range based on correlation with therapeutic heparin activity range of 0.3 - 0.7 Units/mL. Current interpretive data was last revised on 2023. Blood 12/05/2024 5:47 AM COSTUME DRAPER 12/05/2024 6:10 AM COSTUME DRAPER Narrative [facility] ([place]) - 12/05/2024 7:06 AM COSTUME DRAPER Do not draw lab from IV line [...] Final Resu lt ALLY [facility] ([place]) 1 [facility] [place] [address] * (ABNORMAL) Lipid panel (12/05/2024 5:47 AM COSTUME DRAPER) Cholesterol 142 30 - 199 mg/dL Comment: [...] LDL, calculated 59 <=129 mg/dL [facility] ([place]) Comment: Interpretive Data Ages < or = [...] NAE[place] CUMMINGS ([place]) Blood 12/05/2024 5:47 AM COSTUME DRAPER 12/05/2024 6:10 AM COSTUME DRAPER us Franchesca Pierce MD LAB BLOOD ORDERABLES Final Res ult [facility] ([place]) 1 [facility] [place] [address] * ECG 12 lead (12/05/2024 5:26 AM COSTUME DRAPER) 12/05/2024 5:26 AM COSTUME DRAPER Narrative [facility] - 12/06/2024 6:36 AM COSTUME DRAPER Vent Rate: 99 bpm RR Interval: 602 msec AK Interval: 349 msec QRS Duration: 98 msec QT Interval: 368 msec QTC Interval: 424 msec P-R-T Dexter: -9 - -6 - 75 degrees IMPRESSION: Sinus rhythm with frequent PACs MODERATE VOLTAGE CRITERIA FOR LVH, CONSIDER NORMAL VARIANT [MEETS CRITERIA IN ONE OF: R(aVL), S(V1), R(V5), R(V5/V6)+S(V1)] NONSPECIFIC T-WAVE ABNORMALITY ABNORMAL RHYTHM ECG NO CHANGE FROM PREVIOUS TRACING NOTED Electronically Signed By: Doni Coles MD Sanjeev Gonzales MD ECG ORDERABLES Final Result [facility] * (ABNORMAL) POCT glucose (12/05/2024 2:38 AM COSTUME DRAPER) Glucose, POC 308(H) 70 - 199 mg/dL Blood 12/05/2024 2:38 AM COSTUME DRAPER 12/05/2024 2:38 AM COSTUME DRAPER us Sanjeev Gonzales MD LAB POCT ORDERABLES - DEVICE Fi nal Result Performing Organization Address City/[facility]/ZIP Co de Phone Number ALLY Ortiz[place]) 1 [facility] [place] [address] * (ABNORMAL) aPTT (12/04/2024 11:06 PM COSTUME DRAPER) aPTT 54(H) 28 - 38 sec ALLY [facility] ([place]) Comment: Interpretive Data Heparin therapeutic range: 66.0 - 100.0 seconds. Range based on correlation with therapeutic heparin activity range of 0.3 - 0.7 Units/mL. Current interpretive data was last revised on 2023. Blood 12/04/2024 11:0 6 PM COSTUME DRAPER 12/04/2024 11:19 PM COSTUME DRAPER Franchesca Pierce MD LAB BLOOD ORDERABLES Final Res ult [facility]Y [facility] ([place]) 1 [facility] [place] [address] * (ABNORMAL) Troponin T high-sensitivity 6-hour (12/04/2024 10:12 PM COSTUME DRAPER) Pathologist [facility] Trop T hs 48(H) <=14 ng/L Comment: Interpretive Data For further hscTnT resources including the diagnostic algorithm and an aid in interpretation, copy and paste this link: https://nrl.testcatalog.org/show/hsTrop Current Interpretive Data last revised 2020. Trop T hs delta 7 ng/L [facility] ([place]) Trop T hs interp Equivocal [facility] ([place]) Blood 12/04/2024 10:1 2 PM COSTUME DRAPER 12/04/2024 10:15 PM COSTUME DRAPER Franchesca Pierce MD LAB BLOOD ORDERABLES Final Res ult Performing Organization Address City/[facility]/ZIP Co de Phone Number ALLY C[facility] ([place]) 1 [facility] [place] [address] * (ABNORMAL) POCT glucose (12/04/2024 9:00 PM COSTUME DRAPER) [facility] Glucose, POC 261(H) 70 - 199 mg/dL Blood 12/04/2024 9:00 PM COSTUME DRAPER 12/04/2024 9:00 PM COSTUME DRAPER Sanjeev Gonzales MD LAB POCT ORDERABLES - DEVICE Fi nal Result Performing Organization Address City/[facility]/ZIP Co de Phone Number ALLY CUMMINGS ([place]) 1 [place] [address] * (ABNORMAL) Troponin T high-sensitivity 4-hour (12/04/2024 8:32 PM COSTUME DRAPER) Trop T hs 48(H) <=14 ng/L Comment: Interpretive Data For further hscTnT resources including the diagnostic algorithm and an aid in interpretation, copy and paste this link: https://nrl.Mixify.org/show/hsTrop Current Interpretive Data last revised 2020. Trop T hs delta 7 ng/L [facility] ([place]) Trop T hs interp Equivocal [facility] ([place]) Blood 12/04/2024 8:32 PM COSTUME DRAPER 12/04/2024 8:35 PM COSTUME DRAPER Franchesca Pierce MD LAB BLOOD ORDERABLES Final Res ult Performing Organization Address [facility] Co de Phone Number [facility] ([place]) [address] [facility] [place] [address] * (ABNORMAL) Troponin T high-sensitivity 2-hour (12/04/2024 6:02 PM COSTUME DRAPER) Pathologist [facility] Trop T hs 48(H) <=14 ng/L Comment: Interpretive Data For further hscTnT resources including the diagnostic algorithm and an aid in interpretation, copy and paste this link: https://nrl.Mixify.org/show/hsTrop Current Interpretive Data last revised 2020. Trop T hs delta 7 ng/L [facility] ([place]) Trop T hs interp Equivocal [facility] ([place]) Blood 12/04/2024 6:02 PM COSTUME DRAPER 12/04/2024 6:34 PM COSTUME DRAPER Franchesca Pierce MD LAB BLOOD ORDERABLES Final Res ult [facility]Y [facility] ([place]) 1 [facility] [place] [address] * eGFR (12/04/2024 4:12 PM COSTUME DRAPER) [facility] eGFR >90 >=60 mL/min/1. 73 m2 [...] last reviewed 2021. Blood 12/04/2024 4:12 PM COSTUME DRAPER 12/04/2024 4:27 PM COSTUME DRAPER us Franchesca Pierce MD LAB BLOOD ORDERABLES Final Res ult [facility] ([place]) 1 [facility] [place] [address] * (ABNORMAL) Basic metabolic panel (12/04/2024 4:12 PM COSTUME DRAPER) Sodium 136 135 - 145 mmol/L Potassium, pl 4.4 3.3 - 4.9 mmol/L [facility] ([place] Chloride 91(L) 97 - 110 mmol/L [facility] ([place]) CO2 29 22 - 32 mmol/L [facility] ([place]) Anion gap 16(H) 2 - 15 mmol/L [facility] ([place] BUN 20 6 - 25 mg/dL [facility] ([place] Creatinine 0.52(L) 0.60 - 1.10 mg/dL [facility] ([place]) Glucose 385(H) 70 - 199 mg/dL [facility] ([place]) Comment: Interpretive Data Fasting glucose [...] 9.4 8.5 - 10.3 mg/dL [facility] ([place]) Blood 12/04/2024 4:12 PM COSTUME DRAPER 12/04/2024 4:27 PM COSTUME DRAPER Franchesca Pierce MD LAB BLOOD ORDERABLES Final Res ult Performing Organization Address [facility] Co de Phone Number [facility]Y CUMM[facility] ([place]) 1 [facility] [place] [address] * (ABNORMAL) aPTT (12/04/2024 4:12 PM COSTUME DRAPER) aPTT 78(H) 28 - 38 sec [facility] CUMM[facility] ([place]) Comment: Interpretive Data Heparin therapeutic range: 66.0 - 100.0 seconds. Range based on correlation with therapeutic heparin activity range of 0.3 - 0.7 Units/mL. Current interpretive data was last revised on 2023. Blood 12/04/2024 4:12 PM COSTUME DRAPER 12/04/2024 4:27 PM COSTUME DRAPER Narrative [facility] ([place]) - 12/04/2024 4:42 PM COSTUME DRAPER Baseline prior to heparin initiation Franchesca Pierce MD LAB BLOOD ORDERABLES Final Res ult Performing Organization Address [facility]/ZIP Co de Phone Number ALLY CUMMINGS ([place]) [address] [facility] [address] [place], [place] [phone] * (ABNORMAL) CBC without differential (12/04/2024 4:12 PM COSTUME DRAPER) WBC 14.7(H) 3.8 - 9.9 K/cumm Hgb 8.9(L) 11.9 - 15.5 g/dL ALLY CUMMINGS ([place]) Hct 31.6(L) 35.6 - 45.5 % [...] NRBC abs 0.04(H) 0.00 - 0.01 K/cumm [facility] ([place]) Blood 12/04/2024 4:12 PM COSTUME DRAPER 12/04/2024 4:26 PM COSTUME DRAPER Narrative [facility] ([place]) - 12/04/2024 4:29 PM COSTUME DRAPER Baseline prior to heparin initiation us Franchesca Pierce MD LAB BLOOD ORDERABLES Final Res ult ALLY CUMMINGS ([place]) [address] [facility] Department of Laboratories [place], [place] [phone] * (ABNORMAL) Protime-INR (12/04/2024 4:12 PM COSTUME DRAPER) PT 18.0(H) 9.7 - 13.0 sec [facility] ([place]) INR 1.65(H) 0.90 - 1.20 [facility] ([place]) Comment: Interpretive data Oral anticoagulant therapeutic ranges: Venous thromboembolism prophylaxis or treatment: 2.0-3.0 CARDIOLOGY Standard range: 2.0-3.0 High-intensity range: 2.5-3.5 Refer to indication-specific guidelines for appropriate target ranges for prosthetic heart valve replacement. Current interpretive data was last revised on 2019. Blood 12/04/2024 4:12 PM COSTUME DRAPER 12/04/2024 4:27 PM COSTUME DRAPER Narrative ALLY CUMMINGS ([place]) - 12/04/2024 4:42 PM COSTUME DRAPER Baseline prior to heparin initiation Franchesca Pierce MD LAB BLOOD ORDERABLES Final Res ult ALLY OrtizWOODSTOCK) 1 [facility] [employer] [place], [place] [address] * (ABNORMAL) Troponin T high-sensitivity series (baseline, 2hr, 4hr, 6hr) (12/04/2024 4:08 PM COSTUME DRAPER) Trop T hs 41(H) <=14 ng/L Comment: Interpretive Data For further hscTnT resources including the diagnostic algorithm and an aid in interpretation, copy and paste this link: [email or web address].testcatalog.org/show/[email or web address] Current Interpretive Data last revised 2020. Blood 12/04/2024 4:08 PM COSTUME DRAPER 12/04/2024 4:36 PM COSTUME DRAPER Franchesca Pierce MD LAB BLOOD ORDERABLES Final Res ult Performing Organization Address City/[facility]/ZIP Co de Phone Number ALLY OrtizWOODSTOCK) 1 [facility] [place] [address] documented in this encounter Visit Diagnoses Diagnosis NSTEMI (non-ST elevated myocardial infarction) (CMS/HCC) ([facility])- Primary Acute myocardial infarction, subendocardial infarction, episode of care unspecified NSTEMI (non-ST elevated myocardial infarction) (CMS/HCC) (HCC) Acute myocardial infarction, subendocardial infarction, episode of care unspecified Hyperglycemia Other abnormal glucose Hyperglycemia Other abnormal glucose documented in this encounter Admitting Diagnoses Diagnosis NSTEMI (non-ST elevated myocardial infarction) (CMS/HCC) (HCC) Acute myocardial infarction, subendocardial infarction, episode of care unspecified documented in this encounter Administered Medications Active Administered Medications - up to 3 most recent administrations Medication Order MAR Action Action Date Dose Rate Site acetaminophen (TYLENOL) tablet 650 mg 650 mg, oral, Every 6 hours PRN, 1st line for pain, headaches, Starting on 12/04/24 at 1611 Given 12/09/2024 1:01 PM COSTUME DRAPER 650 mg Given 12/08/2024 2:32 PM COSTUME DRAPER 650 mg Given 12/08/2024 7:04 AM COSTUME DRAPER 650 mg amiodarone (PACERONE) tablet 200 mg 200 mg, oral, Daily, First dose on 12/04/24 at 1630 Given 12/09/2024 9:40 AM COSTUME DRAPER 200 mg Given 12/08/2024 8:24 AM COSTUME DRAPER 200 mg Given 12/07/2024 8:18 AM COSTUME DRAPER 200 mg aspirin enteric coated tablet 81 mg 81 mg, oral, Daily, First dose on Fri12/05/24 at 0900, Do not crush, chew, cut, dissolve, open or otherwise manipulate tablet/capsule., Indications: myocardial infarction preventionIndications:myocardial infarction prevention Given 12/09/2024 9:40 AM COSTUME DRAPER 81 mg Given 12/08/2024 8:23 AM COSTUME DRAPER 81 mg Given 12/07/2024 8:18 AM COSTUME DRAPER 81 mg atorvastatin (LIPITOR) tablet 20 mg 20 mg, oral, Daily, First dose on 12/04/24 at 1630 Given 12/09/2024 9:39 AM COSTUME DRAPER 20 mg Given 12/08/2024 8:24 AM COSTUME DRAPER 20 mg Given 12/07/2024 8:17 AM COSTUME DRAPER 20 mg cyclobenzaprine (FLEXERIL) tablet 10 mg 10 mg, oral, 3 times daily PRN, muscle spasms, Starting on 12/04/24 at 2330 Given 12/09/2024 1:01 PM COSTUME DRAPER 10 mg Given 12/09/2024 5:39 AM COSTUME DRAPER 10 mg Given 12/08/2024 2:32 PM COSTUME DRAPER 10 mg dextrose (D10W) 10% bolus 250 mL 250 mL, intravenous, at 1,000 mL/hr, Administer over 15 Minutes, Every 15 min PRN, blood glucose less than 70 mg/dL and UNABLE to swallow/take PO glucose/juice., Starting on Fri12/06/24 at 1802, After treatment for hypoglycemia, recheck BG followed [...] glucose less than 70 mg/dL, Starting on 12/06/24 at 1802, If patient is alert and able to [...] 60 mg, oral, Daily, First dose on 12/05/24 at 0900, Capsule may be opened and contents mixed with applesauce or apple juice ONLY. Do not crush or chew capsule Given 12/09/2024 9:40 AM COSTUME DRAPER 60 mg Given 12/08/2024 8:23 AM COSTUME DRAPER 60 mg Given 12/07/2024 8:18 AM COSTUME DRAPER 60 mg empagliflozin (JARDIANCE) tablet 10 mg 10 mg, oral, Daily, First dose on 12/05/24 at 0900, I /authorizing provider attest that the patient meets the approved [facility] Use Criteria: Yes, Approving Provider: Dorys Indications: heart failure associated with type 2 diabetes mellitusIndications:heart failure associated with type 2 diabetes mellitus Given 12/09/2024 9:39 AM COSTUME DRAPER 10 mg Given 12/08/2024 8:25 AM COSTUME DRAPER 10 mg Given 12/07/2024 8:24 AM COSTUME DRAPER 10 mg furosemide (LASIX) tablet 40 mg 40 mg, oral, 2 times daily (for diuretics), First dose on 12/05/24 at 0900 Given 12/09/2024 3:13 PM COSTUME DRAPER 40 mg Given 12/09/2024 9:40 AM COSTUME DRAPER 40 mg Given 12/08/2024 2:32 PM COSTUME DRAPER 40 mg glucagon injection 1 mg 1 mg, intramuscular, Every 30 min PRN, low blood sugar, blood glucose less than 70 mg/dL AND no IV access AND unable to take PO glucose/juice., Starting on Fri12/06/24 at 1802, After Glucagon is administered, position patient on [...] insulin glargine (LANTUS, SEMGLEE) 100 unit/mL injection 35 Units 35 Units, subcutaneous, Every morning, First dose on Fri12/04/24 at 1830, Do not mix with other insulins Given 12/09/2024 9:41 AM COSTUME DRAPER 35 Units Left Lower Abdomen Given 12/08/2024 8:24 AM COSTUME DRAPER 35 Units Le ft Lower Abdomen Given 12/07/2024 8:17 AM COSTUME DRAPER 35 Units Le ft Lower Abdomen insulin lispro (HumaLOG, ADMELOG) 100 unit/mL injection 0-10 Units 0-10 Units, subcutaneous, 3 times daily with meals, First dose on Fri12/08/24 at 1800, Blood glucose mg/dL: 149 or less: No [...] NPO Status, Indications: Diabetes MellitusIndications:Diabetes Mellitus Given 12/09/2024 12:35 PM COSTUME DRAPER 10 Units Right Lower Abdomen Given 12/09/2024 9:41 AM COSTUME DRAPER 2 Units Le ft Upper Abdomen insulin lispro (HumaLOG, ADMELOG) 100 unit/mL injection 0-5 Units 0-5 Units, subcutaneous, Nightly, First dose on Fri12/08/24 at 2100, Blood glucose mg/dL: 149 or [...] for NPO Status, Indications: Diabetes MellitusIndications:Diabetes Mellitus insulin lispro (HumaLOG, ADMELOG) 100 unit/mL injection 17 Units 17 Units, subcutaneous, 3 times daily with meals, First dose (after last modification) on Fri12/07/24 at 0800, Administer pre-meal doses when pts food tray arrives in room. Do not administer pre-meal doses to NPO patients. Given 12/09/2024 12:35 PM COSTUME DRAPER 17 Units Right Lower Abdomen Given 12/09/2024 9:44 AM COSTUME DRAPER 17 Units Le ft Upper Abdomen Given 12/08/2024 5:52 PM COSTUME DRAPER 17 Units Le ft Lower Abdomen levothyroxine (SYNTHROID) tablet 125 mcg 125 mcg, oral, Daily (early AM), First dose on Fri12/05/24 at 0600, Administer on an empty stomach, preferably 30 minutes before breakfast. Take 4 hours apart from antacids, iron and calcium products. Separate from tube feeds, if applicable. Given 12/09/2024 5:39 AM COSTUME DRAPER 125 mcg Given 12/08/2024 5:45 AM COSTUME DRAPER 125 mcg Given 12/07/2024 5:03 AM COSTUME DRAPER 125 mcg lidocaine (LIDODERM) 5 % patch 2 patch 2 patch, transdermal, Administer over 12 Hours, Every 24 hours, First dose on Fri12/06/24 at 1400, Do not cover the holes on the top side of the patch., Apply to affected area: back, chest Medication Applied 12/09/2024 12:36 PM COSTUME DRAPER 2 patches Chest Medication Applied 12/08/2024 12:17 PM COSTUME DRAPER 2 patches Back Medication Applied 12/07/2024 1:14 PM COSTUME DRAPER 2 patches Other (Comment) metoprolol tartrate (LOPRESSOR) immediate release tablet 12.5 mg 12.5 mg, oral, 2 times daily, First dose on Fri12/05/24 at 0900 Given 12/09/2024 9:40 AM COSTUME DRAPER 12.5 mg Given 12/08/2024 8:55 PM COSTUME DRAPER 12.5 mg Given 12/08/2024 8:23 AM COSTUME DRAPER 12.5 mg midodrine (PROAMATINE) tablet 10 mg 10 mg, oral, 3 times daily before meals, First dose on 12/05/24 at 0730 Given 12/09/2024 12:35 PM COSTUME DRAPER 10 mg Given 12/09/2024 5:42 AM COSTUME DRAPER 10 mg Given 12/08/2024 4:38 PM COSTUME DRAPER 10 mg mirtazapine (REMERON RAOUL-TAB) disintegrating tablet 15 mg 15 mg, oral, Nightly, First dose on 12/04/24 at 2100, If administering by mouth, place tablet on tongue and allow to dissolve. Given 12/08/2024 8:5 6 PM COSTUME DRAPER 15 mg Given 12/07/2024 8:21 PM COSTUME DRAPER 15 mg Given 12/06/2024 8:50 PM COSTUME DRAPER 15 mg nitroglycerin (NITROSTAT) sublingual tablet 0.4 mg 0.4 mg, sublingual, Every 5 min PRN, chest pain, Starting on 12/04/24 at 1538, For 3 doses, Notify MD and obtain EKG if no relief after 3 doses or angina recurs. HOLD and notify MD if SBP less than 90 mmHg. , Indications: AnginaIndications:Angina Given 12/04/2024 8:07 PM COSTUME DRAPER 0.4 mg Given 12/04/2024 7:57 PM COSTUME DRAPER 0.4 mg oxyCODONE (ROXICODONE) tablet 10 mg 10 mg, oral, Every 4 hours PRN, 2nd line for pain, Starting on 12/06/24 at 0759 Given 12/09/2024 3:24 PM COSTUME DRAPER 10 mg Given 12/09/2024 5:39 AM COSTUME DRAPER 10 mg Given 12/09/2024 12:15 AM COSTUME DRAPER [address] (PROTONIX) extended release tablet 40 mg 40 mg, oral, Daily, First dose on 12/04/24 at 1630, Do not crush, chew, cut, dissolve, open or otherwise manipulate tablet/capsule., Indications: Stress Ulcer Prophylaxis, GERDIndications:Stress Ulcer Prophylaxis,GERD Given 12/09/2024 9:4 0 AM COSTUME DRAPER 40 mg Given 12/08/2024 8:23 AM COSTUME DRAPER 40 mg Given 12/07/2024 8:18 AM COSTUME DRAPER 40 mg peg [id number] (ARTIFICAL TEARS) 1-0.2-0.2 % ophthalmic solution 1 drop 1 drop, each eye, 4 times daily PRN, dry eyes, Starting on 12/04/24 at 1550 Given 12/08/2024 4:37 PM COSTUME DRAPER 1 drop pregabalin (LYRICA) capsule 75 mg 75 mg, oral, 2 times daily, First dose on Fri12/04/24 at 2100 Given 12/09/2024 9:41 AM COSTUME DRAPER 75 mg Given 12/08/2024 8:55 PM COSTUME DRAPER 75 mg Given 12/08/2024 8:22 AM COSTUME DRAPER 75 mg rizatriptan (MAXALT) tablet 10 mg 10 mg, oral, Every 2 hours PRN, migraine, Starting on Fri12/07/24 at 1346, May repeat dose once in 2 hours if unresolved. Do not exceed 30 mg in 24 hours. This patient supplied medication is approved for inpatient use. Please obtain from the patient specific bin (non-refrigerated) , Indications: MigraineIndications:Migraine rOPINIRole (REQUIP) tablet 0.25 mg 0.25 mg, oral, Nightly, First dose on Fri12/04/24 at 2100 Given 12/08/2024 8:54 PM COSTUME DRAPER 0.25 mg Given 12/07/2024 8:21 PM COSTUME DRAPER 0.25 mg Given 12/06/2024 8:50 PM COSTUME DRAPER 0.25 mg sacubitriL-valsartan (ENTRESTO) 24-26 mg tablet 0.5 tablet 0.5 tablet, oral, 2 times daily, First dose on Fri12/05/24 at 0900 Given 12/09/2024 9:39 AM COSTUME DRAPER 0.5 tablets Given 12/08/2024 8:56 PM COSTUME DRAPER 0.5 tablets Given 12/08/2024 8:22 AM COSTUME DRAPER 0.5 tablets senna-docusate (PERICOLACE) 8.6-50 mg per tablet 1 tablet 1 tablet, oral, 2 times daily, First dose on Fri12/05/24 at 0900 Given 12/08/2024 8:55 PM COSTUME DRAPER 1 tablet Given 12/06/2024 8:50 PM COSTUME DRAPER 1 tablet Given 12/06/2024 7:57 AM COSTUME DRAPER 1 tablet sodium chloride 0.9% flush 0.5-20 mL 0.5-20 mL, intra-catheter, Every 12 hours, First dose on [facility] 12/09/24 at 1000, Flush volume based on line type and size. Given 12/09/2024 9:44 AM COSTUME DRAPER 10 mL sodium chloride 0.9% flush 0.5-20 mL 0.5-20 mL, intra-catheter, As needed, line care, Starting on Sammi 12/09/24 at 0806, Flush volume based on line type and size. Flush before and after each use. spironolactone (ALDACTONE) tablet 25 mg 25 mg, oral, Daily, First dose on [place] 12/05/24 at 0900 Given 12/09/2024 9:41 AM COSTUME DRAPER 25 mg Given 12/08/2024 8:24 AM COSTUME DRAPER 25 mg Given 12/07/2024 8:19 AM COSTUME DRAPER 25 mg vancomycin (VANCOCIN) capsule 125 mg 125 mg, oral, Every 6 hours scheduled, First dose (after last modification) on [place] 12/05/24 at 1800, For 10 days, Do not crush, chew, cut, dissolve, open or otherwise manipulate tablet/capsule., Indications: Clostridioides difficile infectionIndications:Clostridioides difficile infection Given 12/09/2024 12:35 PM COSTUME DRAPER 125 mg Given 12/09/2024 5:39 AM COSTUME DRAPER 125 mg Given 12/09/2024 12:15 AM COSTUME DRAPER 125 mg warfarin (COUMADIN) tablet 2 mg 2 mg, oral, Daily (for warfarin), First dose (after last modification) on Fri12/08/24 at 1800, Target INR: 2 - 3, Indications: LV thrombusIndications:LV thrombus Given 12/08/2024 5:52 PM COSTUME DRAPER 2 mg Inactive Administered Medications - up to 3 most recent administrations Medication Order MAR Action Action Date Dose Rate Site heparin 5,000 unit/mL injection 2,000 Units 2,000 Units, intravenous, Once, On [place] 12/05/24 at 0015, For 1 dose, , Indications: Acute Coronary SyndromeIndications:A cute Coronary Syndrome Given 12/05/2024 12:12 AM COSTUME DRAPER 2,000 Units heparin in 0.45% sodium chloride 25,000 units/250 mL (100 units/mL) infusion (premix) 14 Units/kg/hr 62.1 kg (8.694 mL/hr, rounded to 8.69 mL/hr), intravenous, Continuous, Starting on 12/04/24 at 1615, WEIGHT-BASED HEPARIN INFUSION Units/kg/hr. Max initial dose: 1,000 units/hr. , Indications: Acute Coronary SyndromeIndications:A cute Coronary Syndrome Rate/Dose Change 12/05/2024 12:13 AM COSTUME DRAPER 14 Units/kg/hr 8.69 mL/hr New Bag 12/04/2024 5:12 PM COSTUME DRAPER 12 Units/kg/hr 7.45 mL/h r insulin lispro (HumaLOG, ADMELOG) 100 unit/mL injection 0-4 Units 0-4 Units, subcutaneous, Nightly, First dose on 12/04/24 at 2230, Blood glucose mg/dL: 199 or less: No insulin 200-249: add 1 unit 250-299: add 2 units 300-349: add 3 units and notify physician for adjustment of insulin orders. 350-399: add 4 units and notify physician for adjustment of insulin orders. Over 400: Notify physician for adjustment of insulin orders. Do NOT hold for NPO Status, Indications: Diabetes MellitusIndications:Diabetes Mellitus Given 12/06/2024 8:56 PM COSTUME DRAPER 1 Units Left Upper Arm Given 12/05/2024 8:41 PM COSTUME DRAPER 2 Units Ri ght Upper Arm Given 12/04/2024 10:17 PM COSTUME DRAPER 2 Units L eft Upper Abdomen insulin lispro (HumaLOG, ADMELOG) 100 unit/mL injection 0-5 Units 0-5 Units, subcutaneous, 3 times daily with meals, First dose on 12/04/24 at 1800, Blood glucose mg/dL: 149 or less: No [...] NPO Status, Indications: Diabetes MellitusIndications:Diabetes Mellitus Given 12/04/2024 5:20 PM COSTUME DRAPER 5 Units Left Upper Arm insulin lispro (HumaLOG, ADMELOG) 100 unit/mL injection 0-5 Units 0-5 Units, subcutaneous, 3 times daily with meals, First dose on 12/06/24 at 1845, Blood glucose mg/dL: 149 or less: No [...] NPO Status, Indications: Diabetes MellitusIndications:Diabetes Mellitus Given 12/08/2024 1:02 PM COSTUME DRAPER 3 Units Left Lower Abdomen Given 12/08/2024 8:23 AM COSTUME DRAPER 2 Units Le ft Upper Arm Given 12/07/2024 5:20 PM COSTUME DRAPER 2 Units Le ft Lower Abdomen insulin lispro (HumaLOG, ADMELOG) 100 unit/mL injection 15 Units 15 Units, subcutaneous, 3 times daily with meals, First dose on 12/04/24 at 1815, Administer pre-meal doses when pts food tray arrives in room. Do not administer pre-meal doses to NPO patients. Given 12/06/2024 5:07 PM COSTUME DRAPER 15 Units Left Lower Abdomen Given 12/06/2024 12:42 PM COSTUME DRAPER 15 Units L eft Upper Arm Given 12/06/2024 8:06 AM COSTUME DRAPER 15 Units Le ft Lower Abdomen insulin lispro (HumaLOG, ADMELOG) 100 unit/mL injection 3 Units 3 Units, subcutaneous, Once, On 12/05/24 at 0345, For 1 dose Given 12/05/2024 3:11 AM COSTUME DRAPER 3 Units Left Upper Arm insulin lispro (HumaLOG, ADMELOG) 100 unit/mL injection 4 Units 4 Units, subcutaneous, Once, On Sammi 12/09/24 at 0300, For 1 dose Given 12/09/2024 2:58 AM COSTUME DRAPER 4 Units Right Lower Abdomen lidocaine (LIDODERM) 5 % patch 1 patch 1 patch, transdermal, Administer over 12 Hours, Every 24 hours, First dose on 12/05/24 at 1615, Do not cover the holes on the top side of the patch., Apply to affected area: chest Medication Applied 12/05/2024 5:33 PM COSTUME DRAPER 1 patch Chest metoprolol tartrate (LOPRESSOR) immediate release tablet 12.5 mg 12.5 mg, oral, 2 times daily, First dose on 12/04/24 at 2100 Given 12/04/2024 8:53 PM COSTUME DRAPER 12.5 mg morphine injection 2 mg 2 mg, intravenous, Administer over 4 Minutes, Every 3 hours PRN, 2nd line for pain, chest pain, Starting on 12/04/24 at 1611 Given 12/04/2024 8:53 PM COSTUME DRAPER 2 mg Given 12/04/2024 5:20 PM COSTUME DRAPER 2 mg oxyCODONE (ROXICODONE) tablet 10 mg 10 mg, oral, Every 6 hours PRN, 2nd line for pain, Starting on 12/04/24 at 2331 Given 12/06/2024 6:08 AM COSTUME DRAPER 10 mg Given 12/06/2024 12:03 AM COSTUME DRAPER 10 mg Given 12/05/2024 5:33 PM COSTUME DRAPER 10 mg warfarin (COUMADIN) tablet 3 mg 3 mg, oral, Daily (for warfarin), First dose on 12/05/24 at 1800, Target INR: 2 - 3, Indications: LV thrombusIndications:LV thrombus Given 12/07/2024 5 :20 PM COSTUME DRAPER 3 mg Given 12/06/2024 5:06 PM COSTUME DRAPER 3 mg Given 12/05/2024 5:33 PM COSTUME DRAPER 3 mg documented in this encounter Discontinued Medications Medication Sig Discontinue Reason Start Date End Da te pantoprazole DR (PROTONIX) 40 mg EC tablet TAKE 1 TABLET(40 MG) BY MOUTH DAILY Alternate therapy 09/20/2024 12/04/2024 insulin glargine 100 unit/mL (3 mL) pen for injection Inject 27 Units under the skin daily before breakfast Alternate therapy 11/30/2024 12/04/2024 oxyCODONE (ROXICODONE) 10 mg tablet Take 1 tablet (10 mg total) by mouth every 6 (six) hours as needed for pain 11/24/2024 12/09/[address] (CYMBALTA) 60 mg capsule Take 1 capsule (60 mg total) by mouth daily Stop Taking at Discharge 07/03/2023 12/09/2024 teriparatide (FORTEO) 20 mcg/dose (600mcg/2.4mL) injectionIndications:p ostmenopausal osteoporosis and high fracture risk Inject 0.08 mL (20 mcg total) under the skin daily on abdomen or thigh. Lie down 10 minutes after injection. Stop Taking at Discharge 11/05/2024 12/09/2024 warfarin (COUMADIN) 3 mg tabletIndications:LV thrombus Take 1 tablet (3 mg total) by mouth daily Stop Taking at Discharge 11/30/2024 12/09/2024 insulin lispro (HumaLOG, ADMELOG) 100 unit/mL pen for injection Inject 15 Units under the skin 3 (three) times a day with meals Lispro 15 units three times daily with meals + correction 2 units for every 50 points greater than 150 mg/dl Stop Taking at Discharge 11/30/2024 12/09/2024 documented as of this encounter Historical Medications * This list may reflect changes made after this encounter. insulin glargine 100 unit/mL vial for injection Inject 35 Units under the skin daily empagliflozin (JARDIANCE) 10 mg tablet Take 1 tablet (10 mg total) by mouth daily alendronate (FOSAMAX) 70 mg tablet Take 1 tablet (70 mg total) by mouth every 7 days Take in the morning with a full glass of water, on an empty stomach, and do not take anything else by mouth or lie down for the next [address] (PROTONIX) 40 mg EC tablet Take 1 tablet (40 mg total) by mouth 2 (two) times a day added in this encounter Active and Recently Administered Medications Times are shown in COSTUME [employer]APER. Scheduled Medication Order 12/07/2024 12/08/2024 12/09/2024 amiodarone (PACERONE) tablet 200 mg 200 mg, oral, Daily, First dose on 12/04/24 at 1630 0818 (Given - Provider: Radha Sanabria RN) 0824 (Given - Provider: Arelis Suarez, RAMYA) 0940 (Given - Provider: Rebeca Valenzuela, RN) aspirin enteric coated tablet 81 mg 81 mg, oral, Daily, First dose on 12/05/24 at 0900, Do not crush, chew, cut, dissolve, open or otherwise manipulate tablet/capsule., Indications: myocardial infarction prevention 0818 (Given - Provider: Radha Sanabria RN) 0823 (Given - Provider: Arelis Suarez, RAMYA) 0940 (Given - Provider: Rebeca Valenzuela, RN) atorvastatin (LIPITOR) tablet 20 mg 20 mg, oral, Daily, First dose on 12/04/24 at 1630 0817 (Given - Provider: Radha Sanabria RN) 0824 (Given - Provider: Arelis Suarez, RAMYA) 0939 (Given - Provider: Rebeca Valenzuela, RAMYA) DULoxetine DR (CYMBALTA) extended release capsule 60 mg 60 mg, oral, Daily, First dose on 12/05/24 at 0900, Capsule may be opened and contents mixed with applesauce or apple juice ONLY. Do not crush or chew capsule 0818 (Given - Provider: Radha Sanabria RN) 0823 (Given - Provider: Arelis Suarez, RAMYA) 0940 (Given - Provider: Rebeca Valenzuela, RAMYA) empagliflozin (JARDIANCE) tablet 10 mg 10 mg, oral, Daily, First dose on 12/05/24 at 0900, I /authorizing provider attest that the patient meets the approved [facility] Use Criteria: Yes, Approving Provider: Dorys, Indications: heart failure associated with type 2 diabetes mellitus 0824 (Given - Provider: Radha Sanabria RN) 0825 (Given - Provider: Arelis Suarez, RAMYA) 0939 (Given - Provider: Rebeca Valenzuela, RN) furosemide (LASIX) tablet 40 mg 40 mg, oral, 2 times daily (for diuretics), First dose on 12/05/24 at 0900 0819 (Given - Provider: Radha Sanabria RN)1542 (Given - Provider: Radha Sanabria RN) 0825 (Given - Provider: Arelis Suarez, RAMYA)1432 (Given - Provider: Arelis Suarez, RAMYA) 0940 (Given - Provider: Rebeca Valenzuela, RN)1513 (Given - Provider: Rebeca Valenzuela, RN) insulin glargine (LANTUS, SEMGLEE) 100 unit/mL injection 35 Units 35 Units, subcutaneous, Every morning, First dose on 12/04/24 at 1830, Do not mix with other insulins 0817 (Given - Provider: Radha Sanabria RN) 0824 (Given - Provider: Arelis Suarez, RAMYA) 0941 (Given - Provider: Rebeca Valenzuela, RAMYA) insulin lispro (HumaLOG, ADMELOG) 100 unit/mL injection 0-10 Units 0-10 Units, subcutaneous, 3 times daily with meals, First dose on Fri12/08/24 at 1800, Blood glucose mg/dL: 149 or less: No insulin 150-199: add 2 unit 200-249: add 4 units 250-299: add 6 units 300-349: add 8 units and notify physician for adjustment of insulin orders. 350-399: add 10 units and notify physician for adjustment of insulin orders. Over 400: Notify physician for adjustment of insulin orders. Do NOT hold for NPO Status, Indications: Diabetes Mellitus 1744 (Not Given - Provider: Arelis Suarez, RAMYA - Reason: Order parameters not met) 0941 (Given - Provider: Rebeca Valenzuela, RAMYA)1235 (Given - Provider: Rebeca Valenzuela, RAMYA)1800 (Due) insulin lispro (HumaLOG, ADMELOG) 100 unit/mL injection 0-5 Units (CANCELED) 0-5 Units, subcutaneous, 3 times daily with meals, First dose on Fri12/06/24 at 1845, Blood glucose mg/dL: 149 or less: No insulin 150-199: add 1 unit 200-249: add 2 units 250-299: add 3 units 300-349: add 4 units and notify physician for adjustment of insulin orders. 350-399: add 5 units and notify physician for adjustment of insulin orders. Over 400: Notify physician for adjustment of insulin orders. Do NOT hold for NPO Status, Indications: Diabetes Mellitus 0817 (Given - Provider: Radha Sanabria, RN)1207 (Given - Provider: Radha Sanabria, RN)1720 (Given - Provider: Radha Sanabria, RN) 0823 (Given - Provider: Arelis Suarez, RAMYA)1302 (Given - Provider: Arelis Suarez, RAMYA) insulin lispro (HumaLOG, ADMELOG) 100 unit/mL injection 0-5 Units 0-5 Units, subcutaneous, Nightly, First dose on Fri12/08/24 at 2100, Blood glucose mg/dL: 149 or [...] hold for NPO Status, Indications: Diabetes Mellitus 2057 (Not Given - Provider: Dawn Ojeda RN - Reason: Order parameters not met) 2100 (Due) insulin lispro (HumaLOG, ADMELOG) 100 unit/mL injection 17 Units 17 Units, subcutaneous, 3 times daily with meals, First dose (after last modification) on Fri12/07/24 at 0800, Administer pre-meal doses when pts food tray arrives in room. Do not administer pre-meal doses to NPO patients. 0817 (Given - Provider: Radha Sanabria RN)1207 (Given - Provider: Radha Sanabria RN)1719 (Given - Provider: Radha Sanabria RN) 0822 (Given - Provider: Arelis Suarez RN)1217 (Given - Provider: Arelis Suarez, RAMYA)1752 (Given - Provider: Arelis Suarez, RAMYA) 0944 (Given - Provider: Rebeca Valenzuela, RAMYA)1235 (Given - Provider: Rebeca Valenzuela, RAMYA)1800 (Due) insulin lispro (HumaLOG, ADMELOG) 100 unit/mL injection 4 Units (COMPLETED) 4 Units, subcutaneous, Once, On Fri12/09/24 at 0300, For 1 dose 0258 (Given - Provider: Dawn Ojeda RN) levothyroxine (SYNTHROID) tablet 125 mcg 125 mcg, oral, Daily (early AM), First dose on Fri12/05/24 at 0600, Administer on an empty stomach, preferably 30 minutes before breakfast. Take 4 hours apart from antacids, iron and calcium products. Separate from tube feeds, if applicable. 0503 (Given - Provider: Dorie Schmid RN) 0545 (Given - Provider: César Boone RN) 0539 (Given - Provider: Dawn Ojeda RN) lidocaine (LIDODERM) 5 % patch 2 patch 2 patch, transdermal, Administer over 12 Hours, Every 24 hours, First dose on 12/06/24 at 1400, Do not cover the holes on the top side of the patch., Apply to affected area: back, chest 0102 (Medication Removed - Provider: Doire Schmid RN)1314 (Medication Applied - Provider: Radha Sanabria RN - Comment: abdomen and back) 0108 (Medication Removed - Provider: César Boone, RN)1217 (Medication Applied - Provider: Arelis Suarez, RAMYA - Comment: mid back and chest) 0015 (Medication Removed - Provider: Dawn Ojeda, RAMYA)1236 (Medication Applied - Provider: Rebeca Valenzuela, RAMYA - Comment: and back) metoprolol tartrate (LOPRESSOR) immediate release tablet 12.5 mg 12.5 mg, oral, 2 times daily, First dose on 12/05/24 at 0900 0818 (Given - Provider: Radha Sanabria RN)2020 (Given - Provider: César Boone RN) 0823 (Given - Provider: Arelis Suarez, RAMYA)205 (Given - Provider: Dawn Ojeda, RAMYA) 0940 (Given - Provider: Rebeca Valenzuela, RN)2100 (Due) midodrine (PROAMATINE) tablet 10 mg 10 mg, oral, 3 times daily before meals, First dose on 12/05/24 at 0730 0818 (Given - Provider: Radha Sanabria RN)1207 (Given - Provider: Radha Sanabria RN)1720 (Given - Provider: Radha Sanabria RN) 0823 (Given - Provider: Arelis Suarez, RAMYA)1217 (Given - Provider: Arelis Suarez, RAMYA)1638 (Given - Provider: Arelis Suarez, RAMYA) 0542 (Given - Provider: Dawn Ojeda RN)1235 (Given - Provider: Rebeca Valenzuela, RAMYA)1730 (Due) mirtazapine (REMERON RAOUL-TAB) disintegrating tablet 15 mg 15 mg, oral, Nightly, First dose on 12/04/24 at 2100, If administering by mouth, place tablet on tongue and allow to dissolve. 2021 (Given - Provider: César Boone, RAMYA) 2055 (Given - Provider: Dawn Ojeda, RAMYA) 2099 (Due) pantoprazole DR (PROTONIX) extended release tablet 40 mg 40 mg, oral, Daily, First dose on 12/04/24 at 1630, Do not crush, chew, cut, dissolve, open or otherwise manipulate tablet/capsule., Indications: Stress Ulcer Prophylaxis, GERD 817 (Given - Provider: Radha Sanabria RN) 822 (Given - Provider: Arelis Suarez, RAMYA) 09 (Given - Provider: Rebeca Valenzuela, RN) pregabalin (LYRICA) capsule 75 mg 75 mg, oral, 2 times daily, First dose on 12/04/24 at 2099 817 (Given - Provider: Radha Sanabria, RAMYA)2021 (Given - Provider: César Boone, RAMYA) 821 (Given - Provider: Arelis Suarez, RAMYA)2054 (Given - Provider: Dawn Ojeda RN) 0941 (Given - Provider: Rebeca Valenzuela, RN)2099 (Due) rOPINIRole (REQUIP) tablet 0.25 mg 0.25 mg, oral, Nightly, First dose on 12/04/24 at 2099 2020 (Given - Provider: César Boone, RAMYA) 2053 (Given - Provider: Dawn Ojeda RN) 2099 (Due) sacubitriL-valsartan (ENTRESTO) 24-26 mg tablet 0.5 tablet 0.5 tablet, oral, 2 times daily, First dose on 12/05/24 at 0900 0817 (Given - Provider: Radha Sanabria, RAMYA)2020 (Given - Provider: César Boone RN) 821 (Given - Provider: Arelis Suarez, RAMYA)2055 (Given - Provider: Dawn Ojeda RN) 0939 (Given - Provider: Rebeca Valenzuela, RAMYA)2099 (Due) senna-docusate (PERICOLACE) 8.6-50 mg per tablet 1 tablet 1 tablet, oral, 2 times daily, First dose on 12/05/24 at 0900 0824 (Not Given - Provider: Radha Sanabria RN - Reason: Patient/family refused)2020 (Not Given - Provider: César Boone RN - Reason: Patient/family refused) 0824 (Not Given - Provider: Arelis Suarez, RAMYA - Reason: Patient/family refused)2054 (Given - Provider: Dawn Ojeda, RN) 0940 (Not Given - Provider: Rebeca Valenzuela RN - Reason: Patient/family refused)2100 (Due) sodium chloride 0.9% flush 0.5-20 mL 0.5-20 mL, intra-catheter, Every 12 hours, First dose on [facility] 12/09/24 at 1000, Flush volume based on line type and size. 0944 (Given - Provider: Rebeca Valenzuela, RAMYA)2200 (Due) spironolactone (ALDACTONE) tablet 25 mg 25 mg, oral, Daily, First dose on [place] 12/05/24 at 0900 0819 (Given - Provider: Radha Sanabria RN) 0824 (Given - Provider: Arelis Suarez, RAMYA) 0941 (Given - Provider: Rebeca Valenzuela, RAMYA) vancomycin (VANCOCIN) capsule 125 mg 125 mg, oral, Every 6 hours scheduled, First dose (after last modification) on [place] 12/05/24 at 1800, For 10 days, Do not crush, chew, cut, dissolve, open or otherwise manipulate tablet/capsule., Indications: Clostridioides difficile infection 0101 (Given - Provider: Dorie Schmid RN)0503 (Given - Provider: Dorie Schmid RN)1207 (Given - Provider: Rahda Sanabria, RAMYA)1720 (Given - Provider: Radha Sanabria, RAMYA) 0059 (Given - Provider: César Boone, RAMYA)0545 (Given - Provider: César Boone RN)1217 (Given - Provider: Arelis Suarez, RAMYA)1752 (Given - Provider: Arelis Suarez, RN) 0015 (Given - Provider: Dawn Ojeda RN)0539 (Given - Provider: Dawn Ojeda RN)1235 (Given - Provider: Rebeca Valenzuela, RAMYA)1800 (Due) warfarin (COUMADIN) tablet 2 mg 2 mg, oral, Daily (for warfarin), First dose (after last modification) on Fri12/08/24 at 1800, Target INR: 2 - 3, Indications: LV thrombus 1752 (Given - Provider: Arelis Suarez, RAMYA) 1800 (Due) warfarin (COUMADIN) tablet 3 mg (CANCELED) 3 mg, oral, Daily (for warfarin), First dose on Fri12/05/24 at 1800, Target INR: 2 - 3, Indications: LV thrombus 1720 (Given - Provider: Radha Sanabria, RAMYA) PRN Medication Order 12/07/2024 12/08/2024 12/09/2024 acetaminophen (TYLENOL) tablet 650 mg 650 mg, oral, Every 6 hours PRN, 1st line for pain, headaches, Starting on 12/04/24 at 1611 0341 (Given - Provider: Dorie Schmid RN)1542 (Given - Provider: Radha Sanabria RN) 0059 (Given - Provider: César Boone RN)0704 (Given - Provider: César Boone, RAMYA)1432 (Given - Provider: Arelis Suarez, RAMYA) 1301 (Given - Provider: Rebeca Valenzuela, RAMYA) cyclobenzaprine (FLEXERIL) tablet 10 mg 10 mg, oral, 3 times daily PRN, muscle spasms, Starting on 12/04/24 at 2330 0341 (Given - Provider: Dorie Schmid RN)1542 (Given - Provider: Radha Sanabria RN) 0059 (Given - Provider: César Boone RN)0822 (Given - Provider: Arelis Suarez, RAMYA)1432 (Given - Provider: Arelis Suarez, RAMYA) 0539 (Given - Provider: Dawn Ojeda RN)1301 (Given - Provider: Rebeca Valenzuela, RAMYA) dextrose (D10W) 10% bolus 250 mL(Linked Group 1) 250 mL, intravenous, at 1,000 mL/hr, Administer over 15 Minutes, Every 15 min PRN, blood glucose less than 70 mg/dL and UNABLE to swallow/take PO glucose/juice., Starting on Fri12/06/24 at 1802, After treatment for hypoglycemia, recheck BG followed [...] glucose less than 70 mg/dL, Starting on Fri12/06/24 at 1802, If patient is alert and able to [...] unable to take PO glucose/juice., Starting on Fri12/06/24 at 1802, After Glucagon is administered, position patient on [...] mL SWFI. Use immediately following reconstitution. insulin lispro (HumaLOG, ADMELOG) 100 unit/mL injection 7 Units 7 Units, subcutaneous, 4 times daily PRN, w/ snacks, Starting on 12/04/24 at 1755, Administer pre-meal doses when pts food tray arrives in room. Do not administer pre-meal doses to NPO patients. nitroglycerin (NITROSTAT) sublingual tablet 0.4 mg 0.4 mg, sublingual, Every 5 min PRN, chest pain, Starting on 12/04/24 at 1538, For 3 doses, Notify MD and obtain EKG if no relief after 3 doses or angina recurs. HOLD and notify MD if SBP less than 90 mmHg. , Indications: Angina ondansetron (ZOFRAN) tablet 4 mg 4 mg, oral, Every 8 hours PRN, nausea, vomiting, Starting on 12/05/24 at 0134 oxyCODONE (ROXICODONE) tablet 10 mg 10 mg, oral, Every 4 hours PRN, 2nd line for pain, Starting on 12/06/24 at 0759 0101 (Given - Provider: Dorie Schmid RN)0503 (Given - Provider: Dorie Schmid RN)0844 (Given - Provider: Radha Sanabria, RAMYA)1314 (Given - Provider: Radha Sanabria RN)1722 (Given - Provider: Radha Sanabria, RAMYA)2136 (Given - Provider: César Boone RN) 0348 (Given - Provider: César Boone RN)0822 (Given - Provider: Arelis Suarez, RAMYA)1217 (Given - Provider: Arelis Suarez, RAMYA)1638 (Given - Provider: Arelis Suarez, RAMYA)2057 (Given - Provider: Dawn Ojeda RN) 0015 (Given - Provider: Dawn Ojeda RN)0539 (Given - Provider: Dawn Ojeda RN)1524 (Given - Provider: Rebeca Valenzuela RN) peg 950-rjyoahbebllq-ryzkgq in (ARTIFICAL TEARS) 1-0.2-0.2 % ophthalmic solution 1 drop 1 drop, each eye, 4 times daily PRN, dry eyes, Starting on 12/04/24 at 1550 1637 (Given - Provider: Arelis Suarez, RAMYA) rizatriptan (MAXALT) tablet 10 mg 10 mg, oral, Every 2 hours PRN, migraine, Starting on Fri12/07/24 at 1346, May repeat dose once in 2 hours if unresolved. Do not exceed 30 mg in 24 hours. This patient supplied medication is approved for inpatient use. Please obtain from the patient specific bin (non-refrigerated) , Indications: Migraine sodium chloride 0.9% flush 0.5-20 mL 0.5-20 mL, intra-catheter, As needed, line care, Starting on Sammi 12/09/24 at 0806, Flush volume based on line type and size. Flush before and after each use. Linked Groups Order Group 1: dextrose gel in packet 15 gJump to med 15 g, oral, Every 15 min PRN, low blood sugar, blood glucose less than 70 mg/dL, Starting on Fri12/06/24 at 1802, If patient is alert and able to [...] UNABLE to swallow/take PO glucose/juice., Starting on Fri12/06/24 at 1802, After treatment for hypoglycemia, recheck BG followed [...] Count Last Ordered Date First Ordered Date sodium chloride 0.9% flush 0.5-20 mL 1 11/14 insulin lispro (HumaLOG, ADM ELOG) 100 unit/mL injection 0-5 Units 1 12/08/2024 rizatriptan (MAXALT) tablet 10 mg 1 025 rizatriptan THERAPEUTIC RIDING INSTRUCTOR (MAXALT-THERAPEUTIC RIDING INSTRUCTOR) disintegrating tablet 10 mg - Patient Supplied Medication 12/07/2024 dextrose (D10W) 10% bolus 250 mL 2 12/06/19 25 12/04/2024 dextrose gel in packet 15 g 2 12/06/2024 12/04/2024 glucagon injection 1 mg 2 12/06/202411/14 insulin lispro (HumaLOG, ADM ELOG) 100 unit/mL injection 0-4 Units 2 12/06/2024 12/04/2024 mirtazapine (REMERON RAOUL-TAB ) disintegrating tablet 15 mg 1 12/05/2024 ondansetron (ZOFRAN) tablet 4 mg 1 12/05/[address] (PROTONIX) e xtended release tablet 40 mg 1 12/05/2024 pregabalin (LYRICA) capsule 75 mg 1 025 rOPINIRole (REQUIP) tablet 0.25 mg 1 2024 vancomycin (VANCOCIN) capsule 125 mg 1 11/14 heparin 5,000 unit/mL inject ion 3,750 Units 1 12/04/2024 insulin lispro (HumaLOG, ADM ELOG) 100 unit/mL injection 7 Units 1 12/04/2024 levothyroxine (SYNTHROID) tablet 125 mcg 1 12/04/2024 morphine injection 2 mg 1 12/04/2024 nitroglycerin (NITROSTAT) manuel blingual tablet 0.4 mg 1 12/04/2024 oxyCODONE (ROXICODONE) tablet 10 mg 1 12/04 sacubitriL-valsartan (ENTRES TO) 24-26 mg tablet 0.5 tablet 1 12/04/2024 Lab Orders Without Results Count Last Ordered D ate First Ordered Date POCT GLUCOSE DEVICE 3 12/09/2024 12/06/19 EKG Orders Without Results Count Last Ordered D ate First Ordered Date ECG 12-LEAD 1 12/04/2024 Diet Count Last Ordered Date First Orde red Date ADULT DIET 1 12/09/2024 ADULT DISCHARGE DIET 1 12/09/2024 Nursing Count Last Ordered Date First Orde red Date DISCHARGE ACTIVITY 1 12/09/2024 DISCHARGE CALL PROVIDER 6 12/09/2024 FOLLOW UP WITH ESTABLISHED PROVIDER 1 12/09 NOTIFY PROVIDER (SPECIFY) 5 12/06/2024 NURSING COMMUNICATION 2 12/06/2024 CAPNOGRAPHY MONITORING 1 12/04/2024 DAILY WEIGHTS 1 12/04/2024 TELEMETRY MONITORING 1 12/04/2024 VITAL SIGNS 1 12/04/2024 Code Status Count Last Ordered Date First Orde red Date LIMITED CODE 1 12/05/2024 Consult Count Last Ordered Date First Orde red Date AUTHORIZATION FOR POST-ACUTE CARE 1 025 IP CONSULT TO PALLIATIVE CARE 1 12/07/2024 IP CONSULT TO SOCIAL WORK 1 12/05/2024 IP CONSULT TO CARDIOLOGY 1 12/04/2024 Isolation Count Last Ordered Date First Orde red Date INITIATE CONTACT ISOLATION 1 12/05/2024 Nourishments Count Last Ordered Date First Orde red Date SNACKS 1 12/04/2024 OT Count Last Ordered Date First Orde red Date OT EVALUATE AND TREAT 1 12/06/2024 PT Count Last Ordered Date First Orde red Date PT EVALUATE AND TREAT 1 12/06/2024 Admission Count Last Ordered Date First Orde red Date ADMIT TO INPATIENT 1 12/04/2024 Discharge Count Last Ordered Date First Orde red Date DISCHARGE PATIENT 1 12/09/2024 Precaution Count Last Ordered Date First Orde red Date FALL PRECAUTIONS 1 12/04/2024 documented in this encounter Additional Health Concerns Infection Onset Date Last Indicated Resolved Time CRE Comment:Contact Precautions (gown and gloves) RAMYA Au 09/25/22 08/16/2022 08/16/2022 MDR gram neg/ESBL Comment:Contact Precautions (gown and gloves) RAMYA Au 09/25/22 08/16/2022 08/16/2022 C. difficile 12/04/2024 12/04/2024 documented as of this encounter Care Teams Quail Farmer Relationship Specialty Start Date End Date Armida Hays MD [address] [facility] [address] [address] PCP - General Internal Medicine 08/18/24 Kingston Jain DO [address] [place] [address] DR GRAHAM [address] [place] [id number] Consulting Physician Cardiovascular Disease 06/20/20 Candido Lobato MD [address] [facility], [place] [address] [place] [address] Medical Oncology 05/02/23 [place] [address] [facility] [address] [place] [address] Physician Hydraulic Press In Operator Orthopedic Surgery 06/16/24 documented as of this encounter
--- OUTSIDE RECORDS SUMMARY | 2024-12-09 18:04 | XMS_ITS | Encounter Summary ---
Author Organization [facility] Address [address] [place] [address] Phone Care Team Providers Care Hr Clerk Name Role Phone Gilda Marques MD Primary Care Provider + [phone] Juni Hays MD Primary Care Provider [phone] Shivam Benedict MD Unavailable Radha Crews [facility] Unavailable + [phone] Sacha Penn MD Unavailable [phone] Reason for Visit * Reason Comments Medication Refill Encounter Details Date Type Department Care Team (Late st Contact Info) Description 02/24/2020 Refill [facility] - Neurology - [place] [address] [facility] [place] [address] Sacha Penn MD [address] [place] [address] Medication Refill Social History Tobacco [...] on filedocumented in this encounter Care Teams Hr Clerk Relationship Specialty Start Date End Date Gilda Marques MD [address] [facility] [address] [place] [address] PCP - General Family Medicine 07/13/18 10/16/20 Juni Hays MD [address] [facility] [address] [place] [address] PCP - General Internal Medicine 10/17/20 Shivam Benedict MD [address] [place] [address] Consulting Physician Pulmonary Disease 12/27/21 Radha Crews APRN, MARKET RESEARCH ANALYST [address] [place] [address] Nurse Practitioner Advanced Practice Nurse 01/04/22 Sacha Penn MD [address] [place] [address] Consulting Physician Neurology 07/25/23 documented as of this encounter
--- OUTSIDE RECORDS SUMMARY | 2024-12-09 18:04 | XMS_ITS | Clinical Summary ---
[facility] Address [address] [place] [address] Care Team Providers Care Gas Engine Performance Engineer Name Role Phone Unavailable Primary Care Provider [...] on file. Referring Provider: Essie Paul DO [facility] [address] [place] [id number] Other: No known active problems Family History [...]
[2024-12-09 18:18] VITALS: BMI 23.4
[2024-12-09 20:00] VITALS: PULSE 80; RESP 17; O2SAT 100
[2024-12-09 20:07] VITALS: PULSE 80; RESP 17; O2SAT 100
[2024-12-09] MEDS: MIRTAZAPINE 15 MG TABLET PO (21:50)
[2024-12-09] MEDS: rOPINIRole HCL 0.25 MG TABLET PO (21:50)
[2024-12-09 21:51] VITALS: PULSE 80
[2024-12-09] MEDS: PANTOPRAZOLE 40 MG TABLET PO (21:51)
[2024-12-09] MEDS: oxyCODONE HCL (*CRX) 5 MG TAB IR PO (21:51)
[2024-12-09] MEDS: CYCLOBENZAPRINE HCL 10 MG TABLET PO (21:51)
[2024-12-09] MEDS: METOPROLOL TARTRATE 12.5 MG TABLET PO (21:51)
[2024-12-09] MEDS: VANCOMYCIN HCL 125 MG ORAL CAPSULE PO (21:52)
[2024-12-09] MEDS: SPIRONOLACTONE 25 MG TABLET PO (21:52)
[2024-12-09] MEDS: SACUBITRIL/VALSARTAN 24-26 MG TABLET 0.5 TAB PO (21:52)
[2024-12-09 21:55] LABS: Glucose Point of Care 260 mg/dl (65-105)
[2024-12-10] VITALS (7 sets, daily range): BP systolic 104–130; BP diastolic 55–76; PULSE 68–104; RESP 14–17; TEMP 36–36.5; O2SAT 97–100
[2024-12-10] MEDS: oxyCODONE HCL (*CRX) 5 MG TAB IR PO ×2 (03:01→08:46)
[2024-12-10] MEDS: ACETAMINOPHEN 325 MG TABLET 650 MG PO ×3 (05:54→23:47)
[2024-12-10] MEDS: LEVOTHYROXINE SODIUM 25 MCG TABLET PO (05:55)
[2024-12-10] MEDS: LEVOTHYROXINE SODIUM 100 MCG TABLET PO (05:55)
[2024-12-10] MEDS: VANCOMYCIN HCL 125 MG ORAL CAPSULE PO ×4 (05:55→23:44)
[2024-12-10 07:43] LABS: Glucose Point of Care 352 mg/dl (65-105)
[2024-12-10 08:34] LABS: Hematocrit 36.2 % (35.0-49.0); Hemoglobin 9.7 g/dL (12.0-15.0); Mean Corpuscular HGB Conc 26.8 g/dL (32-36); Mean Corpuscular Hemoglobin 22.9 pg (27.0-31.0); Mean Corpuscular Volume 85.6 fL (78.0-102.0); Mean Platelet Volume 9.6 fl (9.2-11.8); Platelet Count Result 413 K/mm3 (150-420); Red Blood Count 4.23 M/mm3 (4.20-5.40); Red Cell Distribution Width 21.7 % (11.6-14.4); White Blood Count 10.7 K/mm3 (4.8-10.8)
[2024-12-10] MEDS: [UNRECOGNIZED DRUG - OTHER] TOPICAL (08:44)
[2024-12-10] MEDS: ERGOCALCIFEROL 50,000 UNITS CAPSULE 50000 UNITS PO (08:44)
[2024-12-10] MEDS: BUPRENORPHINE TOPICAL (08:44)
[2024-12-10] MEDS: METOPROLOL TARTRATE 12.5 MG TABLET PO ×2 (08:45→20:33)
[2024-12-10] MEDS: CALCIUM CARBONATE (TUMS) 500 MG (200 MG ELEMENTAL) 400 MG PO (08:45)
[2024-12-10] MEDS: PREGABALIN (*CRX) 25 MG CAPSULE 75 MG PO ×2 (08:45→16:57)
[2024-12-10] MEDS: metFORMIN HCL 500 MG TABLET PO ×2 (08:45→16:57)
[2024-12-10] MEDS: SACUBITRIL/VALSARTAN 24-26 MG TABLET 0.5 TAB PO ×2 (08:48→20:33)
[2024-12-10] MEDS: POTASSIUM CHLORIDE 20 MEQ ER TABLET PO (08:48)
[2024-12-10 08:49] LABS: INR 1.5; Prothrombin Time 15.9 Seconds (9.50-12.1)
[2024-12-10] MEDS: ATORVASTATIN 10 MG TABLET 20 MG PO (08:49)
[2024-12-10] MEDS: AMIODARONE HCL 200 MG TABLET PO (08:49)
[2024-12-10] MEDS: FUROSEMIDE 40 MG TABLET PO ×2 (08:49→16:57)
[2024-12-10] MEDS: PANTOPRAZOLE 40 MG TABLET PO ×2 (08:49→20:33)
[2024-12-10] MEDS: SPIRONOLACTONE 25 MG TABLET PO ×2 (08:50→20:34)
[2024-12-10] MEDS: MIDODRINE HCL 2.5 MG TABLET 10 MG PO ×3 (08:50→16:57)
[2024-12-10] MEDS: ASPIRIN 81 MG ENTERIC TABLET PO (08:50)
[2024-12-10] MEDS: EMPAGLIFLOZIN 10 MG TABLET PO (08:50)
[2024-12-10 08:52] LABS: Alanine Aminotransferase 66 U/L (14-59); Albumin Level 4.1 g/dL (3.4-5.0); Alkaline Phosphatase 120 U/L (46-116); Anion Gap 8 mmol/L (4-12); Aspartate Amino Transferase 20 U/L (15-37); Bilirubin,Total 0.5 mg/dL (0.00-1.00); Blood Urea Nitrogen 24 mg/dL (7-18); Calcium 9.3 mg/dL (8.5-10.1); Carbon Dioxide 36 mmol/L (21-32); Chloride 101 mmol/L (98-108); Estimated CRCL calculation 47 ml/min; Estimated Glomerular Filt Rate > 60; Glucose 301 mg/dL (70-99); Osmolality Calculated 315 mOsm/kg (285-295); Potassium 4.8 mmol/L (3.5-5.1); Sodium 145 mmol/L (136-145); Total Protein 7.1 g/dL (6.4-8.2)
[2024-12-10] MEDS: INSULIN GLARGINE (*BKC) 1,000 UNITS/10 ML VIAL 35 UNITS SUB-Q (08:57)
[2024-12-10] MEDS: INSULIN HUMAN LISPRO (*BKC) 1,000 UNITS/10 ML VIAL SUB-Q ×2 (08:58→13:13)
--- NOTE | 2024-12-10 11:07 | P.HP_ITS ---
H&P: HPI History of Present Illness Date/Time: 12/10/24 11:07 Chief Complaint: physical deconditioning weakness Narrative: This is a 59 year old female with a significant past medical history of Atrial fibrillation, type 2 diabetes mellitus, depression, anxiety, chronic back pain, arthritis, hypertension, hyperlipidemia, fibromyalgia, migraine, thyroid cancer, hypothyroidism, coronary artery disease, sleep apnea, restless legs syndrome, irritable bowel syndrome, osteoporosis, GERD, congestive heart failure, former smoker who presents to [facility] program for rehab. Patient recently had barostim placement surgery on 11/18/2024 at [facility] for her chronic combined systolic and diastolic heart failure. following surgery patient was admitted to [facility] for rehab however during her admission she developed chest pain and some concern for N STEMI with elevated troponins patient was transferred to [facility] for further evaluation and treatment with a consult to Cardiology. Patient was ruled out for ACS event but was found to have a new atrial thrombosis currently already on Coumadin but had not been therapeutic. no cardiac interventions were done at [facility] but she was seen by Physical and Occupational therapy who recommended continued physical and occupational therapy. Patient was then transferred via ambulance back to [facility] for continued rehab Review of Systems Review of Systems: All systems reviewed & are unremarkable except as noted in HPI and below PMFSH Past Medical History Medical History Chronic hypoxemic respiratory failure Atrial fibrillation Diabetes type 2, uncontrolled Pneumonia Major depressive disorder, recurrent, moderate Muscle spasm Anxiety Depression Chronic back pain DDD (degenerative disc disease) Arthritis Peripheral neuropathy UTI (urinary tract infection) Ovarian cyst HTN (hypertension) Hyperlipidemia Fibromyalgia Migraine Thyroid ca Diabetes mellitus Bronchitis Type 2 diabetes mellitus without complications Cervical spondylosis with myelopathy and radiculopathy Chronic pain disorder Adult hypothyroidism Sleep apnea in adult Cervical vertebral fusion C5-6 Arthritis CAD (coronary artery disease) Migraine BI (obstructive sleep apnea) RLS (restless legs syndrome) IBS (irritable bowel syndrome) Depression Anxiety Osteoporosis Liver cancer no treatment, follows at [facility] Chronic pain Chronic respiratory failure on 3 l nc ICD (implantable cardioverter-defibrillator) battery depletion Atrial fib/flutter, transient Cardiomyopathy CHF (congestive heart failure) Diabetes GERD (gastroesophageal reflux disease) Hypothyroidism Hyperlipidemia Hypertension Surgical History Surgical History History of spinal fusion History of hysterectomy S/P cervical spinal fusion H/O thyroidectomy History of liver biopsy H/O partial thyroidectomy H/O kyphoplasty 05/2023, 07/2023, 11/2023 H/O: hysterectomy History of hip surgery History of cholecystectomy History of carpal tunnel release H/O breast biopsy Previous back surgery Family History Family History Grandparent Diabetes mellitus, Onset Age: 200 Family history of lupus erythematosus, Onset Age: 200 Mother Family history of malignant neoplasm of breast in first degree relative Hypertension Cerebrovascular accident Father Family history of coronary artery disease, Onset Age: 40 Hypertension Chronic obstructive pulmonary disease Other Family history of malignant neoplasm of male breast Social History Social History Social History: Smoking packs per day: 1 Smoking cigarettes per day: 20.0 Years smoked: 5 Smoking pack-years: 5.00 Smoking status: Former smoker Tobacco type: cigarettes Second hand tobacco smoke exposure: No Smoking end date: 10/13/86 Alcohol intake: never Substance use: never Substance use type: does not use Do You Feel Safe in your Home?: Yes Lack of Transportation: No Lack of Food: Never True Current Housing: I Have Housing Concerned About Future Housing: No Difficulty Paying Gas/Electric Bills: No Difficulty Paying for Meds: No Currently Unemployed: No Education: Decline to Answer Difficulty w/ Childcare or Family Care: No Living arrangements: with family Occupation/Education: retired Additional occupation/education comments: Disability Gender identity (if verbalized by the patient): Female Sexual Orientation (if Verbalized by the Patient): Straight or Heterosexual Spiritual care concerns: No Meds Home Medications and Allergies Home Medications ?Medication ?Instructions ?Recorded ?Confirmed ?Type Dexcom G7 Sensor 12/04/23 12/09/24 History aspirin 81 mg tablet,delayed 81 mg PO DAILY 12/04/23 12/09/24 History release atorvastatin 20 mg tablet 20 mg PO DAILY 12/04/23 12/09/24 History bisacodyl 10 mg rectal suppository 10 mg RECTAL DAILY PRN Constipation 12/04/23 12/09/24 History cyclobenzaprine 5 mg tablet 10 mg PO TID PRN Muscle Spasms 12/04/23 12/09/24 History ergocalciferol (vitamin D2) 25,000 50,000 unit PO WEEKLY 12/04/23 12/09/24 History unit capsule levothyroxine 125 mcg tablet 125 mcg PO DAILY 12/04/23 12/09/24 History potassium chloride 20 mEq 20 meq PO DAILY 12/04/23 12/09/24 History tablet,extended release pregabalin 75 mg capsule 75 mg PO BID 12/04/23 12/09/24 History ropinirole 0.25 mg tablet 0.25 mg PO HS 12/04/23 12/09/24 History sacubitril 24 mg-valsartan 26 mg 0.5 tablet PO BID 12/04/23 12/09/24 History tablet (Entresto) ondansetron 4 mg disintegrating 4 mg PO Q6H PRN Nausea And 12/15/23 12/09/24 Rx tablet Vomiting #0 tabs Anusol-HC 25 mg RECTAL DAILY PRN Hemorrhoids 08/30/24 12/09/24 History acetaminophen 325 mg tablet 650 mg PO Q6H PRN Fever Or Pain 08/30/24 12/09/24 History alendronate 70 mg tablet 70 mg PO WEEKLY 08/30/24 12/09/24 History artifi.tears(hypromellose)(PF) 0.3 2 drp EACH EYE TID PRN Dry Eye(S) 08/30/24 12/09/24 History % eye drops bisacodyl 5 mg tablet,delayed 10 mg PO DAILY PRN Constipation 08/30/24 12/09/24 History release buprenorphine 10 mcg/hour weekly 1 patch transdermal Q7D 08/30/24 12/09/24 History transdermal patch calcium carbonate 1,000 mg PO TID PRN dyspepsia 08/30/24 12/09/24 History empagliflozin 10 mg tablet 10 mg PO DAILY 08/30/24 12/09/24 History furosemide 40 mg tablet 40 mg PO BID 08/30/24 12/09/24 History hydrocortisone 2.5 % topical cream 1 applic RECTAL QID PRN Hemorrhoids 08/30/24 12/09/24 History with perineal applicator metoprolol tartrate 25 mg tablet 12.5 mg PO BID 08/30/24 12/09/24 History midodrine 10 mg tablet 10 mg PO TID 08/30/24 12/09/24 History oxycodone 5 mg tablet 10 mg PO Q4H PRN Pain 08/30/24 12/09/24 History pantoprazole 40 mg tablet,delayed 40 mg PO BID 08/30/24 12/09/24 History release sodium chloride 0.65 % nasal spray 2 spray intranasal Q2H PRN Dry 08/30/24 12/09/24 History aerosol (Saline Nasal) Nasal Passages metformin 500 mg tablet 500 mg PO BID #30 tabs 09/10/24 12/09/24 Rx warfarin 1 mg tablet 1.5 mg (1.5 x 1 mg) PO WEEKLY #15 09/10/24 12/09/24 Rx tabs phenylephrine HCl 1 % nasal spray 1 spray intranasal Q6H PRN nasal 10/20/24 12/09/24 Rx (Parish-Synephrine (phenylephrine)) congestion 3 days #15 mL amiodarone 200 mg tablet 200 mg PO DAILY 11/30/24 12/09/24 History insulin glargine 100 unit/mL 35 unit subcut QAM 11/30/24 12/09/24 History subcutaneous solution (Lantus U-100 Insulin) warfarin 2 mg tablet 2 mg PO DAILY 11/30/24 12/09/24 History calcium 500 mg (as 1 tablet PO DAILY 12/09/24 12/09/24 History carbonate)-vitamin D3 200 unit-vit K2 90 mcg tablet cyanocobalamin (vitamin B-12) 1,000 mcg subcut MONTHLY 12/09/24 12/09/24 History 1,000 mcg/mL injection solution mirtazapine 15 mg disintegrating 15 mg PO HS 12/09/24 12/09/24 History tablet polyethylene glycol 3350 17 gram 17 g PO DAILY 12/09/24 12/09/24 History oral powder packet (Miralax) polyvinyl alcohol-povidone (PF) 2 drp EACH EYE Q4H PRN dry eye(s) 12/09/24 12/09/24 History 1.4 %-0.6 % eye drops in a dropperette rizatriptan 10 mg tablet 10 mg PO Q2H 12/09/24 12/09/24 History sennosides 8.6 mg-docusate sodium 1 tab-cap PO BID 12/09/24 12/09/24 History 50 mg tablet (Senna with Docusate Sodium) spironolactone 25 mg tablet 25 mg PO QAM AND QHS 12/09/24 12/09/24 History vancomycin 125 mg capsule 125 mg PO Q6H 12/09/24 12/09/24 History Allergies Allergy/AdvReac Type Severity Reaction Status Date / Time prochlorperazine Allergy Unknown Verified 11/07/24 21:52 Sulfa (Sulfonamide Allergy Other Verified 11/07/24 21:52 Antibiotics) sulfanilamide Allergy Unknown Verified 11/07/24 21:52 tramadol Allergy Unknown Verified 11/07/24 21:52 trazodone Allergy Other Verified 11/07/24 21:52 acetaminophen AdvReac Vomiting Verified 12/04/24 10:44 amitriptyline AdvReac Nightmare Verified 11/07/24 21:52 baclofen AdvReac Nausea Verified 12/04/24 10:44 nitrofurantoin AdvReac Nausea and Verified 12/04/24 10:44 Vomiting propoxyphene AdvReac Vomiting Verified 12/04/24 10:44 sumatriptan AdvReac Diarrhea Verified 12/04/24 10:44 tizanidine AdvReac Hallucinati Verified 12/04/24 10:44 ng Vital Signs Vital Signs - 24 hr 12/09/24 18:00 12/09/24 20:00 12/09/24 20:07 Temperature Pulse Rate 80 80 Respiratory Rate 17 17 Blood Pressure Pulse Oximetry 100 100 100 Oxygen Delivery Nasal Cannula Nasal Cannula Oxygen Flow Rate 3 3 12/09/24 21:51 12/10/24 00:00 12/10/24 08:00 Temperature 97.7 F 96.8 F L Pulse Rate 80 68 104 H Respiratory Rate 16 14 Blood Pressure 130/55 L 122/76 Pulse Oximetry 100 97 Oxygen Delivery Nasal Cannula Nasal Cannula Oxygen Flow Rate 3 3 12/10/24 08:45 12/10/24 08:49 Temperature Pulse Rate 104 H 104 H Respiratory Rate Blood Pressure Pulse Oximetry Oxygen Delivery Oxygen Flow Rate Exam Narrative: General: In no acute distress, well nourished Head: atraumatic Eyes: PERRLA, sclera clear ENT: moist mucous membranes Neck: supple, no JVD, trachea midline Cardiac: Normal S1 and S2. No murmur, gallops or friction rubs, peripheral pulses intact. Respiratory: Lungs clear to auscultation, no adventitious lung sounds , currently on 3 L nasal cannula chronic Gastrointestinal: soft, non-distended, non-tender, normoactive bowel sounds. : voiding without difficulty. Extremities: moves all extremities well, 3 to 4+ pitting edema to bilateral lower extremities Skin: clean, dry, intact. No wounds or lesions. Neuro: Alert and oriented x4, cranial nerves intact, no neuro deficits. Psych: normal mood, normal affect, interactive H&P: Results Labs Labs: Short CBC 12/10/24 Range/Units 08:24 WBC 10.7 (4.8-10.8) K/mm3 Hgb 9.7 L (12.0-15.0) g/dL Hct 36.2 (35.0-49.0) % Plt Count 413 (150-420) K/mm3 BMP 12/10/24 08:24 Sodium 145 Potassium 4.8 Chloride 101 Carbon Dioxide 36 H BUN 24 H Creatinine 0.92 Glucose 301 H Calcium 9.3 Liver Function 12/10/24 Range/Units 08:24 Total Bilirubin 0.5 (0.00-1.00) mg/dL AST 20 (15-37) U/L ALT 66 H (14-59) U/L Alkaline Phosphatase 120 H (46-116) U/L Albumin 4.1 (3.4-5.0) g/dL Assessment and Plan Assessment and plan (1) Weakness: Code(s): R53.1 - Weakness Status: Acute Assessment and Plan: * PT and OT ordered (2) Cardiomyopathy: Code(s): I42.9 - Cardiomyopathy, unspecified Status: Acute Assessment and Plan: * continue Entresto, Lasix, metoprolol * Current Echo severe global left ventricle systolic dysfunction thrombus was seen in the lateral wall LVEF estimated at 15-20% * Jane stim implant * ICD present * F/U Dr. Madsen 12/20/2024 (3) Atrial fibrillation: Code(s): I48.91 - Unspecified atrial fibrillation Status: Chronic Assessment and Plan: * continue amiodarone and metoprolol * INR 1.5 today * 2 mg Coumadin for tonight * PT/INR Daily * adjust Coumadin 2.0-3.0 (4) Hyperlipidemia: Code(s): E78.5 - Hyperlipidemia, unspecified Status: Acute Assessment and Plan: * continue aspirin and atorvastatin (5) Type 2 diabetes mellitus: Code(s): E11.9 - Type 2 diabetes mellitus without complications Status: Acute Assessment and Plan: * Blood sugars ranging 162-261 * Hgb A1C was 6.7 on 12/01/2024 * Accu checks AC/HS * low-dose SSI ordered * continue metformin * continue Lantus 35 units * hypoglycemic protocol in place * Diabetic diet ordered (6) Hypothyroidism: Code(s): E03.9 - Hypothyroidism, unspecified Status: Acute Assessment and Plan: * continue Synthroid (7) GERD (gastroesophageal reflux disease): Code(s): K21.9 - Gastro-esophageal reflux disease without esophagitis Status: Acute Assessment and Plan: * continue Protonix b.i.d. * Tums ordered as well (8) C. difficile diarrhea: Code(s): A04.72 - Enterocolitis due to Clostridium difficile, not specified as recurrent Status: Acute Assessment and Plan: * Continue oral vancomycin (9) Atrial thrombus: Code(s): I51.3 - Intracardiac thrombosis, not elsewhere classified Status: Acute Assessment and Plan: * continue Coumadin * PT/INR daily * adjust as needed (10) BI (obstructive sleep apnea): Code(s): G47.33 - Obstructive sleep apnea (adult) (pediatric) Status: Acute Assessment and Plan: * Cpap Plan Code status: DNR/ modified does want intubation DVT prophylaxis: Coumadin Stress ulcer prophylaxis: Pepcid PT/OT notes: [facility] Disposition: patient admitted to [facility] for continued rehabilitation after extended hospitalization presented with generalized weakness. Quality VTE Prophylaxis VTE prophylaxis: pharmacologic ordered -Patient's previous records reviewed on admission -ER notes reviewed in detail on admission -discussed all findings and current treatment plan with patient/Family/POA -Consultations reviewed for recommendations -Patient's disposition for safe discharge discussed with case reviewer Dictation performed by [employer] direct speech recognition software, therefore log pond worker variants and typographical errors may occur. Hospitalist MIPS Advance Care Plan I have confirmed that the patient's Advanced Care Plan is present, code status is documented, or surrogate decision maker is listed in patient medical record.: Yes Medication Reconciliation I have utilized all available resources to obtain, update and review the patients current medications (includes all prescriptions, OTC, herbals, ca nnabis, and nutritional supplements).: Yes The patient is not eligible for med reconciliation; the patient is in a emergent medical situation where delaying treatment would jeopardize the patients health.: No
[2024-12-10 11:40] LABS: Glucose Point of Care 311 mg/dl (65-105)
[2024-12-10] MEDS: oxyCODONE HCL (*CRX) 5 MG TAB IR 10 MG PO ×2 (13:08→18:47)
[2024-12-10] MEDS: CYCLOBENZAPRINE HCL 10 MG TABLET PO ×2 (13:09→16:57)
[2024-12-10] MEDS: FLUCONAZOLE 100 MG TABLET 200 MG PO (13:11)
[2024-12-10 16:52] LABS: Glucose Point of Care 181 mg/dl (65-105)
[2024-12-10] MEDS: WARFARIN (*PBKC) 2 MG TABLET PO (17:01)
[2024-12-10] MEDS: ONDANSETRON HCL ODT 4 MG TABLET PO (18:46)
[2024-12-10] MEDS: rOPINIRole HCL 0.25 MG TABLET PO (20:33)
[2024-12-10] MEDS: MIRTAZAPINE 15 MG TABLET PO (20:33)
[2024-12-10 20:43] LABS: Glucose Point of Care 286 mg/dl (65-105)
[2024-12-11] VITALS (8 sets, daily range): BP systolic 107–115; BP diastolic 65–72; PULSE 61–112; RESP 16–20; TEMP 36.2–36.3; O2SAT 95–100
[2024-12-11 05:33] LABS: INR 1.5; Prothrombin Time 15.8 Seconds (9.50-12.1)
[2024-12-11] MEDS: oxyCODONE HCL (*CRX) 5 MG TAB IR 10 MG PO ×3 (05:41→19:22)
[2024-12-11] MEDS: LEVOTHYROXINE SODIUM 100 MCG TABLET PO (05:41)
[2024-12-11] MEDS: VANCOMYCIN HCL 125 MG ORAL CAPSULE PO ×4 (05:41→23:08)
[2024-12-11] MEDS: LEVOTHYROXINE SODIUM 25 MCG TABLET PO (05:41)
[2024-12-11 08:08] LABS: Glucose Point of Care 188 mg/dl (65-105)
--- NOTE | 2024-12-11 08:44 | PM.EVENT ---
Event Note Event Note Event Note: INR 1.5 increased Coumadin to 2.5mg and added 1x booster dose 3mg continue to monitor INR daily
[2024-12-11] MEDS: SACUBITRIL/VALSARTAN 24-26 MG TABLET 0.5 TAB PO ×2 (09:13→20:46)
[2024-12-11] MEDS: CALCIUM CARBONATE (TUMS) 500 MG (200 MG ELEMENTAL) 400 MG PO ×3 (09:13→17:06)
[2024-12-11] MEDS: ASPIRIN 81 MG ENTERIC TABLET PO (09:14)
[2024-12-11] MEDS: METOPROLOL TARTRATE 12.5 MG TABLET PO ×2 (09:14→20:46)
[2024-12-11] MEDS: ATORVASTATIN 10 MG TABLET 20 MG PO (09:15)
[2024-12-11] MEDS: CYCLOBENZAPRINE HCL 10 MG TABLET PO ×3 (09:15→17:07)
[2024-12-11] MEDS: SPIRONOLACTONE 25 MG TABLET PO ×2 (09:15→20:47)
[2024-12-11] MEDS: MIDODRINE HCL 2.5 MG TABLET 10 MG PO ×3 (09:16→17:08)
[2024-12-11] MEDS: PANTOPRAZOLE 40 MG TABLET PO ×2 (09:16→20:46)
[2024-12-11] MEDS: PREGABALIN (*CRX) 25 MG CAPSULE 75 MG PO ×2 (09:16→17:07)
[2024-12-11] MEDS: ONDANSETRON HCL ODT 4 MG TABLET PO ×3 (09:16→23:08)
[2024-12-11] MEDS: AMIODARONE HCL 200 MG TABLET PO (09:16)
[2024-12-11] MEDS: SENNA/DOCUSATE SODIUM TABLET 1 TAB PO ×2 (09:17→17:07)
[2024-12-11] MEDS: FUROSEMIDE 40 MG TABLET PO ×2 (09:17→17:07)
[2024-12-11] MEDS: EMPAGLIFLOZIN 10 MG TABLET PO (09:17)
[2024-12-11] MEDS: POTASSIUM CHLORIDE 20 MEQ ER TABLET PO (09:18)
[2024-12-11] MEDS: metFORMIN HCL 500 MG TABLET PO ×2 (09:18→17:07)
[2024-12-11] MEDS: INSULIN GLARGINE (*BKC) 1,000 UNITS/10 ML VIAL 35 UNITS SUB-Q (09:18)
[2024-12-11] MEDS: ACETAMINOPHEN 325 MG TABLET 650 MG PO ×3 (09:25→20:47)
[2024-12-11] MEDS: INSULIN HUMAN LISPRO (*BKC) 1,000 UNITS/10 ML VIAL SUB-Q ×2 (12:10→17:08)
[2024-12-11 12:12] LABS: Glucose Point of Care 350 mg/dl (65-105)
[2024-12-11 16:34] LABS: Glucose Point of Care 233 mg/dl (65-105)
[2024-12-11] MEDS: LIDOCAINE 5% PATCH 2 PATCH TRANSDERM (17:06)
[2024-12-11] MEDS: WARFARIN (*PBKC) 1 MG, WARFARIN (*PBKC) 2 MG 3 MG PO (17:07)
[2024-12-11] MEDS: rOPINIRole HCL 0.25 MG TABLET PO (20:47)
[2024-12-11] MEDS: MIRTAZAPINE 15 MG TABLET PO (20:47)
[2024-12-11 20:51] LABS: Glucose Point of Care 339 mg/dl (65-105)
[2024-12-12] VITALS (7 sets, daily range): BP systolic 97–117; BP diastolic 55–73; PULSE 61–98; RESP 17–20; TEMP 36.1–36.6; O2SAT 94–99
[2024-12-12] MEDS: oxyCODONE HCL (*CRX) 5 MG TAB IR 10 MG PO ×4 (01:30→21:16)
[2024-12-12 05:27] LABS: INR 1.9; Prothrombin Time 19.8 Seconds (9.50-12.1)
[2024-12-12] MEDS: LEVOTHYROXINE SODIUM 100 MCG TABLET PO (05:36)
[2024-12-12] MEDS: LEVOTHYROXINE SODIUM 25 MCG TABLET PO (05:36)
[2024-12-12] MEDS: VANCOMYCIN HCL 125 MG ORAL CAPSULE PO ×3 (05:36→17:49)
[2024-12-12] MEDS: INSULIN HUMAN LISPRO (*BKC) 1,000 UNITS/10 ML VIAL SUB-Q ×3 (08:07→17:02)
[2024-12-12 08:08] LABS: Glucose Point of Care 332 mg/dl (65-105)
[2024-12-12] MEDS: METOPROLOL TARTRATE 12.5 MG TABLET PO ×2 (08:09→21:14)
[2024-12-12] MEDS: SPIRONOLACTONE 25 MG TABLET PO ×2 (08:09→21:18)
[2024-12-12] MEDS: PREGABALIN (*CRX) 25 MG CAPSULE 75 MG PO ×2 (08:10→17:01)
[2024-12-12] MEDS: PANTOPRAZOLE 40 MG TABLET PO ×2 (08:11→21:18)
[2024-12-12] MEDS: SACUBITRIL/VALSARTAN 24-26 MG TABLET 0.5 TAB PO ×2 (08:11→21:13)
[2024-12-12] MEDS: MIDODRINE HCL 2.5 MG TABLET 10 MG PO ×3 (08:11→17:00)
[2024-12-12] MEDS: POTASSIUM CHLORIDE 20 MEQ ER TABLET PO (08:11)
[2024-12-12] MEDS: EMPAGLIFLOZIN 10 MG TABLET PO (08:11)
[2024-12-12] MEDS: metFORMIN HCL 500 MG TABLET PO ×2 (08:12→17:01)
[2024-12-12] MEDS: FUROSEMIDE 40 MG TABLET PO ×2 (08:12→17:01)
[2024-12-12] MEDS: ATORVASTATIN 10 MG TABLET 20 MG PO (08:12)
[2024-12-12] MEDS: AMIODARONE HCL 200 MG TABLET PO (08:12)
[2024-12-12] MEDS: polyethylene glycoL 3350 17 GM POWD.PACK PO (08:12)
[2024-12-12] MEDS: ASPIRIN 81 MG ENTERIC TABLET PO (08:12)
[2024-12-12] MEDS: SENNA/DOCUSATE SODIUM TABLET 1 TAB PO ×2 (08:12→17:04)
[2024-12-12] MEDS: LIDOCAINE 5% PATCH 2 PATCH TRANSDERM (08:19)
[2024-12-12] MEDS: INSULIN GLARGINE (*BKC) 1,000 UNITS/10 ML VIAL 35 UNITS SUB-Q (08:30)
[2024-12-12 10:55] LABS: Glucose Point of Care 300 mg/dl (65-105)
[2024-12-12] MEDS: ACETAMINOPHEN 325 MG TABLET 650 MG PO ×2 (12:06→20:00)
[2024-12-12] MEDS: CYCLOBENZAPRINE HCL 10 MG TABLET PO ×2 (12:06→21:18)
--- NOTE | 2024-12-12 15:42 | PC.NURSE ---
Pt up to [facility] w/ spouse in room. Pt has noted linear skin tear to her Rt outer FA that is bleeding slightly, wounds cleansed and dressed w/ a foam protective mepilex border.
[2024-12-12 16:30] LABS: Glucose Point of Care 255 mg/dl (65-105)
[2024-12-12] MEDS: rOPINIRole HCL 0.25 MG TABLET PO (21:13)
[2024-12-12] MEDS: MIRTAZAPINE 15 MG TABLET PO (21:18)
[2024-12-12 21:30] LABS: Glucose Point of Care 274 mg/dl (65-105)
[2024-12-13] VITALS (7 sets, daily range): BP systolic 110–128; BP diastolic 60–67; PULSE 65–87; RESP 16–20; TEMP 35.8–36.7; O2SAT 94–100
[2024-12-13] MEDS: oxyCODONE HCL (*CRX) 5 MG TAB IR 10 MG PO ×3 (03:22→16:11)
[2024-12-13] MEDS: LEVOTHYROXINE SODIUM 25 MCG TABLET PO (06:21)
[2024-12-13] MEDS: LEVOTHYROXINE SODIUM 100 MCG TABLET PO (06:21)
[2024-12-13] MEDS: VANCOMYCIN HCL 125 MG ORAL CAPSULE PO ×4 (06:21→17:14)
[2024-12-13 08:13] LABS: Glucose Point of Care 200 mg/dl (65-105)
[2024-12-13 08:38] LABS: INR 1.7; Prothrombin Time 17.5 Seconds (9.50-12.1)
[2024-12-13] MEDS: CALCIUM CARBONATE (TUMS) 500 MG (200 MG ELEMENTAL) 400 MG PO ×3 (09:27→16:12)
[2024-12-13] MEDS: PREGABALIN (*CRX) 25 MG CAPSULE 75 MG PO ×2 (09:27→16:11)
[2024-12-13] MEDS: METOPROLOL TARTRATE 12.5 MG TABLET PO ×2 (09:27→21:04)
[2024-12-13] MEDS: POTASSIUM CHLORIDE 20 MEQ ER TABLET PO (09:28)
[2024-12-13] MEDS: metFORMIN HCL 500 MG TABLET PO ×2 (09:28→16:11)
[2024-12-13] MEDS: SACUBITRIL/VALSARTAN 24-26 MG TABLET 0.5 TAB PO ×2 (09:28→21:05)
[2024-12-13] MEDS: FUROSEMIDE 40 MG TABLET PO ×2 (09:28→16:11)
[2024-12-13] MEDS: AMIODARONE HCL 200 MG TABLET PO (09:28)
[2024-12-13] MEDS: ATORVASTATIN 10 MG TABLET 20 MG PO (09:28)
[2024-12-13] MEDS: ACETAMINOPHEN 325 MG TABLET 650 MG PO ×2 (09:29→16:10)
[2024-12-13] MEDS: PANTOPRAZOLE 40 MG TABLET PO ×2 (09:29→21:05)
[2024-12-13] MEDS: EMPAGLIFLOZIN 10 MG TABLET PO (09:29)
[2024-12-13] MEDS: ASPIRIN 81 MG ENTERIC TABLET PO (09:29)
[2024-12-13] MEDS: CYCLOBENZAPRINE HCL 10 MG TABLET PO ×3 (09:29→16:11)
[2024-12-13] MEDS: ONDANSETRON HCL ODT 4 MG TABLET PO ×2 (09:30→16:11)
[2024-12-13] MEDS: LIDOCAINE 5% PATCH 2 PATCH TRANSDERM (09:30)
[2024-12-13] MEDS: SPIRONOLACTONE 25 MG TABLET PO ×2 (09:30→21:05)
[2024-12-13] MEDS: INSULIN GLARGINE (*BKC) 1,000 UNITS/10 ML VIAL 35 UNITS SUB-Q (09:30)
[2024-12-13] MEDS: MIDODRINE HCL 2.5 MG TABLET 10 MG PO ×3 (09:30→16:11)
[2024-12-13 11:58] LABS: Glucose Point of Care 285 mg/dl (65-105)
[2024-12-13] MEDS: INSULIN HUMAN LISPRO (*BKC) 1,000 UNITS/10 ML VIAL SUB-Q (12:07)
[2024-12-13] MEDS: WARFARIN (*PBKC) 2.5 MG TABLET PO (16:11)
[2024-12-13 16:40] LABS: Glucose Point of Care 123 mg/dl (65-105)
[2024-12-13] MEDS: rOPINIRole HCL 0.25 MG TABLET PO (21:05)
[2024-12-13] MEDS: MIRTAZAPINE 15 MG TABLET PO (21:05)
[2024-12-14] VITALS (7 sets, daily range): BP systolic 90–129; BP diastolic 63–78; PULSE 58–82; RESP 17–20; TEMP 36.1–36.6; O2SAT 94–100
[2024-12-14 00:23] LABS: Glucose Point of Care 256 mg/dl (65-105)
[2024-12-14] MEDS: VANCOMYCIN HCL 125 MG ORAL CAPSULE PO ×4 (00:54→16:57)
[2024-12-14] MEDS: oxyCODONE HCL (*CRX) 5 MG TAB IR 10 MG PO ×4 (01:00→20:16)
[2024-12-14] MEDS: CYCLOBENZAPRINE HCL 10 MG TABLET PO ×3 (01:01→18:18)
[2024-12-14] MEDS: RIZATRIPTAN 10 MG 10 EACH PO (04:48)
[2024-12-14] MEDS: LEVOTHYROXINE SODIUM 100 MCG TABLET PO (06:22)
[2024-12-14] MEDS: LEVOTHYROXINE SODIUM 25 MCG TABLET PO (06:22)
[2024-12-14 07:51] LABS: Glucose Point of Care 169 mg/dl (65-105)
[2024-12-14] MEDS: ONDANSETRON HCL ODT 4 MG TABLET PO ×3 (07:54→20:20)
[2024-12-14 08:37] LABS: INR 1.7; Prothrombin Time 17.9 Seconds (9.50-12.1)
[2024-12-14] MEDS: LIDOCAINE 5% PATCH 2 PATCH TRANSDERM (09:05)
[2024-12-14] MEDS: SACUBITRIL/VALSARTAN 24-26 MG TABLET 0.5 TAB PO ×2 (09:07→20:20)
[2024-12-14] MEDS: SPIRONOLACTONE 25 MG TABLET PO ×2 (09:07→20:17)
[2024-12-14] MEDS: METOPROLOL TARTRATE 12.5 MG TABLET PO ×2 (09:07→20:17)
[2024-12-14] MEDS: AMIODARONE HCL 200 MG TABLET PO (09:07)
[2024-12-14] MEDS: PANTOPRAZOLE 40 MG TABLET PO ×2 (09:07→20:20)
[2024-12-14] MEDS: POTASSIUM CHLORIDE 20 MEQ ER TABLET PO (09:07)
[2024-12-14] MEDS: metFORMIN HCL 500 MG TABLET PO ×2 (09:07→16:57)
[2024-12-14] MEDS: MIDODRINE HCL 2.5 MG TABLET 10 MG PO ×3 (09:08→16:57)
[2024-12-14] MEDS: ASPIRIN 81 MG ENTERIC TABLET PO (09:09)
[2024-12-14] MEDS: PREGABALIN (*CRX) 25 MG CAPSULE 75 MG PO ×2 (09:09→16:57)
[2024-12-14] MEDS: ATORVASTATIN 10 MG TABLET 20 MG PO (09:09)
[2024-12-14] MEDS: EMPAGLIFLOZIN 10 MG TABLET PO (09:09)
[2024-12-14] MEDS: FUROSEMIDE 40 MG TABLET PO ×2 (09:09→16:57)
[2024-12-14] MEDS: INSULIN GLARGINE (*BKC) 1,000 UNITS/10 ML VIAL 35 UNITS SUB-Q (09:10)
--- NOTE | 2024-12-14 10:53 | PM.EVENT ---
Event Note Event Note Event Note: INR still 1.7 after increased to 2.5 daily of Coumadin will give extra dose 2.5 today.
[2024-12-14 12:08] LABS: Glucose Point of Care 328 mg/dl (65-105)
[2024-12-14] MEDS: INSULIN HUMAN LISPRO (*BKC) 1,000 UNITS/10 ML VIAL SUB-Q ×2 (12:12→16:56)
[2024-12-14] MEDS: ACETAMINOPHEN 325 MG TABLET 650 MG PO ×2 (12:17→18:18)
[2024-12-14] MEDS: WARFARIN (*PBKC) 5 MG TABLET PO (16:57)
[2024-12-14 17:02] LABS: Glucose Point of Care 242 mg/dl (65-105)
[2024-12-14 20:20] LABS: Glucose Point of Care 272 mg/dl (65-105)
[2024-12-14] MEDS: MIRTAZAPINE 15 MG TABLET PO (20:20)
[2024-12-14] MEDS: rOPINIRole HCL 0.25 MG TABLET PO (20:20)
[2024-12-15] MEDS: CYCLOBENZAPRINE HCL 10 MG TABLET PO ×4 (00:30→18:36)
[2024-12-15] MEDS: ACETAMINOPHEN 325 MG TABLET 650 MG PO ×4 (00:30→18:35)
[2024-12-15] MEDS: VANCOMYCIN HCL 125 MG ORAL CAPSULE PO ×4 (00:34→18:11)
[2024-12-15] MEDS: oxyCODONE HCL (*CRX) 5 MG TAB IR 10 MG PO ×4 (02:25→21:03)
[2024-12-15] MEDS: ONDANSETRON HCL ODT 4 MG TABLET PO ×4 (02:26→21:07)
[2024-12-15 05:30] VITALS: O2SAT 98
[2024-12-15 05:42] LABS: INR 1.9; Prothrombin Time 20.2 Seconds (9.50-12.1)
[2024-12-15] MEDS: LEVOTHYROXINE SODIUM 100 MCG TABLET PO (06:26)
[2024-12-15] MEDS: LEVOTHYROXINE SODIUM 25 MCG TABLET PO (06:26)
[2024-12-15 08:00] VITALS: BP 130/71; PULSE 80; RESP 16; TEMP 36.9; O2SAT 94
[2024-12-15 08:06] LABS: Glucose Point of Care 246 mg/dl (65-105)
[2024-12-15] MEDS: LIDOCAINE 5% PATCH 2 PATCH TRANSDERM (08:30)
[2024-12-15] MEDS: PREGABALIN (*CRX) 25 MG CAPSULE 75 MG PO ×2 (08:32→17:04)
[2024-12-15] MEDS: POTASSIUM CHLORIDE 20 MEQ ER TABLET PO (08:32)
[2024-12-15] MEDS: INSULIN HUMAN LISPRO (*BKC) 1,000 UNITS/10 ML VIAL SUB-Q ×2 (08:32→12:11)
[2024-12-15] MEDS: metFORMIN HCL 500 MG TABLET PO ×2 (08:32→17:04)
[2024-12-15] MEDS: INSULIN GLARGINE (*BKC) 1,000 UNITS/10 ML VIAL 35 UNITS SUB-Q (08:32)
[2024-12-15 08:33] VITALS: PULSE 81
[2024-12-15] MEDS: AMIODARONE HCL 200 MG TABLET PO (08:33)
[2024-12-15] MEDS: ATORVASTATIN 10 MG TABLET 20 MG PO (08:33)
[2024-12-15] MEDS: MIDODRINE HCL 2.5 MG TABLET 10 MG PO ×3 (08:33→17:04)
[2024-12-15] MEDS: SACUBITRIL/VALSARTAN 24-26 MG TABLET 0.5 TAB PO ×2 (08:33→21:02)
[2024-12-15 08:34] VITALS: PULSE 81
[2024-12-15] MEDS: EMPAGLIFLOZIN 10 MG TABLET PO (08:34)
[2024-12-15] MEDS: METOPROLOL TARTRATE 12.5 MG TABLET PO ×2 (08:34→21:03)
[2024-12-15] MEDS: ASPIRIN 81 MG ENTERIC TABLET PO (08:34)
[2024-12-15] MEDS: SPIRONOLACTONE 25 MG TABLET PO ×2 (08:34→21:03)
[2024-12-15] MEDS: PANTOPRAZOLE 40 MG TABLET PO ×2 (08:34→21:07)
[2024-12-15] MEDS: FUROSEMIDE 40 MG TABLET PO ×2 (08:35→17:04)
--- NOTE | 2024-12-15 10:46 | P.PNIM_ITS ---
Progress Note: A&P Assessment and Plan (1) Weakness: Code(s): R53.1 - Weakness Status: Acute Assessment and Plan: * PT and OT ordered 12/15 * No change (2) Cardiomyopathy: Code(s): I42.9 - Cardiomyopathy, unspecified Status: Acute Assessment and Plan: * continue Entresto, Lasix, metoprolol * Current Echo severe global left ventricle systolic dysfunction thrombus was seen in the lateral wall LVEF estimated at 15-20% * Jane stim implant * ICD present * F/U Dr. Madsen 12/20/202412/15 * No change (3) Atrial fibrillation: Code(s): I48.91 - Unspecified atrial fibrillation Status: Chronic Assessment and Plan: * continue amiodarone and metoprolol * INR 1.5 today * 2 mg Coumadin for tonight * PT/INR Daily * adjust Coumadin 2.0-3.0 12/15 * INR 1.9 * Will increase Coumadin to 3 mg for tonight * Recheck PT/INR in the morning (4) Hyperlipidemia: Code(s): E78.5 - Hyperlipidemia, unspecified Status: Acute Assessment and Plan: * continue aspirin and atorvastatin 12/15 * No change (5) Type 2 diabetes mellitus: Code(s): E11.9 - Type 2 diabetes mellitus without complications Status: Acute Assessment and Plan: * Blood sugars ranging 162-261 * Hgb A1C was 6.7 on 12/01/2024 * Accu checks AC/HS * low-dose SSI ordered * continue metformin * continue Lantus 35 units * hypoglycemic protocol in place * Diabetic diet ordered 12/15 * Blood glucose today was greater than 450 and she was given an additional 8 units with her 5 units of sliding scale insulin * Repeat blood glucose was 165 this afternoon * Encourage patient to stick with diabetic diet (6) Hypothyroidism: Code(s): E03.9 - Hypothyroidism, unspecified Status: Acute Assessment and Plan: * continue Synthroid 12/15 * No change to current treatment plan (7) GERD (gastroesophageal reflux disease): Code(s): K21.9 - Gastro-esophageal reflux disease without esophagitis Status: Acute Assessment and Plan: * continue Protonix b.i.d. * Tums ordered as well 12/15 * No change to current treatment plan (8) C. difficile diarrhea: Code(s): A04.72 - Enterocolitis due to Clostridium difficile, not specified as recurrent Status: Acute Assessment and Plan: * Continue oral vancomycin 12/15 * No change to current treatment (9) Atrial thrombus: Code(s): I51.3 - Intracardiac thrombosis, not elsewhere classified Status: Acute Assessment and Plan: * continue Coumadin * PT/INR daily * adjust as needed 12/15 * INR 1.9 * Increase Coumadin to 3 mg tonight * Continue to monitor (10) BI (obstructive sleep apnea): Code(s): G47.33 - Obstructive sleep apnea (adult) (pediatric) Status: Acute Assessment and Plan: * Cpap 12/15 * No change Time Spent With Patient Time with patient: 25 - 35 minutes Subjective Date/time seen: 12/15/24 10:46 Interval history: Interval history: This is a 59-year-old female with a significant past medical history of AFib, type 2 diabetes mellitus, depression, anxiety, chronic pain, arthritis, hypertension, hyperlipidemia, fibromyalgia, migraine, thyroid cancer, hypothyroidism, coronary disease, sleep, restless leg syndrome, irritable bowel syndrome, osteoporosis, GERD, CHF, former smoker who presented to [facility] for rehab. Patient recently had surgery on 11/18/2024 at [facility] for her chronic combined systolic and diastolic heart failure and had a Johanny stem placement. Following that surgery she came to [facility] for rehab however during that time she developed chest pain with concerns for NSTEMI with elevated troponins and was transferred to [facility] for further evaluation and treatment. Acute coronary syndrome was ruled out however they found a new atrial thrombosis currently already on Coumad in but has not been therapeutic. She did not have any cardiac events and was transferred back to [facility] for rehab in stable condition. Subjective: Patient denies any new complaints today. INR 1.9, Coumadin increased to 3 mg tonight. BG today was >400 and she was given an extra 8 units with her sliding scale today. She denies any new complaints. Review of Systems Review of Systems: All systems reviewed & are unremarkable except as noted in HPI and below Exam Narrative: General: In no acute distress, well nourished Head: atraumatic, no encephalopathy Eyes: PERRLA, sclera clear ENT: moist mucous membranes, nasal passages clear Neck: supple, no JVD, no adenopathy, trachea midline Cardiac: Normal S1 and S2. No murmur, gallops or friction rubs, peripheral pulses intact. Respiratory: Lungs clear to auscultation, no adventitious lung sounds, currently on 3L NC Gastrointestinal: soft, non-distended, non-tender, normoactive bowel sounds. : voiding without difficulty. Extremities: moves all extremities well, mild lower extremity edema Skin: clean, dry, intact. No wounds or lesions. Neuro: Alert and oriented x4, cranial nerves intact, no neuro deficits. Psych: normal mood, normal affect, interactive Objective Data Vital Signs Vital Signs: Vital Signs - 24 hr 12/14/24 18:30 12/14/24 20:17 12/14/24 23:44 Temperature 97.8 F 97.0 F L Pulse Rate 82 58 L 58 L Respiratory Rate 19 18 Blood Pressure 90/78 L 97/78 L Pulse Oximetry 94 100 Oxygen Delivery Nasal Cannula CPAP Oxygen Flow Rate 3 3 12/15/24 08:00 12/15/24 08:33 12/15/24 08:34 Temperature 98.4 F Pulse Rate 80 81 81 Respiratory Rate 16 Blood Pressure 130/71 Pulse Oximetry 94 Oxygen Delivery Nasal Cannula Oxygen Flow Rate 3 Intake/Output Intake/Output: Intake & Output 12/12/24 12/13/24 12/14/24 12/15/24 23:59 23:59 23:59 23:59 Intake Total 1720 2845 3445 590 Output Total 1400 700 275 Balance 1720 1445 2745 315 Meds/Results Medications: Active Medications Generic Name Dose Route Start Last Admin Trade Name Freq PRN Reason Stop Dose Admin Acetaminophen 650 mg 12/09/24 20:01 12/15/24 06:26 Acetaminophen 325 Mg Tablet PO 650 mg Q6H PRN Administration Fever Or Pain 1-3 Alendronate Sodium 70 mg 12/16/24 09:00 Alendronate Sodium 70 Mg Tablet PO WEEKLY ALVINA Amiodarone HCl 200 mg 12/10/24 09:00 12/15/24 08:33 Amiodarone Hcl 200 Mg Tablet PO 200 mg DAILY ALVINA Administration Artificial Tears 2 drop 12/09/24 20:01 Artificial Tears Ophth Soln 15 Ml Bottle EACH EYE TID PRN Dry Eye(S) Aspirin 81 mg 12/10/24 09:00 12/15/24 08:34 Aspirin 81 Mg Enteric Tablet PO 81 mg DAILY ALVINA Administration Atorvastatin Calcium 20 mg 12/10/24 09:00 12/15/24 08:33 Atorvastatin 10 Mg Tablet PO 20 mg DAILY ALVINA Administration Bisacodyl 10 mg 12/09/24 20:01 Bisacodyl 5 Mg Tablet Ec PO DAILY PRN Constipation Bisacodyl 10 mg 12/09/24 20:01 Bisacodyl 10 Mg Suppository RECTAL DAILY PRN Constipation Calcium Carbonate 400 mg 12/09/24 20:01 12/13/24 16:12 Calcium Carbonate (Tums) 500 Mg (200 Mg Elemental) PO 400 mg TID PRN Administration dyspepsia Cyclobenzaprine HCl 10 mg 12/09/24 20:01 12/15/24 06:26 Cyclobenzaprine Hcl 10 Mg Tablet PO 10 mg TID PRN Administration Muscle Spasms Dextrose 12.5 gm 12/09/24 20:07 Dextrose 50% 25 Gm/50 Ml Syringe IV PUSH PRN PRN Hypoglycemia Protocol Empagliflozin 10 mg 12/10/24 09:00 12/15/24 08:34 Empagliflozin 10 Mg Tablet PO 10 mg DAILY ALVINA Administration Ergocalciferol 50,000 units 12/10/24 09:00 12/10/24 08:44 Ergocalciferol 50,000 Units Capsule PO 50,000 units WEEKLY ALVINA Administration Furosemide 40 mg 12/10/24 09:00 12/15/24 08:35 Furosemide 40 Mg Tablet PO 40 mg BID ALVINA Administration Glucagon 1 mg 12/09/24 20:07 Glucagon For Inj 1 Mg Vial IM PRN PRN Hypoglycemia Protocol Glucose 15 gm 12/09/24 20:07 Glucose Oral Gel 15 Gm Of Glucse In 37.5 Gm Tube PO PRN PRN Hypoglycemia Protocol Dextrose 1,000 mls @ 100 mls/hr 12/09/24 20:07 Dextrose 5% 1,000 Ml IVPB PRN PRN Hypoglycemia Protocol Insulin Glargine 35 units 12/10/24 09:00 12/15/24 08:32 Insulin Glargine (*Bkc) 1,000 Units/10 Ml Vial SUB-Q 35 units QAM ALVINA Administration Insulin Human Lispro 2 - 5 units 12/10/24 08:00 12/15/24 08:32 Insulin Human Lispro (*Bkc) 1,000 Units/10 Ml Vial SUB-Q 3 units TIDWM ALVINA Administration Protocol Levothyroxine Sodium 100 mcg 12/10/24 06:30 12/15/24 06:26 Levothyroxine Sodium 100 Mcg Tablet PO 100 mcg DAILY@0630 ALVINA Administration Levothyroxine Sodium 25 mcg 12/10/24 06:30 12/15/24 06:26 Levothyroxine Sodium 25 Mcg Tablet PO 25 mcg DAILY@0630 ALVINA Administration Lidocaine 2 patch 12/11/24 16:45 12/15/24 08:30 Lidocaine 5% Patch TRANSDERM 2 patch DAILY ALVINA Administration Metformin HCl 500 mg 12/10/24 09:00 12/15/24 08:32 Metformin Hcl 500 Mg Tablet PO 500 mg BID ALVINA Administration Metoprolol Tartrate 12.5 mg 12/09/24 21:00 12/15/24 08:34 Metoprolol Tartrate 12.5 Mg Tablet PO 12.5 mg Q12HR ALVINA Administration Midodrine 10 mg 12/10/24 09:00 12/15/24 08:33 Midodrine Hcl 2.5 Mg Tablet PO 10 mg TID ALVINA Administration Mirtazapine 15 mg 12/09/24 21:00 12/14/24 20:20 Mirtazapine 15 Mg Tablet PO 15 mg HS ALVINA Administration * Home Med * 10 mg 12/12/24 15:50 12/14/24 04:48 Rizatriptan 10 Mg PO 01/11/25 15:49 10 mg Tablet Q2H PRN Administration Migraine Headache Non-Formulary Medication 1 patch 12/10/24 09:00 12/10/24 08:44 Buprenorphine TOPICAL 01/09/25 08:59 1 patch Q7D ALVINA Administration Ondansetron HCl 4 mg 12/09/24 20:01 12/15/24 08:34 Ondansetron Hcl Odt 4 Mg Tablet PO 4 mg Q6H PRN Administration Nausea And Vomiting Oxycodone HCl 10 mg 12/10/24 11:35 12/15/24 08:33 Oxycodone Hcl (*Crx) 5 Mg Tab Ir PO 10 mg Q6H PRN Administration Pain 7-10 Pantoprazole Sodium 40 mg 12/09/24 21:00 12/15/24 08:34 Pantoprazole 40 Mg Tablet PO 40 mg Q12HR ALVINA Administration Polyethylene Glycol 17 gm 12/13/24 11:04 Polyethylene Glycol 3350 17 Gm Powd.Pack PO DAILY PRN constipation Potassium Chloride 20 meq 12/10/24 09:00 12/15/24 08:32 Potassium Chloride 20 Meq Er Tablet PO 20 meq DAILY ALVINA Administration Pregabalin 75 mg 12/10/24 09:00 12/15/24 08:32 Pregabalin (*Crx) 25 Mg Capsule PO 75 mg BID ALVINA Administration Ropinirole HCl 0.25 mg 12/09/24 21:00 12/14/24 20:20 Ropinirole Hcl 0.25 Mg Tablet PO 0.25 mg HS ALVINA Administration Sacubitril/Valsartan 0.5 tab 12/09/24 21:00 12/15/24 08:33 Sacubitril/Valsartan 24-26 Mg Tablet PO 0.5 tab Q12HR ALVINA Administration Senna/Docusate Sodium 1 tab 12/13/24 11:04 Senna/Docusate Sodium Tablet PO BID PRN Constipation Sodium Chloride 2 spray 12/09/24 20:01 Saline 0.65% Alexy Soln 44 Ml Btl NASAL Q2H PRN Dry Nasal Passages Spironolactone 25 mg 12/09/24 21:00 12/15/24 08:34 Spironolactone 25 Mg Tablet PO 25 mg Q12HR ALVINA Administration Vancomycin HCl 125 mg 12/09/24 21:00 12/15/24 06:26 Vancomycin Hcl 125 Mg Oral Capsule PO 125 mg Q6HR ALVINA Administration Warfarin Sodium 2.5 mg 12/15/24 17:00 Warfarin (*Pbkc) 2.5 Mg Tablet PO DAILY@1700 [facility] Labs Labs: Laboratory Results - last 24 hr 12/14/24 12/14/24 12/14/24 12:03 16:56 20:15 PT INR POC Capillary Glucose 328 H 242 H 272 H 12/15/24 12/15/24 05:05 08:03 PT 20.2 H INR 1.9 POC Capillary Glucose 246 H Quality VTE Prophylaxis VTE prophylaxis: pharmacologic ordered
[2024-12-15 11:53] LABS: Glucose Point of Care > 450 mg/dl (65-105)
[2024-12-15] MEDS: INSULIN HUMAN LISPRO (*BKC) 1,000 UNITS/10 ML VIAL 8 UNITS SUB-Q (12:11)
[2024-12-15 16:00] VITALS: BP 104/72; PULSE 81; RESP 19; TEMP 36.3; O2SAT 94
[2024-12-15] MEDS: WARFARIN (*PBKC) 1 MG TABLET 3 MG PO (17:04)
[2024-12-15 17:08] LABS: Glucose Point of Care 165 mg/dl (65-105)
[2024-12-15] MEDS: rOPINIRole HCL 0.25 MG TABLET PO (21:02)
[2024-12-15 21:03] VITALS: PULSE 113
[2024-12-15 21:03] LABS: Glucose Point of Care 317 mg/dl (65-105)
[2024-12-15] MEDS: MIRTAZAPINE 15 MG TABLET PO (21:07)
[2024-12-16] VITALS (8 sets, daily range): BP systolic 91–99; BP diastolic 55–75; PULSE 80–111; RESP 17–22; TEMP 36–36.1; O2SAT 98–100
[2024-12-16] MEDS: ACETAMINOPHEN 325 MG TABLET 650 MG PO ×3 (00:04→16:59)
[2024-12-16] MEDS: VANCOMYCIN HCL 125 MG ORAL CAPSULE PO ×5 (00:04→23:20)
[2024-12-16] MEDS: oxyCODONE HCL (*CRX) 5 MG TAB IR 10 MG PO ×4 (05:07→23:21)
[2024-12-16] MEDS: ONDANSETRON HCL ODT 4 MG TABLET PO ×3 (05:08→18:02)
[2024-12-16] MEDS: LEVOTHYROXINE SODIUM 100 MCG TABLET PO (05:08)
[2024-12-16] MEDS: LEVOTHYROXINE SODIUM 25 MCG TABLET PO (05:09)
[2024-12-16 05:36] LABS: INR 2.9; Prothrombin Time 28.7 Seconds (9.50-12.1)
[2024-12-16 08:02] LABS: Glucose Point of Care 313 mg/dl (65-105)
[2024-12-16] MEDS: LIDOCAINE 5% PATCH 2 PATCH TRANSDERM (08:07)
[2024-12-16] MEDS: INSULIN HUMAN LISPRO (*BKC) 1,000 UNITS/10 ML VIAL SUB-Q ×2 (08:09→12:11)
[2024-12-16] MEDS: MIDODRINE HCL 2.5 MG TABLET 10 MG PO ×3 (08:12→17:00)
[2024-12-16] MEDS: METOPROLOL TARTRATE 12.5 MG TABLET PO ×2 (08:12→20:20)
[2024-12-16] MEDS: FUROSEMIDE 40 MG TABLET PO ×2 (08:12→17:00)
[2024-12-16] MEDS: CALCIUM CARBONATE (TUMS) 500 MG (200 MG ELEMENTAL) 400 MG PO ×3 (08:12→16:58)
[2024-12-16] MEDS: PREGABALIN (*CRX) 25 MG CAPSULE 75 MG PO ×2 (08:12→16:59)
[2024-12-16] MEDS: POTASSIUM CHLORIDE 20 MEQ ER TABLET PO (08:13)
[2024-12-16] MEDS: PANTOPRAZOLE 40 MG TABLET PO ×2 (08:13→20:20)
[2024-12-16] MEDS: metFORMIN HCL 500 MG TABLET PO ×2 (08:13→17:00)
[2024-12-16] MEDS: ATORVASTATIN 10 MG TABLET 20 MG PO (08:13)
[2024-12-16] MEDS: ASPIRIN 81 MG ENTERIC TABLET PO (08:13)
[2024-12-16] MEDS: CYCLOBENZAPRINE HCL 10 MG TABLET PO ×4 (08:13→23:21)
[2024-12-16] MEDS: AMIODARONE HCL 200 MG TABLET PO (08:13)
[2024-12-16] MEDS: SPIRONOLACTONE 25 MG TABLET PO ×2 (08:13→20:20)
[2024-12-16] MEDS: SACUBITRIL/VALSARTAN 24-26 MG TABLET 0.5 TAB PO ×2 (08:13→20:26)
[2024-12-16] MEDS: EMPAGLIFLOZIN 10 MG TABLET PO (08:13)
--- NOTE | 2024-12-16 08:19 | P.PNIM_ITS ---
Progress Note: A&P Assessment and Plan (1) Weakness: Code(s): R53.1 - Weakness Status: Acute Assessment and Plan: * PT and OT ordered 12/15 * No change (2) Cardiomyopathy: Code(s): I42.9 - Cardiomyopathy, unspecified Status: Acute Assessment and Plan: * continue Entresto, Lasix, metoprolol * Current Echo severe global left ventricle systolic dysfunction thrombus was seen in the lateral wall LVEF estimated at 15-20% * Jane stim implant * ICD present * F/U Dr. Madsen 12/20/202412/15 * No change (3) Atrial fibrillation: Code(s): I48.91 - Unspecified atrial fibrillation Status: Chronic Assessment and Plan: * continue amiodarone and metoprolol * INR 1.5 today * 2 mg Coumadin for tonight * PT/INR Daily * adjust Coumadin 2.0-3.0 12/15 * INR 1.9 * Will increase Coumadin to 3 mg for tonight * Recheck PT/INR in the morning 12/16 * INR 2.9 * Will decrease to 2.5 * continue to trend (4) Hyperlipidemia: Code(s): E78.5 - Hyperlipidemia, unspecified Status: Acute Assessment and Plan: * continue aspirin and atorvastatin 12/15 * No change (5) Type 2 diabetes mellitus: Code(s): E11.9 - Type 2 diabetes mellitus without complications Status: Acute Assessment and Plan: * Blood sugars ranging 162-261 * Hgb A1C was 6.7 on 12/01/2024 * Accu checks AC/HS * low-dose SSI ordered * continue metformin * continue Lantus 35 units * hypoglycemic protocol in place * Diabetic diet ordered 12/15 * Blood glucose today was greater than 450 and she was given an additional 8 units with her 5 units of sliding scale insulin * Repeat blood glucose was 165 this afternoon * Encourage patient to stick with diabetic diet 12/16 * Blood glucose ranging 313-317 * Will add meal time insulin 3 units TID with meals (6) Hypothyroidism: Code(s): E03.9 - Hypothyroidism, unspecified Status: Acute Assessment and Plan: * continue Synthroid 12/15 * No change to current treatment plan (7) GERD (gastroesophageal reflux disease): Code(s): K21.9 - Gastro-esophageal reflux disease without esophagitis Status: Acute Assessment and Plan: * continue Protonix b.i.d. * Tums ordered as well 12/15 * No change to current treatment plan (8) C. difficile diarrhea: Code(s): A04.72 - Enterocolitis due to Clostridium difficile, not specified as recurrent Status: Acute Assessment and Plan: * Continue oral vancomycin 12/15 * No change to current treatment (9) Atrial thrombus: Code(s): I51.3 - Intracardiac thrombosis, not elsewhere classified Status: Acute Assessment and Plan: * continue Coumadin * PT/INR daily * adjust as needed 12/15 * INR 1.9 * Increase Coumadin to 3 mg tonight * Continue to monitor 12/16 * INR 2.9 * Will decrease coumadin to 2.5 tonight * Continue to trend (10) BI (obstructive sleep apnea): Code(s): G47.33 - Obstructive sleep apnea (adult) (pediatric) Status: Acute Assessment and Plan: * Cpap 12/15 * No change Time Spent With Patient Time with patient: 15 - 25 minutes Subjective Date/time seen: 12/16/24 08:19 Interval history: Interval history: This is a 59-year-old female with a significant past medical history of AFib, type 2 diabetes mellitus, depression, anxiety, chronic pain, arthritis, hypertension, hyperlipidemia, fibromyalgia, migraine, thyroid cancer, hypothyroidism, coronary disease, sleep, restless leg syndrome, irritable bowel syndrome, osteoporosis, GERD, CHF, former smoker who presented to [facility] for rehab. Patient recently had surgery on 11/18/2024 at [facility] for her chronic combined systolic and diastolic heart failure and had a Johanny stem placement. Following that surgery she came to [facility] for rehab however during that time she developed chest pain with concerns for NSTEMI with elevated troponins and was transferred to [facility] for further evaluation and treatment. Acute coronary syndrome was ruled out however they found a new atrial thrombosis currently already on Coumadin but has not been therapeutic. She did not have any cardiac events and was transferred back to [facility] for rehab in stable condition. Subjective: Patient denies any new complaints today. Labs reviewed Review of Systems Review of Systems: All systems reviewed & are unremarkable except as noted in HPI and below Exam Narrative: General: In no acute distress, well nourished Cardiac: Normal S1 and S2. No murmur, gallops or friction rubs, peripheral pulses intact. Respiratory: Lungs clear to auscultation, no adventitious lung sounds, currently on 3L NC Gastrointestinal: soft, non-distended, non-tender, normoactive bowel sounds. : voiding without difficulty. Neuro: Alert and oriented x4 Objective Data Vital Signs Vital Signs: Vital Signs - 24 hr 12/15/24 08:33 12/15/24 08:34 12/15/24 16:00 Temperature 97.4 F L Pulse Rate 81 81 81 Respiratory Rate 19 Blood Pressure 104/72 Pulse Oximetry 94 Oxygen Delivery Oxygen Flow Rate 12/15/24 21:03 12/16/24 00:00 Temperature 97.0 F L Pulse Rate 113 H 85 Respiratory Rate 18 Blood Pressure 99/75 L Pulse Oximetry 98 Oxygen Delivery Nasal Cannula Oxygen Flow Rate 3 Intake/Output Intake/Output: Intake & Output 12/13/24 12/14/24 12/15/24 12/16/24 23:59 23:59 23:59 23:59 Intake Total 2845 9755 2290 300 Output Total 1400 700 275 700 Balance 1445 8441 2014 Meds/Results Medications: Active Medications Generic Name Dose Route Start Last Admin Trade Name Freq PRN Reason Stop Dose Admin Acetaminophen 650 mg 12/09/24 20:01 12/16/24 00:04 Acetaminophen 325 Mg Tablet PO 650 mg Q6H PRN Administration Fever Or Pain 1-3 Alendronate Sodium 70 mg 12/16/24 09:00 Alendronate Sodium 70 Mg Tablet PO WEEKLY ALVINA Amiodarone HCl 200 mg 12/10/24 09:00 12/15/24 08:33 Amiodarone Hcl 200 Mg Tablet PO 200 mg DAILY ALVINA Administration Artificial Tears 2 drop 12/09/24 20:01 Artificial Tears Ophth Soln 15 Ml Bottle EACH EYE TID PRN Dry Eye(S) Aspirin 81 mg 12/10/24 09:00 12/15/24 08:34 Aspirin 81 Mg Enteric Tablet PO 81 mg DAILY ALVINA Administration Atorvastatin Calcium 20 mg 12/10/24 09:00 12/15/24 08:33 Atorvastatin 10 Mg Tablet PO 20 mg DAILY ALVINA Administration Bisacodyl 10 mg 12/09/24 20:01 Bisacodyl 5 Mg Tablet Ec PO DAILY PRN Constipation Bisacodyl 10 mg 12/09/24 20:01 Bisacodyl 10 Mg Suppository RECTAL DAILY PRN Constipation Calcium Carbonate 400 mg 12/09/24 20:01 12/13/24 16:12 Calcium Carbonate (Tums) 500 Mg (200 Mg Elemental) PO 400 mg TID PRN Administration dyspepsia Cyclobenzaprine HCl 10 mg 12/09/24 20:01 12/15/24 18:36 Cyclobenzaprine Hcl 10 Mg Tablet PO 10 mg TID PRN Administration Muscle Spasms Dextrose 12.5 gm 12/09/24 20:07 Dextrose 50% 25 Gm/50 Ml Syringe IV PUSH PRN PRN Hypoglycemia Protocol Empagliflozin 10 mg 12/10/24 09:00 12/15/24 08:34 Empagliflozin 10 Mg Tablet PO 10 mg DAILY ALVINA Administration Ergocalciferol 50,000 units 12/10/24 09:00 12/10/24 08:44 Ergocalciferol 50,000 Units Capsule PO 50,000 units WEEKLY ALVINA Administration Furosemide 40 mg 12/10/24 09:00 12/15/24 17:04 Furosemide 40 Mg Tablet PO 40 mg BID ALVINA Administration Glucagon 1 mg 12/09/24 20:07 Glucagon For Inj 1 Mg Vial IM PRN PRN Hypoglycemia Protocol Glucose 15 gm 12/09/24 20:07 Glucose Oral Gel 15 Gm Of Glucse In 37.5 Gm Tube PO PRN PRN Hypoglycemia Protocol Dextrose 1,000 mls @ 100 mls/hr 12/09/24 20:07 Dextrose 5% 1,000 Ml IVPB PRN PRN Hypoglycemia Protocol Insulin Glargine 35 units 12/10/24 09:00 12/15/24 08:32 Insulin Glargine (*Bkc) 1,000 Units/10 Ml Vial SUB-Q 35 units QAM ALVINA Administration Insulin Human Lispro 2 - 5 units 12/10/24 08:00 12/15/24 17:05 Insulin Human Lispro (*Bkc) 1,000 Units/10 Ml Vial SUB-Q Not Given TIDWM ALVINA Protocol Levothyroxine Sodium 100 mcg 12/10/24 06:30 12/16/24 05:08 Levothyroxine Sodium 100 Mcg Tablet PO 100 mcg DAILY@0630 ALVINA Administration Levothyroxine Sodium 25 mcg 12/10/24 06:30 12/16/24 05:09 Levothyroxine Sodium 25 Mcg Tablet PO 25 mcg DAILY@0630 ALVINA Administration Lidocaine 2 patch 12/11/24 16:45 12/15/24 08:30 Lidocaine 5% Patch TRANSDERM 2 patch DAILY ALVINA Administration Metformin HCl 500 mg 12/10/24 09:00 12/15/24 17:04 Metformin Hcl 500 Mg Tablet PO 500 mg BID ALVINA Administration Metoprolol Tartrate 12.5 mg 12/09/24 21:00 12/15/24 21:03 Metoprolol Tartrate 12.5 Mg Tablet PO 12.5 mg Q12HR ALVINA Administration Midodrine 10 mg 12/10/24 09:00 12/15/24 17:04 Midodrine Hcl 2.5 Mg Tablet PO 10 mg TID ALVINA Administration Mirtazapine 15 mg 12/09/24 21:00 12/15/24 21:07 Mirtazapine 15 Mg Tablet PO 15 mg HS ALVINA Administration * Home Med * 10 mg 12/12/24 15:50 12/14/24 04:48 Rizatriptan 10 Mg PO 01/11/25 15:49 10 mg Tablet Q2H PRN Administration Migraine Headache Non-Formulary Medication 1 patch 12/10/24 09:00 12/10/24 08:44 Buprenorphine TOPICAL 01/09/25 08:59 1 patch Q7D ALVINA Administration Ondansetron HCl 4 mg 12/09/24 20:01 12/16/24 05:08 Ondansetron Hcl Odt 4 Mg Tablet PO 4 mg Q6H PRN Administration Nausea And Vomiting Oxycodone HCl 10 mg 12/10/24 11:35 12/16/24 05:07 Oxycodone Hcl (*Crx) 5 Mg Tab Ir PO 10 mg Q6H PRN Administration Pain 7-10 Pantoprazole Sodium 40 mg 12/09/24 21:00 12/15/24 21:07 Pantoprazole 40 Mg Tablet PO 40 mg Q12HR ALVINA Administration Polyethylene Glycol 17 gm 12/13/24 11:04 Polyethylene Glycol 3350 17 Gm Powd.Pack PO DAILY PRN constipation Potassium Chloride 20 meq 12/10/24 09:00 12/15/24 08:32 Potassium Chloride 20 Meq Er Tablet PO 20 meq DAILY ALVINA Administration Pregabalin 75 mg 12/10/24 09:00 12/15/24 17:04 Pregabalin (*Crx) 25 Mg Capsule PO 75 mg BID ALVINA Administration Ropinirole HCl 0.25 mg 12/09/24 21:00 12/15/24 21:02 Ropinirole Hcl 0.25 Mg Tablet PO 0.25 mg HS ALVINA Administration Sacubitril/Valsartan 0.5 tab 12/09/24 21:00 12/15/24 21:02 Sacubitril/Valsartan 24-26 Mg Tablet PO 0.5 tab Q12HR ALVINA Administration Senna/Docusate Sodium 1 tab 12/13/24 11:04 Senna/Docusate Sodium Tablet PO BID PRN Constipation Sodium Chloride 2 spray 12/09/24 20:01 Saline 0.65% Alexy Soln 44 Ml Btl NASAL Q2H PRN Dry Nasal Passages Spironolactone 25 mg 12/09/24 21:00 12/15/24 21:03 Spironolactone 25 Mg Tablet PO 25 mg Q12HR ALVINA Administration Vancomycin HCl 125 mg 12/09/24 21:00 12/16/24 05:09 Vancomycin Hcl 125 Mg Oral Capsule PO 125 mg Q6HR ALVINA Administration Warfarin Sodium 3 mg 12/15/24 17:00 12/15/24 17:04 Warfarin (*Pbkc) 1 Mg Tablet PO 3 mg DAILY@1700 ALVINA Administration Labs Labs: Laboratory Results - last 24 hr 12/15/24 12/15/24 12/15/24 11:40 17:03 21:02 PT INR POC Capillary Glucose > 450 H 165 H 317 H 12/16/24 12/16/24 05:18 07:56 PT 28.7 H D INR 2.9 POC Capillary Glucose 313 H Quality VTE Prophylaxis VTE prophylaxis: pharmacologic ordered
[2024-12-16] MEDS: INSULIN GLARGINE (*BKC) 1,000 UNITS/10 ML VIAL 35 UNITS SUB-Q (09:15)
--- NOTE | 2024-12-16 11:10 | PM.EVENT ---
Event Note Event Note Event Note: Called by bedside nurse about patient fall. Patient was being transferred back to bed and her knees gave out. She landed on her both knees and then onto her left hip. They were able to get her back to bed and did not see any lacerations or redness seen. She denies any new pain at this time. We will continue to monitor.
--- NOTE | 2024-12-16 11:24 | PC.NURSE ---
At [address] BAILIFF OR SHERIFF related to patient being found on floor. Pt has no contusions, bruises or bumps noted. Not complaining of any pain out of her normal. COURT BAILIFF OR SHERIFF informs to call if she complains of pain or discomfort or has any changes. Nursing mill labor supervisor notified at 1110, charge nurse noted r/t helping with patient at this time.
--- NOTE | 2024-12-16 11:30 | PC.NURSE ---
Family requesting xrays r/t to incident, [employer]BOARD SPECIALIST made aware.
[2024-12-16 12:04] LABS: Glucose Point of Care 327 mg/dl (65-105)
[2024-12-16] MEDS: INSULIN HUMAN LISPRO (*BKC) 1,000 UNITS/10 ML VIAL 3 UNITS SUB-Q ×2 (12:12→16:58)
--- NOTE | 2024-12-16 12:31 | PC.NURSE ---
Spoke with Ana (daughter) r/t Buprenorphine Patch due tomorrow and facility needed it to be brought in from home. Ana informs her dad (patients ) will be bringing it up today.
[2024-12-16 14:56] LABS: Glucose Point of Care 159 mg/dl (65-105)
[2024-12-16] MEDS: WARFARIN (*PBKC) 2.5 MG TABLET PO (17:00)
[2024-12-16 20:20] LABS: Glucose Point of Care 165 mg/dl (65-105)
[2024-12-16] MEDS: MIRTAZAPINE 15 MG TABLET PO (20:20)
[2024-12-16] MEDS: rOPINIRole HCL 0.25 MG TABLET PO (20:20)
[2024-12-17] VITALS (12 sets, daily range): BP systolic 93–127; BP diastolic 57–62; PULSE 64–111; RESP 17–20; TEMP 36–37.1; O2SAT 96–99
[2024-12-17] MEDS: oxyCODONE HCL (*CRX) 5 MG TAB IR 10 MG PO ×4 (06:12→20:33)
[2024-12-17] MEDS: LEVOTHYROXINE SODIUM 100 MCG TABLET PO (06:12)
[2024-12-17] MEDS: LEVOTHYROXINE SODIUM 25 MCG TABLET PO (06:12)
[2024-12-17] MEDS: VANCOMYCIN HCL 125 MG ORAL CAPSULE PO ×4 (06:12→23:51)
[2024-12-17] MEDS: ALENDRONATE SODIUM 70 MG TABLET PO (06:13)
[2024-12-17 06:54] LABS: Hematocrit 32.2 % (35.0-49.0); Hemoglobin 8.9 g/dL (12.0-15.0); Mean Corpuscular HGB Conc 27.6 g/dL (32-36); Mean Corpuscular Hemoglobin 22.9 pg (27.0-31.0); Mean Platelet Volume 10.2 fl (9.2-11.8); Platelet Count Result 479 K/mm3 (150-420); Red Blood Count 3.88 M/mm3 (4.20-5.40); Red Cell Distribution Width 20.7 % (11.6-14.4); White Blood Count 11.8 K/mm3 (4.8-10.8)
[2024-12-17 07:15] LABS: Alanine Aminotransferase 42 U/L (14-59); Albumin Level 3.8 g/dL (3.4-5.0); Alkaline Phosphatase 109 U/L (46-116); Anion Gap 7 mmol/L (4-12); Aspartate Amino Transferase 15 U/L (15-37); Bilirubin,Total 0.4 mg/dL (0.00-1.00); Blood Urea Nitrogen 38 mg/dL (7-18); Calcium 9.1 mg/dL (8.5-10.1); Carbon Dioxide 35 mmol/L (21-32); Chloride 97 mmol/L (98-108); Estimated CRCL calculation 39 ml/min; Estimated Glomerular Filt Rate 50; Glucose 259 mg/dL (70-99); Osmolality Calculated 306 mOsm/kg (285-295); Potassium 4.7 mmol/L (3.5-5.1); Sodium 139 mmol/L (136-145); Total Protein 6.6 g/dL (6.4-8.2)
[2024-12-17 07:18] LABS: Glucose Point of Care 256 mg/dl (65-105)
[2024-12-17 07:24] LABS: INR 3.6; Prothrombin Time 35.3 Seconds (9.64-11.0)
[2024-12-17 07:25] LABS: Band Neutrophils Percent 1 % (0-6); Lymphocytes Absolute Manual 0.59 K/mm3 (1.1-4.5); Lymphocytes Percent Manual 5 % (18-44); Monocytes Absolute Manual 0.47 K/mm3 (0.1-0.90); Monocytes Percent Manual 4 % (3-9); Neutrophils Absolute Manual 10.73 K/mm3 (1.7-7.2); Neutrophils Percent Manual 90 % (46-73); Platelet Estimate Increased (Adequate); Total Cells Counted 100
[2024-12-17] MEDS: INSULIN HUMAN LISPRO (*BKC) 1,000 UNITS/10 ML VIAL SUB-Q ×2 (08:33→11:34)
[2024-12-17] MEDS: INSULIN HUMAN LISPRO (*BKC) 1,000 UNITS/10 ML VIAL 3 UNITS SUB-Q (08:34)
[2024-12-17] MEDS: INSULIN GLARGINE (*BKC) 1,000 UNITS/10 ML VIAL 35 UNITS SUB-Q (08:34)
[2024-12-17] MEDS: AMIODARONE HCL 200 MG TABLET PO (08:37)
[2024-12-17] MEDS: ATORVASTATIN 10 MG TABLET 20 MG PO (08:38)
[2024-12-17] MEDS: POTASSIUM CHLORIDE 20 MEQ ER TABLET PO (08:38)
[2024-12-17] MEDS: metFORMIN HCL 500 MG TABLET PO ×2 (08:38→16:19)
[2024-12-17] MEDS: SACUBITRIL/VALSARTAN 24-26 MG TABLET 0.5 TAB PO ×2 (08:38→20:32)
[2024-12-17] MEDS: PREGABALIN (*CRX) 25 MG CAPSULE 75 MG PO ×2 (08:38→16:19)
[2024-12-17] MEDS: MIDODRINE HCL 2.5 MG TABLET 10 MG PO ×3 (08:39→16:21)
[2024-12-17] MEDS: SPIRONOLACTONE 25 MG TABLET PO ×2 (08:40→20:34)
[2024-12-17] MEDS: ASPIRIN 81 MG ENTERIC TABLET PO (08:40)
[2024-12-17] MEDS: FUROSEMIDE 40 MG TABLET PO ×2 (08:40→16:21)
[2024-12-17] MEDS: PANTOPRAZOLE 40 MG TABLET PO ×2 (08:40→20:33)
[2024-12-17] MEDS: EMPAGLIFLOZIN 10 MG TABLET PO (08:40)
[2024-12-17] MEDS: ERGOCALCIFEROL 50,000 UNITS CAPSULE 50000 UNITS PO (08:40)
[2024-12-17] MEDS: METOPROLOL TARTRATE 12.5 MG TABLET PO ×2 (08:45→20:32)
[2024-12-17] MEDS: LIDOCAINE 5% PATCH 2 PATCH TRANSDERM (08:53)
--- NOTE | 2024-12-17 09:07 | P.PNIM_ITS ---
Progress Note: A&P Assessment and Plan (1) Weakness: Code(s): R53.1 - Weakness Status: Acute Assessment and Plan: * PT and OT ordered 12/15 * No change (2) Cardiomyopathy: Code(s): I42.9 - Cardiomyopathy, unspecified Status: Acute Assessment and Plan: * continue Entresto, Lasix, metoprolol * Current Echo severe global left ventricle systolic dysfunction thrombus was seen in the lateral wall LVEF estimated at 15-20% * Jane stim implant * ICD present * F/U Dr. Madsen 12/20/202412/15 * No change (3) Atrial fibrillation: Code(s): I48.91 - Unspecified atrial fibrillation Status: Chronic Assessment and Plan: * continue amiodarone and metoprolol * INR 1.5 today * 2 mg Coumadin for tonight * PT/INR Daily * adjust Coumadin 2.0-3.0 12/15 * INR 1.9 * Will increase Coumadin to 3 mg for tonight * Recheck PT/INR in the morning 12/16 * INR 2.9 * Will decrease to 2.5 * continue to trend 12/17 * INR 3.6 * Will decrease to 2 mg tonight * Continue to trend (4) Hyperlipidemia: Code(s): E78.5 - Hyperlipidemia, unspecified Status: Acute Assessment and Plan: * continue aspirin and atorvastatin 12/15 * No change (5) Type 2 diabetes mellitus: Code(s): E11.9 - Type 2 diabetes mellitus without complications Status: Acute Assessment and Plan: * Blood sugars ranging 162-261 * Hgb A1C was 6.7 on 12/01/2024 * Accu checks AC/HS * low-dose SSI ordered * continue metformin * continue Lantus 35 units * hypoglycemic protocol in place * Diabetic diet ordered 12/15 * Blood glucose today was greater than 450 and she was given an additional 8 units with her 5 units of sliding scale insulin * Repeat blood glucose was 165 this afternoon * Encourage patient to stick with diabetic diet 12/16 * Blood glucose ranging 313-317 * Will add meal time insulin 3 units TID with meals 12/17 * BG 165-256 * Will increase meal time insulin to 5 units TID with meals (6) Hypothyroidism: Code(s): E03.9 - Hypothyroidism, unspecified Status: Acute Assessment and Plan: * continue Synthroid 12/15 * No change to current treatment plan (7) GERD (gastroesophageal reflux disease): Code(s): K21.9 - Gastro-esophageal reflux disease without esophagitis Status: Acute Assessment and Plan: * continue Protonix b.i.d. * Tums ordered as well 12/15 * No change to current treatment plan (8) C. difficile diarrhea: Code(s): A04.72 - Enterocolitis due to Clostridium difficile, not specified as recurrent Status: Acute Assessment and Plan: * Continue oral vancomycin / * No change to current treatment (9) Atrial thrombus: Code(s): I51.3 - Intracardiac thrombosis, not elsewhere classified Status: Acute Assessment and Plan: * continue Coumadin * PT/INR daily * adjust as needed 12/15 * INR 1.9 * Increase Coumadin to 3 mg tonight * Continue to monitor 3/6 * INR 2.9 * Will decrease coumadin to 2.5 tonight * Continue to trend 3/7 * INR 3.6 * Will decrease to 2 mg tonight * Continue to trend (10) BI (obstructive sleep apnea): Code(s): G47.33 - Obstructive sleep apnea (adult) (pediatric) Status: Acute Assessment and Plan: * Cpap 3/5 * No change Time Spent With Patient Time with patient: 25 - 35 minutes Subjective Date/time seen: 12/17/24 09:07 Interval history: Interval history: This is a 59-year-old female with a significant past medical history of AFib, type 2 diabetes mellitus, depression, anxiety, chronic pain, arthritis, hypertension, hyperlipidemia, fibromyalgia, migraine, thyroid cancer, hypothyroidism, coronary disease, sleep, restless leg syndrome, irritable bowel syndrome, osteoporosis, GERD, CHF, former smoker who presented to [facility] for rehab. Patient recently had surgery on 11/18/2024 at [facility] for her chronic combined systolic and diastolic heart failure and had a Johanny stem placement. Following that surgery she came to [facility] for rehab however during that time she developed chest pain with concerns for NSTEMI with elevated troponins and was transferred to [facility] for further evaluation and treatment. Acute coronary syndrome was ruled out however they found a new atrial thrombosis currently already on Coumadin but has not been therapeutic. She did not have any cardiac events and was transferred back to [facility] for rehab in stable condition. Subjective: Patient denies any new complaints today. Labs reviewed Review of Systems Review of Systems: All systems reviewed & are unremarkable except as noted in HPI and below Exam Narrative: General: In no acute distress, well nourished Cardiac: Normal S1 and S2. No murmur, gallops or friction rubs, peripheral pulses intact. Respiratory: Lungs clear to auscultation, no adventitious lung sounds, currently on 3L NC Gastrointestinal: soft, non-distended, non-tender, normoactive bowel sounds. : voiding without difficulty. Neuro: Alert and oriented x4 Objective Data Vital Signs Vital Signs: Vital Signs - 24 hr 12/16/24 16:00 12/16/24 20:00 12/16/24 20:20 Temperature 96.8 F L Pulse Rate 101 H 111 H 80 Respiratory Rate 20 17 Blood Pressure 91/64 L Pulse Oximetry 100 99 Oxygen Delivery Nasal Cannula Nasal Cannula Oxygen Flow Rate 3 3 12/17/24 00:00 12/17/24 07:12 12/17/24 07:52 Temperature 97.6 F 96.8 F L 96.8 F L Pulse Rate 111 H 66 Respiratory Rate 17 20 Blood Pressure 127/58 L 106/58 L Pulse Oximetry 99 98 Oxygen Delivery Nasal Cannula Nasal Cannula Oxygen Flow Rate 3 3 12/17/24 08:37 12/17/24 08:45 Temperature Pulse Rate 66 66 Respiratory Rate Blood Pressure Pulse Oximetry Oxygen Delivery Oxygen Flow Rate Intake/Output Intake/Output: Intake & Output 12/14/24 12/15/24 12/16/24 12/17/24 23:59 23:59 23:59 23:59 Intake Total 3445 2290 2040 600 Output Total 700 275 700 Balance 2742014 1340 600 Meds/Results Medications: Active Medications Generic Name Dose Route Start Last Admin Trade Name Freq PRN Reason Stop Dose Admin Acetaminophen 650 mg 12/09/24 20:01 12/16/24 16:59 Acetaminophen 325 Mg Tablet PO 650 mg Q6H PRN Administration Fever Or Pain 1-3 Alendronate Sodium 70 mg 12/17/24 06:30 12/17/24 06:13 Alendronate Sodium 70 Mg Tablet PO 70 mg WEEKLY@0630 ALVINA Administration Amiodarone HCl 200 mg 12/10/24 09:00 12/17/24 08:37 Amiodarone Hcl 200 Mg Tablet PO 200 mg DAILY ALVINA Administration Artificial Tears 2 drop 12/09/24 20:01 Artificial Tears Ophth Soln 15 Ml Bottle EACH EYE TID PRN Dry Eye(S) Aspirin 81 mg 12/10/24 09:00 12/17/24 08:40 Aspirin 81 Mg Enteric Tablet PO 81 mg DAILY ALVINA Administration Atorvastatin Calcium 20 mg 12/10/24 09:00 12/17/24 08:38 Atorvastatin 10 Mg Tablet PO 20 mg DAILY ALVINA Administration Bisacodyl 10 mg 12/09/24 20:01 Bisacodyl 5 Mg Tablet Ec PO DAILY PRN Constipation Bisacodyl 10 mg 12/09/24 20:01 Bisacodyl 10 Mg Suppository RECTAL DAILY PRN Constipation Calcium Carbonate 400 mg 12/09/24 20:01 12/16/24 16:58 Calcium Carbonate (Tums) 500 Mg (200 Mg Elemental) PO 400 mg TID PRN Administration dyspepsia Cyclobenzaprine HCl 10 mg 12/09/24 20:01 12/16/24 23:21 Cyclobenzaprine Hcl 10 Mg Tablet PO 10 mg TID PRN Administration Muscle Spasms Dextrose 12.5 gm 12/09/24 20:07 Dextrose 50% 25 Gm/50 Ml Syringe IV PUSH PRN PRN Hypoglycemia Protocol Empagliflozin 10 mg 12/10/24 09:00 12/17/24 08:40 Empagliflozin 10 Mg Tablet PO 10 mg DAILY ALVINA Administration Ergocalciferol 50,000 units 12/10/24 09:00 12/17/24 08:40 Ergocalciferol 50,000 Units Capsule PO 50,000 units WEEKLY ALVINA Administration Furosemide 40 mg 12/10/24 09:00 12/17/24 08:40 Furosemide 40 Mg Tablet PO 40 mg BID ALVINA Administration Glucagon 1 mg 12/09/24 20:07 Glucagon For Inj 1 Mg Vial IM PRN PRN Hypoglycemia Protocol Glucose 15 gm 12/09/24 20:07 Glucose Oral Gel 15 Gm Of Glucse In 37.5 Gm Tube PO PRN PRN Hypoglycemia Protocol Dextrose 1,000 mls @ 100 mls/hr 12/09/24 20:07 Dextrose 5% 1,000 Ml IVPB PRN PRN Hypoglycemia Protocol Insulin Glargine 35 units 12/10/24 09:00 12/17/24 08:34 Insulin Glargine (*Bkc) 1,000 Units/10 Ml Vial SUB-Q 35 units QAM PENDING SALE TO [facility] Administration Insulin Human Lispro 2 - 5 units 12/10/24 08:00 12/17/24 08:33 Insulin Human Lispro (*Bkc) 1,000 Units/10 Ml Vial SUB-Q 3 units TIDWM PENDING SALE TO [facility] Administration Protocol Insulin Human Lispro 3 units 12/16/24 12:00 12/17/24 08:34 Insulin Human Lispro (*Bkc) 1,000 Units/10 Ml Vial 0.05 units/kg (3 units) 3 units SUB-Q Administration TIDWM PENDING SALE TO [facility] Levothyroxine Sodium 100 mcg 12/10/24 06:30 12/17/24 06:12 Levothyroxine Sodium 100 Mcg Tablet PO 100 mcg DAILY@0630 ALVINA Administration Levothyroxine Sodium 25 mcg 12/10/24 06:30 12/17/24 06:12 Levothyroxine Sodium 25 Mcg Tablet PO 25 mcg DAILY@0630 ALVINA Administration Lidocaine 2 patch 12/11/24 16:45 12/17/24 08:53 Lidocaine 5% Patch TRANSDERM 2 patch DAILY ALVINA Administration Metformin HCl 500 mg 12/10/24 09:00 12/17/24 08:38 Metformin Hcl 500 Mg Tablet PO 500 mg BID ALVINA Administration Metoprolol Tartrate 12.5 mg 12/09/24 21:00 12/17/24 08:45 Metoprolol Tartrate 12.5 Mg Tablet PO 12.5 mg Q12HR ALVINA Administration Midodrine 10 mg 12/10/24 09:00 12/17/24 08:39 Midodrine Hcl 2.5 Mg Tablet PO 10 mg TID ALVINA Administration Mirtazapine 15 mg 12/09/24 21:00 12/16/24 20:20 Mirtazapine 15 Mg Tablet PO 15 mg HS ALVINA Administration * Home Med * 10 mg 12/12/24 15:50 12/14/24 04:48 Rizatriptan 10 Mg PO 01/11/25 15:49 10 mg Tablet Q2H PRN Administration Migraine Headache Non-Formulary Medication 1 patch 12/10/24 09:00 12/10/24 08:44 Buprenorphine TOPICAL 01/09/25 08:59 1 patch Q7D ALVINA Administration Ondansetron HCl 4 mg 12/09/24 20:01 12/16/24 18:02 Ondansetron Hcl Odt 4 Mg Tablet PO 4 mg Q6H PRN Administration Nausea And Vomiting Oxycodone HCl 10 mg 12/16/24 09:18 12/17/24 06:12 Oxycodone Hcl (*Crx) 5 Mg Tab Ir PO 10 mg Q5H PRN Administration Pain 7-10 Pantoprazole Sodium 40 mg 12/09/24 21:00 12/17/24 08:40 Pantoprazole 40 Mg Tablet PO 40 mg Q12HR ALVINA Administration Polyethylene Glycol 17 gm 12/13/24 11:04 Polyethylene Glycol 3350 17 Gm Powd.Pack PO DAILY PRN constipation Potassium Chloride 20 meq 12/10/24 09:00 12/17/24 08:38 Potassium Chloride 20 Meq Er Tablet PO 20 meq DAILY ALVINA Administration Pregabalin 75 mg 12/10/24 09:00 12/17/24 08:38 Pregabalin (*Crx) 25 Mg Capsule PO 75 mg BID ALVINA Administration Ropinirole HCl 0.25 mg 12/09/24 21:00 12/16/24 20:20 Ropinirole Hcl 0.25 Mg Tablet PO 0.25 mg HS ALVINA Administration Sacubitril/Valsartan 0.5 tab 12/09/24 21:00 12/17/24 08:38 Sacubitril/Valsartan 24-26 Mg Tablet PO 0.5 tab Q12HR ALVINA Administration Senna/Docusate Sodium 1 tab 12/13/24 11:04 Senna/Docusate Sodium Tablet PO BID PRN Constipation Sodium Chloride 2 spray 12/09/24 20:01 Saline 0.65% Alexy Soln 44 Ml Btl NASAL Q2H PRN Dry Nasal Passages Spironolactone 25 mg 12/09/24 21:00 12/17/24 08:40 Spironolactone 25 Mg Tablet PO 25 mg Q12HR ALVINA Administration Vancomycin HCl 125 mg 12/09/24 21:00 12/17/24 06:12 Vancomycin Hcl 125 Mg Oral Capsule PO 125 mg Q6HR ALVINA Administration Warfarin Sodium 2 mg 12/17/24 17:00 Warfarin (*Pbkc) 2 Mg Tablet PO DAILY@1700 ALVINA Radiology Results: ITS Impressions Hip/Pelvis X-Ray 12/16/24 14:02 IMPRESSION: Significant degenerative disease with multiple prior fracture deformities without plain radiographic evidence to suggest an acute fracture within the left hip. Knee X-Ray 12/16/24 14:05 IMPRESSION: 1. Mild right knee osteoarthritis. Lumbar Spine X-Ray 12/16/24 14:10 IMPRESSION: 1. Moderate lumbar spondylosis. 2. Posterior fusion procedure from the thoracic spine to the sacrum and iliac bones. 3. Anterior fusion procedure at L5-S1. Labs Labs: Laboratory Results - last 24 hr 12/16/24 12/16/24 12/16/24 11:58 14:51 20:18 WBC RBC Hgb Hct MCV MCH MCHC RDW Plt Count MPV Immature Gran % (Auto) Neut % (Auto) Lymph % (Auto) [place] % (Auto) Eos % (Auto) Baso % (Auto) Lymph # (Auto) [place] # (Auto) Eos # (Auto) Baso # (Auto) Abs Immat Gran (auto) Absolute Neuts (auto) Absolute Nucleated RBC Total Counted Neutrophils % (Manual) Band Neutrophils % Lymphocytes % (Manual) Monocytes % (Manual) Nucleated RBC % Abs Neuts (Manual) Abs Lymphs (Manual) Abs Monocytes (Manual) Platelet Estimate Schistocytes PT INR Sodium Potassium Chloride Carbon Dioxide Anion Gap BUN Creatinine Estim Creat Clear Calc Estimated GFR Glucose POC Capillary Glucose 327 H 159 H 165 H Calculated Osmolality Calcium Total Bilirubin AST ALT Alkaline Phosphatase Total Protein Albumin 12/17/24 12/17/24 06:49 07:13 WBC 11.8 H RBC 3.88 L Hgb 8.9 L Hct 32.2 L MCV 83.0 MCH 22.9 L MCHC 27.6 L RDW 20.7 H Plt Count 479 H MPV 10.2 Immature Gran % (Auto) Not Reportable Neut % (Auto) Not Reportable Lymph % (Auto) Not Reportable [place] % (Auto) Not Reportable Eos % (Auto) Not Reportable Baso % (Auto) Not Reportable Lymph # (Auto) Not Reportable [place] # (Auto) Not Reportable Eos # (Auto) Not Reportable Baso # (Auto) Not Reportable Abs Immat Gran (auto) Not Reportable Absolute Neuts (auto) Not Reportable Absolute Nucleated RBC Not Reportable Total Counted 100 Neutrophils % (Manual) 90 H Band Neutrophils % 1 Lymphocytes % (Manual) 5 L Monocytes % (Manual) 4 Nucleated RBC % Not Reportable Abs Neuts (Manual) 10.73 H Abs Lymphs (Manual) 0.59 L Abs Monocytes (Manual) 0.47 Platelet Estimate Increased Schistocytes Not Reportable PT 35.3 H INR 3.6 Sodium 139 Potassium 4.7 Chloride 97 L Carbon Dioxide 35 H Anion Gap 7 BUN 38 H Creatinine 1.10 H Estim Creat Clear Calc 39 Estimated GFR 50 L Glucose 259 H POC Capillary Glucose 256 H Calculated Osmolality 306 H Calcium 9.1 Total Bilirubin 0.4 AST 15 ALT 42 Alkaline Phosphatase 109 Total Protein 6.6 Albumin 3.8 Quality VTE Prophylaxis VTE prophylaxis: pharmacologic ordered
[2024-12-17] MEDS: INSULIN HUMAN LISPRO (*BKC) 1,000 UNITS/10 ML VIAL 5 UNITS SUB-Q ×2 (11:34→16:56)
[2024-12-17 11:38] LABS: Glucose Point of Care 323 mg/dl (65-105)
[2024-12-17] MEDS: BUPRENORPHINE TOPICAL (12:39)
[2024-12-17] MEDS: [UNRECOGNIZED DRUG - OTHER] TOPICAL (12:39)
[2024-12-17] MEDS: FLUCONAZOLE 150 MG TABLET PO (12:41)
[2024-12-17] MEDS: WARFARIN (*PBKC) 2 MG TABLET PO (16:21)
[2024-12-17 16:34] LABS: Glucose Point of Care 156 mg/dl (65-105)
[2024-12-17] MEDS: ACETAMINOPHEN 325 MG TABLET 650 MG PO (20:29)
[2024-12-17] MEDS: rOPINIRole HCL 0.25 MG TABLET PO (20:33)
[2024-12-17] MEDS: MIRTAZAPINE 15 MG TABLET PO (20:33)
[2024-12-17] MEDS: ONDANSETRON HCL ODT 4 MG TABLET PO (20:46)
--- NOTE | 2024-12-17 22:46 | PC.NURSE ---
Patient finished on commode. Blood steaking noted on the stool. Stool brown in appearance. Hemorrhoid bleeding noted from rectum. Per patient this has been going on for a while . Patient assisted back to bed, CPAP on patient. Call light in hand. Patient reminded to call for assistance. Patient verbalizes understanding.
[2024-12-18] VITALS (8 sets, daily range): BP systolic 103; BP diastolic 59–64; PULSE 93–103; RESP 14–19; TEMP 35.7–36.9; O2SAT 96–100
[2024-12-18] MEDS: oxyCODONE HCL (*CRX) 5 MG TAB IR 10 MG PO ×5 (04:22→20:54)
[2024-12-18] MEDS: LEVOTHYROXINE SODIUM 100 MCG TABLET PO (05:52)
[2024-12-18] MEDS: VANCOMYCIN HCL 125 MG ORAL CAPSULE PO ×4 (05:52→23:40)
[2024-12-18] MEDS: LEVOTHYROXINE SODIUM 25 MCG TABLET PO (05:52)
[2024-12-18 08:03] LABS: Glucose Point of Care 207 mg/dl (65-105)
--- NOTE | 2024-12-18 08:41 | P.PNIM_ITS ---
Progress Note: A&P Assessment and Plan (1) Weakness: Code(s): R53.1 - Weakness Status: Acute Assessment and Plan: * PT and OT ordered 12/15 * No change (2) Cardiomyopathy: Code(s): I42.9 - Cardiomyopathy, unspecified Status: Acute Assessment and Plan: * continue Entresto, Lasix, metoprolol * Current Echo severe global left ventricle systolic dysfunction thrombus was seen in the lateral wall LVEF estimated at 15-20% * Jane stim implant * ICD present * F/U Dr. Madsen 12/20/202412/15 * No change (3) Atrial fibrillation: Code(s): I48.91 - Unspecified atrial fibrillation Status: Chronic Assessment and Plan: * continue amiodarone and metoprolol * INR 1.5 today * 2 mg Coumadin for tonight * PT/INR Daily * adjust Coumadin 2.0-3.0 12/15 * INR 1.9 * Will increase Coumadin to 3 mg for tonight * Recheck PT/INR in the morning 12/16 * INR 2.9 * Will decrease to 2.5 * continue to trend 12/17 * INR 3.6 * Will decrease to 2 mg tonight * Continue to trend 12/18 * INR 3.9 * Will hold coumadin tonight * Continue to trend (4) Hyperlipidemia: Code(s): E78.5 - Hyperlipidemia, unspecified Status: Acute Assessment and Plan: * continue aspirin and atorvastatin 12/15 * No change (5) Type 2 diabetes mellitus: Code(s): E11.9 - Type 2 diabetes mellitus without complications Status: Acute Assessment and Plan: * Blood sugars ranging 162-261 * Hgb A1C was 6.7 on 12/01/2024 * Accu checks AC/HS * low-dose SSI ordered * continue metformin * continue Lantus 35 units * hypoglycemic protocol in place * Diabetic diet ordered 12/15 * Blood glucose today was greater than 450 and she was given an additional 8 units with her 5 units of sliding scale insulin * Repeat blood glucose was 165 this afternoon * Encourage patient to stick with diabetic diet 12/16 * Blood glucose ranging 313-317 * Will add meal time insulin 3 units TID with meals 12/17 * BG 165-256 * Will increase meal time insulin to 5 units TID with meals 12/18 * BG-[id number] * No change to above plan (6) Hypothyroidism: Code(s): E03.9 - Hypothyroidism, unspecified Status: Acute Assessment and Plan: * continue Synthroid 12/15 * No change to current treatment plan (7) GERD (gastroesophageal reflux disease): Code(s): K21.9 - Gastro-esophageal reflux disease without esophagitis Status: Acute Assessment and Plan: * continue Protonix b.i.d. * Tums ordered as well 12/15 * No change to current treatment plan (8) C. difficile diarrhea: Code(s): A04.72 - Enterocolitis due to Clostridium difficile, not specified as recurrent Status: Acute Assessment and Plan: * Continue oral vancomycin 3 * No change to current treatment (9) Atrial thrombus: Code(s): I51.3 - Intracardiac thrombosis, not elsewhere classified Status: Acute Assessment and Plan: * continue Coumadin * PT/INR daily * adjust as needed 12/15 * INR 1.9 * Increase Coumadin to 3 mg tonight * Continue to monitor 3/6 * INR 2.9 * Will decrease coumadin to 2.5 tonight * Continue to trend 3/7 * INR 3.6 * Will decrease to 2 mg tonight * Continue to trend 3/8 * INR 3.9 * Will hold coumadin tonight * Continue to trend (10) BI (obstructive sleep apnea): Code(s): G47.33 - Obstructive sleep apnea (adult) (pediatric) Status: Acute Assessment and Plan: * Cpap 12/15 * No change Time Spent With Patient Time with patient: 25 - 35 minutes Subjective Date/time seen: 12/18/24 08:41 Interval history: Interval history: This is a 59-year-old female with a significant past medical history of AFib, type 2 diabetes mellitus, depression, anxiety, chronic pain, arthritis, hypertension, hyperlipidemia, fibromyalgia, migraine, thyroid cancer, hypothyroidism, coronary disease, sleep, restless leg syndrome, irritable bowel syndrome, osteoporosis, GERD, CHF, former smoker who presented to [facility] for rehab. Patient recently had surgery on 11/18/2024 at [facility] [place] for her chronic combined systolic and diastolic heart failure and had a Johanny stem placement. Following that surgery she came to [facility] for rehab however during that time she developed chest pain with concerns for NSTEMI with elevated troponins and was transferred to [facility] for further evaluation and treatment. Acute coronary syndrome was ruled out however they found a new atrial thrombosis currently already on Coumadin but has not been therapeutic. She did not have any cardiac events and was transferred back to [facility] for rehab in stable condition. Subjective: Patient denies any new complaints today. Labs reviewed Review of Systems Review of Systems: All systems reviewed & are unremarkable except as noted in HPI and below Exam Narrative: General: In no acute distress, well nourished Cardiac: Normal S1 and S2. No murmur, gallops or friction rubs, peripheral pulses intact. Respiratory: Lungs clear to auscultation, no adventitious lung sounds, currently on 3L NC Gastrointestinal: soft, non-distended, non-tender, normoactive bowel sounds. : voiding without difficulty. Neuro: Alert and oriented x4 Objective Data Vital Signs Vital Signs: Vital Signs - 24 hr 12/17/24 08:45 12/17/24 12:38 12/17/24 16:00 Temperature 96.8 F L 98.7 F Pulse Rate 66 64 Respiratory Rate 18 Blood Pressure 118/62 Pulse Oximetry 96 Oxygen Delivery Nasal Cannula Oxygen Flow Rate 3 12/17/24 17:19 12/17/24 20:00 12/17/24 20:00 Temperature 97.9 F 97.6 F Pulse Rate 101 H 101 H Respiratory Rate 20 20 Blood Pressure 93/57 L Pulse Oximetry 97 97 Oxygen Delivery Nasal Cannula Nasal Cannula Oxygen Flow Rate 2 2 12/17/24 20:29 12/17/24 20:32 12/18/24 00:00 Temperature 97.6 F 97.6 F Pulse Rate 101 H Respiratory Rate 19 Blood Pressure Pulse Oximetry Oxygen Delivery Oxygen Flow Rate Intake/Output Intake/Output: Intake & Output 12/15/24 12/16/24 12/17/24 12/18/24 23:59 23:59 23:59 23:59 Intake Total 2290 2040 1540 325 Output Total 275 700 3 400 Balance [facility] [place] [id number] -75 Meds/Results Medications: Active Medications Generic Name Dose Route Start Last Admin Trade Name Freq PRN Reason Stop Dose Admin Acetaminophen 650 mg 12/09/24 20:01 12/17/24 20:29 Acetaminophen 325 Mg Tablet PO 650 mg Q6H PRN Administration Fever Or Pain 1-3 Alendronate Sodium 70 mg 12/17/24 06:30 12/17/24 06:13 Alendronate Sodium 70 Mg Tablet PO 70 mg WEEKLY@0630 ALVINA Administration Amiodarone HCl 200 mg 12/10/24 09:00 12/17/24 08:37 Amiodarone Hcl 200 Mg Tablet PO 200 mg DAILY ALVINA Administration Artificial Tears 2 drop 12/09/24 20:01 Artificial Tears Ophth Soln 15 Ml Bottle EACH EYE TID PRN Dry Eye(S) Aspirin 81 mg 12/10/24 09:00 12/17/24 08:40 Aspirin 81 Mg Enteric Tablet PO 81 mg DAILY ALVINA Administration Atorvastatin Calcium 20 mg 12/10/24 09:00 12/17/24 08:38 Atorvastatin 10 Mg Tablet PO 20 mg DAILY ALVINA Administration Bisacodyl 10 mg 12/09/24 20:01 Bisacodyl 5 Mg Tablet Ec PO DAILY PRN Constipation Bisacodyl 10 mg 12/09/24 20:01 Bisacodyl 10 Mg Suppository RECTAL DAILY PRN Constipation Calcium Carbonate 400 mg 12/09/24 20:01 12/16/24 16:58 Calcium Carbonate (Tums) 500 Mg (200 Mg Elemental) PO 400 mg TID PRN Administration dyspepsia Cyclobenzaprine HCl 10 mg 12/09/24 20:01 12/16/24 23:21 Cyclobenzaprine Hcl 10 Mg Tablet PO 10 mg TID PRN Administration Muscle Spasms Dextrose 12.5 gm 12/09/24 20:07 Dextrose 50% 25 Gm/50 Ml Syringe IV PUSH PRN PRN Hypoglycemia Protocol Empagliflozin 10 mg 12/10/24 09:00 12/17/24 08:40 Empagliflozin 10 Mg Tablet PO 10 mg DAILY ALVINA Administration Ergocalciferol 50,000 units 12/10/24 09:00 12/17/24 08:40 Ergocalciferol 50,000 Units Capsule PO 50,000 units WEEKLY ALVINA Administration Furosemide 40 mg 12/10/24 09:00 12/17/24 16:21 Furosemide 40 Mg Tablet PO 40 mg BID ALVINA Administration Glucagon 1 mg 12/09/24 20:07 Glucagon For Inj 1 Mg Vial IM PRN PRN Hypoglycemia Protocol Glucose 15 gm 12/09/24 20:07 Glucose Oral Gel 15 Gm Of Glucse In 37.5 Gm Tube PO PRN PRN Hypoglycemia Protocol Dextrose 1,000 mls @ 100 mls/hr 12/09/24 20:07 Dextrose 5% 1,000 Ml IVPB PRN PRN Hypoglycemia Protocol Insulin Glargine 35 units 12/10/24 09:00 12/17/24 08:34 Insulin Glargine (*Bkc) 1,000 Units/10 Ml Vial SUB-Q 35 units QAM ALVINA Administration Insulin Human Lispro 2 - 5 units 12/10/24 08:00 12/17/24 16:55 Insulin Human Lispro (*Bkc) 1,000 Units/10 Ml Vial SUB-Q Not Given TIDWM [facility] Protocol Insulin Human Lispro 5 units 12/17/24 12:00 12/17/24 16:56 Insulin Human Lispro (*Bkc) 1,000 Units/10 Ml Vial SUB-Q 5 units TIDWM ALVINA Administration Levothyroxine Sodium 100 mcg 12/10/24 06:30 12/18/24 05:52 Levothyroxine Sodium 100 Mcg Tablet PO 100 mcg DAILY@0630 ALVINA Administration Levothyroxine Sodium 25 mcg 12/10/24 06:30 12/18/24 05:52 Levothyroxine Sodium 25 Mcg Tablet PO 25 mcg DAILY@0630 ALVINA Administration Lidocaine 2 patch 12/11/24 16:45 12/17/24 08:53 Lidocaine 5% Patch TRANSDERM 2 patch DAILY ALVINA Administration Metformin HCl 500 mg 12/10/24 09:00 12/17/24 16:19 Metformin Hcl 500 Mg Tablet PO 500 mg BID ALVINA Administration Metoprolol Tartrate 12.5 mg 12/09/24 21:00 12/17/24 20:32 Metoprolol Tartrate 12.5 Mg Tablet PO 12.5 mg Q12HR ALVINA Administration Midodrine 10 mg 12/10/24 09:00 12/17/24 16:21 Midodrine Hcl 2.5 Mg Tablet PO 10 mg TID ALVINA Administration Mirtazapine 15 mg 12/09/24 21:00 12/17/24 20:33 Mirtazapine 15 Mg Tablet PO 15 mg HS ALVINA Administration * Home Med * 10 mg 12/12/24 15:50 12/14/24 04:48 Rizatriptan 10 Mg PO 01/11/25 15:49 10 mg Tablet Q2H PRN Administration Migraine Headache Non-Formulary Medication 1 patch 12/10/24 09:00 12/17/24 12:39 Buprenorphine TOPICAL 01/09/25 08:59 1 patch Q7D ALVINA Administration Ondansetron HCl 4 mg 12/09/24 20:01 12/17/24 20:46 Ondansetron Hcl Odt 4 Mg Tablet PO 4 mg Q6H PRN Administration Nausea And Vomiting Oxycodone HCl 10 mg 12/17/24 09:13 12/18/24 04:22 Oxycodone Hcl (*Crx) 5 Mg Tab Ir PO 10 mg Q4H PRN Administration Pain 7-10 Pantoprazole Sodium 40 mg 12/09/24 21:00 12/17/24 20:33 Pantoprazole 40 Mg Tablet PO 40 mg Q12HR ALVINA Administration Polyethylene Glycol 17 gm 12/13/24 11:04 Polyethylene Glycol 3350 17 Gm Powd.Pack PO DAILY PRN constipation Potassium Chloride 20 meq 12/10/24 09:00 12/17/24 08:38 Potassium Chloride 20 Meq Er Tablet PO 20 meq DAILY ALVINA Administration Pregabalin 75 mg 12/10/24 09:00 12/17/24 16:19 Pregabalin (*Crx) 25 Mg Capsule PO 75 mg BID ALVINA Administration Ropinirole HCl 0.25 mg 12/09/24 21:00 12/17/24 20:33 Ropinirole Hcl 0.25 Mg Tablet PO 0.25 mg HS ALVINA Administration Sacubitril/Valsartan 0.5 tab 12/09/24 21:00 12/17/24 20:32 Sacubitril/Valsartan 24-26 Mg Tablet PO 0.5 tab Q12HR ALVINA Administration Senna/Docusate Sodium 1 tab 12/13/24 11:04 Senna/Docusate Sodium Tablet PO BID PRN Constipation Sodium Chloride 2 spray 12/09/24 20:01 Saline 0.65% Alexy Soln 44 Ml Btl NASAL Q2H PRN Dry Nasal Passages Spironolactone 25 mg 12/09/24 21:00 12/17/24 20:34 Spironolactone 25 Mg Tablet PO 25 mg Q12HR ALVINA Administration Vancomycin HCl 125 mg 12/09/24 21:00 12/18/24 05:52 Vancomycin Hcl 125 Mg Oral Capsule PO 125 mg Q6HR ALVINA Administration Warfarin Sodium 2 mg 12/17/24 17:00 12/17/24 16:21 Warfarin (*Pbkc) 2 Mg Tablet PO 2 mg DAILY@1700 ALVINA Administration Radiology Results: ITS Impressions Hip/Pelvis X-Ray 12/16/24 14:02 IMPRESSION: Significant degenerative disease with multiple prior fracture deformities without plain radiographic evidence to suggest an acute fracture within the left hip. Knee X-Ray 12/16/24 14:05 IMPRESSION: 1. Mild right knee osteoarthritis. Lumbar Spine X-Ray 12/16/24 14:10 IMPRESSION: 1. Moderate lumbar spondylosis. 2. Posterior fusion procedure from the thoracic spine to the sacrum and iliac bones. 3. Anterior fusion procedure at L5-S1. Labs Labs: Laboratory Results - last 24 hr 12/17/24 12/17/24 12/18/24 11:32 16:29 07:59 POC Capillary Glucose 323 H 156 H 207 H Quality VTE Prophylaxis VTE prophylaxis: pharmacologic ordered
[2024-12-18] MEDS: METOPROLOL TARTRATE 12.5 MG TABLET PO ×2 (09:02→20:53)
[2024-12-18] MEDS: LIDOCAINE 5% PATCH 2 PATCH TRANSDERM (09:02)
[2024-12-18] MEDS: PREGABALIN (*CRX) 25 MG CAPSULE 75 MG PO ×2 (09:04→17:08)
[2024-12-18] MEDS: POTASSIUM CHLORIDE 20 MEQ ER TABLET PO (09:04)
[2024-12-18] MEDS: metFORMIN HCL 500 MG TABLET PO ×2 (09:04→17:06)
[2024-12-18] MEDS: PANTOPRAZOLE 40 MG TABLET PO ×2 (09:05→20:53)
[2024-12-18] MEDS: EMPAGLIFLOZIN 10 MG TABLET PO (09:05)
[2024-12-18] MEDS: ATORVASTATIN 10 MG TABLET 20 MG PO (09:05)
[2024-12-18] MEDS: MIDODRINE HCL 2.5 MG TABLET 10 MG PO ×3 (09:06→17:07)
[2024-12-18] MEDS: SACUBITRIL/VALSARTAN 24-26 MG TABLET 0.5 TAB PO ×2 (09:06→20:53)
[2024-12-18] MEDS: ASPIRIN 81 MG ENTERIC TABLET PO (09:07)
[2024-12-18] MEDS: AMIODARONE HCL 200 MG TABLET PO (09:07)
[2024-12-18] MEDS: FUROSEMIDE 40 MG TABLET PO ×2 (09:07→17:08)
[2024-12-18] MEDS: SPIRONOLACTONE 25 MG TABLET PO ×2 (09:08→20:53)
[2024-12-18 09:27] LABS: INR 3.9; Prothrombin Time 37.9 Seconds (9.50-12.1)
[2024-12-18] MEDS: INSULIN HUMAN LISPRO (*BKC) 1,000 UNITS/10 ML VIAL 5 UNITS SUB-Q ×3 (09:54→17:08)
[2024-12-18] MEDS: INSULIN HUMAN LISPRO (*BKC) 1,000 UNITS/10 ML VIAL SUB-Q ×2 (09:55→12:48)
[2024-12-18] MEDS: INSULIN GLARGINE (*BKC) 1,000 UNITS/10 ML VIAL 35 UNITS SUB-Q (09:56)
[2024-12-18 12:00] LABS: Glucose Point of Care 240 mg/dl (65-105)
[2024-12-18] MEDS: ONDANSETRON HCL ODT 4 MG TABLET PO (16:15)
[2024-12-18 16:22] LABS: Glucose Point of Care 96 mg/dl (65-105)
[2024-12-18] MEDS: rOPINIRole HCL 0.25 MG TABLET PO (20:54)
[2024-12-18] MEDS: CYCLOBENZAPRINE HCL 10 MG TABLET PO (20:54)
[2024-12-18] MEDS: MIRTAZAPINE 15 MG TABLET PO (20:54)
[2024-12-18 21:00] LABS: Glucose Point of Care 142 mg/dl (65-105)
[2024-12-19] VITALS (8 sets, daily range): BP systolic 103–132; BP diastolic 68–74; PULSE 80–100; RESP 14–19; TEMP 36.1–36.6; O2SAT 96–100
[2024-12-19] MEDS: VANCOMYCIN HCL 125 MG ORAL CAPSULE PO ×3 (06:02→17:08)
[2024-12-19] MEDS: LEVOTHYROXINE SODIUM 100 MCG TABLET PO (06:02)
[2024-12-19] MEDS: LEVOTHYROXINE SODIUM 25 MCG TABLET PO (06:02)
[2024-12-19 06:31] LABS: INR 3.5; Prothrombin Time 34.6 Seconds (9.50-12.1)
[2024-12-19 08:08] LABS: Glucose Point of Care 185 mg/dl (65-105)
[2024-12-19] MEDS: LIDOCAINE 5% PATCH 2 PATCH TRANSDERM (09:50)
[2024-12-19] MEDS: METOPROLOL TARTRATE 12.5 MG TABLET PO ×2 (09:50→21:03)
[2024-12-19] MEDS: POTASSIUM CHLORIDE 20 MEQ ER TABLET PO (09:51)
[2024-12-19] MEDS: oxyCODONE HCL (*CRX) 5 MG TAB IR 10 MG PO ×3 (09:51→21:03)
[2024-12-19] MEDS: AMIODARONE HCL 200 MG TABLET PO (09:53)
[2024-12-19] MEDS: PREGABALIN (*CRX) 25 MG CAPSULE 75 MG PO ×2 (09:54→17:08)
[2024-12-19] MEDS: MIDODRINE HCL 2.5 MG TABLET 10 MG PO ×3 (09:54→17:08)
[2024-12-19] MEDS: ATORVASTATIN 10 MG TABLET 20 MG PO (09:54)
[2024-12-19] MEDS: metFORMIN HCL 500 MG TABLET PO ×2 (09:54→17:08)
[2024-12-19] MEDS: EMPAGLIFLOZIN 10 MG TABLET PO (09:54)
[2024-12-19] MEDS: SACUBITRIL/VALSARTAN 24-26 MG TABLET 0.5 TAB PO ×2 (09:55→21:04)
[2024-12-19] MEDS: SPIRONOLACTONE 25 MG TABLET PO ×2 (09:55→21:04)
[2024-12-19] MEDS: PANTOPRAZOLE 40 MG TABLET PO ×2 (09:55→21:03)
[2024-12-19] MEDS: FUROSEMIDE 40 MG TABLET PO ×2 (09:55→17:08)
[2024-12-19] MEDS: ASPIRIN 81 MG ENTERIC TABLET PO (09:55)
[2024-12-19] MEDS: INSULIN GLARGINE (*BKC) 1,000 UNITS/10 ML VIAL 35 UNITS SUB-Q (10:01)
[2024-12-19] MEDS: INSULIN HUMAN LISPRO (*BKC) 1,000 UNITS/10 ML VIAL 5 UNITS SUB-Q ×2 (10:02→13:11)
[2024-12-19 11:56] LABS: Glucose Point of Care 231 mg/dl (65-105)
[2024-12-19] MEDS: INSULIN HUMAN LISPRO (*BKC) 1,000 UNITS/10 ML VIAL SUB-Q (13:10)
[2024-12-19 17:13] LABS: Glucose Point of Care 65 mg/dl (65-105)
[2024-12-19] MEDS: ONDANSETRON HCL ODT 4 MG TABLET PO (17:48)
[2024-12-19] MEDS: MIRTAZAPINE 15 MG TABLET PO (21:03)
[2024-12-19] MEDS: CYCLOBENZAPRINE HCL 10 MG TABLET PO (21:03)
[2024-12-19] MEDS: rOPINIRole HCL 0.25 MG TABLET PO (21:04)
[2024-12-19 21:14] LABS: Glucose Point of Care 120 mg/dl (65-105)
[2024-12-20] MEDS: oxyCODONE HCL (*CRX) 5 MG TAB IR 10 MG PO ×5 (03:48→21:32)
[2024-12-20 05:27] VITALS: O2SAT 98
[2024-12-20 05:36] LABS: INR 2.7; Prothrombin Time 27.5 Seconds (9.50-12.1)
[2024-12-20] MEDS: LEVOTHYROXINE SODIUM 100 MCG TABLET PO (05:52)
[2024-12-20] MEDS: LEVOTHYROXINE SODIUM 25 MCG TABLET PO (05:52)
[2024-12-20 07:42] LABS: Glucose Point of Care 140 mg/dl (65-105)
[2024-12-20 08:00] VITALS: BP 107/69; PULSE 83; RESP 16; TEMP 36.2; O2SAT 98
[2024-12-20] MEDS: INSULIN HUMAN LISPRO (*BKC) 1,000 UNITS/10 ML VIAL 5 UNITS SUB-Q ×2 (08:15→17:02)
[2024-12-20] MEDS: INSULIN GLARGINE (*BKC) 1,000 UNITS/10 ML VIAL 35 UNITS SUB-Q (08:16)
[2024-12-20] MEDS: LIDOCAINE 5% PATCH 2 PATCH TRANSDERM (08:18)
[2024-12-20] MEDS: ASPIRIN 81 MG ENTERIC TABLET PO (08:21)
[2024-12-20] MEDS: PREGABALIN (*CRX) 25 MG CAPSULE 75 MG PO ×2 (08:21→17:00)
[2024-12-20] MEDS: EMPAGLIFLOZIN 10 MG TABLET PO (08:22)
[2024-12-20] MEDS: SPIRONOLACTONE 25 MG TABLET PO ×2 (08:22→21:34)
[2024-12-20] MEDS: MIDODRINE HCL 2.5 MG TABLET 10 MG PO ×3 (08:22→17:00)
[2024-12-20] MEDS: metFORMIN HCL 500 MG TABLET PO ×2 (08:22→17:00)
[2024-12-20] MEDS: POTASSIUM CHLORIDE 20 MEQ ER TABLET PO (08:23)
[2024-12-20 08:24] VITALS: PULSE 83
[2024-12-20] MEDS: METOPROLOL TARTRATE 12.5 MG TABLET PO ×2 (08:24→21:31)
[2024-12-20] MEDS: SACUBITRIL/VALSARTAN 24-26 MG TABLET 0.5 TAB PO ×2 (08:24→21:30)
[2024-12-20 08:25] VITALS: PULSE 83
[2024-12-20] MEDS: AMIODARONE HCL 200 MG TABLET PO (08:25)
[2024-12-20] MEDS: PANTOPRAZOLE 40 MG TABLET PO ×2 (08:25→21:34)
[2024-12-20] MEDS: ATORVASTATIN 10 MG TABLET 20 MG PO (08:26)
[2024-12-20] MEDS: CYCLOBENZAPRINE HCL 10 MG TABLET PO ×3 (08:26→17:38)
--- NOTE | 2024-12-20 08:34 | PC.NURSE ---
Patient refused lasix due to doctor's appointment in [place].
--- NOTE | 2024-12-20 09:52 | PC.NURSE ---
Patient left unit for scheduled cardiology appointment in [place].
--- NOTE | 2024-12-20 13:14 | PC.NURSE ---
Patient returned from Doctor's appointment.
[2024-12-20 16:00] VITALS: BP 99/65; PULSE 93; RESP 16; TEMP 36; O2SAT 95
[2024-12-20 16:36] LABS: Glucose Point of Care 261 mg/dl (65-105)
[2024-12-20] MEDS: INSULIN HUMAN LISPRO (*BKC) 1,000 UNITS/10 ML VIAL SUB-Q (17:01)
[2024-12-20] MEDS: FUROSEMIDE 40 MG TABLET PO (17:01)
[2024-12-20 21:31] VITALS: PULSE 101
[2024-12-20] MEDS: rOPINIRole HCL 0.25 MG TABLET PO (21:31)
[2024-12-20] MEDS: MIRTAZAPINE 15 MG TABLET PO (21:32)
[2024-12-20 21:51] LABS: Glucose Point of Care 226 mg/dl (65-105)
[2024-12-21] VITALS: BP 113/77; PULSE 101; RESP 20; TEMP 36.1; O2SAT 98
[2024-12-21] MEDS: oxyCODONE HCL (*CRX) 5 MG TAB IR 10 MG PO ×5 (01:41→21:07)
[2024-12-21 05:30] VITALS: O2SAT 98
[2024-12-21 05:31] LABS: INR 2.1; Prothrombin Time 21.3 Seconds (9.50-12.1)
[2024-12-21] MEDS: LEVOTHYROXINE SODIUM 25 MCG TABLET PO (06:28)
[2024-12-21] MEDS: LEVOTHYROXINE SODIUM 100 MCG TABLET PO (06:28)
[2024-12-21 07:40] LABS: Glucose Point of Care 331 mg/dl (65-105)
[2024-12-21 08:00] VITALS: BP 101/72; PULSE 99; RESP 18; TEMP 36.4; O2SAT 100
[2024-12-21] MEDS: INSULIN HUMAN LISPRO (*BKC) 1,000 UNITS/10 ML VIAL SUB-Q ×2 (08:44→12:11)
[2024-12-21] MEDS: INSULIN HUMAN LISPRO (*BKC) 1,000 UNITS/10 ML VIAL 5 UNITS SUB-Q ×3 (08:44→17:06)
[2024-12-21] MEDS: INSULIN GLARGINE (*BKC) 1,000 UNITS/10 ML VIAL 35 UNITS SUB-Q (08:46)
[2024-12-21] MEDS: LIDOCAINE 5% PATCH 2 PATCH TRANSDERM (08:47)
[2024-12-21] MEDS: PREGABALIN (*CRX) 25 MG CAPSULE 75 MG PO ×2 (08:50→17:07)
[2024-12-21] MEDS: MIDODRINE HCL 2.5 MG TABLET 10 MG PO ×3 (08:50→17:08)
[2024-12-21] MEDS: EMPAGLIFLOZIN 10 MG TABLET PO (08:51)
[2024-12-21] MEDS: PANTOPRAZOLE 40 MG TABLET PO ×2 (08:51→21:14)
[2024-12-21] MEDS: ATORVASTATIN 10 MG TABLET 20 MG PO (08:51)
[2024-12-21 08:52] VITALS: PULSE 99
[2024-12-21] MEDS: POTASSIUM CHLORIDE 20 MEQ ER TABLET PO (08:52)
[2024-12-21] MEDS: METOPROLOL TARTRATE 12.5 MG TABLET PO ×2 (08:52→21:08)
[2024-12-21] MEDS: metFORMIN HCL 500 MG TABLET PO ×2 (08:52→17:08)
[2024-12-21] MEDS: AMIODARONE HCL 200 MG TABLET PO (08:52)
[2024-12-21] MEDS: SACUBITRIL/VALSARTAN 24-26 MG TABLET 0.5 TAB PO ×2 (08:53→21:13)
[2024-12-21] MEDS: ASPIRIN 81 MG ENTERIC TABLET PO (08:53)
[2024-12-21] MEDS: SPIRONOLACTONE 25 MG TABLET PO ×2 (08:53→21:08)
[2024-12-21] MEDS: FUROSEMIDE 40 MG TABLET PO ×2 (08:54→17:08)
[2024-12-21] MEDS: CYCLOBENZAPRINE HCL 10 MG TABLET PO ×3 (08:54→21:14)
[2024-12-21 11:44] LABS: Glucose Point of Care 323 mg/dl (65-105)
[2024-12-21 16:00] VITALS: BP 95/66; PULSE 96; RESP 16; TEMP 36; O2SAT 99
[2024-12-21 16:43] LABS: Glucose Point of Care 118 mg/dl (65-105)
[2024-12-21] MEDS: WARFARIN (*PBKC) 2 MG TABLET PO (18:18)
[2024-12-21 21:08] VITALS: PULSE 101
[2024-12-21] MEDS: MIRTAZAPINE 15 MG TABLET PO (21:13)
[2024-12-21] MEDS: rOPINIRole HCL 0.25 MG TABLET PO (21:13)
[2024-12-21 21:27] LABS: Glucose Point of Care 162 mg/dl (65-105)
[2024-12-22] VITALS (7 sets, daily range): BP systolic 96–107; BP diastolic 58–64; PULSE 84–102; RESP 14–20; TEMP 35.9–36.3; O2SAT 94–100
[2024-12-22] MEDS: CALCIUM CARBONATE (TUMS) 500 MG (200 MG ELEMENTAL) 400 MG PO ×3 (04:34→17:19)
[2024-12-22] MEDS: ONDANSETRON HCL ODT 4 MG TABLET PO ×2 (04:35→10:07)
[2024-12-22 05:39] LABS: INR 1.4; Prothrombin Time 14.8 Seconds (9.64-11.0)
[2024-12-22] MEDS: LEVOTHYROXINE SODIUM 100 MCG TABLET PO (06:18)
[2024-12-22] MEDS: LEVOTHYROXINE SODIUM 25 MCG TABLET PO (06:18)
[2024-12-22] MEDS: oxyCODONE HCL (*CRX) 5 MG TAB IR 10 MG PO ×3 (06:23→18:45)
[2024-12-22 08:05] LABS: Glucose Point of Care 312 mg/dl (65-105)
[2024-12-22] MEDS: LIDOCAINE 5% PATCH 2 PATCH TRANSDERM (10:06)
[2024-12-22] MEDS: ATORVASTATIN 10 MG TABLET 20 MG PO (10:07)
[2024-12-22] MEDS: SACUBITRIL/VALSARTAN 24-26 MG TABLET 0.5 TAB PO ×2 (10:07→21:04)
[2024-12-22] MEDS: POTASSIUM CHLORIDE 20 MEQ ER TABLET PO (10:08)
[2024-12-22] MEDS: SPIRONOLACTONE 25 MG TABLET PO ×2 (10:08→21:05)
[2024-12-22] MEDS: PREGABALIN (*CRX) 25 MG CAPSULE 75 MG PO ×2 (10:08→17:19)
[2024-12-22] MEDS: PANTOPRAZOLE 40 MG TABLET PO ×2 (10:08→21:04)
[2024-12-22] MEDS: METOPROLOL TARTRATE 12.5 MG TABLET PO ×2 (10:09→21:03)
[2024-12-22] MEDS: FUROSEMIDE 40 MG TABLET PO ×2 (10:09→17:19)
[2024-12-22] MEDS: metFORMIN HCL 500 MG TABLET PO ×2 (10:09→17:20)
[2024-12-22] MEDS: ASPIRIN 81 MG ENTERIC TABLET PO (10:09)
[2024-12-22] MEDS: AMIODARONE HCL 200 MG TABLET PO (10:09)
[2024-12-22] MEDS: EMPAGLIFLOZIN 10 MG TABLET PO (10:10)
[2024-12-22] MEDS: MIDODRINE HCL 2.5 MG TABLET 10 MG PO ×3 (10:10→17:19)
[2024-12-22] MEDS: INSULIN HUMAN LISPRO (*BKC) 1,000 UNITS/10 ML VIAL SUB-Q ×2 (10:17→12:32)
[2024-12-22] MEDS: INSULIN HUMAN LISPRO (*BKC) 1,000 UNITS/10 ML VIAL 5 UNITS SUB-Q ×3 (10:18→17:18)
[2024-12-22] MEDS: INSULIN GLARGINE (*BKC) 1,000 UNITS/10 ML VIAL 35 UNITS SUB-Q (10:18)
[2024-12-22] MEDS: WARFARIN (*PBKC) 2.5 MG TABLET PO (17:18)
[2024-12-22 21:00] LABS: Glucose Point of Care 255 mg/dl (65-105)
[2024-12-22 21:00] LABS: Glucose Point of Care 158 mg/dl (65-105)
[2024-12-22 21:00] LABS: Glucose Point of Care 134 mg/dl (65-105)
[2024-12-22] MEDS: rOPINIRole HCL 0.25 MG TABLET PO (21:03)
[2024-12-22] MEDS: CYCLOBENZAPRINE HCL 10 MG TABLET PO (21:04)
[2024-12-22] MEDS: MIRTAZAPINE 15 MG TABLET PO (21:04)
[2024-12-23] VITALS (8 sets, daily range): BP systolic 86–93; BP diastolic 58–61; PULSE 81–95; RESP 14–18; TEMP 36.5–36.9; O2SAT 98–100
[2024-12-23 05:50] LABS: INR 1.5; Prothrombin Time 15.6 Seconds (9.50-12.1)
[2024-12-23] MEDS: LEVOTHYROXINE SODIUM 25 MCG TABLET PO (06:27)
[2024-12-23] MEDS: LEVOTHYROXINE SODIUM 100 MCG TABLET PO (06:27)
[2024-12-23] MEDS: oxyCODONE HCL (*CRX) 5 MG TAB IR 10 MG PO ×3 (06:27→17:27)
[2024-12-23 08:04] LABS: Glucose Point of Care 156 mg/dl (65-105)
[2024-12-23] MEDS: INSULIN HUMAN LISPRO (*BKC) 1,000 UNITS/10 ML VIAL 5 UNITS SUB-Q ×2 (08:15→13:19)
[2024-12-23] MEDS: ASPIRIN 81 MG ENTERIC TABLET PO (09:00)
[2024-12-23] MEDS: INSULIN GLARGINE (*BKC) 1,000 UNITS/10 ML VIAL 35 UNITS SUB-Q (09:10)
[2024-12-23] MEDS: MIDODRINE HCL 2.5 MG TABLET 10 MG PO ×3 (09:50→17:27)
[2024-12-23] MEDS: PREGABALIN (*CRX) 25 MG CAPSULE 75 MG PO ×2 (09:50→17:28)
[2024-12-23] MEDS: ATORVASTATIN 10 MG TABLET 20 MG PO (09:50)
[2024-12-23] MEDS: EMPAGLIFLOZIN 10 MG TABLET PO (09:51)
[2024-12-23] MEDS: metFORMIN HCL 500 MG TABLET PO ×2 (09:51→17:28)
[2024-12-23] MEDS: SACUBITRIL/VALSARTAN 24-26 MG TABLET 0.5 TAB PO ×2 (09:51→20:32)
[2024-12-23] MEDS: METOPROLOL TARTRATE 12.5 MG TABLET PO ×2 (09:51→20:33)
[2024-12-23] MEDS: SPIRONOLACTONE 25 MG TABLET PO ×2 (09:52→20:33)
[2024-12-23] MEDS: AMIODARONE HCL 200 MG TABLET PO (09:52)
[2024-12-23] MEDS: FUROSEMIDE 40 MG TABLET PO ×2 (09:52→17:28)
[2024-12-23] MEDS: POTASSIUM CHLORIDE 20 MEQ ER TABLET PO (09:53)
[2024-12-23] MEDS: PANTOPRAZOLE 40 MG TABLET PO ×2 (09:53→20:33)
[2024-12-23] MEDS: LIDOCAINE 5% PATCH 2 PATCH TRANSDERM (09:54)
--- NOTE | 2024-12-23 11:33 | PC.NURSE ---
Informed Ana the pain patch would be due tomorrow and would need to be brought in for approval from pharmacy..
[2024-12-23 11:56] LABS: Glucose Point of Care 261 mg/dl (65-105)
[2024-12-23] MEDS: INSULIN HUMAN LISPRO (*BKC) 1,000 UNITS/10 ML VIAL SUB-Q (13:18)
[2024-12-23] MEDS: CALCIUM CARBONATE (TUMS) 500 MG (200 MG ELEMENTAL) 400 MG PO (14:12)
[2024-12-23 16:42] LABS: Glucose Point of Care 103 mg/dl (65-105)
[2024-12-23] MEDS: WARFARIN (*PBKC) 2.5 MG TABLET PO (17:38)
[2024-12-23] MEDS: WARFARIN (*PBKC) 1 MG TABLET PO (17:40)
[2024-12-23] MEDS: CYCLOBENZAPRINE HCL 10 MG TABLET PO (20:33)
[2024-12-23] MEDS: ACETAMINOPHEN 325 MG TABLET 650 MG PO (20:33)
[2024-12-23] MEDS: rOPINIRole HCL 0.25 MG TABLET PO (20:33)
[2024-12-23] MEDS: MIRTAZAPINE 15 MG TABLET PO (20:33)
[2024-12-23 20:34] LABS: Glucose Point of Care 216 mg/dl (65-105)
[2024-12-24] VITALS (8 sets, daily range): BP systolic 87–104; BP diastolic 60–72; PULSE 85–96; RESP 14–17; TEMP 35.9–36.7; O2SAT 97–100
[2024-12-24] MEDS: oxyCODONE HCL (*CRX) 5 MG TAB IR 10 MG PO ×4 (03:47→20:50)
[2024-12-24 06:08] LABS: INR 1.7
[2024-12-24] MEDS: ALENDRONATE SODIUM 70 MG TABLET PO (06:20)
[2024-12-24] MEDS: LEVOTHYROXINE SODIUM 25 MCG TABLET PO (06:20)
[2024-12-24] MEDS: LEVOTHYROXINE SODIUM 100 MCG TABLET PO (06:20)
[2024-12-24 08:07] LABS: Glucose Point of Care 221 mg/dl (65-105)
[2024-12-24] MEDS: LIDOCAINE 5% PATCH 2 PATCH TRANSDERM (08:55)
[2024-12-24] MEDS: PREGABALIN (*CRX) 25 MG CAPSULE 75 MG PO ×2 (08:56→16:17)
[2024-12-24] MEDS: ERGOCALCIFEROL 50,000 UNITS CAPSULE 50000 UNITS PO (08:56)
[2024-12-24] MEDS: CALCIUM CARBONATE (TUMS) 500 MG (200 MG ELEMENTAL) 400 MG PO (08:56)
[2024-12-24] MEDS: SACUBITRIL/VALSARTAN 24-26 MG TABLET 0.5 TAB PO ×2 (08:57→20:49)
[2024-12-24] MEDS: EMPAGLIFLOZIN 10 MG TABLET PO (09:02)
[2024-12-24] MEDS: SPIRONOLACTONE 25 MG TABLET PO ×2 (09:02→20:50)
[2024-12-24] MEDS: PANTOPRAZOLE 40 MG TABLET PO ×2 (09:02→20:50)
[2024-12-24] MEDS: FUROSEMIDE 40 MG TABLET PO ×2 (09:02→16:17)
[2024-12-24] MEDS: metFORMIN HCL 500 MG TABLET PO (09:02)
[2024-12-24] MEDS: ASPIRIN 81 MG ENTERIC TABLET PO (09:03)
[2024-12-24] MEDS: METOPROLOL TARTRATE 12.5 MG TABLET PO ×2 (09:03→20:50)
[2024-12-24] MEDS: MIDODRINE HCL 2.5 MG TABLET 10 MG PO ×3 (09:03→16:17)
[2024-12-24] MEDS: ATORVASTATIN 10 MG TABLET 20 MG PO (09:03)
[2024-12-24] MEDS: AMIODARONE HCL 200 MG TABLET PO (09:03)
[2024-12-24] MEDS: INSULIN HUMAN LISPRO (*BKC) 1,000 UNITS/10 ML VIAL SUB-Q ×2 (09:19→13:39)
[2024-12-24] MEDS: INSULIN HUMAN LISPRO (*BKC) 1,000 UNITS/10 ML VIAL 5 UNITS SUB-Q ×2 (09:19→13:40)
[2024-12-24] MEDS: INSULIN GLARGINE (*BKC) 1,000 UNITS/10 ML VIAL 35 UNITS SUB-Q (09:20)
[2024-12-24] MEDS: POTASSIUM CHLORIDE 20 MEQ ER TABLET PO (09:22)
[2024-12-24 12:00] LABS: Glucose Point of Care 267 mg/dl (65-105)
--- NOTE | 2024-12-24 16:15 | PC.NURSE ---
Patients blood sugar 59, states she is feeling marixa funny/cloudy minded. Patient given chocolate pudding and orange juice. Will recheck blood sugar in 30 minutes.
[2024-12-24] MEDS: WARFARIN (*PBKC) 2.5 MG TABLET PO (16:17)
[2024-12-24 16:19] LABS: Glucose Point of Care 59 mg/dl (65-105)
[2024-12-24] MEDS: [UNRECOGNIZED DRUG - OTHER] TOPICAL (16:33)
[2024-12-24] MEDS: BUPRENORPHINE TOPICAL (16:33)
--- NOTE | 2024-12-24 16:35 | PC.NURSE ---
Patients brought in Buprenorphine patch after hours of pharmacy. Medication unable to scan, Medication double verified prior to administration by This nurse Radha BUI and [place] BUI.
--- NOTE | 2024-12-24 17:05 | PC.NURSE ---
Patients blood sugar recheck is 103. Patient states she is feeling much better. Sitting at side of bed eating dinner.
[2024-12-24 17:07] LABS: Glucose Point of Care 103 mg/dl (65-105)
--- NOTE | 2024-12-24 20:15 | PC.NURSE ---
Spoke with patient's daughter, Ana Chang, about insurance authorization being denied for long term placement and asked if they would like to appeal the decision. Yes they would like to appeal. Charly Villagran Slot Tag Inserter notified.
[2024-12-24] MEDS: CYCLOBENZAPRINE HCL 10 MG TABLET PO (20:50)
[2024-12-24] MEDS: rOPINIRole HCL 0.25 MG TABLET PO (20:50)
[2024-12-24] MEDS: MIRTAZAPINE 15 MG TABLET PO (20:50)
[2024-12-24 20:53] LABS: Glucose Point of Care 262 mg/dl (65-105)
[2024-12-25] VITALS (8 sets, daily range): BP systolic 87–100; BP diastolic 57–69; PULSE 81–96; RESP 16–18; TEMP 36.6–36.8; O2SAT 98–100
--- NOTE | 2024-12-25 | PC.NURSE ---
Patient c/o weakness/dizziness, VSS (see vitals), transferred self from commode back to bed, reminded and encouraged to use call light, patient unable to pull up pants without assist. Bed alarm on.
[2024-12-25] MEDS: oxyCODONE HCL (*CRX) 5 MG TAB IR 10 MG PO ×4 (05:28→23:39)
[2024-12-25] MEDS: LEVOTHYROXINE SODIUM 25 MCG TABLET PO (05:30)
[2024-12-25] MEDS: LEVOTHYROXINE SODIUM 100 MCG TABLET PO (05:30)
[2024-12-25 05:33] LABS: INR 2.4
[2024-12-25 07:42] LABS: Glucose Point of Care 323 mg/dl (65-105)
[2024-12-25] MEDS: LIDOCAINE 5% PATCH 2 PATCH TRANSDERM (08:13)
[2024-12-25] MEDS: INSULIN GLARGINE (*BKC) 1,000 UNITS/10 ML VIAL 35 UNITS SUB-Q (08:16)
[2024-12-25] MEDS: INSULIN HUMAN LISPRO (*BKC) 1,000 UNITS/10 ML VIAL SUB-Q ×2 (08:17→11:48)
[2024-12-25] MEDS: INSULIN HUMAN LISPRO (*BKC) 1,000 UNITS/10 ML VIAL 5 UNITS SUB-Q ×3 (08:18→17:03)
[2024-12-25] MEDS: SACUBITRIL/VALSARTAN 24-26 MG TABLET 0.5 TAB PO ×2 (08:19→20:30)
[2024-12-25] MEDS: PANTOPRAZOLE 40 MG TABLET PO ×2 (08:20→20:30)
[2024-12-25] MEDS: metFORMIN HCL 500 MG TABLET PO ×2 (08:20→17:05)
[2024-12-25] MEDS: AMIODARONE HCL 200 MG TABLET PO (08:20)
[2024-12-25] MEDS: ASPIRIN 81 MG ENTERIC TABLET PO (08:20)
[2024-12-25] MEDS: PREGABALIN (*CRX) 25 MG CAPSULE 75 MG PO ×2 (08:21→17:05)
[2024-12-25] MEDS: ATORVASTATIN 10 MG TABLET 20 MG PO (08:21)
[2024-12-25] MEDS: METOPROLOL TARTRATE 12.5 MG TABLET PO ×2 (08:21→20:30)
[2024-12-25] MEDS: EMPAGLIFLOZIN 10 MG TABLET PO (08:22)
[2024-12-25] MEDS: POTASSIUM CHLORIDE 20 MEQ ER TABLET PO (08:22)
[2024-12-25] MEDS: SPIRONOLACTONE 25 MG TABLET PO ×2 (08:22→20:29)
[2024-12-25] MEDS: MIDODRINE HCL 2.5 MG TABLET 10 MG PO ×3 (08:22→17:05)
[2024-12-25] MEDS: FUROSEMIDE 40 MG TABLET PO ×2 (08:23→17:09)
--- NOTE | 2024-12-25 09:21 | P.PNIM_ITS ---
Progress Note: A&P Assessment and Plan (1) Weakness: Code(s): R53.1 - Weakness Status: Acute Assessment and Plan: * PT and OT ordered 12/15 * No change (2) Cardiomyopathy: Code(s): I42.9 - Cardiomyopathy, unspecified Status: Acute Assessment and Plan: * continue Entresto, Lasix, metoprolol * Current Echo severe global left ventricle systolic dysfunction thrombus was seen in the lateral wall LVEF estimated at 15-20% * Jane stim implant * ICD present * F/U Dr. Madsen 12/20/202412/15 * No change (3) Atrial fibrillation: Code(s): I48.91 - Unspecified atrial fibrillation Status: Chronic Assessment and Plan: * continue amiodarone and metoprolol * INR 1.5 today * 2 mg Coumadin for tonight * PT/INR Daily * adjust Coumadin 2.0-3.0 12/15 * INR 1.9 * Will increase Coumadin to 3 mg for tonight * Recheck PT/INR in the morning 12/16 * INR 2.9 * Will decrease to 2.5 * continue to trend 12/17 * INR 3.6 * Will decrease to 2 mg tonight * Continue to trend 12/18 * INR 3.9 * Will hold coumadin tonight * Continue to trend 12/25: * INR 2.4 (4) Hyperlipidemia: Code(s): E78.5 - Hyperlipidemia, unspecified Status: Acute Assessment and Plan: * continue aspirin and atorvastatin 12/15 * No change (5) Type 2 diabetes mellitus: Code(s): E11.9 - Type 2 diabetes mellitus without complications Status: Acute Assessment and Plan: * Blood sugars ranging 162-261 * Hgb A1C was 6.7 on 12/01/2024 * Accu checks AC/HS * low-dose SSI ordered * continue metformin * continue Lantus 35 units * hypoglycemic protocol in place * Diabetic diet ordered 12/15 * Blood glucose today was greater than 450 and she was given an additional 8 units with her 5 units of sliding scale insulin * Repeat blood glucose was 165 this afternoon * Encourage patient to stick with diabetic diet 12/16 * Blood glucose ranging 313-317 * Will add meal time insulin 3 units TID with meals 12/17 * BG 165-256 * Will increase meal time insulin to 5 units TID with meals 8 * [id number] * No change to above plan (6) Hypothyroidism: Code(s): E03.9 - Hypothyroidism, unspecified Status: Acute Assessment and Plan: * continue Synthroid 12/15 * No change to current treatment plan (7) GERD (gastroesophageal reflux disease): Code(s): K21.9 - Gastro-esophageal reflux disease without esophagitis Status: Acute Assessment and Plan: * continue Protonix b.i.d. * Tums ordered as well 3 * No change to current treatment plan (8) C. difficile diarrhea: Code(s): A04.72 - Enterocolitis due to Clostridium difficile, not specified as recurrent Status: Acute Assessment and Plan: * Continue oral vancomycin 3 * No change to current treatment (9) Atrial thrombus: Code(s): I51.3 - Intracardiac thrombosis, not elsewhere classified Status: Acute Assessment and Plan: * continue Coumadin * PT/INR daily * adjust as needed 12/15 * INR 1.9 * Increase Coumadin to 3 mg tonight * Continue to monitor 36 * INR 2.9 * Will decrease coumadin to 2.5 tonight * Continue to trend 37 * INR 3.6 * Will decrease to 2 mg tonight * Continue to trend 38 * INR 3.9 * Will hold coumadin tonight * Continue to trend (10) BI (obstructive sleep apnea): Code(s): G47.33 - Obstructive sleep apnea (adult) (pediatric) Status: Acute Assessment and Plan: * Cpap 12/15 * No change Plan code status: DNR DVT prophylaxis: Coumadin Stress ulcer prophylaxis: Protonix 40 daily PT/OT notes: swing bed Disposition: patient continues admission for swing bed progressing slowly with physical therapy attempting to have patient transferred to half-way facility for ongoing physical and occupational therapy Time Spent With Patient Time with patient: 15 - 25 minutes Subjective Date/time seen: 12/25/24 09:21 Interval history: 12/25/2024: Patient doing well but progressing slow with physical therapy. Patient denied any CP, SOB, N/V no other complaints. INR stable today at 2.4 Review of Systems Review of Systems: All systems reviewed & are unremarkable except as noted in HPI and below Exam Narrative: General: In no acute distress, well nourished Cardiac: Normal S1 and S2. No murmur, gallops or friction rubs, peripheral pulses intact. Respiratory: Lungs clear to auscultation, no adventitious lung sounds, currently on 3L NC Gastrointestinal: soft, non-distended, non-tender, normoactive bowel sounds. : voiding without difficulty. Neuro: Alert and oriented x4 Objective Data Vital Signs Vital Signs: Vital Signs - 24 hr 12/24/24 16:15 12/24/24 20:00 12/24/24 20:50 Temperature 97.4 F L Pulse Rate 85 96 96 Respiratory Rate 16 16 Blood Pressure 87/60 L Pulse Oximetry 100 100 Oxygen Delivery Nasal Cannula Nasal Cannula Oxygen Flow Rate 2 3 12/24/24 23:59 12/25/24 08:00 12/25/24 08:20 Temperature 97.8 F 98.1 F Pulse Rate 96 96 81 Respiratory Rate 17 16 Blood Pressure 104/67 93/57 L Pulse Oximetry 97 100 Oxygen Delivery Nasal Cannula Nasal Cannula Oxygen Flow Rate 3 3 12/25/24 08:21 Temperature Pulse Rate 81 Respiratory Rate Blood Pressure Pulse Oximetry Oxygen Delivery Oxygen Flow Rate Intake/Output Intake/Output: Intake & Output 12/22/24 12/23/24 12/24/24 12/25/24 23:59 23:59 23:59 23:59 Intake Total 2140 1710 1790 850 Output Total 1251 Balance 889 1710 1790 850 Meds/Results Medications: Active Medications Generic Name Dose Route Start Last Admin Trade Name Freq PRN Reason Stop Dose Admin Acetaminophen 650 mg 12/09/24 20:01 12/23/24 20:33 Acetaminophen 325 Mg Tablet PO 650 mg Q6H PRN Administration Fever Or Pain 1-3 Alendronate Sodium 70 mg 12/17/24 06:30 12/24/24 06:20 Alendronate Sodium 70 Mg Tablet PO 70 mg [id number]@0630 ALVINA Administration Amiodarone HCl 200 mg 12/10/24 09:00 12/25/24 08:20 Amiodarone Hcl 200 Mg Tablet PO 200 mg DAILY ALVINA Administration Artificial Tears 2 drop 12/09/24 20:01 Artificial Tears Ophth Soln 15 Ml Bottle EACH EYE TID PRN Dry Eye(S) Aspirin 81 mg 12/10/24 09:00 12/25/24 08:20 Aspirin 81 Mg Enteric Tablet PO 81 mg DAILY ALVINA Administration Atorvastatin Calcium 20 mg 12/10/24 09:00 12/25/24 08:21 Atorvastatin 10 Mg Tablet PO 20 mg DAILY ALVINA Administration Bisacodyl 10 mg 12/09/24 20:01 Bisacodyl 5 Mg Tablet Ec PO DAILY PRN Constipation Bisacodyl 10 mg 12/09/24 20:01 Bisacodyl 10 Mg Suppository RECTAL DAILY PRN Constipation Calcium Carbonate 400 mg 12/09/24 20:01 12/24/24 08:56 Calcium Carbonate (Tums) 500 Mg (200 Mg Elemental) PO 400 mg TID PRN Administration dyspepsia Cyclobenzaprine HCl 10 mg 12/09/24 20:01 12/24/24 20:50 Cyclobenzaprine Hcl 10 Mg Tablet PO 10 mg TID PRN Administration Muscle Spasms Dextrose 12.5 gm 12/09/24 20:07 Dextrose 50% 25 Gm/50 Ml Syringe IV PUSH PRN PRN Hypoglycemia Protocol Empagliflozin 10 mg 12/10/24 09:00 12/25/24 08:22 Empagliflozin 10 Mg Tablet PO 10 mg DAILY ALVINA Administration Ergocalciferol 50,000 units 12/10/24 09:00 12/24/24 08:56 Ergocalciferol 50,000 Units Capsule PO 50,000 units WEEKLY ALVINA Administration Furosemide 40 mg 12/10/24 09:00 12/25/24 08:23 Furosemide 40 Mg Tablet PO 40 mg BID ALVINA Administration Glucagon 1 mg 12/09/24 20:07 Glucagon For Inj 1 Mg Vial IM PRN PRN Hypoglycemia Protocol Glucose 15 gm 12/09/24 20:07 Glucose Oral Gel 15 Gm Of Glucse In 37.5 Gm Tube PO PRN PRN Hypoglycemia Protocol Dextrose 1,000 mls @ 100 mls/hr 12/09/24 20:07 Dextrose 5% 1,000 Ml IVPB PRN PRN Hypoglycemia Protocol Insulin Glargine 35 units 12/10/24 09:00 12/25/24 08:16 Insulin Glargine (*Bkc) 1,000 Units/10 Ml Vial SUB-Q 35 units QAM ALVINA Administration Insulin Human Lispro 2 - 5 units 12/10/24 08:00 12/25/24 08:17 Insulin Human Lispro (*Bkc) 1,000 Units/10 Ml Vial SUB-Q 4 units TIDWM ALVINA Administration Protocol Insulin Human Lispro 5 units 12/17/24 12:00 12/25/24 08:18 Insulin Human Lispro (*Bkc) 1,000 Units/10 Ml Vial SUB-Q 5 units TIDWM ALVINA Administration Levothyroxine Sodium 100 mcg 12/10/24 06:30 12/25/24 05:30 Levothyroxine Sodium 100 Mcg Tablet PO 100 mcg DAILY@0630 ALVINA Administration Levothyroxine Sodium 25 mcg 12/10/24 06:30 12/25/24 05:30 Levothyroxine Sodium 25 Mcg Tablet PO 25 mcg DAILY@0630 ALVINA Administration Lidocaine 2 patch 12/11/24 16:45 12/25/24 08:13 Lidocaine 5% Patch TRANSDERM 2 patch DAILY ALVINA Administration Metformin HCl 500 mg 12/10/24 09:00 12/25/24 08:20 Metformin Hcl 500 Mg Tablet PO 500 mg BID ALVINA Administration Metoprolol Tartrate 12.5 mg 12/09/24 21:00 12/25/24 08:21 Metoprolol Tartrate 12.5 Mg Tablet PO 12.5 mg Q12HR ALVINA Administration Midodrine 10 mg 12/10/24 09:00 12/25/24 08:22 Midodrine Hcl 2.5 Mg Tablet PO 10 mg TID ALVINA Administration Mirtazapine 15 mg 12/09/24 21:00 12/24/24 20:50 Mirtazapine 15 Mg Tablet PO 15 mg HS ALVINA Administration * Home Med * 10 mg 12/12/24 15:50 12/14/24 04:48 Rizatriptan 10 Mg PO 01/11/25 15:49 10 mg Tablet Q2H PRN Administration Migraine Headache Non-Formulary Medication 1 patch 12/24/24 16:35 12/24/24 16:33 Buprenorphine TOPICAL 01/23/25 16:34 1 patch Fr@0900 ALVINA Administration Ondansetron HCl 4 mg 12/09/24 20:01 12/22/24 10:07 Ondansetron Hcl Odt 4 Mg Tablet PO 4 mg Q6H PRN Administration Nausea And Vomiting Oxycodone HCl 10 mg 12/17/24 09:13 12/25/24 05:28 Oxycodone Hcl (*Crx) 5 Mg Tab Ir PO 10 mg Q4H PRN Administration Pain 7-10 Pantoprazole Sodium 40 mg 12/09/24 21:00 12/25/24 08:20 Pantoprazole 40 Mg Tablet PO 40 mg Q12HR ALVINA Administration Polyethylene Glycol 17 gm 12/13/24 11:04 Polyethylene Glycol 3350 17 Gm Powd.Pack PO DAILY PRN constipation Potassium Chloride 20 meq 12/10/24 09:00 12/25/24 08:22 Potassium Chloride 20 Meq Er Tablet PO 20 meq DAILY ALVINA Administration Pregabalin 75 mg 12/10/24 09:00 12/25/24 08:21 Pregabalin (*Crx) 25 Mg Capsule PO 75 mg BID ALVINA Administration Ropinirole HCl 0.25 mg 12/09/24 21:00 12/24/24 20:50 Ropinirole Hcl 0.25 Mg Tablet PO 0.25 mg HS ALVINA Administration Sacubitril/Valsartan 0.5 tab 12/09/24 21:00 12/25/24 08:19 Sacubitril/Valsartan 24-26 Mg Tablet PO 0.5 tab Q12HR ALVINA Administration Senna/Docusate Sodium 1 tab 12/13/24 11:04 Senna/Docusate Sodium Tablet PO BID PRN Constipation Sodium Chloride 2 spray 12/09/24 20:01 Saline 0.65% Alexy Soln 44 Ml Btl NASAL Q2H PRN Dry Nasal Passages Spironolactone 25 mg 12/09/24 21:00 12/25/24 08:22 Spironolactone 25 Mg Tablet PO 25 mg Q12HR ALVINA Administration Warfarin Sodium 2.5 mg 12/22/24 17:00 12/24/24 16:17 Warfarin (*Pbkc) 2.5 Mg Tablet PO 2.5 mg [id number]@1700 ALVINA Administration Radiology Results: ITS Impressions Hip/Pelvis X-Ray 12/16/24 14:02 IMPRESSION: Significant degenerative disease with multiple prior fracture deformities without plain radiographic evidence to suggest an acute fracture within the left hip. Knee X-Ray 12/16/24 14:05 IMPRESSION: 1. Mild right knee osteoarthritis. Lumbar Spine X-Ray 12/16/24 14:10 IMPRESSION: 1. Moderate lumbar spondylosis. 2. Posterior fusion procedure from the thoracic spine to the sacrum and iliac bones. 3. Anterior fusion procedure at L5-S1. Labs Labs: Laboratory Results - last 24 hr 12/24/24 12/24/24 12/24/24 11:54 16:13 17:04 PT INR POC Capillary Glucose 267 H 59 L* 103 12/24/24 12/25/24 12/25/24 20:47 05:04 07:36 PT 24.0 H D INR 2.4 POC Capillary Glucose 262 H 323 H Quality VTE Prophylaxis VTE prophylaxis: pharmacologic ordered -Patient's previous records reviewed on admission -ER notes reviewed in detail on admission -discussed all findings and current treatment plan with patient/Family/POA -Consultations reviewed for recommendations -Patient's disposition for safe discharge discussed with director of casework department Dictation performed by [employer] direct speech recognition software, therefore rim buster variants and typographical errors may occur. Hospitalist MIPS Advance Care Plan I have confirmed that the patient's Advanced Care Plan is present, code status is documented, or surrogate decision maker is listed in patient medical record.: Yes Medication Reconciliation I have utilized all available resources to obtain, update and review the patients current medications (includes all prescriptions, OTC, herbals, cannabis, and nutritional supplements).: Yes The patient is not eligible for med reconciliation; the patient is in a emergent medical situation where delaying treatment would jeopardize the patients health.: No
[2024-12-25 11:36] LABS: Glucose Point of Care 272 mg/dl (65-105)
[2024-12-25] MEDS: CYCLOBENZAPRINE HCL 10 MG TABLET PO ×2 (11:50→17:06)
[2024-12-25 16:41] LABS: Glucose Point of Care 137 mg/dl (65-105)
[2024-12-25] MEDS: rOPINIRole HCL 0.25 MG TABLET PO (20:29)
[2024-12-25] MEDS: MIRTAZAPINE 15 MG TABLET PO (20:30)
[2024-12-25 20:41] LABS: Glucose Point of Care 184 mg/dl (65-105)
[2024-12-25] MEDS: ONDANSETRON HCL ODT 4 MG TABLET PO (20:51)
[2024-12-26] VITALS (10 sets, daily range): BP systolic 70–93; BP diastolic 53–60; PULSE 73–96; RESP 14–16; TEMP 36.1–36.3; O2SAT 96–100
[2024-12-26] MEDS: oxyCODONE HCL (*CRX) 5 MG TAB IR 10 MG PO ×3 (04:22→12:48)
[2024-12-26] MEDS: LEVOTHYROXINE SODIUM 100 MCG TABLET PO (06:23)
[2024-12-26] MEDS: LEVOTHYROXINE SODIUM 25 MCG TABLET PO (06:23)
[2024-12-26] MEDS: CALCIUM CARBONATE (TUMS) 500 MG (200 MG ELEMENTAL) 400 MG PO (06:29)
[2024-12-26] MEDS: ONDANSETRON HCL ODT 4 MG TABLET PO ×2 (06:29→12:03)
[2024-12-26 07:35] LABS: INR 2.2; Prothrombin Time 22.4 Seconds (9.50-12.1)
[2024-12-26 07:47] LABS: Glucose Point of Care 216 mg/dl (65-105)
[2024-12-26] MEDS: INSULIN HUMAN LISPRO (*BKC) 1,000 UNITS/10 ML VIAL 5 UNITS SUB-Q ×2 (08:46→12:01)
[2024-12-26] MEDS: INSULIN HUMAN LISPRO (*BKC) 1,000 UNITS/10 ML VIAL SUB-Q ×2 (08:46→12:02)
[2024-12-26] MEDS: INSULIN GLARGINE (*BKC) 1,000 UNITS/10 ML VIAL 35 UNITS SUB-Q (08:47)
[2024-12-26] MEDS: PREGABALIN (*CRX) 25 MG CAPSULE 75 MG PO ×2 (08:49→17:13)
[2024-12-26] MEDS: metFORMIN HCL 500 MG TABLET PO ×2 (08:50→17:15)
[2024-12-26] MEDS: ASPIRIN 81 MG ENTERIC TABLET PO (08:51)
[2024-12-26] MEDS: PANTOPRAZOLE 40 MG TABLET PO ×2 (08:51→21:12)
[2024-12-26] MEDS: SACUBITRIL/VALSARTAN 24-26 MG TABLET 0.5 TAB PO ×2 (08:51→21:11)
[2024-12-26] MEDS: FUROSEMIDE 40 MG TABLET PO ×2 (08:51→17:15)
[2024-12-26] MEDS: EMPAGLIFLOZIN 10 MG TABLET PO (08:52)
[2024-12-26] MEDS: AMIODARONE HCL 200 MG TABLET PO (08:52)
[2024-12-26] MEDS: POTASSIUM CHLORIDE 20 MEQ ER TABLET PO (08:52)
[2024-12-26] MEDS: METOPROLOL TARTRATE 12.5 MG TABLET PO (08:54)
[2024-12-26] MEDS: MIDODRINE HCL 2.5 MG TABLET 10 MG PO ×3 (08:54→17:14)
[2024-12-26] MEDS: ATORVASTATIN 10 MG TABLET 20 MG PO (08:54)
[2024-12-26] MEDS: SPIRONOLACTONE 25 MG TABLET PO (08:55)
[2024-12-26] MEDS: LIDOCAINE 5% PATCH 2 PATCH TRANSDERM (08:55)
[2024-12-26] MEDS: CYCLOBENZAPRINE HCL 10 MG TABLET PO (08:55)
[2024-12-26 11:48] LABS: Glucose Point of Care 274 mg/dl (65-105)
[2024-12-26] MEDS: NALOXONE HCL 0.4 MG/ML VIAL (14:06)
[2024-12-26 14:26] LABS: Glucose Point of Care 206 mg/dl (65-105)
[2024-12-26 14:29] LABS: Base Excess ABG 6.4 mmol/L (0-2); HCO3 ABG 31.2 mmol/L (23-29); Oxygen Saturation ABG 94.6 % (95-97); Oxyhemoglobin 93.3 % (94-100); PCO2 ABG 46.8 mmHg (35-45); PO2 ABG 80.1 mmHg (80-90); pH ABG 7.44 (7.35-7.45)
[2024-12-26 14:31] LABS: Site Drawn LEFT RADIAL
[2024-12-26 14:35] LABS: CPAP 8 cmH2O; Device CPAP
--- NOTE | 2024-12-26 14:44 | PC.NURSE ---
Cotton Chopper doing routine check on patient and patient was using abdominal muscles to breathe. Cotton Chopper checked VS and obtained BP 87/59 R 14 with rare periods of apnea, P 73 SPO2 98% in 3 L n/c T 97.2 Notified provider and provider ordered single dose of Narcan 0.4 IM and med was given STAT. Cotton Chopper witnessed no improvement with Narcan administration. Cotton Chopper obtained blood glucose and placed patient on personal CPAP devise to assist with respirations. MANAGING DIRECTOR ordered blood gasses to be drawn and a STAT CXR. Nurse notified patient's daughter and attempted to notify patient's . Patient's arrived at hospital and was updated on patient's change in condition.
--- NOTE | 2024-12-26 15:02 | PC.NURSE ---
During initial VS assessment as documented previously, investment underwriter checked blood sugar and the reading was 206.
[2024-12-26] MEDS: SODIUM CHLORIDE 0.9% IV 1,000 ML 75 ML (15:35)
--- NOTE | 2024-12-26 15:40 | PC.NURSE ---
Family at bedside. BP at 72/52. New order obtained for IV fluids at 75ml/hr. Nurses unable to obtain peripheral site. ED nurse called to unit to attempt.
--- NOTE | 2024-12-26 16:14 | PC.NURSE ---
22g started in RAC
[2024-12-26 16:36] LABS: Basophils Absolute Auto 0.03 K/mm3 (0.00-0.10); Basophils Percent Auto 0.2 % (0.0-1.0); Eosinophils Absolute Auto 0.05 K/mm3 (0.02-0.50); Eosinophils Percent Auto 0.4 % (1.0-6.0); Hematocrit 24.6 % (35.0-49.0); Immature Granulocyte Absolute 0.32 K/mm3 (0.00-0.00); Immature Granulocyte Percent A 2.4 % (0.0-0.0); Immature Platelet Fraction Pct 2.8 % (1.0-7.0); Lymphocytes Percent Auto 15.7 % (18.0-42.0); Mean Corpuscular HGB Conc 27.2 g/dL (32-36); Mean Corpuscular Hemoglobin 22.3 pg (27.0-31.0); Mean Platelet Volume 9.2 fl (9.2-11.8); Monocytes Absolute Auto 1.17 K/mm3 (0.10-0.90); Monocytes Percent Auto 8.8 % (2.0-11.0); Neutrophils Percent Auto 72.5 % (50.0-70.0); Nucleated Red Blood Cells Absolute Auto 0.34 K/mm3 (0.00-0.00); Nucleated Red Blood Cells Perc 2.5 % (0-0.0); Platelet Count Result 545 K/mm3 (150-420); Red Cell Distribution Width 20.2 % (11.6-14.4); White Blood Count 13.4 K/mm3 (4.8-10.8)
[2024-12-26 16:40] LABS: Hemoglobin 6.7 g/dL (12.0-15.0)
[2024-12-26 16:49] LABS: Alanine Aminotransferase 30 U/L (14-59); Alkaline Phosphatase 79 U/L (46-116); Anion Gap 0 mmol/L (4-12); Aspartate Amino Transferase 15 U/L (15-37); Bilirubin,Total 0.2 mg/dL (0.00-1.00); Blood Urea Nitrogen 37 mg/dL (7-18); Carbon Dioxide 36 mmol/L (21-32); Chloride 98 mmol/L (98-108); Estimated CRCL calculation 31 ml/min; Estimated Glomerular Filt Rate 38; Glucose 86 mg/dL (70-99); Osmolality Calculated 285 mOsm/kg (285-295); Potassium 5.7 mmol/L (3.5-5.1); Sodium 134 mmol/L (136-145); Total Protein 5.9 g/dL (6.4-8.2)
[2024-12-26] MEDS: SODIUM ZIRCONIUM CYCLOSILICATE 5 GM POWD.PACK PO ×2 (17:23→18:10)
[2024-12-26] MEDS: FERROUS SULFATE 325 MG TABLET DR PO (17:24)
[2024-12-26 18:28] LABS: Magnesium 2.7 mg/dL (1.8-2.4)
--- NOTE | 2024-12-26 18:46 | PM.TDS ---
Transfer Discharge Sum: Prov Provider Date of admission: 12/09/24 17:53 Primary care physician: Juni Hays, Admitting clinician: Pito Laguna MD Attending physician on admission: Osvaldo Laguna Attending physician on discharge: Osvaldo Laguna Discharging clinician: Ryanne Villarreal Anticipated date of transfer: 12/26/24 Receiving physician/facility: [facility] DS: Admitting Diagnosis Discharge Date 12/26/2014 Admitting Diagnosis REHAB/Swing bed DS: Discharge Diagnosis Discharge Diagnosis (1) GI bleed: Code(s): K92.2 - Gastrointestinal hemorrhage, unspecified Status: Acute (2) Atrial thrombus: Code(s): I51.3 - Intracardiac thrombosis, not elsewhere classified Status: Acute (3) Systolic CHF, acute on chronic: Code(s): I50.23 - Acute on chronic systolic (congestive) heart failure Status: Acute (4) Chronic anticoagulation: Code(s): Z79.01 - [facility] (current) use of anticoagulants Status: Acute (5) Type 2 diabetes mellitus with hyperglycemia: Code(s): E11.65 - Type 2 diabetes mellitus with hyperglycemia Status: Acute (6) Iron deficiency anemia: Code(s): D50.9 - Iron deficiency anemia, unspecified Status: Acute (7) Chronic hypoxemic respiratory failure: Code(s): J96.11 - Chronic respiratory failure with hypoxia Status: Acute (8) Hyperkalemia: Code(s): E87.5 - Hyperkalemia Status: Acute (9) Hypotension: Code(s): I95.9 - Hypotension, unspecified Status: Acute Plan Disposition: Discharge to tertiary hospital for GI consult for possible GI bleed Transfer Discharge Sum: Med Medications Active and Home Medications: Home Medications Dexcom G7 Sensor 12/04/23 [History Confirmed 12/09/24] aspirin 81 mg tablet,delayed release 81 mg PO DAILY 12/04/23 [History Confirmed 12/09/24] atorvastatin 20 mg tablet 20 mg PO DAILY 12/04/23 [History Confirmed 12/09/24] bisacodyl 10 mg rectal suppository 10 mg RECTAL DAILY PRN Constipation 12/04/23 [History Confirmed 12/09/24] cyclobenzaprine 5 mg tablet 10 mg PO TID PRN Muscle Spasms 12/04/23 [History Confirmed 12/09/24] ergocalciferol (vitamin D2) 25,000 unit capsule 50,000 unit PO WEEKLY 12/04/23 [History Confirmed 12/09/24] levothyroxine 125 mcg tablet 125 mcg PO DAILY 12/04/23 [History Confirmed 12/09/24] potassium chloride 20 mEq tablet,extended release 20 meq PO DAILY 12/04/23 [History Confirmed 12/09/24] pregabalin 75 mg capsule 75 mg PO BID 12/04/23 [History Confirmed 12/09/24] ropinirole 0.25 mg tablet 0.25 mg PO HS 12/04/23 [History Confirmed 12/09/24] sacubitril 24 mg-valsartan 26 mg tablet (Entresto) 0.5 tablet PO BID 12/04/23 [History Confirmed 12/09/24] ondansetron 4 mg disintegrating tablet 4 mg PO Q6H PRN Nausea And Vomiting #0 tabs 12/15/23 [Rx Confirmed 12/09/24] Anusol-HC 25 mg RECTAL DAILY PRN Hemorrhoids 08/30/24 [History Confirmed 12/09/24] acetaminophen 325 mg tablet 650 mg PO Q6H PRN Fever Or Pain 08/30/24 [History Confirmed 12/09/24] alendronate 70 mg tablet 70 mg PO WEEKLY 08/30/24 [History Confirmed 12/09/24] artifi.tears(hypromellose)(PF) 0.3 % eye drops 2 drp EACH EYE TID PRN Dry Eye(S) 08/30/24 [History Confirmed 12/09/24] bisacodyl 5 mg tablet,delayed release 10 mg PO DAILY PRN Constipation 08/30/24 [History Confirmed 12/09/24] buprenorphine 10 mcg/hour weekly transdermal patch 1 patch transdermal Q7D 08/30/24 [History Confirmed 12/09/24] calcium carbonate 1,000 mg PO TID PRN dyspepsia 08/30/24 [History Confirmed 12/09/24] empagliflozin 10 mg tablet 10 mg PO DAILY 08/30/24 [History Confirmed 12/09/24] furosemide 40 mg tablet 40 mg PO BID 08/30/24 [History Confirmed 12/09/24] hydrocortisone 2.5 % topical cream with perineal applicator 1 applic RECTAL QID PRN Hemorrhoids 08/30/24 [History Confirmed 12/09/24] metoprolol tartrate 25 mg tablet 12.5 mg PO BID 08/30/24 [History Confirmed 12/09/24] midodrine 10 mg tablet 10 mg PO TID 08/30/24 [History Confirmed 12/09/24] oxycodone 5 mg tablet 10 mg PO Q4H PRN Pain 08/30/24 [History Confirmed 12/09/24] pantoprazole 40 mg tablet,delayed release 40 mg PO BID 08/30/24 [History Confirmed 12/09/24] sodium chloride 0.65 % nasal spray aerosol (Saline Nasal) 2 spray intranasal Q2H PRN Dry Nasal Passages 08/30/24 [History Confirmed 12/09/24] metformin 500 mg tablet 500 mg PO BID #30 tabs 09/10/24 [Rx Confirmed 12/09/24] warfarin 1 mg tablet 1.5 mg (1.5 x 1 mg) PO WEEKLY #15 tabs 09/10/24 [Rx Confirmed 12/09/24] phenylephrine HCl 1 % nasal spray (Parish-Synephrine (phenylephrine)) 1 spray intranasal Q6H PRN nasal congestion 3 days #15 mL 10/20/24 [Rx Confirmed 12/09/24] amiodarone 200 mg tablet 200 mg PO DAILY 11/30/24 [History Confirmed 12/09/24] insulin glargine 100 unit/mL subcutaneous solution (Lantus U-100 Insulin) 35 unit subcut QAM 11/30/24 [History Confirmed 12/09/24] warfarin 2 mg tablet 2 mg PO DAILY 11/30/24 [History Confirmed 12/09/24] calcium 500 mg (as carbonate)-vitamin D3 200 unit-vit K2 90 mcg tablet 1 tablet PO DAILY 12/09/24 [History Confirmed 12/09/24] cyanocobalamin (vitamin B-12) 1,000 mcg/mL injection solution 1,000 mcg subcut MONTHLY 12/09/24 [History Confirmed 12/09/24] mirtazapine 15 mg disintegrating tablet 15 mg PO HS 12/09/24 [History Confirmed 12/09/24] polyethylene glycol 3350 17 gram oral powder packet (Miralax) 17 g PO DAILY 12/09/24 [History Confirmed 12/09/24] polyvinyl alcohol-povidone (PF) 1.4 %-0.6 % eye drops in a dropperette 2 drp EACH EYE Q4H PRN dry eye(s) 12/09/24 [History Confirmed 12/09/24] rizatriptan 10 mg tablet 10 mg PO Q2H 12/09/24 [History Confirmed 12/09/24] sennosides 8.6 mg-docusate sodium 50 mg tablet (Senna with Docusate Sodium) 1 tab-cap PO BID 12/09/24 [History Confirmed 12/09/24] spironolactone 25 mg tablet 25 mg PO QAM AND QHS 12/09/24 [History Confirmed 12/09/24] vancomycin 125 mg capsule 125 mg PO Q6H 12/09/24 [History Confirmed 12/09/24] Active Medications Acetaminophen (Acetaminophen 325 Mg Tablet) 650 mg PO Q6H PRN PRN Reason: Fever Or Pain 1-3 Last Admin: 12/23/24 20:33 Dose: 650 mg Alendronate Sodium (Alendronate Sodium 70 Mg Tablet) 70 mg PO WEEKLY@0630 [facility] Last Admin: 12/24/24 06:20 Dose: 70 mg Amiodarone HCl (Amiodarone Hcl 200 Mg Tablet) 200 mg PO DAILY [facility] Last Admin: 12/26/24 08:52 Dose: 200 mg Artificial Tears (Artificial Tears Ophth Soln 15 Ml Bottle) 2 drop EACH EYE TID PRN PRN Reason: Dry Eye(S) Aspirin (Aspirin 81 Mg Enteric Tablet) 81 mg PO DAILY [facility] Last Admin: 12/26/24 08:51 Dose: 81 mg Atorvastatin Calcium (Atorvastatin 10 Mg Tablet) 20 mg PO DAILY [facility] Last Admin: 12/26/24 08:54 Dose: 20 mg Bisacodyl (Bisacodyl 5 Mg Tablet Ec) 10 mg PO DAILY PRN PRN Reason: Constipation Bisacodyl (Bisacodyl 10 Mg Suppository) 10 mg RECTAL DAILY PRN PRN Reason: Constipation Calcium Carbonate (Calcium Carbonate (Tums) 500 Mg (200 Mg Elemental)) 400 mg PO TID PRN PRN Reason: dyspepsia Last Admin: 12/26/24 06:29 Dose: 400 mg Cyclobenzaprine HCl (Cyclobenzaprine Hcl 10 Mg Tablet) 10 mg PO TID PRN PRN Reason: Muscle Spasms Last Admin: 12/26/24 08:55 Dose: 10 mg Dextrose (Dextrose 50% 25 Gm/50 Ml Syringe) 12.5 gm IV PUSH PRN PRN; Protocol PRN Reason: Hypoglycemia Empagliflozin (Empagliflozin 10 Mg Tablet) 10 mg PO DAILY [facility] Last Admin: 12/26/24 08:52 Dose: 10 mg Ergocalciferol (Ergocalciferol 50,000 Units Capsule) 50,000 units PO WEEKLY [facility] Last Admin: 12/24/24 08:56 Dose: 50,000 units Ferrous Sulfate (Ferrous Sulfate [address]) 325 mg PO TID [facility] Last Admin: 12/26/24 17:24 Dose: 325 mg Furosemide (Furosemide 40 Mg Tablet) 40 mg PO BID [facility] Last Admin: 12/26/24 17:15 Dose: 40 mg Glucagon (Glucagon For Inj 1 Mg Vial) 1 mg IM PRN PRN; Protocol PRN Reason: Hypoglycemia Glucose (Glucose Oral Gel 15 Gm Of Glucse In 37.5 Gm Tube) 15 gm PO PRN PRN; Protocol PRN Reason: Hypoglycemia Dextrose (Dextrose 5% 1,000 Ml) 1,000 mls @ 100 mls/hr IVPB PRN PRN; Protocol PRN Reason: Hypoglycemia Sodium Chloride (Normal Saline Iv) 250 mls @ 30 mls/hr IV CONT .Q8H20M STA Stop: 12/27/24 01:17 Insulin Glargine (Insulin Glargine (*Bkc) 1,000 Units/10 Ml Vial) 35 units SUB-Q QAM [facility] Last Admin: 12/26/24 08:47 Dose: 35 units Insulin Human Lispro (Insulin Human Lispro (*Bkc) 1,000 Units/10 Ml Vial) 2 - 5 units SUB-Q TIDWM [facility]; Protocol Last Admin: 12/26/24 17:13 Dose: Not Given Insulin Human Lispro (Insulin Human Lispro (*Bkc) 1,000 Units/10 Ml Vial) 5 units SUB-Q TIDWM [facility] Last Admin: 12/26/24 17:15 Dose: Not Given Levothyroxine Sodium (Levothyroxine Sodium 100 Mcg Tablet) 100 mcg PO DAILY@0630 [facility] Last Admin: 12/26/24 06:23 Dose: 100 mcg Levothyroxine Sodium (Levothyroxine Sodium 25 Mcg Tablet) 25 mcg PO DAILY@0630 [facility] Last Admin: 12/26/24 06:23 Dose: 25 mcg Lidocaine (Lidocaine 5% Patch) 2 patch TRANSDERM DAILY [facility] Last Admin: 12/26/24 08:55 Dose: 2 patch Metformin HCl (Metformin Hcl 500 Mg Tablet) 500 mg PO BID [facility] Last Admin: 12/26/24 17:15 Dose: 500 mg Metoprolol Tartrate (Metoprolol Tartrate 12.5 Mg Tablet) 12.5 mg PO Q12HR [facility] Last Admin: 12/26/24 08:54 Dose: 12.5 mg Midodrine (Midodrine Hcl 2.5 Mg Tablet) 10 mg PO TID [facility] Last Admin: 12/26/24 17:14 Dose: 10 mg Mirtazapine (Mirtazapine 15 Mg Tablet) 15 mg PO [facility] Last Admin: 12/25/24 20:30 Dose: 15 mg * Home Med * Rizatriptan 10 Mg Tablet 10 mg PO Q2H PRN PRN Reason: Migraine Headache Stop: 01/11/25 15:49 Last Admin: 12/14/24 04:48 Dose: 10 mg Non-Formulary Medication (Buprenorphine) 1 patch TOPICAL Fr@0900 [facility] Stop: 01/23/25 16:34 Last Admin: 12/24/24 16:33 Dose: 1 patch Ondansetron HCl (Ondansetron Hcl Odt 4 Mg Tablet) 4 mg PO Q6H PRN PRN Reason: Nausea And Vomiting Last Admin: 12/26/24 12:03 Dose: 4 mg Oxycodone HCl (Oxycodone Hcl (*Crx) 5 Mg Tab Ir) 10 mg PO Q4H PRN PRN Reason: Pain 7-10 Last Admin: 12/26/24 12:48 Dose: 10 mg Pantoprazole Sodium (Pantoprazole 40 Mg Tablet) 40 mg PO Q12HR [facility] Last Admin: 12/26/24 08:51 Dose: 40 mg Polyethylene Glycol (Polyethylene Glycol 3350 17 Gm Powd.Pack) 17 gm PO DAILY PRN PRN Reason: constipation Pregabalin (Pregabalin (*Crx) 25 Mg Capsule) 75 mg PO BID [facility] Last Admin: 12/26/24 17:13 Dose: 75 mg Ropinirole HCl (Ropinirole Hcl 0.25 Mg Tablet) 0.25 mg PO [facility] Last Admin: 12/25/24 20:29 Dose: 0.25 mg Sacubitril/Valsartan (Sacubitril/Valsartan 24-26 Mg Tablet) 0.5 tab PO Q12HR [facility] Last Admin: 12/26/24 08:51 Dose: 0.5 tab Senna/Docusate Sodium (Senna/Docusate Sodium Tablet) 1 tab PO BID PRN PRN Reason: Constipation Sodium Chloride (Saline 0.65% Alexy Soln 44 Ml Btl) 2 spray NASAL Q2H PRN PRN Reason: Dry Nasal Passages Sodium Zirconium Cyclosilicate (Sodium Zirconium Cyclosilicate 5 Gm Powd.Pack) 5 gm PO BID@1000,1800 [facility] Last Admin: 12/26/24 18:10 Dose: 5 gm Spironolactone (Spironolactone 25 Mg Tablet) 25 mg PO Q12HR [facility] Last Admin: 12/26/24 08:55 Dose: 25 mg Warfarin Sodium (Warfarin (*Pbkc) 2.5 Mg Tablet) 2.5 mg PO MoTuWeThFr@1700 [facility] Last Admin: 12/24/24 16:17 Dose: 2.5 mg Transfer Discharge Sum: Hosp Hospital Course Hospital course: Initial admission: This was a 59 one year old female with a significant past medical history of Atrial fibrillation, type 2 diabetes mellitus, depression, anxiety, chronic back pain, arthritis, hypertension, hyperlipidemia, fibromyalgia, migraine, thyroid cancer, hypothyroidism, coronary artery disease, sleep apnea, restless legs syndrome, irritable bowel syndrome, osteoporosis, GERD, congestive heart failure, former smoker who presents to [facility] program for rehab. Patient recently had barostim placement surgery on 11/18/2024 at [facility] for her chronic combined systolic and diastolic heart failure. following surgery patient was admitted to [facility] for rehab however during her admission she developed chest pain and some concern for N STEMI with elevated troponins patient was transferred to [facility] for further evaluation and treatment with a consult to Cardiology. Patient was ruled out for ACS event but was found to have a new atrial thrombosis currently already on Coumadin but had not been therapeutic. no cardiac interventions were done at [facility] but she was seen by Physical and Occupational therapy who recommended continued physical and occupational therapy. Patient was then transferred via ambulance back to [place] swing bed for continued rehab. During patient's stay she was slowly progressing with physical therapy however on day of transfer patient was found to be more lethargic with generalized weakness initially had some concerns for respiratory distress could have been secondary to narcotic use as well as patient has a tendency to remove her supplemental oxygen that she wears chronically. Patient was initially given Narcan and ABG PH: 7.44/pCO2 46.8/Po2 80.1/HCO3 31.2, and CXR Bibasilar subsegmental atelectasis/consolidation. Possible small bilateral effusions. a CBC/CMP was ordered for further evaluation due to patient's hypotension which was 70/53 what which time patient was found to have a hemoglobin of 6.7 initial baseline is around 9. patient has history of chronic anticoagulation use on Coumadin due to current atrial thrombosis and previous atrial fib. patient was in sinus rhythm, afebrile and at 100% oxygen saturation on her 3 L nasal cannula. patient was given 500 mL bolus NS and responded well BP came up to 83/56 of note patient has history of hypotension and systolic is usually around 100 currently on midodrine. 1 unit PRBCs was ordered and administered patient's BP improved to 93/60. spoke with [facility] transfer line family was requesting transfer to [facility] for anemia workup however [facility] did not have GI services on however [facility] did. Spoke with Dr. Hardin for admission to the ICU for further anemia evaluations and treatment. of note did a CT abdomen/pelvis /chest there was a new acute inferior sternal fracture unknown cause. Plan for ICU admission if patient continued to be hypotensive with possible need for pressors would be unable to continue with aggressive IV fluids due to CHF with cardiomyopathy EF around 30%. patient was accepted and discharged to [facility] via [facility]. Time Spent with Patient Time attestation: Total time spent providing and/or coordinating transfer services: Total time spent: Greater than 30 minutes Exam Narrative: General: Lethargic with intermittent confusion today Cardiac: Normal S1 and S2. No murmur, gallops or friction rubs, Cap refill sluggish. Respiratory: Lungs clear to auscultation, no adventitious lung sounds, currently on 3L NC Gastrointestinal: soft, non-distended, non-tender, normoactive bowel sounds. : voiding without difficulty. Neuro: Alert and oriented x2 to 3 Const: Other: Lethargic DS: Data Data Completed and Pending Labs on day of discharge: Labs from last 24 hours 12/26/24 12/26/24 12/26/24 16:58 16:27 14:25 WBC 13.4 H RBC 3.00 L Hgb 6.7 L* Hct 24.6 L MCV 82.0 MCH 22.3 L MCHC 27.2 L RDW 20.2 H Plt Count 545 H MPV 9.2 Immature Gran % (Auto) 2.4 H Neut % (Auto) 72.5 H Lymph % (Auto) 15.7 L [place] % (Auto) 8.8 Eos % (Auto) 0.4 L Baso % (Auto) 0.2 Lymph # (Auto) 2.10 [place] # (Auto) 1.17 H Eos # (Auto) 0.05 Baso # (Auto) 0.03 Abs Immat Gran (auto) 0.32 H Absolute Neuts (auto) 9.70 H Absolute Nucleated RBC 0.34 H Nucleated RBC % 2.5 H % Immature Plt Fraction 2.8 PT INR Puncture Site Left radial ABG pH 7.44 ABG pCO2 46.8 H ABG pO2 80.1 ABG HCO3 31.2 H ABG O2 Saturation 94.6 L ABG Base Excess 6.4 H Oxyhemoglobin 93.3 L O2 Delivery Device Cpap O2 Liters/Min 3.0 Expiratory Pressure Not Reportable Inspiratory Pressure Not Reportable CPAP 8 Sodium 134 L Potassium 5.7 H Chloride 98 Carbon Dioxide 36 H Anion Gap 0 L BUN 37 H Creatinine 1.40 H Estim Creat Clear Calc 31 Estimated GFR 38 L Glucose 86 POC Capillary Glucose Calculated Osmolality 285 Calcium 8.0 L Magnesium 2.7 H Total Bilirubin 0.2 AST 15 ALT 30 Alkaline Phosphatase 79 Total Protein 5.9 L Albumin 3.0 L Blood Type A Positive Antibody Screen Negative Crossmatch See Detail 12/26/24 12/26/24 12/26/24 14:20 11:37 07:40 WBC RBC Hgb Hct MCV MCH MCHC RDW Plt Count MPV Immature Gran % (Auto) Neut % (Auto) Lymph % (Auto) [place] % (Auto) Eos % (Auto) Baso % (Auto) Lymph # (Auto) [place] # (Auto) Eos # (Auto) Baso # (Auto) Abs Immat Gran (auto) Absolute Neuts (auto) Absolute Nucleated RBC Nucleated RBC % % Immature Plt Fraction PT INR Puncture Site ABG pH ABG pCO2 ABG pO2 ABG HCO3 ABG O2 Saturation ABG Base Excess Oxyhemoglobin O2 Delivery Device O2 Liters/Min Expiratory Pressure Inspiratory Pressure CPAP Sodium Potassium Chloride Carbon Dioxide Anion Gap BUN Creatinine Estim Creat Clear Calc Estimated GFR Glucose POC Capillary Glucose 206 H 274 H 216 H Calculated Osmolality Calcium Magnesium Total Bilirubin AST ALT Alkaline Phosphatase Total Protein Albumin Blood Type Antibody Screen Crossmatch 12/26/24 12/25/24 06:23 20:39 WBC RBC Hgb Hct MCV MCH MCHC RDW Plt Count MPV Immature Gran % (Auto) Neut % (Auto) Lymph % (Auto) [place] % (Auto) Eos % (Auto) Baso % (Auto) Lymph # (Auto) [place] # (Auto) Eos # (Auto) Baso # (Auto) Abs Immat Gran (auto) Absolute Neuts (auto) Absolute Nucleated RBC Nucleated RBC % % Immature Plt Fraction PT 22.4 H INR 2.2 Puncture Site ABG pH ABG pCO2 ABG pO2 ABG HCO3 ABG O2 Saturation ABG Base Excess Oxyhemoglobin O2 Delivery Device O2 Liters/Min Expiratory Pressure Inspiratory Pressure CPAP Sodium Potassium Chloride Carbon Dioxide Anion Gap BUN Creatinine Estim Creat Clear Calc Estimated GFR Glucose POC Capillary Glucose 184 H Calculated Osmolality Calcium Magnesium Total Bilirubin AST ALT Alkaline Phosphatase Total Protein Albumin Blood Type Antibody Screen Crossmatch Imaging Radiologist's impression: EXAMINATION: CT chest abdomen pelvis wo con DATE: 12/26/2024 18:04 INDICATION: Anemia/hypotension/sob . TECHNIQUE: Computed tomography (CT) of the chest, abdomen, and pelvis was performed without intravenous contrast. Automated exposure control and iterative reconstruction technique were employed. The dose-length product was 758.18 mGy-cm. COMPARISON: X-ray chest, same date: CTPA 12/04/2024; CT abdomen pelvis 07/06/2012. FINDINGS: CHEST: Thoracic aorta: No significant dilation. No dissection. Mild atherosclerotic calcification. Lung parenchyma and airways: Right hemidiaphragm elevation. Low volumes. Mild septal thickening and scattered groundglass opacities. Mid and lower lung bandlike opacities likely representing scar/atelectasis. Patent airways. Thoracic inlet, axillae and chest wall: Left chest pacer/AICD and right chest tube radiopaque create considerable metallic artifact. Mediastinum: No mass or lymphadenopathy. Dilated central pulmonary arteries, as can be seen with pulmonary arterial hypertension. Heart and pericardium: Enlarged heart. No pericardial effusion. Coronary artery calcifications: Mild. Pleura: No effusion or mass. Thoracic bones: No acute osseous finding in the chest. Partially visualized cervical fusion hardware. Inferior sternal fracture, with a somewhat crumpled, multi segmental appearance. Multilevel vertebroplasty cement. Uncomplicated appearing thoracolumbar fusion hardware. Multilevel stable compression deformities in the thoracic spine. Multiple chronic left-sided rib fractures. ABDOMEN/PELVIS: Liver: Grossly stable right liver lobe mass with posttreatment change. Biliary/Gallbladder: Gallbladder is absent. No bile duct dilation. Pancreas: No mass or duct dilation. Spleen: Normal. Adrenals:No mass. Kidneys: No suspicious mass, obstructing stone, or hydronephrosis. GI tract: No small or large bowel dilation. Fecal content in the distal small bowel. Normal appendix. Mesentery/Peritoneum: No ascites, mass, or free air. Retroperitoneum: No mass Pelvis: Distended urinary bladder. Absent uterus. Atrophic left ovary. Right ovary not visualized. Soft Tissues: Soft tissues and body wall unremarkable. Abdominopelvic bones: No acute osseous finding in the abdomen/pelvis. Status post right hip pinning. Status post anterior fusion in the lower lumbar spine with fractures of the inferior screws, a chronic finding. Interbody devices in good position. Extensive posterior thoracolumbar fusion and bilateral SI joint fixation, without obvious complication. Multilevel lumbar compression deformities. Multiple chronic appearing pelvic fractures. IMPRESSION: Mild interstitial edema. Extensive bandlike areas of atelectasis in the lungs. Chronic right hemidiaphragm elevation. Acute inferior sternal fracture (new since the 12/04/2024 examination). Grossly stable right liver lobe mass with likely chemoembolization changes. Fecal content in the distal small bowel, without overt findings of obstruction, may represent decreased transit time. Distended urinary bladder, correlate for urinary retention. Multilevel lumbar compression deformities, presumed chronic although no recent comparison is available. Correlate for pain/tenderness. Additional Comments Additional comments: -Patient's previous records reviewed on admission -ER notes reviewed in detail on admission -discussed all findings and current treatment plan with patient/Family/POA -Consultations reviewed for recommendations -Patient's disposition for safe discharge discussed with showcase trimmer Dictation performed by [employer] direct speech recognition software, therefore care director variants and typographical errors may occur.
[2024-12-26] MEDS: SODIUM CHLORIDE 0.9% IV 250 ML 30 ML IV CONT (19:00)
--- NOTE | 2024-12-26 19:26 | PC.NURSE ---
Blood administration under way. Patient tolerating well.
--- NOTE | 2024-12-26 20:30 | PC.NURSE ---
Spoke with Jose from [facility] transfer center, patient has been accepted to [facility], awaiting room number. Xray to provide disk of scans.
--- NOTE | 2024-12-26 20:57 | PC.NURSE ---
Call received from Jose at [facility] transfer center, patient has been accepted to [facility] ICU Bed 5, attending Physician Dr. Hardin. Call placed to [facility] for ALS transfer, awaiting ambulance arrival. Call placed to [facility] ICE
--- NOTE | 2024-12-26 21:00 | PC.NURSE ---
Call received from Jose at [facility] transfer center, patient has been accepted to [facility] ICU Bed 5, attending Physician Dr. Hardin. Call placed to [facility] for ALS transfer, awaiting ambulance arrival. Call placed to [facility] ICU, , report given to RAMYA Ugarte
[2024-12-26] MEDS: rOPINIRole HCL 0.25 MG TABLET PO (21:11)
[2024-12-26] MEDS: MIRTAZAPINE 15 MG TABLET PO (21:12)
== END 2024-12-26 21:35 | disposition short-term general hospital (02) | DRG 948 ==
PROVIDERS: Nurse Practitioner Family; Admitting Provider Internal Medicine; PCP Internal Medicine; Visit Provider Nurse Practitioner Acute Care
DX: R53.1 Weakness (principal); S22.20XA Unspecified fracture of sternum, initial encounter for closed fracture; I50.42 Chronic combined systolic (congestive) and diastolic (congestive) heart failure; I48.20 Chronic atrial fibrillation, unspecified; I42.9 Cardiomyopathy, unspecified; J96.11 Chronic respiratory failure with hypoxia; A04.72 Enterocolitis due to Clostridium difficile, not specified as recurrent; M47.12 Other spondylosis with myelopathy, cervical region; K92.2 Gastrointestinal hemorrhage, unspecified; I51.3 Intracardiac thrombosis, not elsewhere classified; I11.0 Hypertensive heart disease with heart failure; I95.9 Hypotension, unspecified; I25.10 Atherosclerotic heart disease of native coronary artery without angina pectoris; D50.9 Iron deficiency anemia, unspecified; E11.42 Type 2 diabetes mellitus with diabetic polyneuropathy; E87.5 Hyperkalemia; E78.5 Hyperlipidemia, unspecified; E03.9 Hypothyroidism, unspecified; K58.9 Irritable bowel syndrome, unspecified; K21.9 Gastro-esophageal reflux disease without esophagitis; Y92.230 Patient room in hospital as the place of occurrence of the external cause; W19.XXXA Unspecified fall, initial encounter; M19.90 Unspecified osteoarthritis, unspecified site; M79.7 Fibromyalgia; M47.22 Other spondylosis with radiculopathy, cervical region; M81.0 Age-related osteoporosis without current pathological fracture; M54.9 Dorsalgia, unspecified; G89.29 Other chronic pain; G47.33 Obstructive sleep apnea (adult) (pediatric); G25.81 Restless legs syndrome; F32.A Depression, unspecified; F41.9 Anxiety disorder, unspecified; Z87.891 Personal history of nicotine dependence; Z85.850 Personal history of malignant neoplasm of thyroid; Z98.1 Arthrodesis status; Z79.82 Long term (current) use of aspirin; Z79.01 Long term (current) use of anticoagulants
CPT/HCPCS: 36415; 36430; 36600; 71045; 71250; 72100; 73501; 73562; 74176; 80053; 82805; 82948; 83735; 85025; 85027; 85055; 85610; 86850; 86900; 86901; 86920; 97110; 97112; 97161; 97166; 97530; 97535; A9270; J1815; J2310; J7030; J7050; P9016